=== PATIENT | female | born 1970 | race Two or more races ===

== ENCOUNTER 2020-03-30 15:08 | Outpatient (REF) | payer OTHER, SELFPAY | END 2020-03-30 15:09 | disposition home or self-care (01) | LOC: HO.LAB 15:08 | PROVIDERS: PCP Internal Medicine; Visit Provider Internal Medicine | DX: Z20.828 Contact with and (suspected) exposure to other viral communicable diseases (principal) | CPT/HCPCS: 87635 ==

== ENCOUNTER 2020-06-23 13:29 | Outpatient (REF) | payer OTHER, SELFPAY ==
[2020-06-23 17:15] LABS: Glucose Urine UA NEG (NEG); Leukocyte Esterase Urine NEG (NEG); Nitrite Urine NEG (NEG); PH 7.5 (5.0-8.0); Specific Gravity - Urine 1.015 (1.005-1.025); Urine Blood 2+ (NEG); Urine Ketones NEG (NEG); Urine Protein NEG (NEG-TRACE)
[2020-06-23 17:21] LABS: Appearance Urine CLEAR; Color Urine YELLOW
[2020-06-23 17:48] LABS: Mucus Urine 1+ /LPF; Squamous Epithelial Cell Urine 1+ /LPF; WBC Urine 0-2 /HPF (0-4)
[2020-06-24 09:14] LABS: BV Int Neg Control Negative (Negative); BV Int Pos Control Positive (Positive)
[2020-06-24 21:32] LABS: C. trachomatis RNA TMA NOT DETECTED (NOT DETECTED); N. gonorrhoeae RNA TMA NOT DETECTED (NOT DETECTED)
[2020-07-12 21:52] LABS: HPV mRNA E6/E7 rflx Not Detected (Not Detected)
== END 2020-06-23 13:30 | disposition home or self-care (01) ==
LOC: HO.LAB 13:29
PROVIDERS: PCP Internal Medicine; Visit Provider Advanced Practice Midwife
DX: Z01.419 Encounter for gynecological examination (general) (routine) without abnormal findings (principal); L85.3 Xerosis cutis; R30.0 Dysuria; N95.1 Menopausal and female climacteric states; B37.3 Candidiasis of vulva and vagina; Z20.2 Contact with and (suspected) exposure to infections with a predominantly sexual mode of transmission
CPT/HCPCS: 36415; 81001; 81003; 87480; 87491; 87510; 87591; 87624; 87660; 88141; 88142

== ENCOUNTER 2020-08-02 16:25 | Emergency (ER) | payer OTHER, SELFPAY | END 2020-08-02 18:24 | disposition left against medical advice (07) | PROVIDERS: Emergency Provider Emergency Medicine; PCP Internal Medicine | DX: R51.9 Headache, unspecified (principal); M79.10 Myalgia, unspecified site ==

== ENCOUNTER 2020-09-10 15:51 | Emergency (ER) | payer OTHER, SELFPAY ==
[2020-09-10 16:16] VITALS: BP 145/100; PULSE 94; RESP 16; TEMP 37.3; O2SAT 97; BMI 27.3
[2020-09-10 16:24] LABS: COVID-19 Test Positive (Negative); IDNOW Serial# 9DD0AD1C
== END 2020-09-10 19:02 | disposition left against medical advice (07) ==
PROVIDERS: Emergency Provider Emergency Medicine; PCP Internal Medicine
DX: Z20.822 Contact with and (suspected) exposure to COVID-19 (principal)
CPT/HCPCS: 36415; 87635; 99282

== ENCOUNTER 2020-09-22 20:11 | Emergency (ER) | payer OTHER, SELFPAY ==
--- NOTE | ~2020-09-22 | XR_ITS ---
EXAMINATION: XR CHEST CLINICAL INFORMATION: Chest pain COMPARISON: 12/24/2014 TECHNIQUE: Frontal view of the chest was obtained. FINDINGS: No significant abnormality is noted involving the heart, lungs, mediastinum, bony thorax or soft tissues. Again noted are calcified granulomas in the right upper lobe. XR/XR chest 1V IMPRESSION: Unremarkable examination.
[2020-09-22 20:48] VITALS: BP 148/87; PULSE 89; RESP 20; TEMP 37.3; O2SAT 99; BMI 27.6
--- NOTE | 2020-09-22 21:26 | ECG_ITS ---
Test Reason : SOB Blood Pressure : / mmHG Vent. Rate : 066 BPM Atrial Rate : 066 BPM P-R Int : 142 ms QRS Dur : 082 ms QT Int : 388 ms P-R-T Axes : 056 036 004 degrees QTc Int : 406 ms Normal sinus rhythm Minimal voltage criteria for LVH, may be normal variant Nonspecific ST abnormality Abnormal ECG When compared to the previous EKG of No significant changes seen Referred By: Ayana Beck Electronically Signed By:MARILU MANN MD
--- NOTE | 2020-09-22 21:27 | ED_ITS ---
HPI - Chest Pain General Chief Complaint: Dyspnea Stated Complaint: SOB Time Seen by Provider: 09/22/20 21:26 Source: patient and heritage consultant Mode of arrival: ambulatory History of Present Illness HPI narrative: This is a 49-year-old female with past medical history significant for hypertension, fibromyalgia, asthma who was diagnosed with COVID- 19 on 09/09 in states that she has been having tingling in bilateral upper extremities for over the course of the past 2 weeks but now presents with complaints of sharp, nonradiating, chest pain since yesterday that she states has worsened. It increases with deep inspiration and is associated with dizziness/diaphoresis/SOB/nausea, but she denies any association with exertion or movement. She denies any calf swelling/pain. Patient took a single pill of prednisone that she states she had left over from a prior asthma exacerbation. Related Data Home Medications Medication Instructions Recorded Confirmed cholecalciferol (vitamin D3) 50 50 mcg PO DAILY 03/18/20 08/19/20 mcg (2,000 unit) tablet fenofibrate 54 mg tablet 54 mg PO DAILY 03/18/20 08/19/20 ipratropium 20 mcg-albuterol 100 1 PO QID 03/18/20 08/19/20 mcg/actuation mist for inhalation Previous Rx's Medication Instructions Recorded hydrochlorothiazide 25 mg tablet 25 mg PO DAILY 30 Days #30 tab 05/28/20 tizanidine 4 mg capsule 4 mg PO BEDTIME 20 Days #20 cap 06/08/20 albuterol sulfate 90 mcg/actuation 2 puff PO Q4H PRN 30 Days #8.5 g 06/15/20 aerosol inhaler albuterol sulfate 90 mcg/actuation 2 puff INHALATION Q4-6H PRN 30 07/02/20 aerosol inhaler Days #18 g kbwiprdrjx-hxghbzcxwxoqh-rhgmgjzt 1 tab PO ONCE PRN 30 Days #30 tab 08/31/20 50 mg-325 mg-40 mg tablet clonazepam 0.5 mg tablet 0.5 mg PO BID PRN 30 Days #60 tab 08/31/20 tramadol 50 mg tablet 50 mg PO Q8H PRN 30 Days #90 tab 09/10/20 ipratropium 20 mcg-albuterol 100 1 puff PO QID 30 Days #4 ml 09/14/20 mcg/actuation mist for inhalation Allergies Allergy/AdvReac Type Severity Reaction Status Date / Time amitriptyline Allergy Unknown headache Verified 07/22/20 16:37 ibuprofen [From Motrin] Allergy Unknown ITCHY RASH Verified 07/22/20 16:37 Motrin Allergy Unknown rash/itchy, Verified 07/22/20 16:37 itchy rash Review of Systems Review of Systems: Pertinent positives and negatives as stated in HPI 10 point review of systems is otherwise negative. PMFSH Past Medical History Source: nursing notes reviewed Medical History Anxiety Cervical cancer screening Depression Dyslipidemia Epigastric pain Essential hypertension Fibromyalgia GERD (gastroesophageal reflux disease) HTN (hypertension) Migraine Right lower quadrant pain Surgical History H/O LEEP H/O tubal ligation History of breast lump/mass excision History of lithotripsy Family History Family History Father Myocardial infarction Mother Lung cancer Brother Liver cancer Maternal Grandfather Stomach cancer Maternal Grandmother No problems noted. Social History Social History Alcohol intake: never Smoking Status: Current some day smoker Tobacco Type: Cigarette Cigarettes Per Day: 3 Advance Directives: No Advance Directives Information Provided: No Gender identity: female Physical Exam Vital Signs: Vital Signs: Last Vital Signs Temp 98.8 F 09/22/20 22:12 Pulse 76 09/22/20 22:12 Resp 14 09/22/20 22:12 BP 124/82 09/22/20 22:12 Pulse Ox 95 09/22/20 22:12 Body Mass Index 27.6 VITAL SIGNS: Reviewed. GENERAL: Well developed, well nourished, in no acute distress. HEAD: Normocephalic/atraumatic, EYES: PERRLA, EOMI EARS: Ext canals without abnormality NOSE: Nares patent bilateral OROPHARYNX: no oral lesions noted, posterior pharynx clear NECK: Supple, no adenopathy LUNGS: Normal breath sounds, no wheezing, no tachypnea SpO2<99> CARDIOVASCULAR: Regular rate and rhythm without noted murmurs ABDOMEN: Soft, non-tender, non-distended with bowel sounds. NEUROLOGIC: Alert and oriented x 4. Course Course Course Narrative: 49-year-old female with history and clinical presentation most suggestive of GERD and may be pleurisy but no evidence to suggest cardiopulmonary in etiology to include low clinical suspicion for PE. However, will evaluate for cardiopulmonary etiology. Review of all investigations other than a mild hypokalemia which was treated with 60 mEq of potassium chloride and instructions to follow-up with her primary care provider and to continue with all medications for her underlying medical conditions. Of all results and findings at bedside and discharged in stable condition. MDM - Chest Pain Lab Data Result diagrams: 09/22/20 21:49 09/22/20 21:49 Labs: Lab Results 09/22/20 09/22/20 09/22/20 Range/Units 21:49 21:49 21:49 WBC 12.8 H (4.8-10.8) X10*3/uL RBC 4.75 (4.20-5.50) X10*6/uL Hgb 12.6 (12.0-16.0) g/dl Hct 39.6 (37-47) % MCV 83.4 (80-98) fL MCH 26.5 L (27.0-33.0) pg MCHC 31.8 (31.0-35.0) g/dl RDW 14.5 (11.0-16.0) % Plt Count 283 (160-400) X10*3/uL MPV 9.9 (9.4-12.3) fL Immature Gran % (Auto) 0.5 H (0.0-0.4) % Neut % (Auto) 76.7 H (45-73) % Lymph % (Auto) 17.8 L (20-40) % Cobb % (Auto) 4.2 (2-11) % Eos % (Auto) 0.5 (0-4) % Baso % (Auto) 0.3 (0-2) % Lymph # (Auto) 2.3 (1.2-4.9) X10*3/uL Cobb # (Auto) 0.5 (0.1-1.2) X10*3/uL Eos # (Auto) 0.1 (0.0-0.4) X10*3/uL Baso # (Auto) 0.0 (0.0-0.2) X10*3/uL Abs Immat Gran (auto) 0.06 H (0.00-0.03) X10*3/uL Absolute Neuts (auto) 9.8 H (2.0-8.3) X10*3/uL Absolute Nucleated RBC 0.000 (0.0-0.012) X10*3/uL Nucleated RBC % (auto) 0.0 (0.0-0.2) /100WBC Sodium 140 (135-145) mmol/L Potassium 3.0 L (3.3-5.1) mmol/L Chloride 101 (96-108) mmol/L Carbon Dioxide 29 (22-29) mmol/L Anion Gap 13 (12-20) BUN 21 H (9-16) mg/dL Creatinine 1.06 (0.5-1.4) mg/dL Estim Creat Clear Calc 61.4 Estimated GFR 55 Random Glucose 106 (60-115) mg/dL Calcium 8.8 (8.4-10.2) mg/dL Total Bilirubin 0.2 (0.0-1.0) mg/dL AST 14 (5-31) U/L ALT 23 (0-31) U/L Alkaline Phosphatase 117 (39-117) U/L Troponin I High Sens < 3.5 (<3.5-17.0) ng/L Total Protein 7.5 (6.5-8.0) g/dL Albumin 4.1 (3.5-5.0) g/dL ECG Data ECG #1: Attestation: I personally reviewed and interpreted this ECG as follows: Prior ECG tracings: not available for review (Computers not linked) Interpretation: Normal sinus rhythm, HR -66, no evidence of acute ischemia, AR/QRS/QTC are within normal limits. Discharge Plan Discharge Clinical Impression: Atypical chest pain, Pleurisy, Hypokalemia Patient Disposition: Home, Self-Care Instructions: Chest Wall Pain (ED), Pleurisy (ED), Hypokalemia (ED) Additional Instructions: 1. Reanude todos los medicamentos caseros seg?n lo prescrito. 2. Yael un seguimiento con lopez proveedor de atenci?n primaria en los pr?ximos 1-2 d?as llamando al consultorio. 3. Utilice Tylenol / ibuprofeno de venta jess brown se indica en el empaque exterior para ron s?ntomas persistentes. No dude en regresar al departamento de emergencias si desarrolla un empeoramiento talya de ron s?ntomas. Prescriptions: No Action hydrochlorothiazide 25 mg tablet 25 mg PO DAILY 30 Days Qty: 30 RF: 11 albuterol sulfate 90 mcg/actuation HFA aerosol inhaler 2 puff PO Q4H PRN (Reason: bronchospasm) 30 Days Qty: 8.5 RF: 6 albuterol sulfate [Ventolin HFA] 90 mcg/actuation HFA aerosol inhaler 2 puff inhalation Q4-6H PRN (Reason: bronchospasm) 30 Days Qty: 18 RF: 6 clonazepam 0.5 mg tablet 0.5 mg PO BID PRN (Reason: anxiety) 30 Days Qty: 60 RF: 0 truuwavlzr-bqvilksfchmlm-jvrv 50-325-40 mg tablet 1 tab PO ONCE PRN (Reason: pain) 30 Days Qty: 30 RF: 0 tramadol 50 mg tablet 50 mg PO Q8H PRN (Reason: pain) 30 Days Qty: 90 RF: 0 Combivent Respimat 20-100 mcg/actuation mist 1 puff PO QID 30 Days Qty: 4 RF: 3 tizanidine 4 mg capsule 4 mg PO BEDTIME 20 Days Qty: 20 RF: 0 cholecalciferol (vitamin D3) 50 mcg (2,000 unit) tablet 50 mcg PO DAILY RF: 0 fenofibrate 54 mg tablet 54 mg PO DAILY RF: 0 Combivent Respimat 20-100 mcg/actuation mist 1 PO QID RF: 0 Referrals: Neyda Foster MD [Primary Care Provider] - 2 days (Re-evaluation after seen for pleuritic type chest pain and negative workup (mild leukocytosis likely se condary to patient taking a single tablet of prednisone). Found to be mildly hypokalemic.) Print Language: Chinese
[2020-09-22 21:53] LABS: MANUAL DIFF FLAG NO
[2020-09-22 21:56] LABS: Basophils Percent Auto 0.3 % (0-2); Eosinophils Absolute Auto 0.1 X10*3/uL (0.0-0.4); Eosinophils Percent Auto 0.5 % (0-4); Hematocrit 39.6 % (37-47); Hemoglobin 12.6 g/dl (12.0-16.0); Imm Gran Abs Auto 0.06 X10*3/uL (0.00-0.03); Imm Gran Pct Auto 0.5 % (0.0-0.4); Lymphocytes Absolute Auto 2.3 X10*3/uL (1.2-4.9); Lymphocytes Percent Auto 17.8 % (20-40); Mean Corpuscular HGB Conc 31.8 g/dl (31.0-35.0); Mean Corpuscular Hemoglobin 26.5 pg (27.0-33.0); Mean Corpuscular Volume 83.4 fL (80-98); Mean Platelet Volume 9.9 fL (9.4-12.3); Monocytes Absolute Auto 0.5 X10*3/uL (0.1-1.2); Monocytes Percent Auto 4.2 % (2-11); Neutrophils Absolute Auto 9.8 X10*3/uL (2.0-8.3); Neutrophils Percent Auto 76.7 % (45-73); Platelet Count 283 X10*3/uL (160-400); Red Blood Count 4.75 X10*6/uL (4.20-5.50); Red Cell Distribution Width 14.5 % (11.0-16.0); White Blood Count 12.8 X10*3/uL (4.8-10.8)
[2020-09-22 22:12] VITALS: BP 124/82; PULSE 76; RESP 14; TEMP 37.1; O2SAT 95
[2020-09-22 22:24] LABS: Alanine Aminotransferase 23 U/L (0-31); Albumin Level 4.1 g/dL (3.5-5.0); Alkaline Phosphatase 117 U/L (39-117); Anion Gap 13 (12-20); Aspartate Amino Transferase 14 U/L (5-31); Bilirubin Total 0.2 mg/dL (0.0-1.0); Blood Urea Nitrogen 21 mg/dL (9-16); Calcium 8.8 mg/dL (8.4-10.2); Carbon Dioxide 29 mmol/L (22-29); Chloride 101 mmol/L (96-108); Creatinine Clr Calc Pharmacy 61.4; Estimated Glomerular Filt Rate 55; Glucose Random 106 mg/dL (60-115); Sodium 140 mmol/L (135-145); Total Protein 7.5 g/dL (6.5-8.0)
[2020-09-22 22:30] LABS: Troponin-I High Sensitivity < 3.5 ng/L (<3.5-17.0)
[2020-09-22] MEDS: Potassium Chloride ER 20 MEQ TAB.ER.PRT 60 MEQ PO (23:26)
== END 2020-09-22 23:26 | disposition home or self-care (01) ==
PROVIDERS: Emergency Provider Student in an Organized Health Care Education/Training Program; PCP Internal Medicine
DX: R06.02 Shortness of breath (principal); R09.1 Pleurisy; E87.6 Hypokalemia; F17.210 Nicotine dependence, cigarettes, uncomplicated; Z71.6 Tobacco abuse counseling; Z79.899 Other long term (current) drug therapy
CPT/HCPCS: 36415; 71045; 80053; 84484; 85025; 93005; 99283; 99284

== ENCOUNTER 2020-09-27 14:31 | Outpatient (REF) | payer OTHER, SELFPAY | END 2020-09-27 14:32 | disposition home or self-care (01) | LOC: HO.LAB 14:31 | PROVIDERS: Visit Provider Internal Medicine | DX: Z20.822 Contact with and (suspected) exposure to COVID-19 (principal) | CPT/HCPCS: C9803; U0003; U0005 ==

== ENCOUNTER 2020-10-04 11:32 | Outpatient (REF) | payer OTHER, SELFPAY ==
[2020-10-04 12:08] LABS: COVID-19 Test Negative (Negative)
== END 2020-10-04 11:33 | disposition home or self-care (01) ==
LOC: HO.LAB 11:32
PROVIDERS: Visit Provider Internal Medicine
DX: Z20.822 Contact with and (suspected) exposure to COVID-19 (principal)
CPT/HCPCS: 36415; 87635; C9803

== ENCOUNTER 2020-12-08 22:58 | Emergency (ER) | payer OTHER, SELFPAY ==
--- NOTE | ~2020-12-08 | XR_ITS ---
EXAMINATION: XR CHEST, 2 VIEWS CLINICAL INFORMATION: Chest wall pain. COMPARISON: 12/24/2014 TECHNIQUE: PA and lateral views of the chest were obtained. FINDINGS: A calcified granuloma is again seen in the right lung anterolateral aspect of the midlung. Calcified granuloma is also suspected in the left lung apex.. No consolidation, pneumothorax, or pleural effusion. Cardiac and mediastinal contours are normal. Pulmonary vasculature is unremarkable. Trachea is midline. Osseous structures are unremarkable. XR/XR chest 2V IMPRESSION: No acute cardiopulmonary findings. No acute chest wall findings.
[2020-12-08 23:31] VITALS: BP 135/95; PULSE 86; RESP 20; TEMP 36.2; O2SAT 97; BMI 28.3
[2020-12-09 01:32] VITALS: BP 145/90; PULSE 72; RESP 16; TEMP 36.4; O2SAT 98
--- NOTE | 2020-12-09 01:58 | ED_ITS ---
HPI - General Adult General Chief complaint: Nausea/Vomiting/Diarrhea Stated complaint: not feeling well Time Seen by Provider: 12/09/20 01:34 Source: patient Mode of arrival: ambulatory Limitations: no limitations History of Present Illness HPI narrative: 49-year-old female who presents emergency department for evaluation of chest pain. The patient states that she had a gradual onset of pain this morning. She states that she gets inflammation in her chest and she feels like she has inflammation of her chest joints. She describes the pain as a constant, pressure-like pain which is worse with movement and worse with breathing. The pain is 7/10 at its worst. She states she has had similar pain in the past but she believes that the pain is now more frequent since she had COVID-19 infection in August of 2020. She denied fever, chills, cough. She states she does feel short of breath but denied dyspnea on exertion. She had nausea with no vomiting. The patient took Tylenol with no relief of her pain. Related Data Home Medications Medication Instructions Recorded Confirmed cholecalciferol (vitamin D3) 50 50 mcg PO DAILY 03/18/20 11/04/20 mcg (2,000 unit) tablet fenofibrate 54 mg tablet 54 mg PO DAILY 03/18/20 11/04/20 ipratropium 20 mcg-albuterol 100 1 PO QID 03/18/20 11/04/20 mcg/actuation mist for inhalation Previous Rx's Medication Instructions Recorded hydrochlorothiazide 25 mg tablet 25 mg PO DAILY 30 Days #30 tab 05/28/20 tizanidine 4 mg capsule 4 mg PO BEDTIME 20 Days #20 cap 06/08/20 albuterol sulfate 90 mcg/actuation 2 puff PO Q4H PRN 30 Days #8.5 g 06/15/20 aerosol inhaler albuterol sulfate 90 mcg/actuation 2 puff INHALATION Q4-6H PRN 30 07/02/20 aerosol inhaler Days #18 g yzsuoujucl-cceocwjiqxcmk-vydwvgvq 1 tab PO ONCE PRN 30 Days #30 tab 08/31/20 50 mg-325 mg-40 mg tablet ipratropium 20 mcg-albuterol 100 1 puff PO QID 30 Days #4 ml 09/14/20 mcg/actuation mist for inhalation escitalopram oxalate 10 mg tablet 10 mg PO DAILY 90 Days #90 tab 10/05/20 clonazepam 0.5 mg tablet 0.5 mg PO BID PRN 30 Days #60 tab 10/22/20 tramadol 50 mg tablet 50 mg PO Q8H PRN 30 Days #90 tab 12/06/20 amoxicillin 1,000 mg PO Q12H 7 Days #28 tab 12/09/20 prednisone 60 mg PO DAILY 5 Days #15 tab 12/09/20 Allergies Allergy/AdvReac Type Severity Reaction Status Date / Time amitriptyline Allergy Intermediate headache Verified 11/04/20 11:07 ibuprofen [From Motrin] Allergy Intermediate ITCHY RASH Verified 11/04/20 11:07 Review of Systems Review of Systems: Yes all other systems are reviewed and are negative [facility] Past Medical History [facility] Narrative: Social history: The patient smokes cigarettes daily, she smoked for 15 years. She denies alcohol use. She denies drug use. Medical History Anxiety Cervical cancer screening Depression Dyslipidemia Epigastric pain Essential hypertension Fibromyalgia GERD (gastroesophageal reflux disease) HTN (hypertension) Leg pain, bilateral Migraine Right lower quadrant pain Surgical History H/O LEEP H/O tubal ligation History of breast lump/mass excision History of lithotripsy Family History Family History Father Myocardial infarction Mother Lung cancer Brother Liver cancer Maternal Grandfather Stomach cancer Maternal Grandmother No problems noted. Social History Social History Alcohol intake: never Patient Tobacco Use Status: Current someday Tobacco user Cigarettes Per Day: 3 Use of substances other than those prescribed or required for medical reasons: No Advance Directives: No Advance Directives Information Provided: No Gender identity: female Physical Exam Vital Signs: Vital Signs: Last Vital Signs Temp 97.5 F 12/09/20 01:32 Pulse 72 12/09/20 01:32 Resp 16 12/09/20 01:32 BP 145/90 H 12/09/20 01:32 Pulse Ox 98 12/09/20 01:32 Body Mass Index 28.3 Const: General: cooperative and healthy appearing Orientation/consciousness: oriented to person and oriented to place Limitations: no limitations HENMT: Head: Yes normal to inspection, Yes normocephalic and Yes atraumatic Ears: external ears normal General nose exam: Normal external nose present Face and sinus: Yes normal facial exam Mouth: Normal oral and palatal mucosa present Throat: Yes posterior oropharynx normal Eyes: Periorbital: periorbital findings normal Eyelids: Yes eyelids normal Conjunctivae: conjunctivae normal Sclerae: sclerae normal Corneas: corneas normal Pupils: Equal, round and reactive pupils present Direct Ophthalmoscopy: normal light reflex Neck: Neck: Yes full ROM, Yes no lymphadenopathy, Yes no meningeal signs, Yes trachea midline and Yes supple Chest: Chest palpation & inspection: normal inspection of the chest and tenderness (Bilateral costochondral joint tenderness) Resp: Effort & Inspection: normal respiratory effort and able to speak in complete sentences Auscultation: clear to auscultation bilaterally Cardio: Rate: regular rate Rhythm: regular rhythm Heart sounds: S1 normal heart sound present, S2 normal heart sound present and no murmurs GI: Inspection: Yes normal to inspection Palpation (GI): Soft to palpation, nontender, no guarding, not rigid and No hepatosplenomegaly present : General: Yes no CVA tenderness Back/Spine/Pelvis: Back: no CVA tenderness Cervical Spine: normal cervical lordosis Thoracic/Lumbar Spine: thoracic and lumbar spine normal to inspection Skin: Lesions: no lesions Rashes: no rashes Wounds: no wounds Neuro: General: oriented to person, oriented to place and no meningeal signs Cranial nerves: Yes CN's II-XII intact bilaterally and Yes Equal, round and reactive pupils present Cognition (Neuro): normal cognition Motor exam (neuro): 5/5 motor strength present throughout Extrem: General: Yes normal to inspection and Yes full ROM Psych: Appearance: well kempt Mental Status: mental status grossly normal Speech and movement: Normal speech and movement present Affect: normal affect Attitude: cooperative Thought process: Normal thought process present Thought content: Normal thought content present Course Course Course Narrative: 49-year-old female who presents emergency department for evaluation of chest pain that came on gradually this morning, pain is worse with breathing with movement. She is feeling short of breath. Vital signs did reveal some slight hypertension with a blood pressure of 135/95 otherwise unremarkable. Examination did reveal anterior chest wall tenderness mainly over the costochondral joints. I will obtain a chest x-ray on the patient. The patient was treated with morphine 4 mg IM for her pain. 0354: The patient's chest x-ray was unremarkable. COVID-19 test was negative. Patient got some improvement with the morphine. Patient states that her chest pain has been improved in the past with oral prednisone therefore she was given prednisone 60 mg orally and started on prednisone 60 mg once a day for 5 days. The patient's right ear does appear to be infected and she most likely has otitis media. Patient will be treated with amoxicillin 1000 mg twice a day for 7 days. Medical Decision Making Lab Data Labs: Lab Results 12/09/20 Range/Units 01:36 COVID-19 ([facility]) Negative (Negative) COVID-19 Clin Com See Note Discharge Plan Discharge Clinical Impression: Acute costochondritis Otitis media Qualifiers: Chronicity: acute Laterality: right Patient Disposition: Home, Self-Care Instructions: Costochondritis (ED), Ear Infection (ED) Additional Instructions: Your chest x-ray was normal. Your COVID-19 test was negative. Your chest pain is most likely caused by inflammation of your chest wall. Take prednisone 20 mg tablets, 3 pills once a day for 5 days, this is strong anti-inflammatory medication and should improve your pain. Your right ear looks infected. Take amoxicillin 500 mg pills, 2 pills once a day for 7 days. Insert follow-up return Prescriptions: New prednisone 20 mg tablet 60 mg PO DAILY 5 Days Qty: 15 RF: 0 amoxicillin 500 mg tablet 1,000 mg PO Q12H 7 Days Qty: 28 RF: 0 No Action hydrochlorothiazide 25 mg tablet 25 mg PO DAILY 30 Days Qty: 30 RF: 11 albuterol sulfate 90 mcg/actuation HFA aerosol inhaler 2 puff PO Q4H PRN (Reason: bronchospasm) 30 Days Qty: 8.5 RF: 6 albuterol sulfate [Ventolin HFA] 90 mcg/actuation HFA aerosol inhaler 2 puff inhalation Q4-6H PRN (Reason: bronchospasm) 30 Days Qty: 18 RF: 6 boexqynogt-blomlygfxepbk-auej 50-325-40 mg tablet 1 tab PO ONCE PRN (Reason: pain) 30 Days Qty: 30 RF: 0 Combivent Respimat 20-100 mcg/actuation mist 1 puff PO QID 30 Days Qty: 4 RF: 3 clonazepam 0.5 mg tablet 0.5 mg PO BID PRN (Reason: anxiety) 30 Days Qty: 60 RF: 0 tramadol 50 mg tablet 50 mg PO Q8H PRN (Reason: pain) 30 Days Qty: 90 RF: 0 tizanidine 4 mg capsule 4 mg PO BEDTIME 20 Days Qty: 20 RF: 0 escitalopram oxalate 10 mg tablet 10 mg PO DAILY 90 Days Qty: 90 RF: 1 cholecalciferol (vitamin D3) 50 mcg (2,000 unit) tablet 50 mcg PO DAILY RF: 0 fenofibrate 54 mg tablet 54 mg PO DAILY RF: 0 Combivent Respimat 20-100 mcg/actuation mist 1 PO QID RF: 0
[2020-12-09] MEDS: Morphine Sulfate 4 MG/ML CARTRIDGE IM (02:09)
[2020-12-09 02:11] LABS: COVID-19 Test Negative (Negative); IDNOW Serial# 9DD0AD1C
[2020-12-09] MEDS: predniSONE 20 MG TABLET 60 MG PO (04:16)
[2020-12-09] MEDS: Amoxicillin 500 MG CAPSULE 1000 MG PO (04:16)
== END 2020-12-09 04:24 | disposition home or self-care (01) ==
PROVIDERS: Emergency Provider Emergency Medicine Emergency Medical Services; PCP Internal Medicine
DX: M94.0 Chondrocostal junction syndrome [Tietze] (principal); I10 Essential (primary) hypertension; Z79.899 Other long term (current) drug therapy; Z20.822 Contact with and (suspected) exposure to COVID-19
CPT/HCPCS: 36415; 71046; 87635; 96372; 99284; J2270

== ENCOUNTER 2021-01-03 21:14 | Emergency (ER) | payer OTHER, SELFPAY ==
--- NOTE | 2021-01-03 | ECG_ITS ---
Test Reason : DIZZY Blood Pressure : / mmHG Vent. Rate : 082 BPM Atrial Rate : 082 BPM P-R Int : 152 ms QRS Dur : 078 ms QT Int : 384 ms P-R-T Axes : 047 020 012 degrees QTc Int : 448 ms Normal sinus rhythm Possible Left atrial enlargement Nonspecific ST abnormality Abnormal ECG When compared with ECG of 22-SEP-2020 21:41, No significant change was found Referred By: Generic ED Physician Electronically Signed By:MARILU MANN MD
[2021-01-03 21:48] VITALS: BP 128/89; PULSE 83; RESP 18; TEMP 36.7; O2SAT 96; BMI 26.0
--- NOTE | 2021-01-03 22:47 | ED_ITS ---
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 Otherwise, denies any speech/auditory/visual changes. Related Data Home Medications Medication Instructions Recorded Confirmed cholecalciferol (vitamin D3) 50 50 mcg PO DAILY 03/18/20 11/04/20 mcg (2,000 unit) tablet fenofibrate 54 mg tablet 54 mg PO DAILY 03/18/20 11/04/20 ipratropium 20 mcg-albuterol 100 1 PO QID 03/18/20 11/04/20 mcg/actuation mist for inhalation Previous Rx's Medication Instructions Recorded hydrochlorothiazide 25 mg tablet 25 mg PO DAILY 30 Days #30 tab 05/28/20 tizanidine 4 mg capsule 4 mg PO BEDTIME 20 Days #20 cap 06/08/20 albuterol sulfate 90 mcg/actuation 2 puff PO Q4H PRN 30 Days #8.5 g 06/15/20 aerosol inhaler albuterol sulfate 90 mcg/actuation 2 puff INHALATION Q4-6H PRN 30 07/02/20 aerosol inhaler Days #18 g uavqlcoqcc-kjrkkyqfszvqh-mawizfrt 1 tab PO ONCE PRN 30 Days #30 tab 08/31/20 50 mg-325 mg-40 mg tablet ipratropium 20 mcg-albuterol 100 1 puff PO QID 30 Days #4 ml 09/14/20 mcg/actuation mist for inhalation escitalopram oxalate 10 mg tablet 10 mg PO DAILY 90 Days #90 tab 10/05/20 tramadol 50 mg tablet 50 mg PO Q8H PRN 30 Days #90 tab 12/06/20 amoxicillin 1,000 mg PO Q12H 7 Days #28 tab 12/09/20 prednisone 60 mg PO DAILY 5 Days #15 tab 12/09/20 clonazepam 0.5 mg tablet 0.5 mg PO BID PRN 30 Days #60 tab 12/30/20 Allergies Allergy/AdvReac Type Severity Reaction Status Date / Time amitriptyline Allergy Intermediate headache Verified 11/04/20 11:07 ibuprofen [From Motrin] Allergy Intermediate ITCHY RASH Verified 11/04/20 11:07 Review of Systems Review of Systems: Pertinent positives and negatives as stated in HPI 10 point review of systems is otherwise negative. [facility] Past Medical History Source: nursing notes reviewed Medical History Anxiety Cervical cancer screening Depression Dyslipidemia Epigastric pain Essential hypertension Fibromyalgia GERD (gastroesophageal reflux disease) HTN (hypertension) Leg pain, bilateral Migraine Right lower quadrant pain Surgical History H/O LEEP H/O tubal ligation History of breast lump/mass excision History of lithotripsy Family History Family History Father Myocardial infarction Mother Lung cancer Brother Liver cancer Maternal Grandfather Stomach cancer Maternal Grandmother No problems noted. Social History Social History Alcohol intake: never Patient Tobacco Use Status: Current someday Tobacco user Cigarettes Per Day: 3 Use of substances other than those prescribed or required for medical reasons: No Advance Directives: No Advance Directives Information Provided: Yes Patient : No Gender identity: female Physical Exam Vital Signs: Vital Signs: Last Vital Signs Temp 98.0 F 01/04/21 00:00 Pulse 74 01/04/21 00:00 Resp 18 01/04/21 00:00 BP 130/83 01/04/21 00:00 Pulse Ox 96 01/04/21 00:00 Body Mass Index 26.0 VITAL SIGNS: Reviewed. GENERAL: Well developed, well nourished, in no acute distress. HEAD: Normocephalic/atraumatic EYES: PERRLA, EOMI intact without pain, no nystagmus/pallor/icterus noted EARS: Ext canals without abnormality, TMs non-bulging and non-erythematous NOSE: Nares patent bilateral OROPHARYNX: no oral lesions noted, posterior pharynx clear and non-erythematous without noted tonsillar enlargement/erythema/exudates NECK: Supple, no adenopathy LUNGS: Normal breath sounds. No adventitious sounds or accessory muscle use. SpO2<96> CARDIOVASCULAR: Regular rate and rhythm without noted murmurs, no JVD or lower extremity edema. ABDOMEN: Soft, non-tender, non-distended with bowel sounds. MUSCULOSKELETAL: No tenderness, deformities, or effusions noted on gross inspection. EXTREMITIES: No cyanosis, clubbing or edema. SKIN: Inspection of the skin reveals no rashes, ulcerations, jaundice, pallor, or petechiae. NEUROLOGIC: Alert and oriented x 4. Strength and sensation to light touch were grossly intact x 4. Course Course Course Narrative: 50-year-old female with history and clinical presentation cons istent with menopausal symptoms. Review of all investigations negative for acute findings to better explain patient's feelings overall fatigue. On re-evaluation patient states she has had improvement of her headache and nausea. She was instructed to follow up with primary care provider. Medical Decision Making Lab Data Result diagrams: 01/03/21 23:22 01/03/21 23:22 Labs: Lab Results 01/03/21 01/03/21 01/03/21 Range/Units 23:22 23:22 23:22 WBC 7.3 (4.8-10.8) X10*3/uL RBC 4.39 (4.20-5.50) X10*6/uL Hgb 12.0 (12.0-16.0) g/dl Hct 36.9 L (37-47) % MCV 84.1 (80-98) fL MCH 27.3 (27.0-33.0) pg MCHC 32.5 (31.0-35.0) g/dl RDW 14.3 (11.0-16.0) % Plt Count 269 (160-400) X10*3/uL MPV 9.7 (9.4-12.3) fL Immature Gran % (Auto) 0.1 (0.0-0.4) % Neut % (Auto) 48.8 (45-73) % Lymph % (Auto) 39.9 (20-40) % [place] % (Auto) 8.1 (2-11) % Eos % (Auto) 2.5 (0-4) % Baso % (Auto) 0.6 (0-2) % Lymph # (Auto) 2.9 (1.2-4.9) X10*3/uL [place] # (Auto) 0.6 (0.1-1.2) X10*3/uL Eos # (Auto) 0.2 (0.0-0.4) X10*3/uL Baso # (Auto) 0.0 (0.0-0.2) X10*3/uL Abs Immat Gran (auto) 0.01 (0.00-0.03) X10*3/uL Absolute Neuts (auto) 3.5 (2.0-8.3) X10*3/uL Absolute Nucleated RBC 0.000 (0.0-0.012) X10*3/uL Nucleated RBC % (auto) 0.0 (0.0-0.2) /100WBC Sodium 142 (135-145) mmol/L Potassium 3.2 L (3.3-5.1) mmol/L Chloride 100 (96-108) mmol/L Carbon Dioxide 32 H (22-29) mmol/L Anion Gap 13 (12-20) BUN 13 (9-16) mg/dL Creatinine 0.94 (0.5-1.4) mg/dL Estim Creat Clear Calc 59.3 Estimated GFR > 60 Random Glucose 97 (60-115) mg/dL Calcium 9.5 D (8.4-10.2) mg/dL Total Bilirubin 0.4 (0.0-1.0) mg/dL AST 21 D (5-31) U/L ALT 18 (0-31) U/L Alkaline Phosphatase 113 (39-117) U/L Total Protein 7.3 (6.5-8.0) g/dL Albumin 4.0 (3.5-5.0) g/dL Urine Color YELLOW Urine Appearance HAZY Urine pH 6.0 (5.0-8.0) Ur Specific [place] 1.020 (1.005-1.025) Urine Protein NEG (NEG-TRACE) MG/DL Urine Glucose (UA) NEG (NEG) MG/DL Urine Ketones NEG (NEG) MG/DL Urine Blood 2+ H (NEG) Urine Nitrite NEG (NEG) Ur Leukocyte Esterase NEG (NEG) Urine RBC 10-14 H (0) /HPF Urine WBC 0-2 (0-4) /HPF Ur Squamous Epith Cells 2+ /LPF Calcium Oxalate Crystal 1+ /LPF Urine Bacteria NONE /LPF Discharge Plan Discharge Clinical Impression: Fatigue, Headache Patient Disposition: Home, Self-Care Instructions: Fatigue (ED), General Headache (ED) Additional Instructions: 1. Reanude todos los medicamentos caseros seg?n lo prescrito. 2. Recomiende hacer un seguimiento con lopez m?dico de atenci?n primaria erica los pr?ximos 2-3 d?as para sabine reevaluaci?n. 3. Recomiende el uso de Tylenol / ibuprofeno de venta jess seg?n sea necesario para los kinga de bryan. Regrese a la román de emergencias por un empeoramiento talya de los s?ntomas. Prescriptions: No Action hydrochlorothiazide 25 mg tablet 25 mg PO DAILY 30 Days Qty: 30 RF: 11 albuterol sulfate 90 mcg/actuation HFA aerosol inhaler 2 puff PO Q4H PRN (Reason: bronchospasm) 30 Days Qty: 8.5 RF: 6 albuterol sulfate [Ventolin HFA] 90 mcg/actuation HFA aerosol inhaler 2 puff inhalation Q4-6H PRN (Reason: bronchospasm) 30 Days Qty: 18 RF: 6 dqsjaqrahf-smxfqsnumzdzc-urec 50-325-40 mg tablet 1 tab PO ONCE PRN (Reason: pain) 30 Days Qty: 30 RF: 0 Combivent Respimat 20-100 mcg/actuation mist 1 puff PO QID 30 Days Qty: 4 RF: 3 tramadol 50 mg tablet 50 mg PO Q8H PRN (Reason: pain) 30 Days Qty: 90 RF: 0 clonazepam 0.5 mg tablet 0.5 mg PO BID PRN (Reason: anxiety) 30 Days Qty: 60 RF: 0 prednisone 20 mg tablet 60 mg PO DAILY 5 Days Qty: 15 RF: 0 amoxicillin 500 mg tablet 1,000 mg PO Q12H 7 Days Qty: 28 RF: 0 tizanidine 4 mg capsule 4 mg PO BEDTIME 20 Days Qty: 20 RF: 0 escitalopram oxalate 10 mg tablet 10 mg PO DAILY 90 Days Qty: 90 RF: 1 cholecalciferol (vitamin D3) 50 mcg (2,000 unit) tablet 50 mcg PO DAILY RF: 0 fenofibrate 54 mg tablet 54 mg PO DAILY RF: 0 Combivent Respimat 20-100 mcg/actuation mist 1 PO QID RF: 0 Referrals: Neyda Foster MD [Primary Care Provider] - 2 days Interventions: ED Discharge Assessment Last Done: 01/04/21 01:01 Print Language: Japanese
[2021-01-03 23:28] LABS: Glucose Urine UA NEG (NEG); Leukocyte Esterase Urine NEG (NEG); Nitrite Urine NEG (NEG); Urine Blood 2+ (NEG); Urine Ketones NEG (NEG); Urine Protein NEG (NEG-TRACE)
[2021-01-03 23:29] LABS: Appearance Urine HAZY; Basophils Percent Auto 0.6 % (0-2); Color Urine YELLOW; Eosinophils Absolute Auto 0.2 X10*3/uL (0.0-0.4); Eosinophils Percent Auto 2.5 % (0-4); Hematocrit 36.9 % (37-47); Imm Gran Abs Auto 0.01 X10*3/uL (0.00-0.03); Imm Gran Pct Auto 0.1 % (0.0-0.4); Lymphocytes Absolute Auto 2.9 X10*3/uL (1.2-4.9); Lymphocytes Percent Auto 39.9 % (20-40); MANUAL DIFF FLAG NO; Mean Corpuscular HGB Conc 32.5 g/dl (31.0-35.0); Mean Corpuscular Hemoglobin 27.3 pg (27.0-33.0); Mean Corpuscular Volume 84.1 fL (80-98); Mean Platelet Volume 9.7 fL (9.4-12.3); Monocytes Absolute Auto 0.6 X10*3/uL (0.1-1.2); Monocytes Percent Auto 8.1 % (2-11); Neutrophils Absolute Auto 3.5 X10*3/uL (2.0-8.3); Neutrophils Percent Auto 48.8 % (45-73); Platelet Count 269 X10*3/uL (160-400); Red Blood Count 4.39 X10*6/uL (4.20-5.50); Red Cell Distribution Width 14.3 % (11.0-16.0); White Blood Count 7.3 X10*3/uL (4.8-10.8)
[2021-01-03 23:43] LABS: Calcium Oxalate Crystals Urine 1+ /LPF; Squamous Epithelial Cell Urine 2+ /LPF; WBC Urine 0-2 /HPF (0-4)
[2021-01-03 23:48] VITALS: BP 130/79; BP 131/90; PULSE 73; PULSE 80
[2021-01-03 23:49] VITALS: BP 130/83; PULSE 74
[2021-01-04] VITALS: BP 130/83; PULSE 74; RESP 18; TEMP 36.7; O2SAT 96
[2021-01-04 00:04] LABS: Alanine Aminotransferase 18 U/L (0-31); Alkaline Phosphatase 113 U/L (39-117); Anion Gap 13 (12-20); Aspartate Amino Transferase 21 U/L (5-31); Bilirubin Total 0.4 mg/dL (0.0-1.0); Blood Urea Nitrogen 13 mg/dL (9-16); Calcium 9.5 mg/dL (8.4-10.2); Carbon Dioxide 32 mmol/L (22-29); Chloride 100 mmol/L (96-108); Creatinine Clr Calc Pharmacy 59.3; Estimated Glomerular Filt Rate > 60; Glucose Random 97 mg/dL (60-115); Potassium 3.2 mmol/L (3.3-5.1); Sodium 142 mmol/L (135-145); Total Protein 7.3 g/dL (6.5-8.0)
== END 2021-01-04 01:51 | disposition home or self-care (01) ==
PROVIDERS: Emergency Provider Student in an Organized Health Care Education/Training Program; PCP Internal Medicine
DX: R53.83 Other fatigue (principal); R51.9 Headache, unspecified; I10 Essential (primary) hypertension; Z79.899 Other long term (current) drug therapy
CPT/HCPCS: 36415; 80053; 81001; 85025; 93005; 99284; 99285

== ENCOUNTER 2021-01-13 20:41 | Emergency (ER) | payer OTHER, SELFPAY ==
--- NOTE | 2021-01-13 | ECG_ITS ---
Test Reason : CHEST PAIN Blood Pressure : / mmHG Vent. Rate : 082 BPM Atrial Rate : 082 BPM P-R Int : 156 ms QRS Dur : 078 ms QT Int : 390 ms P-R-T Axes : 050 024 006 degrees QTc Int : 455 ms Normal sinus rhythm Nonspecific ST abnormality Abnormal ECG When compared with ECG of 03-JAN-2021 21:59, No significant change was found Referred By: Generic ED Physician Electronically Signed By:DAVON REVELES
[2021-01-13 20:46] VITALS: BP 159/86; PULSE 86; RESP 18; TEMP 36.6; O2SAT 97; BMI 26.0
== END 2021-01-13 23:00 | disposition left against medical advice (07) ==
PROVIDERS: Emergency Provider Emergency Medicine
DX: R06.02 Shortness of breath (principal); R07.9 Chest pain, unspecified
CPT/HCPCS: 93005; 99283

== ENCOUNTER 2021-03-06 22:31 | Emergency (ER) | payer OTHER, SELFPAY ==
--- NOTE | ~2021-03-06 | CT_ITS ---
EXAMINATION: CT ABDOMEN AND PELVIS WITHOUT CONTRAST CLINICAL INFORMATION: Left flank pain with blood in urine, rule out renal stone COMPARISON: 06/13/2019 TECHNIQUE: Multidetector volumetric imaging was performed from the superior aspect of the liver through the pubic symphysis. Sagittal and coronal reformatted images were obtained on the technologist's workstation. This CT examination was performed using dose optimization techniques as appropriate, variously including the following: *Automated exposure control *Adjustment of mA and/or kV according to patient size (this includes techniques or standardized protocols for targeted exams where dose is matched to indication/reason for exam; i.e. extremities or head) *Use of iterative reconstruction technique DLP: 624 mGy-cm FINDINGS: LUNG BASES: Calcified granulomas are noted. LIVER, GALLBLADDER, AND BILIARY TREE: The liver is normal in size, shape, and attenuation. No focal hepatic lesion or biliary ductal dilatation is present. The gallbladder is unremarkable with no evidence of radiopaque gallstones, gallbladder wall thickening, or obvious pericholecystic inflammatory changes. PANCREAS: Unremarkable. SPLEEN: Unremarkable. ADRENAL GLANDS: Unremarkable. KIDNEYS AND URETERS: The kidneys are normal in size, shape, and attenuation. Redemonstrated right renal cyst; no follow-up recommended. Left extrarenal pelvis noted. No hydronephrosis, hydroureter, or calculi seen. No perinephric stranding. BLADDER: Unremarkable. GASTROINTESTINAL TRACT: The small and large bowel are unremarkable. The appendix is unremarkable. No free fluid or free air is seen. ABDOMINAL WALL: No significant hernia is appreciated. LYMPH NODES: Normal. VASCULAR: Unremarkable. PELVIC VISCERA: Unremarkable. OSSEOUS STRUCTURES: Unremarkable. CT/CT abdomen pelvis wo con IMPRESSION: No acute findings identified in the abdomen/pelvis. No renal or ureteral calculus.
--- NOTE | ~2021-03-06 | XR_ITS ---
EXAMINATION: XR CHEST CLINICAL INFORMATION: Pleuritic chest pain. COMPARISON: Portable chest December 09, 2020 TECHNIQUE: Frontal portable view of the chest was obtained. 11:54 PM FINDINGS: No significant abnormality is noted involving the heart, lungs, mediastinum, bony thorax or soft tissues. XR/XR chest 1V IMPRESSION: Unremarkable examination.
[2021-03-06 22:36] VITALS: BP 139/90; PULSE 88; RESP 16; TEMP 36.6; O2SAT 98; BMI 26.7
--- NOTE | 2021-03-06 23:18 | ECG_ITS ---
Test Reason : PAIN Blood Pressure : / mmHG Vent. Rate : 082 BPM Atrial Rate : 082 BPM P-R Int : 148 ms QRS Dur : 076 ms QT Int : 384 ms P-R-T Axes : 046 023 016 degrees QTc Int : 448 ms Normal sinus rhythm Normal ECG When compared with ECG of 13-JAN-2021 20:53, Nonspecific ST abnormality is no longer Present Referred By: Irena Acosta Electronically Signed By:YOLY GUERRERO
--- NOTE | 2021-03-06 23:21 | ED.BACK ---
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 Patient is complaining of left shoulder, left upper back, left flank area pain mostly with deep breath. Symptoms started about a month ago, no trauma no falls, no fever, no chills. Patient had a history of kidney stones in the past, but no blood in the urine today. Related Data Home Medications Medication Instructions Recorded Confirmed cholecalciferol (vitamin D3) 50 50 mcg PO DAILY 03/18/20 11/04/20 mcg (2,000 unit) tablet fenofibrate 54 mg tablet 54 mg PO DAILY 03/18/20 11/04/20 ipratropium 20 mcg-albuterol 100 1 PO QID 03/18/20 11/04/20 mcg/actuation mist for inhalation Previous Rx's Medication Instructions Recorded hydrochlorothiazide 25 mg tablet 25 mg PO DAILY 30 Days #30 tab 05/28/20 tizanidine 4 mg capsule 4 mg PO BEDTIME 20 Days #20 cap 06/08/20 albuterol sulfate 90 mcg/actuation 2 puff PO Q4H PRN 30 Days #8.5 g 06/15/20 aerosol inhaler albuterol sulfate 90 mcg/actuation 2 puff INHALATION Q4-6H PRN 30 07/02/20 aerosol inhaler (Ventolin HFA) Days #18 g qfichhctvt-aufbqhkzywdxo-lkpoifvw 1 tab PO ONCE PRN 30 Days #30 tab 08/31/20 50 mg-325 mg-40 mg tablet escitalopram oxalate 10 mg tablet 10 mg PO DAILY 90 Days #90 tab 10/05/20 amoxicillin 500 mg tablet 1,000 mg PO Q12H 7 Days #28 tab 12/09/20 prednisone 20 mg tablet 60 mg PO DAILY 5 Days #15 tab 12/09/20 ipratropium 20 mcg-albuterol 100 1 puff PO QID 30 Days #4 ml 01/04/21 mcg/actuation mist for inhalation (Combivent Respimat) tramadol 50 mg tablet 50 mg PO Q8H PRN 30 Days #90 tab 02/04/21 clonazepam 0.5 mg tablet 0.5 mg PO BID PRN 30 Days #60 tab 03/02/21 gabapentin 600 mg tablet 600 mg PO BID #10 tab 03/07/21 (Neurontin) Allergies Allergy/AdvReac Type Severity Reaction Status Date / Time amitriptyline Allergy Intermediate headache Verified 11/04/20 11:07 ibuprofen [From Motrin] Allergy Intermediate ITCHY RASH Verified 11/04/20 11:07 Review of Systems Review of Systems: All other systems are reviewed and are negative Constitutional: Reports as per HPI and Reports no additional constitutional complaints Eyes: Reports as per HPI and Reports no additional eye complaints Reports system reviewed and no additional complaints, except as documented Cardiovascular: Reports as per HPI and Reports no additional cardiovascular complaints Respiratory: Reports as per HPI and Reports no additional respiratory complaints Gastrointestinal: Reports as per HPI and Reports no additional gastrointestinal complaints Genitourinary: Reports no additional female genitourinary complaints Musculoskeletal: Reports no additional musculoskeletal complaints Skin/Breast: Reports system reviewed and no additional complaints, except as docu Psychiatric: Reports no additional psychiatric complaints Endocrine: Reports no additional endocrine complaints Hematologic/Lymphatic: Reports no additional hematologic/lymphatic complaints Allergic/Immunologic: Reports no additional allergic/immunologic complaints Reports system reviewed and no additional complaints, except as documented and Reports Abnormal speech present [facility] Past Medical History Medical History Anxiety Cervical cancer screening Depression Dyslipidemia Epigastric pain Essential hypertension Fibromyalgia GERD (gastroesophageal reflux disease) HTN (hypertension) Leg pain, bilateral Migraine Right lower quadrant pain Surgical History H/O LEEP H/O tubal ligation History of breast lump/mass excision History of lithotripsy Family History Family History Father Myocardial infarction Mother Lung cancer Brother Liver cancer Maternal Grandfather Stomach cancer Maternal Grandmother No problems noted. Social History Social History Alcohol intake: never Patient Tobacco Use Status: Current someday Tobacco user Cigarettes Per Day: 3 Advance Directives: No Gender identity: Female Physical Exam Vital Signs: Vital Signs: Last Vital Signs Temp 98 F 03/06/21 22:36 Pulse 88 03/06/21 22:36 Resp 16 03/07/21 00:58 BP 139/90 H 03/06/21 22:36 Pulse Ox 98 03/06/21 22:36 Body Mass Index 26.7 Vital signs have been reviewed as appeared to be correct. Blood pressure normal. Heart rate normal. Respiration rate normal. Temperature normal. Oxygen saturation normal. Appearance: Alert. Oriented X3. No acute distress. Head: Normal external exam. Normocephalic. Atraumatic. No Goodrich signs noted. No raccoon eyes noted Eyes: PERRLA. EOMI. Conjunctiva and sclera normal. Eyelids normal. ENT: TM's Normal. Pharynx normal. Uvula midline. Moist mucous membranes. No trismus noted. No drooling noted. No muffled voice noted. Neck: Normal inspection. Neck supple. FROM. No adenopathy. Thyroid Normal. No meningeal signs. No neck mass noted. CVS: Normal heart rate and rhythm. Heart sound normal. No murmurs noted. Pulses normal throughout. Respiratory: No respiratory distress. Painless inspiration. Breath sounds normal. No wheezes/rales/rhonchi noted. Chest nontender. No accessory muscle usage noted or decreased air movement noted. Abdomen: Soft and nontender. Bowel sounds normal in all 4 quadrants. No distention noted. No organomegaly noted. No visible injury noted. No palpable pulsatile abdominal mass. Back: No CVA tenderness. Full range of motion noted. Skin: Skin warm and dry. Normal skin color. Normal skin turgor. No rashes/lesions/lacerations noted. Extremities: No lower extremity edema. Extremities exhibit normal range of motion. Extremities nontender. Neuro: Oriented X 3. Cranial nerve exam: II-XII are grossly intact No motor deficit. No sensory deficit. Reflexes normal. Course Course Course Narrative: Assessment and plan. 50-year-old female who presented with back pain for 1 month, physical exam findings are consistent with muscular pain, patient had CT of the abdomen and pelvis rule out kidney stone. Will discharge the patient on muscle relaxant and NSAIDs p.r.n. pain. MDM - Back Pain/Injury Medical Records Attestation: I reviewed the patient's medical records. Lab Data Attestation: I reviewed the patient's lab results. Result diagrams: 03/06/21 23:29 03/06/21 23:29 Labs: Lab Results 03/06/21 03/06/21 03/06/21 Range/Units 23:29 23:29 23:29 WBC 9.8 (4.8-10.8) X10*3/uL RBC 4.67 (4.20-5.50) X10*6/uL Hgb 12.8 (12.0-16.0) g/dl Hct 39.6 (37-47) % MCV 84.8 (80-98) fL MCH 27.4 (27.0-33.0) pg MCHC 32.3 (31.0-35.0) g/dl RDW 14.6 (11.0-16.0) % Plt Count 320 (160-400) X10*3/uL MPV 9.8 (9.4-12.3) fL Immature Gran % (Auto) 0.3 (0.0-0.4) % Neut % (Auto) 55.0 (45-73) % Lymph % (Auto) 35.7 (20-40) % [place] % (Auto) 6.3 (2-11) % Eos % (Auto) 2.2 (0-4) % Baso % (Auto) 0.5 (0-2) % Lymph # (Auto) 3.5 (1.2-4.9) X10*3/uL [place] # (Auto) 0.6 (0.1-1.2) X10*3/uL Eos # (Auto) 0.2 (0.0-0.4) X10*3/uL Baso # (Auto) 0.1 (0.0-0.2) X10*3/uL Abs Immat Gran (auto) 0.03 (0.00-0.03) X10*3/uL Absolute Neuts (auto) 5.4 (2.0-8.3) X10*3/uL Absolute Nucleated RBC 0.000 (0.0-0.012) X10*3/uL Nucleated RBC % (auto) 0.0 (0.0-0.2) /100WBC Sodium 139 (135-145) mmol/L Potassium 3.4 (3.3-5.1) mmol/L Chloride 100 (96-108) mmol/L Carbon Dioxide 30 H (22-29) mmol/L Anion Gap 12 (12-20) BUN 20 H D (9-16) mg/dL Creatinine 0.95 (0.5-1.4) mg/dL Estim Creat Clear Calc 57.0 Estimated GFR > 60 Random Glucose 87 (60-115) mg/dL Calcium 9.5 (8.4-10.2) mg/dL Total Bilirubin 0.3 (0.0-1.0) mg/dL Direct Bilirubin < 0.2 (0.0-0.5) mg/dL AST 15 (5-31) U/L ALT 12 (0-31) U/L Alkaline Phosphatase 122 H (39-117) U/L Troponin I High Sens < 3.5 (<3.5-17.0) ng/L Total Protein 7.2 (6.5-8.0) g/dL Albumin 4.3 (3.5-5.0) g/dL Lipase 27 (8-78) U/L Urine Color Urine Appearance Urine pH (5.0-8.0) Ur Specific [place] (1.005-1.025) Urine Protein (NEG-TRACE) MG/DL Urine Glucose (UA) (NEG) MG/DL Urine Ketones (NEG) MG/DL Urine Blood (NEG) Urine Nitrite (NEG) Ur Leukocyte Esterase (NEG) Urine RBC (0) /HPF Urine WBC (0-4) /HPF Ur Squamous Epith Cells /LPF Urine Bacteria /LPF Urine Mucus /LPF COVID-19 ([facility]) (Negative) COVID-19 Clin Com 03/06/21 03/06/21 Range/Units 23:29 23:29 WBC (4.8-10.8) X10*3/uL RBC (4.20-5.50) X10*6/uL Hgb (12.0-16.0) g/dl Hct (37-47) % MCV (80-98) fL MCH (27.0-33.0) pg MCHC (31.0-35.0) g/dl RDW (11.0-16.0) % Plt Count (160-400) X10*3/uL MPV (9.4-12.3) fL Immature Gran % (Auto) (0.0-0.4) % Neut % (Auto) (45-73) % Lymph % (Auto) (20-40) % [place] % (Auto) (2-11) % Eos % (Auto) (0-4) % Baso % (Auto) (0-2) % Lymph # (Auto) (1.2-4.9) X10*3/uL [place] # (Auto) (0.1-1.2) X10*3/uL Eos # (Auto) (0.0-0.4) X10*3/uL Baso # (Auto) (0.0-0.2) X10*3/uL Abs Immat Gran (auto) (0.00-0.03) X10*3/uL Absolute Neuts (auto) (2.0-8.3) X10*3/uL Absolute Nucleated RBC (0.0-0.012) X10*3/uL Nucleated RBC % (auto) (0.0-0.2) /100WBC Sodium (135-145) mmol/L Potassium (3.3-5.1) mmol/L Chloride (96-108) mmol/L Carbon Dioxide (22-29) mmol/L Anion Gap (12-20) BUN (9-16) mg/dL Creatinine (0.5-1.4) mg/dL Estim Creat Clear Calc Estimated GFR Random Glucose (60-115) mg/dL Calcium (8.4-10.2) mg/dL Total Bilirubin (0.0-1.0) mg/dL Direct Bilirubin (0.0-0.5) mg/dL AST (5-31) U/L ALT (0-31) U/L Alkaline Phosphatase (39-117) U/L Troponin I High Sens (<3.5-17.0) ng/L Total Protein (6.5-8.0) g/dL Albumin (3.5-5.0) g/dL Lipase (8-78) U/L Urine Color YELLOW Urine Appearance CLEAR Urine pH 6.5 (5.0-8.0) Ur Specific [place] 1.020 (1.005-1.025) Urine Protein NEG (NEG-TRACE) MG/DL Urine Glucose (UA) NEG (NEG) MG/DL Urine Ketones NEG (NEG) MG/DL Urine Blood 2+ H (NEG) Urine Nitrite NEG (NEG) Ur Leukocyte Esterase NEG (NEG) Urine RBC 10-14 H (0) /HPF Urine WBC 1-4 (0-4) /HPF Ur Squamous Epith Cells 2+ /LPF Urine Bacteria 2+ /LPF Urine Mucus 1+ /LPF COVID-19 ([facility]) Negative (Negative) COVID-19 Clin Com See Note Imaging Data CT scan - abdomen: Radiologist's impression: No acute findings identified in the abdomen/pelvis. No renal or ureteral calculus. Chest x-ray: Radiologist's impression: Unremarkable examination. ECG Data Attestation: I personally reviewed and interpreted this ECG as follows: Interpretation: Normal sinus rhythm at 82 beats per minutes, normal axis deviation, normal intervals, no ST-T changes. Discharge Plan Discharge Clinical Impression: Acute myofascial pain Patient Disposition: Home, Self-Care Instructions: Musculoskeletal Pain (ED) Prescriptions: New gabapentin [Neurontin] 600 mg tablet 600 mg PO BID Qty: 10 RF: 0 No Action hydrochlorothiazide 25 mg tablet 25 mg PO DAILY 30 Days Qty: 30 RF: 11 albuterol sulfate 90 mcg/actuation HFA aerosol inhaler 2 puff PO Q4H PRN (Reason: bronchospasm) 30 Days Qty: 8.5 RF: 6 albuterol sulfate [Ventolin HFA] 90 mcg/actuation HFA aerosol inhaler 2 puff inhalation Q4-6H PRN (Reason: bronchospasm) 30 Days Qty: 18 RF: 6 rcdvlzxhle-udsghggvuwlfd-fjtx 50-325-40 mg tablet 1 tab PO ONCE PRN (Reason: pain) 30 Days Qty: 30 RF: 0 Combivent Respimat 20-100 mcg/actuation mist 1 puff PO QID 30 Days Qty: 4 RF: 3 tramadol 50 mg tablet 50 mg PO Q8H PRN (Reason: pain) 30 Days Qty: 90 RF: 0 clonazepam 0.5 mg tablet 0.5 mg PO BID PRN (Reason: anxiety) 30 Days Qty: 60 RF: 0 prednisone 20 mg tablet 60 mg PO DAILY 5 Days Qty: 15 RF: 0 amoxicillin 500 mg tablet 1,000 mg PO Q12H 7 Days Qty: 28 RF: 0 tizanidine 4 mg capsule 4 mg PO BEDTIME 20 Days Qty: 20 RF: 0 escitalopram oxalate 10 mg tablet 10 mg PO DAILY 90 Days Qty: 90 RF: 1 cholecalciferol (vitamin D3) 50 mcg (2,000 unit) tablet 50 mcg PO DAILY RF: 0 fenofibrate 54 mg tablet 54 mg PO DAILY RF: 0 Combivent Respimat 20-100 mcg/actuation mist 1 PO QID RF: 0 Referrals: Neyda Foster MD [Primary Care Provider] - 2 days
[2021-03-06] MEDS: oxyCODONE HCl Immed Release 5 MG TABLET PO (23:31)
[2021-03-06 23:36] LABS: MANUAL DIFF FLAG NO
[2021-03-06 23:38] LABS: Basophils Absolute Auto 0.1 X10*3/uL (0.0-0.2); Basophils Percent Auto 0.5 % (0-2); Eosinophils Absolute Auto 0.2 X10*3/uL (0.0-0.4); Eosinophils Percent Auto 2.2 % (0-4); Hematocrit 39.6 % (37-47); Hemoglobin 12.8 g/dl (12.0-16.0); Imm Gran Abs Auto 0.03 X10*3/uL (0.00-0.03); Imm Gran Pct Auto 0.3 % (0.0-0.4); Lymphocytes Absolute Auto 3.5 X10*3/uL (1.2-4.9); Lymphocytes Percent Auto 35.7 % (20-40); Mean Corpuscular HGB Conc 32.3 g/dl (31.0-35.0); Mean Corpuscular Hemoglobin 27.4 pg (27.0-33.0); Mean Corpuscular Volume 84.8 fL (80-98); Mean Platelet Volume 9.8 fL (9.4-12.3); Monocytes Absolute Auto 0.6 X10*3/uL (0.1-1.2); Monocytes Percent Auto 6.3 % (2-11); Neutrophils Absolute Auto 5.4 X10*3/uL (2.0-8.3); Platelet Count 320 X10*3/uL (160-400); Red Blood Count 4.67 X10*6/uL (4.20-5.50); Red Cell Distribution Width 14.6 % (11.0-16.0); White Blood Count 9.8 X10*3/uL (4.8-10.8)
[2021-03-06 23:40] LABS: Appearance Urine CLEAR; Color Urine YELLOW; Glucose Urine UA NEG (NEG); Leukocyte Esterase Urine NEG (NEG); Nitrite Urine NEG (NEG); PH 6.5 (5.0-8.0); UACC Culture Trigger NO; Urine Blood 2+ (NEG); Urine Ketones NEG (NEG); Urine Protein NEG (NEG-TRACE)
[2021-03-06 23:48] LABS: Bacteria Urine 2+ /LPF; Mucus Urine 1+ /LPF; Squamous Epithelial Cell Urine 2+ /LPF
[2021-03-06 23:56] LABS: COVID-19 Test Negative (Negative); IDNOW Serial# 9DD0AD1C; Troponin-I High Sensitivity < 3.5 ng/L (<3.5-17.0)
[2021-03-07 00:45] LABS: Alanine Aminotransferase 12 U/L (0-31); Albumin Level 4.3 g/dL (3.5-5.0); Alkaline Phosphatase 122 U/L (39-117); Anion Gap 12 (12-20); Aspartate Amino Transferase 15 U/L (5-31); Bilirubin Direct < 0.2 mg/dL (0.0-0.5); Bilirubin Total 0.3 mg/dL (0.0-1.0); Blood Urea Nitrogen 20 mg/dL (9-16); Calcium 9.5 mg/dL (8.4-10.2); Carbon Dioxide 30 mmol/L (22-29); Chloride 100 mmol/L (96-108); Estimated Glomerular Filt Rate > 60; Glucose Random 87 mg/dL (60-115); Lipase 27 U/L (8-78); Potassium 3.4 mmol/L (3.3-5.1); Sodium 139 mmol/L (135-145); Total Protein 7.2 g/dL (6.5-8.0)
[2021-03-07 00:58] VITALS: RESP 16
[2021-03-07 01:49] VITALS: BP 140/91; PULSE 83; RESP 16; TEMP 37; O2SAT 100
== END 2021-03-07 01:54 | disposition home or self-care (01) ==
PROVIDERS: Emergency Provider Emergency Medicine; PCP Internal Medicine
DX: M79.18 Myalgia, other site (principal); M54.5 Low back pain; R07.81 Pleurodynia; R10.9 Unspecified abdominal pain; R07.89 Other chest pain; F17.210 Nicotine dependence, cigarettes, uncomplicated; Z71.6 Tobacco abuse counseling; Z20.822 Contact with and (suspected) exposure to COVID-19; Z79.899 Other long term (current) drug therapy
CPT/HCPCS: 36415; 71045; 74176; 80048; 80076; 81001; 83690; 84484; 85025; 87635; 93005; 99284

== ENCOUNTER 2021-04-26 22:48 | Emergency (ER) | payer OTHER, SELFPAY ==
[2021-04-26 22:53] VITALS: BP 150/100; PULSE 98; O2SAT 96
--- NOTE | 2021-04-26 22:53 | ED.DIZZY ---
HPI - Dizziness General Chief Complaint: Headache Stated Complaint: Dizziness Time Seen by Provider: 04/26/21 22:53 Source: patient Mode of arrival: EMS Limitations: no limitations History of Present Illness HPI Narrative: Patient is 50 years old female with history of hypertension, dyslipidemia, moderate depression, Gerd, anxiety and fibromyalgia comes here by EMS for dizziness, multiple complaints main complaint was pain all over the upper back on the head taking tramadol which is not helping her also she has a poor sleep but does not want to take Klonopin Related Data Home Medications Medication Instructions Recorded Confirmed cholecalciferol (vitamin D3) 50 50 mcg PO DAILY 03/18/20 03/07/21 mcg (2,000 unit) tablet fenofibrate 54 mg tablet 54 mg PO DAILY 03/18/20 03/07/21 ipratropium 20 mcg-albuterol 100 1 PO QID 03/18/20 03/07/21 mcg/actuation mist for inhalation Previous Rx's Medication Instructions Recorded tizanidine 4 mg capsule 4 mg PO BEDTIME 20 Days #20 cap 06/08/20 albuterol sulfate 90 mcg/actuation 2 puff PO Q4H PRN 30 Days #8.5 g 06/15/20 aerosol inhaler albuterol sulfate 90 mcg/actuation 2 puff INHALATION Q4-6H PRN 30 07/02/20 aerosol inhaler (Ventolin HFA) Days #18 g [id number]-[id number] 1 tab PO ONCE PRN 30 Days #30 tab 08/31/20 50 mg-325 mg-40 mg tablet escitalopram oxalate 10 mg tablet 10 mg PO DAILY 90 Days #90 tab 10/05/20 clonazepam 0.5 mg tablet 0.5 mg PO BID PRN 30 Days #60 tab 03/02/21 tramadol 50 mg tablet 50 mg PO Q8H PRN 30 Days #90 tab 04/05/21 hydrochlorothiazide 25 mg tablet 25 mg PO DAILY 30 Days #30 tab 04/18/21 ipratropium 20 mcg-albuterol 100 1 puff PO QID 30 Days #4 ml 04/18/21 mcg/actuation mist for inhalation (Combivent Respimat) carisoprodol 350 mg tablet (Soma) 350 mg PO TID PRN #30 tab 04/26/21 Allergies Allergy/AdvReac Type Severity Reaction Status Date / Time amitriptyline Allergy Intermediate headache Verified 03/07/21 15:29 ibuprofen [From Motrin] Allergy Intermediate ITCHY RASH Verified 03/07/21 15:29 gabapentin AdvReac Intermediate vomiting Verified 03/07/21 15:32 Review of Systems Review of Systems: Yes all other systems are reviewed and are negative [facility] Past Medical History Medical History Anxiety Cervical cancer screening Depression Dyslipidemia Dyspnea Epigastric pain Essential hypertension Fibromyalgia GERD (gastroesophageal reflux disease) Hand pain HTN (hypertension) Leg pain, bilateral Migraine Moderate recurrent major depression Right lower quadrant pain Skin lesion Surgical History H/O LEEP H/O tubal ligation History of breast lump/mass excision History of lithotripsy Family History Family History Father Myocardial infarction Mother Lung cancer Brother Liver cancer Maternal Grandfather Stomach cancer Maternal Grandmother No problems noted. Social History Social History Housing: Apartment Alcohol intake: never Patient Tobacco Use Status: Current someday Tobacco user Cigarettes Per Day: 3 e-Cigarette/Vaping Use: Never Used Second Hand Smoke Exposure: No Advance Directives: No Advance Directives Information Provided: Yes Patient : No service: No Current occupational status: disabled Gender identity: Female Physical Exam Vital Signs: Vital Signs: Last Vital Signs Temp 98 F 04/26/21 23:01 Pulse 90 04/26/21 23:01 Resp 18 04/26/21 23:01 BP 147/89 H 04/26/21 23:01 Pulse Ox 98 04/26/21 23:01 Body Mass Index 26.1 Appearance: Alert. Oriented X3. No acute distress. Anxious Eyes: No pallor or icterus ENT: Pharynx normal. Oral Mucosa moist Neck: Normal inspection. Neck supple. CVS: Normal heart rate and rhythm. Pulses normal. Respiratory: No respiratory distress. Equal air entry bilateral, no wheezing/rales/rhonchi Abdomen: Soft and nontender. Bowel sounds are present, no mass palpable, no CVA tenderness Skin: Skin warm and dry. Normal skin color. Normal skin turgor. Extremities: No lower extremity edema. No calf tenderness diffuse muscle spasm specially trapezius area bilateral Neuro: Oriented X 3. MDM - Dizziness MDM Narrative Medical decision making narrative: Patient fibromyalgia anxiety depression comes with multiple complaints specially pain in upper back will started on Soma along with advised to continue tramadol asked to follow-up with his Discharge Plan Discharge Clinical Impression: Chronic fatigue syndrome with fibromyalgia Patient Disposition: Home, Self-Care Instructions: Fibromyalgia (ED) Additional Instructions: Take medication as prescribed Start taking Soma for worsening of pain 3 times a day and follow with PCP Prescriptions: New carisoprodol [Soma] 350 mg tablet 350 mg PO TID PRN (Reason: muscle pain) Qty: 30 RF: 0 No Action albuterol sulfate 90 mcg/actuation HFA aerosol inhaler 2 puff PO Q4H PRN (Reason: bronchospasm) 30 Days Qty: 8.5 RF: 6 albuterol sulfate [Ventolin HFA] 90 mcg/actuation HFA aerosol inhaler 2 puff inhalation Q4-6H PRN (Reason: bronchospasm) 30 Days Qty: 18 RF: 6 hccxptlyip-whcctyatduggn-zfec 50-325-40 mg tablet 1 tab PO ONCE PRN (Reason: pain) 30 Days Qty: 30 RF: 0 clonazepam 0.5 mg tablet 0.5 mg PO BID PRN (Reason: anxiety) 30 Days Qty: 60 RF: 0 tramadol 50 mg tablet 50 mg PO Q8H PRN (Reason: pain) 30 Days Qty: 90 RF: 0 hydrochlorothiazide 25 mg tablet 25 mg PO DAILY 30 Days Qty: 30 RF: 11 Combivent Respimat 20-100 mcg/actuation mist 1 puff PO QID 30 Days Qty: 4 RF: 3 tizanidine 4 mg capsule 4 mg PO BEDTIME 20 Days Qty: 20 RF: 0 escitalopram oxalate 10 mg tablet 10 mg PO DAILY 90 Days Qty: 90 RF: 1 cholecalciferol (vitamin D3) 50 mcg (2,000 unit) tablet 50 mcg PO DAILY RF: 0 fenofibrate 54 mg tablet 54 mg PO DAILY RF: 0 Combivent Respimat 20-100 mcg/actuation mist 1 PO QID RF: 0 Interventions: ED Discharge Assessment Last Done: 04/26/21 23:40
[2021-04-26 23:01] VITALS: BP 147/89; PULSE 90; RESP 18; TEMP 36.6; O2SAT 98; BMI 26.1
[2021-04-26 23:11] VITALS: BMI 26.1
[2021-04-26] MEDS: carisoprodoL 350 MG TABLET PO (23:35)
== END 2021-04-26 23:41 | disposition home or self-care (01) ==
PROVIDERS: Emergency Provider Internal Medicine; PCP Internal Medicine
DX: R53.82 Chronic fatigue, unspecified (principal); M79.7 Fibromyalgia; I10 Essential (primary) hypertension; E78.5 Hyperlipidemia, unspecified; F17.200 Nicotine dependence, unspecified, uncomplicated
CPT/HCPCS: 99283

== ENCOUNTER → 2021-05-02 14:38 | Outpatient (BNVA) | payer OTHER, SELFPAY | PROVIDERS: PCP Internal Medicine; Visit Provider Hospitalist | DX: R91.8 Other nonspecific abnormal finding of lung field (principal); R40.0 Somnolence; R06.02 Shortness of breath; F17.200 Nicotine dependence, unspecified, uncomplicated | CPT/HCPCS: 99202 ==

== ENCOUNTER 2021-05-26 13:01 | Outpatient (REF) | payer OTHER, SELFPAY | END 2021-05-26 13:02 | disposition home or self-care (01) | LOC: HO.LAB 13:01 | PROVIDERS: Visit Provider Internal Medicine | DX: Z20.822 Contact with and (suspected) exposure to COVID-19 (principal) | CPT/HCPCS: C9803; U0003; U0005 ==

== ENCOUNTER 2021-06-16 14:04 | Emergency (ER) | payer OTHER, SELFPAY | END 2021-06-16 17:03 | disposition left against medical advice (07) | PROVIDERS: Emergency Provider Emergency Medicine; PCP Internal Medicine | DX: R51.9 Headache, unspecified (principal); R50.9 Fever, unspecified ==

== ENCOUNTER 2021-06-17 11:00 | Emergency (ER) | payer OTHER, SELFPAY ==
[2021-06-17 11:42] VITALS: BP 145/96; PULSE 80; RESP 18; TEMP 36.8; O2SAT 97; BMI 29.7
[2021-06-17 11:42] LABS: COVID-19 Test Negative (Negative)
--- NOTE | 2021-06-17 11:43 | ED.URI ---
HPI - URI/Sore Throat General Chief Complaint: Upper Respiratory Symptoms <MARLENA Philip Last Filed: 06/17/21 11:47> Stated Complaint: Ear pain/sore throat/fever <MARLENA Philip Last Filed: 06/17/21 11:47> Time Seen by Provider: 06/17/21 11:42 <MARLENA Philip Last Filed: 06/17/21 11:47> Source: patient <MARLENA Mendosa Last Filed: 06/17/21 12:06> Mode of arrival: ambulatory <MARLENA Mendosa Last Filed: 06/17/21 12:06> Limitations: no limitations <MARLENA Mendosa Last Filed: 06/17/21 12:06> History of Present Illness HPI Narrative: 50-year-old female past medical history significant for hypertension, asthma presents to the emergency department with headache, nasal congestion, itchy eyes, throat ache and right-sided ear pain X 2 days. Patient tells me that this feels like her typical headache, she denies vision changes and double vision. She denies chest pain, shortness of breath, fevers, chills, nausea, vomiting, abdominal pain. She is not vaccinated against COVID. She smokes socially. Reports a few weeks ago she was treated for an ear infection, she received prednisone and antibiotics. <MARLENA Mendosa Last Filed: 06/17/21 12:06> MD elicited complaint: sore throat, rhinorrhea and nasal congestion <MARLENA Mendosa Last Filed: 06/17/21 12:06> Onset (ago): day(s) (2) <MARLENA Mendosa Last Filed: 06/17/21 12:06> Consistency: constant <MARLENA Mendosa Last Filed: 06/17/21 12:06> Severity: mild <MARLENA Mendosa Last Filed: 06/17/21 12:06> Able to tolerate fluids by mouth: Yes <MARLENA Mendosa Last Filed: 06/17/21 12:06> Exacerbating factors: nothing <MARLENA Mendosa - Last Filed: 06/17/21 12:06> Relieving factors: nothing <MARLENA Mendosa - Last Filed: 06/17/21 12:06> Context: sick contacts (Son's COVID positive.) and recent travel (Recently return from [place]) <MARLENA Mendosa - Last Filed: 06/17/21 12:06> Treatments prior to arrival: none <MARLENA Mendosa - Last Filed: 06/17/21 12:06> Related Data Home Medications: Home Medications Medication Instructions Recorded Confirmed cholecalciferol (vitamin D3) 50 50 mcg PO DAILY 03/18/20 05/26/21 mcg (2,000 unit) tablet Previous Rx's Medication Instructions Recorded tizanidine 4 mg capsule 4 mg PO BEDTIME 20 Days #20 cap 06/08/20 wmcfbwtqyu-wxsluiejkfpgj-eclskpsx 1 tab PO ONCE PRN 30 Days #30 tab 08/31/20 50 mg-325 mg-40 mg tablet hydrochlorothiazide 25 mg tablet 25 mg PO DAILY 30 Days #30 tab 04/18/21 ipratropium 20 mcg-albuterol 100 1 puff PO QID 30 Days #4 ml 04/18/21 mcg/actuation mist for inhalation (Combivent Respimat) carisoprodol 350 mg tablet (Soma) 350 mg PO TID PRN #30 tab 04/26/21 clonazepam 0.5 mg tablet 0.5 mg PO BID PRN 30 Days #60 tab 05/20/21 tramadol 50 mg tablet 50 mg PO Q8H PRN 30 Days #90 tab 05/20/21 albuterol sulfate 90 mcg/actuation 2 puff PO Q4H PRN 30 Days #8.5 g 05/24/21 aerosol inhaler amoxicillin 875 mg-potassium 1 tab PO Q12H 7 Days #14 tab 05/26/21 clavulanate 125 mg tablet (Augmentin) prednisone 5 mg tablet 5 mg PO DAILY 5 Days #5 tab 05/26/21 amoxicillin 875 mg-potassium 1 tab PO BID 10 Days #20 tab 06/17/21 clavulanate 125 mg tablet (Augmentin) loratadine 10 mg capsule (Claritin 10 mg PO DAILY PRN #30 cap 06/17/21 Liqui-Gel) <MARLENA Philip Last Filed: 06/17/21 11:47> Allergies/Adverse Reactions: Allergies Allergy/AdvReac Type Severity Reaction Status Date / Time amitriptyline Allergy Intermediate headache Verified 06/17/21 11:42 ibuprofen [From Motrin] Allergy Intermediate ITCHY RASH Verified 06/17/21 11:42 gabapentin AdvReac Intermediate vomiting Verified 06/17/21 11:42 <MARLENA Philip Last Filed: 06/17/21 11:47> Review of Systems Review of Systems: Constitutional : No Weight loss, No Fever, No Chills, No Fatigue, + Malaise ENT/Mouth : + sore throat, No Rhinorrhea Eyes: + Eye Pain, No Swelling, No Redness Cardiovascular : No Chest Pain, No SOB, No Dyspnea on Exertion, No Orthopnea, No Edema, No Palpitations Respiratory : No Cough, No Sputum, No Wheezing Gastrointestinal : No Nausea, No Vomiting, No Diarrhea, No Constipation, No abdominal Pain, No Hematochezia, No Melena Genitourinary : No Dysuria, No Urinary Frequency, No Hematuria, Musculoskeletal : No joint pain, No Myalgias, No Joint Swelling Skin : No Skin Lesions, No rash Neuro : No Weakness, No Numbness, No Dizziness, No Headache All other systems reviewed and are negative <MARLENA Mendosa Last Filed: 06/17/21 12:06> Yes all other systems are reviewed and are negative <MARLENA Mendosa Last Filed: 06/17/21 12:06> [facility] Past Medical History Attestation statement: The following information was validated with the patient. <MARLENA Mendosa Last Filed: 06/17/21 12:06> Source: old records reviewed and nursing notes reviewed <MARLENA Mendosa Last Filed: 06/17/21 12:06> Medical History: Medical History Anxiety Cervical cancer screening Depression Dyslipidemia Dyspnea Epigastric pain Essential hypertension Fibromyalgia GERD (gastroesophageal reflux disease) Hand pain Has daytime drowsiness HTN (hypertension) Leg pain, bilateral Migraine Moderate recurrent major depression Pulmonary nodules Right lower quadrant pain Skin lesion Tobacco dependence <MARLENA Philip - Last Filed: 06/17/21 11:47> Surgical History: Surgical History H/O LEEP H/O tubal ligation History of breast lump/mass excision History of lithotripsy <MARLENA Philip - Last Filed: 06/17/21 11:47> Family History Family History: Family History Father Myocardial infarction Mother Lung cancer Brother Liver cancer Maternal Grandfather Stomach cancer Maternal Grandmother No problems noted. <MARLENA Philip - Last Filed: 06/17/21 11:47> Social History Social History: Social History Housing: Apartment Alcohol intake: never Patient Tobacco Use Status: Current everyday Tobacco user Cigarettes Per Day: 3 e-Cigarette/Vaping Use: Never Used Second Hand Smoke Exposure: No Advance Directives: No Advance Directives Information Provided: Yes service: No Current occupational status: disabled Gender identity: Female <MARLENA Philip - Last Filed: 06/17/21 11:47> Physical Exam Vital Signs: Vital Signs: Last Vital Signs Temp 98.3 F 06/17/21 11:42 Pulse 80 06/17/21 11:42 Resp 18 06/17/21 11:42 BP 145/96 H 06/17/21 11:42 Pulse Ox 97 06/17/21 11:42 BMI result Body Mass Index 29.7 <MARLENA Philip - Last Filed: 06/17/21 11:47> Vital Signs: Last Vital Signs Temp 98.3 F 06/17/21 11:42 Pulse 80 06/17/21 11:42 Resp 18 06/17/21 11:42 BP 145/96 H 06/17/21 11:42 Pulse Ox 97 06/17/21 11:42 BMI result Body Mass Index 29.7 VSS <MARLENA Mendosa - Last Filed: 06/17/21 12:06> Appearance: Alert.? Oriented X3.? No acute distress.? Head: Normocephalic, atraumatic, no step-offs or deformities Eyes: Pupils equal, round and reactive to light.? ENT: Pharynx normal.?+ discomfort over sinuses with palpation and percussion. + bend over test with facial pressure. + right tympanic membrane edematous, erythematous and bulging, consistent with otitis media. There is pain to palpation externally and pain with manipulation of right ear. Left ear normal. Neck: Normal inspection.? Neck supple.? CVS: Normal heart rate and rhythm.? Pulses normal.? Respiratory: No respiratory distress.? Breath sounds normal.? Abdomen: Soft and nontender.? Skin: Skin warm and dry.? Normal skin color.? Normal skin turgor.? Extremities: No lower extremity edema.? No calf ttp. 5/5 strength to bilateral upper and lower extremities Back: No midline tenderness, no C-spine tenderness, full range of motion, no CVA tenderness bilaterally Neuro: Oriented X 3.? No motor deficit.? No sensory deficit. <MARLENA Mendosa - Last Filed: 06/17/21 12:06> Course Reevaluation(s) Reevaluation #1: Patient's symptoms are consistent with otitis media/externa and sinusitis. I will treat her with Augmentin. COVID negative. No need for blood work at this time as they will not change my plan of care. Patient's lungs are clear, no shortness of breath, no need for chest x-ray. Unlikely pneumonia. Patient is saturating well on room air, not tachycardic, tachypneic or hypoxic, unlikely PE. I suspect the patient's symptoms are secondary to sinusitis, and otitis media and externa. At this time I feel comfortable with discharge home. I have given her strict return precautions and have advised her to return to the emergency department with new or worsening symptoms such as chest pain, shortness of breath, fevers, chills, nausea, vomiting. <MARLENA Mendosa - Last Filed: 06/17/21 12:06> Time: 11:52 <MARLENA Mendosa - Last Filed: 06/17/21 12:06> MDM - URI/Sore Throat MDM Narrative Medical decision making narrative: 1150 50-year-old female past medical history significant for hypertension presenting to the emergency department with complaints of sinus like symptoms X2 days, and right-sided ear pain. Patient tells me that she was recently treated for an ear infection with antibiotics and prednisone. Upon physical examination patient appears well, vital signs are stable. Regular rate and rhythm. Lungs are clear. Right-sided tympanic membrane edematous, erythematous and bulging consistent with otitis media. There is pain with manipulation of tragus and pinna, consistent with otitis externa. She also reports pain/discomfort with percussion of the sinuses. Discomfort with forward bending test, consistent with sinusitis. No focal neuro deficits. Plan at this time is to obtain a COVID test. <MARLENA Mendosa - Last Filed: 06/17/21 12:06> Medical Records Attestation: I reviewed the patient's medical records. <MARLENA Mendosa - Last Filed: 06/17/21 12:06> Lab Data Attestation: I reviewed the patient's lab results. <MARLENA Mendosa - Last Filed: 06/17/21 12:06> Labs: Lab Results 06/17/21 Range/Units 11:11 COVID-19 (EDWAR) Negative (Negative) COVID-19 Clin Com See Note <MARLENA Philip - Last Filed: 06/17/21 11:47> Lab Results 06/17/21 Range/Units 11:11 COVID-19 (EDWAR) Negative (Negative) COVID-19 Clin Com See Note <MARLENA Mendosa - Last Filed: 06/17/21 12:06> Critical Care Time Critical Care Time Critical Care Time: No <MARLENA Mendosa - Last Filed: 06/17/21 12:06> Discharge Plan Discharge Clinical Impression: Sinusitis, Otitis media, Otitis externa <MARLENA Philip Last Filed: 06/17/21 11:47> Patient Disposition: Home, Self-Care <MARLENA Philip Last Filed: 06/17/21 11:47> Instructions: Sinusitis (ED), Otitis Externa (ED), Ear Infection (ED) <MARLENA Philip Last Filed: 06/17/21 11:47> Additional Instructions: Take your medications as prescribed. If you were prescribed antibiotics today, it is important that you take your medication to their entirety, do not skip any doses, do not finish them early. Follow-up with your primary care provider this week. You can take ibuprofen every 6 hours, Tylenol every 4 hours as needed for fevers or body aches Return to the emergency department with new or worsening symptoms. Such as chest pain, shortness of breath, fevers, chills, nausea, vomiting. In case of emergency call 911 You can retest for COVID-19 in 2-4 days. You were negative today. <MARLENA Philip - Last Filed: 06/17/21 11:47> Prescriptions: New amoxicillin-pot clavulanate [Augmentin] 875-125 mg tablet 1 tab PO BID 10 Days Qty: 20 RF: 0 loratadine [Claritin Liqui-Gel] 10 mg capsule 10 mg PO DAILY PRN (Reason: allergy symptoms) Qty: 30 RF: 0 No Action blmronlcim-ppzknjhxmuxlc-ctjp 50-325-40 mg tablet 1 tab PO ONCE PRN (Reason: pain) 30 Days Qty: 30 RF: 0 hydrochlorothiazide 25 mg tablet 25 mg PO DAILY 30 Days Qty: 30 RF: 11 Combivent Respimat 20-100 mcg/actuation mist 1 puff PO QID 30 Days Qty: 4 RF: 3 clonazepam 0.5 mg tablet 0.5 mg PO BID PRN (Reason: anxiety) 30 Days Qty: 60 RF: 0 tramadol 50 mg tablet 50 mg PO Q8H PRN (Reason: pain) 30 Days Qty: 90 RF: 0 albuterol sulfate 90 mcg/actuation HFA aerosol inhaler 2 puff PO Q4H PRN (Reason: bronchospasm) 30 Days Qty: 8.5 RF: 6 carisoprodol [Soma] 350 mg tablet 350 mg PO TID PRN (Reason: muscle pain) Qty: 30 RF: 0 tizanidine 4 mg capsule 4 mg PO BEDTIME 20 Days Qty: 20 RF: 0 cholecalciferol (vitamin D3) 50 mcg (2,000 unit) tablet 50 mcg PO DAILY RF: 0 prednisone 5 mg tablet 5 mg PO DAILY 5 Days Qty: 5 RF: 0 amoxicillin-pot clavulanate [Augmentin] 875-125 mg tablet 1 tab PO Q12H 7 Days Qty: 14 RF: 0 <MARLENA Philip - Last Filed: 06/17/21 11:47> Referrals: Neyda Foster MD [Primary Care Provider] - 2 days <MARLENA Philip - Last Filed: 06/17/21 11:47> Stand Alone Forms: Work/School Release <MARLENA Philip - Last Filed: 06/17/21 11:47>
== END 2021-06-17 12:46 | disposition home or self-care (01) ==
PROVIDERS: Emergency Provider Emergency Medicine; PCP Internal Medicine
DX: H66.91 Otitis media, unspecified, right ear (principal); H60.91 Unspecified otitis externa, right ear; J32.9 Chronic sinusitis, unspecified; Z20.822 Contact with and (suspected) exposure to COVID-19; J02.9 Acute pharyngitis, unspecified; I10 Essential (primary) hypertension; E78.5 Hyperlipidemia, unspecified; F17.200 Nicotine dependence, unspecified, uncomplicated
CPT/HCPCS: 36415; 87635; 99282; 99283

== ENCOUNTER 2021-06-21 20:07 | Emergency (ER) | payer OTHER, SELFPAY ==
[2021-06-21 22:13] VITALS: BP 129/97; PULSE 97; RESP 18; TEMP 37.7; O2SAT 97; BMI 27.7
[2021-06-21 23:06] LABS: COVID-19 Test Positive (Negative)
--- NOTE | 2021-06-21 23:50 | ED.FEVER ---
HPI - Fever General Chief Complaint: Fever Stated Complaint: fever, body aches Time Seen by Provider: 06/21/21 23:50 Source: patient Mode of arrival: ambulatory Limitations: no limitations History of Present Illness HPI Narrative: 49-year-old female, active smoker, pulmonary nodules, depression, fibromyalgia who presents to the ER with fevers at home as well as headaches, right ear pain, nasal congestion and body aches. She was seen here on 06/17 and given antibiotics for a right-sided ear infection. She reports the antibiotics are not helping. She had a fever of 101 took some Tylenol and went down. She reports a dry cough with no sputum production. She has no chest pain or dyspnea on exertion. She has not vaccinated for COVID-19. She had COVID infection back in August 2020. MD elicited complaint: fever, malaise and other (Body aches and right ear pain) Onset (ago): day(s) (6) Exacerbating factors: at night Relieving factors: acetaminophen Associated symptoms: chills, myalgias, headache, nasal congestion, sore throat, cough, shortness of breath, sinus pain and ear ache Treatments prior to arrival fever: none Related Data Home Medications Medication Instructions Recorded Confirmed cholecalciferol (vitamin D3) 50 50 mcg PO DAILY 03/18/20 06/21/21 mcg (2,000 unit) tablet Previous Rx's Medication Instructions Recorded tizanidine 4 mg capsule 4 mg PO BEDTIME 20 Days #20 cap 06/08/20 [id number]-bczjagnzbymer-vvgndwaw 1 tab PO ONCE PRN 30 Days #30 tab 08/31/20 50 mg-325 mg-40 mg tablet hydrochlorothiazide 25 mg tablet 25 mg PO DAILY 30 Days #30 tab 04/18/21 ipratropium 20 mcg-albuterol 100 1 puff PO QID 30 Days #4 ml 04/18/21 mcg/actuation mist for inhalation (Combivent Respimat) carisoprodol 350 mg tablet (Soma) 350 mg PO TID PRN #30 tab 04/26/21 clonazepam 0.5 mg tablet 0.5 mg PO BID PRN 30 Days #60 tab 05/20/21 tramadol 50 mg tablet 50 mg PO Q8H PRN 30 Days #90 tab 05/20/21 albuterol sulfate 90 mcg/actuation 2 puff PO Q4H PRN 30 Days #8.5 g 05/24/21 aerosol inhaler loratadine 10 mg capsule (Claritin 10 mg PO DAILY PRN #30 cap 06/17/21 Liqui-Gel) azithromycin 250 mg tablet See Rx Instructions PO .COMPLEX #6 06/21/21 (Zithromax) tab fluticasone propionate 50 2 spray INTRANASAL Q12H 30 Days 06/21/21 mcg/actuation nasal #16 g spray,suspension (Flonase Allergy Relief) Allergies Allergy/AdvReac Type Severity Reaction Status Date / Time amitriptyline Allergy Intermediate headache Verified 06/21/21 11:32 ibuprofen [From Motrin] Allergy Intermediate ITCHY RASH Verified 06/21/21 11:32 gabapentin AdvReac Intermediate vomiting Verified 06/21/21 11:32 Review of Systems Review of Systems: Constitutional: + Fever, + Chills ENT/Mouth: No sore throat, + Rhinorrhea, No Swallowing Difficulty, +ear pain Cardiovascular: No Chest Pain, No SOB Respiratory: + Cough, No Sputum, No Wheezing, No dyspnea Gastrointestinal: No Nausea, No Vomiting, No Diarrhea, No abdominal Pain Musculoskeletal: No joint pain, No Myalgias Skin: No Skin Lesions, No rash Neuro: No Weakness, No Numbness, No Dizziness, + Headache Heme/Lymph: No Lymphadenopathy PMFSH Past Medical History Medical History Anxiety Cervical cancer screening Depression Dyslipidemia Dyspnea Epigastric pain Essential hypertension Fibromyalgia GERD (gastroesophageal reflux disease) Hand pain Has daytime drowsiness HTN (hypertension) Leg pain, bilateral Migraine Moderate recurrent major depression Pulmonary nodules Right lower quadrant pain Skin lesion Tobacco dependence Surgical History H/O LEEP H/O tubal ligation History of breast lump/mass excision History of lithotripsy Family History Family History Father Myocardial infarction Mother Lung cancer Brother Liver cancer Maternal Grandfather Stomach cancer Maternal Grandmother No problems noted. Social History Social History Housing: Apartment Alcohol intake: never Patient Tobacco Use Status: Current everyday Tobacco user Cigarettes Per Day: 3 e-Cigarette/Vaping Use: Never Used Second Hand Smoke Exposure: No Advance Directives: No service: No Current occupational status: disabled Gender identity: Female Physical Exam Vital Signs: Vital Signs: Last Vital Signs Temp 99.9 F 06/21/21 22:13 Pulse 97 06/21/21 22:13 Resp 18 06/21/21 22:13 BP 129/97 H 06/21/21 22:13 Pulse Ox 97 06/21/21 22:13 BMI result Body Mass Index 27.7 Appearance: Alert. Oriented X3. No acute distress. Eyes: Pupils equal, round and reactive to light. No conjunctival injection ENT: Pharynx normal. Normal inspection of the left tympanic membrane, right tympanic membrane with some mild erythema, no effusion or perforation. Neck: Normal inspection. Neck supple. CVS: Normal heart rate and rhythm. Pulses normal. Respiratory: No respiratory distress. Breath sounds normal. Dry cough noted Skin: Skin warm and dry. Normal skin color. Normal skin turgor. No rashes. Extremities: N normal inspection, normal range of motion Neuro: Oriented X 3. Grossly normal, nonfocal Course Course Course Narrative: 52-year-old female presenting to the ER with fever, headaches, chills for the last 4 days. She is not vaccinated for COVID-19. Her COVID test here is positive. Her vital signs are normal and her exam is benign. Her lungs are clear with no respiratory distress and at oxygen saturation of 97% on room air. At this time she is stable for discharge home with supportive care and close monitoring of her symptoms. MDM - Fever Lab Data Labs: Lab Results 06/21/21 Range/Units 22:45 COVID-19 ([facility]) Positive A (Negative) COVID-19 Clin Com See Note Discharge Plan Discharge Clinical Impression: COVID-19 Patient Disposition: Home, Self-Care Instructions: Covid-19 Viral Syndrome and Novel Coronavirus (ED) Hey/Ath Additional Instructions: You were found to be COVID-19 POSITIVE today. Your exam and oxygen levels were normal. Rest. Drink plenty of fluids. Do not go out in public for the next 7-10 days, or until your symptoms are resolved. Take over the counter cold/flu medications as needed for your symptoms. Take Tylenol and/or Motrin as needed for fevers and body aches. Follow up with your doctor this week. If you shortness of breath worsens, if you develop difficulty breathing or any other concerning symptom come back to the ER for further evaluation. Prescriptions: No Action ylpnjylmhm-ivauvgjywlyba-fmpf 50-325-40 mg tablet 1 tab PO ONCE PRN (Reason: pain) 30 Days Qty: 30 RF: 0 hydrochlorothiazide 25 mg tablet 25 mg PO DAILY 30 Days Qty: 30 RF: 11 Combivent Respimat 20-100 mcg/actuation mist 1 puff PO QID 30 Days Qty: 4 RF: 3 clonazepam 0.5 mg tablet 0.5 mg PO BID PRN (Reason: anxiety) 30 Days Qty: 60 RF: 0 tramadol 50 mg tablet 50 mg PO Q8H PRN (Reason: pain) 30 Days Qty: 90 RF: 0 albuterol sulfate 90 mcg/actuation HFA aerosol inhaler 2 puff PO Q4H PRN (Reason: bronchospasm) 30 Days Qty: 8.5 RF: 6 carisoprodol [Soma] 350 mg tablet 350 mg PO TID PRN (Reason: muscle pain) Qty: 30 RF: 0 loratadine [Claritin Liqui-Gel] 10 mg capsule 10 mg PO DAILY PRN (Reason: allergy symptoms) Qty: 30 RF: 0 tizanidine 4 mg capsule 4 mg PO BEDTIME 20 Days Qty: 20 RF: 0 cholecalciferol (vitamin D3) 50 mcg (2,000 unit) tablet 50 mcg PO DAILY RF: 0 azithromycin [Zithromax] 250 mg tablet See Rx Instructions PO .COMPLEX Qty: 6 RF: 0 fluticasone propionate [Flonase Allergy Relief] 50 mcg/actuation spray,suspension 2 spray intranasal Q12H 30 Days Qty: 16 RF: 0 Interventions: ED Discharge Assessment Last Done: 06/22/21 00:04 Discharge Date/Time: 06/22/21 00:05 Print Language: Kyrgyz
== END 2021-06-22 00:05 | disposition home or self-care (01) ==
PROVIDERS: Emergency Provider Emergency Medicine Emergency Medical Services; PCP Internal Medicine
DX: U07.1 COVID-19 (principal); R50.9 Fever, unspecified; I10 Essential (primary) hypertension; E78.5 Hyperlipidemia, unspecified; F17.200 Nicotine dependence, unspecified, uncomplicated; Z79.899 Other long term (current) drug therapy
CPT/HCPCS: 87635; 99283

== ENCOUNTER 2021-06-30 10:12 | Outpatient (REF) | payer OTHER, SELFPAY ==
[2021-06-30 12:03] LABS: COVID-19 Test Positive (Negative)
== END 2021-06-30 10:13 | disposition home or self-care (01) ==
LOC: HO.LAB 10:12
PROVIDERS: Visit Provider Internal Medicine
DX: Z20.822 Contact with and (suspected) exposure to COVID-19 (principal)
CPT/HCPCS: 87635; C9803

== ENCOUNTER 2021-07-08 13:29 | Outpatient (REF) | payer OTHER, SELFPAY ==
[2021-07-08 13:52] LABS: Binax Internal Control QC Valid; Binax Now Covid-19 Ag Negative (Negative)
== END 2021-07-08 13:30 | disposition home or self-care (01) ==
LOC: HO.LAB 13:29
PROVIDERS: Visit Provider Internal Medicine
DX: Z20.822 Contact with and (suspected) exposure to COVID-19 (principal)
CPT/HCPCS: C9803

== ENCOUNTER 2021-07-28 13:27 | Outpatient (REF) | payer OTHER, SELFPAY ==
[2021-07-29 01:25] LABS: CT PCR NOT DETECTED (Not Detect.); NG PCR NOT DETECTED (Not Detect.)
[2021-07-29 11:10] LABS: BV Int Neg Control Negative (Negative); BV Int Pos Control Positive (Positive)
== END 2021-07-28 13:28 | disposition home or self-care (01) ==
LOC: HO.LAB 13:27
PROVIDERS: PCP Internal Medicine; Visit Provider Advanced Practice Midwife
DX: B37.3 Candidiasis of vulva and vagina (principal); F17.210 Nicotine dependence, cigarettes, uncomplicated; R39.15 Urgency of urination; R35.0 Frequency of micturition; Z79.899 Other long term (current) drug therapy; Z20.2 Contact with and (suspected) exposure to infections with a predominantly sexual mode of transmission
CPT/HCPCS: 87480; 87491; 87510; 87591; 87660; 99212

== ENCOUNTER 2021-09-01 06:57 | Emergency (ER) | payer OTHER, SELFPAY ==
--- NOTE | ~2021-09-01 | XR_ITS ---
EXAMINATION: XR CHEST CLINICAL INFORMATION: Chest pain COMPARISON: Chest 03/06/2021 TECHNIQUE: Frontal view of the chest was obtained. FINDINGS: The lungs are well-expanded and clear acute pneumonic process. There is a 4 mm nodule right upper lobe peripherally based overlying 6 posterior rib, stable. No additional nodules seen. XR/XR chest 1V IMPRESSION: 4 mm right upper lobe nodule likely granuloma, stable to previous study 03/06/2021. No acute cardiopulmonary process seen.
--- NOTE | ~2021-09-01 | CT_ITS ---
EXAMINATION: CT HEAD WITHOUT CONTRAST CLINICAL INFORMATION: Headache. COMPARISON: None TECHNIQUE: Contiguous axial imaging was performed from the skull base to vertex without intravenous administration of contrast. This CT examination was performed using dose optimization techniques as appropriate, variously including the following: *Automated exposure control *Adjustment of mA and/or kV according to patient size (this includes techniques or standardized protocols for targeted exams where dose is matched to indication/reason for exam; i.e. extremities or head) *Use of iterative reconstruction technique DLP: 637 mGy-cm FINDINGS: There is no evidence of acute intracranial hemorrhage or territorial infarction. No abnormal mass effect or midline shift is seen. [place] to white matter differentiation is well preserved. No extra-axial fluid collections are identified. The ventricles are normal in size. There is no abnormal attenuation within the brain parenchyma. The osseous structures and soft tissues are normal. The mastoid air cells and visualized portions of the paranasal sinuses are well aerated. There is a small polyp or retention cyst left maxillary sinus. There is lukas bullosa of middle turbinates. CT/CT head/brain wo con IMPRESSION: No acute intracranial process seen.
[2021-09-01 07:04] VITALS: BP 151/90; PULSE 88; RESP 19; TEMP 36.6; O2SAT 98; BMI 29.5
--- NOTE | 2021-09-01 08:07 | ECG_ITS ---
Test Reason : CHEST PAIN Blood Pressure : / mmHG Vent. Rate : 073 BPM Atrial Rate : 073 BPM P-R Int : 142 ms QRS Dur : 082 ms QT Int : 418 ms P-R-T Axes : 028 027 004 degrees QTc Int : 460 ms Artifact in tracing Normal sinus rhythm Normal ECG When compared with ECG of 06-MAR-2021 23:28, No significant change was found Referred By: Irena Acosta Electronically Signed By:DAVON REVELES
--- NOTE | 2021-09-01 08:14 | ED.GENADULT ---
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 Patient with chronic history of fibromyalgia and generalized pain could not sleep last night from severe pain started at 03:00 o'clock in the morning ( 5 hours before seen in the emergency department) and the left chest that described as a constant and severe 10/10 dull aching, no aggravating factor, no relieving factor, pain is also associated with headache. patient declined any blurry vision, no nausea, no vomiting. Related Data Home Medications Medication Instructions Recorded Confirmed cholecalciferol (vitamin D3) 50 50 mcg PO DAILY 03/18/20 07/28/21 mcg (2,000 unit) tablet Previous Rx's Medication Instructions Recorded tizanidine 4 mg capsule 4 mg PO BEDTIME 20 Days #20 cap 06/08/20 hydrochlorothiazide 25 mg tablet 25 mg PO DAILY 30 Days #30 tab 04/18/21 carisoprodol 350 mg tablet (Soma) 350 mg PO TID PRN #30 tab 04/26/21 albuterol sulfate 90 mcg/actuation 2 puff PO Q4H PRN 30 Days #8.5 g 05/24/21 aerosol inhaler loratadine 10 mg capsule (Claritin 10 mg PO DAILY PRN #30 cap 06/17/21 Liqui-Gel) azithromycin 250 mg tablet See Rx Instructions PO .COMPLEX #6 06/21/21 (Zithromax) tab clonazepam 0.5 mg tablet 0.5 mg PO BID PRN 30 Days #60 tab 07/11/21 fluticasone propionate 50 2 spray INTRANASAL Q12H 30 Days 07/14/21 mcg/actuation nasal #16 g spray,suspension (Flonase Allergy Relief) ipratropium 20 mcg-albuterol 100 1 puff PO QID 30 Days #4 ml 07/27/21 mcg/actuation mist for inhalation (Combivent Respimat) clotrimazole 1 % vaginal cream 1 appful VAGINAL BEDTIME #45 g 07/28/21 fnekctthjc-uwerliaekcjko-toczffxr 1 tab PO ONCE PRN 30 Days #30 tab 08/26/21 50 mg-325 mg-40 mg tablet tramadol 50 mg tablet 50 mg PO Q8H PRN 30 Days #90 tab 08/29/21 Allergies Allergy/AdvReac Type Severity Reaction Status Date / Time amitriptyline Allergy Intermediate headache Verified 07/28/21 13:42 ibuprofen [From Motrin] Allergy Intermediate ITCHY RASH Verified 07/28/21 13:42 gabapentin AdvReac Intermediate vomiting Verified 07/28/21 13:42 Review of Systems Review of Systems: All other systems are reviewed and are negative Constitutional: Reports as per HPI and Reports no additional constitutional complaints Eyes: Reports as per HPI and Reports no additional eye complaints Reports system reviewed and no additional complaints, except as documented Cardiovascular: Reports as per HPI and Reports no additional cardiovascular complaints Respiratory: Reports as per HPI and Reports no additional respiratory complaints Gastrointestinal: Reports as per HPI and Reports no additional gastrointestinal complaints Genitourinary: Reports no additional female genitourinary complaints Musculoskeletal: Reports no additional musculoskeletal complaints Skin/Breast: Reports system reviewed and no additional complaints, except as docu Psychiatric: Reports no additional psychiatric complaints Endocrine: Reports no additional endocrine complaints Hematologic/Lymphatic: Reports no additional hematologic/lymphatic complaints Allergic/Immunologic: Reports no additional allergic/immunologic complaints Reports system reviewed and no additional complaints, except as documented and Reports Abnormal speech present PMFSH Past Medical History Medical History Anxiety Cervical cancer screening Depression Dyslipidemia Dyspnea Epigastric pain Essential hypertension Fibromyalgia GERD (gastroesophageal reflux disease) Hand pain Has daytime drowsiness HTN (hypertension) Leg pain, bilateral Migraine Moderate recurrent major depression Pulmonary nodules Right lower quadrant pain Skin lesion Tobacco dependence Surgical History H/O LEEP H/O tubal ligation History of breast lump/mass excision History of lithotripsy Family History Family History Father Myocardial infarction Mother Lung cancer Brother Liver cancer Maternal Grandfather Stomach cancer Maternal Grandmother No problems noted. Social History Social History Housing: Apartment Alcohol intake: never Patient Tobacco Use Status: Current someday Tobacco user Cigarettes Per Day: 3 e-Cigarette/Vaping Use: Never Used Second Hand Smoke Exposure: No Use of substances other than those prescribed or required for medical reasons: No Advance Directives: No Advance Directives Information Provided: No service: No Current occupational status: disabled Gender identity: Female Physical Exam ED Vital Signs: Vital Signs - 24 hr 09/01/21 07:04 09/01/21 09:32 Temperature 98 F Pulse Rate 88 79 Respiratory Rate 19 20 Blood Pressure 151/90 H 142/87 H Pulse Oximetry 98 97 BMI result Body Mass Index 29.5 vital signs have been reviewed as appeared to be correct. Blood pressure normal. Heart rate normal. Respiration rate normal. Temperature normal. Oxygen saturation normal. Appearance: Alert. Oriented X3. No acute distress. Anxious Head: Normal external exam. Normocephalic. Atraumatic. No Goodrich signs noted. No raccoon eyes noted Eyes: PERRLA. EOMI. Conjunctiva and sclera normal. Eyelids normal. ENT: TM's Normal. Pharynx normal. Uvula midline. Moist mucous membranes. No trismus noted. No drooling noted. No muffled voice noted. Neck: Normal inspection. Neck supple. FROM. No adenopathy. Thyroid Normal. No meningeal signs. No neck mass noted. CVS: Normal heart rate and rhythm. Heart sound normal. No murmurs noted. Pulses normal throughout. Respiratory: No respiratory distress. Painless inspiration. Breath sounds normal. No wheezes/rales/rhonchi noted. Chest nontender. No accessory muscle usage noted or decreased air movement noted. Abdomen: Soft and nontender. Bowel sounds normal in all 4 quadrants. No distention noted. No organomegaly noted. No visible injury noted. Back: No CVA tenderness. Full range of motion noted. Skin: Skin warm and dry. Normal skin color. Normal skin turgor. No rashes/lesions/lacerations noted. Extremities: No lower extremity edema. Extremities exhibit normal range of motion. Extremities nontender. Neuro: Oriented X 3. Cranial nerve exam: II-XII are grossly intact No motor deficit. No sensory deficit. Reflexes normal. Course Course Course Narrative: Assessment and plan. 50-year-old female came in for evaluation chest pain. Patient has unremarkable cardiac workup patient has HEART SCORE OF2, story is more consistent of her chronic fibromyalgia, patient also have headache which is chronic and usually triggered as per patient when she has body ache. Unremarkable workup, unremarkable neuro exam and head CT. unremarkable chest x-ray and EKG. Medical Decision Making Medical Records Medical records reviewed: Yes I reviewed the patient's medical records. Lab Data Lab results reviewed: Yes I reviewed the patient's lab results. Result diagrams: 09/01/21 09:41 09/01/21 09:41 Labs: Lab Results 09/01/21 09/01/21 09/01/21 Range/Units 09:41 09:41 09:41 WBC 8.3 (4.8-10.8) X10*3/uL RBC 4.25 (4.20-5.50) X10*6/uL Hgb 11.4 L (12.0-16.0) g/dl Hct 35.8 L (37.0-47.0) % MCV 84.2 (80.0-98.0) fL MCH 26.8 L (27.0-33.0) pg MCHC 31.8 (31.0-35.0) g/dl RDW 14.6 (11.0-16.0) % Plt Count 297 (160-400) X10*3/uL MPV 10.5 (9.4-12.3) fL Immature Gran % (Auto) 0.4 (0.0-0.4) % Neut % (Auto) 56.3 (45-73) % Lymph % (Auto) 33.7 (20-40) % [place] % (Auto) 7.0 (2-11) % Eos % (Auto) 2.1 (0-4) % Baso % (Auto) 0.5 (0-2) % Lymph # (Auto) 2.8 (1.2-4.9) X10*3/uL [place] # (Auto) 0.6 (0.1-1.2) X10*3/uL Eos # (Auto) 0.2 (0.0-0.4) X10*3/uL Baso # (Auto) 0.0 (0.0-0.2) X10*3/uL Abs Immat Gran (auto) 0.03 (0.00-0.03) X10*3/uL Absolute Neuts (auto) 4.7 (2.0-8.3) x10*3/uL Absolute Nucleated RBC 0.000 (0.0-0.012) X10*3/uL Nucleated RBC % (auto) 0.0 (0.0-0.2) /100WBC Sodium 142 (135-145) mmol/L Potassium 3.1 L (3.3-5.1) mmol/L Chloride 102 (96-108) mmol/L Carbon Dioxide 29 (22-29) mmol/L Anion Gap 14 (12-20) BUN 11 (9-16) mg/dL Creatinine 0.74 (0.5-1.4) mg/dL Estim Creat Clear Calc 76.8 Estimated GFR > 60 Random Glucose 85 (60-115) mg/dL Calcium 9.5 (8.4-10.2) mg/dL Total Bilirubin 0.3 (0.0-1.0) mg/dL Direct Bilirubin 0.2 (0.0-0.5) mg/dL AST 19 (5-31) U/L ALT 16 (0-31) U/L Alkaline Phosphatase 99 (39-117) U/L Troponin I High Sens < 3.5 (<3.5-17.0) ng/L B-Natriuretic Peptide < 10 (<100) pg/mL Total Protein 7.4 (6.5-8.0) g/dL Albumin 4.2 (3.5-5.0) g/dL Lipase 32 (8-78) U/L Imaging Data CT scan - head: Attestation: I personally reviewed and interpreted this imaging study as follows: Radiologist's impression: No acute intracranial process seen ECG Data Attestation: I personally reviewed and interpreted this ECG as follows: Interpretation: Normal sinus rhythm at 73 beats per minute, normal axis deviation, normal intervals, no ST-T changes. Discharge Plan Discharge Clinical Impression: Fibromyalgia Patient Disposition: Home, Self-Care Instructions: Fibromyalgia (ED) Prescriptions: No Action hydrochlorothiazide 25 mg tablet 25 mg PO DAILY 30 Days Qty: 30 11RF albuterol sulfate 90 mcg/actuation HFA aerosol inhaler 2 puff PO Q4H PRN (Reason: bronchospasm) 30 Days Qty: 8.5 6RF clonazepam 0.5 mg tablet 0.5 mg PO BID PRN (Reason: anxiety) 30 Days Qty: 60 0RF fluticasone propionate [Flonase Allergy Relief] 50 mcg/actuation spray,suspension 2 spray intranasal Q12H 30 Days Qty: 16 0RF Rx Instructions: administer into each nostril Combivent Respimat 20-100 mcg/actuation mist 1 puff PO QID 30 Days Qty: 4 3RF pjewefeeek-zgdvcdzxshfyu-nnax 50-325-40 mg tablet 1 tab PO ONCE PRN (Reason: pain) 30 Days Qty: 30 0RF tramadol 50 mg tablet 50 mg PO Q8H PRN (Reason: pain) 30 Days Qty: 90 0RF carisoprodol [Soma] 350 mg tablet 350 mg PO TID PRN (Reason: muscle pain) Qty: 30 0RF loratadine [Claritin Liqui-Gel] 10 mg capsule 10 mg PO DAILY PRN (Reason: allergy symptoms) Qty: 30 0RF tizanidine 4 mg capsule 4 mg PO BEDTIME 20 Days Qty: 20 0RF cholecalciferol (vitamin D3) 50 mcg (2,000 unit) tablet 50 mcg PO DAILY 0RF azithromycin [Zithromax] 250 mg tablet See Rx Instructions PO .COMPLEX Qty: 6 0RF Rx Instructions: For 250 mg dose pack: take 500 mg today (day 1), then 250 mg for 4 days (days 2-5) PO clotrimazole 1 % cream 1 appful vaginal BEDTIME Qty: 45 3RF Rx Instructions: usa para picor vaginal Referrals: Neyda Foster MD [Primary Care Provider] - 2 days
[2021-09-01 09:32] VITALS: BP 142/87; PULSE 79; RESP 20; O2SAT 97
[2021-09-01] MEDS: oxyCODONE HCl Immed Release 5 MG TABLET PO (09:34)
[2021-09-01] MEDS: 0.9 % Sodium Chloride 1,000 ML 999 ML IV (09:42)
[2021-09-01 10:06] LABS: MANUAL DIFF FLAG NO
[2021-09-01 10:09] LABS: Basophils Percent Auto 0.5 % (0-2); Eosinophils Absolute Auto 0.2 X10*3/uL (0.0-0.4); Eosinophils Percent Auto 2.1 % (0-4); Hematocrit 35.8 % (37.0-47.0); Hemoglobin 11.4 g/dl (12.0-16.0); Imm Gran Abs Auto 0.03 X10*3/uL (0.00-0.03); Imm Gran Pct Auto 0.4 % (0.0-0.4); Lymphocytes Absolute Auto 2.8 X10*3/uL (1.2-4.9); Lymphocytes Percent Auto 33.7 % (20-40); Mean Corpuscular HGB Conc 31.8 g/dl (31.0-35.0); Mean Corpuscular Hemoglobin 26.8 pg (27.0-33.0); Mean Corpuscular Volume 84.2 fL (80.0-98.0); Mean Platelet Volume 10.5 fL (9.4-12.3); Monocytes Absolute Auto 0.6 X10*3/uL (0.1-1.2); Neutrophils Absolute Auto 4.7 x10*3/uL (2.0-8.3); Neutrophils Percent Auto 56.3 % (45-73); Platelet Count 297 X10*3/uL (160-400); Red Blood Count 4.25 X10*6/uL (4.20-5.50); Red Cell Distribution Width 14.6 % (11.0-16.0); White Blood Count 8.3 X10*3/uL (4.8-10.8)
[2021-09-01] MEDS: hydroCHLOROthiazide 50 MG TABLET PO (10:14)
[2021-09-01 10:29] LABS: Alanine Aminotransferase 16 U/L (0-31); Albumin Level 4.2 g/dL (3.5-5.0); Alkaline Phosphatase 99 U/L (39-117); Anion Gap 14 (12-20); Aspartate Amino Transferase 19 U/L (5-31); Bilirubin Direct 0.2 mg/dL (0.0-0.5); Bilirubin Total 0.3 mg/dL (0.0-1.0); Blood Urea Nitrogen 11 mg/dL (9-16); Calcium 9.5 mg/dL (8.4-10.2); Carbon Dioxide 29 mmol/L (22-29); Chloride 102 mmol/L (96-108); Creatinine Clr Calc Pharmacy 76.8; Estimated Glomerular Filt Rate > 60; Glucose Random 85 mg/dL (60-115); Lipase 32 U/L (8-78); Potassium 3.1 mmol/L (3.3-5.1); Sodium 142 mmol/L (135-145); Total Protein 7.4 g/dL (6.5-8.0)
[2021-09-01 10:36] LABS: B Type Natriuretic Peptide < 10 pg/mL (<100); Troponin-I High Sensitivity < 3.5 ng/L (<3.5-17.0)
[2021-09-01] MEDS: Potassium Chloride Packet 20 MEQ PACKET 40 MEQ PO (11:33)
== END 2021-09-01 11:45 | disposition home or self-care (01) ==
PROVIDERS: Emergency Provider Emergency Medicine; PCP Internal Medicine
DX: M79.7 Fibromyalgia (principal); I10 Essential (primary) hypertension; F17.200 Nicotine dependence, unspecified, uncomplicated
CPT/HCPCS: 36415; 70450; 71045; 80048; 80076; 83690; 83880; 84484; 85025; 93005; 96360; 99284; 99285

== ENCOUNTER 2021-09-21 22:55 | Emergency (ER) | payer OTHER, SELFPAY ==
--- NOTE | ~2021-09-21 | XR_ITS ---
EXAMINATION: XR CHEST CLINICAL INFORMATION: Chest pain. Shortness of breath. COMPARISON: Chest x-ray 09/01/2021 TECHNIQUE: Frontal view of the chest was obtained. 11:41 PM FINDINGS: Stable small calcified granuloma the right upper lobe peripherally. No acute airspace disease. No pulmonary vascular congestion or pleural effusion. Heart size is normal. Cardiac and mediastinal contours are normal. XR/XR chest 1V IMPRESSION: No acute abnormality of chest.
[2021-09-21 22:57] VITALS: BP 154/99; PULSE 95; RESP 16; TEMP 36.1; O2SAT 97; BMI 29.7
--- NOTE | 2021-09-21 23:01 | ECG_ITS ---
Test Reason : CHEST PAIN Blood Pressure : / mmHG Vent. Rate : 096 BPM Atrial Rate : 096 BPM P-R Int : 134 ms QRS Dur : 072 ms QT Int : 364 ms P-R-T Axes : 055 013 005 degrees QTc Int : 459 ms Normal sinus rhythm Nonspecific ST abnormality Abnormal ECG When compared with ECG of 01-SEP-2021 09:20, No significant change was found Referred By: Generic ED Physician Electronically Signed By:MARILU MANN MD
[2021-09-21 23:17] LABS: MANUAL DIFF FLAG NO
[2021-09-21 23:18] LABS: Basophils Percent Auto 0.4 % (0-2); Eosinophils Absolute Auto 0.2 X10*3/uL (0.0-0.4); Eosinophils Percent Auto 2.1 % (0-4); Hematocrit 35.9 % (37.0-47.0); Hemoglobin 11.4 g/dl (12.0-16.0); Imm Gran Abs Auto 0.02 X10*3/uL (0.00-0.03); Imm Gran Pct Auto 0.3 % (0.0-0.4); Lymphocytes Percent Auto 39.5 % (20-40); Mean Corpuscular HGB Conc 31.8 g/dl (31.0-35.0); Mean Corpuscular Hemoglobin 26.6 pg (27.0-33.0); Mean Corpuscular Volume 83.7 fL (80.0-98.0); Monocytes Absolute Auto 0.5 X10*3/uL (0.1-1.2); Monocytes Percent Auto 6.1 % (2-11); Neutrophils Absolute Auto 3.9 x10*3/uL (2.0-8.3); Neutrophils Percent Auto 51.6 % (45-73); Platelet Count 303 X10*3/uL (160-400); Red Blood Count 4.29 X10*6/uL (4.20-5.50); Red Cell Distribution Width 14.4 % (11.0-16.0); White Blood Count 7.6 X10*3/uL (4.8-10.8)
[2021-09-21 23:34] LABS: Anion Gap 14 (12-20); Blood Urea Nitrogen 12 mg/dL (9-16); Calcium 9.2 mg/dL (8.4-10.2); Carbon Dioxide 25 mmol/L (22-29); Chloride 105 mmol/L (96-108); Creatinine Clr Calc Pharmacy 65.5; Estimated Glomerular Filt Rate > 60; Glucose Random 125 mg/dL (60-115); Potassium 3.6 mmol/L (3.3-5.1); Sodium 140 mmol/L (135-145)
[2021-09-21 23:42] LABS: Troponin-I High Sensitivity < 3.5 ng/L (<3.5-17.0)
--- NOTE | 2021-09-22 00:51 | ED.EAR ---
HPI - Ear Problem General Chief complaint: Chest Pain Stated complaint: Ear ache Time Seen by Provider: 09/22/21 00:07 Source: patient and sign language interpreter Mode of arrival: ambulatory Limitations: no limitations History of Present Illness MD Complaint: ear pain, ear discharge and other (R sided sinus pressure, facial swelling, feels dizzy when she stands due to R sided ear congestion, made her heart race) Location: right ear Duration: constant (started last several hours) Severity: moderate Relieving factors: nothing Exacerbating factors: chewing, position of head and palpation Context: other (hx of sinusitis in the past) Discharge from ear: no Associated symptoms ear: decreased hearing, headache, external ear tenderness and ear swelling Treatment prior to arrival: none Related Data Previous Rx's Medication Instructions Recorded tizanidine 4 mg capsule 4 mg PO BEDTIME 20 Days #20 cap 06/08/20 hydrochlorothiazide 25 mg tablet 25 mg PO DAILY 30 Days #30 tab 04/18/21 carisoprodol 350 mg tablet (Soma) 350 mg PO TID PRN #30 tab 04/26/21 albuterol sulfate 90 mcg/actuation 2 puff PO Q4H PRN 30 Days #8.5 g 05/24/21 aerosol inhaler loratadine 10 mg capsule (Claritin 10 mg PO DAILY PRN #30 cap 06/17/21 Liqui-Gel) clonazepam 0.5 mg tablet 0.5 mg PO BID PRN 30 Days #60 tab 07/11/21 ipratropium 20 mcg-albuterol 100 1 puff PO QID 30 Days #4 ml 07/27/21 mcg/actuation mist for inhalation (Combivent Respimat) clotrimazole 1 % vaginal cream 1 appful VAGINAL BEDTIME #45 g 07/28/21 gsgugdjtuy-ldcsfhzymccgp-uemkwsqf 1 tab PO ONCE PRN 30 Days #30 tab 08/26/21 50 mg-325 mg-40 mg tablet tramadol 50 mg tablet 50 mg PO Q8H PRN 30 Days #90 tab 08/29/21 cholecalciferol (vitamin D3) 50 50 mcg PO DAILY 90 Days #90 tab 09/05/21 mcg (2,000 unit) tablet fluticasone propionate 50 2 spray INTRANASAL Q12H 30 Days 09/05/21 mcg/actuation nasal #16 g spray,suspension (Flonase Allergy Relief) amoxicillin 875 mg-potassium 1 tab PO BID #14 tab 09/22/21 clavulanate 125 mg tablet hydrocodone 5 mg-acetaminophen 325 1 tab PO Q6H PRN #8 tab 09/22/21 mg tablet ofloxacin 0.3 % ear drops 10 drp OTIC (EARS) DAILY 7 Days #5 09/22/21 ml ondansetron 4 mg disintegrating 4 mg PO Q8H PRN #20 tab 09/22/21 tablet prednisone 20 mg tablet 40 mg PO DAILY 4 Days #8 tab 09/22/21 Allergies Allergy/AdvReac Type Severity Reaction Status Date / Time amitriptyline Allergy Intermediate headache Verified 09/21/21 23:01 ibuprofen [From Motrin] Allergy Intermediate ITCHY RASH Verified 09/21/21 23:01 gabapentin AdvReac Intermediate vomiting Verified 09/21/21 23:01 Review of Systems Review of Systems: Constitutional : No Weight loss, No Fever, No Chills ENT/Mouth : No sore throat, No Rhinorrhea, pos ear pain, pos sinus pressure, pos facial pain Eyes: No Eye Pain, No Swelling Cardiovascular : pos Chest Pain, pos SOB, no Dyspnea on Exertion, No Orthopnea, No Edema, No Palpitations Respiratory : No Cough, No Sputum Gastrointestinal : no Nausea, No Vomiting, No Diarrhea, No abdominal Pain, No Hematochezia, No Melena Genitourinary : No Dysuria, No Urinary Frequency Musculoskeletal : No joint pain, No Myalgias, No Joint Swelling Skin : No Skin Lesions, No rash Neuro : No Weakness, No Numbness, No Dizziness, pos Headache Psych : pos Anxiety/Panic, No Depression Heme/Lymph: No Bruising, No Lymphadenopathy Endocrine : No Polyuria, No Polydipsia All other systems reviewed and are negative [facility] Past Medical History Attestation statement: The following information was validated with the patient. Medical History Anxiety Blurry vision Cervical cancer screening Depression Dyslipidemia Dyspnea Epigastric pain Essential hypertension Fibromyalgia GERD (gastroesophageal reflux disease) Goiter Hand pain Has daytime drowsiness HTN (hypertension) Leg pain, bilateral Migraine Moderate recurrent major depression Physical exam Pulmonary nodules Right lower quadrant pain Skin lesion Tobacco dependence Surgical History H/O LEEP H/O tubal ligation History of breast lump/mass excision History of lithotripsy Family History Family History Father Myocardial infarction Mother Lung cancer Brother Liver cancer Maternal Grandfather Stomach cancer Maternal Grandmother No problems noted. Social History Social History Housing: Apartment Alcohol intake: never Patient Tobacco Use Status: Current someday Tobacco user Cigarettes Per Day: 3 e-Cigarette/Vaping Use: Never Used Second Hand Smoke Exposure: No Advance Directives: No Advance Directives Information Provided: No service: No Current occupational status: disabled Gender identity: Female Physical Exam Vital Signs: Vital Signs: Last Vital Signs Temp 97 F 09/21/21 22:57 Pulse 78 09/22/21 00:54 Resp 14 09/22/21 00:54 BP 156/87 H 09/22/21 00:54 Pulse Ox 97 09/22/21 00:54 BMI result Body Mass Index 29.7 Appearance: Alert. Oriented X3. No acute distress. Eyes: Pupils equal, round and reactive to light. ENT: Pharynx normal. no intraoral swelling, R ear no ext swelling noted of pinna but ext canal moderate swelling with erythema and scant exudate - TM is bulging with erthema and purulent effusion no perforation seen, ttp along preauricular area and over max sinus no mastoid ttp Neck: Normal inspection. Neck supple. no meningeal signs CVS: Normal heart rate and rhythm. Pulses normal. Respiratory: No respiratory distress. Breath sounds normal. Abdomen: Soft and nontender. Skin: Skin warm and dry. Normal skin color. Normal skin turgor. Extremities: No lower extremity edema. No calf ttp Neuro: Oriented X 3. No motor deficit. No sensory deficit. MDM - Ear MDM Narrative Medical decision making narrative: 50 yo female with hx of otitis media, TMJ syndrome, sinusitis, at this time here with R sided AOM, otitis externa and likely sinusitis she has no neuro deficits will start on drops, oral antibiotics and steroids. She is not toxic, her chest pain was due to panic from her ear bothering her. Can follow up with PCP. Localized infection no signs of external ear involvement no mastoid ttp. Lab Data Result diagrams: 09/21/21 23:11 09/21/21 23:11 Labs: Lab Results 09/21/21 09/21/21 09/21/21 Range/Units 23:11 23:11 23:11 WBC 7.6 (4.8-10.8) X10*3/uL RBC 4.29 (4.20-5.50) X10*6/uL Hgb 11.4 L (12.0-16.0) g/dl Hct 35.9 L (37.0-47.0) % MCV 83.7 (80.0-98.0) fL MCH 26.6 L (27.0-33.0) pg MCHC 31.8 (31.0-35.0) g/dl RDW 14.4 (11.0-16.0) % Plt Count 303 (160-400) X10*3/uL MPV 10.0 (9.4-12.3) fL Immature Gran % (Auto) 0.3 (0.0-0.4) % Neut % (Auto) 51.6 (45-73) % Lymph % (Auto) 39.5 (20-40) % [place] % (Auto) 6.1 (2-11) % Eos % (Auto) 2.1 (0-4) % Baso % (Auto) 0.4 (0-2) % Lymph # (Auto) 3.0 (1.2-4.9) X10*3/uL [place] # (Auto) 0.5 (0.1-1.2) X10*3/uL Eos # (Auto) 0.2 (0.0-0.4) X10*3/uL Baso # (Auto) 0.0 (0.0-0.2) X10*3/uL Abs Immat Gran (auto) 0.02 (0.00-0.03) X10*3/uL Absolute Neuts (auto) 3.9 (2.0-8.3) x10*3/uL Absolute Nucleated RBC 0.000 (0.0-0.012) X10*3/uL Nucleated RBC % (auto) 0.0 (0.0-0.2) /100WBC Sodium 140 (135-145) mmol/L Potassium 3.6 (3.3-5.1) mmol/L Chloride 105 (96-108) mmol/L Carbon Dioxide 25 (22-29) mmol/L Anion Gap 14 (12-20) BUN 12 (9-16) mg/dL Creatinine 0.87 (0.5-1.4) mg/dL Estim Creat Clear Calc 65.5 Estimated GFR > 60 Random Glucose 125 H (60-115) mg/dL Calcium 9.2 (8.4-10.2) mg/dL Troponin I High Sens < 3.5 (<3.5-17.0) ng/L ECG Data Attestation: I personally reviewed and interpreted this ECG as follows: ECG interpretation date: 09/22/21 ECG interpretation time: 00:52 Interpretation: Rate: 96 Rhythm: NSR Hardy: normal Normal P waves. Normal ALLAN. Normal QRS complex. ST T wave : nonspecific no TING qTC: normal prior studies: no acute ischemia The study has been interpreted contemporaneously by me. Discharge Plan Discharge Clinical Impression: Otitis media Qualifiers: Otitis media type: suppurative Chronicity: acute Laterality: right Recurrence: non-recurrent Spontaneous tympanic membrane rupture: without spontaneous rupture Qualified Code(s): H66.001 - Acute suppurative otitis media without spontaneous rupture of ear drum, right ear Otitis externa Qualifiers: Otitis externa type: diffuse Chronicity: acute Laterality: right Qualified Code(s): H60.311 - Diffuse otitis externa, right ear Acute maxillary sinusitis Qualifiers: Recurrence: recurrent Qualified Code(s): J01.01 - Acute recurrent maxillary sinusitis Patient Disposition: Home, Self-Care Instructions: Sinusitis (ED), Otitis Externa (ED), Ear Infection (ED) Additional Instructions: return to ED for any worsening symptoms or concerns Prescriptions: New hydrocodone-acetaminophen 5-325 mg tablet 1 tab PO Q6H PRN (Reason: pain) Qty: 8 0RF prednisone 20 mg tablet 40 mg PO DAILY 4 Days Qty: 8 0RF ondansetron 4 mg tablet,disintegrating 4 mg PO Q8H PRN (Reason: nausea and vomiting) Qty: 20 0RF amoxicillin-pot clavulanate 875-125 mg tablet 1 tab PO BID Qty: 14 0RF ofloxacin 0.3 % drops 10 drp otic (ears) DAILY 7 Days Qty: 5 0RF No Action hydrochlorothiazide 25 mg tablet 25 mg PO DAILY 30 Days Qty: 30 11RF albuterol sulfate 90 mcg/actuation HFA aerosol inhaler 2 puff PO Q4H PRN (Reason: bronchospasm) 30 Days Qty: 8.5 6RF clonazepam 0.5 mg tablet 0.5 mg PO BID PRN (Reason: anxiety) 30 Days Qty: 60 0RF Combivent Respimat 20-100 mcg/actuation mist 1 puff PO QID 30 Days Qty: 4 3RF jhjjtaplql-usxsvjcorfjny-jmwf 50-325-40 mg tablet 1 tab PO ONCE PRN (Reason: pain) 30 Days Qty: 30 0RF tramadol 50 mg tablet 50 mg PO Q8H PRN (Reason: pain) 30 Days Qty: 90 0RF carisoprodol [Soma] 350 mg tablet 350 mg PO TID PRN (Reason: muscle pain) Qty: 30 0RF loratadine [Claritin Liqui-Gel] 10 mg capsule 10 mg PO DAILY PRN (Reason: allergy symptoms) Qty: 30 0RF tizanidine 4 mg capsule 4 mg PO BEDTIME 20 Days Qty: 20 0RF cholecalciferol (vitamin D3) 50 mcg (2,000 unit) tablet 50 mcg PO DAILY 90 Days Qty: 90 1RF fluticasone propionate [Flonase Allergy Relief] 50 mcg/actuation spray,suspension 2 spray intranasal Q12H 30 Days Qty: 16 0RF Rx Instructions: administer into each nostril clotrimazole 1 % cream 1 appful vaginal BEDTIME Qty: 45 3RF Rx Instructions: usa para picor vaginal Referrals: Neyda Foster MD [Primary Care Provider] - 2 days (if not better) Interventions: ED Discharge Assessment Last Done: 09/22/21 02:00 Discharge Date/Time: 09/22/21 02:01 Print Language: Vietnamese
[2021-09-22 00:54] VITALS: BP 156/87; PULSE 78; RESP 14; O2SAT 97
[2021-09-22] MEDS: Ondansetron ODT 4 MG TAB.RAPDIS TRANSLINGU (01:55)
[2021-09-22] MEDS: oxyCODONE HCl Immed Release 5 MG TABLET 10 MG PO (01:55)
[2021-09-22] MEDS: Amoxicillin/Potassium Clav 875 MG TABLET PO (01:55)
[2021-09-22] MEDS: predniSONE 20 MG TABLET 40 MG PO (01:56)
--- NOTE | 2021-09-22 02:00 | PC.NURSE ---
Discharged at this time.The pt verbalized an understanding of all DC orders and she ambulated out of the ED independently and with steady gait.
== END 2021-09-22 02:01 | disposition home or self-care (01) ==
PROVIDERS: Emergency Provider Emergency Medicine; PCP Internal Medicine
DX: H66.001 Acute suppurative otitis media without spontaneous rupture of ear drum, right ear (principal); H60.311 Diffuse otitis externa, right ear; R07.89 Other chest pain; J01.01 Acute recurrent maxillary sinusitis; H92.03 Otalgia, bilateral; Z79.899 Other long term (current) drug therapy
CPT/HCPCS: 36415; 71045; 80048; 84484; 85025; 93005; 99284

== ENCOUNTER 2021-09-28 18:26 | Emergency (ER) | payer OTHER, SELFPAY ==
[2021-09-28 19:50] VITALS: BP 155/90; PULSE 82; RESP 19; TEMP 36.4; O2SAT 95; BMI 25.7
== END 2021-09-28 22:23 | disposition left against medical advice (07) ==
LOC: HO.ED 22:24
PROVIDERS: Emergency Provider Emergency Medicine; PCP Internal Medicine
DX: H92.01 Otalgia, right ear (principal); R42 Dizziness and giddiness
CPT/HCPCS: 99282; 99283

== ENCOUNTER 2021-09-29 12:37 | Emergency (ER) | payer OTHER, SELFPAY ==
--- NOTE | ~2021-09-29 | CT_ITS ---
EXAMINATION: CT MASTOID. CLINICAL INFORMATION: Right mastoid tenderness, dizziness and pain COMPARISON: None TECHNIQUE: Axial 0.6 mm thin and reformatted 0.6 mm thin sagittal and coronal images of mastoid sinuses were obtained without contrast. DLP [id number] FINDINGS: There is normal bilateral aeration of mastoid sinuses without any mucoperiosteal thickening. Visualized internal auditory canal, cochlear canal,, cochlea and the vestibule are symmetrical and normal. The middle ear ossicles, the scrotum and visualized tympanic membrane are symmetrical. Bilateral external auditory canal is unremarkable. No soft tissue mass seen in middle or external ear. There is no bony erosive changes involving the bony cortex of the mastoids. Bilateral TM joints are symmetric and normal. There is no soft tissue mass, inflammatory abscess or fluid collection adjacent to the either mastoid sinuses. The visualized sphenoid sinuses are clear. Incidental finding of a small polyp or retention cyst left maxillary sinus. Rest the visualized paranasal sinuses are clear. CT/CT mastoid IMPRESSION: Unremarkable CT mastoid exam. Especially there is no abnormality seen surrounding the right mastoid sinus on the right petrous bone.
[2021-09-29 13:10] VITALS: BP 134/88; PULSE 82; RESP 16; TEMP 37; O2SAT 98; BMI 29.5
--- NOTE | 2021-09-29 13:20 | ED.EAR ---
HPI - Ear Problem General Chief complaint: Ear Problems Stated complaint: dizzy ear pain facial pain headache Time Seen by Provider: 09/29/21 13:19 Source: patient Mode of arrival: ambulatory Limitations: no limitations History of Present Illness HPI Narrative: 50-year-old female with a history of sinusitis, recent ear infection who completed 1 week of abx today who presents to the ER with ongoing right-sided ear pain, reports of facial swelling and feeling dizzy with movement. She was seen here on 09/22 for the same and discharged with Augmentin, ofloxacin, zofran, prednisone and Vicoden. She reports compliance with her medications but no improvement in her symptoms. She reports pain and swelling behind the right ear and within her ear. She has ongoing nasal congestion and watery eyes. Only intermittently takes Claritin for allergies. No fever or chills, no sore throat. MD Complaint: ear pain Location: right ear Duration: constant Severity: moderate Relieving factors: nothing Exacerbating factors: nothing Context: recent illness Discharge from ear: no Associated symptoms ear: headache, external ear tenderness, ear swelling and rhinorrhea Treatment prior to arrival: eardrops and oral analgesic Related Data Previous Rx's Medication Instructions Recorded tizanidine 4 mg capsule 4 mg PO BEDTIME 20 Days #20 cap 06/08/20 hydrochlorothiazide 25 mg tablet 25 mg PO DAILY 30 Days #30 tab 04/18/21 carisoprodol 350 mg tablet (Soma) 350 mg PO TID PRN #30 tab 04/26/21 albuterol sulfate 90 mcg/actuation 2 puff PO Q4H PRN 30 Days #8.5 g 05/24/21 aerosol inhaler ipratropium 20 mcg-albuterol 100 1 puff PO QID 30 Days #4 ml 07/27/21 mcg/actuation mist for inhalation (Combivent Respimat) clotrimazole 1 % vaginal cream 1 appful VAGINAL BEDTIME #45 g 07/28/21 dxlfzstlem-fedhhsmvfbrwc-bkltaiap 1 tab PO ONCE PRN 30 Days #30 tab 08/26/21 50 mg-325 mg-40 mg tablet cholecalciferol (vitamin D3) 50 50 mcg PO DAILY 90 Days #90 tab 09/05/21 mcg (2,000 unit) tablet fluticasone propionate 50 2 spray INTRANASAL Q12H 30 Days 09/05/21 mcg/actuation nasal #16 g spray,suspension (Flonase Allergy Relief) amoxicillin 875 mg-potassium 1 tab PO BID #14 tab 09/22/21 clavulanate 125 mg tablet hydrocodone 5 mg-acetaminophen 325 1 tab PO Q6H PRN #8 tab 09/22/21 mg tablet ofloxacin 0.3 % ear drops 10 drp OTIC (EARS) DAILY 7 Days #5 09/22/21 ml ondansetron 4 mg disintegrating 4 mg PO Q8H PRN #20 tab 09/22/21 tablet prednisone 20 mg tablet 40 mg PO DAILY 4 Days #8 tab 09/22/21 clonazepam 0.5 mg tablet 0.5 mg PO BID PRN 30 Days #60 tab 09/25/21 levofloxacin 500 mg tablet 500 mg PO Q24H #7 tab 09/29/21 loratadine 10 mg capsule (Claritin 10 mg PO DAILY PRN #30 cap 09/29/21 Liqui-Gel) meclizine 25 mg tablet 25 mg PO BID PRN #10 tab 09/29/21 tramadol 50 mg tablet 50 mg PO Q8H PRN 30 Days #90 tab 09/29/21 Allergies Allergy/AdvReac Type Severity Reaction Status Date / Time amitriptyline Allergy Intermediate headache Verified 09/27/21 13:56 ibuprofen [From Motrin] Allergy Intermediate ITCHY RASH Verified 09/27/21 13:56 gabapentin AdvReac Intermediate vomiting Verified 09/27/21 13:56 Review of Systems Review of Systems: Constitutional: No Fever, No Chills ENT/Mouth: No sore throat, +Rhinorrhea, No Swallowing Difficulty, +Otalgia, No hearing loss Eyes: No Eye Pain, No Swelling, No Redness, +watery eyes Cardiovascular: No Chest Pain, No SOB Respiratory: No Cough, No Sputum, No Wheezing, No dyspnea Gastrointestinal: No Nausea, No Vomiting, No Diarrhea, No abdominal Pain Genitourinary: No Dysuria, No Urinary Frequency, No Hematuria Musculoskeletal: No joint pain, No Myalgias Skin: No Skin Lesions, No rash Neuro: No Weakness, No Numbness, +Dizziness, + Headache Psych: No Anxiety/Panic, No Depression Heme/Lymph: No Bruising, + Lymphadenopathy PMFSH Past Medical History Medical History (Updated 09/29/21 @ 16:46 by MARLENA Philip) Acute maxillary sinusitis Anxiety Blurry vision Cervical cancer screening Depression Dyslipidemia Dyspnea Epigastric pain Essential hypertension Fibromyalgia GERD (gastroesophageal reflux disease) Goiter Hand pain Has daytime drowsiness Hospital discharge follow-up HTN (hypertension) Leg pain, bilateral Microscopic hematuria Migraine Moderate recurrent major depression Otitis externa Physical exam Pulmonary nodules Right lower quadrant pain Skin lesion Tobacco dependence Surgical History H/O LEEP H/O tubal ligation History of breast lump/mass excision History of lithotripsy Family History Family History Father Myocardial infarction Mother Lung cancer Brother Liver cancer Maternal Grandfather Stomach cancer Maternal Grandmother No problems noted. Social History Social History Housing: Apartment Alcohol intake: never Patient Tobacco Use Status: Current someday Tobacco user Cigarettes Per Day: 3 e-Cigarette/Vaping Use: Never Used Second Hand Smoke Exposure: No Advance Directives: No Advance Directives Information Provided: Yes service: No Current occupational status: disabled Gender identity: Female Cognitive needs: No Hearing needs: No Vision needs: No Physical Exam Vital Signs: Vital Signs: Last Vital Signs Temp 98.6 F 09/29/21 13:10 Pulse 82 09/29/21 13:10 Resp 16 09/29/21 13:10 BP 134/88 09/29/21 13:10 Pulse Ox 98 09/29/21 13:10 BMI result Body Mass Index 29.5 Appearance: Alert. Oriented X3. No acute distress. Eyes: Pupils equal, round and reactive to light. ENT: Mild posterior pharyngeal erythema without tonsillar exudates, uvula midline. nasal turbinates are erythematous with clear nasal discharge. left EAC and TM normal. right EAC erythematous without swelling, tender+. Mild erythema of the TM with effusion, no bulging or loss of land cohen. Erythema and tenderness behind the ear and over the mastoid without fluctuance Neck: Normal inspection. Neck supple. CVS: Normal heart rate and rhythm. Pulses normal. Respiratory: No respiratory distress. Breath sounds normal. Abdomen: Soft and nontender. +BS x4 Skin: Skin warm and dry. Normal skin color. Normal skin turgor. No rashes. Extremities: No lower extremity edema. Neuro: Oriented X 3. No motor deficit. No sensory deficit. CN II-XII intact Course Course Course Narrative: 50 y/o female with hsistory of fibromyalgia, hx COVID Jun 2021, recent ear infection and possible sinusitis who is finishing her 7th day of augmentin today presents with persistent right ear pain, intermittent dizziness, nasal congestion and now has posterior ear redness and swelling. Will get CT scan to r/o mastoiditis. Reevaluation(s) Reevaluation #1: CT scan is normal. Blood work normal. COVID and flu negative. Will plan to treat for resistant and recurring ear infection with p.o. Levaquin and refer to ENT for further evaluation. Will also give p.r.n. meclizine for dizziness given this most likely due to inner ear problem. Patient stable for discharge home with outpatient follow-up. Agrees with plan. MDM - Ear Lab Data Result diagrams: 09/29/21 13:55 09/29/21 13:55 Labs: Lab Results 09/29/21 09/29/21 09/29/21 Range/Units 13:48 13:49 13:55 WBC 9.6 (4.8-10.8) X10*3/uL RBC 4.62 (4.20-5.50) X10*6/uL Hgb 12.3 (12.0-16.0) g/dl Hct 38.5 (37.0-47.0) % MCV 83.3 (80.0-98.0) fL MCH 26.6 L (27.0-33.0) pg MCHC 31.9 (31.0-35.0) g/dl RDW 14.2 (11.0-16.0) % Plt Count 329 (160-400) X10*3/uL MPV 10.0 (9.4-12.3) fL Immature Gran % (Auto) 0.4 (0.0-0.4) % Neut % (Auto) 64.0 (45-73) % Lymph % (Auto) 28.1 (20-40) % [place] % (Auto) 6.4 (2-11) % Eos % (Auto) 0.7 (0-4) % Baso % (Auto) 0.4 (0-2) % Lymph # (Auto) 2.7 (1.2-4.9) X10*3/uL [place] # (Auto) 0.6 (0.1-1.2) X10*3/uL Eos # (Auto) 0.1 (0.0-0.4) X10*3/uL Baso # (Auto) 0.0 (0.0-0.2) X10*3/uL Abs Immat Gran (auto) 0.04 H (0.00-0.03) X10*3/uL Absolute Neuts (auto) 6.2 (2.0-8.3) x10*3/uL Absolute Nucleated RBC 0.000 (0.0-0.012) X10*3/uL Nucleated RBC % (auto) 0.0 (0.0-0.2) /100WBC Sodium (135-145) mmol/L Potassium (3.3-5.1) mmol/L Chloride (96-108) mmol/L Carbon Dioxide (22-29) mmol/L Anion Gap (12-20) BUN (9-16) mg/dL Creatinine (0.5-1.4) mg/dL Estim Creat Clear Calc Estimated GFR Random Glucose (60-115) mg/dL Calcium (8.4-10.2) mg/dL C-Reactive Protein (< or = 0.50) mg/dL COVID-19 ([facility]) Negative (Negative) COVID-19 Clin Com See Note Influenza Type A (DANTE) Negative (Negative) Influenza Type B (DANTE) Negative (Negative) Influenza A & B Note See Note 09/29/21 Range/Units 13:55 WBC (4.8-10.8) X10*3/uL RBC (4.20-5.50) X10*6/uL Hgb (12.0-16.0) g/dl Hct (37.0-47.0) % MCV (80.0-98.0) fL MCH (27.0-33.0) pg MCHC (31.0-35.0) g/dl RDW (11.0-16.0) % Plt Count (160-400) X10*3/uL MPV (9.4-12.3) fL Immature Gran % (Auto) (0.0-0.4) % Neut % (Auto) (45-73) % Lymph % (Auto) (20-40) % [place] % (Auto) (2-11) % Eos % (Auto) (0-4) % Baso % (Auto) (0-2) % Lymph # (Auto) (1.2-4.9) X10*3/uL [place] # (Auto) (0.1-1.2) X10*3/uL Eos # (Auto) (0.0-0.4) X10*3/uL Baso # (Auto) (0.0-0.2) X10*3/uL Abs Immat Gran (auto) (0.00-0.03) X10*3/uL Absolute Neuts (auto) (2.0-8.3) x10*3/uL Absolute Nucleated RBC (0.0-0.012) X10*3/uL Nucleated RBC % (auto) (0.0-0.2) /100WBC Sodium 140 (135-145) mmol/L Potassium 4.0 (3.3-5.1) mmol/L Chloride 102 (96-108) mmol/L Carbon Dioxide 29 (22-29) mmol/L Anion Gap 13 (12-20) BUN 15 (9-16) mg/dL Creatinine 0.79 (0.5-1.4) mg/dL Estim Creat Clear Calc 71.9 Estimated GFR > 60 Random Glucose 70 (60-115) mg/dL Calcium 9.8 D (8.4-10.2) mg/dL C-Reactive Protein 1.27 H (< or = 0.50) mg/dL COVID-19 ([facility]) (Negative) COVID-19 Clin Com Influenza Type A (DANTE) (Negative) Influenza Type B (DANTE) (Negative) Influenza A & B Note Discharge Plan Discharge Clinical Impression: Ear infection Patient Disposition: Home, Self-Care Instructions: Ear Infection (ED) Additional Instructions: Your lab workup and CT scan today were unremarkable. Your negative for COVID-19 and influenza. Take the prescribed antibiotic as directed, complete the entire course. Take the prescribed medication as needed for dizziness. Recommend starting your daily Claritin and using Flonase every day to treat your allergies. Follow-up with your doctor within 1 week. If you have ongoing symptoms recommend following up with gear tester, name and number below. If you develop new or worsening symptoms call 911 or come back to the ER for further evaluation. Prescriptions: New levofloxacin 500 mg tablet 500 mg PO Q24H Qty: 7 0RF meclizine 25 mg tablet 25 mg PO BID PRN (Reason: dizziness) Qty: 10 0RF No Action hydrochlorothiazide 25 mg tablet 25 mg PO DAILY 30 Days Qty: 30 11RF albuterol sulfate 90 mcg/actuation HFA aerosol inhaler 2 puff PO Q4H PRN (Reason: bronchospasm) 30 Days Qty: 8.5 6RF Combivent Respimat 20-100 mcg/actuation mist 1 puff PO QID 30 Days Qty: 4 3RF ykszoafkit-nrtbswngoqkcm-sbca 50-325-40 mg tablet 1 tab PO ONCE PRN (Reason: pain) 30 Days Qty: 30 0RF clonazepam 0.5 mg tablet 0.5 mg PO BID PRN (Reason: anxiety) 30 Days Qty: 60 0RF loratadine [Claritin Liqui-Gel] 10 mg capsule 10 mg PO DAILY PRN (Reason: allergy symptoms) Qty: 30 0RF tramadol 50 mg tablet 50 mg PO Q8H PRN (Reason: pain) 30 Days Qty: 90 0RF carisoprodol [Soma] 350 mg tablet 350 mg PO TID PRN (Reason: muscle pain) Qty: 30 0RF hydrocodone-acetaminophen 5-325 mg tablet 1 tab PO Q6H PRN (Reason: pain) Qty: 8 0RF prednisone 20 mg tablet 40 mg PO DAILY 4 Days Qty: 8 0RF ondansetron 4 mg tablet,disintegrating 4 mg PO Q8H PRN (Reason: nausea and vomiting) Qty: 20 0RF amoxicillin-pot clavulanate 875-125 mg tablet 1 tab PO BID Qty: 14 0RF ofloxacin 0.3 % drops 10 drp otic (ears) DAILY 7 Days Qty: 5 0RF tizanidine 4 mg capsule 4 mg PO BEDTIME 20 Days Qty: 20 0RF cholecalciferol (vitamin D3) 50 mcg (2,000 unit) tablet 50 mcg PO DAILY 90 Days Qty: 90 1RF fluticasone propionate [Flonase Allergy Relief] 50 mcg/actuation spray,suspension 2 spray intranasal Q12H 30 Days Qty: 16 0RF Rx Instructions: administer into each nostril clotrimazole 1 % cream 1 appful vaginal BEDTIME Qty: 45 3RF Rx Instructions: usa para picor vaginal Referrals: Valentin Jackson [Physician] - 2 weeks (Recurrent ear infection, dizziness)
[2021-09-29 14:08] LABS: MANUAL DIFF FLAG NO
[2021-09-29 14:11] LABS: Basophils Percent Auto 0.4 % (0-2); Eosinophils Absolute Auto 0.1 X10*3/uL (0.0-0.4); Eosinophils Percent Auto 0.7 % (0-4); Hematocrit 38.5 % (37.0-47.0); Hemoglobin 12.3 g/dl (12.0-16.0); Imm Gran Abs Auto 0.04 X10*3/uL (0.00-0.03); Imm Gran Pct Auto 0.4 % (0.0-0.4); Lymphocytes Absolute Auto 2.7 X10*3/uL (1.2-4.9); Lymphocytes Percent Auto 28.1 % (20-40); Mean Corpuscular HGB Conc 31.9 g/dl (31.0-35.0); Mean Corpuscular Hemoglobin 26.6 pg (27.0-33.0); Mean Corpuscular Volume 83.3 fL (80.0-98.0); Monocytes Absolute Auto 0.6 X10*3/uL (0.1-1.2); Monocytes Percent Auto 6.4 % (2-11); Neutrophils Absolute Auto 6.2 x10*3/uL (2.0-8.3); Platelet Count 329 X10*3/uL (160-400); Red Blood Count 4.62 X10*6/uL (4.20-5.50); Red Cell Distribution Width 14.2 % (11.0-16.0); White Blood Count 9.6 X10*3/uL (4.8-10.8)
[2021-09-29 14:23] LABS: Influenza A Negative (Negative); Influenza B2 Negative (Negative)
[2021-09-29 14:27] LABS: Anion Gap 13 (12-20); Blood Urea Nitrogen 15 mg/dL (9-16); C Reactive Protein 1.27 mg/dL (< or = 0.50); Calcium 9.8 mg/dL (8.4-10.2); Carbon Dioxide 29 mmol/L (22-29); Chloride 102 mmol/L (96-108); Creatinine Clr Calc Pharmacy 71.9; Estimated Glomerular Filt Rate > 60; Glucose Random 70 mg/dL (60-115); Sodium 140 mmol/L (135-145)
[2021-09-29 14:31] LABS: COVID-19 Test Negative (Negative); IDNOW Serial# 55D5AD1C
== END 2021-09-29 16:53 | disposition home or self-care (01) ==
PROVIDERS: Physician Assistant; Emergency Provider Emergency Medicine; PCP Internal Medicine
DX: H60.91 Unspecified otitis externa, right ear (principal); Z20.822 Contact with and (suspected) exposure to COVID-19; H92.01 Otalgia, right ear; F17.200 Nicotine dependence, unspecified, uncomplicated
CPT/HCPCS: 70481; 80048; 85025; 86140; 87502; 87635; 99283; 99284

== ENCOUNTER 2021-12-02 13:32 | Emergency (ER) | payer OTHER, SELFPAY ==
[2021-12-02 13:34] VITALS: BP 147/94; PULSE 94; RESP 18; TEMP 37.1; O2SAT 97; BMI 29.9
--- NOTE | 2021-12-02 13:42 | ED_ITS ---
HPI - Ear Problem General Chief complaint: Ear Problems Stated complaint: ear/face pain. headaches Time Seen by Provider: 12/02/21 13:41 Source: patient Mode of arrival: ambulatory Limitations: no limitations History of Present Illness HPI Narrative: 1-year-old female with history of fibromyalgia, recurrent right-sided ear infections, sinusitis who presents to the ER for evaluation of recurrent right ear pain that started 3 days ago. It feels similar to when she has had ear infections in the past. She was last on antibiotics in the middle of September with resolution of her symptoms. She never followed up with ENT. She reports the pain now is in the right ear, extends to her right cheek and is worse when she lays down. She has been using some sort of drop but she is unsure which. She denies any drainage or hearing loss. No fevers. MD Complaint: ear pain Location: right ear Duration: constant Severity: severe Relieving factors: nothing Exacerbating factors: chewing, position of head and palpation Discharge from ear: no Associated symptoms ear: headache and external ear tenderness Treatment prior to arrival: eardrops Related Data Previous Rx's Medication Instructions Recorded tizanidine 4 mg capsule 4 mg PO BEDTIME 20 days #20 caps 06/08/20 carisoprodol 350 mg tablet (Soma) 350 mg PO TID PRN muscle pain #30 04/26/21 tabs albuterol sulfate 90 mcg/actuation 2 puff PO Q4H PRN bronchospasm 30 05/24/21 aerosol inhaler days #8.5 grams clotrimazole 1 % vaginal cream 1 appful vaginal BEDTIME #45 grams 07/28/21 cholecalciferol (vitamin D3) 50 50 mcg PO DAILY 90 days #90 tabs 09/05/21 mcg (2,000 unit) tablet hydrocodone 5 mg-acetaminophen 325 1 tab PO Q6H PRN pain #8 tabs 09/22/21 mg tablet ofloxacin 0.3 % ear drops 10 drp otic (ears) DAILY 7 days #5 09/22/21 mL ondansetron 4 mg disintegrating 4 mg PO Q8H PRN nausea and 09/22/21 tablet vomiting #20 tabs meclizine 25 mg tablet 25 mg PO BID PRN dizziness #10 tabs 09/29/21 fluticasone propionate 50 2 spray intranasal Q12H 30 days 10/03/21 mcg/actuation nasal #16 grams spray,suspension (Flonase Allergy Relief) ipratropium 20 mcg-albuterol 100 1 puff PO QID 30 days #4 mL 10/03/21 mcg/actuation mist for inhalation (Combivent Respimat) loratadine 10 mg capsule (Claritin 10 mg PO DAILY PRN allergy 10/03/21 Liqui-Gel) symptoms #30 caps prednisone 20 mg tablet 40 mg PO DAILY 4 days #8 tabs 10/04/21 levofloxacin 500 mg tablet 500 mg PO Q24H #3 tabs 10/07/21 ggojjwfndi-pymyaodipfnob-cqpvjgbf 1 tab PO ONCE PRN pain 30 days #30 11/28/21 50 mg-325 mg-40 mg tablet tabs clonazepam 0.5 mg tablet 0.5 mg PO BID PRN anxiety 30 days 11/28/21 #60 tabs hydrochlorothiazide 25 mg tablet 25 mg PO DAILY 30 days #30 tabs 11/28/21 tramadol 50 mg tablet 50 mg PO Q8H PRN pain 30 days #90 11/28/21 tabs ciprofloxacin 0.3 %-dexamethasone 4 drp otic (ears) BID 7 days #7.5 12/02/21 0.1 % ear drops,suspension mL (Ciprodex) ciprofloxacin HCl 500 mg tablet 500 mg PO Q12H #20 tabs 12/02/21 oxycodone 5 mg tablet 5 mg PO Q8H PRN severe pain (scale 12/02/21 score 7-10) #7 tabs Allergies Allergy/AdvReac Type Severity Reaction Status Date / Time amitriptyline Allergy Intermediate headache Verified 10/07/21 15:42 ibuprofen [From Motrin] Allergy Intermediate ITCHY RASH Verified 10/07/21 15:42 gabapentin AdvReac Intermediate vomiting Verified 10/07/21 15:42 Review of Systems Review of Systems: Constitutional: No Fever, No Chills ENT/Mouth: No sore throat, No Rhinorrhea, No Swallowing Difficulty, +otalgia, No earing loss, No ear discharge Eyes: No Eye Pain, No Swelling, No Redness Cardiovascular: No Chest Pain, No SOB Respiratory: No Cough, No Sputum, No Wheezing, No dyspnea Gastrointestinal: No Nausea, No Vomiting,, No abdominal Pain Musculoskeletal: No joint pain, No Myalgias Skin: No Skin Lesions, No rash Neuro: No Weakness, No Numbness, No Dizziness, +Headache Psych: No Anxiety/Panic, No Depression Heme/Lymph: No Lymphadenopathy [facility] Past Medical History Medical History (Updated 12/02/21 @ 14:01 by MARLENA Philip) Anxiety Depression GERD (gastroesophageal reflux disease) HTN (hypertension) Migraine Surgical History H/O LEEP H/O tubal ligation History of breast lump/mass excision History of lithotripsy Family History Family History Father Myocardial infarction Mother Lung cancer Brother Liver cancer Maternal Grandfather Stomach cancer Maternal Grandmother No problems noted. Social History Social History Housing: Apartment Alcohol intake: never Patient Tobacco Use Status: Current someday Tobacco user Tobacco use type: Cigarette Cigarettes Per Day: 3 e-Cigarette/Vaping Use: Never Used Second Hand Smoke Exposure: No Advance Directives: No Advance Directives Information Provided: No service: No Current occupational status: disabled Gender identity: Female Cognitive needs: No Hearing needs: No Vision needs: No Physical Exam Vital Signs: Vital Signs: Last Vital Signs Temp 98.8 F 12/02/21 13:34 Pulse 94 12/02/21 13:34 Resp 18 12/02/21 13:34 BP 147/94 H 12/02/21 13:34 Pulse Ox 97 12/02/21 13:34 O2 Del Method 12/02/21 13:34 BMI result Body Mass Index 29.9 Appearance: Alert. Oriented X3. No acute distress. HEENT: normal external inspection. Right EAC with erythema, tenderness and white discharge distally. Right TM is bulging and erythematous, no effusion. Normal hearing bilaterally. Normal left EAC and TM. No mastoid tenderness bilaterally. CVS: Normal heart rate and rhythm. Pulses normal. Respiratory: No respiratory distress. Skin: Skin warm and dry. Normal skin color. Normal skin turgor. No rashes. Extremities: normal inspection x4. Neuro: Oriented X 3. No motor deficit. No sensory deficit. CN II-XII intact. Course Course Course Narrative: 50-year-old female with a history of recurrent right-sided ear infections presents to the ER with right-sided ear pain for the last 3 days. Exam is consistent with both otitis externa and otitis media. She has yet to follow-up with hearing care practitioner as recommended. This was reinforced to her and she agrees to call to try to get an appointment. There is no evidence of mastoiditis at this time. Given her recurrent infections and response to quinolone last time, will prescribe ciprofloxacin orally and topically. Oxycodone ordered for severe pain given patient's report of 10/10 pain and inability to sleep. She is stable for discharge home with ENT and PCP follow-up. Critical Care Time Critical Care Time Critical Care Time: No Discharge Plan Discharge Clinical Impression: Otitis externa, Otitis media Patient Disposition: Home, Self-Care Instructions: Otitis Externa (ED), Ear Infection (ED) Additional Instructions: Do not get water in your ear Follow up with ENT PRINCE Take all of the medications as prescribed Follow up with your PCP If you develop new or worsening symptoms call 911 or come back to the ER for further evaluation. Prescriptions: New ciprofloxacin HCl 500 mg tablet 500 mg PO Q12H Qty: 20 0RF ciprofloxacin-dexamethasone [Ciprodex] 0.3-0.1 % drops,suspension 4 drp otic (ears) BID 7 Days Qty: 7.5 0RF oxycodone 5 mg tablet 5 mg PO Q8H PRN (Reason: severe pain (scale score 7-10)) Qty: 7 0RF Rx Instructions: Partial Fill upon patient request. No Action albuterol sulfate 90 mcg/actuation HFA aerosol inhaler 2 puff PO Q4H PRN (Reason: bronchospasm) 30 Days Qty: 8.5 6RF fluticasone propionate [Flonase Allergy Relief] 50 mcg/actuation spray,suspension 2 spray intranasal Q12H 30 Days Qty: 16 0RF Rx Instructions: administer into each nostril Combivent Respimat 20-100 mcg/actuation mist 1 puff PO QID 30 Days Qty: 4 3RF loratadine [Claritin Liqui-Gel] 10 mg capsule 10 mg PO DAILY PRN (Reason: allergy symptoms) Qty: 30 0RF prednisone 20 mg tablet 40 mg PO DAILY 4 Days Qty: 8 0RF hydrochlorothiazide 25 mg tablet 25 mg PO DAILY 30 Days Qty: 30 11RF uzykvcllcd-vkwmabeeuclqr-jsde 50-325-40 mg tablet 1 tab PO ONCE PRN (Reason: pain) 30 Days Qty: 30 0RF tramadol 50 mg tablet 50 mg PO Q8H PRN (Reason: pain) 30 Days Qty: 90 0RF clonazepam 0.5 mg tablet 0.5 mg PO BID PRN (Reason: anxiety) 30 Days Qty: 60 0RF meclizine 25 mg tablet 25 mg PO BID PRN (Reason: dizziness) Qty: 10 0RF carisoprodol [Soma] 350 mg tablet 350 mg PO TID PRN (Reason: muscle pain) Qty: 30 0RF hydrocodone-acetaminophen 5-325 mg tablet 1 tab PO Q6H PRN (Reason: pain) Qty: 8 0RF ondansetron 4 mg tablet,disintegrating 4 mg PO Q8H PRN (Reason: nausea and vomiting) Qty: 20 0RF ofloxacin 0.3 % drops 10 drp otic (ears) DAILY 7 Days Qty: 5 0RF tizanidine 4 mg capsule 4 mg PO BEDTIME 20 Days Qty: 20 0RF cholecalciferol (vitamin D3) 50 mcg (2,000 unit) tablet 50 mcg PO DAILY 90 Days Qty: 90 1RF levofloxacin 500 mg tablet 500 mg PO Q24H Qty: 3 0RF clotrimazole 1 % cream 1 appful vaginal BEDTIME Qty: 45 3RF Rx Instructions: usa para picor vaginal Referrals: Valentin Jackson [Physician] - (recurrent ear infections) Print Language: Maori
== END 2021-12-02 14:23 | disposition home or self-care (01) ==
PROVIDERS: Emergency Provider Student in an Organized Health Care Education/Training Program; PCP Internal Medicine
DX: H66.91 Otitis media, unspecified, right ear (principal); H60.91 Unspecified otitis externa, right ear; I10 Essential (primary) hypertension
CPT/HCPCS: 99283

== ENCOUNTER 2022-01-17 01:11 | Emergency (ER) | payer OTHER, SELFPAY ==
[2022-01-17 01:37] VITALS: BP 143/93; PULSE 99; RESP 16; TEMP 37.1; O2SAT 96; BMI 29.7
--- NOTE | 2022-01-17 01:42 | ECG_ITS ---
Test Reason : CHEST PAIN/SOB Blood Pressure : / mmHG Vent. Rate : 099 BPM Atrial Rate : 099 BPM P-R Int : 132 ms QRS Dur : 072 ms QT Int : 356 ms P-R-T Axes : 041 022 -02 degrees QTc Int : 456 ms Normal sinus rhythm Nonspecific ST and T wave abnormality Abnormal ECG When compared with ECG of 21-SEP-2021 22:58, No significant change was found Referred By: Generic ED Physician Electronically Signed By:MARILU MANN MD
[2022-01-17 01:55] LABS: Hematocrit 36.4 % (37.0-47.0); Hemoglobin 12.1 g/dl (12.0-16.0); Mean Corpuscular HGB Conc 33.2 g/dl (31.0-35.0); Mean Corpuscular Hemoglobin 27.2 pg (27.0-33.0); Mean Corpuscular Volume 81.8 fL (80.0-98.0); Mean Platelet Volume 10.2 fL (9.4-12.3); Platelet Count 319 X10*3/uL (160-400); Red Blood Count 4.45 X10*6/uL (4.20-5.50); White Blood Count 7.4 X10*3/uL (4.8-10.8)
[2022-01-17 02:50] LABS: Alanine Aminotransferase 11 U/L (0-31); Albumin Level 4.2 g/dL (3.5-5.0); Alkaline Phosphatase 111 U/L (39-117); Anion Gap 16 (12-20); Aspartate Amino Transferase 19 U/L (5-31); Bilirubin Direct < 0.2 mg/dL (0.0-0.5); Bilirubin Total 0.3 mg/dL (0.0-1.0); Blood Urea Nitrogen 14 mg/dL (9-16); Calcium 9.7 mg/dL (8.4-10.2); Carbon Dioxide 28 mmol/L (22-29); Chloride 100 mmol/L (96-108); Creatinine Clr Calc Pharmacy 65.5; Estimated Glomerular Filt Rate > 60; Glucose Random 115 mg/dL (60-115); Lipase 33 U/L (8-78); Potassium 3.4 mmol/L (3.3-5.1); Sodium 141 mmol/L (135-145)
== END 2022-01-17 03:40 | disposition left against medical advice (07) ==
PROVIDERS: Emergency Provider Emergency Medicine; PCP Internal Medicine
DX: R07.9 Chest pain, unspecified (principal); J45.909 Unspecified asthma, uncomplicated; F17.210 Nicotine dependence, cigarettes, uncomplicated
CPT/HCPCS: 36415; 80053; 82248; 83690; 85027; 93005; 99283

== ENCOUNTER 2022-01-18 01:41 | Emergency (ER) | payer OTHER, SELFPAY ==
--- NOTE | ~2022-01-18 | XR_ITS ---
EXAMINATION: XR CHEST CLINICAL INFORMATION: Cough COMPARISON: 09/21/2021 TECHNIQUE: Frontal view of the chest was obtained. FINDINGS: Calcified granuloma, right upper lobe. Normal symmetric lung volumes. No parenchymal consolidation. No pleural effusion. No pneumothorax. Cardiomediastinal silhouette and pulmonary vascularity are within normal limits. No acute osseous abnormalities. XR/XR chest 1V IMPRESSION: No acute findings.
[2022-01-18 01:51] VITALS: BP 137/98; PULSE 96; RESP 18; TEMP 37; O2SAT 98; BMI 29.7
[2022-01-18 02:26] LABS: COVID-19 Test Negative (Negative); IDNOW Serial# 16C4AD1C; Influenza A Negative (Negative); Influenza B2 Negative (Negative)
--- NOTE | 2022-01-18 02:42 | ED.GENADULT ---
HPI - General Adult General Chief complaint: General Medical Stated complaint: Flu like symptoms Time Seen by Provider: 01/18/22 02:41 Source: patient and civil rights representative Mode of arrival: ambulatory Limitations: no limitations History of Present Illness HPI narrative: 51-year-old female came in for evaluation of right ear pain, right facial pain, feeling dizzy. Symptoms started 3 days ago after swam in pool without urine plug, patient is feeling right ear pain radiating to the back of her head, feeling very dizzy feels like her head is submerged under water. No fever, no chills, no stiff neck, no photophobia. Related Data Previous Rx's Medication Instructions Recorded tizanidine 4 mg capsule 4 mg PO BEDTIME 20 days #20 caps 06/08/20 albuterol sulfate 90 mcg/actuation 2 puff PO Q4H PRN bronchospasm 30 05/24/21 aerosol inhaler days #8.5 grams cholecalciferol (vitamin D3) 50 50 mcg PO DAILY 90 days #90 tabs 09/05/21 mcg (2,000 unit) tablet ondansetron 4 mg disintegrating 4 mg PO Q8H PRN nausea and 09/22/21 tablet vomiting #20 tabs fluticasone propionate 50 2 spray intranasal Q12H 30 days 10/03/21 mcg/actuation nasal #16 grams spray,suspension (Flonase Allergy Relief) ipratropium 20 mcg-albuterol 100 1 puff PO QID 30 days #4 mL 10/03/21 mcg/actuation mist for inhalation (Combivent Respimat) aiqshefatp-dzbkajhfqyspg-bwgsjkee 1 tab PO ONCE PRN pain 30 days #30 11/28/21 50 mg-325 mg-40 mg tablet tabs clonazepam 0.5 mg tablet 0.5 mg PO BID PRN anxiety 30 days 11/28/21 #60 tabs hydrochlorothiazide 25 mg tablet 25 mg PO DAILY 30 days #30 tabs 11/28/21 tramadol 50 mg tablet 50 mg PO Q8H PRN pain 30 days #90 12/26/21 tabs duloxetine 20 mg capsule,delayed 20 mg PO BID 30 days #60 caps 01/11/22 release loratadine 10 mg capsule (Claritin 10 mg PO DAILY PRN allergy 01/11/22 Liqui-Gel) symptoms #30 caps amoxicillin 875 mg-potassium 1 tab PO Q12H #20 tabs 01/18/22 clavulanate 125 mg tablet ciprofloxacin 0.2 %-hydrocortisone 3 drp otic (ear) right BID 7 days 01/18/22 1 % ear drops,suspension (Cipro HC) #10 mL Allergies Allergy/AdvReac Type Severity Reaction Status Date / Time amitriptyline Allergy Intermediate headache Verified 01/11/22 16:59 ibuprofen [From Motrin] Allergy Intermediate ITCHY RASH Verified 01/11/22 16:59 gabapentin AdvReac Intermediate vomiting Verified 01/11/22 16:59 Review of Systems Review of Systems: All other systems are reviewed and are negative Constitutional: Reports as per HPI and Reports no additional constitutional complaints Eyes: Reports as per HPI and Reports no additional eye complaints Reports system reviewed and no additional complaints, except as documented Cardiovascular: Reports as per HPI and Reports no additional cardiovascular complaints Respiratory: Reports as per HPI and Reports no additional respiratory complaints Gastrointestinal: Reports as per HPI and Reports no additional gastrointestinal complaints Genitourinary: Reports no additional female genitourinary complaints Musculoskeletal: Reports no additional musculoskeletal complaints Skin/Breast: Reports system reviewed and no additional complaints, except as docu Psychiatric: Reports no additional psychiatric complaints Endocrine: Reports no additional endocrine complaints Hematologic/Lymphatic: Reports no additional hematologic/lymphatic complaints Allergic/Immunologic: Reports no additional allergic/immunologic complaints Reports system reviewed and no additional complaints, except as documented and Reports Abnormal speech present [facility] Past Medical History Medical History Acute maxillary sinusitis Anxiety Blurry vision Cervical cancer screening Depression Dyslipidemia Dyspnea Epigastric pain Essential hypertension Fibromyalgia GERD (gastroesophageal reflux disease) Goiter Hand pain Has daytime drowsiness Hospital discharge follow-up HTN (hypertension) Leg pain, bilateral Microscopic hematuria Migraine Moderate recurrent major depression Otitis externa Physical exam Pulmonary nodules Right lower quadrant pain Skin lesion Tobacco dependence Surgical History H/O LEEP H/O tubal ligation History of breast lump/mass excision History of lithotripsy Family History Family History Father Myocardial infarction Mother Lung cancer Brother Liver cancer Maternal Grandfather Stomach cancer Maternal Grandmother No problems noted. Social History Social History Housing: Apartment Alcohol intake: never Patient Tobacco Use Status: Current someday Tobacco user Tobacco use type: Cigarette Cigarettes Per Day: 3 e-Cigarette/Vaping Use: Never Used Second Hand Smoke Exposure: No Advance Directives: No service: No Current occupational status: disabled Gender identity: Female Cognitive needs: No Hearing needs: No Vision needs: No Physical Exam ED Vital Signs: Vital Signs - 24 hr 01/18/22 01:51 Temperature 98.6 F Pulse Rate 96 Respiratory Rate 18 Blood Pressure 137/98 H Pulse Oximetry 98 Oxygen Delivery Method Room Air BMI result Body Mass Index 29.7 vital signs have been reviewed as appeared to be correct. Blood pressure normal. Heart rate normal. Respiration rate normal. Temperature normal. Oxygen saturation normal. Appearance: Alert. Oriented X3. No acute distress. Head: Normal external exam. Normocephalic. Atraumatic. No Goodrich signs noted. No raccoon eyes noted Eyes: PERRLA. EOMI. Conjunctiva and sclera normal. Eyelids normal. No photophobia ENT: Right TM erythema with loss of light reflex, redness and tenderness in a auditory canal. right maxillary sinus tenderness with percussion. no mastoid process tenderness or redness. Neck: Normal inspection. Neck supple no neck stiffness. FROM. No adenopathy. Thyroid Normal. No meningeal signs. No neck mass noted. CVS: Normal heart rate and rhythm. Heart sound normal. No murmurs noted. Pulses normal throughout. Respiratory: No respiratory distress. Painless inspiration. Breath sounds normal. No wheezes/rales/rhonchi noted. Chest nontender. No accessory muscle usage noted or decreased air movement noted. Abdomen: Soft and nontender. Bowel sounds normal in all 4 quadrants. No distention noted. No organomegaly noted. No visible injury noted. Back: No CVA tenderness. Full range of motion noted. Skin: Skin warm and dry. Normal skin color. Normal skin turgor. No rashes/lesions/lacerations noted. Extremities: No lower extremity edema. Extremities exhibit normal range of motion. Extremities nontender. Neuro: Oriented X 3. Cranial nerve exam: II-XII are grossly intact No motor deficit. No sensory deficit. Reflexes normal. Course Course Course Narrative: 51-year-old female with max of otitis media and otitis externa with a right maxillary sinusitis after swimming in the pool without ear plug. Start the patient on Augmentin, Cipro otic suspension, 1 time dose of prednisone while in the ED. Medical Decision Making Lab Data Lab results reviewed: Yes I reviewed the patient's lab results. Labs: Lab Results 01/18/22 01/18/22 Range/Units 02:01 02:01 COVID-19 ([facility]) Negative (Negative) COVID-19 Clin Com See Note Influenza Type A (DANTE) Negative (Negative) Influenza Type B (DANTE) Negative (Negative) Influenza A & B Note See Note Discharge Plan Discharge Clinical Impression: Acute right otitis media, Actinic otitis externa of right ear, Right maxillary sinusitis Patient Disposition: Home, Self-Care Instructions: Ear Infection (ED) Prescriptions: New Cipro HC 0.2-1 % drops,suspension 3 drp otic (ear) right BID 7 Days Qty: 10 0RF amoxicillin-pot clavulanate 875-125 mg tablet 1 tab PO Q12H Qty: 20 0RF No Action albuterol sulfate 90 mcg/actuation HFA aerosol inhaler 2 puff PO Q4H PRN (Reason: bronchospasm) 30 Days Qty: 8.5 6RF fluticasone propionate [Flonase Allergy Relief] 50 mcg/actuation spray,suspension 2 spray intranasal Q12H 30 Days Qty: 16 0RF Rx Instructions: administer into each nostril Combivent Respimat 20-100 mcg/actuation mist 1 puff PO QID 30 Days Qty: 4 3RF hydrochlorothiazide 25 mg tablet 25 mg PO DAILY 30 Days Qty: 30 11RF cxmsbdivim-jhwmcwtrodlgh-sers 50-325-40 mg tablet 1 tab PO ONCE PRN (Reason: pain) 30 Days Qty: 30 0RF clonazepam 0.5 mg tablet 0.5 mg PO BID PRN (Reason: anxiety) 30 Days Qty: 60 0RF tramadol 50 mg tablet 50 mg PO Q8H PRN (Reason: pain) 30 Days Qty: 90 0RF ondansetron 4 mg tablet,disintegrating 4 mg PO Q8H PRN (Reason: nausea and vomiting) Qty: 20 0RF tizanidine 4 mg capsule 4 mg PO BEDTIME 20 Days Qty: 20 0RF cholecalciferol (vitamin D3) 50 mcg (2,000 unit) tablet 50 mcg PO DAILY 90 Days Qty: 90 1RF duloxetine 20 mg capsule,delayed release(DR/EC) 20 mg PO BID 30 Days Qty: 60 0RF Claritin Liqui-Gel 10 mg capsule 10 mg PO DAILY PRN (Reason: allergy symptoms) Qty: 30 0RF Referrals: Neyda Foster MD [Primary Care Provider] -
[2022-01-18] MEDS: oxyCODONE HCl Immed Release 5 MG TABLET PO (03:27)
[2022-01-18] MEDS: Amoxicillin/Potassium Clav 875 MG TABLET PO (03:27)
[2022-01-18] MEDS: predniSONE 20 MG TABLET 40 MG PO (03:27)
== END 2022-01-18 03:37 | disposition home or self-care (01) ==
PROVIDERS: Emergency Provider Emergency Medicine; PCP Internal Medicine
DX: H66.91 Otitis media, unspecified, right ear (principal); H60.511 Acute actinic otitis externa, right ear; J01.00 Acute maxillary sinusitis, unspecified; R42 Dizziness and giddiness; H92.01 Otalgia, right ear; F17.210 Nicotine dependence, cigarettes, uncomplicated; Z20.822 Contact with and (suspected) exposure to COVID-19; Z79.899 Other long term (current) drug therapy; Z71.6 Tobacco abuse counseling
CPT/HCPCS: 71045; 87502; 87635; 99283

== ENCOUNTER 2022-02-14 16:18 | Emergency (ER) | payer OTHER, SELFPAY ==
[2022-02-14 16:26] VITALS: BP 128/86; PULSE 93; RESP 18; TEMP 36.9; O2SAT 96; BMI 29.7
--- NOTE | 2022-02-14 17:44 | ED_ITS ---
HPI - Ear Problem General Chief complaint: Ear Problems Stated complaint: ear pain/headaches/dizziness Time Seen by Provider: 02/14/22 17:36 Source: patient Mode of arrival: ambulatory Limitations: no limitations History of Present Illness HPI Narrative: 51-year-old female with a history of recurrent otitis media, sinusitis, polyarthralgia, depression, anxiety, HLD, HTN who presents to the ER for evaluation of recurrent right-sided ear pain, right maxillary sinus pain and pressure for the last 4 days. She reports recently being on antibiotics earlier this month for the same. She is also follow-up with learning and development consultant but has not made the appointment yet. She denies any decrease in hearing or drainage from the ear. The right ear is usually the 1 the gets recurrent lead infected. She reports increased nasal congestion and right-sided headache. No fever or chills. She has nausea and vomited once last night. She has been taking Tylenol around the clock for pain with no improvement. She reports the pain is keeping her up at night. She denies any swimming or foreign bodies in the ear. MD Complaint: ear pain Location: right ear Duration: constant Severity: severe Relieving factors: nothing Exacerbating factors: chewing, position of head and palpation Discharge from ear: no Associated symptoms ear: headache Treatment prior to arrival: none Related Data Previous Rx's Medication Instructions Recorded tizanidine 4 mg capsule 4 mg PO BEDTIME 20 days #20 caps 06/08/20 albuterol sulfate 90 mcg/actuation 2 puff PO Q4H PRN bronchospasm 30 05/24/21 aerosol inhaler days #8.5 grams cholecalciferol (vitamin D3) 50 50 mcg PO DAILY 90 days #90 tabs 09/05/21 mcg (2,000 unit) tablet fluticasone propionate 50 2 spray intranasal Q12H 30 days 10/03/21 mcg/actuation nasal #16 grams spray,suspension (Flonase Allergy Relief) rezgrvfbtf-wkdxursevzhpy-engipipe 1 tab PO ONCE PRN pain 30 days #30 11/28/21 50 mg-325 mg-40 mg tablet tabs hydrochlorothiazide 25 mg tablet 25 mg PO DAILY 30 days #30 tabs 11/28/21 duloxetine 20 mg capsule,delayed 20 mg PO BID 30 days #60 caps 01/11/22 release loratadine 10 mg capsule (Claritin 10 mg PO DAILY PRN allergy 01/11/22 Liqui-Gel) symptoms #30 caps amoxicillin 875 mg-potassium 1 tab PO Q12H #20 tabs 01/18/22 clavulanate 125 mg tablet ciprofloxacin 0.2 %-hydrocortisone 3 drp otic (ear) right BID 7 days 01/18/22 1 % ear drops,suspension (Cipro HC) #10 mL ondansetron 4 mg disintegrating 4 mg PO Q8H PRN nausea and 01/18/22 tablet vomiting #20 tabs ipratropium 20 mcg-albuterol 100 1 puff PO QID 30 days #4 mL 01/19/22 mcg/actuation mist for inhalation (Combivent Respimat) clonazepam 0.5 mg tablet 0.5 mg PO BID PRN anxiety 30 days 01/25/22 #60 tabs tramadol 50 mg tablet 50 mg PO Q8H PRN pain 30 days #90 01/25/22 tabs amoxicillin 875 mg-potassium 1 tab PO BID #20 tabs 02/14/22 clavulanate 125 mg tablet fluticasone propionate 50 1 spray intranasal BID #16 grams 02/14/22 mcg/actuation nasal spray,suspension (Flonase Allergy Relief) ondansetron 4 mg disintegrating 4 mg PO Q8H PRN nausea and 02/14/22 tablet vomiting #7 tabs prednisone 20 mg tablet 40 mg PO DAILY #10 tabs 02/14/22 tramadol 50 mg tablet 50 mg PO BID PRN severe pain 02/14/22 (scale score 7-10) #6 tabs Allergies Allergy/AdvReac Type Severity Reaction Status Date / Time amitriptyline Allergy Intermediate headache Verified 01/11/22 16:59 ibuprofen [From Motrin] Allergy Intermediate ITCHY RASH Verified 01/11/22 16:59 gabapentin AdvReac Intermediate vomiting Verified 01/11/22 16:59 Review of Systems Review of Systems: Constitutional: No Fever, No Chills ENT/Mouth: No sore throat, No Rhinorrhea, No Swallowing Difficulty, +Otalgia, +Nasal congestion Eyes: No Eye Pain, No Swelling, No Redness Cardiovascular: No Chest Pain, No SOB Respiratory: No Cough, No Sputum, + Wheezing, No dyspnea Gastrointestinal: + Nausea, +Vomiting, No Diarrhea, No abdominal Pain Musculoskeletal: No joint pain, No Myalgias Skin: No Skin Lesions, No rash Neuro: No Lymphadenopathy PMFSH Past Medical History Medical History Acute maxillary sinusitis Anxiety Blurry vision Cervical cancer screening Depression Dyslipidemia Dyspnea Epigastric pain Essential hypertension Fibromyalgia GERD (gastroesophageal reflux disease) Goiter Hand pain Has daytime drowsiness Hospital discharge follow-up HTN (hypertension) Leg pain, bilateral Microscopic hematuria Migraine Moderate recurrent major depression Otitis externa Physical exam Pulmonary nodules Right lower quadrant pain Skin lesion Tobacco dependence Surgical History H/O LEEP H/O tubal ligation History of breast lump/mass excision History of lithotripsy Family History Family History Father Myocardial infarction Mother Lung cancer Brother Liver cancer Maternal Grandfather Stomach cancer Maternal Grandmother No problems noted. Social History Social History Housing: Apartment Alcohol intake: never Patient Tobacco Use Status: Current someday Tobacco user Tobacco use type: Cigarette Cigarettes Per Day: 3 e-Cigarette/Vaping Use: Never Used Second Hand Smoke Exposure: No Advance Directives: No Advance Directives Information Provided: No service: No Current occupational status: disabled Gender identity: Female Cognitive needs: No Hearing needs: No Vision needs: No Physical Exam Vital Signs: Vital Signs: Last Vital Signs Temp 98.4 F 02/14/22 16:26 Pulse 93 02/14/22 16:26 Resp 18 02/14/22 16:26 BP 128/86 02/14/22 16:26 Pulse Ox 96 02/14/22 16:26 O2 Del Method 02/14/22 16:26 BMI result Body Mass Index 29.7 Appearance: Alert. Oriented X3. No acute distress. HEENT: normal external inspection. normal appearing left EAC and TM. Right EAC with mild erythema, no swelling. Right TM with erythema and effusion, dull. tender. Nasal turbinates are erythematous and swollen. +maxiallr sinus tenderness on the right side only. CVS: Normal heart rate and rhythm. Pulses normal. Respiratory: No respiratory distress. Skin: Skin warm and dry. Normal skin color. Normal skin turgor. No rashes. Extremities: normal inspection x4, normal ROM Neuro: Oriented X 3. No motor deficit. No sensory deficit. Course Course Course Narrative: 51-year-old female with a history of recurrent ear infections and sinusitis presents to the ER for evaluation of 4 days of right-sided ear pain and right maxillary sinus pain and pressure. Examinations is consistent with recurrent otitis media as well as acute sinusitis. She needs to follow-up with ear nose and throat provider, will give her the number today to try to make an appointment with Dr. Jackson. We discussed possible allergic component and she is going to try [id number] Claritin or Zyrtec. Will add Flonase as well. She reported good response with prednisone in the past so will give her short course of this as well. She will follow-up with her primary care doctor and ENT as well. Stable for DC home. Discharge Plan Discharge Clinical Impression: Recurrent otitis media, Sinusitis Patient Disposition: Home, Self-Care Instructions: Sinusitis (ED), Ear Infection (ED) Additional Instructions: Take all the medications as prescribed. Make she complete the entire antibiotic course. Recommend following up with your primary care doctor soon as possible. Recommend following up with learning and development consultant, name and number below. Also recommend starting trial of [id number]-[id number] Zyrtec or Claritin for possible allergic component. If you develop new or worsening symptoms call 911 or come back to the ER for further evaluation. Prescriptions: New amoxicillin-pot clavulanate 875-125 mg tablet 1 tab PO BID Qty: 20 0RF fluticasone propionate [Flonase Allergy Relief] 50 mcg/actuation spray,suspension 1 spray intranasal BID Qty: 16 0RF Rx Instructions: administer into each nostril prednisone 20 mg tablet 40 mg PO DAILY Qty: 10 0RF tramadol 50 mg tablet 50 mg PO BID PRN (Reason: severe pain (scale score 7-10)) Qty: 6 0RF ondansetron 4 mg tablet,disintegrating 4 mg PO Q8H PRN (Reason: nausea and vomiting) Qty: 7 0RF No Action albuterol sulfate 90 mcg/actuation HFA aerosol inhaler 2 puff PO Q4H PRN (Reason: bronchospasm) 30 Days Qty: 8.5 6RF fluticasone propionate [Flonase Allergy Relief] 50 mcg/actuation spray,suspension 2 spray intranasal Q12H 30 Days Qty: 16 0RF Rx Instructions: administer into each nostril hydrochlorothiazide 25 mg tablet 25 mg PO DAILY 30 Days Qty: 30 11RF lsuwquoljy-gabqwvpukftlj-kdmf 50-325-40 mg tablet 1 tab PO ONCE PRN (Reason: pain) 30 Days Qty: 30 0RF ondansetron 4 mg tablet,disintegrating 4 mg PO Q8H PRN (Reason: nausea and vomiting) Qty: 20 0RF Combivent Respimat 20-100 mcg/actuation mist 1 puff PO QID 30 Days Qty: 4 3RF tramadol 50 mg tablet 50 mg PO Q8H PRN (Reason: pain) 30 Days Qty: 90 0RF clonazepam 0.5 mg tablet 0.5 mg PO BID PRN (Reason: anxiety) 30 Days Qty: 60 0RF Cipro HC 0.2-1 % drops,suspension 3 drp otic (ear) right BID 7 Days Qty: 10 0RF amoxicillin-pot clavulanate 875-125 mg tablet 1 tab PO Q12H Qty: 20 0RF tizanidine 4 mg capsule 4 mg PO BEDTIME 20 Days Qty: 20 0RF cholecalciferol (vitamin D3) 50 mcg (2,000 unit) tablet 50 mcg PO DAILY 90 Days Qty: 90 1RF duloxetine 20 mg capsule,delayed release(DR/EC) 20 mg PO BID 30 Days Qty: 60 0RF Claritin Liqui-Gel 10 mg capsule 10 mg PO DAILY PRN (Reason: allergy symptoms) Qty: 30 0RF Referrals: Valentin Jackson [Physician] - (Recurrent otitis media and sinusitis) Print Language: Singaporean
== END 2022-02-14 18:22 | disposition home or self-care (01) ==
PROVIDERS: Emergency Provider Internal Medicine; PCP Internal Medicine
DX: H66.91 Otitis media, unspecified, right ear (principal); J32.0 Chronic maxillary sinusitis; I10 Essential (primary) hypertension; F17.210 Nicotine dependence, cigarettes, uncomplicated
CPT/HCPCS: 99282; 99283

== ENCOUNTER 2022-03-04 23:59 | Emergency (ER) | payer OTHER, SELFPAY ==
--- NOTE | ~2022-03-04 | XR_ITS ---
EXAMINATION: XR CHEST CLINICAL INFORMATION: Chest pain COMPARISON: None TECHNIQUE: Frontal view of the chest was obtained. FINDINGS: No significant abnormality is noted involving the heart, lungs, mediastinum, bony thorax or soft tissues. XR/XR chest 1V IMPRESSION: Unremarkable chest examination.
--- NOTE | 2022-03-05 00:06 | ECG_ITS ---
Test Reason : TACHYCARDIA Blood Pressure : / mmHG Vent. Rate : 088 BPM Atrial Rate : 088 BPM P-R Int : 146 ms QRS Dur : 074 ms QT Int : 368 ms P-R-T Axes : 057 024 018 degrees QTc Int : 445 ms Normal sinus rhythm Nonspecific ST abnormality Abnormal ECG When compared with ECG of 17-JAN-2022 01:38, No significant change was found Referred By: Generic ED Physician Electronically Signed By:YOLY GUERRERO
[2022-03-05 00:10] VITALS: BP 157/94; PULSE 92; RESP 16; TEMP 36.3; O2SAT 96; BMI 29.7
[2022-03-05 00:35] LABS: MANUAL DIFF FLAG NO
[2022-03-05 00:39] LABS: Basophils Percent Auto 0.6 % (0-2); Eosinophils Absolute Auto 0.2 X10*3/uL (0.0-0.4); Eosinophils Percent Auto 2.2 % (0-4); Hemoglobin 11.9 g/dl (12.0-16.0); Imm Gran Abs Auto 0.04 X10*3/uL (0.00-0.03); Imm Gran Pct Auto 0.6 % (0.0-0.4); Lymphocytes Absolute Auto 2.5 X10*3/uL (1.2-4.9); Lymphocytes Percent Auto 37.5 % (20-40); Mean Corpuscular HGB Conc 31.3 g/dl (31.0-35.0); Mean Corpuscular Hemoglobin 26.4 pg (27.0-33.0); Mean Corpuscular Volume 84.3 fL (80.0-98.0); Mean Platelet Volume 10.1 fL (9.4-12.3); Monocytes Absolute Auto 0.4 X10*3/uL (0.1-1.2); Monocytes Percent Auto 6.4 % (2-11); Neutrophils Absolute Auto 3.6 x10*3/uL (2.0-8.3); Neutrophils Percent Auto 52.7 % (45-73); Platelet Count 308 X10*3/uL (160-400); Red Blood Count 4.51 X10*6/uL (4.20-5.50); White Blood Count 6.8 X10*3/uL (4.8-10.8)
[2022-03-05 00:43] LABS: Prothrombin Time 11.4 SEC (10.0-13.1)
[2022-03-05 00:59] LABS: Troponin-I High Sensitivity < 3.5 ng/L (<3.5-17.0)
[2022-03-05 01:01] LABS: Alanine Aminotransferase 19 U/L (0-31); Albumin Level 4.2 g/dL (3.5-5.0); Alkaline Phosphatase 114 U/L (39-117); Anion Gap 16 (12-20); Aspartate Amino Transferase 17 U/L (5-31); Bilirubin Direct < 0.2 mg/dL (0.0-0.5); Bilirubin Total 0.3 mg/dL (0.0-1.0); Blood Urea Nitrogen 12 mg/dL (9-16); Calcium 9.5 mg/dL (8.4-10.2); Carbon Dioxide 30 mmol/L (22-29); Chloride 102 mmol/L (96-108); Creatinine Clr Calc Pharmacy 69.5; Estimated Glomerular Filt Rate > 60; Glucose Random 106 mg/dL (60-115); Magnesium 1.8 mg/dL (1.6-2.6); Potassium 3.6 mmol/L (3.3-5.1); Sodium 144 mmol/L (135-145); Total Protein 7.5 g/dL (6.5-8.0)
[2022-03-05 01:02] LABS: COVID-19 Test Negative (Negative)
--- NOTE | 2022-03-05 01:19 | ED_ITS ---
HPI - Chest Pain General Chief Complaint: Chest Pain Stated Complaint: chest pain Time Seen by Provider: 03/05/22 00:14 Source: patient Mode of arrival: ambulatory Limitations: no limitations History of Present Illness HPI narrative: 51 yo female with hx of asthma, HTN, anxiety reports 2 to 3 days of cough, runny nose, chest tightness and wheezy. Made worse with cough. Does have INH that help but they make her anxious and jittery. complaint: other (tightness) Pertinent past history: asthma Onset (ago): day(s) (2) Timing of current episode: constant Prior episodes: Yes Onset: during rest and during exertion Pain location: left chest and right chest Pain radiation: none Severity: moderate Quality: tightness Relieving factors: other (albuterol) Exacerbating factors: other (coughing, exertion) Associated symptoms: dyspnea and other (runny nose, cough) Treatment prior to arrival: none Related Data Previous Rx's Medication Instructions Recorded tizanidine 4 mg capsule 4 mg PO BEDTIME 20 days #20 caps 06/08/20 albuterol sulfate 90 mcg/actuation 2 puff PO Q4H PRN bronchospasm 30 05/24/21 aerosol inhaler days #8.5 grams cholecalciferol (vitamin D3) 50 50 mcg PO DAILY 90 days #90 tabs 09/05/21 mcg (2,000 unit) tablet fluticasone propionate 50 2 spray intranasal Q12H 30 days 10/03/21 mcg/actuation nasal #16 grams spray,suspension (Flonase Allergy Relief) hydrochlorothiazide 25 mg tablet 25 mg PO DAILY 30 days #30 tabs 11/28/21 amoxicillin 875 mg-potassium 1 tab PO Q12H #20 tabs 01/18/22 clavulanate 125 mg tablet ipratropium 20 mcg-albuterol 100 1 puff PO QID 30 days #4 mL 01/19/22 mcg/actuation mist for inhalation (Combivent Respimat) clonazepam 0.5 mg tablet 0.5 mg PO BID PRN anxiety 30 days 01/25/22 #60 tabs amoxicillin 875 mg-potassium 1 tab PO BID #20 tabs 02/14/22 clavulanate 125 mg tablet fluticasone propionate 50 1 spray intranasal BID #16 grams 02/14/22 mcg/actuation nasal spray,suspension (Flonase Allergy Relief) ondansetron 4 mg disintegrating 4 mg PO Q8H PRN nausea and 02/14/22 tablet vomiting #7 tabs prednisone 20 mg tablet 40 mg PO DAILY #10 tabs 02/14/22 cauyjqderw-beptibmobljjr-hwijkpqs 1 tab PO ONCE PRN pain 30 days #30 02/15/22 50 mg-325 mg-40 mg tablet tabs duloxetine 20 mg capsule,delayed 20 mg PO BID 30 days #60 caps 02/15/22 release loratadine 10 mg tablet 10 mg PO DAILY PRN for allergies 02/15/22 30 days #30 tabs ondansetron 4 mg disintegrating 4 mg PO Q8H PRN nausea and 02/15/22 tablet vomiting #20 tabs clotrimazole 1 % topical ointment 1 appl topical BID #56.7 grams 03/01/22 tramadol 50 mg tablet 50 mg PO BID PRN severe pain 03/01/22 (scale score 7-10) 30 days #60 tabs azithromycin 250 mg tablet 250 mg PO DAILY 4 days #4 tabs 03/05/22 benzonatate 100 mg capsule 100 mg PO TID PRN cough #14 caps 03/05/22 prednisone 20 mg tablet 40 mg PO DAILY 4 days #8 tabs 03/05/22 Allergies Allergy/AdvReac Type Severity Reaction Status Date / Time amitriptyline Allergy Intermediate headache Verified 03/01/22 14:40 ibuprofen [From Motrin] Allergy Intermediate ITCHY RASH Verified 03/01/22 14:40 gabapentin AdvReac Intermediate vomiting Verified 03/01/22 14:40 Review of Systems Review of Systems: Constitutional : No Weight loss, No Fever, No Chills ENT/Mouth : No sore throat, pos Rhinorrhea Eyes: No Eye Pain, No Swelling Cardiovascular : pos Chest Pain, pos SOB, no Dyspnea on Exertion, No Orthopnea, No Edema, No Palpitations, pos wheezing Respiratory : pos Cough, No Sputum Gastrointestinal : no Nausea, No Vomiting, No Diarrhea, No abdominal Pain, No Hematochezia, No Melena Genitourinary : No Dysuria, No Urinary Frequency Musculoskeletal : No joint pain, No Myalgias, No Joint Swelling Skin : No Skin Lesions, No rash Neuro : No Weakness, No Numbness, No Dizziness, No Headache Psych : No Anxiety/Panic, No Depression Heme/Lymph: No Bruising, No Lymphadenopathy Endocrine : No Polyuria, No Polydipsia All other systems reviewed and are negative [facility] Past Medical History Attestation statement: The following information was validated with the patient. Medical History Acute maxillary sinusitis Anxiety Blurry vision Cervical cancer screening Depression Dyslipidemia Dyspnea Epigastric pain Essential hypertension Fibromyalgia GERD (gastroesophageal reflux disease) Goiter Hand pain Has daytime drowsiness Hospital discharge follow-up HTN (hypertension) Leg pain, bilateral Microscopic hematuria Migraine Moderate recurrent major depression Otitis externa Physical exam Pulmonary nodules Right lower quadrant pain Skin lesion Tobacco dependence Surgical History H/O LEEP H/O tubal ligation History of breast lump/mass excision History of lithotripsy Family History Family History Father Myocardial infarction Mother Lung cancer Brother Liver cancer Maternal Grandfather Stomach cancer Maternal Grandmother No problems noted. Social History Social History Housing: Apartment Alcohol intake: never Patient Tobacco Use Status: Current someday Tobacco user Tobacco use type: Cigarette Cigarettes Per Day: 3 e-Cigarette/Vaping Use: Never Used Second Hand Smoke Exposure: No Advance Directives: No service: No Current occupational status: disabled Gender identity: Female Cognitive needs: No Hearing needs: No Vision needs: No Physical Exam Vital Signs: Vital Signs: Last Vital Signs Temp 97.3 F 03/05/22 00:10 Pulse 92 03/05/22 00:10 Resp 16 03/05/22 00:10 BP 157/94 H 03/05/22 00:10 Pulse Ox 96 03/05/22 00:10 O2 Del Method 03/05/22 00:10 BMI result Body Mass Index 29.7 Appearance: Alert. Oriented X3. No acute distress. Eyes: Pupils equal, round and reactive to light. ENT: Pharynx normal. Neck: Normal inspection. Neck supple. CVS: Normal heart rate and rhythm. Pulses normal. Respiratory: No respiratory distress. Breath sounds very faint mild exp wheeze noted upper lobe - took her INH proair x 2 puffs in room Abdomen: Soft and nontender. Skin: Skin warm and dry. Normal skin color. Normal skin turgor. Extremities: No lower extremity edema. No calf ttp Neuro: Oriented X 3. No motor deficit. No sensory deficit. MDM - Chest Pain MDM Narrative Medical decision making narrative: 51 yo female with hx of asthma, HTN, anxiety here with c/o dry cough, allergies, runny nose, wheezing - chest tightness x 2 days - EKG and trop negative, no hypoxia no tachycardia no signs of DVT to suggest PE. This is atypical for ACS nonischemic EKG and flat trop. Suspect bronchitis will encourage her IN (she states they make her jittery - prednisone and zpak) stable for DC Lab Data Result diagrams: 03/05/22 00:30 03/05/22 00:30 Labs: Lab Results 03/05/22 03/05/22 03/05/22 Range/Units 00:23 00:30 00:30 WBC 6.8 (4.8-10.8) X10*3/uL RBC 4.51 (4.20-5.50) X10*6/uL Hgb 11.9 L (12.0-16.0) g/dl Hct 38.0 (37.0-47.0) % MCV 84.3 (80.0-98.0) fL MCH 26.4 L (27.0-33.0) pg MCHC 31.3 (31.0-35.0) g/dl RDW 15.0 (11.0-16.0) % Plt Count 308 (160-400) X10*3/uL MPV 10.1 (9.4-12.3) fL Immature Gran % (Auto) 0.6 H (0.0-0.4) % Neut % (Auto) 52.7 (45-73) % Lymph % (Auto) 37.5 (20-40) % [place] % (Auto) 6.4 (2-11) % Eos % (Auto) 2.2 (0-4) % Baso % (Auto) 0.6 (0-2) % Lymph # (Auto) 2.5 (1.2-4.9) X10*3/uL [place] # (Auto) 0.4 (0.1-1.2) X10*3/uL Eos # (Auto) 0.2 (0.0-0.4) X10*3/uL Baso # (Auto) 0.0 (0.0-0.2) X10*3/uL Abs Immat Gran (auto) 0.04 H (0.00-0.03) X10*3/uL Absolute Neuts (auto) 3.6 (2.0-8.3) x10*3/uL Absolute Nucleated RBC 0.000 (0.0-0.012) X10*3/uL Nucleated RBC % (auto) 0.0 (0.0-0.2) /100WBC PT 11.4 (10.0-13.1) SEC INR 1.0 (0.9-1.1) Sodium (135-145) mmol/L Potassium (3.3-5.1) mmol/L Chloride (96-108) mmol/L Carbon Dioxide (22-29) mmol/L Anion Gap (12-20) BUN (9-16) mg/dL Creatinine (0.5-1.4) mg/dL Estim Creat Clear Calc Estimated GFR Random Glucose (60-115) mg/dL Calcium (8.4-10.2) mg/dL Magnesium (1.6-2.6) mg/dL Total Bilirubin (0.0-1.0) mg/dL Direct Bilirubin (0.0-0.5) mg/dL AST (5-31) U/L ALT (0-31) U/L Alkaline Phosphatase (39-117) U/L Troponin I High Sens (<3.5-17.0) ng/L Total Protein (6.5-8.0) g/dL Albumin (3.5-5.0) g/dL COVID-19 ([facility]) Negative (Negative) COVID-19 Clin Com See Note 03/05/22 03/05/22 Range/Units 00:30 00:30 WBC (4.8-10.8) X10*3/uL RBC (4.20-5.50) X10*6/uL Hgb (12.0-16.0) g/dl Hct (37.0-47.0) % MCV (80.0-98.0) fL MCH (27.0-33.0) pg MCHC (31.0-35.0) g/dl RDW (11.0-16.0) % Plt Count (160-400) X10*3/uL MPV (9.4-12.3) fL Immature Gran % (Auto) (0.0-0.4) % Neut % (Auto) (45-73) % Lymph % (Auto) (20-40) % [place] % (Auto) (2-11) % Eos % (Auto) (0-4) % Baso % (Auto) (0-2) % Lymph # (Auto) (1.2-4.9) X10*3/uL [place] # (Auto) (0.1-1.2) X10*3/uL Eos # (Auto) (0.0-0.4) X10*3/uL Baso # (Auto) (0.0-0.2) X10*3/uL Abs Immat Gran (auto) (0.00-0.03) X10*3/uL Absolute Neuts (auto) (2.0-8.3) x10*3/uL Absolute Nucleated RBC (0.0-0.012) X10*3/uL Nucleated RBC % (auto) (0.0-0.2) /100WBC PT (10.0-13.1) SEC INR (0.9-1.1) Sodium 144 (135-145) mmol/L Potassium 3.6 (3.3-5.1) mmol/L Chloride 102 (96-108) mmol/L Carbon Dioxide 30 H (22-29) mmol/L Anion Gap 16 (12-20) BUN 12 (9-16) mg/dL Creatinine 0.81 (0.5-1.4) mg/dL Estim Creat Clear Calc 69.5 Estimated GFR > 60 Random Glucose 106 (60-115) mg/dL Calcium 9.5 (8.4-10.2) mg/dL Magnesium 1.8 (1.6-2.6) mg/dL Total Bilirubin 0.3 (0.0-1.0) mg/dL Direct Bilirubin < 0.2 (0.0-0.5) mg/dL AST 17 (5-31) U/L ALT 19 (0-31) U/L Alkaline Phosphatase 114 (39-117) U/L Troponin I High Sens < 3.5 (<3.5-17.0) ng/L Total Protein 7.5 (6.5-8.0) g/dL Albumin 4.2 (3.5-5.0) g/dL COVID-19 ([facility]) (Negative) COVID-19 Clin Com ECG Data ECG #1: Attestation: I personally reviewed and interpreted this ECG as follows: ECG interpretation date: 03/05/22 ECG interpretation time: 01:22 Interpretation: Rate: 88 Rhythm: NSR [place]: normal Normal P waves. Normal ALLAN. Normal QRS complex. ST T wave : nonspecific no TING qTC: normal prior studies: unchanged The study has been interpreted contemporaneously by me. . Discharge Plan Discharge Clinical Impression: Bronchitis Patient Disposition: Home, Self-Care Instructions: Acute Bronchitis (ED) Additional Instructions: return to ED for any worsening symptoms or concerns take your inhaler 2 puffs every 4 hours PROAIR regresar al servicio de urgencias por cualquier empeoramiento de los s?ntomas o inquietudes radha tu inhalador 2 inhalaciones cada 4 horas PROAIR Prescriptions: New prednisone 20 mg tablet 40 mg PO DAILY 4 Days Qty: 8 0RF benzonatate 100 mg capsule 100 mg PO TID PRN (Reason: cough) Qty: 14 0RF azithromycin 250 mg tablet 250 mg PO DAILY 4 Days Qty: 4 0RF Rx Instructions: start on day 2 of therapy No Action albuterol sulfate 90 mcg/actuation HFA aerosol inhaler 2 puff PO Q4H PRN (Reason: bronchospasm) 30 Days Qty: 8.5 6RF fluticasone propionate [Flonase Allergy Relief] 50 mcg/actuation spray,suspension 2 spray intranasal Q12H 30 Days Qty: 16 0RF Rx Instructions: administer into each nostril hydrochlorothiazide 25 mg tablet 25 mg PO DAILY 30 Days Qty: 30 11RF Combivent Respimat 20-100 mcg/actuation mist 1 puff PO QID 30 Days Qty: 4 3RF clonazepam 0.5 mg tablet 0.5 mg PO BID PRN (Reason: anxiety) 30 Days Qty: 60 0RF skixbiwnfl-cmjwsiwnslytm-qcot 50-325-40 mg tablet 1 tab PO ONCE PRN (Reason: pain) 30 Days Qty: 30 0RF ondansetron 4 mg tablet,disintegrating 4 mg PO Q8H PRN (Reason: nausea and vomiting) Qty: 20 0RF duloxetine 20 mg capsule,delayed release(DR/EC) 20 mg PO BID 30 Days Qty: 60 0RF loratadine 10 mg tablet 10 mg PO DAILY PRN (Reason: for allergies) 30 Days Qty: 30 1RF tramadol 50 mg tablet 50 mg PO BID PRN (Reason: severe pain (scale score 7-10)) 30 Days Qty: 60 0RF amoxicillin-pot clavulanate 875-125 mg tablet 1 tab PO BID Qty: 20 0RF fluticasone propionate [Flonase Allergy Relief] 50 mcg/actuation spray,suspension 1 spray intranasal BID Qty: 16 0RF Rx Instructions: administer into each nostril prednisone 20 mg tablet 40 mg PO DAILY Qty: 10 0RF ondansetron 4 mg tablet,disintegrating 4 mg PO Q8H PRN (Reason: nausea and vomiting) Qty: 7 0RF amoxicillin-pot clavulanate 875-125 mg tablet 1 tab PO Q12H Qty: 20 0RF tizanidine 4 mg capsule 4 mg PO BEDTIME 20 Days Qty: 20 0RF cholecalciferol (vitamin D3) 50 mcg (2,000 unit) tablet 50 mcg PO DAILY 90 Days Qty: 90 1RF clotrimazole 1 % ointment 1 appl topical BID Qty: 56.7 0RF Referrals: Neyda Foster MD [Primary Care Provider] - 3 days (if not better) Print Language: Russian
[2022-03-05] MEDS: Azithromycin 500 MG TABLET PO (01:30)
[2022-03-05] MEDS: predniSONE 20 MG TABLET 60 MG PO (01:30)
== END 2022-03-05 01:37 | disposition home or self-care (01) ==
PROVIDERS: Emergency Provider Emergency Medicine; PCP Internal Medicine
DX: J40 Bronchitis, not specified as acute or chronic (principal); R07.89 Other chest pain; Z20.822 Contact with and (suspected) exposure to COVID-19; F17.210 Nicotine dependence, cigarettes, uncomplicated; Z71.6 Tobacco abuse counseling; Z79.899 Other long term (current) drug therapy
CPT/HCPCS: 71045; 80048; 80076; 83735; 84484; 85025; 85610; 87635; 93005; 99284

== ENCOUNTER 2022-04-14 18:49 | Emergency (ER) | payer OTHER, SELFPAY ==
--- NOTE | ~2022-04-14 | XR_ITS ---
EXAMINATION: XR CHEST CLINICAL INFORMATION: Coughing COMPARISON: 03/05/2022 TECHNIQUE: Frontal view of the chest was obtained. FINDINGS: Granuloma right upper lobe noted. No significant abnormality is noted involving the heart, lungs, mediastinum, bony thorax or soft tissues. XR/XR chest 1V IMPRESSION: No active chest disease.
[2022-04-14 19:09] VITALS: BP 148/87; PULSE 103; RESP 20; TEMP 36.9; O2SAT 100; BMI 30.7
[2022-04-14 19:24] LABS: Appearance Urine Clear; Color Urine Yellow; Glucose Urine UA Negative (Negative); Leukocyte Esterase Urine Negative (Negative); Nitrite Urine Negative (Negative); Specific Gravity - Urine 1.015 (1.005-1.025); UMIC TRIGGER UACC YES; Urine Blood Moderate (2+) (Negative); Urine Ketones Negative (Negative); Urine Protein Negative (Neg-Trace)
[2022-04-14 19:29] LABS: Bacteria Urine 1+ (None Seen); Hyaline Casts Urine 0-2 /LPF (0-2); WBC Urine 0-5 /HPF (0-5)
[2022-04-14 19:39] LABS: COVID-19 Test Negative (Negative); IDNOW Serial# 16C4AD1C; Strep A Nucleic Acid Negative (Negative)
--- NOTE | 2022-04-14 20:56 | ED.URI ---
HPI - URI/Sore Throat General Chief Complaint: Upper Respiratory Symptoms Stated Complaint: headaches/diff. breathing/neck swollen Time Seen by Provider: 04/14/22 20:53 Source: patient Mode of arrival: ambulatory Limitations: language barrier History of Present Illness HPI Narrative: 51-year-old female presents with multiple complaints, headache, sore throat, dysuria, wheezing, fatigue, and intermittent fevers. Patient states that she has felt like this for the past several days. MD elicited complaint: fever, cough, sore throat and nasal congestion Onset (ago): day(s) Consistency: constant and progressively worsening Severity: moderate Description of mucous: clear and watery Able to tolerate fluids by mouth: Yes Exacerbating factors: exertion and deep breaths Relieving factors: nothing Context: sick contacts Associated symptoms: fever, chills, myalgias, nasal congestion, sore throat, cough and shortness of breath Treatments prior to arrival: none Related Data Previous Rx's Medication Instructions Recorded albuterol sulfate 90 mcg/actuation 2 puff PO Q4H PRN bronchospasm 30 05/24/21 aerosol inhaler days #8.5 grams cholecalciferol (vitamin D3) 50 50 mcg PO DAILY 90 days #90 tabs 09/05/21 mcg (2,000 unit) tablet fluticasone propionate 50 2 spray intranasal Q12H 30 days 10/03/21 mcg/actuation nasal #16 grams spray,suspension (Flonase Allergy Relief) hydrochlorothiazide 25 mg tablet 25 mg PO DAILY 30 days #30 tabs 11/28/21 ipratropium 20 mcg-albuterol 100 1 puff PO QID 30 days #4 mL 01/19/22 mcg/actuation mist for inhalation (Combivent Respimat) ondansetron 4 mg disintegrating 4 mg PO Q8H PRN nausea and 02/14/22 tablet vomiting #7 tabs sjpdezvoxl-sekaupeaoiwge-kejmwtff 1 tab PO ONCE PRN pain 30 days #30 02/15/22 50 mg-325 mg-40 mg tablet tabs loratadine 10 mg tablet 10 mg PO DAILY PRN for allergies 02/15/22 30 days #30 tabs ondansetron 4 mg disintegrating 4 mg PO Q8H PRN nausea and 02/15/22 tablet vomiting #20 tabs clotrimazole 1 % topical ointment 1 appl topical BID #56.7 grams 03/01/22 benzonatate 100 mg capsule 100 mg PO TID PRN cough #14 caps 03/05/22 clonazepam 0.5 mg tablet 0.5 mg PO BID PRN anxiety 30 days 03/29/22 #60 tabs duloxetine 20 mg capsule,delayed 20 mg PO BID 30 days #60 caps 03/29/22 release tramadol 50 mg tablet 50 mg PO BID PRN severe pain 03/29/22 (scale score 7-10) 30 days #60 tabs fluticasone propionate 50 1 spray intranasal BID #16 grams 04/11/22 mcg/actuation nasal spray,suspension (Flonase Allergy Relief) prednisone 20 mg tablet 20 mg PO DAILY #5 tabs 04/11/22 tizanidine 4 mg capsule 4 mg PO BEDTIME PRN muscle 04/11/22 spasticity 20 days #20 caps azithromycin 250 mg tablet 250 mg PO DAILY 4 days #4 tabs 04/14/22 cefuroxime axetil 500 mg tablet 500 mg PO Q12H 7 days #14 tabs 04/14/22 Allergies Allergy/AdvReac Type Severity Reaction Status Date / Time amitriptyline Allergy Intermediate headache Verified 04/14/22 19:11 ibuprofen [From Motrin] Allergy Intermediate ITCHY RASH Verified 04/14/22 19:11 gabapentin AdvReac Intermediate vomiting Verified 04/14/22 19:11 Review of Systems Review of Systems: Constitutional: positive Fever, positive Chills, positive fatigue, positive Malaise ENT/Mouth: positive sore throat, positive runny nose Eyes: No Discharge Cardiovascular: No Chest Pain, No SOB Respiratory: No Cough, No Sputum, No Wheezing, No Smoke Exposure, No Dyspnea Gastrointestinal: No Nausea, No Vomiting, No Diarrhea Genitourinary: no irregular bleeding, positive Dysuria, positive Urinary Frequency, positive Hematuria, No Urinary Incontinence, No Urgency, No Flank Pain, Musculoskeletal: positive Myalgia Skin: No rash Neuro: No Headache Yes all other systems are reviewed and are negative [facility] Past Medical History Attestation statement: The following information was validated with the patient. Source: old records reviewed Medical History Acute maxillary sinusitis Anxiety Blurry vision Cervical cancer screening Depression Dyslipidemia Dyspnea Epigastric pain Essential hypertension Fibromyalgia GERD (gastroesophageal reflux disease) Goiter Hand pain Has daytime drowsiness Hospital discharge follow-up HTN (hypertension) Leg pain, bilateral Microscopic hematuria Migraine Moderate recurrent major depression Otitis externa Physical exam Pulmonary nodules Right lower quadrant pain Skin lesion Tobacco dependence Surgical History H/O LEEP H/O tubal ligation History of breast lump/mass excision History of lithotripsy Family History Family History Father Myocardial infarction Mother Lung cancer Brother Liver cancer Maternal Grandfather Stomach cancer Maternal Grandmother No problems noted. Social History Social History Housing: Apartment Alcohol intake: never Patient Tobacco Use Status: Current someday Tobacco user Tobacco use type: Cigarette Cigarettes Per Day: 3 e-Cigarette/Vaping Use: Never Used Second Hand Smoke Exposure: No Advance Directives: No Advance Directives Information Provided: No service: No Current occupational status: disabled Gender identity: Female Cognitive needs: No Hearing needs: No Vision needs: No Physical Exam Vital Signs: Vital Signs: Last Vital Signs Temp 98.8 F 04/14/22 23:00 Pulse 91 04/14/22 23:00 Resp 19 04/14/22 23:00 BP 126/91 H 04/14/22 23:00 Pulse Ox 98 04/14/22 23:20 O2 Del Method 04/14/22 23:20 BMI result Body Mass Index 30.7 Appearance: Alert. Oriented X3. Moderate distress. Eyes: Pupils equal, round and reactive to light. Sclera nonicteric. ENT: Pharynx normal. Moist mucous membranes. Neck: Normal inspection. Neck supple. No vertebral tenderness or step-offs. No nuchal rigidity. No mass or tenderness. CVS: Normal heart rate and rhythm. Apical pulse good pulses to extremities. Respiratory: No respiratory distress. Expiratory wheezing greater on the right than the left. Abdomen: Soft and nontender. No suprapubic tenderness noted. No CVA tenderness. Skin: Skin warm and dry. Normal skin color. Normal skin turgor. Extremities: No lower extremity edema. Gait well-balanced well coordinated. Neuro: No motor deficit. No sensory deficit. Cranial nerves 2-12 intact. Course Course Course Narrative: 51-year-old female presents with multiple complaints. She has not taken any ibxi-gtd-qzwytvs medications or Tylenol or Motrin to help alleviate any of her symptoms. The patient's labs and chest x-ray completed while patient was in the emergency department waiting room. Urinalysis shows moderate heme, however patient's physical exam is unremarkable. No CVA tenderness or suprapubic tenderness to palpation. COVID influenza RSV are negative. Strep is negative. Chest x-ray shows a granuloma. Lung sounds expiratory wheezing to auscultation. Patient is a smoker, has a history of pulmonary nodules, uses albuterol inhaler on a regular basis for asthma. Will complete ambulatory pulse ox, If ambulatory pulse ox is hypoxic, will consider admission 23:04 ambulatory pulse ox 94% room air. Treat with antibiotics for URI and pharyngitis, and suspected pneumonia. For her urinary frequency hesitancy and hematuria with flank pain, physical exam is unremarkable and patient has a past history of urgency and frequency. Patient will follow-up with primary care provider as needed. Verbalized understanding of signs and symptoms indicating need for emergent intervention. site interpreter utilized for all correspondence. Google translate utilized for discharge instructions. MDM - URI/Sore Throat Differential Diagnosis Differential diagnosis: Likely upper respiratory infection, sinusitis, viral infection, bronchitis, influenza and pharyngitis Medical Records Attestation: I reviewed the patient's medical records. Lab Data Attestation: I reviewed the patient's lab results. Labs: Lab Results 04/14/22 04/14/22 04/14/22 Range/Units 19:15 19:15 19:16 Urine Color Yellow Urine Appearance Clear Urine pH 7.0 (5.0-9.0) Ur Specific [place] 1.015 (1.005-1.025) Urine Protein Negative (Neg-Trace) mg/dL Urine Glucose (UA) Negative (Negative) mg/dL Urine Ketones Negative (Negative) mg/dL Urine Blood Moderate (2+) H (Negative) Urine Nitrite Negative (Negative) Ur Leukocyte Esterase Negative (Negative) Urine RBC 11-20 H (0-2) /HPF Urine WBC 0-5 (0-5) /HPF Ur Squamous Epith Cells 6-10 (0-2) /HPF Urine Bacteria 1+ (None Seen) Hyaline Casts 0-2 (0-2) /LPF COVID-19 (EDWAR) Negative (Negative) COVID-19 Clin Com See Note Influenza Type A (DANTE) (Negative) Influenza Type B (DANTE) (Negative) Influenza A & B Note S. pyogenes GrpA DANTE Negative (Negative) 04/14/22 Range/Units 21:01 Urine Color Urine Appearance Urine pH (5.0-9.0) Ur Specific [place] (1.005-1.025) Urine Protein (Neg-Trace) mg/dL Urine Glucose (UA) (Negative) mg/dL Urine Ketones (Negative) mg/dL Urine Blood (Negative) Urine Nitrite (Negative) Ur Leukocyte Esterase (Negative) Urine RBC (0-2) /HPF Urine WBC (0-5) /HPF Ur Squamous Epith Cells (0-2) /HPF Urine Bacteria (None Seen) Hyaline Casts (0-2) /LPF COVID-19 (EDWAR) (Negative) COVID-19 Clin Com Influenza Type A (DANTE) Negative (Negative) Influenza Type B (DANTE) Negative (Negative) Influenza A & B Note See Note S. pyogenes GrpA DANTE (Negative) Imaging Data Chest x-ray: Attestation: I personally reviewed and interpreted this imaging study as follows: Radiologist's impression: EXAMINATION: XR CHEST CLINICAL INFORMATION: Coughing COMPARISON: 03/05/2022 TECHNIQUE: Frontal view of the chest was obtained. FINDINGS: Granuloma right upper lobe noted. No significant abnormality is noted involving the heart, lungs, mediastinum, bony thorax or soft tissues. XR/XR chest 1V IMPRESSION: No active chest disease. ? Discharge Plan Discharge Clinical Impression: Upper respiratory infection, Pharyngitis Patient Disposition: Home, Self-Care Instructions: Pharyngitis (ED), Upper Respiratory Infection (ED) Additional Instructions: Usted fue evaluado por s?ntomas de las v?as respiratorias superiores. Lo estamos tratando con azitromicina 250 mg erica los pr?ximos 4 d?as y cefuroxima 500 mg cada 12 horas erica los pr?ximos 7 d?as. Beber mucho l?quido. Contin?e tomando el josie de ron medicamentos seg?n las indicaciones. Lopez RSV de influenza COVID es negativo. Seguimiento con m?dico de atenci?n primaria. Christofer por elegir xavier departamento de emergencias para lopez evaluaci?n. Por favor, rossy un seguimiento con el m?dico de atenci?n primaria seg?n sea necesario. Regrese al departamento de emergencias por cualquier s?ntoma nuevo, preocupante o que empeore. You were evaluated for upper respiratory symptoms. We are treating you with azithromycin 250 mg for the next 4 days, and cefuroxime 500 mg every 12 hours for the next 7 days. Drink plenty of fluids. Continue to take the rest of her medications as directed. Your COVID influenza RSV are negative. Follow-up with primary care physician. Thank you for choosing this emergency department for evaluation. Please follow-up with primary care physician as needed. Return to the emergency department for any new, concerning, or worsening symptoms. Prescriptions: New azithromycin 250 mg tablet 250 mg PO DAILY 4 Days Qty: 4 0RF Rx Instructions: Start this medication on 04/16/2022. First dose of azithromycin 500 mg given at midnight on 04/15/2022 cefuroxime axetil 500 mg tablet 500 mg PO Q12H 7 Days Qty: 14 0RF Rx Instructions: Start this medication on 04/15/2022 No Action albuterol sulfate 90 mcg/actuation HFA aerosol inhaler 2 puff PO Q4H PRN (Reason: bronchospasm) 30 Days Qty: 8.5 6RF fluticasone propionate [Flonase Allergy Relief] 50 mcg/actuation spray,suspension 2 spray intranasal Q12H 30 Days Qty: 16 0RF Rx Instructions: administer into each nostril hydrochlorothiazide 25 mg tablet 25 mg PO DAILY 30 Days Qty: 30 11RF Combivent Respimat 20-100 mcg/actuation mist 1 puff PO QID 30 Days Qty: 4 3RF ssrerwgmrk-ecpkgqhunvznj-jpqw 50-325-40 mg tablet 1 tab PO ONCE PRN (Reason: pain) 30 Days Qty: 30 0RF ondansetron 4 mg tablet,disintegrating 4 mg PO Q8H PRN (Reason: nausea and vomiting) Qty: 20 0RF loratadine 10 mg tablet 10 mg PO DAILY PRN (Reason: for allergies) 30 Days Qty: 30 1RF clonazepam 0.5 mg tablet 0.5 mg PO BID PRN (Reason: anxiety) 30 Days Qty: 60 0RF tramadol 50 mg tablet 50 mg PO BID PRN (Reason: severe pain (scale score 7-10)) 30 Days Qty: 60 0RF duloxetine 20 mg capsule,delayed release(DR/EC) 20 mg PO BID 30 Days Qty: 60 0RF ondansetron 4 mg tablet,disintegrating 4 mg PO Q8H PRN (Reason: nausea and vomiting) Qty: 7 0RF benzonatate 100 mg capsule 100 mg PO TID PRN (Reason: cough) Qty: 14 0RF cholecalciferol (vitamin D3) 50 mcg (2,000 unit) tablet 50 mcg PO DAILY 90 Days Qty: 90 1RF clotrimazole 1 % ointment 1 appl topical BID Qty: 56.7 0RF fluticasone propionate [Flonase Allergy Relief] 50 mcg/actuation spray,suspension 1 spray intranasal BID Qty: 16 0RF Rx Instructions: administer into each nostril tizanidine 4 mg capsule 4 mg PO BEDTIME PRN (Reason: muscle spasticity) 20 Days Qty: 20 0RF prednisone 20 mg tablet 20 mg PO DAILY Qty: 5 0RF Interventions: ED Discharge Assessment Last Done: 04/14/22 23:37 Discharge Date/Time: 04/14/22 23:38
[2022-04-14 21:24] LABS: IDNOW Serial# 16C4AD1C; Influenza A Negative (Negative); Influenza B2 Negative (Negative)
[2022-04-14 23:00] VITALS: BP 126/91; PULSE 91; RESP 19; TEMP 37.1; O2SAT 98
--- NOTE | 2022-04-14 23:03 | PC.NURSE ---
ambulated with patient around department SpO2 ranging from 97%-100% on RA. HR 84-90bpm provider aware
[2022-04-14 23:20] VITALS: O2SAT 98
[2022-04-14] MEDS: Azithromycin 500 MG TABLET PO (23:26)
== END 2022-04-14 23:38 | disposition home or self-care (01) ==
PROVIDERS: Nurse Practitioner Family; Emergency Provider Emergency Medicine Emergency Medical Services; PCP Internal Medicine
DX: J02.9 Acute pharyngitis, unspecified (principal); R51.9 Headache, unspecified; R06.02 Shortness of breath; M79.10 Myalgia, unspecified site; R05.9 Cough, unspecified; Z20.822 Contact with and (suspected) exposure to COVID-19; F17.210 Nicotine dependence, cigarettes, uncomplicated; Z79.899 Other long term (current) drug therapy; Z71.6 Tobacco abuse counseling
CPT/HCPCS: 71045; 81001; 87502; 87635; 87651; 99283; 99284

== ENCOUNTER 2022-04-26 13:01 | Emergency (ER) | payer OTHER, SELFPAY | END 2022-04-26 14:22 | disposition left against medical advice (07) | PROVIDERS: Emergency Provider Emergency Medicine; PCP Internal Medicine | DX: I10 Essential (primary) hypertension (principal) ==

== ENCOUNTER 2022-05-07 11:27 | Emergency (ER) | payer OTHER, SELFPAY ==
--- NOTE | ~2022-05-07 | XR_ITS ---
EXAMINATION: XR CHEST CLINICAL INFORMATION: Shortness of breath. COMPARISON: 04/06/2022 chest radiograph. TECHNIQUE: Frontal view of the chest was obtained. FINDINGS: The lungs are clear. Calcified granuloma in the right upper lobe laterally measures 0.5 cm without change. The heart and mediastinal structures are unremarkable. XR/XR chest 1V IMPRESSION: No acute cardiopulmonary process.
[2022-05-07 11:38] VITALS: BP 148/99; PULSE 100; RESP 18; TEMP 36.8; O2SAT 100; BMI 30.7
--- NOTE | 2022-05-07 11:41 | ECG_ITS ---
Test Reason : CP Blood Pressure : / mmHG Vent. Rate : 093 BPM Atrial Rate : 093 BPM P-R Int : 146 ms QRS Dur : 074 ms QT Int : 370 ms P-R-T Axes : 041 013 -04 degrees QTc Int : 460 ms Normal sinus rhythm Nonspecific ST abnormality Abnormal ECG When compared with ECG of 05-MAR-2022 00:09, No significant change was found Referred By: Generic ED Physician Electronically Signed By:DRE GALEANA MD
[2022-05-07 11:58] LABS: MANUAL DIFF FLAG NO
[2022-05-07 11:59] LABS: Basophils Absolute Auto 0.1 X10*3/uL (0.0-0.2); Basophils Percent Auto 0.7 % (0-2); Eosinophils Absolute Auto 0.2 X10*3/uL (0.0-0.4); Eosinophils Percent Auto 2.3 % (0-4); Hematocrit 38.1 % (37.0-47.0); Hemoglobin 12.4 g/dl (12.0-16.0); Imm Gran Abs Auto 0.01 X10*3/uL (0.00-0.03); Imm Gran Pct Auto 0.1 % (0.0-0.4); Lymphocytes Absolute Auto 2.3 X10*3/uL (1.2-4.9); Lymphocytes Percent Auto 29.6 % (20-40); Mean Corpuscular HGB Conc 32.5 g/dl (31.0-35.0); Mean Corpuscular Hemoglobin 27.1 pg (27.0-33.0); Mean Corpuscular Volume 83.2 fL (80.0-98.0); Mean Platelet Volume 10.1 fL (9.4-12.3); Monocytes Absolute Auto 0.5 X10*3/uL (0.1-1.2); Monocytes Percent Auto 6.1 % (2-11); Neutrophils Absolute Auto 4.7 x10*3/uL (2.0-8.3); Neutrophils Percent Auto 61.2 % (45-73); Platelet Count 294 X10*3/uL (160-400); Red Blood Count 4.58 X10*6/uL (4.20-5.50); Red Cell Distribution Width 14.6 % (11.0-16.0); White Blood Count 7.7 X10*3/uL (4.8-10.8)
--- NOTE | 2022-05-07 12:05 | ED.GENADULT ---
HPI - General Adult General Chief complaint: General Medical Stated complaint: SOB/Headache/Weakness Time Seen by Provider: 05/07/22 11:44 Source: patient and family Mode of arrival: ambulatory Limitations: no limitations History of Present Illness HPI narrative: 51-year-old female with a history of anxiety, asthma, cigarette smoker, high cholesterol, hypertension, fibromyalgia presents with complaints of left-sided chest pain since yesterday which is worsened with deep breathing with associated shortness of breath. No cough, fever, leg swelling or leg pain. Patient also reports headache and numbness and tingling over her entire body. No weakness, dizziness, palpitations, vomiting, diarrhea, abdominal pain. Patient denies any recent travel or sick contact. Related Data Home Medications Medication Instructions Recorded Confirmed clonazepam 0.5 mg tablet 0.5 mg PO BEDTIME PRN anxiety 04/26/22 ipratropium 20 mcg-albuterol 100 1 puff PO QID 04/26/22 mcg/actuation mist for inhalation (Combivent Respimat) Previous Rx's Medication Instructions Recorded albuterol sulfate 90 mcg/actuation 2 puff PO Q4H PRN bronchospasm 30 05/24/21 aerosol inhaler days #8.5 grams cholecalciferol (vitamin D3) 50 50 mcg PO DAILY 90 days #90 tabs 09/05/21 mcg (2,000 unit) tablet fluticasone propionate 50 2 spray intranasal Q12H 30 days 10/03/21 mcg/actuation nasal #16 grams spray,suspension (Flonase Allergy Relief) hydrochlorothiazide 25 mg tablet 25 mg PO DAILY 30 days #30 tabs 11/28/21 vnzbrnlrai-oownqayykssca-frnbncqf 1 tab PO ONCE PRN pain 30 days #30 02/15/22 50 mg-325 mg-40 mg tablet tabs loratadine 10 mg tablet 10 mg PO DAILY PRN for allergies 02/15/22 30 days #30 tabs ondansetron 4 mg disintegrating 4 mg PO Q8H PRN nausea and 02/15/22 tablet vomiting #20 tabs duloxetine 20 mg capsule,delayed 20 mg PO BID 30 days #60 caps 03/29/22 release prednisone 20 mg tablet 20 mg PO DAILY #5 tabs 04/11/22 blood pressure monitor (Blood #1 ea 04/26/22 Pressure Kit) sulfamethoxazole 800 1 tab PO BID #14 tabs 04/26/22 mg-trimethoprim 160 mg tablet (Bactrim DS) tramadol 50 mg tablet 50 mg PO BID PRN severe pain 05/02/22 (scale score 7-10) 30 days #60 tabs ajatuikdic-nxrytdvztjltz-xdioybjq 1 cap PO Q6H PRN pain #8 caps 05/07/22 50 mg-300 mg-40 mg capsule (Fioricet) prednisone 20 mg tablet 40 mg PO DAILY #8 tabs 05/07/22 Allergies Allergy/AdvReac Type Severity Reaction Status Date / Time amitriptyline Allergy Intermediate headache Verified 05/07/22 11:38 ibuprofen [From Motrin] Allergy Intermediate ITCHY RASH Verified 05/07/22 11:38 gabapentin AdvReac Intermediate vomiting Verified 05/07/22 11:38 Review of Systems Review of Systems: Yes all other systems are reviewed and are negative Constitutional: Constitutional: Reports no additional constitutional complaints, Denies body ache(s), Denies chills, Denies fever(s), Reports headache(s) and Denies weakness Eyes: Eyes: Reports no additional eye complaints and Denies change in vision ENT: Reports system reviewed and no additional complaints, except as documented, Denies dizziness, Reports headache(s), Denies nasal congestion, Denies nasal discharge and Denies neck pain Cardiovascular: Cardiovascular: Reports no additional cardiovascular complaints, Reports chest pain, Denies leg edema and Reports dyspnea Respiratory: Respiratory: Reports no additional respiratory complaints, Denies cough and Reports dyspnea Gastrointestinal: Gastrointestinal: Reports no additional gastrointestinal complaints, Denies abdominal pain, Denies diarrhea, Denies nausea and Denies vomiting Genitourinary: Genitourinary: Reports no additional female genitourinary complaints and Denies urinary incontinence Musculoskeletal: Musculoskeletal: Reports no additional musculoskeletal complaints, Denies back pain, Denies arthralgias, Denies joint swelling, Denies neck pain, Reports numbness and Reports tingling Integumentary/Breasts: Skin/Breast: Reports system reviewed and no additional complaints, except as docu and Denies rash Neurologic: Reports system reviewed and no additional complaints, except as documented, Denies dizziness, Reports headache(s), Reports numbness, Reports tingling and Denies weakness PMF Past Medical History Attestation statement: The following information was validated with the patient. Source: old records reviewed and nursing notes reviewed Medical History Acute maxillary sinusitis Anxiety Blurry vision Cervical cancer screening Depression Dyslipidemia Dyspnea Epigastric pain Essential hypertension Fibromyalgia GERD (gastroesophageal reflux disease) Goiter Hand pain Has daytime drowsiness Hospital discharge follow-up HTN (hypertension) Leg pain, bilateral Microscopic hematuria Migraine Moderate recurrent major depression Otitis externa Physical exam Pulmonary nodules Right lower quadrant pain Skin lesion Tobacco dependence Surgical History H/O LEEP H/O tubal ligation History of breast lump/mass excision History of lithotripsy Family History Family History Father Myocardial infarction Mother Lung cancer Brother Liver cancer Maternal Grandfather Stomach cancer Maternal Grandmother No problems noted. Social History Social History Housing: Apartment Alcohol intake: never Patient Tobacco Use Status: Current someday Tobacco user Tobacco use type: Cigarette Cigarettes Per Day: 3 e-Cigarette/Vaping Use: Never Used Second Hand Smoke Exposure: No Advance Directives: No Advance Directives Information Provided: No service: No Current occupational status: disabled Gender identity: Female Cognitive needs: No Hearing needs: No Vision needs: No Physical Exam ED Vital Signs: Vital Signs - 24 hr 05/07/22 11:38 05/07/22 12:25 05/07/22 12:30 Temperature 98.3 F Pulse Rate 100 88 Respiratory Rate 18 18 18 Blood Pressure 148/99 H Pulse Oximetry 100 Oxygen Delivery Method Room Air 05/07/22 12:57 05/07/22 14:29 Temperature 98.1 F Pulse Rate 93 89 Respiratory Rate 18 18 Blood Pressure 150/84 H 125/77 Pulse Oximetry 98 99 Oxygen Delivery Method Room Air Room Air BMI result Body Mass Index 30.7 Const General: cooperative, healthy appearing, comfortable and no acute distress Orientation/consciousness: patient oriented x3 Limitations: no limitations HENMT Head: Yes normal to inspection Ears: hearing grossly normal bilaterally and TM's normal bilaterally Throat: Yes posterior oropharynx normal, Yes tonsils normal and Yes uvula midline Eyes General: appearance normal, both eyes and all related structures Pupils: Equal, round and reactive pupils present Neck Neck: Yes normal visual inspection, Yes full ROM, Yes no lymphadenopathy and Yes no meningeal signs Chest Other: Left chest tender about Chest palpation & inspection: normal inspection of the chest Resp Other: Mild expiratory wheezing throughout Effort & Inspection: normal respiratory effort Cardio Rate: regular rate Rhythm: regular rhythm Peripheral pulses: Peripheral pulses 2+ throughout GI Inspection: Yes normal to inspection Palpation (GI): Soft to palpation and nontender General: Yes no CVA tenderness Back/Spine/Pelvis Back: no CVA tenderness Thoracic/Lumbar Spine: thoracic and lumbar spine normal to inspection Skin General skin exam: no rashes or lesions noted Neuro General: patient oriented x3, moves all extremities and no meningeal signs Cranial nerves: Yes Equal, round and reactive pupils present Cognition (Neuro): normal cognition Gait exam (Neuro): Normal gait present Extrem General: Yes normal to inspection, Yes no pedal edema and Yes no calf tenderness Course Course Course Narrative: Labs are unremarkable. EKG shows no ischemic changes. Chest x-ray is negative for infection. Testing for flu, COVID and RSV are negative. Patient had some mild expiratory wheezing on exam. This is likely causing her difficulty breathing and her chest discomfort. Patient has underlying asthma and smokes cigarettes. Patient reports improvement with DuoNeb. Repeat lung exam improved. Will discharge home with prednisone course. Patient also reporting mild headache. Not relieved Tylenol. Will give Fioricet. Likely viral syndrome. If improvement patient will be discharged home with prednisone and Fioricet. Reevaluation(s) Reevaluation #1: 1600-patient did not want await to see if her headache improved with Fioricet. She want to be discharged home. Reviewed worrisome signs and symptoms of when to return to the emergency department. Comfortable discharge home. Medications Administered Discontinued Medications Generic Name Dose Route Start Last Admin Trade Name Freq PRN Reason Stop Dose Admin Acetaminophen/Butalbital/Caffeine 2 tab 05/07/22 14:50 05/07/22 15:22 Butalb/Acetamin/Caff 50/325/40 Tablet PO 05/07/22 14:51 2 tab ONCE ONE Administration Albuterol/Ipratropium 3 ml 05/07/22 12:06 05/07/22 12:25 Albuterol/Iprat 2.5/0.5mg 3 Ml Ampul.Neb INHALE 05/07/22 12:07 3 ml ONCE ONE Administration Sodium Chloride 1,000 mls @ 999 mls/hr 05/07/22 11:58 05/07/22 13:45 Ns IVCONT 05/07/22 12:58 Infused .Q1H1M STA Infusion Morphine Sulfate 4 mg 05/07/22 11:58 05/07/22 12:30 Morphine Sulfate 4 Mg/Ml Cartridge IVPUSH 05/07/22 11:59 4 mg ONCE ONE Administration Protocol Potassium Chloride 40 meq 05/07/22 12:25 05/07/22 12:54 Potassium Chloride Er 20 Meq Tab.Er.Prt PO 05/07/22 12:26 40 meq ONCE ONE Administration Prednisone 60 mg 05/07/22 14:50 05/07/22 15:23 Prednisone 20 Mg Tablet PO 05/07/22 14:51 60 mg ONCE ONE Administration Medical Decision Making MDM Narrative Medical decision making narrative: 51 female here with left-sided chest pain which is reproducible, pleuritic in nature since yesterday with some shortness of breath. Also complaining of headache and numbness and tingling over entire body. Left chest tender to palpate, worsened with deep breathing, expiratory wheezing throughout. Normal neuro exam. No focal finding. Will check labs, EKG, chest x-ray, screen for COVID, flu, RSV Will give IV fluids, pain control Differential Diagnosis Differential Diagnosis: Viral syndrome, costochondritis, ACS, PE, pneumonia Medical Records Medical records reviewed: Yes I reviewed the patient's medical records. Lab Data Lab results reviewed: Yes I reviewed the patient's lab results. Result diagrams: 05/07/22 11:50 05/07/22 11:50 Labs: Lab Results 05/07/22 05/07/22 05/07/22 Range/Units 11:50 11:50 11:50 WBC 7.7 (4.8-10.8) X10*3/uL RBC 4.58 (4.20-5.50) X10*6/uL Hgb 12.4 (12.0-16.0) g/dl Hct 38.1 (37.0-47.0) % MCV 83.2 (80.0-98.0) fL MCH 27.1 (27.0-33.0) pg MCHC 32.5 (31.0-35.0) g/dl RDW 14.6 (11.0-16.0) % Plt Count 294 (160-400) X10*3/uL MPV 10.1 (9.4-12.3) fL Immature Gran % (Auto) 0.1 (0.0-0.4) % Neut % (Auto) 61.2 (45-73) % Lymph % (Auto) 29.6 (20-40) % [place] % (Auto) 6.1 (2-11) % Eos % (Auto) 2.3 (0-4) % Baso % (Auto) 0.7 (0-2) % Lymph # (Auto) 2.3 (1.2-4.9) X10*3/uL [place] # (Auto) 0.5 (0.1-1.2) X10*3/uL Eos # (Auto) 0.2 (0.0-0.4) X10*3/uL Baso # (Auto) 0.1 (0.0-0.2) X10*3/uL Abs Immat Gran (auto) 0.01 (0.00-0.03) X10*3/uL Absolute Neuts (auto) 4.7 (2.0-8.3) x10*3/uL Absolute Nucleated RBC 0.000 (0.0-0.012) X10*3/uL Nucleated RBC % (auto) 0.0 (0.0-0.2) /100WBC PT (10.0-13.1) SEC INR (0.9-1.1) D-Dimer High Sensitivty NG/ML Sodium 140 (135-145) mmol/L Potassium 3.1 L (3.3-5.1) mmol/L Chloride 102 (96-108) mmol/L Carbon Dioxide 27 (22-29) mmol/L Anion Gap 14 (12-20) BUN 8 L (9-16) mg/dL Creatinine 0.90 (0.5-1.4) mg/dL Estim Creat Clear Calc 63.6 Estimated GFR > 60 Random Glucose 89 (60-115) mg/dL Calcium 9.6 (8.4-10.2) mg/dL Troponin I High Sens < 3.5 (<3.5-17.0) ng/L Influenza Type A (PCR) (Negative) Influenza Type B (PCR) (Negative) RSV RNA Qual (PCR) (Negative) SARS-CoV-2 RNA (RT-PCR) (Negative) 05/07/22 05/07/22 Range/Units 12:24 12:28 WBC (4.8-10.8) X10*3/uL RBC (4.20-5.50) X10*6/uL Hgb (12.0-16.0) g/dl Hct (37.0-47.0) % MCV (80.0-98.0) fL MCH (27.0-33.0) pg MCHC (31.0-35.0) g/dl RDW (11.0-16.0) % Plt Count (160-400) X10*3/uL MPV (9.4-12.3) fL Immature Gran % (Auto) (0.0-0.4) % Neut % (Auto) (45-73) % Lymph % (Auto) (20-40) % [place] % (Auto) (2-11) % Eos % (Auto) (0-4) % Baso % (Auto) (0-2) % Lymph # (Auto) (1.2-4.9) X10*3/uL [place] # (Auto) (0.1-1.2) X10*3/uL Eos # (Auto) (0.0-0.4) X10*3/uL Baso # (Auto) (0.0-0.2) X10*3/uL Abs Immat Gran (auto) (0.00-0.03) X10*3/uL Absolute Neuts (auto) (2.0-8.3) x10*3/uL Absolute Nucleated RBC (0.0-0.012) X10*3/uL Nucleated RBC % (auto) (0.0-0.2) /100WBC PT 12.2 (10.0-13.1) SEC INR 1.1 (0.9-1.1) D-Dimer High Sensitivty < 150 NG/ML Sodium (135-145) mmol/L Potassium (3.3-5.1) mmol/L Chloride (96-108) mmol/L Carbon Dioxide (22-29) mmol/L Anion Gap (12-20) BUN (9-16) mg/dL Creatinine (0.5-1.4) mg/dL Estim Creat Clear Calc Estimated GFR Random Glucose (60-115) mg/dL Calcium (8.4-10.2) mg/dL Troponin I High Sens (<3.5-17.0) ng/L Influenza Type A (PCR) NEGATIVE (Negative) Influenza Type B (PCR) NEGATIVE (Negative) RSV RNA Qual (PCR) NEGATIVE (Negative) SARS-CoV-2 RNA (RT-PCR) NEGATIVE (Negative) Imaging Data Chest x-ray: Attestation: I personally reviewed and interpreted this imaging study as follows: Radiologist's impression: [address] [address] XRay Report Signed Patient: Peace Urias MR#: [id number] : 1970 Acct:[id number] Age/Sex: 51 / F ADM Date: 05/07/22 Loc: .ED Attending Dr: Ordering Physician: Celso Muro MD Date of Service: 05/07/22 Procedure(s): XR chest 1V Accession Number(s): [id number] cc: Celso Muro MD~ EXAMINATION: XR CHEST CLINICAL INFORMATION: Shortness of breath. COMPARISON: 04/06/2022 chest radiograph. TECHNIQUE: Frontal view of the chest was obtained. FINDINGS: The lungs are clear. Calcified granuloma in the right upper lobe laterally measures 0.5 cm without change. The heart and mediastinal structures are unremarkable. XR/XR chest 1V IMPRESSION: No acute cardiopulmonary process. ? ECG Data Attestation: I personally reviewed and interpreted this ECG as follows: Interpretation: Normal sinus rhythm with a rate of 93, normal TX, normal QRS, normal QT, T-wave inversion 3 Discharge Plan Discharge Clinical Impression: Upper respiratory illness, Headache, Wheezing, Chest wall pain Patient Disposition: Home, Self-Care Instructions: Acute Headache (ED), Viral Syndrome (ED), Chest Wall Pain (ED), Wheezing (ED) Additional Instructions: Testing for flu, COVID and RSV are negative X-ray shows no signs of infection Your EKG is reassuring Start prednisone tomorrow Use your albuterol every 4 hours for cough or wheezing Prescriptions: New prednisone 20 mg tablet 40 mg PO DAILY Qty: 8 0RF tgjsgwnpdr-rtcreqszynwea-nunr [Fioricet] 50-300-40 mg capsule 1 cap PO Q6H PRN (Reason: pain) Qty: 8 0RF No Action albuterol sulfate 90 mcg/actuation HFA aerosol inhaler 2 puff PO Q4H PRN (Reason: bronchospasm) 30 Days Qty: 8.5 6RF fluticasone propionate [Flonase Allergy Relief] 50 mcg/actuation spray,suspension 2 spray intranasal Q12H 30 Days Qty: 16 0RF Rx Instructions: administer into each nostril hydrochlorothiazide 25 mg tablet 25 mg PO DAILY 30 Days Qty: 30 11RF srohoewogs-zdlkjusxnwqvj-znek 50-325-40 mg tablet 1 tab PO ONCE PRN (Reason: pain) 30 Days Qty: 30 0RF ondansetron 4 mg tablet,disintegrating 4 mg PO Q8H PRN (Reason: nausea and vomiting) Qty: 20 0RF loratadine 10 mg tablet 10 mg PO DAILY PRN (Reason: for allergies) 30 Days Qty: 30 1RF duloxetine 20 mg capsule,delayed release(DR/EC) 20 mg PO BID 30 Days Qty: 60 0RF tramadol 50 mg tablet 50 mg PO BID PRN (Reason: severe pain (scale score 7-10)) 30 Days Qty: 60 0RF cholecalciferol (vitamin D3) 50 mcg (2,000 unit) tablet 50 mcg PO DAILY 90 Days Qty: 90 1RF prednisone 20 mg tablet 20 mg PO DAILY Qty: 5 0RF clonazepam 0.5 mg tablet 0.5 mg PO BEDTIME PRN (Reason: anxiety) Combivent Respimat 20-100 mcg/actuation mist 1 puff PO QID Label Comments: Pulmo given (DME) blood pressure monitor [Blood Pressure Kit] Kit See Rx Instructions .ROUTE .MEDSUPPLY Qty: 1 0RF Rx Instructions: As directed sulfamethoxazole-trimethoprim [Bactrim DS] 800-160 mg tablet 1 tab PO BID Qty: 14 0RF Referrals: Neyda Foster MD [Primary Care Provider] - 1 week (as needed) Interventions: ED Discharge Assessment Last Done: 05/07/22 15:41 Discharge Date/Time: 05/07/22 15:42 Print Language: Persian
[2022-05-07 12:20] LABS: Anion Gap 14 (12-20); Blood Urea Nitrogen 8 mg/dL (9-16); Calcium 9.6 mg/dL (8.4-10.2); Carbon Dioxide 27 mmol/L (22-29); Chloride 102 mmol/L (96-108); Creatinine Clr Calc Pharmacy 63.6; Estimated Glomerular Filt Rate > 60; Glucose Random 89 mg/dL (60-115); Potassium 3.1 mmol/L (3.3-5.1); Sodium 140 mmol/L (135-145)
[2022-05-07 12:25] VITALS: PULSE 88; RESP 18; O2SAT 98
[2022-05-07] MEDS: Albuterol/Iprat 2.5/0.5MG 3 ML AMPUL.NEB INHALE (12:25)
[2022-05-07 12:27] LABS: Troponin-I High Sensitivity < 3.5 ng/L (<3.5-17.0)
[2022-05-07 12:30] VITALS: RESP 18
[2022-05-07] MEDS: Morphine Sulfate 4 MG/ML CARTRIDGE IVPUSH (12:30)
[2022-05-07] MEDS: 0.9 % Sodium Chloride 1,000 ML 999 ML IVCONT (12:30)
[2022-05-07 12:48] LABS: INTERNATIONAL NORM RATIO 1.1 (0.9-1.1); Prothrombin Time 12.2 SEC (10.0-13.1)
[2022-05-07 12:50] LABS: D Dimer High Sensitivity < 150 NG/ML
[2022-05-07] MEDS: Potassium Chloride ER 20 MEQ TAB.ER.PRT 40 MEQ PO (12:54)
--- NOTE | 2022-05-07 12:55 | PC.NURSE ---
pt medicated per aug. Pt on cardiac , monitor NSR at 93 BPM. CAMPBELL x 3. IV infusing with NS. BP improved from arrival to ED. Pain ihn chest went from 10 to 7 following medication.
[2022-05-07 12:57] VITALS: BP 150/84; PULSE 93; RESP 18; O2SAT 98
[2022-05-07 14:08] LABS: Influenza A PCR NEGATIVE (Negative); Influenza B PCR NEGATIVE (Negative); Resp Syncy Virus RNA Qual PCR NEGATIVE (Negative); SARS COV2 PCR INHOUSE NEGATIVE (Negative)
[2022-05-07 14:29] VITALS: BP 125/77; PULSE 89; RESP 18; TEMP 36.7; O2SAT 99
[2022-05-07] MEDS: Butalb/Acetamin/Caff 50/325/40 TABLET 2 TAB PO (15:22)
[2022-05-07] MEDS: predniSONE 20 MG TABLET 60 MG PO (15:23)
--- NOTE | 2022-05-07 15:24 | PC.NURSE ---
pt medicated for headache, pt requesting discharge due to needing a ride home, provider notified.
== END 2022-05-07 15:42 | disposition home or self-care (01) ==
PROVIDERS: Nurse Practitioner Family; Emergency Provider Emergency Medicine Emergency Medical Services; PCP Internal Medicine
DX: J06.9 Acute upper respiratory infection, unspecified (principal); R07.89 Other chest pain; R51.9 Headache, unspecified; Z20.822 Contact with and (suspected) exposure to COVID-19; F17.210 Nicotine dependence, cigarettes, uncomplicated; Z71.6 Tobacco abuse counseling; Z79.899 Other long term (current) drug therapy
CPT/HCPCS: 0241U; 36415; 71045; 80048; 84484; 85025; 85379; 85610; 93005; 94640; 99285; J2270

== ENCOUNTER 2022-05-15 12:45 | Outpatient (REF) | payer OTHER, SELFPAY ==
[2022-05-15 13:48] LABS: Anion Gap 16 (12-20); Blood Urea Nitrogen 17 mg/dL (9-16); Carbon Dioxide 27 mmol/L (22-29); Chloride 101 mmol/L (96-108); Estimated Glomerular Filt Rate > 60; Potassium 3.9 mmol/L (3.3-5.1); Sodium 140 mmol/L (135-145)
[2022-05-15 13:49] LABS: Alanine Aminotransferase 25 U/L (0-31); Albumin Level 4.7 g/dL (3.5-5.0); Alkaline Phosphatase 118 U/L (39-117); Aspartate Amino Transferase 18 U/L (5-31); Bilirubin Total 0.4 mg/dL (0.0-1.0); Calcium 10.1 mg/dL (8.4-10.2); Cholesterol 252 mg/dL; Glucose Fasting 97 mg/dL (60-99); HDL Cholesterol 46 mg/dL; Total Protein 8.1 g/dL (6.5-8.0); Triglycerides 447 mg/dL
[2022-05-15 14:10] LABS: Free T4 (Free Thyroxine) 0.93 ng/dL (0.71-1.85); Thyroid Stimulating Hormone 0.58 uIU/mL (0.32-4.0); Vitamin D 25-OH Total 16.7 ng/mL (>30)
== END 2022-05-15 12:46 | disposition home or self-care (01) ==
LOC: HO.LAB 12:45
PROVIDERS: PCP Internal Medicine; Visit Provider Internal Medicine
DX: E04.9 Nontoxic goiter, unspecified (principal); E78.5 Hyperlipidemia, unspecified; E55.9 Vitamin D deficiency, unspecified; E66.3 Overweight
CPT/HCPCS: 36415; 80053; 80061; 82306; 84439; 84443

== ENCOUNTER 2022-05-17 23:28 | Emergency (ER) | payer OTHER, SELFPAY ==
[2022-05-17 23:38] VITALS: BP 156/81; PULSE 89; RESP 16; TEMP 36.7; O2SAT 96; BMI 34.2
--- NOTE | 2022-05-18 00:54 | ED_ITS ---
HPI - Headache General Chief Complaint: Headache Stated Complaint: neck/head pain balance issues high bp Time Seen by Provider: 05/18/22 00:54 Source: patient Mode of arrival: ambulatory Limitations: no limitations History of Present Illness HPI Narrative: Patient history of migraine headaches, fibromyalgia been having headache, upper back pain similar in the past no nausea no vomiting no light sensitivity shortn ess of breath no cough or chest pain patient been getting tramadol from her PCP for chronic pain MD elicited complaint: headache Onset (ago): day(s) Onset description: gradually Related Data Home Medications Medication Instructions Recorded Confirmed clonazepam 0.5 mg tablet 0.5 mg PO BEDTIME PRN anxiety 04/26/22 Previous Rx's Medication Instructions Recorded albuterol sulfate 90 mcg/actuation 2 puff PO Q4H PRN bronchospasm 30 05/24/21 aerosol inhaler days #8.5 grams hydrochlorothiazide 25 mg tablet 25 mg PO DAILY 30 days #30 tabs 11/28/21 btiwructlx-dpwhlrguenamo-haqogcaz 1 tab PO ONCE PRN pain 30 days #30 02/15/22 50 mg-325 mg-40 mg tablet tabs loratadine 10 mg tablet 10 mg PO DAILY PRN for allergies 02/15/22 30 days #30 tabs ondansetron 4 mg disintegrating 4 mg PO Q8H PRN nausea and 02/15/22 tablet vomiting #20 tabs prednisone 20 mg tablet 20 mg PO DAILY #5 tabs 04/11/22 blood pressure monitor (Blood #1 ea 04/26/22 Pressure Kit) sulfamethoxazole 800 1 tab PO BID #14 tabs 04/26/22 mg-trimethoprim 160 mg tablet (Bactrim DS) tramadol 50 mg tablet 50 mg PO BID PRN severe pain 05/02/22 (scale score 7-10) 30 days #60 tabs ixdbxfofck-mrkmuswmcyrta-uskzkiyq 1 cap PO Q6H PRN pain #8 caps 05/07/22 50 mg-300 mg-40 mg capsule (Fioricet) prednisone 20 mg tablet 40 mg PO DAILY #8 tabs 05/07/22 fluticasone propionate 50 2 spray intranasal Q12H 30 days 05/12/22 mcg/actuation nasal #16 grams spray,suspension (Flonase Allergy Relief) ipratropium 20 mcg-albuterol 100 1 puff PO QID 30 days #25 mL 05/12/22 mcg/actuation mist for inhalation (Combivent Respimat) duloxetine 20 mg capsule,delayed 20 mg PO BID 30 days #60 caps 05/16/22 release cholecalciferol (vitamin D3) 50 50 mcg PO DAILY 90 days #90 tabs 05/17/22 mcg (2,000 unit) tablet cyclobenzaprine 10 mg tablet 10 mg PO Q8H #20 tabs 05/18/22 Allergies Allergy/AdvReac Type Severity Reaction Status Date / Time amitriptyline Allergy Intermediate headache Verified 05/07/22 11:38 ibuprofen [From Motrin] Allergy Intermediate ITCHY RASH Verified 05/07/22 11:38 gabapentin AdvReac Intermediate vomiting Verified 05/07/22 11:38 PMFSH Past Medical History Medical History Acute maxillary sinusitis Anxiety Blurry vision Cervical cancer screening Depression Dyslipidemia Dyspnea Epigastric pain Essential hypertension Fibromyalgia GERD (gastroesophageal reflux disease) Goiter Hand pain Has daytime drowsiness Hospital discharge follow-up HTN (hypertension) Leg pain, bilateral Microscopic hematuria Migraine Moderate recurrent major depression Otitis externa Physical exam Pulmonary nodules Right lower quadrant pain Skin lesion Tobacco dependence Surgical History H/O LEEP H/O tubal ligation History of breast lump/mass excision History of lithotripsy Family History Family History Father Myocardial infarction Mother Lung cancer Brother Liver cancer Maternal Grandfather Stomach cancer Maternal Grandmother No problems noted. Social History Social History Housing: Apartment Alcohol intake: never Patient Tobacco Use Status: Current someday Tobacco user Tobacco use type: Cigarette Cigarettes Per Day: 3 Smoked in Last 30 Days: Yes e-Cigarette/Vaping Use: Never Used Second Hand Smoke Exposure: No Use of substances other than those prescribed or required for medical reasons: No Advance Directives: No service: No Current occupational status: disabled Gender identity: Female Cognitive needs: No Hearing needs: No Vision needs: No Physical Exam Vital Signs: Vital Signs: Last Vital Signs Temp 98.0 F 05/17/22 23:38 Pulse 89 05/17/22 23:38 Resp 16 05/17/22 23:38 BP 156/81 H 05/17/22 23:38 Pulse Ox 96 05/17/22 23:38 O2 Del Method 05/17/22 23:38 BMI result Body Mass Index 34.2 Appearance: Alert. Oriented X3. No acute distress. Eyes: PERRLA, No Nystagmus ENT: Pharynx normal. Oral Mucosa moist temporal artery nontender Neck: Normal inspection. Neck supple. No midline tenderness .bilateral trapezius tenderness CVS: Normal heart rate and rhythm. Pulses normal. Respiratory: No respiratory distress. Equal air entry bilateral, no wheezing/rales/rhonchi Abdomen: Soft and nontender. Bowel sounds are present, no mass palpable, no CVA tenderness Skin: Skin warm and dry. Normal skin color. Normal skin turgor. Extremities: No lower extremity edema. No calf tenderness Neuro: Oriented X 3. No motor deficit. No sensory deficit.No cerebellar signs , cranial nerves II-XII intact MDM - Headache MDM Narrative Medical decision making narrative: Patient with migraine headache and small hyper myalgia discharge patient home on Flexeril patient already has tramadol at home Lab Data Attestation: I reviewed the patient's lab results. Discharge Plan Discharge Clinical Impression: Fibromyalgia Patient Disposition: Home, Self-Care Instructions: Fibromyalgia (ED) Additional Instructions: Continue your tramadol Add Flexeril 1 tablet every 8 hours as needed for muscle spasm Follow with PCP if any concerns Prescriptions: New cyclobenzaprine 10 mg tablet 10 mg PO Q8H Qty: 20 0RF No Action albuterol sulfate 90 mcg/actuation HFA aerosol inhaler 2 puff PO Q4H PRN (Reason: bronchospasm) 30 Days Qty: 8.5 6RF hydrochlorothiazide 25 mg tablet 25 mg PO DAILY 30 Days Qty: 30 11RF dggxeurwmr-ykfllqxixcmha-ahse 50-325-40 mg tablet 1 tab PO ONCE PRN (Reason: pain) 30 Days Qty: 30 0RF ondansetron 4 mg tablet,disintegrating 4 mg PO Q8H PRN (Reason: nausea and vomiting) Qty: 20 0RF loratadine 10 mg tablet 10 mg PO DAILY PRN (Reason: for allergies) 30 Days Qty: 30 1RF tramadol 50 mg tablet 50 mg PO BID PRN (Reason: severe pain (scale score 7-10)) 30 Days Qty: 60 0RF Combivent Respimat 20-100 mcg/actuation mist 1 puff PO QID 30 Days Qty: 25 1RF Label Comments: Pulmo given fluticasone propionate [Flonase Allergy Relief] 50 mcg/actuation spray,suspension 2 spray intranasal Q12H 30 Days Qty: 16 0RF Rx Instructions: administer into each nostril duloxetine 20 mg capsule,delayed release(DR/EC) 20 mg PO BID 30 Days Qty: 60 3RF cholecalciferol (vitamin D3) 50 mcg (2,000 unit) tablet 50 mcg PO DAILY 90 Days Qty: 90 1RF prednisone 20 mg tablet 40 mg PO DAILY Qty: 8 0RF sbmsjzqkzj-czzfdwvznokca-zmvy [Fioricet] 50-300-40 mg capsule 1 cap PO Q6H PRN (Reason: pain) Qty: 8 0RF prednisone 20 mg tablet 20 mg PO DAILY Qty: 5 0RF clonazepam 0.5 mg tablet 0.5 mg PO BEDTIME PRN (Reason: anxiety) (DME) blood pressure monitor [Blood Pressure Kit] Kit See Rx Instructions .ROUTE .MEDSUPPLY Qty: 1 0RF Rx Instructions: As directed sulfamethoxazole-trimethoprim [Bactrim DS] 800-160 mg tablet 1 tab PO BID Qty: 14 0RF
[2022-05-18] MEDS: Cyclobenzaprine HCl 10 MG TABLET PO (01:11)
[2022-05-18 01:12] VITALS: RESP 14
[2022-05-18] MEDS: Morphine Sulfate 4 MG/ML CARTRIDGE IM (01:12)
[2022-05-18 01:30] VITALS: BP 139/84; PULSE 89; RESP 16; TEMP 36.8; O2SAT 99
== END 2022-05-18 01:58 | disposition home or self-care (01) ==
PROVIDERS: Emergency Provider Internal Medicine; PCP Internal Medicine Medical Oncology
DX: M79.7 Fibromyalgia (principal); R51.9 Headache, unspecified; I10 Essential (primary) hypertension; E78.5 Hyperlipidemia, unspecified; F17.210 Nicotine dependence, cigarettes, uncomplicated; Z79.899 Other long term (current) drug therapy
CPT/HCPCS: 96372; 99284; J2270

== ENCOUNTER 2022-07-03 14:44 | Emergency (ER) | payer OTHER, SELFPAY ==
[2022-07-03 15:19] VITALS: BP 139/80; PULSE 97; RESP 18; TEMP 36.6; O2SAT 98; BMI 31.6
--- NOTE | 2022-07-03 15:20 | ED.GENADULT ---
HPI - General Adult General Chief complaint: Upper Respiratory Symptoms <MARLENA Jimenez Last Filed: 07/03/22 19:44> Stated complaint: ear pain sore throat neck pain <MARLENA Jimenez Last Filed: 07/03/22 19:44> Time Seen by Provider: 07/03/22 15:49 <MARLENA Jimenez Last Filed: 07/03/22 19:44> Source: patient <MARLENA Flores Last Filed: 07/04/22 08:27> Mode of arrival: ambulatory <MARLENA Flores Last Filed: 07/04/22 08:27> Limitations: no limitations <MARLENA Flores Last Filed: 07/04/22 08:27> History of Present Illness HPI narrative: Patient is a 51 year old assigned female at with a history of JOHN presenting to the emergency department today with a cough and ear pain. Patient states that over the last few days she has had a cough and ear pain. Patient denies any dizziness, lightheadedness, abdominal pain, nausea, vomiting, fever, chills, blurry vision, double vision, loss of vision, chest pain, difficulty breathing, shortness of breath, back pain, night sweats, pain with urination, increased urinary frequency, increased urinary urgency, blood in her urine or stool, syncope or a near syncopal episode, recent trauma or falls, bowel incontinence, bladder incontinence, bowel retention, bladder retention, or any other complaints at this time. <MARLENA Flores Last Filed: 07/04/22 08:27> Onset (ago): day(s) <MARLENA Flores Last Filed: 07/04/22 08:27> Severity: mild <MARLENA Flores Last Filed: 07/04/22 08:27> Severity scale (1-10): 1 <MARLENA Flores Last Filed: 07/04/22 08:27> Relieving factors: none <MARLENA Flores Last Filed: 07/04/22 08:27> Exacerbating factors: none <MARLENA Flores Last Filed: 07/04/22 08:27> Associated symptoms: cough <MARLENA Flores Last Filed: 07/04/22 08:27> Treatments prior to arrival: none <MARLENA Flores - Last Filed: 07/04/22 08:27> Related Data Home medications: Previous Rx's Medication Instructions Recorded albuterol sulfate 90 mcg/actuation 2 puff PO Q4H PRN bronchospasm 30 05/24/21 aerosol inhaler days #8.5 grams hydrochlorothiazide 25 mg tablet 25 mg PO DAILY 30 days #30 tabs 11/28/21 [id number]-[id number]-[id number] 1 tab PO ONCE PRN pain 30 days #30 02/15/22 50 mg-325 mg-40 mg tablet tabs blood pressure monitor (Blood #1 ea 04/26/22 Pressure Kit) duloxetine 20 mg capsule,delayed 20 mg PO BID 30 days #60 caps 05/16/22 release cholecalciferol (vitamin D3) 50 50 mcg PO DAILY 90 days #90 tabs 05/17/22 mcg (2,000 unit) tablet cyclobenzaprine 10 mg tablet 10 mg PO Q8H #20 tabs 05/18/22 clonazepam 0.5 mg tablet 0.5 mg PO BEDTIME PRN anxiety 30 05/26/22 days #60 tabs fenofibrate 54 mg tablet 54 mg PO DAILY 90 days #90 tabs 06/20/22 fluconazole 150 mg tablet 150 mg PO Q3D 2 doses #2 tabs 06/20/22 (Diflucan) fluticasone propionate 50 2 spray intranasal Q12H 30 days 06/29/22 mcg/actuation nasal #16 grams spray,suspension (Flonase Allergy Relief) ipratropium 20 mcg-albuterol 100 1 puff PO QID 30 days #25 mL 06/29/22 mcg/actuation mist for inhalation (Combivent Respimat) loratadine 10 mg tablet 10 mg PO DAILY PRN for allergies 06/29/22 30 days #30 tabs amoxicillin 500 mg tablet 500 mg PO BID 7 days #14 tabs 06/30/22 tramadol 50 mg tablet 50 mg PO BID PRN severe pain 07/01/22 (scale score 7-10) 30 days #60 tabs <MARLENA Jimenez - Last Filed: 07/03/22 19:44> Allergies/adverse reactions: Allergies Allergy/AdvReac Type Severity Reaction Status Date / Time amitriptyline Allergy Intermediate headache Verified 06/20/22 17:03 ibuprofen [From Motrin] Allergy Intermediate ITCHY RASH Verified 06/20/22 17:03 gabapentin AdvReac Intermediate vomiting Verified 06/20/22 17:03 <MARLENA Jimenez Last Filed: 07/03/22 19:44> Review of Systems Constitutional: Constitutional: Reports no additional constitutional complaints, Denies chills, Denies fever(s) and Denies night sweats <MARLENA Flores Last Filed: 07/04/22 08:27> Eyes: Eyes: Reports no additional eye complaints, Denies blurry vision, Denies change in vision, Denies diplopia, Denies eye discharge, Denies loss of vision and Denies eye pain <MARLENA Flores Last Filed: 07/04/22 08:27> ENT: Denies dizziness <MARLENA Flores Last Filed: 07/04/22 08:27> Comments: ear pain <MARLENA Flores Last Filed: 07/04/22 08:27> Cardiovascular: Cardiovascular: Reports no additional cardiovascular complaints, Denies chest pain, Denies lightheadedness, Denies Loss of Consciousness and Denies dyspnea <MARLENA Flores Last Filed: 07/04/22 08:27> Respiratory: Respiratory: Reports no additional respiratory complaints, Reports cough and Denies dyspnea <MARLENA Flores Last Filed: 07/04/22 08:27> Gastrointestinal: Gastrointestinal: Reports no additional gastrointestinal complaints, Denies abdominal pain, Denies melena, Denies hematochezia, Denies change in bowel habits and Denies change in stool character <MARLENA Flores Last Filed: 07/04/22 08:27> Genitourinary: Genitourinary: Denies hematuria, Denies urinary frequency, Denies dysuria, Denies urinary incontinence, Denies urinary hesitancy and Denies urinary urgency <MARLENA Flores Last Filed: 07/04/22 08:27> Musculoskeletal: Musculoskeletal: Reports no additional musculoskeletal complaints, Denies numbness and Denies tingling <MARLENA Flores Last Filed: 07/04/22 08:27> Neurologic: Denies dizziness, Denies loss of vision, Denies numbness and Denies tingling <MARLENA Flores - Last Filed: 07/04/22 08:27> Psychiatric: Psychiatric: Reports no additional psychiatric complaints <MARLENA Flores - Last Filed: 07/04/22 08:27> Endocrine: Endocrine: Reports no additional endocrine complaints <MARLENA Flores - Last Filed: 07/04/22 08:27> Hematologic/Lymphatic: Hematologic/Lymphatic: Reports no additional hematologic/lymphatic complaints <MARLENA Flores - Last Filed: 07/04/22 08:27> Allergic/Immunologic: Allergic/Immunologic: Reports no additional allergic/immunologic complaints <MARLENA Flores - Last Filed: 07/04/22 08:27> [facility] Past Medical History Attestation statement: The following information was validated with the patient. <MARLENA Flores - Last Filed: 07/04/22 08:27> Source: old records reviewed and nursing notes reviewed <MARLENA Flores - Last Filed: 07/04/22 08:27> Medical History: Medical History Acute maxillary sinusitis Anxiety Blurry vision Cervical cancer screening Depression Dyslipidemia Dyspnea Epigastric pain Essential hypertension Fibromyalgia GERD (gastroesophageal reflux disease) Goiter Hand pain Has daytime drowsiness Hospital discharge follow-up HTN (hypertension) Leg pain, bilateral Microscopic hematuria Migraine Moderate recurrent major depression Otitis externa Physical exam Pulmonary nodules Right lower quadrant pain Skin lesion Tobacco dependence <MARLENA Jimenez - Last Filed: 07/03/22 19:44> Surgical History: Surgical History H/O LEEP H/O tubal ligation History of breast lump/mass excision History of lithotripsy <MARLENA Jimenez - Last Filed: 07/03/22 19:44> Family History Family History: Family History Father Myocardial infarction Mother Lung cancer Brother Liver cancer Maternal Grandfather Stomach cancer Maternal Grandmother No problems noted. <MARLENA Jimenez - Last Filed: 07/03/22 19:44> Social History Social History: Social History Housing: Apartment Alcohol intake: never Patient Tobacco Use Status: Current someday Tobacco user Tobacco use type: Cigarette Cigarettes Per Day: 3 e-Cigarette/Vaping Use: Never Used Second Hand Smoke Exposure: No Advance Directives: No Advance Directives Information Provided: No service: No Current occupational status: disabled Gender identity: Female Cognitive needs: No Hearing needs: No Vision needs: No <MARLENA Jimenez Last Filed: 07/03/22 19:44> Physical Exam ED Vital Signs: Vital Signs - 24 hr 07/03/22 15:19 Temperature 97.9 F Pulse Rate 97 Respiratory Rate 18 Blood Pressure 139/80 Pulse Oximetry 98 Oxygen Delivery Method Room Air BMI result Body Mass Index 31.6 <MARLENA Jimenez - Last Filed: 07/03/22 19:44> Vital Signs - 24 hr 07/03/22 15:19 Temperature 97.9 F Pulse Rate 97 Respiratory Rate 18 Blood Pressure 139/80 Pulse Oximetry 98 Oxygen Delivery Method Room Air BMI result Body Mass Index 31.6 <MARLENA Flores - Last Filed: 07/04/22 08:27> Const General: cooperative, no acute distress, alert and awake <MARLENA Flores Last Filed: 07/04/22 08:27> Nutritional Appearance: well nourished <MARLENA Flores Last Filed: 07/04/22 08:27> Orientation/consciousness: patient oriented x3 <MARLENA Flores Last Filed: 07/04/22 08:27> Limitations: no limitations <MARLENA Flores Last Filed: 07/04/22 08:27> HENMT Head: Yes normal to inspection and Yes atraumatic <MARLENA Flores Last Filed: 07/04/22 08:27> Ears: hearing grossly normal bilaterally, external ears normal, TM normal on the right and TM normal on the left <MARLENA Flores Last Filed: 07/04/22 08:27> General nose exam: Normal external nose present, no nasal discharge noted and no epistaxis <MARLENA Flores Last Filed: 07/04/22 08:27> Face and sinus: Yes normal facial exam, No abrasion and No laceration <Belle Linda OK - Last Filed: 07/04/22 08:27> Mouth: Normal oral and palatal mucosa present, no drooling and no muffled voice <Bellemaryan VillaMARLENA holder - Last Filed: 07/04/22 08:27> Eyes General: appearance normal, both eyes and all related structures <MARLENA Flores - Last Filed: 07/04/22 08:27> Periorbital: periorbital findings normal <Belle Linda OK - Last Filed: 07/04/22 08:27> Eyelids: Yes eyelids normal <Belle Linda OK - Last Filed: 07/04/22 08:27> Conjunctivae: conjunctivae normal <Belle MARLENA Mckeon - Last Filed: 07/04/22 08:27> Pupils: Equal, round and reactive pupils present <Belle Mckeon OK - Last Filed: 07/04/22 08:27> EOM: EOMs intact bilaterally <Belle Mckeon OK - Last Filed: 07/04/22 08:27> Neck Neck: Yes normal visual inspection, Yes full ROM and Yes no lymphadenopathy <Belle Mckeon OK - Last Filed: 07/04/22 08:27> Chest Chest palpation & inspection: normal inspection of the chest <MARLENA Flores - Last Filed: 07/04/22 08:27> Resp Effort & Inspection: normal respiratory effort and able to speak in complete sentences <MARLENA Flores - Last Filed: 07/04/22 08:27> Auscultation: clear to auscultation bilaterally <Belle Mckeon OK - Last Filed: 07/04/22 08:27> Cardio Rate: regular rate <Belle Mckeon OK - Last Filed: 07/04/22 08:27> Rhythm: regular rhythm <MARLENA Flores - Last Filed: 07/04/22 08:27> GI Inspection: Yes normal to inspection <MARLENA Flores - Last Filed: 07/04/22 08:27> Neuro General: patient oriented x3 and moves all extremities <MARLENA Flores - Last Filed: 07/04/22 08:27> Cranial nerves: Yes Equal, round and reactive pupils present <Belle VillaMARLENA holder - Last Filed: 07/04/22 08:27> Cognition (Neuro): normal cognition <Belle VillaMARLENA holder - Last Filed: 07/04/22 08:27> Motor exam (neuro): 5/5 motor strength present throughout <Belle VillaMARLENA holder - Last Filed: 07/04/22 08:27> Sensory Exam: Normal double simultaneous stimulation for sensation <Belle MckeonMARLENA holder - Last Filed: 07/04/22 08:27> Coordination: [id number] test normal <Belle VillaMARLENA holder - Last Filed: 07/04/22 08:27> Extrem General: Yes normal to inspection, Yes full ROM and Yes capillary refill normal <Belle VillaMARLENA holder - Last Filed: 07/04/22 08:27> Psych Appearance: grossly normal <Bellemaryan VillaMARLENA holder - Last Filed: 07/04/22 08:27> Mental Status: mental status grossly normal <MARLENA Flores - Last Filed: 07/04/22 08:27> Affect: normal affect <Bellemaryan VillaMARLENA holder - Last Filed: 07/04/22 08:27> Attitude: cooperative <MARLENA Flores - Last Filed: 07/04/22 08:27> Thought process: Normal thought process present <Belle MckeonMARLENA holder - Last Filed: 07/04/22 08:27> Thought content: Normal thought content present <MARLENA Flores - Last Filed: 07/04/22 08:27> Insight: Good insight present (Psych) <MARLENA Flores - Last Filed: 07/04/22 08:27> Course Course Course Narrative: RmE: 51 yold female presents to the ED for right ear pain, sore throat, runny nose,, bodyaches, and coughs. patient states her grandson was sick. SARS and strep ordered <MARLENA Jimenez - Last Filed: 07/03/22 19:44> Medical Decision Making Medical Decision Making MDM Narrative: Patient is a 51 year old assigned female at with a history of JOHN presenting to the emergency department today with a cough and ear pain. Patient's physical exam was unremarkable. Patient's COVID/RSV/Influenza swab was negative. I explained my physical exam findings as well as all test results to the patient. I answered all questions asked by the patient. I stressed the importance of the patient taking her medication as prescribed. I stressed the importance of the patient following up with her primary care provider. I stressed the importance of the patient returning to the emergency department immediately if her symptoms were to worsen or if she were to develop any dizziness, shortness of breath, difficulty breathing, chest pain, blurry vision, loss of vision, nausea, vomiting, abdominal pain, fever, chills, back pain, or any other complaints. Patient verbalized agreement and understanding with this treatment plan and discharge. <MARLENA Flores - Last Filed: 07/04/22 08:27> Differential Diagnosis Differential Diagnoses: The differential diagnosis associated with the presentation includes <MARLENA Flores Last Filed: 07/04/22 08:27> viral illness, COVID-19, influenza <MARLENA Flores Last Filed: 07/04/22 08:27> Lab Data MDM Lab Attestation statement: I reviewed the patient's lab results. <MARLENA Flores Last Filed: 07/04/22 08:27> Labs: Lab Results 07/03/22 07/03/22 Range/Units 15:59 15:59 Influenza Type A (PCR) NEGATIVE (Negative) Influenza Type B (PCR) NEGATIVE (Negative) RSV RNA Qual (PCR) NEGATIVE (Negative) SARS-CoV-2 RNA (RT-PCR) NEGATIVE (Negative) S. pyogenes GrpA DANTE Negative (Negative) <MARLENA Jimenez Last Filed: 07/03/22 19:44> Lab Results 07/03/22 07/03/22 Range/Units 15:59 15:59 Influenza Type A (PCR) NEGATIVE (Negative) Influenza Type B (PCR) NEGATIVE (Negative) RSV RNA Qual (PCR) NEGATIVE (Negative) SARS-CoV-2 RNA (RT-PCR) NEGATIVE (Negative) S. pyogenes GrpA DANTE Negative (Negative) <MARLENA Flores Last Filed: 07/04/22 08:27> Discharge Plan Discharge Clinical Impression: Viral illness <MARLENA Jimenez Last Filed: 07/03/22 19:44> Patient Disposition: Home, Self-Care <MARLENA Jimenez Filed: 07/03/22 19:44> Instructions: Viral Syndrome (ED) <MARLENA Jimenez - Last Filed: 07/03/22 19:44> Additional Instructions: Follow up with your primary care provider. Return to the emergency department immediately if your symptoms worsen or if you develop any dizziness, shortness of breath, difficulty breathing, chest pain, blurry vision, loss of vision, nausea, vomiting, abdominal pain, fever, chills, back pain, or any other complaints. Yael un seguimiento con lopez proveedor de atenci?n primaria. Regrese al departamento de emergencias de inmediato si ron s?ntomas empeoran o si presenta mareos, falta de aire, dificultad para respirar, dolor de pecho, visi?n borrosa, p?rdida de la visi?n, n?useas, v?mitos, dolor abdominal, fiebre, escalofr?os, dolor de espalda o cualquier otras quejas. <MARLENA Jimenez - Last Filed: 07/03/22 19:44> Prescriptions: No Action albuterol sulfate 90 mcg/actuation HFA aerosol inhaler 2 puff PO Q4H PRN (Reason: bronchospasm) 30 Days Qty: 8.5 6RF hydrochlorothiazide 25 mg tablet 25 mg PO DAILY 30 Days Qty: 30 11RF atvvmksfxi-fppgcqspmdvlg-ewys 50-325-40 mg tablet 1 tab PO ONCE PRN (Reason: pain) 30 Days Qty: 30 0RF duloxetine 20 mg capsule,delayed release(DR/EC) 20 mg PO BID 30 Days Qty: 60 3RF cholecalciferol (vitamin D3) 50 mcg (2,000 unit) tablet 50 mcg PO DAILY 90 Days Qty: 90 1RF clonazepam 0.5 mg tablet 0.5 mg PO BEDTIME PRN (Reason: anxiety) 30 Days Qty: 60 0RF loratadine 10 mg tablet 10 mg PO DAILY PRN (Reason: for allergies) 30 Days Qty: 30 1RF Combivent Respimat 20-100 mcg/actuation mist 1 puff PO QID 30 Days Qty: 25 1RF Label Comments: Pulmo given fluticasone propionate [Flonase Allergy Relief] 50 mcg/actuation spray,suspension 2 spray intranasal Q12H 30 Days Qty: 16 0RF Rx Instructions: administer into each nostril amoxicillin 500 mg tablet 500 mg PO BID 7 Days Qty: 14 0RF tramadol 50 mg tablet 50 mg PO BID PRN (Reason: severe pain (scale score 7-10)) 30 Days Qty: 60 0RF cyclobenzaprine 10 mg tablet 10 mg PO Q8H Qty: 20 0RF (DME) blood pressure monitor [Blood Pressure Kit] Kit See Rx Instructions .ROUTE .MEDSUPPLY Qty: 1 0RF Rx Instructions: As directed fenofibrate 54 mg tablet 54 mg PO DAILY 90 Days Qty: 90 1RF fluconazole [Diflucan] 150 mg tablet 150 mg PO Q3D Qty: 2 0RF <MARLENA Jimenez - Last Filed: 07/03/22 19:44> Referrals: Neyda Foster MD [Primary Care Provider] - <MARLENA Jimenez - Last Filed: 07/03/22 19:44> Stand Alone Forms: Work/School Release <MARLENA Jimenez - Last Filed: 07/03/22 19:44> Interventions: ED Discharge Assessment Last Done: 07/03/22 17:11 <MARLENA Jimenez - Last Filed: 07/03/22 19:44> Discharge Date/Time: 07/03/22 17:20 <MARLENA Jimenez - Last Filed: 07/03/22 19:44> Print Language: Honduran <MARLENA Jimenez - Last Filed: 07/03/22 19:44>
[2022-07-03 16:15] LABS: IDNOW Serial# 6674DD1D; Strep A Nucleic Acid Negative (Negative)
[2022-07-03 16:56] LABS: Influenza A PCR NEGATIVE (Negative); Influenza B PCR NEGATIVE (Negative); Resp Syncy Virus RNA Qual PCR NEGATIVE (Negative); SARS COV2 PCR INHOUSE NEGATIVE (Negative)
== END 2022-07-03 17:20 | disposition home or self-care (01) ==
PROVIDERS: Physician Assistant; Emergency Provider Emergency Medicine Emergency Medical Services; PCP Internal Medicine
DX: B34.9 Viral infection, unspecified (principal); J02.9 Acute pharyngitis, unspecified; Z20.822 Contact with and (suspected) exposure to COVID-19; Z20.828 Contact with and (suspected) exposure to other viral communicable diseases
CPT/HCPCS: 0241U; 36415; 87651; 99282; 99283

== ENCOUNTER 2022-07-24 14:12 | Emergency (ER) | payer OTHER, SELFPAY ==
--- NOTE | ~2022-07-24 | XR_ITS ---
EXAMINATION: XR CHEST CLINICAL INFORMATION: Chest pain COMPARISON: Multiple prior chest x-rays most recently Chest x-ray 05/07/2022 TECHNIQUE: Frontal view of the chest was obtained. FINDINGS: Unchanged 4 mm rounded high density nodule consistent with calcified granuloma projecting over the peripheral right midlung. Lungs otherwise appear clear. No airspace consolidation, pleural effusion, or pneumothorax. The cardiomediastinal silhouette and pulmonary vascularity are within normal limits. No acute osseous injury is identified. XR/XR chest 1V IMPRESSION: No acute pulmonary process.
--- NOTE | 2022-07-24 15:46 | ECG_ITS ---
Test Reason : CHEST PAIN Blood Pressure : / mmHG Vent. Rate : 085 BPM Atrial Rate : 085 BPM P-R Int : 140 ms QRS Dur : 072 ms QT Int : 370 ms P-R-T Axes : 072 030 -03 degrees QTc Int : 440 ms Normal sinus rhythm Nonspecific ST and T wave abnormality Abnormal ECG When compared with ECG of 07-MAY-2022 11:41, No significant change was found Referred By: Miller Villalta Electronically Signed By:MARILU MANN MD
[2022-07-24 15:49] VITALS: BP 140/88; PULSE 91; RESP 18; TEMP 36.8; O2SAT 98; BMI 31.2
--- NOTE | 2022-07-24 15:50 | ED.GENADULT ---
HPI - General Adult General Chief complaint: Chest Pain <MARLENA Jimenez - Last Filed: 07/24/22 19:46> Stated complaint: Dizziness/Chest pain/Anxious <MARLENA Jimenez - Last Filed: 07/24/22 19:46> Time Seen by Provider: 07/24/22 18:45 <MARLENA Jimenez - Last Filed: 07/24/22 19:46> Source: patient <Jose Miguel Ramirez MD - Last Filed: 07/24/22 18:57> Mode of arrival: ambulatory <Jose Miguel Ramirez MD - Last Filed: 07/24/22 18:57> Limitations: no limitations <Jose Miguel Ramirez MD - Last Filed: 07/24/22 18:57> History of Present Illness HPI narrative: 51-year-old female with history of hypertension presents with a constellation of complaints including chest pain, dizziness and left ear pain. Symptoms started approximately 5 days ago. Describes symptoms as moderate in nature. Regarding the chest pain, is right above the sternal area. It comes and goes. The pain lasts for about 10 minutes in the scribed is sharp in nature. The pain does not radiate. It can be associated with congestion and some shortness of breath. She denies any recent immobilization or surgery or travel. She denies any lower extremity edema. Additionally, patient complains of dizziness. She has a sensation of movement. Worse in the morningseems to go away over the course the day. She denies any significant headaches, vision changes or any focal neurologic deficits. Finally over the same 5 day. She complains of left ear pain but no discharge. She denies any changes of hearing. <Jose Miguel Ramirez MD - Last Filed: 07/24/22 18:57> Related Data Home medications: Previous Rx's Medication Instructions Recorded albuterol sulfate 90 mcg/actuation 2 puff PO Q4H PRN bronchospasm 30 05/24/21 aerosol inhaler days #8.5 grams hydrochlorothiazide 25 mg tablet 25 mg PO DAILY 30 days #30 tabs 11/28/21 lyqavwjqms-kndnnzbqcdgpx-miuvkmso 1 tab PO ONCE PRN pain 30 days #30 02/15/22 50 mg-325 mg-40 mg tablet tabs blood pressure monitor (Blood #1 ea 04/26/22 Pressure Kit) duloxetine 20 mg capsule,delayed 20 mg PO BID 30 days #60 caps 05/16/22 release cholecalciferol (vitamin D3) 50 50 mcg PO DAILY 90 days #90 tabs 05/17/22 mcg (2,000 unit) tablet cyclobenzaprine 10 mg tablet 10 mg PO Q8H #20 tabs 05/18/22 clonazepam 0.5 mg tablet 0.5 mg PO BEDTIME PRN anxiety 30 05/26/22 days #60 tabs fenofibrate 54 mg tablet 54 mg PO DAILY 90 days #90 tabs 06/20/22 fluconazole 150 mg tablet 150 mg PO Q3D 2 doses #2 tabs 06/20/22 (Diflucan) ipratropium 20 mcg-albuterol 100 1 puff PO QID 30 days #25 mL 06/29/22 mcg/actuation mist for inhalation (Combivent Respimat) loratadine 10 mg tablet 10 mg PO DAILY PRN for allergies 06/29/22 30 days #30 tabs amoxicillin 500 mg tablet 500 mg PO BID 7 days #14 tabs 06/30/22 tramadol 50 mg tablet 50 mg PO BID PRN severe pain 07/01/22 (scale score 7-10) 30 days #60 tabs fluticasone propionate 50 2 spray intranasal Q12H 30 days 07/07/22 mcg/actuation nasal #16 grams spray,suspension (Flonase Allergy Relief) <MARLENA Jimenez - Last Filed: 07/24/22 19:46> Allergies/adverse reactions: Allergies Allergy/AdvReac Type Severity Reaction Status Date / Time amitriptyline Allergy Intermediate headache Verified 06/20/22 17:03 ibuprofen [From Motrin] Allergy Intermediate ITCHY RASH Verified 06/20/22 17:03 gabapentin AdvReac Intermediate vomiting Verified 06/20/22 17:03 <MARLENA Jimenez - Last Filed: 07/24/22 19:46> Review of Systems Review of Systems: CONSTITUTIONAL: Denies weight loss, fever and chills. HEENT: Denies changes in vision and hearing, left ear pain. RESPIRATORY: + SOB no cough. CV: Denies palpitations + CP. GI: Denies abdominal pain, nausea, vomiting and diarrhea. : Denies dysuria and urinary frequency. MSK: Denies myalgia and joint pain. SKIN: Denies rash and pruritus. NEUROLOGICAL: Denies headache and syncope, + dizziness. PSYCHIATRIC: Denies recent changes in mood. Denies anxiety and depression. <Jose Miguel Ramirez MD - Last Filed: 07/24/22 18:57> Yes all other systems are reviewed and are negative <Jose Miguel aRmirez MD - Last Filed: 07/24/22 18:57> PMFSH Past Medical History Medical History: Medical History Acute maxillary sinusitis Anxiety Blurry vision Cervical cancer screening Depression Dyslipidemia Dyspnea Epigastric pain Essential hypertension Fibromyalgia GERD (gastroesophageal reflux disease) Goiter Hand pain Has daytime drowsiness Hospital discharge follow-up HTN (hypertension) Leg pain, bilateral Microscopic hematuria Migraine Moderate recurrent major depression Otitis externa Physical exam Pulmonary nodules Right lower quadrant pain Skin lesion Tobacco dependence <MARLENA Jimenez - Last Filed: 07/24/22 19:46> Surgical History: Surgical History H/O LEEP H/O tubal ligation History of breast lump/mass excision History of lithotripsy <MARLENA Jimenez - Last Filed: 07/24/22 19:46> Family History Family History: Family History Father Myocardial infarction Mother Lung cancer Brother Liver cancer Maternal Grandfather Stomach cancer Maternal Grandmother No problems noted. <MARLENA Jimenez - Last Filed: 07/24/22 19:46> Social History Social History: Social History Housing: Apartment Alcohol intake: never Patient Tobacco Use Status: Current someday Tobacco user Tobacco use type: Cigarette Cigarettes Per Day: 3 e-Cigarette/Vaping Use: Never Used Second Hand Smoke Exposure: No Advance Directives: No Advance Directives Information Provided: No service: No Current occupational status: disabled Gender identity: Female Cognitive needs: No Hearing needs: No Vision needs: No <MARLENA Jimenez - Last Filed: 07/24/22 19:46> Physical Exam ED Vital Signs: Vital Signs - 24 hr 07/24/22 15:49 Temperature 98.3 F Pulse Rate 91 Respiratory Rate 18 Blood Pressure 140/88 H Pulse Oximetry 98 Oxygen Delivery Method Room Air BMI result Body Mass Index 31.2 <MARLENA Jimenez - Last Filed: 07/24/22 19:46> Vital Signs - 24 hr 07/24/22 15:49 Temperature 98.3 F Pulse Rate 91 Respiratory Rate 18 Blood Pressure 140/88 H Pulse Oximetry 98 Oxygen Delivery Method Room Air BMI result Body Mass Index 31.2 GEN: Well developed, no acute distress, alert, oriented HEENT: Normocephalic, atraumatic, normal external ears, normal TM, nose appears normal, no oropharyngeal edema or exudates Eyes: Normal to appearance Neck: Supple, no lymphadenopathy Respiratory: Talks in complete sentences, no respiratory distress, clear to auscultation bilaterally Cardiovascular: Regular rate and rhythm, no murmurs rubs or gallops Abdomen: Soft, nontender, nondistended, no guarding, no rebound Back: No CVA tenderness, bilateral thoracic paraspinous tenderness Extremities: No clubbing cyanosis or edema Neurologic: No focal neurologic deficits, cranial nerves 2-12 intact, strength is 5/5 bilaterally, gait normal, no nystagmus Chest: tenderness to palpation bilaterally Skin: No rash <Jose Miguel Ramirez MD - Last Filed: 07/24/22 18:57> Course Course Course Narrative: RME: 51 yold female presents to the ED for chest pain with diziness, and right ear discomfort and also feeling anxious. patient states has history of ANxiety. patient denies any coughing, fever, chills, leg swelling, calf pain, or recent surgery. DUe to age will do cardiac evaluation and EKG <MARLENA Jimenez - Last Filed: 07/24/22 19:46> Reevaluation(s) Reevaluation #1: Patient's workup is complete. She has no significant change in her symptoms at this time. However, her chest pain is reproducible on examination. There is no nystagmus or focal neurologic deficits to suggest a central etiology of her vertigo. Most likely peripheral versus eustachian tube dysfunction. Regarding her chest pain, I doubt this is cardiac in nature. She has had her symptoms for 5 days in her troponin is negative. She has a nonischemic EKG. Her chest x-ray reveals no acute cardiopulmonary disease. He also has otalgia of the left ear but her tympanic membranes are clear. Doubt acute otitis media or externa. He could very well likely be eustachian tube dysfunction. She also reports having history of TMJ for which he is also having active issues. <Jose Miguel Ramirez MD - Last Filed: 07/24/22 18:57> Time: 18:51 <Jose Miguel Ramirez MD - Last Filed: 07/24/22 18:57> Medical Decision Making Medical Decision Making [facility] Narrative: Patient presents with a constellation of complaints including chest pain which is reproducible on examination, left ear pain in tympanic membrane is clear without evidence of acute otitis media and dizziness. She has no focal neurologic deficits to suggest central etiology. Most likely a peripheral vertigo. <Jose Miguel Ramirez MD - Last Filed: 07/24/22 18:57> Differential Diagnosis Differential Diagnoses: The differential diagnosis associated with the presentation includes (Chest pain: Atypical chest pain, musculoskeletal chest pain, pericarditis, myocardial infarction, costochondritis. Vertigo: Peripheral vertigo, BPPV, labyrinthitis, vestibular neuritis, doubt central) <Jose Miguel Ramirez MD - Last Filed: 07/24/22 18:57> Reproducible chest pain, dizziness, otalgia <Jose Miguel Ramirez MD - Last Filed: 07/24/22 18:57> Admission/Observation Consideration of admission/observation: Escalation of care including admission/observation considered <Jose Miguel Ramirez MD - Last Filed: 07/24/22 18:57> Lab Data [facility] Lab Attestation statement: I reviewed the patient's lab results. <Jose Miguel Ramirez MD - Last Filed: 07/24/22 18:57> Result Diagrams: 07/24/22 17:07 07/24/22 17:08 <MARLENA Jimenez - Last Filed: 07/24/22 19:46> Labs: Lab Results 07/24/22 07/24/22 07/24/22 Range/Units 17:07 17:07 17:07 WBC 7.9 (4.8-10.8) X10*3/uL RBC 4.69 (4.20-5.50) X10*6/uL Hgb 12.8 (12.0-16.0) g/dl Hct 39.2 (37.0-47.0) % MCV 83.6 (80.0-98.0) fL MCH 27.3 (27.0-33.0) pg MCHC 32.7 (31.0-35.0) g/dl RDW 13.6 (11.0-16.0) % Plt Count 292 (160-400) X10*3/uL MPV 9.8 (9.4-12.3) fL Immature Gran % (Auto) 0.3 (0.0-0.4) % Neut % (Auto) 57.1 (45-73) % Lymph % (Auto) 33.2 (20-40) % [place] % (Auto) 6.6 (2-11) % Eos % (Auto) 2.0 (0-4) % Baso % (Auto) 0.8 (0-2) % Lymph # (Auto) 2.6 (1.2-4.9) X10*3/uL [place] # (Auto) 0.5 (0.1-1.2) X10*3/uL Eos # (Auto) 0.2 (0.0-0.4) X10*3/uL Baso # (Auto) 0.1 (0.0-0.2) X10*3/uL Abs Immat Gran (auto) 0.02 (0.00-0.03) X10*3/uL Absolute Neuts (auto) 4.5 (2.0-8.3) x10*3/uL Absolute Nucleated RBC 0.000 (0.0-0.012) X10*3/uL Nucleated RBC % (auto) 0.0 (0.0-0.2) /100WBC PT 12.4 (10.0-13.1) SEC INR 1.1 (0.9-1.1) APTT 37.3 H (26.0-36.4) SEC Sodium (135-145) mmol/L Potassium (3.3-5.1) mmol/L Chloride (96-108) mmol/L Carbon Dioxide (22-29) mmol/L Anion Gap (12-20) BUN (9-16) mg/dL Creatinine (0.5-1.4) mg/dL Estim Creat Clear Calc Estimated GFR Random Glucose (60-115) mg/dL Calcium (8.4-10.2) mg/dL Total Bilirubin (0.0-1.0) mg/dL AST (5-31) U/L ALT (0-31) U/L Alkaline Phosphatase (39-117) U/L Troponin I High Sens < 3.5 (<3.5-17.0) ng/L B-Natriuretic Peptide (<100) pg/mL Total Protein (6.5-8.0) g/dL Albumin (3.5-5.0) g/dL Lipase (8-78) U/L 07/24/22 07/24/22 Range/Units 17:08 17:08 WBC (4.8-10.8) X10*3/uL RBC (4.20-5.50) X10*6/uL Hgb (12.0-16.0) g/dl Hct (37.0-47.0) % MCV (80.0-98.0) fL MCH (27.0-33.0) pg MCHC (31.0-35.0) g/dl RDW (11.0-16.0) % Plt Count (160-400) X10*3/uL MPV (9.4-12.3) fL Immature Gran % (Auto) (0.0-0.4) % Neut % (Auto) (45-73) % Lymph % (Auto) (20-40) % [place] % (Auto) (2-11) % Eos % (Auto) (0-4) % Baso % (Auto) (0-2) % Lymph # (Auto) (1.2-4.9) X10*3/uL [place] # (Auto) (0.1-1.2) X10*3/uL Eos # (Auto) (0.0-0.4) X10*3/uL Baso # (Auto) (0.0-0.2) X10*3/uL Abs Immat Gran (auto) (0.00-0.03) X10*3/uL Absolute Neuts (auto) (2.0-8.3) x10*3/uL Absolute Nucleated RBC (0.0-0.012) X10*3/uL Nucleated RBC % (auto) (0.0-0.2) /100WBC PT (10.0-13.1) SEC INR (0.9-1.1) APTT (26.0-36.4) SEC Sodium 141 (135-145) mmol/L Potassium 3.6 (3.3-5.1) mmol/L Chloride 101 (96-108) mmol/L Carbon Dioxide 32 H (22-29) mmol/L Anion Gap 12 (12-20) BUN 11 (9-16) mg/dL Creatinine 0.80 (0.5-1.4) mg/dL Estim Creat Clear Calc 72.3 Estimated GFR > 60 Random Glucose 89 (60-115) mg/dL Calcium 10.0 (8.4-10.2) mg/dL Total Bilirubin 0.5 (0.0-1.0) mg/dL AST 16 (5-31) U/L ALT 14 (0-31) U/L Alkaline Phosphatase 111 (39-117) U/L Troponin I High Sens (<3.5-17.0) ng/L B-Natriuretic Peptide < 10 (<100) pg/mL Total Protein 7.3 (6.5-8.0) g/dL Albumin 4.2 (3.5-5.0) g/dL Lipase 17 (8-78) U/L <MARLENA Jimenez - Last Filed: 07/24/22 19:46> Lab Results 07/24/22 07/24/22 07/24/22 Range/Units 17:07 17:07 17:07 WBC 7.9 (4.8-10.8) X10*3/uL RBC 4.69 (4.20-5.50) X10*6/uL Hgb 12.8 (12.0-16.0) g/dl Hct 39.2 (37.0-47.0) % MCV 83.6 (80.0-98.0) fL MCH 27.3 (27.0-33.0) pg MCHC 32.7 (31.0-35.0) g/dl RDW 13.6 (11.0-16.0) % Plt Count 292 (160-400) X10*3/uL MPV 9.8 (9.4-12.3) fL Immature Gran % (Auto) 0.3 (0.0-0.4) % Neut % (Auto) 57.1 (45-73) % Lymph % (Auto) 33.2 (20-40) % [place] % (Auto) 6.6 (2-11) % Eos % (Auto) 2.0 (0-4) % Baso % (Auto) 0.8 (0-2) % Lymph # (Auto) 2.6 (1.2-4.9) X10*3/uL [place] # (Auto) 0.5 (0.1-1.2) X10*3/uL Eos # (Auto) 0.2 (0.0-0.4) X10*3/uL Baso # (Auto) 0.1 (0.0-0.2) X10*3/uL Abs Immat Gran (auto) 0.02 (0.00-0.03) X10*3/uL Absolute Neuts (auto) 4.5 (2.0-8.3) x10*3/uL Absolute Nucleated RBC 0.000 (0.0-0.012) X10*3/uL Nucleated RBC % (auto) 0.0 (0.0-0.2) /100WBC PT 12.4 (10.0-13.1) SEC INR 1.1 (0.9-1.1) APTT 37.3 H (26.0-36.4) SEC Sodium (135-145) mmol/L Potassium (3.3-5.1) mmol/L Chloride (96-108) mmol/L Carbon Dioxide (22-29) mmol/L Anion Gap (12-20) BUN (9-16) mg/dL Creatinine (0.5-1.4) mg/dL Estim Creat Clear Calc Estimated GFR Random Glucose (60-115) mg/dL Calcium (8.4-10.2) mg/dL Total Bilirubin (0.0-1.0) mg/dL AST (5-31) U/L ALT (0-31) U/L Alkaline Phosphatase (39-117) U/L Troponin I High Sens < 3.5 (<3.5-17.0) ng/L B-Natriuretic Peptide (<100) pg/mL Total Protein (6.5-8.0) g/dL Albumin (3.5-5.0) g/dL Lipase (8-78) U/L 07/24/22 07/24/22 Range/Units 17:08 17:08 WBC (4.8-10.8) X10*3/uL RBC (4.20-5.50) X10*6/uL Hgb (12.0-16.0) g/dl Hct (37.0-47.0) % MCV (80.0-98.0) fL MCH (27.0-33.0) pg MCHC (31.0-35.0) g/dl RDW (11.0-16.0) % Plt Count (160-400) X10*3/uL MPV (9.4-12.3) fL Immature Gran % (Auto) (0.0-0.4) % Neut % (Auto) (45-73) % Lymph % (Auto) (20-40) % [place] % (Auto) (2-11) % Eos % (Auto) (0-4) % Baso % (Auto) (0-2) % Lymph # (Auto) (1.2-4.9) X10*3/uL [place] # (Auto) (0.1-1.2) X10*3/uL Eos # (Auto) (0.0-0.4) X10*3/uL Baso # (Auto) (0.0-0.2) X10*3/uL Abs Immat Gran (auto) (0.00-0.03) X10*3/uL Absolute Neuts (auto) (2.0-8.3) x10*3/uL Absolute Nucleated RBC (0.0-0.012) X10*3/uL Nucleated RBC % (auto) (0.0-0.2) /100WBC PT (10.0-13.1) SEC INR (0.9-1.1) APTT (26.0-36.4) SEC Sodium 141 (135-145) mmol/L Potassium 3.6 (3.3-5.1) mmol/L Chloride 101 (96-108) mmol/L Carbon Dioxide 32 H (22-29) mmol/L Anion Gap 12 (12-20) BUN 11 (9-16) mg/dL Creatinine 0.80 (0.5-1.4) mg/dL Estim Creat Clear Calc 72.3 Estimated GFR > 60 Random Glucose 89 (60-115) mg/dL Calcium 10.0 (8.4-10.2) mg/dL Total Bilirubin 0.5 (0.0-1.0) mg/dL AST 16 (5-31) U/L ALT 14 (0-31) U/L Alkaline Phosphatase 111 (39-117) U/L Troponin I High Sens (<3.5-17.0) ng/L B-Natriuretic Peptide < 10 (<100) pg/mL Total Protein 7.3 (6.5-8.0) g/dL Albumin 4.2 (3.5-5.0) g/dL Lipase 17 (8-78) U/L <Jose Miguel Ramirez MD - Last Filed: 07/24/22 18:57> Independent Interpretation I performed an independent interpretation of an: EKG (Normal sinus rhythm heart rate 85, normal intervals, no acute ST elevations or depressions, diffuse nonspecific T-wave changes) and Plain X-Ray (No acute cardiopulmonary disease) <Jose Miguel Ramirez MD - Last Filed: 07/24/22 18:57> External Record Review External record reviewed: Office record (ENT note 03/03/2022 primary care note from June 20, 2022) <Jose Miguel Ramirez MD - Last Filed: 07/24/22 18:57> Tests considered The following testing was considered but not selected: CT scan head, CT scan chest <Jose Miguel Ramirez MD - Last Filed: 07/24/22 18:57> Prescription Management I considered prescription management with: Pain Medication <Jose Miguel Ramirez MD - Last Filed: 07/24/22 18:57> Chronic Conditions Patient?s care impacted by: Hypertension <Jose Miguel Ramirez MD - Last Filed: 07/24/22 18:57> Discharge Plan Discharge Clinical Impression: Acute chest wall pain, Dizziness, Otalgia of left ear <MARLENA Jimenez - Last Filed: 07/24/22 19:46> Patient Disposition: Home, Self-Care <MARLENA Jimenez - Last Filed: 07/24/22 19:46> Instructions: Chest Pain (DC), Earache (ED), Dizziness (ED), Chest Wall Pain (ED) <MARLENA Jimenez - Last Filed: 07/24/22 19:46> Prescriptions: No Action albuterol sulfate 90 mcg/actuation HFA aerosol inhaler 2 puff PO Q4H PRN (Reason: bronchospasm) 30 Days Qty: 8.5 6RF hydrochlorothiazide 25 mg tablet 25 mg PO DAILY 30 Days Qty: 30 11RF qyzwlaeyqd-xlyvybatrnjor-jpda 50-325-40 mg tablet 1 tab PO ONCE PRN (Reason: pain) 30 Days Qty: 30 0RF duloxetine 20 mg capsule,delayed release(DR/EC) 20 mg PO BID 30 Days Qty: 60 3RF cholecalciferol (vitamin D3) 50 mcg (2,000 unit) tablet 50 mcg PO DAILY 90 Days Qty: 90 1RF clonazepam 0.5 mg tablet 0.5 mg PO BEDTIME PRN (Reason: anxiety) 30 Days Qty: 60 0RF loratadine 10 mg tablet 10 mg PO DAILY PRN (Reason: for allergies) 30 Days Qty: 30 1RF Combivent Respimat 20-100 mcg/actuation mist 1 puff PO QID 30 Days Qty: 25 1RF Label Comments: Pulmo given amoxicillin 500 mg tablet 500 mg PO BID 7 Days Qty: 14 0RF tramadol 50 mg tablet 50 mg PO BID PRN (Reason: severe pain (scale score 7-10)) 30 Days Qty: 60 0RF fluticasone propionate [Flonase Allergy Relief] 50 mcg/actuation spray,suspension 2 spray intranasal Q12H 30 Days Qty: 16 0RF Rx Instructions: administer into each nostril cyclobenzaprine 10 mg tablet 10 mg PO Q8H Qty: 20 0RF (DME) blood pressure monitor [Blood Pressure Kit] Kit See Rx Instructions .ROUTE .MEDSUPPLY Qty: 1 0RF Rx Instructions: As directed fenofibrate 54 mg tablet 54 mg PO DAILY 90 Days Qty: 90 1RF fluconazole [Diflucan] 150 mg tablet 150 mg PO Q3D Qty: 2 0RF <MARLENA Jimenez - Last Filed: 07/24/22 19:46> Interventions: ED Discharge Assessment Last Done: 07/24/22 19:34 <MARLENA Jimenez - Last Filed: 07/24/22 19:46> Discharge Date/Time: 07/24/22 19:34 <MARLENA Jimenez - Last Filed: 07/24/22 19:46> Print Language: [place] <MARLENA Jimenez - Last Filed: 07/24/22 19:46>
[2022-07-24 17:16] LABS: MANUAL DIFF FLAG NO
[2022-07-24 17:17] LABS: Basophils Absolute Auto 0.1 X10*3/uL (0.0-0.2); Basophils Percent Auto 0.8 % (0-2); Eosinophils Absolute Auto 0.2 X10*3/uL (0.0-0.4); Hematocrit 39.2 % (37.0-47.0); Hemoglobin 12.8 g/dl (12.0-16.0); Imm Gran Abs Auto 0.02 X10*3/uL (0.00-0.03); Imm Gran Pct Auto 0.3 % (0.0-0.4); Lymphocytes Absolute Auto 2.6 X10*3/uL (1.2-4.9); Lymphocytes Percent Auto 33.2 % (20-40); Mean Corpuscular HGB Conc 32.7 g/dl (31.0-35.0); Mean Corpuscular Hemoglobin 27.3 pg (27.0-33.0); Mean Corpuscular Volume 83.6 fL (80.0-98.0); Mean Platelet Volume 9.8 fL (9.4-12.3); Monocytes Absolute Auto 0.5 X10*3/uL (0.1-1.2); Monocytes Percent Auto 6.6 % (2-11); Neutrophils Absolute Auto 4.5 x10*3/uL (2.0-8.3); Neutrophils Percent Auto 57.1 % (45-73); Platelet Count 292 X10*3/uL (160-400); Red Blood Count 4.69 X10*6/uL (4.20-5.50); Red Cell Distribution Width 13.6 % (11.0-16.0); White Blood Count 7.9 X10*3/uL (4.8-10.8)
[2022-07-24 17:24] LABS: INTERNATIONAL NORM RATIO 1.1 (0.9-1.1); Prothrombin Time 12.4 SEC (10.0-13.1)
[2022-07-24 17:27] LABS: Partial Thromboplastin Time 37.3 SEC (26.0-36.4)
[2022-07-24 17:36] LABS: Alanine Aminotransferase 14 U/L (0-31); Albumin Level 4.2 g/dL (3.5-5.0); Alkaline Phosphatase 111 U/L (39-117); Anion Gap 12 (12-20); Aspartate Amino Transferase 16 U/L (5-31); Bilirubin Total 0.5 mg/dL (0.0-1.0); Blood Urea Nitrogen 11 mg/dL (9-16); Carbon Dioxide 32 mmol/L (22-29); Chloride 101 mmol/L (96-108); Creatinine Clr Calc Pharmacy 72.3; Estimated Glomerular Filt Rate > 60; Glucose Random 89 mg/dL (60-115); Lipase 17 U/L (8-78); Potassium 3.6 mmol/L (3.3-5.1); Sodium 141 mmol/L (135-145); Total Protein 7.3 g/dL (6.5-8.0)
[2022-07-24 17:41] LABS: B Type Natriuretic Peptide < 10 pg/mL (<100)
[2022-07-24 17:44] LABS: Troponin-I High Sensitivity < 3.5 ng/L (<3.5-17.0)
== END 2022-07-24 19:34 | disposition home or self-care (01) ==
PROVIDERS: Physician Assistant; Emergency Provider Emergency Medicine; PCP Internal Medicine
DX: R07.89 Other chest pain (principal); R42 Dizziness and giddiness; H92.02 Otalgia, left ear; R06.02 Shortness of breath; I10 Essential (primary) hypertension; E78.5 Hyperlipidemia, unspecified; F17.210 Nicotine dependence, cigarettes, uncomplicated; Z79.899 Other long term (current) drug therapy
CPT/HCPCS: 36415; 71045; 80053; 83690; 83880; 84484; 85025; 85610; 85730; 93005; 99283

== ENCOUNTER 2022-08-14 10:28 | Emergency (ER) | payer OTHER, SELFPAY ==
[2022-08-14 10:31] VITALS: BP 138/99; PULSE 105; RESP 16; TEMP 37.1; O2SAT 96; BMI 31.2
[2022-08-14 10:56] LABS: MANUAL DIFF FLAG NO
[2022-08-14 10:59] LABS: Basophils Percent Auto 0.4 % (0-2); Eosinophils Absolute Auto 0.1 X10*3/uL (0.0-0.4); Eosinophils Percent Auto 1.8 % (0-4); Hematocrit 37.6 % (37.0-47.0); Hemoglobin 12.3 g/dl (12.0-16.0); Imm Gran Abs Auto 0.02 X10*3/uL (0.00-0.03); Imm Gran Pct Auto 0.3 % (0.0-0.4); Lymphocytes Absolute Auto 2.3 X10*3/uL (1.2-4.9); Mean Corpuscular HGB Conc 32.7 g/dl (31.0-35.0); Mean Corpuscular Hemoglobin 26.9 pg (27.0-33.0); Mean Corpuscular Volume 82.3 fL (80.0-98.0); Mean Platelet Volume 10.2 fL (9.4-12.3); Monocytes Absolute Auto 0.5 X10*3/uL (0.1-1.2); Neutrophils Absolute Auto 3.8 x10*3/uL (2.0-8.3); Neutrophils Percent Auto 55.5 % (45-73); Platelet Count 271 X10*3/uL (160-400); Red Blood Count 4.57 X10*6/uL (4.20-5.50); Red Cell Distribution Width 13.7 % (11.0-16.0); White Blood Count 6.8 X10*3/uL (4.8-10.8)
[2022-08-14 11:21] LABS: Anion Gap 12 (12-20); Blood Urea Nitrogen 12 mg/dL (9-16); Calcium 9.2 mg/dL (8.4-10.2); Carbon Dioxide 30 mmol/L (22-29); Chloride 104 mmol/L (96-108); Creatinine Clr Calc Pharmacy 71.4; Estimated Glomerular Filt Rate > 60; Glucose Random 87 mg/dL (60-115); Potassium 3.4 mmol/L (3.3-5.1); Sodium 143 mmol/L (135-145)
[2022-08-14 11:35] LABS: Influenza A PCR NEGATIVE (Negative); Influenza B PCR NEGATIVE (Negative); Resp Syncy Virus RNA Qual PCR NEGATIVE (Negative); SARS COV2 PCR INHOUSE NEGATIVE (Negative)
--- NOTE | 2022-08-14 12:00 | ED.URI ---
HPI - URI/Sore Throat General Chief Complaint: General Medical Stated Complaint: ear head pain facial swelling Time Seen by Provider: 08/14/22 10:45 Source: patient Mode of arrival: ambulatory Limitations: language barrier (Yi-speaking) History of Present Illness HPI Narrative: 51-year-old female with a past medical history of anxiety, asthma, hyperlipidemia, hypertension, fibromyalgia who is presenting to the ER with complaints of intermittent headaches, sinus pressure pain, swelling to her face behind her sinuses, ear pain and moderate amount of nasal congestion/rhinorrhea for approximately 1 week worse today. Reports she was seen here in the past and diagnosed with a sinus infection and given antibiotics and steroids and it helped her significantly. She denies any measured fevers, dizziness, neck pain/stiffness, sore throat, trouble swallowing or breathing, cough, sputum production, chest pain or shortness of breath, paresthesias, nausea/vomiting/diarrhea abdominal pain, rashes, recent falls or trauma, CO2 exposure, recent tick bites, others with similar symptoms, recent spinal procedure or any other symptoms complaints or concerns at this time. MD elicited complaint: rhinorrhea, nasal congestion, sinus pain and other (And headache) Onset (ago): week(s) (1) Consistency: constant and progressively worsening Severity: moderate Description of mucous: clear, watery, yellow and green Able to tolerate fluids by mouth: Yes Exacerbating factors: changing head position and leaning forward Relieving factors: nothing Associated symptoms: chills, headache, rhinorrhea, nasal congestion and ear pain Treatments prior to arrival: none Related Data Previous Rx's Medication Instructions Recorded albuterol sulfate 90 mcg/actuation 2 puff PO Q4H PRN bronchospasm 30 05/24/21 aerosol inhaler days #8.5 grams hydrochlorothiazide 25 mg tablet 25 mg PO DAILY 30 days #30 tabs 11/28/21 swssjbxcay-gscemibgvsgoj-salweegu 1 tab PO ONCE PRN pain 30 days #30 02/15/22 50 mg-325 mg-40 mg tablet tabs blood pressure monitor (Blood #1 ea 04/26/22 Pressure Kit) duloxetine 20 mg capsule,delayed 20 mg PO BID 30 days #60 caps 05/16/22 release cholecalciferol (vitamin D3) 50 50 mcg PO DAILY 90 days #90 tabs 05/17/22 mcg (2,000 unit) tablet fenofibrate 54 mg tablet 54 mg PO DAILY 90 days #90 tabs 06/20/22 fluconazole 150 mg tablet 150 mg PO Q3D 2 doses #2 tabs 06/20/22 (Diflucan) ipratropium 20 mcg-albuterol 100 1 puff PO QID 30 days #25 mL 06/29/22 mcg/actuation mist for inhalation (Combivent Respimat) loratadine 10 mg tablet 10 mg PO DAILY PRN for allergies 06/29/22 30 days #30 tabs amoxicillin 500 mg tablet 500 mg PO BID 7 days #14 tabs 06/30/22 fluticasone propionate 50 2 spray intranasal Q12H 30 days 07/07/22 mcg/actuation nasal #16 grams spray,suspension (Flonase Allergy Relief) clonazepam 0.5 mg tablet 0.5 mg PO BEDTIME PRN anxiety 30 07/25/22 days #60 tabs tramadol 50 mg tablet 50 mg PO BID PRN severe pain 07/31/22 (scale score 7-10) 30 days #60 tabs cyclobenzaprine 10 mg tablet 10 mg PO Q8H #20 tabs 08/04/22 amoxicillin 875 mg-potassium 1 tab PO BID 7 days #14 tabs 08/14/22 clavulanate 125 mg tablet iflekgxpgj-vioyoxhhxathr-kqkvqlkl 1 cap PO Q8H PRN pain #10 caps 08/14/22 50 mg-300 mg-40 mg capsule (Fioricet) prednisone 20 mg tablet 40 mg PO DAILY inflammation 5 days 08/14/22 #10 tabs Allergies Allergy/AdvReac Type Severity Reaction Status Date / Time amitriptyline Allergy Intermediate headache Verified 06/20/22 17:03 ibuprofen [From Motrin] Allergy Intermediate ITCHY RASH Verified 06/20/22 17:03 gabapentin AdvReac Intermediate vomiting Verified 06/20/22 17:03 Review of Systems Review of Systems: Constitutional : No Weight loss, No Fever, + Chills, No Night Sweats, No Fatigue, No Malaise ENT/Mouth : No Hearing loss, No Ear Pain, + Nasal Congestion, + Sinus Pain, No Hoarseness, No sore throat, + Rhinorrhea, No Swallowing Difficulty Eyes: No Eye Pain, No Swelling, No Redness, No Foreign Body, No Discharge, No Vision Changes Cardiovascular : No Chest Pain, No SOB, No Dyspnea on Exertion, No Orthopnea, No Edema, No Palpitations Respiratory : No Cough, No Sputum, No Wheezing, No Smoke Exposure, No Dyspnea Gastrointestinal : No Nausea, No Vomiting, No Diarrhea, No Constipation, No abdominal Pain, No Hematochezia, No Melena Genitourinary : no irregular bleeding, No Dysuria, No Urinary Frequency, No Hematuria, No Urinary Incontinence, No Urgency, No Flank Pain, No Urinary Flow Changes, No Hesitancy Musculoskeletal : No joint pain, No Myalgias, No Joint Swelling Skin : No Skin Lesions, No rash Neuro : No Weakness, No Numbness, No Paresthesias, No Loss of Consciousness, No Dizziness, + Headache Psych : No Anxiety/Panic, No Depression, No SI/HI/AH/VH, No Social Issues, Heme/Lymph: No Bruising, No Bleeding,No Lymphadenopathy Endocrine : No Polyuria, No Polydipsia, No Temperature Intolerance Yes all other systems are reviewed and are negative [facility] Past Medical History Attestation statement: The following information was validated with the patient. Source: old records reviewed and nursing notes reviewed Medical History Acute maxillary sinusitis Anxiety Blurry vision Cervical cancer screening Depression Dyslipidemia Dyspnea Epigastric pain Essential hypertension Fibromyalgia GERD (gastroesophageal reflux disease) Goiter Hand pain Has daytime drowsiness Hospital discharge follow-up HTN (hypertension) Leg pain, bilateral Microscopic hematuria Migraine Moderate recurrent major depression Otitis externa Physical exam Pulmonary nodules Right lower quadrant pain Skin lesion Tobacco dependence Surgical History H/O LEEP H/O tubal ligation History of breast lump/mass excision History of lithotripsy Family History Family History Father Myocardial infarction Mother Lung cancer Brother Liver cancer Maternal Grandfather Stomach cancer Maternal Grandmother No problems noted. Social History Social History Housing: Apartment Alcohol intake: never Patient Tobacco Use Status: Current someday Tobacco user Tobacco use type: Cigarette Cigarettes Per Day: 3 e-Cigarette/Vaping Use: Never Used Second Hand Smoke Exposure: No Advance Directives: No Advance Directives Information Provided: Yes service: No Current occupational status: disabled Gender identity: Female Cognitive needs: No Hearing needs: No Vision needs: No Physical Exam Vital Signs: Vital Signs: Last Vital Signs Temp 98.8 F 08/14/22 10:31 Pulse 105 H 08/14/22 10:31 Resp 16 08/14/22 10:31 BP 138/99 H 08/14/22 10:31 Pulse Ox 96 08/14/22 10:31 O2 Del Method 08/14/22 10:31 BMI result Body Mass Index 31.2 Vital signs reviewed. Blood pressure normal. Pulse normal. Respiration normal. Oxygen normal. Temperature normal. Appearance: Alert. Oriented X3. No acute distress. Head: Normal external exam. Normocephalic. Atraumatic. Eyes: PERRLA. EOMI. Conjunctiva and sclera normal. Eyelids normal. ENT: EAC normal. TM's Normal. Pharynx normal. Uvula midline. Moist mucous membranes. No lesions/ulcerations or masses noted on the tongue. Normal voice. No trismus noted. No drooling noted. No muffled voice noted. Patient with tenderness palpation over the sinuses. Neck: Normal inspection. Neck supple. FROM. No adenopathy. Thyroid Normal. No meningeal signs. CVS: Normal heart rate and rhythm. Heart sound normal. Pulses normal throughout. No murmurs/rales/gallops. Respiratory: No respiratory distress. Painless inspiration. Breath sounds normal. No wheezes/rales/rhonchi noted. Chest nontender. No accessory muscle usage noted or decreased air movement noted. Abdomen: Soft and nontender. Back: Full range of motion noted. Nontender. Skin: Skin warm and dry. Normal skin color. Normal skin turgor. No rashes/lesions/lacerations noted. Extremities: Extremities exhibit normal range of motion and nontender. Neuro: Oriented X 3. No motor deficit. No sensory deficit. Reflexes normal. Normal steady gait. No focal neuro deficits noted. CN's II-XII intact bilaterally? Vascular: + radial pulses. Normal cap refill. No cyanosis noted to upper extremity nails Course Course Course Narrative: 51-year-old female with a past medical history of anxiety, asthma, hyperlipidemia, hypertension, fibromyalgia who is presenting to the ER with complaints of intermittent headaches, sinus pressure pain, swelling to her face behind her sinuses, ear pain and moderate amount of nasal congestion/rhinorrhea for approximately 1 week worse today. Reports she was seen here in the past and diagnosed with a sinus infection and given antibiotics and steroids and it helped her significantly. Labs obtained due to they were ordered in triage in all labs within normal limits. Patient negative for COVID/RSV/flu. Patient had a CT scan in September of 2021. Therefore no new imaging indicated. Neck is soft nontender supple for range of motion no meningeal sign noted. Not consistent mastoiditis. Not consistent meningitis. Patient has a normal neuro exam. Normal steady gait. No recent head trauma to indicate imaging. Will DC home with antibiotics for sinus infection and symptomatic treatment instructions return if any new or worsening symptoms to follow up with primary care provider. Patient with family at bedside understand agree this plan. Medical Decision Making Lab Data MDM Lab Attestation statement: I reviewed the patient's lab results. 08/14/22 10:52 08/14/22 10:52 Labs: Lab Results 08/14/22 08/14/22 08/14/22 Range/Units 10:52 10:52 10:52 WBC 6.8 (4.8-10.8) X10*3/uL RBC 4.57 (4.20-5.50) X10*6/uL Hgb 12.3 (12.0-16.0) g/dl Hct 37.6 (37.0-47.0) % MCV 82.3 (80.0-98.0) fL MCH 26.9 L (27.0-33.0) pg MCHC 32.7 (31.0-35.0) g/dl RDW 13.7 (11.0-16.0) % Plt Count 271 (160-400) X10*3/uL MPV 10.2 (9.4-12.3) fL Immature Gran % (Auto) 0.3 (0.0-0.4) % Neut % (Auto) 55.5 (45-73) % Lymph % (Auto) 34.0 (20-40) % [place] % (Auto) 8.0 (2-11) % Eos % (Auto) 1.8 (0-4) % Baso % (Auto) 0.4 (0-2) % Lymph # (Auto) 2.3 (1.2-4.9) X10*3/uL [place] # (Auto) 0.5 (0.1-1.2) X10*3/uL Eos # (Auto) 0.1 (0.0-0.4) X10*3/uL Baso # (Auto) 0.0 (0.0-0.2) X10*3/uL Abs Immat Gran (auto) 0.02 (0.00-0.03) X10*3/uL Absolute Neuts (auto) 3.8 (2.0-8.3) x10*3/uL Absolute Nucleated RBC 0.000 (0.0-0.012) X10*3/uL Nucleated RBC % (auto) 0.0 (0.0-0.2) /100WBC Sodium 143 (135-145) mmol/L Potassium 3.4 (3.3-5.1) mmol/L Chloride 104 (96-108) mmol/L Carbon Dioxide 30 H (22-29) mmol/L Anion Gap 12 (12-20) BUN 12 (9-16) mg/dL Creatinine 0.81 (0.5-1.4) mg/dL Estim Creat Clear Calc 71.4 Estimated GFR > 60 Random Glucose 87 (60-115) mg/dL Calcium 9.2 D (8.4-10.2) mg/dL Influenza Type A (PCR) NEGATIVE (Negative) Influenza Type B (PCR) NEGATIVE (Negative) RSV RNA Qual (PCR) NEGATIVE (Negative) SARS-CoV-2 RNA (RT-PCR) NEGATIVE (Negative) Independent Historian Clinical information obtained from an independent historian. History obtained from or confirmed by: Friend External Record Review External record reviewed: Inpatient record, Office record, Outpatient record, Prior outpatient labs, Prior outpatient radiology, Primary care record and Outside ED record I reviewed all the records in our system Prescription Management I considered prescription management with: Pain Medication and Antibiotic Chronic Conditions Patient?s care impacted by: Hypertension Discharge Plan Discharge Clinical Impression: Sinusitis Patient Disposition: Home, Self-Care Instructions: Sinusitis (ED) Prescriptions: New amoxicillin-pot clavulanate 875-125 mg tablet 1 tab PO BID 7 Days Qty: 14 0RF prednisone 20 mg tablet 40 mg PO DAILY 5 Days Qty: 10 0RF kunagyzfsa-xrsmweqtwfnwe-zikz [Fioricet] 50-300-40 mg capsule 1 cap PO Q8H PRN (Reason: pain) Qty: 10 0RF No Action albuterol sulfate 90 mcg/actuation HFA aerosol inhaler 2 puff PO Q4H PRN (Reason: bronchospasm) 30 Days Qty: 8.5 6RF hydrochlorothiazide 25 mg tablet 25 mg PO DAILY 30 Days Qty: 30 11RF ptgussrnws-ywfkjmcpnuxux-ykbn 50-325-40 mg tablet 1 tab PO ONCE PRN (Reason: pain) 30 Days Qty: 30 0RF duloxetine 20 mg capsule,delayed release(DR/EC) 20 mg PO BID 30 Days Qty: 60 3RF cholecalciferol (vitamin D3) 50 mcg (2,000 unit) tablet 50 mcg PO DAILY 90 Days Qty: 90 1RF loratadine 10 mg tablet 10 mg PO DAILY PRN (Reason: for allergies) 30 Days Qty: 30 1RF Combivent Respimat 20-100 mcg/actuation mist 1 puff PO QID 30 Days Qty: 25 1RF Label Comments: Pulmo given amoxicillin 500 mg tablet 500 mg PO BID 7 Days Qty: 14 0RF fluticasone propionate [Flonase Allergy Relief] 50 mcg/actuation spray,suspension 2 spray intranasal Q12H 30 Days Qty: 16 0RF Rx Instructions: administer into each nostril clonazepam 0.5 mg tablet 0.5 mg PO BEDTIME PRN (Reason: anxiety) 30 Days Qty: 60 0RF tramadol 50 mg tablet 50 mg PO BID PRN (Reason: severe pain (scale score 7-10)) 30 Days Qty: 60 0RF cyclobenzaprine 10 mg tablet 10 mg PO Q8H Qty: 20 0RF (DME) blood pressure monitor [Blood Pressure Kit] Kit See Rx Instructions .ROUTE .MEDSUPPLY Qty: 1 0RF Rx Instructions: As directed fenofibrate 54 mg tablet 54 mg PO DAILY 90 Days Qty: 90 1RF fluconazole [Diflucan] 150 mg tablet 150 mg PO Q3D Qty: 2 0RF Referrals: Neyda Foster MD [Primary Care Provider] - 2 days Print Language: Yi
== END 2022-08-14 12:14 | disposition home or self-care (01) ==
PROVIDERS: Emergency Provider Emergency Medicine; PCP Internal Medicine
DX: J32.9 Chronic sinusitis, unspecified (principal); Z20.822 Contact with and (suspected) exposure to COVID-19; Z20.828 Contact with and (suspected) exposure to other viral communicable diseases; I10 Essential (primary) hypertension; E78.5 Hyperlipidemia, unspecified; F17.210 Nicotine dependence, cigarettes, uncomplicated; Z79.899 Other long term (current) drug therapy
CPT/HCPCS: 0241U; 36415; 80048; 85025; 99282; 99283

== ENCOUNTER 2022-10-07 16:23 | Emergency (ER) | payer OTHER, SELFPAY ==
--- NOTE | ~2022-10-07 | XR_ITS ---
EXAMINATION: XR CHEST CLINICAL INFORMATION: Cough COMPARISON: Previous chest x-ray July 2022 TECHNIQUE: 2 views of the chest were obtained. FINDINGS: The cardiac and mediastinal contours are normal. Stable 4 mm right upper lobe nodule. Lungs are otherwise clear. No pleural effusion or pneumothorax. Bony structures are normal. XR/XR chest 2V IMPRESSION: No evidence for acute disease in the chest.
[2022-10-07 16:29] VITALS: BP 138/92; PULSE 103; RESP 18; TEMP 36.2; O2SAT 96; BMI 30.8
--- NOTE | 2022-10-07 16:31 | ED_ITS ---
HPI - General Adult General Chief complaint: Upper Respiratory Symptoms <Ashu Azevedo - Last Filed: 10/07/22 16:32> Stated complaint: CP S-throat for 3 days, headache/ ear pain. fever <Ashu Azevedo - Last Filed: 10/07/22 16:32> Time Seen by Provider: 10/07/22 16:48 <Ashu Azevedo - Last Filed: 10/07/22 16:32> History of Present Illness HPI narrative: Patient complains of 3 days of body aches including chest wall worse with deep breath worse with cough worse with movement, shortness of breath typical of her asthma that is really leave with albuterol but then comes back later, no shortness of breath at this moment, the cough is productive of sputum and worse at night, there is runny nose and nasal congestion, there is no bands sore throat she is eating and drinking comfortably, no stiff neck, there is a mild headache that started intermittently and gradually associated with this illness, she does feel itchiness in her chest and back, there is no nausea vomiting or diarrhea no dysuria no skin rash <MARLENA Steel - Last Filed: 10/07/22 18:42> Related Data Home medications: Previous Rx's Medication Instructions Recorded albuterol sulfate 90 mcg/actuation 2 puff PO Q4H PRN bronchospasm 30 05/24/21 aerosol inhaler days #8.5 grams fajlcoumro-jxcchljgnjszw-yjflxafp 1 tab PO ONCE PRN pain 30 days #30 02/15/22 50 mg-325 mg-40 mg tablet tabs duloxetine 20 mg capsule,delayed 20 mg PO BID 30 days #60 caps 05/16/22 release cholecalciferol (vitamin D3) 50 50 mcg PO DAILY 90 days #90 tabs 05/17/22 mcg (2,000 unit) tablet fenofibrate 54 mg tablet 54 mg PO DAILY 90 days #90 tabs 06/20/22 fluconazole 150 mg tablet 150 mg PO Q3D 2 doses #2 tabs 06/20/22 (Diflucan) clonazepam 0.5 mg tablet 0.5 mg PO BEDTIME PRN anxiety 30 07/25/22 days #60 tabs pgrdhaeqph-eqznbnfpabfuh-brgedmoa 1 cap PO Q8H PRN pain #10 caps 08/14/22 50 mg-300 mg-40 mg capsule (Fioricet) ipratropium 20 mcg-albuterol 100 1 puff PO QID 30 days #25 mL 08/16/22 mcg/actuation mist for inhalation (Combivent Respimat) hydrochlorothiazide 25 mg tablet 25 mg PO DAILY 30 days #30 tabs 09/02/22 blood pressure monitor (Blood #1 ea 09/06/22 Pressure Kit) cane #1 ea 09/06/22 loratadine 10 mg tablet 10 mg PO DAILY PRN for allergies 09/14/22 30 days #30 tabs fluticasone propionate 50 2 spray intranasal Q12H 30 days 10/01/22 mcg/actuation nasal #16 grams spray,suspension (Flonase Allergy Relief) cyclobenzaprine 10 mg tablet 10 mg PO Q8H #20 tabs 10/02/22 tramadol 50 mg tablet 50 mg PO BID PRN severe pain 10/02/22 (scale score 7-10) 30 days #60 tabs acetaminophen 500 mg tablet 1,000 mg PO TID PRN pain #20 tabs 10/07/22 benzonatate 200 mg capsule 200 mg PO BID PRN cough #10 caps 10/07/22 doxycycline hyclate 100 mg capsule 100 mg PO BID 7 days #14 caps 10/07/22 prednisone 20 mg tablet 60 mg PO DAILY 3 days #9 tabs 10/07/22 <Ashu Azevedo - Last Filed: 10/07/22 16:32> Allergies/adverse reactions: Allergies Allergy/AdvReac Type Severity Reaction Status Date / Time amitriptyline Allergy Intermediate headache Verified 10/07/22 16:29 ibuprofen [From Motrin] Allergy Intermediate ITCHY RASH Verified 10/07/22 16:29 gabapentin AdvReac Intermediate vomiting Verified 10/07/22 16:29 <Ashu Azevedo - Last Filed: 10/07/22 16:32> COUNTS INCLUDE 234 BEDS AT THE [facility] Past Medical History Source: nursing notes reviewed <MARLENA Steel - Last Filed: 10/07/22 18:42> Medical History: Medical History (Updated 10/07/22 @ 18:37 by MARLENA Steel) Acute maxillary sinusitis Anxiety Blurry vision Cervical cancer screening Depression Dyslipidemia Dyspnea Epigastric pain Essential hypertension Fibromyalgia GERD (gastroesophageal reflux disease) Goiter Hand pain Has daytime drowsiness Hospital discharge follow-up HTN (hypertension) Leg pain, bilateral Microscopic hematuria Migraine Moderate recurrent major depression Otitis externa Physical exam Pulmonary nodules Right lower quadrant pain Skin lesion Tobacco dependence <Ashu Azevedo - Last Filed: 10/07/22 16:32> Surgical History: Surgical History H/O LEEP H/O tubal ligation History of breast lump/mass excision History of lithotripsy <Ashu Azevedo - Last Filed: 10/07/22 16:32> Family History Family History: Family History Father Myocardial infarction Mother Lung cancer Brother Liver cancer Maternal Grandfather Stomach cancer Maternal Grandmother No problems noted. <Ashu Azevedo - Last Filed: 10/07/22 16:32> Social History Social History: Social History Housing: Apartment Alcohol intake: never Patient Tobacco Use Status: Current someday Tobacco user Tobacco use type: Cigarette Cigarettes Per Day: 3 e-Cigarette/Vaping Use: Never Used Second Hand Smoke Exposure: No Advance Directives: No Advance Directives Information Provided: No service: No Current occupational status: disabled Gender identity: Female Cognitive needs: No Hearing needs: No Vision needs: No <Ashu Azevedo - Last Filed: 10/07/22 16:32> Physical Exam ED Vital Signs: Vital Signs - 24 hr 10/07/22 16:29 Temperature 97.1 F Pulse Rate 103 H Respiratory Rate 18 Blood Pressure 138/92 H Pulse Oximetry 96 Oxygen Delivery Method Room Air BMI result Body Mass Index 30.8 <Ashu Azevedo - Last Filed: 10/07/22 16:32> Vital Signs - 24 hr 10/07/22 16:29 Temperature 97.1 F Pulse Rate 103 H Respiratory Rate 18 Blood Pressure 138/92 H Pulse Oximetry 96 Oxygen Delivery Method Room Air BMI result Body Mass Index 30.8 <MARLENA Steel - Last Filed: 10/07/22 18:42> General appearance no distress The eyes no redness or discharge The sinuses are nontender, the nose is mildly congested The pharynx is clear without redness swelling or exudate, membranes are moist Neck is supple Chest is clear to auscultation bilateral no wheezing no adventitious sounds breath sounds are full and equal Chest wall exam there is tenderness to the chest wall, skin of the chest wall was normal no rash or redness, pain is easily reproduced with bending twisting and moving, or with a deep breath Heart no murmur Abdomen soft nontender Extremities no edema no calf tenderness or swelling Skin no obvious rash The back there was some soft tissue tenderness bilateral upper and lower back, no bony tenderness, skin of the back was normal no rash Extremities full range of motion x4 Gait and balance are normal, interaction comprehension and expression are normal motor is 5/5 x4 and sensation intact and symmetric, cranial nerves 2-12 intact as tested <MARLENA Steel - Last Filed: 10/07/22 18:42> Course Course Course Narrative: 51-year-old primarily Swedish-speaking female presents for evaluation of cough, congestion, sore throat. A viral panel and rapid strep were ordered <Ashu Azevedo - Last Filed: 10/07/22 16:32> 51-year-old primarily Swedish-speaking female presents for evaluation of cough, congestion, sore throat. A viral panel and rapid strep were ordered Swabs for COVID flu and strep were all negative EKG was a normal sinus rhythm with a rate of 82, OR interval was normal, QRS duration was normal, QT was normal, no acute ST or ischemic changes Chest x-ray was normal Patient's chest discomfort is easily reproduced with palpation, movement, cough, deep breath and is likely muscle irritation in the chest wall Patient is treated for possible bronchitis with antibiotic Zithromax Asthma is treated with prednisone, she does have her inhaler at home Itchiness is treated with cetirizine and well-appearing patient breathing easily with no shortness of breath is discharged <MARLENA Steel - Last Filed: 10/07/22 18:42> Medical Decision Making Lab Data Labs: Lab Results 10/07/22 10/07/22 10/07/22 Range/Units 16:43 16:44 16:44 COVID-19 (EDWAR) Negative (Negative) COVID-19 Clin Com See Note Influenza Type A (DANTE) Negative (Negative) Influenza Type B (DANTE) Negative (Negative) Influenza A & B Note See Note S. pyogenes GrpA DANTE Negative (Negative) <Ashu DunnAnaiSilas - Last Filed: 10/07/22 16:32> Lab Results 10/07/22 10/07/22 10/07/22 Range/Units 16:43 16:44 16:44 COVID-19 (EDWAR) Negative (Negative) COVID-19 Clin Com See Note Influenza Type A (DANTE) Negative (Negative) Influenza Type B (DANTE) Negative (Negative) Influenza A & B Note See Note S. pyogenes GrpA DANTE Negative (Negative) <MARLENA Steel - Last Filed: 10/07/22 18:42> Discharge Plan Discharge Clinical Impression: Bronchitis <Ashu Azevedo - Last Filed: 10/07/22 16:32> Patient Disposition: Home, Self-Care <Ashu Azevedo - Last Filed: 10/07/22 16:32> Additional Instructions: We are treating possible bronchitis with doxycycline antibiotic For frequent use of asthma inhaler and frequent wheezing we are prescribing prednisone For itching try cetirizine Chest x-ray was normal EKG did not show any sign of any heart problem COVID and flu testing were negative as was strep throat testing There is no sign of any dangerous or worrisome condition at this time Return any time any worse condition or any concerns <Ashu Jolly - Last Filed: 10/07/22 16:32> Prescriptions: New prednisone 20 mg tablet 60 mg PO DAILY 3 Days Qty: 9 0RF benzonatate 200 mg capsule 200 mg PO BID PRN (Reason: cough) Qty: 10 0RF doxycycline hyclate 100 mg capsule 100 mg PO BID 7 Days Qty: 14 0RF acetaminophen 500 mg tablet 1,000 mg PO TID PRN (Reason: pain) Qty: 20 0RF No Action albuterol sulfate 90 mcg/actuation HFA aerosol inhaler 2 puff PO Q4H PRN (Reason: bronchospasm) 30 Days Qty: 8.5 6RF ufuerbtwap-murpjbmzkteof-wqjv 50-325-40 mg tablet 1 tab PO ONCE PRN (Reason: pain) 30 Days Qty: 30 0RF duloxetine 20 mg capsule,delayed release(DR/EC) 20 mg PO BID 30 Days Qty: 60 3RF cholecalciferol (vitamin D3) 50 mcg (2,000 unit) tablet 50 mcg PO DAILY 90 Days Qty: 90 1RF clonazepam 0.5 mg tablet 0.5 mg PO BEDTIME PRN (Reason: anxiety) 30 Days Qty: 60 0RF Combivent Respimat 20-100 mcg/actuation mist 1 puff PO QID 30 Days Qty: 25 1RF Patient Comments: Pulmo given hydrochlorothiazide 25 mg tablet 25 mg PO DAILY 30 Days Qty: 30 11RF (DME) blood pressure monitor [Blood Pressure Kit] Kit See Rx Instructions .ROUTE .MEDSUPPLY Qty: 1 0RF Rx Instructions: As directed (DME) cane Device See Rx Instructions .Route Qty: 1 0RF Rx Instructions: As directed fluticasone propionate [Flonase Allergy Relief] 50 mcg/actuation spray,suspension 2 spray intranasal Q12H 30 Days Qty: 16 0RF Rx Instructions: administer into each nostril tramadol 50 mg tablet 50 mg PO BID PRN (Reason: severe pain (scale score 7-10)) 30 Days Qty: 60 0RF cyclobenzaprine 10 mg tablet 10 mg PO Q8H Qty: 20 0RF rpuhsprbpl-nqyvpvladyaxa-simk [Fioricet] 50-300-40 mg capsule 1 cap PO Q8H PRN (Reason: pain) Qty: 10 0RF loratadine 10 mg tablet 10 mg PO DAILY PRN (Reason: for allergies) 30 Days Qty: 30 1RF fenofibrate 54 mg tablet 54 mg PO DAILY 90 Days Qty: 90 1RF fluconazole [Diflucan] 150 mg tablet 150 mg PO Q3D Qty: 2 0RF <Ashu Azevedo - Last Filed: 10/07/22 16:32>
[2022-10-07 17:03] LABS: IDNOW Serial# 08D9AD1C; Strep A Nucleic Acid Negative (Negative)
[2022-10-07 17:03] LABS: COVID-19 Test Negative (Negative); IDNOW Serial# BCCEAD1C
[2022-10-07 17:04] LABS: IDNOW Serial# 9DB6401D; Influenza A Negative (Negative); Influenza B2 Negative (Negative)
--- NOTE | 2022-10-07 17:31 | ECG_ITS ---
Test Reason : PAIN Blood Pressure : / mmHG Vent. Rate : 082 BPM Atrial Rate : 082 BPM P-R Int : 134 ms QRS Dur : 076 ms QT Int : 388 ms P-R-T Axes : 039 021 001 degrees QTc Int : 453 ms Normal sinus rhythm Normal ECG When compared with ECG of 24-JUL-2022 17:07, No significant change was found Referred By: Robles Kemp Electronically Signed By:DAVON REVELES
[2022-10-07 18:42] VITALS: BP 123/92; PULSE 86; RESP 18; TEMP 36.6; O2SAT 97
[2022-10-07] MEDS: predniSONE 20 MG TABLET 60 MG PO (18:45)
== END 2022-10-07 18:51 | disposition home or self-care (01) ==
PROVIDERS: Physician Assistant; Emergency Provider Emergency Medicine; PCP Internal Medicine
DX: J40 Bronchitis, not specified as acute or chronic (principal); J02.9 Acute pharyngitis, unspecified; Z20.822 Contact with and (suspected) exposure to COVID-19; F17.210 Nicotine dependence, cigarettes, uncomplicated; Z79.899 Other long term (current) drug therapy
CPT/HCPCS: 71046; 87502; 87635; 87651; 93005; 99283; 99284

== ENCOUNTER 2022-12-24 21:52 | Emergency (ER) | payer OTHER, SELFPAY ==
[2022-12-24 21:56] VITALS: BP 155/94; PULSE 101; RESP 18; TEMP 36.8; O2SAT 99; BMI 28.7
[2022-12-24 23:00] LABS: Alanine Aminotransferase 10 U/L (0-31); Alkaline Phosphatase 98 U/L (39-117); Anion Gap 14 (12-20); Aspartate Amino Transferase 13 U/L (5-31); Bilirubin Total 0.4 mg/dL (0.0-1.0); Blood Urea Nitrogen 19 mg/dL (9-16); Calcium 9.5 mg/dL (8.4-10.2); Carbon Dioxide 29 mmol/L (22-29); Chloride 103 mmol/L (96-108); Creatinine Clr Calc Pharmacy 59.4; Estimated Glomerular Filt Rate > 60; Glucose Random 148 mg/dL (60-115); Sodium 143 mmol/L (135-145); Total Protein 7.3 g/dL (6.5-8.0)
[2022-12-25 00:13] VITALS: BP 125/80; PULSE 79; RESP 12; TEMP 36.8; O2SAT 100
--- NOTE | 2022-12-25 00:55 | ED.DIZZY ---
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 Patient states that she was seen by the LAURA at her PCPs office and diagnosed with right otitis media. She states she took amoxicillin for 3 days but had to stop it secondary to nausea and vomiting. She states that her pain in her right ear in the right side of her face is a constant, sharp, pain which is 8/10 at its worst. She has not had the decreased hearing. She states that she was at a store last night when she had increased pain. She felt lightheaded and dizzy as if she was going to pass out. She states she briefly lost her vision. She was concerned about the symptoms so she came to emergency department for evaluation. She states she has been taking Tylenol and tramadol with no relief of her pain. She denied fever, chills, rhinorrhea, sore throat, cough, chest pain or shortness of breath. Related Data Previous Rx's Medication Instructions Recorded albuterol sulfate 90 mcg/actuation 2 puff PO Q4H PRN bronchospasm 30 05/24/21 aerosol inhaler days #8.5 grams mmkaovooor-qlvyieectkftr-ccwprzdv 1 tab PO ONCE PRN pain 30 days #30 02/15/22 50 mg-325 mg-40 mg tablet tabs duloxetine 20 mg capsule,delayed 20 mg PO BID 30 days #60 caps 05/16/22 release cholecalciferol (vitamin D3) 50 50 mcg PO DAILY 90 days #90 tabs 05/17/22 mcg (2,000 unit) tablet fluconazole 150 mg tablet 150 mg PO Q3D 2 doses #2 tabs 06/20/22 (Diflucan) mklrnlgwwd-wxvfgdqrbddlm-aqvtzrgk 1 cap PO Q8H PRN pain #10 caps 08/14/22 50 mg-300 mg-40 mg capsule (Fioricet) hydrochlorothiazide 25 mg tablet 25 mg PO DAILY 30 days #30 tabs 09/02/22 blood pressure monitor (Blood #1 ea 09/06/22 Pressure Kit) cane #1 ea 09/06/22 loratadine 10 mg tablet 10 mg PO DAILY PRN for allergies 09/14/22 30 days #30 tabs cyclobenzaprine 10 mg tablet 10 mg PO Q8H #20 tabs 10/02/22 acetaminophen 500 mg tablet 1,000 mg PO TID PRN pain #20 tabs 10/07/22 benzonatate 200 mg capsule 200 mg PO BID PRN cough #10 caps 10/07/22 clonazepam 0.5 mg tablet 0.5 mg PO BEDTIME PRN anxiety 30 10/17/22 days #60 tabs fluticasone propionate 50 2 spray intranasal Q12H 30 days 10/30/22 mcg/actuation nasal #16 grams spray,suspension (Flonase Allergy Relief) tramadol 50 mg tablet 50 mg PO BID PRN severe pain 11/27/22 (scale score 7-10) 30 days #60 tabs amoxicillin 875 mg-potassium 1 tab PO Q12H #14 tabs 12/15/22 clavulanate 125 mg tablet prednisone 20 mg tablet 20 mg PO DAILY #5 tabs 12/15/22 fenofibrate 54 mg tablet 54 mg PO DAILY 90 days #90 tabs 12/17/22 ipratropium 20 mcg-albuterol 100 1 puff PO QID 30 days #25 mL 12/22/22 mcg/actuation mist for inhalation (Combivent Respimat) cefuroxime axetil 500 mg tablet 500 mg PO Q12H 10 days #20 tabs 12/25/22 morphine 15 mg immediate release 15 mg PO Q4-6H PRN pain #8 tabs 12/25/22 tablet potassium chloride 20 mEq 20 meq PO DAILY #30 tabs 12/25/22 tablet,extended release Allergies Allergy/AdvReac Type Severity Reaction Status Date / Time amitriptyline Allergy Intermediate headache Verified 12/15/22 16:57 ibuprofen [From Motrin] Allergy Intermediate ITCHY RASH Verified 12/15/22 16:57 gabapentin AdvReac Intermediate vomiting Verified 12/15/22 16:57 Review of Systems Review of Systems: Yes all other systems are reviewed and are negative [facility] Past Medical History [facility] Narrative: Social history: She denies tobacco, alcohol and drug use. Medical History Acute maxillary sinusitis Anxiety Blurry vision Cervical cancer screening Depression Dyslipidemia Dyspnea Epigastric pain Essential hypertension Fibromyalgia GERD (gastroesophageal reflux disease) Goiter Hand pain Has daytime drowsiness Hospital discharge follow-up HTN (hypertension) Leg pain, bilateral Microscopic hematuria Migraine Moderate recurrent major depression Otitis externa Physical exam Pulmonary nodules Right lower quadrant pain Skin lesion Tobacco dependence Surgical History H/O LEEP H/O tubal ligation History of breast lump/mass excision History of lithotripsy Family History Family History Father Myocardial infarction Mother Lung cancer Brother Liver cancer Maternal Grandfather Stomach cancer Maternal Grandmother No problems noted. Social History Social History Housing: Apartment Alcohol intake: former Patient Tobacco Use Status: Current someday Tobacco user Tobacco use type: Cigarette Cigarettes Per Day: 3 Smoked in Last 30 Days: Yes e-Cigarette/Vaping Use: Never Used Second Hand Smoke Exposure: No Use of substances other than those prescribed or required for medical reasons: No Advance Directives: No Advance Directives Information Provided: Yes service: No Current occupational status: disabled Gender identity: Female Cognitive needs: No Hearing needs: No Vision needs: No Physical Exam Vital Signs: Vital Signs: Last Vital Signs Temp 98.3 F 12/25/22 00:13 Pulse 79 12/25/22 00:13 Resp 12 12/25/22 00:13 BP 125/80 12/25/22 00:13 Pulse Ox 100 12/25/22 00:13 O2 Del Method Room Air 12/25/22 00:13 BMI result Body Mass Index 28.7 Const: General: cooperative and no acute distress Orientation/consciousness: oriented to person and oriented to place Limitations: no limitations HEENT: Head: Yes normal to inspection, Yes normocephalic and Yes atraumatic Ears: external ears normal, TM normal on the right (Erythematous with loss of landmarks) and TM normal on the left (Scarring, no erythema) General nose exam: Normal external nose present Face and sinus: Yes sinuses nontender (Maxillary sinuses right greater than left) Mouth: Normal oral and palatal mucosa present Throat: Yes posterior oropharynx normal Eyes: General: appearance normal, both eyes and all related structures Pupils: Equal, round and reactive pupils present Neck: Neck: Yes normal visual inspection, Yes no lymphadenopathy, Yes trachea midline and Yes supple Chest: Chest palpation & inspection: normal inspection of the chest and normal palpation of entire chest wall Resp: Effort & Inspection: normal respiratory effort and able to speak in complete sentences Auscultation: clear to auscultation bilaterally Cardio: Rate: regular rate Rhythm: regular rhythm Heart sounds: S1 normal heart sound present, S2 normal heart sound present and no murmurs GI: Inspection: Yes normal to inspection Palpation (GI): Soft to palpation, nontender and no guarding Auscultation: normal bowel sounds : General: Yes no CVA tenderness Back/Spine/Pelvis: Back: no CVA tenderness Skin: General skin exam: no rashes or lesions noted Neuro: General: oriented to person and oriented to place Cranial nerves: Yes CN's II-XII intact bilaterally and Yes Equal, round and reactive pupils present Cognition (Neuro): normal cognition Motor exam (neuro): 5/5 motor strength present throughout Extrem: General: Yes normal to inspection Psych: Appearance: grossly normal Speech and movement: Normal speech and movement present Affect: normal affect Attitude: cooperative Thought process: Normal thought process present Thought content: Normal thought content present Medical Decision Making Medical Decision Making MDM Narrative: 52-year-old female who presents emergency department for evaluation right-sided facial, ear and head pain time 3 days with near syncopal episode and brief loss of vision prior to coming to the emergency department. Patient was recently diagnosed with right otitis media and started on amoxicillin but she discontinued this secondary to vomiting. The patient vital signs did reveal an elevated blood pressure of 155/95 but this improved to 120 5/80 without treatment. Patient's heart rate was also initially elevated 101 but again this improved without treatment to 79. Patient's exam is consistent with right otitis media and right maxillary sinusitis pain. 0118: Patient's potassium was low at 3.0 this is most likely secondary to diuretic induced hypokalemia caused by her hydrochlorothiazide. High sensitive troponin I was below detectable limits an EKG was unremarkable. Patient's near syncope was most likely caused by vasovagal syndrome triggered by her pain possibly triggered by anxiety as well pain Patient was prescribed cefuroxime 500 mg twice a day for 10 days to treat her sinusitis and her otitis media. She was advised to take Tylenol and for pain not relieved by Tylenol she was prescribed morphine 15 mg every 6 hours, dispense 8. She was advised to stop tramadol while taking morphine. She was given potassium chloride ER 20 mEq daily for 1 month to treat her hypokalemia. She was given printed and verbal instructions and discharged home. Differential Diagnosis Differential diagnosis includes was not limited to sinusitis, otitis media, myocardial infarction, myocardial ischemia, vasovagal, anxiety Admission/Observation Consideration of admission/observation: Escalation of care including admission/observation considered Lab Data MDM Lab Attestation statement: I reviewed the patient's lab results. My independent interpretation patient's laboratory evaluation is as follows: Hypo kalemia with a potassium 3.0 most likely diuretic induced, elevated glucose 148. High sensitive troponin I was below detectable limits. 12/24/22 22:40 12/24/22 22:40 Labs: Lab Results 12/24/22 12/24/22 12/24/22 Range/Units 22:40 22:40 22:40 WBC 8.4 (4.8-10.8) X10*3/uL RBC 4.52 (4.20-5.50) X10*6/uL Hgb 12.1 (12.0-16.0) g/dl Hct 38.0 (37.0-47.0) % MCV 84.1 (80.0-98.0) fL MCH 26.8 L (27.0-33.0) pg MCHC 31.8 (31.0-35.0) g/dl RDW 14.6 (11.0-16.0) % Plt Count 312 (160-400) X10*3/uL MPV 10.1 (9.4-12.3) fL Absolute Nucleated RBC 0.000 (0.0-0.012) X10*3/uL Nucleated RBC % (auto) 0.0 (0.0-0.2) /100WBC Sodium 143 (135-145) mmol/L Potassium 3.0 L (3.3-5.1) mmol/L Chloride 103 (96-108) mmol/L Carbon Dioxide 29 (22-29) mmol/L Anion Gap 14 (12-20) BUN 19 H (9-16) mg/dL Creatinine 0.96 (0.5-1.4) mg/dL Estim Creat Clear Calc 59.4 Estimated GFR > 60 Random Glucose 148 H (60-115) mg/dL Calcium 9.5 (8.4-10.2) mg/dL Total Bilirubin 0.4 (0.0-1.0) mg/dL AST 13 (5-31) U/L ALT 10 (0-31) U/L Alkaline Phosphatase 98 (39-117) U/L Troponin I High Sens < 2.7 (<3.5-17.0) ng/L Total Protein 7.3 (6.5-8.0) g/dL Albumin 4.0 (3.5-5.0) g/dL Independent Interpretation I performed an independent interpretation of an: EKG Interpretation: My independent interpretation of the patient's 12 EKG done at 22:31 is as follows: Normal sinus rhythm with a rate of 88, normal ID interval, normal QRS duration QTC interval, no ST segment elevation, no ST segment depression, nonspecific T-wave abnormalities, no PACs, no PVCs. External Record Review External record reviewed: Other ([place] prescription monitoring program-no narcotic prescribed 1 year.) Prescription Management I considered prescription management with: Pain Medication and Antibiotic Chronic Conditions Patient?s care impacted by: Diabetes and Hypertension Discharge Plan Discharge Clinical Impression: Acute right otitis media, Sinusitis, acute, Near syncope, Diuretic-induced hypokalemia Patient Disposition: Home, Self-Care Instructions: Sinusitis (ED), Hypokalemia (ED), Ear Infection (ED) Additional Instructions: Take Ceftin (cefuroxime) 500 mg pills, 1 pill every 12 hours times 10 days. This antibiotic will treat your infection and a sinus infection. Stop taking amoxicillin. Take Tylenol (acetaminophen) 500 mg, 2 pills every 6 hours as needed for pain. For pain not relieved byTylenol take morphine 15 mg pills, 1 pill every 4 hours as needed for pain. This medication will make you sleepy, do not drive or work while taking this medication. Morphine is a narcotic medication and can be addicting. If you are concerned about addiction you can ask the pharmacist for less pills or do not get this prescription filled. Do not take your tramadol while your taking morphine. Your potassium was low at 3.0 (normal is 3.3-5.1). Your potassium is most likely low because URI on the diuretic hydrochlorothiazide. Take potassium chloride extended release, 20 mEq once a day for 1 month After that she should stay on a high potassium diet and get your potassium recheck to determine if you need to be on potassium on a regular basis. Follow-up with your doctor in 2 days. Please return to the emergency department if your symptoms get worse or if you develop any symptoms that are concerning to you. Prescriptions: New cefuroxime axetil 500 mg tablet 500 mg PO Q12H 10 Days Qty: 20 0RF morphine 15 mg tablet 15 mg PO Q4-6H PRN (Reason: pain) Qty: 8 0RF Rx Instructions: The patient may ask for partial fill; Partial Fill upon patient request. potassium chloride 20 mEq tablet extended release 20 meq PO DAILY Qty: 30 0RF No Action albuterol sulfate 90 mcg/actuation HFA aerosol inhaler 2 puff PO Q4H PRN (Reason: bronchospasm) 30 Days Qty: 8.5 6RF mmscpqeeph-hqarjiemqoqqu-knte 50-325-40 mg tablet 1 tab PO ONCE PRN (Reason: pain) 30 Days Qty: 30 0RF duloxetine 20 mg capsule,delayed release(DR/EC) 20 mg PO BID 30 Days Qty: 60 3RF cholecalciferol (vitamin D3) 50 mcg (2,000 unit) tablet 50 mcg PO DAILY 90 Days Qty: 90 1RF hydrochlorothiazide 25 mg tablet 25 mg PO DAILY 30 Days Qty: 30 11RF (DME) blood pressure monitor [Blood Pressure Kit] Kit See Rx Instructions .ROUTE .MEDSUPPLY Qty: 1 0RF Rx Instructions: As directed (DME) cane Device See Rx Instructions .Route Qty: 1 0RF Rx Instructions: As directed cyclobenzaprine 10 mg tablet 10 mg PO Q8H Qty: 20 0RF clonazepam 0.5 mg tablet 0.5 mg PO BEDTIME PRN (Reason: anxiety) 30 Days Qty: 60 0RF fluticasone propionate [Flonase Allergy Relief] 50 mcg/actuation spray,suspension 2 spray intranasal Q12H 30 Days Qty: 16 0RF Rx Instructions: administer into each nostril tramadol 50 mg tablet 50 mg PO BID PRN (Reason: severe pain (scale score 7-10)) 30 Days Qty: 60 0RF fenofibrate 54 mg tablet 54 mg PO DAILY 90 Days Qty: 90 1RF Combivent Respimat 20-100 mcg/actuation mist 1 puff PO QID 30 Days Qty: 25 1RF Patient Comments: Pulmo given rlgfstnbjv-hertiovvxdihg-blxz [Fioricet] 50-300-40 mg capsule 1 cap PO Q8H PRN (Reason: pain) Qty: 10 0RF benzonatate 200 mg capsule 200 mg PO BID PRN (Reason: cough) Qty: 10 0RF acetaminophen 500 mg tablet 1,000 mg PO TID PRN (Reason: pain) Qty: 20 0RF loratadine 10 mg tablet 10 mg PO DAILY PRN (Reason: for allergies) 30 Days Qty: 30 1RF fluconazole [Diflucan] 150 mg tablet 150 mg PO Q3D Qty: 2 0RF amoxicillin-pot clavulanate 875-125 mg tablet 1 tab PO Q12H Qty: 14 0RF prednisone 20 mg tablet 20 mg PO DAILY Qty: 5 0RF Print Language: Jordanian
== END 2022-12-25 01:46 | disposition home or self-care (01) ==
PROVIDERS: Emergency Provider Emergency Medicine Emergency Medical Services; PCP Internal Medicine
DX: H66.91 Otitis media, unspecified, right ear (principal); R42 Dizziness and giddiness; H54.7 Unspecified visual loss; J32.9 Chronic sinusitis, unspecified; R55 Syncope and collapse; E87.6 Hypokalemia; R94.31 Abnormal electrocardiogram [ECG] [EKG]; F17.210 Nicotine dependence, cigarettes, uncomplicated; Z71.6 Tobacco abuse counseling; Z79.899 Other long term (current) drug therapy
CPT/HCPCS: 36415; 80053; 84484; 85027; 93005; 99284; 99285

== ENCOUNTER → 2022-12-24 22:30 | Outpatient (BNV) | payer OTHER, SELFPAY | PROVIDERS: Emergency Provider Emergency Medicine Emergency Medical Services; PCP Internal Medicine; Visit Provider Internal Medicine Cardiovascular Disease | DX: R42 Dizziness and giddiness (principal) | CPT/HCPCS: 93010 ==

== ENCOUNTER 2023-01-01 13:42 | Outpatient (AMB) | payer OTHER, SELFPAY ==
[2023-01-01 13:47] VITALS: BP 126/80; BMI 28.9
--- NOTE | 2023-01-01 13:47 | A.OFFPC_ITS ---
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 Accompanied by: Self / Same As Patient Allergies amitriptyline Allergy (Intermediate, Verified 01/01/23 14:02) headache ibuprofen [From Motrin] Allergy (Intermediate, Verified 01/01/23 14:02) ITCHY RASH gabapentin Adverse Reaction (Intermediate, Verified 01/01/23 14:02) vomiting Medication List - Last Reconciled 01/01/23 by Neyda Peres MD acetaminophen 1,000 mg (2 x 500 mg) PO TID PRN albuterol sulfate 90 mcg/actuation 2 puffs PO Q4H PRN 30 days blood pressure monitor (Blood Pressure Kit) As directed iploflwmem-wxlmeeqkkqwcj-inpr 50-300-40 mg (Fioricet) 1 cap PO Q8H PRN qzfdmxajxg-tekdxydsrjkyq-xxvq 50-325-40 mg 1 tab PO ONCE PRN 30 days cane As directed cefuroxime axetil 500 mg PO Q12H 10 days cholecalciferol (vitamin D3) 50 mcg PO DAILY 90 days clonazepam 0.5 mg PO BEDTIME PRN 30 days cyclobenzaprine 10 mg PO Q8H duloxetine 20 mg PO BID 30 days fenofibrate 54 mg PO DAILY 90 days fluticasone propionate 50 mcg/actuation (Flonase Allergy Relief) 2 sprays intranasal Q12H 30 days hydrochlorothiazide 25 mg PO DAILY 30 days ipratropium-albuterol 20-100 mcg/actuation (Combivent Respimat) 1 puff PO QID 30 days loratadine 10 mg PO DAILY PRN 30 days morphine 15 mg PO Q4-6H PRN potassium chloride ER 20 mEq PO DAILY tramadol 50 mg PO BID PRN 30 days Tobacco use date assessed: 06/20/22 Dental Screening Dental Screen Date: 01/01/23 Did you have a dental visit in the last 12 months?: Yes Did you have a dental problem in the last 6 months where you did not have access to dental care?: No Was dental information given to patient?: Patient has dentist HPI HPI Comments History of Present Illness Details This is a 52-year-old female with hypertension, fibromyalgia and mild t o moderate recurrent major depression that comes today as a hospital discharge follow-up with discharge date 12/25/2022 due to dizziness associated with persistent headaches involving the right parietal lobe. Labs were done at ER showing low potassium that was supplemented at high will repeat potassium. Blood pressure stable. Fibromyalgia has improved with medication. Depression also has mildly improved. Has no neurological deficit. the episode of dizziness that lead her to ER was also associated with loss of vision for few seconds. Will be referred to Neurology. [facility] Medical History (Updated 01/01/23 @ 16:11 by Neyda Peres MD) Acute maxillary sinusitis Anxiety Blurry vision Cervical cancer screening Depression Dyslipidemia Dyspnea Epigastric pain Essential hypertension Fibromyalgia GERD (gastroesophageal reflux disease) Goiter Hand pain Has daytime drowsiness Hospital discharge follow-up HTN (hypertension) Leg pain, bilateral Microscopic hematuria Migraine Moderate recurrent major depression Otitis externa Physical exam Pulmonary nodules Right lower quadrant pain Skin lesion Tobacco dependence Surgical History H/O LEEP H/O tubal ligation History of breast lump/mass excision History of lithotripsy Family History Father Myocardial infarction Mother Lung cancer Brother Liver cancer Maternal Grandfather Stomach cancer Maternal Grandmother No problems noted. Social History Housing: Apartment Alcohol intake: former Patient Tobacco Use Status: Current someday Tobacco user Tobacco use type: Cigarette Cigarettes Per Day: 3 e-Cigarette/Vaping Use: Never Used Second Hand Smoke Exposure: No service: No Current occupational status: disabled Gender identity: Female Cognitive needs: No Hearing needs: No Vision needs: No Female Reproductive History Menstrual Age of Menarche: 9 Questionnaire Thrive Questionnaire Date Thrive assessed: 06/20/22 JOHN-7 AMB Questionnaire JOHN-7 Date JOHN - 7 assessed: 06/20/22 Source: Developed by Drs. Sylvester Merlos, Eve Mcclelland, Joby King and colleagues, with an educational pili from [employer]. Review of Systems Const All systems reviewed & are unremarkable except as noted in HPI and below Reports headache(s) Eyes Reports no additional complaints, Denies change in vision, Reports loss of vision and Denies other visual disturbances ENT Reports dizziness and Reports headache(s) Card Denies chest pain at rest, Denies chest pain with activity, Denies edema, Denies irregular heart rhythm, Denies claudication, Denies dyspnea, Denies dyspnea on exertion, Denies orthopnea, Denies paroxysmal nocturnal dyspnea and Denies slow heart rate Resp Denies cough, Denies dyspnea and Denies dyspnea on exertion GI Denies abdominal pain, Denies change in bowel habits, Denies excessive flatus, Denies nausea and Denies vomiting Denies urinary incontinence, Denies urinary hesitancy and Denies urinary urgency Musc Denies abnormal gait, Denies atrophy, Denies deformity and Denies limited range of motion Skin/Breast Denies bleeding lesions, Denies changing lesions and Denies rash Neuro Denies abnormal gait, Reports dizziness, Reports headache(s), Denies lack of coordination and Reports loss of vision Physical exam (Primary Care) Vital Signs: Last Vital Signs BP 126/80 01/01/23 13:47 BMI result Body Mass Index 28.9 Tobacco/Smoking Status: Tobacco use Status Tobacco use date assessed 06/20/22 01/01/23 13:54 Patient Tobacco Use Status Current someday Tobacco 01/01/23 13:54 Tobacco use type Cigarette 01/01/23 13:54 e-Cigarette/Vaping Use Never Used 01/01/23 13:54 Thrive Assessment: Date of Thrive Assessment Date Thrive assessed 06/20/22 01/01/23 13:54 Const Orientation/consciousness: patient oriented x3 Eyes General: appearance normal, both eyes and all related structures Eyelids: Yes eyelids normal Conjunctivae: conjunctivae normal Neck Neck: Yes normal visual inspection and Yes supple Resp Effort & Inspection: normal respiratory effort Auscultation: clear to auscultation bilaterally Cardio Jugular venous distension: no JVD Rate: regular rate Rhythm: regular rhythm Heart sounds: S1 normal heart sound present and S2 normal heart sound present Neuro General: patient oriented x3 Extrem General: Yes full ROM Assessment and Plan Assessment & Plan (1) Hospital discharge follow-up: Code(s): Z09 - Encounter for follow-up examination after completed treatment for conditions other than malignant neoplasm Plan: Discharge date 12/25/2022 due to headaches associated with dizziness and loss of vision. Labs were done showing low potassium that was supplemented. Feels markedly improved. (2) Moderate recurrent major depression: Code(s): F33.1 - Major depressive disorder, recurrent, moderate Plan: Continue duloxetine (3) Essential hypertension: Code(s): I10 - Essential (primary) hypertension Plan: Continue hydrochlorothiazide. Blood pressure goal is equal or less than 130/80. (4) Fibromyalgia: Code(s): M79.7 - Fibromyalgia Plan: Continue duloxetine (5) Persistent headaches: Code(s): R51.9 - Headache, unspecified Plan: MRI of the head ordered. Referred to neurology. Orders: Orders MR head/brain w con Today R51.9 - Headache, unspecified Comprehensive Met. Panel Today R51.9 - Headache, unspecified Lipid Panel Today E78.5 - Hyperlipidemia, unspecified Thyroid Stimulating Hormone Today E04.9 - Nontoxic goiter, unspecified Vitamin D 25-OH Total Today E55.9 - Vitamin D deficiency, unspecified Referrals Neurology Referral R51.9 - Headache, unspecified Coding Level of Care Code TCM Mod MDM <= 7 Days Diagnoses Hospital discharge follow-up Z09 Moderate recurrent major depression F33.1 Essential hypertension I10 Fibromyalgia M79.7 Persistent headaches R51.9 Time Spent (min) 24
== END 2023-01-01 14:12 | disposition home or self-care (01) ==
PROVIDERS: PCP Internal Medicine; Visit Provider Internal Medicine
DX: I10 Essential (primary) hypertension (principal); F33.1 Major depressive disorder, recurrent, moderate; Z09 Encounter for follow-up examination after completed treatment for conditions other than malignant neoplasm; M79.7 Fibromyalgia; R51.9 Headache, unspecified
CPT/HCPCS: 99214

== ENCOUNTER 2023-01-11 11:02 | Outpatient (REF) | payer OTHER, SELFPAY ==
[2023-01-11 13:25] LABS: Alanine Aminotransferase 25 U/L (0-31); Albumin Level 4.3 g/dL (3.5-5.0); Alkaline Phosphatase 99 U/L (39-117); Anion Gap 18 (12-20); Aspartate Amino Transferase 17 U/L (5-31); Bilirubin Total 0.3 mg/dL (0.0-1.0); Blood Urea Nitrogen 10 mg/dL (9-16); Calcium 10.3 mg/dL (8.4-10.2); Carbon Dioxide 22 mmol/L (22-29); Chloride 105 mmol/L (96-108); Cholesterol 228 mg/dL; Estimated Glomerular Filt Rate > 60; Glucose Random 93 mg/dL (60-115); HDL Cholesterol 38 mg/dL; Potassium 3.3 mmol/L (3.3-5.1); Sodium 142 mmol/L (135-145); Total Protein 7.9 g/dL (6.5-8.0); Triglycerides 637 mg/dL
[2023-01-11 13:44] LABS: Thyroid Stimulating Hormone 0.79 uIU/mL (0.32-4.0)
== END 2023-01-11 11:03 | disposition home or self-care (01) ==
LOC: HO.LAB 11:02
PROVIDERS: PCP Internal Medicine; Visit Provider Internal Medicine
DX: E04.9 Nontoxic goiter, unspecified (principal); E55.9 Vitamin D deficiency, unspecified; E78.5 Hyperlipidemia, unspecified; R51.9 Headache, unspecified
CPT/HCPCS: 36415; 80053; 80061; 82306; 84443

== ENCOUNTER 2023-01-16 16:40 | Emergency (ER) | payer OTHER, SELFPAY ==
--- NOTE | 2023-01-16 17:22 | ED.HA ---
HPI - Headache General Chief Complaint: Headache Stated Complaint: dizziness/headache Time Seen by Provider: 01/16/23 17:35 Source: patient Mode of arrival: ambulatory Limitations: no limitations History of Present Illness HPI Narrative: 52 yo female with history of TMJ, obesity, HLD, HTN, fibromyalgia, migraines who presents to the ER for evaluation of acute on chronic headache for the last 2 years. She reports the pain is in the bones of her head and face. Reports pain is now 20/10 and she can't sleep and continues to feel dizzy, feels unsteady when she walks. No improvement with Tylenol. Seen here in the past multiple times for similar complaints. Had normal head CT August [address] mastoid September 2021. Seen here in the ER 12/25 for right sided headache and ear pain, vision changes - diagnosed with sinusitis and ear infection. Saw PCP 01/01 and was ordered for MRI and referred to go see Neurology. She has been waiting for MRI appointment and referral for Neuro. MD elicited complaint: headache and other (dizziness ) Pertinent past history: migraines Onset (ago): year(s) (2) Location: generalized Severity: severe Quality & Timing: throbbing Exacerbating factors: none Relieving factors: nothing Associated symptoms: vision loss and lightheadedness Treatments prior to arrival: none Related Data Previous Rx's Medication Instructions Recorded albuterol sulfate 90 mcg/actuation 2 puff PO Q4H PRN bronchospasm 30 05/24/21 aerosol inhaler days #8.5 grams gbieybvacg-rkqntbguntudl-wehijhod 1 tab PO ONCE PRN pain 30 days #30 02/15/22 50 mg-325 mg-40 mg tablet tabs duloxetine 20 mg capsule,delayed 20 mg PO BID 30 days #60 caps 05/16/22 release cholecalciferol (vitamin D3) 50 50 mcg PO DAILY 90 days #90 tabs 05/17/22 mcg (2,000 unit) tablet ejmsnmmwat-mqejmyructmsn-kfzvwiaw 1 cap PO Q8H PRN pain #10 caps 08/14/22 50 mg-300 mg-40 mg capsule (Fioricet) hydrochlorothiazide 25 mg tablet 25 mg PO DAILY 30 days #30 tabs 09/02/22 blood pressure monitor (Blood #1 ea 09/06/22 Pressure Kit) cane #1 ea 09/06/22 loratadine 10 mg tablet 10 mg PO DAILY PRN for allergies 09/14/22 30 days #30 tabs cyclobenzaprine 10 mg tablet 10 mg PO Q8H #20 tabs 10/02/22 acetaminophen 500 mg tablet 1,000 mg PO TID PRN pain #20 tabs 10/07/22 fluticasone propionate 50 2 spray intranasal Q12H 30 days 10/30/22 mcg/actuation nasal #16 grams spray,suspension (Flonase Allergy Relief) ipratropium 20 mcg-albuterol 100 1 puff PO QID 30 days #25 mL 12/22/22 mcg/actuation mist for inhalation (Combivent Respimat) cefuroxime axetil 500 mg tablet 500 mg PO Q12H 10 days #20 tabs 12/25/22 morphine 15 mg immediate release 15 mg PO Q4-6H PRN pain #8 tabs 12/25/22 tablet potassium chloride 20 mEq 20 meq PO DAILY #30 tabs 12/25/22 tablet,extended release tramadol 50 mg tablet 50 mg PO BID PRN severe pain 12/30/22 (scale score 7-10) 30 days #60 tabs clonazepam 0.5 mg tablet 0.5 mg PO BEDTIME PRN anxiety 30 01/08/23 days #60 tabs atorvastatin 20 mg tablet 20 mg PO BEDTIME 90 days #90 tabs 01/12/23 fenofibrate 54 mg tablet 54 mg PO DAILY 90 days #90 tabs 01/12/23 trisqtzltb-zlflghzakecei-cayaxtbi 1 cap PO Q8H PRN pain #20 caps 01/16/23 50 mg-300 mg-40 mg capsule (Fioricet) cyclobenzaprine 10 mg tablet 10 mg PO TID PRN muscle spasm #10 01/16/23 tabs Allergies Allergy/AdvReac Type Severity Reaction Status Date / Time amitriptyline Allergy Intermediate headache Verified 01/01/23 14:02 ibuprofen [From Motrin] Allergy Intermediate ITCHY RASH Verified 01/01/23 14:02 gabapentin AdvReac Intermediate vomiting Verified 01/01/23 14:02 Review of Systems Review of Systems: Yes all other systems are reviewed and are negative PMFSH Past Medical History Medical History (Updated 01/16/23 @ 17:34 by MARLENA Philip) Acute maxillary sinusitis Anxiety Blurry vision Cervical cancer screening Depression Dyslipidemia Dyspnea Epigastric pain Essential hypertension Fibromyalgia GERD (gastroesophageal reflux disease) Goiter Hand pain Has daytime drowsiness Hospital discharge follow-up HTN (hypertension) Leg pain, bilateral Microscopic hematuria Migraine Moderate recurrent major depression Otitis externa Physical exam Pulmonary nodules Right lower quadrant pain Skin lesion Tobacco dependence Surgical History H/O LEEP H/O tubal ligation History of breast lump/mass excision History of lithotripsy Family History Family History Father Myocardial infarction Mother Lung cancer Brother Liver cancer Maternal Grandfather Stomach cancer Maternal Grandmother No problems noted. Social History Social History Housing: Apartment Alcohol intake: former Patient Tobacco Use Status: Current someday Tobacco user Tobacco use type: Cigarette Cigarettes Per Day: 3 e-Cigarette/Vaping Use: Never Used Second Hand Smoke Exposure: No Advance Directives: No Advance Directives Information Provided: No service: No Current occupational status: disabled Gender identity: Female Cognitive needs: No Hearing needs: No Vision needs: No Physical Exam Vital Signs: Vital Signs: Last Vital Signs Temp 97.7 F 01/16/23 17:23 Pulse 83 01/16/23 17:23 Resp 18 01/16/23 17:23 BP 132/96 H 01/16/23 17:23 Pulse Ox 96 01/16/23 17:23 O2 Del Method Room Air 01/16/23 17:23 BMI result Body Mass Index 24.6 Appearance: Alert. Oriented X3. No acute distress. Head: normocephalic, atraumatic. Eyes: Pupils equal, round and reactive to light. ENT: Pharynx normal. No tonsillar swelling or exudate. TMs without erythema or bulging, normal landmarks Neck: Normal inspection. Neck supple. CVS: Normal heart rate and rhythm. Pulses normal. Respiratory: No respiratory distress. Breath sounds normal. Skin: Skin warm and dry. Normal skin color. Normal skin turgor. No rashes. Extremities: No lower extremity edema. No joint swelling. Neuro/psych: Oriented X 3. No motor deficit. No sensory deficit. CN II-XII intact. Normal speech and cognition. Steady gait Medical Decision Making Medical Decision Making MDM Narrative: 52 yo female presenting with acute on chronic headaches, dizziness, jaw pain, intermittent vision changes for the last 2 years. Seen here in the ER for the same 1 month ago and saw PCP after with plan for MRI and Neuro. Was hoping to get MRI today in the ER. Explained not warranted today given chronicity of symptoms. She is neurologically intact. Had unremarkable workup for the same complaints 1 month ago. No evidence of ear infection or sinus infection today. Will start Fiorcet for headache and flexeril for TMJ given NSAID allergy. stable for d/c home with outpatient follow up Differential Diagnosis Differential Diagnoses: The differential diagnosis associated with the presentation includes fibromyalgia, migraine headache, tension headache, cluster headache, TMJ External Record Review External record reviewed: Office record, Outpatient record, Prior outpatient labs and Prior outpatient radiology Tests considered The following testing was considered but not selected: CT head, labs, EKG considered but not indicated today Prescription Management I considered prescription management with: Pain Medication Chronic Conditions Patient?s care impacted by: Hypertension Critical Care Time Critical Care Time Critical Care Time: No Discharge Plan Discharge Clinical Impression: Persistent headaches Patient Disposition: Home, Self-Care Instructions: Dizziness (ED), General Headache (ED) Additional Instructions: take the prescribed medications as directed follow up with your PCP & Neurology for further management Prescriptions: New wxalejfmob-kvjkoclccoqzs-shgm [Fioricet] 50-300-40 mg capsule 1 cap PO Q8H PRN (Reason: pain) Qty: 20 0RF cyclobenzaprine 10 mg tablet 10 mg PO TID PRN (Reason: muscle spasm) Qty: 10 0RF No Action albuterol sulfate 90 mcg/actuation HFA aerosol inhaler 2 puff PO Q4H PRN (Reason: bronchospasm) 30 Days Qty: 8.5 6RF kxkrsrmkyw-osakmzokijace-lnem 50-325-40 mg tablet 1 tab PO ONCE PRN (Reason: pain) 30 Days Qty: 30 0RF duloxetine 20 mg capsule,delayed release(DR/EC) 20 mg PO BID 30 Days Qty: 60 3RF cholecalciferol (vitamin D3) 50 mcg (2,000 unit) tablet 50 mcg PO DAILY 90 Days Qty: 90 1RF hydrochlorothiazide 25 mg tablet 25 mg PO DAILY 30 Days Qty: 30 11RF (DME) blood pressure monitor [Blood Pressure Kit] Kit See Rx Instructions .ROUTE .MEDSUPPLY Qty: 1 0RF Rx Instructions: As directed (DME) cane Device See Rx Instructions .Route Qty: 1 0RF Rx Instructions: As directed cyclobenzaprine 10 mg tablet 10 mg PO Q8H Qty: 20 0RF fluticasone propionate [Flonase Allergy Relief] 50 mcg/actuation spray,suspension 2 spray intranasal Q12H 30 Days Qty: 16 0RF Rx Instructions: administer into each nostril Combivent Respimat 20-100 mcg/actuation mist 1 puff PO QID 30 Days Qty: 25 1RF Patient Comments: Pulmo given tramadol 50 mg tablet 50 mg PO BID PRN (Reason: severe pain (scale score 7-10)) 30 Days Qty: 60 0RF clonazepam 0.5 mg tablet 0.5 mg PO BEDTIME PRN (Reason: anxiety) 30 Days Qty: 60 0RF atorvastatin 20 mg tablet 20 mg PO BEDTIME 90 Days Qty: 90 0RF fenofibrate 54 mg tablet 54 mg PO DAILY 90 Days Qty: 90 1RF znoyxeirxa-vantbjwnmcvpk-cxkd [Fioricet] 50-300-40 mg capsule 1 cap PO Q8H PRN (Reason: pain) Qty: 10 0RF acetaminophen 500 mg tablet 1,000 mg PO TID PRN (Reason: pain) Qty: 20 0RF cefuroxime axetil 500 mg tablet 500 mg PO Q12H 10 Days Qty: 20 0RF morphine 15 mg tablet 15 mg PO Q4-6H PRN (Reason: pain) Qty: 8 0RF Rx Instructions: The patient may ask for partial fill; Partial Fill upon patient request. potassium chloride 20 mEq tablet extended release 20 meq PO DAILY Qty: 30 0RF loratadine 10 mg tablet 10 mg PO DAILY PRN (Reason: for allergies) 30 Days Qty: 30 1RF Referrals: [facility] [place] [facility] [place]Provider Group] Neyda Foster MD [Primary Care Provider] - Interventions: ED Discharge Assessment Last Done: 01/16/23 17:41 Discharge Date/Time: 01/16/23 17:42 Print Language: Sami
[2023-01-16 17:23] VITALS: BP 132/96; PULSE 83; RESP 18; TEMP 36.5; O2SAT 96; BMI 24.6
== END 2023-01-16 17:42 | disposition home or self-care (01) ==
LOC: HO.ED 17:40
PROVIDERS: Emergency Provider Internal Medicine; PCP Internal Medicine
DX: R51.9 Headache, unspecified (principal); I10 Essential (primary) hypertension; E78.5 Hyperlipidemia, unspecified; Z79.899 Other long term (current) drug therapy; F17.210 Nicotine dependence, cigarettes, uncomplicated
CPT/HCPCS: 99282; 99283

== ENCOUNTER 2023-02-14 12:57 | Outpatient (AMB) | payer OTHER, SELFPAY ==
--- NOTE | 2023-02-14 13:03 | A.OFFPC_ITS ---
Vital Signs 02/14/23 13:05 Height 5 ft 1 in Weight 149 lb BMI 28.2 BP 102/80 Blood Pressure Location Lt brachial Position Sitting Intake Visit Reasons: dizziness and weakness with headaches Intake Note: Patient here for follow up dizziness, weakness with headaches Upper Marker Required: No Accompanied by: Self / Same As Patient Allergies amitriptyline Allergy (Intermediate, Verified 02/14/23 13:20) headache ibuprofen [From Motrin] Allergy (Intermediate, Verified 02/14/23 13:20) ITCHY RASH gabapentin Adverse Reaction (Intermediate, Verified 02/14/23 13:20) vomiting Medication List - Last Reconciled 02/14/23 by Neyda Peres MD acetaminophen 1,000 mg (2 x 500 mg) PO TID PRN albuterol sulfate 90 mcg/actuation 2 puffs PO Q4H PRN 30 days atorvastatin 20 mg PO BEDTIME 90 days blood pressure monitor (Blood Pressure Kit) As directed xkrrasutgv-usylbxkualzjd-mibu 50-300-40 mg (Fioricet) 1 cap PO Q8H PRN cane As directed cholecalciferol (vitamin D3) 50 mcg PO DAILY 90 days clonazepam 0.5 mg PO BEDTIME PRN 30 days cyclobenzaprine 10 mg PO TID PRN duloxetine 20 mg PO BID 30 days fenofibrate 54 mg PO DAILY 90 days fluticasone propionate 50 mcg/actuation (Flonase Allergy Relief) 2 sprays intranasal Q12H 30 days hydrochlorothiazide 25 mg PO DAILY 30 days ipratropium-albuterol 20-100 mcg/actuation (Combivent Respimat) 1 puff PO QID 30 days loratadine 10 mg PO DAILY PRN 30 days potassium chloride ER 20 mEq PO DAILY tramadol 50 mg PO BID PRN 30 days Tobacco use date assessed: 06/20/22 Dental Screening Dental Screen Date: 02/14/23 Did you have a dental visit in the last 12 months?: Yes Did you have a dental problem in the last 6 months where you did not have access to dental care?: No Was dental information given to patient?: Patient has dentist HPI HPI Comments History of Present Illness Details This is a 52-year-old female with hypertension, fibromyalgia, mixed hyperlipidemia and moderate recurrent major depression that comes today complaining of diffuse joint pain associated with headaches, dizziness and weakness that has been present for about 3 years. She goes to ER every week for pain in different areas of the body. She said she has to be check a week. I will refer her to pain management. On duloxetine for fibromyalgia. Just started statins and fibrates about 2 months ago. Depression still present with Cymbalta. The headaches are diffuse throughout and more prominent in the neck with no neurological deficit. [facility], LAT[facility] Medical History Acute maxillary sinusitis Anxiety Blurry vision Cervical cancer screening Depression Dyslipidemia Dyspnea Epigastric pain Essential hypertension Fibromyalgia GERD (gastroesophageal reflux disease) Goiter Hand pain Has daytime drowsiness Hospital discharge follow-up HTN (hypertension) Leg pain, bilateral Microscopic hematuria Migraine Moderate recurrent major depression Otitis externa Physical exam Pulmonary nodules Right lower quadrant pain Skin lesion Tobacco dependence Surgical History H/O LEEP H/O tubal ligation History of breast lump/mass excision History of lithotripsy Family History Father Myocardial infarction Mother Lung cancer Brother Liver cancer Maternal Grandfather Stomach cancer Maternal Grandmother No problems noted. Social History Housing: Apartment Alcohol intake: former Patient Tobacco Use Status: Current someday Tobacco user Tobacco use type: Cigarette Cigarettes Per Day: 3 e-Cigarette/Vaping Use: Never Used Second Hand Smoke Exposure: No service: No Current occupational status: disabled Gender identity: Female Cognitive needs: No Hearing needs: No Vision needs: No Female Reproductive History Menstrual Age of Menarche: 9 Questionnaire Thrive Questionnaire Date Thrive assessed: 06/20/22 JOHN-7 AMB Questionnaire JOHN-7 Date JOHN - 7 assessed: 06/20/22 Source: Developed by Drs. Sylvester Merlos, Eve Mcclelland, Joby King and colleagues, with an educational pili from [employer]. Review of Systems Const All systems reviewed & are unremarkable except as noted in HPI and below Eyes Reports no additional complaints, Denies change in vision and Denies other visual disturbances Card Denies chest pain at rest, Denies chest pain with activity, Denies edema, Denies irregular heart rhythm, Denies claudication, Denies dyspnea, Denies dyspnea on exertion, Denies orthopnea, Denies paroxysmal nocturnal dyspnea and Denies slow heart rate Resp Denies cough, Denies dyspnea and Denies dyspnea on exertion GI Denies abdominal pain, Denies change in bowel habits, Denies excessive flatus, Denies nausea and Denies vomiting Denies urinary incontinence, Denies urinary hesitancy and Denies urinary urgency Musc Denies abnormal gait, Denies atrophy, Denies deformity and Denies limited range of motion Skin/Breast Denies bleeding lesions, Denies changing lesions and Denies rash Neuro Denies abnormal gait and Denies lack of coordination Physical exam (Primary Care) Vital Signs: Last Vital Signs BP 102/80 02/14/23 13:05 BMI result Body Mass Index 28.2 Tobacco/Smoking Status: Tobacco use Status Tobacco use date assessed 06/20/22 02/14/23 13:12 Patient Tobacco Use Status Current someday Tobacco 02/14/23 13:12 Tobacco use type Cigarette 02/14/23 13:12 e-Cigarette/Vaping Use Never Used 02/14/23 13:12 Thrive Assessment: Date of Thrive Assessment Date Thrive assessed 06/20/22 02/14/23 13:12 Eyes General: appearance normal, both eyes and all related structures Eyelids: Yes eyelids normal Conjunctivae: conjunctivae normal Neck Neck: Yes normal visual inspection and Yes supple Resp Effort & Inspection: normal respiratory effort Auscultation: clear to auscultation bilaterally Cardio Jugular venous distension: no JVD Rate: regular rate Rhythm: regular rhythm Heart sounds: S1 normal heart sound present and S2 normal heart sound present Extrem General: Yes full ROM Assessment and Plan Assessment & Plan (1) Moderate recurrent major depression: Code(s): F33.1 - Major depressive disorder, recurrent, moderate Plan: Continue Cymbalta (2) Essential hypertension: Code(s): I10 - Essential (primary) hypertension Plan: Continue hydrochlorothiazide. Blood pressure goal is equal or less than 130/80. (3) Fibromyalgia: Code(s): M79.7 - Fibromyalgia Plan: Continue Cymbalta. (4) Mixed hyperlipidemia: Code(s): E78.2 - Mixed hyperlipidemia Plan: Continue statins and fibrates. Orders: Orders Potassium Today E87.6 - Hypokalemia Complete Blood Count Auto Diff Today D64.9 - Anemia, unspecified IRON PROFILE Today D64.9 - Anemia, unspecified Referrals Pain Management Referral M25.50 - Pain in unspecified joint Medications: New venlafaxine ER 37.5 mg PO BEDTIME 90 days 90 caps 0RF Coding Level of Care Code Est Pt Level 4 (92406) Diagnoses Moderate recurrent major depression F33.1 Essential hypertension I10 Fibromyalgia M79.7 Mixed hyperlipidemia E78.2 Time Spent (min) 22
[2023-02-14 13:05] VITALS: BP 102/80; BMI 28.2
== END 2023-02-14 13:32 | disposition home or self-care (01) ==
PROVIDERS: PCP Internal Medicine; Visit Provider Internal Medicine
DX: F33.1 Major depressive disorder, recurrent, moderate (principal); I10 Essential (primary) hypertension; M79.7 Fibromyalgia; E78.2 Mixed hyperlipidemia
CPT/HCPCS: 99214

== ENCOUNTER 2023-02-17 08:16 | Emergency (ER) | payer OTHER, SELFPAY ==
[2023-02-17 08:25] VITALS: BP 152/91; PULSE 83; RESP 17; TEMP 36.5; O2SAT 98; BMI 28.7
[2023-02-17] MEDS: Ondansetron ODT 4 MG TAB.RAPDIS TRANSLINGU (08:48)
--- NOTE | 2023-02-17 08:52 | ED.GENADULT ---
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 States she woke with symptoms at 2am. [place] fine yesterday prior to taking this medication. She took Claritin at home prior to arrival. Denies any vomiting. States feels as though she needs to have a bowel movement but has been unable to go. Denies any swelling to lips, tongue. MD complaint: medication reaction Onset (ago): hour(s) Treatments prior to arrival: other (Claritin, acetaminophen) Related Data Previous Rx's Medication Instructions Recorded albuterol sulfate 90 mcg/actuation 2 puff PO Q4H PRN bronchospasm 30 05/24/21 aerosol inhaler days #8.5 grams duloxetine 20 mg capsule,delayed 20 mg PO BID 30 days #60 caps 05/16/22 release cholecalciferol (vitamin D3) 50 50 mcg PO DAILY 90 days #90 tabs 05/17/22 mcg (2,000 unit) tablet hydrochlorothiazide 25 mg tablet 25 mg PO DAILY 30 days #30 tabs 09/02/22 blood pressure monitor (Blood #1 ea 09/06/22 Pressure Kit) cane #1 ea 09/06/22 loratadine 10 mg tablet 10 mg PO DAILY PRN for allergies 09/14/22 30 days #30 tabs acetaminophen 500 mg tablet 1,000 mg PO TID PRN pain #20 tabs 10/07/22 fluticasone propionate 50 2 spray intranasal Q12H 30 days 10/30/22 mcg/actuation nasal #16 grams spray,suspension (Flonase Allergy Relief) potassium chloride 20 mEq 20 meq PO DAILY #30 tabs 12/25/22 tablet,extended release clonazepam 0.5 mg tablet 0.5 mg PO BEDTIME PRN anxiety 30 01/08/23 days #60 tabs atorvastatin 20 mg tablet 20 mg PO BEDTIME 90 days #90 tabs 01/12/23 fenofibrate 54 mg tablet 54 mg PO DAILY 90 days #90 tabs 01/12/23 yaqmxjqgkq-dthqhtlcbfcxw-fzgetowi 1 cap PO Q8H PRN pain #20 caps 01/16/23 50 mg-300 mg-40 mg capsule (Fioricet) cyclobenzaprine 10 mg tablet 10 mg PO TID PRN muscle spasm #10 01/16/23 tabs tramadol 50 mg tablet 50 mg PO BID PRN severe pain 02/01/23 (scale score 7-10) 30 days #60 tabs venlafaxine 37.5 mg 37.5 mg PO BEDTIME 90 days #90 caps 02/14/23 capsule,extended release 24 hr ipratropium 20 mcg-albuterol 100 1 puff PO QID 30 days #25 mL 02/16/23 mcg/actuation mist for inhalation (Combivent Respimat) Allergies Allergy/AdvReac Type Severity Reaction Status Date / Time amitriptyline Allergy Intermediate headache Verified 02/14/23 13:20 ibuprofen [From Motrin] Allergy Intermediate ITCHY RASH Verified 02/14/23 13:20 gabapentin AdvReac Intermediate vomiting Verified 02/14/23 13:20 Review of Systems Review of Systems: As per HPI. Yes all other systems are reviewed and are negative Constitutional: Constitutional: Reports as per HPI PMFSH Past Medical History Medical History Acute maxillary sinusitis Anxiety Blurry vision Cervical cancer screening Depression Dyslipidemia Dyspnea Epigastric pain Essential hypertension Fibromyalgia GERD (gastroesophageal reflux disease) Goiter Hand pain Has daytime drowsiness Hospital discharge follow-up HTN (hypertension) Leg pain, bilateral Microscopic hematuria Migraine Moderate recurrent major depression Otitis externa Physical exam Pulmonary nodules Right lower quadrant pain Skin lesion Tobacco dependence Surgical History H/O LEEP H/O tubal ligation History of breast lump/mass excision History of lithotripsy Family History Family History Father Myocardial infarction Mother Lung cancer Brother Liver cancer Maternal Grandfather Stomach cancer Maternal Grandmother No problems noted. Social History Social History Housing: Apartment Alcohol intake: never Patient Tobacco Use Status: Current someday Tobacco user Tobacco use type: Cigarette Cigarettes Per Day: 3 Smoked in Last 30 Days: Yes e-Cigarette/Vaping Use: Never Used Second Hand Smoke Exposure: No Use of substances other than those prescribed or required for medical reasons: No Advance Directives: No Advance Directives Information Provided: No Patient : No service: No Current occupational status: disabled Gender identity: Female Cognitive needs: No Hearing needs: No Vision needs: No Physical Exam ED Vital Signs: Vital Signs - 24 hr 02/17/23 08:25 02/17/23 10:05 02/17/23 10:08 Temperature 97.7 F 98.1 F Pulse Rate 83 76 69 Respiratory Rate 17 16 18 Blood Pressure 152/91 H 146/88 H Pulse Oximetry 98 100 Oxygen Delivery Method Room Air 02/17/23 12:58 Temperature 97.9 F Pulse Rate 95 Respiratory Rate 18 Blood Pressure 136/71 Pulse Oximetry 98 Oxygen Delivery Method Room Air BMI result Body Mass Index 28.7 Vital signs have been reviewed and appear to be correct. Blood pressure elevated. Heart rate normal. Respiratory rate normal. Temperature normal. Oxygen saturation normal. Const General: cooperative, healthy appearing and no acute distress Orientation/consciousness: oriented to person, oriented to place, oriented to time and patient oriented x3 Limitations: no limitations HENMT Head: Yes normocephalic and Yes atraumatic Ears: external ears normal, TM's normal bilaterally, EAC's normal and mastoids normal bilaterally General nose exam: Normal external nose present Face and sinus: Yes face symmetric Mouth: Normal oral and palatal mucosa present, lip normal, tongue normal, oropharynx normal, moist mucous membranes, no audible dysphonia and no drooling Throat: Yes posterior oropharynx normal, Yes uvula midline and No uvular edema Eyes General: appearance normal, both eyes and all related structures Pupils: Equal, round and reactive pupils present EOM: EOMs intact bilaterally Neck Neck: Yes normal visual inspection and Yes supple Resp Effort & Inspection: normal respiratory effort and able to speak in complete sentences Auscultation: wheezes expiratory wheezes and throughout Cardio Rate: regular rate Rhythm: regular rhythm Heart sounds: S1 normal heart sound present and S2 normal heart sound present GI Inspection: Yes normal to inspection Palpation (GI): Soft to palpation and nontender Auscultation: normoactive bowel sounds General: Yes no CVA tenderness Back/Spine/Pelvis Back: no CVA tenderness Skin Other: one approx 2mm erythematous papule noted to right forearm, no other rashes or lesions General skin exam: elasticity normal and turgor normal Neuro General: oriented to person, oriented to place, oriented to time, patient oriented x3, gait normal, tone normal, moves all extremities, Normal light touch and pain sensation, no focal motor deficits and CN's II-XI intact bilaterally Cranial nerves: Yes Equal, round and reactive pupils present Cognition (Neuro): normal cognition Extrem General: Yes full ROM, Yes no pedal edema and Yes no calf tenderness Psych Mental Status: mental status grossly normal Affect: normal affect Thought process: Normal thought process present Medications Administered Discontinued Medications Generic Name Dose Route Start Last Admin Trade Name Freq PRN Reason Stop Dose Admin Acetaminophen 975 mg 02/17/23 10:02 02/17/23 10:17 Acetaminophen 325 Mg Tablet PO 02/17/23 10:03 975 mg ONCE ONE Administration Albuterol Sulfate 5 mg 02/17/23 09:01 02/17/23 10:07 Albuterol Sulfate (0.083%) 2.5 Mg/3 Ml Vial.Neb INHALE 02/17/23 09:02 5 mg ONCE ONE Administration Famotidine 20 mg 02/17/23 09:01 02/17/23 09:15 Famotidine 20 Mg Tablet PO 02/17/23 09:02 20 mg ONCE ONE Administration Ondansetron HCl 4 mg 02/17/23 08:44 02/17/23 08:48 Ondansetron Odt 4 Mg Tab.Rapdis TRANSLINGU 02/17/23 08:45 4 mg ONCE ONE Administration Medical Decision Making Medical Decision Making MDM Narrative: Patient is a 52-year-old Citizen [place]-speaking female with history of HTN, fibromyalgia, GERD, migraines, dyslipidemia presenting to the emergency department with complaint of generalized abdominal pain, nausea, diffuse itching, headache, ear pressure bilaterally, shortness of breath, and anxiety after taking first dose of venlafaxine 37.5mg before bed last night. On exam patient is awake, A+Ox3, BP elevated, VS otherwise WNL, afebrile, normal neurological exam without focal deficits, in no acute distress, no angioedema, no uvula edema, no lesions noted to tongue or oral mucosa, speaking easily in full sentences, expiratory wheezes noted throughout, abdomen soft and nontender, one isolated erythematous papule noted to right forearm 2mm noted, no rash noted. Given reported symptoms and physical exam findings, initial differential includes adverse medication reaction, drug hypersensitivity reaction, viral illness. Based on physical exam findings, do non suspect anaphylaxis, DRESS, TTP/DIC, meningococcemia, necrotizing fasciitis, TEN/SJS, SSSS, TSS. Labs notable for no leukocytosis, no eosinophilia. Patient specifically requesting testing for Covid, will order Covid and flu swabs. Covid and flu swabs negative, patient updated on results. Patient observed in the emergency department for over 5 hours with no new symptoms, feel patient is stable for discharge home. Discussed with patient that she can utilize Benadryl every 6 hours as needed for symptoms as well as famotidine daily. Instructed patient to discontinue venlafaxine until she follows up with her primary care provider. Return precautions discussed at bedside. Patient verbalized understanding of and agreement with plan. 15:00 RN in to discharge patient, patient requesting a prescription for fioricet, states she is out and has an ongoing headache consistent with her migraines. Will send prescription to the pharmacy for Fioricet. Differential Diagnosis Differential Diagnoses: The differential diagnosis associated with the presentation includes As per [facility]. Lab Data [facility] Lab Attestation statement: I reviewed the patient's lab results. As per [facility] 02/17/23 09:02/17/23 09:22 Labs: Lab Results 02/17/23 02/17/23 02/17/23 Range/Units 09:22 09:22 10:46 WBC 7.5 (4.8-10.8) X10*3/uL RBC 4.50 (4.20-5.50) X10*6/uL Hgb 12.0 (12.0-16.0) g/dl Hct 36.5 L (37.0-47.0) % MCV 81.1 (80.0-98.0) fL MCH 26.7 L (27.0-33.0) pg MCHC 32.9 (31.0-35.0) g/dl RDW 13.7 (11.0-16.0) % Plt Count 294 (160-400) X10*3/uL MPV 10.2 (9.4-12.3) fL Immature Gran % (Auto) 0.3 (0.0-0.4) % Neut % (Auto) 62.8 (45-73) % Lymph % (Auto) 27.0 (20-40) % [place] % (Auto) 7.1 (2-11) % Eos % (Auto) 1.9 (0-4) % Baso % (Auto) 0.9 (0-2) % Lymph # (Auto) 2.0 (1.2-4.9) X10*3/uL [place] # (Auto) 0.5 (0.1-1.2) X10*3/uL Eos # (Auto) 0.1 (0.0-0.4) X10*3/uL Baso # (Auto) 0.1 (0.0-0.2) X10*3/uL Abs Immat Gran (auto) 0.02 (0.00-0.03) X10*3/uL Absolute Neuts (auto) 4.7 (2.0-8.3) x10*3/uL Absolute Nucleated RBC 0.000 (0.0-0.012) X10*3/uL Nucleated RBC % (auto) 0.0 (0.0-0.2) /100WBC Sodium 140 (135-145) mmol/L Potassium 3.5 (3.3-5.1) mmol/L Chloride 102 (96-108) mmol/L Carbon Dioxide 25 (22-29) mmol/L Anion Gap 17 (12-20) BUN 14 (9-16) mg/dL Creatinine 0.83 (0.5-1.4) mg/dL Estim Creat Clear Calc 68.7 Estimated GFR > 60 Random Glucose 90 (60-115) mg/dL Calcium 10.1 (8.4-10.2) mg/dL COVID-19 (EDWAR) (Negative) COVID-19 Clin Com Influenza Type A (DANTE) Negative (Negative) Influenza Type B (DANTE) Negative (Negative) Influenza A & B Note See Note 02/17/23 Range/Units 10:46 WBC (4.8-10.8) X10*3/uL RBC (4.20-5.50) X10*6/uL Hgb (12.0-16.0) g/dl Hct (37.0-47.0) % MCV (80.0-98.0) fL MCH (27.0-33.0) pg MCHC (31.0-35.0) g/dl RDW (11.0-16.0) % Plt Count (160-400) X10*3/uL MPV (9.4-12.3) fL Immature Gran % (Auto) (0.0-0.4) % Neut % (Auto) (45-73) % Lymph % (Auto) (20-40) % [place] % (Auto) (2-11) % Eos % (Auto) (0-4) % Baso % (Auto) (0-2) % Lymph # (Auto) (1.2-4.9) X10*3/uL [place] # (Auto) (0.1-1.2) X10*3/uL Eos # (Auto) (0.0-0.4) X10*3/uL Baso # (Auto) (0.0-0.2) X10*3/uL Abs Immat Gran (auto) (0.00-0.03) X10*3/uL Absolute Neuts (auto) (2.0-8.3) x10*3/uL Absolute Nucleated RBC (0.0-0.012) X10*3/uL Nucleated RBC % (auto) (0.0-0.2) /100WBC Sodium (135-145) mmol/L Potassium (3.3-5.1) mmol/L Chloride (96-108) mmol/L Carbon Dioxide (22-29) mmol/L Anion Gap (12-20) BUN (9-16) mg/dL Creatinine (0.5-1.4) mg/dL Estim Creat Clear Calc Estimated GFR Random Glucose (60-115) mg/dL Calcium (8.4-10.2) mg/dL COVID-19 (EDWAR) Negative (Negative) COVID-19 Clin Com See Note Influenza Type A (DANTE) (Negative) Influenza Type B (DANTE) (Negative) Influenza A & B Note External Record Review External record reviewed: Inpatient record, Office record and Outpatient record Discharge Plan Discharge Clinical Impression: Medication adverse effect Patient Disposition: Home, Self-Care Additional Instructions: Rocío se alex? en el departamento de emergencias, no debe jarrett ninguna dosis adicional de venlafaxina hasta que hable con lopez proveedor de atenci?n primaria. Ll?melos esta semana para programar sabine yadi. Regrese al departamento de emergencias si presenta nuevas erupciones cut?neas, dificultad para respirar o tragar, hinchaz?n de labios/lengua/boca, v?mitos o cualquier otro s?ntoma preocupante. Prescriptions: No Action albuterol sulfate 90 mcg/actuation HFA aerosol inhaler 2 puff PO Q4H PRN (Reason: bronchospasm) 30 Days Qty: 8.5 6RF duloxetine 20 mg capsule,delayed release(DR/EC) 20 mg PO BID 30 Days Qty: 60 3RF cholecalciferol (vitamin D3) 50 mcg (2,000 unit) tablet 50 mcg PO DAILY 90 Days Qty: 90 1RF hydrochlorothiazide 25 mg tablet 25 mg PO DAILY 30 Days Qty: 30 11RF (DME) blood pressure monitor [Blood Pressure Kit] Kit See Rx Instructions .ROUTE .MEDSUPPLY Qty: 1 0RF Rx Instructions: As directed (DME) cane Device See Rx Instructions .Route Qty: 1 0RF Rx Instructions: As directed fluticasone propionate [Flonase Allergy Relief] 50 mcg/actuation spray,suspension 2 spray intranasal Q12H 30 Days Qty: 16 0RF Rx Instructions: administer into each nostril clonazepam 0.5 mg tablet 0.5 mg PO BEDTIME PRN (Reason: anxiety) 30 Days Qty: 60 0RF atorvastatin 20 mg tablet 20 mg PO BEDTIME 90 Days Qty: 90 0RF fenofibrate 54 mg tablet 54 mg PO DAILY 90 Days Qty: 90 1RF tramadol 50 mg tablet 50 mg PO BID PRN (Reason: severe pain (scale score 7-10)) 30 Days Qty: 60 0RF Combivent Respimat 20-100 mcg/actuation mist 1 puff PO QID 30 Days Qty: 25 1RF Patient Comments: Pulmo given acetaminophen 500 mg tablet 1,000 mg PO TID PRN (Reason: pain) Qty: 20 0RF potassium chloride 20 mEq tablet extended release 20 meq PO DAILY Qty: 30 0RF okjrzirxqf-rmgvakiirfgbe-zkwx [Fioricet] 50-300-40 mg capsule 1 cap PO Q8H PRN (Reason: pain) Qty: 20 0RF cyclobenzaprine 10 mg tablet 10 mg PO TID PRN (Reason: muscle spasm) Qty: 10 0RF loratadine 10 mg tablet 10 mg PO DAILY PRN (Reason: for allergies) 30 Days Qty: 30 1RF venlafaxine 37.5 mg capsule,extended release 24hr 37.5 mg PO BEDTIME 90 Days Qty: 90 0RF Print Language: Citizen [place]
[2023-02-17] MEDS: Famotidine 20 MG TABLET PO (09:15)
[2023-02-17 09:26] LABS: MANUAL DIFF FLAG NO
[2023-02-17 09:32] LABS: Basophils Absolute Auto 0.1 X10*3/uL (0.0-0.2); Basophils Percent Auto 0.9 % (0-2); Eosinophils Absolute Auto 0.1 X10*3/uL (0.0-0.4); Eosinophils Percent Auto 1.9 % (0-4); Hematocrit 36.5 % (37.0-47.0); Imm Gran Abs Auto 0.02 X10*3/uL (0.00-0.03); Imm Gran Pct Auto 0.3 % (0.0-0.4); Mean Corpuscular HGB Conc 32.9 g/dl (31.0-35.0); Mean Corpuscular Hemoglobin 26.7 pg (27.0-33.0); Mean Corpuscular Volume 81.1 fL (80.0-98.0); Mean Platelet Volume 10.2 fL (9.4-12.3); Monocytes Absolute Auto 0.5 X10*3/uL (0.1-1.2); Monocytes Percent Auto 7.1 % (2-11); Neutrophils Absolute Auto 4.7 x10*3/uL (2.0-8.3); Neutrophils Percent Auto 62.8 % (45-73); Platelet Count 294 X10*3/uL (160-400); Red Cell Distribution Width 13.7 % (11.0-16.0); White Blood Count 7.5 X10*3/uL (4.8-10.8)
[2023-02-17 09:51] LABS: Anion Gap 17 (12-20); Blood Urea Nitrogen 14 mg/dL (9-16); Calcium 10.1 mg/dL (8.4-10.2); Carbon Dioxide 25 mmol/L (22-29); Chloride 102 mmol/L (96-108); Creatinine Clr Calc Pharmacy 68.7; Estimated Glomerular Filt Rate > 60; Glucose Random 90 mg/dL (60-115); Potassium 3.5 mmol/L (3.3-5.1); Sodium 140 mmol/L (135-145)
[2023-02-17 10:05] VITALS: BP 146/88; PULSE 76; RESP 16; TEMP 36.7; O2SAT 100
[2023-02-17] MEDS: Albuterol Sulfate (0.083%) 2.5 MG/3 ML VIAL.NEB 5 MG INHALE (10:07)
[2023-02-17 10:08] VITALS: PULSE 69; RESP 18; O2SAT 97
[2023-02-17] MEDS: Acetaminophen 325 MG TABLET 975 MG PO (10:17)
[2023-02-17 11:14] LABS: COVID-19 Test Negative (Negative); IDNOW Serial# 08D9AD1C
[2023-02-17 11:16] LABS: IDNOW Serial# 9DB6401D; Influenza A Negative (Negative); Influenza B2 Negative (Negative)
[2023-02-17 12:58] VITALS: BP 136/71; PULSE 95; RESP 18; TEMP 36.6; O2SAT 98
== END 2023-02-17 15:00 | disposition home or self-care (01) ==
PROVIDERS: Registered Nurse Emergency; Emergency Provider Emergency Medicine; PCP Internal Medicine
DX: R51.9 Headache, unspecified (principal); L29.9 Pruritus, unspecified; T43.215A Adverse effect of selective serotonin and norepinephrine reuptake inhibitors, initial encounter; Y92.039 Unspecified place in apartment as the place of occurrence of the external cause; Z20.822 Contact with and (suspected) exposure to COVID-19; F41.9 Anxiety disorder, unspecified; R06.02 Shortness of breath; I10 Essential (primary) hypertension; E78.5 Hyperlipidemia, unspecified; F17.210 Nicotine dependence, cigarettes, uncomplicated
CPT/HCPCS: 36415; 80048; 85025; 87502; 87635; 94640; 99284

== ENCOUNTER 2023-02-28 18:20 | Emergency (ER) | payer OTHER, SELFPAY ==
[2023-02-28 18:44] VITALS: BP 131/92; PULSE 85; RESP 16; TEMP 36.8; O2SAT 98; BMI 28.3
--- NOTE | 2023-02-28 18:46 | ED.GENADULT ---
HPI - General Adult General Chief complaint: Dizziness Stated complaint: headaches, dizziness, L neck pain, Nausea Time Seen by Provider: 02/28/23 19:45 Source: patient Mode of arrival: ambulatory Limitations: no limitations History of Present Illness HPI narrative: Patient's history of TMJ syndrome fibromyalgia comes here for right-sided pain for last 3 -4 days same as in the past taking tramadol without much help has seen the dentist without much treatment no recent injury or fall Related Data Previous Rx's Medication Instructions Recorded albuterol sulfate 90 mcg/actuation 2 puff PO Q4H PRN bronchospasm 30 05/24/21 aerosol inhaler days #8.5 grams duloxetine 20 mg capsule,delayed 20 mg PO BID 30 days #60 caps 05/16/22 release cholecalciferol (vitamin D3) 50 50 mcg PO DAILY 90 days #90 tabs 05/17/22 mcg (2,000 unit) tablet hydrochlorothiazide 25 mg tablet 25 mg PO DAILY 30 days #30 tabs 09/02/22 blood pressure monitor (Blood #1 ea 09/06/22 Pressure Kit) cane #1 ea 09/06/22 loratadine 10 mg tablet 10 mg PO DAILY PRN for allergies 09/14/22 30 days #30 tabs acetaminophen 500 mg tablet 1,000 mg (2 x 500 mg) PO TID PRN 10/07/22 pain #20 tabs fluticasone propionate 50 2 spray intranasal Q12H 30 days 10/30/22 mcg/actuation nasal #16 grams spray,suspension (Flonase Allergy Relief) potassium chloride 20 mEq 20 meq PO DAILY #30 tabs 12/25/22 tablet,extended release clonazepam 0.5 mg tablet 0.5 mg PO BEDTIME PRN anxiety 30 01/08/23 days #60 tabs atorvastatin 20 mg tablet 20 mg PO BEDTIME 90 days #90 tabs 01/12/23 fenofibrate 54 mg tablet 54 mg PO DAILY 90 days #90 tabs 01/12/23 seyqjczqvz-jduqnzcwculch-diqmeuuc 1 cap PO Q8H PRN pain #20 caps 01/16/23 50 mg-300 mg-40 mg capsule (Fioricet) venlafaxine 37.5 mg 37.5 mg PO BEDTIME 90 days #90 caps 02/14/23 capsule,extended release 24 hr ipratropium 20 mcg-albuterol 100 1 puff PO QID 30 days #25 mL 02/16/23 mcg/actuation mist for inhalation (Combivent Respimat) fkplmzctdy-pfhrtcefnoxyg-yvgooejn 1 cap PO Q4-6H PRN headache #10 02/17/23 50 mg-300 mg-40 mg capsule caps (Fioricet) cyclobenzaprine 10 mg tablet 10 mg PO TID PRN muscle spasm #10 02/27/23 tabs tramadol 50 mg tablet 50 mg PO BID PRN severe pain 02/27/23 (scale score 7-10) 30 days #60 tabs oxycodone 5 mg tablet 5 mg PO Q6H PRN pain #20 tabs 02/28/23 Allergies Allergy/AdvReac Type Severity Reaction Status Date / Time amitriptyline Allergy Intermediate headache Verified 02/14/23 13:20 ibuprofen [From Motrin] Allergy Intermediate ITCHY RASH Verified 02/14/23 13:20 gabapentin AdvReac Intermediate vomiting Verified 02/14/23 13:20 Review of Systems Review of Systems: Yes all other systems are reviewed and are negative [facility] Past Medical History Medical History Acute maxillary sinusitis Otitis externa Hospital discharge follow-up Microscopic hematuria Physical exam Goiter Blurry vision Tobacco dependence Has daytime drowsiness Pulmonary nodules Moderate recurrent major depression Dyspnea Hand pain Skin lesion Leg pain, bilateral Dyslipidemia Epigastric pain Essential hypertension Cervical cancer screening GERD (gastroesophageal reflux disease) HTN (hypertension) Migraine Anxiety Depression Right lower quadrant pain Fibromyalgia Surgical History History of breast lump/mass excision History of lithotripsy H/O LEEP H/O tubal ligation Family History Family History Father Myocardial infarction Mother Lung cancer Brother Liver cancer Maternal Grandfather Stomach cancer Maternal Grandmother No problems noted. Social History Social History Housing: Apartment Alcohol intake: never Patient Tobacco Use Status: Current someday Tobacco user Tobacco use type: Cigarette Cigarettes Per Day: 3 e-Cigarette/Vaping Use: Never Used Second Hand Smoke Exposure: No Advance Directives: No Advance Directives Information Provided: Yes service: No Current occupational status: disabled Gender identity: Female Cognitive needs: No Hearing needs: No Vision needs: No Physical Exam ED Vital Signs: Vital Signs - 24 hr 02/28/23 18:44 Temperature 98.2 F Pulse Rate 85 Respiratory Rate 16 Blood Pressure 131/92 H Pulse Oximetry 98 Oxygen Delivery Method Room Air BMI result Body Mass Index 28.3 Appearance: Alert. Oriented X3. No acute distress. Eyes: PERRLA, No Nystagmus ENT: Pharynx normal. Oral Mucosa moist no temporal artery tenderness diffuse tenderness over TMJ area and right scalp Neck: Normal inspection. Neck supple. CVS: Normal heart rate and rhythm. Pulses normal. Respiratory: No respiratory distress. Equal air entry bilateral, no wheezing/rales/rhonchi Abdomen: Soft and nontender. Bowel sounds are present, no mass palpable, no CVA tenderness Skin: Skin warm and dry. Normal skin color. Normal skin turgor. Extremities: No lower extremity edema. No calf tenderness Neuro: Oriented X 3. No motor deficit. No sensory deficit.No cerebellar signs , cranial nerves II-XII intact Course Course Course Narrative: RME- 52 year old female presents for evaluation of headaches, neck pain and dizziness. She has a history of chornic headaches and was referred by PCP for MRI and neurology. No neuro deficits in triage Medications Administered Discontinued Medications Generic Name Dose Route Start Last Admin Trade Name Freq PRN Reason Stop Dose Admin Oxycodone HCl 10 mg 02/28/23 20:11 02/28/23 20:19 Oxycodone Hcl Immed Release 5 Mg Tablet PO 02/28/23 20:12 10 mg ONCE ONE Administration Medical Decision Making Medical Decision Making [facility] Narrative: Patient fibromyalgia/TMJ syndrome discharge patient home on oxycodone advised to follow with PCP Discharge Plan Discharge Clinical Impression: Persistent headaches, TMJ pain dysfunction syndrome Patient Disposition: Home, Self-Care Instructions: Temporomandibular Disorder (ED), General Headache (ED) Additional Instructions: Continue medications as prescribed before Take oxycodone for severe TMJ pain Prescriptions: New oxycodone 5 mg tablet 5 mg PO Q6H PRN (Reason: pain) Qty: 20 0RF Rx Instructions: Partial Fill upon patient request. No Action albuterol sulfate 90 mcg/actuation HFA aerosol inhaler 2 puff PO Q4H PRN (Reason: bronchospasm) 30 Days Qty: 8.5 6RF duloxetine 20 mg capsule,delayed release(DR/EC) 20 mg PO BID 30 Days Qty: 60 3RF cholecalciferol (vitamin D3) 50 mcg (2,000 unit) tablet 50 mcg PO DAILY 90 Days Qty: 90 1RF hydrochlorothiazide 25 mg tablet 25 mg PO DAILY 30 Days Qty: 30 11RF (DME) blood pressure monitor [Blood Pressure Kit] Kit See Rx Instructions .ROUTE .MEDSUPPLY Qty: 1 0RF Rx Instructions: As directed (DME) cane Device See Rx Instructions .Route Qty: 1 0RF Rx Instructions: As directed fluticasone propionate [Flonase Allergy Relief] 50 mcg/actuation spray,suspension 2 spray intranasal Q12H 30 Days Qty: 16 0RF Rx Instructions: administer into each nostril clonazepam 0.5 mg tablet 0.5 mg PO BEDTIME PRN (Reason: anxiety) 30 Days Qty: 60 0RF atorvastatin 20 mg tablet 20 mg PO BEDTIME 90 Days Qty: 90 0RF fenofibrate 54 mg tablet 54 mg PO DAILY 90 Days Qty: 90 1RF Combivent Respimat 20-100 mcg/actuation mist 1 puff PO QID 30 Days Qty: 25 1RF Patient Comments: Pulmo given tramadol 50 mg tablet 50 mg PO BID PRN (Reason: severe pain (scale score 7-10)) 30 Days Qty: 60 0RF cyclobenzaprine 10 mg tablet 10 mg PO TID PRN (Reason: muscle spasm) Qty: 10 0RF acetaminophen 500 mg tablet 1,000 mg PO TID PRN (Reason: pain) Qty: 20 0RF potassium chloride 20 mEq tablet extended release 20 meq PO DAILY Qty: 30 0RF zhbjxihutd-igjvrfdxuyxlm-fhsg [Fioricet] 50-300-40 mg capsule 1 cap PO Q8H PRN (Reason: pain) Qty: 20 0RF scprhkafqq-msxfhqatqnwua-qgqe [Fioricet] 50-300-40 mg capsule 1 cap PO Q4-6H PRN (Reason: headache) Qty: 10 0RF loratadine 10 mg tablet 10 mg PO DAILY PRN (Reason: for allergies) 30 Days Qty: 30 1RF venlafaxine 37.5 mg capsule,extended release 24hr 37.5 mg PO BEDTIME 90 Days Qty: 90 0RF Interventions: ED Discharge Assessment Last Done: 02/28/23 20:22 Discharge Date/Time: 02/28/23 20:22
[2023-02-28] MEDS: oxyCODONE HCl Immed Release 5 MG TABLET 10 MG PO (20:19)
--- NOTE | 2023-02-28 20:21 | PC.NURSE ---
pt medicated per AUG for 10 headache pain
== END 2023-02-28 20:22 | disposition home or self-care (01) ==
PROVIDERS: Emergency Provider Internal Medicine; PCP Internal Medicine
DX: R42 Dizziness and giddiness (principal); M54.2 Cervicalgia; M79.7 Fibromyalgia; R51.9 Headache, unspecified; M26.609 Unspecified temporomandibular joint disorder, unspecified side; F17.210 Nicotine dependence, cigarettes, uncomplicated; Z79.899 Other long term (current) drug therapy; Z71.6 Tobacco abuse counseling
CPT/HCPCS: 99283

== ENCOUNTER 2023-03-28 13:42 | Outpatient (AMB) | payer OTHER, SELFPAY ==
[2023-03-28 13:56] VITALS: BP 96/82; PULSE 106; O2SAT 97; BMI 27.4
--- NOTE | 2023-03-28 13:56 | A.OFFPC_ITS ---
Vital Signs 03/28/23 13:56 Height 5 ft 1 in Weight 145 lb 0.8 oz BMI 27.4 BP 96/82 Blood Pressure Location Lt brachial Position Sitting Pulse 106 H Pulse Source Pulse Oximeter Temp Source Skin Pulse Oximetry (%) 97 Oxygen Delivery Method Room Air Intake Visit Reasons: jaw pain/ [facility] [place] [id number] Intake Note: Patient is here to follow-up after a visit the emergency department at [facility] on 02/28/23 for jaw pain. 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 Allergies amitriptyline Allergy (Intermediate, Verified 03/28/23 14:16) headache ibuprofen [From Motrin] Allergy (Intermediate, Verified 03/28/23 14:16) ITCHY RASH gabapentin Adverse Reaction (Intermediate, Verified 03/28/23 14:16) vomiting Medication List - Last Reconciled 03/28/23 by MESSI Vaz acetaminophen 1,000 mg (2 x 500 mg) PO TID PRN albuterol sulfate 90 mcg/actuation 2 puffs PO Q4H PRN 30 days atorvastatin 20 mg PO BEDTIME 90 days blood pressure monitor (Blood Pressure Kit) As directed ubxovbfbgh-nkmaitrvhspif-uvgu 50-300-40 mg (Fioricet) 1 cap PO Q8H PRN cchkeslbbc-rbdlzxpqjdtpi-jqce 50-300-40 mg (Fioricet) 1 cap PO Q4-6H PRN cane As directed cholecalciferol (vitamin D3) 50 mcg PO DAILY 90 days clonazepam 0.5 mg PO BEDTIME PRN 30 days cyclobenzaprine 10 mg PO TID PRN duloxetine 20 mg PO BID 30 days fenofibrate 54 mg PO DAILY 90 days fluticasone propionate 50 mcg/actuation (Flonase Allergy Relief) 2 sprays intranasal Q12H 30 days hydrochlorothiazide 25 mg PO DAILY 30 days ipratropium-albuterol 20-100 mcg/actuation (Combivent Respimat) 1 puff PO QID 30 days loratadine 10 mg PO DAILY PRN 30 days potassium chloride ER 20 mEq PO DAILY tramadol 50 mg PO BID PRN 30 days venlafaxine ER 37.5 mg PO BEDTIME 90 days Tobacco use date assessed: 03/28/23 HPI jaw pain/ [facility] ed [id number] HPI Details Patient is a 52-year-old female who presents today to follow-up after [place] [facility] visit 02/28/2023 due to right-sided face pain. Patient of Dr. Davila. Per ED notes: Patient's history of TMJ syndrome fibromyalgia comes here for right-sided pain for last 3 -4 days same as in the past taking tramadol without much help has seen the dentist without much treatment no recent injury or fall 52 year old female presents for evaluati on of headaches, neck pain and dizziness. She has a history of chornic headaches and was referred by PCP for MRI and neurology. No neuro deficits in triage Patient fibromyalgia/TMJ syndrome discharge patient home on oxycodone advised to follow with PCP Today, patient reports that oxycodone was helping with pain, she has finished oxycodone. Patient reports that she saw her dentist 2 weeks ago and they could not help her, patient will be calling to see another dentist due to TMJ pain right side. Patient reports taking tramadol and Tylenol with no much improvement in pain. No shortness of breath or chest pain. Reports ongoing headaches, she will be having MRI and will be seeing Neurology 04/20/2023. Patient is a Com[place]-speaking and her daughter was helping with interpretation. [facility] Medical History Acute maxillary sinusitis Otitis externa Hospital discharge follow-up Microscopic hematuria Physical exam Goiter Blurry vision Tobacco dependence Has daytime drowsiness Pulmonary nodules Moderate recurrent major depression Dyspnea Hand pain Skin lesion Leg pain, bilateral Dyslipidemia Epigastric pain Essential hypertension Cervical cancer screening GERD (gastroesophageal reflux disease) HTN (hypertension) Migraine Anxiety Depression Right lower quadrant pain Fibromyalgia Surgical History History of breast lump/mass excision History of lithotripsy H/O LEEP H/O tubal ligation Family History Father Myocardial infarction Mother Lung cancer Brother Liver cancer Maternal Grandfather Stomach cancer Maternal Grandmother No problems noted. Social History Housing: Apartment Alcohol intake: never Patient Tobacco Use Status: Current someday Tobacco user Tobacco use type: Cigarette Cigarettes Per Day: 3 e-Cigarette/Vaping Use: Never Used Second Hand Smoke Exposure: No service: No Current occupational status: disabled Gender identity: Female Cognitive needs: No Hearing needs: No Vision needs: No Female Reproductive History Menstrual Age of Menarche: 9 Questionnaire Thrive Questionnaire Date Thrive assessed: 06/20/22 AUDIT C Alcohol Use Questionnaire (AUDIT-C) 1. How often do you have a drink containing alcohol?: Monthly or less 2. How many drinks containing alcohol do you have on a typical day when you are drinking?: 1 or 2 3. How often do you have six or more drinks on one occasion?: Never Total Score: 1 Score Reviewed/Action Taken: No JOHN-7 AMB Questionnaire JOHN-7 Date JOHN - 7 assessed: 06/20/22 Source: Developed by Drs. Sylvester Merlos, Eve Mcclelland, Joby King and colleagues, with an educational pili from [employer]. Review of Systems Const Denies body aches, Denies chills, Denies fever(s) and Reports headache(s) ENT Reports as per HPI, Denies dizziness, Reports headache(s), Denies nasal discharge, Denies sinus pain and Denies sore throat Card Denies chest pain, Denies edema, Denies lightheadedness and Denies dyspnea Resp Denies cough and Denies dyspnea GI Denies abdominal pain Denies dysuria Musc Denies myalgias and Reports arthralgias Skin/Breast Denies rash Neuro Denies dizziness and Reports headache(s) Physical exam (Primary Care) Vital Signs: Last Vital Signs Pulse 106 H 03/28/23 13:56 BP 96/82 03/28/23 13:56 Pulse Ox 97 03/28/23 13:56 Oxygen Delivery Method Room Air 03/28/23 13:56 BMI result Body Mass Index 27.4 Tobacco/Smoking Status: Tobacco use Status Tobacco use date assessed 03/28/23 03/28/23 13:58 Patient Tobacco Use Status Current someday Tobacco 03/28/23 13:58 Tobacco use type Cigarette 03/28/23 13:58 e-Cigarette/Vaping Use Never Used 03/28/23 13:58 Thrive Assessment: Date of Thrive Assessment Date Thrive assessed 06/20/22 03/28/23 13:58 Const General: cooperative and no acute distress Orientation/consciousness: patient oriented x3 HENMT Head: Yes normocephalic and Yes atraumatic Ears: TM's normal bilaterally Face and sinus: Yes sinuses nontender Mouth: Normal oral and palatal mucosa present, oropharynx normal and other (Tenderness over right TMJ) Throat: Yes posterior oropharynx normal Eyes General: appearance normal, both eyes and all related structures Pupils: Equal, round and reactive pupils present EOM: EOMs intact bilaterally Neck Neck: Yes normal visual inspection, Yes full ROM and Yes no lymphadenopathy Resp Effort & Inspection: normal respiratory effort and able to speak in complete sentences Auscultation: clear to auscultation bilaterally, no crackles, no rales, no rhonchi and no wheezes Cardio Rate: regular rate Rhythm: regular rhythm Heart sounds: S1 normal heart sound present and S2 normal heart sound present GI Auscultation: normal bowel sounds Skin Lesions: no lesions Neuro General: patient oriented x3, moves all extremities and CN's II-XI intact bilaterally Cranial nerves: Yes Equal, round and reactive pupils present Motor exam (neuro): 5/5 motor strength present throughout Extrem General: Yes full ROM Assessment and Plan Assessment & Plan (1) TMJ (temporomandibular joint disorder): Code(s): M26.609 - Unspecified temporomandibular joint disorder, unspecified side Plan: Will refer to pain management for an evaluation and treatment Patient would like to hold off on physical therapy referral until seen by pain management Patient also reports that she will be calling to see new dentist in regards to TMJ pain Will treat with prednisone 20 mg daily for 5 days Patient is to continue cyclobenzaprine p.r.n., Tylenol p.r.n. and tramadol p.r.n. as ordered Signs and symptoms reviewed when to notify provider or go to the emergency department Plan Keep appointment with PCP as scheduled or follow-up sooner as needed. Patient agreed with the plan. Orders: Referrals Pain Management Referral M26.609 - Unspecified temporomandibular joint disorder, unspecified side Medications: New prednisone 20 mg PO DAILY 5 tabs 0RF M26.609 - Unspecified temporomandibular joint disorder, unspecified side Refilled cholecalciferol (vitamin D3) 50 mcg PO DAILY 90 days 90 tabs 1RF Coding Level of Care Code Est Pt Level 3 (40512) Diagnoses TMJ (temporomandibular joint disorder) M26.609
== END 2023-03-28 14:39 | disposition home or self-care (01) ==
PROVIDERS: PCP Internal Medicine; Visit Provider Nurse Practitioner Family
DX: M26.601 Right temporomandibular joint disorder, unspecified (principal); F41.9 Anxiety disorder, unspecified; F17.210 Nicotine dependence, cigarettes, uncomplicated
CPT/HCPCS: 99213

== ENCOUNTER 2023-04-05 11:22 | Outpatient (REF) | payer OTHER, SELFPAY ==
[2023-04-05 11:38] LABS: MANUAL DIFF FLAG NO
[2023-04-05 12:00] LABS: Basophils Absolute Auto 0.1 X10*3/uL (0.0-0.2); Basophils Percent Auto 0.8 % (0-2); Eosinophils Absolute Auto 0.2 X10*3/uL (0.0-0.4); Eosinophils Percent Auto 2.3 % (0-4); Hematocrit 39.8 % (37.0-47.0); Imm Gran Abs Auto 0.02 X10*3/uL (0.00-0.03); Imm Gran Pct Auto 0.2 % (0.0-0.4); Lymphocytes Absolute Auto 3.2 X10*3/uL (1.2-4.9); Lymphocytes Percent Auto 35.5 % (20-40); Mean Corpuscular HGB Conc 32.7 g/dl (31.0-35.0); Mean Corpuscular Hemoglobin 27.4 pg (27.0-33.0); Mean Platelet Volume 10.6 fL (9.4-12.3); Monocytes Absolute Auto 0.6 X10*3/uL (0.1-1.2); Monocytes Percent Auto 6.1 % (2-11); Neutrophils Percent Auto 55.1 % (45-73); Platelet Count 312 X10*3/uL (160-400); Red Blood Count 4.74 X10*6/uL (4.20-5.50); Red Cell Distribution Width 14.4 % (11.0-16.0); White Blood Count 9.1 X10*3/uL (4.8-10.8)
[2023-04-05 14:06] LABS: Iron 68 mcg/dL (30-160); Percent Iron Saturation 29 % (15-50); Potassium 3.4 mmol/L (3.3-5.1); Total Iron Binding Capacity 231 mcg/dL (228-428); Unsaturated Iron Binding 163 ug/dL
== END 2023-04-05 11:23 | disposition home or self-care (01) ==
LOC: HO.LAB 11:22
PROVIDERS: PCP Internal Medicine; Visit Provider Internal Medicine
DX: D64.9 Anemia, unspecified (principal); E87.6 Hypokalemia
CPT/HCPCS: 36415; 83540; 84132; 85025

== ENCOUNTER 2023-04-08 17:55 | Emergency (ER) | payer OTHER, SELFPAY ==
--- NOTE | ~2023-04-08 | XR_ITS ---
EXAMINATION: XR CHEST, 2 VIEWS CLINICAL INFORMATION: Chest pain. COMPARISON: 10/07/2022 TECHNIQUE: PA and lateral views of the chest were obtained. FINDINGS: Calcified granuloma is present in the lateral aspect of the right midlung. No consolidation, pneumothorax, or pleural effusion. Cardiac and mediastinal contours are normal. Pulmonary vasculature is unremarkable. Trachea is midline. Osseous structures are unremarkable. XR/XR chest 2V IMPRESSION: No acute cardiopulmonary findings.
--- NOTE | 2023-04-08 17:56 | ED_ITS ---
HPI - General Adult General Chief complaint: General Medical Stated complaint: headache , dizzy, nausea, chest pain Time Seen by Provider: 04/08/23 20:52 Source: patient, RN notes reviewed and old records reviewed Mode of arrival: ambulatory Limitations: no limitations History of Present Illness HPI narrative: 52-year-old female with past medical history significant for hypertension, fibromyalgia, TMJ presents for evaluation of headache, right-sided facial pain. 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 She had physical therapy for her TMJ yesterday She reports worsening right-sided facial pain. She states that she is not getting any medications except for Tylenol She states that the pain is radiating up her head and causing a migraine headache She reports that she felt dizzy earlier like she was going to pass out Related Data Previous Rx's Medication Instructions Recorded albuterol sulfate 90 mcg/actuation 2 puff PO Q4H PRN bronchospasm 30 05/24/21 aerosol inhaler days #8.5 grams duloxetine 20 mg capsule,delayed 20 mg PO BID 30 days #60 caps 05/16/22 release hydrochlorothiazide 25 mg tablet 25 mg PO DAILY 30 days #30 tabs 09/02/22 blood pressure monitor (Blood #1 ea 09/06/22 Pressure Kit) cane #1 ea 09/06/22 loratadine 10 mg tablet 10 mg PO DAILY PRN for allergies 09/14/22 30 days #30 tabs acetaminophen 500 mg tablet 1,000 mg (2 x 500 mg) PO TID PRN 10/07/22 pain #20 tabs fluticasone propionate 50 2 spray intranasal Q12H 30 days 10/30/22 mcg/actuation nasal #16 grams spray,suspension (Flonase Allergy Relief) potassium chloride 20 mEq 20 meq PO DAILY #30 tabs 12/25/22 tablet,extended release atorvastatin 20 mg tablet 20 mg PO BEDTIME 90 days #90 tabs 01/12/23 fenofibrate 54 mg tablet 54 mg PO DAILY 90 days #90 tabs 01/12/23 gempemqqcg-mtypbtniuzlbu-pfudbxuc 1 cap PO Q8H PRN pain #20 caps 01/16/23 50 mg-300 mg-40 mg capsule (Fioricet) venlafaxine 37.5 mg 37.5 mg PO BEDTIME 90 days #90 caps 02/14/23 capsule,extended release 24 hr ipratropium 20 mcg-albuterol 100 1 puff PO QID 30 days #25 mL 02/16/23 mcg/actuation mist for inhalation (Combivent Respimat) nhtkgheyea-ykkemovodfwal-inalpoxl 1 cap PO Q4-6H PRN headache #10 02/17/23 50 mg-300 mg-40 mg capsule caps (Fioricet) cyclobenzaprine 10 mg tablet 10 mg PO TID PRN muscle spasm #10 02/27/23 tabs cholecalciferol (vitamin D3) 50 50 mcg PO DAILY 90 days #90 tabs 03/28/23 mcg (2,000 unit) tablet prednisone 20 mg tablet 20 mg PO DAILY #5 tabs 03/28/23 underpads (Bed Underpads) #100 ea 03/28/23 walker #1 ea 03/28/23 clonazepam 0.5 mg tablet 0.5 mg PO BEDTIME PRN anxiety 30 04/01/23 days #60 tabs tramadol 50 mg tablet 50 mg PO BID PRN severe pain 04/03/23 (scale score 7-10) 30 days #60 tabs tramadol 50 mg tablet 50 mg PO TID PRN severe pain 04/08/23 (scale score 7-10) #12 tabs Allergies Allergy/AdvReac Type Severity Reaction Status Date / Time amitriptyline Allergy Intermediate headache Verified 03/28/23 14:16 ibuprofen [From Motrin] Allergy Intermediate ITCHY RASH Verified 03/28/23 14:16 gabapentin AdvReac Intermediate vomiting Verified 03/28/23 14:16 Review of Systems 2 Constitutional: Constitutional: Denies chills, Denies fever(s) and Reports headache(s) Eyes: Eyes: Denies blurry vision ENT: Reports headache(s) and Denies sore throat Cardiovascular: Cardiovascular: Reports chest pain and Denies dyspnea Respiratory: Respiratory: Denies cough and Denies dyspnea Gastrointestinal: Gastrointestinal: Denies abdominal pain, Denies nausea and Denies vomiting Musculoskeletal: Musculoskeletal: Denies back pain, Denies numbness and Denies tingling Integumentary/Breasts: Skin/Breast: Denies rash Neurologic: Reports headache(s), Denies numbness and Denies tingling PMFSH Past Medical History Medical History Acute maxillary sinusitis Otitis externa Hospital discharge follow-up Microscopic hematuria Physical exam Goiter Blurry vision Tobacco dependence Has daytime drowsiness Pulmonary nodules Moderate recurrent major depression Dyspnea Hand pain Skin lesion Leg pain, bilateral Dyslipidemia Epigastric pain Essential hypertension Cervical cancer screening GERD (gastroesophageal reflux disease) HTN (hypertension) Migraine Anxiety Depression Right lower quadrant pain Fibromyalgia Surgical History History of breast lump/mass excision History of lithotripsy H/O LEEP H/O tubal ligation Family History Family History Father Myocardial infarction Mother Lung cancer Brother Liver cancer Maternal Grandfather Stomach cancer Maternal Grandmother No problems noted. Social History Social History Housing: Apartment Alcohol intake: never Patient Tobacco Use Status: Current someday Tobacco user Tobacco use type: Cigarette Cigarettes Per Day: 3 e-Cigarette/Vaping Use: Never Used Second Hand Smoke Exposure: No Advance Directives: No Advance Directives Information Provided: No service: No Current occupational status: disabled Gender identity: Female Cognitive needs: No Hearing needs: No Vision needs: No Physical Exam ED Vital Signs: Vital Signs - 24 hr 04/08/23 17:57 04/08/23 20:57 Temperature 97.3 F 97.8 F Pulse Rate 104 H 82 Respiratory Rate 18 14 Blood Pressure 146/96 H 155/89 H Pulse Oximetry 96 98 Oxygen Delivery Method Room Air Room Air BMI result Body Mass Index 27.7 Const General: healthy appearing, comfortable, no acute distress, alert and awake Nutritional Appearance: well nourished Orientation/consciousness: patient oriented x3 HENMT Head: Yes normocephalic and Yes atraumatic Ears: external ears normal, TM's normal bilaterally and EAC's normal Eyes Eyelids: Yes eyelids normal Conjunctivae: conjunctivae normal Sclerae: sclerae normal Corneas: corneas normal Pupils: Equal, round and reactive pupils present EOM: EOMs intact bilaterally Neck Neck: Yes full ROM Resp Effort & Inspection: normal respiratory effort, able to speak in complete sentences and not labored Cardio Rate: regular rate Rhythm: regular rhythm GI Inspection: No distended Palpation (GI): Soft to palpation, not firm, nontender, no guarding and not rigid Skin General skin exam: elasticity normal Neuro General: patient oriented x3 Cranial nerves: Yes CN's II-XII intact bilaterally, Yes Equal, round and reactive pupils present and Yes Bilaterally intact EOM present Cognition (Neuro): normal cognition Extrem Other: Moving all extremities well without any obvious deformities Course Course Course Narrative: This is a rapid medical exam: Additional HPI, ROS, PE not included below will be deferred to primary provider. Patient is a 52-year-old female with history of HTN, GERD, migraines, fibromyalgia, anxiety, depression presenting to the emergency department with complaint of headache which began yesterday. Today has chest pain, nausea, and dizziness. States chest pain began around 5pm. Denies vision changes but reports right ear pain. States she took Tylenol without relief. Plan: EKG, CXR, labs Reevaluation(s) Reevaluation #1: Patient reports feeling better, she is requesting discharge at this time. Time: 21:38 Medications Administered Discontinued Medications Generic Name Dose Route Start Last Admin Trade Name Horacio PRN Reason Stop Dose Admin Acetaminophen/Butalbital/Caffeine 1 tab 04/08/23 21:08 04/08/23 21:20 Butalb/Acetamin/Caff 50/325/40 Tablet PO 04/08/23 21:09 1 tab ONCE ONE Administration Morphine Sulfate 4 mg 04/08/23 21:14 04/08/23 21:20 Morphine Sulfate 4 Mg/Ml Cartridge IM 04/08/23 21:15 4 mg ONCE ONE Administration Protocol Potassium Chloride 40 meq 04/08/23 21:08 04/08/23 21:19 Potassium Chloride Packet 20 Meq Packet PO 04/08/23 21:09 40 meq ONCE ONE Administration Medical Decision Making Medical Decision Making [facility] Narrative: The 2-year-old female presents for evaluation of right-sided facial pain, headache pain she has a diagnosed history of TMJ which is the likely cause of her symptoms. She has no neuro deficits. I did not see any indication for emergent imaging of her head. During. She had an EKG which is also reassuring. The patient is stable for discharge to follow-up with her outpatient provider. Will treat her pain prior to discharge Differential Diagnosis Differential Diagnoses: The differential diagnosis associated with the presentation includes TMJ pain migraine headache Chest pain ACS less likely Hypokalemia Lab Data MDM Lab Attestation statement: I reviewed the patient's lab results. No leukocytosis, no anemia. Patient does have a hypokalemia of 3.0 which he has had in the past. We will treat this orally as she has not actually vomiting. Normal renal function. No other left abnormality 04/08/23 18:07 04/08/23 18:07 Labs: Lab Results 04/08/23 Range/Units 18:07 WBC 7.5 (4.8-10.8) X10*3/uL RBC 4.69 (4.20-5.50) X10*6/uL Hgb 12.5 (12.0-16.0) g/dl Hct 38.3 (37.0-47.0) % MCV 81.7 (80.0-98.0) fL MCH 26.7 L (27.0-33.0) pg MCHC 32.6 (31.0-35.0) g/dl RDW 14.1 (11.0-16.0) % Plt Count 277 (160-400) X10*3/uL MPV 9.9 (9.4-12.3) fL Immature Gran % (Auto) 0.3 (0.0-0.4) % Neut % (Auto) 63.1 (45-73) % Lymph % (Auto) 29.2 (20-40) % Randolph % (Auto) 4.8 (2-11) % Eos % (Auto) 1.9 (0-4) % Baso % (Auto) 0.7 (0-2) % Lymph # (Auto) 2.2 (1.2-4.9) X10*3/uL Randolph # (Auto) 0.4 (0.1-1.2) X10*3/uL Eos # (Auto) 0.1 (0.0-0.4) X10*3/uL Baso # (Auto) 0.1 (0.0-0.2) X10*3/uL Abs Immat Gran (auto) 0.02 (0.00-0.03) X10*3/uL Absolute Neuts (auto) 4.7 (2.0-8.3) x10*3/uL Absolute Nucleated RBC 0.000 (0.0-0.012) X10*3/uL Nucleated RBC % (auto) 0.0 (0.0-0.2) /100WBC Sodium 142 (135-145) mmol/L Potassium 3.0 L (3.3-5.1) mmol/L Chloride 103 (96-108) mmol/L Carbon Dioxide 24 (22-29) mmol/L Anion Gap 18 (12-20) BUN 14 (9-16) mg/dL Creatinine 0.84 (0.5-1.4) mg/dL Estim Creat Clear Calc 66.8 Estimated GFR > 60 Random Glucose 161 H (60-115) mg/dL Calcium 10.2 (8.4-10.2) mg/dL Total Bilirubin 0.5 (0.0-1.0) mg/dL AST 16 (5-31) U/L ALT 16 (0-31) U/L Alkaline Phosphatase 107 (39-117) U/L Troponin I High Sens < 2.7 (<3.5-17.0) ng/L Total Protein 7.7 (6.5-8.0) g/dL Albumin 4.2 (3.5-5.0) g/dL Beta HCG, Quant 8 mIU/mL Discharge Plan Discharge Clinical Impression: TMJ arthralgia Patient Disposition: Home, Self-Care Instructions: Temporomandibular Disorder (ED) Additional Instructions: Your workup in the emergency department today was reassuring. Follow-up with your outpatient providers. You may continue to use Tylenol for pain You may use tramadol for more severe, breakthrough pain. This may make you sleepy, did not drink alcohol or drive after taking Prescriptions: New tramadol 50 mg tablet 50 mg PO TID PRN (Reason: severe pain (scale score 7-10)) Qty: 12 0RF No Action albuterol sulfate 90 mcg/actuation HFA aerosol inhaler 2 puff PO Q4H PRN (Reason: bronchospasm) 30 Days Qty: 8.5 6RF duloxetine 20 mg capsule,delayed release(DR/EC) 20 mg PO BID 30 Days Qty: 60 3RF hydrochlorothiazide 25 mg tablet 25 mg PO DAILY 30 Days Qty: 30 11RF (DME) blood pressure monitor [Blood Pressure Kit] Kit See Rx Instructions .ROUTE .MEDSUPPLY Qty: 1 0RF Rx Instructions: As directed (DME) cane Device See Rx Instructions .Route Qty: 1 0RF Rx Instructions: As directed fluticasone propionate [Flonase Allergy Relief] 50 mcg/actuation spray,suspension 2 spray intranasal Q12H 30 Days Qty: 16 0RF Rx Instructions: administer into each nostril atorvastatin 20 mg tablet 20 mg PO BEDTIME 90 Days Qty: 90 0RF fenofibrate 54 mg tablet 54 mg PO DAILY 90 Days Qty: 90 1RF Combivent Respimat 20-100 mcg/actuation mist 1 puff PO QID 30 Days Qty: 25 1RF Patient Comments: Pulmo given cyclobenzaprine 10 mg tablet 10 mg PO TID PRN (Reason: muscle spasm) Qty: 10 0RF (DME) walker Misc See Rx Instructions .Route Qty: 1 0RF Rx Instructions: To be use lifetime (DME) underpads [Bed Underpads] Pad See Rx Instructions .Route Qty: 100 0RF Rx Instructions: As directed clonazepam 0.5 mg tablet 0.5 mg PO BEDTIME PRN (Reason: anxiety) 30 Days Qty: 60 0RF tramadol 50 mg tablet 50 mg PO BID PRN (Reason: severe pain (scale score 7-10)) 30 Days Qty: 60 0RF acetaminophen 500 mg tablet 1,000 mg PO TID PRN (Reason: pain) Qty: 20 0RF potassium chloride 20 mEq tablet extended release 20 meq PO DAILY Qty: 30 0RF ghyhsulauw-fulwmttcwiaqo-dace [Fioricet] 50-300-40 mg capsule 1 cap PO Q8H PRN (Reason: pain) Qty: 20 0RF ckaqubklfe-wawzbwsumjmui-unqo [Fioricet] 50-300-40 mg capsule 1 cap PO Q4-6H PRN (Reason: headache) Qty: 10 0RF prednisone 20 mg tablet 20 mg PO DAILY Qty: 5 0RF cholecalciferol (vitamin D3) 50 mcg (2,000 unit) tablet 50 mcg PO DAILY 90 Days Qty: 90 1RF loratadine 10 mg tablet 10 mg PO DAILY PRN (Reason: for allergies) 30 Days Qty: 30 1RF venlafaxine 37.5 mg capsule,extended release 24hr 37.5 mg PO BEDTIME 90 Days Qty: 90 0RF
[2023-04-08 17:57] VITALS: BP 146/96; PULSE 104; RESP 18; TEMP 36.3; O2SAT 96; BMI 27.7
--- NOTE | 2023-04-08 17:59 | ECG_ITS ---
Test Reason : chest pain Blood Pressure : / mmHG Vent. Rate : 094 BPM Atrial Rate : 094 BPM P-R Int : 132 ms QRS Dur : 076 ms QT Int : 348 ms P-R-T Axes : 050 015 006 degrees QTc Int : 435 ms Normal sinus rhythm Nonspecific ST abnormality Abnormal ECG When compared with ECG of 24-DEC-2022 22:31, No significant change was found Referred By: Yessenia Bowens Electronically Signed By:DRE GALEANA MD
[2023-04-08 18:12] LABS: MANUAL DIFF FLAG NO
[2023-04-08 18:13] LABS: Basophils Absolute Auto 0.1 X10*3/uL (0.0-0.2); Basophils Percent Auto 0.7 % (0-2); Eosinophils Absolute Auto 0.1 X10*3/uL (0.0-0.4); Eosinophils Percent Auto 1.9 % (0-4); Hematocrit 38.3 % (37.0-47.0); Hemoglobin 12.5 g/dl (12.0-16.0); Imm Gran Abs Auto 0.02 X10*3/uL (0.00-0.03); Imm Gran Pct Auto 0.3 % (0.0-0.4); Lymphocytes Absolute Auto 2.2 X10*3/uL (1.2-4.9); Lymphocytes Percent Auto 29.2 % (20-40); Mean Corpuscular HGB Conc 32.6 g/dl (31.0-35.0); Mean Corpuscular Hemoglobin 26.7 pg (27.0-33.0); Mean Corpuscular Volume 81.7 fL (80.0-98.0); Mean Platelet Volume 9.9 fL (9.4-12.3); Monocytes Absolute Auto 0.4 X10*3/uL (0.1-1.2); Monocytes Percent Auto 4.8 % (2-11); Neutrophils Absolute Auto 4.7 x10*3/uL (2.0-8.3); Neutrophils Percent Auto 63.1 % (45-73); Platelet Count 277 X10*3/uL (160-400); Red Blood Count 4.69 X10*6/uL (4.20-5.50); Red Cell Distribution Width 14.1 % (11.0-16.0); White Blood Count 7.5 X10*3/uL (4.8-10.8)
[2023-04-08 18:36] LABS: Alanine Aminotransferase 16 U/L (0-31); Albumin Level 4.2 g/dL (3.5-5.0); Alkaline Phosphatase 107 U/L (39-117); Anion Gap 18 (12-20); Aspartate Amino Transferase 16 U/L (5-31); Bilirubin Total 0.5 mg/dL (0.0-1.0); Blood Urea Nitrogen 14 mg/dL (9-16); Calcium 10.2 mg/dL (8.4-10.2); Carbon Dioxide 24 mmol/L (22-29); Chloride 103 mmol/L (96-108); Creatinine Clr Calc Pharmacy 66.8; Estimated Glomerular Filt Rate > 60; Glucose Random 161 mg/dL (60-115); HCG Quantitative 8 mIU/mL; Sodium 142 mmol/L (135-145); Total Protein 7.7 g/dL (6.5-8.0)
[2023-04-08 18:38] LABS: Troponin-I High Sensitivity < 2.7 ng/L (<3.5-17.0)
[2023-04-08 20:57] VITALS: BP 155/89; PULSE 82; RESP 14; TEMP 36.6; O2SAT 98
[2023-04-08] MEDS: Potassium Chloride Packet 20 MEQ PACKET 40 MEQ PO (21:19)
[2023-04-08] MEDS: Morphine Sulfate 4 MG/ML CARTRIDGE IM (21:20)
[2023-04-08] MEDS: Butalb/Acetamin/Caff 50/325/40 TABLET 1 TAB PO (21:20)
== END 2023-04-08 21:52 | disposition home or self-care (01) ==
PROVIDERS: Registered Nurse Emergency; Emergency Provider Internal Medicine
DX: M26.623 Arthralgia of bilateral temporomandibular joint (principal); R51.9 Headache, unspecified; R42 Dizziness and giddiness; R07.89 Other chest pain; R11.2 Nausea with vomiting, unspecified; I10 Essential (primary) hypertension; F17.210 Nicotine dependence, cigarettes, uncomplicated; Z71.6 Tobacco abuse counseling; Z79.899 Other long term (current) drug therapy
CPT/HCPCS: 36415; 71046; 80053; 84484; 84702; 85025; 93005; 96372; 99284; J2270

== ENCOUNTER 2023-04-20 13:13 | Outpatient (AMB) | payer OTHER, SELFPAY ==
--- NOTE | 2023-04-20 13:14 | A.OFFVIS_ITS ---
Intake Vital Signs 04/20/23 13:16 Weight 146 lb 2 oz BP 118/68 Blood Pressure Location Lt brachial Position Sitting Pulse 117 H Pulse Source Pulse Oximeter Pulse Oximetry (%) 97 Oxygen Delivery Method Room Air Intake Visit Reasons: I-WHITE [employer]STER: Headaches /Lvm Intake Note: Pt presents today for headaches , states x 3 years. Migraines may last 2-3 days. Pt states she loses her balance and gets nauseated . Pt has tried fiorect , sumatriptan , motrin ....all c no relief. Allergies amitriptyline Allergy (Intermediate, Verified 04/20/23 13:22) headache ibuprofen [From Motrin] Allergy (Intermediate, Verified 04/20/23 13:22) ITCHY RASH gabapentin Adverse Reaction (Intermediate, Verified 04/20/23 13:22) vomiting Medication List - Last Reconciled 04/20/23 by MESSI Montilla acetaminophen 1,000 mg (2 x 500 mg) PO TID PRN albuterol sulfate 90 mcg/actuation 2 puffs PO Q4H PRN 30 days atorvastatin 20 mg PO BEDTIME 90 days blood pressure monitor (Blood Pressure Kit) As directed rdtdiqulem-jvegkljnmntih-znpn 50-300-40 mg (Fioricet) 1 cap PO Q8H PRN uswlwprztf-dykzkivdzkipn-sftc 50-300-40 mg (Fioricet) 1 cap PO Q4-6H PRN cane As directed cholecalciferol (vitamin D3) 50 mcg PO DAILY 90 days clonazepam 0.5 mg PO BEDTIME PRN 30 days cyclobenzaprine 10 mg PO TID PRN duloxetine 20 mg PO BID 30 days fenofibrate 54 mg PO DAILY 90 days fluticasone propionate 50 mcg/actuation (Flonase Allergy Relief) 2 sprays intranasal Q12H 30 days hydrochlorothiazide 25 mg PO DAILY 30 days ipratropium-albuterol 20-100 mcg/actuation (Combivent Respimat) 1 puff PO QID 30 days loratadine 10 mg PO DAILY PRN 30 days potassium chloride ER 20 mEq PO DAILY prednisone 20 mg PO DAILY tramadol 50 mg PO TID PRN tramadol 50 mg PO BID PRN 30 days underpads (Bed Underpads) As directed venlafaxine ER 37.5 mg PO BEDTIME 90 days walker To be use lifetime HPI HPI Comments History of Present Illness Details 52-yr-old female presents for new pt roxana coronel of headache disorder. Pt reports that she started having headaches approx 3 years ago, which have been gradually increasing. She denies known precipitating cause. She has had multiple ER visists. Her most recent ER visit in mid-Mar, did show hypokalemia 3.0L, pt states she thought they were going to resend the potassium supplement but she never received. She was scheduled to have a brain MRI recently- but needed to reschedule it. Headache questionnaire: How old were you when your headaches started?: 49 How often do you have headaches per week/month?: 4 days per week How long does each headache last?: all day What is the intensity of your headache?: Severe What is the quality of your headache?: Pressure-like What side is your headache usually located?: Right Side Where are your headaches usually located?: Behind the eyes, Decker (Right- behind ear), Back of the head and Neck (More so on right) Do you have any of the following symptoms with your headaches?: Nausea, Light Sensitivity, Sound Sensitivity, Dizziness, Difficulty Concentrating and Swollen Eye (right facial) Have you ever experienced any of the following symptoms before or during your headaches?: Blurry Vision When you experience a headache, do you: Want to be still/Not moving Do you know any triggers for your headaches?: Stress, Sleep Deprivation and Weather Change Have you ever hit your head and lost consciousness?: No Does anyone in your family have headaches?: Mother How often do you exercise per week?: None What time do you go to bed?: Varies What time do you wake up?: Varies Do you have difficulty falling asleep?: Yes Do you have difficulty staying asleep?: Yes Do you snore?: Yes Have you ever woken up gasping for air?: Yes How many cups of caffeine (coffee, soda, tea) do you drink a day/week?: Coffe in the am or midday- a little. No soda intake Do you drink alcohol?: No Do you smoke cigarettes?: If yes, how many cigarettes?: 1 cigarette over 2-3 times a day Yes Have you ever had a lumbar puncture (also known as a spinal tap)?: No Have you ever had a brain MRI? (If yes, make sure to bring reports/CDs to your visit): No Have you ever had a sleep study?: No Pt endorses h/o asthma, constipation, fibromyalgia, neck pain, back pain, TMJ, HLD, urinary problems. Pt denies h/o seizures. Current acute medication use/interventions: Tylenol, Fioricet- some effect, Previous acute medication use: Sumatriptan- caused bothersome nausea, Current preventative medication use: None Previous preventative medication use: Amitriptyline- not tolerated- caused nausea. Gabapentin- caused vomiting, Duloxetine- ineffective Non-pharmacological interventions: Rest [facility] Medical History Acute maxillary sinusitis Otitis externa Hospital discharge follow-up Microscopic hematuria Physical exam Goiter Blurry vision Tobacco dependence Has daytime drowsiness Pulmonary nodules Moderate recurrent major depression Dyspnea Hand pain Skin lesion Leg pain, bilateral Dyslipidemia Epigastric pain Essential hypertension Cervical cancer screening GERD (gastroesophageal reflux disease) HTN (hypertension) Migraine Anxiety Depression Right lower quadrant pain Fibromyalgia Surgical History History of breast lump/mass excision History of lithotripsy H/O LEEP H/O tubal ligation Family History Father Myocardial infarction Mother Lung cancer Brother Liver cancer Maternal Grandfather Stomach cancer Maternal Grandmother No problems noted. Social History Housing: Apartment Alcohol intake: never Patient Tobacco Use Status: Current someday Tobacco user Tobacco use type: Cigarette Cigarettes Per Day: 3 e-Cigarette/Vaping Use: Never Used Second Hand Smoke Exposure: No service: No Current occupational status: disabled Gender identity: Female Cognitive needs: No Hearing needs: No Vision needs: No Female Reproductive History Menstrual Age of Menarche: 9 Review of Systems Const Details: See scanned ROS form Physical Exam Vital Signs: Last Vital Signs Pulse 117 H 04/20/23 13:16 BP 118/68 04/20/23 13:16 Pulse Ox 97 04/20/23 13:16 Oxygen Delivery Method Room Air 04/20/23 13:16 Const Orientation/consciousness: patient oriented x3 HEENT Other: Diffuse holocranial palpable scalp tenderness. Head: Yes normocephalic Resp Effort & Inspection: normal respiratory effort and able to speak in complete sentences Neuro Other: Bilateral posterior cervical tightness and tenderness General: patient oriented x3 Cranial nerves: Yes CN's II-XII intact bilaterally Cognition (Neuro): normal cognition Gait exam (Neuro): Normal gait present Motor exam (neuro): 5/5 motor strength present throughout Deep tendon reflexes (DTR's): Right triceps reflex intensity grade: 2+, Left triceps reflex intensity grade: 2+, Rt Biceps (C5, C6): 2+, Left biceps reflex intensity grade: 2+, Right brachioradialis reflex intensity grade: 2+, Left brachioradialis reflex intensity grade: 2+, Right patellar reflex intensity grade: 2+ and Left patellar reflex intensity grade: 2+ Coordination: dedkos-jv-jaks test normal and Romberg test negative Pupils: Normal pupillary reactivity/response: bilateral Psych Appearance: grossly normal Mental Status: mental status grossly normal Speech and movement: Normal speech and movement present Affect: normal affect Attitude: cooperative Thought process: Normal thought process present Assessment & Plan Assessment & Plan (1) Chronic migraine without aura: Code(s): G43.709 - Chronic migraine without aura, not intractable, without status migrainosus (2) Cervicalgia: Code(s): M54.2 - Cervicalgia (3) Hypokalemia: Code(s): E87.6 - Hypokalemia Plan Will check BMP and refill potassium supplement for hypokalemia. Pt advised to reschedule brain MRI order by Dr Crawford as headache began after pt turned 48 yrs old. Future considerations: HST For overall headache management: Discussed importance of good self-care, including but not limited to maintaining a healthy diet, adequate fluid intake, adequate sleep, and engaging in regular physical activity. Track headaches. For acute headache treatment: Discussed importance of taking acute medications at the first sign of headache, however stressed importance of avoiding acute medication overuse (especially with combined headache medications). Trial Naratriptan 2.5mg prn. Reviewed potential adverse effects of triptans, including but not limited to nausea, fatigue, chest tightness/tingling (usually passes within a few minutes), medication overuse headaches. Previous acute migraine medication trials: Sumatriptan not tolerated- nausea. Acute migraine medication contraindications: None at this time For headache prevention medication: Discussed that preventative medications should be taken routinely as prescribed for best effect, it may take several weeks for full effect to take effect. Start Riboflavin 400mg qam Start Magnesium 400mg qhs Start Emgality 240mg sc x's 1 then 120mg sc q month Reviewed potential adverse effects of Emgality, including but not limited to injection site reactions. Previous migraine prevention medication trials: Amitriptyline- not tolerated, Gabapentin- not tolerated, Cymbalta ineffective > 2 months. Migraine prevention medication contraindications: BBs d/t asthma dx Pt to follow-up in 3 months or sooner prn. Orders: Orders Basic Metabolic Panel Today E87.6 - Hypokalemia, R42 - Dizziness and giddiness, R51.9 - Headache, unspecified Medications: New galcanezumab-gnlm (Emgality Pen) 120 mg subcut ONCE 30 days 1 mL 6RF magnesium oxide may hold for loose stools 400 mg PO BEDTIME 30 days 30 tabs 6RF naratriptan take 1/2 - 1 tab at onset of headache; if no relief may repeat 1 tab after at least 4 hrs; max = 2 tabs/24 hrs orally PRN; 30 days 12 tabs 6RF migraine headache riboflavin (vitamin B2) 400 mg PO DAILY 30 days 30 tabs 6RF Refilled potassium chloride ER 20 mEq PO DAILY 30 tabs 0RF Discontinued duloxetine Discontinued Reason: Patient no longer taking 20 mg PO BID 30 days 60 caps 3RF F33.1 - Major depressive disorder, recurrent, moderate, M79.7 - Fibromyalgia Quality Reporting (2019) Adult ([facility] 138/08/09/68) Smoking risk assessment performed?: Yes Patient Tobacco Use Status: Current someday Tobacco user Coding Level of Care Code New Pt Level 4 (51169) Diagnoses Chronic migraine without aura G43.709 Cervicalgia M54.2 Hypokalemia E87.6
[2023-04-20 13:16] VITALS: BP 118/68; PULSE 117; O2SAT 97
== END 2023-04-20 14:21 | disposition home or self-care (01) ==
PROVIDERS: PCP Internal Medicine; Visit Provider Nurse Practitioner Family
DX: G43.709 Chronic migraine without aura, not intractable, without status migrainosus (principal); M54.2 Cervicalgia; E87.6 Hypokalemia
CPT/HCPCS: 99204

== ENCOUNTER → 2023-04-20 13:13 | Outpatient (BNVA) | payer OTHER, SELFPAY | PROVIDERS: PCP Internal Medicine; Visit Provider Nurse Practitioner Family | DX: G43.709 Chronic migraine without aura, not intractable, without status migrainosus (principal); M54.2 Cervicalgia; E87.6 Hypokalemia | CPT/HCPCS: 99202 ==

== ENCOUNTER 2023-05-01 12:56 | Outpatient (REF) | payer OTHER, SELFPAY ==
[2023-05-01 14:42] LABS: Anion Gap 14 (12-20); Blood Urea Nitrogen 10 mg/dL (9-16); Calcium 9.9 mg/dL (8.4-10.2); Carbon Dioxide 27 mmol/L (22-29); Chloride 104 mmol/L (96-108); Estimated Glomerular Filt Rate > 60; Glucose Random 87 mg/dL (60-115); Potassium 3.9 mmol/L (3.3-5.1); Sodium 141 mmol/L (135-145)
== END 2023-05-01 12:57 | disposition home or self-care (01) ==
LOC: HO.LAB 12:56
PROVIDERS: PCP Internal Medicine; Visit Provider Nurse Practitioner Family
DX: E87.6 Hypokalemia (principal); R51.9 Headache, unspecified; R42 Dizziness and giddiness
CPT/HCPCS: 36415; 80048

== ENCOUNTER 2023-05-02 12:13 | Emergency (ER) | payer OTHER, SELFPAY ==
--- NOTE | ~2023-05-02 | CT_ITS ---
EXAMINATION: CT HEAD WITHOUT CONTRAST CLINICAL INFORMATION: Dizziness and blurry vision. COMPARISON: 09/01/2021 TECHNIQUE: Contiguous axial imaging was performed from the skull base to vertex without intravenous administration of contrast. This CT examination was performed using dose optimization techniques as appropriate, variously including the following: *Automated exposure control *Adjustment of mA and/or kV according to patient size (this includes techniques or standardized protocols for targeted exams where dose is matched to indication/reason for exam; i.e. extremities or head) *Use of iterative reconstruction technique DLP: 599 mGy-cm FINDINGS: No intra or extra-axial fluid collection or hemorrhage, mass or mass effect. Calvarium intact. Mucoperiosteal thickening is observed in the left maxillary sinus. CT/CT head/brain wo IV con IMPRESSION: No acute intracranial pathology.
[2023-05-02 12:28] VITALS: BP 139/88; PULSE 102; RESP 16; TEMP 36.8; O2SAT 96; BMI 27.4
--- NOTE | 2023-05-02 12:28 | ED_ITS ---
HPI - Headache General Chief Complaint: Headache Stated Complaint: Headache Time Seen by Provider: 05/02/23 13:13 Related Data Previous Rx's Medication Instructions Recorded albuterol sulfate 90 mcg/actuation 2 puff PO Q4H PRN bronchospasm 30 05/24/21 aerosol inhaler days #8.5 grams hydrochlorothiazide 25 mg tablet 25 mg PO DAILY 30 days #30 tabs 09/02/22 blood pressure monitor (Blood #1 ea 09/06/22 Pressure Kit) cane #1 ea 09/06/22 loratadine 10 mg tablet 10 mg PO DAILY PRN for allergies 09/14/22 30 days #30 tabs acetaminophen 500 mg tablet 1,000 mg (2 x 500 mg) PO TID PRN 10/07/22 pain #20 tabs fluticasone propionate 50 2 spray intranasal Q12H 30 days 10/30/22 mcg/actuation nasal #16 grams spray,suspension (Flonase Allergy Relief) fenofibrate 54 mg tablet 54 mg PO DAILY 90 days #90 tabs 01/12/23 yckxwbgewe-dxhfafzjlwrlz-zktqqasf 1 cap PO Q8H PRN pain #20 caps 01/16/23 50 mg-300 mg-40 mg capsule (Fioricet) venlafaxine 37.5 mg 37.5 mg PO BEDTIME 90 days #90 caps 02/14/23 capsule,extended release 24 hr nomcpppvmg-bcihtfhfoqgfj-nbphhsto 1 cap PO Q4-6H PRN headache #10 02/17/23 50 mg-300 mg-40 mg capsule caps (Fioricet) cyclobenzaprine 10 mg tablet 10 mg PO TID PRN muscle spasm #10 02/27/23 tabs cholecalciferol (vitamin D3) 50 50 mcg PO DAILY 90 days #90 tabs 03/28/23 mcg (2,000 unit) tablet prednisone 20 mg tablet 20 mg PO DAILY #5 tabs 03/28/23 underpads (Bed Underpads) #100 ea 03/28/23 walker #1 ea 03/28/23 clonazepam 0.5 mg tablet 0.5 mg PO BEDTIME PRN anxiety 30 04/01/23 days #60 tabs tramadol 50 mg tablet 50 mg PO BID PRN severe pain 04/03/23 (scale score 7-10) 30 days #60 tabs tramadol 50 mg tablet 50 mg PO TID PRN severe pain 10/22/23 (scale score 7-10) #12 tabs atorvastatin 20 mg tablet 20 mg PO BEDTIME 90 days #90 tabs 04/13/23 galcanezumab-gnlm 120 mg/mL 120 mg subcut ONCE 30 days #1 mL 04/20/23 subcutaneous pen injector (Emgality Pen) magnesium oxide 400 mg (241.3 mg 400 mg PO BEDTIME 30 days #30 tabs 04/20/23 magnesium) tablet naratriptan 2.5 mg tablet See Rx Instructions PO .COMPLEX 04/20/23 PRN migraine headache 30 days #12 tabs potassium chloride 20 mEq 20 meq PO DAILY #30 tabs 04/20/23 tablet,extended release riboflavin (vitamin B2) 400 mg 400 mg PO DAILY 30 days #30 tabs 04/20/23 tablet ipratropium 20 mcg-albuterol 100 1 puff PO QID 30 days #25 mL 04/23/23 mcg/actuation mist for inhalation (Combivent Respimat) Allergies Allergy/AdvReac Type Severity Reaction Status Date / Time amitriptyline Allergy Intermediate headache Verified 05/02/23 12:28 ibuprofen [From Motrin] Allergy Intermediate ITCHY RASH Verified 05/02/23 12:28 gabapentin AdvReac Intermediate vomiting Verified 05/02/23 12:28 [facility] Past Medical History Medical History Acute maxillary sinusitis Otitis externa Hospital discharge follow-up Microscopic hematuria Physical exam Goiter Blurry vision Tobacco dependence Has daytime drowsiness Pulmonary nodules Moderate recurrent major depression Dyspnea Hand pain Skin lesion Leg pain, bilateral Dyslipidemia Epigastric pain Essential hypertension Cervical cancer screening GERD (gastroesophageal reflux disease) HTN (hypertension) Migraine Anxiety Depression Right lower quadrant pain Fibromyalgia Surgical History History of breast lump/mass excision History of lithotripsy H/O LEEP H/O tubal ligation Family History Family History Father Myocardial infarction Mother Lung cancer Brother Liver cancer Maternal Grandfather Stomach cancer Maternal Grandmother No problems noted. Social History Social History Housing: Apartment Alcohol intake: never Patient Tobacco Use Status: Current someday Tobacco user Tobacco use type: Cigarette Cigarettes Per Day: 3 e-Cigarette/Vaping Use: Never Used Second Hand Smoke Exposure: No service: No Current occupational status: disabled Gender identity: Female Cognitive needs: No Hearing needs: No Vision needs: No Physical Exam 2 Vital Signs: Vital Signs: Last Vital Signs Temp 98.2 F 05/02/23 12:28 Pulse 82 05/02/23 14:08 Resp 18 05/02/23 14:08 BP 121/72 05/02/23 14:08 Pulse Ox 96 05/02/23 12:28 O2 Del Method Room Air 05/02/23 12:28 BMI result Body Mass Index 27.4 Course Course Course Narrative: RME: 52yo F w/PMHx goiter, GERD, HTN, HLD, Migraines, depression, fibromyalgia, c/o migraine SY since yesterday w/pressure behind R eye. +R eye blurry vision and feeling off balance. SY not maximal at onset. Also reports tingling in hands. States SY usually frontal & this is more diffuse. denies taking AC Ambulating w/steady gait EKG, Labs, Head CT, Viral testing, orthostatics ordered Full HPI, ROS and PE to be performed by primary ED provider. Medications Administered Discontinued Medications Generic Name Dose Route Start Last Admin Trade Name Horacio PRN Reason Stop Dose Admin Diphenhydramine HCl 50 mg 05/02/23 13:51 05/02/23 14:05 Diphenhydramine Hcl 50 Mg/Ml Vial IVPUSH 05/02/23 13:52 50 mg ONCE ONE Administration Sodium Chloride 1,000 mls @ 999 mls/hr 05/02/23 14:00 05/02/23 15:44 Ns IV 05/02/23 15:00 Infused .Q1H1M ANDREW Infusion Ketorolac Tromethamine 15 mg 05/02/23 13:51 05/02/23 14:06 Ketorolac Tromethamine 15 Mg/Ml Vial IVPUSH 05/02/23 13:52 15 mg ONCE ONE Administration Metoclopramide HCl 10 mg 05/02/23 13:51 05/02/23 14:06 Metoclopramide Hcl 10 Mg/2 Ml Vial IVPUSH 11/15/23 13:52 10 mg ONCE ONE Administration Medical Decision Making Lab Data 05/02/23 13:07 05/02/23 13:07 Labs: Lab Results 05/02/23 Range/Units 13:07 WBC 7.2 (4.8-10.8) X10*3/uL RBC 4.52 (4.20-5.50) X10*6/uL Hgb 12.4 (12.0-16.0) g/dl Hct 37.9 (37.0-47.0) % MCV 83.8 (80.0-98.0) fL MCH 27.4 (27.0-33.0) pg MCHC 32.7 (31.0-35.0) g/dl RDW 14.3 (11.0-16.0) % Plt Count 281 (160-400) X10*3/uL MPV 10.3 (9.4-12.3) fL Immature Gran % (Auto) 0.3 (0.0-0.4) % Neut % (Auto) 66.7 (45-73) % Lymph % (Auto) 25.2 (20-40) % Jasper % (Auto) 5.3 (2-11) % Eos % (Auto) 1.7 (0-4) % Baso % (Auto) 0.8 (0-2) % Lymph # (Auto) 1.8 (1.2-4.9) X10*3/uL Jasper # (Auto) 0.4 (0.1-1.2) X10*3/uL Eos # (Auto) 0.1 (0.0-0.4) X10*3/uL Baso # (Auto) 0.1 (0.0-0.2) X10*3/uL Abs Immat Gran (auto) 0.02 (0.00-0.03) X10*3/uL Absolute Neuts (auto) 4.8 (2.0-8.3) x10*3/uL Absolute Nucleated RBC 0.000 (0.0-0.012) X10*3/uL Nucleated RBC % (auto) 0.0 (0.0-0.2) /100WBC Sodium 143 (135-145) mmol/L Potassium 3.3 (3.3-5.1) mmol/L Chloride 105 (96-108) mmol/L Carbon Dioxide 30 H (22-29) mmol/L Anion Gap 11 L (12-20) BUN 13 (9-16) mg/dL Creatinine 0.85 (0.5-1.4) mg/dL Estim Creat Clear Calc 65.6 Estimated GFR > 60 Random Glucose 122 H (60-115) mg/dL Calcium 9.6 (8.4-10.2) mg/dL Magnesium 1.7 (1.6-2.6) mg/dL Total Bilirubin 0.6 (0.0-1.0) mg/dL Direct Bilirubin 0.1 (0.0-0.5) mg/dL AST 15 (5-31) U/L ALT 9 (0-31) U/L Alkaline Phosphatase 116 (39-117) U/L Total Protein 7.4 (6.5-8.0) g/dL Albumin 4.0 (3.5-5.0) g/dL COVID-19 (EDWAR) Negative (Negative) COVID-19 Clin Com See Note Influenza Type A (DANTE) Negative (Negative) Influenza Type B (DANTE) Negative (Negative) Influenza A & B Note See Note Discharge Plan Discharge Clinical Impression: Migraine Patient Disposition: Home, Self-Care Instructions: Migraine Headache (ED) Prescriptions: No Action albuterol sulfate 90 mcg/actuation HFA aerosol inhaler 2 puff PO Q4H PRN (Reason: bronchospasm) 30 Days Qty: 8.5 6RF hydrochlorothiazide 25 mg tablet 25 mg PO DAILY 30 Days Qty: 30 11RF (DME) blood pressure monitor [Blood Pressure Kit] Kit See Rx Instructions .ROUTE .MEDSUPPLY Qty: 1 0RF Rx Instructions: As directed (DME) cane Device See Rx Instructions .Route Qty: 1 0RF Rx Instructions: As directed fluticasone propionate [Flonase Allergy Relief] 50 mcg/actuation spray,suspension 2 spray intranasal Q12H 30 Days Qty: 16 0RF Rx Instructions: administer into each nostril fenofibrate 54 mg tablet 54 mg PO DAILY 90 Days Qty: 90 1RF cyclobenzaprine 10 mg tablet 10 mg PO TID PRN (Reason: muscle spasm) Qty: 10 0RF (DME) phuong Misc See Rx Instructions .Route Qty: 1 0RF Rx Instructions: To be use lifetime (DME) underpads [Bed Underpads] Pad See Rx Instructions .Route Qty: 100 0RF Rx Instructions: As directed clonazepam 0.5 mg tablet 0.5 mg PO BEDTIME PRN (Reason: anxiety) 30 Days Qty: 60 0RF tramadol 50 mg tablet 50 mg PO BID PRN (Reason: severe pain (scale score 7-10)) 30 Days Qty: 60 0RF atorvastatin 20 mg tablet 20 mg PO BEDTIME 90 Days Qty: 90 1RF Combivent Respimat 20-100 mcg/actuation mist 1 puff PO QID 30 Days Qty: 25 1RF Patient Comments: Pulmo given acetaminophen 500 mg tablet 1,000 mg PO TID PRN (Reason: pain) Qty: 20 0RF xcvneafsqv-fcsbeibopfqqm-njeb [Fioricet] 50-300-40 mg capsule 1 cap PO Q8H PRN (Reason: pain) Qty: 20 0RF amtzbmfdrf-duwgscrjnrqzs-ctac [Fioricet] 50-300-40 mg capsule 1 cap PO Q4-6H PRN (Reason: headache) Qty: 10 0RF tramadol 50 mg tablet 50 mg PO TID PRN (Reason: severe pain (scale score 7-10)) Qty: 12 0RF prednisone 20 mg tablet 20 mg PO DAILY Qty: 5 0RF cholecalciferol (vitamin D3) 50 mcg (2,000 unit) tablet 50 mcg PO DAILY 90 Days Qty: 90 1RF loratadine 10 mg tablet 10 mg PO DAILY PRN (Reason: for allergies) 30 Days Qty: 30 1RF venlafaxine 37.5 mg capsule,extended release 24hr 37.5 mg PO BEDTIME 90 Days Qty: 90 0RF potassium chloride 20 mEq tablet extended release 20 meq PO DAILY Qty: 30 0RF Emgality Pen 120 mg/mL pen injector 120 mg subcut ONCE 30 Days Qty: 1 6RF magnesium oxide 400 mg (241.3 mg magnesium) tablet 400 mg PO BEDTIME 30 Days Qty: 30 6RF Rx Instructions: may hold for loose stools naratriptan 2.5 mg tablet See Rx Instructions PO .COMPLEX PRN (Reason: migraine headache) 30 Days Qty: 12 6RF Rx Instructions: take 1/2 - 1 tab at onset of headache; if no relief may repeat 1 tab after at least 4 hrs; max = 2 tabs/24 hrs orally PRN; riboflavin (vitamin B2) 400 mg tablet 400 mg PO DAILY 30 Days Qty: 30 6RF Referrals: Neyda Foster MD [Primary Care Provider] - Interventions: ED Discharge Assessment Last Done: 05/02/23 15:58 Discharge Date/Time: 05/02/23 15:59 Print Language: Italian
--- NOTE | 2023-05-02 12:32 | ECG_ITS ---
Test Reason : DIZZY Blood Pressure : / mmHG Vent. Rate : 084 BPM Atrial Rate : 084 BPM P-R Int : 142 ms QRS Dur : 072 ms QT Int : 372 ms P-R-T Axes : 059 022 026 degrees QTc Int : 439 ms Normal sinus rhythm Normal ECG When compared with ECG of 08-APR-2023 18:01, ST no longer depressed in Lateral leads Referred By: Crissy Yang Electronically Signed By:DRE GALEANA MD
[2023-05-02 13:09] VITALS: BP 123/78; PULSE 82
[2023-05-02 13:10] VITALS: BP 127/86; PULSE 87
[2023-05-02 13:11] VITALS: BP 130/90; PULSE 100
[2023-05-02 13:14] LABS: MANUAL DIFF FLAG NO
[2023-05-02 13:15] LABS: White Blood Count 7.2 X10*3/uL (4.8-10.8)
[2023-05-02 13:16] LABS: Basophils Absolute Auto 0.1 X10*3/uL (0.0-0.2); Basophils Percent Auto 0.8 % (0-2); Eosinophils Absolute Auto 0.1 X10*3/uL (0.0-0.4); Eosinophils Percent Auto 1.7 % (0-4); Hematocrit 37.9 % (37.0-47.0); Hemoglobin 12.4 g/dl (12.0-16.0); Imm Gran Abs Auto 0.02 X10*3/uL (0.00-0.03); Imm Gran Pct Auto 0.3 % (0.0-0.4); Lymphocytes Absolute Auto 1.8 X10*3/uL (1.2-4.9); Lymphocytes Percent Auto 25.2 % (20-40); Mean Corpuscular HGB Conc 32.7 g/dl (31.0-35.0); Mean Corpuscular Hemoglobin 27.4 pg (27.0-33.0); Mean Corpuscular Volume 83.8 fL (80.0-98.0); Mean Platelet Volume 10.3 fL (9.4-12.3); Monocytes Absolute Auto 0.4 X10*3/uL (0.1-1.2); Monocytes Percent Auto 5.3 % (2-11); Neutrophils Absolute Auto 4.8 x10*3/uL (2.0-8.3); Neutrophils Percent Auto 66.7 % (45-73); Platelet Count 281 X10*3/uL (160-400); Red Blood Count 4.52 X10*6/uL (4.20-5.50); Red Cell Distribution Width 14.3 % (11.0-16.0)
[2023-05-02 13:29] LABS: Alanine Aminotransferase 9 U/L (0-31); Alkaline Phosphatase 116 U/L (39-117); Anion Gap 11 (12-20); Aspartate Amino Transferase 15 U/L (5-31); Bilirubin Direct 0.1 mg/dL (0.0-0.5); Bilirubin Total 0.6 mg/dL (0.0-1.0); Blood Urea Nitrogen 13 mg/dL (9-16); Calcium 9.6 mg/dL (8.4-10.2); Carbon Dioxide 30 mmol/L (22-29); Chloride 105 mmol/L (96-108); Creatinine Clr Calc Pharmacy 65.6; Estimated Glomerular Filt Rate > 60; Glucose Random 122 mg/dL (60-115); Magnesium 1.7 mg/dL (1.6-2.6); Potassium 3.3 mmol/L (3.3-5.1); Sodium 143 mmol/L (135-145); Total Protein 7.4 g/dL (6.5-8.0)
[2023-05-02 13:34] LABS: COVID-19 Test Negative (Negative); IDNOW Serial# 08D9AD1C; IDNOW Serial# BCCEAD1C; Influenza A Negative (Negative); Influenza B2 Negative (Negative)
--- NOTE | 2023-05-02 13:54 | ED_ITS ---
HPI - Headache General Chief Complaint: Headache Stated Complaint: Headache Time Seen by Provider: 05/02/23 13:13 History of Present Illness HPI Narrative: Patient is a 52-year-old female presented today with having headache that is been ongoing history of migraine patient feels that she had some blurriness in vision that was bright subsequently disappeared then had the headache getting worse the last 24 hours. Associated with nausea worsened with bright lights. Also had some tingling sensation in the arms yesterday with pain. No diaphoresis. Patient denies any chest pain. She is from home. No cough no congestion or upper respiratory symptoms. No pain on urination. No focal weakness. No history diabetes, hypertension, high cholesterol, smoking. No history of MA in the past. Related Data Previous Rx's Medication Instructions Recorded albuterol sulfate 90 mcg/actuation 2 puff PO Q4H PRN bronchospasm 30 05/24/21 aerosol inhaler days #8.5 grams hydrochlorothiazide 25 mg tablet 25 mg PO DAILY 30 days #30 tabs 09/02/22 blood pressure monitor (Blood #1 ea 09/06/22 Pressure Kit) cane #1 ea 09/06/22 loratadine 10 mg tablet 10 mg PO DAILY PRN for allergies 09/14/22 30 days #30 tabs acetaminophen 500 mg tablet 1,000 mg (2 x 500 mg) PO TID PRN 10/07/22 pain #20 tabs fluticasone propionate 50 2 spray intranasal Q12H 30 days 10/30/22 mcg/actuation nasal #16 grams spray,suspension (Flonase Allergy Relief) fenofibrate 54 mg tablet 54 mg PO DAILY 90 days #90 tabs 01/12/23 ftfmhfgyka-xemzbgmxhhnvl-tjmrqzga 1 cap PO Q8H PRN pain #20 caps 01/16/23 50 mg-300 mg-40 mg capsule (Fioricet) venlafaxine 37.5 mg 37.5 mg PO BEDTIME 90 days #90 caps 02/14/23 capsule,extended release 24 hr vvdsfqxlmc-qnuejlfzsxsmh-bkwpxcpb 1 cap PO Q4-6H PRN headache #10 02/17/23 50 mg-300 mg-40 mg capsule caps (Fioricet) cyclobenzaprine 10 mg tablet 10 mg PO TID PRN muscle spasm #10 02/27/23 tabs cholecalciferol (vitamin D3) 50 50 mcg PO DAILY 90 days #90 tabs 03/28/23 mcg (2,000 unit) tablet prednisone 20 mg tablet 20 mg PO DAILY #5 tabs 03/28/23 underpads (Bed Underpads) #100 ea 03/28/23 walker #1 ea 03/28/23 clonazepam 0.5 mg tablet 0.5 mg PO BEDTIME PRN anxiety 30 04/01/23 days #60 tabs tramadol 50 mg tablet 50 mg PO BID PRN severe pain 04/03/23 (scale score 7-10) 30 days #60 tabs tramadol 50 mg tablet 50 mg PO TID PRN severe pain 04/08/23 (scale score 7-10) #12 tabs atorvastatin 20 mg tablet 20 mg PO BEDTIME 90 days #90 tabs 04/13/23 galcanezumab-gnlm 120 mg/mL 120 mg subcut ONCE 30 days #1 mL 04/20/23 subcutaneous pen injector (Emgality Pen) magnesium oxide 400 mg (241.3 mg 400 mg PO BEDTIME 30 days #30 tabs 04/20/23 magnesium) tablet naratriptan 2.5 mg tablet See Rx Instructions PO .COMPLEX 04/20/23 PRN migraine headache 30 days #12 tabs potassium chloride 20 mEq 20 meq PO DAILY #30 tabs 04/20/23 tablet,extended release riboflavin (vitamin B2) 400 mg 400 mg PO DAILY 30 days #30 tabs 04/20/23 tablet ipratropium 20 mcg-albuterol 100 1 puff PO QID 30 days #25 mL 04/23/23 mcg/actuation mist for inhalation (Combivent Respimat) Allergies Allergy/AdvReac Type Severity Reaction Status Date / Time amitriptyline Allergy Intermediate headache Verified 05/02/23 12:28 ibuprofen [From Motrin] Allergy Intermediate ITCHY RASH Verified 05/02/23 12:28 gabapentin AdvReac Intermediate vomiting Verified 05/02/23 12:28 Review of Systems 2 Review of Systems: Positive headache Yes all other systems are reviewed and are negative PMFSH Past Medical History Attestation statement: The following information was validated with the patient. Medical History Acute maxillary sinusitis Otitis externa Hospital discharge follow-up Microscopic hematuria Physical exam Goiter Blurry vision Tobacco dependence Has daytime drowsiness Pulmonary nodules Moderate recurrent major depression Dyspnea Hand pain Skin lesion Leg pain, bilateral Dyslipidemia Epigastric pain Essential hypertension Cervical cancer screening GERD (gastroesophageal reflux disease) HTN (hypertension) Migraine Anxiety Depression Right lower quadrant pain Fibromyalgia Surgical History History of breast lump/mass excision History of lithotripsy H/O LEEP H/O tubal ligation Family History Family History Father Myocardial infarction Mother Lung cancer Brother Liver cancer Maternal Grandfather Stomach cancer Maternal Grandmother No problems noted. Social History Social History Housing: Apartment Alcohol intake: never Patient Tobacco Use Status: Current someday Tobacco user Tobacco use type: Cigarette Cigarettes Per Day: 3 e-Cigarette/Vaping Use: Never Used Second Hand Smoke Exposure: No Advance Directives: No service: No Current occupational status: disabled Gender identity: Female Cognitive needs: No Hearing needs: No Vision needs: No Physical Exam 2 Vital Signs: Vital Signs: Last Vital Signs Temp 98.2 F 05/02/23 12:28 Pulse 82 05/02/23 14:08 Resp 18 05/02/23 14:08 BP 121/72 05/02/23 14:08 Pulse Ox 96 05/02/23 12:28 O2 Del Method Room Air 05/02/23 12:28 BMI result Body Mass Index 27.4 Appearance: Alert. Oriented X3. No acute distress. Eyes: Pupils equal, round and reactive to light. ENT: Pharynx normal. Neck: Normal inspection. Neck supple. No lymph nodes noted. No crepitus CVS: Normal heart rate and rhythm. Pulses normal. Normal S1 and S2 Respiratory: No respiratory distress. Breath sounds normal. No Wheezing. No rales Abdomen: Soft and nontender. No rigidity. No distention. good BS x4 Skin: Skin warm and dry. Normal skin color. Normal skin turgor. Extremities: No lower extremity edema. Neurovascular intact to all extremities. No Lacerations. No Rash Neuro: Oriented X 3. No motor deficit. No sensory deficit. Moving all extermities. No slurred speech Medications Administered Discontinued Medications Generic Name Dose Route Start Last Admin Trade Name Horacio PRN Reason Stop Dose Admin Diphenhydramine HCl 50 mg 05/02/23 13:51 05/02/23 14:05 Diphenhydramine Hcl 50 Mg/Ml Vial IVPUSH 05/02/23 13:52 50 mg ONCE ONE Administration Sodium Chloride 1,000 mls @ 999 mls/hr 05/02/23 14:00 05/02/23 14:05 Ns IV 05/02/23 15:00 999 mls/hr .Q1H1M ANDREW Administration Ketorolac Tromethamine 15 mg 05/02/23 13:51 05/02/23 14:06 Ketorolac Tromethamine 15 Mg/Ml Vial IVPUSH 05/02/23 13:52 15 mg ONCE ONE Administration Metoclopramide HCl 10 mg 05/02/23 13:51 05/02/23 14:06 Metoclopramide Hcl 10 Mg/2 Ml Vial IVPUSH 05/02/23 13:52 10 mg ONCE ONE Administration Medical Decision Making Medical Decision Making [facility] Narrative: CT scan of the head was grossly negative for any CT evidence of bleed. Patient has headache to 1 side. Much worse this morning. Associated with nausea. History of migraine. Had some change in vision earlier. Patient neurologically intact. Given migraine treatment with Reglan, Toradol, Benadryl with good relief of symptoms. Patient's white count is normal patient's symptoms not consistent with meningitis patient electrolytes are normal COVID flu RSV all negative. My interpretation of patient's EKG showed a sinus rhythm heart rate is 80 MS QRS QTC within normal limits there is no acute ST segment elevation. Differential Diagnosis Differential Diagnoses: The differential diagnosis associated with the presentation includes Intracranial bleed, mass, migraine, temporal arteritis, Admission/Observation Consideration of admission/observation: Escalation of care including admission/observation considered Says symptoms resolved well-appearing Lab Data [facility] Lab Attestation statement: I reviewed the patient's lab results. 05/02/23 13:07 05/02/23 13:07 Labs: Lab Results 05/02/23 Range/Units 13:07 WBC 7.2 (4.8-10.8) X10*3/uL RBC 4.52 (4.20-5.50) X10*6/uL Hgb 12.4 (12.0-16.0) g/dl Hct 37.9 (37.0-47.0) % MCV 83.8 (80.0-98.0) fL MCH 27.4 (27.0-33.0) pg MCHC 32.7 (31.0-35.0) g/dl RDW 14.3 (11.0-16.0) % Plt Count 281 (160-400) X10*3/uL MPV 10.3 (9.4-12.3) fL Immature Gran % (Auto) 0.3 (0.0-0.4) % Neut % (Auto) 66.7 (45-73) % Lymph % (Auto) 25.2 (20-40) % [facility] % (Auto) 5.3 (2-11) % Eos % (Auto) 1.7 (0-4) % Baso % (Auto) 0.8 (0-2) % Lymph # (Auto) 1.8 (1.2-4.9) X10*3/uL [facility] # (Auto) 0.4 (0.1-1.2) X10*3/uL Eos # (Auto) 0.1 (0.0-0.4) X10*3/uL Baso # (Auto) 0.1 (0.0-0.2) X10*3/uL Abs Immat Gran (auto) 0.02 (0.00-0.03) X10*3/uL Absolute Neuts (auto) 4.8 (2.0-8.3) x10*3/uL Absolute Nucleated RBC 0.000 (0.0-0.012) X10*3/uL Nucleated RBC % (auto) 0.0 (0.0-0.2) /100WBC Sodium 143 (135-145) mmol/L Potassium 3.3 (3.3-5.1) mmol/L Chloride 105 (96-108) mmol/L Carbon Dioxide 30 H (22-29) mmol/L Anion Gap 11 L (12-20) BUN 13 (9-16) mg/dL Creatinine 0.85 (0.5-1.4) mg/dL Estim Creat Clear Calc 65.6 Estimated GFR > 60 Random Glucose 122 H (60-115) mg/dL Calcium 9.6 (8.4-10.2) mg/dL Magnesium 1.7 (1.6-2.6) mg/dL Total Bilirubin 0.6 (0.0-1.0) mg/dL Direct Bilirubin 0.1 (0.0-0.5) mg/dL AST 15 (5-31) U/L ALT 9 (0-31) U/L Alkaline Phosphatase 116 (39-117) U/L Total Protein 7.4 (6.5-8.0) g/dL Albumin 4.0 (3.5-5.0) g/dL COVID-19 (EDWAR) Negative (Negative) COVID-19 Clin Com See Note Influenza Type A (DANTE) Negative (Negative) Influenza Type B (DANTE) Negative (Negative) Influenza A & B Note See Note Independent Interpretation I performed an independent interpretation of an: CT Scan (CT head grossly negative) Radiology Impression Discussion of test interpretation with radiology: I have reviewed the radiologist's reading. Discharge Plan Discharge Clinical Impression: Migraine Patient Disposition: Home, Self-Care Instructions: Migraine Headache (ED) Prescriptions: No Action albuterol sulfate 90 mcg/actuation HFA aerosol inhaler 2 puff PO Q4H PRN (Reason: bronchospasm) 30 Days Qty: 8.5 6RF hydrochlorothiazide 25 mg tablet 25 mg PO DAILY 30 Days Qty: 30 11RF (DME) blood pressure monitor [Blood Pressure Kit] Kit See Rx Instructions .ROUTE .MEDSUPPLY Qty: 1 0RF Rx Instructions: As directed (DME) cane Device See Rx Instructions .Route Qty: 1 0RF Rx Instructions: As directed fluticasone propionate [Flonase Allergy Relief] 50 mcg/actuation spray,suspension 2 spray intranasal Q12H 30 Days Qty: 16 0RF Rx Instructions: administer into each nostril fenofibrate 54 mg tablet 54 mg PO DAILY 90 Days Qty: 90 1RF cyclobenzaprine 10 mg tablet 10 mg PO TID PRN (Reason: muscle spasm) Qty: 10 0RF (DME) walker Misc See Rx Instructions .Route Qty: 1 0RF Rx Instructions: To be use lifetime (DME) underpads [Bed Underpads] Pad See Rx Instructions .Route Qty: 100 0RF Rx Instructions: As directed clonazepam 0.5 mg tablet 0.5 mg PO BEDTIME PRN (Reason: anxiety) 30 Days Qty: 60 0RF tramadol 50 mg tablet 50 mg PO BID PRN (Reason: severe pain (scale score 7-10)) 30 Days Qty: 60 0RF atorvastatin 20 mg tablet 20 mg PO BEDTIME 90 Days Qty: 90 1RF Combivent Respimat 20-100 mcg/actuation mist 1 puff PO QID 30 Days Qty: 25 1RF Patient Comments: Pulmo given acetaminophen 500 mg tablet 1,000 mg PO TID PRN (Reason: pain) Qty: 20 0RF prwwkxlysr-lcvooxwygzvjk-ldjd [Fioricet] 50-300-40 mg capsule 1 cap PO Q8H PRN (Reason: pain) Qty: 20 0RF tbablqjdnh-bfnympsytikej-kfry [Fioricet] 50-300-40 mg capsule 1 cap PO Q4-6H PRN (Reason: headache) Qty: 10 0RF tramadol 50 mg tablet 50 mg PO TID PRN (Reason: severe pain (scale score 7-10)) Qty: 12 0RF prednisone 20 mg tablet 20 mg PO DAILY Qty: 5 0RF cholecalciferol (vitamin D3) 50 mcg (2,000 unit) tablet 50 mcg PO DAILY 90 Days Qty: 90 1RF loratadine 10 mg tablet 10 mg PO DAILY PRN (Reason: for allergies) 30 Days Qty: 30 1RF venlafaxine 37.5 mg capsule,extended release 24hr 37.5 mg PO BEDTIME 90 Days Qty: 90 0RF potassium chloride 20 mEq tablet extended release 20 meq PO DAILY Qty: 30 0RF Emgality Pen 120 mg/mL pen injector 120 mg subcut ONCE 30 Days Qty: 1 6RF magnesium oxide 400 mg (241.3 mg magnesium) tablet 400 mg PO BEDTIME 30 Days Qty: 30 6RF Rx Instructions: may hold for loose stools naratriptan 2.5 mg tablet See Rx Instructions PO .COMPLEX PRN (Reason: migraine headache) 30 Days Qty: 12 6RF Rx Instructions: take 1/2 - 1 tab at onset of headache; if no relief may repeat 1 tab after at least 4 hrs; max = 2 tabs/24 hrs orally PRN; riboflavin (vitamin B2) 400 mg tablet 400 mg PO DAILY 30 Days Qty: 30 6RF Referrals: Neyda Foster MD [Primary Care Provider] - Print Language: Maltese
[2023-05-02] MEDS: 0.9 % Sodium Chloride 1,000 ML 999 ML IV (14:05)
[2023-05-02] MEDS: diphenhydrAMINE HCL 50 MG/ML VIAL IVPUSH (14:05)
[2023-05-02] MEDS: Ketorolac Tromethamine 15 MG/ML VIAL IVPUSH (14:06)
[2023-05-02] MEDS: Metoclopramide HCl 10 MG/2 ML VIAL IVPUSH (14:06)
[2023-05-02 14:08] VITALS: BP 121/72; PULSE 82; RESP 18
== END 2023-05-02 15:59 | disposition home or self-care (01) ==
PROVIDERS: Physician Assistant; Emergency Provider Emergency Medicine Emergency Medical Services; PCP Internal Medicine
DX: G43.909 Migraine, unspecified, not intractable, without status migrainosus (principal); H53.8 Other visual disturbances; R11.2 Nausea with vomiting, unspecified; Z11.52 Encounter for screening for COVID-19; Z20.822 Contact with and (suspected) exposure to COVID-19; Z79.899 Other long term (current) drug therapy
CPT/HCPCS: 36415; 70450; 80048; 80076; 83735; 85025; 87502; 87635; 93005; 96361; 96374; 96375; 99284; J1200; J1885; J2765

== ENCOUNTER 2023-05-16 14:14 | Outpatient (AMB) | payer OTHER, SELFPAY ==
--- NOTE | 2023-05-16 14:18 | A.OFFPC_ITS ---
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 Accompanied by: Self / Same As Patient Allergies amitriptyline Allergy (Intermediate, Verified 05/16/23 14:31) headache ibuprofen [From Motrin] Allergy (Intermediate, Verified 05/16/23 14:31) ITCHY RASH gabapentin Adverse Reaction (Intermediate, Verified 05/16/23 14:31) vomiting Medication List - Last Reconciled 05/16/23 by Neyda Peres MD acetaminophen 1,000 mg (2 x 500 mg) PO TID PRN albuterol sulfate 90 mcg/actuation 2 puffs PO Q4H PRN 30 days atorvastatin 20 mg PO BEDTIME 90 days blood pressure monitor (Blood Pressure Kit) As directed clrojcrsez-jldlgjzuwouhw-zsbd 50-300-40 mg (Fioricet) 1 cap PO Q8H PRN xgcotcyccp-oldlokecxfqdx-duoe 50-300-40 mg (Fioricet) 1 cap PO Q4-6H PRN cane As directed cholecalciferol (vitamin D3) 50 mcg PO DAILY 90 days clonazepam 0.5 mg PO BEDTIME PRN 30 days cyclobenzaprine 10 mg PO TID PRN fenofibrate 54 mg PO DAILY 90 days fluticasone propionate 50 mcg/actuation (Flonase Allergy Relief) 2 sprays intranasal Q12H 30 days galcanezumab-gnlm (Emgality Pen) 120 mg subcut ONCE 30 days hydrochlorothiazide 25 mg PO DAILY 30 days ipratropium-albuterol 20-100 mcg/actuation (Combivent Respimat) 1 puff PO QID 30 days loratadine 10 mg PO DAILY PRN 30 days magnesium oxide 400 mg PO BEDTIME 30 days naratriptan take 1/2 - 1 tab at onset of headache; if no relief may repeat 1 tab after at least 4 hrs; max = 2 tabs/24 hrs orally PRN; 30 days potassium chloride ER 20 mEq PO DAILY prednisone 20 mg PO DAILY riboflavin (vitamin B2) 400 mg PO DAILY 30 days tramadol 50 mg PO TID PRN tramadol 50 mg PO BID PRN 30 days underpads (Bed Underpads) As directed venlafaxine ER 37.5 mg PO BEDTIME 90 days walker To be use lifetime Tobacco use date assessed: 03/28/23 Dental Screening Dental Screen Date: 05/16/23 Did you have a dental visit in the last 12 months?: Yes Did you have a dental problem in the last 6 months where you did not have access to dental care?: No Was dental information given to patient?: Patient has dentist HPI HPI Comments History of Present Illness Details This is a 52-year-old female with hypertension, mixed hyperlipidemia, migraine and moderate recurrent major depression that comes today for follow-up on her conditions. Blood pressure stable. Last cholesterol and triglycerides were well control. Migraines happens few times a week and is follow by Neurology which prescribed new medications for her. Depression still present and she has not started venlafaxine at bedtime. No chest pain or shortness of breath. [facility] Medical History (Updated 05/16/23 @ 15:11 by Neyda Peres MD) Acute maxillary sinusitis Otitis externa Hospital discharge follow-up Microscopic hematuria Physical exam Goiter Blurry vision Tobacco dependence Has daytime drowsiness Pulmonary nodules Moderate recurrent major depression Dyspnea Hand pain Skin lesion Leg pain, bilateral Dyslipidemia Epigastric pain Essential hypertension Cervical cancer screening GERD (gastroesophageal reflux disease) HTN (hypertension) Migraine Anxiety Depression Right lower quadrant pain Fibromyalgia Surgical History History of breast lump/mass excision History of lithotripsy H/O LEEP H/O tubal ligation Family History Father Myocardial infarction Mother Lung cancer Brother Liver cancer Maternal Grandfather Stomach cancer Maternal Grandmother No problems noted. Social History Housing: Apartment Alcohol intake: never Patient Tobacco Use Status: Current someday Tobacco user Tobacco use type: Cigarette Cigarettes Per Day: 3 e-Cigarette/Vaping Use: Never Used Second Hand Smoke Exposure: No service: No Current occupational status: disabled Gender identity: Female Cognitive needs: No Hearing needs: No Vision needs: No Female Reproductive History Menstrual Age of Menarche: 9 Questionnaire Thrive Questionnaire Date Thrive assessed: 06/20/22 JOHN-7 AMB Questionnaire JOHN-7 Date JOHN - 7 assessed: 05/16/23 Feeling nervous, anxious, or on edge: 2 = More than half the days Not being able to stop or control worryin = Several days Worrying too much about different things: 2 = More than half the days Trouble relaxin = More than half the days Being so restless that it is hard to sit still: 0 = Not at all Becoming easily annoyed or irritable: 0 = Not at all Feeling afraid as if something awful might happen: 1 = Several days Total JOHN-7 score (0-4 normal; 5-9 mild; 10-14 moderate; 15-21 severe): 8 Source: Developed by Drs. Sylvester Merlos, Eve Mcclelland, Joby King and colleagues, with an educational pili from [employer]. JOHN-7 Assessment Billing JOHN-7 Assessment Tool: JOHN-7 Assessment 72909 Review of Systems Const All systems reviewed & are unremarkable except as noted in HPI and below Eyes Reports no additional complaints, Denies change in vision and Denies other visual disturbances Card Denies chest pain at rest, Denies chest pain with activity, Denies edema, Denies irregular heart rhythm, Denies claudication, Denies dyspnea, Denies dyspnea on exertion, Denies orthopnea, Denies paroxysmal nocturnal dyspnea and Denies slow heart rate Resp Denies cough, Denies dyspnea and Denies dyspnea on exertion GI Denies abdominal pain, Denies change in bowel habits, Denies excessive flatus, Denies nausea and Denies vomiting Denies urinary incontinence, Denies urinary hesitancy and Denies urinary urgency Musc Denies abnormal gait, Denies atrophy, Denies deformity and Denies limited range of motion Skin/Breast Denies bleeding lesions, Denies changing lesions and Denies rash Neuro Denies abnormal gait and Denies lack of coordination Physical exam (Primary Care) Vital Signs: Last Vital Signs BP 112/82 05/16/23 14:19 BMI result Body Mass Index 27.4 Tobacco/Smoking Status: Tobacco use Status Tobacco use date assessed 03/28/23 05/16/23 14:27 Patient Tobacco Use Status Current someday Tobacco 05/16/23 14:27 Tobacco use type Cigarette 05/16/23 14:27 e-Cigarette/Vaping Use Never Used 05/16/23 14:27 Thrive Assessment: Date of Thrive Assessment Date Thrive assessed 06/20/22 05/16/23 14:27 Eyes General: appearance normal, both eyes and all related structures Eyelids: Yes eyelids normal Conjunctivae: conjunctivae normal Neck Neck: Yes normal visual inspection and Yes supple Resp Effort & Inspection: normal respiratory effort Auscultation: clear to auscultation bilaterally Cardio Jugular venous distension: no JVD Rate: regular rate Rhythm: regular rhythm Heart sounds: S1 normal heart sound present and S2 normal heart sound present Extrem General: Yes full ROM Office Procedures Flu Questionnaire Does the patient have a severe egg allergy?: No Immunizations flu vacc [id number] 6mos up(PF) 60 mcg(15 mcgx4)/0.5 mL IM syringe Performing Provider: Neyda Peres MD [facility] [place] [facility] Documented (not given) by: LENKA Valderrama on 05/16/23 14:42 Reason Not Given: Patient Refused Assessment and Plan Assessment & Plan (1) Mixed hyperlipidemia: Code(s): E78.2 - Mixed hyperlipidemia Plan: Continue statins and fibrates. (2) Moderate recurrent major depression: Code(s): F33.1 - Major depressive disorder, recurrent, moderate Plan: Start venlafaxine. (3) Essential hypertension: Code(s): I10 - Essential (primary) hypertension Plan: Continue hydrochlorothiazide. Blood pressure goal is equal or less than 130/80. (4) Migraine: Code(s): G43.909 - Migraine, unspecified, not intractable, without status migrainosus Qualifiers: Migraine type: ophthalmoplegic Plan: Use naratriptan as needed. Start Emgality. Follow-up with Neurology. Orders: Orders Influenza [id number] Immunization Today Z23 - Encounter for immunization Medications: New fluticasone propionate 44 mcg/actuation (Flovent HFA) administer with spacer 1 puff inhalation BID 30 days 10.6 grams 3RF Coding Level of Care Code Est Pt Level 4 (06787) Diagnoses Mixed hyperlipidemia E78.2 Moderate recurrent major depression F33.1 Essential hypertension I10 Migraine G43.909 Migraine type: ophthalmoplegic Additional Codes JOHN-7 Assessment Billing - JOHN-7 Assessment Tool: JOHN-7 Assessment [id number] ([id number]) Time Spent (min) 24
[2023-05-16 14:19] VITALS: BP 112/82; BMI 27.4
== END 2023-05-16 14:43 | disposition home or self-care (01) ==
PROVIDERS: PCP Internal Medicine; Visit Provider Internal Medicine
DX: E78.2 Mixed hyperlipidemia (principal); F33.1 Major depressive disorder, recurrent, moderate; I10 Essential (primary) hypertension; G43.909 Migraine, unspecified, not intractable, without status migrainosus
CPT/HCPCS: 96127; 99214

== ENCOUNTER → 2023-05-25 13:49 | Outpatient (BNVA) | payer OTHER, SELFPAY | PROVIDERS: PCP Internal Medicine; Visit Provider Nurse Practitioner Family ==

== ENCOUNTER 2023-05-30 14:49 | Emergency (ER) | payer OTHER, SELFPAY ==
--- NOTE | ~2023-05-30 | XR_ITS ---
EXAMINATION: XR CHEST CLINICAL INFORMATION: Chest pain COMPARISON: Previous chest x-ray 2022 TECHNIQUE: 2 views of the chest were obtained. FINDINGS: The cardiac and mediastinal contours are normal. There is a 5 mm right upper lobe nodule that is stable and probably represents a calcified granuloma. The lungs are otherwise clear. No pleural effusion or pneumothorax. Bony structures are normal. XR/XR chest 2V IMPRESSION: No evidence for acute disease in the chest.
--- NOTE | 2023-05-30 14:52 | ECG_ITS ---
Test Reason : CP Blood Pressure : / mmHG Vent. Rate : 080 BPM Atrial Rate : 080 BPM P-R Int : 142 ms QRS Dur : 072 ms QT Int : 374 ms P-R-T Axes : 045 013 007 degrees QTc Int : 431 ms Normal sinus rhythm Nonspecific ST abnormality Abnormal ECG When compared with ECG of 02-MAY-2023 12:57, No significant change was found Referred By: Generic ED Physician Electronically Signed By:Harry Suárez
[2023-05-30 15:14] LABS: MANUAL DIFF FLAG NO
[2023-05-30 15:16] LABS: Basophils Absolute Auto 0.1 X10*3/uL (0.0-0.2); Basophils Percent Auto 0.7 % (0-2); Eosinophils Absolute Auto 0.1 X10*3/uL (0.0-0.4); Eosinophils Percent Auto 1.1 % (0-4); Hematocrit 36.1 % (37.0-47.0); Hemoglobin 11.9 g/dl (12.0-16.0); Imm Gran Abs Auto 0.03 X10*3/uL (0.00-0.03); Imm Gran Pct Auto 0.3 % (0.0-0.4); Lymphocytes Absolute Auto 3.9 X10*3/uL (1.2-4.9); Lymphocytes Percent Auto 38.2 % (20-40); Mean Corpuscular Hemoglobin 27.1 pg (27.0-33.0); Mean Corpuscular Volume 82.2 fL (80.0-98.0); Mean Platelet Volume 9.8 fL (9.4-12.3); Monocytes Absolute Auto 0.5 X10*3/uL (0.1-1.2); Monocytes Percent Auto 5.3 % (2-11); Neutrophils Absolute Auto 5.6 x10*3/uL (2.0-8.3); Neutrophils Percent Auto 54.4 % (45-73); Platelet Count 302 X10*3/uL (160-400); Red Blood Count 4.39 X10*6/uL (4.20-5.50); Red Cell Distribution Width 14.8 % (11.0-16.0); White Blood Count 10.2 X10*3/uL (4.8-10.8)
[2023-05-30 15:27] LABS: Anion Gap 15 (12-20); Blood Urea Nitrogen 18 mg/dL (9-16); Calcium 9.6 mg/dL (8.4-10.2); Carbon Dioxide 28 mmol/L (22-29); Chloride 104 mmol/L (96-108); Estimated Glomerular Filt Rate 51; Glucose Random 111 mg/dL (60-115); Sodium 144 mmol/L (135-145)
--- NOTE | 2023-05-30 15:27 | ED.CHESTPAIN ---
HPI - Chest Pain General Chief Complaint: Chest Pain Stated Complaint: Chest pain, difficulty breathing Time Seen by Provider: 05/30/23 16:05 Source: patient, RN notes reviewed, old records reviewed and electronics specialist Mode of arrival: ambulatory Limitations: language barrier History of Present Illness HPI narrative: Pt is a 52yo female who presents to the ED with reproducible cp and difficulty breathing for the past 3 days. 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 Marinelli Related Data Previous Rx's Medication Instructions Recorded albuterol sulfate 90 mcg/actuation 2 puff PO Q4H PRN bronchospasm 30 05/24/21 aerosol inhaler days #8.5 grams hydrochlorothiazide 25 mg tablet 25 mg PO DAILY 30 days #30 tabs 09/02/22 blood pressure monitor (Blood #1 ea 09/06/22 Pressure Kit) cane #1 ea 09/06/22 loratadine 10 mg tablet 10 mg PO DAILY PRN for allergies 09/14/22 30 days #30 tabs acetaminophen 500 mg tablet 1,000 mg (2 x 500 mg) PO TID PRN 10/07/22 pain #20 tabs fluticasone propionate 50 2 spray intranasal Q12H 30 days 10/30/22 mcg/actuation nasal #16 grams spray,suspension (Flonase Allergy Relief) fenofibrate 54 mg tablet 54 mg PO DAILY 90 days #90 tabs 01/12/23 vierxahhug-ywgxabbdixhwp-bklkjdin 1 cap PO Q8H PRN pain #20 caps 01/16/23 50 mg-300 mg-40 mg capsule (Fioricet) sxvywcmouw-wkkabjqzfpxlf-grbjvlrg 1 cap PO Q4-6H PRN headache #10 02/17/23 50 mg-300 mg-40 mg capsule caps (Fioricet) cyclobenzaprine 10 mg tablet 10 mg PO TID PRN muscle spasm #10 02/27/23 tabs cholecalciferol (vitamin D3) 50 50 mcg PO DAILY 90 days #90 tabs 10/11/23 mcg (2,000 unit) tablet prednisone 20 mg tablet 20 mg PO DAILY #5 tabs 03/28/23 underpads (Bed Underpads) #100 ea 03/28/23 walker #1 ea 03/28/23 clonazepam 0.5 mg tablet 0.5 mg PO BEDTIME PRN anxiety 30 04/01/23 days #60 tabs tramadol 50 mg tablet 50 mg PO TID PRN severe pain 04/08/23 (scale score 7-10) #12 tabs atorvastatin 20 mg tablet 20 mg PO BEDTIME 90 days #90 tabs 04/13/23 galcanezumab-gnlm 120 mg/mL 120 mg subcut ONCE 30 days #1 mL 04/20/23 subcutaneous pen injector (Emgality Pen) magnesium oxide 400 mg (241.3 mg 400 mg PO BEDTIME 30 days #30 tabs 04/20/23 magnesium) tablet naratriptan 2.5 mg tablet See Rx Instructions PO .COMPLEX 04/20/23 PRN migraine headache 30 days #12 tabs riboflavin (vitamin B2) 400 mg 400 mg PO DAILY 30 days #30 tabs 04/20/23 tablet ipratropium 20 mcg-albuterol 100 1 puff PO QID 30 days #25 mL 04/23/23 mcg/actuation mist for inhalation (Combivent Respimat) venlafaxine 37.5 mg 37.5 mg PO BEDTIME 90 days #90 caps 05/13/23 capsule,extended release 24 hr tramadol 50 mg tablet 50 mg PO BID PRN severe pain 05/14/23 (scale score 7-10) 30 days #60 tabs fluticasone propionate 44 1 puff inhalation BID 30 days 05/16/23 mcg/actuation HFA aerosol inhaler #10.6 grams (Flovent HFA) potassium chloride 20 mEq 20 meq PO DAILY #30 tabs 05/29/23 tablet,extended release Allergies Allergy/AdvReac Type Severity Reaction Status Date / Time amitriptyline Allergy Intermediate headache Verified 05/30/23 15:28 ibuprofen [From Motrin] Allergy Intermediate ITCHY RASH Verified 05/30/23 15:28 gabapentin AdvReac Intermediate vomiting Verified 05/30/23 15:28 Review of Systems Constitutional: Constitutional: Denies chills, Denies fever(s) and Reports headache(s) Eyes: Eyes: Denies blurry vision ENT: Reports headache(s) and Denies sore throat Cardiovascular: Cardiovascular: Reports chest pain, Reports chest pain with activity and Reports dyspnea Respiratory: Respiratory: Reports cough and Reports dyspnea Gastrointestinal: Gastrointestinal: Denies abdominal pain, Denies nausea and Denies vomiting Musculoskeletal: Musculoskeletal: Denies back pain Integumentary/Breasts: Skin/Breast: Denies rash Neurologic: Reports headache(s) [facility] Past Medical History Medical History (Updated 05/30/23 @ 17:42 by Ashu Azevedo) Acute maxillary sinusitis Otitis externa Hospital discharge follow-up Microscopic hematuria Physical exam Goiter Blurry vision Tobacco dependence Has daytime drowsiness Pulmonary nodules Moderate recurrent major depression Dyspnea Hand pain Skin lesion Leg pain, bilateral Dyslipidemia Epigastric pain Essential hypertension Cervical cancer screening GERD (gastroesophageal reflux disease) HTN (hypertension) Migraine Anxiety Depression Right lower quadrant pain Fibromyalgia Surgical History History of breast lump/mass excision History of lithotripsy H/O LEEP H/O tubal ligation Family History Family History Father Myocardial infarction Mother Lung cancer Brother Liver cancer Maternal Grandfather Stomach cancer Maternal Grandmother No problems noted. Social History Social History Housing: Apartment Alcohol intake: never Patient Tobacco Use Status: Current someday Tobacco user Tobacco use type: Cigarette Cigarettes Per Day: 3 Smoked in Last 30 Days: Yes e-Cigarette/Vaping Use: Never Used Second Hand Smoke Exposure: No Use of substances other than those prescribed or required for medical reasons: No Advance Directives: No Advance Directives Information Provided: No service: No Current occupational status: disabled Gender identity: Female Cognitive needs: No Hearing needs: No Vision needs: No Physical Exam Vital Signs: Vital Signs: Last Vital Signs Temp 98.3 F 05/30/23 15:28 Pulse 77 05/30/23 16:29 Resp 16 05/30/23 16:29 BP 117/77 05/30/23 16:29 Pulse Ox 96 05/30/23 16:29 O2 Del Method Room Air 05/30/23 16:29 BMI result Body Mass Index 28.1 Const: General: healthy appearing, comfortable, no acute distress, alert and awake Nutritional Appearance: well nourished Orientation/consciousness: patient oriented x3 HEENT: Head: Yes normocephalic and Yes atraumatic Eyes: Eyelids: Yes eyelids normal Conjunctivae: conjunctivae normal Sclerae: sclerae normal Corneas: corneas normal Pupils: Equal, round and reactive pupils present EOM: EOMs intact bilaterally Neck: Neck: Yes full ROM Resp: Effort & Inspection: normal respiratory effort, able to speak in complete sentences, no audible wheezes and not labored Auscultation: clear to auscultation bilaterally Cardio: Rate: regular rate Rhythm: regular rhythm GI: Inspection: No distended Palpation (GI): Soft to palpation, not firm, nontender, no guarding and not rigid Skin: General skin exam: elasticity normal Neuro: General: patient oriented x3 Cranial nerves: Yes Equal, round and reactive pupils present and Yes Bilaterally intact EOM present Cognition (Neuro): normal cognition Course Course Course Narrative: RME: 52yo F wPMHx migraines, HLD, HTN, GERD, fibromyalgia, c/o COVID+ Thanksgiving week, now with 3 days of subj fever, CP, SOB, decreased appetite, weakness, orthopnea. Also reports pain in the back of lungs denies pedal edema. has been sleeping in chair EKG, Labs, CXR, Viral testing ordered Full HPI, ROS and PE to be performed by primary ED provider. Medications Administered Discontinued Medications Generic Name Dose Route Start Last Admin Trade Name Freq PRN Reason Stop Dose Admin Potassium Chloride 40 meq 05/30/23 16:30 05/30/23 17:00 Potassium Chloride Er 20 Meq Tab.Er.Prt PO 05/30/23 16:31 40 meq ONCE ONE Administration Medical Decision Making Medical Decision Making [facility] Narrative: 52-year-old female presents for evaluation of chest pain and shortness of breath. Plan for EKG, labs, repeat viral swab. Given the recent COVID infection on lab D-dimer. She has no risk factors for PE however. Symptoms may be related to costochondritis. Differential Diagnosis Differential Diagnoses: The differential diagnosis associated with the presentation includes Chest pain Bronchitis Costochondritis PE Upper respiratory infection Admission/Observation Consideration of admission/observation: Escalation of care including admission/observation considered Patient presenting for chest pain, shortness of that, she was ruled out for significant pathology that would require admission Lab Data MDM Lab Attestation statement: I reviewed the patient's lab results. No leukocytosis, a mild normocytic anemia consistent with recent baseline. Normal platelet count. Normal sodium count. Potassium was slightly low at 3.0. The patient has not experienced any vomiting. She has a history of hyperkalemia. This can be repleted orally. Patient's BUN is just above normal with a normal creatinine of 1.11 05/30/23 15:10 05/30/23 15:10 Labs: Lab Results 05/30/23 05/30/23 Range/Units 15:10 16:42 WBC 10.2 (4.8-10.8) X10*3/uL RBC 4.39 (4.20-5.50) X10*6/uL Hgb 11.9 L (12.0-16.0) g/dl Hct 36.1 L (37.0-47.0) % MCV 82.2 (80.0-98.0) fL MCH 27.1 (27.0-33.0) pg MCHC 33.0 (31.0-35.0) g/dl RDW 14.8 (11.0-16.0) % Plt Count 302 (160-400) X10*3/uL MPV 9.8 (9.4-12.3) fL Immature Gran % (Auto) 0.3 (0.0-0.4) % Neut % (Auto) 54.4 (45-73) % Lymph % (Auto) 38.2 (20-40) % Dawes % (Auto) 5.3 (2-11) % Eos % (Auto) 1.1 (0-4) % Baso % (Auto) 0.7 (0-2) % Lymph # (Auto) 3.9 (1.2-4.9) X10*3/uL Dawes # (Auto) 0.5 (0.1-1.2) X10*3/uL Eos # (Auto) 0.1 (0.0-0.4) X10*3/uL Baso # (Auto) 0.1 (0.0-0.2) X10*3/uL Abs Immat Gran (auto) 0.03 (0.00-0.03) X10*3/uL Absolute Neuts (auto) 5.6 (2.0-8.3) x10*3/uL Absolute Nucleated RBC 0.000 (0.0-0.012) X10*3/uL Nucleated RBC % (auto) 0.0 (0.0-0.2) /100WBC PT 12.1 (11.1-13.3) SEC INR 1.0 (0.9-1.1) D-Dimer High Sensitivty < 150 NG/ML Sodium 144 (135-145) mmol/L Potassium 3.0 L (3.3-5.1) mmol/L Chloride 104 (96-108) mmol/L Carbon Dioxide 28 (22-29) mmol/L Anion Gap 15 (12-20) BUN 18 H (9-16) mg/dL Creatinine 1.11 (0.5-1.4) mg/dL Estim Creat Clear Calc TNP Estimated GFR 51 Random Glucose 111 (60-115) mg/dL Calcium 9.6 (8.4-10.2) mg/dL Magnesium 1.9 (1.6-2.6) mg/dL Total Bilirubin 0.3 (0.0-1.0) mg/dL Direct Bilirubin 0.1 (0.0-0.5) mg/dL AST 14 (5-31) U/L ALT 10 (0-31) U/L Alkaline Phosphatase 95 (39-117) U/L Troponin I High Sens < 2.7 (<3.5-17.0) ng/L B-Natriuretic Peptide 40 (<100) pg/mL Total Protein 7.6 (6.5-8.0) g/dL Albumin 4.2 (3.5-5.0) g/dL Influenza Type A (PCR) NEGATIVE (Negative) Influenza Type B (PCR) NEGATIVE (Negative) RSV RNA Qual (PCR) NEGATIVE (Negative) SARS-CoV-2 RNA (RT-PCR) NEGATIVE (Negative) Independent Interpretation I performed an independent interpretation of an: EKG (Normal sinus rhythm with a rate of 80 beats per minute. No ST segment changes.) and Plain X-Ray (No infiltrate) Radiology Impression Discussion of test interpretation with radiology: I have reviewed the radiologist's reading. Radiologist Impression: No evidence for acute disease in the chest Discharge Plan Discharge Clinical Impression: Chest pain, Acute hypokalemia Patient Disposition: Home, Self-Care Instructions: Costochondritis (ED) Additional Instructions: Your workup in the emergency department today was reassuring. Your pain is likely related to costochondritis This is inflammation of your ribs which is common after a virus such as COVID Use ibuprofen as needed for pain Chest x-ray was clear, EKG was reassuring Your potassium was slightly low today at 3.0, have this recheck by her primary doctor within 2 weeks Prescriptions: No Action albuterol sulfate 90 mcg/actuation HFA aerosol inhaler 2 puff PO Q4H PRN (Reason: bronchospasm) 30 Days Qty: 8.5 6RF hydrochlorothiazide 25 mg tablet 25 mg PO DAILY 30 Days Qty: 30 11RF (DME) blood pressure monitor [Blood Pressure Kit] Kit See Rx Instructions .ROUTE .MEDSUPPLY Qty: 1 0RF Rx Instructions: As directed (DME) cane Device See Rx Instructions .Route Qty: 1 0RF Rx Instructions: As directed fluticasone propionate [Flonase Allergy Relief] 50 mcg/actuation spray,suspension 2 spray intranasal Q12H 30 Days Qty: 16 0RF Rx Instructions: administer into each nostril fenofibrate 54 mg tablet 54 mg PO DAILY 90 Days Qty: 90 1RF cyclobenzaprine 10 mg tablet 10 mg PO TID PRN (Reason: muscle spasm) Qty: 10 0RF (DME) walker Misc See Rx Instructions .Route Qty: 1 0RF Rx Instructions: To be use lifetime (DME) underpads [Bed Underpads] Pad See Rx Instructions .Route Qty: 100 0RF Rx Instructions: As directed clonazepam 0.5 mg tablet 0.5 mg PO BEDTIME PRN (Reason: anxiety) 30 Days Qty: 60 0RF atorvastatin 20 mg tablet 20 mg PO BEDTIME 90 Days Qty: 90 1RF Combivent Respimat 20-100 mcg/actuation mist 1 puff PO QID 30 Days Qty: 25 1RF Patient Comments: Pulmo given venlafaxine 37.5 mg capsule,extended release 24hr 37.5 mg PO BEDTIME 90 Days Qty: 90 0RF tramadol 50 mg tablet 50 mg PO BID PRN (Reason: severe pain (scale score 7-10)) 30 Days Qty: 60 0RF potassium chloride 20 mEq tablet extended release 20 meq PO DAILY Qty: 30 0RF acetaminophen 500 mg tablet 1,000 mg PO TID PRN (Reason: pain) Qty: 20 0RF nrmnvdaxeq-lldfzdadyyjqo-gtqw [Fioricet] 50-300-40 mg capsule 1 cap PO Q8H PRN (Reason: pain) Qty: 20 0RF wqljmwlboq-caiclsxxnmghf-frwp [Fioricet] 50-300-40 mg capsule 1 cap PO Q4-6H PRN (Reason: headache) Qty: 10 0RF tramadol 50 mg tablet 50 mg PO TID PRN (Reason: severe pain (scale score 7-10)) Qty: 12 0RF prednisone 20 mg tablet 20 mg PO DAILY Qty: 5 0RF cholecalciferol (vitamin D3) 50 mcg (2,000 unit) tablet 50 mcg PO DAILY 90 Days Qty: 90 1RF fluticasone propionate [Flovent HFA] 44 mcg/actuation HFA aerosol inhaler 1 puff inhalation BID 30 Days Qty: 10.6 3RF Rx Instructions: administer with spacer loratadine 10 mg tablet 10 mg PO DAILY PRN (Reason: for allergies) 30 Days Qty: 30 1RF Emgality Pen 120 mg/mL pen injector 120 mg subcut ONCE 30 Days Qty: 1 6RF magnesium oxide 400 mg (241.3 mg magnesium) tablet 400 mg PO BEDTIME 30 Days Qty: 30 6RF Rx Instructions: may hold for loose stools naratriptan 2.5 mg tablet See Rx Instructions PO .COMPLEX PRN (Reason: migraine headache) 30 Days Qty: 12 6RF Rx Instructions: take 1/2 - 1 tab at onset of headache; if no relief may repeat 1 tab after at least 4 hrs; max = 2 tabs/24 hrs orally PRN; riboflavin (vitamin B2) 400 mg tablet 400 mg PO DAILY 30 Days Qty: 30 6RF
[2023-05-30 15:28] VITALS: BP 129/82; PULSE 81; RESP 18; TEMP 36.8; O2SAT 97; BMI 28.1
[2023-05-30 15:39] LABS: Troponin-I High Sensitivity < 2.7 ng/L (<3.5-17.0)
[2023-05-30 16:23] LABS: B Type Natriuretic Peptide 40 pg/mL (<100)
[2023-05-30 16:29] VITALS: BP 117/77; PULSE 77; RESP 16; O2SAT 96
[2023-05-30 16:47] LABS: Alanine Aminotransferase 10 U/L (0-31); Albumin Level 4.2 g/dL (3.5-5.0); Alkaline Phosphatase 95 U/L (39-117); Aspartate Amino Transferase 14 U/L (5-31); Bilirubin Direct 0.1 mg/dL (0.0-0.5); Bilirubin Total 0.3 mg/dL (0.0-1.0); Magnesium 1.9 mg/dL (1.6-2.6); Total Protein 7.6 g/dL (6.5-8.0)
[2023-05-30 16:55] LABS: Prothrombin Time 12.1 SEC (11.1-13.3)
[2023-05-30] MEDS: Potassium Chloride ER 20 MEQ TAB.ER.PRT 40 MEQ PO (17:00)
[2023-05-30 17:28] LABS: Influenza A PCR NEGATIVE (Negative); Influenza B PCR NEGATIVE (Negative); Resp Syncy Virus RNA Qual PCR NEGATIVE (Negative); SARS COV2 PCR INHOUSE NEGATIVE (Negative)
[2023-05-30 17:38] LABS: D Dimer High Sensitivity < 150 NG/ML
== END 2023-05-30 18:12 | disposition home or self-care (01) ==
PROVIDERS: Physician Assistant; Emergency Provider Internal Medicine; PCP Internal Medicine
DX: R07.9 Chest pain, unspecified (principal); E87.6 Hypokalemia; R06.02 Shortness of breath; Z20.822 Contact with and (suspected) exposure to COVID-19; Z20.828 Contact with and (suspected) exposure to other viral communicable diseases; I10 Essential (primary) hypertension; E78.5 Hyperlipidemia, unspecified; F17.210 Nicotine dependence, cigarettes, uncomplicated; Z79.899 Other long term (current) drug therapy; Z79.02 Long term (current) use of antithrombotics/antiplatelets
CPT/HCPCS: 0241U; 36415; 71046; 80048; 80076; 83735; 83880; 84484; 85025; 85379; 85610; 93005; 99283; 99284

== ENCOUNTER → 2023-05-30 14:52 | Outpatient (BNV) | payer OTHER, SELFPAY | PROVIDERS: Emergency Provider Internal Medicine; PCP Internal Medicine; Visit Provider Internal Medicine Cardiovascular Disease | DX: R94.31 Abnormal electrocardiogram [ECG] [EKG] (principal); R07.9 Chest pain, unspecified | CPT/HCPCS: 93010 ==

== ENCOUNTER 2023-07-04 14:12 | Outpatient (REF) | payer OTHER, SELFPAY ==
--- NOTE | ~2023-07-04 | MR_ITS ---
EXAMINATION: MR BRAIN WITHOUT CONTRAST CLINICAL INFORMATION: Headache COMPARISON: CT head without contrast 05/02/2023 TECHNIQUE: Multiplanar multisequence MR imaging of the brain was obtained without intravenous contrast. FINDINGS: There is no acute infarct on diffusion-weighted imaging. There is no intracranial hemorrhage on iron-sensitive imaging. No extra-axial collection or mass effect/herniation. Scattered periventricular and deep white matter T2 FLAIR hyperintensities consistent with mild underlying microangiopathy. No hydrocephalus. The ventricles are normal in morphology and size. The major flow voids at the skull base are preserved. The midline structures are normal. The cerebellar tonsils are normally positioned. The craniocervical junction is normal. Marrow signal is within normal limits. The visualized soft tissues are without significant abnormality. Small left maxillary sinus retention cyst. MR/MR head/brain wo con IMPRESSION: Mild chronic white matter microangiopathy. Otherwise unremarkable noncontrast MRI of the brain.
== END 2023-07-04 14:13 | disposition home or self-care (01) ==
LOC: HO.MRI 14:12
PROVIDERS: PCP Internal Medicine; Visit Provider Internal Medicine
DX: R51.9 Headache, unspecified (principal)
CPT/HCPCS: 70551

== ENCOUNTER 2023-07-25 13:51 | Outpatient (AMB) | payer OTHER, SELFPAY ==
--- NOTE | 2023-07-25 14:10 | A.OFFVIS_ITS ---
Intake Vital Signs 07/25/23 14:14 Height 5 ft 1 in Weight 147 lb BMI 27.8 BP 116/76 Blood Pressure Location Rt brachial Position Sitting Pulse 83 Pulse Source Pulse Oximeter Pulse Oximetry (%) 97 Oxygen Delivery Method Room Air Intake Visit Reasons: 3 mnts f/u appt for Headaches-Confirmed Intake Note: Patient presents for 3 months follow up appointment. Allergies amitriptyline Allergy (Intermediate, Verified 08/06/23 15:33) headache ibuprofen [From Motrin] Allergy (Intermediate, Verified 08/06/23 15:33) ITCHY RASH gabapentin Adverse Reaction (Intermediate, Verified 08/06/23 15:33) vomiting [facility] Medical History (Updated 08/09/23 @ 00:01 by Gonsalo Guadarrama) Acute maxillary sinusitis Otitis externa Hospital discharge follow-up Microscopic hematuria Physical exam Goiter Blurry vision Tobacco dependence Has daytime drowsiness Pulmonary nodules Moderate recurrent major depression Dyspnea Hand pain Skin lesion Leg pain, bilateral Dyslipidemia Epigastric pain Essential hypertension Cervical cancer screening GERD (gastroesophageal reflux disease) HTN (hypertension) Migraine Anxiety Depression Right lower quadrant pain Fibromyalgia Surgical History History of breast lump/mass excision History of lithotripsy H/O LEEP H/O tubal ligation Family History Father Myocardial infarction Mother Lung cancer Brother Liver cancer Maternal Grandfather Stomach cancer Maternal Grandmother No problems noted. Social History Housing: Apartment Alcohol intake: never Patient Tobacco Use Status: Current someday Tobacco user Tobacco use type: Cigarette Cigarettes Per Day: 3 e-Cigarette/Vaping Use: Never Used Second Hand Smoke Exposure: No Advance Directives: No Advance Directives Information Provided: No service: No Current occupational status: disabled Gender identity: Female Cognitive needs: No Hearing needs: No Vision needs: No Female Reproductive History Menstrual Age of Menarche: 9 Physical Exam Vital Signs: Last Vital Signs Pulse 83 07/25/23 14:14 BP 116/76 07/25/23 14:14 Pulse Ox 97 07/25/23 14:14 Oxygen Delivery Method Room Air 07/25/23 14:14 BMI result Body Mass Index 27.8 Assessment & Plan Assessment & Plan (1) Migraine: Code(s): G43.909 - Migraine, unspecified, not intractable, without status migrainosus Qualifiers: Migraine type: ophthalmoplegic Plan Pt left prior to being seen by OFFICE NURSE PRACTITIONER- rescheduled to 07/27, but did not come to appt. Quality Reporting (2019) Adult ([facility] 138/08/09/68) Smoking risk assessment performed?: Yes Patient Tobacco Use Status: Current someday Tobacco user Coding Level of Care Code Est Pt Level 1 (23279) Diagnoses Migraine G43.909 Migraine type: ophthalmoplegic
[2023-07-25 14:14] VITALS: BP 116/76; PULSE 83; O2SAT 97; BMI 27.8
== END 2023-07-25 14:38 | disposition left against medical advice (07) ==
PROVIDERS: PCP Internal Medicine; Visit Provider Nurse Practitioner Family
DX: G43.909 Migraine, unspecified, not intractable, without status migrainosus (principal)

== ENCOUNTER → 2023-07-25 13:51 | Outpatient (BNVA) | payer OTHER, SELFPAY | PROVIDERS: PCP Internal Medicine; Visit Provider Nurse Practitioner Family | DX: G43.909 Migraine, unspecified, not intractable, without status migrainosus (principal) | CPT/HCPCS: 99211 ==

== ENCOUNTER 2023-08-06 14:50 | Emergency (ER) | payer OTHER, SELFPAY ==
--- NOTE | 2023-08-06 14:57 | ECG_ITS ---
Test Reason : CHEST PAIN Blood Pressure : / mmHG Vent. Rate : 082 BPM Atrial Rate : 082 BPM P-R Int : 136 ms QRS Dur : 074 ms QT Int : 360 ms P-R-T Axes : 048 009 013 degrees QTc Int : 420 ms Normal sinus rhythm Nonspecific ST abnormality Abnormal ECG When compared with ECG of 30-MAY-2023 15:04, No significant change was found Referred By: Generic ED Physician Electronically Signed By:MARILU MANN MD
[2023-08-06 15:33] VITALS: BP 150/91; PULSE 76; RESP 16; TEMP 36.9; O2SAT 97; BMI 28.9
--- NOTE | 2023-08-06 15:33 | ED.CHESTPAIN ---
HPI - Chest Pain General Chief Complaint: Chest Pain Stated Complaint: Chest pain/R ear pain/Headache Related Data Previous Rx's Medication Instructions Recorded blood pressure monitor (Blood #1 ea 09/06/22 Pressure Kit) cane #1 ea 09/06/22 loratadine 10 mg tablet 10 mg PO DAILY PRN for allergies 09/14/22 30 days #30 tabs acetaminophen 500 mg tablet 1,000 mg (2 x 500 mg) PO TID PRN 10/07/22 pain #20 tabs fluticasone propionate 50 2 spray intranasal Q12H 30 days 10/30/22 mcg/actuation nasal #16 grams spray,suspension (Flonase Allergy Relief) fenofibrate 54 mg tablet 54 mg PO DAILY 90 days #90 tabs 01/12/23 gzudxejydc-bxrzzsqjskdal-vacnjdys 1 cap PO Q8H PRN pain #20 caps 01/16/23 50 mg-300 mg-40 mg capsule (Fioricet) potamsdpdi-akmkzadiijald-krvjmfcs 1 cap PO Q4-6H PRN headache #10 02/17/23 50 mg-300 mg-40 mg capsule caps (Fioricet) cyclobenzaprine 10 mg tablet 10 mg PO TID PRN muscle spasm #10 02/27/23 tabs cholecalciferol (vitamin D3) 50 50 mcg PO DAILY 90 days #90 tabs 03/28/23 mcg (2,000 unit) tablet prednisone 20 mg tablet 20 mg PO DAILY #5 tabs 03/28/23 underpads (Bed Underpads) #100 ea 03/28/23 walker #1 ea 03/28/23 tramadol 50 mg tablet 50 mg PO TID PRN severe pain 04/08/23 (scale score 7-10) #12 tabs atorvastatin 20 mg tablet 20 mg PO BEDTIME 90 days #90 tabs 04/13/23 galcanezumab-gnlm 120 mg/mL 120 mg subcut ONCE 30 days #1 mL 04/20/23 subcutaneous pen injector (Emgality Pen) magnesium oxide 400 mg (241.3 mg 400 mg PO BEDTIME 30 days #30 tabs 04/20/23 magnesium) tablet naratriptan 2.5 mg tablet See Rx Instructions PO .COMPLEX 04/20/23 PRN migraine headache 30 days #12 tabs riboflavin (vitamin B2) 400 mg 400 mg PO DAILY 30 days #30 tabs 04/20/23 tablet fluticasone furoate 50 1 inh inhalation DAILY 30 days #30 06/22/23 mcg/actuation blister powder for ea inhalation (Arnuity Ellipta) hydrochlorothiazide 25 mg tablet 25 mg PO DAILY 30 days #30 tabs 06/26/23 ipratropium 20 mcg-albuterol 100 1 puff PO QID 30 days #25 mL 06/26/23 mcg/actuation mist for inhalation (Combivent Respimat) venlafaxine 37.5 mg 37.5 mg PO BEDTIME 90 days #90 caps 06/26/23 capsule,extended release 24 hr albuterol sulfate 90 mcg/actuation 2 puff PO Q4H PRN bronchospasm 30 06/27/23 aerosol inhaler days #8.5 grams potassium chloride 20 mEq 20 meq PO DAILY #30 tabs 06/29/23 tablet,extended release clonazepam 0.5 mg tablet 0.5 mg PO BEDTIME PRN anxiety 30 08/07/23 days #60 tabs tramadol 50 mg tablet 50 mg PO BID PRN severe pain 08/07/23 (scale score 7-10) 30 days #60 tabs Allergies Allergy/AdvReac Type Severity Reaction Status Date / Time amitriptyline Allergy Intermediate headache Verified 08/06/23 15:33 ibuprofen [From Motrin] Allergy Intermediate ITCHY RASH Verified 08/06/23 15:33 gabapentin AdvReac Intermediate vomiting Verified 08/06/23 15:33 [facility] Past Medical History Medical History (Updated 08/08/23 @ 20:22 by MARLENA Miranda) Acute maxillary sinusitis Otitis externa Hospital discharge follow-up Microscopic hematuria Physical exam Goiter Blurry vision Tobacco dependence Has daytime drowsiness Pulmonary nodules Moderate recurrent major depression Dyspnea Hand pain Skin lesion Leg pain, bilateral Dyslipidemia Epigastric pain Essential hypertension Cervical cancer screening GERD (gastroesophageal reflux disease) HTN (hypertension) Migraine Anxiety Depression Right lower quadrant pain Fibromyalgia Surgical History History of breast lump/mass excision History of lithotripsy H/O LEEP H/O tubal ligation Family History Family History Father Myocardial infarction Mother Lung cancer Brother Liver cancer Maternal Grandfather Stomach cancer Maternal Grandmother No problems noted. Social History Social History Housing: Apartment Alcohol intake: never Patient Tobacco Use Status: Current someday Tobacco user Tobacco use type: Cigarette Cigarettes Per Day: 3 e-Cigarette/Vaping Use: Never Used Second Hand Smoke Exposure: No Advance Directives: No Advance Directives Information Provided: No service: No Current occupational status: disabled Gender identity: Female Cognitive needs: No Hearing needs: No Vision needs: No Physical Exam Vital Signs: Vital Signs: Last Vital Signs Temp 98.5 F 08/06/23 15:33 Pulse 76 08/06/23 15:33 Resp 16 08/06/23 15:33 BP 150/91 H 08/06/23 15:33 Pulse Ox 97 08/06/23 15:33 O2 Del Method Room Air 08/06/23 15:33 BMI result Body Mass Index 28.9 Course Course Course Narrative: RME: 52 year-old F w/ PMHx GERD, HTN, migraine, fibromyalgia, anxiety/depression presenting to the ED c/o R ear pain, headache, SOB, CP, myalgias, anxious, off balance, nausea x yesterday Ambulating w/steady gait EKG, Labs, Viral studies, CXR ordered Full HPI, ROS and PE to be performed by primary ED provider. Medical Decision Making Lab Data 08/06/23 15:53 08/06/23 15:53 Labs: Lab Results 08/06/23 08/06/23 Range/Units 15:33 15:53 WBC 9.6 (4.8-10.8) X10*3/uL RBC 4.89 (4.20-5.50) X10*6/uL Hgb 13.1 (12.0-16.0) g/dl Hct 40.2 (37.0-47.0) % MCV 82.2 (80.0-98.0) fL MCH 26.8 L (27.0-33.0) pg MCHC 32.6 (31.0-35.0) g/dl RDW 15.3 (11.0-16.0) % Plt Count 292 (160-400) X10*3/uL MPV 9.5 (9.4-12.3) fL Immature Gran % (Auto) 0.3 (0.0-0.4) % Neut % (Auto) 52.5 (45-73) % Lymph % (Auto) 38.5 (20-40) % [place] % (Auto) 6.3 (2-11) % Eos % (Auto) 1.8 (0-4) % Baso % (Auto) 0.6 (0-2) % Lymph # (Auto) 3.7 (1.2-4.9) X10*3/uL [place] # (Auto) 0.6 (0.1-1.2) X10*3/uL Eos # (Auto) 0.2 (0.0-0.4) X10*3/uL Baso # (Auto) 0.1 (0.0-0.2) X10*3/uL Abs Immat Gran (auto) 0.03 (0.00-0.03) X10*3/uL Absolute Neuts (auto) 5.1 (2.0-8.3) x10*3/uL Absolute Nucleated RBC 0.000 (0.0-0.012) X10*3/uL Nucleated RBC % (auto) 0.0 (0.0-0.2) /100WBC Sodium 140 (135-145) mmol/L Potassium 3.2 L (3.3-5.1) mmol/L Chloride 102 (96-108) mmol/L Carbon Dioxide 28 (22-29) mmol/L Anion Gap 13 (12-20) BUN 20 H (9-16) mg/dL Creatinine 0.95 (0.5-1.4) mg/dL Estim Creat Clear Calc 57.8 Estimated GFR > 60 Random Glucose 81 (60-115) mg/dL Calcium 10.1 (8.4-10.2) mg/dL Magnesium 1.9 (1.6-2.6) mg/dL Total Bilirubin 0.4 (0.0-1.0) mg/dL Direct Bilirubin 0.1 (0.0-0.5) mg/dL AST 13 (5-31) U/L ALT 14 (0-31) U/L Alkaline Phosphatase 111 (39-117) U/L Troponin I High Sens < 2.7 (<3.5-17.0) ng/L Total Protein 7.5 (6.5-8.0) g/dL Albumin 4.0 (3.5-5.0) g/dL Urine Color Yellow Urine Appearance Clear Urine pH 6.0 (5.0-9.0) Ur Specific [place] 1.015 (1.005-1.025) Urine Protein Negative (Neg-Trace) mg/dL Urine Glucose (UA) Negative (Negative) mg/dL Urine Ketones Negative (Negative) mg/dL Urine Blood Small (1+) H (Negative) Urine Nitrite Negative (Negative) Ur Leukocyte Esterase Negative (Negative) Urine RBC 6-10 H (0-2) /HPF Urine WBC 0-5 (0-5) /HPF Ur Squamous Epith Cells 3-5 (0-2) /HPF Urine Bacteria None Seen (None Seen) Hyaline Casts 0-2 (0-2) /LPF Influenza Type A (PCR) NEGATIVE (Negative) Influenza Type B (PCR) NEGATIVE (Negative) RSV RNA Qual (PCR) NEGATIVE (Negative) SARS-CoV-2 RNA (RT-PCR) NEGATIVE (Negative) Discharge Plan Discharge Clinical Impression: Chest pain Patient Disposition: Left W/O Completing Treatment Prescriptions: No Action (DME) blood pressure monitor [Blood Pressure Kit] Kit See Rx Instructions .ROUTE .MEDSUPPLY Qty: 1 0RF Rx Instructions: As directed (DME) cane Device See Rx Instructions .Route Qty: 1 0RF Rx Instructions: As directed fluticasone propionate [Flonase Allergy Relief] 50 mcg/actuation spray,suspension 2 spray intranasal Q12H 30 Days Qty: 16 0RF Rx Instructions: administer into each nostril fenofibrate 54 mg tablet 54 mg PO DAILY 90 Days Qty: 90 1RF cyclobenzaprine 10 mg tablet 10 mg PO TID PRN (Reason: muscle spasm) Qty: 10 0RF (DME) walker Misc See Rx Instructions .Route Qty: 1 0RF Rx Instructions: To be use lifetime (DME) underpads [Bed Underpads] Pad See Rx Instructions .Route Qty: 100 0RF Rx Instructions: As directed atorvastatin 20 mg tablet 20 mg PO BEDTIME 90 Days Qty: 90 1RF Arnuity Ellipta 50 mcg/actuation blister with device 1 inh inhalation DAILY 30 Days Qty: 30 6RF venlafaxine 37.5 mg capsule,extended release 24hr 37.5 mg PO BEDTIME 90 Days Qty: 90 0RF hydrochlorothiazide 25 mg tablet 25 mg PO DAILY 30 Days Qty: 30 11RF Combivent Respimat 20-100 mcg/actuation mist 1 puff PO QID 30 Days Qty: 25 1RF Patient Comments: Pulmo given albuterol sulfate 90 mcg/actuation HFA aerosol inhaler 2 puff PO Q4H PRN (Reason: bronchospasm) 30 Days Qty: 8.5 6RF potassium chloride 20 mEq tablet extended release 20 meq PO DAILY Qty: 30 0RF clonazepam 0.5 mg tablet 0.5 mg PO BEDTIME PRN (Reason: anxiety) 30 Days Qty: 60 0RF tramadol 50 mg tablet 50 mg PO BID PRN (Reason: severe pain (scale score 7-10)) 30 Days Qty: 60 0RF acetaminophen 500 mg tablet 1,000 mg PO TID PRN (Reason: pain) Qty: 20 0RF rfoqrjzaum-plolybmhcoodh-kbga [Fioricet] 50-300-40 mg capsule 1 cap PO Q8H PRN (Reason: pain) Qty: 20 0RF jnagdzyccn-teefbgsarznla-jxmu [Fioricet] 50-300-40 mg capsule 1 cap PO Q4-6H PRN (Reason: headache) Qty: 10 0RF tramadol 50 mg tablet 50 mg PO TID PRN (Reason: severe pain (scale score 7-10)) Qty: 12 0RF prednisone 20 mg tablet 20 mg PO DAILY Qty: 5 0RF cholecalciferol (vitamin D3) 50 mcg (2,000 unit) tablet 50 mcg PO DAILY 90 Days Qty: 90 1RF loratadine 10 mg tablet 10 mg PO DAILY PRN (Reason: for allergies) 30 Days Qty: 30 1RF Emgality Pen 120 mg/mL pen injector 120 mg subcut ONCE 30 Days Qty: 1 6RF magnesium oxide 400 mg (241.3 mg magnesium) tablet 400 mg PO BEDTIME 30 Days Qty: 30 6RF Rx Instructions: may hold for loose stools naratriptan 2.5 mg tablet See Rx Instructions PO .COMPLEX PRN (Reason: migraine headache) 30 Days Qty: 12 6RF Rx Instructions: take 1/2 - 1 tab at onset of headache; if no relief may repeat 1 tab after at least 4 hrs; max = 2 tabs/24 hrs orally PRN; riboflavin (vitamin B2) 400 mg tablet 400 mg PO DAILY 30 Days Qty: 30 6RF Discharge Date/Time: 08/06/23 20:18
[2023-08-06 16:01] LABS: MANUAL DIFF FLAG NO
[2023-08-06 16:02] LABS: Basophils Absolute Auto 0.1 X10*3/uL (0.0-0.2); Basophils Percent Auto 0.6 % (0-2); Eosinophils Absolute Auto 0.2 X10*3/uL (0.0-0.4); Eosinophils Percent Auto 1.8 % (0-4); Hematocrit 40.2 % (37.0-47.0); Hemoglobin 13.1 g/dl (12.0-16.0); Imm Gran Abs Auto 0.03 X10*3/uL (0.00-0.03); Imm Gran Pct Auto 0.3 % (0.0-0.4); Lymphocytes Absolute Auto 3.7 X10*3/uL (1.2-4.9); Lymphocytes Percent Auto 38.5 % (20-40); Mean Corpuscular HGB Conc 32.6 g/dl (31.0-35.0); Mean Corpuscular Hemoglobin 26.8 pg (27.0-33.0); Mean Corpuscular Volume 82.2 fL (80.0-98.0); Mean Platelet Volume 9.5 fL (9.4-12.3); Monocytes Absolute Auto 0.6 X10*3/uL (0.1-1.2); Monocytes Percent Auto 6.3 % (2-11); Neutrophils Absolute Auto 5.1 x10*3/uL (2.0-8.3); Neutrophils Percent Auto 52.5 % (45-73); Platelet Count 292 X10*3/uL (160-400); Red Blood Count 4.89 X10*6/uL (4.20-5.50); Red Cell Distribution Width 15.3 % (11.0-16.0); White Blood Count 9.6 X10*3/uL (4.8-10.8)
[2023-08-06 16:04] LABS: Appearance Urine Clear; Color Urine Yellow; Glucose Urine UA Negative (Negative); Leukocyte Esterase Urine Negative (Negative); Nitrite Urine Negative (Negative); Specific Gravity - Urine 1.015 (1.005-1.025); UMIC TRIGGER UACC YES; Urine Blood Small (1+) (Negative); Urine Ketones Negative (Negative); Urine Protein Negative (Neg-Trace)
[2023-08-06 16:09] LABS: Bacteria Urine None Seen (None Seen); Hyaline Casts Urine 0-2 /LPF (0-2); WBC Urine 0-5 /HPF (0-5)
[2023-08-06 16:19] LABS: Alanine Aminotransferase 14 U/L (0-31); Alkaline Phosphatase 111 U/L (39-117); Anion Gap 13 (12-20); Aspartate Amino Transferase 13 U/L (5-31); Bilirubin Direct 0.1 mg/dL (0.0-0.5); Bilirubin Total 0.4 mg/dL (0.0-1.0); Blood Urea Nitrogen 20 mg/dL (9-16); Calcium 10.1 mg/dL (8.4-10.2); Carbon Dioxide 28 mmol/L (22-29); Chloride 102 mmol/L (96-108); Creatinine Clr Calc Pharmacy 57.8; Estimated Glomerular Filt Rate > 60; Glucose Random 81 mg/dL (60-115); Magnesium 1.9 mg/dL (1.6-2.6); Potassium 3.2 mmol/L (3.3-5.1); Sodium 140 mmol/L (135-145); Total Protein 7.5 g/dL (6.5-8.0)
[2023-08-06 16:27] LABS: Troponin-I High Sensitivity < 2.7 ng/L (<3.5-17.0)
[2023-08-06 16:39] LABS: Influenza A PCR NEGATIVE (Negative); Influenza B PCR NEGATIVE (Negative); Resp Syncy Virus RNA Qual PCR NEGATIVE (Negative); SARS COV2 PCR INHOUSE NEGATIVE (Negative)
== END 2023-08-06 20:18 | disposition left against medical advice (07) ==
PROVIDERS: Physician Assistant; Emergency Provider Emergency Medicine; PCP Internal Medicine
DX: R07.89 Other chest pain (principal); R51.9 Headache, unspecified; Z79.899 Other long term (current) drug therapy; Z20.828 Contact with and (suspected) exposure to other viral communicable diseases; Z11.52 Encounter for screening for COVID-19
CPT/HCPCS: 0241U; 36415; 80048; 80076; 81001; 81003; 83735; 84484; 85025; 93005; 99283

== ENCOUNTER → 2023-08-06 14:57 | Outpatient (BNV) | payer OTHER, SELFPAY | PROVIDERS: Emergency Provider Emergency Medicine; PCP Internal Medicine; Visit Provider Internal Medicine Cardiovascular Disease | DX: R07.9 Chest pain, unspecified (principal) | CPT/HCPCS: 93010 ==

== ENCOUNTER 2023-09-10 15:24 | Emergency (ER) | payer OTHER, SELFPAY ==
--- NOTE | ~2023-09-10 | XR_ITS ---
EXAMINATION: XR CHEST CLINICAL INFORMATION: Cough COMPARISON: CXR from 09/01/2021 and 05/30/2023 TECHNIQUE: 2 views of the chest were obtained. FINDINGS: Lungs are well-inflated. There is an old calcified granuloma of the lateral right upper lobe. Trachea is midline in position. No interstitial disease, consolidation or mass. No pleural effusion or pneumothorax. Cardiac silhouette and pulmonary vessels are normal in size. The mediastinum and kris have normal contour. The visualized bones and upper abdomen are unremarkable. XR/XR chest 2V IMPRESSION: No evidence of pneumonia. No acute cardiopulmonary abnormality.
[2023-09-10 16:01] VITALS: BP 149/97; PULSE 93; RESP 16; TEMP 36.7; O2SAT 96; BMI 28.4
--- NOTE | 2023-09-10 16:02 | ED.GENADULT ---
HPI - General Adult General Chief complaint: Upper Respiratory Symptoms Stated complaint: asthma,sob right ear pain Source: patient and vp production (all interactions with this patient occurred via an [facility] vp production) Mode of arrival: ambulatory Limitations: language barrier (all interactions with this patient occurred via an [facility] [place] vp production) History of Present Illness HPI narrative: Patient is a 52 year old assigned female at with a history of anxiety and fibromyalgia presenting to the emergency department today with right ear pain. Patient states that over the last 2 days she has had right ear pain. Patient denies any dizziness, lightheadedness, abdominal pain, nausea, vomiting, fever, chills, blurry vision, double vision, loss of vision, chest pain, difficulty breathing, shortness of breath, back pain, night sweats, pain with urination, increased urinary frequency, increased urinary urgency, blood in her urine or stool, syncope or a near syncopal episode, recent trauma or falls, bowel incontinence, bladder incontinence, bowel retention, bladder retention, or any other complaints at this time. Onset (ago): day(s) (2) Location: right (ear) Severity: mild Severity scale (1-10): 2 Relieving factors: none Exacerbating factors: none Associated symptoms: denies other symptoms Treatments prior to arrival: none Related Data Previous Rx's Medication Instructions Recorded blood pressure monitor (Blood #1 ea 09/06/22 Pressure Kit) cane #1 ea 09/06/22 loratadine 10 mg tablet 10 mg PO DAILY PRN for allergies 09/14/22 30 days #30 tabs acetaminophen 500 mg tablet 1,000 mg (2 x 500 mg) PO TID PRN 10/07/22 pain #20 tabs fluticasone propionate 50 2 spray intranasal Q12H 30 days 10/30/22 mcg/actuation nasal #16 grams spray,suspension (Flonase Allergy Relief) fenofibrate 54 mg tablet 54 mg PO DAILY 90 days #90 tabs 01/12/23 oldioixzdv-dyykmrjybmlaa-hvrqhiau 1 cap PO Q8H PRN pain #20 caps 01/16/23 50 mg-300 mg-40 mg capsule (Fioricet) aizdlzdpnb-jgqrrbuskjuuy-cumynmfy 1 cap PO Q4-6H PRN headache #10 02/17/23 50 mg-300 mg-40 mg capsule caps (Fioricet) cyclobenzaprine 10 mg tablet 10 mg PO TID PRN muscle spasm #10 02/27/23 tabs cholecalciferol (vitamin D3) 50 50 mcg PO DAILY 90 days #90 tabs 03/28/23 mcg (2,000 unit) tablet prednisone 20 mg tablet 20 mg PO DAILY #5 tabs 03/28/23 underpads (Bed Underpads) #100 ea 03/28/23 walker #1 ea 03/28/23 tramadol 50 mg tablet 50 mg PO TID PRN severe pain 04/08/23 (scale score 7-10) #12 tabs atorvastatin 20 mg tablet 20 mg PO BEDTIME 90 days #90 tabs 04/13/23 galcanezumab-gnlm 120 mg/mL 120 mg subcut ONCE 30 days #1 mL 04/20/23 subcutaneous pen injector (Emgality Pen) magnesium oxide 400 mg (241.3 mg 400 mg PO BEDTIME 30 days #30 tabs 04/20/23 magnesium) tablet naratriptan 2.5 mg tablet See Rx Instructions PO .COMPLEX 04/20/23 PRN migraine headache 30 days #12 tabs riboflavin (vitamin B2) 400 mg 400 mg PO DAILY 30 days #30 tabs 04/20/23 tablet fluticasone furoate 50 1 inh inhalation DAILY 30 days #30 06/22/23 mcg/actuation blister powder for ea inhalation (Arnuity Ellipta) hydrochlorothiazide 25 mg tablet 25 mg PO DAILY 30 days #30 tabs 06/26/23 ipratropium 20 mcg-albuterol 100 1 puff PO QID 30 days #25 mL 06/26/23 mcg/actuation mist for inhalation (Combivent Respimat) venlafaxine 37.5 mg 37.5 mg PO BEDTIME 90 days #90 caps 06/26/23 capsule,extended release 24 hr albuterol sulfate 90 mcg/actuation 2 puff PO Q4H PRN bronchospasm 30 06/27/23 aerosol inhaler days #8.5 grams clonazepam 0.5 mg tablet 0.5 mg PO BEDTIME PRN anxiety 30 08/07/23 days #60 tabs potassium chloride 20 mEq 20 meq PO DAILY 30 days #30 tabs 08/29/23 tablet,extended release tramadol 50 mg tablet 50 mg PO BID PRN severe pain 09/07/23 (scale score 7-10) 30 days #60 tabs Allergies Allergy/AdvReac Type Severity Reaction Status Date / Time amitriptyline Allergy Intermediate headache Verified 08/06/23 15:33 ibuprofen [From Motrin] Allergy Intermediate ITCHY RASH Verified 08/06/23 15:33 gabapentin AdvReac Intermediate vomiting Verified 08/06/23 15:33 Review of Systems Constitutional: Constitutional: Reports no additional constitutional complaints, Denies chills, Denies fever(s) and Denies night sweats Eyes: Eyes: Reports no additional eye complaints, Denies blurry vision, Denies change in vision, Denies diplopia, Denies eye discharge, Denies loss of vision and Denies eye pain ENT: Denies dizziness Comments: right ear pain Cardiovascular: Cardiovascular: Reports no additional cardiovascular complaints, Denies chest pain, Denies lightheadedness, Denies Loss of Consciousness and Denies dyspnea Respiratory: Respiratory: Reports no additional respiratory complaints and Denies dyspnea Gastrointestinal: Gastrointestinal: Reports no additional gastrointestinal complaints, Denies abdominal pain, Denies melena, Denies hematochezia, Denies change in bowel habits and Denies change in stool character Genitourinary: Genitourinary: Denies hematuria, Denies urinary frequency, Denies dysuria, Denies urinary incontinence, Denies urinary hesitancy and Denies urinary urgency Musculoskeletal: Musculoskeletal: Reports no additional musculoskeletal complaints, Denies numbness and Denies tingling Neurologic: Denies dizziness, Denies loss of vision, Denies numbness and Denies tingling Psychiatric: Psychiatric: Reports no additional psychiatric complaints Endocrine: Endocrine: Reports no additional endocrine complaints Hematologic/Lymphatic: Hematologic/Lymphatic: Reports no additional hematologic/lymphatic complaints Allergic/Immunologic: Allergic/Immunologic: Reports no additional allergic/immunologic complaints [facility] Past Medical History Attestation statement: The following information was validated with the patient. Source: old records reviewed and nursing notes reviewed Medical History Acute maxillary sinusitis Otitis externa Hospital discharge follow-up Microscopic hematuria Physical exam Goiter Blurry vision Tobacco dependence Has daytime drowsiness Pulmonary nodules Moderate recurrent major depression Dyspnea Hand pain Skin lesion Leg pain, bilateral Dyslipidemia Epigastric pain Essential hypertension Cervical cancer screening GERD (gastroesophageal reflux disease) HTN (hypertension) Migraine Anxiety Depression Right lower quadrant pain Fibromyalgia Surgical History History of breast lump/mass excision History of lithotripsy H/O LEEP H/O tubal ligation Family History Family History Father Myocardial infarction Mother Lung cancer Brother Liver cancer Maternal Grandfather Stomach cancer Maternal Grandmother No problems noted. Social History Social History Housing: Apartment Alcohol intake: never Patient Tobacco Use Status: Current someday Tobacco user Tobacco use type: Cigarette Cigarettes Per Day: 3 e-Cigarette/Vaping Use: Never Used Second Hand Smoke Exposure: No Advance Directives: No Advance Directives Information Provided: No service: No Current occupational status: disabled Gender identity: Female Cognitive needs: No Hearing needs: No Vision needs: No Physical Exam ED Vital Signs: Vital Signs - 24 hr 09/10/23 16:01 Temperature 98.1 F Pulse Rate 93 Respiratory Rate 16 Blood Pressure 149/97 H Pulse Oximetry 96 Oxygen Delivery Method Room Air BMI result Body Mass Index 28.4 Const General: cooperative, no acute distress, alert and awake Nutritional Appearance: well nourished Orientation/consciousness: patient oriented x3 Limitations: no limitations HENMT Head: Yes normal to inspection and Yes atraumatic Ears: hearing grossly normal bilaterally and external ears normal General nose exam: Normal external nose present, no nasal discharge noted and no epistaxis Face and sinus: Yes normal facial exam, No abrasion and No laceration Mouth: Normal oral and palatal mucosa present, no drooling and no muffled voice Eyes General: appearance normal, both eyes and all related structures Periorbital: periorbital findings normal Eyelids: Yes eyelids normal Conjunctivae: conjunctivae normal Pupils: Equal, round and reactive pupils present EOM: EOMs intact bilaterally Neck Neck: Yes normal visual inspection, Yes full ROM and Yes no lymphadenopathy Chest Chest palpation & inspection: normal inspection of the chest Resp Effort & Inspection: normal respiratory effort and able to speak in complete sentences GI Inspection: Yes normal to inspection Neuro General: patient oriented x3 and moves all extremities Cranial nerves: Yes Equal, round and reactive pupils present Cognition (Neuro): normal cognition Motor exam (neuro): 5/5 motor strength present throughout Sensory Exam: Normal double simultaneous stimulation for sensation Coordination: rkabdq-ag-zqxs test normal Extrem General: Yes normal to inspection, Yes full ROM and Yes capillary refill normal Psych Appearance: grossly normal Mental Status: mental status grossly normal Affect: normal affect Attitude: cooperative Thought process: Normal thought process present Thought content: Normal thought content present Insight: Good insight present (Psych) Course Course Course Narrative: RME performed by Belle Mckeon PA-C. Patient is a 52 year old assigned female at presenting to the emergency department with a cough and right ear pain. Detailed physical exam and review of systems are deferred to the circular knife cutter machine. Swabs ordered. Patient placed back in the waiting room pending room availability and results. Medical Decision Making Medical Decision Making MDM Narrative: Patient is a 52 year old assigned female at with a history of anxiety and fibromyalgia presenting to the emergency department today with right ear pain. Patient's limited physical exam performed in triage was unremarkable. Patient's chest x-ray showed no acute process. Patient's COVID-19, influenza, and RSV tests were all negative. Patient left the department without completing treatment. Patient left the department before myself or any of the other emergency department clinicians could explain to or review with the patient; physical exam findings, test results, need or lack there of for additional testing, need or lack there of to perform a procedure, need or lack there of for hospital admission / transfer, need or lack there of for prescription medication, treatment options, or a treatment plan. Differential Diagnosis Differential Diagnoses: The differential diagnosis associated with the presentation includes Ear pain Admission/Observation Consideration of admission/observation: Escalation of care including admission/observation considered Patient would have been admitted to the hospital had she completed her work up it had any findings where hospital admission was appropriate, her clinical presentation warranted hospital admission, had myself or any other emergency chief librarian circulation department had the ability to discuss need or lack there of for hospital admission, and the patient hadn't left the department without completing treatment. Lab Data [facility] Lab Attestation statement: I reviewed the patient's lab results. My interpretation of these results are in the [facility] Rationale portion of this note. Labs: Lab Results 09/10/23 Range/Units 17:14 Influenza Type A (PCR) NEGATIVE (Negative) Influenza Type B (PCR) NEGATIVE (Negative) RSV RNA Qual (PCR) NEGATIVE (Negative) SARS-CoV-2 RNA (RT-PCR) NEGATIVE (Negative) S. pyogenes GrpA DANTE Negative (Negative) Independent Interpretation I performed an independent interpretation of an: Plain X-Ray Interpretation: My interpretation is in agreement with the radiologist's impression of this imaging study. EXAMINATION: XR CHEST CLINICAL INFORMATION: Cough COMPARISON: CXR from 09/01/2021 and 05/30/2023 TECHNIQUE: 2 views of the chest were obtained. FINDINGS: Lungs are well-inflated. There is an old calcified granuloma of the lateral right upper lobe. Trachea is midline in position. No interstitial disease, consolidation or mass. No pleural effusion or pneumothorax. Cardiac silhouette and pulmonary vessels are normal in size. The mediastinum and kris have normal contour. The visualized bones and upper abdomen are unremarkable. XR/XR chest 2V IMPRESSION: No evidence of pneumonia. No acute cardiopulmonary abnormality. Dictated By: Damion Banegas MD Signed By: Electronically signed by Damion Banegas MD 09/10/23 3513 Radiology Impression Discussion of test interpretation with radiology: I have reviewed the radiologist's reading. Discharge Plan Discharge Clinical Impression: Ear pain Patient Disposition: Left W/O Completing Treatment Prescriptions: No Action (DME) blood pressure monitor [Blood Pressure Kit] Kit See Rx Instructions .ROUTE .MEDSUPPLY Qty: 1 0RF Rx Instructions: As directed (DME) cane Device See Rx Instructions .Route Qty: 1 0RF Rx Instructions: As directed fluticasone propionate [Flonase Allergy Relief] 50 mcg/actuation spray,suspension 2 spray intranasal Q12H 30 Days Qty: 16 0RF Rx Instructions: administer into each nostril fenofibrate 54 mg tablet 54 mg PO DAILY 90 Days Qty: 90 1RF cyclobenzaprine 10 mg tablet 10 mg PO TID PRN (Reason: muscle spasm) Qty: 10 0RF (DME) walker Misc See Rx Instructions .Route Qty: 1 0RF Rx Instructions: To be use lifetime (DME) underpads [Bed Underpads] Pad See Rx Instructions .Route Qty: 100 0RF Rx Instructions: As directed atorvastatin 20 mg tablet 20 mg PO BEDTIME 90 Days Qty: 90 1RF Arnuity Ellipta 50 mcg/actuation blister with device 1 inh inhalation DAILY 30 Days Qty: 30 6RF venlafaxine 37.5 mg capsule,extended release 24hr 37.5 mg PO BEDTIME 90 Days Qty: 90 0RF hydrochlorothiazide 25 mg tablet 25 mg PO DAILY 30 Days Qty: 30 11RF Combivent Respimat 20-100 mcg/actuation mist 1 puff PO QID 30 Days Qty: 25 1RF Patient Comments: Pulmo given albuterol sulfate 90 mcg/actuation HFA aerosol inhaler 2 puff PO Q4H PRN (Reason: bronchospasm) 30 Days Qty: 8.5 6RF clonazepam 0.5 mg tablet 0.5 mg PO BEDTIME PRN (Reason: anxiety) 30 Days Qty: 60 0RF potassium chloride 20 mEq tablet extended release 20 meq PO DAILY 30 Days Qty: 30 2RF tramadol 50 mg tablet 50 mg PO BID PRN (Reason: severe pain (scale score 7-10)) 30 Days Qty: 60 0RF acetaminophen 500 mg tablet 1,000 mg PO TID PRN (Reason: pain) Qty: 20 0RF kbjjesuyjd-jvpltrmuytllc-ocqi [Fioricet] 50-300-40 mg capsule 1 cap PO Q8H PRN (Reason: pain) Qty: 20 0RF mhbvzefqvp-zdqmoszbqklsf-hdpe [Fioricet] 50-300-40 mg capsule 1 cap PO Q4-6H PRN (Reason: headache) Qty: 10 0RF tramadol 50 mg tablet 50 mg PO TID PRN (Reason: severe pain (scale score 7-10)) Qty: 12 0RF prednisone 20 mg tablet 20 mg PO DAILY Qty: 5 0RF cholecalciferol (vitamin D3) 50 mcg (2,000 unit) tablet 50 mcg PO DAILY 90 Days Qty: 90 1RF loratadine 10 mg tablet 10 mg PO DAILY PRN (Reason: for allergies) 30 Days Qty: 30 1RF Emgality Pen 120 mg/mL pen injector 120 mg subcut ONCE 30 Days Qty: 1 6RF magnesium oxide 400 mg (241.3 mg magnesium) tablet 400 mg PO BEDTIME 30 Days Qty: 30 6RF Rx Instructions: may hold for loose stools naratriptan 2.5 mg tablet See Rx Instructions PO .COMPLEX PRN (Reason: migraine headache) 30 Days Qty: 12 6RF Rx Instructions: take 1/2 - 1 tab at onset of headache; if no relief may repeat 1 tab after at least 4 hrs; max = 2 tabs/24 hrs orally PRN; riboflavin (vitamin B2) 400 mg tablet 400 mg PO DAILY 30 Days Qty: 30 6RF Discharge Date/Time: 09/10/23 19:51
[2023-09-10 17:38] LABS: IDNOW Serial# 6674DD1D; Strep A Nucleic Acid Negative (Negative)
[2023-09-10 18:06] LABS: Influenza A PCR NEGATIVE (Negative); Influenza B PCR NEGATIVE (Negative); Resp Syncy Virus RNA Qual PCR NEGATIVE (Negative); SARS COV2 PCR INHOUSE NEGATIVE (Negative)
== END 2023-09-10 19:51 | disposition left against medical advice (07) ==
PROVIDERS: Physician Assistant Medical; Emergency Provider Emergency Medicine; PCP Internal Medicine
DX: H92.01 Otalgia, right ear (principal); R05.9 Cough, unspecified; I10 Essential (primary) hypertension; Z11.52 Encounter for screening for COVID-19; Z20.828 Contact with and (suspected) exposure to other viral communicable diseases
CPT/HCPCS: 0241U; 71046; 87651; 99281; 99283

== ENCOUNTER 2023-09-19 17:04 | Outpatient (AMB) | payer OTHER, SELFPAY ==
--- NOTE | 2023-09-19 17:30 | MHC.PC.OV ---
Vital Signs 09/19/23 17:31 Height 5 ft 1 in Weight 149 lb BMI 28.2 BP 122/86 Blood Pressure Location Lt brachial Position Sitting Intake Visit Reasons: Physical Exam Intake Note: Patient here for a physical exam Lotteries Agent Required: No Accompanied by: Self / Same As Patient Allergies amitriptyline Allergy (Intermediate, Verified 09/19/23 17:51) headache ibuprofen [From Motrin] Allergy (Intermediate, Verified 09/19/23 17:51) ITCHY RASH gabapentin Adverse Reaction (Intermediate, Verified 09/19/23 17:51) vomiting Medication List - Last Reconciled 09/19/23 by Neyda Peres MD acetaminophen 1,000 mg (2 x 500 mg) PO TID PRN albuterol sulfate 90 mcg/actuation 2 puffs PO Q4H PRN 30 days atorvastatin 20 mg PO BEDTIME 90 days blood pressure monitor (Blood Pressure Kit) As directed nmtkbkblgb-avycsjucyqtvw-uktn 50-300-40 mg (Fioricet) 1 cap PO Q8H PRN mtzrnrtblr-nwgvjktwghnem-iygr 50-300-40 mg (Fioricet) 1 cap PO Q4-6H PRN cane As directed cholecalciferol (vitamin D3) 50 mcg PO DAILY 90 days clonazepam 0.5 mg PO BEDTIME PRN 30 days cyclobenzaprine 10 mg PO TID PRN fenofibrate 54 mg PO DAILY 90 days fluticasone furoate 50 mcg/actuation (Arnuity Ellipta) 1 inh inhalation DAILY 30 days fluticasone propionate 50 mcg/actuation (Flonase Allergy Relief) 2 sprays intranasal Q12H 30 days galcanezumab-gnlm (Emgality Pen) 120 mg subcut ONCE 30 days hydrochlorothiazide 25 mg PO DAILY 30 days ipratropium-albuterol 20-100 mcg/actuation (Combivent Respimat) 1 puff PO QID 30 days loratadine 10 mg PO DAILY PRN 30 days magnesium oxide 400 mg PO BEDTIME 30 days naratriptan take 1/2 - 1 tab at onset of headache; if no relief may repeat 1 tab after at least 4 hrs; max = 2 tabs/24 hrs orally PRN; 30 days potassium chloride ER 20 mEq PO DAILY 30 days prednisone 20 mg PO DAILY riboflavin (vitamin B2) 400 mg PO DAILY 30 days tramadol 50 mg PO TID PRN tramadol 50 mg PO BID PRN 30 days underpads (Bed Underpads) As directed venlafaxine ER 37.5 mg PO BEDTIME 90 days walker To be use lifetime Tobacco use date assessed: 09/19/23 Dental Screening Dental Screen Date: 09/19/23 Did you have a dental visit in the last 12 months?: Yes Did you have a dental problem in the last 6 months where you did not have access to dental care?: No Was dental information given to patient?: Patient has dentist HPI HPI Comments History of Present Illness Details This is a 52-year-old female that comes for her physical exam. Last mammogram was over a year ago. Last Pap smear was 2020 was normal with HPV negative. Has never had a colonoscopy and I will order a Cologuard. No family history of colon cancer. Complains of pain mostly in facial bones. She also has the pelvic pain after having unprotected sex. She has microscopic hematuria an ultrasound will be order and I will refer her to Urology. No chest pain but occasional palpitations. She has moderate major depression stable with venlafaxine [facility] Medical History (Updated 09/19/23 @ 19:32 by Neyda Peres MD) Acute maxillary sinusitis Otitis externa Hospital discharge follow-up Microscopic hematuria Physical exam Goiter Blurry vision Tobacco dependence Has daytime drowsiness Pulmonary nodules Moderate recurrent major depression Dyspnea Hand pain Skin lesion Leg pain, bilateral Dyslipidemia Epigastric pain Essential hypertension Cervical cancer screening GERD (gastroesophageal reflux disease) HTN (hypertension) Migraine Anxiety Depression Right lower quadrant pain Fibromyalgia Surgical History (Updated 09/19/23 @ 17:58 by Neyda Peres MD) Previous section History of breast lump/mass excision History of lithotripsy H/O LEEP H/O tubal ligation Family History (Updated 09/19/23 @ 17:59 by Neyda Peres MD) Father Myocardial infarction Mother Lung cancer Brother Liver cancer Maternal Grandfather Stomach cancer Maternal Grandmother No problems noted. Social History Housing: Apartment Alcohol intake: never Patient Tobacco Use Status: Current someday Tobacco user Tobacco use type: Cigarette Cigarettes Per Day: 3 e-Cigarette/Vaping Use: Never Used Second Hand Smoke Exposure: No service: No Current occupational status: disabled Gender identity: Female Cognitive needs: No Hearing needs: No Vision needs: No Female Reproductive History Menstrual Age of Menarche: 9 Questionnaire PHQ-9 Over the last 2 weeks, how often have you been bothered by any of the following problems? 1. Little interest or pleasure in doing things: more than half the days 2. Feeling down, depressed, or hopeless: more than half the days 3. Trouble falling or staying asleep, or sleeping too much: several days 4. Feeling tired or having little energy: nearly every day 5. Poor appetite or overeating: several days 6. Feeling bad about yourself - or that you are a failure or have let yourself or your family down: more than half the days 7. Trouble concentrating on things, such as reading the newspaper or watching television: several days 8. Moving or speaking so slowly that other people could have noticed. Or the opposite - being so fidgety or restless that you have been moving around a lot more than usual: several days 9. Thoughts that you would be better off or of hurting yourself in some way: several days Total score: 14 Depression Screening Interpretation: Positive (no suicidal thoughts) Depression Screening Follow-up: Existing condition and In treatment Depression Screening Done: Yes Source: Developed by Drs. Sylvester Merlos, Eve Mcclelland, Joby King and colleagues, with an educational pili from [employer]. Thrive Questionnaire Date Thrive assessed: 06/20/22 AUDIT C Alcohol Use Questionnaire (AUDIT-C) 1. How often do you have a drink containing alcohol?: Monthly or less 2. How many drinks containing alcohol do you have on a typical day when you are drinking?: 1 or 2 3. How often do you have six or more drinks on one occasion?: Never Total Score: 1 Score Reviewed/Action Taken: No JOHN-7 AMB Questionnaire JOHN-7 Date JOHN - 7 assessed: 09/19/23 Feeling nervous, anxious, or on edge: 2 = More than half the days Not being able to stop or control worryin = Several days Worrying too much about different things: 2 = More than half the days Trouble relaxin = More than half the days Being so restless that it is hard to sit still: 0 = Not at all Becoming easily annoyed or irritable: 0 = Not at all Feeling afraid as if something awful might happen: 1 = Several days Total JOHN-7 score (0-4 normal; 5-9 mild; 10-14 moderate; 15-21 severe): 8 Source: Developed by Drs. Sylvester Merlos, Eve Mcclelland, Joby King and colleagues, with an educational pili from [employer]. JOHN-7 Assessment Billing JOHN-7 Assessment Tool: JOHN-7 Assessment 85025 Review of Systems Const All systems reviewed & are unremarkable except as noted in HPI and below Eyes Reports no additional complaints, Denies change in vision and Denies other visual disturbances Card Denies chest pain at rest, Denies chest pain with activity, Denies edema, Denies irregular heart rhythm, Denies claudication, Denies dyspnea, Denies dyspnea on exertion, Denies orthopnea, Denies paroxysmal nocturnal dyspnea and Denies slow heart rate Resp Denies cough, Denies dyspnea and Denies dyspnea on exertion GI Denies abdominal pain, Denies change in bowel habits, Denies excessive flatus, Denies nausea and Denies vomiting Denies urinary incontinence, Denies urinary hesitancy and Denies urinary urgency Musc Denies atrophy, Denies deformity and Denies limited range of motion Physical exam (Primary Care) Vital Signs: Last Vital Signs BP 122/86 09/19/23 17:31 BMI result Body Mass Index 28.2 Tobacco/Smoking Status: Tobacco use Status Tobacco use date assessed 09/19/23 09/19/23 17:43 Patient Tobacco Use Status Current someday Tobacco 09/19/23 17:43 Tobacco use type Cigarette 09/19/23 17:43 e-Cigarette/Vaping Use Never Used 09/19/23 17:43 PHQ-9: PHQ-9 Score PHQ-9: Total score 14 09/19/23 17:55 Depression Screening Interpretation: Positive (no suicidal thoughts) Depression Screening Follow-up: Existing condition and In treatment Thrive Assessment: Date of Thrive Assessment Date Thrive assessed 06/20/22 09/19/23 17:43 Const Orientation/consciousness: patient oriented x3 HENMT Head: Yes normal to inspection, Yes normocephalic and Yes atraumatic Ears: external ears normal Eyes General: appearance normal, both eyes and all related structures Eyelids: Yes eyelids normal Conjunctivae: conjunctivae normal Neck Neck: Yes normal visual inspection and Yes supple Resp Effort & Inspection: normal respiratory effort Auscultation: clear to auscultation bilaterally Cardio Jugular venous distension: no JVD Rate: regular rate Rhythm: regular rhythm Heart sounds: S1 normal heart sound present and S2 normal heart sound present GI Inspection: Yes normal to inspection Palpation (GI): Soft to palpation and nontender Auscultation: normal bowel sounds Skin General skin exam: no rashes or lesions noted Neuro General: patient oriented x3 and no focal motor deficits Extrem General: Yes full ROM Results AMB Urinalysis, Automated UA Leukoctes 0 Megan/uL Last Edit by Kamaljit Evans [facility] on 09/19/23 17:59 UA Nitrite Negative Last Edit by Kamaljit Evans [facility] on 09/19/23 17:59 UA Urobilinogen 0.2 mg/dL Last Edit by Kamaljit Evans [facility] on 09/19/23 17:59 UA Protein 0 mg/dL Last Edit by Kamaljit Evans [facility] on 09/19/23 17:59 UA pH 6.0 Last Edit by Kamaljit Evans [facility] on 09/19/23 17:59 UA Blood 2 Adrián/uL Last Edit by Kamaljit Evans [facility] on 09/19/23 17:59 UA Specific [place] 1.020 Last Edit by Kamaljit Evans [facility] on 09/19/23 17:59 UA Ketone Negative Last Edit by Kamaljit Evans [facility] on 09/19/23 17:59 UA Bilirubin 0 mg/dL Last Edit by Kamaljit Evans [facility] on 09/19/23 17:59 UA Glucose 0 mg/dL Last Edit by Kamaljit Evans [facility] on 09/19/23 17:59 Results Reviewed Results Reviewed: Laboratory Last Values Urine pH (Auto) 6.0 09/19/23 17:43 Specific [place] (Auto) 1.020 09/19/23 17:43 Urine Protein (Auto) 0 mg/dL 09/19/23 17:43 Glucose (UA)(Auto) 0 mg/dL 09/19/23 17:43 Urine Ketones (Auto) Negative 09/19/23 17:43 Urine Blood (Auto) 2 Adrián/uL 09/19/23 17:43 Urine Nitrite (Auto) Negative 09/19/23 17:43 Urine Bilirubin (Auto) 0 mg/dL 09/19/23 17:43 Urine Urobilinogen (Auto) 0.2 mg/dL 09/19/23 17:43 Leukocyte Esterase (Auto) 0 Megan/uL 09/19/23 17:43 Assessment and Plan Assessment & Plan (1) Physical exam: Code(s): Z00.00 - Encounter for general adult medical examination without abnormal findings Plan: Repeat in a year. (2) Moderate major depression: Code(s): F32.1 - Major depressive disorder, single episode, moderate Plan: Continue venlafaxine. Orders: Orders US pelvic and transvaginal Today R10.2 - Pelvic and perineal pain Complete Blood Count Auto Diff Today R10.2 - Pelvic and perineal pain Comprehensive [place]. Panel Fast Today G43.909 - Migraine, unspecified, not intractable, without status migrainosus Syphilis Screen Today Z20.2 - Contact with and (suspected) exposure to infections with a predominantly sexual mode of transmission HIV Ab/Ag Today Z20.2 - Contact with and (suspected) exposure to infections with a predominantly sexual mode of transmission Hepatitis B,C Profile Today Z20.2 - Contact with and (suspected) exposure to infections with a predominantly sexual mode of transmission MM screening mammo BI Today Z12.31 - Encounter for screening mammogram for malignant neoplasm of breast AMB Urinalysis Automated Today R30.0 - Dysuria US renal BI Today R31.29 - Other microscopic hematuria Lipid Panel Today E78.5 - Hyperlipidemia, unspecified Vitamin B12 and Folate Today E53.8 - Deficiency of other specified B group vitamins Vitamin D 25-OH Total Today E55.9 - Vitamin D deficiency, unspecified Referrals Urology Referral R31.29 - Other microscopic hematuria Dermatology Referral L98.9 - Disorder of the skin and subcutaneous tissue, unspecified Rheumatology Referral M25.50 - Pain in unspecified joint Cologuard Test Z12.11 - Encounter for screening for malignant neoplasm of colon, Z12.12 - Encounter for screening for malignant neoplasm of rectum Coding Level of Care Code Est Pt Prev Care 40-64y(92578) Diagnoses Physical exam Z00.00 Moderate major depression F32.1 Additional Codes JOHN-7 Assessment Billing - JOHN-7 Assessment Tool: JOHN-7 Assessment 16708 ([id number]) Time Spent (min) 35
[2023-09-19 17:31] VITALS: BP 122/86; BMI 28.2
== END 2023-09-19 17:59 | disposition home or self-care (01) ==
PROVIDERS: PCP Internal Medicine; Visit Provider Internal Medicine
DX: Z00.00 Encounter for general adult medical examination without abnormal findings (principal); F32.1 Major depressive disorder, single episode, moderate; I10 Essential (primary) hypertension; F17.210 Nicotine dependence, cigarettes, uncomplicated; R30.0 Dysuria
CPT/HCPCS: 81003; 99396

== ENCOUNTER 2023-10-02 13:32 | Outpatient (REF) | payer OTHER, SELFPAY ==
--- NOTE | ~2023-10-02 | US_ITS ---
EXAMINATION: US PELVIS CLINICAL INFORMATION: Pelvic and perineal pain. Last menstrual period 2 weeks ago. COMPARISON: 06/13/2019. TECHNIQUE: Ultrasound of the pelvis is performed using both transabdominal and transvaginal transducers along with Doppler. Transvaginal imaging is performed due to inadequate visualization transabdominally. FINDINGS: The uterus is anteverted and measures 5.7 x 3.2 x 3.5 cm. No significant free fluid. Right ovary not visualized. Limited visualization due to bowel gas. Endometrial thickness is 5 mm. A 0.5 x 0.2 x 0.3 cm cyst is seen towards the left of the myometrium. Left ovary measures 2.2 x 1.0 x 1.1 cm, volume 1.3 mL. Left ovary is grossly unremarkable, although visualization is limited due to bowel gas. US/US pelvic and transvaginal IMPRESSION: 1. Endometrial thickness is 5 mm. 2. A 0.5 x 0.2 x 0.3 cm cyst is seen towards the left in the myometrium. 3. Right ovary not visualized. Limited visualization due to bowel gas. 4. Left ovary is grossly unremarkable, although visualization is limited due to bowel gas.
--- NOTE | ~2023-10-02 | US_ITS ---
EXAMINATION: US RETROPERITONEAL LIMITED (RENAL ONLY) CLINICAL INFORMATION: Other microscopic hematuria. COMPARISON: CT abdomen and pelvis 03/07/2021. TECHNIQUE: Real-time imaging of the kidneys. Limited visualization due to bowel gas. FINDINGS: RIGHT KIDNEY: 11.2 x 4.4 x 5.0 cm (SAG x AP x TRV). Mild caliectasis. 2.7 cm midpole cyst with benign features. There is no specific indication for additional imaging at this time. Additional smaller cysts some of which are difficult to characterize due to limited visualization. No renal calculi. Renal cortical thickness is normal. Limited visualization. LEFT KIDNEY: 11.5 x 4.1 x 4.3 cm (SAG x AP x TRV). No hydronephrosis. No renal calculi. Renal cortical thickness is normal. Limited visualization. Left renal 0.8 cm lower pole cyst with peripheral mural echogenic focus, possibly representing mural calcification. There is no specific indication for additional imaging at this time. US/US renal BI IMPRESSION: Mild right renal caliectasis. No obstructing renal calculi appreciated. Limited visualization.
[2023-10-02 13:48] LABS: MANUAL DIFF FLAG NO
[2023-10-02 14:20] LABS: Basophils Absolute Auto 0.1 X10*3/uL (0.0-0.2); Eosinophils Absolute Auto 0.1 X10*3/uL (0.0-0.4); Eosinophils Percent Auto 1.9 % (0-4); Hematocrit 39.1 % (37.0-47.0); Hemoglobin 13.1 g/dl (12.0-16.0); Imm Gran Abs Auto 0.01 X10*3/uL (0.00-0.03); Imm Gran Pct Auto 0.1 % (0.0-0.4); Lymphocytes Absolute Auto 2.5 X10*3/uL (1.2-4.9); Lymphocytes Percent Auto 34.6 % (20-40); Mean Corpuscular HGB Conc 33.5 g/dl (31.0-35.0); Mean Corpuscular Hemoglobin 27.6 pg (27.0-33.0); Mean Corpuscular Volume 82.5 fL (80.0-98.0); Mean Platelet Volume 10.5 fL (9.4-12.3); Monocytes Absolute Auto 0.5 X10*3/uL (0.1-1.2); Monocytes Percent Auto 7.1 % (2-11); Neutrophils Absolute Auto 4.1 x10*3/uL (2.0-8.3); Neutrophils Percent Auto 55.3 % (45-73); Platelet Count 322 X10*3/uL (160-400); Red Blood Count 4.74 X10*6/uL (4.20-5.50); Red Cell Distribution Width 14.3 % (11.0-16.0); White Blood Count 7.4 X10*3/uL (4.8-10.8)
[2023-10-02 17:26] LABS: Alanine Aminotransferase 17 U/L (0-31); Albumin Level 4.3 g/dL (3.5-5.0); Alkaline Phosphatase 100 U/L (39-117); Anion Gap 14 (12-20); Aspartate Amino Transferase 16 U/L (5-31); Bilirubin Total 0.6 mg/dL (0.0-1.0); Blood Urea Nitrogen 13 mg/dL (9-16); Calcium 9.7 mg/dL (8.4-10.2); Carbon Dioxide 27 mmol/L (22-29); Chloride 103 mmol/L (96-108); Cholesterol 206 mg/dL (<200); Estimated Glomerular Filt Rate > 60; Glucose Fasting 87 mg/dL (60-99); HDL Cholesterol 36 mg/dL (>40); Sodium 141 mmol/L (135-145); Total Protein 7.7 g/dL (6.5-8.0); Triglycerides 594 mg/dL (<150)
[2023-10-02 17:30] LABS: Vitamin D 25-OH Total 28.3 ng/mL (>30)
[2023-10-02 19:11] LABS: Folate 6.1 ng/mL (> or = 4.0); Vitamin B12 258 pg/mL (200-900)
[2023-10-03 08:06] LABS: Syphilis Screen Nonreactive (Nonreactive)
[2023-10-03 08:24] LABS: HBS Num1 0.33 mIU/mL (0-7.99); HBsAGNum1 0.38 S/CO (0.00-0.99); HIV AB/AG Nonreactive (Nonreactive); HIV Num 1 0.04 S/CO (0.00-0.99); Hepatitis B Core Antibody Nonreactive (Nonreactive); Hepatitis B Surface Antigen Negative (Negative); ~HepC Num1 0.09 S/CO (0.00-0.79); ~Hepatitis B Surface Antibody NONREACTIVE (Nonreactive); ~Hepatitis C Antibody Nonreactive (Nonreactive)
== END 2023-10-02 13:33 | disposition home or self-care (01) ==
LOC: HO.US 13:32
PROVIDERS: PCP Internal Medicine; Visit Provider Internal Medicine
DX: Z11.4 Encounter for screening for human immunodeficiency virus [HIV] (principal); R10.2 Pelvic and perineal pain; E78.5 Hyperlipidemia, unspecified; G43.909 Migraine, unspecified, not intractable, without status migrainosus; Z20.2 Contact with and (suspected) exposure to infections with a predominantly sexual mode of transmission; E53.8 Deficiency of other specified B group vitamins; E55.9 Vitamin D deficiency, unspecified; R31.29 Other microscopic hematuria
CPT/HCPCS: 36415; 76775; 76830; 76856; 80053; 80061; 82306; 82607; 82746; 85025; 86704; 86706; 86780; 86803; 87340; 87389

== ENCOUNTER 2023-10-03 14:06 | Outpatient (AMB) | payer OTHER, SELFPAY ==
[2023-10-03 15:21] VITALS: BP 118/70; BMI 28.2
--- NOTE | 2023-10-03 15:21 | MHC.OFFVIS ---
Intake Vital Signs 10/03/23 15:21 Height 5 ft 1 in Weight 149 lb BMI 28.2 BP 118/70 Intake Visit Reasons: L pelvic pain Information Interpreted: clinical only Restaurant Area Director: Restaurant Area Director Present Allergies amitriptyline Allergy (Intermediate, Verified 10/03/23 15:22) headache ibuprofen [From Motrin] Allergy (Intermediate, Verified 10/03/23 15:22) ITCHY RASH gabapentin Adverse Reaction (Intermediate, Verified 10/03/23 15:22) vomiting Medication List - Last Reconciled 10/03/23 by Danielle Lynn CNM acetaminophen 1,000 mg (2 x 500 mg) PO TID PRN albuterol sulfate 90 mcg/actuation 2 puffs PO Q4H PRN 30 days atorvastatin 20 mg PO BEDTIME 90 days blood pressure monitor (Blood Pressure Kit) As directed tbvyzadlie-nipjqqyucunvu-fzhw 50-300-40 mg (Fioricet) 1 cap PO Q8H PRN yixenfxjiu-psihvdofnvxnf-asel 50-300-40 mg (Fioricet) 1 cap PO Q4-6H PRN cane As directed cholecalciferol (vitamin D3) 50 mcg PO DAILY 90 days clonazepam 0.5 mg PO BEDTIME PRN 30 days cyclobenzaprine 10 mg PO TID PRN fenofibrate 54 mg PO DAILY 90 days fluticasone furoate 50 mcg/actuation (Arnuity Ellipta) 1 inh inhalation DAILY 30 days fluticasone propionate 50 mcg/actuation (Flonase Allergy Relief) 2 sprays intranasal Q12H 30 days galcanezumab-gnlm (Emgality Pen) 120 mg subcut ONCE 30 days hydrochlorothiazide 25 mg PO DAILY 30 days ipratropium-albuterol 20-100 mcg/actuation (Combivent Respimat) 1 puff PO QID 30 days loratadine 10 mg PO DAILY PRN 30 days magnesium oxide 400 mg PO BEDTIME 30 days potassium chloride ER 20 mEq PO DAILY 30 days riboflavin (vitamin B2) 400 mg PO DAILY 30 days tramadol 50 mg PO TID PRN tramadol 50 mg PO BID PRN 30 days underpads (Bed Underpads) As directed walker To be use lifetime Post menopausal: Yes (2020) HPI L pelvic pain HPI Details Patient is here is a problem visit today because she has been having pain in her left side for a week or 2 she says it goes all the way from around her bladder area and up through her left flank and to the left side of her back. She said the pain is so bad she has trouble walking she says she saw her primary care provider and some ultrasounds were ordered and she was told that there was blood in her urine and some other ultrasound ordered the patient states that she had especially ultrasound yesterday where they put something inside and checked before and after she voided. She does not believe she saw anyone in urology records to be researched further. Patient's last Pap smear was done in 2020 and it showed ASCUS and she was due to come back for a return side laster staple visit and repeat Pap smear however that visit did not occur patient states that she came here to the office in the office was closed on that day. It did not get rescheduled The patient states she also has an ultrasound of her pelvis and kidneys ordered for next week. She also states that 2 months ago she had sex with her in ever since then something has not felt right and she is worried about infection. She does suffer from constipation. She is much better since she takes what she believes is Colace from the pharmacy. [facility] Medical History Acute maxillary sinusitis Otitis externa Hospital discharge follow-up Microscopic hematuria Physical exam Goiter Blurry vision Tobacco dependence Has daytime drowsiness Pulmonary nodules Moderate recurrent major depression Dyspnea Hand pain Skin lesion Leg pain, bilateral Dyslipidemia Epigastric pain Essential hypertension Cervical cancer screening GERD (gastroesophageal reflux disease) HTN (hypertension) Migraine Anxiety Depression Right lower quadrant pain Fibromyalgia Surgical History Previous section History of breast lump/mass excision History of lithotripsy H/O LEEP H/O tubal ligation Family History Father Myocardial infarction Mother Lung cancer Brother Liver cancer Maternal Grandfather Stomach cancer Maternal Grandmother No problems noted. Social History Housing: Apartment Alcohol intake: never Patient Tobacco Use Status: Current someday Tobacco user Tobacco use type: Cigarette Cigarettes Per Day: 3 e-Cigarette/Vaping Use: Never Used Second Hand Smoke Exposure: No service: No Current occupational status: disabled Gender identity: Female Cognitive needs: No Hearing needs: No Vision needs: No Female Reproductive History Menstrual Age of Menarche: 9 control method: progestin IUCD Date of last pap smear: 06/25/20 (cell abnormality) History of abnormal pap smear: Yes (cell abnormality, previous pap 2013 neg.) Physical Exam Vital Signs: Last Vital Signs BP 118/70 10/03/23 15:21 BMI result Body Mass Index 28.2 Other: DETAILS PATIENT WAS ESSENTIALLY NONTENDER WITH THE PELVIC EXAM THOUGH SHE VOICED MORE DISCOMFORT WITH THE BIMANUAL BUT IT WAS NOT TRUE CERVICAL MOTION TENDERNESS OR TENDERNESS INDICATIVE OF PID. BLADDER AREA WAS NOT ESPECIALLY TENDER EITHER HOWEVER PATIENT COMPLAINED OF TENDERNESS RADIATING EATING UP HER LEFT SIDE AT AN ANGLE UP TO HER LEFT COSTOVERTEBRAL AREA. SPECULUM EXAM WAS WITHIN NORMAL LIMITS VAGINA PINK AND MOIST CERVIX NULLIPAROUS PINK SMOOTH HEALTHY APPEARING SCANT NORMAL APPEARING DISCHARGE CERVIX MOBILE ESSENTIALLY NONTENDER UTERUS ESSENTIALLY NONTENDER BLADDER NONTENDER ADNEXA NONTENDER, PATIENT VISIBLY UNCOMFORTABLE HOWEVER, External Female Exam: normal external appearance Speculum Exam - Vagina: normal appearance of the vagina and normal vaginal discharge Speculum Exam - Cervix: normal appearance of the cervix Bimanual exam- vagina & uterus: normal bimanual exam, uterine size normal, consistency normal, uterine mobility normal, uterine shape normal and non-tender Bimanual Exam- Adnexa, other: normal adnexae, no masses and No adnexal tenderness Results Reviewed Results Reviewed: Name: Peace Urias Age/Sex: 49/F Attending: Danielle Lynn CNM : 1970 Submitted by: Danielle Lynn CNM Copies to: MR #: [id number] Status: DEP REF Collected: 06/23/20 Location: .LAB Received: 06/25/20 Interpretation General Category: Epithelial cell abnormality. Adequacy: Endocervical component present. Interpretation: Atypical squamous cells of undetermined significance. HPV mRNA E6/E7: Not detected This assay detects E6/E7 viral messenger RNA (mRNA) from 14 high-risk HPV types (16, 18, 31, 33, 35, 39, 45, 51, 52, 56, 58, 59, 66, 68) HPV testing performed by [facility], [place], [place]. See reference laboratory portion of the EMR for entire report. Clinical Information LMP: 6 m ago Previous PAP test: 01/16/2014, wnl Material Received ThinPrep cervical Electronically Signed By: Berna Galdamez MD 07/14/20 1134 The Pap Test is a screening procedure with the inherent possibility of both false negative and false positive results. Results should be interpreted in the context of historic and current clinical findings. Reliability of the Pap Test is enhanced by performing the test on a regular repetitive basis. Patient: Paulo Page 1 of 1 NOTE URINALYSIS DONE AT PRIMARY CARE PROVIDER OR ELSEWHERE IN [place]UL[place] SHOWED BLOOD WELL PREVIOUS TEST WOULD BE September [facility] DID NOT SHOW BLOOD. --------PATIENT HAD A PELVIC ULTRASOUND AND RENAL ULTRASOUND DONE YESTERDAY BUT NEITHER ULTRASOUND HAS BEEN READ BY RADIOLOGY AND IS NOT AVAILABLE FOR REVIEW TODAY. SHE HAS BEEN REFERRED TO UROLOGY WELL THAT APPOINTMENT IS YET TO HAPPEN. Assessment & Plan Assessment & Plan (1) Pelvic pain in female: Code(s): R10.2 - Pelvic and perineal pain (2) Left flank pain: Code(s): R10.9 - Unspecified abdominal pain (3) Potential exposure to STD: Code(s): Z20.2 - Contact with and (suspected) exposure to infections with a predominantly sexual mode of transmission (4) Cervical cancer screening: Comment: 06/23/20 pap= ascus, hpv neg-per [facility]- rescreen in 3 yrs, last pap 2013 neg, no hpv done. Code(s): Z12.4 - Encounter for screening for malignant neoplasm of cervix Plan Patient is here is a problem visit today because she has been having pain in her left side for a week or 2 she says it goes all the way from around her bladder area and up through her left flank and to the left side of her back. She said the pain is so bad she has trouble walking she says she saw her primary care provider and some ultrasounds were ordered and she was told that there was blood in her urine and some other ultrasound ordered the patient states that she had especially ultrasound yesterday where they put something inside and checked before and after she voided. She does not believe she saw anyone in urology records to be researched further. Patient's last Pap smear was done in 2020 and it showed ASCUS and she was due to come back for a return side laster staple visit and repeat Pap smear however that visit did not occur patient states that she came here to the office in the office was closed on that day. It did not get rescheduled The patient states she also has an ultrasound of her pelvis and kidneys ordered for next week. She also states that 2 months ago she had sex with her in ever since then something has not felt right and she is worried about infection. She does suffer from constipation. She is much better since she takes what she believes is Colace from the pharmacy. -I REVIEWED IN THE CHART THE ULTRASOUNDS THAT SHE HAD DONE YESTERDAY WERE PELVIC ULTRASOUND AND RENAL ULTRASOUND BUT THEY HAVE NOT YET BEEN READ BY RADIOLOGY THE URINALYSIS THAT WAS DONE ON 09/18 DID NOT IN FACT SHE WILL BLOOD. THE URINALYSIS DONE IN HER PRIMARY CARE OFFICES IN [place] IN PREVIOUS DID SHOW BLOOD HENCE PATIENT IS STATING THAT HER DOCTOR THOUGHT SHE WOULD HAVE HAD HER MIGHT HAVE HAD KIDNEY STONES. THE PATIENT CAN CALL SUNDAY AND OR SUNDAY FOR RESULTS OF THE STI TEST THAT I DID TODAY FOR GONORRHEA CHLAMYDIA TRICHOMONIASIS GARDNERELLA AND HARVEY. SHE IS CONCERNED ABOUT THESE. SHE SHOULD ALSO SCHEDULE HER ANNUAL EXAM THOUGH I DID HER PAP SMEAR TODAY BECAUSE OF HER HISTORY OF ASCUS AND HER PAP SMEARS THAT WERE SCHEDULED AFTER THAT DID NOT OCCUR. -ADDITIONALLY I REVIEWED WITH HER THAT IF SHE HAS FEVER CHILLS HER PAIN GETS WORSE SHE FEELS SOMETHING IS GETTING MUCH WORSE AND SHE IS VERY SICK SHE NEEDS TO GO TO THE ER AND OR CALL HER PRIMARY CARE PROVIDER IT COULD BE SIGNS AND SYMPTOMS OF A URINARY TRACT OR ASCENDING URINARY TRACT INFECTION TO HER KIDNEYS GIVEN THAT THAT IS WHERE SHE IS HAVING THE PAIN AND THAT WOULD NEED URGENT CARE. I REVIEWED WITH HER THE PATHOPHYSIOLOGY OF WHY THIS HAPPENS. I REVIEWED WITH HER WHY THIS IS NOT A GYNECOLOGICAL ISSUE BUT WE DID SEND HER CLEAN-CATCH URINE TODAY BUT IT WILL NOT BE READY FOR 3 DAYS. Quality Reporting (2019) Adult ([facility] ) Smoking risk assessment performed?: Yes Patient Tobacco Use Status: Current someday Tobacco user Coding Level of Care Code Est Pt Level 4 (58395) Diagnoses Pelvic pain in female R10.2 Left flank pain R10.9 Potential exposure to STD Z20.2 Cervical cancer screening Z12.4
== END 2023-10-03 16:46 | disposition home or self-care (01) ==
LOC: HO.HWSM 14:06
PROVIDERS: PCP Internal Medicine; Visit Provider Advanced Practice Midwife
DX: R10.2 Pelvic and perineal pain (principal); R10.9 Unspecified abdominal pain; Z20.2 Contact with and (suspected) exposure to infections with a predominantly sexual mode of transmission; Z12.4 Encounter for screening for malignant neoplasm of cervix
CPT/HCPCS: 99214

== ENCOUNTER 2023-10-03 14:06 | Outpatient (REF) | payer OTHER, SELFPAY ==
[2023-10-11 03:59] LABS: HPV mRNA E6/E7 rflx Not Detected (Not Detected)
== END 2023-10-03 14:07 | disposition home or self-care (01) ==
LOC: HO.LAB 14:06
PROVIDERS: PCP Internal Medicine; Visit Provider Advanced Practice Midwife
DX: R10.2 Pelvic and perineal pain (principal); Z01.419 Encounter for gynecological examination (general) (routine) without abnormal findings
CPT/HCPCS: 0353U; 87086; 87480; 87510; 87624; 87660; 88142; 99212

== ENCOUNTER 2023-10-06 22:33 | Emergency (ER) | payer OTHER, SELFPAY ==
[2023-10-06 22:38] VITALS: BP 167/98; PULSE 109; RESP 20; TEMP 36.6; O2SAT 100; BMI 29.9
[2023-10-06 23:03] LABS: MANUAL DIFF FLAG NO
[2023-10-06 23:04] LABS: Basophils Absolute Auto 0.1 X10*3/uL (0.0-0.2); Basophils Percent Auto 0.7 % (0-2); Eosinophils Absolute Auto 0.1 X10*3/uL (0.0-0.4); Eosinophils Percent Auto 1.9 % (0-4); Imm Gran Abs Auto 0.01 X10*3/uL (0.00-0.03); Imm Gran Pct Auto 0.1 % (0.0-0.4); Lymphocytes Absolute Auto 2.6 X10*3/uL (1.2-4.9); Lymphocytes Percent Auto 34.3 % (20-40); Mean Corpuscular HGB Conc 33.3 g/dl (31.0-35.0); Mean Corpuscular Hemoglobin 27.2 pg (27.0-33.0); Mean Corpuscular Volume 81.6 fL (80.0-98.0); Monocytes Absolute Auto 0.5 X10*3/uL (0.1-1.2); Monocytes Percent Auto 6.4 % (2-11); Neutrophils Absolute Auto 4.3 x10*3/uL (2.0-8.3); Neutrophils Percent Auto 56.6 % (45-73); Platelet Count 312 X10*3/uL (160-400); Red Blood Count 4.41 X10*6/uL (4.20-5.50); Red Cell Distribution Width 13.9 % (11.0-16.0); White Blood Count 7.6 X10*3/uL (4.8-10.8)
[2023-10-06 23:05] LABS: Appearance Urine Cloudy; Color Urine Yellow; Glucose Urine UA Negative (Negative); Leukocyte Esterase Urine Trace (Negative); Nitrite Urine Negative (Negative); UMIC TRIGGER UACC YES; Urine Blood Moderate (2+) (Negative); Urine Ketones Trace mg/dL (Negative); Urine Protein Trace mg/dL (Neg-Trace)
[2023-10-06 23:19] LABS: Alanine Aminotransferase 11 U/L (0-31); Alkaline Phosphatase 93 U/L (39-117); Anion Gap 14 (12-20); Aspartate Amino Transferase 16 U/L (5-31); Bacteria Urine 2+ (None Seen); Bilirubin Total 0.3 mg/dL (0.0-1.0); Blood Urea Nitrogen 13 mg/dL (9-16); Calcium 9.5 mg/dL (8.4-10.2); Calcium Oxalate Crystals Urine Present; Carbon Dioxide 26 mmol/L (22-29); Chloride 107 mmol/L (96-108); Creatinine Clr Calc Pharmacy 80.7; Estimated Glomerular Filt Rate > 60; Glucose Random 139 mg/dL (60-115); Hyaline Casts Urine 0-2 /LPF (0-2); Potassium 3.1 mmol/L (3.3-5.1); Sodium 144 mmol/L (135-145); Squamous Epithelial Cell Urine >20 /HPF (0-2); Total Protein 7.5 g/dL (6.5-8.0); WBC Urine 0-5 /HPF (0-5)
[2023-10-06 23:41] LABS: Influenza A PCR NEGATIVE (Negative); Influenza B PCR NEGATIVE (Negative); Resp Syncy Virus RNA Qual PCR NEGATIVE (Negative); SARS COV2 PCR INHOUSE NEGATIVE (Negative)
--- NOTE | 2023-10-07 01:16 | PC.NURSE ---
pt refused vitals at this time
--- NOTE | 2023-10-07 01:19 | PC.NURSE ---
seen leaving by registration
== END 2023-10-07 01:38 | disposition left against medical advice (07) ==
PROVIDERS: Emergency Provider Emergency Medicine; PCP Internal Medicine
DX: R10.9 Unspecified abdominal pain (principal); M54.50 Low back pain, unspecified; Z11.52 Encounter for screening for COVID-19; Z20.828 Contact with and (suspected) exposure to other viral communicable diseases; Z53.21 Procedure and treatment not carried out due to patient leaving prior to being seen by health care provider; Z87.440 Personal history of urinary (tract) infections; I10 Essential (primary) hypertension; E78.2 Mixed hyperlipidemia
CPT/HCPCS: 0241U; 80053; 81001; 85025; 99283; 99284

== ENCOUNTER 2023-10-12 13:40 | Outpatient (REF) | payer OTHER, SELFPAY ==
[2023-10-13 06:57] LABS: CT PCR NOT DETECTED (Not Detect.); NG PCR NOT DETECTED (Not Detect.)
[2023-10-14 11:43] LABS: BV Int Neg Control Negative (Negative); BV Int Pos Control Positive (Positive)
== END 2023-10-12 13:41 | disposition home or self-care (01) ==
LOC: HO.LNP 13:40
PROVIDERS: PCP Internal Medicine; Visit Provider Advanced Practice Midwife
DX: N85.8 Other specified noninflammatory disorders of uterus (principal); M54.50 Low back pain, unspecified; Z11.3 Encounter for screening for infections with a predominantly sexual mode of transmission
CPT/HCPCS: 0353U; 87480; 87510; 87660; 99212

== ENCOUNTER 2023-10-12 13:40 | Outpatient (AMB) | payer OTHER, SELFPAY ==
[2023-10-12 13:48] VITALS: BP 120/80; BMI 27.8
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
== END 2023-10-12 14:22 | disposition home or self-care (01) ==
PROVIDERS: PCP Internal Medicine; Visit Provider Advanced Practice Midwife
DX: M54.50 Low back pain, unspecified (principal); N85.8 Other specified noninflammatory disorders of uterus
CPT/HCPCS: 99213

== ENCOUNTER 2023-10-16 15:39 | Outpatient (REF) | payer OTHER, SELFPAY ==
--- NOTE | ~2023-10-16 | MM_ITS ---
EXAMINATION: MM SCREENING DIGITAL BREAST TOMOSYNTHESIS, BILATERAL CLINICAL INFORMATION: Screening. Asymptomatic. COMPARISON: Mammography: This study is compared with prior mammography from 2017. TECHNIQUE: Digital breast tomosynthesis is performed in both the craniocaudal and mediolateral oblique views along with computer-aided detection (CAD). Synthesized 2D images are generated from the tomosynthesis. FINDINGS: The breasts are heterogeneously dense, which may obscure small masses (ACR BI-RADS breast composition Category c). There are no significant masses, abnormal calcifications, or other abnormalities. MM/MM tomosynthesis screening BI IMPRESSION: No mammographic evidence of malignancy. ASSESSMENT: BI-RADS BI-RADS 1 - Negative RECOMMENDATION: Routine annual mammography screening. 1 year F/U This examination should not preclude the clinical evaluation of a suspicious palpable abnormality. This patient's information was entered into a reminder system with a target due date for their next mammogram.
== END 2023-10-16 15:40 | disposition home or self-care (01) ==
LOC: HO.MAMMO 15:39
PROVIDERS: PCP Internal Medicine; Visit Provider Internal Medicine
DX: Z12.31 Encounter for screening mammogram for malignant neoplasm of breast (principal)
CPT/HCPCS: 77063; 77067

== ENCOUNTER → 2023-10-16 16:00 | Outpatient (BNV) | payer OTHER, SELFPAY | PROVIDERS: PCP Internal Medicine; Visit Provider Radiology Diagnostic Radiology | DX: Z12.31 Encounter for screening mammogram for malignant neoplasm of breast (principal) | CPT/HCPCS: 77063; 77067 ==

== ENCOUNTER 2023-10-18 14:32 | Outpatient (REF) | payer OTHER, SELFPAY ==
[2023-10-18 15:47] LABS: Appearance Urine Clear; Color Urine Yellow; Glucose Urine UA Negative (Negative); Leukocyte Esterase Urine Negative (Negative); Nitrite Urine Negative (Negative); PH 7.5 (5.0-9.0); UMIC TRIGGER UACC YES; Urine Blood Small (1+) (Negative); Urine Ketones Trace mg/dL (Negative); Urine Protein Trace mg/dL (Neg-Trace)
[2023-10-18 15:50] LABS: Bacteria Urine None Seen (None Seen); Hyaline Casts Urine 0-2 /LPF (0-2); WBC Urine 0-5 /HPF (0-5)
== END 2023-10-18 14:33 | disposition home or self-care (01) ==
LOC: HO.LAB 14:32
PROVIDERS: Absent Provider Internal Medicine; PCP Internal Medicine; Visit Provider Advanced Practice Midwife
DX: E87.6 Hypokalemia (principal)
CPT/HCPCS: 81001; 81003

== ENCOUNTER 2023-11-12 15:34 | Emergency (ER) | payer OTHER, SELFPAY ==
--- NOTE | ~2023-11-12 | XR_ITS ---
EXAMINATION: XR CHEST CLINICAL INFORMATION: Chest pain COMPARISON: 09/10/2023 TECHNIQUE: 2 views of the chest were obtained. FINDINGS: No significant abnormality is noted involving the heart, lungs, mediastinum, bony thorax or soft tissues. Again seen is a calcified granuloma in the right upper lobe. XR/XR chest 2V IMPRESSION: Unremarkable examination.
[2023-11-12 15:47] VITALS: BP 145/73; PULSE 100; RESP 16; TEMP 37; O2SAT 99; BMI 24.5
--- NOTE | 2023-11-12 15:47 | ED.GENADULT ---
HPI - General Adult General Chief complaint: Upper Respiratory Symptoms Stated complaint: dizzy, shortness of breath Time Seen by Provider: 11/12/23 18:18 Source: patient, RN notes reviewed and old records reviewed Mode of arrival: ambulatory History of Present Illness ED Provider: Crissy Yang PA-C HPI narrative: 52-year-old female with a past medical history of GERD, HTN, migraines, fibromyalgia, presenting to the ED complaining of dry cough, SOB, chest discomfort with coughing, headache, and right ear pain since yesterday. States with similar symptoms, diagnosed with bronchitis. Admits recently traveled from [place]. Also reports chronic left-sided abdominal pain & brown urine has been following with RESIDENCY DIRECTOR with recent ultrasound. Denies drainage from ear, fever/chills, nausea, vomiting, diarrhea, dysuria/hematuria, vaginal bleeding Related Data Previous Rx's ?Medication ?Instructions ?Recorded blood pressure monitor (Blood #1 ea 09/06/22 Pressure Kit) cane #1 ea 09/06/22 loratadine 10 mg tablet 10 mg PO DAILY PRN for allergies 09/14/22 30 days #30 tabs acetaminophen 500 mg tablet 1,000 mg (2 x 500 mg) PO TID PRN 10/07/22 pain #20 tabs fluticasone propionate 50 2 spray intranasal Q12H 30 days 10/30/22 mcg/actuation nasal #16 grams spray,suspension (Flonase Allergy Relief) vtvitqvtuc-vbaynymivasif-mtpdmhtd 1 cap PO Q8H PRN pain #20 caps 01/16/23 50 mg-300 mg-40 mg capsule (Fioricet) gmflumsxhl-evqjwtxyfyaen-heuljhzr 1 cap PO Q4-6H PRN headache #10 02/17/23 50 mg-300 mg-40 mg capsule caps (Fioricet) cyclobenzaprine 10 mg tablet 10 mg PO TID PRN muscle spasm #10 02/27/23 tabs cholecalciferol (vitamin D3) 50 50 mcg PO DAILY 90 days #90 tabs 03/28/23 mcg (2,000 unit) tablet underpads (Bed Underpads) #100 ea 03/28/23 walker #1 ea 03/28/23 tramadol 50 mg tablet 50 mg PO TID PRN severe pain 04/08/23 (scale score 7-10) #12 tabs galcanezumab-gnlm 120 mg/mL 120 mg subcut ONCE 30 days #1 mL 04/20/23 subcutaneous pen injector (Emgality Pen) magnesium oxide 400 mg (241.3 mg 400 mg PO BEDTIME 30 days #30 tabs 04/20/23 magnesium) tablet riboflavin (vitamin B2) 400 mg 400 mg PO DAILY 30 days #30 tabs 04/20/23 tablet fluticasone furoate 50 1 inh inhalation DAILY 30 days #30 06/22/23 mcg/actuation blister powder for ea inhalation (Arnuity Ellipta) hydrochlorothiazide 25 mg tablet 25 mg PO DAILY 30 days #30 tabs 06/26/23 albuterol sulfate 90 mcg/actuation 2 puff PO Q4H PRN bronchospasm 30 06/27/23 aerosol inhaler days #8.5 grams clonazepam 0.5 mg tablet 0.5 mg PO BEDTIME PRN anxiety 30 10/07/23 days #60 tabs atorvastatin 20 mg tablet 20 mg PO BEDTIME 90 days #90 tabs 10/09/23 ipratropium 20 mcg-albuterol 100 1 puff PO QID 30 days #25 mL 10/18/23 mcg/actuation mist for inhalation (Combivent Respimat) fenofibrate 54 mg tablet 54 mg PO DAILY 90 days #90 tabs 10/24/23 potassium chloride 20 mEq 20 meq PO DAILY 30 days #30 tabs 10/28/23 tablet,extended release tramadol 50 mg tablet 50 mg PO BID PRN severe pain 11/07/23 (scale score 7-10) 30 days #60 tabs albuterol sulfate 2.5 mg/0.5 mL 5 mg inhalation Q4H PRN shortness 11/12/23 solution for nebulization of breath or wheezing #30 ea albuterol sulfate 90 mcg/actuation 2 puff inhalation Q4-6H PRN 11/12/23 aerosol inhaler shortness of breath or wheezing #6.7 grams benzonatate 100 mg capsule 100 mg PO TID PRN cough #14 caps 11/12/23 fluticasone propionate 50 2 spray intranasal DAILY #16 grams 11/12/23 mcg/actuation nasal spray,suspension (Flonase Allergy Relief) prednisone 20 mg tablet 40 mg (2 x 20 mg) PO DAILY 5 days 11/12/23 #10 tabs Allergies Allergy/AdvReac Type Severity Reaction Status Date / Time amitriptyline Allergy Intermediate headache Verified 11/12/23 15:49 ibuprofen [From Motrin] Allergy Intermediate ITCHY RASH Verified 11/12/23 15:49 gabapentin AdvReac Intermediate vomiting Verified 11/12/23 15:49 Review of Systems Review of Systems: Constitutional: No Weight loss, No Fever, No Chills ENT/Mouth: + Ear Pain, + Nasal Congestion, + Rhinorrhea, No Swallowing Difficulty Cardiovascular: + Chest Pain w/cough, + SOB Respiratory: + Cough, No Sputum, + Wheezing Gastrointestinal: No Nausea, No Vomiting, No Diarrhea, No Constipation, +chronic Abdominal pain Genitourinary: +discolored urine, No Dysuria, No Urinary Frequency, No Hematuria, No Urinary Incontinence/retention, No Flank Pain Musculoskeletal: No joint pain, No Myalgias, No Joint Swelling Skin: No Skin Lesions, No rash Neuro: No Weakness, No Numbness, No Paresthesias Yes all other systems are reviewed and are negative Constitutional: Constitutional: Reports as per [facility] Past Medical History Attestation statement: The following information was validated with the patient. Source: old records reviewed Medical History Acute maxillary sinusitis Otitis externa Hospital discharge follow-up Microscopic hematuria Physical exam Goiter Blurry vision Tobacco dependence Has daytime drowsiness Pulmonary nodules Moderate recurrent major depression Dyspnea Hand pain Skin lesion Leg pain, bilateral Dyslipidemia Epigastric pain Essential hypertension Cervical cancer screening GERD (gastroesophageal reflux disease) HTN (hypertension) Migraine Anxiety Depression Right lower quadrant pain Fibromyalgia Surgical History Previous section History of breast lump/mass excision History of lithotripsy H/O LEEP H/O tubal ligation Family History Family History Father Myocardial infarction Mother Lung cancer Brother Liver cancer Maternal Grandfather Stomach cancer Maternal Grandmother No problems noted. Social History Social History Housing: Apartment Alcohol intake: never Patient Tobacco Use Status: Current someday Tobacco user Tobacco use type: Cigarette Cigarettes Per Day: 3 e-Cigarette/Vaping Use: Never Used Second Hand Smoke Exposure: No Advance Directives: No Advance Directives Information Provided: No Do you have a plan to hurt others: No Plan service: No Current occupational status: disabled Gender identity: Female Cognitive needs: No Hearing needs: No Vision needs: No Physical Exam ED Vital Signs: Vital Signs - 24 hr 11/12/23 15:47 11/12/23 18:15 11/12/23 18:20 Temperature 98.6 F 98.4 F 99.4 F Pulse Rate 100 88 106 H Respiratory Rate 16 20 Blood Pressure 145/73 H 113/81 Pulse Oximetry 99 97 98 Oxygen Delivery Method Room Air Room Air Room Air BMI result Body Mass Index 24.5 Const General: cooperative, healthy appearing, no acute distress and alert Orientation/consciousness: patient oriented x3 Limitations: no limitations HENMT Head: Yes normal to inspection and Yes atraumatic Ears: hearing grossly normal bilaterally, external ears normal, TM's normal bilaterally and mastoids normal General nose exam: Normal external nose present Face and sinus: Yes normal facial exam Mouth: Normal oral and palatal mucosa present and no drooling Throat: Yes posterior oropharynx normal, Yes tonsils normal, Yes uvula midline, No uvula laterally displaced and No uvular edema Eyes General: appearance normal, both eyes and all related structures EOM: EOMs intact bilaterally Neck Neck: Yes normal visual inspection and Yes no meningeal signs Resp Other: Coarse lung sounds bibasilarly Effort & Inspection: normal respiratory effort and no respiratory distress Auscultation: clear to auscultation bilaterally, no crackles, no wheezes and lung sounds not diminished Cardio Rate: regular rate Heart sounds: S1 normal heart sound present and S2 normal heart sound present GI Inspection: Yes normal to inspection Palpation (GI): Soft to palpation, nontender, no guarding and not rigid General: Yes no CVA tenderness Back/Spine/Pelvis Back: no CVA tenderness Skin Rashes: no rashes Wounds: no wounds Neuro General: patient oriented x3, tone normal and no meningeal signs Cranial nerves: Yes CN's II-XII intact bilaterally Gait exam (Neuro): Normal gait present Extrem General: Yes normal to inspection Course Course Course Narrative: This is a rapid medical exam performed by Clementina Bowens NP: Additional HPI, ROS, PE not included below will be deferred to primary provider. Patient is a 52-year-old [place] speaking female presenting to the ED with complaint of cough, shortness of breath, chest pain worse with coughing since yesterday, now complaining of ear pain as well. sick with bronchitis, and grandson in [place] also sick with URI symptoms. Plan: EKG, labs, viral swabs, cxr -1858--labs reassuring. CXR unremarkable. Viral testing negative -1921--UA w/RBCs & blood which appears chronic. Will refer to Urology > patient states she has Urology appointment next month -1926--patient has not yet received DuoNeb however requesting discharge home with prescription for machine medications and inhaler. Results discussed with patient including worrisome signs and symptoms and strict return precautions, and when to return to the emergency department. They verbalized understanding and feel safe for discharge at this time. Medical Decision Making Medical Decision Making [facility] Narrative: 52-year-old female with a past medical history of GERD, HTN, migraines, fibromyalgia, presenting to the ED complaining of dry cough, SOB, chest discomfort with coughing, headache, and right ear pain since yesterday. Also reports chronic left-sided abdominal pain & brown urine has been following with RESIDENCY DIRECTOR with recent ultrasound. On exam vital signs stable, NAD, nontoxic appearing, coarse lung sounds bibasilarly, talking in complete sentences, no respiratory distress, abdomen soft/nontender, no CVAT. Concern for viral illness vs bronchitis vs pneumonia. Low suspicion for ACS/PE or CHF. Rule out UTI. Lower suspicion for renal stone/pyelo or ovarian torsion. Low suspicion for appendicitis/diverticulitis or cholecystitis Plan: Labs, UA, CXR, viral testing, DuoNeb, re-evaluate Please refer to course for remaining clinical decision making, interpretation of labs/imaging results, and discussions with consultants and/or family members. Differential Diagnosis Differential Diagnoses: The differential diagnosis associated with the presentation includes As above Admission/Observation Consideration of admission/observation: Escalation of care including admission/observation considered Lab Data [facility] Lab Attestation statement: I reviewed the patient's lab results. 11/12/23 16:24 11/12/23 16:24 Labs: Lab Results 11/12/23 11/12/23 Range/Units 16:24 18:58 WBC 9.5 (4.8-10.8) X10*3/uL RBC 4.63 (4.20-5.50) X10*6/uL Hgb 12.5 (12.0-16.0) g/dl Hct 37.7 (37.0-47.0) % MCV 81.4 (80.0-98.0) fL MCH 27.0 (27.0-33.0) pg MCHC 33.2 (31.0-35.0) g/dl RDW 13.2 (11.0-16.0) % Plt Count 328 (160-400) X10*3/uL MPV 10.6 (9.4-12.3) fL Immature Gran % (Auto) 0.4 (0.0-0.4) % Neut % (Auto) 79.1 H (45-73) % Lymph % (Auto) 15.8 L (20-40) % [place] % (Auto) 4.4 (2-11) % Eos % (Auto) 0.0 (0-4) % Baso % (Auto) 0.3 (0-2) % Lymph # (Auto) 1.5 (1.2-4.9) X10*3/uL [place] # (Auto) 0.4 (0.1-1.2) X10*3/uL Eos # (Auto) 0.0 (0.0-0.4) X10*3/uL Baso # (Auto) 0.0 (0.0-0.2) X10*3/uL Abs Immat Gran (auto) 0.04 H (0.00-0.03) X10*3/uL Absolute Neuts (auto) 7.5 (2.0-8.3) x10*3/uL Absolute Nucleated RBC 0.000 (0.0-0.012) X10*3/uL Nucleated RBC % (auto) 0.0 (0.0-0.2) /100WBC Sodium 143 (135-145) mmol/L Potassium 3.4 (3.3-5.1) mmol/L Chloride 106 (96-108) mmol/L Carbon Dioxide 27 (22-29) mmol/L Anion Gap 13 (12-20) BUN 16 (9-16) mg/dL Creatinine 0.82 (0.5-1.4) mg/dL Estim Creat Clear Calc 70.6 Estimated GFR > 60 Random Glucose 135 H (60-115) mg/dL Calcium 10.3 H D (8.4-10.2) mg/dL Total Bilirubin 0.3 (0.0-1.0) mg/dL AST 15 (5-31) U/L ALT 12 (0-31) U/L Alkaline Phosphatase 101 (39-117) U/L Troponin I High Sens < 2.7 (<3.5-17.0) ng/L Total Protein 8.1 H (6.5-8.0) g/dL Albumin 4.4 (3.5-5.0) g/dL Urine Color Yellow Urine Appearance Clear Urine pH 7.0 (5.0-9.0) Ur Specific [place] 1.020 (1.005-1.025) Urine Protein Trace (Neg-Trace) mg/dL Urine Glucose (UA) Negative (Negative) mg/dL Urine Ketones Negative (Negative) mg/dL Urine Blood Small (1+) H (Negative) Urine Nitrite Negative (Negative) Ur Leukocyte Esterase Negative (Negative) Urine RBC >20 H (0-2) /HPF Urine WBC 0-5 (0-5) /HPF Ur Squamous Epith Cells 3-5 (0-2) /HPF Urine Bacteria Trace (None Seen) Hyaline Casts 0-2 (0-2) /LPF Influenza Type A (PCR) NEGATIVE (Negative) Influenza Type B (PCR) NEGATIVE (Negative) RSV RNA Qual (PCR) NEGATIVE (Negative) SARS-CoV-2 RNA (RT-PCR) NEGATIVE (Negative) Independent Interpretation I performed an independent interpretation of an: Plain X-Ray (My interpretation: Appears unremarkable) Radiology Impression Discussion of test interpretation with radiology: I have reviewed the radiologist's reading. External Record Review External record reviewed: Inpatient record, Office record, Outpatient record, Prior outpatient labs, Prior outpatient radiology, Primary care record and Outside ED record Tests considered The following testing was considered but not selected: As above Discharge Plan Discharge Clinical Impression: Upper respiratory infection, Hematuria Patient Disposition: Home, Self-Care Instructions: Upper Respiratory Infection (DC) Additional Instructions: You tested negative for COVID, flu, RSV. Her x-ray is unremarkable Your blood work is reassuring You likely have a virus Flonase as a nasal decongestant Tessalon Perles for cough take as needed Please use albuterol inhaler Follow-up with her doctor and your OBGYN If symptoms persist or worsen return to the ED Prescriptions: New albuterol sulfate 90 mcg/actuation HFA aerosol inhaler 2 puff inhalation Q4-6H PRN (Reason: shortness of breath or wheezing) Qty: 6.7 0RF benzonatate 100 mg capsule 100 mg PO TID PRN (Reason: cough) Qty: 14 0RF fluticasone propionate [Flonase Allergy Relief] 50 mcg/actuation spray,suspension 2 spray intranasal DAILY Qty: 16 0RF Rx Instructions: administer into each nostril prednisone 20 mg tablet 40 mg PO DAILY 5 Days Qty: 10 0RF albuterol sulfate 2.5 mg/0.5 mL solution for nebulization 5 mg inhalation Q4H PRN (Reason: shortness of breath or wheezing) Qty: 30 0RF No Action (DME) blood pressure monitor [Blood Pressure Kit] Kit See Rx Instructions .ROUTE .MEDSUPPLY Qty: 1 0RF Rx Instructions: As directed (DME) cane Device See Rx Instructions .Route Qty: 1 0RF Rx Instructions: As directed fluticasone propionate [Flonase Allergy Relief] 50 mcg/actuation spray,suspension 2 spray intranasal Q12H 30 Days Qty: 16 0RF Rx Instructions: administer into each nostril cyclobenzaprine 10 mg tablet 10 mg PO TID PRN (Reason: muscle spasm) Qty: 10 0RF (DME) walker Misc See Rx Instructions .Route Qty: 1 0RF Rx Instructions: To be use lifetime (DME) underpads [Bed Underpads] Pad See Rx Instructions .Route Qty: 100 0RF Rx Instructions: As directed Arnuity Ellipta 50 mcg/actuation blister with device 1 inh inhalation DAILY 30 Days Qty: 30 6RF hydrochlorothiazide 25 mg tablet 25 mg PO DAILY 30 Days Qty: 30 11RF albuterol sulfate 90 mcg/actuation HFA aerosol inhaler 2 puff PO Q4H PRN (Reason: bronchospasm) 30 Days Qty: 8.5 6RF clonazepam 0.5 mg tablet 0.5 mg PO BEDTIME PRN (Reason: anxiety) 30 Days Qty: 60 1RF atorvastatin 20 mg tablet 20 mg PO BEDTIME 90 Days Qty: 90 1RF Combivent Respimat 20-100 mcg/actuation mist 1 puff PO QID 30 Days Qty: 25 1RF Patient Comments: Pulmo given fenofibrate 54 mg tablet 54 mg PO DAILY 90 Days Qty: 90 1RF potassium chloride 20 mEq tablet extended release 20 meq PO DAILY 30 Days Qty: 30 2RF tramadol 50 mg tablet 50 mg PO BID PRN (Reason: severe pain (scale score 7-10)) 30 Days Qty: 60 0RF acetaminophen 500 mg tablet 1,000 mg PO TID PRN (Reason: pain) Qty: 20 0RF metusqiqfl-svutmrsayrmll-wfpi [Fioricet] 50-300-40 mg capsule 1 cap PO Q8H PRN (Reason: pain) Qty: 20 0RF lgvfzredhg-srtysqmhnzqhx-dsmt [Fioricet] 50-300-40 mg capsule 1 cap PO Q4-6H PRN (Reason: headache) Qty: 10 0RF tramadol 50 mg tablet 50 mg PO TID PRN (Reason: severe pain (scale score 7-10)) Qty: 12 0RF cholecalciferol (vitamin D3) 50 mcg (2,000 unit) tablet 50 mcg PO DAILY 90 Days Qty: 90 1RF loratadine 10 mg tablet 10 mg PO DAILY PRN (Reason: for allergies) 30 Days Qty: 30 1RF Emgality Pen 120 mg/mL pen injector 120 mg subcut ONCE 30 Days Qty: 1 6RF magnesium oxide 400 mg (241.3 mg magnesium) tablet 400 mg PO BEDTIME 30 Days Qty: 30 6RF Rx Instructions: may hold for loose stools riboflavin (vitamin B2) 400 mg tablet 400 mg PO DAILY 30 Days Qty: 30 6RF Referrals: [facility] [Provider Group] Neyda Foster MD [Primary Care Provider] - 3 days Print Language: [place]
--- NOTE | 2023-11-12 15:49 | ECG_ITS ---
Test Reason : CHEST PAIN Blood Pressure : / mmHG Vent. Rate : 096 BPM Atrial Rate : 096 BPM P-R Int : 132 ms QRS Dur : 074 ms QT Int : 366 ms P-R-T Axes : 055 014 -01 degrees QTc Int : 462 ms Normal sinus rhythm Normal ECG When compared with ECG of 06-AUG-2023 15:07, No significant change was found Referred By: Yessenia Bowens Electronically Signed By:DAVON REVELES
[2023-11-12 16:29] LABS: MANUAL DIFF FLAG NO
[2023-11-12 16:42] LABS: Basophils Percent Auto 0.3 % (0-2); Hematocrit 37.7 % (37.0-47.0); Hemoglobin 12.5 g/dl (12.0-16.0); Imm Gran Abs Auto 0.04 X10*3/uL (0.00-0.03); Imm Gran Pct Auto 0.4 % (0.0-0.4); Lymphocytes Absolute Auto 1.5 X10*3/uL (1.2-4.9); Lymphocytes Percent Auto 15.8 % (20-40); Mean Corpuscular HGB Conc 33.2 g/dl (31.0-35.0); Mean Corpuscular Volume 81.4 fL (80.0-98.0); Mean Platelet Volume 10.6 fL (9.4-12.3); Monocytes Absolute Auto 0.4 X10*3/uL (0.1-1.2); Monocytes Percent Auto 4.4 % (2-11); Neutrophils Absolute Auto 7.5 x10*3/uL (2.0-8.3); Neutrophils Percent Auto 79.1 % (45-73); Platelet Count 328 X10*3/uL (160-400); Red Blood Count 4.63 X10*6/uL (4.20-5.50); Red Cell Distribution Width 13.2 % (11.0-16.0); White Blood Count 9.5 X10*3/uL (4.8-10.8)
[2023-11-12 16:51] LABS: Alanine Aminotransferase 12 U/L (0-31); Albumin Level 4.4 g/dL (3.5-5.0); Alkaline Phosphatase 101 U/L (39-117); Anion Gap 13 (12-20); Aspartate Amino Transferase 15 U/L (5-31); Bilirubin Total 0.3 mg/dL (0.0-1.0); Blood Urea Nitrogen 16 mg/dL (9-16); Calcium 10.3 mg/dL (8.4-10.2); Carbon Dioxide 27 mmol/L (22-29); Chloride 106 mmol/L (96-108); Creatinine Clr Calc Pharmacy 70.6; Estimated Glomerular Filt Rate > 60; Glucose Random 135 mg/dL (60-115); Potassium 3.4 mmol/L (3.3-5.1); Sodium 143 mmol/L (135-145); Total Protein 8.1 g/dL (6.5-8.0)
[2023-11-12 17:06] LABS: Troponin-I High Sensitivity < 2.7 ng/L (<3.5-17.0)
[2023-11-12 17:33] LABS: Influenza A PCR NEGATIVE (Negative); Influenza B PCR NEGATIVE (Negative); Resp Syncy Virus RNA Qual PCR NEGATIVE (Negative); SARS COV2 PCR INHOUSE NEGATIVE (Negative)
[2023-11-12 18:15] VITALS: BP 113/81; PULSE 88; RESP 20; TEMP 36.9; O2SAT 97
[2023-11-12 18:20] VITALS: PULSE 106; TEMP 37.4; O2SAT 98
[2023-11-12 19:10] LABS: Appearance Urine Clear; Color Urine Yellow; Glucose Urine UA Negative (Negative); Leukocyte Esterase Urine Negative (Negative); Nitrite Urine Negative (Negative); UMIC TRIGGER UACC YES; Urine Blood Small (1+) (Negative); Urine Ketones Negative (Negative); Urine Protein Trace mg/dL (Neg-Trace)
[2023-11-12 19:19] LABS: Bacteria Urine Trace (None Seen); Hyaline Casts Urine 0-2 /LPF (0-2); RBC Urine >20 /HPF (0-2); WBC Urine 0-5 /HPF (0-5)
[2023-11-12] MEDS: Albuterol/Iprat 2.5/0.5MG 3 ML AMPUL.NEB INHALE (19:31)
[2023-11-12 19:32] VITALS: BP 138/76; PULSE 102; RESP 20; TEMP 36.9; O2SAT 97
[2023-11-12 19:33] VITALS: PULSE 106; RESP 16; O2SAT 98
[2023-11-12 19:49] VITALS: BP 138/76; PULSE 102; RESP 20; TEMP 36.9; O2SAT 97
== END 2023-11-12 19:50 | disposition home or self-care (01) ==
PROVIDERS: Physician Assistant; Registered Nurse Emergency; Emergency Provider Emergency Medicine; PCP Internal Medicine
DX: J06.9 Acute upper respiratory infection, unspecified (principal); R31.9 Hematuria, unspecified; I10 Essential (primary) hypertension
CPT/HCPCS: 0241U; 71046; 80053; 81001; 84484; 85025; 93005; 99284

== ENCOUNTER → 2023-11-12 15:49 | Outpatient (BNV) | payer OTHER, SELFPAY | PROVIDERS: Emergency Provider Emergency Medicine; PCP Internal Medicine; Visit Provider Internal Medicine | DX: R07.9 Chest pain, unspecified (principal) | CPT/HCPCS: 93010 ==

== ENCOUNTER 2023-11-21 11:28 | Emergency (ER) | payer OTHER, SELFPAY ==
--- NOTE | ~2023-11-21 | XR_ITS ---
EXAMINATION: XR CHEST 2 VIEW CLINICAL INFORMATION: Chest pain and dyspnea and cough COMPARISON: 11/12/2023 TECHNIQUE: PA and lateral views of the chest obtained. FINDINGS: The lungs are clear. There are no pleural effusions. The cardiomediastinal silhouette is normal. XR/XR chest 2V IMPRESSION: No acute cardiopulmonary disease.
--- NOTE | 2023-11-21 11:32 | ECG_ITS ---
Test Reason : CHEST PAIN Blood Pressure : / mmHG Vent. Rate : 093 BPM Atrial Rate : 093 BPM P-R Int : 144 ms QRS Dur : 072 ms QT Int : 358 ms P-R-T Axes : 056 020 005 degrees QTc Int : 445 ms Normal sinus rhythm Nonspecific ST abnormality Abnormal ECG When compared with ECG of 12-NOV-2023 16:14, No significant change was found Referred By: Yessenia Bowens Electronically Signed By:MARILU MANN MD
[2023-11-21 11:49] VITALS: BP 120/90; PULSE 88; RESP 18; TEMP 36.6; O2SAT 98; BMI 27.4
--- NOTE | 2023-11-21 11:49 | ED_ITS ---
HPI - General Adult General Chief complaint: General Medical Stated complaint: slight CP, multiple symptoms Time Seen by Provider: 11/21/23 14:53 Source: patient Mode of arrival: ambulatory Limitations: no limitations History of Present Illness HPI narrative: 52 year old female PMH: GERD, HTN, migraines, fibromyalgia from [place] recently moved here coming in for chronic cough dizziness weaknesss patient was seen here for the same last week was sent home on an inhaler benzonatate fluticasone prednisone and returns with continued symptoms she denies any falls or injuries patient was seen at front had x-ray and labs all ordered everything came looks normal. Patient has had right-sided ear pain dizziness and the pain to her entire body for the past year she has had a brain MRI CTs x-rays labs and has seen Urology and ENT as well. Patient has had a completely normal workup there is no change but she is feeling overwhelmed states she pees and has brown urine. She states she pees 8 times a day she has been here for 2 hours but unable to give us urine sample she did get a workup which was all unremarkable and explain this the patient tearful and stated that she is very depressed. She already does have services at home that come and clean her house for 2 hours. Related Data Previous Rx's ?Medication ?Instructions ?Recorded blood pressure monitor (Blood #1 ea 09/06/22 Pressure Kit) cane #1 ea 09/06/22 loratadine 10 mg tablet 10 mg PO DAILY PRN for allergies 09/14/22 30 days #30 tabs acetaminophen 500 mg tablet 1,000 mg (2 x 500 mg) PO TID PRN 10/07/22 pain #20 tabs fluticasone propionate 50 2 spray intranasal Q12H 30 days 10/30/22 mcg/actuation nasal #16 grams spray,suspension (Flonase Allergy Relief) afrqgcnskk-hydobbuddmlco-azrgkjjy 1 cap PO Q8H PRN pain #20 caps 01/16/23 50 mg-300 mg-40 mg capsule (Fioricet) ickojefjwi-hkucdljdriapj-uezwwiae 1 cap PO Q4-6H PRN headache #10 02/17/23 50 mg-300 mg-40 mg capsule caps (Fioricet) cyclobenzaprine 10 mg tablet 10 mg PO TID PRN muscle spasm #10 02/27/23 tabs cholecalciferol (vitamin D3) 50 50 mcg PO DAILY 90 days #90 tabs 03/28/23 mcg (2,000 unit) tablet underpads (Bed Underpads) #100 ea 03/28/23 walker #1 ea 03/28/23 tramadol 50 mg tablet 50 mg PO TID PRN severe pain 04/08/23 (scale score 7-10) #12 tabs galcanezumab-gnlm 120 mg/mL 120 mg subcut ONCE 30 days #1 mL 04/20/23 subcutaneous pen injector (Emgality Pen) magnesium oxide 400 mg (241.3 mg 400 mg PO BEDTIME 30 days #30 tabs 04/20/23 magnesium) tablet riboflavin (vitamin B2) 400 mg 400 mg PO DAILY 30 days #30 tabs 04/20/23 tablet fluticasone furoate 50 1 inh inhalation DAILY 30 days #30 06/22/23 mcg/actuation blister powder for ea inhalation (Arnuity Ellipta) hydrochlorothiazide 25 mg tablet 25 mg PO DAILY 30 days #30 tabs 06/26/23 albuterol sulfate 90 mcg/actuation 2 puff PO Q4H PRN bronchospasm 30 06/27/23 aerosol inhaler days #8.5 grams clonazepam 0.5 mg tablet 0.5 mg PO BEDTIME PRN anxiety 30 10/07/23 days #60 tabs atorvastatin 20 mg tablet 20 mg PO BEDTIME 90 days #90 tabs 10/09/23 ipratropium 20 mcg-albuterol 100 1 puff PO QID 30 days #25 mL 10/18/23 mcg/actuation mist for inhalation (Combivent Respimat) fenofibrate 54 mg tablet 54 mg PO DAILY 90 days #90 tabs 10/24/23 potassium chloride 20 mEq 20 meq PO DAILY 30 days #30 tabs 10/28/23 tablet,extended release tramadol 50 mg tablet 50 mg PO BID PRN severe pain 11/07/23 (scale score 7-10) 30 days #60 tabs albuterol sulfate 2.5 mg/0.5 mL 5 mg inhalation Q4H PRN shortness 11/12/23 solution for nebulization of breath or wheezing #30 ea albuterol sulfate 90 mcg/actuation 2 puff inhalation Q4-6H PRN 11/12/23 aerosol inhaler shortness of breath or wheezing #6.7 grams benzonatate 100 mg capsule 100 mg PO TID PRN cough #14 caps 11/12/23 fluticasone propionate 50 2 spray intranasal DAILY #16 grams 11/12/23 mcg/actuation nasal spray,suspension (Flonase Allergy Relief) prednisone 20 mg tablet 40 mg (2 x 20 mg) PO DAILY 5 days 11/12/23 #10 tabs Allergies Allergy/AdvReac Type Severity Reaction Status Date / Time amitriptyline Allergy Intermediate headache Verified 11/21/23 11:52 ibuprofen [From Motrin] Allergy Intermediate ITCHY RASH Verified 11/21/23 11:52 gabapentin AdvReac Intermediate vomiting Verified 11/21/23 11:52 Review of Systems 2 Review of Systems: Review of systems: General: Patient denies any fever chills recent illness or falls Musculoskeletal: Denies back pain or body aches or other injuries HEENT: denies headache, runny nose, ear pain Respiratory: denies shortness of breath, cough Cardiovascular: no chest pain or palpitations : denies dysuria, frequency Abdomen: no nausea vomiting denies abdominal pain Extremities: no swelling, no pain Skin: no diaphoresis Yes all other systems are reviewed and are negative [facility] Past Medical History Medical History Acute maxillary sinusitis Otitis externa Hospital discharge follow-up Microscopic hematuria Physical exam Goiter Blurry vision Tobacco dependence Has daytime drowsiness Pulmonary nodules Moderate recurrent major depression Dyspnea Hand pain Skin lesion Leg pain, bilateral Dyslipidemia Epigastric pain Essential hypertension Cervical cancer screening GERD (gastroesophageal reflux disease) HTN (hypertension) Migraine Anxiety Depression Right lower quadrant pain Fibromyalgia Surgical History Previous section History of breast lump/mass excision History of lithotripsy H/O LEEP H/O tubal ligation Family History Family History Father Myocardial infarction Mother Lung cancer Brother Liver cancer Maternal Grandfather Stomach cancer Maternal Grandmother No problems noted. Social History Social History Housing: Apartment Alcohol intake: never Patient Tobacco Use Status: Current someday Tobacco user Tobacco use type: Cigarette Cigarettes Per Day: 3 e-Cigarette/Vaping Use: Never Used Second Hand Smoke Exposure: No Advance Directives: No Advance Directives Information Provided: No service: No Current occupational status: disabled Gender identity: Female Cognitive needs: No Hearing needs: No Vision needs: No Physical Exam ED Vital Signs: Vital Signs - 24 hr 11/21/23 11:49 11/21/23 15:16 Temperature 98 F 98.0 F Pulse Rate 88 87 Respiratory Rate 18 18 Blood Pressure 120/90 H 144/91 H Pulse Oximetry 98 98 Oxygen Delivery Method Room Air BMI result Body Mass Index 27.4 Neurological exam: CN II- XII tested. Patient is alert and oriented to person place and time. Patient has no dysphagia or dysarthia, denies good vision in all four vision [place] no nystagmus on exam, good strength to upper and lower extremities with normal reflexes to brachioradialis, wrist, patella and achilles. Negative romberg, good finger to nose and heel to sanchez. General: Well-appearing well-nourished in no signs of distress HEENT: Normocephalic atraumatic Neck: No signs of JVD, no masses no tenderness or lymphadenopathy Cardiovascular: Regular rate and rhythm Respiratory: Clear to auscultation bilaterally Abdomen: Soft nontender no masses Extremities: Normal pedal pulses no signs of edema Skin: Dry warm no rashes Back: No tenderness full ROM Course Course Course Narrative: This is a rapid medical exam performed by Clementina Bowens NP: Additional HPI, ROS, PE not included below will be deferred to primary provider. Patient is a Kinyarwanda speaking 52-year-old female presenting to the ED with complaint of ongoing headaches, nausea, dizziness, chills, bilat ear pain, chest pain and dyspnea for the past 2 weeks. Seen here on 11/11 for same sxs, sxs did not improve with the medications prescribed. Recently came here from [place]. Plan: EKG, CXR, labs, viral serology, UA Reevaluation(s) Reevaluation #1: Patient offered crisis evaluation as well as the urine to be sent she did not give us a urine sample after several hours and decided she was going to walk out I think the patient is safe to go home there is no concerns for safety or SI Medical Decision Making Medical Decision Making MDM Narrative: Patient is completely normal workup I did explain that symptoms from a cold last for 6-8 weeks patient looks well she is chronic dizziness is ready did not CT scans and MRIs of her brain in the past year I see no reason for the patient to be admitted for ear looks okay show areas seen ENT I did explain that the patient started to cry stating she lives alone she is afraid for balance she already has people come to her house and take care of her several times a day I will get hold of crisis for evaluation. Differential Diagnosis Differential Diagnoses: The differential diagnosis associated with the presentation includes Weakness pneumonia dehydration UTI electrolyte abnormality dizziness chronic fibromyalgia dizziness and depression patient does not want talk to crisis Admission/Observation Consideration of admission/observation: Escalation of care including admission/observation considered Lab Data [facility] Lab Attestation statement: I reviewed the patient's lab results. 11/21/23 12:02 11/21/23 12:02 Labs: Lab Results 11/21/23 Range/Units 12:02 WBC 11.1 H (4.8-10.8) X10*3/uL RBC 4.62 (4.20-5.50) X10*6/uL Hgb 12.7 (12.0-16.0) g/dl Hct 38.0 (37.0-47.0) % MCV 82.3 (80.0-98.0) fL MCH 27.5 (27.0-33.0) pg MCHC 33.4 (31.0-35.0) g/dl RDW 13.3 (11.0-16.0) % Plt Count 305 (160-400) X10*3/uL MPV 10.3 (9.4-12.3) fL Immature Gran % (Auto) 0.3 (0.0-0.4) % Neut % (Auto) 70.6 (45-73) % Lymph % (Auto) 21.2 (20-40) % [place] % (Auto) 7.3 (2-11) % Eos % (Auto) 0.1 (0-4) % Baso % (Auto) 0.5 (0-2) % Lymph # (Auto) 2.3 (1.2-4.9) X10*3/uL [place] # (Auto) 0.8 (0.1-1.2) X10*3/uL Eos # (Auto) 0.0 (0.0-0.4) X10*3/uL Baso # (Auto) 0.1 (0.0-0.2) X10*3/uL Abs Immat Gran (auto) 0.03 (0.00-0.03) X10*3/uL Absolute Neuts (auto) 7.8 (2.0-8.3) x10*3/uL Absolute Nucleated RBC 0.000 (0.0-0.012) X10*3/uL Nucleated RBC % (auto) 0.0 (0.0-0.2) /100WBC PT 11.9 (11.1-13.3) SEC INR 1.0 (0.9-1.1) Sodium 141 (135-145) mmol/L Potassium 3.5 (3.3-5.1) mmol/L Chloride 103 (96-108) mmol/L Carbon Dioxide 25 (22-29) mmol/L Anion Gap 17 (12-20) BUN 14 (9-16) mg/dL Creatinine 0.76 (0.5-1.4) mg/dL Estim Creat Clear Calc 73.4 Estimated GFR > 60 Random Glucose 87 (60-115) mg/dL Calcium 10.0 (8.4-10.2) mg/dL Total Bilirubin 0.3 (0.0-1.0) mg/dL AST 14 (5-31) U/L ALT 13 (0-31) U/L Alkaline Phosphatase 105 (39-117) U/L Troponin I High Sens < 2.7 (<3.5-17.0) ng/L Total Protein 7.7 (6.5-8.0) g/dL Albumin 4.2 (3.5-5.0) g/dL Influenza Type A (PCR) NEGATIVE (Negative) Influenza Type B (PCR) NEGATIVE (Negative) RSV RNA Qual (PCR) NEGATIVE (Negative) SARS-CoV-2 RNA (RT-PCR) NEGATIVE (Negative) Independent Interpretation I performed an independent interpretation of an: EKG and Plain X-Ray Radiology Impression Discussion of test interpretation with radiology: I have reviewed the radiologist's reading. External Record Review External record reviewed: Inpatient record, Office record and Outpatient record Discharge Plan Discharge Clinical Impression: Depression, Dizziness Patient Disposition: Home, Self-Care Additional Instructions: You were seen in the emergency department for chronic dizziness ear pain and body aches as well as depression. Your offered psych evaluation you did get lab work which was all unremarkable. If you have any other concerns please do not hesitate to come back to the emergency department. Prescriptions: No Action (DME) blood pressure monitor [Blood Pressure Kit] Kit See Rx Instructions .ROUTE .MEDSUPPLY Qty: 1 0RF Rx Instructions: As directed (DME) cane Device See Rx Instructions .Route Qty: 1 0RF Rx Instructions: As directed fluticasone propionate [Flonase Allergy Relief] 50 mcg/actuation spray,suspension 2 spray intranasal Q12H 30 Days Qty: 16 0RF Rx Instructions: administer into each nostril cyclobenzaprine 10 mg tablet 10 mg PO TID PRN (Reason: muscle spasm) Qty: 10 0RF (DME) walker Misc See Rx Instructions .Route Qty: 1 0RF Rx Instructions: To be use lifetime (DME) underpads [Bed Underpads] Pad See Rx Instructions .Route Qty: 100 0RF Rx Instructions: As directed Arnuity Ellipta 50 mcg/actuation blister with device 1 inh inhalation DAILY 30 Days Qty: 30 6RF hydrochlorothiazide 25 mg tablet 25 mg PO DAILY 30 Days Qty: 30 11RF albuterol sulfate 90 mcg/actuation HFA aerosol inhaler 2 puff PO Q4H PRN (Reason: bronchospasm) 30 Days Qty: 8.5 6RF clonazepam 0.5 mg tablet 0.5 mg PO BEDTIME PRN (Reason: anxiety) 30 Days Qty: 60 1RF atorvastatin 20 mg tablet 20 mg PO BEDTIME 90 Days Qty: 90 1RF Combivent Respimat 20-100 mcg/actuation mist 1 puff PO QID 30 Days Qty: 25 1RF Patient Comments: Pulmo given fenofibrate 54 mg tablet 54 mg PO DAILY 90 Days Qty: 90 1RF potassium chloride 20 mEq tablet extended release 20 meq PO DAILY 30 Days Qty: 30 2RF tramadol 50 mg tablet 50 mg PO BID PRN (Reason: severe pain (scale score 7-10)) 30 Days Qty: 60 0RF acetaminophen 500 mg tablet 1,000 mg PO TID PRN (Reason: pain) Qty: 20 0RF fiusjupcwl-wapwlgnxpplgy-jmsl [Fioricet] 50-300-40 mg capsule 1 cap PO Q8H PRN (Reason: pain) Qty: 20 0RF uigreulndg-yjkrkzagapdsa-qtvh [Fioricet] 50-300-40 mg capsule 1 cap PO Q4-6H PRN (Reason: headache) Qty: 10 0RF tramadol 50 mg tablet 50 mg PO TID PRN (Reason: severe pain (scale score 7-10)) Qty: 12 0RF albuterol sulfate 90 mcg/actuation HFA aerosol inhaler 2 puff inhalation Q4-6H PRN (Reason: shortness of breath or wheezing) Qty: 6.7 0RF benzonatate 100 mg capsule 100 mg PO TID PRN (Reason: cough) Qty: 14 0RF fluticasone propionate [Flonase Allergy Relief] 50 mcg/actuation spray,suspension 2 spray intranasal DAILY Qty: 16 0RF Rx Instructions: administer into each nostril prednisone 20 mg tablet 40 mg PO DAILY 5 Days Qty: 10 0RF albuterol sulfate 2.5 mg/0.5 mL solution for nebulization 5 mg inhalation Q4H PRN (Reason: shortness of breath or wheezing) Qty: 30 0RF cholecalciferol (vitamin D3) 50 mcg (2,000 unit) tablet 50 mcg PO DAILY 90 Days Qty: 90 1RF loratadine 10 mg tablet 10 mg PO DAILY PRN (Reason: for allergies) 30 Days Qty: 30 1RF Emgality Pen 120 mg/mL pen injector 120 mg subcut ONCE 30 Days Qty: 1 6RF magnesium oxide 400 mg (241.3 mg magnesium) tablet 400 mg PO BEDTIME 30 Days Qty: 30 6RF Rx Instructions: may hold for loose stools riboflavin (vitamin B2) 400 mg tablet 400 mg PO DAILY 30 Days Qty: 30 6RF Print Language: Kinyarwanda
[2023-11-21 12:07] LABS: MANUAL DIFF FLAG NO
[2023-11-21 12:09] LABS: Basophils Absolute Auto 0.1 X10*3/uL (0.0-0.2); Basophils Percent Auto 0.5 % (0-2); Eosinophils Percent Auto 0.1 % (0-4); Hemoglobin 12.7 g/dl (12.0-16.0); Imm Gran Abs Auto 0.03 X10*3/uL (0.00-0.03); Imm Gran Pct Auto 0.3 % (0.0-0.4); Lymphocytes Absolute Auto 2.3 X10*3/uL (1.2-4.9); Lymphocytes Percent Auto 21.2 % (20-40); Mean Corpuscular HGB Conc 33.4 g/dl (31.0-35.0); Mean Corpuscular Hemoglobin 27.5 pg (27.0-33.0); Mean Corpuscular Volume 82.3 fL (80.0-98.0); Mean Platelet Volume 10.3 fL (9.4-12.3); Monocytes Absolute Auto 0.8 X10*3/uL (0.1-1.2); Monocytes Percent Auto 7.3 % (2-11); Neutrophils Absolute Auto 7.8 x10*3/uL (2.0-8.3); Neutrophils Percent Auto 70.6 % (45-73); Platelet Count 305 X10*3/uL (160-400); Red Blood Count 4.62 X10*6/uL (4.20-5.50); Red Cell Distribution Width 13.3 % (11.0-16.0); White Blood Count 11.1 X10*3/uL (4.8-10.8)
[2023-11-21 12:16] LABS: Prothrombin Time 11.9 SEC (11.1-13.3)
[2023-11-21 12:23] LABS: Alanine Aminotransferase 13 U/L (0-31); Albumin Level 4.2 g/dL (3.5-5.0); Alkaline Phosphatase 105 U/L (39-117); Anion Gap 17 (12-20); Aspartate Amino Transferase 14 U/L (5-31); Bilirubin Total 0.3 mg/dL (0.0-1.0); Blood Urea Nitrogen 14 mg/dL (9-16); Carbon Dioxide 25 mmol/L (22-29); Chloride 103 mmol/L (96-108); Creatinine Clr Calc Pharmacy 73.4; Estimated Glomerular Filt Rate > 60; Glucose Random 87 mg/dL (60-115); Potassium 3.5 mmol/L (3.3-5.1); Sodium 141 mmol/L (135-145); Total Protein 7.7 g/dL (6.5-8.0)
[2023-11-21 12:39] LABS: Troponin-I High Sensitivity < 2.7 ng/L (<3.5-17.0)
[2023-11-21 12:50] LABS: Influenza A PCR NEGATIVE (Negative); Influenza B PCR NEGATIVE (Negative); Resp Syncy Virus RNA Qual PCR NEGATIVE (Negative); SARS COV2 PCR INHOUSE NEGATIVE (Negative)
[2023-11-21 15:16] VITALS: BP 144/91; PULSE 87; RESP 18; TEMP 36.7; O2SAT 98
[2023-11-21 15:42] VITALS: BP 144/91; PULSE 87; RESP 18; TEMP 36.7; O2SAT 98
== END 2023-11-21 15:47 | disposition home or self-care (01) ==
PROVIDERS: Registered Nurse Emergency; Emergency Provider Student in an Organized Health Care Education/Training Program; PCP Internal Medicine
DX: F32.A Depression, unspecified (principal); R42 Dizziness and giddiness; R05.9 Cough, unspecified; R07.9 Chest pain, unspecified; R53.1 Weakness; Z03.818 Encounter for observation for suspected exposure to other biological agents ruled out; Z79.899 Other long term (current) drug therapy
CPT/HCPCS: 0241U; 36415; 71046; 80053; 84484; 85025; 85610; 93005; 99283

== ENCOUNTER → 2023-11-21 11:32 | Outpatient (BNV) | payer OTHER, SELFPAY | PROVIDERS: Emergency Provider Student in an Organized Health Care Education/Training Program; PCP Internal Medicine; Visit Provider Internal Medicine Cardiovascular Disease | DX: R07.9 Chest pain, unspecified (principal) | CPT/HCPCS: 93010 ==

== ENCOUNTER 2023-12-14 14:22 | Outpatient (AMB) | payer OTHER, SELFPAY ==
--- NOTE | 2023-12-14 14:43 | AM.OFFWIN_ITS ---
Intake Vital Signs 12/14/23 14:46 Height 5 ft 1 in Weight 150 lb BMI 28.3 BP 108/66 Blood Pressure Location Lt brachial Position Sitting Pulse 82 Pulse Source Pulse Oximeter Temp 98.4 F Temp Source Oral Pulse Oximetry (%) 98 Oxygen Delivery Method Room Air Intake Visit Reasons: EP headache, unbalanced, dizzy Intake Note: pt here c/o headache, balance problem and dizziness. Started Sunday Patient Tobacco Use Status: Current someday Tobacco user Allergies amitriptyline Allergy (Intermediate, Verified 12/14/23 14:44) headache ibuprofen [From Motrin] Allergy (Intermediate, Verified 12/14/23 14:44) ITCHY RASH gabapentin Adverse Reaction (Intermediate, Verified 12/14/23 14:44) vomiting Do you need a note to return to daycare/school/sports/work: No HPI HPI Comments History of Present Illness Details Patient is a 52-year-old female complaining of bilateral ear pain, sinus pain, headache and dizziness like she feels off-balance x3 days. She denies any fevers. She states she has tried taking Fioricet and Tylenol with no relief. She states she has a history of ear infections. She states she just recently traveled to [place] and it seems to have gotten worse since she has been back. [facility] Medical History Acute maxillary sinusitis Otitis externa Hospital discharge follow-up Microscopic hematuria Physical exam Goiter Blurry vision Tobacco dependence Has daytime drowsiness Pulmonary nodules Moderate recurrent major depression Dyspnea Hand pain Skin lesion Leg pain, bilateral Dyslipidemia Epigastric pain Essential hypertension Cervical cancer screening GERD (gastroesophageal reflux disease) HTN (hypertension) Migraine Anxiety Depression Right lower quadrant pain Fibromyalgia Surgical History Previous section History of breast lump/mass excision History of lithotripsy H/O LEEP H/O tubal ligation Family History Father Myocardial infarction Mother Lung cancer Brother Liver cancer Maternal Grandfather Stomach cancer Maternal Grandmother No problems noted. Social History Housing: Apartment Alcohol intake: never Patient Tobacco Use Status: Current someday Tobacco user Tobacco use type: Cigarette Cigarettes Per Day: 3 e-Cigarette/Vaping Use: Never Used Second Hand Smoke Exposure: No service: No Current occupational status: disabled Gender identity: Female Cognitive needs: No Hearing needs: No Vision needs: No Female Reproductive History Menstrual Age of Menarche: 9 Review of Systems Const All systems reviewed & are unremarkable except as noted in HPI and below Physical Exam Vital Signs: Last Vital Signs Temp 98.4 F 12/14/23 14:46 Pulse 82 12/14/23 14:46 BP 108/66 12/14/23 14:46 Pulse Ox 98 12/14/23 14:46 Oxygen Delivery Method Room Air 12/14/23 14:46 BMI result Body Mass Index 28.3 Const General: cooperative, healthy appearing, comfortable and no acute distress Orientation/consciousness: patient oriented x3 Limitations: no limitations HEENT Head: Yes normal to inspection Ears: external ears normal and TM abnormal wth effusion (bilateral) purulent and with loss of landmarks bilateral General nose exam: Normal external nose present, Normal nares present and No nasal discharge present Face and sinus: Yes normal facial exam and Yes sinus tenderness (maxillary) Mouth: Normal oral and palatal mucosa present and moist mucous membranes Throat: Yes tonsils normal, Yes uvula midline and Yes posterior oropharynx abnormal (Erythema) Eyes General: appearance normal, both eyes and all related structures Neck Neck: Yes normal visual inspection Resp Effort & Inspection: normal respiratory effort, able to speak in complete sentences and no respiratory distress Skin General skin exam: no rashes or lesions noted Neuro General: patient oriented x3 Extrem General: Yes normal to inspection and Yes no clubbing, cyanosis or edema Assessment & Plan Assessment & Plan (1) Sinusitis: Code(s): J32.9 - Chronic sinusitis, unspecified Qualifiers: Sinusitis location: maxillary Chronicity: acute Recurrence: non- recurrent Qualified Code(s): J01.00 - Acute maxillary sinusitis, unspecified Plan: Rx to pharmacy for acute sinusitis (2) Otitis media: Code(s): H66.90 - Otitis media, unspecified, unspecified ear Qualifiers: Otitis media type: suppurative Chronicity: acute Laterality: bilateral Recurrence: non-recurrent Spontaneous tympanic membrane rupture: without spont aneous rupture Qualified Code(s): H66.003 - Acute suppurative otitis media without spontaneous rupture of ear drum, bilateral Plan: Above antibiotics will cover this as well Plan See above Medications: New amoxicillin-pot clavulanate 875-125 mg 1 tab PO Q12H 14 tabs 0RF Coding Level of Care Code Est Pt Level 3 (07371) Diagnoses Acute non-recurrent maxillary sinusitis J01.00 Sinusitis location: maxillary Chronicity: acute Recurrence: non-recurrent Non-recurrent acute suppurative otitis media of both ears without spontaneous rupture of tympanic membranes H66.003 Otitis media type: suppurative Chronicity: acute Laterality: bilateral Recurrence: non-recurrent Spontaneous tympanic membrane rupture: without spontaneous rupture
[2023-12-14 14:46] VITALS: BP 108/66; PULSE 82; TEMP 36.9; O2SAT 98; BMI 28.3
== END 2023-12-14 15:09 | disposition home or self-care (01) ==
PROVIDERS: PCP Internal Medicine; Visit Provider Physician Assistant
DX: J01.00 Acute maxillary sinusitis, unspecified (principal); H66.003 Acute suppurative otitis media without spontaneous rupture of ear drum, bilateral
CPT/HCPCS: 99213

== ENCOUNTER 2023-12-15 18:07 | Emergency (ER) | payer OTHER, SELFPAY ==
--- NOTE | ~2023-12-15 | XR_ITS ---
EXAMINATION: XR CHEST CLINICAL INFORMATION: CP with inspiration COMPARISON: Chest x-ray November 21, 2023 TECHNIQUE: Frontal portable view of the chest was obtained. 9:08 PM FINDINGS: Small calcified granuloma in the right upper lobe. No acute abnormality. No acute airspace disease. No pulmonary vascular congestion. No pleural effusion or pneumothorax. XR/XR chest 1V IMPRESSION: No acute abnormality of chest.
[2023-12-15 18:13] VITALS: BP 132/94; PULSE 93; RESP 18; TEMP 37; O2SAT 98; BMI 28.0
--- NOTE | 2023-12-15 18:15 | ED.GENADULT ---
HPI - General Adult General Chief complaint: Upper Respiratory Symptoms Stated complaint: SOB Time Seen by Provider: 12/15/23 21:00 Related Data Previous Rx's ?Medication ?Instructions ?Recorded blood pressure monitor (Blood #1 ea 09/06/22 Pressure Kit) cane #1 ea 09/06/22 acetaminophen 500 mg tablet 1,000 mg (2 x 500 mg) PO TID PRN 10/07/22 pain #20 tabs fluticasone propionate 50 2 spray intranasal Q12H 30 days 10/30/22 mcg/actuation nasal #16 grams spray,suspension (Flonase Allergy Relief) cholecalciferol (vitamin D3) 50 50 mcg PO DAILY 90 days #90 tabs 03/28/23 mcg (2,000 unit) tablet underpads (Bed Underpads) #100 ea 03/28/23 walker #1 ea 03/28/23 galcanezumab-gnlm 120 mg/mL 120 mg subcut ONCE 30 days #1 mL 04/20/23 subcutaneous pen injector (Emgality Pen) magnesium oxide 400 mg (241.3 mg 400 mg PO BEDTIME 30 days #30 tabs 04/20/23 magnesium) tablet riboflavin (vitamin B2) 400 mg 400 mg PO DAILY 30 days #30 tabs 04/20/23 tablet fluticasone furoate 50 1 inh inhalation DAILY 30 days #30 06/22/23 mcg/actuation blister powder for ea inhalation (Arnuity Ellipta) hydrochlorothiazide 25 mg tablet 25 mg PO DAILY 30 days #30 tabs 06/26/23 albuterol sulfate 90 mcg/actuation 2 puff PO Q4H PRN bronchospasm 30 06/27/23 aerosol inhaler days #8.5 grams atorvastatin 20 mg tablet 20 mg PO BEDTIME 90 days #90 tabs 10/09/23 ipratropium 20 mcg-albuterol 100 1 puff PO QID 30 days #25 mL 10/18/23 mcg/actuation mist for inhalation (Combivent Respimat) fenofibrate 54 mg tablet 54 mg PO DAILY 90 days #90 tabs 10/24/23 potassium chloride 20 mEq 20 meq PO DAILY 30 days #30 tabs 10/28/23 tablet,extended release albuterol sulfate 2.5 mg/0.5 mL 5 mg inhalation Q4H PRN shortness 11/12/23 solution for nebulization of breath or wheezing #30 ea albuterol sulfate 90 mcg/actuation 2 puff inhalation Q4-6H PRN 11/12/23 aerosol inhaler shortness of breath or wheezing #6.7 grams fluticasone propionate 50 2 spray intranasal DAILY #16 grams 11/12/23 mcg/actuation nasal spray,suspension (Flonase Allergy Relief) meclizine 12.5 mg tablet 12.5 mg PO TID PRN dizziness #14 11/21/23 tabs clonazepam 0.5 mg tablet 0.5 mg PO BEDTIME PRN anxiety 30 11/23/23 days #60 tabs loratadine 10 mg tablet 10 mg PO DAILY PRN for allergies 12/01/23 30 days #30 tabs syeewhjget-clmuondrofkeo-oorebdok 1 cap PO Q4-6H PRN headache #10 12/02/23 50 mg-300 mg-40 mg capsule caps (Fioricet) tramadol 50 mg tablet 50 mg PO BID PRN severe pain 12/04/23 (scale score 7-10) 30 days #60 tabs amoxicillin 875 mg-potassium 1 tab PO Q12H #14 tabs 12/14/23 clavulanate 125 mg tablet Allergies Allergy/AdvReac Type Severity Reaction Status Date / Time amitriptyline Allergy Intermediate headache Verified 12/15/23 18:15 ibuprofen [From Motrin] Allergy Intermediate ITCHY RASH Verified 12/15/23 18:15 gabapentin AdvReac Intermediate vomiting Verified 12/15/23 18:15 PMFSH Past Medical History Medical History Acute maxillary sinusitis Otitis externa Hospital discharge follow-up Microscopic hematuria Physical exam Goiter Blurry vision Tobacco dependence Has daytime drowsiness Pulmonary nodules Moderate recurrent major depression Dyspnea Hand pain Skin lesion Leg pain, bilateral Dyslipidemia Epigastric pain Essential hypertension Cervical cancer screening GERD (gastroesophageal reflux disease) HTN (hypertension) Migraine Anxiety Depression Right lower quadrant pain Fibromyalgia Surgical History Previous section History of breast lump/mass excision History of lithotripsy H/O LEEP H/O tubal ligation Family History Family History Father Myocardial infarction Mother Lung cancer Brother Liver cancer Maternal Grandfather Stomach cancer Maternal Grandmother No problems noted. Social History Social History Housing: Apartment Alcohol intake: never Patient Tobacco Use Status: Current someday Tobacco user Tobacco use type: Cigarette Cigarettes Per Day: 3 Smoked in Last 30 Days: No e-Cigarette/Vaping Use: Never Used Second Hand Smoke Exposure: No Use of substances other than those prescribed or required for medical reasons: No Advance Directives: No Advance Directives Information Provided: No Do you have a plan to hurt others: No Plan service: No Current occupational status: disabled Gender identity: Female Cognitive needs: No Hearing needs: No Vision needs: No Physical Exam ED Vital Signs: Vital Signs - 24 hr 12/15/23 18:13 12/15/23 20:59 Temperature 98.6 F 98.6 F Pulse Rate 93 88 Respiratory Rate 18 18 Blood Pressure 132/94 H 136/96 H Pulse Oximetry 98 100 Oxygen Delivery Method Room Air Room Air BMI result Body Mass Index 28.0 Course Course Course Narrative: This is a Rapid Medical Examination (RME) performed by Mayda Sen PA-C in triage. Full HPI, ROS, assessment and treatment plan per primary provider in the Main ED. 52 yo female here for eval of dizziness, headache, shortness of breath and chest pain that began today. Was evaluated at [facility] yesterday for ear pain and face pain, prescribed amox for infection which she has been taking as prescribed. denies cough. well appearing in triage. Plan: labs, ekg, trop ordered Medications Administered Discontinued Medications Generic Name Dose Route Start Last Admin Trade Name Freq PRN Reason Stop Dose Admin Morphine Sulfate 1 mg 12/15/23 21:50 12/15/23 22:00 Morphine Sulfate 2 Mg/Ml Cartridge IM 12/15/23 21:51 1 mg ONCE ONE Administration Protocol Potassium Chloride 40 meq 12/15/23 21:01 12/15/23 21:14 Potassium Chloride Packet 20 Meq Packet PO 12/15/23 21:02 40 meq ONCE ONE Administration Medical Decision Making Lab Data 12/15/23 18:32 12/15/23 18:32 Labs: Lab Results 12/15/23 Range/Units 18:32 WBC 10.0 (4.8-10.8) X10*3/uL RBC 4.59 (4.20-5.50) X10*6/uL Hgb 12.4 (12.0-16.0) g/dl Hct 37.2 (37.0-47.0) % MCV 81.0 (80.0-98.0) fL MCH 27.0 (27.0-33.0) pg MCHC 33.3 (31.0-35.0) g/dl RDW 13.7 (11.0-16.0) % Plt Count 298 (160-400) X10*3/uL MPV 10.2 (9.4-12.3) fL Immature Gran % (Auto) 0.3 (0.0-0.4) % Neut % (Auto) 61.1 (45-73) % Lymph % (Auto) 29.4 (20-40) % [place] % (Auto) 7.6 (2-11) % Eos % (Auto) 1.0 (0-4) % Baso % (Auto) 0.6 (0-2) % Lymph # (Auto) 2.9 (1.2-4.9) X10*3/uL [place] # (Auto) 0.8 (0.1-1.2) X10*3/uL Eos # (Auto) 0.1 (0.0-0.4) X10*3/uL Baso # (Auto) 0.1 (0.0-0.2) X10*3/uL Abs Immat Gran (auto) 0.03 (0.00-0.03) X10*3/uL Absolute Neuts (auto) 6.1 (2.0-8.3) x10*3/uL Absolute Nucleated RBC 0.000 (0.0-0.012) X10*3/uL Nucleated RBC % (auto) 0.0 (0.0-0.2) /100WBC Sodium 143 (135-145) mmol/L Potassium 3.1 L (3.3-5.1) mmol/L Chloride 106 (96-108) mmol/L Carbon Dioxide 26 (22-29) mmol/L Anion Gap 14 (12-20) BUN 18 H (9-16) mg/dL Creatinine 0.91 (0.5-1.4) mg/dL Estim Creat Clear Calc 62.0 Estimated GFR > 60 Random Glucose 93 (60-115) mg/dL Calcium 9.7 (8.4-10.2) mg/dL Magnesium 1.9 (1.6-2.6) mg/dL Total Bilirubin 0.2 (0.0-1.0) mg/dL AST 15 (5-31) U/L ALT 15 (0-31) U/L Alkaline Phosphatase 110 (39-117) U/L Troponin I High Sens < 2.7 (<3.5-17.0) ng/L Total Protein 7.8 (6.5-8.0) g/dL Albumin 4.2 (3.5-5.0) g/dL Influenza Type A (PCR) NEGATIVE (Negative) Influenza Type B (PCR) NEGATIVE (Negative) RSV RNA Qual (PCR) NEGATIVE (Negative) SARS-CoV-2 RNA (RT-PCR) NEGATIVE (Negative) Discharge Plan Discharge Clinical Impression: Sinusitis Patient Disposition: Home, Self-Care Instructions: Sinusitis (ED) Additional Instructions: Continue taking your current antibiotics. Insert discharge Prescriptions: No Action (DME) blood pressure monitor [Blood Pressure Kit] Kit See Rx Instructions .ROUTE .MEDSUPPLY Qty: 1 0RF Rx Instructions: As directed (DME) cane Device See Rx Instructions .Route Qty: 1 0RF Rx Instructions: As directed fluticasone propionate [Flonase Allergy Relief] 50 mcg/actuation spray,suspension 2 spray intranasal Q12H 30 Days Qty: 16 0RF Rx Instructions: administer into each nostril (DME) walker Misc See Rx Instructions .Route Qty: 1 0RF Rx Instructions: To be use lifetime (DME) underpads [Bed Underpads] Pad See Rx Instructions .Route Qty: 100 0RF Rx Instructions: As directed Arnuity Ellipta 50 mcg/actuation blister with device 1 inh inhalation DAILY 30 Days Qty: 30 6RF hydrochlorothiazide 25 mg tablet 25 mg PO DAILY 30 Days Qty: 30 11RF albuterol sulfate 90 mcg/actuation HFA aerosol inhaler 2 puff PO Q4H PRN (Reason: bronchospasm) 30 Days Qty: 8.5 6RF atorvastatin 20 mg tablet 20 mg PO BEDTIME 90 Days Qty: 90 1RF Combivent Respimat 20-100 mcg/actuation mist 1 puff PO QID 30 Days Qty: 25 1RF Patient Comments: Pulmo given fenofibrate 54 mg tablet 54 mg PO DAILY 90 Days Qty: 90 1RF potassium chloride 20 mEq tablet extended release 20 meq PO DAILY 30 Days Qty: 30 2RF clonazepam 0.5 mg tablet 0.5 mg PO BEDTIME PRN (Reason: anxiety) 30 Days Qty: 60 1RF loratadine 10 mg tablet 10 mg PO DAILY PRN (Reason: for allergies) 30 Days Qty: 30 1RF qpzbmchtdt-cpwtcdzjbofto-jnph [Fioricet] 50-300-40 mg capsule 1 cap PO Q4-6H PRN (Reason: headache) Qty: 10 0RF tramadol 50 mg tablet 50 mg PO BID PRN (Reason: severe pain (scale score 7-10)) 30 Days Qty: 60 0RF acetaminophen 500 mg tablet 1,000 mg PO TID PRN (Reason: pain) Qty: 20 0RF albuterol sulfate 90 mcg/actuation HFA aerosol inhaler 2 puff inhalation Q4-6H PRN (Reason: shortness of breath or wheezing) Qty: 6.7 0RF fluticasone propionate [Flonase Allergy Relief] 50 mcg/actuation spray,suspension 2 spray intranasal DAILY Qty: 16 0RF Rx Instructions: administer into each nostril albuterol sulfate 2.5 mg/0.5 mL solution for nebulization 5 mg inhalation Q4H PRN (Reason: shortness of breath or wheezing) Qty: 30 0RF meclizine 12.5 mg tablet 12.5 mg PO TID PRN (Reason: dizziness) Qty: 14 0RF cholecalciferol (vitamin D3) 50 mcg (2,000 unit) tablet 50 mcg PO DAILY 90 Days Qty: 90 1RF amoxicillin-pot clavulanate 875-125 mg tablet 1 tab PO Q12H Qty: 14 0RF Emgality Pen 120 mg/mL pen injector 120 mg subcut ONCE 30 Days Qty: 1 6RF magnesium oxide 400 mg (241.3 mg magnesium) tablet 400 mg PO BEDTIME 30 Days Qty: 30 6RF Rx Instructions: may hold for loose stools riboflavin (vitamin B2) 400 mg tablet 400 mg PO DAILY 30 Days Qty: 30 6RF Print Language: Luxembourgish
--- NOTE | 2023-12-15 18:18 | ECG_ITS ---
Test Reason : CHEST PAIN Blood Pressure : / mmHG Vent. Rate : 095 BPM Atrial Rate : 095 BPM P-R Int : 140 ms QRS Dur : 074 ms QT Int : 356 ms P-R-T Axes : 043 014 021 degrees QTc Int : 447 ms Normal sinus rhythm Nonspecific ST abnormality Abnormal ECG When compared with ECG of 21-NOV-2023 11:32, No significant change was found Referred By: Carissa Sen Electronically Signed By:MARILU MANN MD
[2023-12-15 18:37] LABS: MANUAL DIFF FLAG NO
[2023-12-15 18:39] LABS: Basophils Absolute Auto 0.1 X10*3/uL (0.0-0.2); Basophils Percent Auto 0.6 % (0-2); Eosinophils Absolute Auto 0.1 X10*3/uL (0.0-0.4); Hematocrit 37.2 % (37.0-47.0); Hemoglobin 12.4 g/dl (12.0-16.0); Imm Gran Abs Auto 0.03 X10*3/uL (0.00-0.03); Imm Gran Pct Auto 0.3 % (0.0-0.4); Lymphocytes Absolute Auto 2.9 X10*3/uL (1.2-4.9); Lymphocytes Percent Auto 29.4 % (20-40); Mean Corpuscular HGB Conc 33.3 g/dl (31.0-35.0); Mean Platelet Volume 10.2 fL (9.4-12.3); Monocytes Absolute Auto 0.8 X10*3/uL (0.1-1.2); Monocytes Percent Auto 7.6 % (2-11); Neutrophils Absolute Auto 6.1 x10*3/uL (2.0-8.3); Neutrophils Percent Auto 61.1 % (45-73); Platelet Count 298 X10*3/uL (160-400); Red Blood Count 4.59 X10*6/uL (4.20-5.50); Red Cell Distribution Width 13.7 % (11.0-16.0)
[2023-12-15 18:59] LABS: Alanine Aminotransferase 15 U/L (0-31); Albumin Level 4.2 g/dL (3.5-5.0); Alkaline Phosphatase 110 U/L (39-117); Anion Gap 14 (12-20); Aspartate Amino Transferase 15 U/L (5-31); Bilirubin Total 0.2 mg/dL (0.0-1.0); Blood Urea Nitrogen 18 mg/dL (9-16); Calcium 9.7 mg/dL (8.4-10.2); Carbon Dioxide 26 mmol/L (22-29); Chloride 106 mmol/L (96-108); Estimated Glomerular Filt Rate > 60; Glucose Random 93 mg/dL (60-115); Magnesium 1.9 mg/dL (1.6-2.6); Potassium 3.1 mmol/L (3.3-5.1); Sodium 143 mmol/L (135-145); Total Protein 7.8 g/dL (6.5-8.0)
[2023-12-15 19:07] LABS: Troponin-I High Sensitivity < 2.7 ng/L (<3.5-17.0)
[2023-12-15 19:16] LABS: Influenza A PCR NEGATIVE (Negative); Influenza B PCR NEGATIVE (Negative); Resp Syncy Virus RNA Qual PCR NEGATIVE (Negative); SARS COV2 PCR INHOUSE NEGATIVE (Negative)
[2023-12-15 20:59] VITALS: BP 136/96; PULSE 88; RESP 18; TEMP 37; O2SAT 100
[2023-12-15] MEDS: Potassium Chloride Packet 20 MEQ PACKET 40 MEQ PO (21:14)
[2023-12-15] MEDS: Morphine Sulfate 2 MG/ML CARTRIDGE 1 MG IM (22:00)
--- NOTE | 2023-12-15 23:29 | PC.NURSE ---
pt left without discharge paperwork
== END 2023-12-15 23:30 | disposition home or self-care (01) ==
PROVIDERS: Physician Assistant Medical; Emergency Provider Emergency Medicine; PCP Internal Medicine
DX: J32.9 Chronic sinusitis, unspecified (principal); R06.02 Shortness of breath; I10 Essential (primary) hypertension; E78.5 Hyperlipidemia, unspecified; F17.210 Nicotine dependence, cigarettes, uncomplicated; Z03.818 Encounter for observation for suspected exposure to other biological agents ruled out; Z79.899 Other long term (current) drug therapy
CPT/HCPCS: 0241U; 71045; 80053; 83735; 84484; 85025; 93005; 96372; 99284; J2270

== ENCOUNTER → 2023-12-15 18:18 | Outpatient (BNV) | payer OTHER, SELFPAY | PROVIDERS: Emergency Provider Emergency Medicine; PCP Internal Medicine; Visit Provider Internal Medicine Cardiovascular Disease | DX: R07.9 Chest pain, unspecified (principal) | CPT/HCPCS: 93010 ==

== ENCOUNTER 2024-01-03 17:03 | Outpatient (AMB) | payer OTHER, SELFPAY ==
[2024-01-03 17:07] VITALS: BP 120/80; BMI 28.3
--- NOTE | 2024-01-03 17:07 | MHC.PC.OV ---
Vital Signs 01/03/24 17:07 Height 5 ft 1 in Weight 150 lb BMI 28.3 BP 120/80 Blood Pressure Location Lt brachial Position Sitting Intake Visit Reasons: dizziness Intake Note: Patient here for a follow up [employer] Required: No Accompanied by: Self / Same As Patient Allergies amitriptyline Allergy (Intermediate, Verified 01/03/24 17:12) headache ibuprofen [From Motrin] Allergy (Intermediate, Verified 01/03/24 17:12) ITCHY RASH gabapentin Adverse Reaction (Intermediate, Verified 01/03/24 17:12) vomiting Medication List - Last Reconciled 01/03/24 by Neyda Peres MD acetaminophen 1,000 mg (2 x 500 mg) PO TID PRN albuterol sulfate 90 mcg/actuation 2 puffs inhalation Q4-6H PRN albuterol sulfate 5 mg inhalation Q4H PRN albuterol sulfate 90 mcg/actuation 2 puffs PO Q4H PRN 30 days atorvastatin 20 mg PO BEDTIME 90 days blood pressure monitor (Blood Pressure Kit) As directed qbckgihsbb-tszpnfsorfcoo-fkyx 50-300-40 mg (Fioricet) 1 cap PO Q4-6H PRN cane As directed cholecalciferol (vitamin D3) 50 mcg PO DAILY 90 days clonazepam 0.5 mg PO BEDTIME PRN 30 days fenofibrate 54 mg PO DAILY 90 days fluticasone furoate 50 mcg/actuation (Arnuity Ellipta) 1 inh inhalation DAILY 30 days fluticasone propionate 50 mcg/actuation (Flonase Allergy Relief) 2 sprays intranasal DAILY fluticasone propionate 50 mcg/actuation (Flonase Allergy Relief) 2 sprays intranasal Q12H 30 days galcanezumab-gnlm (Emgality Pen) 120 mg subcut ONCE 30 days hydrochlorothiazide 25 mg PO DAILY 30 days ipratropium-albuterol 20-100 mcg/actuation (Combivent Respimat) 1 puff PO QID 30 days loratadine 10 mg PO DAILY PRN 30 days magnesium oxide 400 mg PO BEDTIME 30 days meclizine 12.5 mg PO TID PRN potassium chloride ER 20 mEq PO DAILY 30 days riboflavin (vitamin B2) 400 mg PO DAILY 30 days tramadol 50 mg PO BID PRN 30 days underpads (Bed Underpads) As directed walker To be use lifetime Tobacco use date assessed: 09/19/23 Dental Screening Dental Screen Date: 09/19/23 HPI HPI Comments History of Present Illness Details This is a 53-year-old female with hypertension and mild tramadol use disorder that complains of pain in left clavicle, cranial pain, abdominal pain and bloating and diffuse joint pain that has been present for years. She also has goiter and I will order ultrasound of the thyroid. No chest pain or shortness on breath. Patient has signed pain management contract today. She use tramadol for her low back pain due to lumbar degenerative disc disease. Urine toxicology was done patient is aware that she can not have any other controlled substance from anyone else. Also needs to bring the pills next time for pill count. Blood pressure stable. She does have hypokalemia and this will be monitor. [facility] Medical History (Updated 01/04/24 @ 11:00 by Neyda Peres MD) Acute maxillary sinusitis Otitis externa Hospital discharge follow-up Microscopic hematuria Physical exam Goiter Blurry vision Tobacco dependence Has daytime drowsiness Pulmonary nodules Moderate recurrent major depression Dyspnea Hand pain Skin lesion Leg pain, bilateral Dyslipidemia Epigastric pain Essential hypertension Cervical cancer screening GERD (gastroesophageal reflux disease) HTN (hypertension) Migraine Anxiety Depression Right lower quadrant pain Fibromyalgia Surgical History Previous section History of breast lump/mass excision History of lithotripsy H/O LEEP H/O tubal ligation Family History Father Myocardial infarction Mother Lung cancer Brother Liver cancer Maternal Grandfather Stomach cancer Maternal Grandmother No problems noted. Social History Housing: Apartment Alcohol intake: never Patient Tobacco Use Status: Current someday Tobacco user Tobacco use type: Cigarette Cigarettes Per Day: 3 e-Cigarette/Vaping Use: Never Used Second Hand Smoke Exposure: No service: No Current occupational status: disabled Gender identity: Female Cognitive needs: No Hearing needs: No Vision needs: No Female Reproductive History Menstrual Age of Menarche: 9 Questionnaire Thrive Questionnaire Date Thrive assessed: 06/20/22 JOHN-7 AMB Questionnaire JOHN-7 Date JOHN - 7 assessed: 09/19/23 Source: Developed by Drs. Sylvester Merlos, Eve Mcclelland, Joby King and colleagues, with an educational pili from [employer]. Review of Systems Const All systems reviewed & are unremarkable except as noted in HPI and below Card Denies chest pain at rest, Denies chest pain with activity, Denies edema, Denies irregular heart rhythm, Denies claudication, Denies dyspnea, Denies dyspnea on exertion, Denies orthopnea, Denies paroxysmal nocturnal dyspnea and Denies slow heart rate Resp Denies cough, Denies dyspnea and Denies dyspnea on exertion GI Reports abdominal pain and Reports bloating Musc Reports arthralgias Physical exam (Primary Care) Vital Signs: Last Vital Signs BP 120/80 01/03/24 17:07 BMI result Body Mass Index 28.3 BMI Assessment/Plan discussion: High BMI High, discussed plan: lifestyle, weight reduction and dietary Tobacco/Smoking Status: Tobacco use Status Tobacco use date assessed 09/19/23 01/03/24 17:11 Patient Tobacco Use Status Current someday Tobacco 01/03/24 17:11 Tobacco use type Cigarette 01/03/24 17:11 e-Cigarette/Vaping Use Never Used 01/03/24 17:11 Thrive Assessment: Date of Thrive Assessment Date Thrive assessed 06/20/22 01/03/24 17:11 Neck Thyroid: diffusely enlarged Resp Effort & Inspection: normal respiratory effort Auscultation: clear to auscultation bilaterally Cardio Jugular venous distension: no JVD Rate: regular rate Rhythm: regular rhythm Heart sounds: S1 normal heart sound present and S2 normal heart sound present Neuro General: no focal motor deficits Extrem General: Yes full ROM Assessment and Plan Assessment & Plan (1) Mild tramadol use disorder: Comment: Pain management contract signed 01/03/2024 and urine toxicology done. Code(s): F11.10 - Opioid abuse, uncomplicated Plan: Signed pain management contract today. Advised to use tramadol only as needed. (2) Goiter: Code(s): E04.9 - Nontoxic goiter, unspecified Plan: Ultrasound thyroid order. (3) Abdominal pain: Code(s): R10.9 - Unspecified abdominal pain Qualifiers: Abdominal location: generalized Qualified Code(s): R10.84 - Generalized abdominal pain Plan: Ultrasound of the abdomen ordered. (4) Pain of left clavicle: Code(s): M89.8X1 - Other specified disorders of bone, shoulder Plan: X-ray ordered. (5) Essential hypertension: Code(s): I10 - Essential (primary) hypertension Plan: Continue hydrochlorothiazide. Blood pressure goal is equal or less than 130/80. Orders: Orders XR skull min 4V 01/03/24 R51.9 - Headache, unspecified Drug Screen Urine 01/03/24 F11.10 - Opioid abuse, uncomplicated US thyroid 01/03/24 E04.9 - Nontoxic goiter, unspecified Lipid Panel 01/03/24 E78.5 - Hyperlipidemia, unspecified Vitamin B12 and Folate 01/03/24 E53.8 - Deficiency of other specified B group vitamins XR clavicle LT 01/03/24 M89.8X1 - Other specified disorders of bone, shoulder US abdomen complete 01/03/24 R10.9 - Unspecified abdominal pain Vitamin D 25-OH Total 01/03/24 E55.9 - Vitamin D deficiency, unspecified Comprehensive [place]. Panel Fast 01/03/24 R10.9 - Unspecified abdominal pain Medications: New clobetasol 0.05% 1 appl topical BID 30 grams 0RF 2 weeks Coding Level of Care Code Est Pt Level 4 (04847) Complex EM visit Add On G2211 Diagnoses Mild tramadol use disorder F11.10 Goiter E04.9 Generalized abdominal pain R10.84 Abdominal location: generalized Pain of left clavicle M89.8X1 Essential hypertension I10 Time Spent (min) 26
== END 2024-01-03 17:27 | disposition home or self-care (01) ==
PROVIDERS: PCP Internal Medicine; Visit Provider Internal Medicine
DX: E04.9 Nontoxic goiter, unspecified (principal); F11.10 Opioid abuse, uncomplicated; R10.84 Generalized abdominal pain; M89.8X1 Other specified disorders of bone, shoulder; I10 Essential (primary) hypertension
CPT/HCPCS: 99214; G2211

== ENCOUNTER 2024-01-05 13:58 | Emergency (ER) | payer OTHER, SELFPAY ==
--- NOTE | ~2024-01-05 | XR_ITS ---
EXAMINATION: XR CHEST CLINICAL INFORMATION: Chest pain. COMPARISON: Chest radiograph dated 12/15/2023. TECHNIQUE: 2 views of the chest were obtained. FINDINGS: The lungs are clear. The cardiomediastinal silhouette is normal in size. There is no pleural effusion or pneumothorax. No acute osseous abnormality. XR/XR chest 2V IMPRESSION: No acute cardiopulmonary findings.
--- NOTE | 2024-01-05 14:00 | ECG_ITS ---
Test Reason : CHEST PAIN Blood Pressure : / mmHG Vent. Rate : 085 BPM Atrial Rate : 085 BPM P-R Int : 134 ms QRS Dur : 070 ms QT Int : 356 ms P-R-T Axes : 044 013 009 degrees QTc Int : 423 ms Normal sinus rhythm Nonspecific ST abnormality Abnormal ECG When compared with ECG of 15-DEC-2023 18:23, No significant change was found Referred By: Generic ED Physician Electronically Signed By:MARILU MANN MD
[2024-01-05 14:12] VITALS: BP 148/85; PULSE 83; RESP 18; TEMP 37; O2SAT 98; BMI 28.6
--- NOTE | 2024-01-05 14:29 | ED_ITS ---
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 Patient reports for the last 5-7 days she has had back pain, headache, chest pain, shortness of breath, body aches, nausea, chills. Patient describes the back pain as radiating from her gluteus to her head. Worsened with movement. No radiation of pain into her legs. No associated numbness, tingling of lower extremities. No numbness in the groin. No bowel or bladder incontinence. Patient also complaining of chest pain which is constant and not worsened with movement, deep breathing. Shortness of breath comes and goes. No cough, fever. No exertional symptoms. No leg swelling or leg pain. Patient complaining of nausea with no vomiting. No abdominal pain, no diarrhea, no urinary symptoms. She denies any recent travel. No sick contacts. She is taking Tylenol and resting at home with continued symptoms. Related Data Previous Rx's ?Medication ?Instructions ?Recorded blood pressure monitor (Blood #1 ea 09/06/22 Pressure Kit) cane #1 ea 09/06/22 acetaminophen 500 mg tablet 1,000 mg (2 x 500 mg) PO TID PRN 10/07/22 pain #20 tabs fluticasone propionate 50 2 spray intranasal Q12H 30 days 10/30/22 mcg/actuation nasal #16 grams spray,suspension (Flonase Allergy Relief) cholecalciferol (vitamin D3) 50 50 mcg PO DAILY 90 days #90 tabs 03/28/23 mcg (2,000 unit) tablet underpads (Bed Underpads) #100 ea 03/28/23 walker #1 ea 03/28/23 galcanezumab-gnlm 120 mg/mL 120 mg subcut ONCE 30 days #1 mL 04/20/23 subcutaneous pen injector (Emgality Pen) magnesium oxide 400 mg (241.3 mg 400 mg PO BEDTIME 30 days #30 tabs 04/20/23 magnesium) tablet riboflavin (vitamin B2) 400 mg 400 mg PO DAILY 30 days #30 tabs 04/20/23 tablet fluticasone furoate 50 1 inh inhalation DAILY 30 days #30 06/22/23 mcg/actuation blister powder for ea inhalation (Arnuity Ellipta) hydrochlorothiazide 25 mg tablet 25 mg PO DAILY 30 days #30 tabs 06/26/23 albuterol sulfate 90 mcg/actuation 2 puff PO Q4H PRN bronchospasm 30 06/27/23 aerosol inhaler days #8.5 grams atorvastatin 20 mg tablet 20 mg PO BEDTIME 90 days #90 tabs 10/09/23 ipratropium 20 mcg-albuterol 100 1 puff PO QID 30 days #25 mL 10/18/23 mcg/actuation mist for inhalation (Combivent Respimat) fenofibrate 54 mg tablet 54 mg PO DAILY 90 days #90 tabs 10/24/23 potassium chloride 20 mEq 20 meq PO DAILY 30 days #30 tabs 10/28/23 tablet,extended release albuterol sulfate 2.5 mg/0.5 mL 5 mg inhalation Q4H PRN shortness 11/12/23 solution for nebulization of breath or wheezing #30 ea albuterol sulfate 90 mcg/actuation 2 puff inhalation Q4-6H PRN 11/12/23 aerosol inhaler shortness of breath or wheezing #6.7 grams fluticasone propionate 50 2 spray intranasal DAILY #16 grams 11/12/23 mcg/actuation nasal spray,suspension (Flonase Allergy Relief) meclizine 12.5 mg tablet 12.5 mg PO TID PRN dizziness #14 11/21/23 tabs clonazepam 0.5 mg tablet 0.5 mg PO BEDTIME PRN anxiety 30 11/23/23 days #60 tabs loratadine 10 mg tablet 10 mg PO DAILY PRN for allergies 12/01/23 30 days #30 tabs dguxekyzfz-gfbmgxqpixsvh-ibqawvyx 1 cap PO Q4-6H PRN headache #10 12/02/23 50 mg-300 mg-40 mg capsule caps (Fioricet) tramadol 50 mg tablet 50 mg PO BID PRN severe pain 12/04/23 (scale score 7-10) 30 days #60 tabs clobetasol 0.05 % topical cream 1 appl topical BID 2 weeks #30 01/03/24 grams cyclobenzaprine 10 mg tablet 10 mg PO TID PRN muscle spasm #15 01/05/24 tabs lidocaine 5 % topical patch 1 patch topical DAILY #30 ea 01/05/24 (Lidoderm) Allergies Allergy/AdvReac Type Severity Reaction Status Date / Time amitriptyline Allergy Intermediate headache Verified 01/05/24 14:19 ibuprofen [From Motrin] Allergy Intermediate ITCHY RASH Verified 01/05/24 14:19 gabapentin AdvReac Intermediate vomiting Verified 01/05/24 14:19 Review of Systems 2 Review of Systems: Yes all other systems are reviewed and are negative Constitutional: Constitutional: Reports no additional constitutional complaints, Reports body ache(s), Reports chills, Denies fever(s), Reports headache(s) and Denies weakness Eyes: Eyes: Reports no additional eye complaints and Denies change in vision ENT: Reports system reviewed and no additional complaints, except as documented, Denies dizziness, Reports headache(s), Denies nasal congestion, Denies nasal discharge and Denies neck pain Cardiovascular: Cardiovascular: Reports no additional cardiovascular complaints, Reports chest pain, Denies leg edema and Reports dyspnea Respiratory: Respiratory: Reports no additional respiratory complaints, Denies cough and Reports dyspnea Gastrointestinal: Gastrointestinal: Reports no additional gastrointestinal complaints, Denies abdominal pain, Denies diarrhea, Reports nausea and Denies vomiting Genitourinary: Genitourinary: Reports no additional female genitourinary complaints and Denies urinary incontinence Musculoskeletal: Musculoskeletal: Reports no additional musculoskeletal complaints, Reports back pain, Denies arthralgias, Denies joint swelling, Denies neck pain, Denies numbness and Denies tingling Integumentary/Breasts: Skin/Breast: Reports system reviewed and no additional complaints, except as docu and Denies rash Neurologic: Reports system reviewed and no additional complaints, except as documented, Denies Abnormal speech present, Denies dizziness, Reports headache(s), Denies numbness, Denies tingling and Denies weakness [facility] Past Medical History Attestation statement: The following information was validated with the patient. Source: old records reviewed and nursing notes reviewed Medical History Acute maxillary sinusitis Otitis externa Hospital discharge follow-up Microscopic hematuria Physical exam Goiter Blurry vision Tobacco dependence Has daytime drowsiness Pulmonary nodules Moderate recurrent major depression Dyspnea Hand pain Skin lesion Leg pain, bilateral Dyslipidemia Epigastric pain Essential hypertension Cervical cancer screening GERD (gastroesophageal reflux disease) HTN (hypertension) Migraine Anxiety Depression Right lower quadrant pain Fibromyalgia Surgical History Previous section History of breast lump/mass excision History of lithotripsy H/O LEEP H/O tubal ligation Family History Family History Father Myocardial infarction Mother Lung cancer Brother Liver cancer Maternal Grandfather Stomach cancer Maternal Grandmother No problems noted. Social History Social History Housing: Apartment Alcohol intake: never Patient Tobacco Use Status: Current someday Tobacco user Tobacco use type: Cigarette Cigarettes Per Day: 3 e-Cigarette/Vaping Use: Never Used Second Hand Smoke Exposure: No Advance Directives: No Advance Directives Information Provided: No service: No Current occupational status: disabled Gender identity: Female Cognitive needs: No Hearing needs: No Vision needs: No Physical Exam ED Vital Signs: Vital Signs - 24 hr 01/05/24 14:12 01/05/24 16:00 01/05/24 16:34 Temperature 98.6 F 98.2 F 98.2 F Pulse Rate 83 70 70 Respiratory Rate 18 19 19 Blood Pressure 148/85 H 127/79 127/79 Pulse Oximetry 98 99 99 Oxygen Delivery Method Room Air Room Air Room Air BMI result Body Mass Index 28.6 Const General: cooperative, healthy appearing, comfortable and no acute distress Orientation/consciousness: patient oriented x3 Limitations: no limitations HENMT Head: Yes normal to inspection Ears: hearing grossly normal bilaterally and TM's normal bilaterally General nose exam: Normal external nose present Face and sinus: Yes normal facial exam Mouth: Normal oral and palatal mucosa present Throat: Yes posterior oropharynx normal, Yes tonsils normal and Yes uvula midline Eyes General: appearance normal, both eyes and all related structures Pupils: Equal, round and reactive pupils present Neck Neck: Yes normal visual inspection, Yes full ROM, Yes no lymphadenopathy and Yes no meningeal signs Chest Chest palpation & inspection: normal inspection of the chest Resp Effort & Inspection: normal respiratory effort Auscultation: clear to auscultation bilaterally Cardio Rate: regular rate Rhythm: regular rhythm Peripheral pulses: Peripheral pulses 2+ throughout GI Inspection: Yes normal to inspection Palpation (GI): Soft to palpation and nontender Auscultation: normal bowel sounds Back/Spine/Pelvis Other: Mild tenderness to lumbar soft tissue bilaterally with no midline tenderness, step-offs or deformities. Pain is worsened with flexion extension lumbar spine Thoracic/Lumbar Spine: thoracic and lumbar spine normal to inspection Skin General skin exam: no rashes or lesions noted Neuro General: patient oriented x3, no meningeal signs, no focal motor deficits and normal sensation to monofilament Cranial nerves: Yes Equal, round and reactive pupils present Cognition (Neuro): normal cognition Speech: No Abnormal speech present Gait exam (Neuro): Normal gait present Motor exam (neuro): 5/5 motor strength present throughout Deep tendon reflexes (DTR's): Right patellar reflex intensity grade: 2+ and Left patellar reflex intensity grade: 2+ Extrem General: Yes normal to inspection Course Course Course Narrative: RME performed by Belle Mckeon PA-C. Patient is a 53 year old assigned female at presenting to the emergency department with low back pain and chest pain. Detailed physical exam and review of systems are deferred to the maintenance assistant. EKG, labs, imaging, and swabs ordered. Patient placed back in the waiting room pending room availability and results. Reevaluation(s) Reevaluation #1: Labs, urine, EKG, chest x-ray, viral testing all unremarkable. ? Viral syndrome. Will discharge patient home with supportive care. Reviewed worrisome signs and symptoms of when to return to the emergency room. Comfortable plan for discharge home. Medical Decision Making Medical Decision Making MDM Narrative: 53-year-old female with a history of fibromyalgia, migraines, GERD, hypertension presents the ER with multiple complaints. Patient reports for the last 5-7 days she has had back pain, headache, chest pain, shortness of breath, body aches, nausea, chills. Patient describes the back pain as radiating from her gluteus to her head. Worsened with movement. No radiation of pain into her legs. No associated numbness, tingling of lower extremities. No numbness in the groin. No bowel or bladder incontinence. Patient also complaining of chest pain which is constant and not worsened with movement, deep breathing. Shortness of breath comes and goes. No cough, fever. No exertional symptoms. No leg swelling or leg pain. Patient complaining of nausea with no vomiting. No abdominal pain, no diarrhea, no urinary symptoms. She denies any recent travel. No sick contacts. She is taking Tylenol and resting at home with continued symptoms. Patient has some tenderness to lumbar soft tissues bilaterally with no temp midline tenderness, step-offs or deformities. Normal neuro exam with no focal deficits or red flag symptoms. No other overt in her findings on exam. Vitals are stable Will send labs, EKG, chest x-ray, urine testing, viral testing Differential Diagnosis Differential Diagnoses: The differential diagnosis associated with the presentation includes Viral syndrome Low suspicion for PE, ACS, aortic dissection-due to gradual onset of symptoms, nonischemic EKG and negative troponin, no hypoxia, no tachypnea, no tachycardia, no clinical findings concerning for DVT Low suspicion for cauda equina, epidural abscess, malignancy with no neurological deficits or red flag symptoms Admission/Observation Consideration of admission/observation: Escalation of care including admission/observation considered Lab Data MDM Lab Attestation statement: I reviewed the patient's lab results. 01/05/24 14:59 01/05/24 14:59 Labs: Lab Results 01/05/24 Range/Units 14:59 WBC 9.6 (4.8-10.8) X10*3/uL RBC 4.69 (4.20-5.50) X10*6/uL Hgb 12.6 (12.0-16.0) g/dl Hct 38.1 (37.0-47.0) % MCV 81.2 (80.0-98.0) fL MCH 26.9 L (27.0-33.0) pg MCHC 33.1 (31.0-35.0) g/dl RDW 14.7 (11.0-16.0) % Plt Count 289 (160-400) X10*3/uL MPV 9.9 (9.4-12.3) fL Immature Gran % (Auto) 0.4 (0.0-0.4) % Neut % (Auto) 56.9 (45-73) % Lymph % (Auto) 34.6 (20-40) % [place] % (Auto) 5.4 (2-11) % Eos % (Auto) 1.8 (0-4) % Baso % (Auto) 0.9 (0-2) % Lymph # (Auto) 3.3 (1.2-4.9) X10*3/uL [place] # (Auto) 0.5 (0.1-1.2) X10*3/uL Eos # (Auto) 0.2 (0.0-0.4) X10*3/uL Baso # (Auto) 0.1 (0.0-0.2) X10*3/uL Abs Immat Gran (auto) 0.04 H (0.00-0.03) X10*3/uL Absolute Neuts (auto) 5.5 (2.0-8.3) x10*3/uL Absolute Nucleated RBC 0.000 (0.0-0.012) X10*3/uL Nucleated RBC % (auto) 0.0 (0.0-0.2) /100WBC Sodium 141 (135-145) mmol/L Potassium 3.3 (3.3-5.1) mmol/L Chloride 104 (96-108) mmol/L Carbon Dioxide 24 (22-29) mmol/L Anion Gap 16 (12-20) BUN 19 H (9-16) mg/dL Creatinine 0.91 (0.5-1.4) mg/dL Estim Creat Clear Calc 61.9 Estimated GFR > 60 Random Glucose 104 (60-115) mg/dL Calcium 9.5 (8.4-10.2) mg/dL Magnesium 1.9 (1.6-2.6) mg/dL Total Bilirubin 0.4 (0.0-1.0) mg/dL AST 18 (5-31) U/L ALT 18 (0-31) U/L Alkaline Phosphatase 104 (39-117) U/L Troponin I High Sens < 2.7 (<3.5-17.0) ng/L Total Protein 7.2 (6.5-8.0) g/dL Albumin 4.1 (3.5-5.0) g/dL Urine Color Yellow Urine Appearance Clear Urine pH 7.0 (5.0-9.0) Ur Specific [place] 1.015 (1.005-1.025) Urine Protein Negative (Neg-Trace) mg/dL Urine Glucose (UA) Negative (Negative) mg/dL Urine Ketones Negative (Negative) mg/dL Urine Blood Trace H (Negative) Urine Nitrite Negative (Negative) Ur Leukocyte Esterase Negative (Negative) Urine RBC 3-5 H (0-2) /HPF Urine WBC 0-5 (0-5) /HPF Ur Squamous Epith Cells 0-2 (0-2) /HPF Urine Bacteria None Seen (None Seen) Hyaline Casts 0-2 (0-2) /LPF Influenza Type A (PCR) NEGATIVE (Negative) Influenza Type B (PCR) NEGATIVE (Negative) RSV RNA Qual (PCR) NEGATIVE (Negative) SARS-CoV-2 RNA (RT-PCR) NEGATIVE (Negative) Independent Interpretation I performed an independent interpretation of an: EKG and Plain X-Ray Interpretation: I independently reviewed the x-ray and agree with the radiology report I independently viewed the EKG which shows normal sinus rhythm with a rate 85, normal WI, normal QRS, normal QT Radiology Impression Discussion of test interpretation with radiology: I have reviewed the radiologist's reading. Radiologist Impression: [place] [id number] XRay Report Signed Patient: Peace Urias MR#: [id number] : 1970 Acct:[id number] Age/Sex: 53 / F ADM Date: 01/05/24 Loc: .ED Attending Dr: Ordering Physician: Belle Mckeon Date of Service: 01/05/24 Procedure(s): XR chest 2V Accession Number(s): [id number] cc: Belle Mckeon; Neyda Foster MD~ EXAMINATION: XR CHEST CLINICAL INFORMATION: Chest pain. COMPARISON: Chest radiograph dated 12/15/2023. TECHNIQUE: 2 views of the chest were obtained. FINDINGS: The lungs are clear. The cardiomediastinal silhouette is normal in size. There is no pleural effusion or pneumothorax. No acute osseous abnormality. XR/XR chest 2V IMPRESSION: No acute cardiopulmonary findings. Discharge Plan Discharge Clinical Impression: Acute viral syndrome Patient Disposition: Home, Self-Care Instructions: Viral Syndrome (ED) Additional Instructions: Your labs are reassuring. Your chest x-ray shows no signs of infection. Your urine is negative for infection. Your testing for flu, COVID, RSV are negative You may take the medications as prescribed Please follow up with her primary care doctor next week for any continued symptoms. Please return for any worsening symptoms Prescriptions: New lidocaine [Lidoderm] 5 % adhesive patch,medicated 1 patch topical DAILY Qty: 30 0RF Rx Instructions: leave on most painful area for up to 12 hrs cyclobenzaprine 10 mg tablet 10 mg PO TID PRN (Reason: muscle spasm) Qty: 15 0RF No Action (DME) blood pressure monitor [Blood Pressure Kit] Kit See Rx Instructions .ROUTE .MEDSUPPLY Qty: 1 0RF Rx Instructions: As directed (DME) cane Device See Rx Instructions .Route Qty: 1 0RF Rx Instructions: As directed fluticasone propionate [Flonase Allergy Relief] 50 mcg/actuation spray,suspension 2 spray intranasal Q12H 30 Days Qty: 16 0RF Rx Instructions: administer into each nostril (DME) walker Misc See Rx Instructions .Route Qty: 1 0RF Rx Instructions: To be use lifetime (DME) underpads [Bed Underpads] Pad See Rx Instructions .Route Qty: 100 0RF Rx Instructions: As directed Arnuity Ellipta 50 mcg/actuation blister with device 1 inh inhalation DAILY 30 Days Qty: 30 6RF hydrochlorothiazide 25 mg tablet 25 mg PO DAILY 30 Days Qty: 30 11RF albuterol sulfate 90 mcg/actuation HFA aerosol inhaler 2 puff PO Q4H PRN (Reason: bronchospasm) 30 Days Qty: 8.5 6RF atorvastatin 20 mg tablet 20 mg PO BEDTIME 90 Days Qty: 90 1RF Combivent Respimat 20-100 mcg/actuation mist 1 puff PO QID 30 Days Qty: 25 1RF Patient Comments: Pulmo given fenofibrate 54 mg tablet 54 mg PO DAILY 90 Days Qty: 90 1RF potassium chloride 20 mEq tablet extended release 20 meq PO DAILY 30 Days Qty: 30 2RF clonazepam 0.5 mg tablet 0.5 mg PO BEDTIME PRN (Reason: anxiety) 30 Days Qty: 60 1RF loratadine 10 mg tablet 10 mg PO DAILY PRN (Reason: for allergies) 30 Days Qty: 30 1RF nvtqgtolef-ayflrzxjulxak-vtpg [Fioricet] 50-300-40 mg capsule 1 cap PO Q4-6H PRN (Reason: headache) Qty: 10 0RF tramadol 50 mg tablet 50 mg PO BID PRN (Reason: severe pain (scale score 7-10)) 30 Days Qty: 60 0RF acetaminophen 500 mg tablet 1,000 mg PO TID PRN (Reason: pain) Qty: 20 0RF albuterol sulfate 90 mcg/actuation HFA aerosol inhaler 2 puff inhalation Q4-6H PRN (Reason: shortness of breath or wheezing) Qty: 6.7 0RF fluticasone propionate [Flonase Allergy Relief] 50 mcg/actuation spray,suspension 2 spray intranasal DAILY Qty: 16 0RF Rx Instructions: administer into each nostril albuterol sulfate 2.5 mg/0.5 mL solution for nebulization 5 mg inhalation Q4H PRN (Reason: shortness of breath or wheezing) Qty: 30 0RF meclizine 12.5 mg tablet 12.5 mg PO TID PRN (Reason: dizziness) Qty: 14 0RF cholecalciferol (vitamin D3) 50 mcg (2,000 unit) tablet 50 mcg PO DAILY 90 Days Qty: 90 1RF clobetasol 0.05 % cream 1 appl topical BID 14 Days Qty: 30 0RF Emgality Pen 120 mg/mL pen injector 120 mg subcut ONCE 30 Days Qty: 1 6RF magnesium oxide 400 mg (241.3 mg magnesium) tablet 400 mg PO BEDTIME 30 Days Qty: 30 6RF Rx Instructions: may hold for loose stools riboflavin (vitamin B2) 400 mg tablet 400 mg PO DAILY 30 Days Qty: 30 6RF Referrals: Neyda Foster MD [Primary Care Provider] - 1 week Interventions: ED Discharge Assessment Last Done: 01/05/24 16:34 Discharge Date/Time: 01/05/24 16:35 Print Language: Chinese
[2024-01-05 15:04] LABS: MANUAL DIFF FLAG NO
[2024-01-05 15:05] LABS: Basophils Absolute Auto 0.1 X10*3/uL (0.0-0.2); Basophils Percent Auto 0.9 % (0-2); Eosinophils Absolute Auto 0.2 X10*3/uL (0.0-0.4); Eosinophils Percent Auto 1.8 % (0-4); Hematocrit 38.1 % (37.0-47.0); Hemoglobin 12.6 g/dl (12.0-16.0); Imm Gran Abs Auto 0.04 X10*3/uL (0.00-0.03); Imm Gran Pct Auto 0.4 % (0.0-0.4); Lymphocytes Absolute Auto 3.3 X10*3/uL (1.2-4.9); Lymphocytes Percent Auto 34.6 % (20-40); Mean Corpuscular HGB Conc 33.1 g/dl (31.0-35.0); Mean Corpuscular Hemoglobin 26.9 pg (27.0-33.0); Mean Corpuscular Volume 81.2 fL (80.0-98.0); Mean Platelet Volume 9.9 fL (9.4-12.3); Monocytes Absolute Auto 0.5 X10*3/uL (0.1-1.2); Monocytes Percent Auto 5.4 % (2-11); Neutrophils Absolute Auto 5.5 x10*3/uL (2.0-8.3); Neutrophils Percent Auto 56.9 % (45-73); Platelet Count 289 X10*3/uL (160-400); Red Blood Count 4.69 X10*6/uL (4.20-5.50); Red Cell Distribution Width 14.7 % (11.0-16.0); White Blood Count 9.6 X10*3/uL (4.8-10.8)
[2024-01-05 15:07] LABS: Appearance Urine Clear; Color Urine Yellow; Glucose Urine UA Negative (Negative); Leukocyte Esterase Urine Negative (Negative); Nitrite Urine Negative (Negative); Specific Gravity - Urine 1.015 (1.005-1.025); UMIC TRIGGER UACC YES; Urine Blood Trace (Negative); Urine Ketones Negative (Negative); Urine Protein Negative (Neg-Trace)
[2024-01-05 15:12] LABS: Bacteria Urine None Seen (None Seen); Hyaline Casts Urine 0-2 /LPF (0-2); Squamous Epithelial Cell Urine 0-2 /HPF (0-2); WBC Urine 0-5 /HPF (0-5)
[2024-01-05 15:26] LABS: Alanine Aminotransferase 18 U/L (0-31); Albumin Level 4.1 g/dL (3.5-5.0); Alkaline Phosphatase 104 U/L (39-117); Anion Gap 16 (12-20); Aspartate Amino Transferase 18 U/L (5-31); Bilirubin Total 0.4 mg/dL (0.0-1.0); Blood Urea Nitrogen 19 mg/dL (9-16); Calcium 9.5 mg/dL (8.4-10.2); Carbon Dioxide 24 mmol/L (22-29); Chloride 104 mmol/L (96-108); Creatinine Clr Calc Pharmacy 61.9; Estimated Glomerular Filt Rate > 60; Glucose Random 104 mg/dL (60-115); Magnesium 1.9 mg/dL (1.6-2.6); Potassium 3.3 mmol/L (3.3-5.1); Sodium 141 mmol/L (135-145); Total Protein 7.2 g/dL (6.5-8.0)
[2024-01-05 15:42] LABS: Troponin-I High Sensitivity < 2.7 ng/L (<3.5-17.0)
[2024-01-05 15:47] LABS: Influenza A PCR NEGATIVE (Negative); Influenza B PCR NEGATIVE (Negative); Resp Syncy Virus RNA Qual PCR NEGATIVE (Negative); SARS COV2 PCR INHOUSE NEGATIVE (Negative)
[2024-01-05 16:00] VITALS: BP 127/79; PULSE 70; RESP 19; TEMP 36.8; O2SAT 99
[2024-01-05 16:34] VITALS: BP 127/79; PULSE 70; RESP 19; TEMP 36.8; O2SAT 99
== END 2024-01-05 16:35 | disposition home or self-care (01) ==
PROVIDERS: Physician Assistant Medical; Emergency Provider Emergency Medicine; PCP Internal Medicine
DX: B34.9 Viral infection, unspecified (principal); R07.9 Chest pain, unspecified; M54.50 Low back pain, unspecified; Z03.818 Encounter for observation for suspected exposure to other biological agents ruled out; R06.02 Shortness of breath; R51.9 Headache, unspecified
CPT/HCPCS: 0241U; 71046; 80053; 81001; 83735; 84484; 85025; 93005; 99283; 99284

== ENCOUNTER → 2024-01-05 14:00 | Outpatient (BNV) | payer OTHER, SELFPAY | PROVIDERS: Emergency Provider Emergency Medicine; PCP Internal Medicine; Visit Provider Internal Medicine Cardiovascular Disease | DX: R94.31 Abnormal electrocardiogram [ECG] [EKG] (principal) | CPT/HCPCS: 93010 ==

== ENCOUNTER 2024-02-01 14:53 | Emergency (ER) | payer OTHER, SELFPAY ==
[2024-02-01 14:55] VITALS: BP 122/85; PULSE 98; RESP 18; TEMP 36.1; O2SAT 97; BMI 28.3
--- NOTE | 2024-02-01 14:55 | ED.SOB ---
HPI - SOB/Dyspnea General Chief Complaint: Allergic Reaction Stated Complaint: SOB, Itchiness Related Data Previous Rx's ?Medication ?Instructions ?Recorded blood pressure monitor (Blood #1 ea 09/06/22 Pressure Kit) cane #1 ea 09/06/22 acetaminophen 500 mg tablet 1,000 mg (2 x 500 mg) PO TID PRN 10/07/22 pain #20 tabs fluticasone propionate 50 2 spray intranasal Q12H 30 days 10/30/22 mcg/actuation nasal #16 grams spray,suspension (Flonase Allergy Relief) cholecalciferol (vitamin D3) 50 50 mcg PO DAILY 90 days #90 tabs 03/28/23 mcg (2,000 unit) tablet underpads (Bed Underpads) #100 ea 03/28/23 walker #1 ea 03/28/23 galcanezumab-gnlm 120 mg/mL 120 mg subcut ONCE 30 days #1 mL 04/20/23 subcutaneous pen injector (Emgality Pen) magnesium oxide 400 mg (241.3 mg 400 mg PO BEDTIME 30 days #30 tabs 04/20/23 magnesium) tablet riboflavin (vitamin B2) 400 mg 400 mg PO DAILY 30 days #30 tabs 04/20/23 tablet fluticasone furoate 50 1 inh inhalation DAILY 30 days #30 06/22/23 mcg/actuation blister powder for ea inhalation (Arnuity Ellipta) hydrochlorothiazide 25 mg tablet 25 mg PO DAILY 30 days #30 tabs 06/26/23 albuterol sulfate 90 mcg/actuation 2 puff PO Q4H PRN bronchospasm 30 06/27/23 aerosol inhaler days #8.5 grams atorvastatin 20 mg tablet 20 mg PO BEDTIME 90 days #90 tabs 10/09/23 ipratropium 20 mcg-albuterol 100 1 puff PO QID 30 days #25 mL 10/18/23 mcg/actuation mist for inhalation (Combivent Respimat) fenofibrate 54 mg tablet 54 mg PO DAILY 90 days #90 tabs 10/24/23 potassium chloride 20 mEq 20 meq PO DAILY 30 days #30 tabs 10/28/23 tablet,extended release albuterol sulfate 2.5 mg/0.5 mL 5 mg inhalation Q4H PRN shortness 11/12/23 solution for nebulization of breath or wheezing #30 ea albuterol sulfate 90 mcg/actuation 2 puff inhalation Q4-6H PRN 11/12/23 aerosol inhaler shortness of breath or wheezing #6.7 grams fluticasone propionate 50 2 spray intranasal DAILY #16 grams 11/12/23 mcg/actuation nasal spray,suspension (Flonase Allergy Relief) meclizine 12.5 mg tablet 12.5 mg PO TID PRN dizziness #14 11/21/23 tabs loratadine 10 mg tablet 10 mg PO DAILY PRN for allergies 12/01/23 30 days #30 tabs yvxppfbgfd-dalljnjsxiwzs-rodwrnif 1 cap PO Q4-6H PRN headache #10 12/02/23 50 mg-300 mg-40 mg capsule caps (Fioricet) clobetasol 0.05 % topical cream 1 appl topical BID 2 weeks #30 01/03/24 grams cyclobenzaprine 10 mg tablet 10 mg PO TID PRN muscle spasm #15 01/05/24 tabs lidocaine 5 % topical patch 1 patch topical DAILY #30 ea 01/05/24 (Lidoderm) tramadol 50 mg tablet 50 mg PO BID PRN severe pain 01/07/24 (scale score 7-10) 30 days #60 tabs naloxone 10 mg/0.4 mL 2 mg (0.08 mL) subcut Q3M 30 days 01/09/24 injection,auto-injector #4 mL clonazepam 0.5 mg tablet 0.5 mg PO BEDTIME PRN anxiety 30 01/21/24 days #60 tabs Allergies Allergy/AdvReac Type Severity Reaction Status Date / Time amitriptyline Allergy Intermediate headache Verified 02/01/24 14:58 ibuprofen [From Motrin] Allergy Intermediate ITCHY RASH Verified 02/01/24 14:58 gabapentin AdvReac Intermediate vomiting Verified 02/01/24 14:58 PMF Past Medical History Medical History Acute maxillary sinusitis Otitis externa Hospital discharge follow-up Microscopic hematuria Physical exam Goiter Blurry vision Tobacco dependence Has daytime drowsiness Pulmonary nodules Moderate recurrent major depression Dyspnea Hand pain Skin lesion Leg pain, bilateral Dyslipidemia Epigastric pain Essential hypertension Cervical cancer screening GERD (gastroesophageal reflux disease) HTN (hypertension) Migraine Anxiety Depression Right lower quadrant pain Fibromyalgia Surgical History Previous section History of breast lump/mass excision History of lithotripsy H/O LEEP H/O tubal ligation Family History Family History Father Myocardial infarction Mother Lung cancer Brother Liver cancer Maternal Grandfather Stomach cancer Maternal Grandmother No problems noted. Social History Social History Housing: Apartment Alcohol intake: never Patient Tobacco Use Status: Current someday Tobacco user Tobacco use type: Cigarette Cigarettes Per Day: 3 e-Cigarette/Vaping Use: Never Used Second Hand Smoke Exposure: No Advance Directives: No Advance Directives Information Provided: No Do you have a plan to hurt others: No Plan service: No Current occupational status: disabled Gender identity: Female Cognitive needs: No Hearing needs: No Vision needs: No Physical Exam Vital Signs: Vital Signs: Last Vital Signs Temp 97.0 F 02/01/24 14:55 Pulse 98 02/01/24 14:55 Resp 18 02/01/24 14:55 BP 122/85 02/01/24 14:55 Pulse Ox 97 02/01/24 14:55 O2 Del Method Room Air 02/01/24 14:55 BMI result Body Mass Index 28.3 Course Course Course Narrative: This is a Rapid Medical Exam performed in triage by Crissy Yang PA-C. Full HPI, ROS and PE to be performed by primary ED provider. 53 year-old F w/ PMHx anxiety, polyarthralgia, TMJ, goiter, fibromyalgia presenting to the ED c/o rash, pruritus, & SOB s/p visiting boyfriend with cats. Took Claritin yesterday which helped but it did not help today. Has known allergy to cats. PE: Talking in complete sentences, uvula midline, no respiratory distress. No appreciable diffuse rash. + erythematous plaque to RUE Plan: Benadryl, pepcid, Solu-Medrol Discharge Plan Discharge Clinical Impression: Allergy Patient Disposition: Left W/O Completing Treatment Prescriptions: No Action (DME) blood pressure monitor [Blood Pressure Kit] Kit See Rx Instructions .ROUTE .MEDSUPPLY Qty: 1 0RF Rx Instructions: As directed (DME) cane Device See Rx Instructions .Route Qty: 1 0RF Rx Instructions: As directed fluticasone propionate [Flonase Allergy Relief] 50 mcg/actuation spray,suspension 2 spray intranasal Q12H 30 Days Qty: 16 0RF Rx Instructions: administer into each nostril (DME) walker Misc See Rx Instructions .Route Qty: 1 0RF Rx Instructions: To be use lifetime (DME) underpads [Bed Underpads] Pad See Rx Instructions .Route Qty: 100 0RF Rx Instructions: As directed Arnuity Ellipta 50 mcg/actuation blister with device 1 inh inhalation DAILY 30 Days Qty: 30 6RF hydrochlorothiazide 25 mg tablet 25 mg PO DAILY 30 Days Qty: 30 11RF albuterol sulfate 90 mcg/actuation HFA aerosol inhaler 2 puff PO Q4H PRN (Reason: bronchospasm) 30 Days Qty: 8.5 6RF atorvastatin 20 mg tablet 20 mg PO BEDTIME 90 Days Qty: 90 1RF Combivent Respimat 20-100 mcg/actuation mist 1 puff PO QID 30 Days Qty: 25 1RF Patient Comments: Pulmo given fenofibrate 54 mg tablet 54 mg PO DAILY 90 Days Qty: 90 1RF potassium chloride 20 mEq tablet extended release 20 meq PO DAILY 30 Days Qty: 30 2RF loratadine 10 mg tablet 10 mg PO DAILY PRN (Reason: for allergies) 30 Days Qty: 30 1RF lwzgxstmwr-tzowblkifhxyp-lcxa [Fioricet] 50-300-40 mg capsule 1 cap PO Q4-6H PRN (Reason: headache) Qty: 10 0RF tramadol 50 mg tablet 50 mg PO BID PRN (Reason: severe pain (scale score 7-10)) 30 Days Qty: 60 0RF naloxone 10 mg/0.4 mL auto-injector 2 mg subcut Q3M 30 Days Qty: 4 0RF Rx Instructions: until desired response clonazepam 0.5 mg tablet 0.5 mg PO BEDTIME PRN (Reason: anxiety) 30 Days Qty: 60 1RF acetaminophen 500 mg tablet 1,000 mg PO TID PRN (Reason: pain) Qty: 20 0RF lidocaine [Lidoderm] 5 % adhesive patch,medicated 1 patch topical DAILY Qty: 30 0RF Rx Instructions: leave on most painful area for up to 12 hrs cyclobenzaprine 10 mg tablet 10 mg PO TID PRN (Reason: muscle spasm) Qty: 15 0RF albuterol sulfate 90 mcg/actuation HFA aerosol inhaler 2 puff inhalation Q4-6H PRN (Reason: shortness of breath or wheezing) Qty: 6.7 0RF fluticasone propionate [Flonase Allergy Relief] 50 mcg/actuation spray,suspension 2 spray intranasal DAILY Qty: 16 0RF Rx Instructions: administer into each nostril albuterol sulfate 2.5 mg/0.5 mL solution for nebulization 5 mg inhalation Q4H PRN (Reason: shortness of breath or wheezing) Qty: 30 0RF meclizine 12.5 mg tablet 12.5 mg PO TID PRN (Reason: dizziness) Qty: 14 0RF cholecalciferol (vitamin D3) 50 mcg (2,000 unit) tablet 50 mcg PO DAILY 90 Days Qty: 90 1RF clobetasol 0.05 % cream 1 appl topical BID 14 Days Qty: 30 0RF Emgality Pen 120 mg/mL pen injector 120 mg subcut ONCE 30 Days Qty: 1 6RF magnesium oxide 400 mg (241.3 mg magnesium) tablet 400 mg PO BEDTIME 30 Days Qty: 30 6RF Rx Instructions: may hold for loose stools riboflavin (vitamin B2) 400 mg tablet 400 mg PO DAILY 30 Days Qty: 30 6RF Discharge Date/Time: 02/01/24 19:06
--- NOTE | 2024-02-01 19:03 | PC.NURSE ---
Per comment in chart, called @ 1658, no answer.
== END 2024-02-01 19:06 | disposition left against medical advice (07) ==
LOC: HO.ED 19:04
PROVIDERS: Emergency Provider Emergency Medicine; PCP Internal Medicine
DX: T78.40XA Allergy, unspecified, initial encounter (principal); X58.XXXA Exposure to other specified factors, initial encounter; R06.02 Shortness of breath; L29.9 Pruritus, unspecified; F17.210 Nicotine dependence, cigarettes, uncomplicated; Z53.21 Procedure and treatment not carried out due to patient leaving prior to being seen by health care provider
CPT/HCPCS: 99281

== ENCOUNTER 2024-02-08 02:40 | Emergency (ER) | payer OTHER, SELFPAY ==
--- NOTE | 2024-02-08 | ECG_ITS ---
Test Reason : CP Blood Pressure : / mmHG Vent. Rate : 081 BPM Atrial Rate : 081 BPM P-R Int : 158 ms QRS Dur : 068 ms QT Int : 386 ms P-R-T Axes : 044 008 -11 degrees QTc Int : 448 ms Normal sinus rhythm Minimal voltage criteria for LVH, may be normal variant ( R in aVL ) Borderline ECG When compared with ECG of 05-JAN-2024 13:59, No significant change was found Referred By: Generic ED Physician Electronically Signed By:YOLY GUERRERO
--- NOTE | ~2024-02-08 | XR_ITS ---
EXAMINATION: XR CHEST 2 VIEWS CLINICAL INFORMATION: chest pain, sob COMPARISON: Chest radiograph 01/13/2024. Chest radiograph 12/09/2020 TECHNIQUE: PA and lateral chest radiographs FINDINGS: Normal appearance of the cardiomediastinal structures. No effusions or pneumothoraces. No focal pulmonary consolidation. 4 mm well-circumscribed ovoid density projected over the right lateral aspect of the upper lung zone unchanged compared with 01/05/2024 and 12/09/2020 suspicious for a benign pulmonary granuloma. XR/XR chest 2V IMPRESSION: No acute cardiopulmonary abnormalities. Electronically signed by: Tato Luis MD 02/08/2024 03:46 AM EDT
[2024-02-08 02:46] VITALS: BP 126/90; PULSE 90; RESP 18; TEMP 36.6; O2SAT 95; BMI 29.1
[2024-02-08 03:52] LABS: Hematocrit 36.2 % (37.0-47.0); Hemoglobin 12.5 g/dl (12.0-16.0); Mean Corpuscular HGB Conc 34.5 g/dl (31.0-35.0); Mean Corpuscular Hemoglobin 28.3 pg (27.0-33.0); Mean Corpuscular Volume 81.9 fL (80.0-98.0); Mean Platelet Volume 10.2 fL (9.4-12.3); Platelet Count 283 X10*3/uL (160-400); Red Blood Count 4.42 X10*6/uL (4.20-5.50); Red Cell Distribution Width 14.5 % (11.0-16.0); White Blood Count 7.2 X10*3/uL (4.8-10.8)
[2024-02-08 03:59] LABS: INTERNATIONAL NORM RATIO 0.9 (0.9-1.1); Prothrombin Time 11.2 SEC (11.1-13.3)
[2024-02-08 04:17] LABS: Troponin-I High Sensitivity < 2.7 ng/L (<3.5-17.0)
[2024-02-08 04:28] LABS: Influenza A PCR NEGATIVE (Negative); Influenza B PCR NEGATIVE (Negative); Resp Syncy Virus RNA Qual PCR NEGATIVE (Negative); SARS COV2 PCR INHOUSE NEGATIVE (Negative)
[2024-02-08 04:38] LABS: Alanine Aminotransferase 14 U/L (0-31); Alkaline Phosphatase 110 U/L (39-117); Anion Gap 15 (12-20); Aspartate Amino Transferase 17 U/L (5-31); Bilirubin Total 0.3 mg/dL (0.0-1.0); Blood Urea Nitrogen 15 mg/dL (9-16); Calcium 9.5 mg/dL (8.4-10.2); Carbon Dioxide 26 mmol/L (22-29); Chloride 103 mmol/L (96-108); Creatinine Clr Calc Pharmacy 66.8; Estimated Glomerular Filt Rate > 60; Glucose Random 107 mg/dL (60-115); Potassium 3.2 mmol/L (3.3-5.1); Sodium 141 mmol/L (135-145); Total Protein 7.3 g/dL (6.5-8.0)
[2024-02-08 04:55] VITALS: BP 136/85; PULSE 79; RESP 16; TEMP 36.5; O2SAT 99
--- NOTE | 2024-02-08 07:03 | ED_ITS ---
HPI - SOB/Dyspnea General Chief Complaint: Dyspnea Stated Complaint: dizzy, SOB Time Seen by Provider: 02/08/24 07:01 Source: patient Mode of arrival: ambulatory Limitations: no limitations History of Present Illness ED Provider: LUTHER Related Data Previous Rx's ?Medication ?Instructions ?Recorded blood pressure monitor (Blood #1 ea 09/06/22 Pressure Kit) cane #1 ea 09/06/22 acetaminophen 500 mg tablet 1,000 mg (2 x 500 mg) PO TID PRN 10/07/22 pain #20 tabs fluticasone propionate 50 2 spray intranasal Q12H 30 days 10/30/22 mcg/actuation nasal #16 grams spray,suspension (Flonase Allergy Relief) cholecalciferol (vitamin D3) 50 50 mcg PO DAILY 90 days #90 tabs 03/28/23 mcg (2,000 unit) tablet underpads (Bed Underpads) #100 ea 03/28/23 walker #1 ea 03/28/23 galcanezumab-gnlm 120 mg/mL 120 mg subcut ONCE 30 days #1 mL 04/20/23 subcutaneous pen injector (Emgality Pen) magnesium oxide 400 mg (241.3 mg 400 mg PO BEDTIME 30 days #30 tabs 04/20/23 magnesium) tablet riboflavin (vitamin B2) 400 mg 400 mg PO DAILY 30 days #30 tabs 04/20/23 tablet fluticasone furoate 50 1 inh inhalation DAILY 30 days #30 06/22/23 mcg/actuation blister powder for ea inhalation (Arnuity Ellipta) hydrochlorothiazide 25 mg tablet 25 mg PO DAILY 30 days #30 tabs 06/26/23 albuterol sulfate 90 mcg/actuation 2 puff PO Q4H PRN bronchospasm 30 06/27/23 aerosol inhaler days #8.5 grams atorvastatin 20 mg tablet 20 mg PO BEDTIME 90 days #90 tabs 10/09/23 ipratropium 20 mcg-albuterol 100 1 puff PO QID 30 days #25 mL 10/18/23 mcg/actuation mist for inhalation (Combivent Respimat) fenofibrate 54 mg tablet 54 mg PO DAILY 90 days #90 tabs 10/24/23 potassium chloride 20 mEq 20 meq PO DAILY 30 days #30 tabs 10/28/23 tablet,extended release albuterol sulfate 2.5 mg/0.5 mL 5 mg inhalation Q4H PRN shortness 11/12/23 solution for nebulization of breath or wheezing #30 ea albuterol sulfate 90 mcg/actuation 2 puff inhalation Q4-6H PRN 11/12/23 aerosol inhaler shortness of breath or wheezing #6.7 grams fluticasone propionate 50 2 spray intranasal DAILY #16 grams 11/12/23 mcg/actuation nasal spray,suspension (Flonase Allergy Relief) meclizine 12.5 mg tablet 12.5 mg PO TID PRN dizziness #14 11/21/23 tabs loratadine 10 mg tablet 10 mg PO DAILY PRN for allergies 12/01/23 30 days #30 tabs jcvqbtzdic-gdamkufpadswb-myhhxdxh 1 cap PO Q4-6H PRN headache #10 12/02/23 50 mg-300 mg-40 mg capsule caps (Fioricet) clobetasol 0.05 % topical cream 1 appl topical BID 2 weeks #30 01/03/24 grams cyclobenzaprine 10 mg tablet 10 mg PO TID PRN muscle spasm #15 01/05/24 tabs lidocaine 5 % topical patch 1 patch topical DAILY #30 ea 01/05/24 (Lidoderm) tramadol 50 mg tablet 50 mg PO BID PRN severe pain 01/07/24 (scale score 7-10) 30 days #60 tabs naloxone 10 mg/0.4 mL 2 mg (0.08 mL) subcut Q3M 30 days 01/09/24 injection,auto-injector #4 mL clonazepam 0.5 mg tablet 0.5 mg PO BEDTIME PRN anxiety 30 01/21/24 days #60 tabs Allergies Allergy/AdvReac Type Severity Reaction Status Date / Time amitriptyline Allergy Intermediate headache Verified 02/08/24 02:47 ibuprofen [From Motrin] Allergy Intermediate ITCHY RASH Verified 02/08/24 02:47 gabapentin AdvReac Intermediate vomiting Verified 02/08/24 02:47 PMFSH Past Medical History Medical History Acute maxillary sinusitis Otitis externa Hospital discharge follow-up Microscopic hematuria Physical exam Goiter Blurry vision Tobacco dependence Has daytime drowsiness Pulmonary nodules Moderate recurrent major depression Dyspnea Hand pain Skin lesion Leg pain, bilateral Dyslipidemia Epigastric pain Essential hypertension Cervical cancer screening GERD (gastroesophageal reflux disease) HTN (hypertension) Migraine Anxiety Depression Right lower quadrant pain Fibromyalgia Surgical History Previous section History of breast lump/mass excision History of lithotripsy H/O LEEP H/O tubal ligation Family History Family History Father Myocardial infarction Mother Lung cancer Brother Liver cancer Maternal Grandfather Stomach cancer Maternal Grandmother No problems noted. Social History Social History Housing: Apartment Alcohol intake: never Patient Tobacco Use Status: Current someday Tobacco user Tobacco use type: Cigarette Cigarettes Per Day: 3 Smoked in Last 30 Days: No e-Cigarette/Vaping Use: Never Used Second Hand Smoke Exposure: No Use of substances other than those prescribed or required for medical reasons: No Advance Directives: No Advance Directives Information Provided: No Do you have a plan to hurt others: No Plan Patient : No service: No Current occupational status: disabled Gender identity: Female Cognitive needs: No Hearing needs: No Vision needs: No Physical Exam 2 Vital Signs: Vital Signs: Last Vital Signs Temp 97.7 F 02/08/24 04:55 Pulse 79 02/08/24 04:55 Resp 16 02/08/24 04:55 BP 136/85 02/08/24 04:55 Pulse Ox 99 02/08/24 04:55 O2 Del Method Room Air 02/08/24 04:55 BMI result Body Mass Index 29.1 Medical Decision Making Lab Data 02/08/24 03:46 02/08/24 03:46 Labs: Lab Results 02/08/24 Range/Units 03:46 WBC 7.2 (4.8-10.8) X10*3/uL RBC 4.42 (4.20-5.50) X10*6/uL Hgb 12.5 (12.0-16.0) g/dl Hct 36.2 L (37.0-47.0) % MCV 81.9 (80.0-98.0) fL MCH 28.3 (27.0-33.0) pg MCHC 34.5 (31.0-35.0) g/dl RDW 14.5 (11.0-16.0) % Plt Count 283 (160-400) X10*3/uL MPV 10.2 (9.4-12.3) fL Absolute Nucleated RBC 0.000 (0.0-0.012) X10*3/uL Nucleated RBC % (auto) 0.0 (0.0-0.2) /100WBC PT 11.2 (11.1-13.3) SEC INR 0.9 (0.9-1.1) Sodium 141 (135-145) mmol/L Potassium 3.2 L (3.3-5.1) mmol/L Chloride 103 (96-108) mmol/L Carbon Dioxide 26 (22-29) mmol/L Anion Gap 15 (12-20) BUN 15 (9-16) mg/dL Creatinine 0.85 (0.5-1.4) mg/dL Estim Creat Clear Calc 66.8 Estimated GFR > 60 Random Glucose 107 (60-115) mg/dL Calcium 9.5 (8.4-10.2) mg/dL Total Bilirubin 0.3 (0.0-1.0) mg/dL AST 17 (5-31) U/L ALT 14 (0-31) U/L Alkaline Phosphatase 110 (39-117) U/L Troponin I High Sens < 2.7 (<3.5-17.0) ng/L Total Protein 7.3 (6.5-8.0) g/dL Albumin 4.0 (3.5-5.0) g/dL Influenza Type A (PCR) NEGATIVE (Negative) Influenza Type B (PCR) NEGATIVE (Negative) RSV RNA Qual (PCR) NEGATIVE (Negative) SARS-CoV-2 RNA (RT-PCR) NEGATIVE (Negative) Discharge Plan Discharge Prescriptions: No Action (DME) blood pressure monitor [Blood Pressure Kit] Kit See Rx Instructions .ROUTE .MEDSUPPLY Qty: 1 0RF Rx Instructions: As directed (DME) cane Device See Rx Instructions .Route Qty: 1 0RF Rx Instructions: As directed fluticasone propionate [Flonase Allergy Relief] 50 mcg/actuation spray,suspension 2 spray intranasal Q12H 30 Days Qty: 16 0RF Rx Instructions: administer into each nostril (DME) walker Misc See Rx Instructions .Route Qty: 1 0RF Rx Instructions: To be use lifetime (DME) underpads [Bed Underpads] Pad See Rx Instructions .Route Qty: 100 0RF Rx Instructions: As directed Arnuity Ellipta 50 mcg/actuation blister with device 1 inh inhalation DAILY 30 Days Qty: 30 6RF hydrochlorothiazide 25 mg tablet 25 mg PO DAILY 30 Days Qty: 30 11RF albuterol sulfate 90 mcg/actuation HFA aerosol inhaler 2 puff PO Q4H PRN (Reason: bronchospasm) 30 Days Qty: 8.5 6RF atorvastatin 20 mg tablet 20 mg PO BEDTIME 90 Days Qty: 90 1RF Combivent Respimat 20-100 mcg/actuation mist 1 puff PO QID 30 Days Qty: 25 1RF Patient Comments: Pulmo given fenofibrate 54 mg tablet 54 mg PO DAILY 90 Days Qty: 90 1RF potassium chloride 20 mEq tablet extended release 20 meq PO DAILY 30 Days Qty: 30 2RF loratadine 10 mg tablet 10 mg PO DAILY PRN (Reason: for allergies) 30 Days Qty: 30 1RF wuahhwhetj-zjnhhfxhvfjap-sytn [Fioricet] 50-300-40 mg capsule 1 cap PO Q4-6H PRN (Reason: headache) Qty: 10 0RF tramadol 50 mg tablet 50 mg PO BID PRN (Reason: severe pain (scale score 7-10)) 30 Days Qty: 60 0RF naloxone 10 mg/0.4 mL auto-injector 2 mg subcut Q3M 30 Days Qty: 4 0RF Rx Instructions: until desired response clonazepam 0.5 mg tablet 0.5 mg PO BEDTIME PRN (Reason: anxiety) 30 Days Qty: 60 1RF acetaminophen 500 mg tablet 1,000 mg PO TID PRN (Reason: pain) Qty: 20 0RF lidocaine [Lidoderm] 5 % adhesive patch,medicated 1 patch topical DAILY Qty: 30 0RF Rx Instructions: leave on most painful area for up to 12 hrs cyclobenzaprine 10 mg tablet 10 mg PO TID PRN (Reason: muscle spasm) Qty: 15 0RF albuterol sulfate 90 mcg/actuation HFA aerosol inhaler 2 puff inhalation Q4-6H PRN (Reason: shortness of breath or wheezing) Qty: 6.7 0RF fluticasone propionate [Flonase Allergy Relief] 50 mcg/actuation spray,suspension 2 spray intranasal DAILY Qty: 16 0RF Rx Instructions: administer into each nostril albuterol sulfate 2.5 mg/0.5 mL solution for nebulization 5 mg inhalation Q4H PRN (Reason: shortness of breath or wheezing) Qty: 30 0RF meclizine 12.5 mg tablet 12.5 mg PO TID PRN (Reason: dizziness) Qty: 14 0RF cholecalciferol (vitamin D3) 50 mcg (2,000 unit) tablet 50 mcg PO DAILY 90 Days Qty: 90 1RF clobetasol 0.05 % cream 1 appl topical BID 14 Days Qty: 30 0RF Emgality Pen 120 mg/mL pen injector 120 mg subcut ONCE 30 Days Qty: 1 6RF magnesium oxide 400 mg (241.3 mg magnesium) tablet 400 mg PO BEDTIME 30 Days Qty: 30 6RF Rx Instructions: may hold for loose stools riboflavin (vitamin B2) 400 mg tablet 400 mg PO DAILY 30 Days Qty: 30 6RF Print Language: Slovak
--- NOTE | 2024-02-08 07:12 | PC.NURSE ---
Pt not in room at time of vital sign recheck. Pt LWBS.
== END 2024-02-08 07:01 | disposition left against medical advice (07) ==
PROVIDERS: Emergency Medicine; Emergency Provider Emergency Medicine; PCP Internal Medicine
DX: R42 Dizziness and giddiness (principal); R06.02 Shortness of breath; H92.01 Otalgia, right ear; R07.9 Chest pain, unspecified; Z03.818 Encounter for observation for suspected exposure to other biological agents ruled out; J45.909 Unspecified asthma, uncomplicated
CPT/HCPCS: 0241U; 36415; 71046; 80053; 84484; 85027; 85610; 93005; 99283; 99284

== ENCOUNTER 2024-02-19 13:55 | Outpatient (REF) | payer OTHER, SELFPAY ==
--- NOTE | ~2024-02-19 | XR_ITS ---
EXAMINATION: XR CHEST CLINICAL INFORMATION: Chest pain COMPARISON: Chest x-ray on 02/08/2024 TECHNIQUE: 2 views of the chest were obtained. FINDINGS: No significant abnormality is noted involving the heart, lungs, mediastinum, bony thorax or soft tissues. XR/XR chest 2V IMPRESSION: Unremarkable examination. Electronically signed by: Jaki Lopez MD 02/20/2024 06:00 PM EDT RP
== END 2024-02-19 13:56 | disposition home or self-care (01) ==
LOC: HO.XRAY 13:55
PROVIDERS: PCP Internal Medicine; Visit Provider Internal Medicine
DX: R07.9 Chest pain, unspecified (principal)
CPT/HCPCS: 71046

== ENCOUNTER 2024-02-19 15:00 | Outpatient (AMB) | payer OTHER, SELFPAY ==
[2024-02-19 15:03] VITALS: BP 110/80; PULSE 101; O2SAT 95; BMI 28.6
--- NOTE | 2024-02-19 15:03 | MHC.PC.OV ---
Vital Signs 02/19/24 15:03 Height 5 ft 1 in Weight 151 lb 8 oz BMI 28.6 BP 110/80 Blood Pressure Location Lt brachial Position Sitting Pulse 101 H Pulse Source Pulse Oximeter Pulse Oximetry (%) 95 Oxygen Delivery Method Room Air Intake Visit Reasons: HDF [facility] [place] 02/07 SOB Technical Developer Required: Yes Accompanied by: Self / Same As Patient Allergies amitriptyline Allergy (Intermediate, Verified 02/19/24 15:04) headache ibuprofen [From Motrin] Allergy (Intermediate, Verified 02/19/24 15:04) ITCHY RASH gabapentin Adverse Reaction (Intermediate, Verified 02/19/24 15:04) vomiting Tobacco use date assessed: 02/19/24 Dental Screening Dental Screen Date: 02/19/24 Did you have a dental visit in the last 12 months?: Yes Did you have a dental problem in the last 6 months where you did not have access to dental care?: No Was dental information given to patient?: Patient has dentist HPI HPI Comments History of Present Illness Details 53 y/o Austrian speaking female patient who presents to the clinic today for EDF. She was admitted on 02/11/24 at [facility] ED for c/o Chest pain, SOB and dizziness. Blood work, ECG and Chest Xray were all WNL. Pt did leave AMA before being seen by Provider. Pt states that I was told all my tests were normal and I can go home and f/u with my doctor . Pt has an Appointment with Pulmonology in March 2024. Pt did get another chest Xray today, results still pending. She continues to c/o Chest pain/tightness, SOB and Dizziness. [facility] Medical History Acute maxillary sinusitis Otitis externa Hospital discharge follow-up Microscopic hematuria Physical exam Goiter Blurry vision Tobacco dependence Has daytime drowsiness Pulmonary nodules Moderate recurrent major depression Dyspnea Hand pain Skin lesion Leg pain, bilateral Dyslipidemia Epigastric pain Essential hypertension Cervical cancer screening GERD (gastroesophageal reflux disease) HTN (hypertension) Migraine Anxiety Depression Right lower quadrant pain Fibromyalgia Surgical History Previous section History of breast lump/mass excision History of lithotripsy H/O LEEP H/O tubal ligation Family History Father Myocardial infarction Mother Lung cancer Brother Liver cancer Maternal Grandfather Stomach cancer Maternal Grandmother No problems noted. Social History Housing: Apartment Alcohol intake: never Patient Tobacco Use Status: Current someday Tobacco user Tobacco use type: Cigarette Cigarettes Per Day: 3 e-Cigarette/Vaping Use: Never Used Second Hand Smoke Exposure: No service: No Current occupational status: disabled Gender identity: Female Cognitive needs: No Hearing needs: No Vision needs: No Female Reproductive History Menstrual Age of Menarche: 9 Questionnaire PHQ-9 Over the last 2 weeks, how often have you been bothered by any of the following problems? 1. Little interest or pleasure in doing things: more than half the days 2. Feeling down, depressed, or hopeless: more than half the days 3. Trouble falling or staying asleep, or sleeping too much: several days 4. Feeling tired or having little energy: nearly every day 5. Poor appetite or overeating: several days 6. Feeling bad about yourself - or that you are a failure or have let yourself or your family down: more than half the days 7. Trouble concentrating on things, such as reading the newspaper or watching television: several days 8. Moving or speaking so slowly that other people could have noticed. Or the opposite - being so fidgety or restless that you have been moving around a lot more than usual: several days 9. Thoughts that you would be better off or of hurting yourself in some way: several days Total score: 14 Depression Screening Interpretation: Positive (no suicidal thoughts) Depression Screening Follow-up: Existing condition and In treatment Depression Screening Done: Yes Source: Developed by Drs. Sylvester Merlos, Eve Mcclelland, Joby King and colleagues, with an educational pili from [employer]. Thrive Questionnaire Date Thrive assessed: 02/19/24 I am a: Patient What is your living situation today?: I have a steady place to live Within the past 12 months, did the food you bought not last and you didn't have the money to get more?: Never true Within the past 12 months, did you worry whether your food would run out before you got money to buy more?: Never true Do you have trouble paying for medicines?: No Do you have trouble getting transportation to medical appointments?: No Do you have trouble paying your heating and electricity bill?: No Do you have trouble taking care of your child, family member or friend?: No Do you have trouble with day-to-day activities such as bathing, preparing meals, shopping, managing finances, etc.?: No Are you currently unemployed and looking for a job?: No Are you interested in more education?: No Please select the resources that you would like help with: None Currently or been in a relationship where the following occur: No concerns reported THRIVE Score: 0 AUDIT C Alcohol Use Questionnaire (AUDIT-C) 1. How often do you have a drink containing alcohol?: Monthly or less 2. How many drinks containing alcohol do you have on a typical day when you are drinking?: 1 or 2 3. How often do you have six or more drinks on one occasion?: Never Total Score: 1 Score Reviewed/Action Taken: No JOHN-7 AMB Questionnaire JOHN-7 Date JOHN - 7 assessed: 02/19/24 Feeling nervous, anxious, or on edge: 0 = Not at all Not being able to stop or control worryin = Not at all Worrying too much about different things: 0 = Not at all Trouble relaxin = Not at all Being so restless that it is hard to sit still: 0 = Not at all Becoming easily annoyed or irritable: 0 = Not at all Feeling afraid as if something awful might happen: 0 = Not at all Total JOHN-7 score (0-4 normal; 5-9 mild; 10-14 moderate; 15-21 severe): 0 Source: Developed by Drs. Sylvester Merlos, Eve Mcclelland, Joby King and colleagues, with an educational pili from [employer]. Review of Systems Const All systems reviewed & are unremarkable except as noted in HPI and below Physical exam (Primary Care) Vital Signs: Last Vital Signs Pulse 101 H 02/19/24 15:03 BP 110/80 02/19/24 15:03 Pulse Ox 95 02/19/24 15:03 Oxygen Delivery Method Room Air 02/19/24 15:03 BMI result Body Mass Index 28.6 Tobacco/Smoking Status: Tobacco use Status Tobacco use date assessed 02/19/24 02/19/24 15:10 Patient Tobacco Use Status Current someday Tobacco 02/19/24 15:10 Tobacco use type Cigarette 02/19/24 15:10 e-Cigarette/Vaping Use Never Used 02/19/24 15:10 PHQ-9: PHQ-9 Score PHQ-9: Total score 14 02/19/24 15:10 Depression Screening Interpretation: Positive (no suicidal thoughts) Depression Screening Follow-up: Existing condition and In treatment Thrive Assessment: Date of Thrive Assessment Date Thrive assessed 02/19/24 02/19/24 15:10 Currently or been in a relationship where the following occur: No concerns reported Const General: cooperative and no acute distress Nutritional Appearance: obese Orientation/consciousness: patient oriented x3 Limitations: language barrier (industrial technology teacher was utilized) Resp Effort & Inspection: normal respiratory effort and able to speak in complete sentences Auscultation: clear to auscultation bilaterally, no crackles, no rales, no rhonchi and no wheezes Cardio Heart sounds: S1 normal heart sound present and S2 normal heart sound present Skin General skin exam: no rashes or lesions noted Neuro General: patient oriented x3, gait normal and moves all extremities Psych Speech and movement: Normal speech and movement present Assessment and Plan Assessment & Plan (1) Chest pain: Code(s): R07.9 - Chest pain, unspecified Qualifiers: Chest pain type: unspecified Qualified Code(s): R07.9 - Chest pain, unspecified Plan: Chest Xray and ECG normal (Done 01/2024). Chest Xrays done today, still pending results Advised to go to the ED for further evaluation and management due to ongoing symptoms. She does have upcoming Appointment with Pulmonology in March. Coding Level of Care Code Est Pt Level 4 (57704) Diagnoses Chest pain, unspecified type R07.9 Chest pain type: unspecified Time Spent (min) 20 Comment Spent reviewing Hospital notes and patient education
== END 2024-02-19 15:36 | disposition home or self-care (01) ==
PROVIDERS: PCP Internal Medicine; Visit Provider Nurse Practitioner Family
DX: R07.9 Chest pain, unspecified (principal)
CPT/HCPCS: 99214

== ENCOUNTER 2024-02-20 15:05 | Emergency (ER) | payer OTHER, SELFPAY ==
--- NOTE | ~2024-02-20 | XR_ITS ---
EXAMINATION: XR CHEST CLINICAL INFORMATION: Chest pain COMPARISON: Chest x-ray on 02/19/2024 TECHNIQUE: 2 views of the chest were obtained. FINDINGS: No significant abnormality is noted involving the heart, lungs, mediastinum, bony thorax or soft tissues. XR/XR chest 2V IMPRESSION: Unremarkable examination. Electronically signed by: Jaki Lopez MD 02/20/2024 05:59 PM EDT RP
--- NOTE | 2024-02-20 15:10 | ECG_ITS ---
Test Reason : CHEST PAIN Blood Pressure : / mmHG Vent. Rate : 092 BPM Atrial Rate : 092 BPM P-R Int : 152 ms QRS Dur : 068 ms QT Int : 352 ms P-R-T Axes : 060 016 006 degrees QTc Int : 435 ms Normal sinus rhythm Normal ECG When compared with ECG of 08-FEB-2024 02:58, No significant change was found Referred By: Rosa M Zaidi Electronically Signed By:YOLY GUERRERO
[2024-02-20 15:36] VITALS: BP 134/76; PULSE 95; RESP 20; TEMP 36.3; O2SAT 95; BMI 28.5
--- NOTE | 2024-02-20 15:37 | ED_ITS ---
HPI - Chest Pain General Chief Complaint: Chest Pain Stated Complaint: Chest pain Time Seen by Provider: 02/20/24 19:47 Source: patient Limitations: language barrier History of Present Illness ED Provider: Blaire Wilkerson PA-C HPI narrative: 53-year-old female with history of hypertension, hyperlipidemia, asthma, fibromyalgia and chronic pain presents with chest pain for months. Patient states she frequently develops left anterior chest pain that is worse with movement and palpation of the chest wall. Patient has had numerous cardiac assessment should have been negative. She has a follow up appointment with her primary care provider. In addition, patient states she felt a lump in the left breast, she had a mammogram that was negative. Denies recent cough or cold symptoms, no fevers, no dyspnea with exertion, no new activity that could have precipitated her discomfort today. Related Data Previous Rx's ?Medication ?Instructions ?Recorded blood pressure monitor (Blood #1 ea 09/06/22 Pressure Kit) cane #1 ea 09/06/22 acetaminophen 500 mg tablet 1,000 mg (2 x 500 mg) PO TID PRN 10/07/22 pain #20 tabs fluticasone propionate 50 2 spray intranasal Q12H 30 days 10/30/22 mcg/actuation nasal #16 grams spray,suspension (Flonase Allergy Relief) cholecalciferol (vitamin D3) 50 50 mcg PO DAILY 90 days #90 tabs 03/28/23 mcg (2,000 unit) tablet underpads (Bed Underpads) #100 ea 03/28/23 walker #1 ea 03/28/23 galcanezumab-gnlm 120 mg/mL 120 mg subcut ONCE 30 days #1 mL 04/20/23 subcutaneous pen injector (Emgality Pen) magnesium oxide 400 mg (241.3 mg 400 mg PO BEDTIME 30 days #30 tabs 04/20/23 magnesium) tablet riboflavin (vitamin B2) 400 mg 400 mg PO DAILY 30 days #30 tabs 04/20/23 tablet fluticasone furoate 50 1 inh inhalation DAILY 30 days #30 06/22/23 mcg/actuation blister powder for ea inhalation (Arnuity Ellipta) hydrochlorothiazide 25 mg tablet 25 mg PO DAILY 30 days #30 tabs 06/26/23 albuterol sulfate 90 mcg/actuation 2 puff PO Q4H PRN bronchospasm 30 06/27/23 aerosol inhaler days #8.5 grams ipratropium 20 mcg-albuterol 100 1 puff PO QID 30 days #25 mL 10/18/23 mcg/actuation mist for inhalation (Combivent Respimat) fenofibrate 54 mg tablet 54 mg PO DAILY 90 days #90 tabs 10/24/23 potassium chloride 20 mEq 20 meq PO DAILY 30 days #30 tabs 10/28/23 tablet,extended release albuterol sulfate 2.5 mg/0.5 mL 5 mg inhalation Q4H PRN shortness 11/12/23 solution for nebulization of breath or wheezing #30 ea albuterol sulfate 90 mcg/actuation 2 puff inhalation Q4-6H PRN 11/12/23 aerosol inhaler shortness of breath or wheezing #6.7 grams fluticasone propionate 50 2 spray intranasal DAILY #16 grams 11/12/23 mcg/actuation nasal spray,suspension (Flonase Allergy Relief) meclizine 12.5 mg tablet 12.5 mg PO TID PRN dizziness #14 11/21/23 tabs loratadine 10 mg tablet 10 mg PO DAILY PRN for allergies 12/01/23 30 days #30 tabs ajlukikcyd-xpxtrteqvsrln-rwradfns 1 cap PO Q4-6H PRN headache #10 12/02/23 50 mg-300 mg-40 mg capsule caps (Fioricet) clobetasol 0.05 % topical cream 1 appl topical BID 2 weeks #30 01/03/24 grams cyclobenzaprine 10 mg tablet 10 mg PO TID PRN muscle spasm #15 01/05/24 tabs lidocaine 5 % topical patch 1 patch topical DAILY #30 ea 01/05/24 (Lidoderm) naloxone 10 mg/0.4 mL 2 mg (0.08 mL) subcut Q3M 30 days 01/09/24 injection,auto-injector #4 mL clonazepam 0.5 mg tablet 0.5 mg PO BEDTIME PRN anxiety 30 01/21/24 days #60 tabs atorvastatin 20 mg tablet 20 mg PO BEDTIME 90 days #90 tabs 02/11/24 venlafaxine 37.5 mg 37.5 mg PO BEDTIME 90 days #90 caps 02/11/24 capsule,extended release 24 hr tramadol 50 mg tablet 50 mg PO BID PRN severe pain 02/19/24 (scale score 7-10) 30 days #60 tabs Allergies Allergy/AdvReac Type Severity Reaction Status Date / Time amitriptyline Allergy Intermediate headache Verified 02/20/24 15:37 ibuprofen [From Motrin] Allergy Intermediate ITCHY RASH Verified 02/20/24 15:37 gabapentin AdvReac Intermediate vomiting Verified 02/20/24 15:37 Review of Systems 2 Review of Systems: Yes all other systems are reviewed and are negative Constitutional: Constitutional: Denies fever(s) Cardiovascular: Cardiovascular: Reports chest pain and Denies dyspnea Respiratory: Respiratory: Denies cough and Denies dyspnea Gastrointestinal: Gastrointestinal: Denies nausea and Denies vomiting [facility] Past Medical History Attestation statement: The following information was validated with the patient. Medical History Acute maxillary sinusitis Otitis externa Hospital discharge follow-up Microscopic hematuria Physical exam Goiter Blurry vision Tobacco dependence Has daytime drowsiness Pulmonary nodules Moderate recurrent major depression Dyspnea Hand pain Skin lesion Leg pain, bilateral Dyslipidemia Epigastric pain Essential hypertension Cervical cancer screening GERD (gastroesophageal reflux disease) HTN (hypertension) Migraine Anxiety Depression Right lower quadrant pain Fibromyalgia Surgical History Previous section History of breast lump/mass excision History of lithotripsy H/O LEEP H/O tubal ligation Family History Family History Father Myocardial infarction Mother Lung cancer Brother Liver cancer Maternal Grandfather Stomach cancer Maternal Grandmother No problems noted. Social History Social History Housing: Apartment Alcohol intake: never Patient Tobacco Use Status: Current someday Tobacco user Tobacco use type: Cigarette Cigarettes Per Day: 3 Smoked in Last 30 Days: Yes e-Cigarette/Vaping Use: Never Used Second Hand Smoke Exposure: No Use of substances other than those prescribed or required for medical reasons: No Advance Directives: No Advance Directives Information Provided: No Patient : No service: No Current occupational status: disabled Gender identity: Female Cognitive needs: No Hearing needs: No Vision needs: No Physical Exam 2 Vital Signs: Vital Signs: Last Vital Signs Temp 98.2 F 02/20/24 20:01 Pulse 80 02/20/24 20:01 Resp 12 02/20/24 20:01 BP 111/79 02/20/24 20:01 Pulse Ox 98 02/20/24 20:01 O2 Del Method Room Air 02/20/24 20:01 BMI result Body Mass Index 28.5 Const: Other: Alert well in appearance Orientation/consciousness: patient oriented x3 Chest: Other: Tenderness to palpation over left anterior chest wall, there was no deformity, there is no overlying erythema or ecchymosis Resp: Other: Nonlabored respiration Cardio: Other: Normal peripheral perfusion Skin: Other: Warm dry no rash Neuro: General: patient oriented x3, no focal motor deficits and CN's II-XI intact bilaterally Psych: Other: Cooperative Course Course Course Narrative: This is an RME: Additional HPI, ROS, PE not included below will be deferred to primary provider. RME assessment and note performed by: Rosa M Zaidi PA-C This is a 13-eaxa-rrf-female who presents to the ER with complaints of chest pain. Pt states that the pain is left sided. She also endorses SOB. Reports that it has been intermittent for 2 months, but over the last 3 days it has been constant. Also endorsing bump in her left breast, had mammogram and patient reports that it did not show any abnormalities. Plan: Labs, EKG, CXR Medical Decision Making Medical Decision Making MDM Narrative: 53-year-old female with history of hypertension, hyperlipidemia, asthma, fibromyalgia and chronic pain presents with chest pain for months. Patient states she frequently develops left anterior chest pain that is worse with movement and palpation of the chest wall. Patient has had numerous cardiac assessment should have been negative. She has a follow up appointment with her primary care provider. In addition, patient states she felt a lump in the left breast, she had a mammogram that was negative. Denies recent cough or cold symptoms, no fevers, no dyspnea with exertion, no new activity that could have precipitated her discomfort today. Problem: Chronic pain, hypertension hyperlipidemia History: Per patient I have considered the following differential diagnoses: ACS, chest wall strain, costochondritis, viral syndrome, asthma exacerbation Plan: Patient is assessment began on RMA, screening labs including cardiac enzymes, chest x-ray and EKG obtained. This is not ACS, the patient has very reproducible pain with palpation of the chest wall, I feel that her discomfort is related to her chronic pain syndrome. She can continue her follow up with her primary care provider. She does not have recent cough or cold symptoms to suggest costochondritis as cause for her pain. She has no wheezing on exam, this is not asthma exacerbation or a pneumonia. I have independently reviewed the following tests: Labs: No leukocytosis, not anemic, no electrolyte abnormality, troponin negative EKG: Normal sinus rhythm, rate of 92, no ischemic changes no ectopy Chest x-ray: CLINICAL INFORMATION: Chest pain COMPARISON: Chest x-ray on 02/19/2024 TECHNIQUE: 2 views of the chest were obtained. FINDINGS: No significant abnormality is noted involving the heart, lungs, mediastinum, bony thorax or soft tissues. XR/XR chest 2V IMPRESSION: Unremarkable examination. Lab Data 02/20/24 15:56 02/20/24 15:56 Labs: Lab Results 02/20/24 Range/Units 15:56 WBC 7.3 (4.8-10.8) X10*3/uL RBC 4.29 (4.20-5.50) X10*6/uL Hgb 11.7 L (12.0-16.0) g/dl Hct 34.8 L (37.0-47.0) % MCV 81.1 (80.0-98.0) fL MCH 27.3 (27.0-33.0) pg MCHC 33.6 (31.0-35.0) g/dl RDW 14.4 (11.0-16.0) % Plt Count 282 (160-400) X10*3/uL MPV 10.0 (9.4-12.3) fL Immature Gran % (Auto) 0.1 (0.0-0.4) % Neut % (Auto) 60.7 (45-73) % Lymph % (Auto) 27.5 (20-40) % Jewell % (Auto) 7.7 (2-11) % Eos % (Auto) 3.3 (0-4) % Baso % (Auto) 0.7 (0-2) % Lymph # (Auto) 2.0 (1.2-4.9) X10*3/uL Jewell # (Auto) 0.6 (0.1-1.2) X10*3/uL Eos # (Auto) 0.2 (0.0-0.4) X10*3/uL Baso # (Auto) 0.1 (0.0-0.2) X10*3/uL Abs Immat Gran (auto) 0.01 (0.00-0.03) X10*3/uL Absolute Neuts (auto) 4.4 (2.0-8.3) x10*3/uL Absolute Nucleated RBC 0.000 (0.0-0.012) X10*3/uL Nucleated RBC % (auto) 0.0 (0.0-0.2) /100WBC Sodium 144 (135-145) mmol/L Potassium 3.5 (3.3-5.1) mmol/L Chloride 107 (96-108) mmol/L Carbon Dioxide 27 (22-29) mmol/L Anion Gap 14 (12-20) BUN 18 H (9-16) mg/dL Creatinine 0.91 (0.5-1.4) mg/dL Estim Creat Clear Calc 61.8 Estimated GFR > 60 Random Glucose 102 (60-115) mg/dL Calcium 9.7 (8.4-10.2) mg/dL Magnesium 1.9 (1.6-2.6) mg/dL Total Bilirubin 0.5 (0.0-1.0) mg/dL Direct Bilirubin 0.1 (0.0-0.5) mg/dL AST 19 (5-31) U/L ALT 14 (0-31) U/L Alkaline Phosphatase 95 (39-117) U/L Troponin I High Sens < 2.7 (<3.5-17.0) ng/L Total Protein 7.5 (6.5-8.0) g/dL Albumin 4.0 (3.5-5.0) g/dL Lipase 24 (8-78) U/L Influenza Type A (PCR) NEGATIVE (Negative) Influenza Type B (PCR) NEGATIVE (Negative) RSV RNA Qual (PCR) NEGATIVE (Negative) SARS-CoV-2 RNA (RT-PCR) NEGATIVE (Negative) Discharge Plan Discharge Clinical Impression: Chest wall pain Patient Disposition: Home, Self-Care Instructions: Chest Wall Pain (ED) Additional Instructions: All of your labs including cardiac enzymes were normal. There were no concerning changes on her EKG in your chest x-ray is clear. You can use gxry-wyv-htectad ibuprofen 600 mg taken every 6 hours with food, alternated with the use of ldox-nqi-yoeabdg Tylenol 1000 mg taken every 8 hours for your chronic chest wall pain. Keep your scheduled follow up appointment with your primary care provider Prescriptions: No Action (DME) blood pressure monitor [Blood Pressure Kit] Kit See Rx Instructions .ROUTE .MEDSUPPLY Qty: 1 0RF Rx Instructions: As directed (DME) cane Device See Rx Instructions .Route Qty: 1 0RF Rx Instructions: As directed fluticasone propionate [Flonase Allergy Relief] 50 mcg/actuation spray,suspension 2 spray intranasal Q12H 30 Days Qty: 16 0RF Rx Instructions: administer into each nostril (DME) walker Misc See Rx Instructions .Route Qty: 1 0RF Rx Instructions: To be use lifetime (DME) underpads [Bed Underpads] Pad See Rx Instructions .Route Qty: 100 0RF Rx Instructions: As directed Arnuity Ellipta 50 mcg/actuation blister with device 1 inh inhalation DAILY 30 Days Qty: 30 6RF hydrochlorothiazide 25 mg tablet 25 mg PO DAILY 30 Days Qty: 30 11RF albuterol sulfate 90 mcg/actuation HFA aerosol inhaler 2 puff PO Q4H PRN (Reason: bronchospasm) 30 Days Qty: 8.5 6RF Combivent Respimat 20-100 mcg/actuation mist 1 puff PO QID 30 Days Qty: 25 1RF Patient Comments: Pulmo given fenofibrate 54 mg tablet 54 mg PO DAILY 90 Days Qty: 90 1RF potassium chloride 20 mEq tablet extended release 20 meq PO DAILY 30 Days Qty: 30 2RF loratadine 10 mg tablet 10 mg PO DAILY PRN (Reason: for allergies) 30 Days Qty: 30 1RF jgjddfafdv-qqkqrnexzmzny-ukeb [Fioricet] 50-300-40 mg capsule 1 cap PO Q4-6H PRN (Reason: headache) Qty: 10 0RF naloxone 10 mg/0.4 mL auto-injector 2 mg subcut Q3M 30 Days Qty: 4 0RF Rx Instructions: until desired response clonazepam 0.5 mg tablet 0.5 mg PO BEDTIME PRN (Reason: anxiety) 30 Days Qty: 60 1RF atorvastatin 20 mg tablet 20 mg PO BEDTIME 90 Days Qty: 90 1RF venlafaxine 37.5 mg capsule,extended release 24hr 37.5 mg PO BEDTIME 90 Days Qty: 90 1RF tramadol 50 mg tablet 50 mg PO BID PRN (Reason: severe pain (scale score 7-10)) 30 Days Qty: 60 0RF acetaminophen 500 mg tablet 1,000 mg PO TID PRN (Reason: pain) Qty: 20 0RF lidocaine [Lidoderm] 5 % adhesive patch,medicated 1 patch topical DAILY Qty: 30 0RF Rx Instructions: leave on most painful area for up to 12 hrs cyclobenzaprine 10 mg tablet 10 mg PO TID PRN (Reason: muscle spasm) Qty: 15 0RF albuterol sulfate 90 mcg/actuation HFA aerosol inhaler 2 puff inhalation Q4-6H PRN (Reason: shortness of breath or wheezing) Qty: 6.7 0RF fluticasone propionate [Flonase Allergy Relief] 50 mcg/actuation spray,suspension 2 spray intranasal DAILY Qty: 16 0RF Rx Instructions: administer into each nostril albuterol sulfate 2.5 mg/0.5 mL solution for nebulization 5 mg inhalation Q4H PRN (Reason: shortness of breath or wheezing) Qty: 30 0RF meclizine 12.5 mg tablet 12.5 mg PO TID PRN (Reason: dizziness) Qty: 14 0RF cholecalciferol (vitamin D3) 50 mcg (2,000 unit) tablet 50 mcg PO DAILY 90 Days Qty: 90 1RF clobetasol 0.05 % cream 1 appl topical BID 14 Days Qty: 30 0RF Emgality Pen 120 mg/mL pen injector 120 mg subcut ONCE 30 Days Qty: 1 6RF magnesium oxide 400 mg (241.3 mg magnesium) tablet 400 mg PO BEDTIME 30 Days Qty: 30 6RF Rx Instructions: may hold for loose stools riboflavin (vitamin B2) 400 mg tablet 400 mg PO DAILY 30 Days Qty: 30 6RF Print Language: Macanese
[2024-02-20 16:06] LABS: MANUAL DIFF FLAG NO
[2024-02-20 16:07] LABS: Basophils Absolute Auto 0.1 X10*3/uL (0.0-0.2); Basophils Percent Auto 0.7 % (0-2); Eosinophils Absolute Auto 0.2 X10*3/uL (0.0-0.4); Eosinophils Percent Auto 3.3 % (0-4); Hematocrit 34.8 % (37.0-47.0); Hemoglobin 11.7 g/dl (12.0-16.0); Imm Gran Abs Auto 0.01 X10*3/uL (0.00-0.03); Imm Gran Pct Auto 0.1 % (0.0-0.4); Lymphocytes Percent Auto 27.5 % (20-40); Mean Corpuscular HGB Conc 33.6 g/dl (31.0-35.0); Mean Corpuscular Hemoglobin 27.3 pg (27.0-33.0); Mean Corpuscular Volume 81.1 fL (80.0-98.0); Monocytes Absolute Auto 0.6 X10*3/uL (0.1-1.2); Monocytes Percent Auto 7.7 % (2-11); Neutrophils Absolute Auto 4.4 x10*3/uL (2.0-8.3); Neutrophils Percent Auto 60.7 % (45-73); Platelet Count 282 X10*3/uL (160-400); Red Blood Count 4.29 X10*6/uL (4.20-5.50); Red Cell Distribution Width 14.4 % (11.0-16.0); White Blood Count 7.3 X10*3/uL (4.8-10.8)
[2024-02-20 16:21] LABS: Alanine Aminotransferase 14 U/L (0-31); Alkaline Phosphatase 95 U/L (39-117); Anion Gap 14 (12-20); Aspartate Amino Transferase 19 U/L (5-31); Bilirubin Direct 0.1 mg/dL (0.0-0.5); Bilirubin Total 0.5 mg/dL (0.0-1.0); Blood Urea Nitrogen 18 mg/dL (9-16); Calcium 9.7 mg/dL (8.4-10.2); Carbon Dioxide 27 mmol/L (22-29); Chloride 107 mmol/L (96-108); Creatinine Clr Calc Pharmacy 61.8; Estimated Glomerular Filt Rate > 60; Glucose Random 102 mg/dL (60-115); Lipase 24 U/L (8-78); Magnesium 1.9 mg/dL (1.6-2.6); Potassium 3.5 mmol/L (3.3-5.1); Sodium 144 mmol/L (135-145); Total Protein 7.5 g/dL (6.5-8.0)
[2024-02-20 16:29] LABS: Troponin-I High Sensitivity < 2.7 ng/L (<3.5-17.0)
[2024-02-20 16:47] LABS: Influenza A PCR NEGATIVE (Negative); Influenza B PCR NEGATIVE (Negative); Resp Syncy Virus RNA Qual PCR NEGATIVE (Negative); SARS COV2 PCR INHOUSE NEGATIVE (Negative)
[2024-02-20 20:01] VITALS: BP 111/79; PULSE 80; RESP 12; TEMP 36.8; O2SAT 98
[2024-02-20 21:42] VITALS: BP 0/0; PULSE 0; RESP 0; TEMP -17.7; TEMP 0
== END 2024-02-20 21:44 | disposition home or self-care (01) ==
PROVIDERS: Physician Assistant Medical; Emergency Provider Emergency Medicine; PCP Internal Medicine
DX: R07.9 Chest pain, unspecified (principal); R07.89 Other chest pain; I10 Essential (primary) hypertension; E78.5 Hyperlipidemia, unspecified; J45.909 Unspecified asthma, uncomplicated; Z03.818 Encounter for observation for suspected exposure to other biological agents ruled out
CPT/HCPCS: 0241U; 36415; 71046; 80048; 80076; 83690; 83735; 84484; 85025; 93005; 99283; 99285

== ENCOUNTER 2024-02-27 15:59 | Outpatient (AMB) | payer OTHER, SELFPAY ==
--- NOTE | 2024-02-27 16:04 | MHC.OFFWIV ---
Intake Vital Signs 02/27/24 16:06 Height 5 ft 1 in Weight 154 lb BMI 29.1 BP 126/80 Blood Pressure Location Lt brachial Position Sitting Pulse 94 Pulse Source Pulse Oximeter Pulse Oximetry (%) 98 Oxygen Delivery Method Room Air Intake Visit Reasons: EP-nose/eyes/body itching, unbalance feeling Intake Note: Patient here for headache, itchy eyes, feel off balanced since last weekend. Patient Tobacco Use Status: Current someday Tobacco user Allergies amitriptyline Allergy (Intermediate, Verified 02/27/24 16:06) headache ibuprofen [From Motrin] Allergy (Intermediate, Verified 02/27/24 16:06) ITCHY RASH gabapentin Adverse Reaction (Intermediate, Verified 02/27/24 16:06) vomiting Do you need a note to return to daycare/school/sports/work: No HPI HPI Comments History of Present Illness Details Patient is a 53-year-old female complaining of 5 days of a headache, itchy eyes, itchy nose, and now an itchy body. She denies any fevers, cough, head congestion, ear pain but does endorse some sinus pain as well. She denies any new medications but states she just got a new cat. He has been taking Singulair to try to help with what she thinks is an allergy to the cat but it does not seem to be helping much. [facility] Medical History Acute maxillary sinusitis Otitis externa Hospital discharge follow-up Microscopic hematuria Physical exam Goiter Blurry vision Tobacco dependence Has daytime drowsiness Pulmonary nodules Moderate recurrent major depression Dyspnea Hand pain Skin lesion Leg pain, bilateral Dyslipidemia Epigastric pain Essential hypertension Cervical cancer screening GERD (gastroesophageal reflux disease) HTN (hypertension) Migraine Anxiety Depression Right lower quadrant pain Fibromyalgia Surgical History Previous section History of breast lump/mass excision History of lithotripsy H/O LEEP H/O tubal ligation Family History Father Myocardial infarction Mother Lung cancer Brother Liver cancer Maternal Grandfather Stomach cancer Maternal Grandmother No problems noted. Social History Housing: Apartment Alcohol intake: never Patient Tobacco Use Status: Current someday Tobacco user Tobacco use type: Cigarette Cigarettes Per Day: 3 e-Cigarette/Vaping Use: Never Used Second Hand Smoke Exposure: No service: No Current occupational status: disabled Gender identity: Female Cognitive needs: No Hearing needs: No Vision needs: No Female Reproductive History Menstrual Age of Menarche: 9 Review of Systems Const All systems reviewed & are unremarkable except as noted in HPI and below Physical Exam Vital Signs: Last Vital Signs Pulse 94 02/27/24 16:06 BP 126/80 02/27/24 16:06 Pulse Ox 98 02/27/24 16:06 Oxygen Delivery Method Room Air 02/27/24 16:06 BMI result Body Mass Index 29.1 Const General: cooperative, healthy appearing, comfortable and no acute distress Orientation/consciousness: patient oriented x3 Limitations: no limitations HEENT Head: Yes normal to inspection Ears: hearing grossly normal bilaterally, external ears normal and TM's normal bilaterally General nose exam: Normal external nose present, Normal nares present and No nasal discharge present Face and sinus: Yes normal facial exam and Yes sinus tenderness Mouth: Normal oral and palatal mucosa present and moist mucous membranes Throat: Yes tonsils normal, Yes uvula midline and Yes posterior oropharynx abnormal (Erythema) Eyes General: appearance normal, both eyes and all related structures Neck Neck: Yes normal visual inspection Resp Effort & Inspection: normal respiratory effort, able to speak in complete sentences, no respiratory distress, not tachypneic, no tripod positioning and no use of accessory muscles Skin General skin exam: no rashes or lesions noted Neuro General: patient oriented x3 Extrem General: Yes normal to inspection and Yes no clubbing, cyanosis or edema Assessment & Plan Assessment & Plan (1) Allergic sinusitis: Code(s): J30.9 - Allergic rhinitis, unspecified Plan: Recommended patient start using a Neti pot with distilled water as well as increasing her Claritin to Xyzal daily, I did send some Flonase to her pharmacy as well as hydroxyzine to relieve the itching before she goes to bed at night. If her symptoms persist, she should follow up with her PCP and perhaps think about rehoming the kitten. Plan see above Orders: Orders SARS-CoV2/FLU/RSV Today J06.9 - Acute upper respiratory infection, unspecified Medications: New hydroxyzine HCl 10 mg PO QID PRN 10 tabs 0RF itching Refilled fluticasone propionate 50 mcg/actuation (Flonase Allergy Relief) administer into each nostril 2 sprays intranasal Q12H 30 days 16 grams 0RF R09.81 - Nasal congestion Discontinued potassium chloride ER Discontinued Reason: Doctor's Order 20 mEq PO DAILY 30 days 30 tabs 2RF Coding Level of Care Code Est Pt Level 4 (97800) Diagnoses Allergic sinusitis J30.9
[2024-02-27 16:06] VITALS: BP 126/80; PULSE 94; O2SAT 98; BMI 29.1
== END 2024-02-27 16:38 | disposition home or self-care (01) ==
PROVIDERS: PCP Internal Medicine; Visit Provider Physician Assistant
DX: J30.9 Allergic rhinitis, unspecified (principal)
CPT/HCPCS: 99214

== ENCOUNTER 2024-02-27 16:11 | Outpatient (REF) | payer OTHER, SELFPAY ==
[2024-02-28 14:18] LABS: Influenza A PCR NEGATIVE (Negative); Influenza B PCR NEGATIVE (Negative); Resp Syncy Virus RNA Qual PCR NEGATIVE (Negative); SARS COV2 PCR INHOUSE NEGATIVE (Negative)
== END 2024-02-27 16:12 | disposition home or self-care (01) ==
LOC: HO.LAB 16:11
PROVIDERS: Visit Provider Physician Assistant
DX: J06.9 Acute upper respiratory infection, unspecified (principal)
CPT/HCPCS: 0241U

== ENCOUNTER 2024-03-17 23:05 | Emergency (ER) | payer OTHER, SELFPAY ==
--- NOTE | ~2024-03-17 | XR_ITS ---
EXAMINATION: XR CHEST CLINICAL INFORMATION: Chest pain COMPARISON: Chest radiograph 02/20/2024. Chest radiograph 09/22/2020. TECHNIQUE: Frontal view of the chest was obtained. FINDINGS: Mild aortic calcific atherosclerosis. Normal heart size. No effusions or pneumothoraces. No focal pulmonary consolidation. 5 mm well-circumscribed nodule within the peripheral right middle lung zone similar findings present for 01/04/2021 most suspicious for a chronic calcified pulmonary granuloma. XR/XR chest 1V IMPRESSION: No acute cardiopulmonary abnormalities. Electronically signed by: Tato Luis MD 03/18/2024 12:25 AM EDT
[2024-03-17 23:20] VITALS: BP 135/87; PULSE 84; RESP 16; TEMP 36.7; O2SAT 98; BMI 28.7
--- NOTE | 2024-03-17 23:26 | ECG_ITS ---
Test Reason : CHEST PAIN Blood Pressure : / mmHG Vent. Rate : 080 BPM Atrial Rate : 080 BPM P-R Int : 138 ms QRS Dur : 074 ms QT Int : 380 ms P-R-T Axes : 032 012 006 degrees QTc Int : 438 ms Normal sinus rhythm Normal ECG When compared with ECG of 20-FEB-2024 15:09, No significant change was found Referred By: Generic ED Physician Electronically Signed By:YOLY GUERRERO
--- NOTE | 2024-03-17 23:35 | MHC.EDTECH ---
pt states that she does not want blood work done now
== END 2024-03-18 01:09 | disposition left against medical advice (07) ==
PROVIDERS: Emergency Provider Emergency Medicine; PCP Internal Medicine
DX: R51.9 Headache, unspecified (principal); R42 Dizziness and giddiness; R07.9 Chest pain, unspecified
CPT/HCPCS: 71045; 93005; 99281; 99283

== ENCOUNTER 2024-03-30 20:11 | Emergency (ER) | payer OTHER, SELFPAY ==
--- NOTE | ~2024-03-30 | XR_ITS ---
EXAMINATION: XR CHEST CLINICAL INFORMATION: Coughing COMPARISON: 03/17/2024 TECHNIQUE: Frontal view of the chest was obtained. FINDINGS: Normal cardiomediastinal silhouette. No consolidation, pleural effusion or pneumothorax. Calcified granuloma in the right upper lobe. XR/XR chest 1V IMPRESSION: No acute cardiopulmonary process. Electronically signed by: Sylvester Cruz MD 03/30/2024 08:57 PM EDT RP
[2024-03-30 20:15] VITALS: BP 143/67; PULSE 85; RESP 19; TEMP 36.6; O2SAT 99; BMI 29.7
--- NOTE | 2024-03-30 20:19 | ED_ITS ---
HPI - General Adult General Chief complaint: Upper Respiratory Symptoms Stated complaint: URI History of Present Illness HPI narrative: Patient left without completion of treatment by ED provider. Related Data Previous Rx's ?Medication ?Instructions ?Recorded blood pressure monitor (Blood #1 ea 09/06/22 Pressure Kit) cane #1 ea 09/06/22 acetaminophen 500 mg tablet 1,000 mg (2 x 500 mg) PO TID PRN 10/07/22 pain #20 tabs cholecalciferol (vitamin D3) 50 50 mcg PO DAILY 90 days #90 tabs 03/28/23 mcg (2,000 unit) tablet underpads (Bed Underpads) #100 ea 03/28/23 walker #1 ea 03/28/23 galcanezumab-gnlm 120 mg/mL 120 mg subcut ONCE 30 days #1 mL 04/20/23 subcutaneous pen injector (Emgality Pen) magnesium oxide 400 mg (241.3 mg 400 mg PO BEDTIME 30 days #30 tabs 04/20/23 magnesium) tablet riboflavin (vitamin B2) 400 mg 400 mg PO DAILY 30 days #30 tabs 04/20/23 tablet fluticasone furoate 50 1 inh inhalation DAILY 30 days #30 06/22/23 mcg/actuation blister powder for ea inhalation (Arnuity Ellipta) albuterol sulfate 90 mcg/actuation 2 puff PO Q4H PRN bronchospasm 30 06/27/23 aerosol inhaler days #8.5 grams ipratropium 20 mcg-albuterol 100 1 puff PO QID 30 days #25 mL 10/18/23 mcg/actuation mist for inhalation (Combivent Respimat) fenofibrate 54 mg tablet 54 mg PO DAILY 90 days #90 tabs 10/24/23 albuterol sulfate 2.5 mg/0.5 mL 5 mg inhalation Q4H PRN shortness 11/12/23 solution for nebulization of breath or wheezing #30 ea albuterol sulfate 90 mcg/actuation 2 puff inhalation Q4-6H PRN 11/12/23 aerosol inhaler shortness of breath or wheezing #6.7 grams meclizine 12.5 mg tablet 12.5 mg PO TID PRN dizziness #14 11/21/23 tabs loratadine 10 mg tablet 10 mg PO DAILY PRN for allergies 12/01/23 30 days #30 tabs sjeicqtctr-mlwnboefcjvxp-ztatcdbi 1 cap PO Q4-6H PRN headache #10 12/02/23 50 mg-300 mg-40 mg capsule caps (Fioricet) clobetasol 0.05 % topical cream 1 appl topical BID 2 weeks #30 01/03/24 grams cyclobenzaprine 10 mg tablet 10 mg PO TID PRN muscle spasm #15 01/05/24 tabs lidocaine 5 % topical patch 1 patch topical DAILY #30 ea 01/05/24 (Lidoderm) naloxone 10 mg/0.4 mL 2 mg (0.08 mL) subcut Q3M 30 days 01/09/24 injection,auto-injector #4 mL clonazepam 0.5 mg tablet 0.5 mg PO BEDTIME PRN anxiety 30 01/21/24 days #60 tabs atorvastatin 20 mg tablet 20 mg PO BEDTIME 90 days #90 tabs 02/11/24 venlafaxine 37.5 mg 37.5 mg PO BEDTIME 90 days #90 caps 02/11/24 capsule,extended release 24 hr tramadol 50 mg tablet 50 mg PO BID PRN severe pain 02/19/24 (scale score 7-10) 30 days #60 tabs fluticasone propionate 50 2 spray intranasal Q12H 30 days 02/27/24 mcg/actuation nasal #16 grams spray,suspension (Flonase Allergy Relief) hydroxyzine HCl 10 mg tablet 10 mg PO QID PRN itching #10 tabs 02/27/24 hydrochlorothiazide 25 mg tablet 25 mg PO DAILY #90 tabs 03/22/24 Allergies Allergy/AdvReac Type Severity Reaction Status Date / Time amitriptyline Allergy Intermediate headache Verified 03/30/24 20:16 ibuprofen [From Motrin] Allergy Intermediate ITCHY RASH Verified 03/30/24 20:16 gabapentin AdvReac Intermediate vomiting Verified 03/30/24 20:16 [facility] Past Medical History Medical History Acute maxillary sinusitis Otitis externa Hospital discharge follow-up Microscopic hematuria Physical exam Goiter Blurry vision Tobacco dependence Has daytime drowsiness Pulmonary nodules Moderate recurrent major depression Dyspnea Hand pain Skin lesion Leg pain, bilateral Dyslipidemia Epigastric pain Essential hypertension Cervical cancer screening GERD (gastroesophageal reflux disease) HTN (hypertension) Migraine Anxiety Depression Right lower quadrant pain Fibromyalgia Surgical History Previous section History of breast lump/mass excision History of lithotripsy H/O LEEP H/O tubal ligation Family History Family History Father Myocardial infarction Mother Lung cancer Brother Liver cancer Maternal Grandfather Stomach cancer Maternal Grandmother No problems noted. Social History Social History Housing: Apartment Alcohol intake: never Patient Tobacco Use Status: Current someday Tobacco user Tobacco use type: Cigarette Cigarettes Per Day: 3 e-Cigarette/Vaping Use: Never Used Second Hand Smoke Exposure: No Advance Directives: No Advance Directives Information Provided: No Do you have a plan to hurt others: No Plan service: No Current occupational status: disabled Gender identity: Female Cognitive needs: No Hearing needs: No Vision needs: No Physical Exam ED Vital Signs: Vital Signs - 24 hr 03/30/24 20:15 Temperature 97.8 F Pulse Rate 85 Respiratory Rate 19 Blood Pressure 143/67 H Pulse Oximetry 99 Oxygen Delivery Method Room Air BMI result Body Mass Index 29.7 Course Course Course Narrative: RME: [employer]One by MARLENA Villalta. 53-year-old female presents to ED for cough, shortness of breath, sinus pain, headaches, and body aches for a couple of days. Lungs are clear. Chest x-ray strep SARs ordered. Medical Decision Making Lab Data Labs: Lab Results 03/30/24 Range/Units 20:29 Influenza Type A (PCR) NEGATIVE (Negative) Influenza Type B (PCR) NEGATIVE (Negative) RSV RNA Qual (PCR) NEGATIVE (Negative) SARS-CoV-2 RNA (RT-PCR) NEGATIVE (Negative) S. pyogenes GrpA DATNE Negative (Negative) Discharge Plan Discharge Clinical Impression: Cough Patient Disposition: Left W/O Completing Treatment Prescriptions: No Action (DME) blood pressure monitor [Blood Pressure Kit] Kit See Rx Instructions .ROUTE .MEDSUPPLY Qty: 1 0RF Rx Instructions: As directed (DME) cane Device See Rx Instructions .Route Qty: 1 0RF Rx Instructions: As directed (DME) walker Misc See Rx Instructions .Route Qty: 1 0RF Rx Instructions: To be use lifetime (DME) underpads [Bed Underpads] Pad See Rx Instructions .Route Qty: 100 0RF Rx Instructions: As directed Arnuity Ellipta 50 mcg/actuation blister with device 1 inh inhalation DAILY 30 Days Qty: 30 6RF albuterol sulfate 90 mcg/actuation HFA aerosol inhaler 2 puff PO Q4H PRN (Reason: bronchospasm) 30 Days Qty: 8.5 6RF Combivent Respimat 20-100 mcg/actuation mist 1 puff PO QID 30 Days Qty: 25 1RF Patient Comments: Pulmo given fenofibrate 54 mg tablet 54 mg PO DAILY 90 Days Qty: 90 1RF loratadine 10 mg tablet 10 mg PO DAILY PRN (Reason: for allergies) 30 Days Qty: 30 1RF fmdijvtqua-uuaupwrrsyryi-wrvx [Fioricet] 50-300-40 mg capsule 1 cap PO Q4-6H PRN (Reason: headache) Qty: 10 0RF naloxone 10 mg/0.4 mL auto-injector 2 mg subcut Q3M 30 Days Qty: 4 0RF Rx Instructions: until desired response clonazepam 0.5 mg tablet 0.5 mg PO BEDTIME PRN (Reason: anxiety) 30 Days Qty: 60 1RF atorvastatin 20 mg tablet 20 mg PO BEDTIME 90 Days Qty: 90 1RF venlafaxine 37.5 mg capsule,extended release 24hr 37.5 mg PO BEDTIME 90 Days Qty: 90 1RF tramadol 50 mg tablet 50 mg PO BID PRN (Reason: severe pain (scale score 7-10)) 30 Days Qty: 60 0RF hydrochlorothiazide 25 mg tablet 25 mg PO DAILY Qty: 90 3RF acetaminophen 500 mg tablet 1,000 mg PO TID PRN (Reason: pain) Qty: 20 0RF lidocaine [Lidoderm] 5 % adhesive patch,medicated 1 patch topical DAILY Qty: 30 0RF Rx Instructions: leave on most painful area for up to 12 hrs cyclobenzaprine 10 mg tablet 10 mg PO TID PRN (Reason: muscle spasm) Qty: 15 0RF albuterol sulfate 90 mcg/actuation HFA aerosol inhaler 2 puff inhalation Q4-6H PRN (Reason: shortness of breath or wheezing) Qty: 6.7 0RF albuterol sulfate 2.5 mg/0.5 mL solution for nebulization 5 mg inhalation Q4H PRN (Reason: shortness of breath or wheezing) Qty: 30 0RF meclizine 12.5 mg tablet 12.5 mg PO TID PRN (Reason: dizziness) Qty: 14 0RF cholecalciferol (vitamin D3) 50 mcg (2,000 unit) tablet 50 mcg PO DAILY 90 Days Qty: 90 1RF clobetasol 0.05 % cream 1 appl topical BID 14 Days Qty: 30 0RF hydroxyzine HCl 10 mg tablet 10 mg PO QID PRN (Reason: itching) Qty: 10 0RF fluticasone propionate [Flonase Allergy Relief] 50 mcg/actuation spray ,suspension 2 spray intranasal Q12H 30 Days Qty: 16 0RF Rx Instructions: administer into each nostril Emgality Pen 120 mg/mL pen injector 120 mg subcut ONCE 30 Days Qty: 1 6RF magnesium oxide 400 mg (241.3 mg magnesium) tablet 400 mg PO BEDTIME 30 Days Qty: 30 6RF Rx Instructions: may hold for loose stools riboflavin (vitamin B2) 400 mg tablet 400 mg PO DAILY 30 Days Qty: 30 6RF Discharge Date/Time: 03/30/24 23:03
[2024-03-30 20:52] LABS: IDNOW Serial# 08D9AD1C; Strep A Nucleic Acid Negative (Negative)
[2024-03-30 21:11] LABS: Influenza A PCR NEGATIVE (Negative); Influenza B PCR NEGATIVE (Negative); Resp Syncy Virus RNA Qual PCR NEGATIVE (Negative); SARS COV2 PCR INHOUSE NEGATIVE (Negative)
--- NOTE | 2024-03-30 23:02 | PC.NURSE ---
PT wanted to leave wanted to get home and tire of waiting for provider pickup.
== END 2024-03-30 23:03 | disposition left against medical advice (07) ==
PROVIDERS: Physician Assistant; Emergency Provider Emergency Medicine; PCP Internal Medicine
DX: R05.9 Cough, unspecified (principal); R06.02 Shortness of breath; F17.210 Nicotine dependence, cigarettes, uncomplicated; Z79.899 Other long term (current) drug therapy; Z03.818 Encounter for observation for suspected exposure to other biological agents ruled out
CPT/HCPCS: 0241U; 71045; 87651; 99283

== ENCOUNTER 2024-04-03 16:41 | Outpatient (AMB) | payer OTHER, SELFPAY ==
[2024-04-03 16:49] VITALS: BP 132/80; BMI 28.9
--- NOTE | 2024-04-03 16:49 | A.OFFPC_ITS ---
Vital Signs 04/03/24 16:49 Height 5 ft 1 in Weight 153 lb BMI 28.9 BP 132/80 Blood Pressure Location Lt brachial Position Sitting Intake Visit Reasons: joint pain, needs 30 minutes Intake Note: Patient here for a follow up Joint pain, wheezing Information Assurance Officer Required: No Accompanied by: Self / Same As Patient Allergies amitriptyline Allergy (Intermediate, Verified 04/03/24 17:09) headache ibuprofen [From Motrin] Allergy (Intermediate, Verified 04/03/24 17:09) ITCHY RASH gabapentin Adverse Reaction (Intermediate, Verified 04/03/24 17:09) vomiting Medication List - Last Reconciled 04/03/24 by Neyda Peres MD acetaminophen 1,000 mg (2 x 500 mg) PO TID PRN albuterol sulfate 90 mcg/actuation 2 puffs inhalation Q4-6H PRN albuterol sulfate 5 mg inhalation Q4H PRN atorvastatin 20 mg PO BEDTIME 90 days blood pressure monitor (Blood Pressure Kit) As directed kqgsepqhxt-oyzkoiqrcoegl-zeyc 50-300-40 mg (Fioricet) 1 cap PO Q4-6H PRN cane As directed cholecalciferol (vitamin D3) 50 mcg PO DAILY 90 days clobetasol 0.05% 1 appl topical BID 2 weeks clonazepam 0.5 mg PO BEDTIME PRN 30 days cyclobenzaprine 10 mg PO TID PRN fenofibrate 54 mg PO DAILY 90 days fluticasone furoate 50 mcg/actuation (Arnuity Ellipta) 1 inh inhalation DAILY 30 days fluticasone propionate 50 mcg/actuation (Flonase Allergy Relief) 2 sprays intranasal Q12H 30 days galcanezumab-gnlm (Emgality Pen) 120 mg subcut ONCE 30 days hydrochlorothiazide 25 mg PO DAILY hydroxyzine HCl 10 mg PO QID PRN ipratropium-albuterol 20-100 mcg/actuation (Combivent Respimat) 1 puff PO QID 30 days lidocaine 5% (Lidoderm) 1 patch topical DAILY loratadine 10 mg PO DAILY PRN 30 days magnesium oxide 400 mg PO BEDTIME 30 days meclizine 12.5 mg PO TID PRN naloxone 2 mg (0.08 mL) subcut Q3M 30 days riboflavin (vitamin B2) 400 mg PO DAILY 30 days tramadol 50 mg PO BID PRN 30 days underpads (Bed Underpads) As directed venlafaxine ER 37.5 mg PO BEDTIME 90 days walker To be use lifetime Tobacco use date assessed: 02/19/24 Dental Screening Dental Screen Date: 02/19/24 HPI HPI Comments History of Present Illness Details This is a 53-year-old female with moderate asthma, moderate major depression, mixed hyperlipidemia and mild tramadol use disorder that today for follow-up on her conditions. She stopped taking hydrochlorothiazide and blood pressure is stable. Blood pressure will be recheck in 3 weeks by nurse navigator. She has been using more rescue inhaler and is asking for a nebulizer and albuterol solution. On venlafaxine for her depression. On statins and fibrates for her mixed hyperlipidemia has been stable. With did count tramadol and benzodiazepine and the count was correct. She also has chronic migraines without aura follow by Neurology that has not significantly changed from last office visit. [facility] Medical History (Updated 04/05/24 @ 08:08 by Neyda Peres MD) Acute maxillary sinusitis Otitis externa Hospital discharge follow-up Microscopic hematuria Physical exam Goiter Blurry vision Tobacco dependence Has daytime drowsiness Pulmonary nodules Moderate recurrent major depression Dyspnea Hand pain Skin lesion Leg pain, bilateral Dyslipidemia Epigastric pain Essential hypertension Cervical cancer screening GERD (gastroesophageal reflux disease) HTN (hypertension) Migraine Anxiety Depression Right lower quadrant pain Fibromyalgia Surgical History Previous section History of breast lump/mass excision History of lithotripsy H/O LEEP H/O tubal ligation Family History Father Myocardial infarction Mother Lung cancer Brother Liver cancer Maternal Grandfather Stomach cancer Maternal Grandmother No problems noted. Social History Housing: Apartment Alcohol intake: never Patient Tobacco Use Status: Current someday Tobacco user Tobacco use type: Cigarette Cigarettes Per Day: 3 e-Cigarette/Vaping Use: Never Used Second Hand Smoke Exposure: No service: No Current occupational status: disabled Gender identity: Female Cognitive needs: No Hearing needs: No Vision needs: No Female Reproductive History Menstrual Age of Menarche: 9 Questionnaire Thrive Questionnaire Date Thrive assessed: 02/19/24 JOHN-7 AMB Questionnaire JOHN-7 Date JOHN - 7 assessed: 02/19/24 Source: Developed by Drs. Sylvester Merlos, Eve Mcclelland, Joby King and colleagues, with an educational pili from [employer]. Review of Systems Const All systems reviewed & are unremarkable except as noted in HPI and below Reports headache(s) ENT Reports headache(s) Card Denies chest pain at rest, Denies chest pain with activity, Denies edema, Denies irregular heart rhythm, Denies claudication, Denies dyspnea, Denies dyspnea on exertion, Denies orthopnea, Denies paroxysmal nocturnal dyspnea and Denies slow heart rate Resp Denies cough, Denies dyspnea and Denies dyspnea on exertion GI Denies abdominal pain, Denies change in bowel habits, Denies excessive flatus, Denies nausea and Denies vomiting Denies urinary incontinence, Denies urinary hesitancy and Denies urinary urgency Musc Denies atrophy, Denies deformity, Reports arthralgias and Denies limited range of motion Neuro Reports headache(s) Physical exam (Primary Care) Vital Signs: Last Vital Signs BP 132/80 04/03/24 16:49 BMI result Body Mass Index 28.9 Tobacco/Smoking Status: Tobacco use Status Tobacco use date assessed 02/19/24 04/03/24 16:55 Patient Tobacco Use Status Current someday Tobacco 04/03/24 16:55 Tobacco use type Cigarette 04/03/24 16:55 e-Cigarette/Vaping Use Never Used 04/03/24 16:55 Thrive Assessment: Date of Thrive Assessment Date Thrive assessed 02/19/24 04/03/24 16:55 Resp Effort & Inspection: normal respiratory effort Auscultation: clear to auscultation bilaterally Cardio Jugular venous distension: no JVD Rate: regular rate Rhythm: regular rhythm Heart sounds: S1 normal heart sound present and S2 normal heart sound present Extrem General: Yes full ROM Office Procedures Flu Questionnaire Does the patient have a severe egg allergy?: No Immunizations Fluarix Triv 8830-2118 (PF) 45 mcg (15 mcg x 3)/0.5 mL IM syringe Performing Provider: Neyda Peres MD [facility] Documented (not given) by: LENKA Valderrama on 04/03/24 16:58 Reason Not Given: Patient Refused Coding Level of Care Code Est Pt Level 4 (55635) Complex EM visit Add On G2211 Diagnoses Moderate major depression F32.1 Mild tramadol use disorder F11.10 Chronic migraine without aura without status migrainosus, not intractable G43.709 Status migrainosus presence: without status migrainosus Intractability: not intractable Mixed hyperlipidemia E78.2 Time Spent (min) 25 Assessment & Plan Assessment & Plan (1) Moderate major depression: Code(s): F32.1 - Major depressive disorder, single episode, moderate Category: Medical Plan: Continue venlafaxine. (2) Mild tramadol use disorder: Comment: Pain management contract signed 01/03/2024 and urine toxicology done. Code(s): F11.10 - Opioid abuse, uncomplicated Category: Medical Plan: Pill count today was correct. Continue the use of tramadol. (3) Chronic migraine without aura: Code(s): G43.709 - Chronic migraine without aura, not intractable, without status migrainosus Category: Medical Qualifiers: Status migrainosus presence: without status migrainosus Intractability: not intractable Qualified Code(s): G43.709 - Chronic migraine without aura, not intractable, without status migrainosus Plan: Continue magnesium and Emgality. Follow-up with Neurology. (4) Mixed hyperlipidemia: Code(s): E78.2 - Mixed hyperlipidemia Category: Medical Plan: Continue statins and fibrates. Continue low-cholesterol diet Orders: Orders Influenza [id number] Immunization 04/03/24 Z23 - Encounter for immunization Medications: New nebulizers (AeroEclipse II Nebulizer) As directed 1 ea 0RF J45.909 - Unspecified asthma, uncomplicated fluocinolone acetonide oil 0.01% (DermOtic Oil) 5 drps otic (ears) BID 20 mL 0RF 7 days albuterol sulfate 2.5 mg (3 mL) inhalation Q6H PRN 360 mL 0RF bronchospasm 30 days Discontinued hydrochlorothiazide Discontinued Reason: Patient Completed Course 25 mg PO DAILY 90 tabs 3RF
== END 2024-04-03 17:20 | disposition home or self-care (01) ==
PROVIDERS: PCP Internal Medicine; Visit Provider Internal Medicine
DX: F32.1 Major depressive disorder, single episode, moderate (principal); F11.10 Opioid abuse, uncomplicated; G43.709 Chronic migraine without aura, not intractable, without status migrainosus; E78.2 Mixed hyperlipidemia

== ENCOUNTER → 2024-04-03 16:41 | Outpatient (BNVA) | payer OTHER, SELFPAY | PROVIDERS: PCP Internal Medicine; Visit Provider Internal Medicine | DX: F32.1 Major depressive disorder, single episode, moderate (principal); E78.2 Mixed hyperlipidemia; G43.709 Chronic migraine without aura, not intractable, without status migrainosus; F11.10 Opioid abuse, uncomplicated; Z79.899 Other long term (current) drug therapy; Z28.21 Immunization not carried out because of patient refusal | CPT/HCPCS: 90471; 99212 ==

== ENCOUNTER 2024-04-15 15:46 | Emergency (ER) | payer OTHER, SELFPAY ==
[2024-04-15 15:51] VITALS: BP 146/92; PULSE 84; RESP 18; O2SAT 98; BMI 29.5
--- NOTE | 2024-04-15 15:52 | ED.URI ---
HPI - URI/Sore Throat General Chief Complaint: Nausea/Vomiting/Diarrhea Stated Complaint: Body aches, nausea Time Seen by Provider: 04/15/24 17:42 History of Present Illness ED Provider: Bro MEDINA Narrative: The patient is a 53-year-old woman. She says that she has a history of fibromyalgia. She says that 3 days ago she had some tightness in her chest. It was uncomfortable. She had an old oxycodone that has been prescribed following a dental procedure. She took a dose of this. After taking the dose of oxycodone she developed body aches and a headache and some nausea. She contacted her PCP who thought that she might be having some kind of an anxiety reaction. The patient took an anxiety medication but did not feel that much better. Today she still felt unwell and called her doctor and she was advised to come to the emergency room. No definite fever. She says that she has had nausea. She says she vomited yesterday. Related Data Previous Rx's ?Medication ?Instructions ?Recorded blood pressure monitor (Blood #1 ea 09/06/22 Pressure Kit) cane #1 ea 09/06/22 acetaminophen 500 mg tablet 1,000 mg (2 x 500 mg) PO TID PRN 10/07/22 pain #20 tabs cholecalciferol (vitamin D3) 50 50 mcg PO DAILY 90 days #90 tabs 03/28/23 mcg (2,000 unit) tablet underpads (Bed Underpads) #100 ea 03/28/23 walker #1 ea 03/28/23 galcanezumab-gnlm 120 mg/mL 120 mg subcut ONCE 30 days #1 mL 04/20/23 subcutaneous pen injector (Emgality Pen) magnesium oxide 400 mg (241.3 mg 400 mg PO BEDTIME 30 days #30 tabs 04/20/23 magnesium) tablet riboflavin (vitamin B2) 400 mg 400 mg PO DAILY 30 days #30 tabs 04/20/23 tablet fluticasone furoate 50 1 inh inhalation DAILY 30 days #30 06/22/23 mcg/actuation blister powder for ea inhalation (Arnuity Ellipta) ipratropium 20 mcg-albuterol 100 1 puff PO QID 30 days #25 mL 10/18/23 mcg/actuation mist for inhalation (Combivent Respimat) fenofibrate 54 mg tablet 54 mg PO DAILY 90 days #90 tabs 10/24/23 albuterol sulfate 2.5 mg/0.5 mL 5 mg inhalation Q4H PRN shortness 11/12/23 solution for nebulization of breath or wheezing #30 ea albuterol sulfate 90 mcg/actuation 2 puff inhalation Q4-6H PRN 11/12/23 aerosol inhaler shortness of breath or wheezing #6.7 grams meclizine 12.5 mg tablet 12.5 mg PO TID PRN dizziness #14 11/21/23 tabs loratadine 10 mg tablet 10 mg PO DAILY PRN for allergies 12/01/23 30 days #30 tabs bazkjtqyyz-nwftriomfdmdp-kvycdyqw 1 cap PO Q4-6H PRN headache #10 12/02/23 50 mg-300 mg-40 mg capsule caps (Fioricet) clobetasol 0.05 % topical cream 1 appl topical BID 2 weeks #30 01/03/24 grams cyclobenzaprine 10 mg tablet 10 mg PO TID PRN muscle spasm #15 01/05/24 tabs lidocaine 5 % topical patch 1 patch topical DAILY #30 ea 01/05/24 (Lidoderm) naloxone 10 mg/0.4 mL 2 mg (0.08 mL) subcut Q3M 30 days 01/09/24 injection,auto-injector #4 mL clonazepam 0.5 mg tablet 0.5 mg PO BEDTIME PRN anxiety 30 01/21/24 days #60 tabs atorvastatin 20 mg tablet 20 mg PO BEDTIME 90 days #90 tabs 02/11/24 venlafaxine 37.5 mg 37.5 mg PO BEDTIME 90 days #90 caps 02/11/24 capsule,extended release 24 hr tramadol 50 mg tablet 50 mg PO BID PRN severe pain 02/19/24 (scale score 7-10) 30 days #60 tabs fluticasone propionate 50 2 spray intranasal Q12H 30 days 02/27/24 mcg/actuation nasal #16 grams spray,suspension (Flonase Allergy Relief) hydroxyzine HCl 10 mg tablet 10 mg PO QID PRN itching #10 tabs 02/27/24 albuterol sulfate 2.5 mg/3 mL 2.5 mg (3 mL) inhalation Q6H PRN 04/03/24 (0.083 %) solution for nebulization bronchospasm 30 days #360 mL fluocinolone acetonide oil 0.01 % 5 drp otic (ears) BID 7 days #20 mL 04/03/24 ear drops (DermOtic Oil) nebulizers (AeroEclipse II #1 ea 04/03/24 Nebulizer) ondansetron 4 mg disintegrating 4 mg PO Q6H PRN nausea and 04/15/24 tablet vomiting #10 tabs Allergies Allergy/AdvReac Type Severity Reaction Status Date / Time amitriptyline Allergy Intermediate headache Verified 04/15/24 15:56 ibuprofen [From Motrin] Allergy Intermediate ITCHY RASH Verified 04/15/24 15:56 gabapentin AdvReac Intermediate vomiting Verified 04/15/24 15:56 Review of Systems Review of Systems: Yes all other systems are reviewed and are negative FORMERLY [facility], [facility] Past Medical History Medical History Acute maxillary sinusitis Otitis externa Hospital discharge follow-up Microscopic hematuria Physical exam Goiter Blurry vision Tobacco dependence Has daytime drowsiness Pulmonary nodules Moderate recurrent major depression Dyspnea Hand pain Skin lesion Leg pain, bilateral Dyslipidemia Epigastric pain Essential hypertension Cervical cancer screening GERD (gastroesophageal reflux disease) HTN (hypertension) Migraine Anxiety Depression Right lower quadrant pain Fibromyalgia Surgical History Previous section History of breast lump/mass excision History of lithotripsy H/O LEEP H/O tubal ligation Family History Family History Father Myocardial infarction Mother Lung cancer Brother Liver cancer Maternal Grandfather Stomach cancer Maternal Grandmother No problems noted. Social History Social History Housing: Apartment Alcohol intake: never Patient Tobacco Use Status: Current someday Tobacco user Tobacco use type: Cigarette Cigarettes Per Day: 3 Smoked in Last 30 Days: Yes e-Cigarette/Vaping Use: Never Used Second Hand Smoke Exposure: No Use of substances other than those prescribed or required for medical reasons: No Advance Directives: No Advance Directives Information Provided: Yes Do you have a plan to hurt others: No Plan Patient : No service: No Current occupational status: disabled Gender identity: Female Cognitive needs: No Hearing needs: No Vision needs: No Physical Exam Vital Signs: Vital Signs: Last Vital Signs Temp 97.8 F 04/15/24 18:30 Pulse 72 04/15/24 18:30 Resp 18 04/15/24 18:30 BP 130/72 04/15/24 18:30 Pulse Ox 98 04/15/24 18:30 O2 Del Method Room Air 04/15/24 18:30 BMI result Body Mass Index 29.5 Const: Other: The patient is awake, alert, pleasant, cooperative. She does not appear in any distress. HEENT: Other: Face is symmetrical. Mucous membranes moist. Eyes: General: appearance normal, both eyes and all related structures Neck: Neck: Yes no JVD Resp: Effort & Inspection: normal respiratory effort Auscultation: clear to auscultation bilaterally Cardio: Rate: regular rate Rhythm: regular rhythm Heart sounds: S1 normal heart sound present and S2 normal heart sound present GI: Other: Abdomen is soft and nontender Skin: Other: Skin is dry and unremarkable Neuro: Other: The patient is awake and alert with a normal mental status. Cranial nerves are grossly intact. She moves her extremities normally and appropriately. She seems neurologically intact. Extrem: Other: No asymmetry. No peripheral edema. Course Course Course Narrative: This is a Rapid Medical Exam performed in triage by Crissy Yang PA-C. Full HPI, ROS and PE to be performed by primary ED provider. 53-year-old female with a past medical history HTN, depression, GERD, migraines, fibromyalgia, presenting to the ED c/o nausea and vomiting after taking Oxycodone yesterday for Fibromyalgia pain. Also took Clonazepam for anxiety. Also reports chest pain, dizziness, epigastric abdominal pain & anxiety. PE: Nontoxic appearing, ambulating with steady gait, abdomen soft/nontender. Talking in complete sentences. No respiratory distress Plan: EKG, labs, CXR, viral testing Medications Administered Discontinued Medications Generic Name Dose Route Start Last Admin Trade Name Freq PRN Reason Stop Dose Admin Ondansetron HCl 4 mg 04/15/24 17:53 04/15/24 18:24 Ondansetron Odt 4 Mg Tab.[place] TRANSLINGU 04/15/24 17:54 4 mg ONCE ONE Administration Medical Decision Making Medical Decision Making [facility] Narrative: The patient is a 53-year-old woman who presents with a complaint of headaches, chills, body aches, and nausea. Clinically she looks quite well. Labs are unremarkable. I think she may be discharged to follow up with the regular doctor or return if worse. Lab Data 04/15/24 16:05 04/15/24 16:05 Labs: Lab Results 04/15/24 04/15/24 04/15/24 Range/Units 16:02 16:05 17:35 WBC 7.7 (4.8-10.8) X10*3/uL RBC 4.30 (4.20-5.50) X10*6/uL Hgb 11.8 L (12.0-16.0) g/dl Hct 35.7 L (37.0-47.0) % MCV 83.0 (80.0-98.0) fL MCH 27.4 (27.0-33.0) pg MCHC 33.1 (31.0-35.0) g/dl RDW 13.9 (11.0-16.0) % Plt Count 285 (160-400) X10*3/uL MPV 10.2 (9.4-12.3) fL Immature Gran % (Auto) 0.3 (0.0-0.4) % Neut % (Auto) 57.2 (45-73) % Lymph % (Auto) 33.6 (20-40) % [place] % (Auto) 6.5 (2-11) % Eos % (Auto) 1.8 (0-4) % Baso % (Auto) 0.6 (0-2) % Lymph # (Auto) 2.6 (1.2-4.9) X10*3/uL [place] # (Auto) 0.5 (0.1-1.2) X10*3/uL Eos # (Auto) 0.1 (0.0-0.4) X10*3/uL Baso # (Auto) 0.1 (0.0-0.2) X10*3/uL Abs Immat Gran (auto) 0.02 (0.00-0.03) X10*3/uL Absolute Neuts (auto) 4.4 (2.0-8.3) x10*3/uL Absolute Nucleated RBC 0.000 (0.0-0.012) X10*3/uL Nucleated RBC % (auto) 0.0 (0.0-0.2) /100WBC Sodium 143 (135-145) mmol/L Potassium 3.5 (3.3-5.1) mmol/L Chloride 108 (96-108) mmol/L Carbon Dioxide 25 (22-29) mmol/L Anion Gap 14 (12-20) BUN 13 (9-16) mg/dL Creatinine 0.94 (0.5-1.4) mg/dL Estim Creat Clear Calc 60.8 Estimated GFR > 60 Random Glucose 100 (60-115) mg/dL Calcium 9.6 (8.4-10.2) mg/dL Magnesium 1.8 (1.6-2.6) mg/dL Total Bilirubin 0.3 (0.0-1.0) mg/dL Direct Bilirubin 0.1 (0.0-0.5) mg/dL AST 20 (5-31) U/L ALT 12 (0-31) U/L Alkaline Phosphatase 98 (39-117) U/L Troponin I High Sens < 2.7 (<3.5-17.0) ng/L Total Protein 7.6 (6.5-8.0) g/dL Albumin 4.2 (3.5-5.0) g/dL Lipase 28 (8-78) U/L Urine Color Yellow Urine Appearance Clear Urine pH 6.5 (5.0-9.0) Ur Specific [place] 1.010 (1.005-1.025) Urine Protein Negative (Neg-Trace) mg/dL Urine Glucose (UA) Negative (Negative) mg/dL Urine Ketones Negative (Negative) mg/dL Urine Blood Small (1+) H (Negative) Urine Nitrite Negative (Negative) Ur Leukocyte Esterase Negative (Negative) Urine RBC 3-5 H (0-2) /HPF Urine WBC 0-5 (0-5) /HPF Ur Squamous Epith Cells 0-2 (0-2) /HPF Urine Bacteria None Seen (None Seen) Hyaline Casts 0-2 (0-2) /LPF Influenza Type A (PCR) NEGATIVE (Negative) Influenza Type B (PCR) NEGATIVE (Negative) RSV RNA Qual (PCR) NEGATIVE (Negative) SARS-CoV-2 RNA (RT-PCR) NEGATIVE (Negative) Independent Interpretation I performed an independent interpretation of an: EKG Interpretation: EKG at 16:03 shows normal sinus rhythm at 78 beats per minute. It is a normal EKG. Discharge Plan Discharge Clinical Impression: Body aches, Nausea Patient Disposition: Home, Self-Care Additional Instructions: Your testing in the emergency room today is reassuring. I have sent a prescription for medication for nausea to your pharmacy that you may use as needed. Prescriptions: New ondansetron 4 mg tablet,disintegrating 4 mg PO Q6H PRN (Reason: nausea and vomiting) Qty: 10 0RF No Action (DME) blood pressure monitor [Blood Pressure Kit] Kit See Rx Instructions .ROUTE .MEDSUPPLY Qty: 1 0RF Rx Instructions: As directed (DME) cane Device See Rx Instructions .Route Qty: 1 0RF Rx Instructions: As directed (DME) walker Misc See Rx Instructions .Route Qty: 1 0RF Rx Instructions: To be use lifetime (DME) underpads [Bed Underpads] Pad See Rx Instructions .Route Qty: 100 0RF Rx Instructions: As directed Arnuity Ellipta 50 mcg/actuation blister with device 1 inh inhalation DAILY 30 Days Qty: 30 6RF Combivent Respimat 20-100 mcg/actuation mist 1 puff PO QID 30 Days Qty: 25 1RF Patient Comments: Pulmo given fenofibrate 54 mg tablet 54 mg PO DAILY 90 Days Qty: 90 1RF loratadine 10 mg tablet 10 mg PO DAILY PRN (Reason: for allergies) 30 Days Qty: 30 1RF ouedcrcnux-jbchrynbcgmnf-rcdi [Fioricet] 50-300-40 mg capsule 1 cap PO Q4-6H PRN (Reason: headache) Qty: 10 0RF naloxone 10 mg/0.4 mL auto-injector 2 mg subcut Q3M 30 Days Qty: 4 0RF Rx Instructions: until desired response clonazepam 0.5 mg tablet 0.5 mg PO BEDTIME PRN (Reason: anxiety) 30 Days Qty: 60 1RF atorvastatin 20 mg tablet 20 mg PO BEDTIME 90 Days Qty: 90 1RF venlafaxine 37.5 mg capsule,extended release 24hr 37.5 mg PO BEDTIME 90 Days Qty: 90 1RF tramadol 50 mg tablet 50 mg PO BID PRN (Reason: severe pain (scale score 7-10)) 30 Days Qty: 60 0RF acetaminophen 500 mg tablet 1,000 mg PO TID PRN (Reason: pain) Qty: 20 0RF lidocaine [Lidoderm] 5 % adhesive patch,medicated 1 patch topical DAILY Qty: 30 0RF Rx Instructions: leave on most painful area for up to 12 hrs cyclobenzaprine 10 mg tablet 10 mg PO TID PRN (Reason: muscle spasm) Qty: 15 0RF albuterol sulfate 90 mcg/actuation HFA aerosol inhaler 2 puff inhalation Q4-6H PRN (Reason: shortness of breath or wheezing) Qty: 6.7 0RF albuterol sulfate 2.5 mg/0.5 mL solution for nebulization 5 mg inhalation Q4H PRN (Reason: shortness of breath or wheezing) Qty: 30 0RF meclizine 12.5 mg tablet 12.5 mg PO TID PRN (Reason: dizziness) Qty: 14 0RF cholecalciferol (vitamin D3) 50 mcg (2,000 unit) tablet 50 mcg PO DAILY 90 Days Qty: 90 1RF clobetasol 0.05 % cream 1 appl topical BID 14 Days Qty: 30 0RF hydroxyzine HCl 10 mg tablet 10 mg PO QID PRN (Reason: itching) Qty: 10 0RF fluticasone propionate [Flonase Allergy Relief] 50 mcg/actuation spray,suspension 2 spray intranasal Q12H 30 Days Qty: 16 0RF Rx Instructions: administer into each nostril Emgality Pen 120 mg/mL pen injector 120 mg subcut ONCE 30 Days Qty: 1 6RF magnesium oxide 400 mg (241.3 mg magnesium) tablet 400 mg PO BEDTIME 30 Days Qty: 30 6RF Rx Instructions: may hold for loose stools riboflavin (vitamin B2) 400 mg tablet 400 mg PO DAILY 30 Days Qty: 30 6RF fluocinolone acetonide oil [DermOtic Oil] 0.01 % drops 5 drp otic (ears) BID 7 Days Qty: 20 0RF (DME) nebulizers [AeroEclipse II Nebulizer] Misc See Rx Instructions .Route Qty: 1 0RF Rx Instructions: As directed albuterol sulfate 2.5 mg /3 mL (0.083 %) solution for nebulization 2.5 mg inhalation Q6H PRN (Reason: bronchospasm) 30 Days Qty: 360 0RF Referrals: Neyda Foster MD [Primary Care Provider] - (chills, nausea) Interventions: ED Discharge Assessment Last Done: 04/15/24 18:30 Discharge Date/Time: 04/15/24 18:31 Print Language: Kinyarwanda
--- NOTE | 2024-04-15 15:55 | ECG_ITS ---
Test Reason : CHEST PAIN Blood Pressure : / mmHG Vent. Rate : 078 BPM Atrial Rate : 078 BPM P-R Int : 136 ms QRS Dur : 076 ms QT Int : 372 ms P-R-T Axes : 049 011 012 degrees QTc Int : 424 ms Normal sinus rhythm Normal ECG When compared with ECG of 17-MAR-2024 23:23, No significant change was found Referred By: Crissy Yang Electronically Signed By:DAVON REVELES
[2024-04-15 16:16] LABS: MANUAL DIFF FLAG NO
[2024-04-15 16:18] LABS: Basophils Absolute Auto 0.1 X10*3/uL (0.0-0.2); Basophils Percent Auto 0.6 % (0-2); Eosinophils Absolute Auto 0.1 X10*3/uL (0.0-0.4); Eosinophils Percent Auto 1.8 % (0-4); Hematocrit 35.7 % (37.0-47.0); Hemoglobin 11.8 g/dl (12.0-16.0); Imm Gran Abs Auto 0.02 X10*3/uL (0.00-0.03); Imm Gran Pct Auto 0.3 % (0.0-0.4); Lymphocytes Absolute Auto 2.6 X10*3/uL (1.2-4.9); Lymphocytes Percent Auto 33.6 % (20-40); Mean Corpuscular HGB Conc 33.1 g/dl (31.0-35.0); Mean Corpuscular Hemoglobin 27.4 pg (27.0-33.0); Mean Platelet Volume 10.2 fL (9.4-12.3); Monocytes Absolute Auto 0.5 X10*3/uL (0.1-1.2); Monocytes Percent Auto 6.5 % (2-11); Neutrophils Absolute Auto 4.4 x10*3/uL (2.0-8.3); Neutrophils Percent Auto 57.2 % (45-73); Platelet Count 285 X10*3/uL (160-400); Red Cell Distribution Width 13.9 % (11.0-16.0); White Blood Count 7.7 X10*3/uL (4.8-10.8)
[2024-04-15 16:36] LABS: Alanine Aminotransferase 12 U/L (0-31); Albumin Level 4.2 g/dL (3.5-5.0); Alkaline Phosphatase 98 U/L (39-117); Anion Gap 14 (12-20); Aspartate Amino Transferase 20 U/L (5-31); Bilirubin Direct 0.1 mg/dL (0.0-0.5); Bilirubin Total 0.3 mg/dL (0.0-1.0); Blood Urea Nitrogen 13 mg/dL (9-16); Calcium 9.6 mg/dL (8.4-10.2); Carbon Dioxide 25 mmol/L (22-29); Chloride 108 mmol/L (96-108); Creatinine Clr Calc Pharmacy 60.8; Estimated Glomerular Filt Rate > 60; Glucose Random 100 mg/dL (60-115); Lipase 28 U/L (8-78); Magnesium 1.8 mg/dL (1.6-2.6); Potassium 3.5 mmol/L (3.3-5.1); Sodium 143 mmol/L (135-145); Total Protein 7.6 g/dL (6.5-8.0)
[2024-04-15 16:42] VITALS: BP 141/74; PULSE 76; RESP 18; TEMP 36.7; O2SAT 97
[2024-04-15 16:45] LABS: Troponin-I High Sensitivity < 2.7 ng/L (<3.5-17.0)
--- NOTE | 2024-04-15 16:50 | PC.NURSE ---
pt a&ox3, vss, pt c/o nausea, labs, urine and swabs obtained previously in triage, pt awaiting to be seen by provider.
[2024-04-15 17:13] VITALS: BP 128/75; PULSE 78; RESP 18; TEMP 36.5; O2SAT 98
[2024-04-15 17:28] LABS: Influenza A PCR NEGATIVE (Negative); Influenza B PCR NEGATIVE (Negative); Resp Syncy Virus RNA Qual PCR NEGATIVE (Negative); SARS COV2 PCR INHOUSE NEGATIVE (Negative)
[2024-04-15 17:49] LABS: Appearance Urine Clear; Color Urine Yellow; Glucose Urine UA Negative (Negative); Leukocyte Esterase Urine Negative (Negative); Nitrite Urine Negative (Negative); PH 6.5 (5.0-9.0); UMIC TRIGGER UACC YES; Urine Blood Small (1+) (Negative); Urine Ketones Negative (Negative); Urine Protein Negative (Neg-Trace)
[2024-04-15] MEDS: Ondansetron ODT 4 MG TAB.RAPDIS TRANSLINGU (18:24)
--- NOTE | 2024-04-15 18:27 | PC.NURSE ---
pt a&ox3, vss, pt medicated for mild nausea, pt to discharge home.
[2024-04-15 18:30] VITALS: BP 130/72; PULSE 72; RESP 18; TEMP 36.6; O2SAT 98
[2024-04-15 19:17] LABS: Bacteria Urine None Seen (None Seen); Hyaline Casts Urine 0-2 /LPF (0-2); Squamous Epithelial Cell Urine 0-2 /HPF (0-2); WBC Urine 0-5 /HPF (0-5)
== END 2024-04-15 18:31 | disposition home or self-care (01) ==
PROVIDERS: Physician Assistant; Emergency Provider Emergency Medicine; PCP Internal Medicine
DX: R11.2 Nausea with vomiting, unspecified (principal); M79.10 Myalgia, unspecified site; R07.89 Other chest pain; R51.9 Headache, unspecified; F17.210 Nicotine dependence, cigarettes, uncomplicated; Z03.818 Encounter for observation for suspected exposure to other biological agents ruled out; Z79.899 Other long term (current) drug therapy
CPT/HCPCS: 0241U; 80048; 80076; 81001; 83690; 83735; 84484; 85025; 93005; 99283; 99285

== ENCOUNTER → 2024-04-15 15:55 | Outpatient (BNV) | payer OTHER, SELFPAY | PROVIDERS: Emergency Provider Emergency Medicine; PCP Internal Medicine; Visit Provider Internal Medicine | DX: R07.9 Chest pain, unspecified (principal) | CPT/HCPCS: 93010 ==

== ENCOUNTER → 2024-04-17 13:51 | Outpatient (BNVA) | payer OTHER, SELFPAY | PROVIDERS: PCP Internal Medicine ==

== ENCOUNTER 2024-04-18 11:31 | Outpatient (REF) | payer OTHER, SELFPAY ==
[2024-04-18 14:27] LABS: Alanine Aminotransferase 13 U/L (0-31); Albumin Level 4.3 g/dL (3.5-5.0); Alkaline Phosphatase 115 U/L (39-117); Anion Gap 16 (12-20); Aspartate Amino Transferase 35 U/L (5-31); Bilirubin Total 0.5 mg/dL (0.0-1.0); Blood Urea Nitrogen 16 mg/dL (9-16); Calcium 9.7 mg/dL (8.4-10.2); Carbon Dioxide 23 mmol/L (22-29); Chloride 106 mmol/L (96-108); Cholesterol 183 mg/dL (<200); Estimated Glomerular Filt Rate > 60; Glucose Fasting 81 mg/dL (60-99); HDL Cholesterol 35 mg/dL (>40); Potassium 3.4 mmol/L (3.3-5.1); Sodium 142 mmol/L (135-145); Total Protein 7.9 g/dL (6.5-8.0); Triglycerides 487 mg/dL (<150)
[2024-04-18 14:30] LABS: Vitamin D 25-OH Total 46.2 ng/mL (>30)
[2024-04-18 14:44] LABS: Vitamin B12 305 pg/mL (200-900)
== END 2024-04-18 11:32 | disposition home or self-care (01) ==
LOC: HO.LAB 11:31
PROVIDERS: PCP Internal Medicine; Visit Provider Internal Medicine
DX: J45.909 Unspecified asthma, uncomplicated (principal); E55.9 Vitamin D deficiency, unspecified; E78.5 Hyperlipidemia, unspecified; E53.8 Deficiency of other specified B group vitamins
CPT/HCPCS: 36415; 80053; 80061; 82306; 82607; 82746

== ENCOUNTER 2024-04-21 11:54 | Outpatient (AMB) | payer OTHER, SELFPAY ==
--- NOTE | 2024-04-21 11:52 | MHC.OFFVIS ---
Vital Signs 04/21/24 11:53 Height 5 ft 1 in Intake Visit Reasons: Follow up Tube Laser Operator Required: Yes Tube Laser Operator Name: Miya Abarca Information Interpreted: non-clinical & clinical Accompanied by: Self / Same As Patient Allergies amitriptyline Allergy (Intermediate, Verified 04/21/24 11:52) headache ibuprofen [From Motrin] Allergy (Intermediate, Verified 04/21/24 11:52) ITCHY RASH gabapentin Adverse Reaction (Intermediate, Verified 04/21/24 11:52) vomiting Medication List - Last Reconciled 04/21/24 by MESSI Montilla acetaminophen 1,000 mg (2 x 500 mg) PO TID PRN albuterol sulfate 90 mcg/actuation 2 puffs inhalation Q4-6H PRN albuterol sulfate 5 mg inhalation Q4H PRN albuterol sulfate 2.5 mg (3 mL) inhalation Q6H PRN 30 days atorvastatin 20 mg PO BEDTIME 90 days blood pressure monitor (Blood Pressure Kit) As directed cininbzdlg-gjqbguiwokqkg-onnk 50-300-40 mg (Fioricet) 1 cap PO Q4-6H PRN cane As directed cholecalciferol (vitamin D3) 50 mcg PO DAILY 90 days clobetasol 0.05% 1 appl topical BID 2 weeks clonazepam 0.5 mg PO BEDTIME PRN 30 days cyclobenzaprine 10 mg PO TID PRN fenofibrate 54 mg PO DAILY 90 days fluocinolone acetonide oil 0.01% (DermOtic Oil) 5 drps otic (ears) BID 7 days fluticasone furoate 50 mcg/actuation (Arnuity Ellipta) 1 inh inhalation DAILY 30 days fluticasone propionate 50 mcg/actuation (Flonase Allergy Relief) 2 sprays intranasal Q12H 30 days galcanezumab-gnlm (Emgality Pen) 120 mg subcut ONCE 30 days hydroxyzine HCl 10 mg PO QID PRN ipratropium-albuterol 20-100 mcg/actuation (Combivent Respimat) 1 puff PO QID 30 days lidocaine 5% (Lidoderm) 1 patch topical DAILY loratadine 10 mg PO DAILY PRN 30 days magnesium oxide 400 mg PO BEDTIME 30 days meclizine 12.5 mg PO TID PRN naloxone 2 mg (0.08 mL) subcut Q3M 30 days nebulizers (AeroEclipse II Nebulizer) As directed ondansetron 4 mg PO Q6H PRN riboflavin (vitamin B2) 400 mg PO DAILY 30 days tramadol 50 mg PO BID PRN 30 days underpads (Bed Underpads) As directed venlafaxine ER 37.5 mg PO BEDTIME 90 days walker To be use lifetime HPI Comments Details: 52-yr-old female presents for f/u televideo visit for headache disorder via Doximity. Pt reports she has increased headaches. Headaches are now more severe and 3-5 days per week.She has required ER tx for some. Pt reports headache sused to always be right sided, but now can be left sided or holocranial and face pain. Headaches are a/w blurry vision, Ear pain, skull bone pain, allodynia, running numbness/tinging over frontal/top of head, Nausea, Light Sensitivity, Sound Sensitivity, Dizziness, Difficulty Concentrating and Swollen Eye, activity intolerance. She does also endorse neck pain, tightness, w/ pain radiating into right upper shoulder and trap, and is exacerbated by cervical extension. She has had interval Brain MRI- unremarkable, head CT- unremarkable. Pt reports that she started having headaches approx 3 years ago, which have been gradually increasing. She denies known precipitating cause. She has had multiple ER visits. Her most recent ER visit in mid-Mar, did show hypokalemia 3.0L, pt states she thought they were going to resend the potassium supplement but she never received. She was scheduled to have a brain MRI recently- but needed to reschedule it. She never started Emgality- as when she came for injection training, she was sick w/ the flu, and thus injection was held. She did start Riboflavin and Magnesium. She tried Naratriptan, but it did not help and caused nausea. Has used Fioricet prn for more severe migraine. [facility] Medical History Acute maxillary sinusitis Otitis externa Hospital discharge follow-up Microscopic hematuria Physical exam Goiter Blurry vision Tobacco dependence Has daytime drowsiness Pulmonary nodules Moderate recurrent major depression Dyspnea Hand pain Skin lesion Leg pain, bilateral Dyslipidemia Epigastric pain Essential hypertension Cervical cancer screening GERD (gastroesophageal reflux disease) HTN (hypertension) Migraine Anxiety Depression Right lower quadrant pain Fibromyalgia Surgical History Previous section History of breast lump/mass excision History of lithotripsy H/O LEEP H/O tubal ligation Family History Father Myocardial infarction Mother Lung cancer Brother Liver cancer Maternal Grandfather Stomach cancer Maternal Grandmother No problems noted. Social History Housing: Apartment Alcohol intake: never Patient Tobacco Use Status: Current someday Tobacco user Tobacco use type: Cigarette Cigarettes Per Day: 3 e-Cigarette/Vaping Use: Never Used Second Hand Smoke Exposure: No service: No Current occupational status: disabled Gender identity: Female Cognitive needs: No Hearing needs: No Vision needs: No Female Reproductive History Menstrual Age of Menarche: 9 Physical Exam Const General: cooperative and no acute distress Orientation/consciousness: patient oriented x3 Resp Effort & Inspection: normal respiratory effort and able to speak in complete sentences Neuro Other: Pt performs cervical ROM- limited cervical flexion, elicits pain into right upper trap. General: patient oriented x3 and moves all extremities Cognition (Neuro): normal cognition Psych Appearance: grossly normal Mental Status: mental status grossly normal Speech and movement: Normal speech and movement present Affect: normal affect Attitude: cooperative Quality Reporting (2020) Adult ([facility] 138/08/09/68) Smoking risk assessment performed?: Yes Patient Tobacco Use Status: Current someday Tobacco user Telehealth Telehealth Telehealth Platform: [facility] Location of provider rendering services: practice address Location of patient: address on file Patient Identification confirmed using: Name, : Yes Telehealth method: video Patient verbally consented to treatment: Yes Patient verbally consented to billing insurance company: Yes Patient informed of any privacy concerns related to visit: Yes Minutes spent on Phone/Video with Pt.: 30 Assessment & Plan Assessment & Plan (1) Chronic migraine without aura: Code(s): G43.709 - Chronic migraine without aura, not intractable, without status migrainosus Category: Medical Qualifiers: Status migrainosus presence: without status migrainosus Intractability: not intractable Qualified Code(s): G43.709 - Chronic migraine without aura, not intractable, without status migrainosus (2) Cervicalgia: Code(s): M54.2 - Cervicalgia Category: Medical (3) Hypokalemia: Code(s): E87.6 - Hypokalemia Category: Medical (4) Cranial pain: Code(s): R51.9 - Headache, unspecified Category: Medical Plan Pt advised to undergo: XR c-spine w/ flex/ext PT eval & tx Future considerations: HST For overall headache management: Discussed importance of good self-care, including but not limited to maintaining a healthy diet, adequate fluid intake, adequate sleep, and engaging in regular physical activity. Track headaches. For acute headache treatment: Discussed importance of taking acute medications at the first sign of headache, however stressed importance of avoiding acute medication overuse (especially with combined headache medications). Stop Naratriptan 2.5mg prn and Fioricet. Trial Rimegepant ODT (Nurtec ODT) 75mg, 1 tab at onset of headache.. Max of 1 tabs (75mg) per 24 hours. May adjunct with OTC Tylenol 650-1000mg q 4-6 hours prn. Do not take w/ Butalbital (Fioricet or Fiorinal). Potential adverse effects, include but are not limited to fatigue, nausea, dry mouth, constipation. Previous acute migraine medication trials: Sumatriptan not tolerated- nausea. Naratriptan- ineffective and caused nausea. Fioricet can help- but will interact w/ oral gepant. Acute migraine medication contraindications: NSAIDs d/t ibuprofen allergy. For headache prevention medication: Continue Riboflavin 400mg qam Continue Magnesium 400mg qhs Again start Emgality 240mg sc x's 1 then 120mg sc q month. Pt will need RN injection training. Reviewed potential adverse effects of Emgality, including but not limited to injection site reactions. Previous migraine prevention medication trials: Amitriptyline- not tolerated, Gabapentin- not tolerated, Cymbalta ineffective > 2 months. Migraine prevention medication contraindications: Beta=blockers s d/t asthma dx For skull pain and scalp paresthesias: Advised pt that recent head CT was unremarkable for osseous process. Likely treating migraine will tx or minimize these s/s. If these s/s persist, will refer to pain management for NB. Will follow-up upon review of above and patient to follow-up in clinic in 3-6 months or sooner prn. Orders: Orders XR cervical spine w flex/ext Today M54.2 - Cervicalgia PT Evaluation and Treatment Today M54.2 - Cervicalgia, R51.9 - Headache, unspecified Medications: New galcanezumab-gnlm (Emgality Pen) Loading dose: 120 mg subcu injection x2 in alternate sites (total 240 mg). To be followed by maintenance dose of 120 mg subcu q.month. 240 mg (2 mL) subcut ONCE 30 days 2 mL 0RF rimegepant (Nurtec ODT) 75 mg PO ONCE 30 days PRN 16 tabs 3RF migraine headache MDD 1 tab Refilled ondansetron 4 mg PO Q6H PRN 20 tabs 6RF nausea and vomiting Discontinued tdvdkhfswd-iyzeeaktkfujk-lppn 50-300-40 mg (Fioricet) Discontinued Reason: Doctor's Order 1 cap PO Q4-6H PRN 10 caps 0RF headache Coding Level of Care Code Tele Est Pt Level 4 (60394) Diagnoses Chronic migraine without aura without status migrainosus, not intractable G43.709 Status migrainosus presence: without status migrainosus Intractability: not intractable Cervicalgia M54.2 Hypokalemia E87.6 Cranial pain R51.9
== END 2024-04-21 13:24 | disposition home or self-care (01) ==
LOC: HO.HSMS 11:55
PROVIDERS: PCP Internal Medicine; Visit Provider Nurse Practitioner Family
DX: G43.709 Chronic migraine without aura, not intractable, without status migrainosus (principal); M54.2 Cervicalgia; E87.6 Hypokalemia; R51.9 Headache, unspecified
CPT/HCPCS: 99214

== ENCOUNTER → 2024-04-21 11:54 | Outpatient (BNVA) | payer OTHER, SELFPAY | PROVIDERS: PCP Internal Medicine; Visit Provider Nurse Practitioner Family ==

== ENCOUNTER 2024-04-22 14:44 | Outpatient (AMB) | payer OTHER, SELFPAY ==
[2024-04-22 14:46] VITALS: BP 120/80; PULSE 70; O2SAT 97
--- NOTE | 2024-04-22 14:46 | MHC.OFFVIS ---
Vital Signs 04/22/24 14:46 Weight 152 lb 1.903 oz BP 120/80 Blood Pressure Location Lt brachial Position Sitting Pulse 70 Pulse Source Pulse Oximeter Pulse Oximetry (%) 97 Oxygen Delivery Method Room Air Intake Visit Reasons: Hospital Follow Up/Shortness of Breath Allergies amitriptyline Allergy (Intermediate, Verified 04/22/24 14:51) headache ibuprofen [From Motrin] Allergy (Intermediate, Verified 04/22/24 14:51) ITCHY RASH gabapentin Adverse Reaction (Intermediate, Verified 04/22/24 14:51) vomiting Medication List - Last Reconciled 04/22/24 by Rubina Bell LPN acetaminophen 1,000 mg (2 x 500 mg) PO TID PRN albuterol sulfate 90 mcg/actuation 2 puffs inhalation Q4-6H PRN albuterol sulfate 5 mg inhalation Q4H PRN albuterol sulfate 2.5 mg (3 mL) inhalation Q6H PRN 30 days atorvastatin 20 mg PO BEDTIME 90 days blood pressure monitor (Blood Pressure Kit) As directed cane As directed cholecalciferol (vitamin D3) 50 mcg PO DAILY 90 days clobetasol 0.05% 1 appl topical BID 2 weeks clonazepam 0.5 mg PO BEDTIME PRN 30 days cyclobenzaprine 10 mg PO TID PRN fenofibrate 54 mg PO DAILY 90 days fluocinolone acetonide oil 0.01% (DermOtic Oil) 5 drps otic (ears) BID 7 days fluticasone furoate 50 mcg/actuation (Arnuity Ellipta) 1 inh inhalation DAILY 30 days fluticasone propionate 50 mcg/actuation (Flonase Allergy Relief) 2 sprays intranasal Q12H 30 days galcanezumab-gnlm (Emgality Pen) 120 mg subcut ONCE 30 days galcanezumab-gnlm (Emgality Pen) 240 mg (2 mL) subcut ONCE 30 days hydroxyzine HCl 10 mg PO QID PRN ipratropium-albuterol 20-100 mcg/actuation (Combivent Respimat) 1 puff PO QID 30 days lidocaine 5% (Lidoderm) 1 patch topical DAILY loratadine 10 mg PO DAILY PRN 30 days magnesium oxide 400 mg PO BEDTIME 30 days meclizine 12.5 mg PO TID PRN naloxone 2 mg (0.08 mL) subcut Q3M 30 days nebulizers (AeroEclipse II Nebulizer) As directed ondansetron 4 mg PO Q6H PRN riboflavin (vitamin B2) 400 mg PO DAILY 30 days rimegepant (Nurtec ODT) 75 mg PO ONCE PRN 30 days MDD 1 tab tramadol 50 mg PO BID PRN 30 days underpads (Bed Underpads) As directed venlafaxine ER 37.5 mg PO BEDTIME 90 days walker To be use lifetime HPI Comments Details: The patient is a 50-year-old woman with a known history of obstructive airway disease in addition to history of pulmonary nodules. Apparently she was in her usual state health until back in the spring when she developed COVID. She started developing worsening respiratory symptoms along with dyspnea on exertion. She does use her rescue inhaler and also has a Combivent inhaler that she also finds helpful. She did not require hospitalization for the COVID. Ultimately she did undergo a CT scan of the abdomen over the summer because of worsening abdominal discomfort. We could review the CT scan images. She has multiple pulmonary nodules subcentimeter in size at least at a could see within the lung windows of the CT scan of the abdomen. Some of the nodules were calcified and some of them were noncalcified. She does smoke cigarettes, therefore she is high risk for cancer. The patient should have a formal CT scan of the chest to address the whole lung tissue. In addition to that she does describe significant daytime drowsiness. The patient has issues with headaches in the morning. She does have an elevated Portal score 11/24. His hard time completing her activities of daily living due to her significant fatigue. She also carries a diagnosis of fibromyalgia. Based on her significant symptoms and cardiovascular risk factors the patient should have a home sleep study at this time. 04/22/2024 the patient is here for a pulmonary follow-up visit. The patient has multiple complaints. She has not been seen in some time. She has been complaining significant sinus congestion and chronic rhinitis. She does have significant allergies. She has also noticed that she has been coughing more with some chest congestion as well. She has been having to use her respiratory inhalers on a regular basis on a daily basis due to significant shortness of breath and cough and shortness of breath. The patient needs to quit smoking. She is willing to try Chantix at this time. On exam she does have significant chronic rhinitis and she does have some wheezing on examination. Therefore, will optimize her allergy therapy and also optimize her respiratory inhaler therapy. I am hopeful that she can quit with Chantix and hopefully improve her respiratory status. She does complaint of the coughing the shortness of breath. Previous CT scan demonstrated pulmonary nodules. Will go ahead and repeat a CT scan at this time. If the CT scan stable we can get her involved in the lung cancer screening program to get her further situated with with cancer screening. [facility] Medical History (Updated 04/22/24 @ 23:06 by Donato Marinelli MD) Asthma-COPD overlap syndrome Acute maxillary sinusitis Otitis externa Hospital discharge follow-up Microscopic hematuria Physical exam Goiter Blurry vision Tobacco dependence Has daytime drowsiness Pulmonary nodules Moderate recurrent major depression Dyspnea Hand pain Skin lesion Leg pain, bilateral Dyslipidemia Epigastric pain Essential hypertension Cervical cancer screening GERD (gastroesophageal reflux disease) HTN (hypertension) Migraine Anxiety Depression Right lower quadrant pain Fibromyalgia Surgical History Previous section History of breast lump/mass excision History of lithotripsy H/O LEEP H/O tubal ligation Family History Father Myocardial infarction Mother Lung cancer Brother Liver cancer Maternal Grandfather Stomach cancer Maternal Grandmother No problems noted. Social History Housing: Apartment Alcohol intake: never Patient Tobacco Use Status: Current someday Tobacco user Tobacco use type: Cigarette Cigarettes Per Day: 3 e-Cigarette/Vaping Use: Never Used Second Hand Smoke Exposure: No service: No Current occupational status: disabled Gender identity: Female Cognitive needs: No Hearing needs: No Vision needs: No Female Reproductive History Menstrual Age of Menarche: 9 Review of Systems Const Reports daytime sleepiness and Reports headache(s) Eyes Reports no additional complaints, Denies change in vision and Denies other visual disturbances ENT Reports headache(s) Card Denies chest pain at rest, Denies chest pain with activity, Denies edema, Denies irregular heart rhythm, Denies claudication, Reports dyspnea, Denies dyspnea on exertion, Denies orthopnea, Denies paroxysmal nocturnal dyspnea and Denies slow heart rate Resp Reports cough, Reports dyspnea and Denies dyspnea on exertion GI Denies abdominal pain, Denies change in bowel habits, Denies excessive flatus, Reports dyspepsia, Reports heartburn, Denies nausea and Denies vomiting Denies urinary incontinence, Denies urinary hesitancy and Denies urinary urgency Musc Denies abnormal gait, Denies atrophy, Denies deformity, Reports arthralgias and Denies limited range of motion Skin/Breast Denies bleeding lesions, Denies changing lesions and Denies rash Neuro Denies abnormal gait, Denies confusion and Reports headache(s) Psych Reports anxiety, Denies confusion and Reports depression Physical Exam Vital Signs: Last Vital Signs Pulse 70 04/22/24 14:46 BP 120/80 04/22/24 14:46 Pulse Ox 97 04/22/24 14:46 Oxygen Delivery Method Room Air 04/22/24 14:46 Const General: No confusion Orientation/consciousness: No confusion HEENT General nose exam: Abnormal external nose present and Nasal discharge present Chest Chest palpation & inspection: normal inspection of the chest Resp Auscultation: wheezes and diminished lung sounds Cardio Rate: regular rate Rhythm: regular rhythm Heart sounds: S1 normal heart sound present and S2 normal heart sound present GI Palpation (GI): Soft to palpation and nontender Auscultation: normal bowel sounds Skin General skin exam: rashes and/or lesions noted Neuro General: No confusion Quality Reporting (2019) Adult ([facility] 138/08/09/68) Smoking risk assessment performed?: Yes Patient Tobacco Use Status: Current someday Tobacco user Assessment & Plan Assessment & Plan (1) Asthma-COPD overlap syndrome: Code(s): J44.89 - Other specified chronic obstructive pulmonary disease Category: Medical (2) Pulmonary nodules: Code(s): R91.8 - Other nonspecific abnormal finding of lung field Category: Medical (3) Has daytime drowsiness: Code(s): R40.0 - Somnolence Category: Social Hx (4) Dyspnea: Code(s): R06.00 - Dyspnea, unspecified Category: Medical Qualifiers: Dyspnea type: shortness of breath Qualified Code(s): R06.02 - Shortness of breath (5) Tobacco dependence: Code(s): F17.200 - Nicotine dependence, unspecified, uncomplicated Category: Medical Plan start Symbicort start Zpack start Singulair Continue combivent STEPHANY as needed CT chest Will need PFTs in the future Tobacco dependedncy, will try Chantix. Will monitor for depressive symptoms F/U 2-3 months Orders: Orders CT chest wo IV con Today R91.8 - Other nonspecific abnormal finding of lung field Medications: New budesonide-formoterol 160-4.5 mcg/actuation (Symbicort) 2 puffs inhalation BID 30 days 10.2 grams 11RF J44.89 - Other specified chronic obstructive pulmonary disease azithromycin 500 mg PO DAILY 5 days 5 tabs 0RF montelukast (Singulair) 10 mg PO BEDTIME 30 days 30 tabs 11RF J45.909 - Unspecified asthma, uncomplicated varenicline (Chantix Starting Month Box) PO PER PKG DIR 42 ea 0RF Coding Level of Care Code Est Pt Level 4 (17751) Diagnoses Asthma-COPD overlap syndrome J44.89 Pulmonary nodules R91.8 Has daytime drowsiness R40.0 Shortness of breath R06.02 Dyspnea type: shortness of breath Tobacco dependence F17.200 Time Spent (min) 20
== END 2024-04-22 15:14 | disposition home or self-care (01) ==
LOC: HO.HPS 14:44
PROVIDERS: PCP Internal Medicine; Visit Provider Hospitalist
DX: J44.89 Other specified chronic obstructive pulmonary disease (principal); R91.8 Other nonspecific abnormal finding of lung field; R40.0 Somnolence; R06.02 Shortness of breath; F17.200 Nicotine dependence, unspecified, uncomplicated
CPT/HCPCS: 99214

== ENCOUNTER → 2024-04-22 14:44 | Outpatient (BNVA) | payer OTHER, SELFPAY | PROVIDERS: PCP Internal Medicine; Visit Provider Hospitalist | DX: R06.02 Shortness of breath (principal); J44.89 Other specified chronic obstructive pulmonary disease; R91.8 Other nonspecific abnormal finding of lung field; R40.0 Somnolence; F17.210 Nicotine dependence, cigarettes, uncomplicated | CPT/HCPCS: 99212 ==

== ENCOUNTER → 2024-04-28 16:17 | Outpatient (BNV) | payer OTHER, SELFPAY | PROVIDERS: Emergency Provider Emergency Medicine; Visit Provider Internal Medicine Cardiovascular Disease | DX: R07.9 Chest pain, unspecified (principal) | CPT/HCPCS: 93010 ==

== ENCOUNTER 2024-04-28 16:18 | Emergency (ER) | payer OTHER, SELFPAY ==
--- NOTE | 2024-04-28 | ECG_ITS ---
Test Reason : cp Blood Pressure : / mmHG Vent. Rate : 093 BPM Atrial Rate : 093 BPM P-R Int : 130 ms QRS Dur : 068 ms QT Int : 360 ms P-R-T Axes : 037 011 018 degrees QTc Int : 447 ms Normal sinus rhythm Normal ECG When compared with ECG of 15-APR-2024 16:03, No significant change was found Referred By: Generic ED Physician Electronically Signed By:Harry Suárez
--- NOTE | ~2024-04-28 | XR_ITS ---
EXAMINATION: XR chest 2V CLINICAL INFORMATION: chest pain COMPARISON: Chest radiograph 03/30/2024 TECHNIQUE: 2 views of the chest FINDINGS: Clear lungs. No pneumothorax. No pleural effusion. Normal cardiomediastinal silhouette. XR/XR chest 2V IMPRESSION: No acute cardiopulmonary findings. Electronically signed by: Diamond Dumont MD 04/28/2024 06:16 PM [facility]
[2024-04-28 16:34] VITALS: BP 155/89; PULSE 94; RESP 20; TEMP 36.1; O2SAT 97; BMI 26.6
--- NOTE | 2024-04-28 16:38 | ED_ITS ---
HPI - Chest Pain General Chief Complaint: Chest Pain Stated Complaint: Chest Pain Source: patient Mode of arrival: ambulatory Limitations: no limitations History of Present Illness ED Provider: Belle Mckeon PA-C HPI narrative: Patient is a 53 year old assigned female at with a history of fibromyalgia, JOHN, migraines, and asthma-COPD, presenting to the emergency department today with chest pain. Patient states that she was recently treated for bronchitis but she is continuing to have chest pain, nausea, headache, and dizziness. Patient denies any lightheadedness, abdominal pain, vomiting, fever, chills, blurry vision, double vision, loss of vision, chest pain, difficulty breathing, shortness of breath, back pain, night sweats, pain with urination, increased urinary frequency, increased urinary urgency, blood in her urine or stool, syncope or a near syncopal episode, recent trauma or falls, bowel incontinence, bladder incontinence, or any other complaints at this time. Associated symptoms: nausea Related Data Previous Rx's ?Medication ?Instructions ?Recorded blood pressure monitor (Blood #1 ea 09/06/22 Pressure Kit) cane #1 ea 09/06/22 acetaminophen 500 mg tablet 1,000 mg (2 x 500 mg) PO TID PRN 10/07/22 pain #20 tabs underpads (Bed Underpads) #100 ea 03/28/23 walker #1 ea 03/28/23 galcanezumab-gnlm 120 mg/mL 120 mg subcut ONCE 30 days #1 mL 04/20/23 subcutaneous pen injector (Emgality Pen) fluticasone furoate 50 1 inh inhalation DAILY 30 days #30 06/22/23 mcg/actuation blister powder for ea inhalation (Arnuity Ellipta) ipratropium 20 mcg-albuterol 100 1 puff PO QID 30 days #25 mL 10/18/23 mcg/actuation mist for inhalation (Combivent Respimat) fenofibrate 54 mg tablet 54 mg PO DAILY 90 days #90 tabs 10/24/23 albuterol sulfate 2.5 mg/0.5 mL 5 mg inhalation Q4H PRN shortness 11/12/23 solution for nebulization of breath or wheezing #30 ea albuterol sulfate 90 mcg/actuation 2 puff inhalation Q4-6H PRN 11/12/23 aerosol inhaler shortness of breath or wheezing #6.7 grams meclizine 12.5 mg tablet 12.5 mg PO TID PRN dizziness #14 11/21/23 tabs loratadine 10 mg tablet 10 mg PO DAILY PRN for allergies 12/01/23 30 days #30 tabs clobetasol 0.05 % topical cream 1 appl topical BID 2 weeks #30 01/03/24 grams cyclobenzaprine 10 mg tablet 10 mg PO TID PRN muscle spasm #15 01/05/24 tabs lidocaine 5 % topical patch 1 patch topical DAILY #30 ea 01/05/24 (Lidoderm) naloxone 10 mg/0.4 mL 2 mg (0.08 mL) subcut Q3M 30 days 01/09/24 injection,auto-injector #4 mL clonazepam 0.5 mg tablet 0.5 mg PO BEDTIME PRN anxiety 30 01/21/24 days #60 tabs atorvastatin 20 mg tablet 20 mg PO BEDTIME 90 days #90 tabs 02/11/24 venlafaxine 37.5 mg 37.5 mg PO BEDTIME 90 days #90 caps 02/11/24 capsule,extended release 24 hr tramadol 50 mg tablet 50 mg PO BID PRN severe pain 02/19/24 (scale score 7-10) 30 days #60 tabs fluticasone propionate 50 2 spray intranasal Q12H 30 days 02/27/24 mcg/actuation nasal #16 grams spray,suspension (Flonase Allergy Relief) hydroxyzine HCl 10 mg tablet 10 mg PO QID PRN itching #10 tabs 02/27/24 albuterol sulfate 2.5 mg/3 mL 2.5 mg (3 mL) inhalation Q6H PRN 04/03/24 (0.083 %) solution for nebulization bronchospasm 30 days #360 mL fluocinolone acetonide oil 0.01 % 5 drp otic (ears) BID 7 days #20 mL 04/03/24 ear drops (DermOtic Oil) nebulizers (AeroEclipse II #1 ea 04/03/24 Nebulizer) magnesium oxide 400 mg (241.3 mg 400 mg PO BEDTIME 30 days #30 tabs 04/16/24 magnesium) tablet riboflavin (vitamin B2) 400 mg 400 mg PO DAILY 30 days #30 tabs 04/16/24 tablet galcanezumab-gnlm 120 mg/mL 240 mg (2 mL) subcut ONCE 30 days 04/21/24 subcutaneous pen injector #2 mL (Emgality Pen) ondansetron 4 mg disintegrating 4 mg PO Q6H PRN nausea and 04/21/24 tablet vomiting #20 tabs rimegepant 75 mg disintegrating 75 mg PO ONCE PRN migraine 04/21/24 tablet (Nurtec ODT) headache 30 days #16 tabs azithromycin 500 mg tablet 500 mg PO DAILY 5 days #5 tabs 04/22/24 budesonide-formoterol HFA 160 2 puff inhalation BID 30 days 04/22/24 mcg-4.5 mcg/actuation aerosol #10.2 grams inhaler (Symbicort) montelukast 10 mg tablet 10 mg PO BEDTIME 30 days #30 tabs 04/22/24 (Singulair) varenicline 0.5 mg (11)-1 mg (42) See Rx Instructions PO PER PKG DIR 04/22/24 tablets in a dose pack (Chantix #42 ea Starting Month Box) cholecalciferol (vitamin D3) 50 50 mcg PO DAILY 90 days #90 tabs 04/24/24 mcg (2,000 unit) tablet Allergies Allergy/AdvReac Type Severity Reaction Status Date / Time amitriptyline Allergy Intermediate headache Verified 04/28/24 16:37 ibuprofen [From Motrin] Allergy Intermediate ITCHY RASH Verified 04/28/24 16:37 gabapentin AdvReac Intermediate vomiting Verified 04/28/24 16:37 Review of Systems 2 Constitutional: Constitutional: Reports no additional constitutional complaints, Denies chills, Denies fever(s), Reports headache(s) and Denies night sweats Eyes: Eyes: Reports no additional eye complaints, Denies blurry vision, Denies change in vision, Denies diplopia, Denies eye discharge, Denies loss of vision and Denies eye pain ENT: Reports dizziness and Reports headache(s) Cardiovascular: Cardiovascular: Reports no additional cardiovascular complaints, Denies chest pain, Denies lightheadedness, Denies Loss of Consciousness and Denies dyspnea Respiratory: Respiratory: Reports no additional respiratory complaints and Denies dyspnea Gastrointestinal: Gastrointestinal: Reports no additional gastrointestinal complaints, Denies abdominal pain, Denies melena, Denies hematochezia, Denies change in bowel habits, Denies change in stool character and Reports nausea Genitourinary: Genitourinary: Denies hematuria, Denies urinary frequency, Denies dysuria, Denies urinary incontinence, Denies urinary hesitancy and Denies urinary urgency Musculoskeletal: Musculoskeletal: Reports no additional musculoskeletal complaints, Denies numbness and Denies tingling Neurologic: Reports dizziness, Reports headache(s), Denies loss of vision, Denies numbness and Denies tingling Psychiatric: Psychiatric: Reports no additional psychiatric complaints Endocrine: Endocrine: Reports no additional endocrine complaints Hematologic/Lymphatic: Hematologic/Lymphatic: Reports no additional hematologic/lymphatic complaints Allergic/Immunologic: Allergic/Immunologic: Reports no additional allergic/immunologic complaints [facility] Past Medical History Attestation statement: The following information was validated with the patient. Source: old records reviewed and nursing notes reviewed Medical History Asthma-COPD overlap syndrome Acute maxillary sinusitis Otitis externa Hospital discharge follow-up Microscopic hematuria Physical exam Goiter Blurry vision Tobacco dependence Has daytime drowsiness Pulmonary nodules Moderate recurrent major depression Dyspnea Hand pain Skin lesion Leg pain, bilateral Dyslipidemia Epigastric pain Essential hypertension Cervical cancer screening GERD (gastroesophageal reflux disease) HTN (hypertension) Migraine Anxiety Depression Right lower quadrant pain Fibromyalgia Surgical History Previous section History of breast lump/mass excision History of lithotripsy H/O LEEP H/O tubal ligation Family History Family History Father Myocardial infarction Mother Lung cancer Brother Liver cancer Maternal Grandfather Stomach cancer Maternal Grandmother No problems noted. Social History Social History Housing: Apartment Alcohol intake: never Patient Tobacco Use Status: Current someday Tobacco user Tobacco use type: Cigarette Cigarettes Per Day: 3 e-Cigarette/Vaping Use: Never Used Second Hand Smoke Exposure: No service: No Current occupational status: disabled Gender identity: Female Cognitive needs: No Hearing needs: No Vision needs: No Physical Exam 2 Vital Signs: Vital Signs: Last Vital Signs Temp 96.9 F 04/28/24 16:34 Pulse 94 04/28/24 16:34 Resp 20 04/28/24 16:34 BP 155/89 H 04/28/24 16:34 Pulse Ox 97 04/28/24 16:34 O2 Del Method Room Air 04/28/24 16:34 BMI result Body Mass Index 26.6 Const: General: cooperative, no acute distress, alert and awake Nutritional Appearance: well nourished Orientation/consciousness: patient oriented x3 Limitations: no limitations HEENT: Head: Yes normal to inspection and Yes atraumatic Ears: hearing grossly normal bilaterally and external ears normal General nose exam: Normal external nose present, no nasal discharge noted and no epistaxis Face and sinus: Yes normal facial exam, No abrasion and No laceration Mouth: Normal oral and palatal mucosa present, no drooling and no muffled voice Eyes: General: appearance normal, both eyes and all related structures P eriorbital: periorbital findings normal Eyelids: Yes eyelids normal C onjunctivae: conjunctivae normal Pupils: Equal, round and reactive pupils present EOM: EOMs intact bilaterally Neck: Neck: Yes normal visual inspection, Yes full ROM and Yes no lymphadenopathy Chest: Chest palpation & inspection: normal inspection of the chest Resp: Effort & Inspection: normal respiratory effort and able to speak in complete sentences GI: Inspection: Yes normal to inspection Neuro: General: patient oriented x3 and moves all extremities Cranial nerves: Yes Equal, round and reactive pupils present Cognition (Neuro): n ormal cognition Extrem: General: Yes normal to inspection, Yes full ROM and Yes capillary refill normal Psych: Appearance: grossly normal Mental Status: mental status grossly normal Affect: normal affect Attitude: cooperative Thought process: N ormal thought process present Thought content: Normal thought content present Insight: Good insight present (Psych) Course Course Course Narrative: RME performed by Belle Mckeon PA-C. Patient is a 53 year old assigned female at presenting to the emergency department with chest pain after recently finishing her treatment regimen for bronchitis. Detailed physical exam and review of systems are deferred to the rn clinician. EKG, labs, imaging, and swabs ordered. Patient placed back in the waiting room pending room availability and results. Medical Decision Making Medical Decision Making MDM Narrative: Patient is a 53 year old assigned female at with a history of fibromyalgia, JOHN, migraines, and asthma-COPD, presenting to the emergency department today with chest pain. Patient's limited physical exam performed in triage was unremarkable. Patient's blood work was unremarkable. Patient's EKG was unremarkable. Patient's chest x-ray showed no acute process. Patient left the department without completing treatment. Patient left the department before myself or any of the other emergency department clinicians could explain to or review with the patient; physical exam findings, test results, need or lack there of for additional testing, need or lack there of for a procedure to be performed, need or lack there of for hospital admission / transfer, need or lack there of for prescription medication, treatment options, or a treatment plan. Differential Diagnosis Differential Diagnoses: The differential diagnosis associated with the presentation includes Atypical chest pain Viral illness Admission/Observation Consideration of admission/observation: Escalation of care including admission/observation considered Patient would have been admitted to the hospital had she completed her work up and it had any findings where hospital admission was appropriate, her clinical presentation warranted hospital admission, had myself or any other emergency transit department clerk had the ability to discuss need or lack there of for hospital admission, and the patient hadn't left the department without completing treatment. Lab Data [facility] Lab Attestation statement: I reviewed the patient's lab results. My interpretation of these results are in the MDM Rationale portion of this note. 04/28/24 17:10 04/28/24 17:10 Labs: Lab Results 04/28/24 Range/Units 17:10 WBC 7.7 (4.8-10.8) X10*3/uL RBC 4.57 (4.20-5.50) X10*6/uL Hgb 12.4 (12.0-16.0) g/dl Hct 37.0 (37.0-47.0) % MCV 81.0 (80.0-98.0) fL MCH 27.1 (27.0-33.0) pg MCHC 33.5 (31.0-35.0) g/dl RDW 13.7 (11.0-16.0) % Plt Count 300 (160-400) X10*3/uL MPV 10.3 (9.4-12.3) fL Immature Gran % (Auto) 0.3 (0.0-0.4) % Neut % (Auto) 64.3 (45-73) % Lymph % (Auto) 27.6 (20-40) % Oliver % (Auto) 5.7 (2-11) % Eos % (Auto) 1.3 (0-4) % Baso % (Auto) 0.8 (0-2) % Lymph # (Auto) 2.1 (1.2-4.9) X10*3/uL Oliver # (Auto) 0.4 (0.1-1.2) X10*3/uL Eos # (Auto) 0.1 (0.0-0.4) X10*3/uL Baso # (Auto) 0.1 (0.0-0.2) X10*3/uL Abs Immat Gran (auto) 0.02 (0.00-0.03) X10*3/uL Absolute Neuts (auto) 5.0 (2.0-8.3) x10*3/uL Absolute Nucleated RBC 0.000 (0.0-0.012) X10*3/uL Nucleated RBC % (auto) 0.0 (0.0-0.2) /100WBC Sodium 140 (135-145) mmol/L Potassium 3.6 (3.3-5.1) mmol/L Chloride 104 (96-108) mmol/L Carbon Dioxide 26 (22-29) mmol/L Anion Gap 14 (12-20) BUN 14 (9-16) mg/dL Creatinine 0.89 (0.5-1.4) mg/dL Estim Creat Clear Calc 73.9 Estimated GFR > 60 Random Glucose 118 H (60-115) mg/dL Calcium 10.0 (8.4-10.2) mg/dL Magnesium 1.7 (1.6-2.6) mg/dL Total Bilirubin 0.4 (0.0-1.0) mg/dL AST 25 (5-31) U/L ALT 20 (0-31) U/L Alkaline Phosphatase 115 (39-117) U/L Troponin I High Sens < 2.7 (<3.5-17.0) ng/L Total Protein 8.2 H (6.5-8.0) g/dL Albumin 4.4 (3.5-5.0) g/dL Influenza Type A (PCR) NEGATIVE (Negative) Influenza Type B (PCR) NEGATIVE (Negative) RSV RNA Qual (PCR) NEGATIVE (Negative) SARS-CoV-2 RNA (RT-PCR) NEGATIVE (Negative) Independent Interpretation I performed an independent interpretation of an: EKG and Plain X-Ray Interpretation: My interpretation is in agreement with the radiologist's impression of this imaging study. L EXAMINATION: XR chest 2V CLINICAL INFORMATION: chest pain COMPARISON: Chest radiograph 03/30/2024 TECHNIQUE: 2 views of the chest FINDINGS: Clear lungs. No pneumothorax. No pleural effusion. Normal cardiomediastinal silhouette. XR/XR chest 2V IMPRESSION: No acute cardiopulmonary findings. Electronically signed by: Diamond Dumont MD 04/28/2024 06:16 PM EST Dictated By: Diamond Dumont MD Signed By: Electronically signed by Diamond Dumont MD 04/28/24 1816 Vent. Rate: 093 BPM Atrial Rate: 093 BPM P-R Int: 130 ms QRS Dur: 068 ms QT Int: 360 ms P-R-T Axes: 037 011 018 degrees QTc Int: 447 ms Normal sinus rhythm Normal ECG When compared with ECG of 15-APR-2024 16:03, No significant change was found Referred By: Generic ED Physician Electronically Signed By:Harry Suárez Dictated By: Harry Suárez MD Signed By: Electronically signed by Harry Suárez MD 04/29/24 1516 Radiology Impression Discussion of test interpretation with radiology: I have reviewed the radiologist's reading. Discharge Plan Discharge Clinical Impression: Chest pain Patient Disposition: Left W/O Completing Treatment Prescriptions: No Action (DME) blood pressure monitor [Blood Pressure Kit] Kit See Rx Instructions .ROUTE .MEDSUPPLY Qty: 1 0RF Rx Instructions: As directed (DME) cane Device See Rx Instructions .Route Qty: 1 0RF Rx Instructions: As directed (DME) walker Misc See Rx Instructions .Route Qty: 1 0RF Rx Instructions: To be use lifetime (DME) underpads [Bed Underpads] Pad See Rx Instructions .Route Qty: 100 0RF Rx Instructions: As directed Arnuity Ellipta 50 mcg/actuation blister with device 1 inh inhalation DAILY 30 Days Qty: 30 6RF Combivent Respimat 20-100 mcg/actuation mist 1 puff PO QID 30 Days Qty: 25 1RF Patient Comments: Pulmo given fenofibrate 54 mg tablet 54 mg PO DAILY 90 Days Qty: 90 1RF loratadine 10 mg tablet 10 mg PO DAILY PRN (Reason: for allergies) 30 Days Qty: 30 1RF naloxone 10 mg/0.4 mL auto-injector 2 mg subcut Q3M 30 Days Qty: 4 0RF Rx Instructions: until desired response clonazepam 0.5 mg tablet 0.5 mg PO BEDTIME PRN (Reason: anxiety) 30 Days Qty: 60 1RF atorvastatin 20 mg tablet 20 mg PO BEDTIME 90 Days Qty: 90 1RF venlafaxine 37.5 mg capsule,extended release 24hr 37.5 mg PO BEDTIME 90 Days Qty: 90 1RF tramadol 50 mg tablet 50 mg PO BID PRN (Reason: severe pain (scale score 7-10)) 30 Days Qty: 60 0RF magnesium oxide 400 mg (241.3 mg magnesium) tablet 400 mg PO BEDTIME 30 Days Qty: 30 6RF Rx Instructions: may hold for loose stools riboflavin (vitamin B2) 400 mg tablet 400 mg PO DAILY 30 Days Qty: 30 6RF cholecalciferol (vitamin D3) 50 mcg (2,000 unit) tablet 50 mcg PO DAILY 90 Days Qty: 90 1RF acetaminophen 500 mg tablet 1,000 mg PO TID PRN (Reason: pain) Qty: 20 0RF lidocaine [Lidoderm] 5 % adhesive patch,medicated 1 patch topical DAILY Qty: 30 0RF Rx Instructions: leave on most painful area for up to 12 hrs cyclobenzaprine 10 mg tablet 10 mg PO TID PRN (Reason: muscle spasm) Qty: 15 0RF albuterol sulfate 90 mcg/actuation HFA aerosol inhaler 2 puff inhalation Q4-6H PRN (Reason: shortness of breath or wheezing) Qty: 6.7 0RF albuterol sulfate 2.5 mg/0.5 mL solution for nebulization 5 mg inhalation Q4H PRN (Reason: shortness of breath or wheezing) Qty: 30 0RF meclizine 12.5 mg tablet 12.5 mg PO TID PRN (Reason: dizziness) Qty: 14 0RF clobetasol 0.05 % cream 1 appl topical BID 14 Days Qty: 30 0RF hydroxyzine HCl 10 mg tablet 10 mg PO QID PRN (Reason: itching) Qty: 10 0RF fluticasone propionate [Flonase Allergy Relief] 50 mcg/actuation spray,suspension 2 spray intranasal Q12H 30 Days Qty: 16 0RF Rx Instructions: administer into each nostril Emgality Pen 120 mg/mL pen injector 120 mg subcut ONCE 30 Days Qty: 1 6RF Nurtec ODT 75 mg tablet,disintegrating 75 mg PO ONCE MDD 1 tab PRN (Reason: migraine headache) 30 Days Qty: 16 3RF Emgality Pen 120 mg/mL pen injector 240 mg subcut ONCE 30 Days Qty: 2 0RF Rx Instructions: Loading dose: 120 mg subcu injection x2 in alternate sites (total 240 mg). To be followed by maintenance dose of 120 mg subcu q.month. ondansetron 4 mg tablet,disintegrating 4 mg PO Q6H PRN (Reason: nausea and vomiting) Qty: 20 6RF budesonide-formoterol [Symbicort] 160-4.5 mcg/actuation HFA aerosol inhaler 2 puff inhalation BID 30 Days Qty: 10.2 11RF montelukast [Singulair] 10 mg tablet 10 mg PO BEDTIME 30 Days Qty: 30 11RF varenicline [Chantix Starting Month Box] 0.5 mg (11)- 1 mg (42) tablets,dose pack See Rx Instructions PO PER PKG DIR Qty: 42 0RF Rx Instructions: PO PER PKG DIR azithromycin 500 mg tablet 500 mg PO DAILY 5 Days Qty: 5 0RF fluocinolone acetonide oil [DermOtic Oil] 0.01 % drops 5 drp otic (ears) BID 7 Days Qty: 20 0RF (DME) nebulizers [AeroEclipse II Nebulizer] Misc See Rx Instructions .Route Qty: 1 0RF Rx Instructions: As directed albuterol sulfate 2.5 mg /3 mL (0.083 %) solution for nebulization 2.5 mg inhalation Q6H PRN (Reason: bronchospasm) 30 Days Qty: 360 0RF Discharge Date/Time: 04/28/24 22:34
[2024-04-28 17:13] LABS: MANUAL DIFF FLAG NO
[2024-04-28 17:32] LABS: Alanine Aminotransferase 20 U/L (0-31); Albumin Level 4.4 g/dL (3.5-5.0); Alkaline Phosphatase 115 U/L (39-117); Anion Gap 14 (12-20); Aspartate Amino Transferase 25 U/L (5-31); Basophils Absolute Auto 0.1 X10*3/uL (0.0-0.2); Basophils Percent Auto 0.8 % (0-2); Bilirubin Total 0.4 mg/dL (0.0-1.0); Blood Urea Nitrogen 14 mg/dL (9-16); Carbon Dioxide 26 mmol/L (22-29); Chloride 104 mmol/L (96-108); Creatinine Clr Calc Pharmacy 73.9; Eosinophils Absolute Auto 0.1 X10*3/uL (0.0-0.4); Eosinophils Percent Auto 1.3 % (0-4); Estimated Glomerular Filt Rate > 60; Glucose Random 118 mg/dL (60-115); Hemoglobin 12.4 g/dl (12.0-16.0); Imm Gran Abs Auto 0.02 X10*3/uL (0.00-0.03); Imm Gran Pct Auto 0.3 % (0.0-0.4); Lymphocytes Absolute Auto 2.1 X10*3/uL (1.2-4.9); Lymphocytes Percent Auto 27.6 % (20-40); Magnesium 1.7 mg/dL (1.6-2.6); Mean Corpuscular HGB Conc 33.5 g/dl (31.0-35.0); Mean Corpuscular Hemoglobin 27.1 pg (27.0-33.0); Mean Platelet Volume 10.3 fL (9.4-12.3); Monocytes Absolute Auto 0.4 X10*3/uL (0.1-1.2); Monocytes Percent Auto 5.7 % (2-11); Neutrophils Percent Auto 64.3 % (45-73); Platelet Count 300 X10*3/uL (160-400); Potassium 3.6 mmol/L (3.3-5.1); Red Blood Count 4.57 X10*6/uL (4.20-5.50); Red Cell Distribution Width 13.7 % (11.0-16.0); Sodium 140 mmol/L (135-145); Total Protein 8.2 g/dL (6.5-8.0); White Blood Count 7.7 X10*3/uL (4.8-10.8)
[2024-04-28 17:40] LABS: Troponin-I High Sensitivity < 2.7 ng/L (<3.5-17.0)
[2024-04-28 18:01] LABS: Influenza A PCR NEGATIVE (Negative); Influenza B PCR NEGATIVE (Negative); Resp Syncy Virus RNA Qual PCR NEGATIVE (Negative); SARS COV2 PCR INHOUSE NEGATIVE (Negative)
--- NOTE | 2024-04-28 22:29 | PC.NURSE ---
Pt no answer when called for reassessment.
== END 2024-04-28 22:34 | disposition left against medical advice (07) ==
PROVIDERS: Physician Assistant Medical; Emergency Provider Emergency Medicine
DX: R07.89 Other chest pain (principal); Z79.899 Other long term (current) drug therapy; Z03.818 Encounter for observation for suspected exposure to other biological agents ruled out; F17.210 Nicotine dependence, cigarettes, uncomplicated
CPT/HCPCS: 0241U; 71046; 80053; 83735; 84484; 85025; 93005; 99283

== ENCOUNTER 2024-04-29 13:58 | Outpatient (REF) | payer OTHER, SELFPAY ==
--- NOTE | ~2024-04-29 | XR_ITS ---
EXAMINATION: XR CERVICAL SPINE CLINICAL INFORMATION: M54.2 - Cervicalgia COMPARISON: Neck pain TECHNIQUE: 6 views of the cervical spine, inclusive of flexion and extension views, were obtained. FINDINGS: The vertebral soft tissues are normal. Vertebral body heights and disc spaces do appear preserved and there is no fracture or destructive process. The lateral masses of C1 and odontoid are intact. Flexion and extension views are obtained which show no evidence for instability or subluxation. XR/XR cervical spine w flex/ext IMPRESSION: Unremarkable examination. Electronically signed by: Charbel Barnes MD 05/07/2024 03:28 PM [facility]
== END 2024-04-29 13:59 | disposition home or self-care (01) ==
LOC: HO.XRAY 13:58
PROVIDERS: PCP Internal Medicine; Visit Provider Nurse Practitioner Family
DX: M54.2 Cervicalgia (principal)
CPT/HCPCS: 72052

== ENCOUNTER 2024-04-30 18:15 | Emergency (ER) | payer OTHER, SELFPAY ==
--- NOTE | ~2024-04-30 | CT_ITS ---
EXAMINATION: CT HEAD WITHOUT CONTRAST CLINICAL INFORMATION: Headache. Dizziness. COMPARISON: 05/02/2023 TECHNIQUE: Contiguous axial imaging was performed from the skull base to vertex without intravenous administration of contrast. This CT examination was performed using dose optimization techniques as appropriate, variously including the following: *Automated exposure control *Adjustment of mA and/or kV according to patient size (this includes techniques or standardized protocols for targeted exams where dose is matched to indication/reason for exam; i.e. extremities or head) *Use of iterative reconstruction technique Dose: 640 mGy-cm FINDINGS: There is no evidence of acute intracranial hemorrhage or territorial infarction. No abnormal mass-effect or midline shift is seen. Barnett to white matter differentiation is well preserved. No extra axial fluid collections. The ventricles are normal in size and configuration. There is no abnormal attenuation within the brain parenchyma. The soft tissues and osseous structures are normal. The sinuses and mastoid air cells are clear. CT/CT head/brain wo IV con IMPRESSION: No acute intracranial pathology. Electronically signed by: Spencer Santizo MD 04/30/2024 10:32 PM [facility]
[2024-04-30 18:28] VITALS: BP 138/85; PULSE 83; RESP 18; TEMP 37; O2SAT 98; BMI 28.5
--- NOTE | 2024-04-30 18:42 | ECG_ITS ---
Test Reason : MIGRAINE Blood Pressure : / mmHG Vent. Rate : 069 BPM Atrial Rate : 069 BPM P-R Int : 148 ms QRS Dur : 074 ms QT Int : 400 ms P-R-T Axes : 030 008 004 degrees QTc Int : 428 ms Normal sinus rhythm Minimal voltage criteria for LVH, may be normal variant ( R in aVL ) Borderline ECG When compared with ECG of 28-APR-2024 16:17, No significant change was found Referred By: Miller Villalta Electronically Signed By:Harry Suárez
--- NOTE | 2024-04-30 19:19 | ED_ITS ---
HPI - General Adult General Chief complaint: Headache Stated complaint: migraine Time Seen by Provider: 04/30/24 21:49 Source: patient Mode of arrival: ambulatory Limitations: language barrier (Patient's 1st language is [place]an, speaks some [place], [facility] [place] interpreter used) History of Present Illness ED Provider: Dr. Celso Muro HPI narrative: 53-year-old female with a history of asthma, depression, anxiety, dyslipidemia, hypertension, GERD, migraines, fibromyalgia who presents emergency department for evaluation of headache x3 days. The patient states that she has a headache on the right side of her head and the back of her neck. She states that the headache was initially intermittent but over the last 24 hours has been constant. She states that it is a pressure-like sensation which is 10/10 at its worst. The pain is associated with nausea and blurred vision but no vomiting. She states that she has had no sleep over the last 3 days. She states that her body is weak and she often gets shaking. She states she wakes up from sleep and often has significant anxiety in his scared. Patient states that she does have a neurologist who was diagnosed with migraines but she states the medication that was prescribed is not relieving her headaches therefore she came to the emergency department for evaluation. Patient did have an MRI here in June of 2023 which revealed mild chronic white matter microangiopathy otherwise an unremarkable study. Related Data Previous Rx's ?Medication ?Instructions ?Recorded blood pressure monitor (Blood #1 ea 09/06/22 Pressure Kit) cane #1 ea 09/06/22 acetaminophen 500 mg tablet 1,000 mg (2 x 500 mg) PO TID PRN 10/07/22 pain #20 tabs underpads (Bed Underpads) #100 ea 03/28/23 walker #1 ea 03/28/23 galcanezumab-gnlm 120 mg/mL 120 mg subcut ONCE 30 days #1 mL 04/20/23 subcutaneous pen injector (Emgality Pen) fluticasone furoate 50 1 inh inhalation DAILY 30 days #30 06/22/23 mcg/actuation blister powder for ea inhalation (Arnuity Ellipta) ipratropium 20 mcg-albuterol 100 1 puff PO QID 30 days #25 mL 10/18/23 mcg/actuation mist for inhalation (Combivent Respimat) fenofibrate 54 mg tablet 54 mg PO DAILY 90 days #90 tabs 10/24/23 albuterol sulfate 2.5 mg/0.5 mL 5 mg inhalation Q4H PRN shortness 11/12/23 solution for nebulization of breath or wheezing #30 ea albuterol sulfate 90 mcg/actuation 2 puff inhalation Q4-6H PRN 11/12/23 aerosol inhaler shortness of breath or wheezing #6.7 grams meclizine 12.5 mg tablet 12.5 mg PO TID PRN dizziness #14 11/21/23 tabs loratadine 10 mg tablet 10 mg PO DAILY PRN for allergies 12/01/23 30 days #30 tabs clobetasol 0.05 % topical cream 1 appl topical BID 2 weeks #30 01/03/24 grams cyclobenzaprine 10 mg tablet 10 mg PO TID PRN muscle spasm #15 01/05/24 tabs lidocaine 5 % topical patch 1 patch topical DAILY #30 ea 01/05/24 (Lidoderm) naloxone 10 mg/0.4 mL 2 mg (0.08 mL) subcut Q3M 30 days 01/09/24 injection,auto-injector #4 mL clonazepam 0.5 mg tablet 0.5 mg PO BEDTIME PRN anxiety 30 01/21/24 days #60 tabs atorvastatin 20 mg tablet 20 mg PO BEDTIME 90 days #90 tabs 02/11/24 venlafaxine 37.5 mg 37.5 mg PO BEDTIME 90 days #90 caps 02/11/24 capsule,extended release 24 hr tramadol 50 mg tablet 50 mg PO BID PRN severe pain 02/19/24 (scale score 7-10) 30 days #60 tabs fluticasone propionate 50 2 spray intranasal Q12H 30 days 02/27/24 mcg/actuation nasal #16 grams spray,suspension (Flonase Allergy Relief) hydroxyzine HCl 10 mg tablet 10 mg PO QID PRN itching #10 tabs 02/27/24 albuterol sulfate 2.5 mg/3 mL 2.5 mg (3 mL) inhalation Q6H PRN 04/03/24 (0.083 %) solution for nebulization bronchospasm 30 days #360 mL fluocinolone acetonide oil 0.01 % 5 drp otic (ears) BID 7 days #20 mL 04/03/24 ear drops (DermOtic Oil) nebulizers (AeroEclipse II #1 ea 04/03/24 Nebulizer) magnesium oxide 400 mg (241.3 mg 400 mg PO BEDTIME 30 days #30 tabs 04/16/24 magnesium) tablet riboflavin (vitamin B2) 400 mg 400 mg PO DAILY 30 days #30 tabs 04/16/24 tablet galcanezumab-gnlm 120 mg/mL 240 mg (2 mL) subcut ONCE 30 days 04/21/24 subcutaneous pen injector #2 mL (Emgality Pen) ondansetron 4 mg disintegrating 4 mg PO Q6H PRN nausea and 04/21/24 tablet vomiting #20 tabs rimegepant 75 mg disintegrating 75 mg PO ONCE PRN migraine 04/21/24 tablet (Nurtec ODT) headache 30 days #16 tabs azithromycin 500 mg tablet 500 mg PO DAILY 5 days #5 tabs 04/22/24 budesonide-formoterol HFA 160 2 puff inhalation BID 30 days 04/22/24 mcg-4.5 mcg/actuation aerosol #10.2 grams inhaler (Symbicort) montelukast 10 mg tablet 10 mg PO BEDTIME 30 days #30 tabs 04/22/24 (Singulair) varenicline 0.5 mg (11)-1 mg (42) See Rx Instructions PO PER PKG DIR 04/22/24 tablets in a dose pack (Chantix #42 ea Starting Month Box) cholecalciferol (vitamin D3) 50 50 mcg PO DAILY 90 days #90 tabs 04/24/24 mcg (2,000 unit) tablet metoclopramide HCl 10 mg tablet 10 mg PO Q6H PRN nausea and 04/30/24 (Reglan) vomiting #14 tabs Allergies Allergy/AdvReac Type Severity Reaction Status Date / Time amitriptyline Allergy Intermediate headache Verified 04/30/24 18:33 ibuprofen [From Motrin] Allergy Intermediate ITCHY RASH Verified 04/30/24 18:33 gabapentin AdvReac Intermediate vomiting Verified 04/30/24 18:33 Review of Systems 2 Review of Systems: Yes all other systems are reviewed and are negative PMFSH Past Medical History Medical History Asthma-COPD overlap syndrome Acute maxillary sinusitis Otitis externa Hospital discharge follow-up Microscopic hematuria Physical exam Goiter Blurry vision Tobacco dependence Has daytime drowsiness Pulmonary nodules Moderate recurrent major depression Dyspnea Hand pain Skin lesion Leg pain, bilateral Dyslipidemia Epigastric pain Essential hypertension Cervical cancer screening GERD (gastroesophageal reflux disease) HTN (hypertension) Migraine Anxiety Depression Right lower quadrant pain Fibromyalgia Surgical History Previous section History of breast lump/mass excision History of lithotripsy H/O LEEP H/O tubal ligation Family History Family History Father Myocardial infarction Mother Lung cancer Brother Liver cancer Maternal Grandfather Stomach cancer Maternal Grandmother No problems noted. Social History Social History Housing: Apartment Alcohol intake: never Patient Tobacco Use Status: Current someday Tobacco user Tobacco use type: Cigarette Cigarettes Per Day: 3 Smoked in Last 30 Days: Yes e-Cigarette/Vaping Use: Never Used Second Hand Smoke Exposure: No Use of substances other than those prescribed or required for medical reasons: No Advance Directives: No Advance Directives Information Provided: No Do you have a plan to hurt others: No Plan Patient : No service: No Current occupational status: disabled Gender identity: Female Cognitive needs: No Hearing needs: No Vision needs: No Physical Exam ED Vital Signs: Vital Signs - 24 hr 04/30/24 18:28 04/30/24 22:53 04/30/24 23:54 Temperature 98.6 F 98.1 F 98.1 F Pulse Rate 83 72 72 Respiratory Rate 18 16 16 Blood Pressure 138/85 150/83 H 150/83 H Pulse Oximetry 98 98 98 Oxygen Delivery Method Room Air Room Air Room Air BMI result Body Mass Index 28.5 Vital signs were normal Exam: General: Awake, alert in no distress Head: Normocephalic, atraumatic, tenderness palpation over the temporal regions bilaterally as well as tenderness palpation over the patient's occipital scalp and neck EENT: PERRL, Lids normal, sclera normal, conjunctiva normal, nose normal , ears normal, throat without erythema or exudates Neck: Supple, no adenopathy, bilateral trapezius muscle tenderness with no spasm Lung: breath sounds symmetric, no wheezing, rales or rhonchi Chest: symmetric movement, nontender Heart: regular rate and rhythm, normal S1, S2 no murmurs or rubs Abdomen: soft, non-tender, nondistended, normal bowel sounds Back: no vertebral tenderness, no CVAT Extremities: no deformities, moves all extremities symmetrically Neuro: Awake, alert, oriented, normal speech, cranial nerves intact, moves all extremities symmetrically, cerebellar exam revealed good [id number]-finger, normal rapid finger movement, normal heel to sanchez Psych: Pleasant, cooperative Course Course Course Narrative: RME: 53 yold female with pmh of migraines presents to the ED For headache and dizziness described as the room spinning. NIH score 0. Patient states some nausea. Labs EKG head CT scan ordered Medications Administered Discontinued Medications Generic Name Dose Route Start Last Admin Trade Name Freq PRN Reason Stop Dose Admin Diphenhydramine HCl 50 mg 04/30/24 22:21 04/30/24 22:47 Diphenhydramine Hcl 50 Mg/Ml Vial IVPUSH 04/30/24 22:22 50 mg ONCE STA Administration Lorazepam 1 mg 04/30/24 22:23 04/30/24 22:47 Lorazepam 2 Mg/Ml Vial IVPUSH 04/30/24 22:24 1 mg STAT STA Administration Metoclopramide HCl 10 mg 04/30/24 22:21 04/30/24 22:47 Metoclopramide Hcl 10 Mg/2 Ml Vial IVPUSH 04/30/24 22:22 10 mg ONCE STA Administration Medical Decision Making Medical Decision Making [facility] Narrative: 53-year-old female with a history of asthma, depression, anxiety, dyslipidemia, hypertension, GERD, migraines, fibromyalgia who presents emergency department for evaluation of right sided, posterior occipital headache x3 days, worse in the last 24 hours, associated with blurred vision, nausea, insomnia and anxiety. Headache was 10/10 on time of presentation. Patient has had similar headaches in the past and has been diagnosed with migraines. She had a negative MRI 07/07/2023 and does see a neurologist. Physical examination did reveal tenderness palpation over the temporal areas bilaterally as well as tenderness over the posterior occiput and trapezius muscles bilaterally. Differential diagnosis: ?Includes but is not limited to intracranial bleed, mass effect, migraine headache nonspecific headache myocardial infarction, myocardial ischemia, giant cell arteritis electrolyte abnormalities, anemia Course: 23:48 My interpretation patient's laboratory evaluation as follows: CBC was normal. CMP was normal. Troponin was below detectable limits. ESR and CRP were only mildly elevated suggesting that she was not have giant cell arteritis as the cause her symptoms Patient was 12 EKG was unremarkable. Patient's presentation is consistent with migraine headache and anxiety. Patient was treated with Reglan 10 mg IV, Benadryl 50 mg IV and Ativan 2 mg IV. Her headache significantly improved in his now 07/28. Patient was discharged home with the following migraine regimen: Reglan 10 mg, Benadryl 50 mg, Excedrin migraine 2 tablets every 6 hours as needed for headaches. She was given printed and verbal instructions and discharged home. Admission/Observation Consideration of admission/observation: Escalation of care including admission/observation considered (Yes) Lab Data MDM Lab Attestation statement: I reviewed the patient's lab results. 04/30/24 20:15 04/30/24 20:15 Labs: Lab Results 04/30/24 Range/Units 20:15 WBC 7.8 (4.8-10.8) X10*3/uL RBC 4.45 (4.20-5.50) X10*6/uL Hgb 11.8 L (12.0-16.0) g/dl Hct 36.5 L (37.0-47.0) % MCV 82.0 (80.0-98.0) fL MCH 26.5 L (27.0-33.0) pg MCHC 32.3 (31.0-35.0) g/dl RDW 13.7 (11.0-16.0) % Plt Count 270 (160-400) X10*3/uL MPV 10.2 (9.4-12.3) fL Immature Gran % (Auto) 0.1 (0.0-0.4) % Neut % (Auto) 58.1 (45-73) % Lymph % (Auto) 34.9 (20-40) % [place] % (Auto) 5.1 (2-11) % Eos % (Auto) 1.3 (0-4) % Baso % (Auto) 0.5 (0-2) % Lymph # (Auto) 2.7 (1.2-4.9) X10*3/uL [place] # (Auto) 0.4 (0.1-1.2) X10*3/uL Eos # (Auto) 0.1 (0.0-0.4) X10*3/uL Baso # (Auto) 0.0 (0.0-0.2) X10*3/uL Abs Immat Gran (auto) 0.01 (0.00-0.03) X10*3/uL Absolute Neuts (auto) 4.5 (2.0-8.3) x10*3/uL Absolute Nucleated RBC 0.000 (0.0-0.012) X10*3/uL Nucleated RBC % (auto) 0.0 (0.0-0.2) /100WBC ESR 23 H (0-20) MM/HR PT 12.2 (10.9-12.4) SEC INR 1.0 (0.9-1.1) APTT 37.7 H (26.0-36.8) SEC Sodium 143 (135-145) mmol/L Potassium 3.5 (3.3-5.1) mmol/L Chloride 105 (96-108) mmol/L Carbon Dioxide 27 (22-29) mmol/L Anion Gap 15 (12-20) BUN 16 (9-16) mg/dL Creatinine 0.90 (0.5-1.4) mg/dL Estim Creat Clear Calc 62.5 Estimated GFR > 60 Random Glucose 107 (60-115) mg/dL Calcium 9.3 D (8.4-10.2) mg/dL Total Bilirubin 0.4 (0.0-1.0) mg/dL AST 23 (5-31) U/L ALT 21 (0-31) U/L Alkaline Phosphatase 111 (39-117) U/L Troponin I High Sens < 2.7 (<3.5-17.0) ng/L C-Reactive Protein 1.20 H (< or = 0.50) mg/dL Total Protein 7.6 (6.5-8.0) g/dL Albumin 4.3 (3.5-5.0) g/dL Beta HCG, Quant 7 mIU/mL Independent Interpretation I performed an independent interpretation of an: EKG Interpretation: My interpretation patient's 12 EKG done at 20:12 hours is as follows: Normal sinus rhythm rate of 69, normal [place] interval, QRS duration QTC interval, no ST segment elevation, no ST segment depression, no significant T-wave abnormalities, no PACs, no PVCs Radiology Impression Discussion of test interpretation with radiology: I have reviewed the radiologist's reading. Radiologist Impression: CT head/brain wo IV con IMPRESSION: No acute intracranial pathology. Electronically signed by: Spencer Santizo MD 04/30/2024 10:32 PM [facility] [place] Dictated By: Spencer Santizo MD Independent Historian Clinical information obtained from an independent historian. History obtained from or confirmed by: Spouse Prescription Management I considered prescription management with: Other (Migraine medication: Reglan) Chronic Conditions Patient?s care impacted by: Other (Fibromyalgia, anxiety, migraines) Discharge Plan Discharge Clinical Impression: Acute migraine Chest pain Qualifiers: Chest pain type: unspecified Qualified Code(s): R07.9 - Chest pain, unspecified Patient Disposition: Home, Self-Care Additional Instructions: Your blood work was unremarkable. The CT scan of your head was also normal which is reassuring. The MRI that you had in June of 2023 was also normal which is also reassuring. Your symptoms are consistent with a migraine.I want you to take the following 3 medications together every 6 hours as needed for headache, nausea or vomiting. Reglan (metoclopramide) in 10 mg, 1 pill Benadry (diphenhydramine) l 25 mg, 2 pills Excedrin migraine (acetaminophen, aspirin, caffeine), 2 pills. After you take these medications, lie down in a dark quiet room and try to fall asleep. ?These medications will make you sleepy, do not drive or work after taking these medications. Follow-up with your doctor in 2 days. Please return to the emergency department if your symptoms get worse or if you develop any symptoms that are concerning to you. Prescriptions: New metoclopramide HCl [Reglan] 10 mg tablet 10 mg PO Q6H PRN (Reason: nausea and vomiting) Qty: 14 0RF No Action (DME) blood pressure monitor [Blood Pressure Kit] Kit See Rx Instructions .ROUTE .MEDSUPPLY Qty: 1 0RF Rx Instructions: As directed (DME) cane Device See Rx Instructions .Route Qty: 1 0RF Rx Instructions: As directed (DME) walker Misc See Rx Instructions .Route Qty: 1 0RF Rx Instructions: To be use lifetime (DME) underpads [Bed Underpads] Pad See Rx Instructions .Route Qty: 100 0RF Rx Instructions: As directed Arnuity Ellipta 50 mcg/actuation blister with device 1 inh inhalation DAILY 30 Days Qty: 30 6RF Combivent Respimat 20-100 mcg/actuation mist 1 puff PO QID 30 Days Qty: 25 1RF Patient Comments: Pulmo given fenofibrate 54 mg tablet 54 mg PO DAILY 90 Days Qty: 90 1RF loratadine 10 mg tablet 10 mg PO DAILY PRN (Reason: for allergies) 30 Days Qty: 30 1RF naloxone 10 mg/0.4 mL auto-injector 2 mg subcut Q3M 30 Days Qty: 4 0RF Rx Instructions: until desired response clonazepam 0.5 mg tablet 0.5 mg PO BEDTIME PRN (Reason: anxiety) 30 Days Qty: 60 1RF atorvastatin 20 mg tablet 20 mg PO BEDTIME 90 Days Qty: 90 1RF venlafaxine 37.5 mg capsule,extended release 24hr 37.5 mg PO BEDTIME 90 Days Qty: 90 1RF tramadol 50 mg tablet 50 mg PO BID PRN (Reason: severe pain (scale score 7-10)) 30 Days Qty: 60 0RF magnesium oxide 400 mg (241.3 mg magnesium) tablet 400 mg PO BEDTIME 30 Days Qty: 30 6RF Rx Instructions: may hold for loose stools riboflavin (vitamin B2) 400 mg tablet 400 mg PO DAILY 30 Days Qty: 30 6RF cholecalciferol (vitamin D3) 50 mcg (2,000 unit) tablet 50 mcg PO DAILY 90 Days Qty: 90 1RF acetaminophen 500 mg tablet 1,000 mg PO TID PRN (Reason: pain) Qty: 20 0RF lidocaine [Lidoderm] 5 % adhesive patch,medicated 1 patch topical DAILY Qty: 30 0RF Rx Instructions: leave on most painful area for up to 12 hrs cyclobenzaprine 10 mg tablet 10 mg PO TID PRN (Reason: muscle spasm) Qty: 15 0RF albuterol sulfate 90 mcg/actuation HFA aerosol inhaler 2 puff inhalation Q4-6H PRN (Reason: shortness of breath or wheezing) Qty: 6.7 0RF albuterol sulfate 2.5 mg/0.5 mL solution for nebulization 5 mg inhalation Q4H PRN (Reason: shortness of breath or wheezing) Qty: 30 0RF meclizine 12.5 mg tablet 12.5 mg PO TID PRN (Reason: dizziness) Qty: 14 0RF clobetasol 0.05 % cream 1 appl topical BID 14 Days Qty: 30 0RF hydroxyzine HCl 10 mg tablet 10 mg PO QID PRN (Reason: itching) Qty: 10 0RF fluticasone propionate [Flonase Allergy Relief] 50 mcg/actuation spray,suspension 2 spray intranasal Q12H 30 Days Qty: 16 0RF Rx Instructions: administer into each nostril Emgality Pen 120 mg/mL pen injector 120 mg subcut ONCE 30 Days Qty: 1 6RF Nurtec ODT 75 mg tablet,disintegrating 75 mg PO ONCE MDD 1 tab PRN (Reason: migraine headache) 30 Days Qty: 16 3RF Emgality Pen 120 mg/mL pen injector 240 mg subcut ONCE 30 Days Qty: 2 0RF Rx Instructions: Loading dose: 120 mg subcu injection x2 in alternate sites (total 240 mg). To be followed by maintenance dose of 120 mg subcu q.month. ondansetron 4 mg tablet,disintegrating 4 mg PO Q6H PRN (Reason: nausea and vomiting) Qty: 20 6RF budesonide-formoterol [Symbicort] 160-4.5 mcg/actuation HFA aerosol inhaler 2 puff inhalation BID 30 Days Qty: 10.2 11RF montelukast [Singulair] 10 mg tablet 10 mg PO BEDTIME 30 Days Qty: 30 11RF varenicline [Chantix Starting Month Box] 0.5 mg (11)- 1 mg (42) tablets,dose pack See Rx Instructions PO PER PKG DIR Qty: 42 0RF Rx Instructions: PO PER PKG DIR azithromycin 500 mg tablet 500 mg PO DAILY 5 Days Qty: 5 0RF fluocinolone acetonide oil [DermOtic Oil] 0.01 % drops 5 drp otic (ears) BID 7 Days Qty: 20 0RF (DME) nebulizers [AeroEclipse II Nebulizer] Misc See Rx Instructions .Route Qty: 1 0RF Rx Instructions: As directed albuterol sulfate 2.5 mg /3 mL (0.083 %) solution for nebulization 2.5 mg inhalation Q6H PRN (Reason: bronchospasm) 30 Days Qty: 360 0RF Interventions: ED Discharge Assessment Last Done: 04/30/24 23:54 Discharge Date/Time: 04/30/24 23:54 Print Language: [place]an
[2024-04-30 20:29] LABS: MANUAL DIFF FLAG NO
[2024-04-30 20:30] LABS: Basophils Percent Auto 0.5 % (0-2); Eosinophils Absolute Auto 0.1 X10*3/uL (0.0-0.4); Eosinophils Percent Auto 1.3 % (0-4); Hematocrit 36.5 % (37.0-47.0); Hemoglobin 11.8 g/dl (12.0-16.0); Imm Gran Abs Auto 0.01 X10*3/uL (0.00-0.03); Imm Gran Pct Auto 0.1 % (0.0-0.4); Lymphocytes Absolute Auto 2.7 X10*3/uL (1.2-4.9); Lymphocytes Percent Auto 34.9 % (20-40); Mean Corpuscular HGB Conc 32.3 g/dl (31.0-35.0); Mean Corpuscular Hemoglobin 26.5 pg (27.0-33.0); Mean Platelet Volume 10.2 fL (9.4-12.3); Monocytes Absolute Auto 0.4 X10*3/uL (0.1-1.2); Monocytes Percent Auto 5.1 % (2-11); Neutrophils Absolute Auto 4.5 x10*3/uL (2.0-8.3); Neutrophils Percent Auto 58.1 % (45-73); Platelet Count 270 X10*3/uL (160-400); Red Blood Count 4.45 X10*6/uL (4.20-5.50); Red Cell Distribution Width 13.7 % (11.0-16.0); White Blood Count 7.8 X10*3/uL (4.8-10.8)
[2024-04-30 20:46] LABS: Prothrombin Time 12.2 SEC (10.9-12.4)
[2024-04-30 20:48] LABS: Alanine Aminotransferase 21 U/L (0-31); Albumin Level 4.3 g/dL (3.5-5.0); Alkaline Phosphatase 111 U/L (39-117); Anion Gap 15 (12-20); Aspartate Amino Transferase 23 U/L (5-31); Bilirubin Total 0.4 mg/dL (0.0-1.0); Blood Urea Nitrogen 16 mg/dL (9-16); Calcium 9.3 mg/dL (8.4-10.2); Carbon Dioxide 27 mmol/L (22-29); Chloride 105 mmol/L (96-108); Creatinine Clr Calc Pharmacy 62.5; Estimated Glomerular Filt Rate > 60; Glucose Random 107 mg/dL (60-115); Potassium 3.5 mmol/L (3.3-5.1); Sodium 143 mmol/L (135-145); Total Protein 7.6 g/dL (6.5-8.0)
[2024-04-30 20:49] LABS: Partial Thromboplastin Time 37.7 SEC (26.0-36.8)
[2024-04-30 20:55] LABS: HCG Quantitative 7 mIU/mL
[2024-04-30 20:56] LABS: Troponin-I High Sensitivity < 2.7 ng/L (<3.5-17.0)
[2024-04-30] MEDS: Metoclopramide HCl 10 MG/2 ML VIAL IVPUSH (22:47)
[2024-04-30] MEDS: diphenhydrAMINE HCL 50 MG/ML VIAL IVPUSH (22:47)
[2024-04-30] MEDS: LORazepam 2 MG/ML VIAL 1 MG IVPUSH (22:47)
[2024-04-30 22:53] VITALS: BP 150/83; PULSE 72; RESP 16; TEMP 36.7; O2SAT 98
[2024-04-30 23:34] LABS: Erythrocyte Sedimentation Rate 23 MM/HR (0-20)
[2024-04-30 23:54] VITALS: BP 150/83; PULSE 72; RESP 16; TEMP 36.7; O2SAT 98
== END 2024-04-30 23:54 | disposition home or self-care (01) ==
PROVIDERS: Physician Assistant; Emergency Provider Emergency Medicine Emergency Medical Services; PCP Internal Medicine
DX: G43.909 Migraine, unspecified, not intractable, without status migrainosus (principal); R94.31 Abnormal electrocardiogram [ECG] [EKG]; Z79.899 Other long term (current) drug therapy
CPT/HCPCS: 36415; 70450; 80053; 84484; 84702; 85025; 85610; 85652; 85730; 86140; 93005; 96374; 96375; 99284; 99285; J1200; J2060; J2765

== ENCOUNTER → 2024-04-30 18:42 | Outpatient (BNV) | payer OTHER, SELFPAY | PROVIDERS: Emergency Provider Emergency Medicine Emergency Medical Services; PCP Internal Medicine; Visit Provider Internal Medicine Cardiovascular Disease | DX: G43.909 Migraine, unspecified, not intractable, without status migrainosus (principal) | CPT/HCPCS: 93010 ==

== ENCOUNTER 2024-05-04 02:15 | Emergency (ER) | payer OTHER, SELFPAY ==
--- NOTE | ~2024-05-04 | XR_ITS ---
EXAMINATION: XR CHEST CLINICAL INFORMATION: Chest pain. COMPARISON: Chest 04/28/2024 chest radiograph 09/01/2021 TECHNIQUE: Frontal view of the chest was obtained. FINDINGS: Multiple external artifacts overlie the thorax. Normal appearance of the cardiomediastinal structures. Mild calcific atherosclerotic plaque noted in the transverse aorta. Pleura no focal pulmonary consolidation. Normal pattern of pulmonary vasculature. A 3 mm well-circumscribed nodule in the peripheral right upper lung zone is unchanged compared to 09/01/2021. XR/XR chest 1V IMPRESSION: *No acute cardiopulmonary abnormalities. Lungs clear. *Single benign-appearing 3 mm nodule within the peripheral right upper lung zone unchanged compared with 09/01/2021. This finding may represent a calcified pulmonary granuloma. No additional follow-up imaging warranted on the basis of this examination. Electronically signed by: Tato Luis MD 05/04/2024 03:15 AM [facility]
[2024-05-04 02:22] VITALS: BP 150/83; BP 156/84; PULSE 112; PULSE 77; RESP 18; TEMP 36.6; O2SAT 96; O2SAT 99; BMI 28.6
--- NOTE | 2024-05-04 02:23 | ECG_ITS ---
Test Reason : CHEST PAIN Blood Pressure : / mmHG Vent. Rate : 072 BPM Atrial Rate : 072 BPM P-R Int : 154 ms QRS Dur : 078 ms QT Int : 406 ms P-R-T Axes : 051 013 013 degrees QTc Int : 444 ms Normal sinus rhythm Normal ECG When compared with ECG of 30-APR-2024 20:12, No significant change was found Referred By: Generic ED Physician Electronically Signed By:Harry Suárez
[2024-05-04 02:37] VITALS: PULSE 70
[2024-05-04 02:50] LABS: MANUAL DIFF FLAG NO
[2024-05-04 03:04] LABS: Basophils Absolute Auto 0.1 X10*3/uL (0.0-0.2); Basophils Percent Auto 0.7 % (0-2); Eosinophils Absolute Auto 0.1 X10*3/uL (0.0-0.4); Eosinophils Percent Auto 1.6 % (0-4); Hematocrit 35.1 % (37.0-47.0); Hemoglobin 11.4 g/dl (12.0-16.0); Imm Gran Abs Auto 0.02 X10*3/uL (0.00-0.03); Imm Gran Pct Auto 0.3 % (0.0-0.4); Lymphocytes Absolute Auto 3.1 X10*3/uL (1.2-4.9); Lymphocytes Percent Auto 41.7 % (20-40); Mean Corpuscular HGB Conc 32.5 g/dl (31.0-35.0); Mean Corpuscular Hemoglobin 26.6 pg (27.0-33.0); Mean Corpuscular Volume 81.8 fL (80.0-98.0); Mean Platelet Volume 10.4 fL (9.4-12.3); Monocytes Absolute Auto 0.5 X10*3/uL (0.1-1.2); Monocytes Percent Auto 6.7 % (2-11); Neutrophils Absolute Auto 3.6 x10*3/uL (2.0-8.3); Platelet Count 264 X10*3/uL (160-400); Red Blood Count 4.29 X10*6/uL (4.20-5.50); Red Cell Distribution Width 13.7 % (11.0-16.0); White Blood Count 7.3 X10*3/uL (4.8-10.8)
[2024-05-04 03:21] LABS: Alanine Aminotransferase 20 U/L (0-31); Alkaline Phosphatase 110 U/L (39-117); Anion Gap 17 (12-20); Aspartate Amino Transferase 30 U/L (5-31); Bilirubin Total 0.3 mg/dL (0.0-1.0); Blood Urea Nitrogen 12 mg/dL (9-16); Calcium 9.6 mg/dL (8.4-10.2); Carbon Dioxide 22 mmol/L (22-29); Chloride 109 mmol/L (96-108); Creatinine Clr Calc Pharmacy 71.3; Estimated Glomerular Filt Rate > 60; Glucose Random 91 mg/dL (60-115); Sodium 144 mmol/L (135-145); Total Protein 7.4 g/dL (6.5-8.0)
[2024-05-04 03:27] LABS: Troponin-I High Sensitivity < 2.7 ng/L (<3.5-17.0)
[2024-05-04 03:44] LABS: Influenza A PCR NEGATIVE (Negative); Influenza B PCR NEGATIVE (Negative); Resp Syncy Virus RNA Qual PCR NEGATIVE (Negative); SARS COV2 PCR INHOUSE NEGATIVE (Negative)
[2024-05-04 04:37] VITALS: BP 129/71; PULSE 66; RESP 15; TEMP 36.6; O2SAT 96
--- NOTE | 2024-05-04 05:22 | ED.CHESTPAIN ---
HPI - Chest Pain General Chief Complaint: Chest Pain Stated Complaint: CP/Headache Time Seen by Provider: 05/04/24 05:14 Source: patient and EMS Mode of arrival: EMS Limitations: no limitations History of Present Illness ED Provider: Dr. Veronika Shoemaker HPI narrative: Patient comes to the emergency room complaining of anxiety, bilateral chest pain, headache. Patient states that earlier today, patient was complaining of the above symptoms and having anxiety. Patient states that a few days ago her neighbor and they were close friends. Since then patient has had recurrent symptoms accompanied with anxiety. Patient states that earlier today before coming in she thought she was going to , had a panic attack and therefore called an ambulance and came to the ED. Prior to EMS arriving, patient took clonazepam and now states that she feels better. Related Data Previous Rx's ?Medication ?Instructions ?Recorded blood pressure monitor (Blood #1 ea 09/06/22 Pressure Kit) cane #1 ea 09/06/22 acetaminophen 500 mg tablet 1,000 mg (2 x 500 mg) PO TID PRN 10/07/22 pain #20 tabs underpads (Bed Underpads) #100 ea 03/28/23 walker #1 ea 03/28/23 galcanezumab-gnlm 120 mg/mL 120 mg subcut ONCE 30 days #1 mL 04/20/23 subcutaneous pen injector (Emgality Pen) fluticasone furoate 50 1 inh inhalation DAILY 30 days #30 06/22/23 mcg/actuation blister powder for ea inhalation (Arnuity Ellipta) ipratropium 20 mcg-albuterol 100 1 puff PO QID 30 days #25 mL 10/18/23 mcg/actuation mist for inhalation (Combivent Respimat) fenofibrate 54 mg tablet 54 mg PO DAILY 90 days #90 tabs 10/24/23 albuterol sulfate 2.5 mg/0.5 mL 5 mg inhalation Q4H PRN shortness 11/12/23 solution for nebulization of breath or wheezing #30 ea albuterol sulfate 90 mcg/actuation 2 puff inhalation Q4-6H PRN 11/12/23 aerosol inhaler shortness of breath or wheezing #6.7 grams meclizine 12.5 mg tablet 12.5 mg PO TID PRN dizziness #14 11/21/23 tabs loratadine 10 mg tablet 10 mg PO DAILY PRN for allergies 12/01/23 30 days #30 tabs clobetasol 0.05 % topical cream 1 appl topical BID 2 weeks #30 01/03/24 grams cyclobenzaprine 10 mg tablet 10 mg PO TID PRN muscle spasm #15 01/05/24 tabs lidocaine 5 % topical patch 1 patch topical DAILY #30 ea 01/05/24 (Lidoderm) naloxone 10 mg/0.4 mL 2 mg (0.08 mL) subcut Q3M 30 days 01/09/24 injection,auto-injector #4 mL clonazepam 0.5 mg tablet 0.5 mg PO BEDTIME PRN anxiety 30 01/21/24 days #60 tabs atorvastatin 20 mg tablet 20 mg PO BEDTIME 90 days #90 tabs 02/11/24 venlafaxine 37.5 mg 37.5 mg PO BEDTIME 90 days #90 caps 02/11/24 capsule,extended release 24 hr tramadol 50 mg tablet 50 mg PO BID PRN severe pain 02/19/24 (scale score 7-10) 30 days #60 tabs fluticasone propionate 50 2 spray intranasal Q12H 30 days 02/27/24 mcg/actuation nasal #16 grams spray,suspension (Flonase Allergy Relief) hydroxyzine HCl 10 mg tablet 10 mg PO QID PRN itching #10 tabs 02/27/24 albuterol sulfate 2.5 mg/3 mL 2.5 mg (3 mL) inhalation Q6H PRN 04/03/24 (0.083 %) solution for nebulization bronchospasm 30 days #360 mL fluocinolone acetonide oil 0.01 % 5 drp otic (ears) BID 7 days #20 mL 04/03/24 ear drops (DermOtic Oil) nebulizers (AeroEclipse II #1 ea 04/03/24 Nebulizer) magnesium oxide 400 mg (241.3 mg 400 mg PO BEDTIME 30 days #30 tabs 04/16/24 magnesium) tablet riboflavin (vitamin B2) 400 mg 400 mg PO DAILY 30 days #30 tabs 04/16/24 tablet galcanezumab-gnlm 120 mg/mL 240 mg (2 mL) subcut ONCE 30 days 04/21/24 subcutaneous pen injector #2 mL (Emgality Pen) ondansetron 4 mg disintegrating 4 mg PO Q6H PRN nausea and 04/21/24 tablet vomiting #20 tabs rimegepant 75 mg disintegrating 75 mg PO ONCE PRN migraine 04/21/24 tablet (Nurtec ODT) headache 30 days #16 tabs azithromycin 500 mg tablet 500 mg PO DAILY 5 days #5 tabs 04/22/24 budesonide-formoterol HFA 160 2 puff inhalation BID 30 days 04/22/24 mcg-4.5 mcg/actuation aerosol #10.2 grams inhaler (Symbicort) montelukast 10 mg tablet 10 mg PO BEDTIME 30 days #30 tabs 04/22/24 (Singulair) varenicline 0.5 mg (11)-1 mg (42) See Rx Instructions PO PER PKG DIR 04/22/24 tablets in a dose pack (Chantix #42 ea Starting Month Box) cholecalciferol (vitamin D3) 50 50 mcg PO DAILY 90 days #90 tabs 04/24/24 mcg (2,000 unit) tablet metoclopramide HCl 10 mg tablet 10 mg PO Q6H PRN nausea and 04/30/24 (Reglan) vomiting #14 tabs hydrochlorothiazide 25 mg tablet 25 mg PO DAILY #20 tabs 05/04/24 Allergies Allergy/AdvReac Type Severity Reaction Status Date / Time amitriptyline Allergy Intermediate headache Verified 05/04/24 02:25 ibuprofen [From Motrin] Allergy Intermediate ITCHY RASH Verified 05/04/24 02:25 gabapentin AdvReac Intermediate vomiting Verified 05/04/24 02:25 Review of Systems Review of Systems: Constitutional : No Weight loss, No Fever, No Chills, No Night Sweats, No Fatigue, No Malaise ENT/Mouth : No Hearing loss, No Ear Pain, No Nasal Congestion, No Sinus Pain, No Hoarseness, No sore throat, No Rhinorrhea, No Swallowing Difficulty Eyes: No Eye Pain, No Swelling, No Redness, No Foreign Body, No Discharge, No Vision Changes Cardiovascular : Complaining of bilateral chest pain accompanied by anxiety No SOB, No Dyspnea on Exertion, No Orthopnea, No Edema, No Palpitations Respiratory : No Cough, No Sputum, No Wheezing, No Smoke Exposure, No Dyspnea Gastrointestinal : No Nausea, No Vomiting, No Diarrhea, No Constipation, No abdominal Pain, No Hematochezia, No Melena Genitourinary : no irregular bleeding, No Dysuria, No Urinary Frequency, No Hematuria, No Urinary Incontinence, No Urgency, No Flank Pain, No Urinary Flow Changes, No Hesitancy Musculoskeletal : No joint pain, No Myalgias, No Joint Swelling Skin : No Skin Lesions, No rash Neuro : No Weakness, No Numbness, No Paresthesias, No Loss of Consciousness, No Dizziness, No Headache Psych : Complaining of anxiety No Depression, No SI/HI/AH/VH, No Social Issues, Heme/Lymph: No Bruising, No Bleeding,No Lymphadenopathy Endocrine : No Polyuria, No Polydipsia, No Temperature Intolerance [facility] Past Medical History Medical History Asthma-COPD overlap syndrome Acute maxillary sinusitis Otitis externa Hospital discharge follow-up Microscopic hematuria Physical exam Goiter Blurry vision Tobacco dependence Has daytime drowsiness Pulmonary nodules Moderate recurrent major depression Dyspnea Hand pain Skin lesion Leg pain, bilateral Dyslipidemia Epigastric pain Essential hypertension Cervical cancer screening GERD (gastroesophageal reflux disease) HTN (hypertension) Migraine Anxiety Depression Right lower quadrant pain Fibromyalgia Surgical History Previous section History of breast lump/mass excision History of lithotripsy H/O LEEP H/O tubal ligation Family History Family History Father Myocardial infarction Mother Lung cancer Brother Liver cancer Maternal Grandfather Stomach cancer Maternal Grandmother No problems noted. Social History Social History Housing: Apartment Alcohol intake: never Patient Tobacco Use Status: Current someday Tobacco user Tobacco use type: Cigarette Cigarettes Per Day: 3 Smoked in Last 30 Days: Yes e-Cigarette/Vaping Use: Never Used Second Hand Smoke Exposure: No Use of substances other than those prescribed or required for medical reasons: No Advance Directives: No Advance Directives Information Provided: No Do you have a plan to hurt others: No Plan Patient : No service: No Current occupational status: disabled Gender identity: Female Cognitive needs: No Hearing needs: No Vision needs: No Physical Exam Vital Signs: Vital Signs: Last Vital Signs Temp 97.8 F 05/04/24 04:37 Pulse 66 05/04/24 04:37 Resp 15 05/04/24 04:37 BP 129/71 05/04/24 04:37 Pulse Ox 96 05/04/24 04:37 O2 Del Method Room Air 05/04/24 04:37 BMI result Body Mass Index 28.6 Const: Other: Appearance: Alert. Oriented X3. No acute distress. Eyes: Pupils equal, round and reactive to light. ENT: Pharynx normal. Neck: Normal inspection. Neck supple. No lymph nodes noted. No crepitus CVS: Normal heart rate and rhythm. Pulses normal. Normal S1 and S2. Reproducible chest pain to palpation bilaterally and over the sternum. Respiratory: No respiratory distress. Breath sounds normal. No Wheezing. No rales Abdomen: Soft and nontender. No rigidity. No distention. Skin: Skin warm and dry. Normal skin color. Normal skin turgor. Extremities: No lower extremity edema. No Lacerations. No Rash Neuro: Oriented X 3. No motor deficit. No sensory deficit. Moving all extremities. No slurred speech. CN 2 through 12 grossly intact Psych: calm, cooperative, normal affect Medical Decision Making Medical Decision Making [facility] Narrative: My interpretation of EKG: Normal sinus rhythm, heart rate 72, no ST segment depression or elevation, nonspecific T-wave inversion in lead 3, QTC 444 -my interpretation of labs: Patient's hematology and chemistry within normal limits -chest x-ray does not show any acute abnormality On physical exam, patient has clear lungs, normal heart rate, reproducible chest pain to palpation. -I discussed with the patient that likely she has chest pain secondary to musculoskeletal pain/stress/anxiety. -I discussed with the patient that eventually she continues having symptoms, she may be a good candidate for a cardiac stress test. Patient agrees with plan. -patient states that she has not been taking her blood pressure medication, ran out of meds, refill pending. Patient requesting a small prescription for hydrochlorothiazide which she takes daily. -patient was given the 1st dose of hydrochlorothiazide here in the emergency room. Differential Diagnosis Differential Diagnoses: The differential diagnosis associated with the presentation includes (As above) Admission/Observation Consideration of admission/observation: Escalation of care including admission/observation considered (Given patient's presentation and symptoms, observation was considered) Lab Data [facility] Lab Attestation statement: I reviewed the patient's lab results. 05/04/24 02:45 05/04/24 02:45 Labs: Lab Results 05/04/24 Range/Units 02:45 WBC 7.3 (4.8-10.8) X10*3/uL RBC 4.29 (4.20-5.50) X10*6/uL Hgb 11.4 L (12.0-16.0) g/dl Hct 35.1 L (37.0-47.0) % MCV 81.8 (80.0-98.0) fL MCH 26.6 L (27.0-33.0) pg MCHC 32.5 (31.0-35.0) g/dl RDW 13.7 (11.0-16.0) % Plt Count 264 (160-400) X10*3/uL MPV 10.4 (9.4-12.3) fL Immature Gran % (Auto) 0.3 (0.0-0.4) % Neut % (Auto) 49.0 (45-73) % Lymph % (Auto) 41.7 H (20-40) % Harris % (Auto) 6.7 (2-11) % Eos % (Auto) 1.6 (0-4) % Baso % (Auto) 0.7 (0-2) % Lymph # (Auto) 3.1 (1.2-4.9) X10*3/uL Harris # (Auto) 0.5 (0.1-1.2) X10*3/uL Eos # (Auto) 0.1 (0.0-0.4) X10*3/uL Baso # (Auto) 0.1 (0.0-0.2) X10*3/uL Abs Immat Gran (auto) 0.02 (0.00-0.03) X10*3/uL Absolute Neuts (auto) 3.6 (2.0-8.3) x10*3/uL Absolute Nucleated RBC 0.000 (0.0-0.012) X10*3/uL Nucleated RBC % (auto) 0.0 (0.0-0.2) /100WBC Sodium 144 (135-145) mmol/L Potassium 4.0 (3.3-5.1) mmol/L Chloride 109 H (96-108) mmol/L Carbon Dioxide 22 (22-29) mmol/L Anion Gap 17 (12-20) BUN 12 (9-16) mg/dL Creatinine 0.79 (0.5-1.4) mg/dL Estim Creat Clear Calc 71.3 Estimated GFR > 60 Random Glucose 91 (60-115) mg/dL Calcium 9.6 (8.4-10.2) mg/dL Total Bilirubin 0.3 (0.0-1.0) mg/dL AST 30 (5-31) U/L ALT 20 (0-31) U/L Alkaline Phosphatase 110 (39-117) U/L Troponin I High Sens < 2.7 (<3.5-17.0) ng/L Total Protein 7.4 (6.5-8.0) g/dL Albumin 4.0 (3.5-5.0) g/dL Influenza Type A (PCR) NEGATIVE (Negative) Influenza Type B (PCR) NEGATIVE (Negative) RSV RNA Qual (PCR) NEGATIVE (Negative) SARS-CoV-2 RNA (RT-PCR) NEGATIVE (Negative) Independent Interpretation I performed an independent interpretation of an: EKG and Plain X-Ray Radiology Impression Radiologist Impression: *No acute cardiopulmonary abnormalities. Lungs clear. *Single benign-appearing 3 mm nodule within the peripheral right upper lung zone unchanged compared with 09/01/2021. This finding may represent a calcified pulmonary granuloma. No additional follow-up imaging warranted on the basis of this examination. Discharge Plan Discharge Clinical Impression: Anxiety, Atypical chest pain, Medication refill Patient Disposition: Home, Self-Care Instructions: Anxiety (ED), Chest Wall Pain (ED), Medicine Refill (ED) Additional Instructions: Please follow-up with your primary care physician tomorrow. If you have any worsening or new symptoms, please return to the emergency room or call 911 Prescriptions: New hydrochlorothiazide 25 mg tablet 25 mg PO DAILY Qty: 20 0RF No Action (DME) blood pressure monitor [Blood Pressure Kit] Kit See Rx Instructions .ROUTE .MEDSUPPLY Qty: 1 0RF Rx Instructions: As directed (DME) cane Device See Rx Instructions .Route Qty: 1 0RF Rx Instructions: As directed (DME) walker Misc See Rx Instructions .Route Qty: 1 0RF Rx Instructions: To be use lifetime (DME) underpads [Bed Underpads] Pad See Rx Instructions .Route Qty: 100 0RF Rx Instructions: As directed Arnuity Ellipta 50 mcg/actuation blister with device 1 inh inhalation DAILY 30 Days Qty: 30 6RF Combivent Respimat 20-100 mcg/actuation mist 1 puff PO QID 30 Days Qty: 25 1RF Patient Comments: Pulmo given fenofibrate 54 mg tablet 54 mg PO DAILY 90 Days Qty: 90 1RF loratadine 10 mg tablet 10 mg PO DAILY PRN (Reason: for allergies) 30 Days Qty: 30 1RF naloxone 10 mg/0.4 mL auto-injector 2 mg subcut Q3M 30 Days Qty: 4 0RF Rx Instructions: until desired response clonazepam 0.5 mg tablet 0.5 mg PO BEDTIME PRN (Reason: anxiety) 30 Days Qty: 60 1RF atorvastatin 20 mg tablet 20 mg PO BEDTIME 90 Days Qty: 90 1RF venlafaxine 37.5 mg capsule,extended release 24hr 37.5 mg PO BEDTIME 90 Days Qty: 90 1RF tramadol 50 mg tablet 50 mg PO BID PRN (Reason: severe pain (scale score 7-10)) 30 Days Qty: 60 0RF magnesium oxide 400 mg (241.3 mg magnesium) tablet 400 mg PO BEDTIME 30 Days Qty: 30 6RF Rx Instructions: may hold for loose stools riboflavin (vitamin B2) 400 mg tablet 400 mg PO DAILY 30 Days Qty: 30 6RF cholecalciferol (vitamin D3) 50 mcg (2,000 unit) tablet 50 mcg PO DAILY 90 Days Qty: 90 1RF acetaminophen 500 mg tablet 1,000 mg PO TID PRN (Reason: pain) Qty: 20 0RF lidocaine [Lidoderm] 5 % adhesive patch,medicated 1 patch topical DAILY Qty: 30 0RF Rx Instructions: leave on most painful area for up to 12 hrs cyclobenzaprine 10 mg tablet 10 mg PO TID PRN (Reason: muscle spasm) Qty: 15 0RF albuterol sulfate 90 mcg/actuation HFA aerosol inhaler 2 puff inhalation Q4-6H PRN (Reason: shortness of breath or wheezing) Qty: 6.7 0RF albuterol sulfate 2.5 mg/0.5 mL solution for nebulization 5 mg inhalation Q4H PRN (Reason: shortness of breath or wheezing) Qty: 30 0RF meclizine 12.5 mg tablet 12.5 mg PO TID PRN (Reason: dizziness) Qty: 14 0RF metoclopramide HCl [Reglan] 10 mg tablet 10 mg PO Q6H PRN (Reason: nausea and vomiting) Qty: 14 0RF clobetasol 0.05 % cream 1 appl topical BID 14 Days Qty: 30 0RF hydroxyzine HCl 10 mg tablet 10 mg PO QID PRN (Reason: itching) Qty: 10 0RF fluticasone propionate [Flonase Allergy Relief] 50 mcg/actuation spray,suspension 2 spray intranasal Q12H 30 Days Qty: 16 0RF Rx Instructions: administer into each nostril Emgality Pen 120 mg/mL pen injector 120 mg subcut ONCE 30 Days Qty: 1 6RF Nurtec ODT 75 mg tablet,disintegrating 75 mg PO ONCE MDD 1 tab PRN (Reason: migraine headache) 30 Days Qty: 16 3RF Emgality Pen 120 mg/mL pen injector 240 mg subcut ONCE 30 Days Qty: 2 0RF Rx Instructions: Loading dose: 120 mg subcu injection x2 in alternate sites (total 240 mg). To be followed by maintenance dose of 120 mg subcu q.month. ondansetron 4 mg tablet,disintegrating 4 mg PO Q6H PRN (Reason: nausea and vomiting) Qty: 20 6RF budesonide-formoterol [Symbicort] 160-4.5 mcg/actuation HFA aerosol inhaler 2 puff inhalation BID 30 Days Qty: 10.2 11RF montelukast [Singulair] 10 mg tablet 10 mg PO BEDTIME 30 Days Qty: 30 11RF varenicline [Chantix Starting Month Box] 0.5 mg (11)- 1 mg (42) tablets,dose pack See Rx Instructions PO PER PKG DIR Qty: 42 0RF Rx Instructions: PO PER PKG DIR azithromycin 500 mg tablet 500 mg PO DAILY 5 Days Qty: 5 0RF fluocinolone acetonide oil [DermOtic Oil] 0.01 % drops 5 drp otic (ears) BID 7 Days Qty: 20 0RF (DME) nebulizers [AeroEclipse II Nebulizer] Misc See Rx Instructions .Route Qty: 1 0RF Rx Instructions: As directed albuterol sulfate 2.5 mg /3 mL (0.083 %) solution for nebulization 2.5 mg inhalation Q6H PRN (Reason: bronchospasm) 30 Days Qty: 360 0RF Print Language: Bulgarian
[2024-05-04 05:31] VITALS: BP 131/74
[2024-05-04] MEDS: hydroCHLOROthiazide 25 MG TABLET PO (05:31)
[2024-05-04 05:48] VITALS: BP 131/74; PULSE 79; RESP 16; TEMP 36.8; O2SAT 98
== END 2024-05-04 05:49 | disposition home or self-care (01) ==
PROVIDERS: Emergency Provider Emergency Medicine; PCP Internal Medicine
DX: R07.89 Other chest pain (principal); R51.9 Headache, unspecified; F41.9 Anxiety disorder, unspecified; F17.210 Nicotine dependence, cigarettes, uncomplicated; Z76.0 Encounter for issue of repeat prescription; Z79.899 Other long term (current) drug therapy; Z03.818 Encounter for observation for suspected exposure to other biological agents ruled out
CPT/HCPCS: 0241U; 36415; 71045; 80053; 84484; 85025; 93005; 99284; 99285

== ENCOUNTER → 2024-05-04 02:23 | Outpatient (BNV) | payer OTHER, SELFPAY | PROVIDERS: Emergency Provider Emergency Medicine; PCP Internal Medicine; Visit Provider Internal Medicine Cardiovascular Disease | DX: R07.9 Chest pain, unspecified (principal) | CPT/HCPCS: 93010 ==

== ENCOUNTER 2024-05-07 07:43 | Outpatient (AMB) | payer OTHER, SELFPAY ==
--- NOTE | 2024-05-07 07:54 | MHC.PC.OV ---
Vital Signs 05/07/24 07:55 Height 5 ft 1 in Weight 147 lb BMI 27.8 BP 120/82 Blood Pressure Location Lt brachial Position Sitting Intake Visit Reasons: [facility] [place] 05/03 headaches/dizziness/nauseous Disability Services Coordinator Required: No Accompanied by: Self / Same As Patient Allergies amitriptyline Allergy (Intermediate, Verified 05/07/24 08:16) headache ibuprofen [From Motrin] Allergy (Intermediate, Verified 05/07/24 08:16) ITCHY RASH gabapentin Adverse Reaction (Intermediate, Verified 05/07/24 08:16) vomiting Medication List - Last Reconciled 05/07/24 by Neyda Peres MD acetaminophen 1,000 mg (2 x 500 mg) PO TID PRN albuterol sulfate 90 mcg/actuation 2 puffs inhalation Q4-6H PRN albuterol sulfate 5 mg inhalation Q4H PRN albuterol sulfate 2.5 mg (3 mL) inhalation Q6H PRN 30 days atorvastatin 20 mg PO BEDTIME 90 days blood pressure monitor (Blood Pressure Kit) As directed budesonide-formoterol 160-4.5 mcg/actuation (Symbicort) 2 puffs inhalation BID 30 days cane As directed cholecalciferol (vitamin D3) 50 mcg PO DAILY 90 days clobetasol 0.05% 1 appl topical BID 2 weeks clonazepam 0.5 mg PO BEDTIME PRN 30 days cyclobenzaprine 10 mg PO TID PRN fenofibrate 54 mg PO DAILY 90 days fluocinolone acetonide oil 0.01% (DermOtic Oil) 5 drps otic (ears) BID 7 days fluticasone furoate 50 mcg/actuation (Arnuity Ellipta) 1 inh inhalation DAILY 30 days fluticasone propionate 50 mcg/actuation (Flonase Allergy Relief) 2 sprays intranasal Q12H 30 days galcanezumab-gnlm (Emgality Pen) 240 mg (2 mL) subcut ONCE 30 days hydrochlorothiazide 25 mg PO DAILY ipratropium-albuterol 20-100 mcg/actuation (Combivent Respimat) 1 puff PO QID 30 days lidocaine 5% (Lidoderm) 1 patch topical DAILY loratadine 10 mg PO DAILY PRN 30 days magnesium oxide 400 mg PO BEDTIME 30 days meclizine 12.5 mg PO TID PRN metoclopramide HCl (Reglan) 10 mg PO Q6H PRN montelukast (Singulair) 10 mg PO BEDTIME 30 days naloxone 2 mg (0.08 mL) subcut Q3M 30 days nebulizers (AeroEclipse II Nebulizer) As directed ondansetron 4 mg PO Q6H PRN riboflavin (vitamin B2) 400 mg PO DAILY 30 days rimegepant (Nurtec ODT) 75 mg PO ONCE PRN 30 days MDD 1 tab tramadol 50 mg PO BID PRN 30 days underpads (Bed Underpads) As directed varenicline (Chantix Starting Month Box) PO PER PKG DIR venlafaxine ER 37.5 mg PO BEDTIME 90 days walker To be use lifetime Tobacco use date assessed: 02/19/24 Dental Screening Dental Screen Date: 05/07/24 Did you have a dental visit in the last 12 months?: No Did you have a dental problem in the last 6 months where you did not have access to dental care?: No Was dental information given to patient?: Patient has dentist HPI HPI Comments History of Present Illness Details The patient is a 53-year-old female presenting with anxiety and panic attacks. Patient reports an increased frequency of panic attacks, particularly at night, with accompanying nervousness, tremors, sweating, and palpitations that sometimes lead to emergency interventions. Despite using clonazepam, these incidents have not fully resolved, indicating potential treatment inefficacy. Additionally, the patient presents with ongoing concerns of blood in urine, a condition persisting without concurrent symptoms of urinary tract infections. Follow-up was recommended as urine tests reveal hematuria without signs of infection. The patient has a history of hypertension, adequately controlled, and a decrease in hemoglobin levels that will be reassessed. Treatment for hyperlipidemia is ongoing, with noticeable decreases in cholesterol but elevated triglycerides, for which fenofibrate treatment is being restarted. Nausea and headache exacerbate prior medication use of gabapentin and amitriptyline, necessitating cautious management. [facility] Medical History (Updated 05/07/24 @ 12:23 by Neyda Peres MD) Asthma-COPD overlap syndrome Acute maxillary sinusitis Otitis externa Hospital discharge follow-up Microscopic hematuria Physical exam Goiter Blurry vision Tobacco dependence Has daytime drowsiness Pulmonary nodules Moderate recurrent major depression Dyspnea Hand pain Skin lesion Leg pain, bilateral Dyslipidemia Epigastric pain Essential hypertension Cervical cancer screening GERD (gastroesophageal reflux disease) HTN (hypertension) Migraine Anxiety Depression Right lower quadrant pain Fibromyalgia Surgical History Previous section History of breast lump/mass excision History of lithotripsy H/O LEEP H/O tubal ligation Family History Father Myocardial infarction Mother Lung cancer Brother Liver cancer Maternal Grandfather Stomach cancer Maternal Grandmother No problems noted. Social History Housing: Apartment Alcohol intake: never Patient Tobacco Use Status: Current someday Tobacco user Tobacco use type: Cigarette Cigarettes Per Day: 3 e-Cigarette/Vaping Use: Never Used Second Hand Smoke Exposure: No service: No Current occupational status: disabled Gender identity: Female Cognitive needs: No Hearing needs: No Vision needs: No Female Reproductive History Menstrual Age of Menarche: 9 Questionnaire Thrive Questionnaire Date Thrive assessed: 02/19/24 JOHN-7 AMB Questionnaire JOHN-7 Date JOHN - 7 assessed: 02/19/24 Source: Developed by Drs. Sylvester Merlos, Eve Mcclelland, Joby King and colleagues, with an educational pili from [employer]. Review of Systems Const All systems reviewed & are unremarkable except as noted in HPI and below Reports headache(s) ENT Reports headache(s) Card Denies chest pain at rest, Denies chest pain with activity, Denies edema, Denies irregular heart rhythm, Denies claudication, Denies dyspnea, Denies dyspnea on exertion, Denies orthopnea, Denies paroxysmal nocturnal dyspnea and Denies slow heart rate Resp Denies cough, Denies dyspnea and Denies dyspnea on exertion Musc Reports back pain and Reports arthralgias Neuro Reports headache(s) Physical exam (Primary Care) Vital Signs: Last Vital Signs BP 120/82 05/07/24 07:55 BMI result Body Mass Index 27.8 BMI Assessment/Plan discussion: High BMI High, discussed plan: lifestyle, weight reduction, dietary and physical activity Tobacco/Smoking Status: Tobacco use Status Tobacco use date assessed 02/19/24 05/07/24 08:00 Patient Tobacco Use Status Current someday Tobacco 05/07/24 08:00 Tobacco use type Cigarette 11/20/24 08:00 e-Cigarette/Vaping Use Never Used 05/07/24 08:00 Are you ready to quit: Yes Tobacco cessation counseling provided: Yes Items discussed: Nicotine replacement and QuitWorks Relapse Prevention: discussed the importance of a supportive environment, discussed extending NRT, discussed negative mood or depression after quitting, weight gain after smoking is common and discussed dietary, exercise and/or lifestyle changes Number of minutes spent counselin CPT code: 92613 - 4-10 Minutes Thrive Assessment: Date of Thrive Assessment Date Thrive assessed 02/19/24 05/07/24 08:00 Resp Effort & Inspection: normal respiratory effort Auscultation: clear to auscultation bilaterally Cardio Jugular venous distension: no JVD Rate: regular rate Rhythm: regular rhythm Heart sounds: S1 normal heart sound present and S2 normal heart sound present Extrem General: Yes full ROM Coding Level of Care Code Est Pt Level 4 (03067) Complex EM visit Add On G2211 Diagnoses Mixed hyperlipidemia E78.2 Anxiety F41.9 Microscopic hematuria R31.29 Anemia D64.9 Palpitations R00.2 Additional Codes Vital Signs *Quality* - CPT code: 08062 - 4-10 Minutes ([id number]) Time Spent (min) 25 Assessment & Plan Assessment & Plan (1) Mixed hyperlipidemia: Code(s): E78.2 - Mixed hyperlipidemia Category: Medical (2) Anxiety: Code(s): F41.9 - Anxiety disorder, unspecified Category: Medical (3) Microscopic hematuria: Code(s): R31.29 - Other microscopic hematuria Category: Medical (4) Anemia: Code(s): D64.9 - Anemia, unspecified Category: Medical (5) Palpitations: Code(s): R00.2 - Palpitations Category: Medical Plan - Anxiety Disorder and Panic Disorder: Referral to psychiatric outpatient services for medication adjustment. - Hypertension: Continue monitoring; no current changes in medication. - Hyperlipidemia and Triglyceridemia: Restart fenofibrate for triglyceride management; continue atorvastatin for cholesterol. - Blood in Urine: Refer to urology for further assessment. - Allergic Reactions: Avoid amitriptyline, ibuprofen, and gabapentin due to adverse reactions. - Smoking Cessation: Refer to resources like [employer] for assistance. - Sleep Disturbance: Discuss sleep hygiene practices; adjust medications as needed through psychiatric services. Patient was informed and verbally consented to the use of an ambient scribe for clinic note documentation during this visit. I discussed with the patient the management plans for her anxiety disorder and panic attacks, including the referral to psychiatric outpatient services for specialized evaluation and potential adjustment of psychiatric medications. We reviewed the need to monitor her hemoglobin levels and blood pressure, particularly in light of the identified hematuria which requires further urological investigation. I emphasized the continuation of atorvastatin for cholesterol and resumption of fenofibrate for triglycerides to achieve better lipid control. I also highlighted the importance of stopping medications she has reacted to, such as amitriptyline, ibuprofen, and gabapentin. The risks and benefits of these actions were considered, with a reminder to avoid unnecessary diuretics like hydrochlorothiazide that could cause dehydration. Support for smoking cessation was encouraged, recognizing it may help reduce anxiety levels. Orders: Orders ECG holter monitor 24 hour Today R00.2 - Palpitations Complete Blood Count Auto Diff 1 Month D64.9 - Anemia, unspecified IRON PROFILE 1 Month D64.9 - Anemia, unspecified Comprehensive Met. Panel 1 Month E87.6 - Hypokalemia Referrals Psychiatry Outpatient Consultation Service F32.1 - Major depressive disorder, single episode, moderate, F41.9 - Anxiety disorder, unspecified Medications: Refilled fenofibrate 54 mg PO DAILY 90 days 90 tabs 1RF E78.2 - Mixed hyperlipidemia Discontinued hydrochlorothiazide Discontinued Reason: Order 25 mg PO DAILY 20 tabs 0RF Patient Instructions: - Follow up in one month for repeat laboratory tests, including hemoglobin and potassium. - Consult with the psychiatric outpatient service as referred. - Continue current medications for blood pressure and cholesterol. - Ensure fenofibrate is used for elevated triglycerides. - Avoid using medications with adverse reactions. - Refrain from using hydrochlorothiazide. Seek medical care if experiencing significant anxiety or panic attacks. - Utilize smoking cessation resources such as [employer] if desired. - Maintain a low-fat diet to support cholesterol and triglyceride management.
[2024-05-07 07:55] VITALS: BP 120/82; BMI 27.8
== END 2024-05-07 08:32 | disposition home or self-care (01) ==
PROVIDERS: PCP Internal Medicine; Visit Provider Internal Medicine
DX: E78.2 Mixed hyperlipidemia (principal); F41.9 Anxiety disorder, unspecified; R31.29 Other microscopic hematuria; D64.9 Anemia, unspecified; R00.2 Palpitations

== ENCOUNTER → 2024-05-07 07:43 | Outpatient (BNVA) | payer OTHER, SELFPAY | PROVIDERS: PCP Internal Medicine; Visit Provider Internal Medicine | DX: E78.2 Mixed hyperlipidemia (principal); F41.9 Anxiety disorder, unspecified; R31.29 Other microscopic hematuria; R00.2 Palpitations; D64.9 Anemia, unspecified | CPT/HCPCS: 99212 ==

== ENCOUNTER 2024-05-22 14:32 | Emergency (ER) | payer OTHER, SELFPAY ==
--- NOTE | ~2024-05-22 | XR_ITS ---
EXAMINATION: XR CHEST CLINICAL INFORMATION: chest pain, recent travel COMPARISON: Chest x-ray on 05/04/2024 TECHNIQUE: 2 views of the chest were obtained. FINDINGS: No significant abnormality is noted involving the heart, lungs, mediastinum, bony thorax or soft tissues. XR/XR chest 2V IMPRESSION: Unremarkable examination. Electronically signed by: Jaki Lopez MD 05/22/2024 04:28 PM [facility]
--- NOTE | ~2024-05-22 | CT_ITS ---
EXAMINATION: CT HEAD WITHOUT CONTRAST CLINICAL INFORMATION: Headache COMPARISON: Head CT on 04/30/2024 TECHNIQUE: Contiguous axial imaging was performed from the skull base to vertex without intravenous administration of contrast. This CT examination was performed using dose optimization techniques as appropriate, variously including the following: *Automated exposure control *Adjustment of mA and/or kV according to patient size (this includes techniques or standardized protocols for targeted exams where dose is matched to indication/reason for exam; i.e. extremities or head) *Use of iterative reconstruction technique DLP: 623 mGy-cm RESULTS: There is no evidence of acute intracranial hemorrhage, acute large vessel infarct, midline shift or mass effect. The andres-white differentiation is preserved. The ventricles and sulci are within normal limits in size and configuration. There is no evidence of hydrocephalus. There are no extraaxial collections. Osseous structures are intact. Paranasal sinuses and mastoid air cells are well aerated. CT/CT head/brain wo IV con IMPRESSION: Unremarkable non-contrast CT of the brain. Electronically signed by: Jaki Lopez MD 05/22/2024 04:28 PM SAAD
--- NOTE | 2024-05-22 14:35 | ECG_ITS ---
Test Reason : CHEST PAIN Blood Pressure : / mmHG Vent. Rate : 079 BPM Atrial Rate : 079 BPM P-R Int : 138 ms QRS Dur : 072 ms QT Int : 370 ms P-R-T Axes : 040 002 014 degrees QTc Int : 424 ms Normal sinus rhythm Minimal voltage criteria for LVH, may be normal variant ( R in aVL ) Borderline ECG When compared with ECG of 04-MAY-2024 02:33, No significant change was found Referred By: Generic ED Physician Electronically Signed By:Harry Suárez
[2024-05-22 14:44] VITALS: BP 145/91; PULSE 75; RESP 18; TEMP 37; O2SAT 98; BMI 28.3
--- NOTE | 2024-05-22 14:48 | ED.GENADULT ---
HPI - General Adult General Chief complaint: General Medical Stated complaint: Chest pain, headache Related Data Previous Rx's ?Medication ?Instructions ?Recorded blood pressure monitor (Blood #1 ea 09/06/22 Pressure Kit) cane #1 ea 09/06/22 acetaminophen 500 mg tablet 1,000 mg (2 x 500 mg) PO TID PRN 10/07/22 pain #20 tabs underpads (Bed Underpads) #100 ea 03/28/23 walker #1 ea 03/28/23 fluticasone furoate 50 1 inh inhalation DAILY 30 days #30 06/22/23 mcg/actuation blister powder for ea inhalation (Arnuity Ellipta) ipratropium 20 mcg-albuterol 100 1 puff PO QID 30 days #25 mL 10/18/23 mcg/actuation mist for inhalation (Combivent Respimat) albuterol sulfate 2.5 mg/0.5 mL 5 mg inhalation Q4H PRN shortness 11/12/23 solution for nebulization of breath or wheezing #30 ea albuterol sulfate 90 mcg/actuation 2 puff inhalation Q4-6H PRN 11/12/23 aerosol inhaler shortness of breath or wheezing #6.7 grams meclizine 12.5 mg tablet 12.5 mg PO TID PRN dizziness #14 11/21/23 tabs loratadine 10 mg tablet 10 mg PO DAILY PRN for allergies 12/01/23 30 days #30 tabs clobetasol 0.05 % topical cream 1 appl topical BID 2 weeks #30 01/03/24 grams cyclobenzaprine 10 mg tablet 10 mg PO TID PRN muscle spasm #15 01/05/24 tabs lidocaine 5 % topical patch 1 patch topical DAILY #30 ea 01/05/24 (Lidoderm) naloxone 10 mg/0.4 mL 2 mg (0.08 mL) subcut Q3M 30 days 01/09/24 injection,auto-injector #4 mL clonazepam 0.5 mg tablet 0.5 mg PO BEDTIME PRN anxiety 30 01/21/24 days #60 tabs atorvastatin 20 mg tablet 20 mg PO BEDTIME 90 days #90 tabs 02/11/24 venlafaxine 37.5 mg 37.5 mg PO BEDTIME 90 days #90 caps 02/11/24 capsule,extended release 24 hr tramadol 50 mg tablet 50 mg PO BID PRN severe pain 02/19/24 (scale score 7-10) 30 days #60 tabs fluticasone propionate 50 2 spray intranasal Q12H 30 days 02/27/24 mcg/actuation nasal #16 grams spray,suspension (Flonase Allergy Relief) albuterol sulfate 2.5 mg/3 mL 2.5 mg (3 mL) inhalation Q6H PRN 04/03/24 (0.083 %) solution for nebulization bronchospasm 30 days #360 mL fluocinolone acetonide oil 0.01 % 5 drp otic (ears) BID 7 days #20 mL 04/03/24 ear drops (DermOtic Oil) nebulizers (AeroEGradient Xe II #1 ea 04/03/24 Nebulizer) magnesium oxide 400 mg (241.3 mg 400 mg PO BEDTIME 30 days #30 tabs 04/16/24 magnesium) tablet riboflavin (vitamin B2) 400 mg 400 mg PO DAILY 30 days #30 tabs 04/16/24 tablet galcanezumab-gnlm 120 mg/mL 240 mg (2 mL) subcut ONCE 30 days 04/21/24 subcutaneous pen injector #2 mL (Emgality Pen) ondansetron 4 mg disintegrating 4 mg PO Q6H PRN nausea and 04/21/24 tablet vomiting #20 tabs rimegepant 75 mg disintegrating 75 mg PO ONCE PRN migraine 04/21/24 tablet (Nurtec ODT) headache 30 days #16 tabs budesonide-formoterol HFA 160 2 puff inhalation BID 30 days 04/22/24 mcg-4.5 mcg/actuation aerosol #10.2 grams inhaler (Symbicort) montelukast 10 mg tablet 10 mg PO BEDTIME 30 days #30 tabs 04/22/24 (Singulair) varenicline 0.5 mg (11)-1 mg (42) See Rx Instructions PO PER PKG DIR 04/22/24 tablets in a dose pack (Chantix #42 ea Starting Month Box) cholecalciferol (vitamin D3) 50 50 mcg PO DAILY 90 days #90 tabs 04/24/24 mcg (2,000 unit) tablet metoclopramide HCl 10 mg tablet 10 mg PO Q6H PRN nausea and 04/30/24 (Reglan) vomiting #14 tabs fenofibrate 54 mg tablet 54 mg PO DAILY 90 days #90 tabs 05/07/24 Allergies Allergy/AdvReac Type Severity Reaction Status Date / Time amitriptyline Allergy Intermediate headache Verified 05/22/24 14:45 ibuprofen [From Motrin] Allergy Intermediate ITCHY RASH Verified 05/22/24 14:45 gabapentin AdvReac Intermediate vomiting Verified 05/22/24 14:45 PMFSH Past Medical History Medical History Asthma-COPD overlap syndrome Acute maxillary sinusitis Otitis externa Hospital discharge follow-up Microscopic hematuria Physical exam Goiter Blurry vision Tobacco dependence Has daytime drowsiness Pulmonary nodules Moderate recurrent major depression Dyspnea Hand pain Skin lesion Leg pain, bilateral Dyslipidemia Epigastric pain Essential hypertension Cervical cancer screening GERD (gastroesophageal reflux disease) HTN (hypertension) Migraine Anxiety Depression Right lower quadrant pain Fibromyalgia Surgical History Previous section History of breast lump/mass excision History of lithotripsy H/O LEEP H/O tubal ligation Family History Family History Father Myocardial infarction Mother Lung cancer Brother Liver cancer Maternal Grandfather Stomach cancer Maternal Grandmother No problems noted. Social History Social History Housing: Apartment Alcohol intake: never Patient Tobacco Use Status: Current someday Tobacco user Tobacco use type: Cigarette Cigarettes Per Day: 3 e-Cigarette/Vaping Use: Never Used Second Hand Smoke Exposure: No Advance Directives: No Advance Directives Information Provided: No Do you have a plan to hurt others: No Plan service: No Current occupational status: disabled Gender identity: Female Cognitive needs: No Hearing needs: No Vision needs: No Physical Exam ED Vital Signs: Vital Signs - 24 hr 05/22/24 14:44 Temperature 98.6 F Pulse Rate 75 Respiratory Rate 18 Blood Pressure 145/91 H Pulse Oximetry 98 Oxygen Delivery Method Room Air BMI result Body Mass Index 28.3 Course Course Course Narrative: This is a Rapid Medical Examination (RME) performed by R. Raimonde PA-C in triage. Full HPI, ROS, assessment and treatment plan per primary provider in the Main ED. 53 yo female hx of anemia, asthma/ copd, migraines, anxidty, depression, HDL, HTN, GERD, fibromyalgia here for eval of headache and chest pain x10 days. also endorses feeling light headed with nausea, no vomiting. symptoms began in [place] 10 days ago. she was evaluated there w/ negative work up. she was told her pain was musculoskeletal and was discharged home with muscle relaxer withotu improvemetn. 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 NIH 0 - no focal deficits. cerebellum intact. ambulating with steady gait. Plan: labs, viral swabs, ekg, CT head Reevaluation(s) Reevaluation #1: Patient left the emergency department before myself or any of the other clinicians could review or explain physical exam findings, test results, need or lack there of for additional testing, treatment options, or a treatment plan. Medical Decision Making Lab Data 05/22/24 14:55 05/22/24 14:55 Labs: Lab Results 05/22/24 Range/Units 14:55 WBC 7.2 (4.8-10.8) X10*3/uL RBC 4.36 (4.20-5.50) X10*6/uL Hgb 11.4 L (12.0-16.0) g/dl Hct 35.9 L (37.0-47.0) % MCV 82.3 (80.0-98.0) fL MCH 26.1 L (27.0-33.0) pg MCHC 31.8 (31.0-35.0) g/dl RDW 14.5 (11.0-16.0) % Plt Count 288 (160-400) X10*3/uL MPV 10.0 (9.4-12.3) fL Immature Gran % (Auto) 0.1 (0.0-0.4) % Neut % (Auto) 55.0 (45-73) % Lymph % (Auto) 36.2 (20-40) % [place] % (Auto) 6.6 (2-11) % Eos % (Auto) 1.4 (0-4) % Baso % (Auto) 0.7 (0-2) % Lymph # (Auto) 2.6 (1.2-4.9) X10*3/uL [place] # (Auto) 0.5 (0.1-1.2) X10*3/uL Eos # (Auto) 0.1 (0.0-0.4) X10*3/uL Baso # (Auto) 0.1 (0.0-0.2) X10*3/uL Abs Immat Gran (auto) 0.01 (0.00-0.03) X10*3/uL Absolute Neuts (auto) 4.0 (2.0-8.3) x10*3/uL Absolute Nucleated RBC 0.000 (0.0-0.012) X10*3/uL Nucleated RBC % (auto) 0.0 (0.0-0.2) /100WBC Sodium 144 (135-145) mmol/L Potassium 3.5 (3.3-5.1) mmol/L Chloride 112 H (96-108) mmol/L Carbon Dioxide 27 (22-29) mmol/L Anion Gap 9 L (12-20) BUN 19 H (9-16) mg/dL Creatinine 0.97 (0.5-1.4) mg/dL Estim Creat Clear Calc 57.7 Estimated GFR 60 Random Glucose 92 (60-115) mg/dL Calcium 9.2 (8.4-10.2) mg/dL Magnesium 1.8 (1.6-2.6) mg/dL Total Bilirubin 0.4 (0.0-1.0) mg/dL AST 24 (5-31) U/L ALT 19 (0-31) U/L Alkaline Phosphatase 97 (39-117) U/L Troponin I High Sens < 2.7 (<3.5-17.0) ng/L Total Protein 7.3 (6.5-8.0) g/dL Albumin 4.1 (3.5-5.0) g/dL Lipase 21 (8-78) U/L Influenza Type A (PCR) NEGATIVE (Negative) Influenza Type B (PCR) NEGATIVE (Negative) RSV RNA Qual (PCR) NEGATIVE (Negative) SARS-CoV-2 RNA (RT-PCR) NEGATIVE (Negative) Discharge Plan Discharge Clinical Impression: Headache Patient Disposition: Left W/O Completing Treatment Prescriptions: No Action (DME) blood pressure monitor [Blood Pressure Kit] Kit See Rx Instructions .ROUTE .MEDSUPPLY Qty: 1 0RF Rx Instructions: As directed (DME) cane Device See Rx Instructions .Route Qty: 1 0RF Rx Instructions: As directed (DME) walker Misc See Rx Instructions .Route Qty: 1 0RF Rx Instructions: To be use lifetime (DME) underpads [Bed Underpads] Pad See Rx Instructions .Route Qty: 100 0RF Rx Instructions: As directed Arnuity Ellipta 50 mcg/actuation blister with device 1 inh inhalation DAILY 30 Days Qty: 30 6RF Combivent Respimat 20-100 mcg/actuation mist 1 puff PO QID 30 Days Qty: 25 1RF Patient Comments: Pulmo given loratadine 10 mg tablet 10 mg PO DAILY PRN (Reason: for allergies) 30 Days Qty: 30 1RF naloxone 10 mg/0.4 mL auto-injector 2 mg subcut Q3M 30 Days Qty: 4 0RF Rx Instructions: until desired response clonazepam 0.5 mg tablet 0.5 mg PO BEDTIME PRN (Reason: anxiety) 30 Days Qty: 60 1RF atorvastatin 20 mg tablet 20 mg PO BEDTIME 90 Days Qty: 90 1RF venlafaxine 37.5 mg capsule,extended release 24hr 37.5 mg PO BEDTIME 90 Days Qty: 90 1RF tramadol 50 mg tablet 50 mg PO BID PRN (Reason: severe pain (scale score 7-10)) 30 Days Qty: 60 0RF magnesium oxide 400 mg (241.3 mg magnesium) tablet 400 mg PO BEDTIME 30 Days Qty: 30 6RF Rx Instructions: may hold for loose stools riboflavin (vitamin B2) 400 mg tablet 400 mg PO DAILY 30 Days Qty: 30 6RF cholecalciferol (vitamin D3) 50 mcg (2,000 unit) tablet 50 mcg PO DAILY 90 Days Qty: 90 1RF acetaminophen 500 mg tablet 1,000 mg PO TID PRN (Reason: pain) Qty: 20 0RF lidocaine [Lidoderm] 5 % adhesive patch,medicated 1 patch topical DAILY Qty: 30 0RF Rx Instructions: leave on most painful area for up to 12 hrs cyclobenzaprine 10 mg tablet 10 mg PO TID PRN (Reason: muscle spasm) Qty: 15 0RF albuterol sulfate 90 mcg/actuation HFA aerosol inhaler 2 puff inhalation Q4-6H PRN (Reason: shortness of breath or wheezing) Qty: 6.7 0RF albuterol sulfate 2.5 mg/0.5 mL solution for nebulization 5 mg inhalation Q4H PRN (Reason: shortness of breath or wheezing) Qty: 30 0RF meclizine 12.5 mg tablet 12.5 mg PO TID PRN (Reason: dizziness) Qty: 14 0RF metoclopramide HCl [Reglan] 10 mg tablet 10 mg PO Q6H PRN (Reason: nausea and vomiting) Qty: 14 0RF clobetasol 0.05 % cream 1 appl topical BID 14 Days Qty: 30 0RF fluticasone propionate [Flonase Allergy Relief] 50 mcg/actuation spray,suspension 2 spray intranasal Q12H 30 Days Qty: 16 0RF Rx Instructions: administer into each nostril Nurtec ODT 75 mg tablet,disintegrating 75 mg PO ONCE MDD 1 tab PRN (Reason: migraine headache) 30 Days Qty: 16 3RF Emgality Pen 120 mg/mL pen injector 240 mg subcut ONCE 30 Days Qty: 2 0RF Rx Instructions: Loading dose: 120 mg subcu injection x2 in alternate sites (total 240 mg). To be followed by maintenance dose of 120 mg subcu q.month. ondansetron 4 mg tablet,disintegrating 4 mg PO Q6H PRN (Reason: nausea and vomiting) Qty: 20 6RF budesonide-formoterol [Symbicort] 160-4.5 mcg/actuation HFA aerosol inhaler 2 puff inhalation BID 30 Days Qty: 10.2 11RF montelukast [Singulair] 10 mg tablet 10 mg PO BEDTIME 30 Days Qty: 30 11RF varenicline [Chantix Starting Month Box] 0.5 mg (11)- 1 mg (42) tablets,dose pack See Rx Instructions PO PER PKG DIR Qty: 42 0RF Rx Instructions: PO PER PKG DIR fluocinolone acetonide oil [DermOtic Oil] 0.01 % drops 5 drp otic (ears) BID 7 Days Qty: 20 0RF (DME) nebulizers [AeroEclipse II Nebulizer] Misc See Rx Instructions .Route Qty: 1 0RF Rx Instructions: As directed albuterol sulfate 2.5 mg /3 mL (0.083 %) solution for nebulization 2.5 mg inhalation Q6H PRN (Reason: bronchospasm) 30 Days Qty: 360 0RF fenofibrate 54 mg tablet 54 mg PO DAILY 90 Days Qty: 90 1RF Discharge Date/Time: 05/22/24 18:08
[2024-05-22 15:00] LABS: MANUAL DIFF FLAG NO
[2024-05-22 15:03] LABS: Basophils Absolute Auto 0.1 X10*3/uL (0.0-0.2); Basophils Percent Auto 0.7 % (0-2); Eosinophils Absolute Auto 0.1 X10*3/uL (0.0-0.4); Eosinophils Percent Auto 1.4 % (0-4); Hematocrit 35.9 % (37.0-47.0); Hemoglobin 11.4 g/dl (12.0-16.0); Imm Gran Abs Auto 0.01 X10*3/uL (0.00-0.03); Imm Gran Pct Auto 0.1 % (0.0-0.4); Lymphocytes Absolute Auto 2.6 X10*3/uL (1.2-4.9); Lymphocytes Percent Auto 36.2 % (20-40); Mean Corpuscular HGB Conc 31.8 g/dl (31.0-35.0); Mean Corpuscular Hemoglobin 26.1 pg (27.0-33.0); Mean Corpuscular Volume 82.3 fL (80.0-98.0); Monocytes Absolute Auto 0.5 X10*3/uL (0.1-1.2); Monocytes Percent Auto 6.6 % (2-11); Platelet Count 288 X10*3/uL (160-400); Red Blood Count 4.36 X10*6/uL (4.20-5.50); Red Cell Distribution Width 14.5 % (11.0-16.0); White Blood Count 7.2 X10*3/uL (4.8-10.8)
[2024-05-22 15:17] LABS: Alanine Aminotransferase 19 U/L (0-31); Albumin Level 4.1 g/dL (3.5-5.0); Alkaline Phosphatase 97 U/L (39-117); Anion Gap 9 (12-20); Aspartate Amino Transferase 24 U/L (5-31); Bilirubin Total 0.4 mg/dL (0.0-1.0); Blood Urea Nitrogen 19 mg/dL (9-16); Calcium 9.2 mg/dL (8.4-10.2); Carbon Dioxide 27 mmol/L (22-29); Chloride 112 mmol/L (96-108); Creatinine Clr Calc Pharmacy 57.7; Estimated Glomerular Filt Rate 60; Glucose Random 92 mg/dL (60-115); Lipase 21 U/L (8-78); Magnesium 1.8 mg/dL (1.6-2.6); Potassium 3.5 mmol/L (3.3-5.1); Sodium 144 mmol/L (135-145); Total Protein 7.3 g/dL (6.5-8.0)
[2024-05-22 15:25] LABS: Troponin-I High Sensitivity < 2.7 ng/L (<3.5-17.0)
[2024-05-22 15:42] LABS: Influenza A PCR NEGATIVE (Negative); Influenza B PCR NEGATIVE (Negative); Resp Syncy Virus RNA Qual PCR NEGATIVE (Negative); SARS COV2 PCR INHOUSE NEGATIVE (Negative)
== END 2024-05-22 18:08 | disposition left against medical advice (07) ==
PROVIDERS: Physician Assistant Medical; Emergency Provider Emergency Medicine; PCP Internal Medicine
DX: R07.89 Other chest pain (principal); R51.9 Headache, unspecified; F17.210 Nicotine dependence, cigarettes, uncomplicated; Z03.818 Encounter for observation for suspected exposure to other biological agents ruled out; Z79.899 Other long term (current) drug therapy
CPT/HCPCS: 0241U; 70450; 71046; 80053; 83690; 83735; 84484; 85025; 93005; 99283; 99284

== ENCOUNTER → 2024-05-22 14:35 | Outpatient (BNV) | payer OTHER, SELFPAY | PROVIDERS: Emergency Provider Emergency Medicine; PCP Internal Medicine; Visit Provider Internal Medicine Cardiovascular Disease | DX: R07.9 Chest pain, unspecified (principal) | CPT/HCPCS: 93010 ==

== ENCOUNTER → 2024-05-26 13:24 | Outpatient (REF) | payer OTHER, SELFPAY | LOC: HO.CARD 13:24 | PROVIDERS: PCP Internal Medicine; Visit Provider Internal Medicine | DX: R00.2 Palpitations (principal) | CPT/HCPCS: 93225 ==

== ENCOUNTER → 2024-05-26 13:28 | Outpatient (BNV) | payer OTHER, SELFPAY | PROVIDERS: PCP Internal Medicine; Visit Provider Internal Medicine | DX: I47.10 Supraventricular tachycardia, unspecified (principal) | CPT/HCPCS: 93227 ==

== ENCOUNTER 2024-06-12 00:09 | Emergency (ER) | payer OTHER, SELFPAY ==
--- NOTE | 2024-06-12 00:13 | ECG_ITS ---
Test Reason : CHEST PAIN Blood Pressure : / mmHG Vent. Rate : 087 BPM Atrial Rate : 087 BPM P-R Int : 150 ms QRS Dur : 074 ms QT Int : 380 ms P-R-T Axes : 045 008 007 degrees QTc Int : 457 ms Normal sinus rhythm Minimal voltage criteria for LVH, may be normal variant ( R in aVL ) Borderline ECG When compared with ECG of 22-MAY-2024 14:33, No significant change was found Referred By: Generic ED Physician Electronically Signed By:Harry Suárez
[2024-06-12 00:15] VITALS: BP 161/92; PULSE 81; RESP 18; TEMP 36.8; O2SAT 98; BMI 28.7
--- NOTE | 2024-06-12 01:55 | ED_ITS ---
HPI - URI/Sore Throat General Chief Complaint: Upper Respiratory Symptoms Stated Complaint: Chest Pain Time Seen by Provider: 06/12/24 01:20 Source: patient Mode of arrival: ambulatory Limitations: no limitations History of Present Illness ED Provider: HPI Narrative: Patient with COPD/asthma overlap syndrome taking budesonide inhaler and albuterol comes here for over a month cough and congestion got worse in last 4 days patient was treated by photographic double with Zithromax last month but according to patient never cleared up in last 5 days she been more congested. Her grandkids were sick also 5 days ago no fever no chills has mucopurulent phlegm Related Data Previous Rx's ?Medication ?Instructions ?Recorded blood pressure monitor (Blood #1 ea 09/06/22 Pressure Kit) cane #1 ea 09/06/22 acetaminophen 500 mg tablet 1,000 mg (2 x 500 mg) PO TID PRN 10/07/22 pain #20 tabs underpads (Bed Underpads) #100 ea 03/28/23 walker #1 ea 03/28/23 fluticasone furoate 50 1 inh inhalation DAILY 30 days #30 06/22/23 mcg/actuation blister powder for ea inhalation (Arnuity Ellipta) ipratropium 20 mcg-albuterol 100 1 puff PO QID 30 days #25 mL 10/18/23 mcg/actuation mist for inhalation (Combivent Respimat) albuterol sulfate 2.5 mg/0.5 mL 5 mg inhalation Q4H PRN shortness 11/12/23 solution for nebulization of breath or wheezing #30 ea albuterol sulfate 90 mcg/actuation 2 puff inhalation Q4-6H PRN 11/12/23 aerosol inhaler shortness of breath or wheezing #6.7 grams meclizine 12.5 mg tablet 12.5 mg PO TID PRN dizziness #14 11/21/23 tabs loratadine 10 mg tablet 10 mg PO DAILY PRN for allergies 12/01/23 30 days #30 tabs clobetasol 0.05 % topical cream 1 appl topical BID 2 weeks #30 01/03/24 grams cyclobenzaprine 10 mg tablet 10 mg PO TID PRN muscle spasm #15 01/05/24 tabs lidocaine 5 % topical patch 1 patch topical DAILY #30 ea 01/05/24 (Lidoderm) naloxone 10 mg/0.4 mL 2 mg (0.08 mL) subcut Q3M 30 days 01/09/24 injection,auto-injector #4 mL clonazepam 0.5 mg tablet 0.5 mg PO BEDTIME PRN anxiety 30 01/21/24 days #60 tabs atorvastatin 20 mg tablet 20 mg PO BEDTIME 90 days #90 tabs 02/11/24 venlafaxine 37.5 mg 37.5 mg PO BEDTIME 90 days #90 caps 02/11/24 capsule,extended release 24 hr fluticasone propionate 50 2 spray intranasal Q12H 30 days 02/27/24 mcg/actuation nasal #16 grams spray,suspension (Flonase Allergy Relief) albuterol sulfate 2.5 mg/3 mL 2.5 mg (3 mL) inhalation Q6H PRN 04/03/24 (0.083 %) solution for nebulization bronchospasm 30 days #360 mL fluocinolone acetonide oil 0.01 % 5 drp otic (ears) BID 7 days #20 mL 04/03/24 ear drops (DermOtic Oil) nebulizers (AeroEclipse II #1 ea 04/03/24 Nebulizer) magnesium oxide 400 mg (241.3 mg 400 mg PO BEDTIME 30 days #30 tabs 04/16/24 magnesium) tablet riboflavin (vitamin B2) 400 mg 400 mg PO DAILY 30 days #30 tabs 04/16/24 tablet galcanezumab-gnlm 120 mg/mL 240 mg (2 mL) subcut ONCE 30 days 04/21/24 subcutaneous pen injector #2 mL (Emgality Pen) ondansetron 4 mg disintegrating 4 mg PO Q6H PRN nausea and 04/21/24 tablet vomiting #20 tabs rimegepant 75 mg disintegrating 75 mg PO ONCE PRN migraine 04/21/24 tablet (Nurtec ODT) headache 30 days #16 tabs budesonide-formoterol HFA 160 2 puff inhalation BID 30 days 04/22/24 mcg-4.5 mcg/actuation aerosol #10.2 grams inhaler (Symbicort) montelukast 10 mg tablet 10 mg PO BEDTIME 30 days #30 tabs 04/22/24 (Singulair) varenicline 0.5 mg (11)-1 mg (42) See Rx Instructions PO PER PKG DIR 04/22/24 tablets in a dose pack (Chantix #42 ea Starting Month Box) cholecalciferol (vitamin D3) 50 50 mcg PO DAILY 90 days #90 tabs 04/24/24 mcg (2,000 unit) tablet metoclopramide HCl 10 mg tablet 10 mg PO Q6H PRN nausea and 04/30/24 (Reglan) vomiting #14 tabs fenofibrate 54 mg tablet 54 mg PO DAILY 90 days #90 tabs 05/07/24 tramadol 50 mg tablet 50 mg PO BID PRN severe pain 05/27/24 (scale score 7-10) 30 days #60 tabs benzonatate 200 mg capsule 200 mg PO TID PRN cough #20 caps 06/12/24 doxycycline hyclate 100 mg tablet 100 mg PO BID #20 tabs 06/12/24 prednisone 20 mg tablet 40 mg (2 x 20 mg) PO DAILY #10 tabs 06/12/24 Allergies Allergy/AdvReac Type Severity Reaction Status Date / Time amitriptyline Allergy Intermediate headache Verified 06/12/24 00:21 ibuprofen [From Motrin] Allergy Intermediate ITCHY RASH Verified 06/12/24 00:21 gabapentin AdvReac Intermediate vomiting Verified 06/12/24 00:21 Review of Systems Review of Systems: Yes all other systems are reviewed and are negative [facility] Past Medical History Medical History Asthma-COPD overlap syndrome Acute maxillary sinusitis Otitis externa Hospital discharge follow-up Microscopic hematuria Physical exam Goiter Blurry vision Tobacco dependence Has daytime drowsiness Pulmonary nodules Moderate recurrent major depression Dyspnea Hand pain Skin lesion Leg pain, bilateral Dyslipidemia Epigastric pain Essential hypertension Cervical cancer screening GERD (gastroesophageal reflux disease) HTN (hypertension) Migraine Anxiety Depression Right lower quadrant pain Fibromyalgia Surgical History Previous section History of breast lump/mass excision History of lithotripsy H/O LEEP H/O tubal ligation Family History Family History Father Myocardial infarction Mother Lung cancer Brother Liver cancer Maternal Grandfather Stomach cancer Maternal Grandmother No problems noted. Social History Social History Housing: Apartment Alcohol intake: never Patient Tobacco Use Status: Current someday Tobacco user Tobacco use type: Cigarette Cigarettes Per Day: 3 Smoked in Last 30 Days: Yes e-Cigarette/Vaping Use: Never Used Second Hand Smoke Exposure: No Use of substances other than those prescribed or required for medical reasons: No Any prior treatment program specific to substance use: No Advance Directives: No Advance Directives Information Provided: Yes Do you have a plan to hurt others: No Plan Patient : No service: No Current occupational status: disabled Gender identity: Female Cognitive needs: No Hearing needs: No Vision needs: No Physical Exam Vital Signs: Vital Signs: Last Vital Signs Temp 97.8 F 06/12/24 02:00 Pulse 73 06/12/24 02:00 Resp 16 06/12/24 02:00 BP 166/94 H 06/12/24 02:00 Pulse Ox 99 06/12/24 02:00 O2 Del Method Room Air 06/12/24 02:00 BMI result Body Mass Index 28.7 Appearance: Alert. Oriented X3. No acute distress. Eyes: No pallor ENT: Pharynx normal. Oral Mucosa moist inflamed nasal turbinate Neck: Normal inspection. Neck supple. CVS: Normal heart rate and rhythm. Pulses normal. Respiratory: No respiratory distress. Equal air entry bilateral, bilateral prolonged expiration Abdomen: Soft and nontender. Bowel sounds are present, no mass palpable, no CVA tenderness Skin: Skin warm and dry. Normal skin color. Normal skin turgor. Extremities: No lower extremity edema. No calf tenderness Neuro: Oriented X 3. No motor deficit. No sensory deficit.No cerebellar signs , cranial nerves II-XII intact Medical Decision Making Lab Data MDM Lab Attestation statement: I reviewed the patient's lab results. Labs: Lab Results 06/12/24 06/12/24 Range/Units 02:01 02:43 Influenza Type A (PCR) NEGATIVE (Negative) Influenza Type B (PCR) NEGATIVE (Negative) RSV RNA Qual (PCR) NEGATIVE (Negative) SARS-CoV-2 RNA (RT-PCR) NEGATIVE (Negative) S. pyogenes GrpA DANTE Negative (Negative) Discharge Plan Discharge Clinical Impression: Bronchitis Patient Disposition: Home, Self-Care Instructions: Acute Bronchitis (ED) Additional Instructions: Take antibiotic as prescribed Cough drops as prescribed Take prednisone for 5 days as prescribed Follow up with your PCP/pulmonology Prescriptions: New benzonatate 200 mg capsule 200 mg PO TID PRN (Reason: cough) Qty: 20 0RF prednisone 20 mg tablet 40 mg PO DAILY Qty: 10 0RF doxycycline hyclate 100 mg tablet 100 mg PO BID Qty: 20 0RF No Action (DME) blood pressure monitor [Blood Pressure Kit] Kit See Rx Instructions .ROUTE .MEDSUPPLY Qty: 1 0RF Rx Instructions: As directed (DME) cane Device See Rx Instructions .Route Qty: 1 0RF Rx Instructions: As directed (DME) walker Misc See Rx Instructions .Route Qty: 1 0RF Rx Instructions: To be use lifetime (DME) underpads [Bed Underpads] Pad See Rx Instructions .Route Qty: 100 0RF Rx Instructions: As directed Arnuity Ellipta 50 mcg/actuation blister with device 1 inh inhalation DAILY 30 Days Qty: 30 6RF Combivent Respimat 20-100 mcg/actuation mist 1 puff PO QID 30 Days Qty: 25 1RF Patient Comments: Pulmo given loratadine 10 mg tablet 10 mg PO DAILY PRN (Reason: for allergies) 30 Days Qty: 30 1RF naloxone 10 mg/0.4 mL auto-injector 2 mg subcut Q3M 30 Days Qty: 4 0RF Rx Instructions: until desired response clonazepam 0.5 mg tablet 0.5 mg PO BEDTIME PRN (Reason: anxiety) 30 Days Qty: 60 1RF atorvastatin 20 mg tablet 20 mg PO BEDTIME 90 Days Qty: 90 1RF venlafaxine 37.5 mg capsule,extended release 24hr 37.5 mg PO BEDTIME 90 Days Qty: 90 1RF magnesium oxide 400 mg (241.3 mg magnesium) tablet 400 mg PO BEDTIME 30 Days Qty: 30 6RF Rx Instructions: may hold for loose stools riboflavin (vitamin B2) 400 mg tablet 400 mg PO DAILY 30 Days Qty: 30 6RF cholecalciferol (vitamin D3) 50 mcg (2,000 unit) tablet 50 mcg PO DAILY 90 Days Qty: 90 1RF tramadol 50 mg tablet 50 mg PO BID PRN (Reason: severe pain (scale score 7-10)) 30 Days Qty: 60 0RF acetaminophen 500 mg tablet 1,000 mg PO TID PRN (Reason: pain) Qty: 20 0RF lidocaine [Lidoderm] 5 % adhesive patch,medicated 1 patch topical DAILY Qty: 30 0RF Rx Instructions: leave on most painful area for up to 12 hrs cyclobenzaprine 10 mg tablet 10 mg PO TID PRN (Reason: muscle spasm) Qty: 15 0RF albuterol sulfate 90 mcg/actuation HFA aerosol inhaler 2 puff inhalation Q4-6H PRN (Reason: shortness of breath or wheezing) Qty: 6.7 0RF albuterol sulfate 2.5 mg/0.5 mL solution for nebulization 5 mg inhalation Q4H PRN (Reason: shortness of breath or wheezing) Qty: 30 0RF meclizine 12.5 mg tablet 12.5 mg PO TID PRN (Reason: dizziness) Qty: 14 0RF metoclopramide HCl [Reglan] 10 mg tablet 10 mg PO Q6H PRN (Reason: nausea and vomiting) Qty: 14 0RF clobetasol 0.05 % cream 1 appl topical BID 14 Days Qty: 30 0RF fluticasone propionate [Flonase Allergy Relief] 50 mcg/actuation spray,s uspension 2 spray intranasal Q12H 30 Days Qty: 16 0RF Rx Instructions: administer into each nostril Nurtec ODT 75 mg tablet,disintegrating 75 mg PO ONCE MDD 1 tab PRN (Reason: migraine headache) 30 Days Qty: 16 3RF Emgality Pen 120 mg/mL pen injector 240 mg subcut ONCE 30 Days Qty: 2 0RF Rx Instructions: Loading dose: 120 mg subcu injection x2 in alternate sites (total 240 mg). To be followed by maintenance dose of 120 mg subcu q.month. ondansetron 4 mg tablet,disintegrating 4 mg PO Q6H PRN (Reason: nausea and vomiting) Qty: 20 6RF budesonide-formoterol [Symbicort] 160-4.5 mcg/actuation HFA aerosol inhaler 2 puff inhalation BID 30 Days Qty: 10.2 11RF montelukast [Singulair] 10 mg tablet 10 mg PO BEDTIME 30 Days Qty: 30 11RF varenicline [Chantix Starting Month Box] 0.5 mg (11)- 1 mg (42) tablets,dose pack See Rx Instructions PO PER PKG DIR Qty: 42 0RF Rx Instructions: PO PER PKG DIR fluocinolone acetonide oil [DermOtic Oil] 0.01 % drops 5 drp otic (ears) BID 7 Days Qty: 20 0RF (DME) nebulizers [AeroEclipse II Nebulizer] Misc See Rx Instructions .Route Qty: 1 0RF Rx Instructions: As directed albuterol sulfate 2.5 mg /3 mL (0.083 %) solution for nebulization 2.5 mg inhalation Q6H PRN (Reason: bronchospasm) 30 Days Qty: 360 0RF fenofibrate 54 mg tablet 54 mg PO DAILY 90 Days Qty: 90 1RF Print Language: Ghanaian
[2024-06-12 02:00] VITALS: BP 166/94; PULSE 73; RESP 16; TEMP 36.6; O2SAT 99
--- NOTE | 2024-06-12 02:14 | PC.NURSE ---
ekg is a duplicate order verified with provider and no need for 2nd ekg.
[2024-06-12 02:42] LABS: Influenza A PCR NEGATIVE (Negative); Influenza B PCR NEGATIVE (Negative); Resp Syncy Virus RNA Qual PCR NEGATIVE (Negative); SARS COV2 PCR INHOUSE NEGATIVE (Negative)
[2024-06-12 02:55] LABS: IDNOW Serial# 58CA691E; Strep A Nucleic Acid Negative (Negative)
[2024-06-12] MEDS: predniSONE 20 MG TABLET 40 MG PO (03:55)
[2024-06-12] MEDS: Doxycycline Monohydrate 100 MG CAPSULE PO (03:55)
[2024-06-12 04:04] VITALS: BP 166/94; PULSE 73; RESP 16; TEMP 36.6; O2SAT 99
== END 2024-06-12 04:07 | disposition home or self-care (01) ==
PROVIDERS: Emergency Provider Internal Medicine; PCP Internal Medicine
DX: J40 Bronchitis, not specified as acute or chronic (principal); Z03.818 Encounter for observation for suspected exposure to other biological agents ruled out; R05.9 Cough, unspecified; F17.210 Nicotine dependence, cigarettes, uncomplicated
CPT/HCPCS: 0241U; 87651; 93005; 99283; 99285

== ENCOUNTER → 2024-06-12 00:13 | Outpatient (BNV) | payer OTHER, SELFPAY | PROVIDERS: Emergency Provider Internal Medicine; PCP Internal Medicine; Visit Provider Internal Medicine Cardiovascular Disease | DX: R07.9 Chest pain, unspecified (principal) | CPT/HCPCS: 93010 ==

== ENCOUNTER 2024-06-16 03:06 | Emergency (ER) | payer OTHER, SELFPAY ==
[2024-06-16 03:10] VITALS: BP 154/86; PULSE 84; RESP 16; TEMP 36.9; O2SAT 94; BMI 27.7
[2024-06-16 03:29] LABS: MANUAL DIFF FLAG NO
[2024-06-16 03:30] LABS: Basophils Percent Auto 0.2 % (0-2); Hematocrit 37.2 % (37.0-47.0); Hemoglobin 12.3 g/dl (12.0-16.0); Imm Gran Abs Auto 0.08 X10*3/uL (0.00-0.03); Imm Gran Pct Auto 0.6 % (0.0-0.4); Lymphocytes Absolute Auto 1.5 X10*3/uL (1.2-4.9); Lymphocytes Percent Auto 11.9 % (20-40); Mean Corpuscular HGB Conc 33.1 g/dl (31.0-35.0); Mean Corpuscular Hemoglobin 26.4 pg (27.0-33.0); Mean Corpuscular Volume 79.8 fL (80.0-98.0); Mean Platelet Volume 10.5 fL (9.4-12.3); Monocytes Absolute Auto 0.4 X10*3/uL (0.1-1.2); Monocytes Percent Auto 2.8 % (2-11); Neutrophils Absolute Auto 10.6 x10*3/uL (2.0-8.3); Neutrophils Percent Auto 84.5 % (45-73); Platelet Count 294 X10*3/uL (160-400); Red Blood Count 4.66 X10*6/uL (4.20-5.50); Red Cell Distribution Width 14.1 % (11.0-16.0); White Blood Count 12.5 X10*3/uL (4.8-10.8)
== END 2024-06-16 06:33 | disposition left against medical advice (07) ==
PROVIDERS: Emergency Provider Emergency Medicine; PCP Internal Medicine
DX: R51.9 Headache, unspecified (principal); R10.9 Unspecified abdominal pain; R11.0 Nausea; Z53.21 Procedure and treatment not carried out due to patient leaving prior to being seen by health care provider; J44.89 Other specified chronic obstructive pulmonary disease; R91.8 Other nonspecific abnormal finding of lung field; R40.0 Somnolence; R06.00 Dyspnea, unspecified; R06.02 Shortness of breath; F17.200 Nicotine dependence, unspecified, uncomplicated; F17.210 Nicotine dependence, cigarettes, uncomplicated
CPT/HCPCS: 36415; 85025; 99212; 99281

== ENCOUNTER 2024-06-16 14:40 | Outpatient (AMB) | payer OTHER, SELFPAY ==
[2024-06-16 14:54] VITALS: BP 128/88; PULSE 86; O2SAT 97; BMI 27.4
--- NOTE | 2024-06-16 14:54 | MHC.OFFVIS ---
Vital Signs 06/16/24 14:54 Height 5 ft 1 in Weight 145 lb BMI 27.4 BP 128/88 Blood Pressure Location Lt brachial Position Sitting Pulse 86 Pulse Source Pulse Oximeter Pulse Oximetry (%) 97 Oxygen Delivery Method Room Air Intake Visit Reasons: Asthma-COPD overlap Allergies amitriptyline Allergy (Intermediate, Verified 06/16/24 14:56) headache ibuprofen [From Motrin] Allergy (Intermediate, Verified 06/16/24 14:56) ITCHY RASH gabapentin Adverse Reaction (Intermediate, Verified 06/16/24 14:56) vomiting HPI Comments Details: The patient is a 53-year-old woman with a known history of obstructive airway disease in addition to history of pulmonary nodules. Apparently she was in her usual state health until back in the spring of 2020 when she developed COVID. She started developing worsening respiratory symptoms along with dyspnea on exertion. She does use her rescue inhaler and also has a Combivent inhaler that she also finds helpful. She did not require hospitalization for the COVID. Ultimately she did undergo a CT scan of the abdomen over the summer because of worsening abdominal discomfort. We could review the CT scan images. She has multiple pulmonary nodules subcentimeter in size at least at a could see within the lung windows of the CT scan of the abdomen. Some of the nodules were calcified and some of them were noncalcified. She does smoke cigarettes, therefore she is high risk for cancer. The patient should have a formal CT scan of the chest to address the whole lung tissue. In addition to that she does describe significant daytime drowsiness. The patient has issues with headaches in the morning. She does have an elevated Start score 11/24. His hard time completing her activities of daily living due to her significant fatigue. She also carries a diagnosis of fibromyalgia. Based on her significant symptoms and cardiovascular risk factors the patient should have a home sleep study at this time. 04/22/2024 the patient is here for a pulmonary follow-up visit. The patient has multiple complaints. She has not been seen in some time. She has been complaining significant sinus congestion and chronic rhinitis. She does have significant allergies. She has also noticed that she has been coughing more with some chest congestion as well. She has been having to use her respiratory inhalers on a regular basis on a daily basis due to significant shortness of breath and cough and shortness of breath. The patient needs to quit smoking. She is willing to try Chantix at this time. On exam she does have significant chronic rhinitis and she does have some wheezing on examination. Therefore, will optimize her allergy therapy and also optimize her respiratory inhaler therapy. I am hopeful that she can quit with Chantix and hopefully improve her respiratory status. She does complaint of the coughing the shortness of breath. Previous CT scan demonstrated pulmonary nodules. Will go ahead and repeat a CT scan at this time. If the CT scan stable we can get her involved in the lung cancer screening program to get her further situated with with cancer screening. 06/16/2024 the patient is here for a pulmonary follow-up visit. She has been sick now for several months. She has required urgent care evaluations. Required 2 courses of prednisone and also 2 courses of antibiotics. She also was recently seen at the ER at [place] because of elevated blood pressure. She became very concerned. She went home she did take hydrochlorothiazide that she had available that she had taken in the past but then it was stopped because of some issues with electrolytes. The patient has been still smoking. She is working on quitting. She would be a great candidate for the lung cancer screening program. [facility] Medical History (Updated 06/16/24 @ 15:22 by Donato Marinelli MD) Smoking 1/2 pack a day or less Asthma-COPD overlap syndrome Acute maxillary sinusitis Otitis externa Hospital discharge follow-up Microscopic hematuria Physical exam Goiter Blurry vision Tobacco dependence Has daytime drowsiness Pulmonary nodules Moderate recurrent major depression Dyspnea Hand pain Skin lesion Leg pain, bilateral Dyslipidemia Epigastric pain Essential hypertension Cervical cancer screening GERD (gastroesophageal reflux disease) HTN (hypertension) Migraine Anxiety Depression Right lower quadrant pain Fibromyalgia Surgical History Previous section History of breast lump/mass excision History of lithotripsy H/O LEEP H/O tubal ligation Family History Father Myocardial infarction Mother Lung cancer Brother Liver cancer Maternal Grandfather Stomach cancer Maternal Grandmother No problems noted. Social History Housing: Apartment Alcohol intake: never Patient Tobacco Use Status: Current someday Tobacco user Tobacco use type: Cigarette Cigarettes Per Day: 3 e-Cigarette/Vaping Use: Never Used Second Hand Smoke Exposure: No service: No Current occupational status: disabled Gender identity: Female Cognitive needs: No Hearing needs: No Vision needs: No Female Reproductive History Menstrual Age of Menarche: 9 Review of Systems Const Reports daytime sleepiness and Reports headache(s) Eyes Reports no additional complaints, Denies change in vision and Denies other visual disturbances ENT Reports headache(s) Card Denies chest pain at rest, Denies chest pain with activity, Denies edema, Denies irregular heart rhythm, Denies claudication, Reports dyspnea, Denies dyspnea on exertion, Denies orthopnea, Denies paroxysmal nocturnal dyspnea and Denies slow heart rate Resp Reports cough, Reports dyspnea and Denies dyspnea on exertion GI Denies abdominal pain, Denies change in bowel habits, Denies excessive flatus, Reports dyspepsia, Reports heartburn, Denies nausea and Denies vomiting Denies urinary incontinence, Denies urinary hesitancy and Denies urinary urgency Musc Denies abnormal gait, Denies atrophy, Denies deformity, Reports arthralgias and Denies limited range of motion Skin/Breast Denies bleeding lesions, Denies changing lesions and Denies rash Neuro Denies abnormal gait, Denies confusion and Reports headache(s) Psych Reports anxiety, Denies confusion and Reports depression Physical Exam Vital Signs: Last Vital Signs Pulse 86 06/16/24 14:54 BP 128/88 06/16/24 14:54 Pulse Ox 97 06/16/24 14:54 Oxygen Delivery Method Room Air 06/16/24 14:54 BMI result Body Mass Index 27.4 Const General: No confusion Orientation/consciousness: No confusion HEENT General nose exam: Abnormal external nose present and Nasal discharge present Chest Chest palpation & inspection: normal inspection of the chest Resp Auscultation: wheezes and diminished lung sounds Cardio Rate: regular rate Rhythm: regular rhythm Heart sounds: S1 normal heart sound present and S2 normal heart sound present GI Palpation (GI): Soft to palpation and nontender Auscultation: normal bowel sounds Skin General skin exam: rashes and/or lesions noted Neuro General: No confusion Quality Reporting (2019) Adult ([facility] 138/2/) Smoking risk assessment performed?: Yes Patient Tobacco Use Status: Current someday Tobacco user Assessment & Plan Assessment & Plan (1) Asthma-COPD overlap syndrome: Code(s): J44.89 - Other specified chronic obstructive pulmonary disease Category: Medical (2) Pulmonary nodules: Code(s): R91.8 - Other nonspecific abnormal finding of lung field Category: Medical (3) Has daytime drowsiness: Code(s): R40.0 - Somnolence Category: Social Hx (4) Dyspnea: Code(s): R06.00 - Dyspnea, unspecified Category: Medical Qualifiers: Dyspnea type: shortness of breath Qualified Code(s): R06.02 - Shortness of breath (5) Tobacco dependence: Code(s): F17.200 - Nicotine dependence, unspecified, uncomplicated Category: Medical (6) Smoking 1/2 pack a day or less: Code(s): F17.210 - Nicotine dependence, cigarettes, uncomplicated Category: Social Hx Plan Symbicort start medrol pk continue Doxycycline restart Singulair Continue combivent STEPHANY as needed referral to LDCT program Tobacco dependedncy, consider Chantix. Will monitor for depressive symptoms F/U 4-6 months Orders: Referrals Lung Cancer Screening Referral F17.210 - Nicotine dependence, cigarettes, uncomplicated Medications: New montelukast 10 mg PO DAILY 30 tabs 11RF 30 days J45.909 - Unspecified asthma, uncomplicated methylprednisolone (Medrol (Pantera)) PO PER PKG DIR 21 ea 0RF 6 days Coding Level of Care Code Est Pt Level 4 (06740) Diagnoses Asthma-COPD overlap syndrome J44.89 Pulmonary nodules R91.8 Has daytime drowsiness R40.0 Shortness of breath R06.02 Dyspnea type: shortness of breath Tobacco dependence F17.200 Smoking 1/2 pack a day or less F17.210 Time Spent (min) 16
== END 2024-06-16 15:25 | disposition home or self-care (01) ==
PROVIDERS: PCP Internal Medicine; Visit Provider Hospitalist
DX: J44.89 Other specified chronic obstructive pulmonary disease (principal); R91.8 Other nonspecific abnormal finding of lung field; R40.0 Somnolence; R06.02 Shortness of breath; F17.200 Nicotine dependence, unspecified, uncomplicated; F17.210 Nicotine dependence, cigarettes, uncomplicated
CPT/HCPCS: 99214

== ENCOUNTER 2024-06-17 18:50 | Emergency (ER) | payer OTHER, SELFPAY ==
--- NOTE | ~2024-06-17 | XR_ITS ---
CLINICAL HISTORY: chest pain, dyspnea 2 view chest x-ray. Comparison: 05/22/2024 Findings: Lungs are clear without acute infiltrates. Scattered calcified granulomas. No pneumothorax. Heart size normal. No acute bony abnormalities. Impression: No acute processes This document has been electronically signed by: Cornelio Thomas MD on 06/17/2024 20:02:21
[2024-06-17 19:02] VITALS: BP 141/87; PULSE 81; RESP 18; TEMP 36.7; O2SAT 99; BMI 27.5
--- NOTE | 2024-06-17 19:02 | ED.GENADULT ---
HPI - General Adult General Chief complaint: Chest Pain Stated complaint: Dizziness/Body aches Related Data Previous Rx's ?Medication ?Instructions ?Recorded blood pressure monitor (Blood #1 ea 09/06/22 Pressure Kit) cane #1 ea 09/06/22 acetaminophen 500 mg tablet 1,000 mg (2 x 500 mg) PO TID PRN 10/07/22 pain #20 tabs underpads (Bed Underpads) #100 ea 03/28/23 walker #1 ea 03/28/23 ipratropium 20 mcg-albuterol 100 1 puff PO QID 30 days #25 mL 10/18/23 mcg/actuation mist for inhalation (Combivent Respimat) albuterol sulfate 2.5 mg/0.5 mL 5 mg inhalation Q4H PRN shortness 11/12/23 solution for nebulization of breath or wheezing #30 ea albuterol sulfate 90 mcg/actuation 2 puff inhalation Q4-6H PRN 11/12/23 aerosol inhaler shortness of breath or wheezing #6.7 grams meclizine 12.5 mg tablet 12.5 mg PO TID PRN dizziness #14 11/21/23 tabs loratadine 10 mg tablet 10 mg PO DAILY PRN for allergies 12/01/23 30 days #30 tabs clobetasol 0.05 % topical cream 1 appl topical BID 2 weeks #30 01/03/24 grams cyclobenzaprine 10 mg tablet 10 mg PO TID PRN muscle spasm #15 01/05/24 tabs lidocaine 5 % topical patch 1 patch topical DAILY #30 ea 01/05/24 (Lidoderm) naloxone 10 mg/0.4 mL 2 mg (0.08 mL) subcut Q3M 30 days 01/09/24 injection,auto-injector #4 mL clonazepam 0.5 mg tablet 0.5 mg PO BEDTIME PRN anxiety 30 01/21/24 days #60 tabs atorvastatin 20 mg tablet 20 mg PO BEDTIME 90 days #90 tabs 02/11/24 venlafaxine 37.5 mg 37.5 mg PO BEDTIME 90 days #90 caps 02/11/24 capsule,extended release 24 hr fluticasone propionate 50 2 spray intranasal Q12H 30 days 02/27/24 mcg/actuation nasal #16 grams spray,suspension (Flonase Allergy Relief) albuterol sulfate 2.5 mg/3 mL 2.5 mg (3 mL) inhalation Q6H PRN 04/03/24 (0.083 %) solution for nebulization bronchospasm 30 days #360 mL fluocinolone acetonide oil 0.01 % 5 drp otic (ears) BID 7 days #20 mL 04/03/24 ear drops (DermOtic Oil) nebulizers (AeroEclipse II #1 ea 04/03/24 Nebulizer) magnesium oxide 400 mg (241.3 mg 400 mg PO BEDTIME 30 days #30 tabs 04/16/24 magnesium) tablet riboflavin (vitamin B2) 400 mg 400 mg PO DAILY 30 days #30 tabs 04/16/24 tablet galcanezumab-gnlm 120 mg/mL 240 mg (2 mL) subcut ONCE 30 days 04/21/24 subcutaneous pen injector #2 mL (Emgality Pen) ondansetron 4 mg disintegrating 4 mg PO Q6H PRN nausea and 04/21/24 tablet vomiting #20 tabs rimegepant 75 mg disintegrating 75 mg PO ONCE PRN migraine 04/21/24 tablet (Nurtec ODT) headache 30 days #16 tabs montelukast 10 mg tablet 10 mg PO BEDTIME 30 days #30 tabs 04/22/24 (Singulair) varenicline 0.5 mg (11)-1 mg (42) See Rx Instructions PO PER PKG DIR 04/22/24 tablets in a dose pack (Chantix #42 ea Starting Month Box) cholecalciferol (vitamin D3) 50 50 mcg PO DAILY 90 days #90 tabs 04/24/24 mcg (2,000 unit) tablet metoclopramide HCl 10 mg tablet 10 mg PO Q6H PRN nausea and 04/30/24 (Reglan) vomiting #14 tabs fenofibrate 54 mg tablet 54 mg PO DAILY 90 days #90 tabs 05/07/24 tramadol 50 mg tablet 50 mg PO BID PRN severe pain 05/27/24 (scale score 7-10) 30 days #60 tabs benzonatate 200 mg capsule 200 mg PO TID PRN cough #20 caps 06/12/24 doxycycline hyclate 100 mg tablet 100 mg PO BID #20 tabs 06/12/24 prednisone 20 mg tablet 40 mg (2 x 20 mg) PO DAILY #10 tabs 06/12/24 methylprednisolone 4 mg tablets in See Rx Instructions PO PER PKG DIR 06/16/24 a dose pack (Medrol (Pantera)) 6 days #21 ea montelukast 10 mg tablet 10 mg PO DAILY 30 days #30 tabs 06/16/24 benzonatate 100 mg capsule 100 mg PO TID PRN cough #14 caps 06/19/24 Allergies Allergy/AdvReac Type Severity Reaction Status Date / Time amitriptyline Allergy Intermediate headache Verified 06/19/24 16:45 ibuprofen [From Motrin] Allergy Intermediate ITCHY RASH Verified 06/19/24 16:45 gabapentin AdvReac Intermediate vomiting Verified 06/19/24 16:45 PMFSH Past Medical History Medical History Smoking 1/2 pack a day or less Asthma-COPD overlap syndrome Acute maxillary sinusitis Otitis externa Hospital discharge follow-up Microscopic hematuria Physical exam Goiter Blurry vision Tobacco dependence Has daytime drowsiness Pulmonary nodules Moderate recurrent major depression Dyspnea Hand pain Skin lesion Leg pain, bilateral Dyslipidemia Epigastric pain Essential hypertension Cervical cancer screening GERD (gastroesophageal reflux disease) HTN (hypertension) Migraine Anxiety Depression Right lower quadrant pain Fibromyalgia Surgical History Previous section History of breast lump/mass excision History of lithotripsy H/O LEEP H/O tubal ligation Family History Family History Father Myocardial infarction Mother Lung cancer Brother Liver cancer Maternal Grandfather Stomach cancer Maternal Grandmother No problems noted. Social History Social History Housing: Apartment Alcohol intake: never Patient Tobacco Use Status: Current someday Tobacco user Tobacco use type: Cigarette Cigarettes Per Day: 3 Smoked in Last 30 Days: Yes e-Cigarette/Vaping Use: Never Used Second Hand Smoke Exposure: No Use of substances other than those prescribed or required for medical reasons: No Advance Directives: No Advance Directives Information Provided: No Do you have a plan to hurt others: No Plan service: No Current occupational status: disabled Gender identity: Female Cognitive needs: No Hearing needs: No Vision needs: No Physical Exam ED Vital Signs: BMI result Body Mass Index 27.5 Course Course Course Narrative: This is a rapid medical exam performed by Clementina Bowens NP: Additional HPI, ROS, PE not included below will be deferred to primary provider. Patient is a 53-year-old Frisian speaking female presenting with complaint of headache, shortness of breath, and constant chest pain. Feels shaky, dizzy/lightheaded. Recently treated for bronchitis, family member just tested positive for Covid. Plan: viral serology, EKG, labs Medical Decision Making Lab Data 06/17/24 19:17 06/17/24 19:17 Labs: Lab Results 06/17/24 Range/Units 19:17 WBC 8.6 (4.8-10.8) X10*3/uL RBC 4.90 (4.20-5.50) X10*6/uL Hgb 13.2 (12.0-16.0) g/dl Hct 38.9 (37.0-47.0) % MCV 79.4 L (80.0-98.0) fL MCH 26.9 L (27.0-33.0) pg MCHC 33.9 (31.0-35.0) g/dl RDW 14.1 (11.0-16.0) % Plt Count 286 (160-400) X10*3/uL MPV 10.6 (9.4-12.3) fL Immature Gran % (Auto) 0.5 H (0.0-0.4) % Neut % (Auto) 52.9 (45-73) % Lymph % (Auto) 34.0 (20-40) % [place] % (Auto) 8.8 (2-11) % Eos % (Auto) 3.0 (0-4) % Baso % (Auto) 0.8 (0-2) % Lymph # (Auto) 2.9 (1.2-4.9) X10*3/uL [place] # (Auto) 0.8 (0.1-1.2) X10*3/uL Eos # (Auto) 0.3 (0.0-0.4) X10*3/uL Baso # (Auto) 0.1 (0.0-0.2) X10*3/uL Abs Immat Gran (auto) 0.04 H (0.00-0.03) X10*3/uL Absolute Neuts (auto) 4.6 (2.0-8.3) x10*3/uL Absolute Nucleated RBC 0.000 (0.0-0.012) X10*3/uL Nucleated RBC % (auto) 0.0 (0.0-0.2) /100WBC PT 11.9 (10.9-12.4) SEC INR 1.0 (0.9-1.1) Sodium 140 (135-145) mmol/L Potassium 3.0 L (3.3-5.1) mmol/L Chloride 103 (96-108) mmol/L Carbon Dioxide 24 (22-29) mmol/L Anion Gap 16 (12-20) BUN 23 H (9-16) mg/dL Creatinine 0.97 (0.5-1.4) mg/dL Estim Creat Clear Calc 57.0 Estimated GFR 60 Random Glucose 94 (60-115) mg/dL Calcium 9.6 (8.4-10.2) mg/dL Magnesium 1.6 (1.6-2.6) mg/dL Total Bilirubin 0.5 (0.0-1.0) mg/dL AST 31 (5-31) U/L ALT 42 H (0-31) U/L Alkaline Phosphatase 120 H (39-117) U/L Troponin I High Sens < 2.7 (<3.5-17.0) ng/L Total Protein 7.8 (6.5-8.0) g/dL Albumin 4.2 (3.5-5.0) g/dL Influenza Type A (PCR) NEGATIVE (Negative) Influenza Type B (PCR) NEGATIVE (Negative) RSV RNA Qual (PCR) POSITIVE A (Negative) SARS-CoV-2 RNA (RT-PCR) NEGATIVE (Negative) Discharge Plan Discharge Clinical Impression: Eloped from emergency department Patient Disposition: Left W/O Completing Treatment Prescriptions: No Action (DME) blood pressure monitor [Blood Pressure Kit] Kit See Rx Instructions .ROUTE .MEDSUPPLY Qty: 1 0RF Rx Instructions: As directed (DME) cane Device See Rx Instructions .Route Qty: 1 0RF Rx Instructions: As directed (DME) walker Misc See Rx Instructions .Route Qty: 1 0RF Rx Instructions: To be use lifetime (DME) underpads [Bed Underpads] Pad See Rx Instructions .Route Qty: 100 0RF Rx Instructions: As directed Combivent Respimat 20-100 mcg/actuation mist 1 puff PO QID 30 Days Qty: 25 1RF Patient Comments: Pulmo given loratadine 10 mg tablet 10 mg PO DAILY PRN (Reason: for allergies) 30 Days Qty: 30 1RF naloxone 10 mg/0.4 mL auto-injector 2 mg subcut Q3M 30 Days Qty: 4 0RF Rx Instructions: until desired response clonazepam 0.5 mg tablet 0.5 mg PO BEDTIME PRN (Reason: anxiety) 30 Days Qty: 60 1RF atorvastatin 20 mg tablet 20 mg PO BEDTIME 90 Days Qty: 90 1RF venlafaxine 37.5 mg capsule,extended release 24hr 37.5 mg PO BEDTIME 90 Days Qty: 90 1RF magnesium oxide 400 mg (241.3 mg magnesium) tablet 400 mg PO BEDTIME 30 Days Qty: 30 6RF Rx Instructions: may hold for loose stools riboflavin (vitamin B2) 400 mg tablet 400 mg PO DAILY 30 Days Qty: 30 6RF cholecalciferol (vitamin D3) 50 mcg (2,000 unit) tablet 50 mcg PO DAILY 90 Days Qty: 90 1RF tramadol 50 mg tablet 50 mg PO BID PRN (Reason: severe pain (scale score 7-10)) 30 Days Qty: 60 0RF acetaminophen 500 mg tablet 1,000 mg PO TID PRN (Reason: pain) Qty: 20 0RF lidocaine [Lidoderm] 5 % adhesive patch,medicated 1 patch topical DAILY Qty: 30 0RF Rx Instructions: leave on most painful area for up to 12 hrs cyclobenzaprine 10 mg tablet 10 mg PO TID PRN (Reason: muscle spasm) Qty: 15 0RF albuterol sulfate 90 mcg/actuation HFA aerosol inhaler 2 puff inhalation Q4-6H PRN (Reason: shortness of breath or wheezing) Qty: 6.7 0RF albuterol sulfate 2.5 mg/0.5 mL solution for nebulization 5 mg inhalation Q4H PRN (Reason: shortness of breath or wheezing) Qty: 30 0RF meclizine 12.5 mg tablet 12.5 mg PO TID PRN (Reason: dizziness) Qty: 14 0RF metoclopramide HCl [Reglan] 10 mg tablet 10 mg PO Q6H PRN (Reason: nausea and vomiting) Qty: 14 0RF benzonatate 200 mg capsule 200 mg PO TID PRN (Reason: cough) Qty: 20 0RF prednisone 20 mg tablet 40 mg PO DAILY Qty: 10 0RF doxycycline hyclate 100 mg tablet 100 mg PO BID Qty: 20 0RF benzonatate 100 mg capsule 100 mg PO TID PRN (Reason: cough) Qty: 14 0RF clobetasol 0.05 % cream 1 appl topical BID 14 Days Qty: 30 0RF fluticasone propionate [Flonase Allergy Relief] 50 mcg/actuation spray,suspension 2 spray intranasal Q12H 30 Days Qty: 16 0RF Rx Instructions: administer into each nostril Nurtec ODT 75 mg tablet,disintegrating 75 mg PO ONCE MDD 1 tab PRN (Reason: migraine headache) 30 Days Qty: 16 3RF Emgality Pen 120 mg/mL pen injector 240 mg subcut ONCE 30 Days Qty: 2 0RF Rx Instructions: Loading dose: 120 mg subcu injection x2 in alternate sites (total 240 mg). To be followed by maintenance dose of 120 mg subcu q.month. ondansetron 4 mg tablet,disintegrating 4 mg PO Q6H PRN (Reason: nausea and vomiting) Qty: 20 6RF montelukast 10 mg tablet 10 mg PO DAILY 30 Days Qty: 30 11RF methylprednisolone [Medrol (Pantera)] 4 mg tablets,dose pack See Rx Instructions PO PER PKG DIR 6 Days Qty: 21 0RF Rx Instructions: PO PER PKG DIR montelukast [Singulair] 10 mg tablet 10 mg PO BEDTIME 30 Days Qty: 30 11RF varenicline [Chantix Starting Month Box] 0.5 mg (11)- 1 mg (42) tablets,dose pack See Rx Instructions PO PER PKG DIR Qty: 42 0RF Rx Instructions: PO PER PKG DIR fluocinolone acetonide oil [DermOtic Oil] 0.01 % drops 5 drp otic (ears) BID 7 Days Qty: 20 0RF (DME) nebulizers [AeroEclipse II Nebulizer] Misc See Rx Instructions .Route Qty: 1 0RF Rx Instructions: As directed albuterol sulfate 2.5 mg /3 mL (0.083 %) solution for nebulization 2.5 mg inhalation Q6H PRN (Reason: bronchospasm) 30 Days Qty: 360 0RF fenofibrate 54 mg tablet 54 mg PO DAILY 90 Days Qty: 90 1RF Discharge Date/Time: 06/17/24 21:31
--- NOTE | 2024-06-17 19:03 | ECG_ITS ---
Test Reason : CHESTPAIN Blood Pressure : / mmHG Vent. Rate : 082 BPM Atrial Rate : 082 BPM P-R Int : 146 ms QRS Dur : 070 ms QT Int : 372 ms P-R-T Axes : 059 014 002 degrees QTc Int : 434 ms Normal sinus rhythm Normal ECG When compared with ECG of 12-JUN-2024 00:16, No significant change was found Referred By: Yessenia Bowens Electronically Signed By:MARILU MANN MD
[2024-06-17 19:21] LABS: MANUAL DIFF FLAG NO
[2024-06-17 19:25] LABS: Basophils Absolute Auto 0.1 X10*3/uL (0.0-0.2); Basophils Percent Auto 0.8 % (0-2); Eosinophils Absolute Auto 0.3 X10*3/uL (0.0-0.4); Hematocrit 38.9 % (37.0-47.0); Hemoglobin 13.2 g/dl (12.0-16.0); Imm Gran Abs Auto 0.04 X10*3/uL (0.00-0.03); Imm Gran Pct Auto 0.5 % (0.0-0.4); Lymphocytes Absolute Auto 2.9 X10*3/uL (1.2-4.9); Mean Corpuscular HGB Conc 33.9 g/dl (31.0-35.0); Mean Corpuscular Hemoglobin 26.9 pg (27.0-33.0); Mean Corpuscular Volume 79.4 fL (80.0-98.0); Mean Platelet Volume 10.6 fL (9.4-12.3); Monocytes Absolute Auto 0.8 X10*3/uL (0.1-1.2); Monocytes Percent Auto 8.8 % (2-11); Neutrophils Absolute Auto 4.6 x10*3/uL (2.0-8.3); Neutrophils Percent Auto 52.9 % (45-73); Platelet Count 286 X10*3/uL (160-400); Red Cell Distribution Width 14.1 % (11.0-16.0); White Blood Count 8.6 X10*3/uL (4.8-10.8)
[2024-06-17 19:36] LABS: Alanine Aminotransferase 42 U/L (0-31); Albumin Level 4.2 g/dL (3.5-5.0); Alkaline Phosphatase 120 U/L (39-117); Anion Gap 16 (12-20); Aspartate Amino Transferase 31 U/L (5-31); Bilirubin Total 0.5 mg/dL (0.0-1.0); Blood Urea Nitrogen 23 mg/dL (9-16); Calcium 9.6 mg/dL (8.4-10.2); Carbon Dioxide 24 mmol/L (22-29); Chloride 103 mmol/L (96-108); Estimated Glomerular Filt Rate 60; Glucose Random 94 mg/dL (60-115); Magnesium 1.6 mg/dL (1.6-2.6); Sodium 140 mmol/L (135-145); Total Protein 7.8 g/dL (6.5-8.0)
[2024-06-17 19:43] LABS: Prothrombin Time 11.9 SEC (10.9-12.4)
[2024-06-17 19:47] LABS: Troponin-I High Sensitivity < 2.7 ng/L (<3.5-17.0)
[2024-06-17 20:09] LABS: Influenza A PCR NEGATIVE (Negative); Influenza B PCR NEGATIVE (Negative); Resp Syncy Virus RNA Qual PCR POSITIVE (Negative); SARS COV2 PCR INHOUSE NEGATIVE (Negative)
== END 2024-06-17 21:31 | disposition left against medical advice (07) ==
LOC: HO.ED 21:28
PROVIDERS: Registered Nurse Emergency; Emergency Provider Emergency Medicine; PCP Internal Medicine
DX: R07.89 Other chest pain (principal); R42 Dizziness and giddiness; M79.10 Myalgia, unspecified site; F17.210 Nicotine dependence, cigarettes, uncomplicated; Z79.899 Other long term (current) drug therapy; Z03.818 Encounter for observation for suspected exposure to other biological agents ruled out
CPT/HCPCS: 0241U; 36415; 71046; 80053; 83735; 84484; 85025; 85610; 93005; 99283

== ENCOUNTER → 2024-06-17 19:03 | Outpatient (BNV) | payer OTHER, SELFPAY | PROVIDERS: Emergency Provider Emergency Medicine; PCP Internal Medicine; Visit Provider Internal Medicine Cardiovascular Disease | DX: R07.9 Chest pain, unspecified (principal) | CPT/HCPCS: 93010 ==

== ENCOUNTER → 2024-06-17 19:03 | Outpatient (BNV) | payer OTHER, SELFPAY | PROVIDERS: PCP Internal Medicine; Visit Provider Radiology Diagnostic Radiology | DX: R07.9 Chest pain, unspecified (principal); R06.00 Dyspnea, unspecified | CPT/HCPCS: 71046 ==

== ENCOUNTER 2024-06-19 16:26 | Emergency (ER) | payer OTHER, SELFPAY ==
--- NOTE | ~2024-06-19 | XR_ITS ---
CLINICAL HISTORY: pneumonia? 1 view chest x-ray Comparison: CR - XR CHEST 2V - 06/17/24 19:27 EST Findings: No consolidation, pleural effusion or pneumothorax. Again seen are several small scattered pulmonary granulomas. Heart size is normal. No acute fracture. IMPRESSION: 1. No acute findings. This document has been electronically signed by: Bita Berry DO on 06/19/2024 18:26:48
--- NOTE | 2024-06-19 16:29 | ECG_ITS ---
Test Reason : CP Blood Pressure : / mmHG Vent. Rate : 087 BPM Atrial Rate : 087 BPM P-R Int : 124 ms QRS Dur : 076 ms QT Int : 348 ms P-R-T Axes : 039 013 008 degrees QTc Int : 418 ms Normal sinus rhythm Minimal voltage criteria for LVH, may be normal variant ( R in aVL ) Nonspecific ST abnormality Abnormal ECG When compared with ECG of 17-JUN-2024 19:12, No significant change was found Referred By: Miller Villalta Electronically Signed By:MARILU MANN MD
[2024-06-19 16:42] VITALS: BP 149/82; PULSE 82; RESP 19; TEMP 36.5; O2SAT 98; BMI 27.8
--- NOTE | 2024-06-19 16:51 | ED_ITS ---
HPI - General Adult General Chief complaint: Psychiatric Symptoms Stated complaint: chest pain,sob asthma Time Seen by Provider: 06/19/24 19:12 Source: patient Mode of arrival: ambulatory Limitations: no limitations History of Present Illness ED Provider: Dr. Veronika Shoemaker HPI narrative: Patient comes to emergency room complaining of cough, congestion for about a week. Patient states that she also feels depressed, mentioned suicidal ideation in triage with no plan. Related Data Previous Rx's ?Medication ?Instructions ?Recorded blood pressure monitor (Blood #1 ea 09/06/22 Pressure Kit) cane #1 ea 09/06/22 acetaminophen 500 mg tablet 1,000 mg (2 x 500 mg) PO TID PRN 10/07/22 pain #20 tabs underpads (Bed Underpads) #100 ea 03/28/23 walker #1 ea 03/28/23 ipratropium 20 mcg-albuterol 100 1 puff PO QID 30 days #25 mL 10/18/23 mcg/actuation mist for inhalation (Combivent Respimat) albuterol sulfate 2.5 mg/0.5 mL 5 mg inhalation Q4H PRN shortness 11/12/23 solution for nebulization of breath or wheezing #30 ea albuterol sulfate 90 mcg/actuation 2 puff inhalation Q4-6H PRN 11/12/23 aerosol inhaler shortness of breath or wheezing #6.7 grams meclizine 12.5 mg tablet 12.5 mg PO TID PRN dizziness #14 11/21/23 tabs loratadine 10 mg tablet 10 mg PO DAILY PRN for allergies 12/01/23 30 days #30 tabs clobetasol 0.05 % topical cream 1 appl topical BID 2 weeks #30 01/03/24 grams cyclobenzaprine 10 mg tablet 10 mg PO TID PRN muscle spasm #15 01/05/24 tabs lidocaine 5 % topical patch 1 patch topical DAILY #30 ea 01/05/24 (Lidoderm) naloxone 10 mg/0.4 mL 2 mg (0.08 mL) subcut Q3M 30 days 01/09/24 injection,auto-injector #4 mL clonazepam 0.5 mg tablet 0.5 mg PO BEDTIME PRN anxiety 30 01/21/24 days #60 tabs atorvastatin 20 mg tablet 20 mg PO BEDTIME 90 days #90 tabs 02/11/24 venlafaxine 37.5 mg 37.5 mg PO BEDTIME 90 days #90 caps 02/11/24 capsule,extended release 24 hr fluticasone propionate 50 2 spray intranasal Q12H 30 days 02/27/24 mcg/actuation nasal #16 grams spray,suspension (Flonase Allergy Relief) albuterol sulfate 2.5 mg/3 mL 2.5 mg (3 mL) inhalation Q6H PRN 04/03/24 (0.083 %) solution for nebulization bronchospasm 30 days #360 mL fluocinolone acetonide oil 0.01 % 5 drp otic (ears) BID 7 days #20 mL 04/03/24 ear drops (DermOtic Oil) nebulizers ([employer] II #1 ea 04/03/24 Nebulizer) magnesium oxide 400 mg (241.3 mg 400 mg PO BEDTIME 30 days #30 tabs 04/16/24 magnesium) tablet riboflavin (vitamin B2) 400 mg 400 mg PO DAILY 30 days #30 tabs 04/16/24 tablet galcanezumab-gnlm 120 mg/mL 240 mg (2 mL) subcut ONCE 30 days 04/21/24 subcutaneous pen injector #2 mL (Emgality Pen) ondansetron 4 mg disintegrating 4 mg PO Q6H PRN nausea and 04/21/24 tablet vomiting #20 tabs rimegepant 75 mg disintegrating 75 mg PO ONCE PRN migraine 04/21/24 tablet (Nurtec ODT) headache 30 days #16 tabs montelukast 10 mg tablet 10 mg PO BEDTIME 30 days #30 tabs 04/22/24 (Singulair) varenicline 0.5 mg (11)-1 mg (42) See Rx Instructions PO PER PKG DIR 04/22/24 tablets in a dose pack (Chantix #42 ea Starting Month Box) cholecalciferol (vitamin D3) 50 50 mcg PO DAILY 90 days #90 tabs 04/24/24 mcg (2,000 unit) tablet metoclopramide HCl 10 mg tablet 10 mg PO Q6H PRN nausea and 04/30/24 (Reglan) vomiting #14 tabs fenofibrate 54 mg tablet 54 mg PO DAILY 90 days #90 tabs 05/07/24 tramadol 50 mg tablet 50 mg PO BID PRN severe pain 05/27/24 (scale score 7-10) 30 days #60 tabs benzonatate 200 mg capsule 200 mg PO TID PRN cough #20 caps 06/12/24 doxycycline hyclate 100 mg tablet 100 mg PO BID #20 tabs 06/12/24 prednisone 20 mg tablet 40 mg (2 x 20 mg) PO DAILY #10 tabs 06/12/24 methylprednisolone 4 mg tablets in See Rx Instructions PO PER PKG DIR 06/16/24 a dose pack (Medrol (Pantera)) 6 days #21 ea montelukast 10 mg tablet 10 mg PO DAILY 30 days #30 tabs 06/16/24 benzonatate 100 mg capsule 100 mg PO TID PRN cough #14 caps 06/19/24 Allergies Allergy/AdvReac Type Severity Reaction Status Date / Time amitriptyline Allergy Intermediate headache Verified 06/19/24 16:45 ibuprofen [From Motrin] Allergy Intermediate ITCHY RASH Verified 06/19/24 16:45 gabapentin AdvReac Intermediate vomiting Verified 06/19/24 16:45 Review of Systems 2 Review of Systems: Constitutional : No Weight loss, No Fever, No Chills, No Night Sweats, No Fatigue, No Malaise ENT/Mouth : No Hearing loss, No Ear Pain, complaining of nasal congestion, sinus pressure, sore throat Eyes: No Eye Pain, No Swelling, No Redness, No Foreign Body, No Discharge, No Vision Changes Cardiovascular : No Chest Pain, No SOB, No Dyspnea on Exertion, No Orthopnea, No Edema, No Palpitations Respiratory : No Cough, No Sputum, No Wheezing, No Smoke Exposure, No Dyspnea Gastrointestinal : No Nausea, No Vomiting, No Diarrhea, No Constipation, No abdominal Pain, No Hematochezia, No Melena Genitourinary : no irregular bleeding, No Dysuria, No Urinary Frequency, No Hematuria, No Urinary Incontinence, No Urgency, No Flank Pain, No Urinary Flow Changes, No Hesitancy Musculoskeletal : No joint pain, No Myalgias, No Joint Swelling Skin : No Skin Lesions, No rash Neuro : No Weakness, No Numbness, No Paresthesias, No Loss of Consciousness, No Dizziness, No Headache Psych : No Anxiety/Panic, No Depression, complaining of mild SI,, No Social Issues, Heme/Lymph: No Bruising, No Bleeding,No Lymphadenopathy Endocrine : No Polyuria, No Polydipsia, No Temperature Intolerance [facility] Past Medical History Medical History Smoking 1/2 pack a day or less Asthma-COPD overlap syndrome Acute maxillary sinusitis Otitis externa Hospital discharge follow-up Microscopic hematuria Physical exam Goiter Blurry vision Tobacco dependence Has daytime drowsiness Pulmonary nodules Moderate recurrent major depression Dyspnea Hand pain Skin lesion Leg pain, bilateral Dyslipidemia Epigastric pain Essential hypertension Cervical cancer screening GERD (gastroesophageal reflux disease) HTN (hypertension) Migraine Anxiety Depression Right lower quadrant pain Fibromyalgia Surgical History Previous section History of breast lump/mass excision History of lithotripsy H/O LEEP H/O tubal ligation Family History Family History Father Myocardial infarction Mother Lung cancer Brother Liver cancer Maternal Grandfather Stomach cancer Maternal Grandmother No problems noted. Social History Social History Housing: Apartment Alcohol intake: never Patient Tobacco Use Status: Current someday Tobacco user Tobacco use type: Cigarette Cigarettes Per Day: 3 Smoked in Last 30 Days: Yes e-Cigarette/Vaping Use: Never Used Second Hand Smoke Exposure: No Use of substances other than those prescribed or required for medical reasons: No Advance Directives: No Advance Directives Information Provided: No Do you have a plan to hurt others: No Plan service: No Current occupational status: disabled Gender identity: Female Cognitive needs: No Hearing needs: No Vision needs: No Physical Exam ED Vital Signs: Vital Signs - 24 hr 06/19/24 16:42 06/19/24 17:54 06/19/24 18:16 Temperature 97.7 F 98.4 F Pulse Rate 82 82 82 Respiratory Rate 19 19 16 Blood Pressure 149/82 H 132/80 Pulse Oximetry 98 99 Oxygen Delivery Method Room Air Room Air 06/19/24 19:57 06/19/24 20:18 Temperature 97.8 F 97.8 F Pulse Rate 97 97 Respiratory Rate 16 16 Blood Pressure 121/79 121/79 Pulse Oximetry 99 99 Oxygen Delivery Method Room Air Room Air BMI result Body Mass Index 27.8 Const Other: Appearance: Alert. Oriented X3. No acute distress. Eyes: Pupils equal, round and reactive to light. ENT: Pharynx normal. Neck: Normal inspection. Neck supple. No lymph nodes noted. No crepitus CVS: Normal heart rate and rhythm. Pulses normal. Normal S1 and S2 Respiratory: No respiratory distress. Breath sounds normal. No Wheezing. No rales Abdomen: Soft and nontender. No rigidity. No distention. Skin: Skin warm and dry. Normal skin color. Normal skin turgor. Extremities: No lower extremity edema. No Lacerations. No Rash Neuro: Oriented X 3. No motor deficit. No sensory deficit. Moving all extremities. No slurred speech. CN 2 through 12 grossly intact Psych: calm, cooperative, normal affect Course Course Course Narrative: RME: 53-year-old female presents to ED for 1 week of chest tightness with chest congestion and shortness of breath. Patient has secondary complaint is having suicidal thoughts with no plan. Launch positive for wheezing. Labs EKG chest x-ray ordered. Care team consulting placed. Patient to be reading to the ED immediately Medications Administered Discontinued Medications Generic Name Dose Route Start Last Admin Trade Name Freq PRN Reason Stop Dose Admin Albuterol Sulfate 5 mg/ 0 mg 06/19/24 17:53 06/19/24 17:56 Albuterol/Ipratropium 3 ml INHALE 06/19/24 17:54 1 each ONCE ONE Administration Medical Decision Making Medical Decision Making [facility] Narrative: My interpretation of labs: Patient's white blood cell count 14.2, likely reactive leukocytosis chemistry no abnormality, troponin negative, BNP negative, serology positive for RSV Chest x-ray does not show any acute abnormality, no infiltrate The care team evaluated the patient, patient is not SI, not HI. Patient is safe to be discharged home Lab Data [facility] Lab Attestation statement: I reviewed the patient's lab results. 06/19/24 17:41 06/19/24 17:41 Labs: Lab Results 06/19/24 Range/Units 17:41 WBC 14.2 H (4.8-10.8) X10*3/uL RBC 4.97 (4.20-5.50) X10*6/uL Hgb 13.1 (12.0-16.0) g/dl Hct 39.7 (37.0-47.0) % MCV 79.9 L (80.0-98.0) fL MCH 26.4 L (27.0-33.0) pg MCHC 33.0 (31.0-35.0) g/dl RDW 14.0 (11.0-16.0) % Plt Count 322 (160-400) X10*3/uL MPV 10.9 (9.4-12.3) fL Immature Gran % (Auto) 0.6 H (0.0-0.4) % Neut % (Auto) 74.0 H (45-73) % Lymph % (Auto) 19.6 L (20-40) % [place] % (Auto) 5.5 (2-11) % Eos % (Auto) 0.1 (0-4) % Baso % (Auto) 0.2 (0-2) % Lymph # (Auto) 2.8 (1.2-4.9) X10*3/uL [place] # (Auto) 0.8 (0.1-1.2) X10*3/uL Eos # (Auto) 0.0 (0.0-0.4) X10*3/uL Baso # (Auto) 0.0 (0.0-0.2) X10*3/uL Abs Immat Gran (auto) 0.09 H (0.00-0.03) X10*3/uL Absolute Neuts (auto) 10.5 H (2.0-8.3) x10*3/uL Absolute Nucleated RBC 0.000 (0.0-0.012) X10*3/uL Nucleated RBC % (auto) 0.0 (0.0-0.2) /100WBC Sodium 140 (135-145) mmol/L Potassium 3.3 (3.3-5.1) mmol/L Chloride 101 (96-108) mmol/L Carbon Dioxide 28 (22-29) mmol/L Anion Gap 14 (12-20) BUN 25 H (9-16) mg/dL Creatinine 1.06 (0.5-1.4) mg/dL Estim Creat Clear Calc 52.4 Estimated GFR 54 Random Glucose 117 H (60-115) mg/dL Calcium 9.8 (8.4-10.2) mg/dL Total Bilirubin 0.3 (0.0-1.0) mg/dL AST 17 (5-31) U/L ALT 28 (0-31) U/L Alkaline Phosphatase 114 (39-117) U/L Troponin I High Sens < 2.7 (<3.5-17.0) ng/L B-Natriuretic Peptide < 10 (<100) pg/mL Total Protein 7.7 (6.5-8.0) g/dL Albumin 4.4 (3.5-5.0) g/dL Influenza Type A (PCR) NEGATIVE (Negative) Influenza Type B (PCR) NEGATIVE (Negative) RSV RNA Qual (PCR) POSITIVE A (Negative) SARS-CoV-2 RNA (RT-PCR) NEGATIVE (Negative) Independent Interpretation I performed an independent interpretation of an: Plain X-Ray Radiology Impression Discussion of test interpretation with radiology: I have reviewed the radiologist's reading. Radiologist Impression: No consolidation, pleural effusion or pneumothorax. Again seen are several small scattered pulmonary granulomas. Heart size is normal. No acute fracture. IMPRESSION: 1. No acute findings. Discharge Plan Discharge Clinical Impression: Acute viral bronchitis, Depression Patient Disposition: Home, Self-Care Instructions: Respiratory Syncytial Virus (ED), Depression (ED), Acute Bronchitis (ED) Additional Instructions: Please follow-up with your primary care physician tomorrow. If you have any worsening or new symptoms, please return to the emergency room or call 911 Prescriptions: New benzonatate 100 mg capsule 100 mg PO TID PRN (Reason: cough) Qty: 14 0RF No Action (DME) blood pressure monitor [Blood Pressure Kit] Kit See Rx Instructions .ROUTE .MEDSUPPLY Qty: 1 0RF Rx Instructions: As directed (DME) cane Device See Rx Instructions .Route Qty: 1 0RF Rx Instructions: As directed (DME) walker Misc See Rx Instructions .Route Qty: 1 0RF Rx Instructions: To be use lifetime (DME) underpads [Bed Underpads] Pad See Rx Instructions .Route Qty: 100 0RF Rx Instructions: As directed Combivent Respimat 20-100 mcg/actuation mist 1 puff PO QID 30 Days Qty: 25 1RF Patient Comments: Pulmo given loratadine 10 mg tablet 10 mg PO DAILY PRN (Reason: for allergies) 30 Days Qty: 30 1RF naloxone 10 mg/0.4 mL auto-injector 2 mg subcut Q3M 30 Days Qty: 4 0RF Rx Instructions: until desired response clonazepam 0.5 mg tablet 0.5 mg PO BEDTIME PRN (Reason: anxiety) 30 Days Qty: 60 1RF atorvastatin 20 mg tablet 20 mg PO BEDTIME 90 Days Qty: 90 1RF venlafaxine 37.5 mg capsule,extended release 24hr 37.5 mg PO BEDTIME 90 Days Qty: 90 1RF magnesium oxide 400 mg (241.3 mg magnesium) tablet 400 mg PO BEDTIME 30 Days Qty: 30 6RF Rx Instructions: may hold for loose stools riboflavin (vitamin B2) 400 mg tablet 400 mg PO DAILY 30 Days Qty: 30 6RF cholecalciferol (vitamin D3) 50 mcg (2,000 unit) tablet 50 mcg PO DAILY 90 Days Qty: 90 1RF tramadol 50 mg tablet 50 mg PO BID PRN (Reason: severe pain (scale score 7-10)) 30 Days Qty: 60 0RF acetaminophen 500 mg tablet 1,000 mg PO TID PRN (Reason: pain) Qty: 20 0RF lidocaine [Lidoderm] 5 % adhesive patch,medicated 1 patch topical DAILY Qty: 30 0RF Rx Instructions: leave on most painful area for up to 12 hrs cyclobenzaprine 10 mg tablet 10 mg PO TID PRN (Reason: muscle spasm) Qty: 15 0RF albuterol sulfate 90 mcg/actuation HFA aerosol inhaler 2 puff inhalation Q4-6H PRN (Reason: shortness of breath or wheezing) Qty: 6.7 0RF albuterol sulfate 2.5 mg/0.5 mL solution for nebulization 5 mg inhalation Q4H PRN (Reason: shortness of breath or wheezing) Qty: 30 0RF meclizine 12.5 mg tablet 12.5 mg PO TID PRN (Reason: dizziness) Qty: 14 0RF metoclopramide HCl [Reglan] 10 mg tablet 10 mg PO Q6H PRN (Reason: nausea and vomiting) Qty: 14 0RF benzonatate 200 mg capsule 200 mg PO TID PRN (Reason: cough) Qty: 20 0RF prednisone 20 mg tablet 40 mg PO DAILY Qty: 10 0RF doxycycline hyclate 100 mg tablet 100 mg PO BID Qty: 20 0RF clobetasol 0.05 % cream 1 appl topical BID 14 Days Qty: 30 0RF fluticasone propionate [Flonase Allergy Relief] 50 mcg/actuation spray,suspension 2 spray intranasal Q12H 30 Days Qty: 16 0RF Rx Instructions: administer into each nostril Nurtec ODT 75 mg tablet,disintegrating 75 mg PO ONCE MDD 1 tab PRN (Reason: migraine headache) 30 Days Qty: 16 3RF Emgality Pen 120 mg/mL pen injector 240 mg subcut ONCE 30 Days Qty: 2 0RF Rx Instructions: Loading dose: 120 mg subcu injection x2 in alternate sites (total 240 mg). To be followed by maintenance dose of 120 mg subcu q.month. ondansetron 4 mg tablet,disintegrating 4 mg PO Q6H PRN (Reason: nausea and vomiting) Qty: 20 6RF montelukast 10 mg tablet 10 mg PO DAILY 30 Days Qty: 30 11RF methylprednisolone [Medrol (Pantera)] 4 mg tablets,dose pack See Rx Instructions PO PER PKG DIR 6 Days Qty: 21 0RF Rx Instructions: PO PER PKG DIR montelukast [Singulair] 10 mg tablet 10 mg PO BEDTIME 30 Days Qty: 30 11RF varenicline [Chantix Starting Month Box] 0.5 mg (11)- 1 mg (42) tablets,dose pack See Rx Instructions PO PER PKG DIR Qty: 42 0RF Rx Instructions: PO PER PKG DIR fluocinolone acetonide oil [DermOtic Oil] 0.01 % drops 5 drp otic (ears) BID 7 Days Qty: 20 0RF (DME) nebulizers [AeroEclipse II Nebulizer] [facility] See Rx Instructions .Route Qty: 1 0RF Rx Instructions: As directed albuterol sulfate 2.5 mg /3 mL (0.083 %) solution for nebulization 2.5 mg inhalation Q6H PRN (Reason: bronchospasm) 30 Days Qty: 360 0RF fenofibrate 54 mg tablet 54 mg PO DAILY 90 Days Qty: 90 1RF Interventions: [place]-Suicide Risk Severity Scale Last Done: 06/19/24 20:17 ED Discharge Assessment Last Done: 06/19/24 20:18 Discharge Date/Time: 06/19/24 20:43 Print Language: Korean
--- NOTE | 2024-06-19 17:31 | PC.NURSE ---
Patient changed over into hospital chet dent secured in specimen cup. Security to bedside to search personal items/secure. 1:1 sitter felicitas at bedside will draw patient.
[2024-06-19 17:50] LABS: MANUAL DIFF FLAG NO
[2024-06-19 17:54] VITALS: PULSE 82; RESP 19; O2SAT 97
[2024-06-19] MEDS: Albuterol Sulfate 5 MG, Albuterol/Iprat 2.5/0.5MG 3 ML 3 ML INHALE (17:56)
[2024-06-19 18:06] LABS: Basophils Percent Auto 0.2 % (0-2); Eosinophils Percent Auto 0.1 % (0-4); Hematocrit 39.7 % (37.0-47.0); Hemoglobin 13.1 g/dl (12.0-16.0); Imm Gran Abs Auto 0.09 X10*3/uL (0.00-0.03); Imm Gran Pct Auto 0.6 % (0.0-0.4); Lymphocytes Absolute Auto 2.8 X10*3/uL (1.2-4.9); Lymphocytes Percent Auto 19.6 % (20-40); Mean Corpuscular Hemoglobin 26.4 pg (27.0-33.0); Mean Corpuscular Volume 79.9 fL (80.0-98.0); Mean Platelet Volume 10.9 fL (9.4-12.3); Monocytes Absolute Auto 0.8 X10*3/uL (0.1-1.2); Monocytes Percent Auto 5.5 % (2-11); Neutrophils Absolute Auto 10.5 x10*3/uL (2.0-8.3); Platelet Count 322 X10*3/uL (160-400); Red Blood Count 4.97 X10*6/uL (4.20-5.50); White Blood Count 14.2 X10*3/uL (4.8-10.8)
[2024-06-19 18:13] LABS: Alanine Aminotransferase 28 U/L (0-31); Albumin Level 4.4 g/dL (3.5-5.0); Alkaline Phosphatase 114 U/L (39-117); Anion Gap 14 (12-20); Aspartate Amino Transferase 17 U/L (5-31); Bilirubin Total 0.3 mg/dL (0.0-1.0); Blood Urea Nitrogen 25 mg/dL (9-16); Calcium 9.8 mg/dL (8.4-10.2); Carbon Dioxide 28 mmol/L (22-29); Chloride 101 mmol/L (96-108); Creatinine Clr Calc Pharmacy 52.4; Estimated Glomerular Filt Rate 54; Glucose Random 117 mg/dL (60-115); Potassium 3.3 mmol/L (3.3-5.1); Sodium 140 mmol/L (135-145); Total Protein 7.7 g/dL (6.5-8.0)
[2024-06-19 18:16] VITALS: BP 132/80; PULSE 82; RESP 16; TEMP 36.9; O2SAT 99
[2024-06-19 18:16] LABS: B Type Natriuretic Peptide < 10 pg/mL (<100)
[2024-06-19 18:22] LABS: Troponin-I High Sensitivity < 2.7 ng/L (<3.5-17.0)
[2024-06-19 18:34] LABS: Influenza A PCR NEGATIVE (Negative); Influenza B PCR NEGATIVE (Negative); Resp Syncy Virus RNA Qual PCR POSITIVE (Negative); SARS COV2 PCR INHOUSE NEGATIVE (Negative)
[2024-06-19 19:57] VITALS: BP 121/79; PULSE 97; RESP 16; TEMP 36.6; O2SAT 99
[2024-06-19 20:18] VITALS: BP 121/79; PULSE 97; RESP 16; TEMP 36.6; O2SAT 99
== END 2024-06-19 20:43 | disposition home or self-care (01) ==
PROVIDERS: Physician Assistant; Emergency Provider Emergency Medicine; PCP Internal Medicine
DX: J20.8 Acute bronchitis due to other specified organisms (principal); F33.1 Major depressive disorder, recurrent, moderate; R07.89 Other chest pain; R06.02 Shortness of breath; J45.909 Unspecified asthma, uncomplicated; R05.9 Cough, unspecified; R45.851 Suicidal ideations; F17.210 Nicotine dependence, cigarettes, uncomplicated; Z03.818 Encounter for observation for suspected exposure to other biological agents ruled out; Z79.899 Other long term (current) drug therapy
CPT/HCPCS: 0241U; 71045; 80053; 83880; 84484; 85025; 93005; 94640; 99284; 99285; S9485

== ENCOUNTER → 2024-06-19 16:29 | Outpatient (BNV) | payer OTHER, SELFPAY | PROVIDERS: Emergency Provider Emergency Medicine; PCP Internal Medicine; Visit Provider Internal Medicine Cardiovascular Disease | DX: R94.31 Abnormal electrocardiogram [ECG] [EKG] (principal) | CPT/HCPCS: 93010 ==

== ENCOUNTER → 2024-06-19 16:49 | Outpatient (BNV) | payer OTHER, SELFPAY | PROVIDERS: PCP Internal Medicine; Visit Provider Radiology Diagnostic Radiology | DX: R06.02 Shortness of breath (principal) | CPT/HCPCS: 71045 ==

== ENCOUNTER 2024-06-26 12:50 | Outpatient (AMB) | payer OTHER, SELFPAY ==
--- NOTE | 2024-06-26 13:29 | MHC.OFFVIS ---
Vital Signs 06/26/24 13:30 Height 5 ft 1 in Weight 144 lb BMI 27.2 BP 130/90 H Blood Pressure Location Lt brachial Position Sitting Pulse 85 Pulse Source Pulse Oximeter Pulse Oximetry (%) 96 Oxygen Delivery Method Room Air Intake Visit Reasons: Follow up Vocational Instructor Required: Yes Vocational Instructor Services: Vocational Instructor Offered & Declined (Miya Abarca) Accompanied by: Self / Same As Patient Allergies amitriptyline Allergy (Intermediate, Verified 06/26/24 13:33) headache ibuprofen [From Motrin] Allergy (Intermediate, Verified 06/26/24 13:33) ITCHY RASH gabapentin Adverse Reaction (Intermediate, Verified 06/26/24 13:33) vomiting Medication List - Last Reconciled 06/26/24 by MESSI Montilla acetaminophen 1,000 mg (2 x 500 mg) PO TID PRN albuterol sulfate 90 mcg/actuation 2 puffs inhalation Q4-6H PRN albuterol sulfate 5 mg inhalation Q4H PRN albuterol sulfate 2.5 mg (3 mL) inhalation Q6H PRN 30 days atorvastatin 20 mg PO BEDTIME 90 days benzonatate 200 mg PO TID PRN benzonatate 100 mg PO TID PRN blood pressure monitor (Blood Pressure Kit) As directed cane As directed cholecalciferol (vitamin D3) 50 mcg PO DAILY 90 days clobetasol 0.05% 1 appl topical BID 2 weeks clonazepam 0.5 mg PO BEDTIME PRN 30 days cyclobenzaprine 10 mg PO TID PRN doxycycline hyclate 100 mg PO BID fenofibrate 54 mg PO DAILY 90 days fluocinolone acetonide oil 0.01% (DermOtic Oil) 5 drps otic (ears) BID 7 days fluticasone propionate 50 mcg/actuation (Flonase Allergy Relief) 2 sprays intranasal Q12H 30 days galcanezumab-gnlm (Emgality Pen) 240 mg (2 mL) subcut ONCE 30 days ipratropium-albuterol 20-100 mcg/actuation (Combivent Respimat) 1 puff PO QID 30 days lidocaine 5% (Lidoderm) 1 patch topical DAILY loratadine 10 mg PO DAILY PRN 30 days magnesium oxide 400 mg PO BEDTIME 30 days meclizine 12.5 mg PO TID PRN methylprednisolone (Medrol (Pantera)) PO PER PKG DIR 6 days metoclopramide HCl (Reglan) 10 mg PO Q6H PRN montelukast 10 mg PO DAILY 30 days montelukast (Singulair) 10 mg PO BEDTIME 30 days naloxone 2 mg (0.08 mL) subcut Q3M 30 days nebulizers (AeroEclipse II Nebulizer) As directed ondansetron 4 mg PO Q6H PRN prednisone 40 mg (2 x 20 mg) PO DAILY riboflavin (vitamin B2) 400 mg PO DAILY 30 days rimegepant (Nurtec ODT) 75 mg PO ONCE PRN 30 days MDD 1 tab tramadol 50 mg PO BID PRN 30 days underpads (Bed Underpads) As directed varenicline (Chantix Starting Month Box) PO PER PKG DIR venlafaxine ER 37.5 mg PO BEDTIME 90 days walker To be use lifetime HPI Comments Details: 52-yr-old female presents for f/u of headache disorder. She states she has an appointment at her PCP office this afternoon, for chest pain, as well as occipital headache, not sleeping. Pt reports her HCTZ was stopped in Apr d/t hypokalemia. She asked if she should still be taking the potassium supplement. States she plans to have her labs rechecked tomorrow. Last BMP on 06/19/2024 showed potassium 3.3 NL. Pt reports she has had recent [facility] ER eval/s for RSV and bronchitis and asthma exacerbation , and thus she has not been sleeping as well. Was treated with doxycycline, prednisone burst, benzonatate. She asked if she should take Singulair. She has been having increasing throbbing occipital region headache since being sick. When the headache is worse, she feels more dizzy and off-balance. She continues to have neck pain and tightness. Her recent C-spine XR with flexion-extension was normal. She has not started Emgality or p.r.n. Nurtec. She states [facility] has not given them to her. She has insurance authorization for Emgality through July 2024, and Nurtec through October 2024. Patient continues to have migraine as well. Baseline migraine characteristics: Initially right-sided, but over time became left sided or holocranial and face pain. Headaches are a/w blurry vision, Ear pain, skull bone pain, allodynia, running numbness/tinging over frontal/top of head, Nausea, Light Sensitivity, Sound Sensitivity, Dizziness, Difficulty Concentrating and Swollen Eye, activity intolerance. [facility] Medical History Smoking 1/2 pack a day or less Asthma-COPD overlap syndrome Acute maxillary sinusitis Otitis externa Hospital discharge follow-up Microscopic hematuria Physical exam Goiter Blurry vision Tobacco dependence Has daytime drowsiness Pulmonary nodules Moderate recurrent major depression Dyspnea Hand pain Skin lesion Leg pain, bilateral Dyslipidemia Epigastric pain Essential hypertension Cervical cancer screening GERD (gastroesophageal reflux disease) HTN (hypertension) Migraine Anxiety Depression Right lower quadrant pain Fibromyalgia Surgical History Previous section History of breast lump/mass excision History of lithotripsy H/O LEEP H/O tubal ligation Family History Father Myocardial infarction Mother Lung cancer Brother Liver cancer Maternal Grandfather Stomach cancer Maternal Grandmother No problems noted. Social History Housing: Apartment Alcohol intake: never Patient Tobacco Use Status: Current someday Tobacco user Tobacco use type: Cigarette Cigarettes Per Day: 3 e-Cigarette/Vaping Use: Never Used Second Hand Smoke Exposure: No service: No Current occupational status: disabled Gender identity: Female Cognitive needs: No Hearing needs: No Vision needs: No Female Reproductive History Menstrual Age of Menarche: 9 Physical Exam Vital Signs: Last Vital Signs Pulse 85 06/26/24 13:30 BP 130/90 H 06/26/24 13:30 Pulse Ox 96 06/26/24 13:30 Oxygen Delivery Method Room Air 06/26/24 13:30 BMI result Body Mass Index 27.2 Const General: cooperative and no acute distress Orientation/consciousness: patient oriented x3 Resp Effort & Inspection: normal respiratory effort and able to speak in complete sentences Neuro General: patient oriented x3 and moves all extremities Cognition (Neuro): normal cognition Psych Appearance: grossly normal Mental Status: mental status grossly normal Speech and movement: Normal speech and movement present Affect: normal affect Attitude: cooperative Quality Reporting (2019) Adult ([facility] 138/2//69) Smoking risk assessment performed?: Yes Patient Tobacco Use Status: Current someday Tobacco user Assessment & Plan Assessment & Plan (1) Chronic migraine without aura: Code(s): G43.709 - Chronic migraine without aura, not intractable, without status migrainosus Category: Medical Qualifiers: Status migrainosus presence: without status migrainosus Intractability: not intractable Qualified Code(s): G43.709 - Chronic migraine without aura, not intractable, without status migrainosus (2) Cervicalgia: Code(s): M54.2 - Cervicalgia Category: Medical (3) Cranial pain: Code(s): R51.9 - Headache, unspecified Category: Medical (4) Hypokalemia: Code(s): E87.6 - Hypokalemia Category: Medical Plan Advised that she should take Singulair for management of her asthma per pulmonology, Dr. Marinelli. Post ER PCP follow-up as scheduled. Advise patient to discuss her hypertension management and need for potassium replacement with PCP. For overall headache management: Try to optimize good self-care, including but not limited to maintaining a healthy diet, adequate fluid intake, adequate sleep, and engaging in regular physical activity. Track headaches. Future considerations: HST For acute headache treatment: Again trial Rimegepant ODT (Nurtec ODT) 75mg, 1 tab at onset of headache.. Max of 1 tabs (75mg) per 24 hours. May adjunct with OTC Tylenol 650-1000mg q 4-6 hours prn. Do not take w/ Butalbital (Fioricet or Fiorinal). Potential adverse effects, include but are not limited to fatigue, nausea, dry mouth, constipation. May trial Benadryl 25-50 mg q.d. for sleep, may help headache as well. Previous acute migraine medication trials: Sumatriptan not tolerated- nausea. Naratriptan- ineffective and caused nausea. Fioricet can help- but will interact w/ oral gepant. Acute migraine medication contraindications: NSAIDs d/t ibuprofen allergy. ? For headache prevention medication: Continue Riboflavin 400mg qam Continue Magnesium 400mg qhs Again start Emgality 240mg sc x's 1 then 120mg sc q month. Pt will need RN injection training. Reviewed potential adverse effects of Emgality, including but not limited to injection site reactions. Previous migraine prevention medication trials: Amitriptyline- not tolerated, Gabapentin- not tolerated, Cymbalta ineffective > 2 months. Migraine prevention medication contraindications: Beta=blockers s d/t asthma dx ? For skull pain and scalp paresthesias: Reviewed XR c-spine w/ flex/ext- normal. Reviewed again that most recent head CT was unremarkable for osseous process. Likely treating migraine will tx or minimize these s/s. If these s/s persist, will refer to pain management for NB. ? Will follow-up upon review of above and patient to follow-up in clinic in 3-6 months or sooner prn. Medications: New diphenhydramine HCl (Benadryl Allergy) may repeat once in 30-60 minutes if not effective 25 mg PO BEDTIME 15 days PRN 30 tabs 0RF sleep Refilled rimegepant (Nurtec ODT) 75 mg PO ONCE 30 days PRN 16 tabs 6RF migraine headache MDD 1 tab galcanezumab-gnlm (Emgality Pen) Loading dose: 120 mg subcu injection x2 in alternate sites (total 240 mg). To be followed by maintenance dose of 120 mg subcu q.month. 240 mg (2 mL) subcut ONCE 30 days 2 mL 0RF Coding Level of Care Code Est Pt Level 4 (41152) Diagnoses Chronic migraine without aura without status migrainosus, not intractable G43.709 Status migrainosus presence: without status migrainosus Intractability: not intractable Cervicalgia M54.2 Cranial pain R51.9 Hypokalemia E87.6
[2024-06-26 13:30] VITALS: BP 130/90; PULSE 85; O2SAT 96; BMI 27.2
== END 2024-06-26 14:22 | disposition home or self-care (01) ==
PROVIDERS: PCP Internal Medicine; Visit Provider Nurse Practitioner Family
DX: G43.709 Chronic migraine without aura, not intractable, without status migrainosus (principal); M54.2 Cervicalgia; R51.9 Headache, unspecified; E87.6 Hypokalemia
CPT/HCPCS: 99214

== ENCOUNTER → 2024-06-26 12:50 | Outpatient (BNVA) | payer OTHER, SELFPAY | PROVIDERS: PCP Internal Medicine; Visit Provider Nurse Practitioner Family | DX: G43.709 Chronic migraine without aura, not intractable, without status migrainosus (principal); M54.2 Cervicalgia; E87.6 Hypokalemia; J44.89 Other specified chronic obstructive pulmonary disease; J40 Bronchitis, not specified as acute or chronic; F11.10 Opioid abuse, uncomplicated; G43.909 Migraine, unspecified, not intractable, without status migrainosus; E66.3 Overweight; F41.1 Generalized anxiety disorder; F32.1 Major depressive disorder, single episode, moderate; I10 Essential (primary) hypertension; G47.00 Insomnia, unspecified; Z79.899 Other long term (current) drug therapy | CPT/HCPCS: 99212 ==

== ENCOUNTER 2024-06-26 15:16 | Outpatient (AMB) | payer OTHER, SELFPAY ==
--- NOTE | 2024-06-26 15:30 | A.OFFPC_ITS ---
Vital Signs 06/26/24 15:31 Height 5 ft 1 in Weight 146 lb BMI 27.6 BP 130/80 Blood Pressure Location Lt brachial Position Sitting Pulse 102 H Pulse Source Pulse Oximeter Pulse Oximetry (%) 96 Oxygen Delivery Method Room Air Intake Visit Reasons: [facility] [place] 06/11 Chest pain Intake Note: Patient is here to follow-up after a visit the emergency department at [facility] on 06/11/24. Quarter Seamer Required: No Metallographer: Not Required per policy Accompanied by: Self / Same As Patient Allergies amitriptyline Allergy (Intermediate, Verified 06/26/24 16:05) headache ibuprofen [From Motrin] Allergy (Intermediate, Verified 06/26/24 16:05) ITCHY RASH gabapentin Adverse Reaction (Intermediate, Verified 06/26/24 16:05) vomiting Medication List - Last Reconciled 06/26/24 by Stephanie Stevenson PA-C acetaminophen 1,000 mg (2 x 500 mg) PO TID PRN albuterol sulfate 90 mcg/actuation 2 puffs inhalation Q4-6H PRN albuterol sulfate 5 mg inhalation Q4H PRN albuterol sulfate 2.5 mg (3 mL) inhalation Q6H PRN 30 days amoxicillin-pot clavulanate 875-125 mg 1 tab PO BID 10 days atorvastatin 20 mg PO BEDTIME 90 days azithromycin For 250 mg dose pack: take 500 mg today (day 1), then 250 mg for 4 days (days 2-5) PO benzonatate 200 mg PO TID PRN benzonatate 100 mg PO TID PRN blood pressure monitor (Blood Pressure Kit) As directed cane As directed cholecalciferol (vitamin D3) 50 mcg PO DAILY 90 days clobetasol 0.05% 1 appl topical BID 2 weeks clonazepam 0.5 mg PO BEDTIME PRN 30 days cyclobenzaprine 10 mg PO TID PRN diphenhydramine HCl (Benadryl Allergy) 25 mg PO BEDTIME PRN 15 days fenofibrate 54 mg PO DAILY 90 days fluocinolone acetonide oil 0.01% (DermOtic Oil) 5 drps otic (ears) BID 7 days fluticasone propionate 50 mcg/actuation (Flonase Allergy Relief) 2 sprays intra nasal Q12H 30 days galcanezumab-gnlm (Emgality Pen) 240 mg (2 mL) subcut ONCE 30 days ipratropium-albuterol 20-100 mcg/actuation (Combivent Respimat) 1 puff PO QID 30 days lidocaine 5% (Lidoderm) 1 patch topical DAILY loratadine 10 mg PO DAILY PRN 30 days magnesium oxide 400 mg PO BEDTIME 30 days meclizine 12.5 mg PO TID PRN melatonin 10 mg PO BEDTIME PRN methylprednisolone (Medrol (Pantera)) PO PER PKG DIR 6 days metoclopramide HCl (Reglan) 10 mg PO Q6H PRN montelukast 10 mg PO DAILY 30 days montelukast (Singulair) 10 mg PO BEDTIME 30 days naloxone 2 mg (0.08 mL) subcut Q3M 30 days nebulizers (AeroEclipse II Nebulizer) As directed ondansetron 4 mg PO Q6H PRN prednisone 40 mg (2 x 20 mg) PO DAILY 5 days riboflavin (vitamin B2) 400 mg PO DAILY 30 days rimegepant (Nurtec ODT) 75 mg PO ONCE PRN 30 days MDD 1 tab tramadol 50 mg PO BID PRN 30 days underpads (Bed Underpads) As directed varenicline (Chantix Starting Month Box) PO PER PKG DIR venlafaxine ER 37.5 mg PO BEDTIME 90 days walker To be use lifetime Tobacco use date assessed: 06/26/24 Dental Screening Dental Screen Date: 06/26/24 Did you have a dental visit in the last 12 months?: Yes Did you have a dental problem in the last 6 months where you did not have access to dental care?: No Was dental information given to patient?: Patient has dentist [facility] Medical History Smoking 1/2 pack a day or less Asthma-COPD overlap syndrome Acute maxillary sinusitis Otitis externa Hospital discharge follow-up Microscopic hematuria Physical exam Goiter Blurry vision Tobacco dependence Has daytime drowsiness Pulmonary nodules Moderate recurrent major depression Dyspnea Hand pain Skin lesion Leg pain, bilateral Dyslipidemia Epigastric pain Essential hypertension Cervical cancer screening GERD (gastroesophageal reflux disease) HTN (hypertension) Migraine Anxiety Depression Right lower quadrant pain Fibromyalgia Surgical History Previous section History of breast lump/mass excision History of lithotripsy H/O LEEP H/O tubal ligation Family History Father Myocardial infarction Mother Lung cancer Brother Liver cancer Maternal Grandfather Stomach cancer Maternal Grandmother No problems noted. Social History Housing: Apartment Alcohol intake: never Patient Tobacco Use Status: Current someday Tobacco user Tobacco use type: Cigarette Cigarette Packs Per Day: 0.25 Cigarettes Per Day: 3 e-Cigarette/Vaping Use: Never Used Second Hand Smoke Exposure: Yes service: No Current occupational status: disabled Gender identity: Female Cognitive needs: No Hearing needs: No Vision needs: No Female Reproductive History Menstrual Age of Menarche: 9 Questionnaire PHQ-9 Over the last 2 weeks, how often have you been bothered by any of the following problems? 1. Little interest or pleasure in doing things: not at all 2. Feeling down, depressed, or hopeless: not at all 3. Trouble falling or staying asleep, or sleeping too much: not at all 4. Feeling tired or having little energy: not at all 5. Poor appetite or overeating: not at all 6. Feeling bad about yourself - or that you are a failure or have let yourself or your family down: not at all 7. Trouble concentrating on things, such as reading the newspaper or watching television: not at all 8. Moving or speaking so slowly that other people could have noticed. Or the opposite - being so fidgety or restless that you have been moving around a lot more than usual: not at all 9. Thoughts that you would be better off or of hurting yourself in some way: not at all Total score: 0 Depression Screening Interpretation: Negative Depression Screening Done: Yes Source: Developed by Drs. Sylvester Merlos, Eve Mcclelland, Joby King and colleagues, with an educational pili from [employer]. Thrive Questionnaire Date Thrive assessed: 06/26/24 I am a: Patient What is your living situation today?: I have a steady place to live Within the past 12 months, did the food you bought not last and you didn't have the money to get more?: Never true Within the past 12 months, did you worry whether your food would run out before you got money to buy more?: Never true Do you have trouble paying for medicines?: No Do you have trouble getting transportation to medical appointments?: No Do you have trouble paying your heating and electricity bill?: No Do you have trouble taking care of your child, family member or friend?: No Do you have trouble with day-to-day activities such as bathing, preparing meals, shopping, managing finances, etc.?: No Are you currently unemployed and looking for a job?: No Are you interested in more education?: No Please select the resources that you would like help with: None Currently or been in a relationship where the following occur: No concerns reported THRIVE Score: 0 AUDIT C Alcohol Use Questionnaire (AUDIT-C) 1. How often do you have a drink containing alcohol?: Monthly or less 2. How many drinks containing alcohol do you have on a typical day when you are drinking?: 1 or 2 Total Score: 1 JOHN-7 AMB Questionnaire JOHN-7 Date JOHN - 7 assessed: 06/26/24 Feeling nervous, anxious, or on edge: 0 = Not at all Not being able to stop or control worryin = Not at all Worrying too much about different things: 0 = Not at all Trouble relaxin = Not at all Being so restless that it is hard to sit still: 0 = Not at all Becoming easily annoyed or irritable: 0 = Not at all Feeling afraid as if something awful might happen: 0 = Not at all Total JOHN-7 score (0-4 normal; 5-9 mild; 10-14 moderate; 15-21 severe): 0 Source: Developed by Drs. Sylvester Merlos, Eve Mcclelland, Joby King and colleagues, with an educational pili from [employer]. Physical exam (Primary Care) Vital Signs: Last Vital Signs Pulse 102 H 06/26/24 15:31 BP 130/80 06/26/24 15:31 Pulse Ox 96 06/26/24 15:31 Oxygen Delivery Method Room Air 06/26/24 15:31 Care Plan Goal for BP management: BP today at 130/80 at goal no interventions BMI result Body Mass Index 27.6 BMI Assessment/Plan discussion: High BMI High, discussed plan: lifestyle, weight reduction, dietary and physical activity Tobacco/Smoking Status: Tobacco use Status Tobacco use date assessed 06/26/24 06/26/24 15:38 Patient Tobacco Use Status Current someday Tobacco 06/26/24 15:38 Tobacco use type Cigarette 06/26/24 15:38 e-Cigarette/Vaping Use Never Used 06/26/24 15:38 PHQ-9: PHQ-9 Score PHQ-9: Total score 0 06/26/24 16:07 Depression Screening Interpretation: Negative Thrive Assessment: Date of Thrive Assessment Date Thrive assessed 06/26/24 06/26/24 15:38 Currently or been in a relationship where the following occur: No concerns reported Coding Level of Care Code Est Pt Level 4 (40009) Complex EM visit Add On G2211 Diagnoses Asthma-COPD overlap syndrome J44.89 Bronchitis J40 Mild tramadol use disorder F11.10 Migraine G43.909 Migraine type: ophthalmoplegic Overweight (BMI 25.0-29.9) E66.3 Generalized anxiety disorder F41.1 Moderate major depression F32.1 Essential hypertension I10 Insomnia G47.00 Assessment & Plan Assessment & Plan (1) Asthma-COPD overlap syndrome: Code(s): J44.89 - Other specified chronic obstructive pulmonary disease Category: Medical Plan: This condition is chronic. Patient does have mild wheezing on exam reports chest tightness and intermittent cough. Patient will be started on short course of steroids prednisone x5 days, Augmentin and Z-Pantera. Instructed to take her neb ulizer as needed. I offered chest x-ray although patient has had multiple x- rays in the past 2-3 weeks in the emergency department which were negative for any acute processes Will continue to monitor. (2) Bronchitis: Code(s): J40 - Bronchitis, not specified as acute or chronic Category: Medical Plan: Patient will be treated with Augmentin, Z-Pantera and a course of steroids. Condition is stable. Will continue to monitor. Patient had recent negative chest x-ray (3) Mild tramadol use disorder: Comment: Pain management contract signed 01/03/2024 and urine toxicology done. Code(s): F11.10 - Opioid abuse, uncomplicated Category: Medical Plan: Patient has chronic pain currently on tramadol taking as prescribed. Condition is chronic will continue to monitor. (4) Migraine: Code(s): G43.909 - Migraine, unspecified, not intractable, without status migrainosus Category: Medical Qualifiers: Migraine type: ophthalmoplegic Plan: This condition is chronic. Patient is being followed by Neurology and is on multiple oral medications and is pins start injectables. Will continue to monitor. (5) Overweight (BMI 25.0-29.9): Code(s): E66.3 - Overweight Category: Medical Plan: Patient has been losing weight her BMI has decreased. Instructed patient to continue her diet and exercise regimen. Will continue to monitor this is stable. (6) Generalized anxiety disorder: Comment: has counselling Code(s): F41.1 - Generalized anxiety disorder Category: Medical Plan: Patient currently on clonazepam 0.5 mg at bedtime p.r.n. taking as prescribed. This condition is chronic and stable will continue to monitor. (7) Moderate major depression: Code(s): F32.1 - Major depressive disorder, single episode, moderate Category: Medical Plan: Patient currently on clonazepam 0.5 mg at bedtime p.r.n. taking as prescribed. This condition is chronic and stable will continue to monitor. (8) Essential hypertension: Code(s): I10 - Essential (primary) hypertension Category: Medical Plan: Patient's blood pressure is stable at this time at 130/80. Patient is not on any antihypertensive. Will continue to monitor and not start patient on any antihypertensive at this time. (9) Insomnia: Code(s): G47.00 - Insomnia, unspecified Category: Medical Plan: Patient reporting insomnia is currently on clonazepam 0.5 mg. Will add melatonin to her regimen and patient instructed to take Benadryl if needed. We discussed increasing her clonazepam although that can cause memory loss or dementia therefore deferred at this time increasing that dose. Patient understands. Condition is chronic and stable. Will continue to monitor Plan Plan - Continue management for asthma with currently prescribed medication, as previous prednisone seemed effective. - Neurology follow-up for chronic migraine management with intent to start injectable treatment. - Monitor for any cardiac symptoms considering family history, despite normal echocardiography. - Patient instructed to go to the ER whenever she has chest pain. - Consider exploring other therapeutic options for anxiety to possibly alleviate migraine exacerbations. Such as therapy referral. - Instructions to follow up with neurology for further guidance on migraines and injectables. Medications: New prednisone 40 mg (2 x 20 mg) PO DAILY 10 tabs 0RF 5 days azithromycin For 250 mg dose pack: take 500 mg today (day 1), then 250 mg for 4 days (days 2-5) PO 6 tabs 0RF amoxicillin-pot clavulanate 875-125 mg 1 tab PO BID 20 tabs 0RF 10 days melatonin 10 mg PO BEDTIME PRN 90 caps 1RF sleep Patient Instructions: Patient Instructions - Follow up with your neurologist regarding injectable treatments for migraines. - Complete all prescribed medications for your respiratory condition. - Monitor your respiratory symptoms closely and visit the emergency department if chest pain persists or worsens. - Engage in relaxation techniques to help manage anxiety. - Revisit your potassium supplement use based on blood tests results. - Maintain regular medical appointments for ongoing assessment. Scribe Plan - Not visible on output: History of Present Illness The patient is a 53-year-old female presenting with chronic migraines and respiratory issues. She reports persistent migraines poorly controlled by prev ious treatments including amitriptyline, gabapentin, Cymbalta, and beta blockers. She indicated that no medication has been effective in alleviating her migraine symptoms. Recently, she has consulted with a neurologist who recommended starting injectable treatments. Additionally, the patient has been experiencing respiratory issues, reportedly contracted after her grandson was diagnosed with RSV over the period, leading to bronchitis, ongoing asthma symptoms, and intermittent chest and back pain. Previous interventions for asthma include prednisone which the patient completed, although she continues to experience discomfort, shortness of breath and chest tightness. She reports she is using her nebulizers at home. She denies any sputum production, dyspnea on exertion orthopnea or any leg swelling She returned from an emergency visit where she was provided with unspecified antibiotics and prednisone for bronchitis, with some relief noted. The patient also reports a recent echocardiogram and cardiac screening that were reportedly normal, despite a family history of cardiac disease. Other recent tests include normal pulmonary imaging. Social History - Lives alone but has family nearby who are supportive - Reports frequent family gatherings - Recently visited [place] on vacation - Seems to suffer from health-related anxiety Review of Systems - Cardiovascular: Reports episodes of palpitations - Neurological: Reports migraines unresponsive to medications - Musculoskeletal: Reports pain in the face and upper body - Respiratory: Reports chest and back pain, exacerbated asthma symptoms - General: Reports dizziness intermittently - Psychiatric: Reports anxiety, does not sleep well Physical Exam Appearance: Alert. Oriented X3. No acute distress. Head: Normal external exam. Normocephalic. Atraumatic. Eyes: Pupils are equal, round, and reactive to light. Extraocular movements intact. Conjunctiva and sclera normal. Eyelids normal. Ears: External auditory canal normal. Tympanic membranes normal. Throat: Pharynx normal. Uvula midline. Moist mucous membranes. Neck: Normal inspection. Neck supple. Full range of motion. No adenopathy. Thyroid Normal. No meningeal signs. No neck mass noted. Cardiovascular: Normal heart rate and rhythm. Heart sound normal. No murmurs noted. Pulses normal throughout. Respiratory: No respiratory distress. Painless inspiration. Breath sounds normal. No wheezes/rales/rhonchi noted. Chest nontender. No accessory muscle usage noted or decreased air movement noted. Abdomen: Soft and nontender. Bowel sounds normal in all 4 quadrants. No distention noted. No organomegaly noted. No visible injury noted. Back: No costovertebral angle tenderness. Full range of motion noted. Skin: Skin warm and dry. Normal skin color. Normal skin turgor. No rashes/lesions/lacerations noted. Extremities: No lower extremity edema. Extremities exhibit normal range of motion. Extremities nontender. Neuro: Oriented X 3. No motor deficit. No sensory deficit. Reflexes normal. Results - Labs: Normal potassium levels noted - Imaging: Normal pulmonary imaging during two emergency visits Plan - Continue management for asthma with currently prescribed medication, as previous prednisone seemed effective. - Neurology follow-up for chronic migraine management with intent to start injectable treatment. - Monitor for any cardiac symptoms considering family history, despite normal echocardiography. - Patient instructed to go to the ER whenever she has chest pain. - Consider exploring other therapeutic options for anxiety to possibly alleviate migraine exacerbations. Such as therapy referral. - Instructions to follow up with neurology for further guidance on migraines and injectables. Patient was informed and verbally consented to the use of an ambient scribe for clinic note documentation during this visit. Discussion Notes I discussed with the patient that her current migraines seem to require a more targeted therapy, and I emphasized the importance of following up with neurology who can manage her need for injectable treatments. For her bronchitis and asthma, I advised completing the current course of medications and monitoring her symptoms closely, particularly any persistent chest pain or respiratory distress. I explained the importance of recognizing how anxiety might exacerbate her symptoms and encouraged her to continue engaging with routine health monitoring. I reassured her about cardiac health as current diagnostics show no abnormalities, but acknowledged the importance of family history in clinical decision-making. Follow-ups with her neurologist, as well as compliance with respiratory management, are crucial and were emphasized. Patient Instructions - Follow up with your neurologist regarding injectable treatments for migraines. - Complete all prescribed medications for your respiratory condition. - Monitor your respiratory symptoms closely and visit the emergency department if chest pain persists or worsens. - Engage in relaxation techniques to help manage anxiety. - Revisit your potassium supplement use based on blood tests results. - Maintain regular medical appointments for ongoing assessment.
[2024-06-26 15:31] VITALS: BP 130/80; PULSE 102; O2SAT 96; BMI 27.6
== END 2024-06-26 17:17 | disposition home or self-care (01) ==
PROVIDERS: PCP Internal Medicine; Visit Provider Internal Medicine
DX: J44.89 Other specified chronic obstructive pulmonary disease (principal); F11.10 Opioid abuse, uncomplicated; F32.1 Major depressive disorder, single episode, moderate; J40 Bronchitis, not specified as acute or chronic; G43.909 Migraine, unspecified, not intractable, without status migrainosus; E66.3 Overweight; F41.1 Generalized anxiety disorder; I10 Essential (primary) hypertension; G47.00 Insomnia, unspecified

== ENCOUNTER 2024-07-15 14:40 | Emergency (ER) | payer OTHER, SELFPAY | END 2024-07-15 17:15 | disposition left against medical advice (07) | LOC: HO.ED 17:17 | PROVIDERS: Emergency Provider Emergency Medicine; PCP Internal Medicine | DX: R42 Dizziness and giddiness (principal); R51.9 Headache, unspecified; R11.0 Nausea; Z53.21 Procedure and treatment not carried out due to patient leaving prior to being seen by health care provider ==

== ENCOUNTER 2024-08-11 13:58 | Outpatient (AMB) | payer OTHER, SELFPAY ==
--- NOTE | 2024-08-11 14:26 | MHC.OFFWIV ---
Intake Vital Signs 08/11/24 14:34 Height 5 ft 1 in BP 130/82 Blood Pressure Location Rt brachial Position Sitting Pulse 81 Pulse Source Pulse Oximeter Temp 98.6 F Temp Source Oral Pulse Oximetry (%) 99 Intake Visit Reasons: EP itching under eyes,allergies? Patient Tobacco Use Status: Current someday Tobacco user Allergies amitriptyline Allergy (Intermediate, Verified 08/11/24 14:35) headache ibuprofen [From Motrin] Allergy (Intermediate, Verified 08/11/24 14:35) ITCHY RASH gabapentin Adverse Reaction (Intermediate, Verified 08/11/24 14:35) vomiting Do you need a note to return to daycare/school/sports/work: No HPI HPI Comments History of Present Illness Details History of Present Illness The patient is a 53-year-old female presenting with acute allergic manifestation secondary to feline exposure. The symptoms emerged three to four days ago, resulting in severe itching and urticaria, particularly affecting her face and scalp, and leading to sleep disruptions. Despite using Benadryl and Claritin, relief was limited. She denied any significant respiratory distress but mentioned occasional mild throat discomfort. No recent changes in medication or diet were reported. She expressed that exposure to her boyfriend?s new cat last week might coincide with the onset of symptoms. The patient confirmed usage of an asthma inhaler, although she has experienced significant nocturnal discomfort due to pruritus. No significant facial swelling was observed during the visit. Physical Exam General: Cooperative, healthy appearing, comfortable, no acute distress and well developed Orientation: Patient oriented x3 Limitations: No limitations Head: Normal to inspection Ears: Hearing grossly normal bilaterally Nose: Normal external nose present Mouth: posterior oropharynx with some erythema but no edema Face and sinus: Normal facial exam, with some areas of dry skin around bilateral hairline/hoahaoism area Eyes: Appearance normal, both eyes and all related structures, Neck: Normal visual inspection and Yes full ROM Respiratory: Normal respiratory effort and able to speak in complete sentences. Clear to auscultation bilaterally Cardiovascular: Regular rate and rhythm. Normal S1 and S2 Skin: as above Neuro: Patient oriented x3 Extremities: Normal to inspection [facility] Medical History Smoking 1/2 pack a day or less Asthma-COPD overlap syndrome Acute maxillary sinusitis Otitis externa Hospital discharge follow-up Microscopic hematuria Physical exam Goiter Blurry vision Tobacco dependence Has daytime drowsiness Pulmonary nodules Moderate recurrent major depression Dyspnea Hand pain Skin lesion Leg pain, bilateral Dyslipidemia Epigastric pain Essential hypertension Cervical cancer screening GERD (gastroesophageal reflux disease) HTN (hypertension) Migraine Anxiety Depression Right lower quadrant pain Fibromyalgia Surgical History Previous section History of breast lump/mass excision History of lithotripsy H/O LEEP H/O tubal ligation Family History Father Myocardial infarction Mother Lung cancer Brother Liver cancer Maternal Grandfather Stomach cancer Maternal Grandmother No problems noted. Social History Housing: Apartment Alcohol intake: never Patient Tobacco Use Status: Current someday Tobacco user Tobacco use type: Cigarette Cigarette Packs Per Day: 0.25 Cigarettes Per Day: 3 e-Cigarette/Vaping Use: Never Used Second Hand Smoke Exposure: Yes service: No Current occupational status: disabled Gender identity: Female Cognitive needs: No Hearing needs: No Vision needs: No Female Reproductive History Menstrual Age of Menarche: 9 Review of Systems Const All systems reviewed & are unremarkable except as noted in HPI and below Physical Exam Vital Signs: Last Vital Signs Temp 98.6 F 08/11/24 14:34 Pulse 81 08/11/24 14:34 BP 130/82 08/11/24 14:34 Pulse Ox 99 08/11/24 14:34 Assessment & Plan Assessment & Plan (1) Allergic contact dermatitis due to animal (cat) (dog) dander: Code(s): L23.81 - Allergic contact dermatitis due to animal (cat) (dog) dander Plan: The patient has been identified as experiencing an acute allergic response potentially due to cat exposure. Management will include prescribing an EpiPen (educated on when and how to use and to always call 911 after using) for emergency cases of severe allergic reaction, hydroxyzine as an antihistamine with warnings about its sedative properties, and Pataday eye drops for ocular allergy relief. A topical hydrocortisone cream will be sent for dermatitis relief, mindful to apply it judiciously and not near her eyes. Environmental control measures are advised, especially in removing cat dander from the living space to alleviate and prevent exacerbations. Oral antihistamines are to be continued in concert with hydroxyzine. Referral or consultation with an aerodynamicist is advised to explore further preventative strategies as well as following up with her PCP. Patient was informed and verbally consented to the use of an ambient scribe for clinic note documentation during this visit. Medications: New hydrocortisone 2.5% 1 appl topical BID PRN 30 grams 0RF Skin Irritation olopatadine 0.7% (Pataday Once Daily Relief) 1 drp ophthalmic (eye) Q24H PRN 5 mL 0RF itching epinephrine (EpiPen 2-Pantera) for 3 doses 0.3 mg (0.3 mL) IM Q10M PRN 2 ea 0RF anaphylaxis hydroxyzine HCl 25 mg PO Q8H PRN 14 tabs 0RF itching Discontinued clobetasol 0.05% Discontinued Reason: Doctor's Order 1 appl topical BID 2 weeks 30 grams 0RF Coding Level of Care Code Est Pt Level 4 (22712) Diagnoses Allergic contact dermatitis due to animal (cat) (dog) dander L23.81
[2024-08-11 14:34] VITALS: BP 130/82; PULSE 81; TEMP 37; O2SAT 99
== END 2024-08-11 14:56 | disposition home or self-care (01) ==
PROVIDERS: PCP Internal Medicine; Visit Provider Physician Assistant
DX: L23.81 Allergic contact dermatitis due to animal (cat) (dog) dander (principal)

== ENCOUNTER → 2024-08-11 13:58 | Outpatient (BNVA) | payer OTHER, SELFPAY | PROVIDERS: PCP Internal Medicine | DX: L23.81 Allergic contact dermatitis due to animal (cat) (dog) dander (principal) | CPT/HCPCS: 99212 ==

== ENCOUNTER 2024-08-11 19:27 | Emergency (ER) | payer OTHER, SELFPAY ==
--- NOTE | 2024-08-11 19:30 | ECG_ITS ---
Test Reason : chest pain Blood Pressure : */* mmHG Vent. Rate : 106 BPM Atrial Rate : 106 BPM P-R Int : 120 ms QRS Dur : 66 ms QT Int : 342 ms P-R-T Axes : 44 24 41 degrees QTcB Int : 454 ms Sinus tachycardia Otherwise normal ECG When compared with ECG of 19-Jun-2024 16:33, T wave inversion no longer evident in Inferior leads Referred By: Generic ED Physician Electronically Signed By: DAVON REVELES
[2024-08-11 19:42] VITALS: BP 148/99; PULSE 96; RESP 20; TEMP 36.1; O2SAT 98; BMI 28.3
--- NOTE | 2024-08-11 19:43 | ED_ITS ---
HPI - Chest Pain General Chief Complaint: Chest Pain Stated Complaint: chest pain,rapid HR/ new allergy meds Related Data Previous Rx's ?Medication ?Instructions ?Recorded blood pressure monitor (Blood #1 ea 09/06/22 Pressure Kit) cane #1 ea 09/06/22 acetaminophen 500 mg tablet 1,000 mg (2 x 500 mg) PO TID PRN 10/07/22 pain #20 tabs underpads (Bed Underpads) #100 ea 03/28/23 walker #1 ea 03/28/23 ipratropium 20 mcg-albuterol 100 1 puff PO QID 30 days #25 mL 10/18/23 mcg/actuation mist for inhalation (Combivent Respimat) albuterol sulfate 2.5 mg/0.5 mL 5 mg inhalation Q4H PRN shortness 11/12/23 solution for nebulization of breath or wheezing #30 ea meclizine 12.5 mg tablet 12.5 mg PO TID PRN dizziness #14 11/21/23 tabs loratadine 10 mg tablet 10 mg PO DAILY PRN for allergies 12/01/23 30 days #30 tabs lidocaine 5 % topical patch 1 patch topical DAILY #30 ea 01/05/24 (Lidoderm) naloxone 10 mg/0.4 mL 2 mg (0.08 mL) subcut Q3M 30 days 01/09/24 injection,auto-injector #4 mL atorvastatin 20 mg tablet 20 mg PO BEDTIME 90 days #90 tabs 02/11/24 fluticasone propionate 50 2 spray intranasal Q12H 30 days 02/27/24 mcg/actuation nasal #16 grams spray,suspension (Flonase Allergy Relief) albuterol sulfate 2.5 mg/3 mL 2.5 mg (3 mL) inhalation Q6H PRN 04/03/24 (0.083 %) solution for nebulization bronchospasm 30 days #360 mL fluocinolone acetonide oil 0.01 % 5 drp otic (ears) BID 7 days #20 mL 04/03/24 ear drops (DermOtic Oil) nebulizers (AeroEclipse II #1 ea 04/03/24 Nebulizer) magnesium oxide 400 mg (241.3 mg 400 mg PO BEDTIME 30 days #30 tabs 04/16/24 magnesium) tablet riboflavin (vitamin B2) 400 mg 400 mg PO DAILY 30 days #30 tabs 04/16/24 tablet ondansetron 4 mg disintegrating 4 mg PO Q6H PRN nausea and 04/21/24 tablet vomiting #20 tabs montelukast 10 mg tablet 10 mg PO BEDTIME 30 days #30 tabs 04/22/24 (Singulair) varenicline tartrate 0.5 mg (11)-1 See Rx Instructions PO PER PKG DIR 04/22/24 mg (42) tablets in a dose pack #42 ea (Chantix Starting Month Box) cholecalciferol (vitamin D3) 50 50 mcg PO DAILY 90 days #90 tabs 04/24/24 mcg (2,000 unit) tablet metoclopramide HCl 10 mg tablet 10 mg PO Q6H PRN nausea and 04/30/24 (Reglan) vomiting #14 tabs fenofibrate 54 mg tablet 54 mg PO DAILY 90 days #90 tabs 05/07/24 montelukast 10 mg tablet 10 mg PO DAILY 30 days #30 tabs 06/16/24 diphenhydramine HCl 25 mg tablet 25 mg PO BEDTIME PRN sleep 15 days 06/26/24 (Benadryl Allergy) #30 tabs galcanezumab-gnlm 120 mg/mL 240 mg (2 mL) subcut ONCE 30 days 06/26/24 subcutaneous pen injector #2 mL (Emgality Pen) melatonin 10 mg capsule 10 mg PO BEDTIME PRN sleep #90 caps 06/26/24 rimegepant 75 mg disintegrating 75 mg PO ONCE PRN migraine 06/26/24 tablet (Nurtec ODT) headache 30 days #16 tabs clonazepam 0.5 mg tablet 0.5 mg PO BEDTIME PRN anxiety 30 07/09/24 days #60 tabs albuterol sulfate 90 mcg/actuation 2 puff inhalation Q4-6H PRN 07/16/24 aerosol inhaler shortness of breath or wheezing #6.7 grams tramadol 50 mg tablet 50 mg PO BID PRN severe pain 07/17/24 (scale score 7-10) 30 days #60 tabs venlafaxine 37.5 mg 37.5 mg PO BEDTIME 90 days #90 caps 08/06/24 capsule,extended release 24 hr epinephrine 0.3 mg/0.3 mL 0.3 mg (0.3 mL) IM Q10M PRN 08/11/24 injection, auto-injector (EpiPen anaphylaxis #2 ea 2-Pantera) hydrocortisone 2.5 % topical cream 1 appl topical BID PRN Skin 08/11/24 Irritation #30 grams hydroxyzine HCl 25 mg tablet 25 mg PO Q8H PRN itching #14 tabs 08/11/24 olopatadine 0.7 % eye drops 1 drp ophthalmic (eye) Q24H PRN 08/11/24 (Pataday Once Daily Relief) itching #5 mL Allergies Allergy/AdvReac Type Severity Reaction Status Date / Time amitriptyline Allergy Intermediate headache Verified 08/11/24 19:44 ibuprofen [From Motrin] Allergy Intermediate ITCHY RASH Verified 08/11/24 19:44 gabapentin AdvReac Intermediate vomiting Verified 08/11/24 19:44 PMFSH Past Medical History Medical History Smoking 1/2 pack a day or less Asthma-COPD overlap syndrome Acute maxillary sinusitis Otitis externa Hospital discharge follow-up Microscopic hematuria Physical exam Goiter Blurry vision Tobacco dependence Has daytime drowsiness Pulmonary nodules Moderate recurrent major depression Dyspnea Hand pain Skin lesion Leg pain, bilateral Dyslipidemia Epigastric pain Essential hypertension Cervical cancer screening GERD (gastroesophageal reflux disease) HTN (hypertension) Migraine Anxiety Depression Right lower quadrant pain Fibromyalgia Surgical History Previous section History of breast lump/mass excision History of lithotripsy H/O LEEP H/O tubal ligation Family History Family History Father Myocardial infarction Mother Lung cancer Brother Liver cancer Maternal Grandfather Stomach cancer Maternal Grandmother No problems noted. Social History Social History Housing: Apartment Alcohol intake: never Patient Tobacco Use Status: Current someday Tobacco user Tobacco use type: Cigarette Cigarette Packs Per Day: 0.25 Cigarettes Per Day: 3 e-Cigarette/Vaping Use: Never Used Second Hand Smoke Exposure: Yes Advance Directives: No Advance Directives Information Provided: No Do you have a plan to hurt others: No Plan service: No Current occupational status: disabled Gender identity: Female Cognitive needs: No Hearing needs: No Vision needs: No Physical Exam Vital Signs: Vital Signs: Last Vital Signs Temp 97.0 F 08/11/24 19:42 Pulse 96 08/11/24 19:42 Resp 20 08/11/24 19:42 BP 148/99 H 08/11/24 19:42 Pulse Ox 98 08/11/24 19:42 O2 Del Method Room Air 08/11/24 19:42 BMI result Body Mass Index 28.3 Course Course Course Narrative: This is a Rapid Medical Examination (RME) performed by Mayda Sen PA-C in triage. Full HPI, ROS, assessment and treatment plan per primary provider in the Main ED. 53 yo female here for eval of chest tightness and palpitations that began after taking a dose of hydroxyzine. She was seen at [facility] today for 4 days of allergic reaction, prescribed hydroxyzine for this. She reports taking 1 dose and began to develop chest tightness and palpitations. Plan: labs, ekg Reevaluation(s) Reevaluation #1: Patient left the emergency department before myself or any of the other clinicians could review or explain physical exam findings, test results, need or lack there of for additional testing, treatment options, or a treatment plan. Discharge Plan Discharge Clinical Impression: Tachycardia Patient Disposition: Left W/O Completing Treatment Prescriptions: No Action (DME) blood pressure monitor [Blood Pressure Kit] Kit See Rx Instructions .ROUTE .MEDSUPPLY Qty: 1 0RF Rx Instructions: As directed (DME) cane Device See Rx Instructions .Route Qty: 1 0RF Rx Instructions: As directed (DME) walker Misc See Rx Instructions .Route Qty: 1 0RF Rx Instructions: To be use lifetime (DME) underpads [Bed Underpads] Pad See Rx Instructions .Route Qty: 100 0RF Rx Instructions: As directed Combivent Respimat 20-100 mcg/actuation mist 1 puff PO QID 30 Days Qty: 25 1RF Patient Comments: Pulmo given loratadine 10 mg tablet 10 mg PO DAILY PRN (Reason: for allergies) 30 Days Qty: 30 1RF naloxone 10 mg/0.4 mL auto-injector 2 mg subcut Q3M 30 Days Qty: 4 0RF Rx Instructions: until desired response atorvastatin 20 mg tablet 20 mg PO BEDTIME 90 Days Qty: 90 1RF magnesium oxide 400 mg (241.3 mg magnesium) tablet 400 mg PO BEDTIME 30 Days Qty: 30 6RF Rx Instructions: may hold for loose stools riboflavin (vitamin B2) 400 mg tablet 400 mg PO DAILY 30 Days Qty: 30 6RF cholecalciferol (vitamin D3) 50 mcg (2,000 unit) tablet 50 mcg PO DAILY 90 Days Qty: 90 1RF clonazepam 0.5 mg tablet 0.5 mg PO BEDTIME PRN (Reason: anxiety) 30 Days Qty: 60 1RF albuterol sulfate 90 mcg/actuation HFA aerosol inhaler 2 puff inhalation Q4-6H PRN (Reason: shortness of breath or wheezing) Qty: 6.7 6RF tramadol 50 mg tablet 50 mg PO BID PRN (Reason: severe pain (scale score 7-10)) 30 Days Qty: 60 0RF venlafaxine 37.5 mg capsule,extended release 24hr 37.5 mg PO BEDTIME 90 Days Qty: 90 1RF acetaminophen 500 mg tablet 1,000 mg PO TID PRN (Reason: pain) Qty: 20 0RF lidocaine [Lidoderm] 5 % adhesive patch,medicated 1 patch topical DAILY Qty: 30 0RF Rx Instructions: leave on most painful area for up to 12 hrs albuterol sulfate 2.5 mg/0.5 mL solution for nebulization 5 mg inhalation Q4H PRN (Reason: shortness of breath or wheezing) Qty: 30 0RF meclizine 12.5 mg tablet 12.5 mg PO TID PRN (Reason: dizziness) Qty: 14 0RF metoclopramide HCl [Reglan] 10 mg tablet 10 mg PO Q6H PRN (Reason: nausea and vomiting) Qty: 14 0RF fluticasone propionate [Flonase Allergy Relief] 50 mcg/actuation spray,suspension 2 spray intranasal Q12H 30 Days Qty: 16 0RF Rx Instructions: administer into each nostril ondansetron 4 mg tablet,disintegrating 4 mg PO Q6H PRN (Reason: nausea and vomiting) Qty: 20 6RF montelukast 10 mg tablet 10 mg PO DAILY 30 Days Qty: 30 11RF melatonin 10 mg capsule 10 mg PO BEDTIME PRN (Reason: sleep) Qty: 90 1RF Emgality Pen 120 mg/mL pen injector 240 mg subcut ONCE 30 Days Qty: 2 0RF Rx Instructions: Loading dose: 120 mg subcu injection x2 in alternate sites (total 240 mg). To be followed by maintenance dose of 120 mg subcu q.month. Nurtec ODT 75 mg tablet,disintegrating 75 mg PO ONCE MDD 1 tab PRN (Reason: migraine headache) 30 Days Qty: 16 6RF diphenhydramine HCl [Benadryl Allergy] 25 mg tablet 25 mg PO BEDTIME PRN (Reason: sleep) 15 Days Qty: 30 0RF Rx Instructions: may repeat once in 30-60 minutes if not effective montelukast [Singulair] 10 mg tablet 10 mg PO BEDTIME 30 Days Qty: 30 11RF varenicline tartrate [Chantix Starting Month Box] 0.5 mg (11)- 1 mg (42) tablets,dose pack See Rx Instructions PO PER PKG DIR Qty: 42 0RF Rx Instructions: PO PER PKG DIR fluocinolone acetonide oil [DermOtic Oil] 0.01 % drops 5 drp otic (ears) BID 7 Days Qty: 20 0RF (DME) nebulizers [AeroEclipse II Nebulizer] Misc See Rx Instructions .Route Qty: 1 0RF Rx Instructions: As directed albuterol sulfate 2.5 mg /3 mL (0.083 %) solution for nebulization 2.5 mg inhalation Q6H PRN (Reason: bronchospasm) 30 Days Qty: 360 0RF fenofibrate 54 mg tablet 54 mg PO DAILY 90 Days Qty: 90 1RF epinephrine [EpiPen 2-Pantera] 0.3 mg/0.3 mL auto-injector 0.3 mg IM Q10M PRN (Reason: anaphylaxis) Qty: 2 0RF Rx Instructions: for 3 doses hydroxyzine HCl 25 mg tablet 25 mg PO Q8H PRN (Reason: itching) Qty: 14 0RF hydrocortisone 2.5 % cream 1 appl topical BID PRN (Reason: Skin Irritation) Qty: 30 0RF Pataday Once Daily Relief 0.7 % drops 1 drp ophthalmic (eye) Q24H PRN (Reason: itching) Qty: 5 0RF Discharge Date/Time: 08/11/24 22:37
== END 2024-08-11 22:37 | disposition left against medical advice (07) ==
PROVIDERS: Emergency Provider Internal Medicine; PCP Internal Medicine
DX: R07.9 Chest pain, unspecified (principal); R00.0 Tachycardia, unspecified
CPT/HCPCS: 93005; 99283

== ENCOUNTER → 2024-08-11 19:30 | Outpatient (BNV) | payer OTHER, SELFPAY | PROVIDERS: Emergency Provider Internal Medicine; PCP Internal Medicine; Visit Provider Internal Medicine | DX: R00.0 Tachycardia, unspecified (principal) | CPT/HCPCS: 93010 ==

== ENCOUNTER 2024-09-04 02:48 | Emergency (ER) | payer OTHER, SELFPAY ==
[2024-09-04 02:51] VITALS: BP 152/87; PULSE 85; RESP 18; TEMP 36.6; O2SAT 96; BMI 27.8
--- NOTE | 2024-09-04 03:13 | PC.NURSE ---
Pt brought to [facility] for treatment assumed care of pt at this time. A&Ox3 skin pwd respirations even unlabored, endorsing headache, congestion, slight cough and body aches beginning yesterday. Denies sick contacts. Viral swab pending, awaiting primary provider eval, aware of plan of care.
--- NOTE | 2024-09-04 03:34 | PC.NURSE ---
Provider to bedside for primary eval.
[2024-09-04 03:37] LABS: Influenza A PCR NEGATIVE (Negative); Influenza B PCR NEGATIVE (Negative); Resp Syncy Virus RNA Qual PCR NEGATIVE (Negative); SARS COV2 PCR INHOUSE NEGATIVE (Negative)
--- NOTE | 2024-09-04 03:42 | ED.GENADULT ---
HPI - General Adult General Chief complaint: General Medical Stated complaint: feeling like I can't breath right & Headache Time Seen by Provider: 09/04/24 03:41 Source: patient and aerial photograph interpreter Mode of arrival: ambulatory Limitations: no limitations History of Present Illness ED Provider: DR. Acosta HPI narrative: 53-year-old female came in for evaluation of sore throat, cough, ear pain, headache, nausea. Patient with history of asthma and COPD feels wheezing improved with inhaler. No sick contacts, no recent travel. Related Data Previous Rx's ?Medication ?Instructions ?Recorded blood pressure monitor (Blood #1 ea 09/06/22 Pressure Kit) cane #1 ea 09/06/22 acetaminophen 500 mg tablet 1,000 mg (2 x 500 mg) PO TID PRN 10/07/22 pain #20 tabs underpads (Bed Underpads) #100 ea 03/28/23 walker #1 ea 03/28/23 ipratropium 20 mcg-albuterol 100 1 puff PO QID 30 days #25 mL 10/18/23 mcg/actuation mist for inhalation (Combivent Respimat) albuterol sulfate 2.5 mg/0.5 mL 5 mg inhalation Q4H PRN shortness 11/12/23 solution for nebulization of breath or wheezing #30 ea meclizine 12.5 mg tablet 12.5 mg PO TID PRN dizziness #14 11/21/23 tabs loratadine 10 mg tablet 10 mg PO DAILY PRN for allergies 12/01/23 30 days #30 tabs lidocaine 5 % topical patch 1 patch topical DAILY #30 ea 01/05/24 (Lidoderm) naloxone 10 mg/0.4 mL 2 mg (0.08 mL) subcut Q3M 30 days 01/09/24 injection,auto-injector #4 mL atorvastatin 20 mg tablet 20 mg PO BEDTIME 90 days #90 tabs 02/11/24 fluticasone propionate 50 2 spray intranasal Q12H 30 days 02/27/24 mcg/actuation nasal #16 grams spray,suspension (Flonase Allergy Relief) albuterol sulfate 2.5 mg/3 mL 2.5 mg (3 mL) inhalation Q6H PRN 04/03/24 (0.083 %) solution for nebulization bronchospasm 30 days #360 mL fluocinolone acetonide oil 0.01 % 5 drp otic (ears) BID 7 days #20 mL 04/03/24 ear drops (DermOtic Oil) nebulizers (AeroEclipse II #1 ea 04/03/24 Nebulizer) magnesium oxide 400 mg (241.3 mg 400 mg PO BEDTIME 30 days #30 tabs 04/16/24 magnesium) tablet riboflavin (vitamin B2) 400 mg 400 mg PO DAILY 30 days #30 tabs 04/16/24 tablet ondansetron 4 mg disintegrating 4 mg PO Q6H PRN nausea and 04/21/24 tablet vomiting #20 tabs montelukast 10 mg tablet 10 mg PO BEDTIME 30 days #30 tabs 04/22/24 (Singulair) varenicline tartrate 0.5 mg (11)-1 See Rx Instructions PO PER PKG DIR 04/22/24 mg (42) tablets in a dose pack #42 ea (Chantix Starting Month Box) cholecalciferol (vitamin D3) 50 50 mcg PO DAILY 90 days #90 tabs 04/24/24 mcg (2,000 unit) tablet metoclopramide HCl 10 mg tablet 10 mg PO Q6H PRN nausea and 04/30/24 (Reglan) vomiting #14 tabs fenofibrate 54 mg tablet 54 mg PO DAILY 90 days #90 tabs 05/07/24 montelukast 10 mg tablet 10 mg PO DAILY 30 days #30 tabs 06/16/24 diphenhydramine HCl 25 mg tablet 25 mg PO BEDTIME PRN sleep 15 days 06/26/24 (Benadryl Allergy) #30 tabs galcanezumab-gnlm 120 mg/mL 240 mg (2 mL) subcut ONCE 30 days 06/26/24 subcutaneous pen injector #2 mL (Emgality Pen) melatonin 10 mg capsule 10 mg PO BEDTIME PRN sleep #90 caps 06/26/24 rimegepant 75 mg disintegrating 75 mg PO ONCE PRN migraine 06/26/24 tablet (Nurtec ODT) headache 30 days #16 tabs clonazepam 0.5 mg tablet 0.5 mg PO BEDTIME PRN anxiety 30 07/09/24 days #60 tabs albuterol sulfate 90 mcg/actuation 2 puff inhalation Q4-6H PRN 07/16/24 aerosol inhaler shortness of breath or wheezing #6.7 grams venlafaxine 37.5 mg 37.5 mg PO BEDTIME 90 days #90 caps 08/06/24 capsule,extended release 24 hr epinephrine 0.3 mg/0.3 mL 0.3 mg (0.3 mL) IM Q10M PRN 08/11/24 injection, auto-injector (EpiPen anaphylaxis #2 ea 2-Pantera) hydrocortisone 2.5 % topical cream 1 appl topical BID PRN Skin 08/11/24 Irritation #30 grams hydroxyzine HCl 25 mg tablet 25 mg PO Q8H PRN itching #14 tabs 08/11/24 olopatadine 0.7 % eye drops 1 drp ophthalmic (eye) Q24H PRN 08/11/24 (Pataday Once Daily Relief) itching #5 mL tramadol 50 mg tablet 50 mg PO BID PRN severe pain 08/19/24 (scale score 7-10) 30 days #60 tabs Allergies Allergy/AdvReac Type Severity Reaction Status Date / Time amitriptyline Allergy Intermediate headache Verified 09/04/24 02:51 ibuprofen [From Motrin] Allergy Intermediate ITCHY RASH Verified 09/04/24 02:51 gabapentin AdvReac Intermediate vomiting Verified 09/04/24 02:51 Review of Systems Review of Systems: All other systems are reviewed and are negative Constitutional: Reports as per HPI and Reports no additional constitutional complaints Eyes: Reports as per HPI and Reports no additional eye complaints Reports system reviewed and no additional complaints, except as documented Cardiovascular: Reports as per HPI and Reports no additional cardiovascular complaints Respiratory: Reports as per HPI and Reports no additional respiratory complaints Gastrointestinal: Reports as per HPI and Reports no additional gastrointestinal complaints Genitourinary: Reports no additional female genitourinary complaints Musculoskeletal: Reports no additional musculoskeletal complaints Skin/Breast: Reports system reviewed and no additional complaints, except as docu Psychiatric: Reports no additional psychiatric complaints Endocrine: Reports no additional endocrine complaints Hematologic/Lymphatic: Reports no additional hematologic/lymphatic complaints Allergic/Immunologic: Reports no additional allergic/immunologic complaints Reports system reviewed and no additional complaints, except as documented and Reports Abnormal speech present FOR[facility] Past Medical History Medical History Smoking 1/2 pack a day or less Asthma-COPD overlap syndrome Acute maxillary sinusitis Otitis externa Hospital discharge follow-up Microscopic hematuria Physical exam Goiter Blurry vision Tobacco dependence Has daytime drowsiness Pulmonary nodules Moderate recurrent major depression Dyspnea Hand pain Skin lesion Leg pain, bilateral Dyslipidemia Epigastric pain Essential hypertension Cervical cancer screening GERD (gastroesophageal reflux disease) HTN (hypertension) Migraine Anxiety Depression Right lower quadrant pain Fibromyalgia Surgical History Previous section History of breast lump/mass excision History of lithotripsy H/O LEEP H/O tubal ligation Family History Family History Father Myocardial infarction Mother Lung cancer Brother Liver cancer Maternal Grandfather Stomach cancer Maternal Grandmother No problems noted. Social History Social History Housing: Apartment Alcohol intake: never Patient Tobacco Use Status: Current someday Tobacco user Tobacco use type: Cigarette Cigarette Packs Per Day: 0.25 Cigarettes Per Day: 3 Smoked in Last 30 Days: No e-Cigarette/Vaping Use: Never Used Second Hand Smoke Exposure: Yes Use of substances other than those prescribed or required for medical reasons: No Advance Directives: No Advance Directives Information Provided: Yes Do you have a plan to hurt others: No Plan Patient : No service: No Current occupational status: disabled Gender identity: Female Cognitive needs: No Hearing needs: No Vision needs: No Physical Exam ED Vital Signs: Vital Signs - 24 hr 09/04/24 02:51 Temperature 97.9 F Pulse Rate 85 Respiratory Rate 18 Blood Pressure 152/87 H Pulse Oximetry 96 Oxygen Delivery Method Room Air BMI result Body Mass Index 27.8 Vital signs have been reviewed and appear to be correct. Blood pressure elevated. Heart rate normal. Respiratory rate normal. Temperature normal. Oxygen saturation normal. Appearance: Alert. Oriented X3. No acute distress. Head: Normal external exam. Normocephalic. Atraumatic. No Goodrich signs noted. No raccoon eyes noted Eyes: PERRLA. EOMI. Conjunctiva and sclera normal. Eyelids normal. ENT: TM's Normal. Pharynx normal. Uvula midline. Moist mucous membranes. No trismus noted. No drooling noted. No muffled voice noted. Neck: Normal inspection. Neck supple. FROM. No adenopathy. Thyroid Normal. No meningeal signs. No neck mass noted. CVS: Normal heart rate and rhythm. Heart sound normal. No murmurs noted. Pulses normal throughout. Respiratory: No respiratory distress. Painless inspiration. Breath sounds normal. No wheezes/rales/rhonchi noted. Chest nontender. No accessory muscle usage noted or decreased air movement noted. Abdomen: Soft and nontender. Bowel sounds normal in all 4 quadrants. No distention noted. No organomegaly noted. No visible injury noted. Back: No CVA tenderness. Full range of motion noted. Skin: Skin warm and dry. Normal skin color. Normal skin turgor. No rashes/lesions/lacerations noted. Extremities: No lower extremity edema. Extremities exhibit normal range of motion. Extremities nontender. Neuro: Oriented X 3. Cranial nerve exam: II-XII are grossly intact No motor deficit. No sensory deficit. Reflexes normal. Course Reevaluation(s) Reevaluation #1: 53-year-old female came with flu-like symptoms, patient is negative for flu, COVID-19 a, and RSV. Rapid strep is negative, patient had patent airway, instructed to use Tylenol/ibuprofen to control her pain. Time: 04:57 Medications Administered Discontinued Medications Generic Name Dose Route Start Last Admin Trade Name Freq PRN Reason Stop Dose Admin Acetaminophen 975 mg 09/04/24 03:42 09/04/24 03:53 Acetaminophen 325 Mg Tablet PO 09/04/24 03:43 975 mg ONCE ONE Administration Medical Decision Making Differential Diagnosis Differential Diagnoses: The differential diagnosis associated with the presentation includes (Viral pharyngitis, bacterial pharyngitis, patent airway.) Admission/Observation Consideration of admission/observation: Escalation of care including admission/observation considered Lab Data Labs: Lab Results 09/04/24 09/04/24 Range/Units 02:55 03:47 Influenza Type A (PCR) NEGATIVE (Negative) Influenza Type B (PCR) NEGATIVE (Negative) RSV RNA Qual (PCR) NEGATIVE (Negative) SARS-CoV-2 RNA (RT-PCR) NEGATIVE (Negative) S. pyogenes GrpA DANTE Negative (Negative) Discharge Plan Discharge Clinical Impression: Acute viral syndrome Patient Disposition: Home, Self-Care Instructions: Viral Syndrome (ED) Prescriptions: No Action (DME) blood pressure monitor [Blood Pressure Kit] Kit See Rx Instructions .ROUTE .MEDSUPPLY Qty: 1 0RF Rx Instructions: As directed (DME) cane Device See Rx Instructions .Route Qty: 1 0RF Rx Instructions: As directed (DME) walker Misc See Rx Instructions .Route Qty: 1 0RF Rx Instructions: To be use lifetime (DME) underpads [Bed Underpads] Pad See Rx Instructions .Route Qty: 100 0RF Rx Instructions: As directed Combivent Respimat 20-100 mcg/actuation mist 1 puff PO QID 30 Days Qty: 25 1RF Patient Comments: Pulmo given loratadine 10 mg tablet 10 mg PO DAILY PRN (Reason: for allergies) 30 Days Qty: 30 1RF naloxone 10 mg/0.4 mL auto-injector 2 mg subcut Q3M 30 Days Qty: 4 0RF Rx Instructions: until desired response atorvastatin 20 mg tablet 20 mg PO BEDTIME 90 Days Qty: 90 1RF magnesium oxide 400 mg (241.3 mg magnesium) tablet 400 mg PO BEDTIME 30 Days Qty: 30 6RF Rx Instructions: may hold for loose stools riboflavin (vitamin B2) 400 mg tablet 400 mg PO DAILY 30 Days Qty: 30 6RF cholecalciferol (vitamin D3) 50 mcg (2,000 unit) tablet 50 mcg PO DAILY 90 Days Qty: 90 1RF clonazepam 0.5 mg tablet 0.5 mg PO BEDTIME PRN (Reason: anxiety) 30 Days Qty: 60 1RF albuterol sulfate 90 mcg/actuation HFA aerosol inhaler 2 puff inhalation Q4-6H PRN (Reason: shortness of breath or wheezing) Qty: 6.7 6RF venlafaxine 37.5 mg capsule,extended release 24hr 37.5 mg PO BEDTIME 90 Days Qty: 90 1RF tramadol 50 mg tablet 50 mg PO BID PRN (Reason: severe pain (scale score 7-10)) 30 Days Qty: 60 0RF acetaminophen 500 mg tablet 1,000 mg PO TID PRN (Reason: pain) Qty: 20 0RF lidocaine [Lidoderm] 5 % adhesive patch,medicated 1 patch topical DAILY Qty: 30 0RF Rx Instructions: leave on most painful area for up to 12 hrs albuterol sulfate 2.5 mg/0.5 mL solution for nebulization 5 mg inhalation Q4H PRN (Reason: shortness of breath or wheezing) Qty: 30 0RF meclizine 12.5 mg tablet 12.5 mg PO TID PRN (Reason: dizziness) Qty: 14 0RF metoclopramide HCl [Reglan] 10 mg tablet 10 mg PO Q6H PRN (Reason: nausea and vomiting) Qty: 14 0RF fluticasone propionate [Flonase Allergy Relief] 50 mcg/actuation spray,suspension 2 spray intranasal Q12H 30 Days Qty: 16 0RF Rx Instructions: administer into each nostril ondansetron 4 mg tablet,disintegrating 4 mg PO Q6H PRN (Reason: nausea and vomiting) Qty: 20 6RF montelukast 10 mg tablet 10 mg PO DAILY 30 Days Qty: 30 11RF melatonin 10 mg capsule 10 mg PO BEDTIME PRN (Reason: sleep) Qty: 90 1RF Emgality Pen 120 mg/mL pen injector 240 mg subcut ONCE 30 Days Qty: 2 0RF Rx Instructions: Loading dose: 120 mg subcu injection x2 in alternate sites (total 240 mg). To be followed by maintenance dose of 120 mg subcu q.month. Nurtec ODT 75 mg tablet,disintegrating 75 mg PO ONCE MDD 1 tab PRN (Reason: migraine headache) 30 Days Qty: 16 6RF diphenhydramine HCl [Benadryl Allergy] 25 mg tablet 25 mg PO BEDTIME PRN (Reason: sleep) 15 Days Qty: 30 0RF Rx Instructions: may repeat once in 30-60 minutes if not effective montelukast [Singulair] 10 mg tablet 10 mg PO BEDTIME 30 Days Qty: 30 11RF varenicline tartrate [Chantix Starting Month Box] 0.5 mg (11)- 1 mg (42) tablets,dose pack See Rx Instructions PO PER PKG DIR Qty: 42 0RF Rx Instructions: PO PER PKG DIR fluocinolone acetonide oil [DermOtic Oil] 0.01 % drops 5 drp otic (ears) BID 7 Days Qty: 20 0RF (DME) nebulizers [AeroEclipse II Nebulizer] Misc See Rx Instructions .Route Qty: 1 0RF Rx Instructions: As directed albuterol sulfate 2.5 mg /3 mL (0.083 %) solution for nebulization 2.5 mg inhalation Q6H PRN (Reason: bronchospasm) 30 Days Qty: 360 0RF fenofibrate 54 mg tablet 54 mg PO DAILY 90 Days Qty: 90 1RF epinephrine [EpiPen 2-Pantera] 0.3 mg/0.3 mL auto-injector 0.3 mg IM Q10M PRN (Reason: anaphylaxis) Qty: 2 0RF Rx Instructions: for 3 doses hydroxyzine HCl 25 mg tablet 25 mg PO Q8H PRN (Reason: itching) Qty: 14 0RF hydrocortisone 2.5 % cream 1 appl topical BID PRN (Reason: Skin Irritation) Qty: 30 0RF Pataday Once Daily Relief 0.7 % drops 1 drp ophthalmic (eye) Q24H PRN (Reason: itching) Qty: 5 0RF Referrals: Neyda Foster MD [Primary Care Provider] - Print Language: Danish
[2024-09-04] MEDS: Acetaminophen 325 MG TABLET 975 MG PO (03:53)
[2024-09-04 04:07] LABS: IDNOW Serial# 58CA691E; Strep A Nucleic Acid Negative (Negative)
[2024-09-04 05:08] VITALS: BP 152/87; PULSE 85; RESP 18; TEMP 36.6; O2SAT 96
== END 2024-09-04 05:08 | disposition home or self-care (01) ==
PROVIDERS: Emergency Provider Emergency Medicine; PCP Internal Medicine
DX: B34.9 Viral infection, unspecified (principal); J02.9 Acute pharyngitis, unspecified; R05.9 Cough, unspecified; Z03.818 Encounter for observation for suspected exposure to other biological agents ruled out; Z79.899 Other long term (current) drug therapy
CPT/HCPCS: 0241U; 87651; 99283; 99284

== ENCOUNTER 2024-09-17 17:46 | Emergency (ER) | payer OTHER, SELFPAY ==
--- NOTE | ~2024-09-17 | CT_ITS ---
CLINICAL HISTORY: SY CT head without contrast Comparison: CT/[place]/SR - CT HEAD/BRAIN WO IV CON - 04/30/24 19:31 EST Findings: No intra-axial mass, midline shift, hydrocephalus, or acute hemorrhage. No significant atrophy-like change or white matter disease. There is no sinus or mastoid fluid. The orbits are within normal limits. There is no acute fracture. IMPRESSION: 1. No acute intracranial findings. This document has been electronically signed by: Sofia Lundy MD on 09/17/2024 19:05:20
--- NOTE | ~2024-09-17 | XR_ITS ---
CLINICAL HISTORY: SOB 2 view chest x-ray Comparison: CR - XR CHEST 1V - 06/19/24 17:43 EST Findings: The lungs are clear. Calcified granuloma of the right upper lung. Heart size is normal. No acute fracture. IMPRESSION: 1. No acute findings. This document has been electronically signed by: Sofia Lundy MD on 09/17/2024 18:36:18
[2024-09-17 17:58] VITALS: BP 163/99; PULSE 95; RESP 16; TEMP 36.3; O2SAT 97; BMI 31.5
--- NOTE | 2024-09-17 17:59 | ED_ITS ---
HPI - General Adult General Chief complaint: General Medical Stated complaint: migraine Time Seen by Provider: 09/18/24 00:30 Source: patient Mode of arrival: ambulatory Limitations: language barrier History of Present Illness ED Provider: Dr. Celso Muro HPI narrative: 53-year-old female with a history of HTN, HLD, asthma, COPD, who presents to the emergency department for evaluation of headache, neck pain, chest pain, numbness in her hands and feet. Patient states she has a history of migraines but he was not had a migraine in many years. She states for the last 6 days she was had a constant, pressure, throbbing like headache located on the right side of her head. She states the pain is greater than 10/10. She had associated nausea and 1 episode of vomiting. Patient was also complaining of chest pain. She states she does have fibromyalgia and she believes he was left with pain in the center of her chest may be caused by her fibromyalgia. The pain is a constant pain that started at 17:00 hours and was present at the time my evaluation. The patient denied fever. She states she was had occasional chills. Related Data Previous Rx's ?Medication ?Instructions ?Recorded blood pressure monitor (Blood #1 ea 09/06/22 Pressure Kit) cane #1 ea 09/06/22 acetaminophen 500 mg tablet 1,000 mg (2 x 500 mg) PO TID PRN 10/07/22 pain #20 tabs underpads (Bed Underpads) #100 ea 03/28/23 walker #1 ea 03/28/23 ipratropium 20 mcg-albuterol 100 1 puff PO QID 30 days #25 mL 10/18/23 mcg/actuation mist for inhalation (Combivent Respimat) albuterol sulfate 2.5 mg/0.5 mL 5 mg inhalation Q4H PRN shortness 11/12/23 solution for nebulization of breath or wheezing #30 ea meclizine 12.5 mg tablet 12.5 mg PO TID PRN dizziness #14 11/21/23 tabs loratadine 10 mg tablet 10 mg PO DAILY PRN for allergies 12/01/23 30 days #30 tabs lidocaine 5 % topical patch 1 patch topical DAILY #30 ea 01/05/24 (Lidoderm) naloxone 10 mg/0.4 mL 2 mg (0.08 mL) subcut Q3M 30 days 01/09/24 injection,auto-injector #4 mL atorvastatin 20 mg tablet 20 mg PO BEDTIME 90 days #90 tabs 02/11/24 fluticasone propionate 50 2 spray intranasal Q12H 30 days 02/27/24 mcg/actuation nasal #16 grams spray,suspension (Flonase Allergy Relief) albuterol sulfate 2.5 mg/3 mL 2.5 mg (3 mL) inhalation Q6H PRN 04/03/24 (0.083 %) solution for nebulization bronchospasm 30 days #360 mL fluocinolone acetonide oil 0.01 % 5 drp otic (ears) BID 7 days #20 mL 04/03/24 ear drops (DermOtic Oil) nebulizers (AeroEclipse II #1 ea 04/03/24 Nebulizer) magnesium oxide 400 mg (241.3 mg 400 mg PO BEDTIME 30 days #30 tabs 04/16/24 magnesium) tablet riboflavin (vitamin B2) 400 mg 400 mg PO DAILY 30 days #30 tabs 04/16/24 tablet ondansetron 4 mg disintegrating 4 mg PO Q6H PRN nausea and 04/21/24 tablet vomiting #20 tabs montelukast 10 mg tablet 10 mg PO BEDTIME 30 days #30 tabs 04/22/24 (Singulair) varenicline tartrate 0.5 mg (11)-1 See Rx Instructions PO PER PKG DIR 04/22/24 mg (42) tablets in a dose pack #42 ea (Chantix Starting Month Box) cholecalciferol (vitamin D3) 50 50 mcg PO DAILY 90 days #90 tabs 04/24/24 mcg (2,000 unit) tablet metoclopramide HCl 10 mg tablet 10 mg PO Q6H PRN nausea and 04/30/24 (Reglan) vomiting #14 tabs fenofibrate 54 mg tablet 54 mg PO DAILY 90 days #90 tabs 05/07/24 montelukast 10 mg tablet 10 mg PO DAILY 30 days #30 tabs 06/16/24 diphenhydramine HCl 25 mg tablet 25 mg PO BEDTIME PRN sleep 15 days 06/26/24 (Benadryl Allergy) #30 tabs galcanezumab-gnlm 120 mg/mL 240 mg (2 mL) subcut ONCE 30 days 06/26/24 subcutaneous pen injector #2 mL (Emgality Pen) melatonin 10 mg capsule 10 mg PO BEDTIME PRN sleep #90 caps 06/26/24 rimegepant 75 mg disintegrating 75 mg PO ONCE PRN migraine 06/26/24 tablet (Nurtec ODT) headache 30 days #16 tabs clonazepam 0.5 mg tablet 0.5 mg PO BEDTIME PRN anxiety 30 07/09/24 days #60 tabs albuterol sulfate 90 mcg/actuation 2 puff inhalation Q4-6H PRN 07/16/24 aerosol inhaler shortness of breath or wheezing #6.7 grams venlafaxine 37.5 mg 37.5 mg PO BEDTIME 90 days #90 caps 08/06/24 capsule,extended release 24 hr epinephrine 0.3 mg/0.3 mL 0.3 mg (0.3 mL) IM Q10M PRN 08/11/24 injection, auto-injector (EpiPen anaphylaxis #2 ea 2-Pantera) hydrocortisone 2.5 % topical cream 1 appl topical BID PRN Skin 08/11/24 Irritation #30 grams hydroxyzine HCl 25 mg tablet 25 mg PO Q8H PRN itching #14 tabs 08/11/24 olopatadine 0.7 % eye drops 1 drp ophthalmic (eye) Q24H PRN 08/11/24 (Pataday Once Daily Relief) itching #5 mL tramadol 50 mg tablet 50 mg PO BID PRN severe pain 08/19/24 (scale score 7-10) 30 days #60 tabs tuaunkl-jfgwtlfyvgcmo-lturneao 250 2 tab PO Q6H PRN headache #20 tabs 09/18/24 mg-250 mg-65 mg tablet (Excedrin Extra Strength) diphenhydramine HCl 25 mg capsule 50 mg (2 x 25 mg) PO Q6H PRN 09/18/24 headache, nausea, vomiting #20 caps metoclopramide HCl 10 mg tablet 10 mg PO Q6H PRN nausea and 09/18/24 (Reglan) vomiting #14 tabs Allergies Allergy/AdvReac Type Severity Reaction Status Date / Time amitriptyline Allergy Intermediate headache Verified 09/17/24 18:01 ibuprofen [From Motrin] Allergy Intermediate ITCHY RASH Verified 09/17/24 18:01 gabapentin AdvReac Intermediate vomiting Verified 09/17/24 18:01 Review of Systems 2 Review of Systems: Yes all other systems are reviewed and are negative [facility] Past Medical History [facility] Narrative: Social history: She does smoke cigarettes. She denies tobacco and alcohol use. Medical History Smoking 1/2 pack a day or less Asthma-COPD overlap syndrome Acute maxillary sinusitis Otitis externa Hospital discharge follow-up Microscopic hematuria Physical exam Goiter Blurry vision Tobacco dependence Has daytime drowsiness Pulmonary nodules Moderate recurrent major depression Dyspnea Hand pain Skin lesion Leg pain, bilateral Dyslipidemia Epigastric pain Essential hypertension Cervical cancer screening GERD (gastroesophageal reflux disease) HTN (hypertension) Migraine Anxiety Depression Right lower quadrant pain Fibromyalgia Surgical History Previous section History of breast lump/mass excision History of lithotripsy H/O LEEP H/O tubal ligation Family History Family History Father Myocardial infarction Mother Lung cancer Brother Liver cancer Maternal Grandfather Stomach cancer Maternal Grandmother No problems noted. Social History Social History Housing: Apartment Alcohol intake: never Patient Tobacco Use Status: Current someday Tobacco user Tobacco use type: Cigarette Cigarette Packs Per Day: 0.25 Cigarettes Per Day: 3 Smoked in Last 30 Days: No e-Cigarette/Vaping Use: Never Used Second Hand Smoke Exposure: Yes Advance Directives: No Advance Directives Information Provided: Yes Patient : No service: No Current occupational status: disabled Gender identity: Female Cognitive needs: No Hearing needs: No Vision needs: No Physical Exam ED Vital Signs: Vital Signs - 24 hr 09/17/24 17:58 09/17/24 21:40 Temperature 97.3 F Pulse Rate 95 84 Respiratory Rate 16 15 Blood Pressure 163/99 H 138/72 Pulse Oximetry 97 97 Oxygen Delivery Method Room Air Room Air BMI result Body Mass Index 31.5 Vital signs revealed an elevated blood pressure of 163/93 otherwise unremarkable Exam: General: Awake, alert in no distress Head: Normocephalic, atraumatic EENT: PERRL, Lids normal, sclera normal, conjunctiva normal, nose normal , ears normal, throat without erythema or exudates Neck: Supple, no adenopathy Lung: breath sounds symmetric, no wheezing, rales or rhonchi Chest: symmetric movement, moderate to severe tenderness palpation over the sternum and costochondral joints bilaterally Heart: regular rate and rhythm, normal S1, S2 no murmurs or rubs Abdomen: soft, non-tender, nondistended, normal bowel sounds Back: no vertebral tenderness, no CVAT Extremities: no deformities, moves all extremities symmetrically Neuro: Awake, alert, oriented, normal speech, cranial nerves intact, moves all extremities symmetrically Psych: Pleasant, cooperative Course Course Course Narrative: This is an RME: Additional HPI, ROS, PE not included below will be deferred to primary provider. RME assessment and note performed by: Rosa M Zaidi PA-C This is a [id number], with hunter hx of HTN, HLD, asthma, COPD, who presents to the ER with complaints of facial pain, headache, chest pain, SOB for several days. Reports that chest pain radiates into her neck. Reports that her symptoms started 4 days ago and worsened today. She states that she has a history of migraines however she states that she has not had a migraine in many years. States that the worst symptoms she was having his migraine. NIH 0. She is not on AC Plan: Labs, EKG, viral swabs, CT head Medical Decision Making Medical Decision Making MDM Narrative: 53-year-old female with a history of HTN, HLD, asthma, COPD, who presents to the emergency department for evaluation of headache, neck pain, chest pain, numbness in her hands and feet. Patient was headache has been a constant, pressure, throbbing like pain x6 days which is greater than 10/2. Patient was chest pain started at 17:00 hours and has been constant in his present at the time my evaluation located in the sternal and anterior chest area. Vital signs revealed an elevated blood pressure. Physical examination did reveal significant sternal and costochondral tenderness. Neurologic exam was nonfocal Differential diagnosis: ?Includes but is not limited to migraine headache, headache, myocardial infarction, myocardial ischemia, costochondritis, fibromyalgia flare-up, anemia, electrolyte abnormalities Course: 00:35 My independent interpretation of the patient's laboratory evaluation is as follows: Normocytic anemia with an H&H of 11.9 and 35.8. CMP was normal. Initial troponin was below detectable limits. Repeat troponin was 15.6. I will obtain a 3rd troponin now to see if the troponin is trending upward. COVID-19, influenza and RSV tests were negative. This time I believe that the patient's headache is consistent with a migraine syndrome. Patient was treated with a Reglan 10 mg IV, Benadryl 50 mg IV and morphine 4 mg IV. Patient's chest pain is consistent with costochondritis and may be consistent with a flare-up of her fibromyalgia. 01:41 The patient did not want to he IV medications and requested oral medications. Therefore the patient was given Reglan 10 mg orally, Benadryl 50 mg orally and morphine 15 mg orally. The patient does not want a repeat troponin and just wants to go home. At this time I think that myocardial injury is very unlikely he was the cause for chest pain especially given the significant chest wall tenderness that she had on her exam. Patient was prescribed Reglan 10 mg, Benadryl 50 mg and Excedrin migraine 2 tablets every 6 hours as needed for headaches. Patient was given printed and verbal instructions and discharged home. Admission/Observation Consideration of admission/observation: Escalation of care including admission/observation considered (Yes) Lab Data MDM Lab Attestation statement: I reviewed the patient's lab results. 09/17/24 18:26 09/17/24 18:26 Labs: Lab Results 09/17/24 09/17/24 Range/Units 18:26 20:19 WBC 7.1 (4.8-10.8) X10*3/uL RBC 4.43 (4.20-5.50) X10*6/uL Hgb 11.9 L (12.0-16.0) g/dl Hct 35.8 L (37.0-47.0) % MCV 80.8 (80.0-98.0) fL MCH 26.9 L (27.0-33.0) pg MCHC 33.2 (31.0-35.0) g/dl RDW 14.3 (11.0-16.0) % Plt Count 290 (160-400) X10*3/uL MPV 10.9 (9.4-12.3) fL Immature Gran % (Auto) 0.3 (0.0-0.4) % Neut % (Auto) 58.3 (45-73) % Lymph % (Auto) 32.0 (20-40) % Logan % (Auto) 6.1 (2-11) % Eos % (Auto) 2.5 (0-4) % Baso % (Auto) 0.8 (0-2) % Lymph # (Auto) 2.3 (1.2-4.9) X10*3/uL Logan # (Auto) 0.4 (0.1-1.2) X10*3/uL Eos # (Auto) 0.2 (0.0-0.4) X10*3/uL Baso # (Auto) 0.1 (0.0-0.2) X10*3/uL Abs Immat Gran (auto) 0.02 (0.00-0.03) X10*3/uL Absolute Neuts (auto) 4.1 (2.0-8.3) x10*3/uL Absolute Nucleated RBC 0.000 (0.0-0.012) X10*3/uL Nucleated RBC % (auto) 0.0 (0.0-0.2) /100WBC Sodium 140 (135-145) mmol/L Potassium 3.8 (3.3-5.1) mmol/L Chloride 108 (96-108) mmol/L Carbon Dioxide 22 (22-29) mmol/L Anion Gap 14 (12-20) BUN 10 (9-16) mg/dL Creatinine 0.77 (0.5-1.4) mg/dL Estim Creat Clear Calc 65.6 Estimated GFR > 60 Random Glucose 91 (60-115) mg/dL Calcium 9.4 (8.4-10.2) mg/dL Magnesium 1.9 (1.6-2.6) mg/dL Total Bilirubin 0.4 (0.0-1.0) mg/dL Direct Bilirubin 0.1 (0.0-0.5) mg/dL AST 26 (5-31) U/L ALT 12 (0-31) U/L Alkaline Phosphatase 114 (39-117) U/L Troponin I High Sens < 2.7 15.6 D (<3.5-17.0) ng/L Total Protein 7.5 (6.5-8.0) g/dL Albumin 4.2 (3.5-5.0) g/dL Influenza Type A (PCR) NEGATIVE (Negative) Influenza Type B (PCR) NEGATIVE (Negative) RSV RNA Qual (PCR) NEGATIVE (Negative) SARS-CoV-2 RNA (RT-PCR) NEGATIVE (Negative) Independent Interpretation I performed an independent interpretation of an: EKG Interpretation: Independent interpretation patient's 12 EKG done on 09/17/2024 at 18:19 hours is as follows: Normal sinus rhythm with a rate of 83, normal OH interval, QRS duration QTC interval, no ST segment elevation, no ST segment depression, no PACs, no PVCs. Compared to EKG dated 08/11/2024 at 19:33 hours, patient was tachycardic with a heart rate of 106 otherwise there is no other significant change. Radiology Impression Discussion of test interpretation with radiology: I have reviewed the radiologist's reading. Radiologist Impression: CT head without contrast Comparison: CT/[place]/SR - CT HEAD/BRAIN WO IV CON - 04/30/24 19:31 EST Findings: No intra-axial mass, midline shift, hydrocephalus, or acute hemorrhage. No significant atrophy-like change or white matter disease. There is no sinus or mastoid fluid. The orbits are within normal limits. There is no acute fracture. IMPRESSION: 1. No acute intracranial findings. This document has been electronically signed by: Sofia Lundy MD on 09/17/2024 19:05:20 2 view chest x-ray Comparison: CR - XR CHEST 1V - 06/19/24 17:43 EST Findings: The lungs are clear. Calcified granuloma of the right upper lung. Heart size is normal. No acute fracture. IMPRESSION: 1. No acute findings. This document has been electronically signed by: Sofia Lundy MD on 09/17/2024 18:36:18 Prescription Management I considered prescription management with: Pain Medication (Excedrin migraine) and Other (Migraine regimen: Reglan 10 mg and Benadryl 50 mg) Chronic Conditions Patient?s care impacted by: Other (Migraine headaches, fibromyalgia) Discharge Plan Discharge Clinical Impression: Migraine syndrome, Acute costochondritis Patient Disposition: Home, Self-Care Additional Instructions: Your chest pain is consistent with inflammation of the joints of your chest this is called costochondritis. Your headache symptoms are consistent with a migraine.I want you to take the following 3 medications together every 6 hours as needed for headache, nausea or vomiting. ?Reglan (metoclopramide) in 10 mg, 1 pill Benadry (diphenhydramine) l 25 mg, 2 pills Excedrin migraine (acetaminophen, aspirin, caffeine), 2 pills. After you take these medications, lie down in a dark quiet room and try to fall asleep. ?These medications will make you sleepy, do not drive or work after taking these medications. Follow-up with your doctor in 2 days. Please return to the emergency department if your symptoms get worse or if you develop any symptoms that are concerning to you. Prescriptions: New diphenhydramine HCl 25 mg capsule 50 mg PO Q6H PRN (Reason: headache, nausea, vomiting) Qty: 20 0RF metoclopramide HCl [Reglan] 10 mg tablet 10 mg PO Q6H PRN (Reason: nausea and vomiting) Qty: 14 0RF Excedrin Extra Strength 250-250-65 mg tablet 2 tab PO Q6H PRN (Reason: headache) Qty: 20 0RF No Action (DME) blood pressure monitor [Blood Pressure Kit] Kit See Rx Instructions .ROUTE .MEDSUPPLY Qty: 1 0RF Rx Instructions: As directed (DME) cane Device See Rx Instructions .Route Qty: 1 0RF Rx Instructions: As directed (DME) walker Misc See Rx Instructions .Route Qty: 1 0RF Rx Instructions: To be use lifetime (DME) underpads [Bed Underpads] Pad See Rx Instructions .Route Qty: 100 0RF Rx Instructions: As directed Combivent Respimat 20-100 mcg/actuation mist 1 puff PO QID 30 Days Qty: 25 1RF Patient Comments: Pulmo given loratadine 10 mg tablet 10 mg PO DAILY PRN (Reason: for allergies) 30 Days Qty: 30 1RF naloxone 10 mg/0.4 mL auto-injector 2 mg subcut Q3M 30 Days Qty: 4 0RF Rx Instructions: until desired response atorvastatin 20 mg tablet 20 mg PO BEDTIME 90 Days Qty: 90 1RF magnesium oxide 400 mg (241.3 mg magnesium) tablet 400 mg PO BEDTIME 30 Days Qty: 30 6RF Rx Instructions: may hold for loose stools riboflavin (vitamin B2) 400 mg tablet 400 mg PO DAILY 30 Days Qty: 30 6RF cholecalciferol (vitamin D3) 50 mcg (2,000 unit) tablet 50 mcg PO DAILY 90 Days Qty: 90 1RF clonazepam 0.5 mg tablet 0.5 mg PO BEDTIME PRN (Reason: anxiety) 30 Days Qty: 60 1RF albuterol sulfate 90 mcg/actuation HFA aerosol inhaler 2 puff inhalation Q4-6H PRN (Reason: shortness of breath or wheezing) Qty: 6.7 6RF venlafaxine 37.5 mg capsule,extended release 24hr 37.5 mg PO BEDTIME 90 Days Qty: 90 1RF tramadol 50 mg tablet 50 mg PO BID PRN (Reason: severe pain (scale score 7-10)) 30 Days Qty: 60 0RF acetaminophen 500 mg tablet 1,000 mg PO TID PRN (Reason: pain) Qty: 20 0RF lidocaine [Lidoderm] 5 % adhesive patch,medicated 1 patch topical DAILY Qty: 30 0RF Rx Instructions: leave on most painful area for up to 12 hrs albuterol sulfate 2.5 mg/0.5 mL solution for nebulization 5 mg inhalation Q4H PRN (Reason: shortness of breath or wheezing) Qty: 30 0RF meclizine 12.5 mg tablet 12.5 mg PO TID PRN (Reason: dizziness) Qty: 14 0RF metoclopramide HCl [Reglan] 10 mg tablet 10 mg PO Q6H PRN (Reason: nausea and vomiting) Qty: 14 0RF fluticasone propionate [Flonase Allergy Relief] 50 mcg/actuation spray,suspension 2 spray intranasal Q12H 30 Days Qty: 16 0RF Rx Instructions: administer into each nostril ondansetron 4 mg tablet,disintegrating 4 mg PO Q6H PRN (Reason: nausea and vomiting) Qty: 20 6RF montelukast 10 mg tablet 10 mg PO DAILY 30 Days Qty: 30 11RF melatonin 10 mg capsule 10 mg PO BEDTIME PRN (Reason: sleep) Qty: 90 1RF Emgality Pen 120 mg/mL pen injector 240 mg subcut ONCE 30 Days Qty: 2 0RF Rx Instructions: Loading dose: 120 mg subcu injection x2 in alternate sites (total 240 mg). To be followed by maintenance dose of 120 mg subcu q.month. Nurtec ODT 75 mg tablet,disintegrating 75 mg PO ONCE MDD 1 tab PRN (Reason: migraine headache) 30 Days Qty: 16 6RF diphenhydramine HCl [Benadryl Allergy] 25 mg tablet 25 mg PO BEDTIME PRN (Reason: sleep) 15 Days Qty: 30 0RF Rx Instructions: may repeat once in 30-60 minutes if not effective montelukast [Singulair] 10 mg tablet 10 mg PO BEDTIME 30 Days Qty: 30 11RF varenicline tartrate [Chantix Starting Month Box] 0.5 mg (11)- 1 mg (42) tablets,dose pack See Rx Instructions PO PER PKG DIR Qty: 42 0RF Rx Instructions: PO PER PKG DIR fluocinolone acetonide oil [DermOtic Oil] 0.01 % drops 5 drp otic (ears) BID 7 Days Qty: 20 0RF (DME) nebulizers [AeroEclipse II Nebulizer] Misc See Rx Instructions .Route Qty: 1 0RF Rx Instructions: As directed albuterol sulfate 2.5 mg /3 mL (0.083 %) solution for nebulization 2.5 mg inhalation Q6H PRN (Reason: bronchospasm) 30 Days Qty: 360 0RF fenofibrate 54 mg tablet 54 mg PO DAILY 90 Days Qty: 90 1RF epinephrine [EpiPen 2-Pantera] 0.3 mg/0.3 mL auto-injector 0.3 mg IM Q10M PRN (Reason: anaphylaxis) Qty: 2 0RF Rx Instructions: for 3 doses hydroxyzine HCl 25 mg tablet 25 mg PO Q8H PRN (Reason: itching) Qty: 14 0RF hydrocortisone 2.5 % cream 1 appl topical BID PRN (Reason: Skin Irritation) Qty: 30 0RF Pataday Once Daily Relief 0.7 % drops 1 drp ophthalmic (eye) Q24H PRN (Reason: itching) Qty: 5 0RF Print Language: Macanese
--- NOTE | 2024-09-17 18:02 | ECG_ITS ---
Test Reason : CHEST PAIN Blood Pressure : */* mmHG Vent. Rate : 83 BPM Atrial Rate : 83 BPM P-R Int : 140 ms QRS Dur : 70 ms QT Int : 362 ms P-R-T Axes : 36 12 12 degrees QTcB Int : 425 ms Normal sinus rhythm Normal ECG When compared with ECG of 11-Aug-2024 19:33, No significant change was found Referred By: Rosa M Roberts Electronically Signed By: DAVON REVELES
[2024-09-17 18:34] LABS: MANUAL DIFF FLAG NO
[2024-09-17 18:49] LABS: Alanine Aminotransferase 12 U/L (0-31); Albumin Level 4.2 g/dL (3.5-5.0); Alkaline Phosphatase 114 U/L (39-117); Anion Gap 14 (12-20); Aspartate Amino Transferase 26 U/L (5-31); Bilirubin Direct 0.1 mg/dL (0.0-0.5); Bilirubin Total 0.4 mg/dL (0.0-1.0); Blood Urea Nitrogen 10 mg/dL (9-16); Calcium 9.4 mg/dL (8.4-10.2); Carbon Dioxide 22 mmol/L (22-29); Chloride 108 mmol/L (96-108); Creatinine Clr Calc Pharmacy 65.6; Estimated Glomerular Filt Rate > 60; Glucose Random 91 mg/dL (60-115); Magnesium 1.9 mg/dL (1.6-2.6); Potassium 3.8 mmol/L (3.3-5.1); Sodium 140 mmol/L (135-145); Total Protein 7.5 g/dL (6.5-8.0)
[2024-09-17 18:58] LABS: Troponin-I High Sensitivity < 2.7 ng/L (<3.5-17.0)
[2024-09-17 19:11] LABS: Influenza A PCR NEGATIVE (Negative); Influenza B PCR NEGATIVE (Negative); Resp Syncy Virus RNA Qual PCR NEGATIVE (Negative); SARS COV2 PCR INHOUSE NEGATIVE (Negative)
[2024-09-17 19:32] LABS: Basophils Absolute Auto 0.1 X10*3/uL (0.0-0.2); Basophils Percent Auto 0.8 % (0-2); Eosinophils Absolute Auto 0.2 X10*3/uL (0.0-0.4); Eosinophils Percent Auto 2.5 % (0-4); Hematocrit 35.8 % (37.0-47.0); Hemoglobin 11.9 g/dl (12.0-16.0); Imm Gran Abs Auto 0.02 X10*3/uL (0.00-0.03); Imm Gran Pct Auto 0.3 % (0.0-0.4); Lymphocytes Absolute Auto 2.3 X10*3/uL (1.2-4.9); Mean Corpuscular HGB Conc 33.2 g/dl (31.0-35.0); Mean Corpuscular Hemoglobin 26.9 pg (27.0-33.0); Mean Corpuscular Volume 80.8 fL (80.0-98.0); Mean Platelet Volume 10.9 fL (9.4-12.3); Monocytes Absolute Auto 0.4 X10*3/uL (0.1-1.2); Monocytes Percent Auto 6.1 % (2-11); Neutrophils Absolute Auto 4.1 x10*3/uL (2.0-8.3); Neutrophils Percent Auto 58.3 % (45-73); Platelet Count 290 X10*3/uL (160-400); Red Blood Count 4.43 X10*6/uL (4.20-5.50); Red Cell Distribution Width 14.3 % (11.0-16.0); White Blood Count 7.1 X10*3/uL (4.8-10.8)
[2024-09-17 20:49] LABS: Troponin-I High Sensitivity 15.6 ng/L (<3.5-17.0)
[2024-09-17 21:40] VITALS: BP 138/72; PULSE 84; RESP 15; O2SAT 97
--- NOTE | 2024-09-18 01:17 | MHC.EDTECH ---
at this time this tech entered the pt room in order to receive lab work, RN came to bedside to tell me that the pt was in need of an IV, when the RN entered the room the pt stated jenni she is going home because she has waiting 5 hours and was agitated that she hasn't gotten any medication. RN attempted to educate the pt that she will be receiving medication for her pain and nausea to which the pt stated that she would take the medication for nausea but she will be leaving afterwords. and RN aware.
--- NOTE | 2024-09-18 01:29 | PC.NURSE ---
Pt refusing treatment, provider Sciaruto at bedside.
[2024-09-18] MEDS: Metoclopramide HCl 10 MG TABLET PO (01:41)
[2024-09-18] MEDS: Morphine Sulfate Immed Release 15 MG TABLET PO (01:41)
[2024-09-18 01:54] VITALS: BP 00/00; PULSE 0; RESP 0; TEMP -17.7; TEMP 0; O2SAT 0
== END 2024-09-18 01:55 | disposition home or self-care (01) ==
PROVIDERS: Physician Assistant Medical; Emergency Provider Emergency Medicine Emergency Medical Services; PCP Internal Medicine
DX: G43.909 Migraine, unspecified, not intractable, without status migrainosus (principal); M94.0 Chondrocostal junction syndrome [Tietze]; R07.89 Other chest pain; F17.210 Nicotine dependence, cigarettes, uncomplicated; Z03.818 Encounter for observation for suspected exposure to other biological agents ruled out; Z79.899 Other long term (current) drug therapy
CPT/HCPCS: 0241U; 36415; 70450; 71046; 80048; 80076; 83735; 84484; 85025; 93005; 99284

== ENCOUNTER → 2024-09-17 18:02 | Outpatient (BNV) | payer OTHER, SELFPAY | PROVIDERS: PCP Internal Medicine; Visit Provider Nuclear Medicine | DX: R51.9 Headache, unspecified (principal); R06.02 Shortness of breath | CPT/HCPCS: 70450; 71046 ==

== ENCOUNTER → 2024-09-17 18:02 | Outpatient (BNV) | payer OTHER, SELFPAY | PROVIDERS: Emergency Provider Emergency Medicine Emergency Medical Services; PCP Internal Medicine; Visit Provider Internal Medicine | DX: R07.9 Chest pain, unspecified (principal) | CPT/HCPCS: 93010 ==

== ENCOUNTER 2024-09-21 15:24 | Emergency (ER) | payer OTHER, SELFPAY ==
--- NOTE | 2024-09-21 | ECG_ITS ---
Test Reason : cp Blood Pressure : */* mmHG Vent. Rate : 99 BPM Atrial Rate : 99 BPM P-R Int : 120 ms QRS Dur : 72 ms QT Int : 348 ms P-R-T Axes : 42 19 -10 degrees QTcB Int : 446 ms Normal sinus rhythm Nonspecific ST and T wave abnormality Abnormal ECG When compared with ECG of 17-Sep-2024 18:19, Nonspecific T wave abnormality now evident in Lateral leads Referred By: Generic ED Physician Electronically Signed By: Harry Suárez
--- NOTE | ~2024-09-21 | XR_ITS ---
CLINICAL HISTORY: SOB 2 view chest x-ray Comparison: CR - XR CHEST 2V - 09/17/24 18:11 EDT Findings: Calcified granuloma within the right upper lobe. Lung parenchyma otherwise clear. No consolidation or pleural effusion. Heart size is normal. No acute fracture. IMPRESSION: 1. No acute findings. This document has been electronically signed by: Sondra Adam MD on 09/21/2024 16:51:23
[2024-09-21 15:30] VITALS: BP 106/76; PULSE 98; RESP 18; TEMP 36.9; O2SAT 97; BMI 27.7
[2024-09-21 15:51] LABS: MANUAL DIFF FLAG NO
--- NOTE | 2024-09-21 15:52 | ED.GENADULT ---
HPI - General Adult General Chief complaint: General Medical Stated complaint: SOB/ dizzy Time Seen by Provider: 09/21/24 18:30 Source: patient Limitations: language barrier and other (Poor historian) History of Present Illness ED Provider: Blaire Epperson PA-C HPI narrative: 53-year-old female with a history of chronic sinus congestion, asthma/COPD overlap, allergic sinusitis, hypertension, hyperlipidemia, chronic pain, chronic migraine, fibromyalgia, anxiety with depression who presents with multiple complaints. Patient states her sinuses are congested and she has developed bilateral ear pain since yesterday. The right ear is more painful versus the left. Patient states she has concurrently dizzy with a headache. Denies fever. In addition, patient states she had an episode of left anterior chest discomfort, unable to describe the nature of her symptoms, however they were brief. Denies shortness of breath, diaphoresis, nausea, vomiting. Related Data Previous Rx's ?Medication ?Instructions ?Recorded blood pressure monitor (Blood #1 ea 09/06/22 Pressure Kit) cane #1 ea 09/06/22 acetaminophen 500 mg tablet 1,000 mg (2 x 500 mg) PO TID PRN 10/07/22 pain #20 tabs underpads (Bed Underpads) #100 ea 03/28/23 walker #1 ea 03/28/23 ipratropium 20 mcg-albuterol 100 1 puff PO QID 30 days #25 mL 10/18/23 mcg/actuation mist for inhalation (Combivent Respimat) albuterol sulfate 2.5 mg/0.5 mL 5 mg inhalation Q4H PRN shortness 11/12/23 solution for nebulization of breath or wheezing #30 ea meclizine 12.5 mg tablet 12.5 mg PO TID PRN dizziness #14 11/21/23 tabs loratadine 10 mg tablet 10 mg PO DAILY PRN for allergies 12/01/23 30 days #30 tabs lidocaine 5 % topical patch 1 patch topical DAILY #30 ea 01/05/24 (Lidoderm) naloxone 10 mg/0.4 mL 2 mg (0.08 mL) subcut Q3M 30 days 01/09/24 injection,auto-injector #4 mL atorvastatin 20 mg tablet 20 mg PO BEDTIME 90 days #90 tabs 02/11/24 fluticasone propionate 50 2 spray intranasal Q12H 30 days 02/27/24 mcg/actuation nasal #16 grams spray,suspension (Flonase Allergy Relief) albuterol sulfate 2.5 mg/3 mL 2.5 mg (3 mL) inhalation Q6H PRN 04/03/24 (0.083 %) solution for nebulization bronchospasm 30 days #360 mL fluocinolone acetonide oil 0.01 % 5 drp otic (ears) BID 7 days #20 mL 04/03/24 ear drops (DermOtic Oil) nebulizers (AeroEclipse II #1 ea 04/03/24 Nebulizer) magnesium oxide 400 mg (241.3 mg 400 mg PO BEDTIME 30 days #30 tabs 04/16/24 magnesium) tablet riboflavin (vitamin B2) 400 mg 400 mg PO DAILY 30 days #30 tabs 04/16/24 tablet ondansetron 4 mg disintegrating 4 mg PO Q6H PRN nausea and 04/21/24 tablet vomiting #20 tabs montelukast 10 mg tablet 10 mg PO BEDTIME 30 days #30 tabs 04/22/24 (Singulair) varenicline tartrate 0.5 mg (11)-1 See Rx Instructions PO PER PKG DIR 04/22/24 mg (42) tablets in a dose pack #42 ea (Chantix Starting Month Box) cholecalciferol (vitamin D3) 50 50 mcg PO DAILY 90 days #90 tabs 04/24/24 mcg (2,000 unit) tablet metoclopramide HCl 10 mg tablet 10 mg PO Q6H PRN nausea and 04/30/24 (Reglan) vomiting #14 tabs fenofibrate 54 mg tablet 54 mg PO DAILY 90 days #90 tabs 05/07/24 montelukast 10 mg tablet 10 mg PO DAILY 30 days #30 tabs 06/16/24 diphenhydramine HCl 25 mg tablet 25 mg PO BEDTIME PRN sleep 15 days 06/26/24 (Benadryl Allergy) #30 tabs galcanezumab-gnlm 120 mg/mL 240 mg (2 mL) subcut ONCE 30 days 06/26/24 subcutaneous pen injector #2 mL (Emgality Pen) melatonin 10 mg capsule 10 mg PO BEDTIME PRN sleep #90 caps 06/26/24 rimegepant 75 mg disintegrating 75 mg PO ONCE PRN migraine 06/26/24 tablet (Nurtec ODT) headache 30 days #16 tabs clonazepam 0.5 mg tablet 0.5 mg PO BEDTIME PRN anxiety 30 07/09/24 days #60 tabs albuterol sulfate 90 mcg/actuation 2 puff inhalation Q4-6H PRN 07/16/24 aerosol inhaler shortness of breath or wheezing #6.7 grams venlafaxine 37.5 mg 37.5 mg PO BEDTIME 90 days #90 caps 08/06/24 capsule,extended release 24 hr epinephrine 0.3 mg/0.3 mL 0.3 mg (0.3 mL) IM Q10M PRN 08/11/24 injection, auto-injector (EpiPen anaphylaxis #2 ea 2-Pantera) hydrocortisone 2.5 % topical cream 1 appl topical BID PRN Skin 08/11/24 Irritation #30 grams hydroxyzine HCl 25 mg tablet 25 mg PO Q8H PRN itching #14 tabs 08/11/24 olopatadine 0.7 % eye drops 1 drp ophthalmic (eye) Q24H PRN 08/11/24 (Pataday Once Daily Relief) itching #5 mL tramadol 50 mg tablet 50 mg PO BID PRN severe pain 08/19/24 (scale score 7-10) 30 days #60 tabs guiccaz-oxffpcitfjkcw-urhnwivx 250 2 tab PO Q6H PRN headache #20 tabs 09/18/24 mg-250 mg-65 mg tablet (Excedrin Extra Strength) diphenhydramine HCl 25 mg capsule 50 mg (2 x 25 mg) PO Q6H PRN 09/18/24 headache, nausea, vomiting #20 caps metoclopramide HCl 10 mg tablet 10 mg PO Q6H PRN nausea and 09/18/24 (Reglan) vomiting #14 tabs amoxicillin 500 mg tablet 500 mg PO Q12H #19 tabs 09/21/24 fluticasone propionate 50 1 spray intranasal BID PRN nasal 09/21/24 mcg/actuation nasal congestion #16 grams spray,suspension (Flonase Allergy Relief) Allergies Allergy/AdvReac Type Severity Reaction Status Date / Time amitriptyline Allergy Intermediate headache Verified 09/21/24 15:34 ibuprofen [From Motrin] Allergy Intermediate ITCHY RASH Verified 09/21/24 15:34 gabapentin AdvReac Intermediate vomiting Verified 09/21/24 15:34 Review of Systems Review of Systems: Yes all other systems are reviewed and are negative Constitutional: Constitutional: Denies fatigue, Denies fever(s) and Reports headache(s) ENT: Reports dizziness, Reports otalgia, Reports headache(s), Reports nasal congestion, Reports sinus pain and Reports sinus pressure Cardiovascular: Cardiovascular: Reports chest pain and Denies dyspnea Respiratory: Respiratory: Denies cough and Denies dyspnea Gastrointestinal: Gastrointestinal: Denies nausea and Denies vomiting Neurologic: Reports dizziness and Reports headache(s) Endocrine: Endocrine: Denies fatigue [facility] Past Medical History Attestation statement: The following information was validated with the patient. Medical History Smoking 1/2 pack a day or less Asthma-COPD overlap syndrome Acute maxillary sinusitis Otitis externa Hospital discharge follow-up Microscopic hematuria Physical exam Goiter Blurry vision Tobacco dependence Has daytime drowsiness Pulmonary nodules Moderate recurrent major depression Dyspnea Hand pain Skin lesion Leg pain, bilateral Dyslipidemia Epigastric pain Essential hypertension Cervical cancer screening GERD (gastroesophageal reflux disease) HTN (hypertension) Migraine Anxiety Depression Right lower quadrant pain Fibromyalgia Surgical History Previous section History of breast lump/mass excision History of lithotripsy H/O LEEP H/O tubal ligation Family History Family History Father Myocardial infarction Mother Lung cancer Brother Liver cancer Maternal Grandfather Stomach cancer Maternal Grandmother No problems noted. Social History Social History Housing: Apartment Alcohol intake: never Patient Tobacco Use Status: Current someday Tobacco user Tobacco use type: Cigarette Cigarette Packs Per Day: 0.25 Cigarettes Per Day: 3 Smoked in Last 30 Days: Yes e-Cigarette/Vaping Use: Never Used Second Hand Smoke Exposure: Yes Use of substances other than those prescribed or required for medical reasons: No Advance Directives: No Advance Directives Information Provided: No Do you have a plan to hurt others: No Plan service: No Current occupational status: disabled Gender identity: Female Cognitive needs: No Hearing needs: No Vision needs: No Physical Exam ED Vital Signs: Vital Signs - 24 hr 09/21/24 15:30 09/21/24 16:00 09/21/24 18:00 Temperature 98.4 F 97.8 F 97.3 F Pulse Rate 98 100 86 Respiratory Rate 18 16 16 Blood Pressure 106/76 114/82 122/79 Pulse Oximetry 97 98 Oxygen Delivery Method Room Air Room Air BMI result Body Mass Index 27.7 Const Other: Alert well-appearing Orientation/consciousness: patient oriented x3 HENMT Other: Bilateral TMs are opaque and dull, right tragal tenderness noted, overlying erythema over the right TM Resp Effort & Inspection: normal respiratory effort Cardio Other: Normal peripheral perfusion Skin Other: Warm dry no rash Neuro General: patient oriented x3, gait normal, no focal motor deficits and CN's II-XI intact bilaterally Psych Other: Cooperative Course Course Course Narrative: RME performed by Belle Mckeon PA-C. Patient is a 53 year old assigned female at presenting to the emergency department with dizziness, nausea, SOB, chest pain, and concerns of a sinus infection. Detailed physical exam and review of systems are deferred to the lasting machine operator hand method. EKG, labs, imaging and swabs ordered. Patient placed back in the waiting room pending room availability and results. Medical Decision Making Medical Decision Making MDM Narrative: 53-year-old female with a history of chronic sinus congestion, asthma/COPD overlap, allergic sinusitis, hypertension, hyperlipidemia, chronic pain, chronic migraine, fibromyalgia, anxiety with depression who presents with multiple complaints. Patient states her sinuses are congested and she has developed bilateral ear pain since yesterday. The right ear is more painful versus the left. Patient states she has concurrently dizzy with a headache. Denies fever. In addition, patient states she had an episode of left anterior chest discomfort, unable to describe the nature of her symptoms, however they were brief. Denies shortness of breath, diaphoresis, nausea, vomiting. Problem: Chronic pain, allergies, hypertension hyperlipidemia History: Per patient I have considered the following differential diagnoses: ACS, intracranial hemorrhage, sinus headache, sinusitis, labyrinthitis, CVA, serous otitis, otitis media, otitis externa Plan: In regard to the patient's congestion related complaint, she has chronic sinusitis that is allergy induced. Today, she is congested, there was evidence of otitis media on the right. We will treat with the amoxicillin. We will send with Flonase for her ongoing nasal and sinus congestion. On regard to the dizziness, this is likely induced by the fluid within the inner ear. She is neurologically intact she is not ataxic to suggest a posterior circulation CVA, she does not require a stroke workup. Patient had a brief episode of chest discomfort, sounds highly atypical, however she does have some risk factors for coronary artery disease. Screening labs including troponin EKG and chest x-ray were obtained. I have independently reviewed the following tests: Labs: No leukocytosis, not anemic, no electrolyte abnormality, troponin negative, viral panel negative EKG: Normal sinus rhythm, rate of 99, no active ischemic changes no ectopy Chest x-ray: IMPRESSION: 1. No acute findings. Lab Data 09/21/24 15:45 09/21/24 15:45 Labs: Lab Results 09/21/24 Range/Units 15:45 WBC 6.3 (4.8-10.8) X10*3/uL RBC 4.69 (4.20-5.50) X10*6/uL Hgb 12.6 (12.0-16.0) g/dl Hct 37.2 (37.0-47.0) % MCV 79.3 L (80.0-98.0) fL MCH 26.9 L (27.0-33.0) pg MCHC 33.9 (31.0-35.0) g/dl RDW 14.2 (11.0-16.0) % Plt Count 271 (160-400) X10*3/uL MPV 10.4 (9.4-12.3) fL Immature Gran % (Auto) 0.2 (0.0-0.4) % Neut % (Auto) 54.3 (45-73) % Lymph % (Auto) 35.0 (20-40) % [place] % (Auto) 6.8 (2-11) % Eos % (Auto) 2.7 (0-4) % Baso % (Auto) 1.0 (0-2) % Lymph # (Auto) 2.2 (1.2-4.9) X10*3/uL [place] # (Auto) 0.4 (0.1-1.2) X10*3/uL Eos # (Auto) 0.2 (0.0-0.4) X10*3/uL Baso # (Auto) 0.1 (0.0-0.2) X10*3/uL Abs Immat Gran (auto) 0.01 (0.00-0.03) X10*3/uL Absolute Neuts (auto) 3.4 (2.0-8.3) x10*3/uL Absolute Nucleated RBC 0.000 (0.0-0.012) X10*3/uL Nucleated RBC % (auto) 0.0 (0.0-0.2) /100WBC Sodium 143 (135-145) mmol/L Potassium 3.6 (3.3-5.1) mmol/L Chloride 108 (96-108) mmol/L Carbon Dioxide 24 (22-29) mmol/L Anion Gap 15 (12-20) BUN 18 H (9-16) mg/dL Creatinine 0.82 (0.5-1.4) mg/dL Estim Creat Clear Calc 67.6 Estimated GFR > 60 Random Glucose 126 H (60-115) mg/dL Calcium 9.3 (8.4-10.2) mg/dL Troponin I High Sens < 2.7 D (<3.5-17.0) ng/L Influenza Type A (PCR) NEGATIVE (Negative) Influenza Type B (PCR) NEGATIVE (Negative) RSV RNA Qual (PCR) NEGATIVE (Negative) SARS-CoV-2 RNA (RT-PCR) NEGATIVE (Negative) Discharge Plan Discharge Clinical Impression: Otitis media, right, Sinus congestion Patient Disposition: Home, Self-Care Instructions: Ear Infection (ED), Upper Respiratory Infection (ED) Additional Instructions: All of your screening labs including a cardiac enzymes were normal. The EKG did not reveal any concerning changes, the chest x-ray is clear. You were found to have a right-sided ear infection, with associated fluid in both ears, with sinus congestion. Take the amoxicillin as directed. Use the Flonase as needed for nasal and sinus congestion. You can also use [id number] Zyrtec daily for a month, to help further alleviate your sinus congestion. Follow up with primary care as needed. Prescriptions: New amoxicillin 500 mg tablet 500 mg PO Q12H Qty: 19 0RF fluticasone propionate [Flonase Allergy Relief] 50 mcg/actuation spray,suspension 1 spray intranasal BID PRN (Reason: nasal congestion) Qty: 16 0RF Rx Instructions: administer into each nostril No Action (DME) blood pressure monitor [Blood Pressure Kit] Kit See Rx Instructions .ROUTE .MEDSUPPLY Qty: 1 0RF Rx Instructions: As directed (DME) cane Device See Rx Instructions .Route Qty: 1 0RF Rx Instructions: As directed (DME) walker Misc See Rx Instructions .Route Qty: 1 0RF Rx Instructions: To be use lifetime (DME) underpads [Bed Underpads] Pad See Rx Instructions .Route Qty: 100 0RF Rx Instructions: As directed Combivent Respimat 20-100 mcg/actuation mist 1 puff PO QID 30 Days Qty: 25 1RF Patient Comments: Pulmo given loratadine 10 mg tablet 10 mg PO DAILY PRN (Reason: for allergies) 30 Days Qty: 30 1RF naloxone 10 mg/0.4 mL auto-injector 2 mg subcut Q3M 30 Days Qty: 4 0RF Rx Instructions: until desired response atorvastatin 20 mg tablet 20 mg PO BEDTIME 90 Days Qty: 90 1RF magnesium oxide 400 mg (241.3 mg magnesium) tablet 400 mg PO BEDTIME 30 Days Qty: 30 6RF Rx Instructions: may hold for loose stools riboflavin (vitamin B2) 400 mg tablet 400 mg PO DAILY 30 Days Qty: 30 6RF cholecalciferol (vitamin D3) 50 mcg (2,000 unit) tablet 50 mcg PO DAILY 90 Days Qty: 90 1RF clonazepam 0.5 mg tablet 0.5 mg PO BEDTIME PRN (Reason: anxiety) 30 Days Qty: 60 1RF albuterol sulfate 90 mcg/actuation HFA aerosol inhaler 2 puff inhalation Q4-6H PRN (Reason: shortness of breath or wheezing) Qty: 6.7 6RF venlafaxine 37.5 mg capsule,extended release 24hr 37.5 mg PO BEDTIME 90 Days Qty: 90 1RF tramadol 50 mg tablet 50 mg PO BID PRN (Reason: severe pain (scale score 7-10)) 30 Days Qty: 60 0RF acetaminophen 500 mg tablet 1,000 mg PO TID PRN (Reason: pain) Qty: 20 0RF lidocaine [Lidoderm] 5 % adhesive patch,medicated 1 patch topical DAILY Qty: 30 0RF Rx Instructions: leave on most painful area for up to 12 hrs diphenhydramine HCl 25 mg capsule 50 mg PO Q6H PRN (Reason: headache, nausea, vomiting) Qty: 20 0RF metoclopramide HCl [Reglan] 10 mg tablet 10 mg PO Q6H PRN (Reason: nausea and vomiting) Qty: 14 0RF Excedrin Extra Strength 250-250-65 mg tablet 2 tab PO Q6H PRN (Reason: headache) Qty: 20 0RF albuterol sulfate 2.5 mg/0.5 mL solution for nebulization 5 mg inhalation Q4H PRN (Reason: shortness of breath or wheezing) Qty: 30 0RF meclizine 12.5 mg tablet 12.5 mg PO TID PRN (Reason: dizziness) Qty: 14 0RF metoclopramide HCl [Reglan] 10 mg tablet 10 mg PO Q6H PRN (Reason: nausea and vomiting) Qty: 14 0RF fluticasone propionate [Flonase Allergy Relief] 50 mcg/actuation spray,suspension 2 spray intranasal Q12H 30 Days Qty: 16 0RF Rx Instructions: administer into each nostril ondansetron 4 mg tablet,disintegrating 4 mg PO Q6H PRN (Reason: nausea and vomiting) Qty: 20 6RF montelukast 10 mg tablet 10 mg PO DAILY 30 Days Qty: 30 11RF melatonin 10 mg capsule 10 mg PO BEDTIME PRN (Reason: sleep) Qty: 90 1RF Emgality Pen 120 mg/mL pen injector 240 mg subcut ONCE 30 Days Qty: 2 0RF Rx Instructions: Loading dose: 120 mg subcu injection x2 in alternate sites (total 240 mg). To be followed by maintenance dose of 120 mg subcu q.month. Nurtec ODT 75 mg tablet,disintegrating 75 mg PO ONCE MDD 1 tab PRN (Reason: migraine headache) 30 Days Qty: 16 6RF diphenhydramine HCl [Benadryl Allergy] 25 mg tablet 25 mg PO BEDTIME PRN (Reason: sleep) 15 Days Qty: 30 0RF Rx Instructions: may repeat once in 30-60 minutes if not effective montelukast [Singulair] 10 mg tablet 10 mg PO BEDTIME 30 Days Qty: 30 11RF varenicline tartrate [Chantix Starting Month Box] 0.5 mg (11)- 1 mg (42) tablets,dose pack See Rx Instructions PO PER PKG DIR Qty: 42 0RF Rx Instructions: PO PER PKG DIR fluocinolone acetonide oil [DermOtic Oil] 0.01 % drops 5 drp otic (ears) BID 7 Days Qty: 20 0RF (DME) nebulizers [AeroEclipse II Nebulizer] Misc See Rx Instructions .Route Qty: 1 0RF Rx Instructions: As directed albuterol sulfate 2.5 mg /3 mL (0.083 %) solution for nebulization 2.5 mg inhalation Q6H PRN (Reason: bronchospasm) 30 Days Qty: 360 0RF fenofibrate 54 mg tablet 54 mg PO DAILY 90 Days Qty: 90 1RF epinephrine [EpiPen 2-Pantera] 0.3 mg/0.3 mL auto-injector 0.3 mg IM Q10M PRN (Reason: anaphylaxis) Qty: 2 0RF Rx Instructions: for 3 doses hydroxyzine HCl 25 mg tablet 25 mg PO Q8H PRN (Reason: itching) Qty: 14 0RF hydrocortisone 2.5 % cream 1 appl topical BID PRN (Reason: Skin Irritation) Qty: 30 0RF Pataday Once Daily Relief 0.7 % drops 1 drp ophthalmic (eye) Q24H PRN (Reason: itching) Qty: 5 0RF Print Language: Romansh
[2024-09-21 15:53] LABS: Basophils Absolute Auto 0.1 X10*3/uL (0.0-0.2); Eosinophils Absolute Auto 0.2 X10*3/uL (0.0-0.4); Eosinophils Percent Auto 2.7 % (0-4); Hematocrit 37.2 % (37.0-47.0); Hemoglobin 12.6 g/dl (12.0-16.0); Imm Gran Abs Auto 0.01 X10*3/uL (0.00-0.03); Imm Gran Pct Auto 0.2 % (0.0-0.4); Lymphocytes Absolute Auto 2.2 X10*3/uL (1.2-4.9); Mean Corpuscular HGB Conc 33.9 g/dl (31.0-35.0); Mean Corpuscular Hemoglobin 26.9 pg (27.0-33.0); Mean Corpuscular Volume 79.3 fL (80.0-98.0); Mean Platelet Volume 10.4 fL (9.4-12.3); Monocytes Absolute Auto 0.4 X10*3/uL (0.1-1.2); Monocytes Percent Auto 6.8 % (2-11); Neutrophils Absolute Auto 3.4 x10*3/uL (2.0-8.3); Neutrophils Percent Auto 54.3 % (45-73); Platelet Count 271 X10*3/uL (160-400); Red Blood Count 4.69 X10*6/uL (4.20-5.50); Red Cell Distribution Width 14.2 % (11.0-16.0); White Blood Count 6.3 X10*3/uL (4.8-10.8)
[2024-09-21 16:00] VITALS: BP 114/82; PULSE 100; RESP 16; TEMP 36.6; O2SAT 98
[2024-09-21 16:19] LABS: Anion Gap 15 (12-20); Blood Urea Nitrogen 18 mg/dL (9-16); Calcium 9.3 mg/dL (8.4-10.2); Carbon Dioxide 24 mmol/L (22-29); Chloride 108 mmol/L (96-108); Creatinine Clr Calc Pharmacy 67.6; Estimated Glomerular Filt Rate > 60; Glucose Random 126 mg/dL (60-115); Potassium 3.6 mmol/L (3.3-5.1); Sodium 143 mmol/L (135-145)
[2024-09-21 16:31] LABS: Troponin-I High Sensitivity < 2.7 ng/L (<3.5-17.0)
[2024-09-21 16:32] LABS: Influenza A PCR NEGATIVE (Negative); Influenza B PCR NEGATIVE (Negative); Resp Syncy Virus RNA Qual PCR NEGATIVE (Negative); SARS COV2 PCR INHOUSE NEGATIVE (Negative)
[2024-09-21 18:00] VITALS: BP 122/79; PULSE 86; RESP 16; TEMP 36.3
[2024-09-21 19:24] VITALS: BP 156/89; PULSE 88; RESP 16; TEMP 36.6; O2SAT 97
[2024-09-21] MEDS: Amoxicillin 500 MG CAPSULE PO (19:32)
== END 2024-09-21 19:37 | disposition home or self-care (01) ==
PROVIDERS: Emergency Provider Internal Medicine; PCP Internal Medicine
DX: H66.91 Otitis media, unspecified, right ear (principal); R09.81 Nasal congestion; R51.9 Headache, unspecified; H92.03 Otalgia, bilateral; Z03.818 Encounter for observation for suspected exposure to other biological agents ruled out; I10 Essential (primary) hypertension; E78.5 Hyperlipidemia, unspecified; J45.909 Unspecified asthma, uncomplicated; Z79.82 Long term (current) use of aspirin; Z79.899 Other long term (current) drug therapy
CPT/HCPCS: 0241U; 36415; 71046; 80048; 84484; 85025; 93005; 99283; 99284

== ENCOUNTER → 2024-09-21 15:38 | Outpatient (BNV) | payer OTHER, SELFPAY | PROVIDERS: Emergency Provider Internal Medicine; PCP Internal Medicine; Visit Provider Internal Medicine Cardiovascular Disease | DX: R94.31 Abnormal electrocardiogram [ECG] [EKG] (principal); R07.9 Chest pain, unspecified | CPT/HCPCS: 93010 ==

== ENCOUNTER → 2024-09-21 15:52 | Outpatient (BNV) | payer OTHER, SELFPAY | PROVIDERS: PCP Internal Medicine; Visit Provider Radiology Diagnostic Radiology | DX: R06.02 Shortness of breath (principal) | CPT/HCPCS: 71046 ==

== ENCOUNTER 2024-09-29 17:00 | Outpatient (AMB) | payer OTHER, SELFPAY ==
[2024-09-29 17:09] VITALS: BP 130/80; BMI 27.6
--- NOTE | 2024-09-29 17:09 | A.OFFPC_ITS ---
Vital Signs 09/29/24 17:09 Height 5 ft 1 in Weight 146 lb BMI 27.6 BP 130/80 Blood Pressure Location Lt brachial Position Sitting Intake Visit Reasons: PE Intake Note: Patient here for a physical exam Registered Pharmacy Technician Required: No Accompanied by: Self / Same As Patient Allergies amitriptyline Allergy (Intermediate, Verified 09/29/24 17:17) headache ibuprofen [From Motrin] Allergy (Intermediate, Verified 09/29/24 17:17) ITCHY RASH gabapentin Adverse Reaction (Intermediate, Verified 09/29/24 17:17) vomiting Medication List - Last Reconciled 09/29/24 by Neyda Peres MD acetaminophen 1,000 mg (2 x 500 mg) PO TID PRN albuterol sulfate 5 mg inhalation Q4H PRN albuterol sulfate 90 mcg/actuation 2 puffs inhalation Q4-6H PRN albuterol sulfate 2.5 mg (3 mL) inhalation Q6H PRN 30 days amoxicillin 500 mg PO Q12H [id number] 250-250-65 mg (Excedrin Extra Strength) 2 tabs PO Q6H PRN atorvastatin 20 mg PO BEDTIME 90 days blood pressure monitor (Blood Pressure Kit) As directed cane As directed cholecalciferol (vitamin D3) 50 mcg PO DAILY 90 days clonazepam 0.5 mg PO BEDTIME PRN 30 days diphenhydramine HCl 50 mg (2 x 25 mg) PO Q6H PRN diphenhydramine HCl (Benadryl Allergy) 25 mg PO BEDTIME PRN 15 days epinephrine (EpiPen 2-Pantera) 0.3 mg (0.3 mL) IM Q10M PRN fenofibrate 54 mg PO DAILY 90 days fluocinolone acetonide oil 0.01% (DermOtic Oil) 5 drps otic (ears) BID 7 days fluticasone propionate 50 mcg/actuation (Flonase Allergy Relief) 1 spray intranasal BID PRN fluticasone propionate 50 mcg/actuation (Flonase Allergy Relief) 2 sprays intranasal Q12H 30 days galcanezumab-gnlm (Emgality Pen) 240 mg (2 mL) subcut ONCE 30 days hydrocortisone 2.5% 1 appl topical BID PRN hydroxyzine HCl 25 mg PO Q8H PRN ipratropium-albuterol 20-100 mcg/actuation (Combivent Respimat) 1 puff PO QID 30 days lidocaine 5% (Lidoderm) 1 patch topical DAILY loratadine 10 mg PO DAILY PRN 30 days magnesium oxide 400 mg PO BEDTIME 30 days meclizine 12.5 mg PO TID PRN melatonin 10 mg PO BEDTIME PRN metoclopramide HCl (Reglan) 10 mg PO Q6H PRN metoclopramide HCl (Reglan) 10 mg PO Q6H PRN montelukast 10 mg PO DAILY 30 days montelukast (Singulair) 10 mg PO BEDTIME 30 days naloxone 2 mg (0.08 mL) subcut Q3M 30 days nebulizers (AeroEclipse II Nebulizer) As directed olopatadine 0.7% (Pataday Once Daily Relief) 1 drp ophthalmic (eye) Q24H PRN ondansetron 4 mg PO Q6H PRN riboflavin (vitamin B2) 400 mg PO DAILY 30 days rimegepant (Nurtec ODT) 75 mg PO ONCE PRN 30 days MDD 1 tab tramadol 50 mg PO BID PRN 30 days underpads (Bed Underpads) As directed varenicline tartrate (Chantix Starting Month Box) PO PER PKG DIR venlafaxine ER 37.5 mg PO BEDTIME 90 days walker To be use lifetime Tobacco use date assessed: 06/26/24 Dental Screening Dental Screen Date: 06/26/24 HPI HPI Comments History of Present Illness Details The patient is a 53-year-old female presenting for an annual physical examination and discussing several health issues. Notably, there is a left breast mass that has not been previously assessed. She is managing anxiety without current therapy, but reports feeling unwell due to anxiety recently. Her lipid management includes fenofibrate for dyslipidemia, with a lack of recent cholesterol evaluations. In terms of migraine management, the patient was initially unable to administer Engality properly due to work constraints but has since received guidance in its administration. The patient reports discontinuation of melatonin use for insomnia due to dissatisfaction with its effects. She has experienced vertigo symptoms during a recent sinus infection, treated with amoxicillin, which resolved with medication. Additionally, the patient notes melasma and follows skin protection advice, while also highlighting nicotine use with smoking cessation as a future goal. - Upcoming mammography scheduled - Pap smear completed last year with nor mal results - Encouraged sun protection to manage me lasma - Recommended colonoscopy for colorectal cancer screening - Advised smoking cessation [facility] Medical History (Updated 09/29/24 @ 17:35 by Neyda Peres MD) Smoking 1/2 pack a day or less Asthma-COPD overlap syndrome Acute maxillary sinusitis Otitis externa Hospital discharge follow-up Microscopic hematuria Physical exam Goiter Blurry vision Tobacco dependence Has daytime drowsiness Pulmonary nodules Moderate recurrent major depression Dyspnea Hand pain Skin lesion Leg pain, bilateral Dyslipidemia Epigastric pain Essential hypertension Cervical cancer screening GERD (gastroesophageal reflux disease) HTN (hypertension) Migraine Anxiety Depression Right lower quadrant pain Fibromyalgia Surgical History Previous section History of breast lump/mass excision History of lithotripsy H/O LEEP H/O tubal ligation Family History Father Myocardial infarction Mother Lung cancer Brother Liver cancer Maternal Grandfather Stomach cancer Maternal Grandmother No problems noted. Social History Housing: Apartment Alcohol intake: never Patient Tobacco Use Status: Current someday Tobacco user Tobacco use type: Cigarette Cigarette Packs Per Day: 0.25 Cigarettes Per Day: 3 e-Cigarette/Vaping Use: Never Used Second Hand Smoke Exposure: Yes service: No Current occupational status: disabled Gender identity: Female Cognitive needs: No Hearing needs: No Vision needs: No Female Reproductive History Menstrual Age of Menarche: 9 Questionnaire Thrive Questionnaire Date Thrive assessed: 06/26/24 JOHN-7 AMB Questionnaire JOHN-7 Date JOHN - 7 assessed: 06/26/24 Source: Developed by Drs. Sylvester Merlos, Eve Mcclelland, Joby King and colleagues, with an educational pili from [employer]. Review of Systems Const All systems reviewed & are unremarkable except as noted in HPI and below Card Denies chest pain at rest, Denies chest pain with activity, Denies edema, Denies irregular heart rhythm, Denies claudication, Denies dyspnea, Denies dyspnea on exertion, Denies orthopnea, Denies paroxysmal nocturnal dyspnea and Denies slow heart rate Resp Denies cough, Denies dyspnea and Denies dyspnea on exertion GI Denies abdominal pain, Denies change in bowel habits, Denies excessive flatus, Denies nausea and Denies vomiting Denies urinary incontinence, Denies urinary hesitancy and Denies urinary urgency Musc Denies abnormal gait, Denies atrophy, Denies deformity and Denies limited range of motion Skin/Breast Denies bleeding lesions, Denies changing lesions and Denies rash Neuro Denies abnormal gait and Denies lack of coordination Physical exam (Primary Care) Vital Signs: Last Vital Signs BP 130/80 09/29/24 17:09 BMI result Body Mass Index 27.6 Tobacco/Smoking Status: Tobacco use Status Tobacco use date assessed 06/26/24 09/29/24 17:09 Patient Tobacco Use Status Current someday Tobacco 09/29/24 17:09 Tobacco use type Cigarette 09/29/24 17:09 e-Cigarette/Vaping Use Never Used 09/29/24 17:09 Thrive Assessment: Date of Thrive Assessment Date Thrive assessed 06/26/24 09/29/24 17:09 HENTX Head: Yes normal to inspection, Yes normocephalic and Yes atraumatic Ears: external ears normal Eyes General: appearance normal, both eyes and all related structures Eyelids: Yes eyelids normal Conjunctivae: conjunctivae normal Neck Neck: Yes normal visual inspection and Yes supple Resp Effort & Inspection: normal respiratory effort Auscultation: clear to auscultation bilaterally Cardio Jugular venous distension: no JVD Rate: regular rate Rhythm: regular rhythm Heart sounds: S1 normal heart sound present and S2 normal heart sound present GI Inspection: Yes normal to inspection Palpation (GI): Soft to palpation and nontender Auscultation: normal bowel sounds Skin General skin exam: no rashes or lesions noted Neuro General: no focal motor deficits Extrem General: Yes full ROM Psych Appearance: grossly normal Coding Level of Care Code Est Pt Level 4 (29002) Est Pt Prev Care 40-64y(42715) Diagnoses Physical exam Z00.00 Skin lesion L98.9 Insomnia G47.00 Generalized abdominal pain R10.84 Abdominal location: generalized Mild tramadol use disorder F11.10 Time Spent (min) 39 Assessment & Plan Assessment & Plan (1) Physical exam: Code(s): Z00.00 - Encounter for general adult medical examination without abnormal findings Category: Medical (2) Skin lesion: Code(s): L98.9 - Disorder of the skin and subcutaneous tissue, unspecified Category: Medical (3) Insomnia: Code(s): G47.00 - Insomnia, unspecified Category: Medical (4) Abdominal pain: Code(s): R10.9 - Unspecified abdominal pain Category: Medical Qualifiers: Abdominal location: generalized Qualified Code(s): R10.84 - Generalized abdominal pain (5) Mild tramadol use disorder: Comment: Pain management contract signed 01/03/2024 and urine toxicology done. Code(s): F11.10 - Opioid abuse, uncomplicated Category: Medical Plan I will schedule a mammogram to evaluate the left breast mass further. The patient will be encouraged to commence therapy to help manage anxiety. It's imperative to perform lipid profile tests soon to reassess her dyslipidemia status. The patient's migraines seem to be better controlled with Engality injections, and we will continue this treatment while also assessing electrolyte levels if dizziness persists. As melatonin has been ineffective, I will explore other sleep aids. The previous diagnosis of vertigo requires no active intervention currently as it correlates with resolved sinus infection. She is advised to continue sun protection for melasma and ponder a smoking cessation strategy. Patient was informed and verbally consented to the use of an ambient scribe for clinic note documentation during this visit. I discussed the need for a mammogram to investigate the left breast mass. I advised considering psychotherapy to help alleviate anxiety symptoms. We went over the importance of following up on cholesterol levels in light of her hist ory of dyslipidemia and discussed proper usage instructions for Engality injections to manage migraines. For insomnia, we talked about alternatives to melatonin. I explained how her symptoms are consistent with benign positional vertigo resolving with sinus infection, emphasizing the importance of completing her prescription of amoxicillin. I elaborated the necessity of continual sun protection for melasma and the importance of screening colonoscopy. Orders: Orders Lipid Panel Today E78.5 - Hyperlipidemia, unspecified IRON PROFILE Today D64.9 - Anemia, unspecified Vitamin B12 and Folate Today E53.8 - Deficiency of other specified B group vitamins MM tomosynthesis screening BI Today Z12.31 - Encounter for screening mammogram for malignant neoplasm of breast US abdomen garcia w elastography Today R10.9 - Unspecified abdominal pain Complete Blood Count Auto Diff Today D64.9 - Anemia, unspecified Vitamin D 25-OH Total Today E55.9 - Vitamin D deficiency, unspecified Comprehensive [place]. Panel Fast Today J44.89 - Other specified chronic obstructive pulmonary disease Referrals Gastroenterology Referral R10.9 - Unspecified abdominal pain Ear/Nose/Throat Referral H92.09 - Otalgia, unspecified ear Dermatology Referral L98.9 - Disorder of the skin and subcutaneous tissue, unspecified Ophthalmology Referral H53.8 - Other visual disturbances Patient Instructions: - Obtain mammogram as scheduled - Engage in therapy sessions to manage anxiety - Follow dietary advice to manage cholesterol, plan upcoming lab work - Continue with Engality injections for migraines - Consider alternative sleep aides; discontinue melatonin - Complete the course of amoxicillin for sinus infection - Employ sun protection for skin health - Work towards smoking cessation - Attend screening colonoscopy appointment
== END 2024-09-29 17:33 | disposition home or self-care (01) ==
LOC: HO.HMCH 17:00
PROVIDERS: PCP Internal Medicine; Visit Provider Internal Medicine
DX: Z00.00 Encounter for general adult medical examination without abnormal findings (principal); G47.00 Insomnia, unspecified; F11.10 Opioid abuse, uncomplicated; L98.9 Disorder of the skin and subcutaneous tissue, unspecified; R10.84 Generalized abdominal pain

== ENCOUNTER → 2024-09-29 17:00 | Outpatient (BNVA) | payer OTHER, SELFPAY | PROVIDERS: PCP Internal Medicine; Visit Provider Internal Medicine | DX: Z00.01 Encounter for general adult medical examination with abnormal findings (principal); L98.9 Disorder of the skin and subcutaneous tissue, unspecified; G47.00 Insomnia, unspecified; R10.84 Generalized abdominal pain; F11.10 Opioid abuse, uncomplicated; E78.5 Hyperlipidemia, unspecified; I10 Essential (primary) hypertension; F17.200 Nicotine dependence, unspecified, uncomplicated; Z71.6 Tobacco abuse counseling | CPT/HCPCS: 99212; 99396 ==

== ENCOUNTER 2024-10-03 05:37 | Emergency (ER) | payer OTHER, SELFPAY ==
--- NOTE | ~2024-10-03 | XR_ITS ---
EXAMINATION: XR CHEST 2 VIEWS HISTORY: cp, sob COMPARISON: Comparison is made with the prior examination dated 09/21/2024. FINDINGS: PA and lateral views of the chest are submitted. Again seen is a calcified granuloma in the right upper lobe. The lungs are otherwise clear. There is no pleural effusion, pneumothorax, or pulmonary vascular congestion. The heart is normal in size. The bones are intact. XR/XR chest 2V IMPRESSION: No acute cardiopulmonary abnormality. Electronically signed by: Sylvester Cavanaugh MD 10/03/2024 10:06 AM EDT
[2024-10-03 05:39] VITALS: BP 175/97; PULSE 81; RESP 16; TEMP 36.5; O2SAT 100; BMI 27.8
[2024-10-03 07:14] LABS: Influenza A PCR NEGATIVE (Negative); Influenza B PCR NEGATIVE (Negative); Resp Syncy Virus RNA Qual PCR NEGATIVE (Negative); SARS COV2 PCR INHOUSE NEGATIVE (Negative)
--- NOTE | 2024-10-03 08:41 | ECG_ITS ---
Test Reason : headache Blood Pressure : */* mmHG Vent. Rate : 77 BPM Atrial Rate : 77 BPM P-R Int : 172 ms QRS Dur : 76 ms QT Int : 410 ms P-R-T Axes : 49 16 2 degrees QTcB Int : 463 ms Normal sinus rhythm Normal ECG When compared with ECG of 21-Sep-2024 15:38, Nonspecific T wave abnormality no longer evident in Lateral leads Referred By: Crissy Yang Electronically Signed By: MARILU MANN MD
[2024-10-03 08:58] VITALS: PULSE 81; RESP 16; O2SAT 99
[2024-10-03] MEDS: Albuterol Sulfate 2.5 MG, Albuterol/Iprat 2.5/0.5MG 3 ML 3 ML INHALE (08:58)
[2024-10-03 09:16] LABS: MANUAL DIFF FLAG NO
[2024-10-03] MEDS: 0.9 % Sodium Chloride 1,000 ML 999 ML IV (09:16)
[2024-10-03 09:18] LABS: Basophils Absolute Auto 0.1 X10*3/uL (0.0-0.2); Basophils Percent Auto 0.7 % (0-2); Eosinophils Absolute Auto 0.2 X10*3/uL (0.0-0.4); Eosinophils Percent Auto 2.6 % (0-4); Hematocrit 35.8 % (37.0-47.0); Hemoglobin 11.8 g/dl (12.0-16.0); Imm Gran Abs Auto 0.01 X10*3/uL (0.00-0.03); Imm Gran Pct Auto 0.1 % (0.0-0.4); Lymphocytes Absolute Auto 2.9 X10*3/uL (1.2-4.9); Lymphocytes Percent Auto 42.5 % (20-40); Mean Corpuscular Hemoglobin 26.9 pg (27.0-33.0); Mean Corpuscular Volume 81.7 fL (80.0-98.0); Mean Platelet Volume 10.4 fL (9.4-12.3); Monocytes Absolute Auto 0.5 X10*3/uL (0.1-1.2); Monocytes Percent Auto 6.6 % (2-11); Neutrophils Absolute Auto 3.3 x10*3/uL (2.0-8.3); Neutrophils Percent Auto 47.5 % (45-73); Platelet Count 256 X10*3/uL (160-400); Red Blood Count 4.38 X10*6/uL (4.20-5.50); Red Cell Distribution Width 13.5 % (11.0-16.0); White Blood Count 6.9 X10*3/uL (4.8-10.8)
[2024-10-03 09:40] LABS: Alanine Aminotransferase 17 U/L (0-31); Albumin Level 3.9 g/dL (3.5-5.0); Alkaline Phosphatase 110 U/L (39-117); Anion Gap 13 (12-20); Aspartate Amino Transferase 22 U/L (5-31); Bilirubin Direct 0.1 mg/dL (0.0-0.5); Bilirubin Total 0.4 mg/dL (0.0-1.0); Blood Urea Nitrogen 15 mg/dL (9-16); Calcium 9.1 mg/dL (8.4-10.2); Carbon Dioxide 28 mmol/L (22-29); Chloride 105 mmol/L (96-108); Creatinine Clr Calc Pharmacy 75.1; Estimated Glomerular Filt Rate > 60; Glucose Random 105 mg/dL (60-115); Lipase 26 U/L (8-78); Magnesium 1.8 mg/dL (1.6-2.6); Potassium 3.2 mmol/L (3.3-5.1); Sodium 143 mmol/L (135-145)
[2024-10-03 09:42] LABS: Troponin-I High Sensitivity < 2.7 ng/L (<3.5-17.0)
--- NOTE | 2024-10-03 09:43 | ED.GENADULT ---
HPI - General Adult General Chief complaint: General Medical Stated complaint: headache , right ear pain Time Seen by Provider: 10/03/24 08:02 Source: patient, RN notes reviewed and old records reviewed Mode of arrival: ambulatory History of Present Illness ED Provider: Crissy Yang PA-C HPI narrative: 53-year-old female with a past medical history of asthma/COPD overlap syndrome, HLD, HTN, GERD, anxiety, depression, fibromyalgia, presenting to the ED complaining of headache, right ear pain, lightheadedness, nausea, SOB, chest pain x last night. Admits to taking Tylenol at 04:30AM without relief. Reports history of chronic headaches, states this one is stronger than typical, not maximal at onset. Also reports chills. Denies fever, cough, abdominal pain, vomiting, diarrhea, pedal edema, travel, sick contacts, vision change or loss Related Data Previous Rx's ?Medication ?Instructions ?Recorded blood pressure monitor (Blood #1 ea 09/06/22 Pressure Kit) cane #1 ea 09/06/22 acetaminophen 500 mg tablet 1,000 mg (2 x 500 mg) PO TID PRN 10/07/22 pain #20 tabs underpads (Bed Underpads) #100 ea 03/28/23 walker #1 ea 03/28/23 ipratropium 20 mcg-albuterol 100 1 puff PO QID 30 days #25 mL 10/18/23 mcg/actuation mist for inhalation (Combivent Respimat) albuterol sulfate 2.5 mg/0.5 mL 5 mg inhalation Q4H PRN shortness 11/12/23 solution for nebulization of breath or wheezing #30 ea meclizine 12.5 mg tablet 12.5 mg PO TID PRN dizziness #14 11/21/23 tabs loratadine 10 mg tablet 10 mg PO DAILY PRN for allergies 12/01/23 30 days #30 tabs lidocaine 5 % topical patch 1 patch topical DAILY #30 ea 01/05/24 (Lidoderm) naloxone 10 mg/0.4 mL 2 mg (0.08 mL) subcut Q3M 30 days 01/09/24 injection,auto-injector #4 mL fluticasone propionate 50 2 spray intranasal Q12H 30 days 02/27/24 mcg/actuation nasal #16 grams spray,suspension (Flonase Allergy Relief) albuterol sulfate 2.5 mg/3 mL 2.5 mg (3 mL) inhalation Q6H PRN 04/03/24 (0.083 %) solution for nebulization bronchospasm 30 days #360 mL fluocinolone acetonide oil 0.01 % 5 drp otic (ears) BID 7 days #20 mL 04/03/24 ear drops (DermOtic Oil) nebulizers (AeroEclipse II #1 ea 04/03/24 Nebulizer) magnesium oxide 400 mg (241.3 mg 400 mg PO BEDTIME 30 days #30 tabs 04/16/24 magnesium) tablet riboflavin (vitamin B2) 400 mg 400 mg PO DAILY 30 days #30 tabs 04/16/24 tablet ondansetron 4 mg disintegrating 4 mg PO Q6H PRN nausea and 04/21/24 tablet vomiting #20 tabs montelukast 10 mg tablet 10 mg PO BEDTIME 30 days #30 tabs 04/22/24 (Singulair) varenicline tartrate 0.5 mg (11)-1 See Rx Instructions PO PER PKG DIR 04/22/24 mg (42) tablets in a dose pack #42 ea (Chantix Starting Month Box) cholecalciferol (vitamin D3) 50 50 mcg PO DAILY 90 days #90 tabs 04/24/24 mcg (2,000 unit) tablet metoclopramide HCl 10 mg tablet 10 mg PO Q6H PRN nausea and 04/30/24 (Reglan) vomiting #14 tabs fenofibrate 54 mg tablet 54 mg PO DAILY 90 days #90 tabs 05/07/24 montelukast 10 mg tablet 10 mg PO DAILY 30 days #30 tabs 06/16/24 diphenhydramine HCl 25 mg tablet 25 mg PO BEDTIME PRN sleep 15 days 06/26/24 (Benadryl Allergy) #30 tabs galcanezumab-gnlm 120 mg/mL 240 mg (2 mL) subcut ONCE 30 days 06/26/24 subcutaneous pen injector #2 mL (Emgality Pen) melatonin 10 mg capsule 10 mg PO BEDTIME PRN sleep #90 caps 06/26/24 rimegepant 75 mg disintegrating 75 mg PO ONCE PRN migraine 06/26/24 tablet (Nurtec ODT) headache 30 days #16 tabs clonazepam 0.5 mg tablet 0.5 mg PO BEDTIME PRN anxiety 30 07/09/24 days #60 tabs albuterol sulfate 90 mcg/actuation 2 puff inhalation Q4-6H PRN 07/16/24 aerosol inhaler shortness of breath or wheezing #6.7 grams venlafaxine 37.5 mg 37.5 mg PO BEDTIME 90 days #90 caps 08/06/24 capsule,extended release 24 hr epinephrine 0.3 mg/0.3 mL 0.3 mg (0.3 mL) IM Q10M PRN 08/11/24 injection, auto-injector (EpiPen anaphylaxis #2 ea 2-Pantera) hydrocortisone 2.5 % topical cream 1 appl topical BID PRN Skin 08/11/24 Irritation #30 grams hydroxyzine HCl 25 mg tablet 25 mg PO Q8H PRN itching #14 tabs 08/11/24 olopatadine 0.7 % eye drops 1 drp ophthalmic (eye) Q24H PRN 08/11/24 (Pataday Once Daily Relief) itching #5 mL mmecayc-racmbemrmszjk-mnfwkpfx 250 2 tab PO Q6H PRN headache #20 tabs 09/18/24 mg-250 mg-65 mg tablet (Excedrin Extra Strength) diphenhydramine HCl 25 mg capsule 50 mg (2 x 25 mg) PO Q6H PRN 09/18/24 headache, nausea, vomiting #20 caps metoclopramide HCl 10 mg tablet 10 mg PO Q6H PRN nausea and 09/18/24 (Reglan) vomiting #14 tabs amoxicillin 500 mg tablet 500 mg PO Q12H #19 tabs 09/21/24 fluticasone propionate 50 1 spray intranasal BID PRN nasal 09/21/24 mcg/actuation nasal congestion #16 grams spray,suspension (Flonase Allergy Relief) atorvastatin 20 mg tablet 20 mg PO BEDTIME 90 days #90 tabs 09/22/24 tramadol 50 mg tablet 50 mg PO BID PRN severe pain 09/26/24 (scale score 7-10) 30 days #60 tabs albuterol sulfate 90 mcg/actuation 2 puff inhalation Q4-6H PRN 10/03/24 aerosol inhaler shortness of breath or wheezing #6.7 grams vlsbqxhwjh-ribkypljbwgik-ytsvmckq 1 cap PO Q4-6H PRN headache #14 10/03/24 50 mg-300 mg-40 mg capsule caps (Fioricet) Allergies Allergy/AdvReac Type Severity Reaction Status Date / Time amitriptyline Allergy Intermediate headache Verified 10/03/24 05:43 ibuprofen [From Motrin] Allergy Intermediate ITCHY RASH Verified 10/03/24 05:43 gabapentin AdvReac Intermediate vomiting Verified 10/03/24 05:43 Review of Systems Review of Systems: Yes all other systems are reviewed and are negative Constitutional: Constitutional: Reports as per HPI Neurologic: Denies Abnormal speech present [facility] Past Medical History Attestation statement: The following information was validated with the patient. Source: old records reviewed Medical History Smoking 1/2 pack a day or less Asthma-COPD overlap syndrome Acute maxillary sinusitis Otitis externa Hospital discharge follow-up Microscopic hematuria Physical exam Goiter Blurry vision Tobacco dependence Has daytime drowsiness Pulmonary nodules Moderate recurrent major depression Dyspnea Hand pain Skin lesion Leg pain, bilateral Dyslipidemia Epigastric pain Essential hypertension Cervical cancer screening GERD (gastroesophageal reflux disease) HTN (hypertension) Migraine Anxiety Depression Right lower quadrant pain Fibromyalgia Surgical History Previous section History of breast lump/mass excision History of lithotripsy H/O LEEP H/O tubal ligation Family History Family History Father Myocardial infarction Mother Lung cancer Brother Liver cancer Maternal Grandfather Stomach cancer Maternal Grandmother No problems noted. Social History Social History Housing: Apartment Alcohol intake: never Patient Tobacco Use Status: Current someday Tobacco user Tobacco use type: Cigarette Cigarette Packs Per Day: 0.25 Cigarettes Per Day: 3 e-Cigarette/Vaping Use: Never Used Second Hand Smoke Exposure: Yes service: No Current occupational status: disabled Gender identity: Female Cognitive needs: No Hearing needs: No Vision needs: No Physical Exam ED Vital Signs: Vital Signs - 24 hr 10/03/24 05:39 10/03/24 08:58 10/03/24 12:26 Temperature 97.7 F 97.2 F Pulse Rate 81 81 72 Respiratory Rate 16 16 16 Blood Pressure 175/97 H 133/86 Pulse Oximetry 100 100 Oxygen Delivery Method Room Air Room Air BMI result Body Mass Index 27.8 Const General: cooperative, healthy appearing and no acute distress Orientation/consciousness: patient oriented x3 Limitations: no limitations HENMT Head: Yes normal to inspection and Yes atraumatic Ears: hearing grossly normal bilaterally, external ears normal, TM's normal bilaterally and mastoids normal General nose exam: Normal external nose present Face and sinus: Yes normal facial exam Mouth: Normal oral and palatal mucosa present and no drooling Throat: Yes posterior oropharynx normal, Yes tonsils normal, Yes uvula midline, No peritonsillar mass, No uvula laterally displaced and No uvular edema Eyes General: appearance normal, both eyes and all related structures Pupils: Equal, round and reactive pupils present EOM: EOMs intact bilaterally Neck Neck: Yes normal visual inspection and Yes no meningeal signs Chest Other: + anterior chest wall reproducible tenderness. No rash/erythema or ecchymosis Chest palpation & inspection: normal inspection of the chest and no crepitus Resp Effort & Inspection: normal respiratory effort and no respiratory distress Auscultation: wheezes expiratory wheezes and throughout Cardio Rate: regular rate Heart sounds: S1 normal heart sound present and S2 normal heart sound present GI Inspection: Yes normal to inspection Palpation (GI): Soft to palpation, nontender, no guarding and not rigid General: Yes no CVA tenderness Back/Spine/Pelvis Back: no CVA tenderness Skin Rashes: no rashes Wounds: no wounds Neuro General: patient oriented x3, tone normal, moves all extremities, no meningeal signs, no focal motor deficits and CN's II-XI intact bilaterally Cranial nerves: Yes CN's II-XII intact bilaterally, Yes Equal, round and reactive pupils present and Yes Bilaterally intact EOM present Cognition (Neuro): normal cognition Speech: No Abnormal speech present Gait exam (Neuro): Normal gait present Motor exam (neuro): 5/5 motor strength present throughout and no tremor noted Extrem General: Yes normal to inspection Course Course Course Narrative: -[id number]--potassium mildly low at 3.2 > p.o. repletion ordered. Labs otherwise reassuring, troponin negative -viral testing negative -UA negative XR chest 2V IMPRESSION: No acute cardiopulmonary abnormality. > on re-eval lungs CTA. Results discussed with patient including worrisome signs and symptoms and strict return precautions, and when to return to the emergency department. They verbalized understanding and feel safe for discharge at this time. Medications Administered Discontinued Medications Generic Name Dose Route Start Last Admin Trade Name Horacio PRN Reason Stop Dose Admin Acetaminophen/Butalbital/Caffeine 1 tab 10/03/24 09:46 10/03/24 10:23 Butalb/Acetamin/Caff 50/325/40 Tablet PO 10/03/24 09:47 1 tab ONCE ONE Administration Albuterol Sulfate 2.5 mg/ 0 mg 10/03/24 08:52 10/03/24 08:58 Albuterol/Ipratropium 3 ml INHALE 10/03/24 08:53 1 dose ONCE ONE Administration Sodium Chloride 1,000 mls @ 999 mls/hr 10/03/24 08:45 10/03/24 11:27 Ns IV 10/03/24 09:45 Infused .Q1H1M ANDREW Infusion Potassium Chloride 40 meq 10/03/24 09:52 10/03/24 10:23 Potassium Chloride Packet 20 Meq Packet PO 10/03/24 09:53 40 meq ONCE ONE Administration Medical Decision Making Medical Decision Making MDM Narrative: 53-year-old female with a past medical history of asthma/COPD overlap syndrome, HLD, HTN, GERD, anxiety, depression, fibromyalgia, presenting to the ED complaining of headache, right ear pain, lightheadedness, nausea, SOB, chest pain x last night. Admits to taking Tylenol at 04:30AM without relief. On exam vital signs stable, NAD, nontoxic appearing, no focal neuro deficits, expiratory wheeze appreciated, reproducible chest wall tenderness noted. TMs WNL, mastoids WNL. Concern for viral illness vs migraine headache vs asthma/COPD exacerbation. Rule out pneumonia/bronchitis. Lower suspicion for acute ACS with chest pain being reproducible. Unlikely dissection, PE/DVT. Low suspicion for meningitis/encephalitis or ICH Plan: EKG, labs, UA, CXR, viral testing, pain management, re-evaluate Please refer to course for remaining clinical decision making, interpretation of labs/imaging results, and discussions with consultants and/or family members. Differential Diagnosis Differential Diagnoses: The differential diagnosis associated with the presentation includes As above Admission/Observation Consideration of admission/observation: Escalation of care including admission/observation considered Lab Data MDM Lab Attestation statement: I reviewed the patient's lab results. 10/03/24 09:12 10/03/24 09:12 Labs: Lab Results 10/03/24 10/03/24 10/03/24 Range/Units 06:27 09:12 11:05 WBC 6.9 (4.8-10.8) X10*3/uL RBC 4.38 (4.20-5.50) X10*6/uL Hgb 11.8 L (12.0-16.0) g/dl Hct 35.8 L (37.0-47.0) % MCV 81.7 (80.0-98.0) fL MCH 26.9 L (27.0-33.0) pg MCHC 33.0 (31.0-35.0) g/dl RDW 13.5 (11.0-16.0) % Plt Count 256 (160-400) X10*3/uL MPV 10.4 (9.4-12.3) fL Immature Gran % (Auto) 0.1 (0.0-0.4) % Neut % (Auto) 47.5 (45-73) % Lymph % (Auto) 42.5 H (20-40) % Armstrong % (Auto) 6.6 (2-11) % Eos % (Auto) 2.6 (0-4) % Baso % (Auto) 0.7 (0-2) % Lymph # (Auto) 2.9 (1.2-4.9) X10*3/uL Armstrong # (Auto) 0.5 (0.1-1.2) X10*3/uL Eos # (Auto) 0.2 (0.0-0.4) X10*3/uL Baso # (Auto) 0.1 (0.0-0.2) X10*3/uL Abs Immat Gran (auto) 0.01 (0.00-0.03) X10*3/uL Absolute Neuts (auto) 3.3 (2.0-8.3) x10*3/uL Absolute Nucleated RBC 0.000 (0.0-0.012) X10*3/uL Nucleated RBC % (auto) 0.0 (0.0-0.2) /100WBC Sodium 143 (135-145) mmol/L Potassium 3.2 L (3.3-5.1) mmol/L Chloride 105 (96-108) mmol/L Carbon Dioxide 28 (22-29) mmol/L Anion Gap 13 (12-20) BUN 15 (9-16) mg/dL Creatinine 0.74 (0.5-1.4) mg/dL Estim Creat Clear Calc 75.1 Estimated GFR > 60 Random Glucose 105 (60-115) mg/dL Calcium 9.1 (8.4-10.2) mg/dL Magnesium 1.8 (1.6-2.6) mg/dL Total Bilirubin 0.4 (0.0-1.0) mg/dL Direct Bilirubin 0.1 (0.0-0.5) mg/dL AST 22 (5-31) U/L ALT 17 (0-31) U/L Alkaline Phosphatase 110 (39-117) U/L Troponin I High Sens < 2.7 (<3.5-17.0) ng/L Total Protein 7.0 (6.5-8.0) g/dL Albumin 3.9 (3.5-5.0) g/dL Lipase 26 (8-78) U/L Urine Color Yellow Urine Appearance Clear Urine pH 7.0 (5.0-9.0) Ur Specific Koppel 1.010 (1.005-1.025) Urine Protein Negative (Neg-Trace) mg/dL Urine Glucose (UA) Negative (Negative) mg/dL Urine Ketones Negative (Negative) mg/dL Urine Blood Trace H (Negative) Urine Nitrite Negative (Negative) Ur Leukocyte Esterase Negative (Negative) Urine RBC 0-2 (0-2) /HPF Urine WBC 0-5 (0-5) /HPF Ur Squamous Epith Cells 3-5 (0-2) /HPF Urine Bacteria None Seen (None Seen) Hyaline Casts 0-2 (0-2) /LPF Influenza Type A (PCR) NEGATIVE (Negative) Influenza Type B (PCR) NEGATIVE (Negative) RSV RNA Qual (PCR) NEGATIVE (Negative) SARS-CoV-2 RNA (RT-PCR) NEGATIVE (Negative) Independent Interpretation I performed an independent interpretation of an: EKG and Plain X-Ray Radiology Impression Discussion of test interpretation with radiology: I have reviewed the radiologist's reading. External Record Review External record reviewed: Inpatient record, Office record, Outpatient record, Prior outpatient labs, Prior outpatient radiology, Primary care record and Outside ED record Tests considered The following testing was considered but not selected: As above Prescription Management I considered prescription management with: Pain Medication and Other Chronic Conditions Patient?s care impacted by: Other Social Determinants Patient?s care significantly limited by Social Determinants of Health including: Other Social Determinant of Health Discharge Plan Discharge Clinical Impression: Acute viral syndrome, Headache Patient Disposition: Home, Self-Care Instructions: Acute Headache (DC), Viral Syndrome (ED) Additional Instructions: Your blood work today is reassuring You tested negative for COVID, flu, RSV your x-rays unremarkable Fioricet is for headaches, take as needed. Be aware this has Tylenol mixed in, do not exceed 4 g of Tylenol in 1 day Rest. Stay hydrated follow up with your primary care doctor if your symptoms persist or worsen return to the ED Prescriptions: New albuterol sulfate 90 mcg/actuation HFA aerosol inhaler 2 puff inhalation Q4-6H PRN (Reason: shortness of breath or wheezing) Qty: 6.7 0RF qvqjdgvxcl-kivkpjzhysthd-ohtv [Fioricet] 50-300-40 mg capsule 1 cap PO Q4-6H PRN (Reason: headache) Qty: 14 0RF No Action (DME) blood pressure monitor [Blood Pressure Kit] Kit See Rx Instructions .ROUTE .MEDSUPPLY Qty: 1 0RF Rx Instructions: As directed (DME) cane Device See Rx Instructions .Route Qty: 1 0RF Rx Instructions: As directed (DME) walker Misc See Rx Instructions .Route Qty: 1 0RF Rx Instructions: To be use lifetime (DME) underpads [Bed Underpads] Pad See Rx Instructions .Route Qty: 100 0RF Rx Instructions: As directed Combivent Respimat 20-100 mcg/actuation mist 1 puff PO QID 30 Days Qty: 25 1RF Patient Comments: Pulmo given loratadine 10 mg tablet 10 mg PO DAILY PRN (Reason: for allergies) 30 Days Qty: 30 1RF naloxone 10 mg/0.4 mL auto-injector 2 mg subcut Q3M 30 Days Qty: 4 0RF Rx Instructions: until desired response magnesium oxide 400 mg (241.3 mg magnesium) tablet 400 mg PO BEDTIME 30 Days Qty: 30 6RF Rx Instructions: may hold for loose stools riboflavin (vitamin B2) 400 mg tablet 400 mg PO DAILY 30 Days Qty: 30 6RF cholecalciferol (vitamin D3) 50 mcg (2,000 unit) tablet 50 mcg PO DAILY 90 Days Qty: 90 1RF clonazepam 0.5 mg tablet 0.5 mg PO BEDTIME PRN (Reason: anxiety) 30 Days Qty: 60 1RF albuterol sulfate 90 mcg/actuation HFA aerosol inhaler 2 puff inhalation Q4-6H PRN (Reason: shortness of breath or wheezing) Qty: 6.7 6RF venlafaxine 37.5 mg capsule,extended release 24hr 37.5 mg PO BEDTIME 90 Days Qty: 90 1RF atorvastatin 20 mg tablet 20 mg PO BEDTIME 90 Days Qty: 90 1RF tramadol 50 mg tablet 50 mg PO BID PRN (Reason: severe pain (scale score 7-10)) 30 Days Qty: 60 0RF acetaminophen 500 mg tablet 1,000 mg PO TID PRN (Reason: pain) Qty: 20 0RF lidocaine [Lidoderm] 5 % adhesive patch,medicated 1 patch topical DAILY Qty: 30 0RF Rx Instructions: leave on most painful area for up to 12 hrs diphenhydramine HCl 25 mg capsule 50 mg PO Q6H PRN (Reason: headache, nausea, vomiting) Qty: 20 0RF metoclopramide HCl [Reglan] 10 mg tablet 10 mg PO Q6H PRN (Reason: nausea and vomiting) Qty: 14 0RF Excedrin Extra Strength 250-250-65 mg tablet 2 tab PO Q6H PRN (Reason: headache) Qty: 20 0RF amoxicillin 500 mg tablet 500 mg PO Q12H Qty: 19 0RF fluticasone propionate [Flonase Allergy Relief] 50 mcg/actuation spray,suspension 1 spray intranasal BID PRN (Reason: nasal congestion) Qty: 16 0RF Rx Instructions: administer into each nostril albuterol sulfate 2.5 mg/0.5 mL solution for nebulization 5 mg inhalation Q4H PRN (Reason: shortness of breath or wheezing) Qty: 30 0RF meclizine 12.5 mg tablet 12.5 mg PO TID PRN (Reason: dizziness) Qty: 14 0RF metoclopramide HCl [Reglan] 10 mg tablet 10 mg PO Q6H PRN (Reason: nausea and vomiting) Qty: 14 0RF fluticasone propionate [Flonase Allergy Relief] 50 mcg/actuation spray,suspension 2 spray intranasal Q12H 30 Days Qty: 16 0RF Rx Instructions: administer into each nostril ondansetron 4 mg tablet,disintegrating 4 mg PO Q6H PRN (Reason: nausea and vomiting) Qty: 20 6RF montelukast 10 mg tablet 10 mg PO DAILY 30 Days Qty: 30 11RF melatonin 10 mg capsule 10 mg PO BEDTIME PRN (Reason: sleep) Qty: 90 1RF Emgality Pen 120 mg/mL pen injector 240 mg subcut ONCE 30 Days Qty: 2 0RF Rx Instructions: Loading dose: 120 mg subcu injection x2 in alternate sites (total 240 mg). To be followed by maintenance dose of 120 mg subcu q.month. Nurtec ODT 75 mg tablet,disintegrating 75 mg PO ONCE MDD 1 tab PRN (Reason: migraine headache) 30 Days Qty: 16 6RF diphenhydramine HCl [Benadryl Allergy] 25 mg tablet 25 mg PO BEDTIME PRN (Reason: sleep) 15 Days Qty: 30 0RF Rx Instructions: may repeat once in 30-60 minutes if not effective montelukast [Singulair] 10 mg tablet 10 mg PO BEDTIME 30 Days Qty: 30 11RF varenicline tartrate [Chantix Starting Month Box] 0.5 mg (11)- 1 mg (42) tablets,dose pack See Rx Instructions PO PER PKG DIR Qty: 42 0RF Rx Instructions: PO PER PKG DIR fluocinolone acetonide oil [DermOtic Oil] 0.01 % drops 5 drp otic (ears) BID 7 Days Qty: 20 0RF (DME) nebulizers [AeroEclipse II Nebulizer] Misc See Rx Instructions .Route Qty: 1 0RF Rx Instructions: As directed albuterol sulfate 2.5 mg /3 mL (0.083 %) solution for nebulization 2.5 mg inhalation Q6H PRN (Reason: bronchospasm) 30 Days Qty: 360 0RF fenofibrate 54 mg tablet 54 mg PO DAILY 90 Days Qty: 90 1RF epinephrine [EpiPen 2-Pantera] 0.3 mg/0.3 mL auto-injector 0.3 mg IM Q10M PRN (Reason: anaphylaxis) Qty: 2 0RF Rx Instructions: for 3 doses hydroxyzine HCl 25 mg tablet 25 mg PO Q8H PRN (Reason: itching) Qty: 14 0RF hydrocortisone 2.5 % cream 1 appl topical BID PRN (Reason: Skin Irritation) Qty: 30 0RF Pataday Once Daily Relief 0.7 % drops 1 drp ophthalmic (eye) Q24H PRN (Reason: itching) Qty: 5 0RF Referrals: [facility] [Provider Group] - 1 week Neyda Foster MD [Primary Care Provider] - 5 days Discharge Date/Time: 10/03/24 12:27 Print Language: Syriac
[2024-10-03] MEDS: Butalb/Acetamin/Caff 50/325/40 TABLET 1 TAB PO (10:23)
[2024-10-03] MEDS: Potassium Chloride Packet 20 MEQ PACKET 40 MEQ PO (10:23)
[2024-10-03 11:12] LABS: Appearance Urine Clear; Color Urine Yellow; Glucose Urine UA Negative (Negative); Leukocyte Esterase Urine Negative (Negative); Nitrite Urine Negative (Negative); UMIC TRIGGER UACC YES; Urine Blood Trace (Negative); Urine Ketones Negative (Negative); Urine Protein Negative (Neg-Trace)
[2024-10-03 11:17] LABS: Bacteria Urine None Seen (None Seen); Hyaline Casts Urine 0-2 /LPF (0-2); RBC Urine 0-2 /HPF (0-2); WBC Urine 0-5 /HPF (0-5)
[2024-10-03 12:26] VITALS: BP 133/86; PULSE 72; RESP 16; TEMP 36.2; O2SAT 100
== END 2024-10-03 12:27 | disposition home or self-care (01) ==
PROVIDERS: Physician Assistant; Emergency Provider Emergency Medicine Emergency Medical Services; PCP Internal Medicine
DX: B34.9 Viral infection, unspecified (principal); R51.9 Headache, unspecified; H92.01 Otalgia, right ear; R11.0 Nausea; R06.02 Shortness of breath; R07.89 Other chest pain; Z03.818 Encounter for observation for suspected exposure to other biological agents ruled out; Z79.899 Other long term (current) drug therapy
CPT/HCPCS: 0241U; 36415; 71046; 80048; 80076; 81001; 83690; 83735; 84484; 85025; 93005; 94640; 96360; 96361; 99284; 99285

== ENCOUNTER → 2024-10-03 08:41 | Outpatient (BNV) | payer OTHER, SELFPAY | PROVIDERS: Emergency Provider Emergency Medicine Emergency Medical Services; PCP Internal Medicine; Visit Provider Internal Medicine Cardiovascular Disease | DX: R51.9 Headache, unspecified (principal) | CPT/HCPCS: 93010 ==

== ENCOUNTER → 2024-10-03 08:42 | Outpatient (BNV) | payer OTHER, SELFPAY | PROVIDERS: Emergency Provider Emergency Medicine Emergency Medical Services; PCP Internal Medicine; Visit Provider Radiology Diagnostic Radiology | DX: R07.9 Chest pain, unspecified (principal) | CPT/HCPCS: 71046 ==

== ENCOUNTER 2024-10-06 14:16 | Emergency (ER) | payer OTHER, SELFPAY | END 2024-10-06 15:16 | disposition left against medical advice (07) | PROVIDERS: Emergency Provider Emergency Medicine; PCP Internal Medicine | DX: T78.40XA Allergy, unspecified, initial encounter (principal); X58.XXXA Exposure to other specified factors, initial encounter | CPT/HCPCS: 99212 ==

== ENCOUNTER 2024-10-06 14:48 | Outpatient (AMB) | payer OTHER, SELFPAY ==
--- NOTE | 2024-10-06 14:55 | AM.OFFWIN_ITS ---
Intake Vital Signs 10/06/24 14:56 Weight 148 lb BP 134/86 Blood Pressure Location Lt brachial Position Sitting Pulse 76 Pulse Source Pulse Oximeter Temp 98.3 F Temp Source Oral Pulse Oximetry (%) 96 Oxygen Delivery Method Room Air Intake Visit Reasons: EP-vomiting, body hives from eating sea food Intake Note: Patient here for itchy face, head, nose, back, legs and arms that started yesterday after consuming sea food. Patient Tobacco Use Status: Current someday Tobacco user Allergies amitriptyline Allergy (Intermediate, Verified 10/06/24 14:58) headache ibuprofen [From Motrin] Allergy (Intermediate, Verified 10/06/24 14:58) ITCHY RASH gabapentin Adverse Reaction (Intermediate, Verified 10/06/24 14:58) vomiting Do you need a note to return to daycare/school/sports/work: No HPI HPI Comments History of Present Illness Details 53 y/o Female patient who presents to [facility] [place] [facility] clinic with c/o itchy face, head, nose, back, legs and arms that started yesterday after consuming sea food. Reports Ate Shrimp and Amadeo Fish Fish yesterday for Dinner. Denies Facial Edema, Tongue swelling, SOB or Chest tightness. Pt has an Epi Pen and was instructed to use it if these symptoms present. It is not clear if she is allergic to Seafood - but does endorse Itching in the past after she consumed Shrimp. [facility] Medical History (Updated 10/06/24 @ 15:25 by Maxine Saeed NP) Generalized pruritus Smoking 1/2 pack a day or less Asthma-COPD overlap syndrome Acute maxillary sinusitis Otitis externa Hospital discharge follow-up Microscopic hematuria Physical exam Goiter Blurry vision Tobacco dependence Has daytime drowsiness Pulmonary nodules Moderate recurrent major depression Dyspnea Hand pain Skin lesion Leg pain, bilateral Dyslipidemia Epigastric pain Essential hypertension Cervical cancer screening GERD (gastroesophageal reflux disease) HTN (hypertension) Migraine Anxiety Depression Right lower quadrant pain Fibromyalgia Surgical History Previous section History of breast lump/mass excision History of lithotripsy H/O LEEP H/O tubal ligation Family History Father Myocardial infarction Mother Lung cancer Brother Liver cancer Maternal Grandfather Stomach cancer Maternal Grandmother No problems noted. Social History Housing: Apartment Alcohol intake: never Patient Tobacco Use Status: Current someday Tobacco user Tobacco use type: Cigarette Cigarette Packs Per Day: 0.25 Cigarettes Per Day: 3 e-Cigarette/Vaping Use: Never Used Second Hand Smoke Exposure: Yes Advance Directives: No Advance Directives Information Provided: No service: No Current occupational status: disabled Gender identity: Female Cognitive needs: No Hearing needs: No Vision needs: No Female Reproductive History Menstrual Age of Menarche: 9 Review of Systems Const All systems reviewed & are unremarkable except as noted in HPI and below Physical Exam Vital Signs: Last Vital Signs Temp 98.3 F 10/06/24 14:56 Pulse 76 10/06/24 14:56 BP 134/86 10/06/24 14:56 Pulse Ox 96 10/06/24 14:56 Oxygen Delivery Method Room Air 10/06/24 14:56 Const General: no acute distress; No comfortable Nutritional Appearance: overweight Orientation/consciousness: patient oriented x3 HEENT General nose exam: Normal external nose present Face and sinus: Yes normal facial exam and Yes sinuses nontender Mouth: moist mucous membranes Throat: Yes uvula midline Resp Effort & Inspection: normal respiratory effort and able to speak in complete sentences Auscultation: clear to auscultation bilaterally Cardio Rhythm: regular rhythm Heart sounds: S1 normal heart sound present and S2 normal heart sound present Skin Other: No visible Rash or hives present General skin exam: dry skin, no erythema and lichenification Lesions: no lesions Rashes: no rashes Neuro General: patient oriented x3 Psych Speech and movement: Normal speech and movement present Assessment & Plan Assessment & Plan (1) Generalized pruritus: Code(s): L29.9 - Pruritus, unspecified Plan: Ordered Epi Pen and educated Patient on the to use it. Ordered Prednisone x 10 days and added Eucerine Itch Lotion Continue taking Benadrly and Claritin. Medications: New prednisone 20 mg PO DAILY 10 tabs 0RF L29.9 - Pruritus, unspecified menthol 0.1% (Eucerin Itch Relief) 1 ea topical BID 14 days 250 mL 0RF L29.9 - Pruritus, unspecified Refilled diphenhydramine HCl 50 mg (2 x 25 mg) PO Q6H PRN 20 caps 0RF allergic reaction L29.9 - Pruritus, unspecified epinephrine (EpiPen 2-Pantera) for 3 doses 0.3 mg (0.3 mL) IM Q10M PRN 2 ea 0RF anaphylaxis L29.9 - Pruritus, unspecified Discontinued amoxicillin Discontinued Reason: Patient Completed Course 500 mg PO Q12H 19 tabs 0RF albuterol sulfate Discontinued Reason: Patient Completed Course 5 mg inhalation Q4H PRN 30 ea 0RF shortness of breath or wheezing bgibpvx-wpmuofyediyow-fyvhbqvw 250-250-65 mg (Excedrin Extra Strength) Discontinued Reason: Patient Completed Course 2 tabs PO Q6H PRN 20 tabs 0RF headache fluticasone propionate 50 mcg/actuation (Flonase Allergy Relief) administer into each nostril Discontinued Reason: Patient Completed Course 2 sprays intranasal Q12H 30 days 16 grams 0RF R09.81 - Nasal congestion albuterol sulfate 90 mcg/actuation Discontinued Reason: Duplicate 2 puffs inhalation Q4-6H PRN 6.7 grams 6RF shortness of breath or wheezing hydrocortisone 2.5% Discontinued Reason: Patient Completed Course 1 appl topical BID PRN 30 grams 0RF Skin Irritation albuterol sulfate Discontinued Reason: Patient Completed Course 2.5 mg (3 mL) inhalation Q6H 30 days PRN 360 mL 0RF bronchospasm ondansetron Discontinued Reason: Patient Refused 4 mg PO Q6H PRN 20 tabs 6RF nausea and vomiting diphenhydramine HCl (Benadryl Allergy) may repeat once in 30-60 minutes if not effective Discontinued Reason: Patient Completed Course 25 mg PO BEDTIME 15 days PRN 30 tabs 0RF sleep hydroxyzine HCl Discontinued Reason: Patient Completed Course 25 mg PO Q8H PRN 14 tabs 0RF itching Coding Level of Care Code Est Pt Level 4 (88464) Diagnoses Generalized pruritus L29.9 Time Spent (min) 20
[2024-10-06 14:56] VITALS: BP 134/86; PULSE 76; TEMP 36.8; O2SAT 96
== END 2024-10-06 15:27 | disposition home or self-care (01) ==
PROVIDERS: PCP Internal Medicine; Visit Provider Nurse Practitioner Family
DX: L29.9 Pruritus, unspecified (principal)

== ENCOUNTER 2024-10-09 12:58 | Outpatient (AMB) | payer OTHER, SELFPAY ==
--- NOTE | 2024-10-09 13:12 | MHC.PC.OV ---
Vital Signs 10/09/24 13:14 Height 5 ft 1 in Weight 146 lb 8 oz BMI 27.7 BP 122/70 Blood Pressure Location Lt brachial Position Sitting Pulse 109 H Pulse Source Pulse Oximeter Temp 97.3 F Temp Source Temporal Artery Scan Pulse Oximetry (%) 95 Oxygen Delivery Method Room Air Intake Visit Reasons: LT lower abd pain towards back Intake Note: Patient is here to follow up on Lt lower abdomen pain radiate to back. Residential Aide Required: Yes Residential Aide Language: German Information Interpreted: non-clinical & clinical Human Resources Intern: Not Required per policy Accompanied by: Self / Same As Patient Allergies amitriptyline Allergy (Intermediate, Verified 10/09/24 13:26) headache ibuprofen [From Motrin] Allergy (Intermediate, Verified 10/09/24 13:26) ITCHY RASH gabapentin Adverse Reaction (Intermediate, Verified 10/09/24 13:26) vomiting Medication List - Last Reconciled 10/09/24 by Stephanie Stevenson PA-C acetaminophen 1,000 mg (2 x 500 mg) PO TID PRN albuterol sulfate 90 mcg/actuation 2 puffs inhalation Q4-6H PRN atorvastatin 20 mg PO BEDTIME 90 days blood pressure monitor (Blood Pressure Kit) As directed cdejxgveay-fxwjltswtbztm-dugf 50-300-40 mg (Fioricet) 1 cap PO Q4-6H PRN cane As directed cholecalciferol (vitamin D3) 50 mcg PO DAILY 90 days clonazepam 0.5 mg PO BEDTIME PRN 30 days diphenhydramine HCl 50 mg (2 x 25 mg) PO Q6H PRN epinephrine (EpiPen 2-Pantera) 0.3 mg (0.3 mL) IM Q10M PRN fenofibrate 54 mg PO DAILY 90 days fluocinolone acetonide oil 0.01% (DermOtic Oil) 5 drps otic (ears) BID 7 days fluticasone propionate 50 mcg/actuation (Flonase Allergy Relief) 1 spray intranasal BID PRN galcanezumab-gnlm (Emgality Pen) 240 mg (2 mL) subcut ONCE 30 days ipratropium-albuterol 20-100 mcg/actuation (Combivent Respimat) 1 puff PO QID 30 days lidocaine 5% (Lidoderm) 1 patch topical DAILY loratadine 10 mg PO DAILY PRN 30 days magnesium oxide 400 mg PO BEDTIME 30 days meclizine 12.5 mg PO TID PRN melatonin 10 mg PO BEDTIME PRN menthol 0.1% (Eucerin Itch Relief) 1 ea topical BID 14 days metoclopramide HCl (Reglan) 10 mg PO Q6H PRN montelukast (Singulair) 10 mg PO BEDTIME 30 days naloxone 2 mg (0.08 mL) subcut Q3M 30 days nebulizers (AeroEclipse II Nebulizer) As directed olopatadine 0.7% (Pataday Once Daily Relief) 1 drp ophthalmic (eye) Q24H PRN prednisone 20 mg PO DAILY riboflavin (vitamin B2) 400 mg PO DAILY 30 days rimegepant (Nurtec ODT) 75 mg PO ONCE PRN 30 days MDD 1 tab tramadol 50 mg PO BID PRN 30 days underpads (Bed Underpads) As directed varenicline tartrate (Chantix Starting Month Box) PO PER PKG DIR venlafaxine ER 37.5 mg PO BEDTIME 90 days walker To be use lifetime Tobacco use date assessed: 10/09/24 Dental Screening Dental Screen Date: 06/26/24 Did you have a dental visit in the last 12 months?: Yes Did you have a dental problem in the last 6 months where you did not have access to dental care?: No Was dental information given to patient?: Patient has dentist HPI LT lower abd pain towards back HPI Details The patient is a 53-year-old female presenting with complaints of persistent left side abdominal pain and a facial rash. She has experienced left-sided abdominal pain for about a year, which has progressively worsened. The pain, primarily in the left abdomen and radiating to the back, is severe enough to affect her mobility at times. She reports in the past she was told she had stones she believes it might have been gallstones. She denies a history of kidney stones that she is aware of. The patient also reports a facial rash, which flared after a buffet and has persisted despite treatment. She links this rash to a possible seafood allergy. She denies any trouble swallowing, breathing, swelling of the lips, wheezing, nausea or vomiting, chest pain, black or bloody stools, dysuria hematuria, abnormal vaginal discharge, rashes, recent travel or sick contacts, others with similar symptoms, possible bad food exposure or any other symptoms complaints or concerns at this time. Social History - History of dietary changes to include increased water intake, avoiding soda for kidney stone prevention - Attended a family buffet, which might have led to an allergic reaction - Requires assistance from a cane due to abdominal pain impacting mobility [facility] Medical History Left sided abdominal pain Generalized pruritus Smoking 1/2 pack a day or less Asthma-COPD overlap syndrome Acute maxillary sinusitis Otitis externa Hospital discharge follow-up Microscopic hematuria Physical exam Goiter Blurry vision Tobacco dependence Has daytime drowsiness Pulmonary nodules Moderate recurrent major depression Dyspnea Hand pain Skin lesion Leg pain, bilateral Dyslipidemia Epigastric pain Essential hypertension Cervical cancer screening GERD (gastroesophageal reflux disease) HTN (hypertension) Migraine Anxiety Depression Right lower quadrant pain Fibromyalgia Surgical History Previous section History of breast lump/mass excision History of lithotripsy H/O LEEP H/O tubal ligation Family History Father Myocardial infarction Mother Lung cancer Brother Liver cancer Maternal Grandfather Stomach cancer Maternal Grandmother No problems noted. Social History Housing: Apartment Alcohol intake: never Patient Tobacco Use Status: Current someday Tobacco user Tobacco use type: Cigarette Cigarette Packs Per Day: 0.25 Cigarettes Per Day: 3 e-Cigarette/Vaping Use: Never Used Second Hand Smoke Exposure: Yes service: No Current occupational status: disabled Gender identity: Female Cognitive needs: No Hearing needs: No Vision needs: No Female Reproductive History Menstrual Age of Menarche: 9 Questionnaire Thrive Questionnaire Date Thrive assessed: 06/26/24 JOHN-7 AMB Questionnaire JOHN-7 Date JOHN - 7 assessed: 06/26/24 Source: Developed by Drs. Sylvester Merlos, Eve Mcclelland, Joby King and colleagues, with an educational pili from [employer] Review of Systems Const Details: - Gastrointestinal: Reports abdominal pain, distension - Dermatological: Reports facial rash, itching, redness - Genitourinary: Denies current urinary symptoms, history of kidney stones Physical exam (Primary Care) Vital Signs: Last Vital Signs Temp 97.3 F 10/09/24 13:14 Pulse 109 H 10/09/24 13:14 BP 122/70 10/09/24 13:14 Pulse Ox 95 10/09/24 13:14 Oxygen Delivery Method Room Air 10/09/24 13:14 Care Plan Goal for BP management: <130/90 at Goal BMI result Body Mass Index 27.7 Tobacco/Smoking Status: Tobacco use Status Tobacco use date assessed 10/09/24 10/09/24 13:18 Patient Tobacco Use Status Current someday Tobacco 10/09/24 13:18 Tobacco use type Cigarette 10/09/24 13:18 e-Cigarette/Vaping Use Never Used 10/09/24 13:18 Thrive Assessment: Date of Thrive Assessment Date Thrive assessed 06/26/24 10/09/24 13:18 Const Other: Appearance: Alert. Oriented X3. No acute distress. Head: Normal external exam. Normocephalic. Atraumatic. Eyes: Pupils are equal, round, and reactive to light. Extraocular movements intact. Conjunctiva and sclera normal. Eyelids normal. Throat: Pharynx normal. Uvula midline. Moist mucous membranes. Neck: Normal inspection. Neck supple. Full range of motion. Cardiovascular: Normal heart rate and rhythm. Respiratory: No respiratory distress. Painless inspiration. Abdomen: Soft and mild tenderness to palpation to the left side of the abdomen. There is no rebound tenderness. Negative psoas sign, negative Rovsing sign, negative obturator sign, negative Mcguire signs. Bowel sounds normal in all 4 quadrants. No distention noted. No organomegaly noted. No visible injury noted. Back: No costovertebral angle tenderness. Full range of motion noted. Skin: Skin warm and dry. Normal skin color. Normal skin turgor. Rash noted on the face, described as red and itchy. There is no angioedema noted or signs of infection. Extremities: Extremities exhibit normal range of motion. Neuro: Oriented X 3. No motor deficit. No sensory deficit. Reflexes normal. Coding Level of Care Code Est Pt Level 4 (51064) Diagnoses Left sided abdominal pain R10.9 Allergy T78.40XA Assessment & Plan Assessment & Plan (1) Left sided abdominal pain: Code(s): R10.9 - Unspecified abdominal pain Category: Medical Plan: The patient will undergo a CT scan to further explore causes such as potential gallstones, kidney stones, diverticulitis, diverticulosis, constipation. H and P not consistent with acute abdomen, sepsis, pyelonephritis or appendicitis or acute cholecystitis. She was advised on monitoring pain severity and patterns, with a focus on reporting any changes. Will continue to monitor and patient instructed to go to the emergency department symptoms worsen. (2) Allergy: Code(s): T78.40XA - Allergy, unspecified, initial encounter Category: Medical Plan: Prescription treatment for the rash and itching was provided, considering a possible allergy connection. She was instructed to avoid allergens and monitor for improvement with the medications. Condition is chronic and stable continue to monitor. Plan Plan Patient was informed and verbally consented to the use of an ambient scribe for clinic note documentation during this visit. 1. Abdominal Pain The patient will undergo a CT scan to further explore causes such as potential gallstones. She was advised on monitoring pain severity and patterns, with a focus on reporting any changes. 2. Rash Prescription treatment for the rash and itching was provided, considering a possible allergy connection. She was instructed to avoid allergens and monitor for improvement with the medications. During the visit, we discussed the complexity and potential causes of the abdominal pain, noting its longevity and impact on daily life. I emphasized the importance of the upcoming CT scan in determining the presence of any abnormalities and how this would direct further management. The patient was informed about ongoing self-monitoring, dietary management, and the potential need for surgical intervention if stones were confirmed. For the facial rash, I discussed likely allergenic triggers and recommended medications to alleviate symptoms while preventing exposure. The treatment plan aims to target her immediate symptoms while enabling evaluation of underlying conditions. Orders: Orders Comprehensive Met. Panel Today Z00.00 - Encounter for general adult medical examination without abnormal findings Magnesium Today Z00.00 - Encounter for general adult medical examination without abnormal findings Liver Panel Today Z00.00 - Encounter for general adult medical examination without abnormal findings UA CC w/rflx Micro + Cult Today R10.9 - Unspecified abdominal pain CT abdomen pelvis w IV con Today R10.9 - Unspecified abdominal pain Complete Blood Count Auto Diff Today Z00.00 - Encounter for general adult medical examination without abnormal findings Hemoglobin A1c Today Z00.00 - Encounter for general adult medical examination without abnormal findings C Reactive Protein Today Z00.00 - Encounter for general adult medical examination without abnormal findings Referrals Allergy & Immunology Referral T78.40XA - Allergy, unspecified, initial encounter Medications: New hydrocortisone 2.5% 1 appl topical BID-TID PRN 454 grams 1RF itching hydroxyzine HCl 50 mg PO Q8H PRN 90 tabs 1RF nausea and vomiting fexofenadine (Gemini Allergy) 180 mg PO DAILY 90 tabs 1RF Discontinued loratadine Discontinued Reason: Doctor's Order 10 mg PO DAILY 30 days PRN 30 tabs 1RF for allergies Patient Instructions: - Follow new medication regimen aimed at controlling rash symptoms and itching. - Avoid consuming known allergens, especially seafood, to prevent rash recurrence. - Await scheduling and completion of the abdominal CT scan; I will follow up regarding results. - Observe and record any changes or worsening of abdominal pain. - Maintain hydration and dietary adjustments previously advised.
[2024-10-09 13:14] VITALS: BP 122/70; PULSE 109; TEMP 36.3; O2SAT 95; BMI 27.7
== END 2024-10-09 16:19 | disposition home or self-care (01) ==
LOC: HO.HMCH 12:59
PROVIDERS: PCP Internal Medicine; Visit Provider Physician Assistant Medical
DX: R10.9 Unspecified abdominal pain (principal); T78.40XA Allergy, unspecified, initial encounter

== ENCOUNTER → 2024-10-09 12:58 | Outpatient (BNVA) | payer OTHER, SELFPAY | PROVIDERS: PCP Internal Medicine; Visit Provider Physician Assistant Medical | DX: R10.9 Unspecified abdominal pain (principal); T78.40XA Allergy, unspecified, initial encounter | CPT/HCPCS: 99212 ==

== ENCOUNTER 2024-10-16 14:08 | Outpatient (AMB) | payer OTHER, SELFPAY ==
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
== END 2024-10-16 14:41 | disposition home or self-care (01) ==
LOC: HO.HOP 14:08
PROVIDERS: PCP Internal Medicine; Visit Provider Clinical Nurse Specialist Psychiatric/Mental Health
DX: F41.1 Generalized anxiety disorder (principal); F33.1 Major depressive disorder, recurrent, moderate
CPT/HCPCS: 90792

== ENCOUNTER → 2024-10-16 14:08 | Outpatient (BNVA) | payer OTHER, SELFPAY | PROVIDERS: PCP Internal Medicine; Visit Provider Clinical Nurse Specialist Psychiatric/Mental Health | DX: F41.1 Generalized anxiety disorder (principal); F33.1 Major depressive disorder, recurrent, moderate | CPT/HCPCS: 90792 ==

== ENCOUNTER 2024-10-23 22:24 | Emergency (ER) | payer OTHER, SELFPAY ==
--- NOTE | 2024-10-23 | ECG_ITS ---
Test Reason : CP Blood Pressure : */* mmHG Vent. Rate : 107 BPM Atrial Rate : 107 BPM P-R Int : 142 ms QRS Dur : 72 ms QT Int : 340 ms P-R-T Axes : 49 16 8 degrees QTcB Int : 453 ms Sinus tachycardia Otherwise normal ECG When compared with ECG of 03-Oct-2024 10:53, No significant change was found Referred By: Generic ED Physician Electronically Signed By: DAVON REVELES
--- NOTE | ~2024-10-23 | XR_ITS ---
CLINICAL HISTORY: chest pain 2 view chest x-ray Comparison: CR/SR - XR CHEST 2V - 10/03/24 10:01 EDT Findings: Mild left lower lobe atelectasis. No significant pleural effusion or pneumothorax. Presumed calcified bilateral granulomas. Similar prominent/enlarged cardiac silhouette. No acute fracture. IMPRESSION: Mild left lower lobe atelectasis. This document has been electronically signed by: Kal Mtz MD on 10/23/2024 23:16:33
[2024-10-23 22:28] VITALS: BP 147/91; PULSE 109; RESP 20; TEMP 36.6; O2SAT 98; BMI 27.8
[2024-10-23 22:50] LABS: MANUAL DIFF FLAG NO
[2024-10-23 22:52] LABS: Basophils Absolute Auto 0.1 X10*3/uL (0.0-0.2); Basophils Percent Auto 0.6 % (0-2); Eosinophils Absolute Auto 0.1 X10*3/uL (0.0-0.4); Eosinophils Percent Auto 1.6 % (0-4); Hematocrit 35.7 % (37.0-47.0); Hemoglobin 12.1 g/dl (12.0-16.0); Imm Gran Abs Auto 0.02 X10*3/uL (0.00-0.03); Imm Gran Pct Auto 0.2 % (0.0-0.4); Lymphocytes Absolute Auto 3.2 X10*3/uL (1.2-4.9); Lymphocytes Percent Auto 36.7 % (20-40); Mean Corpuscular HGB Conc 33.9 g/dl (31.0-35.0); Mean Corpuscular Volume 79.7 fL (80.0-98.0); Mean Platelet Volume 10.2 fL (9.4-12.3); Monocytes Absolute Auto 0.5 X10*3/uL (0.1-1.2); Monocytes Percent Auto 5.8 % (2-11); Neutrophils Absolute Auto 4.7 x10*3/uL (2.0-8.3); Neutrophils Percent Auto 55.1 % (45-73); Platelet Count 291 X10*3/uL (160-400); Red Blood Count 4.48 X10*6/uL (4.20-5.50); Red Cell Distribution Width 13.8 % (11.0-16.0); White Blood Count 8.6 X10*3/uL (4.8-10.8)
[2024-10-23 23:08] LABS: Alanine Aminotransferase 17 U/L (0-31); Albumin Level 4.3 g/dL (3.5-5.0); Alkaline Phosphatase 111 U/L (39-117); Anion Gap 16 (12-20); Aspartate Amino Transferase 21 U/L (5-31); Bilirubin Total 0.3 mg/dL (0.0-1.0); Blood Urea Nitrogen 14 mg/dL (9-16); Calcium 9.8 mg/dL (8.4-10.2); Carbon Dioxide 24 mmol/L (22-29); Chloride 106 mmol/L (96-108); Creatinine Clr Calc Pharmacy 68.5; Estimated Glomerular Filt Rate > 60; Glucose Random 117 mg/dL (60-115); Potassium 3.3 mmol/L (3.3-5.1); Sodium 143 mmol/L (135-145); Total Protein 7.6 g/dL (6.5-8.0)
[2024-10-23 23:18] LABS: Troponin-I High Sensitivity < 2.7 ng/L (<3.5-17.0)
--- NOTE | 2024-10-24 00:31 | ED.GENADULT ---
HPI - General Adult General Chief complaint: General Medical Stated complaint: headache Time Seen by Provider: 10/24/24 00:31 Source: patient Mode of arrival: ambulatory Limitations: no limitations History of Present Illness ED Provider: HPI narrative: patient's will history of anxiety depression fibromyalgia comes here with multiple complaints complaining of pain in the left shoulder upper back left chest since yesterday Related Data Previous Rx's ?Medication ?Instructions ?Recorded blood pressure monitor (Blood #1 ea 09/06/22 Pressure Kit) cane #1 ea 09/06/22 acetaminophen 500 mg tablet 1,000 mg (2 x 500 mg) PO TID PRN 10/07/22 pain #20 tabs underpads (Bed Underpads) #100 ea 03/28/23 walker #1 ea 03/28/23 meclizine 12.5 mg tablet 12.5 mg PO TID PRN dizziness #14 11/21/23 tabs lidocaine 5 % topical patch 1 patch topical DAILY #30 ea 01/05/24 (Lidoderm) naloxone 10 mg/0.4 mL 2 mg (0.08 mL) subcut Q3M 30 days 01/09/24 injection,auto-injector #4 mL fluocinolone acetonide oil 0.01 % 5 drp otic (ears) BID 7 days #20 mL 04/03/24 ear drops (DermOtic Oil) nebulizers (AeroEclipse II #1 ea 04/03/24 Nebulizer) magnesium oxide 400 mg (241.3 mg 400 mg PO BEDTIME 30 days #30 tabs 04/16/24 magnesium) tablet riboflavin (vitamin B2) 400 mg 400 mg PO DAILY 30 days #30 tabs 04/16/24 tablet montelukast 10 mg tablet 10 mg PO BEDTIME 30 days #30 tabs 04/22/24 (Singulair) varenicline tartrate 0.5 mg (11)-1 See Rx Instructions PO PER PKG DIR 04/22/24 mg (42) tablets in a dose pack #42 ea (Chantix Starting Month Box) cholecalciferol (vitamin D3) 50 50 mcg PO DAILY 90 days #90 tabs 04/24/24 mcg (2,000 unit) tablet fenofibrate 54 mg tablet 54 mg PO DAILY 90 days #90 tabs 05/07/24 olopatadine 0.7 % eye drops 1 drp ophthalmic (eye) Q24H PRN 08/11/24 (Pataday Once Daily Relief) itching #5 mL fluticasone propionate 50 1 spray intranasal BID PRN nasal 09/21/24 mcg/actuation nasal congestion #16 grams spray,suspension (Flonase Allergy Relief) atorvastatin 20 mg tablet 20 mg PO BEDTIME 90 days #90 tabs 09/22/24 tramadol 50 mg tablet 50 mg PO BID PRN severe pain 09/26/24 (scale score 7-10) 30 days #60 tabs albuterol sulfate 90 mcg/actuation 2 puff inhalation Q4-6H PRN 10/03/24 aerosol inhaler shortness of breath or wheezing #6.7 grams diphenhydramine HCl 25 mg capsule 50 mg (2 x 25 mg) PO Q6H PRN 10/06/24 allergic reaction #20 caps epinephrine 0.3 mg/0.3 mL 0.3 mg (0.3 mL) IM Q10M PRN 10/06/24 injection, auto-injector (EpiPen anaphylaxis #2 ea 2-Pantera) menthol 0.1 % lotion (Eucerin Itch 1 ea topical BID 14 days #250 mL 10/06/24 Relief) prednisone 20 mg tablet 20 mg PO DAILY #10 tabs 10/06/24 fexofenadine 180 mg tablet 180 mg PO DAILY #90 tabs 10/09/24 (Gemini Allergy) hydrocortisone 2.5 % topical 1 appl topical BID-TID PRN itching 10/09/24 ointment #454 grams hydroxyzine HCl 50 mg tablet 50 mg PO Q8H PRN nausea and 10/09/24 vomiting #90 tabs bupropion HCl 150 mg 24 hr tablet, 150 mg PO QAM #30 tabs 10/16/24 extended release (Wellbutrin XL) clonazepam 0.5 mg tablet 0.5 mg PO BID PRN anxiety 30 days 10/16/24 #60 tabs zolpidem 5 mg tablet (Ambien) 5 mg PO BEDTIME #30 tabs 10/16/24 ipratropium 20 mcg-albuterol 100 1 puff PO QID 30 days #25 mL 10/21/24 mcg/actuation mist for inhalation (Combivent Respimat) galcanezumab-gnlm 120 mg/mL 240 mg (2 mL) subcut ONCE 30 days 10/24/24 subcutaneous pen injector #2 mL (Emgality Pen) rimegepant 75 mg disintegrating 75 mg PO ONCE PRN migraine 10/24/24 tablet (Nurtec ODT) headache 30 days #15 tabs Allergies Allergy/AdvReac Type Severity Reaction Status Date / Time amitriptyline Allergy Intermediate headache Verified 10/23/24 22:29 ibuprofen [From Motrin] Allergy Intermediate ITCHY RASH Verified 10/23/24 22:29 gabapentin AdvReac Intermediate vomiting Verified 10/23/24 22:29 Review of Systems Review of Systems: Yes all other systems are reviewed and are negative [facility] Past Medical History Medical History Moderate recurrent major depression Left sided abdominal pain Generalized pruritus Smoking 1/2 pack a day or less Asthma-COPD overlap syndrome Acute maxillary sinusitis Otitis externa Hospital discharge follow-up Microscopic hematuria Physical exam Goiter Blurry vision Tobacco dependence Has daytime drowsiness Pulmonary nodules Dyspnea Hand pain Skin lesion Leg pain, bilateral Dyslipidemia Epigastric pain Essential hypertension Cervical cancer screening GERD (gastroesophageal reflux disease) HTN (hypertension) Migraine Anxiety Depression Right lower quadrant pain Fibromyalgia Surgical History Previous section History of breast lump/mass excision History of lithotripsy H/O LEEP H/O tubal ligation Family History Family History Father Myocardial infarction Mother Lung cancer Brother Liver cancer Maternal Grandfather Stomach cancer Maternal Grandmother No problems noted. Social History Social History Housing: Apartment Alcohol intake: never Patient Tobacco Use Status: Current someday Tobacco user Tobacco use type: Cigarette Cigarette Packs Per Day: 0.25 Cigarettes Per Day: 3 e-Cigarette/Vaping Use: Never Used Second Hand Smoke Exposure: Yes service: No Current occupational status: disabled Gender identity: Female Cognitive needs: No Hearing needs: No Vision needs: No Physical Exam ED Vital Signs: Vital Signs - 24 hr 10/23/24 22:28 10/24/24 00:44 10/24/24 00:45 Temperature 97.9 F Pulse Rate 109 H 79 80 Respiratory Rate 20 Blood Pressure 147/91 H 138/54 L 146/91 H Pulse Oximetry 98 Oxygen Delivery Method Room Air 10/24/24 00:46 10/24/24 00:48 Temperature 98.2 F Pulse Rate 77 80 Respiratory Rate 18 Blood Pressure 159/93 H 146/91 H Pulse Oximetry 99 Oxygen Delivery Method Room Air BMI result Body Mass Index 27.8 Appearance: Alert. Oriented X3. No acute distress. And feels Eyes: No pallor or icterus ENT: Pharynx normal. Oral Mucosa moist Neck: Normal inspection. Neck supple. Tender trapezius area CVS: Normal heart rate and rhythm. Pulses normal. Respiratory: No respiratory distress. Equal air entry bilateral, no wheezing/rales/rhonchi diffuse upper tenderness Abdomen: Soft and nontender. Bowel sounds are present, no mass palpable, no CVA tenderness Skin: Skin warm and dry. Normal skin color. Normal skin turgor. Extremities: No lower extremity edema. No calf tenderness Neuro: Oriented X 3. No motor deficit. No sensory deficit.No cerebellar signs , cranial nerves II-XII intact Medical Decision Making Medical Decision Making [facility] Narrative: Your symptoms with anxiety possible fibromyalgia as the cause of pain workup is negative for acute EKG negative for acute changes cardiac enzymes Lab Data [facility] Lab Attestation statement: I reviewed the patient's lab results. 10/23/24 22:46 10/23/24 22:46 Labs: Lab Results 10/23/24 Range/Units 22:46 WBC 8.6 (4.8-10.8) X10*3/uL RBC 4.48 (4.20-5.50) X10*6/uL Hgb 12.1 (12.0-16.0) g/dl Hct 35.7 L (37.0-47.0) % MCV 79.7 L (80.0-98.0) fL MCH 27.0 (27.0-33.0) pg MCHC 33.9 (31.0-35.0) g/dl RDW 13.8 (11.0-16.0) % Plt Count 291 (160-400) X10*3/uL MPV 10.2 (9.4-12.3) fL Immature Gran % (Auto) 0.2 (0.0-0.4) % Neut % (Auto) 55.1 (45-73) % Lymph % (Auto) 36.7 (20-40) % Cotton % (Auto) 5.8 (2-11) % Eos % (Auto) 1.6 (0-4) % Baso % (Auto) 0.6 (0-2) % Lymph # (Auto) 3.2 (1.2-4.9) X10*3/uL Cotton # (Auto) 0.5 (0.1-1.2) X10*3/uL Eos # (Auto) 0.1 (0.0-0.4) X10*3/uL Baso # (Auto) 0.1 (0.0-0.2) X10*3/uL Abs Immat Gran (auto) 0.02 (0.00-0.03) X10*3/uL Absolute Neuts (auto) 4.7 (2.0-8.3) x10*3/uL Absolute Nucleated RBC 0.000 (0.0-0.012) X10*3/uL Nucleated RBC % (auto) 0.0 (0.0-0.2) /100WBC Sodium 143 (135-145) mmol/L Potassium 3.3 (3.3-5.1) mmol/L Chloride 106 (96-108) mmol/L Carbon Dioxide 24 (22-29) mmol/L Anion Gap 16 (12-20) BUN 14 (9-16) mg/dL Creatinine 0.81 (0.5-1.4) mg/dL Estim Creat Clear Calc 68.5 Estimated GFR > 60 Random Glucose 117 H (60-115) mg/dL Calcium 9.8 D (8.4-10.2) mg/dL Total Bilirubin 0.3 (0.0-1.0) mg/dL AST 21 (5-31) U/L ALT 17 (0-31) U/L Alkaline Phosphatase 111 (39-117) U/L Troponin I High Sens < 2.7 (<3.5-17.0) ng/L Total Protein 7.6 (6.5-8.0) g/dL Albumin 4.3 (3.5-5.0) g/dL Independent Interpretation I performed an independent interpretation of an: EKG Interpretation: Sinus tachycardia heart rate 107 beats per minute normal intervals normal axis no acute STT wave changes no acute ischemia Discharge Plan Discharge Clinical Impression: Fibromyalgia, Anxiety Patient Disposition: Home, Self-Care Instructions: Fibromyalgia (ED), Anxiety (ED) Additional Instructions: continue to take your medications for anxiety and fibromyalgia and follow up with your PCP Prescriptions: No Action (DME) blood pressure monitor [Blood Pressure Kit] Kit See Rx Instructions .ROUTE .MEDSUPPLY Qty: 1 0RF Rx Instructions: As directed (DME) cane Device See Rx Instructions .Route Qty: 1 0RF Rx Instructions: As directed (DME) walker Misc See Rx Instructions .Route Qty: 1 0RF Rx Instructions: To be use lifetime (DME) underpads [Bed Underpads] Pad See Rx Instructions .Route Qty: 100 0RF Rx Instructions: As directed naloxone 10 mg/0.4 mL auto-injector 2 mg subcut Q3M 30 Days Qty: 4 0RF Rx Instructions: until desired response magnesium oxide 400 mg (241.3 mg magnesium) tablet 400 mg PO BEDTIME 30 Days Qty: 30 6RF Rx Instructions: may hold for loose stools riboflavin (vitamin B2) 400 mg tablet 400 mg PO DAILY 30 Days Qty: 30 6RF cholecalciferol (vitamin D3) 50 mcg (2,000 unit) tablet 50 mcg PO DAILY 90 Days Qty: 90 1RF atorvastatin 20 mg tablet 20 mg PO BEDTIME 90 Days Qty: 90 1RF tramadol 50 mg tablet 50 mg PO BID PRN (Reason: severe pain (scale score 7-10)) 30 Days Qty: 60 0RF Combivent Respimat 20-100 mcg/actuation mist 1 puff PO QID 30 Days Qty: 25 11RF Patient Comments: Pulmo given Emgality Pen 120 mg/mL pen injector 240 mg subcut ONCE 30 Days Qty: 2 0RF Rx Instructions: Loading dose: 120 mg subcu injection x2 in alternate sites (total 240 mg). To be followed by maintenance dose of 120 mg subcu q.month. Nurtec ODT 75 mg tablet,disintegrating 75 mg PO ONCE MDD 1 tab PRN (Reason: migraine headache) 30 Days Qty: 15 6RF Rx Instructions: Prior authorization approved through 04/22/2025 acetaminophen 500 mg tablet 1,000 mg PO TID PRN (Reason: pain) Qty: 20 0RF lidocaine [Lidoderm] 5 % adhesive patch,medicated 1 patch topical DAILY Qty: 30 0RF Rx Instructions: leave on most painful area for up to 12 hrs fluticasone propionate [Flonase Allergy Relief] 50 mcg/actuation spray,suspension 1 spray intranasal BID PRN (Reason: nasal congestion) Qty: 16 0RF Rx Instructions: administer into each nostril meclizine 12.5 mg tablet 12.5 mg PO TID PRN (Reason: dizziness) Qty: 14 0RF albuterol sulfate 90 mcg/actuation HFA aerosol inhaler 2 puff inhalation Q4-6H PRN (Reason: shortness of breath or wheezing) Qty: 6.7 0RF diphenhydramine HCl 25 mg capsule 50 mg PO Q6H PRN (Reason: allergic reaction) Qty: 20 0RF epinephrine [EpiPen 2-Pantera] 0.3 mg/0.3 mL auto-injector 0.3 mg IM Q10M PRN (Reason: anaphylaxis) Qty: 2 0RF Rx Instructions: for 3 doses prednisone 20 mg tablet 20 mg PO DAILY Qty: 10 0RF Eucerin Itch Relief 0.1 % lotion 1 ea topical BID 14 Days Qty: 250 0RF hydroxyzine HCl 50 mg tablet 50 mg PO Q8H PRN (Reason: nausea and vomiting) Qty: 90 1RF hydrocortisone 2.5 % ointment 1 appl topical BID-TID PRN (Reason: itching) Qty: 454 1RF fexofenadine [Gemini Allergy] 180 mg tablet 180 mg PO DAILY Qty: 90 1RF montelukast [Singulair] 10 mg tablet 10 mg PO BEDTIME 30 Days Qty: 30 11RF varenicline tartrate [Chantix Starting Month Box] 0.5 mg (11)- 1 mg (42) tablets,dose pack See Rx Instructions PO PER PKG DIR Qty: 42 0RF Rx Instructions: PO PER PKG DIR fluocinolone acetonide oil [DermOtic Oil] 0.01 % drops 5 drp otic (ears) BID 7 Days Qty: 20 0RF (DME) nebulizers [AeroEclipse II Nebulizer] Misc See Rx Instructions .Route Qty: 1 0RF Rx Instructions: As directed fenofibrate 54 mg tablet 54 mg PO DAILY 90 Days Qty: 90 1RF Pataday Once Daily Relief 0.7 % drops 1 drp ophthalmic (eye) Q24H PRN (Reason: itching) Qty: 5 0RF clonazepam 0.5 mg tablet 0.5 mg PO BID PRN (Reason: anxiety) 30 Days Qty: 60 1RF bupropion HCl [Wellbutrin XL] 150 mg tablet extended release 24 hr 150 mg PO QAM Qty: 30 1RF zolpidem [Ambien] 5 mg tablet 5 mg PO BEDTIME Qty: 30 1RF Interventions: ED Discharge Assessment Last Done: 10/24/24 01:22 Discharge Date/Time: 10/24/24 01:31 Print Language: Korean
[2024-10-24 00:44] VITALS: BP 138/54; PULSE 79
[2024-10-24 00:45] VITALS: BP 146/91; PULSE 80
[2024-10-24 00:46] VITALS: BP 159/93; PULSE 77
[2024-10-24 00:48] VITALS: BP 146/91; PULSE 80; RESP 18; TEMP 36.8; O2SAT 99
[2024-10-24 01:22] VITALS: BP 146/91; PULSE 80; RESP 18; TEMP 36.8; O2SAT 99
== END 2024-10-24 01:31 | disposition home or self-care (01) ==
PROVIDERS: Emergency Provider Internal Medicine
DX: M79.7 Fibromyalgia (principal); F41.9 Anxiety disorder, unspecified; R00.0 Tachycardia, unspecified; M25.512 Pain in left shoulder; I10 Essential (primary) hypertension; E78.5 Hyperlipidemia, unspecified; F17.210 Nicotine dependence, cigarettes, uncomplicated; Z79.899 Other long term (current) drug therapy
CPT/HCPCS: 36415; 71046; 80053; 84484; 85025; 93005; 99283; 99284

== ENCOUNTER → 2024-10-23 22:30 | Outpatient (BNV) | payer OTHER, SELFPAY | PROVIDERS: Emergency Provider Internal Medicine; Visit Provider Radiology Diagnostic Radiology | DX: R07.9 Chest pain, unspecified (principal) | CPT/HCPCS: 71046 ==

== ENCOUNTER → 2024-10-23 22:39 | Outpatient (BNV) | payer OTHER, SELFPAY | PROVIDERS: Emergency Provider Internal Medicine; Visit Provider Internal Medicine | DX: R00.0 Tachycardia, unspecified (principal) | CPT/HCPCS: 93010 ==

== ENCOUNTER 2024-10-28 16:46 | Outpatient (AMB) | payer OTHER, SELFPAY ==
--- NOTE | 2024-10-28 16:53 | MHC.PC.OV ---
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 Accompanied by: Self / Same As Patient Allergies amitriptyline Allergy (Intermediate, Verified 10/28/24 17:17) headache ibuprofen [From Motrin] Allergy (Intermediate, Verified 10/28/24 17:17) ITCHY RASH gabapentin Adverse Reaction (Intermediate, Verified 10/28/24 17:17) vomiting Medication List - Last Reconciled 10/28/24 by Neyda Peres MD acetaminophen 1,000 mg (2 x 500 mg) PO TID PRN albuterol sulfate 90 mcg/actuation 2 puffs inhalation Q4-6H PRN atorvastatin 20 mg PO BEDTIME 90 days blood pressure monitor (Blood Pressure Kit) As directed bupropion HCl XL (Wellbutrin XL) 150 mg PO QAM cane As directed cholecalciferol (vitamin D3) 50 mcg PO DAILY 90 days clonazepam 0.5 mg PO BID PRN 30 days diphenhydramine HCl 50 mg (2 x 25 mg) PO Q6H PRN epinephrine (EpiPen 2-Pantera) 0.3 mg (0.3 mL) IM Q10M PRN fenofibrate 54 mg PO DAILY 90 days fexofenadine (Gemini Allergy) 180 mg PO DAILY fluocinolone acetonide oil 0.01% (DermOtic Oil) 5 drps otic (ears) BID 7 days fluticasone propionate 50 mcg/actuation (Flonase Allergy Relief) 1 spray intranasal BID PRN galcanezumab-gnlm (Emgality Pen) 240 mg (2 mL) subcut ONCE 30 days hydrocortisone 2.5% 1 appl topical BID-TID PRN hydroxyzine HCl 50 mg PO Q8H PRN ipratropium-albuterol 20-100 mcg/actuation (Combivent Respimat) 1 puff PO QID 30 days lidocaine 5% (Lidoderm) 1 patch topical DAILY magnesium oxide 400 mg PO BEDTIME 30 days meclizine 12.5 mg PO TID PRN menthol 0.1% (Eucerin Itch Relief) 1 ea topical BID 14 days montelukast (Singulair) 10 mg PO BEDTIME 30 days naloxone 2 mg (0.08 mL) subcut Q3M 30 days nebulizers (AeroEclipse II Nebulizer) As directed olopatadine 0.7% (Pataday Once Daily Relief) 1 drp ophthalmic (eye) Q24H PRN riboflavin (vitamin B2) 400 mg PO DAILY 30 days rimegepant (Nurtec ODT) 75 mg PO ONCE PRN 30 days MDD 1 tab tramadol 50 mg PO BID PRN 30 days underpads (Bed Underpads) As directed varenicline tartrate (Chantix Starting Month Box) PO PER PKG DIR walker To be use lifetime zolpidem (Ambien) 5 mg PO BEDTIME Tobacco use date assessed: 10/09/24 Dental Screening Dental Screen Date: 06/26/24 HPI HPI Comments History of Present Illness Details The patient is a 53-year-old female presenting with anxiety and panic symptoms. She experiences significant anxiety-related episodes, exacerbated by living alone, alongside insomnia. Symptoms escalated following an instance of perceived life-threatening panic attack previously requiring emergency intervention. The patient encounters hypokalemia intermittently, which necessitates potassium supplementation after previous fluctuations in levels. She describes medication-related side effects including allergies to amitriptyline, ibuprofen, and pregabalin. Persistent hematuria is of concern but yet to be evaluated by urology due to familial commitments precluding prior appointments. Regular use of tramadol is indicated for fibromyalgia-associated pain despite contributory anxiety symptoms. Planned evaluations include CT imaging and mammography for ongoing monitoring and potential symptom correlation with incidental breast findings and pulmonary calcifications. [facility] Medical History (Updated 10/28/24 @ 17:25 by Neyda Peres MD) Moderate recurrent major depression Left sided abdominal pain Generalized pruritus Smoking 1/2 pack a day or less Asthma-COPD overlap syndrome Acute maxillary sinusitis Otitis externa Hospital discharge follow-up Microscopic hematuria Physical exam Goiter Blurry vision Tobacco dependence Has daytime drowsiness Pulmonary nodules Dyspnea Hand pain Skin lesion Leg pain, bilateral Dyslipidemia Epigastric pain Essential hypertension Cervical cancer screening GERD (gastroesophageal reflux disease) HTN (hypertension) Migraine Anxiety Depression Right lower quadrant pain Fibromyalgia Surgical History Previous section History of breast lump/mass excision History of lithotripsy H/O LEEP H/O tubal ligation Family History Father Myocardial infarction Mother Lung cancer Brother Liver cancer Maternal Grandfather Stomach cancer Maternal Grandmother No problems noted. Social History Housing: Apartment Alcohol intake: never Patient Tobacco Use Status: Current someday Tobacco user Tobacco use type: Cigarette Cigarette Packs Per Day: 0.25 Cigarettes Per Day: 3 e-Cigarette/Vaping Use: Never Used Second Hand Smoke Exposure: Yes service: No Current occupational status: disabled Gender identity: Female Cognitive needs: No Hearing needs: No Vision needs: No Female Reproductive History Menstrual Age of Menarche: 9 Questionnaire PHQ-9 Over the last 2 weeks, how often have you been bothered by any of the following problems? 1. Little interest or pleasure in doing things: several days 2. Feeling down, depressed, or hopeless: several days 3. Trouble falling or staying asleep, or sleeping too much: several days 4. Feeling tired or having little energy: more than half the days 5. Poor appetite or overeating: several days 6. Feeling bad about yourself - or that you are a failure or have let yourself or your family down: several days 7. Trouble concentrating on things, such as reading the newspaper or watching television: several days 8. Moving or speaking so slowly that other people could have noticed. Or the opposite - being so fidgety or restless that you have been moving around a lot more than usual: several days 9. Thoughts that you would be better off or of hurting yourself in some way: not at all Total score: 9 Depression Screening Interpretation: Positive Depression Screening Follow-up: Existing condition and Follow-up Visit Requested Depression Screening Done: Yes 93234 - PHQ-9 Billing: Yes Source: Developed by Drs. Sylvester Merlos, Eve Mcclelland, Joby King and colleagues, with an educational pili from [employer]. Thrive Questionnaire Date Thrive assessed: 10/28/24 I am a: Patient What is your living situation today?: I choose not to answer this question Within the past 12 months, did the food you bought not last and you didn't have the money to get more?: Sometimes True Within the past 12 months, did you worry whether your food would run out before you got money to buy more?: Sometimes True Do you have trouble paying for medicines?: No Do you have trouble getting transportation to medical appointments?: Yes Do you have trouble paying your heating and electricity bill?: No Do you have trouble taking care of your child, family member or friend?: No Do you have trouble with day-to-day activities such as bathing, preparing meals, shopping, managing finances, etc.?: Yes Are you currently unemployed and looking for a job?: No Are you interested in more education?: No Please select the resources that you would like help with: Food and Transportation Currently or been in a relationship where the following occur: No concerns reported THRIVE Score: 3 AUDIT C Alcohol Use Questionnaire (AUDIT-C) 1. How often do you have a drink containing alcohol?: Never Total Score: 0 JOHN-7 AMB Questionnaire JOHN-7 Date JOHN - 7 assessed: 10/28/24 Feeling nervous, anxious, or on edge: 2 = More than half the days Not being able to stop or control worryin = Several days Worrying too much about different things: 1 = Several days Trouble relaxin = More than half the days Being so restless that it is hard to sit still: 2 = More than half the days Becoming easily annoyed or irritable: 2 = More than half the days Feeling afraid as if something awful might happen: 2 = More than half the days Total JOHN-7 score (0-4 normal; 5-9 mild; 10-14 moderate; 15-21 severe): 12 Source: Developed by Drs. Sylvester Merlos, Eve Mcclelland, Joby King and colleagues, with an educational pili from [employer]. JOHN-7 Assessment Billing JOHN-7 Assessment Tool: JOHN-7 Assessment 28965 Review of Systems Const All systems reviewed & are unremarkable except as noted in HPI and below Card Denies chest pain at rest, Denies chest pain with activity, Denies edema, Denies irregular heart rhythm, Denies claudication, Denies dyspnea, Denies dyspnea on exertion, Denies orthopnea, Denies paroxysmal nocturnal dyspnea and Denies slow heart rate Resp Denies cough, Denies dyspnea and Denies dyspnea on exertion Physical exam (Primary Care) Vital Signs: Last Vital Signs BP 130/80 10/28/24 16:55 BMI result Body Mass Index 27.6 Tobacco/Smoking Status: Tobacco use Status Tobacco use date assessed 10/09/24 10/28/24 17:06 Patient Tobacco Use Status Current someday Tobacco 10/28/24 17:06 Tobacco use type Cigarette 10/28/24 17:06 e-Cigarette/Vaping Use Never Used 10/28/24 17:06 PHQ-9: PHQ-9 Score PHQ-9: Total score 9 10/28/24 17:35 Depression Screening Interpretation: Positive Depression Screening Follow-up: Existing condition and Follow-up Visit Requested Thrive Assessment: Date of Thrive Assessment Date Thrive assessed 10/28/24 10/28/24 17:06 Currently or been in a relationship where the following occur: No concerns reported Resp Effort & Inspection: normal respiratory effort Auscultation: clear to auscultation bilaterally Cardio Jugular venous distension: no JVD Rate: regular rate Rhythm: regular rhythm Heart sounds: S1 normal heart sound present and S2 normal heart sound present Extrem General: Yes full ROM Results AMB Urinalysis, Automated UA Leukoctes 0 Megan/uL Last Edit by Kamaljit Evans [facility] on 10/28/24 17:36 UA Nitrite Negative Last Edit by Kamaljit Evans [facility] on 10/28/24 17:36 UA Urobilinogen 0 mg/dL Last Edit by Kamaljit Evans [facility] on 10/28/24 17:36 UA Protein 0 mg/dL Last Edit by Kamaljit Evans [facility] on 10/28/24 17:36 UA pH 6.0 Last Edit by Kamaljit Evans [facility] on 10/28/24 17:36 UA Blood 0 Adrián/uL Last Edit by Kamaljit Evans [facility] on 10/28/24 17:36 UA Specific Greenback 1.025 Last Edit by Kamaljit Evans Rosanne on 10/28/24 17:36 UA Ketone Negative Last Edit by Kamaljit Evans Rosanne on 10/28/24 17:36 UA Bilirubin 0 mg/dL Last Edit by Kamaljit Evans A on 10/28/24 17:36 UA Glucose 0 mg/dL Last Edit by LENKA Valderrama on 10/28/24 17:36 Results Reviewed Results Reviewed: Laboratory Last Values Urine pH (Auto) 6.0 10/28/24 17:34 Specific Greenback (Auto) 1.025 10/28/24 17:34 Urine Protein (Auto) 0 mg/dL 10/28/24 17:34 Glucose (UA)(Auto) 0 mg/dL 10/28/24 17:34 Urine Ketones (Auto) Negative 10/28/24 17:34 Urine Blood (Auto) 0 Adrián/uL 10/28/24 17:34 Urine Nitrite (Auto) Negative 10/28/24 17:34 Urine Bilirubin (Auto) 0 mg/dL 10/28/24 17:34 Urine Urobilinogen (Auto) 0 mg/dL 10/28/24 17:34 Leukocyte Esterase (Auto) 0 Megan/uL 10/28/24 17:34 Coding Level of Care Code Est Pt Level 4 (53223) Complex EM visit Add On G2211 Diagnoses Microscopic hematuria R31.29 Moderate recurrent major depression F33.1 Insomnia G47.00 Hypokalemia E87.6 Fibromyalgia M79.7 Additional Codes JOHN-7 Assessment Billing - JOHN-7 Assessment Tool: JOHN-7 Assessment 70793 ([id number]) PHQ-9 - 88345 - PHQ-9 Billing: Yes ([id number]) Time Spent (min) 24 Assessment & Plan Assessment & Plan (1) Microscopic hematuria: Code(s): R31.29 - Other microscopic hematuria Category: Medical (2) Moderate recurrent major depression: Code(s): F33.1 - Major depressive disorder, recurrent, moderate Category: Medical (3) Insomnia: Code(s): G47.00 - Insomnia, unspecified Category: Medical (4) Hypokalemia: Code(s): E87.6 - Hypokalemia Category: Medical (5) Fibromyalgia: Code(s): M79.7 - Fibromyalgia Category: Medical Plan The patient will continue psychiatric care for anxiety and panic disorder, with medications monitored and adjusted as needed. Scheduled imaging will provide further evaluation of lung calcifications and breast nodules. Potassium and vitamin D supplementation is emphasized due to prior hypokalemia. Fibromyalgia management involves careful use of tramadol to minimize adverse symptoms. The patient should reschedule her missed urology appointment to address chronic hematuria. Future visits should assess overall response to current management plan while facilitating ongoing care coordination. Patient was informed and verbally consented to the use of an ambient scribe for clinic note documentation during this visit. During the visit, we reviewed the presenting anxiety and panic symptoms, especially noting the impact of living arrangements on her condition. We discussed the prescribed medications for anxiety and insomnia, emphasizing adherence and potential side effects. Imaging studies, including CT scan and mammography, were reviewed as necessary in ongoing symptom evaluation. We reinforced the importance of potassium supplementation to prevent potential complications from hypokalemia. Fibromyalgia pain management considerations encouraged judicious tramadol use. We have planned further evaluations to address persistent hematuria with a necessary urology consult. The importance of rescheduling previously missed appointments and adhering to follow-ups was communicated to ensure comprehensive care. Orders: Orders AMB Urinalysis Automated Today R30.0 - Dysuria Referrals Urology Referral R31.29 - Other microscopic hematuria Medications: Refilled magnesium oxide may hold for loose stools 400 mg PO BEDTIME 30 tabs 6RF 30 days Discontinued bupropion HCl XL (Wellbutrin XL) Discontinued Reason: Patient Completed Course 150 mg PO QAM 30 tabs 1RF Patient Instructions: - Continue taking prescribed medications as directed for anxiety, insomnia, and fibromyalgia. - Take potassium supplements daily as advised. - Attend scheduled CT, mammography, and follow-up psychiatric appointments. - Monitor for any side effects from medications and report them. - Schedule an appointment with urology for hematuria evaluation. - Limit the use of tramadol to manage fibromyalgia pain without exacerbating anxiety. - Stay engaged socially and reach out for support to help manage anxiety symptoms. - Follow up with scheduled visits to review management and discuss any issues.
[2024-10-28 16:55] VITALS: BP 130/80; BMI 27.6
== END 2024-10-28 17:45 | disposition home or self-care (01) ==
LOC: HO.HMCH 16:47
PROVIDERS: Visit Provider Internal Medicine
DX: R31.29 Other microscopic hematuria (principal); F33.1 Major depressive disorder, recurrent, moderate; G47.00 Insomnia, unspecified; E87.6 Hypokalemia; M79.7 Fibromyalgia; R30.0 Dysuria

== ENCOUNTER → 2024-10-28 16:46 | Outpatient (BNVA) | payer OTHER, SELFPAY | PROVIDERS: Visit Provider Internal Medicine | DX: R31.29 Other microscopic hematuria (principal); F33.1 Major depressive disorder, recurrent, moderate; G47.00 Insomnia, unspecified; E87.6 Hypokalemia; M79.7 Fibromyalgia | CPT/HCPCS: 81003; 96127; 99212 ==

== ENCOUNTER 2024-11-06 13:47 | Outpatient (REF) | payer OTHER, SELFPAY | END 2024-11-06 13:48 | disposition home or self-care (01) | LOC: HO.CT 13:47 | PROVIDERS: PCP Internal Medicine; Visit Provider Physician Assistant Medical | DX: Z13.89 Encounter for screening for other disorder (principal) ==

== ENCOUNTER 2024-11-11 14:06 | Outpatient (AMB) | payer OTHER, SELFPAY ==
--- NOTE | 2024-11-11 15:08 | A.OFFPSYCH_ITS ---
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 Required: Yes Provided:: Language: (Kyrgyz) and Field Logistics Coordinator (Shaniqua [phone]) Type:: Employee Allergies amitriptyline Allergy (Intermediate, Verified 12/06/24 14:11) headache ibuprofen (From Motrin) Allergy (Intermediate, Verified 12/06/24 14:11) ITCHY RASH shrimp Allergy (Mild, Verified 12/06/24 14:11) Unknown seafood Allergy (Verified 12/06/24 14:11) Unknown gabapentin Adverse Reaction (Intermediate, Verified 12/06/24 14:11) vomiting Medication List - Last Reconciled 11/11/24 by Vangie Blanchard, [employer] SET UP OPERATOR acetaminophen 1,000 mg (2 x 500 mg) PO TID PRN albuterol sulfate 90 mcg/actuation 2 puffs inhalation Q4-6H PRN atorvastatin 20 mg PO BEDTIME 90 days blood pressure monitor (Blood Pressure Kit) As directed cane As directed cholecalciferol (vitamin D3) 50 mcg PO DAILY 90 days clonazepam 0.5 mg PO BID PRN 30 days diphenhydramine HCl 50 mg (2 x 25 mg) PO Q6H PRN epinephrine (EpiPen 2-Pantera) 0.3 mg (0.3 mL) IM Q10M PRN fenofibrate 54 mg PO DAILY 90 days fexofenadine (Gemini Allergy) 180 mg PO DAILY fluocinolone acetonide oil 0.01% (DermOtic Oil) 5 drps otic (ears) BID 7 days fluticasone propionate 50 mcg/actuation (Flonase Allergy Relief) 1 spray intranasal BID PRN galcanezumab-gnlm (Emgality Pen) 120 mg subcut ONCE 30 days hydrocortisone 2.5% 1 appl topical BID-TID PRN hydroxyzine HCl 50 mg PO Q8H PRN ipratropium-albuterol 20-100 mcg/actuation (Combivent Respimat) 1 puff PO QID 30 days lidocaine 5% (Lidoderm) 1 patch topical DAILY magnesium oxide 400 mg PO BEDTIME 30 days meclizine 12.5 mg PO TID PRN menthol 0.1% (Eucerin Itch Relief) 1 ea topical BID 14 days montelukast (Singulair) 10 mg PO BEDTIME 30 days naloxone 2 mg (0.08 mL) subcut Q3M 30 days nebulizers (AeroEclipse II Nebulizer) As directed olopatadine 0.7% (Pataday Once Daily Relief) 1 drp ophthalmic (eye) Q24H PRN riboflavin (vitamin B2) 400 mg PO DAILY 30 days rimegepant (Nurtec ODT) 75 mg PO ONCE PRN 30 days MDD 1 tab tramadol 50 mg PO BID PRN 30 days underpads (Bed Underpads) As directed varenicline tartrate (Chantix Starting Month Box) PO PER PKG DIR walker To be use lifetime zolpidem (Ambien) 5 mg PO BEDTIME HPI- Psychiatric Chief Complaint: follow up HPI Narrative: Pt is here for follow up fro depression and anxiety. she reports continued symptoms. no change. she did not take the wellbutrin because she said she read it wasn't for depression. she takes the clonazepam prn but only after pnic symptoms start. she says the ambien did not help at all; she continues to go to the ED for panic attacks. she is having a work up for lung nodules and questionable mammogram results. she says she did not follow directions for the CT scan so the y had to cancel it and she has not followed up, she says she continues to have panic symptoms; she has quit smoking but says she feels miserale without the cigarettes; she is wating for a therapist. PHQ9=8 and GAD7=8 Past Psychiatric History: many years of depression and anxiety used to go to [facility] for psychiatry and therapy Subjective Subjective Subjective Medication Compliance: No Side effects from medications: No Review of Systems Medical Review of Systems: unchanged Mental Status Exam Mental Status Exam Patient Appearance: Well Grooomed Patient Orientation: Person, Place, Time and Situation Level of Consciousness: Awake Patient Behavior: Appropriate Mood Description: Anxious Affect Description: Anxious Patient Cognition Impaired: No Ability to Follow Directions: Fair Speech Pattern: Clear Memory Description: Intact Hallucinations: None Delusions: Not Present Thought Process: Intact and Distracted Thought Content: positive for Intact and positive for Loose Associations Judgement: Fair Assessment and Plan Assessment & Plan (1) Moderate recurrent major depression: Status: Acute Code(s): F33.1 - Major depressive disorder, recurrent, moderate (2) Generalized anxiety disorder: Status: Acute Code(s): F41.1 - Generalized anxiety disorder (3) Panic disorder: Status: Acute Code(s): F41.0 - Panic disorder [episodic paroxysmal anxiety] Plan trial of paroxetine 10 mg daily clonazepam 0.5 mg BID Counseling and coordination of Care Pt. Self Management counseling: Maintenance-social rhythm, Mindfulness, Mod caffeine/ETOH intake, Sleep hygiene and General coping skills Medication management counseling: Effectiveness, Side effects, Dosing range, Duration and Drug interaction Diagnosis and Prognosis Counseling: Accuracy of diagnosis, Prognosis over time, Impact of diagnosis on life functions, Problematic behaviors secondary to diagnosis and Adequacy of current interventions Details: I spent [] minutes reviewing the record, seeing the patient and documenting in the medical record. Counseling provided to the patient/caregiver as outlined below. Addressed patient/caregiver concerns regarding current medication regime including effective adherence. Addressed patient/caregiver concerns regarding diagnosis and prognosis including accuracy of diagnosis, prognosis over time, impact of diagnosis. Addressed patient/caregiver concerns regarding impact of recent stressors. [facility] Medical History Moderate recurrent major depression Left sided abdominal pain Generalized pruritus Smoking 1/2 pack a day or less Asthma-COPD overlap syndrome Acute maxillary sinusitis Otitis externa Hospital discharge follow-up Microscopic hematuria Physical exam Goiter Blurry vision Tobacco dependence Has daytime drowsiness Pulmonary nodules Dyspnea Hand pain Skin lesion Leg pain, bilateral Dyslipidemia Epigastric pain Essential hypertension Cervical cancer screening GERD (gastroesophageal reflux disease) HTN (hypertension) Migraine Anxiety Depression Right lower quadrant pain Fibromyalgia Surgical History Previous section History of breast lump/mass excision History of lithotripsy H/O LEEP H/O tubal ligation Family History Father Myocardial infarction Mother Lung cancer Brother Liver cancer Maternal Grandfather Stomach cancer Maternal Grandmother No problems noted. Social History Housing: Apartment Alcohol intake: never Patient Tobacco Use Status: Current someday Tobacco user Tobacco use type: Cigarette Cigarette Packs Per Day: 0.25 Cigarettes Per Day: 3 e-Cigarette/Vaping Use: Never Used Second Hand Smoke Exposure: Yes service: No Current occupational status: disabled Gender identity: Female Cognitive needs: No Hearing needs: No Vision needs: No Social History: lives alone; has BF of 25 yrs but conflicted relationship; has adult children who try to be supportive Substance History: none Trauma History: yes Coding Level of Care Code Est Pt Level 4 (96698) Diagnoses Moderate recurrent major depression F33.1 Generalized anxiety disorder F41.1 Panic disorder F41.0
== END 2024-11-11 15:14 | disposition home or self-care (01) ==
LOC: HO.HOP 14:06
PROVIDERS: PCP Internal Medicine; Visit Provider Clinical Nurse Specialist Psychiatric/Mental Health
DX: F33.1 Major depressive disorder, recurrent, moderate (principal); F41.1 Generalized anxiety disorder; F41.0 Panic disorder [episodic paroxysmal anxiety]
CPT/HCPCS: 99214

== ENCOUNTER 2024-11-11 14:06 | Outpatient (REF) | payer OTHER, SELFPAY ==
[2024-11-11 15:03] LABS: MANUAL DIFF FLAG NO
[2024-11-11 15:36] LABS: Basophils Absolute Auto 0.1 X10*3/uL (0.0-0.2); Basophils Percent Auto 0.6 % (0-2); Eosinophils Absolute Auto 0.1 X10*3/uL (0.0-0.4); Eosinophils Percent Auto 0.9 % (0-4); Hematocrit 37.2 % (37.0-47.0); Hemoglobin 12.1 g/dl (12.0-16.0); Imm Gran Abs Auto 0.04 X10*3/uL (0.00-0.03); Imm Gran Pct Auto 0.4 % (0.0-0.4); Lymphocytes Percent Auto 38.5 % (20-40); Mean Corpuscular HGB Conc 32.5 g/dl (31.0-35.0); Mean Corpuscular Hemoglobin 26.5 pg (27.0-33.0); Mean Corpuscular Volume 81.6 fL (80.0-98.0); Mean Platelet Volume 10.4 fL (9.4-12.3); Monocytes Absolute Auto 0.7 X10*3/uL (0.1-1.2); Monocytes Percent Auto 6.8 % (2-11); Neutrophils Absolute Auto 5.5 x10*3/uL (2.0-8.3); Neutrophils Percent Auto 52.8 % (45-73); Platelet Count 312 X10*3/uL (160-400); Red Blood Count 4.56 X10*6/uL (4.20-5.50); Red Cell Distribution Width 14.1 % (11.0-16.0); White Blood Count 10.3 X10*3/uL (4.8-10.8)
[2024-11-11 15:49] LABS: Estimated Average Glucose 108 mg/dL; Hemoglobin A1c % 5.4 % (<6.0)
[2024-11-11 15:55] LABS: Appearance Urine Cloudy; Color Urine Yellow; Glucose Urine UA Negative (Negative); Leukocyte Esterase Urine Negative (Negative); Nitrite Urine Negative (Negative); PH 5.5 (5.0-9.0); Specific Gravity - Urine 1.025 (1.005-1.025); UMIC TRIGGER UACC YES; Urine Blood Trace (Negative); Urine Ketones Trace mg/dL (Negative); Urine Protein Negative (Neg-Trace)
[2024-11-11 16:10] LABS: Bacteria Urine None Seen (None Seen); Calcium Oxalate Crystals Urine Present; Hyaline Casts Urine 0-2 /LPF (0-2); WBC Urine 0-5 /HPF (0-5)
[2024-11-11 16:21] LABS: Alanine Aminotransferase 15 U/L (0-31); Albumin Level 4.4 g/dL (3.5-5.0); Alkaline Phosphatase 105 U/L (39-117); Anion Gap 13 (12-20); Aspartate Amino Transferase 16 U/L (5-31); Bilirubin Direct 0.1 mg/dL (0.0-0.5); Bilirubin Total 0.4 mg/dL (0.0-1.0); Blood Urea Nitrogen 24 mg/dL (9-16); C Reactive Protein 0.37 mg/dL (< or = 0.50); Calcium 9.5 mg/dL (8.4-10.2); Carbon Dioxide 29 mmol/L (22-29); Chloride 106 mmol/L (96-108); Cholesterol 154 mg/dL (<200); Estimated Glomerular Filt Rate 58; Glucose Fasting 69 mg/dL (60-99); Glucose Random 68 mg/dL (60-115); HDL Cholesterol 44 mg/dL (>40); Iron 63 mcg/dL (30-160); LDL Cholesterol Calculated 64 mg/dL (<100); Percent Iron Saturation 24 % (15-50); Potassium 3.2 mmol/L (3.3-5.1); Sodium 145 mmol/L (135-145); Total Iron Binding Capacity 262 mcg/dL (228-428); Total Protein 7.3 g/dL (6.5-8.0); Triglycerides 232 mg/dL (<150); Unsaturated Iron Binding 199 ug/dL
[2024-11-11 16:36] LABS: Vitamin D 25-OH Total 41.1 ng/mL (>30)
[2024-11-11 16:51] LABS: Vitamin B12 407 pg/mL (200-900)
== END 2024-11-11 14:07 | disposition home or self-care (01) ==
LOC: HO.LAB 14:06
PROVIDERS: PCP Internal Medicine; Visit Provider Physician Assistant Medical
DX: Z00.00 Encounter for general adult medical examination without abnormal findings (principal); E53.8 Deficiency of other specified B group vitamins; D64.9 Anemia, unspecified; E78.5 Hyperlipidemia, unspecified; E55.9 Vitamin D deficiency, unspecified; J44.89 Other specified chronic obstructive pulmonary disease
CPT/HCPCS: 36415; 80053; 80061; 81001; 82248; 82306; 82607; 82746; 83036; 83540; 83735; 85025; 86140

== ENCOUNTER 2024-11-22 01:48 | Emergency (ER) | payer OTHER, SELFPAY ==
[2024-11-22 01:52] VITALS: BP 148/82; PULSE 86; RESP 16; TEMP 36.8; O2SAT 99; BMI 27.7
== END 2024-11-22 05:01 | disposition left against medical advice (07) ==
PROVIDERS: Emergency Provider Emergency Medicine; PCP Internal Medicine
DX: Z53.21 Procedure and treatment not carried out due to patient leaving prior to being seen by health care provider (principal); R51.9 Headache, unspecified; R11.0 Nausea
CPT/HCPCS: 99281

== ENCOUNTER 2024-11-23 15:43 | Emergency (ER) | payer OTHER, SELFPAY ==
--- NOTE | ~2024-11-23 | XR_ITS ---
CLINICAL HISTORY: cp Single view of the chest. COMPARISON: XR chest dated 10/23/24 at 22:39 EDT FINDINGS: Normal heart and mediastinal contours. No consolidation. Calcified granuloma in the right midlung, stable. No pleural effusion or pneumothorax. No fracture identified. IMPRESSION: 1. No consolidation. This document has been electronically signed by: Paul Ruby MD on 11/23/2024 16:46:24
--- NOTE | 2024-11-23 15:46 | ECG_ITS ---
Test Reason : cp Blood Pressure : */* mmHG Vent. Rate : 96 BPM Atrial Rate : 96 BPM P-R Int : 124 ms QRS Dur : 74 ms QT Int : 350 ms P-R-T Axes : 24 44 48 degrees QTcB Int : 442 ms Normal sinus rhythm Nonspecific ST abnormality Abnormal ECG When compared with ECG of 23-Oct-2024 22:39, Nonspecific T wave abnormality no longer evident in Inferior leads Referred By: Crissy Yang Electronically Signed By: MARILU MANN MD
[2024-11-23 16:06] VITALS: BP 120/89; PULSE 93; RESP 18; TEMP 36.6; O2SAT 98; BMI 27.6
--- NOTE | 2024-11-23 16:07 | ED.CHESTPAIN ---
HPI - Chest Pain General Stated Complaint: headache, neck pain, dizzy, chest pain Related Data Previous Rx's ?Medication ?Instructions ?Recorded cane #1 ea 09/06/22 acetaminophen 500 mg tablet 1,000 mg (2 x 500 mg) PO TID PRN 10/07/22 pain #20 tabs underpads (Bed Underpads) #100 ea 03/28/23 walker #1 ea 03/28/23 meclizine 12.5 mg tablet 12.5 mg PO TID PRN dizziness #14 11/21/23 tabs lidocaine 5 % topical patch 1 patch topical DAILY #30 ea 01/05/24 (Lidoderm) naloxone 10 mg/0.4 mL 2 mg (0.08 mL) subcut Q3M 30 days 01/09/24 injection,auto-injector #4 mL fluocinolone acetonide oil 0.01 % 5 drp otic (ears) BID 7 days #20 mL 04/03/24 ear drops (DermOtic Oil) nebulizers (AeroEclipse II #1 ea 04/03/24 Nebulizer) riboflavin (vitamin B2) 400 mg 400 mg PO DAILY 30 days #30 tabs 04/16/24 tablet montelukast 10 mg tablet 10 mg PO BEDTIME 30 days #30 tabs 04/22/24 (Singulair) varenicline tartrate 0.5 mg (11)-1 See Rx Instructions PO PER PKG DIR 04/22/24 mg (42) tablets in a dose pack #42 ea (Chantix Starting Month Box) cholecalciferol (vitamin D3) 50 50 mcg PO DAILY 90 days #90 tabs 04/24/24 mcg (2,000 unit) tablet olopatadine 0.7 % eye drops 1 drp ophthalmic (eye) Q24H PRN 08/11/24 (Pataday Once Daily Relief) itching #5 mL fluticasone propionate 50 1 spray intranasal BID PRN nasal 09/21/24 mcg/actuation nasal congestion #16 grams spray,suspension (Flonase Allergy Relief) atorvastatin 20 mg tablet 20 mg PO BEDTIME 90 days #90 tabs 09/22/24 albuterol sulfate 90 mcg/actuation 2 puff inhalation Q4-6H PRN 10/03/24 aerosol inhaler shortness of breath or wheezing #6.7 grams diphenhydramine HCl 25 mg capsule 50 mg (2 x 25 mg) PO Q6H PRN 10/06/24 allergic reaction #20 caps epinephrine 0.3 mg/0.3 mL 0.3 mg (0.3 mL) IM Q10M PRN 10/06/24 injection, auto-injector (EpiPen anaphylaxis #2 ea 2-Pantera) menthol 0.1 % lotion (Eucerin Itch 1 ea topical BID 14 days #250 mL 10/06/24 Relief) fexofenadine 180 mg tablet 180 mg PO DAILY #90 tabs 10/09/24 (Gemini Allergy) hydrocortisone 2.5 % topical 1 appl topical BID-TID PRN itching 10/09/24 ointment #454 grams hydroxyzine HCl 50 mg tablet 50 mg PO Q8H PRN nausea and 10/09/24 vomiting #90 tabs clonazepam 0.5 mg tablet 0.5 mg PO BID PRN anxiety 30 days 10/16/24 #60 tabs zolpidem 5 mg tablet (Ambien) 5 mg PO BEDTIME #30 tabs 10/16/24 ipratropium 20 mcg-albuterol 100 1 puff PO QID 30 days #25 mL 10/21/24 mcg/actuation mist for inhalation (Combivent Respimat) rimegepant 75 mg disintegrating 75 mg PO ONCE PRN migraine 10/24/24 tablet (Nurtec ODT) headache 30 days #15 tabs magnesium oxide 400 mg (241.3 mg 400 mg PO BEDTIME 30 days #30 tabs 10/28/24 magnesium) tablet tramadol 50 mg tablet 50 mg PO BID PRN severe pain 11/03/24 (scale score 7-10) 30 days #60 tabs fenofibrate 54 mg tablet 54 mg PO DAILY 90 days #90 tabs 11/06/24 potassium chloride 20 mEq oral 20 meq PO DAILY 2 days #2 ea 11/11/24 packet blood pressure monitor (Blood #1 ea 11/21/24 Pressure Kit) galcanezumab-gnlm 120 mg/mL 120 mg subcut ONCE 30 days #1 mL 11/23/24 subcutaneous pen injector (Emgality Pen) Allergies Allergy/AdvReac Type Severity Reaction Status Date / Time amitriptyline Allergy Intermediate headache Verified 11/23/24 16:09 ibuprofen [From Motrin] Allergy Intermediate ITCHY RASH Verified 11/23/24 16:09 seafood Allergy Unknown Verified 11/23/24 16:09 gabapentin AdvReac Intermediate vomiting Verified 11/23/24 16:09 PMFSH Past Medical History Medical History Moderate recurrent major depression Left sided abdominal pain Generalized pruritus Smoking 1/2 pack a day or less Asthma-COPD overlap syndrome Acute maxillary sinusitis Otitis externa Hospital discharge follow-up Microscopic hematuria Physical exam Goiter Blurry vision Tobacco dependence Has daytime drowsiness Pulmonary nodules Dyspnea Hand pain Skin lesion Leg pain, bilateral Dyslipidemia Epigastric pain Essential hypertension Cervical cancer screening GERD (gastroesophageal reflux disease) HTN (hypertension) Migraine Anxiety Depression Right lower quadrant pain Fibromyalgia Surgical History Previous section History of breast lump/mass excision History of lithotripsy H/O LEEP H/O tubal ligation Family History Family History Father Myocardial infarction Mother Lung cancer Brother Liver cancer Maternal Grandfather Stomach cancer Maternal Grandmother No problems noted. Social History Social History Housing: Apartment Alcohol intake: never Patient Tobacco Use Status: Current someday Tobacco user Tobacco use type: Cigarette Cigarette Packs Per Day: 0.25 Cigarettes Per Day: 3 e-Cigarette/Vaping Use: Never Used Second Hand Smoke Exposure: Yes service: No Current occupational status: disabled Gender identity: Female Cognitive needs: No Hearing needs: No Vision needs: No Course Course Course Narrative: This is a Rapid Medical Exam performed in triage by Crissy Yang PA-C. Full HPI, ROS and PE to be performed by primary ED provider. 53 yo F w/PMHx anemia, asthma/COPD, migraine, anxiety, polyarthralgia, HLD, presenting to the ED c/o SY, chest pain, dizziness x 2 days. PE: NAD, nontoxic appearing, no respiratory distress, talking in complete sentences Plan: EKG, labs, CXR, orthostatics Discharge Plan Discharge Prescriptions: No Action (DME) cane Device See Rx Instructions .Route Qty: 1 0RF Rx Instructions: As directed (DME) walker Misc See Rx Instructions .Route Qty: 1 0RF Rx Instructions: To be use lifetime (DME) underpads [Bed Underpads] Pad See Rx Instructions .Route Qty: 100 0RF Rx Instructions: As directed naloxone 10 mg/0.4 mL auto-injector 2 mg subcut Q3M 30 Days Qty: 4 0RF Rx Instructions: until desired response riboflavin (vitamin B2) 400 mg tablet 400 mg PO DAILY 30 Days Qty: 30 6RF cholecalciferol (vitamin D3) 50 mcg (2,000 unit) tablet 50 mcg PO DAILY 90 Days Qty: 90 1RF atorvastatin 20 mg tablet 20 mg PO BEDTIME 90 Days Qty: 90 1RF Combivent Respimat 20-100 mcg/actuation mist 1 puff PO QID 30 Days Qty: 25 11RF Patient Comments: Pulmo given Nurtec ODT 75 mg tablet,disintegrating 75 mg PO ONCE MDD 1 tab PRN (Reason: migraine headache) 30 Days Qty: 15 6RF Rx Instructions: Prior authorization approved through 04/22/2025 tramadol 50 mg tablet 50 mg PO BID PRN (Reason: severe pain (scale score 7-10)) 30 Days Qty: 60 0RF fenofibrate 54 mg tablet 54 mg PO DAILY 90 Days Qty: 90 1RF potassium chloride 20 mEq packet 20 meq PO DAILY 2 Days Qty: 2 0RF (DME) blood pressure monitor [Blood Pressure Kit] Kit See Rx Instructions .ROUTE .MEDSUPPLY Qty: 1 0RF Rx Instructions: As directed Emgality Pen 120 mg/mL pen injector 120 mg subcut ONCE 30 Days Qty: 1 6RF Rx Instructions: Maintenance dose of 120 mg subcu q.month. acetaminophen 500 mg tablet 1,000 mg PO TID PRN (Reason: pain) Qty: 20 0RF lidocaine [Lidoderm] 5 % adhesive patch,medicated 1 patch topical DAILY Qty: 30 0RF Rx Instructions: leave on most painful area for up to 12 hrs fluticasone propionate [Flonase Allergy Relief] 50 mcg/actuation spray,suspension 1 spray intranasal BID PRN (Reason: nasal congestion) Qty: 16 0RF Rx Instructions: administer into each nostril meclizine 12.5 mg tablet 12.5 mg PO TID PRN (Reason: dizziness) Qty: 14 0RF albuterol sulfate 90 mcg/actuation HFA aerosol inhaler 2 puff inhalation Q4-6H PRN (Reason: shortness of breath or wheezing) Qty: 6.7 0RF diphenhydramine HCl 25 mg capsule 50 mg PO Q6H PRN (Reason: allergic reaction) Qty: 20 0RF epinephrine [EpiPen 2-Pantera] 0.3 mg/0.3 mL auto-injector 0.3 mg IM Q10M PRN (Reason: anaphylaxis) Qty: 2 0RF Rx Instructions: for 3 doses Eucerin Itch Relief 0.1 % lotion 1 ea topical BID 14 Days Qty: 250 0RF hydroxyzine HCl 50 mg tablet 50 mg PO Q8H PRN (Reason: nausea and vomiting) Qty: 90 1RF hydrocortisone 2.5 % ointment 1 appl topical BID-TID PRN (Reason: itching) Qty: 454 1RF fexofenadine [Gemini Allergy] 180 mg tablet 180 mg PO DAILY Qty: 90 1RF magnesium oxide 400 mg (241.3 mg magnesium) tablet 400 mg PO BEDTIME 30 Days Qty: 30 6RF Rx Instructions: may hold for loose stools montelukast [Singulair] 10 mg tablet 10 mg PO BEDTIME 30 Days Qty: 30 11RF varenicline tartrate [Chantix Starting Month Box] 0.5 mg (11)- 1 mg (42) tablets,dose pack See Rx Instructions PO PER PKG DIR Qty: 42 0RF Rx Instructions: PO PER PKG DIR fluocinolone acetonide oil [DermOtic Oil] 0.01 % drops 5 drp otic (ears) BID 7 Days Qty: 20 0RF (DME) nebulizers [AeroEclipse II Nebulizer] Misc See Rx Instructions .Route Qty: 1 0RF Rx Instructions: As directed Pataday Once Daily Relief 0.7 % drops 1 drp ophthalmic (eye) Q24H PRN (Reason: itching) Qty: 5 0RF clonazepam 0.5 mg tablet 0.5 mg PO BID PRN (Reason: anxiety) 30 Days Qty: 60 1RF zolpidem [Ambien] 5 mg tablet 5 mg PO BEDTIME Qty: 30 1RF Print Language: Arabic
[2024-11-23 16:25] LABS: MANUAL DIFF FLAG NO
[2024-11-23 16:36] LABS: Basophils Absolute Auto 0.1 X10*3/uL (0.0-0.2); Basophils Percent Auto 0.7 % (0-2); Eosinophils Absolute Auto 0.1 X10*3/uL (0.0-0.4); Eosinophils Percent Auto 1.7 % (0-4); Hematocrit 38.4 % (37.0-47.0); Hemoglobin 12.5 g/dl (12.0-16.0); Imm Gran Abs Auto 0.02 X10*3/uL (0.00-0.03); Imm Gran Pct Auto 0.2 % (0.0-0.4); Lymphocytes Absolute Auto 2.1 X10*3/uL (1.2-4.9); Lymphocytes Percent Auto 26.1 % (20-40); Mean Corpuscular HGB Conc 32.6 g/dl (31.0-35.0); Mean Corpuscular Hemoglobin 26.4 pg (27.0-33.0); Mean Corpuscular Volume 81.2 fL (80.0-98.0); Mean Platelet Volume 10.2 fL (9.4-12.3); Monocytes Absolute Auto 0.5 X10*3/uL (0.1-1.2); Monocytes Percent Auto 5.9 % (2-11); Neutrophils Absolute Auto 5.3 x10*3/uL (2.0-8.3); Neutrophils Percent Auto 65.4 % (45-73); Platelet Count 295 X10*3/uL (160-400); Red Blood Count 4.73 X10*6/uL (4.20-5.50); Red Cell Distribution Width 14.2 % (11.0-16.0); White Blood Count 8.2 X10*3/uL (4.8-10.8)
[2024-11-23 16:46] LABS: Alanine Aminotransferase 16 U/L (0-31); Albumin Level 4.4 g/dL (3.5-5.0); Alkaline Phosphatase 108 U/L (39-117); Anion Gap 12 (12-20); Aspartate Amino Transferase 21 U/L (5-31); Bilirubin Direct 0.1 mg/dL (0.0-0.5); Bilirubin Total 0.4 mg/dL (0.0-1.0); Blood Urea Nitrogen 18 mg/dL (9-16); Calcium 9.5 mg/dL (8.4-10.2); Carbon Dioxide 27 mmol/L (22-29); Chloride 107 mmol/L (96-108); Creatinine Clr Calc Pharmacy 56.4; Estimated Glomerular Filt Rate 59; Glucose Random 89 mg/dL (60-115); Magnesium 1.7 mg/dL (1.6-2.6); Potassium 3.5 mmol/L (3.3-5.1); Sodium 142 mmol/L (135-145); Total Protein 7.4 g/dL (6.5-8.0)
[2024-11-23 16:54] VITALS: BP 123/79; PULSE 79; RESP 18; TEMP 36.9; O2SAT 97
[2024-11-23 16:54] LABS: Troponin-I High Sensitivity < 2.7 ng/L (<3.5-17.0)
[2024-11-23 17:08] VITALS: BP 132/86; PULSE 81
[2024-11-23 17:09] VITALS: BP 140/91; PULSE 81
[2024-11-23 17:09] LABS: Influenza A PCR NEGATIVE (Negative); Influenza B PCR NEGATIVE (Negative); Resp Syncy Virus RNA Qual PCR NEGATIVE (Negative); SARS COV2 PCR INHOUSE NEGATIVE (Negative)
[2024-11-23 17:10] VITALS: BP 128/94; PULSE 90
--- NOTE | 2024-11-23 17:16 | PC.NURSE ---
Patient A&O x 3. Patient bermudian speaking but can speak some salvadorean. PMH anemia, COPD, migraine, anxiety, and polyarthralgia. Patient presents to ED c/o right sided chest pain rated 7/10 and headache rated 10/10, c/p pain radiates down left arm, headache focuses on occipital lobe toward the right. Pain started two days ago and pain hasnt subsided. C/o nausea no vomiting, dizziness, denies LOC, denies injury. CXR performed no consolidation noted. VSS and up to date. Plan of care on going
[2024-11-23 18:32] VITALS: BP 135/89; PULSE 81; RESP 18; TEMP 36.7; O2SAT 97
[2024-11-23 18:41] LABS: Appearance Urine Clear; Color Urine Yellow; Glucose Urine UA Negative (Negative); Leukocyte Esterase Urine Negative (Negative); Nitrite Urine Negative (Negative); UMIC TRIGGER UACC YES; Urine Blood Trace (Negative); Urine Ketones Negative (Negative); Urine Protein Negative (Neg-Trace)
[2024-11-23 18:46] LABS: Bacteria Urine None Seen (None Seen); Hyaline Casts Urine 0-2 /LPF (0-2); WBC Urine 0-5 /HPF (0-5)
--- NOTE | 2024-11-23 19:26 | PC.NURSE ---
family at bedside. patient expresses waiting too long and wanting to go to [facility]. dizziness resolved, still with migraine. pt getting dressed when this nurse entered room, ambulates herself steadily, no c/o other symptoms at this time.
--- NOTE | 2024-11-23 20:10 | PC.NURSE ---
pt left from ED room 5 at 19:30 stating she does not wish to wait any longer to be seen by ED provider. LWCT. primary RN renato was made aware.
== END 2024-11-23 19:30 | disposition left against medical advice (07) ==
PROVIDERS: Physician Assistant; Emergency Provider Emergency Medicine; PCP Internal Medicine
DX: R51.9 Headache, unspecified (principal); M54.2 Cervicalgia; R42 Dizziness and giddiness; R07.9 Chest pain, unspecified; Z03.818 Encounter for observation for suspected exposure to other biological agents ruled out; Z53.21 Procedure and treatment not carried out due to patient leaving prior to being seen by health care provider; I10 Essential (primary) hypertension; E78.5 Hyperlipidemia, unspecified; F17.210 Nicotine dependence, cigarettes, uncomplicated; Z79.02 Long term (current) use of antithrombotics/antiplatelets; Z79.899 Other long term (current) drug therapy
CPT/HCPCS: 0241U; 36415; 71045; 80048; 80076; 81001; 83735; 84484; 85025; 93005; 99281; 99285

== ENCOUNTER → 2024-11-23 15:46 | Outpatient (BNV) | payer OTHER, SELFPAY | PROVIDERS: Emergency Provider Emergency Medicine; PCP Internal Medicine; Visit Provider Internal Medicine Cardiovascular Disease | DX: R94.31 Abnormal electrocardiogram [ECG] [EKG] (principal); R07.9 Chest pain, unspecified | CPT/HCPCS: 93010 ==

== ENCOUNTER → 2024-11-23 16:10 | Outpatient (BNV) | payer OTHER, SELFPAY | PROVIDERS: PCP Internal Medicine; Visit Provider Radiology Diagnostic Radiology | DX: R07.9 Chest pain, unspecified (principal) | CPT/HCPCS: 71045 ==

== ENCOUNTER 2024-11-26 13:31 | Outpatient (AMB) | payer OTHER, SELFPAY ==
--- NOTE | 2024-11-26 13:45 | A.OFFVIS_ITS ---
Vital Signs 11/26/24 13:54 BP 130/78 Pulse 83 Pulse Source Pulse Oximeter Pulse Oximetry (%) 99 Oxygen Delivery Method Room Air Intake Visit Reasons: 6 mo follow up Intake Note: Patient presents follow up for chronic migraine. Clerk Specialist Required: No Clerk Specialist Name: Daughter Interpreted Accompanied by: Daughter Allergies amitriptyline Allergy (Intermediate, Verified 11/26/24 13:48) headache ibuprofen [From Motrin] Allergy (Intermediate, Verified 11/26/24 13:48) ITCHY RASH shrimp Allergy (Mild, Verified 11/26/24 13:53) Unknown seafood Allergy (Verified 11/26/24 13:48) Unknown gabapentin Adverse Reaction (Intermediate, Verified 11/26/24 13:48) vomiting Medication List - Last Reconciled 11/26/24 by MESSI Montilla acetaminophen 1,000 mg (2 x 500 mg) PO TID PRN albuterol sulfate 90 mcg/actuation 2 puffs inhalation Q4-6H PRN atorvastatin 20 mg PO BEDTIME 90 days blood pressure monitor (Blood Pressure Kit) As directed cane As directed cholecalciferol (vitamin D3) 50 mcg PO DAILY 90 days clonazepam 0.5 mg PO BID PRN 30 days diphenhydramine HCl 50 mg (2 x 25 mg) PO Q6H PRN epinephrine (EpiPen 2-Pantera) 0.3 mg (0.3 mL) IM Q10M PRN fenofibrate 54 mg PO DAILY 90 days fexofenadine (Gemini Allergy) 180 mg PO DAILY fluocinolone acetonide oil 0.01% (DermOtic Oil) 5 drps otic (ears) BID 7 days fluticasone propionate 50 mcg/actuation (Flonase Allergy Relief) 1 spray intranasal BID PRN galcanezumab-gnlm (Emgality Pen) 120 mg subcut ONCE 30 days hydrocortisone 2.5% 1 appl topical BID-TID PRN hydroxyzine HCl 50 mg PO Q8H PRN ipratropium-albuterol 20-100 mcg/actuation (Combivent Respimat) 1 puff PO QID 30 days lidocaine 5% (Lidoderm) 1 patch topical DAILY lidocaine HCl 2% (Lidocaine Viscous) 1 appl topical QID PRN 30 days magnesium oxide 400 mg PO BEDTIME 30 days meclizine 12.5 mg PO TID PRN menthol 0.1% (Eucerin Itch Relief) 1 ea topical BID 14 days montelukast (Singulair) 10 mg PO BEDTIME 30 days naloxone 2 mg (0.08 mL) subcut Q3M 30 days nebulizers (AeroEclipse II Nebulizer) As directed olopatadine 0.7% (Pataday Once Daily Relief) 1 drp ophthalmic (eye) Q24H PRN potassium chloride 20 mEq PO DAILY 2 days riboflavin (vitamin B2) 400 mg PO DAILY 30 days rimegepant (Nurtec ODT) 75 mg PO ONCE PRN 30 days MDD 1 tab tramadol 50 mg PO BID PRN 30 days underpads (Bed Underpads) As directed varenicline tartrate (Chantix Starting Month Box) PO PER PKG DIR walker To be use lifetime zolpidem (Ambien) 5 mg PO BEDTIME HPI Comments Details: 52-yr-old female presents for f/u of headache disorder. Patient is accompanied by her daughter. Patient reports she has had multiple ER visits in the last 6 months- at both [facility] and [facility], often for worsening occipital region headaches, which are associated with neck pain, neck tightness, dizziness, off-balance sensation, nausea, anorexia. Notes when the headaches are worse, she is not eating or drinking very well. She notes she is having almost daily migraine attacks. Recent head CT- remarkable Previous C-spine XR with flexion-extension was normal. Interval labs show intermittent mild hypokalemia. She has started Nurtec, which does not help the occipital headache, but is helpful for the migraine. She has not started Emgality- however she has received it. She had come into the office several months ago for injection training, but she had symptoms of a URI/COVID, and we ask patient to hold starting Emgality until her respiratory symptoms resolved. She has been picking up her Emgality and storing in the Fridge since. Baseline migraine characteristics: Initially right-sided, but over time became left sided or holocranial and face pain. Headaches are a/w blurry vision, Ear pain, skull bone pain, allodynia, running numbness/tinging over frontal/top of head, Nausea, Light Sensitivity, Sound Sensitivity, Dizziness, Difficulty Concentrating and Swollen Eye, activity intolerance. [facility] Medical History Moderate recurrent major depression Left sided abdominal pain Generalized pruritus Smoking 1/2 pack a day or less Asthma-COPD overlap syndrome Acute maxillary sinusitis Otitis externa Hospital discharge follow-up Microscopic hematuria Physical exam Goiter Blurry vision Tobacco dependence Has daytime drowsiness Pulmonary nodules Dyspnea Hand pain Skin lesion Leg pain, bilateral Dyslipidemia Epigastric pain Essential hypertension Cervical cancer screening GERD (gastroesophageal reflux disease) HTN (hypertension) Migraine Anxiety Depression Right lower quadrant pain Fibromyalgia Surgical History (Reviewed 11/26/24 @ 13:49 by Romy Driscoll [facility]) Previous section History of breast lump/mass excision History of lithotripsy H/O LEEP H/O tubal ligation Family History Father Myocardial infarction Mother Lung cancer Brother Liver cancer Maternal Grandfather Stomach cancer Maternal Grandmother No problems noted. Social History Housing: Apartment Alcohol intake: never Patient Tobacco Use Status: Current someday Tobacco user Tobacco use type: Cigarette Cigarette Packs Per Day: 0.25 Cigarettes Per Day: 3 e-Cigarette/Vaping Use: Never Used Second Hand Smoke Exposure: Yes service: No Current occupational status: disabled Gender identity: Female Cognitive needs: No Hearing needs: No Vision needs: No Female Reproductive History Menstrual Age of Menarche: 9 Physical Exam Vital Signs: Last Vital Signs Pulse 83 11/26/24 13:54 BP 130/78 11/26/24 13:54 Pulse Ox 99 11/26/24 13:54 Oxygen Delivery Method Room Air 11/26/24 13:54 Const General: cooperative and no acute distress Orientation/consciousness: patient oriented x3 Resp Effort & Inspection: normal respiratory effort and able to speak in complete sentences Neuro Other: Photophobic Palpable tenderness along the occipital nerve distribution. General: patient oriented x3 and moves all extremities Cognition (Neuro): normal cognition Psych Appearance: grossly normal Mental Status: mental status grossly normal Speech and movement: Normal speech and movement present Affect: normal affect Attitude: cooperative Assessment & Plan Assessment & Plan (1) Chronic migraine without aura: Code(s): G43.709 - Chronic migraine without aura, not intractable, without status migrainosus Category: Medical Qualifiers: Intractability: not intractable Status migrainosus presence: without status migrainosus Qualified Code(s): G43.709 - Chronic migraine without aura, not intractable, without status migrainosus (2) Occipital headache: Code(s): R51.9 - Headache, unspecified Category: Medical (3) Cervicalgia: Code(s): M54.2 - Cervicalgia Category: Medical (4) Cranial pain: Code(s): R51.9 - Headache, unspecified Category: Medical (5) Hypokalemia: Code(s): E87.6 - Hypokalemia Category: Medical Plan Discussed that patient seems to be experiencing chronification of her migraine symptoms, however there are also indications of an overlapping occipital neuralgia. Thus, we will request PT eval and treat and pain management consult for possible occipital nerve block-which patient is in agreement with. In the meantime, patient can try applying small amount of topical viscous lidocaine 2% to occipital region. We will also recheck CBC and CMP today. For overall headache management: Try to optimize good self-care, including but not limited to maintaining a healthy diet, adequate fluid intake, adequate sleep, and engaging in regular physical activity. Patient encouraged to increase p.o. intake, even if several small meals throughout the day. Try adding high potassium foods such as bananas, avocados, sweet potatoes at least once a day. Track headaches. Future considerations: HST For acute headache treatment: Continue Rimegepant ODT (Nurtec ODT) 75mg, 1 tab at onset of migraine headache.. Max of 1 tabs (75mg) per 24 hours. May adjunct with OTC Tylenol 650-1000mg q 4-6 hours prn. Do not take w/ Butalbital (Fioricet or Fiorinal). Potential adverse effects, include but are not limited to fatigue, nausea, dry mouth, constipation. May trial Benadryl 25-50 mg q.d. for sleep, may help headache as well. Previous acute migraine medication trials: Sumatriptan not tolerated- nausea. Naratriptan- ineffective and caused nausea. Fioricet can help- but will interact w/ oral gepant. Acute migraine medication contraindications: NSAIDs d/t ibuprofen allergy. ? For headache prevention medication: Continue Riboflavin 400mg qam Continue Magnesium 400mg qhs Again start Emgality 240mg sc x's 1 then 120mg sc q month. * Reviewed potential adverse effects of Emgality, including but not limited to injection site reactions. * RN injection training provided today using Emgality demo pen to patient and daughter- daughter will administer for patient in the home setting. * Reviewed the usual prior authorization requirements and processes related to Emgality. Previous migraine prevention medication trials: Amitriptyline- not tolerated, Gabapentin- not tolerated, Cymbalta ineffective > 2 months. Migraine prevention medication contraindications: Beta=blockers s d/t asthma dx Will follow-up upon review of above and patient to follow-up in clinic in 3-6 months or sooner prn. Orders: Orders Comprehensive Met. Panel 11/26/24 D64.9 - Anemia, unspecified, E87.6 - Hypokalemia PT Evaluation and Treatment 11/26/24 G43.709 - Chronic migraine without aura, not intractable, without status migrainosus, R51.9 - Headache, unspecified Complete Blood Count Auto Diff 11/26/24 D64.9 - Anemia, unspecified, E87.6 - Hypokalemia Referrals Pain Management Referral R51.9 - Headache, unspecified Medications: New lidocaine HCl 2% (Lidocaine Viscous) 1 appl topical QID PRN 100 mL 1RF head pain 30 days Coding Level of Care Code Est Pt Level 4 (10550) Diagnoses Chronic migraine without aura without status migrainosus, not intractable G43.709 Intractability: not intractable Status migrainosus presence: without status migrainosus Occipital headache R51.9 Cervicalgia M54.2 Cranial pain R51.9 Hypokalemia E87.6
[2024-11-26 13:54] VITALS: BP 130/78; PULSE 83; O2SAT 99
== END 2024-11-26 15:10 | disposition home or self-care (01) ==
LOC: HO.HSMS 13:32
PROVIDERS: PCP Internal Medicine; Visit Provider Nurse Practitioner Family
DX: G43.709 Chronic migraine without aura, not intractable, without status migrainosus (principal); R51.9 Headache, unspecified; M54.2 Cervicalgia; E87.6 Hypokalemia
CPT/HCPCS: 99214

== ENCOUNTER → 2024-11-26 13:31 | Outpatient (BNVA) | payer OTHER, SELFPAY | PROVIDERS: PCP Internal Medicine; Visit Provider Nurse Practitioner Family | DX: G43.709 Chronic migraine without aura, not intractable, without status migrainosus (principal); M54.2 Cervicalgia; E87.6 Hypokalemia | CPT/HCPCS: 99212 ==

== ENCOUNTER 2024-12-02 13:11 | Outpatient (AMB) | payer OTHER, SELFPAY ==
[2024-12-02 13:19] VITALS: BP 110/62; PULSE 97; BMI 28.2
--- NOTE | 2024-12-02 13:19 | A.OFFVIS_ITS ---
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: Yes Md Senior Research Scientist Language: Grounds Crew Supervisor Name: [email or web address] Accompanied by: Self / Same As Patient Allergies amitriptyline Allergy (Intermediate, Verified 11/26/24 13:48) headache ibuprofen [From Motrin] Allergy (Intermediate, Verified 11/26/24 13:48) ITCHY RASH shrimp Allergy (Mild, Verified 11/26/24 13:53) Unknown seafood Allergy (Verified 11/26/24 13:48) Unknown gabapentin Adverse Reaction (Intermediate, Verified 11/26/24 13:48) vomiting Medication List - Last Reconciled 12/02/24 by Kye Quintanilla MD acetaminophen 1,000 mg (2 x 500 mg) PO TID PRN albuterol sulfate 90 mcg/actuation 2 puffs inhalation Q4-6H PRN blood pressure monitor (Blood Pressure Kit) As directed cane As directed cholecalciferol (vitamin D3) 50 mcg PO DAILY 90 days clonazepam 0.5 mg PO BID PRN 30 days diphenhydramine HCl 50 mg (2 x 25 mg) PO Q6H PRN epinephrine (EpiPen 2-Pantera) 0.3 mg (0.3 mL) IM Q10M PRN fenofibrate 54 mg PO DAILY 90 days fexofenadine (Gemini Allergy) 180 mg PO DAILY fluocinolone acetonide oil 0.01% (DermOtic Oil) 5 drps otic (ears) BID 7 days fluticasone propionate 50 mcg/actuation (Flonase Allergy Relief) 1 spray intranasal BID PRN galcanezumab-gnlm (Emgality Pen) 120 mg subcut ONCE 30 days hydrocortisone 2.5% 1 appl topical BID-TID PRN hydroxyzine HCl 50 mg PO Q8H PRN ipratropium-albuterol 20-100 mcg/actuation (Combivent Respimat) 1 puff PO QID 30 days lidocaine 5% (Lidoderm) 1 patch topical DAILY lidocaine HCl 2% (Lidocaine Viscous) 1 appl topical QID PRN 30 days magnesium oxide 400 mg PO BEDTIME 30 days meclizine 12.5 mg PO TID PRN menthol 0.1% (Eucerin Itch Relief) 1 ea topical BID 14 days montelukast (Singulair) 10 mg PO BEDTIME 30 days naloxone 2 mg (0.08 mL) subcut Q3M 30 days nebulizers (AeroEclipse II Nebulizer) As directed olopatadine 0.7% (Pataday Once Daily Relief) 1 drp ophthalmic (eye) Q24H PRN potassium chloride 20 mEq PO DAILY 2 days riboflavin (vitamin B2) 400 mg PO DAILY 30 days rimegepant (Nurtec ODT) 75 mg PO ONCE PRN 30 days MDD 1 tab tramadol 50 mg PO BID PRN 30 days underpads (Bed Underpads) As directed varenicline tartrate (Chantix Starting Month Box) PO PER PKG DIR walker To be use lifetime zolpidem (Ambien) 5 mg PO BEDTIME HPI Comments Details: The patient is a 53-year-old female presenting with chest pain. The patient reports intermittent pressure in the chest, associated arm numbness, and palpitations. No prior heart problems have been diagnosed. She experiences dyspnea on exertion and fatigue when walking. ER visits have occurred for chest pain. A history of anaphylaxis exists, but the EpiPen has not been used. It seems that the chest pain issue is longstanding with many evaluations and several high sensitivity troponin checks which were all within normal limits. No previously diagnosed coronary disease or myocardial infarction or cardiomyopathy. [facility] Medical History Moderate recurrent major depression Left sided abdominal pain Generalized pruritus Smoking 1/2 pack a day or less Asthma-COPD overlap syndrome Acute maxillary sinusitis Otitis externa Hospital discharge follow-up Microscopic hematuria Physical exam Goiter Blurry vision Tobacco dependence Has daytime drowsiness Pulmonary nodules Dyspnea Hand pain Skin lesion Leg pain, bilateral Dyslipidemia Epigastric pain Essential hypertension Cervical cancer screening GERD (gastroesophageal reflux disease) HTN (hypertension) Migraine Anxiety Depression Right lower quadrant pain Fibromyalgia Surgical History Previous section History of breast lump/mass excision History of lithotripsy H/O LEEP H/O tubal ligation Family History Father Myocardial infarction Mother Lung cancer Brother Liver cancer Maternal Grandfather Stomach cancer Maternal Grandmother No problems noted. Social History Housing: Apartment Alcohol intake: never Patient Tobacco Use Status: Current someday Tobacco user Tobacco use type: Cigarette Cigarette Packs Per Day: 0.25 Cigarettes Per Day: 3 e-Cigarette/Vaping Use: Never Used Second Hand Smoke Exposure: Yes service: No Current occupational status: disabled Gender identity: Female Cognitive needs: No Hearing needs: No Vision needs: No Female Reproductive History Menstrual Age of Menarche: 9 Review of Systems Const Denies chills, Denies fatigue, Denies fever(s), Denies frequent falls, Denies weakness, Denies weight gain and Denies weight loss ENT Denies dizziness Card Reports chest pain, Reports rapid heart rate, Denies leg edema, Denies lightheadedness, Reports palpitations, Reports dyspnea, Reports dyspnea on exertion and Reports orthopnea Resp Denies cough, Reports dyspnea and Reports dyspnea on exertion GI Denies bloating and Denies change in bowel habits Musc Denies muscle weakness, Reports numbness and Denies tingling Neuro Denies dizziness, Denies frequent falls, Reports numbness, Denies tingling and Denies weakness Endo Denies fatigue and Reports palpitations Physical Exam Vital Signs: Last Vital Signs Pulse 97 12/02/24 13:19 BP 110/62 12/02/24 13:19 BMI result Body Mass Index 28.2 Const General: comfortable and no acute distress Orientation/consciousness: patient oriented x3 HEENT Other: Unremarkable Head: Yes normal to inspection Neck Neck: Yes normal visual inspection Chest Chest palpation & inspection: normal inspection of the chest Resp Auscultation: clear to auscultation bilaterally Cardio Palpation: normal PMI Heart sounds: S1 normal heart sound present, S2 normal heart sound present, no gallops, no murmurs and no rubs GI Palpation (GI): Soft to palpation Back/Spine/Pelvis Other: unremarkable Skin General skin exam: no rashes or lesions noted Neuro General: patient oriented x3 Extrem General: Yes normal to inspection Psych Mental Status: mental status grossly normal Office Procedures EKG Details: EKG with underlying sinus rhythm at 97/Min; nonspecific [place]; [place] [address]-[id number], Complete Assessment & Plan Assessment & Plan (1) Chest pain: Code(s): R07.9 - Chest pain, unspecified Category: Medical Qualifiers: Chest pain type: unspecified Qualified Code(s): R07.9 - Chest pain, unspecified Plan Atypical symptoms. Baseline EKG has nonspecific ST-T changes. Numerous high sensitivity troponins have been checked over the last few years and they are all within normal limits. We will plan on an echocardiogram and stress test for further evaluation. If these are within normal limits, then reassurance only. Orders: Orders CA echo stress exercise Today R07.9 - Chest pain, unspecified CA echo transthoracic complete Today R07.9 - Chest pain, unspecified Coding Level of Care Code New Pt Level 4 (77673) Complex EM visit Add On G2211 Diagnoses Chest pain, unspecified type R07.9 Chest pain type: unspecified CPT Codes EKG - CPT: 46102-[id number], Complete ([id number])
== END 2024-12-02 13:46 | disposition home or self-care (01) ==
PROVIDERS: PCP Internal Medicine; Visit Provider Internal Medicine
DX: R07.9 Chest pain, unspecified (principal); R94.31 Abnormal electrocardiogram [ECG] [EKG]
CPT/HCPCS: 93010; 99214; G2211

== ENCOUNTER → 2024-12-02 13:11 | Outpatient (BNVA) | payer OTHER, SELFPAY | PROVIDERS: PCP Internal Medicine; Visit Provider Internal Medicine | DX: R00.2 Palpitations (principal); R07.9 Chest pain, unspecified; R20.2 Paresthesia of skin | CPT/HCPCS: 93005; 99212 ==

== ENCOUNTER 2024-12-03 14:39 | Outpatient (AMB) | payer OTHER, SELFPAY ==
--- NOTE | 2024-12-03 14:47 | AM.OFFWIN_ITS ---
Intake Vital Signs 12/03/24 14:48 Height 5 ft 1 in Weight 147 lb 6 oz BMI 27.8 BP 122/80 Blood Pressure Location Lt brachial Position Sitting Pulse 96 Pulse Source Pulse Oximeter Temp 98.5 F Temp Source Oral Pulse Oximetry (%) 99 Oxygen Delivery Method Room Air Intake Visit Reasons: EP-dizziness, neck pressure, rt ear pain Intake Note: Patient presents pain in the back of her neck and head times 4 days Patient Tobacco Use Status: Current someday Tobacco user Allergies amitriptyline Allergy (Intermediate, Verified 12/03/24 14:54) headache ibuprofen (From Motrin) Allergy (Intermediate, Verified 12/03/24 14:54) ITCHY RASH shrimp Allergy (Mild, Verified 12/03/24 14:54) Unknown seafood Allergy (Verified 12/03/24 14:54) Unknown gabapentin Adverse Reaction (Intermediate, Verified 12/03/24 14:54) vomiting Do you need a note to return to daycare/school/sports/work: No HPI HPI Comments History of Present Illness Details 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 History - The patient is a 53-year-old female pr esenting with sinusitis, dizziness, and facial swelling. - Reports pressure and pain behind the e ars for several days, worsening today, with associated facial swelling and difficulty eating and sleeping. - Experiences dizziness and loss of angela nce when walking. - Mild earache present, denies nasal con gestion or runny nose. - Tried Tylenol and oxycodone without re lief, has a history of using nasal spray for sinusitis but not recently. Physical Exam General: Cooperative, healthy appearing, comfortable and no acute distress Orientation/consciousness: Patient oriented x3 Limitations: No limitations Head: Normal to inspection, but reports pressure behind ears and facial swelling Ears: Hearing grossly normal bilaterally, external ears normal, TM's with fluid bilaterally, no infection Nose: Normal external nose present, Normal nares present and No nasal discharge present Face and sinus: Normal facial exam, Yes sinuses tender Mouth: Normal oral and palatal mucosa present and moist mucous membranes Throat: Yes tonsils normal, Yes uvula midline. Posterior oropharynx erythema, no exudates Eyes: Appearance normal, both eyes and all related structures Neck: Normal visual inspection, full ROM Respiratory: Normal respiratory effort, able to speak in complete sentences, no respiratory distress, not tachypneic, no tripod positioning and no use of accessory muscles Skin: No rashes or lesions noted Neuro: Patient oriented x3, normal gait Extremities: Normal to inspection and Yes no clubbing, cyanosis or edema PFSH Medical History Moderate recurrent major depression Left sided abdominal pain Generalized pruritus Smoking 1/2 pack a day or less Asthma-COPD overlap syndrome Acute maxillary sinusitis Otitis externa Hospital discharge follow-up Microscopic hematuria Physical exam Goiter Blurry vision Tobacco dependence Has daytime drowsiness Pulmonary nodules Dyspnea Hand pain Skin lesion Leg pain, bilateral Dyslipidemia Epigastric pain Essential hypertension Cervical cancer screening GERD (gastroesophageal reflux disease) HTN (hypertension) Migraine Anxiety Depression Right lower quadrant pain Fibromyalgia Surgical History Previous section History of breast lump/mass excision History of lithotripsy H/O LEEP H/O tubal ligation Family History Father Myocardial infarction Mother Lung cancer Brother Liver cancer Maternal Grandfather Stomach cancer Maternal Grandmother No problems noted. Social History Housing: Apartment Alcohol intake: never Patient Tobacco Use Status: Current someday Tobacco user Tobacco use type: Cigarette Cigarette Packs Per Day: 0.25 Cigarettes Per Day: 3 e-Cigarette/Vaping Use: Never Used Second Hand Smoke Exposure: Yes service: No Current occupational status: disabled Gender identity: Female Cognitive needs: No Hearing needs: No Vision needs: No Female Reproductive History Menstrual Age of Menarche: 9 Review of Systems Const All systems reviewed & are unremarkable except as noted in HPI and below Physical Exam Vital Signs: Last Vital Signs Temp 98.5 F 12/03/24 14:48 Pulse 96 12/03/24 14:48 BP 122/80 12/03/24 14:48 Pulse Ox 99 12/03/24 14:48 Oxygen Delivery Method Room Air 12/03/24 14:48 BMI result Body Mass Index 27.8 Assessment & Plan Assessment & Plan (1) Acute maxillary sinusitis: Code(s): J01.00 - Acute maxillary sinusitis, unspecified Qualifiers: Recurrence: non-recurrent Qualified Code(s): J01.00 - Acute maxillary sinusitis, unspecified Plan: Plan - Prescribed Flonase nasal spray to be used twice daily to reduce sinus con gestion. - Recommended Benadryl at night to help with fluid in the ears and dizziness. - Advised against taking hydroxyzine if using Benadryl to avoid double dosing. - Prescribed a short course of prednisone to alleviate pressure symptoms, to be taken in the morning for five days. Patient was informed and verbally consented to the use of an ambient scribe for clinic note documentation during this visit Medications: New prednisone 20 mg PO QAM 5 tabs 0RF Coding Level of Care Code Est Pt Level 3 (10433) Diagnoses Acute non-recurrent maxillary sinusitis J01.00 Recurrence: non-recurrent
[2024-12-03 14:48] VITALS: BP 122/80; PULSE 96; TEMP 36.9; O2SAT 99; BMI 27.8
== END 2024-12-03 15:55 | disposition home or self-care (01) ==
PROVIDERS: PCP Internal Medicine; Visit Provider Physician Assistant
DX: J01.00 Acute maxillary sinusitis, unspecified (principal)

== ENCOUNTER → 2024-12-03 14:39 | Outpatient (BNVA) | payer OTHER, SELFPAY | PROVIDERS: PCP Internal Medicine; Visit Provider Physician Assistant | DX: J01.00 Acute maxillary sinusitis, unspecified (principal) | CPT/HCPCS: 99212 ==

== ENCOUNTER 2024-12-03 17:25 | Emergency (ER) | payer OTHER, SELFPAY ==
[2024-12-03 17:31] VITALS: BP 155/93; PULSE 84; RESP 18; TEMP 36.4; O2SAT 96; BMI 27.8
--- NOTE | 2024-12-03 17:34 | ED.GENADULT ---
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 Patient reports that she went to her primary doctor 1 week ago and was told she had fluid in her ears She was given prednisone with no improvement in his symptoms and now she feels as though the right side of her face is swollen, she has facial pressure but, bilateral ear pain, and dizziness. Denies any cough, sore throat, chest pain Denies any fevers or chills. No other complaints or concerns at this time Related Data Previous Rx's ?Medication ?Instructions ?Recorded cane #1 ea 09/06/22 acetaminophen 500 mg tablet 1,000 mg (2 x 500 mg) PO TID PRN 10/07/22 pain #20 tabs underpads (Bed Underpads) #100 ea 03/28/23 walker #1 ea 03/28/23 meclizine 12.5 mg tablet 12.5 mg PO TID PRN dizziness #14 11/21/23 tabs lidocaine 5 % topical patch 1 patch topical DAILY #30 ea 01/05/24 (Lidoderm) naloxone 10 mg/0.4 mL 2 mg (0.08 mL) subcut Q3M 30 days 01/09/24 injection,auto-injector #4 mL fluocinolone acetonide oil 0.01 % 5 drp otic (ears) BID 7 days #20 mL 04/03/24 ear drops (DermOtic Oil) nebulizers (AeroEclipse II #1 ea 04/03/24 Nebulizer) riboflavin (vitamin B2) 400 mg 400 mg PO DAILY 30 days #30 tabs 04/16/24 tablet montelukast 10 mg tablet 10 mg PO BEDTIME 30 days #30 tabs 04/22/24 (Singulair) varenicline tartrate 0.5 mg (11)-1 See Rx Instructions PO PER PKG DIR 04/22/24 mg (42) tablets in a dose pack #42 ea (Chantix Starting Month Box) cholecalciferol (vitamin D3) 50 50 mcg PO DAILY 90 days #90 tabs 04/24/24 mcg (2,000 unit) tablet olopatadine 0.7 % eye drops 1 drp ophthalmic (eye) Q24H PRN 08/11/24 (Pataday Once Daily Relief) itching #5 mL fluticasone propionate 50 1 spray intranasal BID PRN nasal 09/21/24 mcg/actuation nasal congestion #16 grams spray,suspension (Flonase Allergy Relief) albuterol sulfate 90 mcg/actuation 2 puff inhalation Q4-6H PRN 10/03/24 aerosol inhaler shortness of breath or wheezing #6.7 grams diphenhydramine HCl 25 mg capsule 50 mg (2 x 25 mg) PO Q6H PRN 10/06/24 allergic reaction #20 caps epinephrine 0.3 mg/0.3 mL 0.3 mg (0.3 mL) IM Q10M PRN 10/06/24 injection, auto-injector (EpiPen anaphylaxis #2 ea 2-Pantera) menthol 0.1 % lotion (Eucerin Itch 1 ea topical BID 14 days #250 mL 10/06/24 Relief) fexofenadine 180 mg tablet 180 mg PO DAILY #90 tabs 10/09/24 (Gemini Allergy) hydrocortisone 2.5 % topical 1 appl topical BID-TID PRN itching 10/09/24 ointment #454 grams clonazepam 0.5 mg tablet 0.5 mg PO BID PRN anxiety 30 days 10/16/24 #60 tabs zolpidem 5 mg tablet (Ambien) 5 mg PO BEDTIME #30 tabs 10/16/24 ipratropium 20 mcg-albuterol 100 1 puff PO QID 30 days #25 mL 10/21/24 mcg/actuation mist for inhalation (Combivent Respimat) rimegepant 75 mg disintegrating 75 mg PO ONCE PRN migraine 10/24/24 tablet (Nurtec ODT) headache 30 days #15 tabs magnesium oxide 400 mg (241.3 mg 400 mg PO BEDTIME 30 days #30 tabs 10/28/24 magnesium) tablet tramadol 50 mg tablet 50 mg PO BID PRN severe pain 11/03/24 (scale score 7-10) 30 days #60 tabs fenofibrate 54 mg tablet 54 mg PO DAILY 90 days #90 tabs 11/06/24 potassium chloride 20 mEq oral 20 meq PO DAILY 2 days #2 ea 11/11/24 packet blood pressure monitor (Blood #1 ea 11/21/24 Pressure Kit) galcanezumab-gnlm 120 mg/mL 120 mg subcut ONCE 30 days #1 mL 11/23/24 subcutaneous pen injector (Emgality Pen) lidocaine HCl 2 % mucosal solution 1 appl topical QID PRN head pain 11/26/24 (Lidocaine Viscous) 30 days #100 mL amoxicillin 875 mg-potassium 1 tab PO Q12H #20 tabs 12/03/24 clavulanate 125 mg tablet hydroxyzine HCl 50 mg tablet 50 mg PO Q8H PRN nausea and 12/03/24 vomiting #90 tabs meclizine 25 mg tablet 25 mg PO TID #20 tabs 12/03/24 prednisone 20 mg tablet 20 mg PO QAM #5 tabs 12/03/24 Allergies Allergy/AdvReac Type Severity Reaction Status Date / Time amitriptyline Allergy Intermediate headache Verified 12/03/24 17:33 ibuprofen (From Motrin) Allergy Intermediate ITCHY RASH Verified 12/03/24 17:33 shrimp Allergy Mild Unknown Verified 12/03/24 17:33 seafood Allergy Unknown Verified 12/03/24 17:33 gabapentin AdvReac Intermediate vomiting Verified 12/03/24 17:33 Review of Systems Constitutional: Constitutional: Denies body ache(s), Denies chills, Denies fever(s) and Reports headache(s) ENT: Reports dizziness, Denies ear discharge, Reports otalgia, Reports facial pain, Reports headache(s), Denies nasal congestion, Denies nasal discharge, Denies neck pain, Reports sinus pain, Denies throat swelling and Denies tongue swelling Musculoskeletal: Musculoskeletal: Denies neck pain Neurologic: Reports dizziness and Reports headache(s) Allergic/Immunologic: Allergic/Immunologic: Denies throat swelling and Denies tongue swelling PMFSH Past Medical History Medical History Moderate recurrent major depression Left sided abdominal pain Generalized pruritus Smoking 1/2 pack a day or less Asthma-COPD overlap syndrome Acute maxillary sinusitis Otitis externa Hospital discharge follow-up Microscopic hematuria Physical exam Goiter Blurry vision Tobacco dependence Has daytime drowsiness Pulmonary nodules Dyspnea Hand pain Skin lesion Leg pain, bilateral Dyslipidemia Epigastric pain Essential hypertension Cervical cancer screening GERD (gastroesophageal reflux disease) HTN (hypertension) Migraine Anxiety Depression Right lower quadrant pain Fibromyalgia Surgical History Previous section History of breast lump/mass excision History of lithotripsy H/O LEEP H/O tubal ligation Family History Family History Father Myocardial infarction Mother Lung cancer Brother Liver cancer Maternal Grandfather Stomach cancer Maternal Grandmother No problems noted. Social History Social History Housing: Apartment Alcohol intake: never Patient Tobacco Use Status: Current someday Tobacco user Tobacco use type: Cigarette Cigarette Packs Per Day: 0.25 Cigarettes Per Day: 3 e-Cigarette/Vaping Use: Never Used Second Hand Smoke Exposure: Yes Advance Directives: No Advance Directives Information Provided: Yes service: No Current occupational status: disabled Gender identity: Female Cognitive needs: No Hearing needs: No Vision needs: No Physical Exam ED Vital Signs: Vital Signs - 24 hr 12/03/24 17:31 12/03/24 20:08 Temperature 97.5 F 97.5 F Pulse Rate 84 84 Respiratory Rate 18 18 Blood Pressure 155/93 H 155/93 H Pulse Oximetry 96 96 Oxygen Delivery Method Room Air Room Air BMI result Body Mass Index 27.8 Const General: healthy appearing, comfortable, no acute distress, alert and awake Nutritional Appearance: well nourished Orientation/consciousness: patient oriented x3 HENMT Head: Yes normocephalic and Yes atraumatic Ears: TM's normal bilaterally, EAC's normal, mastoids normal and no periauricular adenopathy Face and sinus: No sinuses nontender, Yes face symmetric, No crepitus, No scar and Yes sinus tenderness Eyes Eyelids: Yes eyelids normal Conjunctivae: conjunctivae normal Sclerae: sclerae normal Corneas: corneas normal Pupils: Equal, round and reactive pupils present EOM: EOMs intact bilaterally Neck Neck: Yes full ROM Resp Effort & Inspection: normal respiratory effort, able to speak in complete sentences, no audible wheezes and not labored Auscultation: clear to auscultation bilaterally Cardio Rate: regular rate Rhythm: regular rhythm GI Inspection: No distended Palpation (GI): Soft to palpation, not firm, nontender, no guarding and not rigid Skin General skin exam: elasticity normal Neuro General: patient oriented x3 Cranial nerves: Yes CN's II-XII intact bilaterally, Yes Equal, round and reactive pupils present and Yes Bilaterally intact EOM present Cognition (Neuro): normal cognition Extrem Other: Moving all extremities well without any obvious deformities Course Course Course Narrative: RME, this is a rapid medical exam performed by Mohsen Azevedo please refer to primary provider for complete H&P- 53-year-old female presents for evaluation of facial pain, bilateral ear pain and dizziness for the last week. She has tried a course of prednisone without improvement Medical Decision Making Medical Decision Making MDM Narrative: 53-year-old female presents for evaluation of facial pain, ear pain. There was no evidence of otitis media, otitis externa or mastoiditis on exam. She does have mild facial tenderness but no objective facial edema or asymmetry. Given that she has had symptoms for 1 week, she would likely developed a sinusitis which is likely contributing to her vertigo. She has no meningeal signs, she is ambulating independently, lungs are clear to auscultation. We will treat her for an acute sinusitis Differential Diagnosis Differential Diagnoses: The differential diagnosis associated with the presentation includes (Acute sinusitisVertigo Upper respiratory infection Mastoiditis viral syndrome) Lab Data Labs: Lab Results 12/03/24 Range/Units 17:41 Influenza Type A (PCR) NEGATIVE (Negative) Influenza Type B (PCR) NEGATIVE (Negative) RSV RNA Qual (PCR) NEGATIVE (Negative) SARS-CoV-2 RNA (RT-PCR) NEGATIVE (Negative) Discharge Plan Discharge Clinical Impression: Sinusitis Patient Disposition: Home, Self-Care Instructions: Sinusitis (ED) Additional Instructions: Your viral tests were negative. Take the antibiotic twice daily for 10 days for sinusitis. You may use meclizine as needed for dizziness. There was no evidence of ear infection, but fluid behind the ear can cause dizziness Follow-up with your primary doctor, return for new or worsening symptoms Prescriptions: New amoxicillin-pot clavulanate 875-125 mg tablet 1 tab PO Q12H Qty: 20 0RF meclizine 25 mg tablet 25 mg PO TID Qty: 20 0RF No Action (DME) cane Device See Rx Instructions .Route Qty: 1 0RF Rx Instructions: As directed (DME) walker Misc See Rx Instructions .Route Qty: 1 0RF Rx Instructions: To be use lifetime (DME) underpads [Bed Underpads] Pad See Rx Instructions .Route Qty: 100 0RF Rx Instructions: As directed naloxone 10 mg/0.4 mL auto-injector 2 mg subcut Q3M 30 Days Qty: 4 0RF Rx Instructions: until desired response riboflavin (vitamin B2) 400 mg tablet 400 mg PO DAILY 30 Days Qty: 30 6RF cholecalciferol (vitamin D3) 50 mcg (2,000 unit) tablet 50 mcg PO DAILY 90 Days Qty: 90 1RF Combivent Respimat 20-100 mcg/actuation mist 1 puff PO QID 30 Days Qty: 25 11RF Patient Comments: Pulmo given Nurtec ODT 75 mg tablet,disintegrating 75 mg PO ONCE MDD 1 tab PRN (Reason: migraine headache) 30 Days Qty: 15 6RF Rx Instructions: Prior authorization approved through 04/22/2025 tramadol 50 mg tablet 50 mg PO BID PRN (Reason: severe pain (scale score 7-10)) 30 Days Qty: 60 0RF fenofibrate 54 mg tablet 54 mg PO DAILY 90 Days Qty: 90 1RF potassium chloride 20 mEq packet 20 meq PO DAILY 2 Days Qty: 2 0RF (DME) blood pressure monitor [Blood Pressure Kit] Kit See Rx Instructions .ROUTE .MEDSUPPLY Qty: 1 0RF Rx Instructions: As directed Emgality Pen 120 mg/mL pen injector 120 mg subcut ONCE 30 Days Qty: 1 6RF Rx Instructions: Maintenance dose of 120 mg subcu q.month. hydroxyzine HCl 50 mg tablet 50 mg PO Q8H PRN (Reason: nausea and vomiting) Qty: 90 1RF acetaminophen 500 mg tablet 1,000 mg PO TID PRN (Reason: pain) Qty: 20 0RF lidocaine [Lidoderm] 5 % adhesive patch,medicated 1 patch topical DAILY Qty: 30 0RF Rx Instructions: leave on most painful area for up to 12 hrs fluticasone propionate [Flonase Allergy Relief] 50 mcg/actuation spray,suspension 1 spray intranasal BID PRN (Reason: nasal congestion) Qty: 16 0RF Rx Instructions: administer into each nostril meclizine 12.5 mg tablet 12.5 mg PO TID PRN (Reason: dizziness) Qty: 14 0RF albuterol sulfate 90 mcg/actuation HFA aerosol inhaler 2 puff inhalation Q4-6H PRN (Reason: shortness of breath or wheezing) Qty: 6.7 0RF lidocaine HCl [Lidocaine Viscous] 2 % solution 1 appl topical QID PRN (Reason: head pain) 30 Days Qty: 100 1RF diphenhydramine HCl 25 mg capsule 50 mg PO Q6H PRN (Reason: allergic reaction) Qty: 20 0RF epinephrine [EpiPen 2-Pantera] 0.3 mg/0.3 mL auto-injector 0.3 mg IM Q10M PRN (Reason: anaphylaxis) Qty: 2 0RF Rx Instructions: for 3 doses Eucerin Itch Relief 0.1 % lotion 1 ea topical BID 14 Days Qty: 250 0RF hydrocortisone 2.5 % ointment 1 appl topical BID-TID PRN (Reason: itching) Qty: 454 1RF fexofenadine [Gemini Allergy] 180 mg tablet 180 mg PO DAILY Qty: 90 1RF magnesium oxide 400 mg (241.3 mg magnesium) tablet 400 mg PO BEDTIME 30 Days Qty: 30 6RF Rx Instructions: may hold for loose stools montelukast [Singulair] 10 mg tablet 10 mg PO BEDTIME 30 Days Qty: 30 11RF varenicline tartrate [Chantix Starting Month Box] 0.5 mg (11)- 1 mg (42) tablets,dose pack See Rx Instructions PO PER PKG DIR Qty: 42 0RF Rx Instructions: PO PER PKG DIR fluocinolone acetonide oil [DermOtic Oil] 0.01 % drops 5 drp otic (ears) BID 7 Days Qty: 20 0RF (DME) nebulizers [AeroEclipse II Nebulizer] Misc See Rx Instructions .Route Qty: 1 0RF Rx Instructions: As directed Pataday Once Daily Relief 0.7 % drops 1 drp ophthalmic (eye) Q24H PRN (Reason: itching) Qty: 5 0RF clonazepam 0.5 mg tablet 0.5 mg PO BID PRN (Reason: anxiety) 30 Days Qty: 60 1RF zolpidem [Ambien] 5 mg tablet 5 mg PO BEDTIME Qty: 30 1RF prednisone 20 mg tablet 20 mg PO QAM Qty: 5 0RF Interventions: ED Discharge Assessment Last Done: 12/03/24 20:08 Discharge Date/Time: 12/03/24 20:08 Print Language: Finnish
[2024-12-03 18:22] LABS: Influenza A PCR NEGATIVE (Negative); Influenza B PCR NEGATIVE (Negative); Resp Syncy Virus RNA Qual PCR NEGATIVE (Negative); SARS COV2 PCR INHOUSE NEGATIVE (Negative)
--- NOTE | 2024-12-03 20:07 | PC.NURSE ---
This nurse only reviewed discharge instructions with pt. pt verbalized understanding.
[2024-12-03 20:08] VITALS: BP 155/93; PULSE 84; RESP 18; TEMP 36.4; O2SAT 96
== END 2024-12-03 20:08 | disposition home or self-care (01) ==
PROVIDERS: Physician Assistant; Emergency Provider Emergency Medicine; PCP Internal Medicine
DX: J01.90 Acute sinusitis, unspecified (principal); H92.03 Otalgia, bilateral; Z03.818 Encounter for observation for suspected exposure to other biological agents ruled out; I10 Essential (primary) hypertension; F17.210 Nicotine dependence, cigarettes, uncomplicated; Z79.899 Other long term (current) drug therapy
CPT/HCPCS: 0241U; 99282; 99283

== ENCOUNTER 2024-12-06 14:00 | Emergency (ER) | payer OTHER, SELFPAY ==
[2024-12-06] VITALS (7 sets, daily range): BP systolic 126–146; BP diastolic 80–83; PULSE 67–84; RESP 14–19; TEMP 36.4–36.6; O2SAT 95–100; BMI 27.5
--- NOTE | ~2024-12-06 | CT_ITS ---
CLINICAL HISTORY: flank pain bilateral ? stone CT ABDOMEN AND PELVIS WITHOUT CONTRAST Comparison: None provided Findings: Mild bibasilar atelectasis. No consolidation or pleural effusion. Multiple scattered small calcified pulmonary granulomas. There is mild left hydronephrosis. There is no obstructing calculus. There are no acute abnormalities in the remaining unenhanced solid organs. There is a 3 cm cyst in the right kidney. The gallbladder is contracted. No AAA. No bowel obstruction, pneumoperitoneum, or pneumatosis. No ascites. No significant mesenteric or paracolic edema. Mild colonic diverticulosis. [id number] colonic stool burden. The appendix is identified. No acute appendicitis. CT appearances of the uterus and ovaries unremarkable. Mild diffuse urinary bladder wall thickening. The bones are intact. IMPRESSION: 1. Mild left hydronephrosis. No obstructing calculus identified. Recently passed stone versus infection. 2. Mild urinary bladder wall thickening raises the possibility of cystitis in the appropriate clinical setting. 3. No obstructive or acute inflammatory changes in the gastrointestinal tract. This document has been electronically signed by: Bita Berry DO on 12/06/2024 16:46:46
--- NOTE | ~2024-12-06 | CT_ITS ---
CLINICAL HISTORY: hunter CT HEAD WITHOUT CONTRAST Comparison: CT/SR - CT HEAD/BRAIN WO IV CON - 09/17/24 18:15 EDT Findings: No acute intracranial hemorrhage, extra-axial fluid collection, hydrocephalus or midline shift. No significant atrophy-like change. No significant white matter disease. There is no sinus or mastoid fluid. There is a small retention cyst in the left maxillary sinus. Visualized orbits: No acute abnormalities. There is no acute fracture. IMPRESSION: 1. No acute intracranial process. This document has been electronically signed by: Bita Berry DO on 12/06/2024 16:46:55
--- NOTE | 2024-12-06 14:13 | ED.GENADULT ---
HPI - General Adult General Chief complaint: General Medical Stated complaint: back pain Time Seen by Provider: 12/06/24 14:28 Related Data Previous Rx's ?Medication ?Instructions ?Recorded cane #1 ea 09/06/22 acetaminophen 500 mg tablet 1,000 mg (2 x 500 mg) PO TID PRN 10/07/22 pain #20 tabs underpads (Bed Underpads) #100 ea 03/28/23 walker #1 ea 03/28/23 meclizine 12.5 mg tablet 12.5 mg PO TID PRN dizziness #14 11/21/23 tabs lidocaine 5 % topical patch 1 patch topical DAILY #30 ea 01/05/24 (Lidoderm) naloxone 10 mg/0.4 mL 2 mg (0.08 mL) subcut Q3M 30 days 01/09/24 injection,auto-injector #4 mL fluocinolone acetonide oil 0.01 % 5 drp otic (ears) BID 7 days #20 mL 04/03/24 ear drops (DermOtic Oil) nebulizers (AeroEclipse II #1 ea 04/03/24 Nebulizer) riboflavin (vitamin B2) 400 mg 400 mg PO DAILY 30 days #30 tabs 04/16/24 tablet montelukast 10 mg tablet 10 mg PO BEDTIME 30 days #30 tabs 04/22/24 (Singulair) varenicline tartrate 0.5 mg (11)-1 See Rx Instructions PO PER PKG DIR 04/22/24 mg (42) tablets in a dose pack #42 ea (Chantix Starting Month Box) cholecalciferol (vitamin D3) 50 50 mcg PO DAILY 90 days #90 tabs 04/24/24 mcg (2,000 unit) tablet olopatadine 0.7 % eye drops 1 drp ophthalmic (eye) Q24H PRN 08/11/24 (Pataday Once Daily Relief) itching #5 mL fluticasone propionate 50 1 spray intranasal BID PRN nasal 09/21/24 mcg/actuation nasal congestion #16 grams spray,suspension (Flonase Allergy Relief) albuterol sulfate 90 mcg/actuation 2 puff inhalation Q4-6H PRN 10/03/24 aerosol inhaler shortness of breath or wheezing #6.7 grams diphenhydramine HCl 25 mg capsule 50 mg (2 x 25 mg) PO Q6H PRN 10/06/24 allergic reaction #20 caps epinephrine 0.3 mg/0.3 mL 0.3 mg (0.3 mL) IM Q10M PRN 10/06/24 injection, auto-injector (EpiPen anaphylaxis #2 ea 2-Pantera) menthol 0.1 % lotion (Eucerin Itch 1 ea topical BID 14 days #250 mL 10/06/24 Relief) fexofenadine 180 mg tablet 180 mg PO DAILY #90 tabs 10/09/24 (Gemini Allergy) hydrocortisone 2.5 % topical 1 appl topical BID-TID PRN itching 10/09/24 ointment #454 grams clonazepam 0.5 mg tablet 0.5 mg PO BID PRN anxiety 30 days 10/16/24 #60 tabs zolpidem 5 mg tablet (Ambien) 5 mg PO BEDTIME #30 tabs 10/16/24 ipratropium 20 mcg-albuterol 100 1 puff PO QID 30 days #25 mL 10/21/24 mcg/actuation mist for inhalation (Combivent Respimat) rimegepant 75 mg disintegrating 75 mg PO ONCE PRN migraine 10/24/24 tablet (Nurtec ODT) headache 30 days #15 tabs magnesium oxide 400 mg (241.3 mg 400 mg PO BEDTIME 30 days #30 tabs 10/28/24 magnesium) tablet fenofibrate 54 mg tablet 54 mg PO DAILY 90 days #90 tabs 11/06/24 potassium chloride 20 mEq oral 20 meq PO DAILY 2 days #2 ea 11/11/24 packet blood pressure monitor (Blood #1 ea 11/21/24 Pressure Kit) lidocaine HCl 2 % mucosal solution 1 appl topical QID PRN head pain 11/26/24 (Lidocaine Viscous) 30 days #100 mL amoxicillin 875 mg-potassium 1 tab PO Q12H #20 tabs 12/03/24 clavulanate 125 mg tablet hydroxyzine HCl 50 mg tablet 50 mg PO Q8H PRN nausea and 12/03/24 vomiting #90 tabs meclizine 25 mg tablet 25 mg PO TID #20 tabs 12/03/24 prednisone 20 mg tablet 20 mg PO QAM #5 tabs 12/03/24 tramadol 50 mg tablet 50 mg PO BID PRN severe pain 12/03/24 (scale score 7-10) 30 days #60 tabs galcanezumab-gnlm 120 mg/mL 120 mg subcut Q30D 30 days #1 mL 12/05/24 subcutaneous pen injector (Emgality Pen) Allergies Allergy/AdvReac Type Severity Reaction Status Date / Time amitriptyline Allergy Intermediate headache Verified 12/06/24 14:11 ibuprofen (From Motrin) Allergy Intermediate ITCHY RASH Verified 12/06/24 14:11 shrimp Allergy Mild Unknown Verified 12/06/24 14:11 seafood Allergy Unknown Verified 12/06/24 14:11 gabapentin AdvReac Intermediate vomiting Verified 12/06/24 14:11 PMFSH Past Medical History Medical History Moderate recurrent major depression Left sided abdominal pain Generalized pruritus Smoking 1/2 pack a day or less Asthma-COPD overlap syndrome Acute maxillary sinusitis Otitis externa Hospital discharge follow-up Microscopic hematuria Physical exam Goiter Blurry vision Tobacco dependence Has daytime drowsiness Pulmonary nodules Dyspnea Hand pain Skin lesion Leg pain, bilateral Dyslipidemia Epigastric pain Essential hypertension Cervical cancer screening GERD (gastroesophageal reflux disease) HTN (hypertension) Migraine Anxiety Depression Right lower quadrant pain Fibromyalgia Surgical History Previous section History of breast lump/mass excision History of lithotripsy H/O LEEP H/O tubal ligation Family History Family History Father Myocardial infarction Mother Lung cancer Brother Liver cancer Maternal Grandfather Stomach cancer Maternal Grandmother No problems noted. Social History Social History Housing: Apartment Alcohol intake: never Patient Tobacco Use Status: Current someday Tobacco user Tobacco use type: Cigarette Cigarette Packs Per Day: 0.25 Cigarettes Per Day: 3 Smoked in Last 30 Days: Yes e-Cigarette/Vaping Use: Never Used Second Hand Smoke Exposure: Yes Use of substances other than those prescribed or required for medical reasons: No Advance Directives: No Advance Directives Information Provided: No Do you have a plan to hurt others: No Plan Patient : No service: No Current occupational status: disabled Gender identity: Female Cognitive needs: No Hearing needs: No Vision needs: No Physical Exam ED Vital Signs: Vital Signs - 24 hr 12/06/24 14:09 12/06/24 14:51 12/06/24 15:01 Temperature 97.8 F 97.5 F Pulse Rate 84 78 79 Respiratory Rate 16 14 Blood Pressure 145/81 H 137/81 128/80 Pulse Oximetry 95 98 Oxygen Delivery Method Room Air Room Air 12/06/24 15:02 12/06/24 15:03 Temperature Pulse Rate 79 79 Respiratory Rate Blood Pressure 137/81 126/81 Pulse Oximetry Oxygen Delivery Method BMI result Body Mass Index 27.5 Course Course Course Narrative: This is an RME: Additional HPI, ROS, PE not included below will be deferred to primary provider. RME assessment and note performed by: Rosa M Roberts PA-C This is a [id number] who presents to the ER with multiple complaints. Reports that she has had pain in the back of her head and is feeling dizzy. Reporting that she is having some pain throughout her entire low back. Reports that she is having urinary frequency. Reporting dizziness is intermittent. Reports that she was dizzy all night. When she woke up this morning and was not dizzy but when she stood up to go outside she felt dizzy. Recently seen and diagnosed with sinusitis. Neurologically intact Plan: Labs, EKG, UA, further ER eval needed Medications Administered Discontinued Medications Generic Name Dose Route Start Last Admin Trade Name Braxtonq PRN Reason Stop Dose Admin Acetaminophen 975 mg 12/06/24 15:01 12/06/24 15:18 Acetaminophen 325 Mg Tablet PO 12/06/24 15:02 975 mg ONCE ONE Administration Sodium Chloride 1,000 mls @ 999 mls/hr 12/06/24 15:15 12/06/24 16:19 Ns IV 12/06/24 16:15 Infused .Q1H1M ANDREW Infusion Medical Decision Making Lab Data 12/06/24 15:08 12/06/24 15:08 Labs: Lab Results 12/06/24 12/06/24 12/06/24 Range/Units 14:48 14:50 15:08 WBC 8.3 (4.8-10.8) X10*3/uL RBC 4.35 (4.20-5.50) X10*6/uL Hgb 11.5 L (12.0-16.0) g/dl Hct 35.2 L (37.0-47.0) % MCV 80.9 (80.0-98.0) fL MCH 26.4 L (27.0-33.0) pg MCHC 32.7 (31.0-35.0) g/dl RDW 15.0 (11.0-16.0) % Plt Count 262 (160-400) X10*3/uL MPV 9.8 (9.4-12.3) fL Immature Gran % (Auto) 0.7 H (0.0-0.4) % Neut % (Auto) 77.2 H (45-73) % Lymph % (Auto) 17.2 L (20-40) % Vernon % (Auto) 3.9 (2-11) % Eos % (Auto) 0.4 (0-4) % Baso % (Auto) 0.6 (0-2) % Lymph # (Auto) 1.4 (1.2-4.9) X10*3/uL Vernon # (Auto) 0.3 (0.1-1.2) X10*3/uL Eos # (Auto) 0.0 (0.0-0.4) X10*3/uL Baso # (Auto) 0.1 (0.0-0.2) X10*3/uL Abs Immat Gran (auto) 0.06 H (0.00-0.03) X10*3/uL Absolute Neuts (auto) 6.4 (2.0-8.3) x10*3/uL Absolute Nucleated RBC 0.000 (0.0-0.012) X10*3/uL Nucleated RBC % (auto) 0.0 (0.0-0.2) /100WBC Sodium 144 (135-145) mmol/L Potassium 3.6 (3.3-5.1) mmol/L Chloride 111 H (96-108) mmol/L Carbon Dioxide 24 (22-29) mmol/L Anion Gap 13 (12-20) BUN 17 H (9-16) mg/dL Creatinine 0.81 (0.5-1.4) mg/dL Estim Creat Clear Calc 79.4 Estimated GFR > 60 Random Glucose 141 H (60-115) mg/dL Calcium 9.3 (8.4-10.2) mg/dL Magnesium 1.9 (1.6-2.6) mg/dL Total Bilirubin 0.4 (0.0-1.0) mg/dL Direct Bilirubin 0.1 (0.0-0.5) mg/dL AST 16 (5-31) U/L ALT 14 (0-31) U/L Alkaline Phosphatase 108 (39-117) U/L Troponin I High Sens < 2.7 (<3.5-17.0) ng/L Total Protein 6.9 (6.5-8.0) g/dL Albumin 4.2 (3.5-5.0) g/dL Urine Color Yellow Urine Appearance Clear Urine pH 6.5 (5.0-9.0) Ur Specific Donaldson 1.015 (1.005-1.025) Urine Protein Negative (Neg-Trace) mg/dL Urine Glucose (UA) Negative (Negative) mg/dL Urine Ketones Negative (Negative) mg/dL Urine Blood Small (1+) H (Negative) Urine Nitrite Negative (Negative) Ur Leukocyte Esterase Negative (Negative) Urine RBC 6-10 H (0-2) /HPF Urine WBC 0-5 (0-5) /HPF Ur Squamous Epith Cells 3-5 (0-2) /HPF Urine Bacteria None Seen (None Seen) Hyaline Casts 0-2 (0-2) /LPF Influenza Type A (PCR) NEGATIVE (Negative) Influenza Type B (PCR) NEGATIVE (Negative) RSV RNA Qual (PCR) NEGATIVE (Negative) SARS-CoV-2 RNA (RT-PCR) NEGATIVE (Negative) Discharge Plan Discharge Clinical Impression: Headache, Hydronephrosis Patient Disposition: Home, Self-Care Instructions: Acute Headache (DC), Hydronephrosis (ED) Prescriptions: No Action (DME) cane Device See Rx Instructions .Route Qty: 1 0RF Rx Instructions: As directed (DME) walker Misc See Rx Instructions .Route Qty: 1 0RF Rx Instructions: To be use lifetime (DME) underpads [Bed Underpads] Pad See Rx Instructions .Route Qty: 100 0RF Rx Instructions: As directed naloxone 10 mg/0.4 mL auto-injector 2 mg subcut Q3M 30 Days Qty: 4 0RF Rx Instructions: until desired response riboflavin (vitamin B2) 400 mg tablet 400 mg PO DAILY 30 Days Qty: 30 6RF cholecalciferol (vitamin D3) 50 mcg (2,000 unit) tablet 50 mcg PO DAILY 90 Days Qty: 90 1RF Combivent Respimat 20-100 mcg/actuation mist 1 puff PO QID 30 Days Qty: 25 11RF Patient Comments: Pulmo given Nurtec ODT 75 mg tablet,disintegrating 75 mg PO ONCE MDD 1 tab PRN (Reason: migraine headache) 30 Days Qty: 15 6RF Rx Instructions: Prior authorization approved through 04/22/2025 fenofibrate 54 mg tablet 54 mg PO DAILY 90 Days Qty: 90 1RF potassium chloride 20 mEq packet 20 meq PO DAILY 2 Days Qty: 2 0RF (DME) blood pressure monitor [Blood Pressure Kit] Kit See Rx Instructions .ROUTE .MEDSUPPLY Qty: 1 0RF Rx Instructions: As directed hydroxyzine HCl 50 mg tablet 50 mg PO Q8H PRN (Reason: nausea and vomiting) Qty: 90 1RF tramadol 50 mg tablet 50 mg PO BID PRN (Reason: severe pain (scale score 7-10)) 30 Days Qty: 60 0RF Emgality Pen 120 mg/mL pen injector 120 mg subcut Q30D 30 Days Qty: 1 6RF Rx Instructions: Maintenance dose of 120 mg subcu q.month. [place] APPROVED 12/04/24-06/05/25 acetaminophen 500 mg tablet 1,000 mg PO TID PRN (Reason: pain) Qty: 20 0RF lidocaine [Lidoderm] 5 % adhesive patch,medicated 1 patch topical DAILY Qty: 30 0RF Rx Instructions: leave on most painful area for up to 12 hrs fluticasone propionate [Flonase Allergy Relief] 50 mcg/actuation spray,suspension 1 spray intranasal BID PRN (Reason: nasal congestion) Qty: 16 0RF Rx Instructions: administer into each nostril meclizine 12.5 mg tablet 12.5 mg PO TID PRN (Reason: dizziness) Qty: 14 0RF albuterol sulfate 90 mcg/actuation HFA aerosol inhaler 2 puff inhalation Q4-6H PRN (Reason: shortness of breath or wheezing) Qty: 6.7 0RF amoxicillin-pot clavulanate 875-125 mg tablet 1 tab PO Q12H Qty: 20 0RF meclizine 25 mg tablet 25 mg PO TID Qty: 20 0RF lidocaine HCl [Lidocaine Viscous] 2 % solution 1 appl topical QID PRN (Reason: head pain) 30 Days Qty: 100 1RF diphenhydramine HCl 25 mg capsule 50 mg PO Q6H PRN (Reason: allergic reaction) Qty: 20 0RF epinephrine [EpiPen 2-Pantera] 0.3 mg/0.3 mL auto-injector 0.3 mg IM Q10M PRN (Reason: anaphylaxis) Qty: 2 0RF Rx Instructions: for 3 doses Eucerin Itch Relief 0.1 % lotion 1 ea topical BID 14 Days Qty: 250 0RF hydrocortisone 2.5 % ointment 1 appl topical BID-TID PRN (Reason: itching) Qty: 454 1RF fexofenadine [Gemini Allergy] 180 mg tablet 180 mg PO DAILY Qty: 90 1RF magnesium oxide 400 mg (241.3 mg magnesium) tablet 400 mg PO BEDTIME 30 Days Qty: 30 6RF Rx Instructions: may hold for loose stools montelukast [Singulair] 10 mg tablet 10 mg PO BEDTIME 30 Days Qty: 30 11RF varenicline tartrate [Chantix Starting Month Box] 0.5 mg (11)- 1 mg (42) tablets,dose pack See Rx Instructions PO PER PKG DIR Qty: 42 0RF Rx Instructions: PO PER PKG DIR fluocinolone acetonide oil [DermOtic Oil] 0.01 % drops 5 drp otic (ears) BID 7 Days Qty: 20 0RF (DME) nebulizers [AeroEclipse II Nebulizer] Misc See Rx Instructions .Route Qty: 1 0RF Rx Instructions: As directed Pataday Once Daily Relief 0.7 % drops 1 drp ophthalmic (eye) Q24H PRN (Reason: itching) Qty: 5 0RF clonazepam 0.5 mg tablet 0.5 mg PO BID PRN (Reason: anxiety) 30 Days Qty: 60 1RF zolpidem [Ambien] 5 mg tablet 5 mg PO BEDTIME Qty: 30 1RF prednisone 20 mg tablet 20 mg PO QAM Qty: 5 0RF Referrals: Ron Waldron MD [Physician, Urology] - 3 days Print Language: Slovenian
--- NOTE | 2024-12-06 14:19 | ECG_ITS ---
Test Reason : DIZINESS Blood Pressure : */* mmHG Vent. Rate : 78 BPM Atrial Rate : 78 BPM P-R Int : 134 ms QRS Dur : 80 ms QT Int : 376 ms P-R-T Axes : 59 20 13 degrees QTcB Int : 428 ms Normal sinus rhythm Normal ECG When compared with ECG of 23-Nov-2024 15:52, No significant change was found Referred By: Rosa M Roberts Electronically Signed By: Harry Suárez
--- NOTE | 2024-12-06 14:54 | PC.NURSE ---
[place] Speaking. Patient presents to Ed c/o lower back pain, states spine pain w/ throbbing . increased frequency w/ urination and states dark urine. also reports headache with intermittent dizziness for days.
--- NOTE | 2024-12-06 14:55 | PC.NURSE ---
[place] speaking. Patient presents to ED c/o back pain rated 5/10 non radiating. Denies SOB, Denies injury. Patient c/o dizziness, orthos negative at this time. VSS and up to date. Plan of care on going
[2024-12-06 15:00] LABS: Appearance Urine Clear; Color Urine Yellow; Glucose Urine UA Negative (Negative); Leukocyte Esterase Urine Negative (Negative); Nitrite Urine Negative (Negative); PH 6.5 (5.0-9.0); Specific Gravity - Urine 1.015 (1.005-1.025); UMIC TRIGGER UACC YES; Urine Blood Small (1+) (Negative); Urine Ketones Negative (Negative); Urine Protein Negative (Neg-Trace)
--- NOTE | 2024-12-06 15:00 | ED.GENADULT ---
HPI - General Adult General Chief complaint: General Medical Stated complaint: back pain Time Seen by Provider: 12/06/24 14:28 History of Present Illness HPI narrative: Patient is a 53-year-old female presents today with having headache that is been ongoing for months. Also having back pain that is been ongoing for the last few days. Along with having pain on urination. Generalized malaise weakness. Patient from home. No coughing or congestion or upper respiratory symptoms. No bloody stool. No diaphoresis. From home. No focal weakness. No neck pain. No chest pain. Related Data Previous Rx's ?Medication ?Instructions ?Recorded cane #1 ea 09/06/22 acetaminophen 500 mg tablet 1,000 mg (2 x 500 mg) PO TID PRN 10/07/22 pain #20 tabs underpads (Bed Underpads) #100 ea 03/28/23 walker #1 ea 03/28/23 meclizine 12.5 mg tablet 12.5 mg PO TID PRN dizziness #14 11/21/23 tabs lidocaine 5 % topical patch 1 patch topical DAILY #30 ea 01/05/24 (Lidoderm) naloxone 10 mg/0.4 mL 2 mg (0.08 mL) subcut Q3M 30 days 01/09/24 injection,auto-injector #4 mL fluocinolone acetonide oil 0.01 % 5 drp otic (ears) BID 7 days #20 mL 04/03/24 ear drops (DermOtic Oil) nebulizers (AeroEclipse II #1 ea 04/03/24 Nebulizer) riboflavin (vitamin B2) 400 mg 400 mg PO DAILY 30 days #30 tabs 04/16/24 tablet montelukast 10 mg tablet 10 mg PO BEDTIME 30 days #30 tabs 04/22/24 (Singulair) varenicline tartrate 0.5 mg (11)-1 See Rx Instructions PO PER PKG DIR 04/22/24 mg (42) tablets in a dose pack #42 ea (Chantix Starting Month Box) cholecalciferol (vitamin D3) 50 50 mcg PO DAILY 90 days #90 tabs 04/24/24 mcg (2,000 unit) tablet olopatadine 0.7 % eye drops 1 drp ophthalmic (eye) Q24H PRN 08/11/24 (Pataday Once Daily Relief) itching #5 mL fluticasone propionate 50 1 spray intranasal BID PRN nasal 09/21/24 mcg/actuation nasal congestion #16 grams spray,suspension (Flonase Allergy Relief) albuterol sulfate 90 mcg/actuation 2 puff inhalation Q4-6H PRN 10/03/24 aerosol inhaler shortness of breath or wheezing #6.7 grams diphenhydramine HCl 25 mg capsule 50 mg (2 x 25 mg) PO Q6H PRN 10/06/24 allergic reaction #20 caps epinephrine 0.3 mg/0.3 mL 0.3 mg (0.3 mL) IM Q10M PRN 10/06/24 injection, auto-injector (EpiPen anaphylaxis #2 ea 2-Pantera) menthol 0.1 % lotion (Eucerin Itch 1 ea topical BID 14 days #250 mL 10/06/24 Relief) fexofenadine 180 mg tablet 180 mg PO DAILY #90 tabs 10/09/24 (Gemini Allergy) hydrocortisone 2.5 % topical 1 appl topical BID-TID PRN itching 10/09/24 ointment #454 grams clonazepam 0.5 mg tablet 0.5 mg PO BID PRN anxiety 30 days 10/16/24 #60 tabs zolpidem 5 mg tablet (Ambien) 5 mg PO BEDTIME #30 tabs 10/16/24 ipratropium 20 mcg-albuterol 100 1 puff PO QID 30 days #25 mL 10/21/24 mcg/actuation mist for inhalation (Combivent Respimat) rimegepant 75 mg disintegrating 75 mg PO ONCE PRN migraine 10/24/24 tablet (Nurtec ODT) headache 30 days #15 tabs magnesium oxide 400 mg (241.3 mg 400 mg PO BEDTIME 30 days #30 tabs 10/28/24 magnesium) tablet fenofibrate 54 mg tablet 54 mg PO DAILY 90 days #90 tabs 11/06/24 potassium chloride 20 mEq oral 20 meq PO DAILY 2 days #2 ea 11/11/24 packet blood pressure monitor (Blood #1 ea 11/21/24 Pressure Kit) lidocaine HCl 2 % mucosal solution 1 appl topical QID PRN head pain 11/26/24 (Lidocaine Viscous) 30 days #100 mL amoxicillin 875 mg-potassium 1 tab PO Q12H #20 tabs 12/03/24 clavulanate 125 mg tablet hydroxyzine HCl 50 mg tablet 50 mg PO Q8H PRN nausea and 12/03/24 vomiting #90 tabs meclizine 25 mg tablet 25 mg PO TID #20 tabs 12/03/24 prednisone 20 mg tablet 20 mg PO QAM #5 tabs 12/03/24 tramadol 50 mg tablet 50 mg PO BID PRN severe pain 12/03/24 (scale score 7-10) 30 days #60 tabs galcanezumab-gnlm 120 mg/mL 120 mg subcut Q30D 30 days #1 mL 12/05/24 subcutaneous pen injector (Emgality Pen) Allergies Allergy/AdvReac Type Severity Reaction Status Date / Time amitriptyline Allergy Intermediate headache Verified 12/06/24 14:11 ibuprofen (From Motrin) Allergy Intermediate ITCHY RASH Verified 12/06/24 14:11 shrimp Allergy Mild Unknown Verified 12/06/24 14:11 seafood Allergy Unknown Verified 12/06/24 14:11 gabapentin AdvReac Intermediate vomiting Verified 12/06/24 14:11 Review of Systems Review of Systems: Positive generalized malaise Yes all other systems are reviewed and are negative PMFSH Past Medical History Attestation statement: The following information was validated with the patient. Medical History Moderate recurrent major depression Left sided abdominal pain Generalized pruritus Smoking 1/2 pack a day or less Asthma-COPD overlap syndrome Acute maxillary sinusitis Otitis externa Hospital discharge follow-up Microscopic hematuria Physical exam Goiter Blurry vision Tobacco dependence Has daytime drowsiness Pulmonary nodules Dyspnea Hand pain Skin lesion Leg pain, bilateral Dyslipidemia Epigastric pain Essential hypertension Cervical cancer screening GERD (gastroesophageal reflux disease) HTN (hypertension) Migraine Anxiety Depression Right lower quadrant pain Fibromyalgia Surgical History Previous section History of breast lump/mass excision History of lithotripsy H/O LEEP H/O tubal ligation Family History Family History Father Myocardial infarction Mother Lung cancer Brother Liver cancer Maternal Grandfather Stomach cancer Maternal Grandmother No problems noted. Social History Social History Housing: Apartment Alcohol intake: never Patient Tobacco Use Status: Current someday Tobacco user Tobacco use type: Cigarette Cigarette Packs Per Day: 0.25 Cigarettes Per Day: 3 Smoked in Last 30 Days: Yes e-Cigarette/Vaping Use: Never Used Second Hand Smoke Exposure: Yes Use of substances other than those prescribed or required for medical reasons: No Advance Directives: No Advance Directives Information Provided: No Do you have a plan to hurt others: No Plan Patient : No service: No Current occupational status: disabled Gender identity: Female Cognitive needs: No Hearing needs: No Vision needs: No Physical Exam ED Vital Signs: Vital Signs - 24 hr 12/06/24 14:09 12/06/24 14:51 12/06/24 15:01 Temperature 97.8 F 97.5 F Pulse Rate 84 78 79 Respiratory Rate 16 14 Blood Pressure 145/81 H 137/81 128/80 Pulse Oximetry 95 98 Oxygen Delivery Method Room Air Room Air 12/06/24 15:02 12/06/24 15:03 Temperature Pulse Rate 79 79 Respiratory Rate Blood Pressure 137/81 126/81 Pulse Oximetry Oxygen Delivery Method BMI result Body Mass Index 27.5 Appearance: Alert. Oriented X3. No acute distress. Eyes: Pupils equal, round and reactive to light. ENT: Pharynx normal. Neck: Normal inspection. Neck supple. No lymph nodes noted. No crepitus CVS: Normal heart rate and rhythm. Pulses normal. Normal S1 and S2 Respiratory: No respiratory distress. Breath sounds normal. No Wheezing. No rales Abdomen: Soft and nontender. No rigidity. No distention. good BS x4 Skin: Skin warm and dry. Normal skin color. Normal skin turgor. Extremities: No lower extremity edema. Neurovascular intact to all extremities. No Lacerations. No Rash Neuro: Oriented X 3. No motor deficit. No sensory deficit. Moving all extermities. No slurred speech Medications Administered Discontinued Medications Generic Name Dose Route Start Last Admin Trade Name Freq PRN Reason Stop Dose Admin Acetaminophen 975 mg 12/06/24 15:01 12/06/24 15:18 Acetaminophen 325 Mg Tablet PO 12/06/24 15:02 975 mg ONCE ONE Administration Sodium Chloride 1,000 mls @ 999 mls/hr 12/06/24 15:15 12/06/24 16:19 Ns IV 12/06/24 16:15 Infused .Q1H1M ANDREW Infusion Medical Decision Making Medical Decision Making [facility] Narrative: Patient 53 years old presents today with generalized malaise weakness. Had a nonspecific headache also have back pain had frequency on urination patient's urine did not look infected. CT scan of the abdomen showed no acute evidence of kidney stone. It did show left-sided hydro question passed stone. Urine noninfected. No evidence for pyelo no evidence for cystitis. Will have patient follow-up on an outpatient basis with Urology. Patient's CT head also negative. No evidence of bleeding. Patient's sed rate is normal no evidence for temporal arteritis. Currently well-appearing no acute distress. Neurologically intact. Patient has an allergy to ibuprofen will ask patient take Tylenol drink a lot of fluid Differential Diagnosis Differential Diagnoses: The differential diagnosis associated with the presentation includes Headache, flank pain, hydronephrosis Admission/Observation Consideration of admission/observation: Escalation of care including admission/observation considered Lab Data [facility] Lab Attestation statement: I reviewed the patient's lab results. 12/06/24 15:08 12/06/24 15:08 Labs: Lab Results 12/06/24 12/06/24 12/06/24 Range/Units 14:48 14:50 15:08 WBC 8.3 (4.8-10.8) X10*3/uL RBC 4.35 (4.20-5.50) X10*6/uL Hgb 11.5 L (12.0-16.0) g/dl Hct 35.2 L (37.0-47.0) % MCV 80.9 (80.0-98.0) fL MCH 26.4 L (27.0-33.0) pg MCHC 32.7 (31.0-35.0) g/dl RDW 15.0 (11.0-16.0) % Plt Count 262 (160-400) X10*3/uL MPV 9.8 (9.4-12.3) fL Immature Gran % (Auto) 0.7 H (0.0-0.4) % Neut % (Auto) 77.2 H (45-73) % Lymph % (Auto) 17.2 L (20-40) % [place] % (Auto) 3.9 (2-11) % Eos % (Auto) 0.4 (0-4) % Baso % (Auto) 0.6 (0-2) % Lymph # (Auto) 1.4 (1.2-4.9) X10*3/uL [place] # (Auto) 0.3 (0.1-1.2) X10*3/uL Eos # (Auto) 0.0 (0.0-0.4) X10*3/uL Baso # (Auto) 0.1 (0.0-0.2) X10*3/uL Abs Immat Gran (auto) 0.06 H (0.00-0.03) X10*3/uL Absolute Neuts (auto) 6.4 (2.0-8.3) x10*3/uL Absolute Nucleated RBC 0.000 (0.0-0.012) X10*3/uL Nucleated RBC % (auto) 0.0 (0.0-0.2) /100WBC Sodium 144 (135-145) mmol/L Potassium 3.6 (3.3-5.1) mmol/L Chloride 111 H (96-108) mmol/L Carbon Dioxide 24 (22-29) mmol/L Anion Gap 13 (12-20) BUN 17 H (9-16) mg/dL Creatinine 0.81 (0.5-1.4) mg/dL Estim Creat Clear Calc 79.4 Estimated GFR > 60 Random Glucose 141 H (60-115) mg/dL Calcium 9.3 (8.4-10.2) mg/dL Magnesium 1.9 (1.6-2.6) mg/dL Total Bilirubin 0.4 (0.0-1.0) mg/dL Direct Bilirubin 0.1 (0.0-0.5) mg/dL AST 16 (5-31) U/L ALT 14 (0-31) U/L Alkaline Phosphatase 108 (39-117) U/L Troponin I High Sens < 2.7 (<3.5-17.0) ng/L Total Protein 6.9 (6.5-8.0) g/dL Albumin 4.2 (3.5-5.0) g/dL Urine Color Yellow Urine Appearance Clear Urine pH 6.5 (5.0-9.0) Ur Specific [place] 1.015 (1.005-1.025) Urine Protein Negative (Neg-Trace) mg/dL Urine Glucose (UA) Negative (Negative) mg/dL Urine Ketones Negative (Negative) mg/dL Urine Blood Small (1+) H (Negative) Urine Nitrite Negative (Negative) Ur Leukocyte Esterase Negative (Negative) Urine RBC 6-10 H (0-2) /HPF Urine WBC 0-5 (0-5) /HPF Ur Squamous Epith Cells 3-5 (0-2) /HPF Urine Bacteria None Seen (None Seen) Hyaline Casts 0-2 (0-2) /LPF Influenza Type A (PCR) NEGATIVE (Negative) Influenza Type B (PCR) NEGATIVE (Negative) RSV RNA Qual (PCR) NEGATIVE (Negative) SARS-CoV-2 RNA (RT-PCR) NEGATIVE (Negative) Independent Interpretation I performed an independent interpretation of an: EKG (Sinus heart rate is 80 [place] QRS QTC normal no acute ST segment elevation.) and CT Scan (CT head grossly negative for any acute evidence of bleeding. CTA abdomen pelvis showed no gross obstruction.) Radiology Impression Discussion of test interpretation with radiology: I have reviewed the radiologist's reading. External Record Review External record reviewed: Office record Chronic Conditions Fibromyalgia Social Determinants Patient?s care significantly limited by Social Determinants of Health including: Problems related to primary support group Discharge Plan Discharge Clinical Impression: Headache, Hydronephrosis Patient Disposition: Home, Self-Care Instructions: Acute Headache (DC), Hydronephrosis (ED) Prescriptions: No Action (DME) cane Device See Rx Instructions .Route Qty: 1 0RF Rx Instructions: As directed (DME) walker Misc See Rx Instructions .Route Qty: 1 0RF Rx Instructions: To be use lifetime (DME) underpads [Bed Underpads] Pad See Rx Instructions .Route Qty: 100 0RF Rx Instructions: As directed naloxone 10 mg/0.4 mL auto-injector 2 mg subcut Q3M 30 Days Qty: 4 0RF Rx Instructions: until desired response riboflavin (vitamin B2) 400 mg tablet 400 mg PO DAILY 30 Days Qty: 30 6RF cholecalciferol (vitamin D3) 50 mcg (2,000 unit) tablet 50 mcg PO DAILY 90 Days Qty: 90 1RF Combivent Respimat 20-100 mcg/actuation mist 1 puff PO QID 30 Days Qty: 25 11RF Patient Comments: Pulmo given Nurtec ODT 75 mg tablet,disintegrating 75 mg PO ONCE MDD 1 tab PRN (Reason: migraine headache) 30 Days Qty: 15 6RF Rx Instructions: Prior authorization approved through 04/22/2025 fenofibrate 54 mg tablet 54 mg PO DAILY 90 Days Qty: 90 1RF potassium chloride 20 mEq packet 20 meq PO DAILY 2 Days Qty: 2 0RF (DME) blood pressure monitor [Blood Pressure Kit] Kit See Rx Instructions .ROUTE .MEDSUPPLY Qty: 1 0RF Rx Instructions: As directed hydroxyzine HCl 50 mg tablet 50 mg PO Q8H PRN (Reason: nausea and vomiting) Qty: 90 1RF tramadol 50 mg tablet 50 mg PO BID PRN (Reason: severe pain (scale score 7-10)) 30 Days Qty: 60 0RF Emgality Pen 120 mg/mL pen injector 120 mg subcut Q30D 30 Days Qty: 1 6RF Rx Instructions: Maintenance dose of 120 mg subcu q.month. [place] APPROVED 12/04/24-06/05/25 acetaminophen 500 mg tablet 1,000 mg PO TID PRN (Reason: pain) Qty: 20 0RF lidocaine [Lidoderm] 5 % adhesive patch,medicated 1 patch topical DAILY Qty: 30 0RF Rx Instructions: leave on most painful area for up to 12 hrs fluticasone propionate [Flonase Allergy Relief] 50 mcg/actuation spray,suspension 1 spray intranasal BID PRN (Reason: nasal congestion) Qty: 16 0RF Rx Instructions: administer into each nostril meclizine 12.5 mg tablet 12.5 mg PO TID PRN (Reason: dizziness) Qty: 14 0RF albuterol sulfate 90 mcg/actuation HFA aerosol inhaler 2 puff inhalation Q4-6H PRN (Reason: shortness of breath or wheezing) Qty: 6.7 0RF amoxicillin-pot clavulanate 875-125 mg tablet 1 tab PO Q12H Qty: 20 0RF meclizine 25 mg tablet 25 mg PO TID Qty: 20 0RF lidocaine HCl [Lidocaine Viscous] 2 % solution 1 appl topical QID PRN (Reason: head pain) 30 Days Qty: 100 1RF diphenhydramine HCl 25 mg capsule 50 mg PO Q6H PRN (Reason: allergic reaction) Qty: 20 0RF epinephrine [EpiPen 2-Pantera] 0.3 mg/0.3 mL auto-injector 0.3 mg IM Q10M PRN (Reason: anaphylaxis) Qty: 2 0RF Rx Instructions: for 3 doses Eucerin Itch Relief 0.1 % lotion 1 ea topical BID 14 Days Qty: 250 0RF hydrocortisone 2.5 % ointment 1 appl topical BID-TID PRN (Reason: itching) Qty: 454 1RF fexofenadine [Gemini Allergy] 180 mg tablet 180 mg PO DAILY Qty: 90 1RF magnesium oxide 400 mg (241.3 mg magnesium) tablet 400 mg PO BEDTIME 30 Days Qty: 30 6RF Rx Instructions: may hold for loose stools montelukast [Singulair] 10 mg tablet 10 mg PO BEDTIME 30 Days Qty: 30 11RF varenicline tartrate [Chantix Starting Month Box] 0.5 mg (11)- 1 mg (42) tablets,dose pack See Rx Instructions PO PER PKG DIR Qty: 42 0RF Rx Instructions: PO PER PKG DIR fluocinolone acetonide oil [DermOtic Oil] 0.01 % drops 5 drp otic (ears) BID 7 Days Qty: 20 0RF (DME) nebulizers [AeroEclipse II Nebulizer] Misc See Rx Instructions .Route Qty: 1 0RF Rx Instructions: As directed Pataday Once Daily Relief 0.7 % drops 1 drp ophthalmic (eye) Q24H PRN (Reason: itching) Qty: 5 0RF clonazepam 0.5 mg tablet 0.5 mg PO BID PRN (Reason: anxiety) 30 Days Qty: 60 1RF zolpidem [Ambien] 5 mg tablet 5 mg PO BEDTIME Qty: 30 1RF prednisone 20 mg tablet 20 mg PO QAM Qty: 5 0RF Referrals: Ron Waldron MD [Physician, Urology] - 3 days Print Language: Tajik
[2024-12-06 15:05] LABS: Bacteria Urine None Seen (None Seen); Hyaline Casts Urine 0-2 /LPF (0-2); WBC Urine 0-5 /HPF (0-5)
[2024-12-06 15:13] LABS: MANUAL DIFF FLAG NO
[2024-12-06 15:15] LABS: Basophils Absolute Auto 0.1 X10*3/uL (0.0-0.2); Basophils Percent Auto 0.6 % (0-2); Eosinophils Percent Auto 0.4 % (0-4); Hematocrit 35.2 % (37.0-47.0); Hemoglobin 11.5 g/dl (12.0-16.0); Imm Gran Abs Auto 0.06 X10*3/uL (0.00-0.03); Imm Gran Pct Auto 0.7 % (0.0-0.4); Lymphocytes Absolute Auto 1.4 X10*3/uL (1.2-4.9); Lymphocytes Percent Auto 17.2 % (20-40); Mean Corpuscular HGB Conc 32.7 g/dl (31.0-35.0); Mean Corpuscular Hemoglobin 26.4 pg (27.0-33.0); Mean Corpuscular Volume 80.9 fL (80.0-98.0); Mean Platelet Volume 9.8 fL (9.4-12.3); Monocytes Absolute Auto 0.3 X10*3/uL (0.1-1.2); Monocytes Percent Auto 3.9 % (2-11); Neutrophils Absolute Auto 6.4 x10*3/uL (2.0-8.3); Neutrophils Percent Auto 77.2 % (45-73); Platelet Count 262 X10*3/uL (160-400); Red Blood Count 4.35 X10*6/uL (4.20-5.50); White Blood Count 8.3 X10*3/uL (4.8-10.8)
[2024-12-06] MEDS: Acetaminophen 325 MG TABLET 975 MG PO (15:18)
[2024-12-06] MEDS: 0.9 % Sodium Chloride 1,000 ML 999 ML IV (15:19)
[2024-12-06 15:32] LABS: Alanine Aminotransferase 14 U/L (0-31); Albumin Level 4.2 g/dL (3.5-5.0); Alkaline Phosphatase 108 U/L (39-117); Anion Gap 13 (12-20); Aspartate Amino Transferase 16 U/L (5-31); Bilirubin Direct 0.1 mg/dL (0.0-0.5); Bilirubin Total 0.4 mg/dL (0.0-1.0); Blood Urea Nitrogen 17 mg/dL (9-16); Calcium 9.3 mg/dL (8.4-10.2); Carbon Dioxide 24 mmol/L (22-29); Chloride 111 mmol/L (96-108); Creatinine Clr Calc Pharmacy 79.4; Estimated Glomerular Filt Rate > 60; Glucose Random 141 mg/dL (60-115); Magnesium 1.9 mg/dL (1.6-2.6); Potassium 3.6 mmol/L (3.3-5.1); Sodium 144 mmol/L (135-145); Total Protein 6.9 g/dL (6.5-8.0)
[2024-12-06 15:37] LABS: Influenza A PCR NEGATIVE (Negative); Influenza B PCR NEGATIVE (Negative); Resp Syncy Virus RNA Qual PCR NEGATIVE (Negative); SARS COV2 PCR INHOUSE NEGATIVE (Negative)
[2024-12-06 15:40] LABS: Troponin-I High Sensitivity < 2.7 ng/L (<3.5-17.0)
== END 2024-12-06 17:42 | disposition home or self-care (01) ==
PROVIDERS: Physician Assistant Medical; Emergency Provider Emergency Medicine Emergency Medical Services; PCP Internal Medicine
DX: R51.9 Headache, unspecified (principal); N13.30 Unspecified hydronephrosis; Z03.818 Encounter for observation for suspected exposure to other biological agents ruled out; N32.89 Other specified disorders of bladder; I10 Essential (primary) hypertension; E78.5 Hyperlipidemia, unspecified; F17.210 Nicotine dependence, cigarettes, uncomplicated; Z79.899 Other long term (current) drug therapy
CPT/HCPCS: 0241U; 36415; 70450; 74176; 80048; 80076; 81001; 81003; 83735; 84484; 85025; 93005; 96361; 96374; 96375; 99284; 99285

== ENCOUNTER → 2024-12-06 14:19 | Outpatient (BNV) | payer OTHER, SELFPAY | PROVIDERS: Emergency Provider Emergency Medicine Emergency Medical Services; PCP Internal Medicine; Visit Provider Internal Medicine Cardiovascular Disease | DX: R42 Dizziness and giddiness (principal) | CPT/HCPCS: 93010 ==

== ENCOUNTER → 2024-12-06 14:59 | Outpatient (BNV) | payer OTHER, SELFPAY | PROVIDERS: Emergency Provider Emergency Medicine Emergency Medical Services; PCP Internal Medicine; Visit Provider Radiology Diagnostic Radiology | DX: N28.1 Cyst of kidney, acquired (principal); R51.9 Headache, unspecified | CPT/HCPCS: 70450; 74176 ==

== ENCOUNTER 2024-12-22 15:55 | Emergency (ER) | payer OTHER, SELFPAY ==
--- NOTE | ~2024-12-22 | CT_ITS ---
CLINICAL HISTORY: headache, dizziness CT head without contrast Comparison: CT/SR - CT HEAD/BRAIN WO IV CON - 12/06/24 15:50 EDT Findings: No intra-axial mass, midline shift, hydrocephalus, or acute hemorrhage. No significant atrophy-like change or white matter disease. There is no sinus or mastoid fluid. The orbits are unremarkable. There is no acute fracture. IMPRESSION: 1. No acute intracranial findings. This document has been electronically signed by: Diane Castillo MD on 12/22/2024 21:35:07
[2024-12-22 16:21] VITALS: BP 201/90; PULSE 89; RESP 16; TEMP 36.4; O2SAT 98; BMI 31.4
--- NOTE | 2024-12-22 16:24 | ED.GENADULT ---
HPI - General Adult General Chief complaint: Headache Stated complaint: Dental pain/Face swelling Time Seen by Provider: 12/22/24 23:38 Related Data Previous Rx's ?Medication ?Instructions ?Recorded cane #1 ea 09/06/22 acetaminophen 500 mg tablet 1,000 mg (2 x 500 mg) PO TID PRN 10/07/22 pain #20 tabs underpads (Bed Underpads) #100 ea 03/28/23 walker #1 ea 03/28/23 meclizine 12.5 mg tablet 12.5 mg PO TID PRN dizziness #14 11/21/23 tabs lidocaine 5 % topical patch 1 patch topical DAILY #30 ea 01/05/24 (Lidoderm) naloxone 10 mg/0.4 mL 2 mg (0.08 mL) subcut Q3M 30 days 01/09/24 injection,auto-injector #4 mL fluocinolone acetonide oil 0.01 % 5 drp otic (ears) BID 7 days #20 mL 04/03/24 ear drops (DermOtic Oil) nebulizers (AeroEclipse II #1 ea 04/03/24 Nebulizer) riboflavin (vitamin B2) 400 mg 400 mg PO DAILY 30 days #30 tabs 04/16/24 tablet montelukast 10 mg tablet 10 mg PO BEDTIME 30 days #30 tabs 04/22/24 (Singulair) varenicline tartrate 0.5 mg (11)-1 See Rx Instructions PO PER PKG DIR 04/22/24 mg (42) tablets in a dose pack #42 ea (Chantix Starting Month Box) cholecalciferol (vitamin D3) 50 50 mcg PO DAILY 90 days #90 tabs 04/24/24 mcg (2,000 unit) tablet olopatadine 0.7 % eye drops 1 drp ophthalmic (eye) Q24H PRN 08/11/24 (Pataday Once Daily Relief) itching #5 mL fluticasone propionate 50 1 spray intranasal BID PRN nasal 09/21/24 mcg/actuation nasal congestion #16 grams spray,suspension (Flonase Allergy Relief) albuterol sulfate 90 mcg/actuation 2 puff inhalation Q4-6H PRN 10/03/24 aerosol inhaler shortness of breath or wheezing #6.7 grams diphenhydramine HCl 25 mg capsule 50 mg (2 x 25 mg) PO Q6H PRN 10/06/24 allergic reaction #20 caps epinephrine 0.3 mg/0.3 mL 0.3 mg (0.3 mL) IM Q10M PRN 10/06/24 injection, auto-injector (EpiPen anaphylaxis #2 ea 2-Pantera) menthol 0.1 % lotion (Eucerin Itch 1 ea topical BID 14 days #250 mL 10/06/24 Relief) fexofenadine 180 mg tablet 180 mg PO DAILY #90 tabs 10/09/24 (Gemini Allergy) hydrocortisone 2.5 % topical 1 appl topical BID-TID PRN itching 10/09/24 ointment #454 grams clonazepam 0.5 mg tablet 0.5 mg PO BID PRN anxiety 30 days 10/16/24 #60 tabs zolpidem 5 mg tablet (Ambien) 5 mg PO BEDTIME #30 tabs 10/16/24 rimegepant 75 mg disintegrating 75 mg PO ONCE PRN migraine 10/24/24 tablet (Nurtec ODT) headache 30 days #15 tabs magnesium oxide 400 mg (241.3 mg 400 mg PO BEDTIME 30 days #30 tabs 10/28/24 magnesium) tablet fenofibrate 54 mg tablet 54 mg PO DAILY 90 days #90 tabs 11/06/24 potassium chloride 20 mEq oral 20 meq PO DAILY 2 days #2 ea 11/11/24 packet blood pressure monitor (Blood #1 ea 11/21/24 Pressure Kit) lidocaine HCl 2 % mucosal solution 1 appl topical QID PRN head pain 11/26/24 (Lidocaine Viscous) 30 days #100 mL amoxicillin 875 mg-potassium 1 tab PO Q12H #20 tabs 12/03/24 clavulanate 125 mg tablet hydroxyzine HCl 50 mg tablet 50 mg PO Q8H PRN nausea and 12/03/24 vomiting #90 tabs meclizine 25 mg tablet 25 mg PO TID #20 tabs 12/03/24 prednisone 20 mg tablet 20 mg PO QAM #5 tabs 12/03/24 tramadol 50 mg tablet 50 mg PO BID PRN severe pain 12/03/24 (scale score 7-10) 30 days #60 tabs galcanezumab-gnlm 120 mg/mL 120 mg subcut Q30D 30 days #1 mL 12/05/24 subcutaneous pen injector (Emgality Pen) ipratropium 20 mcg-albuterol 100 1 puff PO QID 30 days #25 mL 12/10/24 mcg/actuation mist for inhalation (Combivent Respimat) paroxetine HCl 10 mg tablet 10 mg PO DAILY #30 tabs 12/18/24 Allergies Allergy/AdvReac Type Severity Reaction Status Date / Time amitriptyline Allergy Intermediate headache Verified 12/22/24 16:24 ibuprofen (From Motrin) Allergy Intermediate ITCHY RASH Verified 12/22/24 16:24 shrimp Allergy Mild Unknown Verified 12/22/24 16:24 seafood Allergy Unknown Verified 12/22/24 16:24 gabapentin AdvReac Intermediate vomiting Verified 12/22/24 16:24 PMFSH Past Medical History Medical History Moderate recurrent major depression Left sided abdominal pain Generalized pruritus Smoking 1/2 pack a day or less Asthma-COPD overlap syndrome Acute maxillary sinusitis Otitis externa Hospital discharge follow-up Microscopic hematuria Physical exam Goiter Blurry vision Tobacco dependence Has daytime drowsiness Pulmonary nodules Dyspnea Hand pain Skin lesion Leg pain, bilateral Dyslipidemia Epigastric pain Essential hypertension Cervical cancer screening GERD (gastroesophageal reflux disease) HTN (hypertension) Migraine Anxiety Depression Right lower quadrant pain Fibromyalgia Surgical History Previous section History of breast lump/mass excision History of lithotripsy H/O LEEP H/O tubal ligation Family History Family History Father Myocardial infarction Mother Lung cancer Brother Liver cancer Maternal Grandfather Stomach cancer Maternal Grandmother No problems noted. Social History Social History Housing: Apartment Alcohol intake: never Patient Tobacco Use Status: Current someday Tobacco user Tobacco use type: Cigarette Cigarette Packs Per Day: 0.25 Cigarettes Per Day: 3 e-Cigarette/Vaping Use: Never Used Second Hand Smoke Exposure: Yes Advance Directives: No Advance Directives Information Provided: Yes Do you have a plan to hurt others: No Plan service: No Current occupational status: disabled Gender identity: Female Cognitive needs: No Hearing needs: No Vision needs: No Physical Exam ED Vital Signs: Vital Signs - 24 hr 12/22/24 16:21 12/22/24 23:45 Temperature 97.5 F 98.6 F Pulse Rate 89 77 Respiratory Rate 16 Blood Pressure 201/90 H 125/70 Pulse Oximetry 98 99 Oxygen Delivery Method Room Air BMI result Body Mass Index 31.4 Course Course Course Narrative: This is an RME performed by Darrick Yoo CNP: Additional HPI, ROS, PE not included below will be deferred to primary provider. Patient is a 54-year-old female who presents emergency department for evaluation. She reports since 12/20/2024, 3 days ago she has been experiencing a posterior headache, dizziness where she feels off balance swinging side to side while walking and while sitting feels as though she is being pulled forward. She has subjective swelling in the fullness sensation diffusely throughout her face. Denies having any overt dental pain but she did try to go to the dentist today for evaluation they were however closed. Has been off her antihypertensive medications over the past 2 weeks; hydrochlorothiazide; hypertensive in triage 201/90. NIH stroke score 0 Plan; head CT, serum labs, ECG Reevaluation(s) Reevaluation #1: The volume and acuity were high overnight, I went to assess the patient, she had left without completing treatment Medical Decision Making Lab Data 12/22/24 18:50 12/22/24 18:50 Labs: Lab Results 12/22/24 Range/Units 18:50 WBC 7.3 (4.8-10.8) X10*3/uL RBC 4.38 (4.20-5.50) X10*6/uL Hgb 11.7 L (12.0-16.0) g/dl Hct 35.6 L (37.0-47.0) % MCV 81.3 (80.0-98.0) fL MCH 26.7 L (27.0-33.0) pg MCHC 32.9 (31.0-35.0) g/dl RDW 15.0 (11.0-16.0) % Plt Count 294 (160-400) X10*3/uL MPV 9.6 (9.4-12.3) fL Immature Gran % (Auto) 0.3 (0.0-0.4) % Neut % (Auto) 63.8 (45-73) % Lymph % (Auto) 26.8 (20-40) % Braxton % (Auto) 6.7 (2-11) % Eos % (Auto) 1.9 (0-4) % Baso % (Auto) 0.5 (0-2) % Lymph # (Auto) 2.0 (1.2-4.9) X10*3/uL Braxton # (Auto) 0.5 (0.1-1.2) X10*3/uL Eos # (Auto) 0.1 (0.0-0.4) X10*3/uL Baso # (Auto) 0.0 (0.0-0.2) X10*3/uL Abs Immat Gran (auto) 0.02 (0.00-0.03) X10*3/uL Absolute Neuts (auto) 4.7 (2.0-8.3) x10*3/uL Absolute Nucleated RBC 0.000 (0.0-0.012) X10*3/uL Nucleated RBC % (auto) 0.0 (0.0-0.2) /100WBC Sodium 144 (135-145) mmol/L Potassium 3.8 (3.3-5.1) mmol/L Chloride 110 H (96-108) mmol/L Carbon Dioxide 26 (22-29) mmol/L Anion Gap 12 (12-20) BUN 13 (9-16) mg/dL Creatinine 0.86 (0.5-1.4) mg/dL Estim Creat Clear Calc 58.0 Estimated GFR > 60 Random Glucose 97 (60-115) mg/dL Calcium 8.8 (8.4-10.2) mg/dL Total Bilirubin 0.4 (0.0-1.0) mg/dL AST 19 (5-31) U/L ALT 16 (0-31) U/L Alkaline Phosphatase 108 (39-117) U/L Troponin I High Sens < 2.7 (<3.5-17.0) ng/L Total Protein 7.1 (6.5-8.0) g/dL Albumin 4.0 (3.5-5.0) g/dL Discharge Plan Discharge Clinical Impression: Headache Patient Disposition: Left W/O Completing Treatment Prescriptions: No Action (DME) cane Device See Rx Instructions .Route Qty: 1 0RF Rx Instructions: As directed (DME) walker Misc See Rx Instructions .Route Qty: 1 0RF Rx Instructions: To be use lifetime (DME) underpads [Bed Underpads] Pad See Rx Instructions .Route Qty: 100 0RF Rx Instructions: As directed naloxone 10 mg/0.4 mL auto-injector 2 mg subcut Q3M 30 Days Qty: 4 0RF Rx Instructions: until desired response riboflavin (vitamin B2) 400 mg tablet 400 mg PO DAILY 30 Days Qty: 30 6RF cholecalciferol (vitamin D3) 50 mcg (2,000 unit) tablet 50 mcg PO DAILY 90 Days Qty: 90 1RF Nurtec ODT 75 mg tablet,disintegrating 75 mg PO ONCE MDD 1 tab PRN (Reason: migraine headache) 30 Days Qty: 15 6RF Rx Instructions: Prior authorization approved through 04/22/2025 fenofibrate 54 mg tablet 54 mg PO DAILY 90 Days Qty: 90 1RF potassium chloride 20 mEq packet 20 meq PO DAILY 2 Days Qty: 2 0RF (DME) blood pressure monitor [Blood Pressure Kit] Kit See Rx Instructions .ROUTE .MEDSUPPLY Qty: 1 0RF Rx Instructions: As directed hydroxyzine HCl 50 mg tablet 50 mg PO Q8H PRN (Reason: nausea and vomiting) Qty: 90 1RF tramadol 50 mg tablet 50 mg PO BID PRN (Reason: severe pain (scale score 7-10)) 30 Days Qty: 60 0RF Emgality Pen 120 mg/mL pen injector 120 mg subcut Q30D 30 Days Qty: 1 6RF Rx Instructions: Maintenance dose of 120 mg subcu q.month. [place] APPROVED 12/04/24-06/05/25 Combivent Respimat 20-100 mcg/actuation mist 1 puff PO QID 30 Days Qty: 25 11RF Patient Comments: Pulmo given acetaminophen 500 mg tablet 1,000 mg PO TID PRN (Reason: pain) Qty: 20 0RF lidocaine [Lidoderm] 5 % adhesive patch,medicated 1 patch topical DAILY Qty: 30 0RF Rx Instructions: leave on most painful area for up to 12 hrs fluticasone propionate [Flonase Allergy Relief] 50 mcg/actuation spray,suspension 1 spray intranasal BID PRN (Reason: nasal congestion) Qty: 16 0RF Rx Instructions: administer into each nostril meclizine 12.5 mg tablet 12.5 mg PO TID PRN (Reason: dizziness) Qty: 14 0RF albuterol sulfate 90 mcg/actuation HFA aerosol inhaler 2 puff inhalation Q4-6H PRN (Reason: shortness of breath or wheezing) Qty: 6.7 0RF amoxicillin-pot clavulanate 875-125 mg tablet 1 tab PO Q12H Qty: 20 0RF meclizine 25 mg tablet 25 mg PO TID Qty: 20 0RF lidocaine HCl [Lidocaine Viscous] 2 % solution 1 appl topical QID PRN (Reason: head pain) 30 Days Qty: 100 1RF diphenhydramine HCl 25 mg capsule 50 mg PO Q6H PRN (Reason: allergic reaction) Qty: 20 0RF epinephrine [EpiPen 2-Pantera] 0.3 mg/0.3 mL auto-injector 0.3 mg IM Q10M PRN (Reason: anaphylaxis) Qty: 2 0RF Rx Instructions: for 3 doses Eucerin Itch Relief 0.1 % lotion 1 ea topical BID 14 Days Qty: 250 0RF hydrocortisone 2.5 % ointment 1 appl topical BID-TID PRN (Reason: itching) Qty: 454 1RF fexofenadine [Gemini Allergy] 180 mg tablet 180 mg PO DAILY Qty: 90 1RF magnesium oxide 400 mg (241.3 mg magnesium) tablet 400 mg PO BEDTIME 30 Days Qty: 30 6RF Rx Instructions: may hold for loose stools montelukast [Singulair] 10 mg tablet 10 mg PO BEDTIME 30 Days Qty: 30 11RF varenicline tartrate [Chantix Starting Month Box] 0.5 mg (11)- 1 mg (42) tablets,dose pack See Rx Instructions PO PER PKG DIR Qty: 42 0RF Rx Instructions: PO PER PKG DIR fluocinolone acetonide oil [DermOtic Oil] 0.01 % drops 5 drp otic (ears) BID 7 Days Qty: 20 0RF (DME) nebulizers [AeroEclipse II Nebulizer] Misc See Rx Instructions .Route Qty: 1 0RF Rx Instructions: As directed Pataday Once Daily Relief 0.7 % drops 1 drp ophthalmic (eye) Q24H PRN (Reason: itching) Qty: 5 0RF clonazepam 0.5 mg tablet 0.5 mg PO BID PRN (Reason: anxiety) 30 Days Qty: 60 1RF zolpidem [Ambien] 5 mg tablet 5 mg PO BEDTIME Qty: 30 1RF paroxetine HCl 10 mg tablet 10 mg PO DAILY Qty: 30 2RF prednisone 20 mg tablet 20 mg PO QAM Qty: 5 0RF Discharge Date/Time: 12/23/24 01:12
--- NOTE | 2024-12-22 18:25 | ECG_ITS ---
Test Reason : dizzy Blood Pressure : */* mmHG Vent. Rate : 75 BPM Atrial Rate : 75 BPM P-R Int : 132 ms QRS Dur : 74 ms QT Int : 378 ms P-R-T Axes : 39 7 3 degrees QTcB Int : 422 ms Normal sinus rhythm Minimal voltage criteria for LVH, may be normal variant ( R in aVL ) Borderline ECG When compared with ECG of 06-Dec-2024 14:32, No significant change was found Referred By: Anisa Yoo Electronically Signed By: Harry Suárez
[2024-12-22 18:54] LABS: MANUAL DIFF FLAG NO
[2024-12-22 18:58] LABS: Hematocrit 35.6 % (37.0-47.0); Hemoglobin 11.7 g/dl (12.0-16.0); Imm Gran Abs Auto 0.02 X10*3/uL (0.00-0.03); Imm Gran Pct Auto 0.3 % (0.0-0.4); Lymphocytes Absolute Auto 2.0 X10*3/uL (1.2-4.9); Mean Corpuscular HGB Conc 32.9 g/dl (31.0-35.0); Mean Corpuscular Hemoglobin 26.7 pg (27.0-33.0); Mean Corpuscular Volume 81.3 fL (80.0-98.0); NRBC Abs Auto 0.000 X10*3/uL (0.0-0.012); NRBC Pct Auto 0.0 /100WBC (0.0-0.2); Platelet Count 294 X10*3/uL (160-400); Red Blood Count 4.38 X10*6/uL (4.20-5.50); White Blood Count 7.3 X10*3/uL (4.8-10.8)
[2024-12-22 19:14] LABS: Alanine Aminotransferase 16 U/L (0-31); Albumin Level 4.0 g/dL (3.5-5.0); Alkaline Phosphatase 108 U/L (39-117); Anion Gap 12 (12-20); Aspartate Amino Transferase 19 U/L (5-31); Blood Urea Nitrogen 13 mg/dL (9-16); Calcium 8.8 mg/dL (8.4-10.2); Carbon Dioxide 26 mmol/L (22-29); Chloride 110 mmol/L (96-108); Creatinine Clr Calc Pharmacy 58.0; Estimated Glomerular Filt Rate > 60; Potassium 3.8 mmol/L (3.3-5.1); Sodium 144 mmol/L (135-145); Total Protein 7.1 g/dL (6.5-8.0)
[2024-12-22 19:25] LABS: Troponin-I High Sensitivity < 2.7 ng/L (<3.5-17.0)
[2024-12-22 23:45] VITALS: BP 125/70; PULSE 77; TEMP 37; O2SAT 99
== END 2024-12-23 01:12 | disposition left against medical advice (07) ==
PROVIDERS: Nurse Practitioner Family; Emergency Provider Emergency Medicine; PCP Internal Medicine
DX: R51.9 Headache, unspecified (principal); K08.89 Other specified disorders of teeth and supporting structures; R42 Dizziness and giddiness; R94.31 Abnormal electrocardiogram [ECG] [EKG]; F17.210 Nicotine dependence, cigarettes, uncomplicated
CPT/HCPCS: 36415; 70450; 80053; 84484; 85025; 93005; 99283; 99284

== ENCOUNTER → 2024-12-22 18:25 | Outpatient (BNV) | payer OTHER, SELFPAY | PROVIDERS: PCP Internal Medicine; Visit Provider Student in an Organized Health Care Education/Training Program | DX: R51.9 Headache, unspecified (principal); R42 Dizziness and giddiness | CPT/HCPCS: 70450 ==

== ENCOUNTER → 2024-12-22 18:25 | Outpatient (BNV) | payer OTHER, SELFPAY | PROVIDERS: Emergency Provider Emergency Medicine; PCP Internal Medicine; Visit Provider Internal Medicine Cardiovascular Disease | DX: R42 Dizziness and giddiness (principal) | CPT/HCPCS: 93010 ==

== ENCOUNTER 2024-12-23 14:47 | Outpatient (AMB) | payer OTHER, SELFPAY ==
--- NOTE | 2024-12-23 14:57 | AM.OFFWIN_ITS ---
Intake Vital Signs 12/23/24 14:58 Height 4 ft 9.87 in Weight 149 lb BMI 31.3 BP 120/68 Blood Pressure Location Lt brachial Position Sitting Pulse 67 Pulse Source Pulse Oximeter Temp 98.1 F Temp Source Oral Pulse Oximetry (%) 96 Oxygen Delivery Method Room Air Intake Visit Reasons: EP swollen & rash on face Intake Note: presents with right side of face swelling, itchy face, bruising under eyes, headache, bilateral ear pressure/vibration for 3 days Patient Tobacco Use Status: Current someday Tobacco user Allergies amitriptyline Allergy (Intermediate, Verified 12/23/24 15:03) headache ibuprofen (From Motrin) Allergy (Intermediate, Verified 12/23/24 15:03) ITCHY RASH shrimp Allergy (Mild, Verified 12/23/24 15:03) Unknown seafood Allergy (Verified 12/23/24 15:03) Unknown gabapentin Adverse Reaction (Intermediate, Verified 12/23/24 15:03) vomiting Do you need a note to return to daycare/school/sports/work: No HPI HPI Comments History of Present Illness Details Japanese video official court interpreter used for this visit. History - The patient is a 54-year-old female pr esenting with facial swelling and pain. - The swelling began after the , with the patient noting pain and a sensation of fluid under the eyes. - The swelling has decreased since onset , but the patient reports persistent facial pain, particularly in the bones, ears, and eyes. - The patient denies any known allergic reactions to food or substances used on the 19 of December. - The patient has a history of asthma, e xperiencing difficulty breathing, especially in the morning, and uses an inhaler and breathing exercises for management. - The patient reports having an EpiPen a nd Benadryl but has not used them recently due to side effects from Benadryl. - The patient experiences dizziness and imbalance, particularly when walking, and reports right ear pain and itching. Denies fevers Physical Exam General: Cooperative, healthy appearing, comfortable and no acute distress Orientation/consciousness: Patient oriented x3 Limitations: No limitations Head: Normal to inspection Ears: Hearing grossly normal bilaterally, external ears normal, right TM with purulent effusion Nose: Normal external nose present, Normal nares present and No nasal discharge present Face and sinus: Swollen face, tender sinuses Mouth: Normal oral and palatal mucosa present and moist mucous membranes Throat: Yes tonsils normal, Yes uvula midline. Posterior oropharynx erythema, no exudates Eyes: Appearance normal, both eyes and all related structures Neck: Normal visual inspection, full ROM Respiratory: Normal respiratory effort, able to speak in complete sentences, no respiratory distress, not tachypneic, no tripod positioning and no use of accessory muscles Skin: No rashes or lesions noted Neuro: Patient oriented x3 Extremities: Normal to inspection and Yes no clubbing, cyanosis or edema PFSH Medical History Moderate recurrent major depression Left sided abdominal pain Generalized pruritus Smoking 1/2 pack a day or less Asthma-COPD overlap syndrome Acute maxillary sinusitis Otitis externa Hospital discharge follow-up Microscopic hematuria Physical exam Goiter Blurry vision Tobacco dependence Has daytime drowsiness Pulmonary nodules Dyspnea Hand pain Skin lesion Leg pain, bilateral Dyslipidemia Epigastric pain Essential hypertension Cervical cancer screening GERD (gastroesophageal reflux disease) HTN (hypertension) Migraine Anxiety Depression Right lower quadrant pain Fibromyalgia Surgical History Previous section History of breast lump/mass excision History of lithotripsy H/O LEEP H/O tubal ligation Family History Father Myocardial infarction Mother Lung cancer Brother Liver cancer Maternal Grandfather Stomach cancer Maternal Grandmother No problems noted. Social History Housing: Apartment Alcohol intake: never Patient Tobacco Use Status: Current someday Tobacco user Tobacco use type: Cigarette Cigarette Packs Per Day: 0.25 Cigarettes Per Day: 3 e-Cigarette/Vaping Use: Never Used Second Hand Smoke Exposure: Yes service: No Current occupational status: disabled Gender identity: Female Cognitive needs: No Hearing needs: No Vision needs: No Female Reproductive History Menstrual Age of Menarche: 9 Review of Systems Const All systems reviewed & are unremarkable except as noted in HPI and below Physical Exam Vital Signs: Last Vital Signs Temp 98.1 F 12/23/24 14:58 Pulse 67 12/23/24 14:58 BP 120/68 12/23/24 14:58 Pulse Ox 96 12/23/24 14:58 Oxygen Delivery Method Room Air 12/23/24 14:58 BMI result Body Mass Index 31.3 Assessment & Plan Assessment & Plan (1) Otitis media, right: Code(s): H66.91 - Otitis media, unspecified, right ear Qualifiers: Otitis media type: suppurative Chronicity: acute Recurrence: non- recurrent Spontaneous tympanic membrane rupture: without spontaneous rupture Qualified Code(s): H66.001 - Acute suppurative otitis media without spontaneous rupture of ear drum, right ear Plan: Plan - Prescribe prednisone for five days to reduce facial swelling. - Prescribe amoxicillin for seven days to treat right ear infection, advising to take with food to minimize gastrointestinal upset. - Advise the patient to continue using the inhaler and breathing exercises for asthma management. - Instruct the patient to monitor for any signs of severe allergic reactions and use the EpiPen if necessary. Patient was informed and verbally consented to the use of an ambient scribe for clinic note documentation during this visit (2) Sinusitis, acute: Code(s): J01.90 - Acute sinusitis, unspecified Qualifiers: Sinusitis location: maxillary Recurrence: non-recurrent Qualified Code(s): J01.00 - Acute maxillary sinusitis, unspecified Plan: see above Medications: New prednisone 50 mg PO QAM 5 tabs 0RF amoxicillin-pot clavulanate 875-125 mg 1 tab PO Q12H 14 tabs 0RF Coding Level of Care Code Est Pt Level 3 (54736) Diagnoses Non-recurrent acute suppurative otitis media of right ear without spontaneous rupture of tympanic membrane H66.001 Otitis media type: suppurative Chronicity: acute Recurrence: non-recurrent Spontaneous tympanic membrane rupture: without spontaneous rupture Acute non-recurrent maxillary sinusitis J01.00 Sinusitis location: maxillary Recurrence: non-recurrent
[2024-12-23 14:58] VITALS: BP 120/68; PULSE 67; TEMP 36.7; O2SAT 96; BMI 31.3
== END 2024-12-23 15:45 | disposition home or self-care (01) ==
PROVIDERS: PCP Internal Medicine; Visit Provider Physician Assistant
DX: H66.001 Acute suppurative otitis media without spontaneous rupture of ear drum, right ear (principal); J01.00 Acute maxillary sinusitis, unspecified

== ENCOUNTER → 2024-12-23 14:47 | Outpatient (BNVA) | payer OTHER, SELFPAY | PROVIDERS: PCP Internal Medicine; Visit Provider Physician Assistant | DX: H66.001 Acute suppurative otitis media without spontaneous rupture of ear drum, right ear (principal); J01.00 Acute maxillary sinusitis, unspecified | CPT/HCPCS: 99212 ==

== ENCOUNTER 2024-12-27 20:55 | Emergency (ER) | payer OTHER, SELFPAY ==
--- NOTE | ~2024-12-27 | XR_ITS ---
CLINICAL HISTORY: cp 1 view chest x-ray Comparison: CR - XR CHEST 1V - 11/23/24 16:31 EDT Findings: Calcified pulmonary granuloma noted in the periphery of the right upper lung No consolidation or infiltrate Normal size heart. No acute fracture. IMPRESSION: 1. No acute findings. This document has been electronically signed by: Nicolas Koenig MD, PHD on 12/27/2024 23:04:27
--- NOTE | 2024-12-27 21:06 | ECG_ITS ---
Test Reason : CP Blood Pressure : */* mmHG Vent. Rate : 107 BPM Atrial Rate : 107 BPM P-R Int : 134 ms QRS Dur : 68 ms QT Int : 326 ms P-R-T Axes : 42 16 20 degrees QTcB Int : 435 ms Sinus tachycardia Possible Left atrial enlargement Borderline ECG When compared with ECG of 22-Dec-2024 18:44, No significant change was found Referred By: Generic ED Physician Electronically Signed By: Harry Suárez
[2024-12-27 21:14] VITALS: BP 111/76; PULSE 107; RESP 16; TEMP 36.8; O2SAT 98; BMI 27.6
[2024-12-27 21:48] LABS: MANUAL DIFF FLAG NO
[2024-12-27 21:50] LABS: Hematocrit 37.4 % (37.0-47.0); Hemoglobin 12.7 g/dl (12.0-16.0); Imm Gran Abs Auto 0.06 X10*3/uL (0.00-0.03); Imm Gran Pct Auto 0.5 % (0.0-0.4); Lymphocytes Absolute Auto 1.6 X10*3/uL (1.2-4.9); Mean Corpuscular HGB Conc 34.0 g/dl (31.0-35.0); Mean Corpuscular Hemoglobin 27.0 pg (27.0-33.0); Mean Corpuscular Volume 79.4 fL (80.0-98.0); NRBC Abs Auto 0.000 X10*3/uL (0.0-0.012); NRBC Pct Auto 0.0 /100WBC (0.0-0.2); Platelet Count 306 X10*3/uL (160-400); Red Blood Count 4.71 X10*6/uL (4.20-5.50); White Blood Count 11.6 X10*3/uL (4.8-10.8)
[2024-12-27 22:00] VITALS: BP 121/72; PULSE 86; RESP 16; TEMP 36.4; O2SAT 98
[2024-12-27 22:06] LABS: Alanine Aminotransferase 25 U/L (0-31); Albumin Level 4.5 g/dL (3.5-5.0); Alkaline Phosphatase 126 U/L (39-117); Anion Gap 15 (12-20); Aspartate Amino Transferase 22 U/L (5-31); Blood Urea Nitrogen 21 mg/dL (9-16); Calcium 9.5 mg/dL (8.4-10.2); Carbon Dioxide 22 mmol/L (22-29); Chloride 105 mmol/L (96-108); Creatinine Clr Calc Pharmacy 48.8; Estimated Glomerular Filt Rate 50; Potassium 4.0 mmol/L (3.3-5.1); Sodium 138 mmol/L (135-145); Total Protein 7.6 g/dL (6.5-8.0)
[2024-12-27 22:15] LABS: Troponin-I High Sensitivity < 2.7 ng/L (<3.5-17.0)
[2024-12-27 22:25] LABS: Resp Syncy Virus RNA Qual PCR NEGATIVE (Negative); SARS COV2 PCR INHOUSE NEGATIVE (Negative)
--- NOTE | 2024-12-27 23:04 | ED.GENADULT ---
HPI - General Adult General Chief complaint: General Medical Stated complaint: chest pain/headache Time Seen by Provider: 12/27/24 22:21 Source: patient Limitations: language barrier History of Present Illness ED Provider: Ana Epperson PA-C HPI narrative: 54-year-old female with a history of hypertension, hyperlipidemia, anxiety with panic attack, depression, seasonal allergies, anemia, asthma/COPD overlap, migraine, obesity, polyarthralgia, who presents with numerous complaints. Patient states she has been having sinus pain and pressure and right-sided ear pain for 1 week. She was seen at her clinic, she was found to have an ear infection, she was placed on antibiotics and given pain medication. Patient states she is not treating the antibiotic that it upsets her stomach. She complains of ongoing nasal congestion. Patient also complains of intermittent chest discomfort of unclear duration. The pain is central, unable to describe the nature of her pain, she is currently symptom free. Pain worse with palpation of chest wall. Denies fever. Denies shortness of breath. Related Data Previous Rx's ?Medication ?Instructions ?Recorded cane #1 ea 09/06/22 acetaminophen 500 mg tablet 1,000 mg (2 x 500 mg) PO TID PRN 10/07/22 pain #20 tabs underpads (Bed Underpads) #100 ea 03/28/23 walker #1 ea 03/28/23 lidocaine 5 % topical patch 1 patch topical DAILY #30 ea 01/05/24 (Lidoderm) naloxone 10 mg/0.4 mL 2 mg (0.08 mL) subcut Q3M 30 days 01/09/24 injection,auto-injector #4 mL nebulizers (AeroEclipse II #1 ea 04/03/24 Nebulizer) riboflavin (vitamin B2) 400 mg 400 mg PO DAILY 30 days #30 tabs 04/16/24 tablet montelukast 10 mg tablet 10 mg PO BEDTIME 30 days #30 tabs 04/22/24 (Singulair) varenicline tartrate 0.5 mg (11)-1 See Rx Instructions PO PER PKG DIR 04/22/24 mg (42) tablets in a dose pack #42 ea (Chantix Starting Month Box) cholecalciferol (vitamin D3) 50 50 mcg PO DAILY 90 days #90 tabs 04/24/24 mcg (2,000 unit) tablet olopatadine 0.7 % eye drops 1 drp ophthalmic (eye) Q24H PRN 08/11/24 (Pataday Once Daily Relief) itching #5 mL fluticasone propionate 50 1 spray intranasal BID PRN nasal 09/21/24 mcg/actuation nasal congestion #16 grams spray,suspension (Flonase Allergy Relief) albuterol sulfate 90 mcg/actuation 2 puff inhalation Q4-6H PRN 10/03/24 aerosol inhaler shortness of breath or wheezing #6.7 grams diphenhydramine HCl 25 mg capsule 50 mg (2 x 25 mg) PO Q6H PRN 10/06/24 allergic reaction #20 caps epinephrine 0.3 mg/0.3 mL 0.3 mg (0.3 mL) IM Q10M PRN 10/06/24 injection, auto-injector (EpiPen anaphylaxis #2 ea 2-Pantera) menthol 0.1 % lotion (Eucerin Itch 1 ea topical BID 14 days #250 mL 10/06/24 Relief) fexofenadine 180 mg tablet 180 mg PO DAILY #90 tabs 10/09/24 (Gemini Allergy) hydrocortisone 2.5 % topical 1 appl topical BID-TID PRN itching 10/09/24 ointment #454 grams clonazepam 0.5 mg tablet 0.5 mg PO BID PRN anxiety 30 days 10/16/24 #60 tabs zolpidem 5 mg tablet (Ambien) 5 mg PO BEDTIME #30 tabs 10/16/24 rimegepant 75 mg disintegrating 75 mg PO ONCE PRN migraine 10/24/24 tablet (Nurtec ODT) headache 30 days #15 tabs magnesium oxide 400 mg (241.3 mg 400 mg PO BEDTIME 30 days #30 tabs 10/28/24 magnesium) tablet fenofibrate 54 mg tablet 54 mg PO DAILY 90 days #90 tabs 11/06/24 potassium chloride 20 mEq oral 20 meq PO DAILY 2 days #2 ea 11/11/24 packet blood pressure monitor (Blood #1 ea 11/21/24 Pressure Kit) lidocaine HCl 2 % mucosal solution 1 appl topical QID PRN head pain 11/26/24 (Lidocaine Viscous) 30 days #100 mL hydroxyzine HCl 50 mg tablet 50 mg PO Q8H PRN nausea and 12/03/24 vomiting #90 tabs meclizine 25 mg tablet 25 mg PO TID #20 tabs 12/03/24 tramadol 50 mg tablet 50 mg PO BID PRN severe pain 12/03/24 (scale score 7-10) 30 days #60 tabs galcanezumab-gnlm 120 mg/mL 120 mg subcut Q30D 30 days #1 mL 12/05/24 subcutaneous pen injector (Emgality Pen) paroxetine HCl 10 mg tablet 10 mg PO DAILY #30 tabs 12/18/24 amoxicillin 875 mg-potassium 1 tab PO Q12H #14 tabs 12/23/24 clavulanate 125 mg tablet hydrochlorothiazide 12.5 mg tablet 12.5 mg PO DAILY 90 days #90 tabs 12/23/24 prednisone 50 mg tablet 50 mg PO QAM #5 tabs 12/23/24 azithromycin 250 mg tablet 250 mg PO DAILY 4 days #4 tabs 12/27/24 fluticasone propionate 50 2 spray intranasal DAILY PRN nasal 12/27/24 mcg/actuation nasal congestion #16 grams spray,suspension (Flonase Allergy Relief) Allergies Allergy/AdvReac Type Severity Reaction Status Date / Time amitriptyline Allergy Intermediate headache Verified 12/27/24 21:14 ibuprofen (From Motrin) Allergy Intermediate ITCHY RASH Verified 12/27/24 21:14 shrimp Allergy Mild Unknown Verified 12/27/24 21:14 seafood Allergy Unknown Verified 12/27/24 21:14 gabapentin AdvReac Intermediate vomiting Verified 12/27/24 21:14 Review of Systems Review of Systems: Yes all other systems are reviewed and are negative Constitutional: Constitutional: Denies fever(s) ENT: Reports otalgia, Reports facial pain, Reports nasal congestion, Reports sinus pain and Reports sinus pressure Cardiovascular: Cardiovascular: Reports chest pain and Denies dyspnea Respiratory: Respiratory: Denies chest congestion, Reports cough, Denies dyspnea and Denies wheezing Gastrointestinal: Gastrointestinal: Denies abdominal pain, Denies nausea and Denies vomiting Allergic/Immunologic: Allergic/Immunologic: Denies wheezing PMFSH Past Medical History Attestation statement: The following information was validated with the patient. Medical History Moderate recurrent major depression Left sided abdominal pain Generalized pruritus Smoking 1/2 pack a day or less Asthma-COPD overlap syndrome Acute maxillary sinusitis Otitis externa Hospital discharge follow-up Microscopic hematuria Physical exam Goiter Blurry vision Tobacco dependence Has daytime drowsiness Pulmonary nodules Dyspnea Hand pain Skin lesion Leg pain, bilateral Dyslipidemia Epigastric pain Essential hypertension Cervical cancer screening GERD (gastroesophageal reflux disease) HTN (hypertension) Migraine Anxiety Depression Right lower quadrant pain Fibromyalgia Surgical History Previous section History of breast lump/mass excision History of lithotripsy H/O LEEP H/O tubal ligation Family History Family History Father Myocardial infarction Mother Lung cancer Brother Liver cancer Maternal Grandfather Stomach cancer Maternal Grandmother No problems noted. Social History Social History Housing: Apartment Alcohol intake: never Patient Tobacco Use Status: Current someday Tobacco user Tobacco use type: Cigarette Cigarette Packs Per Day: 0.25 Cigarettes Per Day: 3 e-Cigarette/Vaping Use: Never Used Second Hand Smoke Exposure: Yes Advance Directives: No Advance Directives Information Provided: No service: No Current occupational status: disabled Gender identity: Female Cognitive needs: No Hearing needs: No Vision needs: No Physical Exam ED Vital Signs: Vital Signs - 24 hr 12/27/24 21:14 12/27/24 22:00 Temperature 98.2 F 97.6 F Pulse Rate 107 H 86 Respiratory Rate 16 16 Blood Pressure 111/76 121/72 Pulse Oximetry 98 98 Oxygen Delivery Method Room Air Room Air BMI result Body Mass Index 27.6 Const Other: Alert well-appearing Orientation/consciousness: patient oriented x3 HENMT Other: Right tragal tenderness noted, the right TM is opaque, with fluid, overlying erythema, external ear canal is normal Resp Effort & Inspection: normal respiratory effort Cardio Other: Normal peripheral perfusion Skin Other: Warm dry no rash Neuro General: patient oriented x3, gait normal, no focal motor deficits and CN's II-XI intact bilaterally Psych Other: Cooperative Medical Decision Making Medical Decision Making MDM Narrative: 54-year-old female with a history of hypertension, hyperlipidemia, anxiety with panic attack, depression, seasonal allergies, anemia, asthma/COPD overlap, migraine, obesity, polyarthralgia, who presents with numerous complaints. Patient states she has been having sinus pain and pressure and right-sided ear pain for 1 week. She was seen at her clinic, she was found to have an ear infection, she was placed on antibiotics and given pain medication. Patient states she is not treating the antibiotic that it upsets her stomach. She complains of ongoing nasal congestion. Patient also complains of intermittent chest discomfort of unclear duration. The pain is central, unable to describe the nature of her pain, she is currently symptom free. Pain worse with palpation of chest wall. Denies fever. Denies shortness of breath. Problem: Anxiety, asthma, seasonal allergies History: Per patient I have considered the following differential diagnoses: Sinusitis, om, OE, ACS, costochondritis, pneumonia Plan: Patient here with numerous complaints. She has a underlying otitis media, we will change the antibiotic to a Z-Pantera. In regard to her chest discomfort it seems most consistent with costochondritis, in the setting that she likely has underlying viral syndrome. Chest x-ray is clear from pneumonia. ACS was considered, the patient does have risk factors for coronary artery disease, in addition to screening labs, cardiac enzyme and EKG were obtained. Viral panel obtained. In regard to her ongoing nasal congestion, I explained to the patient that bacterial sinusitis is not even considered unless she has had symptoms for 2 weeks. We will send her with Flonase. I have independently reviewed the following tests: Labs: Slight leukocytosis, not anemic, no electrolyte abnormality, troponin negative, viral panel negative EKG: Sinus tachycardia, rate of 107, no ischemic changes no ectopy QTC 435 Chest x-ray:Findings: Calcified pulmonary granuloma noted in the periphery of the right upper lung No consolidation or infiltrate Normal size heart. No acute fracture. IMPRESSION: 1. No acute findings. Lab Data 12/27/24 21:44 12/27/24 21:44 Labs: Lab Results 12/27/24 Range/Units 21:44 WBC 11.6 H (4.8-10.8) X10*3/uL RBC 4.71 (4.20-5.50) X10*6/uL Hgb 12.7 (12.0-16.0) g/dl Hct 37.4 (37.0-47.0) % MCV 79.4 L (80.0-98.0) fL MCH 27.0 (27.0-33.0) pg MCHC 34.0 (31.0-35.0) g/dl RDW 15.1 (11.0-16.0) % Plt Count 306 (160-400) X10*3/uL MPV 9.6 (9.4-12.3) fL Immature Gran % (Auto) 0.5 H (0.0-0.4) % Neut % (Auto) 83.0 H (45-73) % Lymph % (Auto) 14.1 L (20-40) % [place] % (Auto) 1.8 L (2-11) % Eos % (Auto) 0.2 (0-4) % Baso % (Auto) 0.4 (0-2) % Lymph # (Auto) 1.6 (1.2-4.9) X10*3/uL [place] # (Auto) 0.2 (0.1-1.2) X10*3/uL Eos # (Auto) 0.0 (0.0-0.4) X10*3/uL Baso # (Auto) 0.1 (0.0-0.2) X10*3/uL Abs Immat Gran (auto) 0.06 H (0.00-0.03) X10*3/uL Absolute Neuts (auto) 9.6 H (2.0-8.3) x10*3/uL Absolute Nucleated RBC 0.000 (0.0-0.012) X10*3/uL Nucleated RBC % (auto) 0.0 (0.0-0.2) /100WBC Sodium 138 (135-145) mmol/L Potassium 4.0 (3.3-5.1) mmol/L Chloride 105 (96-108) mmol/L Carbon Dioxide 22 (22-29) mmol/L Anion Gap 15 (12-20) BUN 21 H (9-16) mg/dL Creatinine 1.12 (0.5-1.4) mg/dL Estim Creat Clear Calc 48.8 Estimated GFR 50 Random Glucose 150 H (60-115) mg/dL Calcium 9.5 D (8.4-10.2) mg/dL Total Bilirubin 0.3 (0.0-1.0) mg/dL AST 22 (5-31) U/L ALT 25 (0-31) U/L Alkaline Phosphatase 126 H (39-117) U/L Troponin I High Sens < 2.7 (<3.5-17.0) ng/L Total Protein 7.6 (6.5-8.0) g/dL Albumin 4.5 (3.5-5.0) g/dL Influenza Type A (PCR) NEGATIVE (Negative) Influenza Type B (PCR) NEGATIVE (Negative) RSV RNA Qual (PCR) NEGATIVE (Negative) SARS-CoV-2 RNA (RT-PCR) NEGATIVE (Negative) Discharge Plan Discharge Clinical Impression: Acute viral syndrome, Chest pain, Acute otitis media, right, Congestion of nasal sinus Patient Disposition: Home, Self-Care Instructions: Ear Infection (ED), Viral Syndrome (ED), Cold Symptoms (ED), Noncardiac Chest Pain (ED), Chest Wall Pain (ED) Additional Instructions: In regard to your chest pain, this is likely viral related, there were no concerning changes on the EKG in your cardiac enzyme is negative. The chest x-ray is also clear. You are being treated for your inner ear infection, we are change in the antibiotic to a Z-Pantera. Take it as directed. For your nasal congestion, use the Flonase. Follow up with primary care as needed. Prescriptions: New azithromycin 250 mg tablet 250 mg PO DAILY 4 Days Qty: 4 0RF Rx Instructions: start on day 2 of therapy fluticasone propionate [Flonase Allergy Relief] 50 mcg/actuation spray,suspension 2 spray intranasal DAILY PRN (Reason: nasal congestion) Qty: 16 0RF Rx Instructions: administer into each nostril No Action (DME) cane Device See Rx Instructions .Route Qty: 1 0RF Rx Instructions: As directed (DME) walker Misc See Rx Instructions .Route Qty: 1 0RF Rx Instructions: To be use lifetime (DME) underpads [Bed Underpads] Pad See Rx Instructions .Route Qty: 100 0RF Rx Instructions: As directed naloxone 10 mg/0.4 mL auto-injector 2 mg subcut Q3M 30 Days Qty: 4 0RF Rx Instructions: until desired response riboflavin (vitamin B2) 400 mg tablet 400 mg PO DAILY 30 Days Qty: 30 6RF cholecalciferol (vitamin D3) 50 mcg (2,000 unit) tablet 50 mcg PO DAILY 90 Days Qty: 90 1RF Nurtec ODT 75 mg tablet,disintegrating 75 mg PO ONCE MDD 1 tab PRN (Reason: migraine headache) 30 Days Qty: 15 6RF Rx Instructions: Prior authorization approved through 04/22/2025 fenofibrate 54 mg tablet 54 mg PO DAILY 90 Days Qty: 90 1RF potassium chloride 20 mEq packet 20 meq PO DAILY 2 Days Qty: 2 0RF (DME) blood pressure monitor [Blood Pressure Kit] Kit See Rx Instructions .ROUTE .MEDSUPPLY Qty: 1 0RF Rx Instructions: As directed hydroxyzine HCl 50 mg tablet 50 mg PO Q8H PRN (Reason: nausea and vomiting) Qty: 90 1RF tramadol 50 mg tablet 50 mg PO BID PRN (Reason: severe pain (scale score 7-10)) 30 Days Qty: 60 0RF Emgality Pen 120 mg/mL pen injector 120 mg subcut Q30D 30 Days Qty: 1 6RF Rx Instructions: Maintenance dose of 120 mg subcu q.month. [place] APPROVED 12/04/24-06/05/25 hydrochlorothiazide 12.5 mg tablet 12.5 mg PO DAILY 90 Days Qty: 90 3RF acetaminophen 500 mg tablet 1,000 mg PO TID PRN (Reason: pain) Qty: 20 0RF lidocaine [Lidoderm] 5 % adhesive patch,medicated 1 patch topical DAILY Qty: 30 0RF Rx Instructions: leave on most painful area for up to 12 hrs fluticasone propionate [Flonase Allergy Relief] 50 mcg/actuation spray,suspension 1 spray intranasal BID PRN (Reason: nasal congestion) Qty: 16 0RF Rx Instructions: administer into each nostril albuterol sulfate 90 mcg/actuation HFA aerosol inhaler 2 puff inhalation Q4-6H PRN (Reason: shortness of breath or wheezing) Qty: 6.7 0RF meclizine 25 mg tablet 25 mg PO TID Qty: 20 0RF lidocaine HCl [Lidocaine Viscous] 2 % solution 1 appl topical QID PRN (Reason: head pain) 30 Days Qty: 100 1RF diphenhydramine HCl 25 mg capsule 50 mg PO Q6H PRN (Reason: allergic reaction) Qty: 20 0RF epinephrine [EpiPen 2-Pantera] 0.3 mg/0.3 mL auto-injector 0.3 mg IM Q10M PRN (Reason: anaphylaxis) Qty: 2 0RF Rx Instructions: for 3 doses Eucerin Itch Relief 0.1 % lotion 1 ea topical BID 14 Days Qty: 250 0RF hydrocortisone 2.5 % ointment 1 appl topical BID-TID PRN (Reason: itching) Qty: 454 1RF fexofenadine [Gemini Allergy] 180 mg tablet 180 mg PO DAILY Qty: 90 1RF magnesium oxide 400 mg (241.3 mg magnesium) tablet 400 mg PO BEDTIME 30 Days Qty: 30 6RF Rx Instructions: may hold for loose stools montelukast [Singulair] 10 mg tablet 10 mg PO BEDTIME 30 Days Qty: 30 11RF varenicline tartrate [Chantix Starting Month Box] 0.5 mg (11)- 1 mg (42) tablets,dose pack See Rx Instructions PO PER PKG DIR Qty: 42 0RF Rx Instructions: PO PER PKG DIR (DME) nebulizers [AeroEclipse II Nebulizer] Misc See Rx Instructions .Route Qty: 1 0RF Rx Instructions: As directed Pataday Once Daily Relief 0.7 % drops 1 drp ophthalmic (eye) Q24H PRN (Reason: itching) Qty: 5 0RF clonazepam 0.5 mg tablet 0.5 mg PO BID PRN (Reason: anxiety) 30 Days Qty: 60 1RF zolpidem [Ambien] 5 mg tablet 5 mg PO BEDTIME Qty: 30 1RF paroxetine HCl 10 mg tablet 10 mg PO DAILY Qty: 30 2RF prednisone 50 mg tablet 50 mg PO QAM Qty: 5 0RF amoxicillin-pot clavulanate 875-125 mg tablet 1 tab PO Q12H Qty: 14 0RF Print Language: Upper Sorbian
[2024-12-27 23:27] VITALS: BP 121/72; PULSE 86; RESP 16; TEMP 36.4; O2SAT 98
== END 2024-12-27 23:27 | disposition home or self-care (01) ==
PROVIDERS: Emergency Provider Emergency Medicine; PCP Internal Medicine
DX: R09.81 Nasal congestion (principal); H66.91 Otitis media, unspecified, right ear; B34.9 Viral infection, unspecified; R07.9 Chest pain, unspecified; I10 Essential (primary) hypertension; E78.5 Hyperlipidemia, unspecified; H92.01 Otalgia, right ear
CPT/HCPCS: 36415; 71045; 80053; 84484; 85025; 87637; 93005; 99283; 99284

== ENCOUNTER → 2024-12-27 21:06 | Outpatient (BNV) | payer OTHER, SELFPAY | PROVIDERS: Emergency Provider Emergency Medicine; PCP Internal Medicine; Visit Provider Internal Medicine Cardiovascular Disease | DX: R00.0 Tachycardia, unspecified (principal) | CPT/HCPCS: 93010 ==

== ENCOUNTER → 2024-12-27 21:48 | Outpatient (BNV) | payer OTHER, SELFPAY | PROVIDERS: Emergency Provider Emergency Medicine; PCP Internal Medicine; Visit Provider General Practice | DX: R07.9 Chest pain, unspecified (principal) | CPT/HCPCS: 71045 ==

== ENCOUNTER 2025-01-06 14:11 | Outpatient (REF) | payer OTHER, SELFPAY ==
[2025-01-06 15:08] LABS: MANUAL DIFF FLAG NO
[2025-01-06 15:30] LABS: Hematocrit 38.2 % (37.0-47.0); Hemoglobin 12.1 g/dl (12.0-16.0); Imm Gran Abs Auto 0.07 X10*3/uL (0.00-0.03); Imm Gran Pct Auto 0.6 % (0.0-0.4); Lymphocytes Absolute Auto 2.4 X10*3/uL (1.2-4.9); Mean Corpuscular HGB Conc 31.7 g/dl (31.0-35.0); Mean Corpuscular Hemoglobin 26.0 pg (27.0-33.0); Mean Corpuscular Volume 82.0 fL (80.0-98.0); NRBC Abs Auto 0.000 X10*3/uL (0.0-0.012); NRBC Pct Auto 0.0 /100WBC (0.0-0.2); Platelet Count 303 X10*3/uL (160-400); Red Blood Count 4.66 X10*6/uL (4.20-5.50); White Blood Count 12.1 X10*3/uL (4.8-10.8)
[2025-01-06 15:54] LABS: Alanine Aminotransferase 31 U/L (0-31); Anion Gap 12 (12-20); Aspartate Amino Transferase 19 U/L (5-31); Blood Urea Nitrogen 14 mg/dL (9-16); Calcium 9.3 mg/dL (8.4-10.2); Carbon Dioxide 27 mmol/L (22-29); Chloride 109 mmol/L (96-108); Estimated Glomerular Filt Rate > 60; Iron 61 mcg/dL (30-160); Magnesium 1.9 mg/dL (1.6-2.6); Percent Iron Saturation 24 % (15-50); Potassium 3.9 mmol/L (3.3-5.1); Sodium 144 mmol/L (135-145); Total Iron Binding Capacity 259 mcg/dL (228-428); Unsaturated Iron Binding 198 ug/dL
[2025-01-06 15:55] LABS: Albumin Level 4.4 g/dL (3.5-5.0); Alkaline Phosphatase 117 U/L (39-117); Cholesterol 235 mg/dL (<200); HDL Cholesterol 47 mg/dL (>40); Total Protein 7.1 g/dL (6.5-8.0); Triglycerides 411 mg/dL (<150)
[2025-01-06 16:22] LABS: Folate 5.8 ng/mL (> or = 4.0); Vitamin B12 311 pg/mL (200-900)
== END 2025-01-06 14:12 | disposition home or self-care (01) ==
LOC: HO.LAB 14:11
PROVIDERS: Nurse Practitioner Family; PCP Internal Medicine; Visit Provider Clinical Nurse Specialist Psychiatric/Mental Health
DX: F33.1 Major depressive disorder, recurrent, moderate (principal); F41.1 Generalized anxiety disorder; F41.0 Panic disorder [episodic paroxysmal anxiety]; E78.5 Hyperlipidemia, unspecified; D64.9 Anemia, unspecified; E87.6 Hypokalemia
CPT/HCPCS: 36415; 80053; 80061; 82306; 82607; 82746; 83540; 83735; 84443; 85025; 99212

== ENCOUNTER 2025-01-06 14:11 | Outpatient (AMB) | payer OTHER, SELFPAY ==
--- NOTE | 2025-01-06 14:06 | A.OFFPSYCH_ITS ---
Intake Intake Visit Reasons: f/u consultation Digital Marketing Apprentice Required: Yes Provided:: Language: (Paraguayan) Language Interpreted:: [place]ayan and Digital Marketing Apprentice Type:: Employee Allergies amitriptyline Allergy (Intermediate, Verified 02/08/25 19:59) headache ibuprofen (From Motrin) Allergy (Intermediate, Verified 02/08/25 19:59) ITCHY RASH shrimp Allergy (Mild, Verified 02/08/25 19:59) Unknown seafood Allergy (Verified 02/08/25 19:59) Unknown gabapentin Adverse Reaction (Intermediate, Verified 02/08/25 19:59) vomiting Medication List - Last Reconciled 01/06/25 by Vangie Blanchard, ALTERNATIVE EDUCATION TEACHER acetaminophen 1,000 mg (2 x 500 mg) PO TID PRN albuterol sulfate 90 mcg/actuation 2 puffs inhalation Q4-6H PRN amoxicillin-pot clavulanate 875-125 mg 1 tab PO Q12H azithromycin 250 mg PO DAILY 4 days blood pressure monitor (Blood Pressure Kit) As directed cane As directed cholecalciferol (vitamin D3) 50 mcg PO DAILY 90 days clonazepam 0.5 mg PO BID PRN 30 days diphenhydramine HCl 50 mg (2 x 25 mg) PO Q6H PRN epinephrine (EpiPen 2-Pantera) 0.3 mg (0.3 mL) IM Q10M PRN fenofibrate 54 mg PO DAILY 90 days fexofenadine (Gemini Allergy) 180 mg PO DAILY fluticasone propionate 50 mcg/actuation (Flonase Allergy Relief) 1 spray intranasal BID PRN fluticasone propionate 50 mcg/actuation (Flonase Allergy Relief) 2 sprays intranasal DAILY PRN galcanezumab-gnlm (Emgality Pen) 120 mg subcut Q30D 30 days hydrochlorothiazide 12.5 mg PO DAILY 90 days hydrocortisone 2.5% 1 appl topical BID-TID PRN hydroxyzine HCl 50 mg PO Q8H PRN lidocaine 5% (Lidoderm) 1 patch topical DAILY lidocaine HCl 2% (Lidocaine Viscous) 1 appl topical QID PRN 30 days magnesium oxide 400 mg PO BEDTIME 30 days meclizine 25 mg PO TID menthol 0.1% (Eucerin Itch Relief) 1 ea topical BID 14 days montelukast (Singulair) 10 mg PO BEDTIME 30 days naloxone 2 mg (0.08 mL) subcut Q3M 30 days nebulizers (AeroEclipse II Nebulizer) As directed olopatadine 0.7% (Pataday Once Daily Relief) 1 drp ophthalmic (eye) Q24H PRN paroxetine HCl 10 mg PO DAILY potassium chloride 20 mEq PO DAILY 2 days prednisone 50 mg PO QAM riboflavin (vitamin B2) 400 mg PO DAILY 30 days rimegepant (Nurtec ODT) 75 mg PO ONCE PRN 30 days MDD 1 tab tramadol 50 mg PO BID PRN 30 days underpads (Bed Underpads) As directed varenicline tartrate (Chantix Starting Month Box) PO PER PKG DIR walker To be use lifetime zolpidem (Ambien) 5 mg PO BEDTIME HPI- Psychiatric Chief Complaint: f/u consultation HPI Narrative: Pt is here for follow up fro depression and anxiety. she reports improvement; tolerating the paroxteine and clonazepam.she takes the clonazepam prn but only after panic symptoms start. she says the ambien did not help at all; she continues to go to the ED for panic attacks. she is having a work up for lung nodules and questionable mammogram results. she says she did not follow directions for the CT scan so the y had to cancel it and she has not followed up, she says she continues to have panic symptoms; she has quit smoking but says she feels miserable without the cigarettes; she is wating for a therapist. PHQ9=8 and GAD7=8 Past Psychiatric History: many years of depression and anxiety used to go to [facility] for psychiatry and therapy Subjective Subjective Subjective Medication Compliance: No Mental Status Exam Mental Status Exam Patient Appearance: Well Grooomed Patient Orientation: Person, Place, Time and Situation Level of Consciousness: Awake Patient Behavior: Appropriate Mood Description: Anxious Affect Description: Anxious Patient Cognition Impaired: No Ability to Follow Directions: Fair Speech Pattern: Clear Memory Description: Intact Hallucinations: None Delusions: Not Present Thought Process: Intact and Distracted Thought Content: positive for Intact and positive for Loose Associations Judgement: Fair Assessment and Plan Assessment & Plan (1) Moderate recurrent major depression: Status: Acute Code(s): F33.1 - Major depressive disorder, recurrent, moderate (2) Generalized anxiety disorder: Status: Acute Code(s): F41.1 - Generalized anxiety disorder (3) Panic disorder: Status: Acute Code(s): F41.0 - Panic disorder [episodic paroxysmal anxiety] Plan trial of paroxetine 10 mg daily clonazepam 0.5 mg BID Orders: Orders Magnesium 01/06/25 F33.1 - Major depressive disorder, recurrent, moderate TSH reflex Free T4 01/06/25 F41.1 - Generalized anxiety disorder, F33.1 - Major depressive disorder, recurrent, moderate Vitamin B12 and Folate 01/06/25 F33.1 - Major depressive disorder, recurrent, moderate Comprehensive Met. Panel 01/06/25 F41.1 - Generalized anxiety disorder, F33.1 - Major depressive disorder, recurrent, moderate Vitamin D 25-OH Total 01/06/25 F41.1 - Generalized anxiety disorder, F33.1 - Major depressive disorder, recurrent, moderate Counseling and coordination of Care Pt. Self Management counseling: Maintenance-social rhythm, Mindfulness, Mod caffeine/ETOH intake, Sleep hygiene and General coping skills Medication management counseling: Effectiveness, Side effects, Dosing range, Duration and Drug interaction Diagnosis and Prognosis Counseling: Accuracy of diagnosis, Prognosis over time, Impact of diagnosis on life functions, Problematic behaviors secondary to diagnosis and Adequacy of current interventions Details: I spent 40 minutes reviewing the record, seeing the patient and documenting in the medical record. Counseling provided to the patient/caregiver as outlined below. Addressed patient/caregiver concerns regarding current medication regime including effective adherence. Addressed patient/caregiver concerns regarding diagnosis and prognosis including accuracy of diagnosis, prognosis over time, impact of diagnosis. Addressed patient/caregiver concerns regarding impact of recent stressors. [facility] Medical History Dysphagia Moderate recurrent major depression Left sided abdominal pain Generalized pruritus Smoking 1/2 pack a day or less Asthma-COPD overlap syndrome Acute maxillary sinusitis Otitis externa Hospital discharge follow-up Microscopic hematuria Physical exam Goiter Blurry vision Tobacco dependence Has daytime drowsiness Pulmonary nodules Dyspnea Hand pain Skin lesion Leg pain, bilateral Dyslipidemia Epigastric pain Essential hypertension Cervical cancer screening GERD (gastroesophageal reflux disease) HTN (hypertension) Migraine Anxiety Depression Right lower quadrant pain Fibromyalgia Surgical History Previous section History of breast lump/mass excision History of lithotripsy H/O LEEP H/O tubal ligation Family History Father Myocardial infarction Mother Lung cancer Brother Liver cancer Maternal Grandfather Stomach cancer Maternal Grandmother No problems noted. Social History Housing: Apartment Alcohol intake: never Patient Tobacco Use Status: Current someday Tobacco user Tobacco use type: Cigarette Cigarette Packs Per Day: 0.25 Cigarettes Per Day: 3 Smoked in Last 30 Days: Yes e-Cigarette/Vaping Use: Never Used Second Hand Smoke Exposure: Yes Use of substances other than those prescribed or required for medical reasons: No Advance Directives: No Advance Directives Information Provided: No Do you have a plan to hurt others: No Plan service: No Current occupational status: disabled Gender identity: Female Cognitive needs: No Hearing needs: No Vision needs: No Social History: lives alone; has BF of 25 yrs but conflicted relationship; has adult children who try to be supportive Substance History: none Trauma History: yes Coding Level of Care Code Est Pt Level 4 (76440) Diagnoses Moderate recurrent major depression F33.1 Generalized anxiety disorder F41.1 Panic disorder F41.0
== END 2025-01-06 15:10 | disposition home or self-care (01) ==
LOC: HO.HOP 14:11
PROVIDERS: PCP Internal Medicine; Visit Provider Clinical Nurse Specialist Psychiatric/Mental Health
DX: F33.1 Major depressive disorder, recurrent, moderate (principal); F41.1 Generalized anxiety disorder; F41.0 Panic disorder [episodic paroxysmal anxiety]
CPT/HCPCS: 99214

== ENCOUNTER 2025-01-08 14:48 | Outpatient (AMB) | payer OTHER, SELFPAY ==
--- NOTE | 2025-01-08 15:29 | MHC.OFFVIS ---
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 Required: Yes Cantilever Crane Operator Name: [id number] Information Interpreted: non-clinical & clinical Allergies amitriptyline Allergy (Intermediate, Verified 01/08/25 15:30) headache ibuprofen (From Motrin) Allergy (Intermediate, Verified 01/08/25 15:30) ITCHY RASH shrimp Allergy (Mild, Verified 01/08/25 15:30) Unknown seafood Allergy (Verified 01/08/25 15:30) Unknown gabapentin Adverse Reaction (Intermediate, Verified 01/08/25 15:30) vomiting Medication List - Last Reconciled 01/08/25 by Daisy Redding MD acetaminophen 1,000 mg (2 x 500 mg) PO TID PRN albuterol sulfate 90 mcg/actuation 2 puffs inhalation Q4-6H PRN azithromycin 250 mg PO DAILY 4 days blood pressure monitor (Blood Pressure Kit) As directed cane As directed cholecalciferol (vitamin D3) 50 mcg PO DAILY 90 days clonazepam 0.5 mg PO BID PRN 30 days diphenhydramine HCl 50 mg (2 x 25 mg) PO Q6H PRN epinephrine (EpiPen 2-Pantera) 0.3 mg (0.3 mL) IM Q10M PRN fenofibrate 54 mg PO DAILY 90 days fexofenadine (Gemini Allergy) 180 mg PO DAILY fluticasone propionate 50 mcg/actuation (Flonase Allergy Relief) 1 spray intranasal BID PRN fluticasone propionate 50 mcg/actuation (Flonase Allergy Relief) 2 sprays intranasal DAILY PRN galcanezumab-gnlm (Emgality Pen) 120 mg subcut Q30D 30 days hydrochlorothiazide 12.5 mg PO DAILY 90 days hydrocortisone 2.5% 1 appl topical BID-TID PRN hydroxyzine HCl 50 mg PO Q8H PRN lidocaine 5% (Lidoderm) 1 patch topical DAILY lidocaine HCl 2% (Lidocaine Viscous) 1 appl topical QID PRN 30 days magnesium oxide 400 mg PO BEDTIME 30 days meclizine 25 mg PO TID menthol 0.1% (Eucerin Itch Relief) 1 ea topical BID 14 days montelukast (Singulair) 10 mg PO BEDTIME 30 days naloxone 2 mg (0.08 mL) subcut Q3M 30 days nebulizers (AeroEclipse II Nebulizer) As directed olopatadine 0.7% (Pataday Once Daily Relief) 1 drp ophthalmic (eye) Q24H PRN paroxetine HCl 10 mg PO DAILY potassium chloride 20 mEq PO DAILY 2 days prednisone 50 mg PO QAM riboflavin (vitamin B2) 400 mg PO DAILY 30 days rimegepant (Nurtec ODT) 75 mg PO ONCE PRN 30 days MDD 1 tab tramadol 50 mg PO BID PRN 30 days underpads (Bed Underpads) As directed varenicline tartrate (Chantix Starting Month Box) PO PER PKG DIR walker To be use lifetime zolpidem (Ambien) 5 mg PO BEDTIME HPI Comments Details: Peace is a 54-year-old female who is here for evaluation for microscopic hematuria. Will send urine for cytology. Pt left without being seen by MD. [facility] Medical History Moderate recurrent major depression Left sided abdominal pain Generalized pruritus Smoking 1/2 pack a day or less Asthma-COPD overlap syndrome Acute maxillary sinusitis Otitis externa Hospital discharge follow-up Microscopic hematuria Physical exam Goiter Blurry vision Tobacco dependence Has daytime drowsiness Pulmonary nodules Dyspnea Hand pain Skin lesion Leg pain, bilateral Dyslipidemia Epigastric pain Essential hypertension Cervical cancer screening GERD (gastroesophageal reflux disease) HTN (hypertension) Migraine Anxiety Depression Right lower quadrant pain Fibromyalgia Surgical History Previous section History of breast lump/mass excision History of lithotripsy H/O LEEP H/O tubal ligation Family History Father Myocardial infarction Mother Lung cancer Brother Liver cancer Maternal Grandfather Stomach cancer Maternal Grandmother No problems noted. Social History Housing: Apartment Alcohol intake: never Patient Tobacco Use Status: Current someday Tobacco user Tobacco use type: Cigarette Cigarette Packs Per Day: 0.25 Cigarettes Per Day: 3 e-Cigarette/Vaping Use: Never Used Second Hand Smoke Exposure: Yes service: No Current occupational status: disabled Gender identity: Female Cognitive needs: No Hearing needs: No Vision needs: No Female Reproductive History Menstrual Age of Menarche: 9 Results AMB Urinalysis, Automated UA Leukoctes 0 Megan/uL Last Edit by Re Meltontiz on 01/08/25 16:36 UA Nitrite Negative Last Edit by Crystal Grubbs on 01/08/25 16:36 UA Urobilinogen 3.5 mg/dL Last Edit by Crystal Grubbs on 01/08/25 16:36 UA Protein 0 mg/dL Last Edit by Crystal Grubbs on 01/08/25 16:36 UA pH 6.0 Last Edit by Crystal Grubbs on 01/08/25 16:36 UA Blood 10 Adrián/uL Last Edit by Crystal Grubbs on 01/08/25 16:36 UA Specific [place] 1.010 Last Edit by Crystal Grubbs on 01/08/25 16:36 UA Ketone Negative Last Edit by Re Grubbs on 01/08/25 16:36 UA Bilirubin 0 mg/dL Last Edit by Crystal Grubbs on 01/08/25 16:36 UA Glucose 0 mg/dL Last Edit by Crystal Grubbs on 01/08/25 16:36 Results Reviewed Results Reviewed: Date of Service: 12/06/24 Procedure(s): CT abdomen pelvis wo IV con Accession Number(s): [id number] cc: Ramya Jones MD; Neyda Foster MD~ Report Number: [id number]: Total DLP = 600.00 mGy-cm CLINICAL HISTORY: flank pain bilateral ? stone CT ABDOMEN AND PELVIS WITHOUT CONTRAST Comparison: None provided Findings: Mild bibasilar atelectasis. No consolidation or pleural effusion. Multiple scattered small calcified pulmonary granulomas. There is mild left hydronephrosis. There is no obstructing calculus. There are no acute abnormalities in the remaining unenhanced solid organs. There is a 3 cm cyst in the right kidney. The gallbladder is contracted. No AAA. No bowel obstruction, pneumoperitoneum, or pneumatosis. No ascites. No significant mesenteric or paracolic edema. Mild colonic diverticulosis. [id number]-ecehq colonic stool burden. The appendix is identified. No acute appendicitis. CT appearances of the uterus and ovaries unremarkable. Mild diffuse urinary bladder wall thickening. The bones are intact. IMPRESSION: 1. Mild left hydronephrosis. No obstructing calculus identified. Recently passed stone versus infection. 2. Mild urinary bladder wall thickening raises the possibility of cystitis in the appropriate clinical setting. 3. No obstructive or acute inflammatory changes in the gastrointestinal tract. Assessment & Plan Assessment & Plan (1) Hematuria: Code(s): R31.9 - Hematuria, unspecified Category: Medical (2) Bladder wall thickening: Code(s): N32.89 - Other specified disorders of bladder Category: Medical (3) Hydronephrosis, left: Code(s): N13.30 - Unspecified hydronephrosis Category: Medical Plan Will send urine for cytology. Recommend further evaluation with renal US and fu office cystoscopy Pt left without being seen by MD. Orders: Orders Urine Cytology Today R31.29 - Other microscopic hematuria, R32 - Unspecified urinary incontinence, R35.0 - Frequency of micturition AMB Urinalysis Automated Today R31.29 - Other microscopic hematuria, R32 - Unspecified urinary incontinence, R39.15 - Urgency of urination Coding Level of Care Code Left Without Being Seen Diagnoses Hematuria R31.9 Bladder wall thickening N32.89 Hydronephrosis, left N13.30
== END 2025-01-08 16:15 | disposition left against medical advice (07) ==
LOC: HO.HUSH 14:49
PROVIDERS: Visit Provider Urology
DX: R32 Unspecified urinary incontinence (principal); R39.15 Urgency of urination; R31.29 Other microscopic hematuria

== ENCOUNTER 2025-01-08 14:48 | Outpatient (REF) | payer OTHER, SELFPAY ==
[2025-01-08 16:22] LABS: Appearance Urine Clear; Glucose Urine UA Negative (Negative); PH 6.5 (5.0-9.0); Specific Gravity - Urine 1.015 (1.005-1.025)
== END 2025-01-08 14:49 | disposition home or self-care (01) ==
LOC: HO.LNP 14:48
PROVIDERS: Physician Assistant Medical; Visit Provider Urology
DX: R10.9 Unspecified abdominal pain (principal)
CPT/HCPCS: 81003

== ENCOUNTER 2025-01-08 16:19 | Outpatient (REF) | payer OTHER, SELFPAY | END 2025-01-08 16:20 | disposition home or self-care (01) | LOC: HO.LAB 16:19 | PROVIDERS: Visit Provider Urology | DX: R35.0 Frequency of micturition (principal); R32 Unspecified urinary incontinence; R31.29 Other microscopic hematuria; R39.15 Urgency of urination | CPT/HCPCS: 88112 ==

== ENCOUNTER 2025-01-12 14:53 | Outpatient (AMB) | payer OTHER, SELFPAY ==
--- NOTE | 2025-01-12 14:53 | A.OFFVIS_ITS ---
Intake Visit Reasons: Procedure disscussion Intake Note: Patient presents today for procedure disscussion Urology Medication:None Blood Thinner:None Antibiotic Allergies:None Rehabilitation Aide/Scheduler Required: Yes Rehabilitation Aide/Scheduler Name: [id number] Information Interpreted: non-clinical & clinical Allergies amitriptyline Allergy (Intermediate, Verified 02/11/25 19:41) headache ibuprofen (From Motrin) Allergy (Intermediate, Verified 02/11/25 19:41) ITCHY RASH shrimp Allergy (Mild, Verified 02/11/25 19:41) Unknown seafood Allergy (Verified 02/11/25 19:41) Unknown gabapentin Adverse Reaction (Intermediate, Verified 02/11/25 19:41) vomiting HPI Comments Details: 01/12/25--Telehealth visit--Peace is a Yoruba-speaking female 54-year-old who had a CT scan December 06 2024 that noted left hydronephrosis with bladder wall thickening suggestive of cystitis. There were no renal calculi noted. I have discussed further evaluation with office cystoscopy and repeat renal ultrasound. History of Present Illness - The patient is a 54-year-old female presenting with bladder wall thickening and left hydronephrosis. - A CT scan performed in November showed bladder wall thickening and left hydronephrosis, suggestive of cystitis. - No renal calculi were noted on the CT scan. - The patient has been advised to undergo further evaluation with office cystoscopy and repeat renal ultrasound. Results -[facility] - 12/06/24--1. Mild left hydronephrosis. No obstructing calculus identified. Recently passed stone versus infection. 2. Mild urinary bladder wall thickening raises the possibility of cystitis Plan - Schedule an office cystoscopy to evaluate the bladder wall thickening. - renal ultrasound to reassess the kidneys. [facility] Medical History Dysphagia Moderate recurrent major depression Left sided abdominal pain Generalized pruritus Smoking 1/2 pack a day or less Asthma-COPD overlap syndrome Acute maxillary sinusitis Otitis externa Hospital discharge follow-up Microscopic hematuria Physical exam Goiter Blurry vision Tobacco dependence Has daytime drowsiness Pulmonary nodules Dyspnea Hand pain Skin lesion Leg pain, bilateral Dyslipidemia Epigastric pain Essential hypertension Cervical cancer screening GERD (gastroesophageal reflux disease) HTN (hypertension) Migraine Anxiety Depression Right lower quadrant pain Fibromyalgia Surgical History Previous section History of breast lump/mass excision History of lithotripsy H/O LEEP H/O tubal ligation Family History Father Myocardial infarction Mother Lung cancer Brother Liver cancer Maternal Grandfather Stomach cancer Maternal Grandmother No problems noted. Social History Housing: Apartment Alcohol intake: never Patient Tobacco Use Status: Current someday Tobacco user Tobacco use type: Cigarette Cigarette Packs Per Day: 0.25 Cigarettes Per Day: 3 e-Cigarette/Vaping Use: Never Used Second Hand Smoke Exposure: Yes service: No Current occupational status: disabled Gender identity: Female Cognitive needs: No Hearing needs: No Vision needs: No Female Reproductive History Menstrual Age of Menarche: 9 Review of Systems Const All systems reviewed & are unremarkable except as noted in HPI and below Reports no additional complaints Eyes Reports no additional complaints ENT Reports no additional complaints Card Reports no additional complaints Resp Reports no additional complaints GI Reports no additional complaints Reports as per HPI Musc Reports no additional complaints Skin/Breast Reports system reviewed and no additional complaints, except as documented Neuro Reports no additional complaints Psych Reports no additional complaints Endo Reports no additional complaints Antonio/Lymph Reports no additional complaints Aller/Immun Reports no additional complaints Telehealth Telehealth Telehealth Platform: Telephone Location of provider rendering services: practice address Location of patient: address on file Patient Identification confirmed using: Name, : Yes Telehealth method: voice only Patient verbally consented to treatment: Yes Patient verbally consented to billing insurance company: Yes Patient informed of any privacy concerns related to visit: Yes Minutes spent on Phone/Video with Pt.: 16 Results Reviewed Results Reviewed: Date of Service: 12/06/24 CT ABDOMEN AND PELVIS WITHOUT CONTRAST Comparison: None provided Findings: Mild bibasilar atelectasis. No consolidation or pleural effusion. Multiple scattered small calcified pulmonary granulomas. There is mild left hydronephrosis. There is no obstructing calculus. There are no acute abnormalities in the remaining unenhanced solid organs. There is a 3 cm cyst in the right kidney. The gallbladder is contracted. No AAA. No bowel obstruction, pneumoperitoneum, or pneumatosis. No ascites. No significant mesenteric or paracolic edema. Mild colonic diverticulosis. Wcosmoys-ls-pcowy colonic stool burden. The appendix is identified. No acute appendicitis. CT appearances of the uterus and ovaries unremarkable. Mild diffuse urinary bladder wall thickening. The bones are intact. IMPRESSION: 1. Mild left hydronephrosis. No obstructing calculus identified. Recently passed stone versus infection. 2. Mild urinary bladder wall thickening raises the possibility of cystitis in the appropriate clinical setting. 3. No obstructive or acute inflammatory changes in the gastrointestinal tract. Assessment & Plan Assessment & Plan (1) Bladder wall thickening: Code(s): N32.89 - Other specified disorders of bladder Category: Medical (2) Cystitis with hematuria: Code(s): N30.91 - Cystitis, unspecified with hematuria Category: Medical Plan Plan - Schedule an office cystoscopy to evaluate the bladder wall thickening. - renal ultrasound to reassess the kidneys. Patient Instructions: The patient had an opportunity to ask questions regarding treatment plan. The patient expressed understanding and agreement with the above treatment plan. The patient is aware they should contact our office by phone for worsening of their current condition or the appearance of new symptoms. Compliance is encouraged with any medications and followup testing that is ordered. It is a privilege to be allowed the opportunity to participate in the urologic care of your patient. If you have any questions or concerns regarding treatment for the above conditions please do not hesitate to contact me. The office telephone contact is [phone]. This note is constructed in part using voice recognition software. While every effort has been made to ensure accuracy lace burn out tender errors may have been included. Yours sincerely, Daisy Redding MD Scribe Plan - Not visible on output: Patient was informed and verbally consented to the use of an ambient scribe for clinic note documentation during this visit. Coding Level of Care Code Tele Est Pt Level 4 (51352) Diagnoses Bladder wall thickening N32.89 Cystitis with hematuria N30.91
== END 2025-01-12 15:07 | disposition home or self-care (01) ==
LOC: HO.HUSH 14:53
PROVIDERS: PCP Internal Medicine; Visit Provider Urology
DX: N32.89 Other specified disorders of bladder (principal); N30.91 Cystitis, unspecified with hematuria
CPT/HCPCS: 99214

== ENCOUNTER 2025-01-20 13:32 | Emergency (ER) | payer OTHER, SELFPAY ==
--- NOTE | ~2025-01-20 | XR_ITS ---
EXAMINATION: XR ABDOMEN KUB CLINICAL INDICATION: constipation COMPARISON: None available. TECHNIQUE: AP view of the abdomen. FINDINGS: Bowel gas pattern is normal/nonspecific. There is no focally dilated loop of bowel. There is moderate fecal residue seen throughout the colon and rectum in keeping with constipation. There is no organomegaly. There are no abnormal soft tissue calcifications. The lung bases are clear. There is no suspicious bone lesion. XR/XR KUB IMPRESSION: Moderate constipation. No bowel obstruction. Electronically signed by: Spencer Bradley MD 01/20/2025 02:47 PM EDT
[2025-01-20 13:51] VITALS: BP 147/67; PULSE 81; RESP 16; TEMP 36.8; O2SAT 99; BMI 29.2
--- NOTE | 2025-01-20 13:52 | ED.ABDPAIN ---
HPI - Abdominal Pain General Chief Complaint: Abdominal Pain Stated Complaint: Constipation, nausea, headache Time Seen by Provider: 01/20/25 18:39 Source: patient Limitations: no limitations History of Present Illness ED Provider: HPI narrative: Patient's been constipated for last few weeks tried Colace without much relief feel bloated No nausea no vomiting history of same in the past Related Data Previous Rx's ?Medication ?Instructions ?Recorded cane #1 ea 09/06/22 acetaminophen 500 mg tablet 1,000 mg (2 x 500 mg) PO TID PRN 10/07/22 pain #20 tabs underpads (Bed Underpads) #100 ea 03/28/23 walker #1 ea 03/28/23 lidocaine 5 % topical patch 1 patch topical DAILY #30 ea 01/05/24 (Lidoderm) naloxone 10 mg/0.4 mL 2 mg (0.08 mL) subcut Q3M 30 days 01/09/24 injection,auto-injector #4 mL nebulizers (AeroEclipse II #1 ea 04/03/24 Nebulizer) riboflavin (vitamin B2) 400 mg 400 mg PO DAILY 30 days #30 tabs 04/16/24 tablet montelukast 10 mg tablet 10 mg PO BEDTIME 30 days #30 tabs 04/22/24 (Singulair) varenicline tartrate 0.5 mg (11)-1 See Rx Instructions PO PER PKG DIR 04/22/24 mg (42) tablets in a dose pack #42 ea (Chantix Starting Month Box) cholecalciferol (vitamin D3) 50 50 mcg PO DAILY 90 days #90 tabs 04/24/24 mcg (2,000 unit) tablet olopatadine 0.7 % eye drops 1 drp ophthalmic (eye) Q24H PRN 08/11/24 (Pataday Once Daily Relief) itching #5 mL fluticasone propionate 50 1 spray intranasal BID PRN nasal 09/21/24 mcg/actuation nasal congestion #16 grams spray,suspension (Flonase Allergy Relief) albuterol sulfate 90 mcg/actuation 2 puff inhalation Q4-6H PRN 10/03/24 aerosol inhaler shortness of breath or wheezing #6.7 grams diphenhydramine HCl 25 mg capsule 50 mg (2 x 25 mg) PO Q6H PRN 10/06/24 allergic reaction #20 caps epinephrine 0.3 mg/0.3 mL 0.3 mg (0.3 mL) IM Q10M PRN 10/06/24 injection, auto-injector (EpiPen anaphylaxis #2 ea 2-Pantera) menthol 0.1 % lotion (Eucerin Itch 1 ea topical BID 14 days #250 mL 10/06/24 Relief) fexofenadine 180 mg tablet 180 mg PO DAILY #90 tabs 10/09/24 (Gemini Allergy) hydrocortisone 2.5 % topical 1 appl topical BID-TID PRN itching 10/09/24 ointment #454 grams clonazepam 0.5 mg tablet 0.5 mg PO BID PRN anxiety 30 days 10/16/24 #60 tabs zolpidem 5 mg tablet (Ambien) 5 mg PO BEDTIME #30 tabs 10/16/24 rimegepant 75 mg disintegrating 75 mg PO ONCE PRN migraine 10/24/24 tablet (Nurtec ODT) headache 30 days #15 tabs magnesium oxide 400 mg (241.3 mg 400 mg PO BEDTIME 30 days #30 tabs 10/28/24 magnesium) tablet fenofibrate 54 mg tablet 54 mg PO DAILY 90 days #90 tabs 11/06/24 blood pressure monitor (Blood #1 ea 11/21/24 Pressure Kit) lidocaine HCl 2 % mucosal solution 1 appl topical QID PRN head pain 11/26/24 (Lidocaine Viscous) 30 days #100 mL hydroxyzine HCl 50 mg tablet 50 mg PO Q8H PRN nausea and 12/03/24 vomiting #90 tabs meclizine 25 mg tablet 25 mg PO TID #20 tabs 12/03/24 galcanezumab-gnlm 120 mg/mL 120 mg subcut Q30D 30 days #1 mL 12/05/24 subcutaneous pen injector (Emgality Pen) paroxetine HCl 10 mg tablet 10 mg PO DAILY #30 tabs 12/18/24 hydrochlorothiazide 12.5 mg tablet 12.5 mg PO DAILY 90 days #90 tabs 12/23/24 azithromycin 250 mg tablet 250 mg PO DAILY 4 days #4 tabs 12/27/24 fluticasone propionate 50 2 spray intranasal DAILY PRN nasal 12/27/24 mcg/actuation nasal congestion #16 grams spray,suspension (Flonase Allergy Relief) tramadol 50 mg tablet 50 mg PO BID PRN severe pain 01/02/25 (scale score 7-10) 30 days #60 tabs polyethylene glycol 3350 17 17 g PO DAILY PRN constipation 01/20/25 gram/dose oral powder (Miralax) #510 grams sennosides 8.6 mg tablet (Senna 8.6 mg PO BEDTIME PRN constipation 01/20/25 Laxative) #30 tabs Allergies Allergy/AdvReac Type Severity Reaction Status Date / Time amitriptyline Allergy Intermediate headache Verified 01/20/25 13:53 ibuprofen (From Motrin) Allergy Intermediate ITCHY RASH Verified 01/20/25 13:53 shrimp Allergy Mild Unknown Verified 01/20/25 13:53 seafood Allergy Unknown Verified 01/20/25 13:53 gabapentin AdvReac Intermediate vomiting Verified 01/20/25 13:53 Review of Systems Review of Systems Yes all other systems are reviewed and are negative PMFSH Past Medical History Medical History Moderate recurrent major depression Left sided abdominal pain Generalized pruritus Smoking 1/2 pack a day or less Asthma-COPD overlap syndrome Acute maxillary sinusitis Otitis externa Hospital discharge follow-up Microscopic hematuria Physical exam Goiter Blurry vision Tobacco dependence Has daytime drowsiness Pulmonary nodules Dyspnea Hand pain Skin lesion Leg pain, bilateral Dyslipidemia Epigastric pain Essential hypertension Cervical cancer screening GERD (gastroesophageal reflux disease) HTN (hypertension) Migraine Anxiety Depression Right lower quadrant pain Fibromyalgia Surgical History Previous section History of breast lump/mass excision History of lithotripsy H/O LEEP H/O tubal ligation Family History Family History Father Myocardial infarction Mother Lung cancer Brother Liver cancer Maternal Grandfather Stomach cancer Maternal Grandmother No problems noted. Social History Social History Housing: Apartment Alcohol intake: never Patient Tobacco Use Status: Current someday Tobacco user Tobacco use type: Cigarette Cigarette Packs Per Day: 0.25 Cigarettes Per Day: 3 e-Cigarette/Vaping Use: Never Used Second Hand Smoke Exposure: Yes Advance Directives: No Advance Directives Information Provided: No service: No Current occupational status: disabled Gender identity: Female Cognitive needs: No Hearing needs: No Vision needs: No Physical Exam ED Vital Signs: Vital Signs - 24 hr 01/20/25 13:51 Temperature 98.2 F Pulse Rate 81 Respiratory Rate 16 Blood Pressure 147/67 H Pulse Oximetry 99 Oxygen Delivery Method Room Air BMI result Body Mass Index 29.2 Appearance: Alert. Oriented X3. No acute distress. Eyes: no pallor or icterus ENT: Pharynx normal Oral Mucosa moist tympanic membrane intact no erythema, Neck: Normal inspection. Neck supple. CVS: Normal heart rate and rhythm. Pulses normal. Respiratory: No respiratory distress. Equal air entry bilateral, no wheezing/rales/rhonchi Abd: soft, not tender diffuse fullness no rebound tenderness or guarding rectal soft stool Skin: Skin warm and dry. Normal skin color. Normal skin turgor. Extremities: No lower extremity edema, no calf tenderness Neuro: Oriented X 3. Course Course Course Narrative: This is a Rapid Medical Examination (RME) performed by Babita Dasilva PA-C in triage. Full HPI, ROS, assessment and treatment plan per primary provider in the Main ED. 54 yo female presents to the ER for evaluation of 2 weeks of constipation along w/ nausea and headache. she has had intermittent cramping abd pains. no vomiting. she is passing flatus. abd is soft and mild diffuse tenderness, normal active bowel sounds in triage. Plan: labs and KUB Medical Decision Making Medical Decision Making [facility] Narrative: Patient with constipation without fecal impaction no signs of small-bowel obstruction x-ray negative except for the stool patient was given Mag citrate advised to follow up with outpatient Lab Data [facility] Lab Attestation statement: I reviewed the patient's lab results. 01/20/25 14:22 01/20/25 14:22 Labs: Lab Results 01/20/25 Range/Units 14:22 WBC 7.3 (4.8-10.8) X10*3/uL RBC 4.42 (4.20-5.50) X10*6/uL Hgb 11.6 L (12.0-16.0) g/dl Hct 37.0 (37.0-47.0) % MCV 83.7 (80.0-98.0) fL MCH 26.2 L (27.0-33.0) pg MCHC 31.4 (31.0-35.0) g/dl RDW 15.8 (11.0-16.0) % Plt Count 270 (160-400) X10*3/uL MPV 10.1 (9.4-12.3) fL Immature Gran % (Auto) 0.4 (0.0-0.4) % Neut % (Auto) 48.5 (45-73) % Lymph % (Auto) 40.2 H (20-40) % Union % (Auto) 8.0 (2-11) % Eos % (Auto) 2.1 (0-4) % Baso % (Auto) 0.8 (0-2) % Lymph # (Auto) 2.9 (1.2-4.9) X10*3/uL Union # (Auto) 0.6 (0.1-1.2) X10*3/uL Eos # (Auto) 0.2 (0.0-0.4) X10*3/uL Baso # (Auto) 0.1 (0.0-0.2) X10*3/uL Abs Immat Gran (auto) 0.03 (0.00-0.03) X10*3/uL Absolute Neuts (auto) 3.5 (2.0-8.3) x10*3/uL Absolute Nucleated RBC 0.000 (0.0-0.012) X10*3/uL Nucleated RBC % (auto) 0.0 (0.0-0.2) /100WBC Sodium 144 (135-145) mmol/L Potassium 3.8 (3.3-5.1) mmol/L Chloride 109 H (96-108) mmol/L Carbon Dioxide 30 H (22-29) mmol/L Anion Gap 9 L (12-20) BUN 16 (9-16) mg/dL Creatinine 0.91 (0.5-1.4) mg/dL Estim Creat Clear Calc 66.8 Estimated GFR > 60 Random Glucose 80 (60-115) mg/dL Calcium 8.7 D (8.4-10.2) mg/dL Magnesium 1.9 (1.6-2.6) mg/dL Total Bilirubin 0.2 (0.0-1.0) mg/dL Direct Bilirubin < 0.2 (0.0-0.5) mg/dL AST 18 (5-31) U/L ALT 15 (0-31) U/L Alkaline Phosphatase 104 (39-117) U/L Total Protein 6.7 (6.5-8.0) g/dL Albumin 4.0 (3.5-5.0) g/dL Independent Interpretation I performed an independent interpretation of an: Plain X-Ray Radiology Impression Discussion of test interpretation with radiology: I have reviewed the radiologist's reading. Discharge Plan Discharge Clinical Impression: Constipation Patient Disposition: Home, Self-Care Instructions: Constipation (DC) Additional Instructions: Drink lots of fluids Have lot of fiber in the food MiraLax and senna daily for constipation Prescriptions: New polyethylene glycol 3350 [Miralax] 17 gram/dose powder 17 g PO DAILY PRN (Reason: constipation) Qty: 510 0RF sennosides [Senna Laxative] 8.6 mg tablet 8.6 mg PO BEDTIME PRN (Reason: constipation) Qty: 30 0RF No Action (DME) cane Device See Rx Instructions .Route Qty: 1 0RF Rx Instructions: As directed (DME) walker Misc See Rx Instructions .Route Qty: 1 0RF Rx Instructions: To be use lifetime (DME) underpads [Bed Underpads] Pad See Rx Instructions .Route Qty: 100 0RF Rx Instructions: As directed naloxone 10 mg/0.4 mL auto-injector 2 mg subcut Q3M 30 Days Qty: 4 0RF Rx Instructions: until desired response riboflavin (vitamin B2) 400 mg tablet 400 mg PO DAILY 30 Days Qty: 30 6RF cholecalciferol (vitamin D3) 50 mcg (2,000 unit) tablet 50 mcg PO DAILY 90 Days Qty: 90 1RF Nurtec ODT 75 mg tablet,disintegrating 75 mg PO ONCE MDD 1 tab PRN (Reason: migraine headache) 30 Days Qty: 15 6RF Rx Instructions: Prior authorization approved through 04/22/2025 fenofibrate 54 mg tablet 54 mg PO DAILY 90 Days Qty: 90 1RF (DME) blood pressure monitor [Blood Pressure Kit] Kit See Rx Instructions .ROUTE .MEDSUPPLY Qty: 1 0RF Rx Instructions: As directed hydroxyzine HCl 50 mg tablet 50 mg PO Q8H PRN (Reason: nausea and vomiting) Qty: 90 1RF Emgality Pen 120 mg/mL pen injector 120 mg subcut Q30D 30 Days Qty: 1 6RF Rx Instructions: Maintenance dose of 120 mg subcu q.month. [place] APPROVED 12/04/24-06/05/25 hydrochlorothiazide 12.5 mg tablet 12.5 mg PO DAILY 90 Days Qty: 90 3RF tramadol 50 mg tablet 50 mg PO BID PRN (Reason: severe pain (scale score 7-10)) 30 Days Qty: 60 0RF acetaminophen 500 mg tablet 1,000 mg PO TID PRN (Reason: pain) Qty: 20 0RF lidocaine [Lidoderm] 5 % adhesive patch,medicated 1 patch topical DAILY Qty: 30 0RF Rx Instructions: leave on most painful area for up to 12 hrs fluticasone propionate [Flonase Allergy Relief] 50 mcg/actuation spray,suspension 1 spray intranasal BID PRN (Reason: nasal congestion) Qty: 16 0RF Rx Instructions: administer into each nostril albuterol sulfate 90 mcg/actuation HFA aerosol inhaler 2 puff inhalation Q4-6H PRN (Reason: shortness of breath or wheezing) Qty: 6.7 0RF meclizine 25 mg tablet 25 mg PO TID Qty: 20 0RF azithromycin 250 mg tablet 250 mg PO DAILY 4 Days Qty: 4 0RF Rx Instructions: start on day 2 of therapy fluticasone propionate [Flonase Allergy Relief] 50 mcg/actuation spray,suspension 2 spray intranasal DAILY PRN (Reason: nasal congestion) Qty: 16 0RF Rx Instructions: administer into each nostril lidocaine HCl [Lidocaine Viscous] 2 % solution 1 appl topical QID PRN (Reason: head pain) 30 Days Qty: 100 1RF diphenhydramine HCl 25 mg capsule 50 mg PO Q6H PRN (Reason: allergic reaction) Qty: 20 0RF epinephrine [EpiPen 2-Pantera] 0.3 mg/0.3 mL auto-injector 0.3 mg IM Q10M PRN (Reason: anaphylaxis) Qty: 2 0RF Rx Instructions: for 3 doses Eucerin Itch Relief 0.1 % lotion 1 ea topical BID 14 Days Qty: 250 0RF hydrocortisone 2.5 % ointment 1 appl topical BID-TID PRN (Reason: itching) Qty: 454 1RF fexofenadine [Gemini Allergy] 180 mg tablet 180 mg PO DAILY Qty: 90 1RF magnesium oxide 400 mg (241.3 mg magnesium) tablet 400 mg PO BEDTIME 30 Days Qty: 30 6RF Rx Instructions: may hold for loose stools montelukast [Singulair] 10 mg tablet 10 mg PO BEDTIME 30 Days Qty: 30 11RF varenicline tartrate [Chantix Starting Month Box] 0.5 mg (11)- 1 mg (42) tablets,dose pack See Rx Instructions PO PER PKG DIR Qty: 42 0RF Rx Instructions: PO PER PKG DIR (DME) nebulizers [AeroEclipse II Nebulizer] Misc See Rx Instructions .Route Qty: 1 0RF Rx Instructions: As directed Pataday Once Daily Relief 0.7 % drops 1 drp ophthalmic (eye) Q24H PRN (Reason: itching) Qty: 5 0RF clonazepam 0.5 mg tablet 0.5 mg PO BID PRN (Reason: anxiety) 30 Days Qty: 60 1RF zolpidem [Ambien] 5 mg tablet 5 mg PO BEDTIME Qty: 30 1RF paroxetine HCl 10 mg tablet 10 mg PO DAILY Qty: 30 2RF Print Language: Mongolian
[2025-01-20 14:27] LABS: MANUAL DIFF FLAG NO
[2025-01-20 14:29] LABS: Hematocrit 37.0 % (37.0-47.0); Hemoglobin 11.6 g/dl (12.0-16.0); Imm Gran Abs Auto 0.03 X10*3/uL (0.00-0.03); Imm Gran Pct Auto 0.4 % (0.0-0.4); Lymphocytes Absolute Auto 2.9 X10*3/uL (1.2-4.9); Mean Corpuscular HGB Conc 31.4 g/dl (31.0-35.0); Mean Corpuscular Hemoglobin 26.2 pg (27.0-33.0); Mean Corpuscular Volume 83.7 fL (80.0-98.0); NRBC Abs Auto 0.000 X10*3/uL (0.0-0.012); NRBC Pct Auto 0.0 /100WBC (0.0-0.2); Platelet Count 270 X10*3/uL (160-400); Red Blood Count 4.42 X10*6/uL (4.20-5.50); White Blood Count 7.3 X10*3/uL (4.8-10.8)
[2025-01-20 14:46] LABS: Alanine Aminotransferase 15 U/L (0-31); Albumin Level 4.0 g/dL (3.5-5.0); Alkaline Phosphatase 104 U/L (39-117); Anion Gap 9 (12-20); Aspartate Amino Transferase 18 U/L (5-31); Blood Urea Nitrogen 16 mg/dL (9-16); Calcium 8.7 mg/dL (8.4-10.2); Carbon Dioxide 30 mmol/L (22-29); Chloride 109 mmol/L (96-108); Creatinine Clr Calc Pharmacy 66.8; Estimated Glomerular Filt Rate > 60; Magnesium 1.9 mg/dL (1.6-2.6); Potassium 3.8 mmol/L (3.3-5.1); Sodium 144 mmol/L (135-145); Total Protein 6.7 g/dL (6.5-8.0)
[2025-01-20 19:06] VITALS: BP 113/78; PULSE 74; RESP 16; TEMP 36.9; O2SAT 99
[2025-01-20 19:28] VITALS: BP 113/78; PULSE 74; RESP 16; TEMP 36.9; O2SAT 99
== END 2025-01-20 19:30 | disposition home or self-care (01) ==
PROVIDERS: Physician Assistant; Emergency Provider Internal Medicine; PCP Internal Medicine
DX: K59.00 Constipation, unspecified (principal)
CPT/HCPCS: 36415; 74018; 80048; 80076; 83735; 85025; 99283

== ENCOUNTER → 2025-01-20 13:54 | Outpatient (BNV) | payer OTHER, SELFPAY | PROVIDERS: PCP Internal Medicine; Visit Provider Radiology Diagnostic Radiology | DX: K59.00 Constipation, unspecified (principal) | CPT/HCPCS: 74018 ==

== ENCOUNTER 2025-01-23 15:15 | Emergency (ER) | payer OTHER, SELFPAY ==
[2025-01-23 15:34] VITALS: BP 130/71; PULSE 75; RESP 16; TEMP 36.8; O2SAT 96; BMI 29.0
--- NOTE | 2025-01-23 15:39 | ED.GENADULT ---
HPI - General Adult General Chief complaint: Abdominal Pain Stated complaint: headache, n/v, constipation Time Seen by Provider: 01/24/25 00:02 Source: patient Mode of arrival: ambulatory Limitations: no limitations History of Present Illness ED Provider: Spencer MENDIOLA HPI narrative: The patient is a 54-year-old female with a extensive past medical history presenting to the ED for evaluation of ongoing constipation for the past 2 weeks. Patient reports she has not had a successful bowel movement for the past 2 weeks, was seen in this ED 2 days ago and KUB showed significant stool burden, patient has been attempting Colace without relief, patient was treated with magnesium citrate as well as MiraLax and discharged to follow up outpatient with PCP. The patient reports no relief from constipation despite the interventions from previous visit. Patient returns for re-evaluation reporting increasing pain diffusely but localizing in the left upper quadrant. The patient denies associated fever/chills, nausea, vomiting, hematochezia, melena, or other acute somatic complaint. Related Data Previous Rx's ?Medication ?Instructions ?Recorded cane #1 ea 09/06/22 acetaminophen 500 mg tablet 1,000 mg (2 x 500 mg) PO TID PRN 10/07/22 pain #20 tabs underpads (Bed Underpads) #100 ea 03/28/23 walker #1 ea 03/28/23 lidocaine 5 % topical patch 1 patch topical DAILY #30 ea 01/05/24 (Lidoderm) naloxone 10 mg/0.4 mL 2 mg (0.08 mL) subcut Q3M 30 days 01/09/24 injection,auto-injector #4 mL nebulizers (AeroEclipse II #1 ea 04/03/24 Nebulizer) riboflavin (vitamin B2) 400 mg 400 mg PO DAILY 30 days #30 tabs 04/16/24 tablet montelukast 10 mg tablet 10 mg PO BEDTIME 30 days #30 tabs 04/22/24 (Singulair) varenicline tartrate 0.5 mg (11)-1 See Rx Instructions PO PER PKG DIR 04/22/24 mg (42) tablets in a dose pack #42 ea (Chantix Starting Month Box) cholecalciferol (vitamin D3) 50 50 mcg PO DAILY 90 days #90 tabs 04/24/24 mcg (2,000 unit) tablet olopatadine 0.7 % eye drops 1 drp ophthalmic (eye) Q24H PRN 08/11/24 (Pataday Once Daily Relief) itching #5 mL fluticasone propionate 50 1 spray intranasal BID PRN nasal 09/21/24 mcg/actuation nasal congestion #16 grams spray,suspension (Flonase Allergy Relief) albuterol sulfate 90 mcg/actuation 2 puff inhalation Q4-6H PRN 10/03/24 aerosol inhaler shortness of breath or wheezing #6.7 grams diphenhydramine HCl 25 mg capsule 50 mg (2 x 25 mg) PO Q6H PRN 10/06/24 allergic reaction #20 caps epinephrine 0.3 mg/0.3 mL 0.3 mg (0.3 mL) IM Q10M PRN 10/06/24 injection, auto-injector (EpiPen anaphylaxis #2 ea 2-Pantera) menthol 0.1 % lotion (Eucerin Itch 1 ea topical BID 14 days #250 mL 10/06/24 Relief) fexofenadine 180 mg tablet 180 mg PO DAILY #90 tabs 10/09/24 (Gemini Allergy) hydrocortisone 2.5 % topical 1 appl topical BID-TID PRN itching 10/09/24 ointment #454 grams clonazepam 0.5 mg tablet 0.5 mg PO BID PRN anxiety 30 days 10/16/24 #60 tabs zolpidem 5 mg tablet (Ambien) 5 mg PO BEDTIME #30 tabs 10/16/24 rimegepant 75 mg disintegrating 75 mg PO ONCE PRN migraine 10/24/24 tablet (Nurtec ODT) headache 30 days #15 tabs magnesium oxide 400 mg (241.3 mg 400 mg PO BEDTIME 30 days #30 tabs 10/28/24 magnesium) tablet fenofibrate 54 mg tablet 54 mg PO DAILY 90 days #90 tabs 11/06/24 blood pressure monitor (Blood #1 ea 11/21/24 Pressure Kit) lidocaine HCl 2 % mucosal solution 1 appl topical QID PRN head pain 11/26/24 (Lidocaine Viscous) 30 days #100 mL hydroxyzine HCl 50 mg tablet 50 mg PO Q8H PRN nausea and 12/03/24 vomiting #90 tabs meclizine 25 mg tablet 25 mg PO TID #20 tabs 12/03/24 galcanezumab-gnlm 120 mg/mL 120 mg subcut Q30D 30 days #1 mL 12/05/24 subcutaneous pen injector (Emgality Pen) paroxetine HCl 10 mg tablet 10 mg PO DAILY #30 tabs 12/18/24 hydrochlorothiazide 12.5 mg tablet 12.5 mg PO DAILY 90 days #90 tabs 12/23/24 azithromycin 250 mg tablet 250 mg PO DAILY 4 days #4 tabs 12/27/24 fluticasone propionate 50 2 spray intranasal DAILY PRN nasal 12/27/24 mcg/actuation nasal congestion #16 grams spray,suspension (Flonase Allergy Relief) tramadol 50 mg tablet 50 mg PO BID PRN severe pain 01/02/25 (scale score 7-10) 30 days #60 tabs polyethylene glycol 3350 17 17 g PO DAILY PRN constipation 01/20/25 gram/dose oral powder (Miralax) #510 grams sennosides 8.6 mg tablet (Senna 8.6 mg PO BEDTIME PRN constipation 01/20/25 Laxative) #30 tabs Allergies Allergy/AdvReac Type Severity Reaction Status Date / Time amitriptyline Allergy Intermediate headache Verified 01/23/25 15:36 ibuprofen (From Motrin) Allergy Intermediate ITCHY RASH Verified 01/23/25 15:36 shrimp Allergy Mild Unknown Verified 01/23/25 15:36 seafood Allergy Unknown Verified 01/23/25 15:36 gabapentin AdvReac Intermediate vomiting Verified 01/23/25 15:36 Review of Systems Review of Systems: Yes all other systems are reviewed and are negative PMFSH Past Medical History Medical History Moderate recurrent major depression Left sided abdominal pain Generalized pruritus Smoking 1/2 pack a day or less Asthma-COPD overlap syndrome Acute maxillary sinusitis Otitis externa Hospital discharge follow-up Microscopic hematuria Physical exam Goiter Blurry vision Tobacco dependence Has daytime drowsiness Pulmonary nodules Dyspnea Hand pain Skin lesion Leg pain, bilateral Dyslipidemia Epigastric pain Essential hypertension Cervical cancer screening GERD (gastroesophageal reflux disease) HTN (hypertension) Migraine Anxiety Depression Right lower quadrant pain Fibromyalgia Surgical History Previous section History of breast lump/mass excision History of lithotripsy H/O LEEP H/O tubal ligation Family History Family History Father Myocardial infarction Mother Lung cancer Brother Liver cancer Maternal Grandfather Stomach cancer Maternal Grandmother No problems noted. Social History Social History Housing: Apartment Alcohol intake: never Patient Tobacco Use Status: Current someday Tobacco user Tobacco use type: Cigarette Cigarette Packs Per Day: 0.25 Cigarettes Per Day: 3 e-Cigarette/Vaping Use: Never Used Second Hand Smoke Exposure: Yes Advance Directives: No Advance Directives Information Provided: Yes service: No Current occupational status: disabled Gender identity: Female Cognitive needs: No Hearing needs: No Vision needs: No Physical Exam ED Vital Signs: Vital Signs - 24 hr 01/23/25 15:34 01/23/25 19:00 01/23/25 23:24 Temperature 98.2 F 97.7 F 98.7 F Pulse Rate 75 80 79 Respiratory Rate 16 20 16 Blood Pressure 130/71 123/77 131/66 Pulse Oximetry 96 98 97 Oxygen Delivery Method Room Air Room Air Room Air BMI result Body Mass Index 29.0 CONSTITUTIONAL: The patient appears non-toxic, well nourished and in no acute distress. Vital signs as documented. HEAD: Atraumatic, normocephalic. EYES: EOMs grossly intact, pupils equal, conjunctiva clear, no exudate. ENT: Nares patent, no discharge. Airway patent, no audible stridor, visible mucosa is pink and moist without noted lesions. NECK: Trachea is midline, no obvious masses or gross abnormalities. CHEST: Symmetric movement, normal appearance. LUNGS: LS present and CTAB, no w/r/r. Non-labored work of breathing. CARDIAC: Regular Rhythm, S1/S2 appreciated, no murmurs, rubs or gallops. ABDOMEN: Abdomen soft x4 quadrants, qgay-wo-ifgedwiu tenderness diffusely, no focal tenderness, no rebound or guarding, no palpable masses or organomegaly. : Deferred. EXTREMITIES: Normal tone, moves all extremities spontaneously without reported pain. No obvious acute injury or deformity noted. NEURO: Alert and oriented x3, CN II-XII appear grossly intact. Cerebellar Functioning grossly intact. No obvious sensory or motor deficits. Speech clear and appropriate. PSYCH: normal affect, appropriate eye contact, fluid speech, with appropriate response to questioning. No reported suicidality or homicidality. SKIN: Warm, dry, color appropriate, normal turgor. No rashes noted. Course Course Course Narrative: RME performed by Belle Mckeon PA-C. Patient is a 54 year old assigned female at presenting to the emergency department with abdominal pain and constipation. Patient states she has not had a bowel movement for over 2 weeks and was seen here 2 days ago for this without relief. Detailed physical exam and review of systems are deferred to the orthotic/prosthetic clinician. Labs ordered. Patient placed back in the waiting room pending room availability and results. Medications Administered Discontinued Medications Generic Name Dose Route Start Last Admin Trade Name Freq PRN Reason Stop Dose Admin Sodium Biphosphate/Sodium Phosphate 133 ml 01/24/25 00:17 01/24/25 00:30 Sodium Phosphate,[place]-Dibasic 133 Ml Enema MO 01/24/25 00:18 133 ml ONCE ONE Administration Medical Decision Making Medical Decision Making [facility] Narrative: 12:10 AM 01/24/2025 (Mayda MENDIOLA): The patient is a 54-year-old female presenting to the ED for evaluation of persistent constipation despite attempts with Colace, MiraLax, and magnesium citrate. The patient in the ED is in no acute distress, laboratory evaluation is reassuring. The patient will be treated with enema and re-evaluated. 2:29 AM 01/24/2025 (Mayda MENDIOLA): The patient reports moving a moderate amount of stool after the enema, patient reports feeling improvement in her symptoms following the intervention, patient will be discharged with instructions to continue MiraLax and Colace. Admission/Observation Consideration of admission/observation: Escalation of care including admission/observation considered Lab Data [facility] Lab Attestation statement: I reviewed the patient's lab results. 01/23/25 15:46 01/23/25 15:46 Labs: Lab Results 01/23/25 Range/Units 15:46 WBC 8.7 (4.8-10.8) X10*3/uL RBC 4.62 (4.20-5.50) X10*6/uL Hgb 12.3 (12.0-16.0) g/dl Hct 37.9 (37.0-47.0) % MCV 82.0 (80.0-98.0) fL MCH 26.6 L (27.0-33.0) pg MCHC 32.5 (31.0-35.0) g/dl RDW 15.8 (11.0-16.0) % Plt Count 286 (160-400) X10*3/uL MPV 9.4 (9.4-12.3) fL Immature Gran % (Auto) 0.3 (0.0-0.4) % Neut % (Auto) 48.1 (45-73) % Lymph % (Auto) 42.0 H (20-40) % [place] % (Auto) 7.2 (2-11) % Eos % (Auto) 1.8 (0-4) % Baso % (Auto) 0.6 (0-2) % Lymph # (Auto) 3.7 (1.2-4.9) X10*3/uL [place] # (Auto) 0.6 (0.1-1.2) X10*3/uL Eos # (Auto) 0.2 (0.0-0.4) X10*3/uL Baso # (Auto) 0.1 (0.0-0.2) X10*3/uL Abs Immat Gran (auto) 0.03 (0.00-0.03) X10*3/uL Absolute Neuts (auto) 4.2 (2.0-8.3) x10*3/uL Absolute Nucleated RBC 0.000 (0.0-0.012) X10*3/uL Nucleated RBC % (auto) 0.0 (0.0-0.2) /100WBC Sodium 144 (135-145) mmol/L Potassium 3.6 (3.3-5.1) mmol/L Chloride 104 (96-108) mmol/L Carbon Dioxide 33 H (22-29) mmol/L Anion Gap 11 L (12-20) BUN 18 H (9-16) mg/dL Creatinine 0.98 (0.5-1.4) mg/dL Estim Creat Clear Calc 57.2 Estimated GFR 59 Random Glucose 73 (60-115) mg/dL Calcium 9.4 D (8.4-10.2) mg/dL Total Bilirubin 0.4 (0.0-1.0) mg/dL AST 18 (5-31) U/L ALT 15 (0-31) U/L Alkaline Phosphatase 115 (39-117) U/L Total Protein 7.3 (6.5-8.0) g/dL Albumin 4.4 (3.5-5.0) g/dL External Record Review External record reviewed: Outpatient record and Prior outpatient radiology Discharge Plan Discharge Clinical Impression: Constipation Patient Disposition: Home, Self-Care Instructions: Constipation (ED) Additional Instructions: Thank you for choosing [facility]'s Emergency Department for your care today. At this time there is no indication for admission to the hospital or continued ED observation, and it is safe to discharge you home. Please continue taking Colace and MiraLax as needed for additional constipation symptoms. You may take alternating (staggered) doses of ibuprofen 600mg and Tylenol 1000mg every 4 hours as needed for any additional pain. Please stay well hydrated and get plenty of rest. Please follow up with your primary care physician for re-evaluation, additional management of your symptoms, and continued preventative care. If you do not have a primary care physician, please call the [facility] at [phone] to establish a new primary care physician. While waiting to establish your new primary care physician, you can call our [facility] at [phone] for non-emergency needs. Please return to the emergency department if you develop a severe or sudden change in your symptoms, a fever over 100.4 that does not improve with Tylenol or Ibuprofen, recurrent vomiting, or any other new or worsening symptoms or concerns. Prescriptions: No Action (DME) cane Device See Rx Instructions .Route Qty: 1 0RF Rx Instructions: As directed (DME) walker Misc See Rx Instructions .Route Qty: 1 0RF Rx Instructions: To be use lifetime (DME) underpads [Bed Underpads] Pad See Rx Instructions .Route Qty: 100 0RF Rx Instructions: As directed naloxone 10 mg/0.4 mL auto-injector 2 mg subcut Q3M 30 Days Qty: 4 0RF Rx Instructions: until desired response riboflavin (vitamin B2) 400 mg tablet 400 mg PO DAILY 30 Days Qty: 30 6RF cholecalciferol (vitamin D3) 50 mcg (2,000 unit) tablet 50 mcg PO DAILY 90 Days Qty: 90 1RF Nurtec ODT 75 mg tablet,disintegrating 75 mg PO ONCE MDD 1 tab PRN (Reason: migraine headache) 30 Days Qty: 15 6RF Rx Instructions: Prior authorization approved through 04/22/2025 fenofibrate 54 mg tablet 54 mg PO DAILY 90 Days Qty: 90 1RF (DME) blood pressure monitor [Blood Pressure Kit] Kit See Rx Instructions .ROUTE .MEDSUPPLY Qty: 1 0RF Rx Instructions: As directed hydroxyzine HCl 50 mg tablet 50 mg PO Q8H PRN (Reason: nausea and vomiting) Qty: 90 1RF Emgality Pen 120 mg/mL pen injector 120 mg subcut Q30D 30 Days Qty: 1 6RF Rx Instructions: Maintenance dose of 120 mg subcu q.month. [place] APPROVED 12/04/24-06/05/25 hydrochlorothiazide 12.5 mg tablet 12.5 mg PO DAILY 90 Days Qty: 90 3RF tramadol 50 mg tablet 50 mg PO BID PRN (Reason: severe pain (scale score 7-10)) 30 Days Qty: 60 0RF acetaminophen 500 mg tablet 1,000 mg PO TID PRN (Reason: pain) Qty: 20 0RF lidocaine [Lidoderm] 5 % adhesive patch,medicated 1 patch topical DAILY Qty: 30 0RF Rx Instructions: leave on most painful area for up to 12 hrs fluticasone propionate [Flonase Allergy Relief] 50 mcg/actuation spray,suspension 1 spray intranasal BID PRN (Reason: nasal congestion) Qty: 16 0RF Rx Instructions: administer into each nostril polyethylene glycol 3350 [Miralax] 17 gram/dose powder 17 g PO DAILY PRN (Reason: constipation) Qty: 510 0RF sennosides [Senna Laxative] 8.6 mg tablet 8.6 mg PO BEDTIME PRN (Reason: constipation) Qty: 30 0RF albuterol sulfate 90 mcg/actuation HFA aerosol inhaler 2 puff inhalation Q4-6H PRN (Reason: shortness of breath or wheezing) Qty: 6.7 0RF meclizine 25 mg tablet 25 mg PO TID Qty: 20 0RF azithromycin 250 mg tablet 250 mg PO DAILY 4 Days Qty: 4 0RF Rx Instructions: start on day 2 of therapy fluticasone propionate [Flonase Allergy Relief] 50 mcg/actuation spray,suspension 2 spray intranasal DAILY PRN (Reason: nasal congestion) Qty: 16 0RF Rx Instructions: administer into each nostril lidocaine HCl [Lidocaine Viscous] 2 % solution 1 appl topical QID PRN (Reason: head pain) 30 Days Qty: 100 1RF diphenhydramine HCl 25 mg capsule 50 mg PO Q6H PRN (Reason: allergic reaction) Qty: 20 0RF epinephrine [EpiPen 2-Pantera] 0.3 mg/0.3 mL auto-injector 0.3 mg IM Q10M PRN (Reason: anaphylaxis) Qty: 2 0RF Rx Instructions: for 3 doses Eucerin Itch Relief 0.1 % lotion 1 ea topical BID 14 Days Qty: 250 0RF hydrocortisone 2.5 % ointment 1 appl topical BID-TID PRN (Reason: itching) Qty: 454 1RF fexofenadine [Gemini Allergy] 180 mg tablet 180 mg PO DAILY Qty: 90 1RF magnesium oxide 400 mg (241.3 mg magnesium) tablet 400 mg PO BEDTIME 30 Days Qty: 30 6RF Rx Instructions: may hold for loose stools montelukast [Singulair] 10 mg tablet 10 mg PO BEDTIME 30 Days Qty: 30 11RF varenicline tartrate [Chantix Starting Month Box] 0.5 mg (11)- 1 mg (42) tablets,dose pack See Rx Instructions PO PER PKG DIR Qty: 42 0RF Rx Instructions: PO PER PKG DIR (DME) nebulizers [AeroEclipse II Nebulizer] [facility] See Rx Instructions .Route Qty: 1 0RF Rx Instructions: As directed Pataday Once Daily Relief 0.7 % drops 1 drp ophthalmic (eye) Q24H PRN (Reason: itching) Qty: 5 0RF clonazepam 0.5 mg tablet 0.5 mg PO BID PRN (Reason: anxiety) 30 Days Qty: 60 1RF zolpidem [Ambien] 5 mg tablet 5 mg PO BEDTIME Qty: 30 1RF paroxetine HCl 10 mg tablet 10 mg PO DAILY Qty: 30 2RF Referrals: Neyda Foster MD [Primary Care Provider, Internal Medicine] Clinical Impression: Constipation Print Language: Urdu
[2025-01-23 15:50] LABS: MANUAL DIFF FLAG NO
[2025-01-23 15:51] LABS: Hematocrit 37.9 % (37.0-47.0); Hemoglobin 12.3 g/dl (12.0-16.0); Imm Gran Abs Auto 0.03 X10*3/uL (0.00-0.03); Imm Gran Pct Auto 0.3 % (0.0-0.4); Lymphocytes Absolute Auto 3.7 X10*3/uL (1.2-4.9); Mean Corpuscular HGB Conc 32.5 g/dl (31.0-35.0); Mean Corpuscular Hemoglobin 26.6 pg (27.0-33.0); Mean Corpuscular Volume 82.0 fL (80.0-98.0); NRBC Abs Auto 0.000 X10*3/uL (0.0-0.012); NRBC Pct Auto 0.0 /100WBC (0.0-0.2); Platelet Count 286 X10*3/uL (160-400); Red Blood Count 4.62 X10*6/uL (4.20-5.50); White Blood Count 8.7 X10*3/uL (4.8-10.8)
[2025-01-23 16:06] LABS: Alanine Aminotransferase 15 U/L (0-31); Albumin Level 4.4 g/dL (3.5-5.0); Alkaline Phosphatase 115 U/L (39-117); Anion Gap 11 (12-20); Aspartate Amino Transferase 18 U/L (5-31); Blood Urea Nitrogen 18 mg/dL (9-16); Calcium 9.4 mg/dL (8.4-10.2); Carbon Dioxide 33 mmol/L (22-29); Chloride 104 mmol/L (96-108); Creatinine Clr Calc Pharmacy 57.2; Estimated Glomerular Filt Rate 59; Potassium 3.6 mmol/L (3.3-5.1); Sodium 144 mmol/L (135-145); Total Protein 7.3 g/dL (6.5-8.0)
[2025-01-23 19:00] VITALS: BP 123/77; PULSE 80; RESP 20; TEMP 36.5; O2SAT 98
[2025-01-23 23:24] VITALS: BP 131/66; PULSE 79; RESP 16; TEMP 37.1; O2SAT 97
--- NOTE | 2025-01-24 00:48 | PC.NURSE ---
ambulated to bathroom without assistance. output of mild-moderate volume formed stool. pt states she feels alittle better.
[2025-01-24 02:27] VITALS: BP 134/81; PULSE 71; RESP 16; TEMP 36.5; O2SAT 100
[2025-01-24 02:35] VITALS: BP 134/81; PULSE 71; RESP 16; TEMP 36.5; O2SAT 100
== END 2025-01-24 02:35 | disposition home or self-care (01) ==
PROVIDERS: Physician Assistant Medical; Emergency Provider Emergency Medicine; PCP Internal Medicine
DX: K59.00 Constipation, unspecified (principal)
CPT/HCPCS: 36415; 80053; 85025; 99283; 99284

== ENCOUNTER 2025-01-25 02:04 | Emergency (ER) | payer OTHER, SELFPAY ==
--- NOTE | 2025-01-25 | ECG_ITS ---
Test Reason : CP Blood Pressure : */* mmHG Vent. Rate : 80 BPM Atrial Rate : 80 BPM P-R Int : 140 ms QRS Dur : 82 ms QT Int : 384 ms P-R-T Axes : 43 11 12 degrees QTcB Int : 442 ms Normal sinus rhythm Minimal voltage criteria for LVH, may be normal variant ( R in aVL ) Borderline ECG When compared with ECG of 27-Dec-2024 21:05, No significant change was found Referred By: Generic ED Physician Electronically Signed By: DAVON REVELES
[2025-01-25 02:07] VITALS: BP 110/76; PULSE 82; RESP 16; TEMP 36.9; O2SAT 988; BMI 27.6
[2025-01-25 02:41] LABS: MANUAL DIFF FLAG NO
[2025-01-25 02:44] LABS: Hematocrit 35.5 % (37.0-47.0); Hemoglobin 11.7 g/dl (12.0-16.0); Imm Gran Abs Auto 0.02 X10*3/uL (0.00-0.03); Imm Gran Pct Auto 0.3 % (0.0-0.4); Lymphocytes Absolute Auto 1.6 X10*3/uL (1.2-4.9); Mean Corpuscular HGB Conc 33.0 g/dl (31.0-35.0); Mean Corpuscular Hemoglobin 26.7 pg (27.0-33.0); Mean Corpuscular Volume 80.9 fL (80.0-98.0); NRBC Abs Auto 0.000 X10*3/uL (0.0-0.012); NRBC Pct Auto 0.0 /100WBC (0.0-0.2); Platelet Count 279 X10*3/uL (160-400); Red Blood Count 4.39 X10*6/uL (4.20-5.50); White Blood Count 7.9 X10*3/uL (4.8-10.8)
[2025-01-25 03:00] LABS: Alanine Aminotransferase 18 U/L (0-31); Albumin Level 4.2 g/dL (3.5-5.0); Alkaline Phosphatase 111 U/L (39-117); Anion Gap 13 (12-20); Aspartate Amino Transferase 22 U/L (5-31); Blood Urea Nitrogen 18 mg/dL (9-16); Calcium 9.3 mg/dL (8.4-10.2); Carbon Dioxide 25 mmol/L (22-29); Chloride 108 mmol/L (96-108); Creatinine Clr Calc Pharmacy 65.9; Estimated Glomerular Filt Rate > 60; Lipase 25 U/L (8-78); Potassium 4.1 mmol/L (3.3-5.1); Sodium 142 mmol/L (135-145); Total Protein 7.1 g/dL (6.5-8.0)
--- NOTE | 2025-01-25 03:31 | ED.ABDPAIN ---
HPI - Abdominal Pain General Chief Complaint: Headache Stated Complaint: n/v, headache Time Seen by Provider: 01/25/25 03:16 Source: patient Mode of arrival: ambulatory Limitations: no limitations History of Present Illness ED Provider: Dr. Veronika Shoemaker HPI narrative: Patient comes to the emergency room complaining of a headache. Patient states that she is prone to having migraine headaches. Today, the posterior aspect of her head hurts. Patient states that usually, she takes Fioricet but she ran out of them. Patient states that what she was getting dressed to come to the emergency room, at home she was feeling a bit lightheaded. Patient states that she has had vertigo symptoms in the past for which she takes meclizine but she did not have meclizine at home either. Denies nausea vomiting or diarrhea, patient denies chest pain or shortness of breath. Patient states that she was here a few days ago for constipation, patient states that she feels better. Related Data Previous Rx's ?Medication ?Instructions ?Recorded cane #1 ea 09/06/22 acetaminophen 500 mg tablet 1,000 mg (2 x 500 mg) PO TID PRN 10/07/22 pain #20 tabs underpads (Bed Underpads) #100 ea 03/28/23 walker #1 ea 03/28/23 lidocaine 5 % topical patch 1 patch topical DAILY #30 ea 01/05/24 (Lidoderm) naloxone 10 mg/0.4 mL 2 mg (0.08 mL) subcut Q3M 30 days 01/09/24 injection,auto-injector #4 mL nebulizers (AeroEclipse II #1 ea 04/03/24 Nebulizer) riboflavin (vitamin B2) 400 mg 400 mg PO DAILY 30 days #30 tabs 04/16/24 tablet montelukast 10 mg tablet 10 mg PO BEDTIME 30 days #30 tabs 04/22/24 (Singulair) varenicline tartrate 0.5 mg (11)-1 See Rx Instructions PO PER PKG DIR 04/22/24 mg (42) tablets in a dose pack #42 ea (Chantix Starting Month Box) cholecalciferol (vitamin D3) 50 50 mcg PO DAILY 90 days #90 tabs 04/24/24 mcg (2,000 unit) tablet olopatadine 0.7 % eye drops 1 drp ophthalmic (eye) Q24H PRN 08/11/24 (Pataday Once Daily Relief) itching #5 mL fluticasone propionate 50 1 spray intranasal BID PRN nasal 09/21/24 mcg/actuation nasal congestion #16 grams spray,suspension (Flonase Allergy Relief) albuterol sulfate 90 mcg/actuation 2 puff inhalation Q4-6H PRN 10/03/24 aerosol inhaler shortness of breath or wheezing #6.7 grams diphenhydramine HCl 25 mg capsule 50 mg (2 x 25 mg) PO Q6H PRN 10/06/24 allergic reaction #20 caps epinephrine 0.3 mg/0.3 mL 0.3 mg (0.3 mL) IM Q10M PRN 10/06/24 injection, auto-injector (EpiPen anaphylaxis #2 ea 2-Pantera) menthol 0.1 % lotion (Eucerin Itch 1 ea topical BID 14 days #250 mL 10/06/24 Relief) fexofenadine 180 mg tablet 180 mg PO DAILY #90 tabs 10/09/24 (Gemini Allergy) hydrocortisone 2.5 % topical 1 appl topical BID-TID PRN itching 10/09/24 ointment #454 grams clonazepam 0.5 mg tablet 0.5 mg PO BID PRN anxiety 30 days 10/16/24 #60 tabs zolpidem 5 mg tablet (Ambien) 5 mg PO BEDTIME #30 tabs 10/16/24 rimegepant 75 mg disintegrating 75 mg PO ONCE PRN migraine 10/24/24 tablet (Nurtec ODT) headache 30 days #15 tabs magnesium oxide 400 mg (241.3 mg 400 mg PO BEDTIME 30 days #30 tabs 10/28/24 magnesium) tablet fenofibrate 54 mg tablet 54 mg PO DAILY 90 days #90 tabs 11/06/24 blood pressure monitor (Blood #1 ea 11/21/24 Pressure Kit) lidocaine HCl 2 % mucosal solution 1 appl topical QID PRN head pain 11/26/24 (Lidocaine Viscous) 30 days #100 mL hydroxyzine HCl 50 mg tablet 50 mg PO Q8H PRN nausea and 12/03/24 vomiting #90 tabs meclizine 25 mg tablet 25 mg PO TID #20 tabs 12/03/24 galcanezumab-gnlm 120 mg/mL 120 mg subcut Q30D 30 days #1 mL 12/05/24 subcutaneous pen injector (Emgality Pen) paroxetine HCl 10 mg tablet 10 mg PO DAILY #30 tabs 12/18/24 hydrochlorothiazide 12.5 mg tablet 12.5 mg PO DAILY 90 days #90 tabs 12/23/24 azithromycin 250 mg tablet 250 mg PO DAILY 4 days #4 tabs 12/27/24 fluticasone propionate 50 2 spray intranasal DAILY PRN nasal 12/27/24 mcg/actuation nasal congestion #16 grams spray,suspension (Flonase Allergy Relief) tramadol 50 mg tablet 50 mg PO BID PRN severe pain 01/02/25 (scale score 7-10) 30 days #60 tabs polyethylene glycol 3350 17 17 g PO DAILY PRN constipation 01/20/25 gram/dose oral powder (Miralax) #510 grams sennosides 8.6 mg tablet (Senna 8.6 mg PO BEDTIME PRN constipation 01/20/25 Laxative) #30 tabs [id number] 1 cap PO Q8H PRN migraine headache 01/25/25 50 mg-300 mg-40 mg capsule #10 caps (Fioricet) meclizine 25 mg tablet 25 mg PO TID PRN dizziness #14 tabs 01/25/25 Allergies Allergy/AdvReac Type Severity Reaction Status Date / Time amitriptyline Allergy Intermediate headache Verified 01/25/25 02:07 ibuprofen (From Motrin) Allergy Intermediate ITCHY RASH Verified 01/25/25 02:07 shrimp Allergy Mild Unknown Verified 01/25/25 02:07 seafood Allergy Unknown Verified 01/25/25 02:07 gabapentin AdvReac Intermediate vomiting Verified 01/25/25 02:07 Review of Systems Review of Systems Constitutional : No Weight loss, No Fever, No Chills, No Night Sweats, No Fatigue, No Malaise ENT/Mouth : No Hearing loss, No Ear Pain, No Nasal Congestion, No Sinus Pain, No Hoarseness, No sore throat, No Rhinorrhea, No Swallowing Difficulty Eyes: No Eye Pain, No Swelling, No Redness, No Foreign Body, No Discharge, No Vision Changes Cardiovascular : No Chest Pain, No SOB, No Dyspnea on Exertion, No Orthopnea, No Edema, No Palpitations Respiratory : No Cough, No Sputum, No Wheezing, No Smoke Exposure, No Dyspnea Gastrointestinal : No Nausea, No Vomiting, No Diarrhea, reports improvement of Constipation, No abdominal Pain, No Hematochezia, No Melena Genitourinary : no irregular bleeding, No Dysuria, No Urinary Frequency, No Hematuria, No Urinary Incontinence, No Urgency, No Flank Pain, No Urinary Flow Changes, No Hesitancy Musculoskeletal : No joint pain, No Myalgias, No Joint Swelling Skin : No Skin Lesions, No rash Neuro : No Weakness, No Numbness, No Paresthesias, No Loss of Consciousness, reports that episode of dizziness today with self-resolved,, complaining of migraine headache Psych : No Anxiety/Panic, No Depression, No SI/HI/AH/VH, No Social Issues, Heme/Lymph: No Bruising, No Bleeding,No Lymphadenopathy Endocrine : No Polyuria, No Polydipsia, No Temperature Intolerance [facility] Past Medical History Medical History Moderate recurrent major depression Left sided abdominal pain Generalized pruritus Smoking 1/2 pack a day or less Asthma-COPD overlap syndrome Acute maxillary sinusitis Otitis externa Hospital discharge follow-up Microscopic hematuria Physical exam Goiter Blurry vision Tobacco dependence Has daytime drowsiness Pulmonary nodules Dyspnea Hand pain Skin lesion Leg pain, bilateral Dyslipidemia Epigastric pain Essential hypertension Cervical cancer screening GERD (gastroesophageal reflux disease) HTN (hypertension) Migraine Anxiety Depression Right lower quadrant pain Fibromyalgia Surgical History Previous section History of breast lump/mass excision History of lithotripsy H/O LEEP H/O tubal ligation Family History Family History Father Myocardial infarction Mother Lung cancer Brother Liver cancer Maternal Grandfather Stomach cancer Maternal Grandmother No problems noted. Social History Social History Housing: Apartment Alcohol intake: never Patient Tobacco Use Status: Current someday Tobacco user Tobacco use type: Cigarette Cigarette Packs Per Day: 0.25 Cigarettes Per Day: 3 e-Cigarette/Vaping Use: Never Used Second Hand Smoke Exposure: Yes Use of substances other than those prescribed or required for medical reasons: No Advance Directives: No Advance Directives Information Provided: Yes service: No Current occupational status: disabled Gender identity: Female Cognitive needs: No Hearing needs: No Vision needs: No Physical Exam ED Exam Exam: Appearance: Alert. Oriented X3. No acute distress. Eyes: Pupils equal, round and reactive to light. Patient has photophobia, no nystagmus ENT: Pharynx normal. Neck: Normal inspection. Neck supple. No lymph nodes noted. No crepitus CVS: Normal heart rate and rhythm. Pulses normal. Normal S1 and S2 Respiratory: No respiratory distress. Breath sounds normal. No Wheezing. No rales Abdomen: Soft and nontender. No rigidity. No distention. Skin: Skin warm and dry. Normal skin color. Normal skin turgor. Extremities: No lower extremity edema. No Lacerations. No Rash Neuro: Oriented X 3. No motor deficit. No sensory deficit. Moving all extremities. No slurred speech. CN 2 through 12 grossly intact Psych: calm, cooperative, normal affect Vital Signs: Vital Signs - 24 hr 01/25/25 02:07 Temperature 98.4 F Pulse Rate 82 Respiratory Rate 16 Blood Pressure 110/76 Pulse Oximetry 988 H BMI result Body Mass Index 27.6 Course Course Course Narrative: Patient reports a migraine and vertigo. Patient ran out of Fioricet and meclizine at home Patient receiving IV fluids, IV diphenhydramine, ketorolac, Reglan and p.o. meclizine Patient's vitals stable Medical Decision Making Medical Decision Making [facility] Narrative: After the above-mentioned treatment, patient states that it hurt headache nearly resolved and she is no longer having dizziness/vertigo Patient requesting a prescription for Fioricet which works well for her and meclizine. Patient has normal steady gait, posterior CVA not suspected Differential Diagnosis Differential Diagnoses: The differential diagnosis associated with the presentation includes (Tension headache, migraine headache, vertigo) Admission/Observation Consideration of admission/observation: Escalation of care including admission/observation considered (Given patient's symptoms and severity, observation was considered) Lab Data [facility] Lab Attestation statement: I reviewed the patient's lab results. 01/25/25 02:35 01/25/25 02:35 Labs: Lab Results 01/25/25 Range/Units 02:35 WBC 7.9 (4.8-10.8) X10*3/uL RBC 4.39 (4.20-5.50) X10*6/uL Hgb 11.7 L (12.0-16.0) g/dl Hct 35.5 L (37.0-47.0) % MCV 80.9 (80.0-98.0) fL MCH 26.7 L (27.0-33.0) pg MCHC 33.0 (31.0-35.0) g/dl RDW 15.1 (11.0-16.0) % Plt Count 279 (160-400) X10*3/uL MPV 9.7 (9.4-12.3) fL Immature Gran % (Auto) 0.3 (0.0-0.4) % Neut % (Auto) 73.5 H (45-73) % Lymph % (Auto) 20.6 (20-40) % Loup % (Auto) 5.2 (2-11) % Eos % (Auto) 0.1 (0-4) % Baso % (Auto) 0.3 (0-2) % Lymph # (Auto) 1.6 (1.2-4.9) X10*3/uL Loup # (Auto) 0.4 (0.1-1.2) X10*3/uL Eos # (Auto) 0.0 (0.0-0.4) X10*3/uL Baso # (Auto) 0.0 (0.0-0.2) X10*3/uL Abs Immat Gran (auto) 0.02 (0.00-0.03) X10*3/uL Absolute Neuts (auto) 5.8 (2.0-8.3) x10*3/uL Absolute Nucleated RBC 0.000 (0.0-0.012) X10*3/uL Nucleated RBC % (auto) 0.0 (0.0-0.2) /100WBC Sodium 142 (135-145) mmol/L Potassium 4.1 (3.3-5.1) mmol/L Chloride 108 (96-108) mmol/L Carbon Dioxide 25 (22-29) mmol/L Anion Gap 13 (12-20) BUN 18 H (9-16) mg/dL Creatinine 0.83 (0.5-1.4) mg/dL Estim Creat Clear Calc 65.9 Estimated GFR > 60 Random Glucose 92 (60-115) mg/dL Calcium 9.3 (8.4-10.2) mg/dL Total Bilirubin 0.3 (0.0-1.0) mg/dL AST 22 (5-31) U/L ALT 18 (0-31) U/L Alkaline Phosphatase 111 (39-117) U/L Total Protein 7.1 (6.5-8.0) g/dL Albumin 4.2 (3.5-5.0) g/dL Lipase 25 (8-78) U/L Medications Administered Discontinued Medications Generic Name Dose Route Start Last Admin Trade Name Freq PRN Reason Stop Dose Admin Diphenhydramine HCl 25 mg 01/25/25 03:28 01/25/25 03:46 Diphenhydramine Hcl 50 Mg/Ml Vial IVPUSH 01/25/25 03:29 25 mg ONCE ONE Administration Sodium Chloride 1,000 mls @ 999 mls/hr 01/25/25 03:28 01/25/25 03:46 Ns IVCONT 01/25/25 04:28 999 mls/hr .Q1H1M ONE Administration Ketorolac Tromethamine 30 mg 01/25/25 03:28 01/25/25 03:46 Ketorolac Tromethamine 30 Mg/Ml Vial IVPUSH 01/25/25 03:29 30 mg ONCE ONE Administration Meclizine HCl 25 mg 01/25/25 03:28 01/25/25 03:54 Meclizine Hcl 25 Mg Tablet PO 01/25/25 03:29 25 mg ONCE ONE Administration Metoclopramide HCl 10 mg 01/25/25 03:28 01/25/25 03:47 Metoclopramide Hcl 10 Mg/2 Ml Vial IVPUSH 01/25/25 03:29 10 mg ONCE ONE Administration Critical Care Time Critical Care Time Critical Care Time: Yes Total Critical Care Time: 40 Attestation: I have personally provided critical care time. Time includes review of lab data, radiology results, discussion with consultants, and monitoring for potential decompensation. Intervention performed as documented. Discharge Plan Discharge Clinical Impression: Headache, migraine, Vertigo Patient Disposition: Home, Self-Care Instructions: Migraine Headache (ED), Dizziness (ED) Additional Instructions: Please follow-up with your primary care physician tomorrow. If you have any worsening or new symptoms, please return to the emergency room or call 911 Prescriptions: New meclizine 25 mg tablet 25 mg PO TID PRN (Reason: dizziness) Qty: 14 0RF [id number] [Fioricet] 50-300-40 mg capsule 1 cap PO Q8H PRN (Reason: migraine headache) Qty: 10 0RF No Action (DME) cane Device See Rx Instructions .Route Qty: 1 0RF Rx Instructions: As directed (DME) walker Misc See Rx Instructions .Route Qty: 1 0RF Rx Instructions: To be use lifetime (DME) underpads [Bed Underpads] Pad See Rx Instructions .Route Qty: 100 0RF Rx Instructions: As directed naloxone 10 mg/0.4 mL auto-injector 2 mg subcut Q3M 30 Days Qty: 4 0RF Rx Instructions: until desired response riboflavin (vitamin B2) 400 mg tablet 400 mg PO DAILY 30 Days Qty: 30 6RF cholecalciferol (vitamin D3) 50 mcg (2,000 unit) tablet 50 mcg PO DAILY 90 Days Qty: 90 1RF Nurtec ODT 75 mg tablet,disintegrating 75 mg PO ONCE MDD 1 tab PRN (Reason: migraine headache) 30 Days Qty: 15 6RF Rx Instructions: Prior authorization approved through 04/22/2025 fenofibrate 54 mg tablet 54 mg PO DAILY 90 Days Qty: 90 1RF (DME) blood pressure monitor [Blood Pressure Kit] Kit See Rx Instructions .ROUTE .MEDSUPPLY Qty: 1 0RF Rx Instructions: As directed hydroxyzine HCl 50 mg tablet 50 mg PO Q8H PRN (Reason: nausea and vomiting) Qty: 90 1RF Emgality Pen 120 mg/mL pen injector 120 mg subcut Q30D 30 Days Qty: 1 6RF Rx Instructions: Maintenance dose of 120 mg subcu q.month. [place] APPROVED 12/04/24-06/05/25 hydrochlorothiazide 12.5 mg tablet 12.5 mg PO DAILY 90 Days Qty: 90 3RF tramadol 50 mg tablet 50 mg PO BID PRN (Reason: severe pain (scale score 7-10)) 30 Days Qty: 60 0RF acetaminophen 500 mg tablet 1,000 mg PO TID PRN (Reason: pain) Qty: 20 0RF lidocaine [Lidoderm] 5 % adhesive patch,medicated 1 patch topical DAILY Qty: 30 0RF Rx Instructions: leave on most painful area for up to 12 hrs fluticasone propionate [Flonase Allergy Relief] 50 mcg/actuation spray,suspension 1 spray intranasal BID PRN (Reason: nasal congestion) Qty: 16 0RF Rx Instructions: administer into each nostril polyethylene glycol 3350 [Miralax] 17 gram/dose powder 17 g PO DAILY PRN (Reason: constipation) Qty: 510 0RF sennosides [Senna Laxative] 8.6 mg tablet 8.6 mg PO BEDTIME PRN (Reason: constipation) Qty: 30 0RF albuterol sulfate 90 mcg/actuation HFA aerosol inhaler 2 puff inhalation Q4-6H PRN (Reason: shortness of breath or wheezing) Qty: 6.7 0RF meclizine 25 mg tablet 25 mg PO TID Qty: 20 0RF azithromycin 250 mg tablet 250 mg PO DAILY 4 Days Qty: 4 0RF Rx Instructions: start on day 2 of therapy fluticasone propionate [Flonase Allergy Relief] 50 mcg/actuation spray,suspension 2 spray intranasal DAILY PRN (Reason: nasal congestion) Qty: 16 0RF Rx Instructions: administer into each nostril lidocaine HCl [Lidocaine Viscous] 2 % solution 1 appl topical QID PRN (Reason: head pain) 30 Days Qty: 100 1RF diphenhydramine HCl 25 mg capsule 50 mg PO Q6H PRN (Reason: allergic reaction) Qty: 20 0RF epinephrine [EpiPen 2-Pantera] 0.3 mg/0.3 mL auto-injector 0.3 mg IM Q10M PRN (Reason: anaphylaxis) Qty: 2 0RF Rx Instructions: for 3 doses Eucerin Itch Relief 0.1 % lotion 1 ea topical BID 14 Days Qty: 250 0RF hydrocortisone 2.5 % ointment 1 appl topical BID-TID PRN (Reason: itching) Qty: 454 1RF fexofenadine [Gemini Allergy] 180 mg tablet 180 mg PO DAILY Qty: 90 1RF magnesium oxide 400 mg (241.3 mg magnesium) tablet 400 mg PO BEDTIME 30 Days Qty: 30 6RF Rx Instructions: may hold for loose stools montelukast [Singulair] 10 mg tablet 10 mg PO BEDTIME 30 Days Qty: 30 11RF varenicline tartrate [Chantix Starting Month Box] 0.5 mg (11)- 1 mg (42) tablets,dose pack See Rx Instructions PO PER PKG DIR Qty: 42 0RF Rx Instructions: PO PER PKG DIR (DME) nebulizers [AeroEclipse II Nebulizer] Misc See Rx Instructions .Route Qty: 1 0RF Rx Instructions: As directed Pataday Once Daily Relief 0.7 % drops 1 drp ophthalmic (eye) Q24H PRN (Reason: itching) Qty: 5 0RF clonazepam 0.5 mg tablet 0.5 mg PO BID PRN (Reason: anxiety) 30 Days Qty: 60 1RF zolpidem [Ambien] 5 mg tablet 5 mg PO BEDTIME Qty: 30 1RF paroxetine HCl 10 mg tablet 10 mg PO DAILY Qty: 30 2RF Print Language: Georgian
[2025-01-25 05:01] VITALS: BP 125/67; PULSE 70; RESP 18; TEMP 36.3; O2SAT 99
[2025-01-25 05:11] VITALS: BP 125/67; PULSE 70; RESP 18; TEMP 36.3; O2SAT 99
== END 2025-01-25 05:07 | disposition home or self-care (01) ==
PROVIDERS: Emergency Provider Emergency Medicine
DX: G43.909 Migraine, unspecified, not intractable, without status migrainosus (principal); R42 Dizziness and giddiness; R07.89 Other chest pain; R11.2 Nausea with vomiting, unspecified; F17.210 Nicotine dependence, cigarettes, uncomplicated; Z79.899 Other long term (current) drug therapy
CPT/HCPCS: 36415; 80053; 83690; 85025; 93005; 96361; 96374; 96375; 99284; 99285; J1200; J1885; J2765

== ENCOUNTER → 2025-01-25 02:57 | Outpatient (BNV) | payer OTHER, SELFPAY | PROVIDERS: Emergency Provider Emergency Medicine; Visit Provider Internal Medicine | DX: R07.9 Chest pain, unspecified (principal) | CPT/HCPCS: 93010 ==

== ENCOUNTER 2025-01-28 13:51 | Outpatient (AMB) | payer OTHER, SELFPAY ==
--- NOTE | 2025-01-28 13:55 | MHC.OFFVIS ---
Vital Signs 01/28/25 13:57 01/28/25 14:39 Height 5 ft 1 in Weight 145 lb 153 lb 6 oz BMI 27.4 BP 113/69 Blood Pressure Location Lt brachial Position Sitting Pulse 83 Pulse Oximetry (%) 96 Oxygen Delivery Method Room Air Comment wt obtained on in office scale Intake Visit Reasons: Abdominal pain Intake Note: Patient new consult for 1st pre Colonoscopy screening. Patient cc: Nauseas, abdominal pain with bloating, GERD, swallowing difficulties on and off/chocking sensation with solid food, constipation with hard stool/not been able to do any BM x 4 days after patient went to the [facility] ED last week due her constipation/2 weeks with out any BM, she had an enemma. Sports Complex Attendant Required: Yes Sports Complex Attendant Name: Usama [id number] Accompanied by: Self / Same As Patient Allergies amitriptyline Allergy (Intermediate, Verified 01/28/25 13:55) headache ibuprofen (From Motrin) Allergy (Intermediate, Verified 01/28/25 13:55) ITCHY RASH shrimp Allergy (Mild, Verified 01/28/25 13:55) Unknown seafood Allergy (Verified 01/28/25 13:55) Unknown gabapentin Adverse Reaction (Intermediate, Verified 01/28/25 13:55) vomiting Medication List - Last Reconciled 01/28/25 by Milena Hankins CNP acetaminophen 1,000 mg (2 x 500 mg) PO TID PRN albuterol sulfate 90 mcg/actuation 2 puffs inhalation Q4-6H PRN blood pressure monitor (Blood Pressure Kit) As directed yevifdmutq-zirylubkcyhov-laft 50-300-40 mg (Fioricet) 1 cap PO Q8H PRN cane As directed cholecalciferol (vitamin D3) 50 mcg PO DAILY 90 days clonazepam 0.5 mg PO BID PRN 30 days diphenhydramine HCl 50 mg (2 x 25 mg) PO Q6H PRN epinephrine (EpiPen 2-Pantera) 0.3 mg (0.3 mL) IM Q10M PRN fenofibrate 54 mg PO DAILY 90 days fexofenadine (Gemini Allergy) 180 mg PO DAILY fluticasone propionate 50 mcg/actuation (Flonase Allergy Relief) 2 sprays intranasal DAILY PRN galcanezumab-gnlm (Emgality Pen) 120 mg subcut Q30D 30 days hydrochlorothiazide 12.5 mg PO DAILY 90 days hydrocortisone 2.5% 1 appl topical BID-TID PRN hydroxyzine HCl 50 mg PO Q8H PRN magnesium oxide 400 mg PO BEDTIME 30 days meclizine 25 mg PO TID menthol 0.1% (Eucerin Itch Relief) 1 ea topical BID 14 days naloxone 2 mg (0.08 mL) subcut Q3M 30 days nebulizers (AeroEclipse II Nebulizer) As directed olopatadine 0.7% (Pataday Once Daily Relief) 1 drp ophthalmic (eye) Q24H PRN paroxetine HCl 10 mg PO DAILY polyethylene glycol 3350 (Miralax) 17 grams PO DAILY PRN riboflavin (vitamin B2) 400 mg PO DAILY 30 days rimegepant (Nurtec ODT) 75 mg PO ONCE PRN 30 days MDD 1 tab sennosides (Senna Laxative) 8.6 mg PO BEDTIME PRN tramadol 50 mg PO BID PRN 30 days underpads (Bed Underpads) As directed varenicline tartrate (Chantix Starting Month Box) PO PER PKG DIR walker To be use lifetime zolpidem (Ambien) 5 mg PO BEDTIME HPI HPI Abdominal pain: Details: Patient is a 54-year-old female with PMH of nicotine dependence, asthma COPD overlap, depression, fibromyalgia, hypertension and dyslipidemia. Referred by PCP for further evaluation of abdominal pain. Patient presents with a one-month history of constipation accompanied by abdominal pain and bloating. Prior to the onset, stools were reported as type 6 on [place] Stool Chart, occurring every two days. Over the last three to four weeks, stools transitioned to type 1, consistent with severe constipation. Abdominal bloating is felt in the upper quadrants, and associated pain radiates to the right-sided back. Patient reports periodic nausea and vomiting, with the most recent episode occurring during an ER visit on January 23, 2025. Past ER visits included unsuccessful treatment with laxatives and stool softeners like Miralax, magnesium citrate and Colace, with temporary improvement following an enema administered five days ago. Patient denies blood in stools but endorses a history of occasional heartburn, relieved by using Pepto Bismol. Notably, patient reports weight loss over the last month, attributed to dietary changes. Concerns about ongoing pain and constipation's connection to dietary fiber are expressed. Back pain management includes infrequent use of tramadol, which patient acknowledges might be contributing to constipation. Relevant medical history includes a previous trial with a headache treatment (Emgality injections), discontinued due to dissatisfaction and residual abdominal pain near the injection site. A family history of stomach cancer (maternal grandfather) is noted, eliciting significant anxiety. Patient denies: fever/chills, appetite changes, unintentional wt loss or melena/hematochezia. Social hx: -Previously high intake of green plantains (fried or boiled); recent reduction of unhealthy foods, including soda. Increased water intake. -denies ETOH use -denies recreational drug use - some of day cig smoker [facility] Medical History Moderate recurrent major depression Left sided abdominal pain Generalized pruritus Smoking 1/2 pack a day or less Asthma-COPD overlap syndrome Acute maxillary sinusitis Otitis externa Hospital discharge follow-up Microscopic hematuria Physical exam Goiter Blurry vision Tobacco dependence Has daytime drowsiness Pulmonary nodules Dyspnea Hand pain Skin lesion Leg pain, bilateral Dyslipidemia Epigastric pain Essential hypertension Cervical cancer screening GERD (gastroesophageal reflux disease) HTN (hypertension) Migraine Anxiety Depression Right lower quadrant pain Fibromyalgia Surgical History Previous section History of breast lump/mass excision History of lithotripsy H/O LEEP H/O tubal ligation Family History Father Myocardial infarction Mother Lung cancer Brother Liver cancer Maternal Grandfather Stomach cancer Maternal Grandmother No problems noted. Social History Housing: Apartment Alcohol intake: never Patient Tobacco Use Status: Current someday Tobacco user Tobacco use type: Cigarette Cigarette Packs Per Day: 0.25 Cigarettes Per Day: 3 e-Cigarette/Vaping Use: Never Used Second Hand Smoke Exposure: Yes service: No Current occupational status: disabled Gender identity: Female Cognitive needs: No Hearing needs: No Vision needs: No Female Reproductive History Menstrual Age of Menarche: 9 Review of Systems Const Reports as per HPI ENT Reports as per HPI Card Reports as per HPI Resp Reports as per HPI GI Reports as per HPI Reports as per HPI Physical Exam Vital Signs: Last Vital Signs Pulse 83 01/28/25 13:57 BP 113/69 01/28/25 13:57 Pulse Ox 96 01/28/25 13:57 Oxygen Delivery Method Room Air 01/28/25 13:57 BMI result Body Mass Index 27.4 Const General: healthy appearing, no acute distress and well developed Nutritional Appearance: average body habitus Orientation/consciousness: patient oriented x3 HEENT Head: Yes normal to inspection, Yes normocephalic and Yes atraumatic Face and sinus: Yes normal facial exam Eyes General: appearance normal, both eyes and all related structures Neck Neck: Yes normal visual inspection Resp Effort & Inspection: normal respiratory effort, able to speak in complete sentences, no tracheal deviation and symmetric chest movement Auscultation: clear to auscultation bilaterally Cardio Jugular venous distension: no JVD Rate: regular rate Rhythm: regular rhythm Heart sounds: S1 normal heart sound present, S2 normal heart sound present, no gallops and no murmurs GI Inspection: Yes normal to inspection, No distended, Yes obesity and Yes striae Palpation (GI): Soft to palpation, not firm, nontender and No hepatosplenomegaly present Auscultation: normal bowel sounds Neuro General: patient oriented x3 Gait exam (Neuro): Normal gait present Psych Appearance: grossly normal Mental Status: mental status grossly normal Speech and movement: Normal speech and movement present Affect: normal affect Attitude: cooperative Thought process: Normal thought process present Thought content: Normal thought content present Insight: Good insight present (Psych) Judgement: Good judgement present (Psych) Results Reviewed Results Reviewed: Date of Service: 01/20/25 Procedure(s): XR KUB Accession Number(s): [id number] cc: Guera Dasilva; Neyda Foster MD~ EXAMINATION: XR ABDOMEN KUB CLINICAL INDICATION: constipation COMPARISON: None available. TECHNIQUE: AP view of the abdomen. FINDINGS: Bowel gas pattern is normal/nonspecific. There is no focally dilated loop of bowel. There is moderate fecal residue seen throughout the colon and rectum in keeping with constipation. There is no organomegaly. There are no abnormal soft tissue calcifications. The lung bases are clear. There is no suspicious bone lesion. XR/XR KUB IMPRESSION: Moderate constipation. No bowel obstruction. Assessment & Plan Assessment & Plan (1) Constipation: Code(s): K59.00 - Constipation, unspecified Category: Medical Qualifiers: Constipation type: unspecified constipation type Qualified Code(s): K59.00 - Constipation, unspecified Plan: History of type 1 stools, bloating, and ineffective laxative/stool softener use over the last month. Differential Diagnoses: Functional constipation, irritable bowel syndrome (IBS), gastrointestinal motility disorder, malignancy due to family history, medication-related side effects (tramadol). Additional Testing: Consider colonoscopy and possible upper endoscopy to exclude structural or malignant causes given family history and prolongation of symptoms. We will review at next visit. Medication Management: -Start Lactulose solution (15?30 mL daily). -Initiate combination senna laxative and docusate stool softener tablets (take 2 tablets at bedtime). -Discontinue previous regimen (Miralax, Colace, OTC laxatives). Lifestyle Recommendations: -Provide fiber-rich diet handout to improve stool consistency. -Continue increased water intake. Follow-Up: Reassessment in two months for symptom progress or sooner if symptoms worsen. (2) GERD (gastroesophageal reflux disease): Code(s): K21.9 - Gastro-esophageal reflux disease without esophagitis Category: Medical Qualifiers: Esophagitis presence: esophagitis presence not specified Qualified Code(s): K21.9 - Gastro-esophageal reflux disease without esophagitis Plan: Reports of heartburn and difficulty swallowing solids, albeit intermittent. Additional Testing: Barium swallow study to further investigate dysphagia. Medication Management: Replace Pepto Bismol with Famotidine 20 mg PRN Lifestyle Recommendations: Evaluate impact of dietary triggers and advise against overeating. Follow-Up: Monitor for worsening esophageal symptoms, including regurgitation or persistent difficulty swallowing. Plan Follow-up in 2 months or sooner as needed Time: I spent a total of 50 minutes on the date of encounter which includes: Preparing to see the patient (reviewed previous documentation, test results and medical history) Performing a medically appropriate exam and/or evaluation Ordering medications, tests, and procedures Documenting clinical information in the health record Orders: Orders FL barium swallow Today K21.9 - Gastro-esophageal reflux disease without esophagitis, R13.10 - Dysphagia, unspecified Medications: New famotidine Take one tablet as needed for acid reflux 20 mg PO DAILY PRN 90 tabs 0RF GERD lactulose Take 15-30mL daily for constipation. 3,785 mL 0RF constipation sennosides-docusate sodium 8.6-50 mg (Senna Plus) Take two tablets at bedtime 2 tab-caps (2 x 8.6-50 mg) PO BEDTIME 180 caps 1RF Discontinued polyethylene glycol 3350 (Miralax) Discontinued Reason: Doctor's Order 17 grams PO DAILY PRN 510 grams 0RF constipation sennosides (Senna Laxative) Discontinued Reason: Duplicate 8.6 mg PO BEDTIME PRN 30 tabs 0RF constipation Coding Level of Care Code New Pt New Pt Level 5 (12167) Patient Type New Diagnoses Constipation, unspecified constipation type K59.00 Constipation type: unspecified constipation type Gastroesophageal reflux disease, unspecified whether esophagitis present K21.9 Esophagitis presence: esophagitis presence not specified
[2025-01-28 13:57] VITALS: BP 113/69; PULSE 83; O2SAT 96; BMI 27.4
== END 2025-01-28 15:05 | disposition home or self-care (01) ==
LOC: HO.HGI 13:52
PROVIDERS: PCP Internal Medicine; Visit Provider Nurse Practitioner Family
DX: K59.00 Constipation, unspecified (principal); K21.9 Gastro-esophageal reflux disease without esophagitis
CPT/HCPCS: 99205

== ENCOUNTER → 2025-01-28 13:51 | Outpatient (BNVA) | payer OTHER, SELFPAY | PROVIDERS: PCP Internal Medicine; Visit Provider Nurse Practitioner Family | DX: Z01.818 Encounter for other preprocedural examination (principal); K59.00 Constipation, unspecified; K21.9 Gastro-esophageal reflux disease without esophagitis; R13.10 Dysphagia, unspecified | CPT/HCPCS: 99202 ==

== ENCOUNTER 2025-01-29 00:47 | Emergency (ER) | payer OTHER, SELFPAY ==
[2025-01-29 00:54] VITALS: BP 135/79; PULSE 87; RESP 16; TEMP 36.8; O2SAT 99; BMI 27.8
[2025-01-29 01:12] LABS: MANUAL DIFF FLAG NO
[2025-01-29 01:13] LABS: Hematocrit 38.0 % (37.0-47.0); Hemoglobin 12.2 g/dl (12.0-16.0); Imm Gran Abs Auto 0.04 X10*3/uL (0.00-0.03); Imm Gran Pct Auto 0.4 % (0.0-0.4); Lymphocytes Absolute Auto 3.0 X10*3/uL (1.2-4.9); Mean Corpuscular HGB Conc 32.1 g/dl (31.0-35.0); Mean Corpuscular Hemoglobin 26.3 pg (27.0-33.0); Mean Corpuscular Volume 82.1 fL (80.0-98.0); NRBC Abs Auto 0.000 X10*3/uL (0.0-0.012); NRBC Pct Auto 0.0 /100WBC (0.0-0.2); Platelet Count 301 X10*3/uL (160-400); Red Blood Count 4.63 X10*6/uL (4.20-5.50); White Blood Count 9.6 X10*3/uL (4.8-10.8)
[2025-01-29 01:27] LABS: Alanine Aminotransferase 20 U/L (0-31); Albumin Level 4.4 g/dL (3.5-5.0); Alkaline Phosphatase 115 U/L (39-117); Anion Gap 16 (12-20); Aspartate Amino Transferase 19 U/L (5-31); Blood Urea Nitrogen 24 mg/dL (9-16); Calcium 9.5 mg/dL (8.4-10.2); Carbon Dioxide 26 mmol/L (22-29); Chloride 106 mmol/L (96-108); Creatinine Clr Calc Pharmacy 58.3; Estimated Glomerular Filt Rate > 60; Lipase 34 U/L (8-78); Potassium 3.2 mmol/L (3.3-5.1); Sodium 145 mmol/L (135-145); Total Protein 7.5 g/dL (6.5-8.0)
== END 2025-01-29 03:45 | disposition left against medical advice (07) ==
PROVIDERS: Emergency Provider Emergency Medicine; PCP Internal Medicine
DX: K59.00 Constipation, unspecified (principal); R51.9 Headache, unspecified; Z53.21 Procedure and treatment not carried out due to patient leaving prior to being seen by health care provider
CPT/HCPCS: 36415; 80053; 83690; 85025; 99281

== ENCOUNTER 2025-01-29 13:48 | Emergency (ER) | payer OTHER, SELFPAY ==
--- NOTE | ~2025-01-29 | XR_ITS ---
EXAMINATION: XR ABDOMEN 1 VIEW (KUB) HISTORY: abd pain, constipation COMPARISON: Comparison is made with the prior examination dated 01/20/2025. FINDINGS: Two supine views of the abdomen are submitted. The bowel gas pattern is unremarkable, without evidence of mechanical obstruction. There is a moderate to large amount of stool throughout the colon. A calcification in the right upper quadrant is seen to represent a calcified granuloma in the right lower lobe of the lung on chest CT. There is a phlebolith in the right hemipelvis. There are no abnormal soft tissue masses. The bones are intact. XR/XR KUB IMPRESSION: Moderate to large amount of stool throughout the colon. Electronically signed by: Sylvester Cavanaugh MD 01/29/2025 02:54 PM EDT
[2025-01-29 14:28] VITALS: BP 132/83; PULSE 83; RESP 20; TEMP 36.8; O2SAT 100; BMI 28.9
--- NOTE | 2025-01-29 14:30 | ED.GENADULT ---
HPI - General Adult General Chief complaint: Upper Respiratory Symptoms Stated complaint: Back pain, headache Related Data Previous Rx's ?Medication ?Instructions ?Recorded cane #1 ea 09/06/22 acetaminophen 500 mg tablet 1,000 mg (2 x 500 mg) PO TID PRN 10/07/22 pain #20 tabs underpads (Bed Underpads) #100 ea 03/28/23 walker #1 ea 03/28/23 naloxone 10 mg/0.4 mL 2 mg (0.08 mL) subcut Q3M 30 days 01/09/24 injection,auto-injector #4 mL nebulizers (AeroEclipse II #1 ea 04/03/24 Nebulizer) riboflavin (vitamin B2) 400 mg 400 mg PO DAILY 30 days #30 tabs 04/16/24 tablet varenicline tartrate 0.5 mg (11)-1 See Rx Instructions PO PER PKG DIR 04/22/24 mg (42) tablets in a dose pack #42 ea (Chantix Starting Month Box) cholecalciferol (vitamin D3) 50 50 mcg PO DAILY 90 days #90 tabs 04/24/24 mcg (2,000 unit) tablet olopatadine 0.7 % eye drops 1 drp ophthalmic (eye) Q24H PRN 08/11/24 (Pataday Once Daily Relief) itching #5 mL albuterol sulfate 90 mcg/actuation 2 puff inhalation Q4-6H PRN 10/03/24 aerosol inhaler shortness of breath or wheezing #6.7 grams diphenhydramine HCl 25 mg capsule 50 mg (2 x 25 mg) PO Q6H PRN 10/06/24 allergic reaction #20 caps epinephrine 0.3 mg/0.3 mL 0.3 mg (0.3 mL) IM Q10M PRN 10/06/24 injection, auto-injector (EpiPen anaphylaxis #2 ea 2-Pantera) menthol 0.1 % lotion (Eucerin Itch 1 ea topical BID 14 days #250 mL 10/06/24 Relief) fexofenadine 180 mg tablet 180 mg PO DAILY #90 tabs 10/09/24 (Gemini Allergy) hydrocortisone 2.5 % topical 1 appl topical BID-TID PRN itching 10/09/24 ointment #454 grams zolpidem 5 mg tablet (Ambien) 5 mg PO BEDTIME #30 tabs 10/16/24 rimegepant 75 mg disintegrating 75 mg PO ONCE PRN migraine 10/24/24 tablet (Nurtec ODT) headache 30 days #15 tabs magnesium oxide 400 mg (241.3 mg 400 mg PO BEDTIME 30 days #30 tabs 10/28/24 magnesium) tablet fenofibrate 54 mg tablet 54 mg PO DAILY 90 days #90 tabs 11/06/24 blood pressure monitor (Blood #1 ea 11/21/24 Pressure Kit) hydroxyzine HCl 50 mg tablet 50 mg PO Q8H PRN nausea and 12/03/24 vomiting #90 tabs meclizine 25 mg tablet 25 mg PO TID #20 tabs 12/03/24 galcanezumab-gnlm 120 mg/mL 120 mg subcut Q30D 30 days #1 mL 12/05/24 subcutaneous pen injector (Emgality Pen) paroxetine HCl 10 mg tablet 10 mg PO DAILY #30 tabs 12/18/24 hydrochlorothiazide 12.5 mg tablet 12.5 mg PO DAILY 90 days #90 tabs 12/23/24 fluticasone propionate 50 2 spray intranasal DAILY PRN nasal 12/27/24 mcg/actuation nasal congestion #16 grams spray,suspension (Flonase Allergy Relief) tramadol 50 mg tablet 50 mg PO BID PRN severe pain 01/02/25 (scale score 7-10) 30 days #60 tabs spzpdnaioy-elyidwvtwppjm-exdbrbij 1 cap PO Q8H PRN migraine headache 01/25/25 50 mg-300 mg-40 mg capsule #10 caps (Fioricet) famotidine 20 mg tablet 20 mg PO DAILY PRN GERD #90 tabs 01/28/25 lactulose 10 gram/15 mL oral 10 g (15 mL) PO .COMPLEX 01/28/25 solution constipation #3,785 mL sennosides 8.6 mg-docusate sodium 2 tab-cap (2 x 8.6-50 mg) PO 01/28/25 50 mg capsule (Senna Plus) BEDTIME #180 caps clonazepam 0.5 mg tablet 0.5 mg PO BID PRN anxiety 30 days 01/29/25 #60 tabs Allergies Allergy/AdvReac Type Severity Reaction Status Date / Time amitriptyline Allergy Intermediate headache Verified 01/29/25 14:31 ibuprofen (From Motrin) Allergy Intermediate ITCHY RASH Verified 01/29/25 14:31 shrimp Allergy Mild Unknown Verified 01/29/25 14:31 seafood Allergy Unknown Verified 01/29/25 14:31 gabapentin AdvReac Intermediate vomiting Verified 01/29/25 14:31 [facility] Past Medical History Medical History (Updated 01/30/25 @ 15:59 by MARLENA Willis) Dysphagia Moderate recurrent major depression Left sided abdominal pain Generalized pruritus Smoking 1/2 pack a day or less Asthma-COPD overlap syndrome Acute maxillary sinusitis Otitis externa Hospital discharge follow-up Microscopic hematuria Physical exam Goiter Blurry vision Tobacco dependence Has daytime drowsiness Pulmonary nodules Dyspnea Hand pain Skin lesion Leg pain, bilateral Dyslipidemia Epigastric pain Essential hypertension Cervical cancer screening GERD (gastroesophageal reflux disease) HTN (hypertension) Migraine Anxiety Depression Right lower quadrant pain Fibromyalgia Surgical History Previous section History of breast lump/mass excision History of lithotripsy H/O LEEP H/O tubal ligation Family History Family History Father Myocardial infarction Mother Lung cancer Brother Liver cancer Maternal Grandfather Stomach cancer Maternal Grandmother No problems noted. Social History Social History Housing: Apartment Alcohol intake: never Patient Tobacco Use Status: Current someday Tobacco user Tobacco use type: Cigarette Cigarette Packs Per Day: 0.25 Cigarettes Per Day: 3 e-Cigarette/Vaping Use: Never Used Second Hand Smoke Exposure: Yes Advance Directives: No Advance Directives Information Provided: Yes Do you have a plan to hurt others: No Plan service: No Current occupational status: disabled Gender identity: Female Cognitive needs: No Hearing needs: No Vision needs: No Physical Exam ED Vital Signs: Vital Signs - 24 hr 01/29/25 20:31 Pulse Rate 69 Respiratory Rate 16 Blood Pressure 133/78 Pulse Oximetry 97 Oxygen Delivery Method Room Air BMI result Body Mass Index 28.9 Course Course Course Narrative: This is an RME: Additional HPI, ROS, PE not included below will be deferred to primary provider. RME assessment and note performed by: Rosa M Roberts PA-C This is a 29-hjpi-utu-female, with a hx of HTN, HLD, who presents to the ER with complaints of headache, body aches, constipation, sore throat and ear pain. Endorsing nausea and vomiting. Was seen here 4 days ago with similar symptoms. Recent exposure to COVID. States that she has not had a bowel movement in several days. Plan:Labs, viral swabs, kub Reevaluation(s) Reevaluation #1: Patient left without completing treatment. Medical Decision Making Lab Data Labs: Lab Results 01/29/25 Range/Units 15:45 Influenza Type A (PCR) NEGATIVE (Negative) Influenza Type B (PCR) NEGATIVE (Negative) RSV RNA Qual (PCR) NEGATIVE (Negative) SARS-CoV-2 RNA (RT-PCR) NEGATIVE (Negative) Discharge Plan Discharge Clinical Impression: Diagnosis unknown Patient Disposition: Left W/O Completing Treatment Prescriptions: No Action (DME) cane Device See Rx Instructions .Route Qty: 1 0RF Rx Instructions: As directed (DME) walker Misc See Rx Instructions .Route Qty: 1 0RF Rx Instructions: To be use lifetime (DME) underpads [Bed Underpads] Pad See Rx Instructions .Route Qty: 100 0RF Rx Instructions: As directed naloxone 10 mg/0.4 mL auto-injector 2 mg subcut Q3M 30 Days Qty: 4 0RF Rx Instructions: until desired response riboflavin (vitamin B2) 400 mg tablet 400 mg PO DAILY 30 Days Qty: 30 6RF cholecalciferol (vitamin D3) 50 mcg (2,000 unit) tablet 50 mcg PO DAILY 90 Days Qty: 90 1RF Nurtec ODT 75 mg tablet,disintegrating 75 mg PO ONCE MDD 1 tab PRN (Reason: migraine headache) 30 Days Qty: 15 6RF Rx Instructions: Prior authorization approved through 04/22/2025 fenofibrate 54 mg tablet 54 mg PO DAILY 90 Days Qty: 90 1RF (DME) blood pressure monitor [Blood Pressure Kit] Kit See Rx Instructions .ROUTE .MEDSUPPLY Qty: 1 0RF Rx Instructions: As directed hydroxyzine HCl 50 mg tablet 50 mg PO Q8H PRN (Reason: nausea and vomiting) Qty: 90 1RF Emgality Pen 120 mg/mL pen injector 120 mg subcut Q30D 30 Days Qty: 1 6RF Rx Instructions: Maintenance dose of 120 mg subcu q.month. [place] APPROVED 12/04/24-06/05/25 hydrochlorothiazide 12.5 mg tablet 12.5 mg PO DAILY 90 Days Qty: 90 3RF tramadol 50 mg tablet 50 mg PO BID PRN (Reason: severe pain (scale score 7-10)) 30 Days Qty: 60 0RF clonazepam 0.5 mg tablet 0.5 mg PO BID PRN (Reason: anxiety) 30 Days Qty: 60 1RF acetaminophen 500 mg tablet 1,000 mg PO TID PRN (Reason: pain) Qty: 20 0RF cjkhxylgan-lqtnvzenghnnq-chmo [Fioricet] 50-300-40 mg capsule 1 cap PO Q8H PRN (Reason: migraine headache) Qty: 10 0RF albuterol sulfate 90 mcg/actuation HFA aerosol inhaler 2 puff inhalation Q4-6H PRN (Reason: shortness of breath or wheezing) Qty: 6.7 0RF meclizine 25 mg tablet 25 mg PO TID Qty: 20 0RF fluticasone propionate [Flonase Allergy Relief] 50 mcg/actuation spray,suspension 2 spray intranasal DAILY PRN (Reason: nasal congestion) Qty: 16 0RF Rx Instructions: administer into each nostril diphenhydramine HCl 25 mg capsule 50 mg PO Q6H PRN (Reason: allergic reaction) Qty: 20 0RF epinephrine [EpiPen 2-Pantera] 0.3 mg/0.3 mL auto-injector 0.3 mg IM Q10M PRN (Reason: anaphylaxis) Qty: 2 0RF Rx Instructions: for 3 doses Eucerin Itch Relief 0.1 % lotion 1 ea topical BID 14 Days Qty: 250 0RF hydrocortisone 2.5 % ointment 1 appl topical BID-TID PRN (Reason: itching) Qty: 454 1RF fexofenadine [Gemini Allergy] 180 mg tablet 180 mg PO DAILY Qty: 90 1RF magnesium oxide 400 mg (241.3 mg magnesium) tablet 400 mg PO BEDTIME 30 Days Qty: 30 6RF Rx Instructions: may hold for loose stools varenicline tartrate [Chantix Starting Month Box] 0.5 mg (11)- 1 mg (42) tablets,dose pack See Rx Instructions PO PER PKG DIR Qty: 42 0RF Rx Instructions: PO PER PKG DIR (DME) nebulizers [AeroEclipse II Nebulizer] Misc See Rx Instructions .Route Qty: 1 0RF Rx Instructions: As directed Pataday Once Daily Relief 0.7 % drops 1 drp ophthalmic (eye) Q24H PRN (Reason: itching) Qty: 5 0RF zolpidem [Ambien] 5 mg tablet 5 mg PO BEDTIME Qty: 30 1RF paroxetine HCl 10 mg tablet 10 mg PO DAILY Qty: 30 2RF lactulose 10 gram/15 mL solution 10 g PO .COMPLEX Qty: 3785 0RF Rx Instructions: Take 15-30mL daily for constipation. Senna Plus 8.6-50 mg capsule 2 tab-cap PO BEDTIME Qty: 180 1RF Rx Instructions: Take two tablets at bedtime famotidine 20 mg tablet 20 mg PO DAILY PRN (Reason: GERD) Qty: 90 0RF Rx Instructions: Take one tablet as needed for acid reflux Discharge Date/Time: 01/29/25 22:48
--- NOTE | 2025-01-29 15:49 | MHC.EDTECH ---
patient statesshe will like to not get blood work done at this time because she already had blood work done this morning , she states if there are any add on order then she will do them .
[2025-01-29 17:06] LABS: Resp Syncy Virus RNA Qual PCR NEGATIVE (Negative); SARS COV2 PCR INHOUSE NEGATIVE (Negative)
--- OUTSIDE RECORDS SUMMARY | 2025-01-29 20:24 | XMS_ITS | Patient Health Record ---
Author Organization [facility] Address [address] [place] [address] Care Team Providers Care Baker Head Name Role Phone Neyda Foster Primary Care Provider Floyd Moreno Jr Unavailable [phone] Allergies Allergen (clinical drug ingredient) Drug/Non Drug Allergy documented on EMR Reaction Allergy Type Onset Date Status Motrin Unknown Drug Allergy Active Reason For Referral No Information Medications Medication SIG (Take, Route, Frequency, Duration) Notes Start Date End Date Status ProAir HFA 108 (90 Base) MCG/ACT INHALE DANDO DOS SOPLIDOS CADA CUATRO HORAS CUANDO SEA NECESARIO Inhalation for 25 Active hydroCHLOROthiazide 25 MG TOME MADAN TABLE TA POR VIA ORAL TODOS [place] MARTINE[place] Oral for 30 Active clonazePAM 0.5 MG (Schedule IV Drug) TOME AMDAN TABLETA POR VIA ORAL DOS VECES [place] Oral for 30 Active Combivent Respimat 20-100 MCG/ACT TAKE 1 PUFF 4 TIMES A DAY Inhalation for 30 Active traMADol HCl 50 MG (Schedule IV Drug) TOME MADAN TABLETA CADA SEIS HORAS CUANDO SEA NECESARIO 28 DAYS Oral for 28 Active Ranitidine HCl 150 MG 1 tablet Orally Tw ice a day for 30 day(s) 03/22/2016 Active Vitamin D3 96932 UNIT TAKE 1 CAPSULE BY MOUTH ONCE WEEKLY Oral for 30 Active Problems Problem Type SNOMED Code ICD Code Onset Dates Problem Status W/U Status Risk Notes Problem [id number] Left upper quadrant pain (R10.12) Active confirmed Plan Of Treatment Future Test Test Name Order Date UPPER GI ENDOSCOPY 03/22/2016 Insurance Providers Payer Name Payer Address Payer Phone Subscriber Number Group Number Insured Name Patient Relationship to Insured Coverage Start Date Coverage End Date [employer] [address] [place] [id number] ROLLY HDEZ Self - patient is the insured Medical (General) History Medical History History ICD Code anxiety/depression asthma hypertension discussed disease
[2025-01-29 20:31] VITALS: BP 133/78; PULSE 69; RESP 16; O2SAT 97
--- NOTE | 2025-01-29 20:32 | MHC.EDTECH ---
Pt is refusing blood work says she was here last night.
== END 2025-01-29 22:48 | disposition left against medical advice (07) ==
PROVIDERS: Physician Assistant Medical; Emergency Provider Emergency Medicine; PCP Internal Medicine
DX: R51.9 Headache, unspecified (principal); K59.00 Constipation, unspecified; I10 Essential (primary) hypertension; E78.5 Hyperlipidemia, unspecified; J02.9 Acute pharyngitis, unspecified; H92.09 Otalgia, unspecified ear; R11.2 Nausea with vomiting, unspecified; Z03.818 Encounter for observation for suspected exposure to other biological agents ruled out
CPT/HCPCS: 74018; 87637; 99283

== ENCOUNTER → 2025-01-29 14:32 | Outpatient (BNV) | payer OTHER, SELFPAY | PROVIDERS: PCP Internal Medicine; Visit Provider Radiology Diagnostic Radiology | DX: R10.9 Unspecified abdominal pain (principal); K59.00 Constipation, unspecified | CPT/HCPCS: 74018 ==

== ENCOUNTER 2025-02-03 13:50 | Outpatient (AMB) | payer OTHER, SELFPAY ==
[2025-02-03 13:54] VITALS: BP 100/60; PULSE 96; O2SAT 96; BMI 29.2
--- NOTE | 2025-02-03 13:54 | MHC.OFFVIS ---
Vital Signs 02/03/25 13:54 Height 5 ft 1 in Weight 154 lb 5.177 oz BMI 29.2 BP 100/60 Blood Pressure Location Lt brachial Position Sitting Pulse 96 Pulse Source Pulse Oximeter Pulse Oximetry (%) 96 Oxygen Delivery Method Room Air Intake Visit Reasons: Asthma/COPD Accompanied by: Self / Same As Patient Allergies amitriptyline Allergy (Intermediate, Verified 02/03/25 13:59) headache ibuprofen (From Motrin) Allergy (Intermediate, Verified 02/03/25 13:59) ITCHY RASH shrimp Allergy (Mild, Verified 02/03/25 13:59) Unknown seafood Allergy (Verified 02/03/25 13:59) Unknown gabapentin Adverse Reaction (Intermediate, Verified 02/03/25 13:59) vomiting HPI Comments Details: The patient is a 54-year-old woman with a known history of obstructive airway disease in addition to history of pulmonary nodules. Apparently she was in her usual state health until back in the spring of 2020 when she developed COVID. She started developing worsening respiratory symptoms along with dyspnea on exertion. She does use her rescue inhaler and also has a Combivent inhaler that she also finds helpful. She did not require hospitalization for the COVID. Ultimately she did undergo a CT scan of the abdomen over the summer because of worsening abdominal discomfort. We could review the CT scan images. She has multiple pulmonary nodules subcentimeter in size at least at a could see within the lung windows of the CT scan of the abdomen. Some of the nodules were calcified and some of them were noncalcified. She does smoke cigarettes, therefore she is high risk for cancer. The patient should have a formal CT scan of the chest to address the whole lung tissue. In addition to that she does describe significant daytime drowsiness. The patient has issues with headaches in the morning. She does have an elevated Beaufort score 1124. His hard time completing her activities of daily living due to her significant fatigue. She also carries a diagnosis of fibromyalgia. Based on her significant symptoms and cardiovascular risk factors the patient should have a home sleep study at this time. 04/22/2024 the patient is here for a pulmonary follow-up visit. The patient has multiple complaints. She has not been seen in some time. She has been complaining significant sinus congestion and chronic rhinitis. She does have significant allergies. She has also noticed that she has been coughing more with some chest congestion as well. She has been having to use her respiratory inhalers on a regular basis on a daily basis due to significant shortness of breath and cough and shortness of breath. The patient needs to quit smoking. She is willing to try Chantix at this time. On exam she does have significant chronic rhinitis and she does have some wheezing on examination. Therefore, will optimize her allergy therapy and also optimize her respiratory inhaler therapy. I am hopeful that she can quit with Chantix and hopefully improve her respiratory status. She does complaint of the coughing the shortness of breath. Previous CT scan demonstrated pulmonary nodules. Will go ahead and repeat a CT scan at this time. If the CT scan stable we can get her involved in the lung cancer screening program to get her further situated with with cancer screening. 06/16/2024 the patient is here for a pulmonary follow-up visit. She has been sick now for several months. She has required urgent care evaluations. Required 2 courses of prednisone and also 2 courses of antibiotics. She also was recently seen at the ER at [place] because of elevated blood pressure. She became very concerned. She went home she did take hydrochlorothiazide that she had available that she had taken in the past but then it was stopped because of some issues with electrolytes. The patient has been still smoking. She is working on quitting. She would be a great candidate for the lung cancer screening program. 02/03/2025 the patient is here for pulmonary follow-up visit. She continues to have some difficulty with her breathing. Complaining of cough and chest tightness. She also had abdominal discomfort went to the ER. She did have a CT scan of the abdomen demonstrating multiple pulmonary nodules. Unfortunately she continues to smoke cigarettes. She was referred to the lung cancer screening program but she did not qualify. At some point she will need to get a repeat CAT scan to follow-up with the pulmonary nodules. The patient has multiple inhalers. Although she continues to have chest tightness and cough. Will go ahead and optimize her therapy by switching over to Trelegy. [facility] Medical History (Updated 01/31/25 @ 00:01 by Background Daemon) Dysphagia Moderate recurrent major depression Left sided abdominal pain Generalized pruritus Smoking 1/2 pack a day or less Asthma-COPD overlap syndrome Acute maxillary sinusitis Otitis externa Hospital discharge follow-up Microscopic hematuria Physical exam Goiter Blurry vision Tobacco dependence Has daytime drowsiness Pulmonary nodules Dyspnea Hand pain Skin lesion Leg pain, bilateral Dyslipidemia Epigastric pain Essential hypertension Cervical cancer screening GERD (gastroesophageal reflux disease) HTN (hypertension) Migraine Anxiety Depression Right lower quadrant pain Fibromyalgia Surgical History Previous section History of breast lump/mass excision History of lithotripsy H/O LEEP H/O tubal ligation Family History Father Myocardial infarction Mother Lung cancer Brother Liver cancer Maternal Grandfather Stomach cancer Maternal Grandmother No problems noted. Social History Housing: Apartment Alcohol intake: never Patient Tobacco Use Status: Current someday Tobacco user Tobacco use type: Cigarette Cigarette Packs Per Day: 0.25 Cigarettes Per Day: 3 e-Cigarette/Vaping Use: Never Used Second Hand Smoke Exposure: Yes service: No Current occupational status: disabled Gender identity: Female Cognitive needs: No Hearing needs: No Vision needs: No Female Reproductive History Menstrual Age of Menarche: 9 Review of Systems Const Reports daytime sleepiness and Reports headache(s) Eyes Reports no additional complaints, Denies change in vision and Denies other visual disturbances ENT Reports headache(s) Card Denies chest pain at rest, Denies chest pain with activity, Denies edema, Denies irregular heart rhythm, Denies claudication, Reports dyspnea, Denies dyspnea on exertion, Denies orthopnea, Denies paroxysmal nocturnal dyspnea and Denies slow heart rate Resp Reports cough, Reports dyspnea and Denies dyspnea on exertion GI Denies abdominal pain, Denies change in bowel habits, Denies excessive flatus, Reports dyspepsia, Reports heartburn, Denies nausea and Denies vomiting Denies urinary incontinence, Denies urinary hesitancy and Denies urinary urgency Musc Denies abnormal gait, Denies atrophy, Denies deformity, Reports arthralgias and Denies limited range of motion Skin/Breast Denies bleeding lesions, Denies changing lesions and Denies rash Neuro Denies abnormal gait, Denies confusion and Reports headache(s) Psych Reports anxiety, Denies confusion and Reports depression Physical Exam Vital Signs: Last Vital Signs Pulse 96 02/03/25 13:54 BP 100/60 02/03/25 13:54 Pulse Ox 96 02/03/25 13:54 Oxygen Delivery Method Room Air 02/03/25 13:54 BMI result Body Mass Index 29.2 Const General: No confusion Orientation/consciousness: No confusion HEENT General nose exam: Abnormal external nose present and Nasal discharge present Neck Neck: Yes supple Chest Chest palpation & inspection: normal inspection of the chest Resp Auscultation: wheezes and diminished lung sounds Cardio Rate: regular rate Rhythm: regular rhythm Heart sounds: S1 normal heart sound present and S2 normal heart sound present GI Palpation (GI): Soft to palpation and nontender Auscultation: normal bowel sounds Skin General skin exam: rashes and/or lesions noted Neuro General: No confusion Assessment & Plan Assessment & Plan (1) Asthma-COPD overlap syndrome: Code(s): J44.89 - Other specified chronic obstructive pulmonary disease Category: Medical (2) Pulmonary nodules: Code(s): R91.8 - Other nonspecific abnormal finding of lung field Category: Medical (3) Has daytime drowsiness: Code(s): R40.0 - Somnolence Category: Social Hx (4) Dyspnea: Code(s): R06.00 - Dyspnea, unspecified Category: Medical Qualifiers: Dyspnea type: shortness of breath Qualified Code(s): R06.02 - Shortness of breath (5) Tobacco dependence: Code(s): F17.200 - Nicotine dependence, unspecified, uncomplicated Category: Medical (6) Smoking 1/2 pack a day or less: Code(s): F17.210 - Nicotine dependence, cigarettes, uncomplicated Category: Social Hx Plan stop Symbicort start Trelegy 200 start Azithromycin Singulair Continue combivent STEPHANY as needed referral to LDCT program Tobacco dependedncy, consider Chantix. Will monitor for depressive symptoms F/U 4-6 months Medications: New eclrxjahcqu-xregucdio-logebyhv 200-62.5-25 mcg (Trelegy Ellipta) 1 inh inhalation DAILY 60 ea 12RF 30 days loratadine (Claritin) 10 mg PO DAILY 30 tabs 11RF 30 days J30.2 - Other seasonal allergic rhinitis, J45.909 - Unspecified asthma, uncomplicated azithromycin 500 mg PO DAILY 5 tabs 0RF 5 days Coding Level of Care Code Est Pt Level 4 (53997) Diagnoses Asthma-COPD overlap syndrome J44.89 Pulmonary nodules R91.8 Has daytime drowsiness R40.0 Shortness of breath R06.02 Dyspnea type: shortness of breath Tobacco dependence F17.200 Smoking 1/2 pack a day or less F17.210 Time Spent (min) 16
== END 2025-02-03 15:35 | disposition home or self-care (01) ==
LOC: HO.HPS 13:51
PROVIDERS: PCP Internal Medicine; Visit Provider Hospitalist
DX: J44.89 Other specified chronic obstructive pulmonary disease (principal); R91.8 Other nonspecific abnormal finding of lung field; R40.0 Somnolence; R06.02 Shortness of breath; F17.200 Nicotine dependence, unspecified, uncomplicated; F17.210 Nicotine dependence, cigarettes, uncomplicated
CPT/HCPCS: 99214

== ENCOUNTER → 2025-02-03 13:50 | Outpatient (BNVA) | payer OTHER, SELFPAY | PROVIDERS: PCP Internal Medicine; Visit Provider Hospitalist | DX: J44.89 Other specified chronic obstructive pulmonary disease (principal); R91.8 Other nonspecific abnormal finding of lung field; R40.0 Somnolence; R06.02 Shortness of breath; F17.210 Nicotine dependence, cigarettes, uncomplicated | CPT/HCPCS: 99212 ==

== ENCOUNTER 2025-02-05 21:23 | Emergency (ER) | payer OTHER, SELFPAY ==
--- NOTE | 2025-02-05 21:42 | ECG_ITS ---
Test Reason : SOB CHEST TIGHTNESS Blood Pressure : */* mmHG Vent. Rate : 84 BPM Atrial Rate : 84 BPM P-R Int : 152 ms QRS Dur : 74 ms QT Int : 382 ms P-R-T Axes : 58 16 15 degrees QTcB Int : 451 ms Normal sinus rhythm Nonspecific ST abnormality Abnormal ECG When compared with ECG of 25-Jan-2025 02:57, No significant change was found Referred By: Lucie House Electronically Signed By: MARILU MANN MD
[2025-02-05 21:46] VITALS: BP 164/95; PULSE 92; RESP 16; TEMP 36.5; O2SAT 96; BMI 25.7
[2025-02-05 22:03] VITALS: PULSE 92; O2SAT 97
[2025-02-05 22:09] LABS: MANUAL DIFF FLAG NO
[2025-02-05 22:10] LABS: Hematocrit 36.3 % (37.0-47.0); Hemoglobin 11.8 g/dl (12.0-16.0); Imm Gran Abs Auto 0.01 X10*3/uL (0.00-0.03); Imm Gran Pct Auto 0.2 % (0.0-0.4); Lymphocytes Absolute Auto 2.0 X10*3/uL (1.2-4.9); Mean Corpuscular HGB Conc 32.5 g/dl (31.0-35.0); Mean Corpuscular Hemoglobin 26.8 pg (27.0-33.0); Mean Corpuscular Volume 82.3 fL (80.0-98.0); NRBC Abs Auto 0.000 X10*3/uL (0.0-0.012); NRBC Pct Auto 0.0 /100WBC (0.0-0.2); Platelet Count 285 X10*3/uL (160-400); Red Blood Count 4.41 X10*6/uL (4.20-5.50); White Blood Count 6.2 X10*3/uL (4.8-10.8)
[2025-02-05 22:18] LABS: IDNOW Serial# 6674DD1D; Strep A Nucleic Acid Negative (Negative)
--- NOTE | 2025-02-05 22:41 | ED.URI ---
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 She feels some chest tightness, her face is tingling she feels it is swollen with a rash. She states she has taken this medication before without issue. Her boyfriend with sick with URI last week. No recent travel or procedures. She tried a klonopin but it did not help. MD elicited complaint: sore throat and other Onset (ago): day(s) (few) Consistency: constant Severity: moderate Able to tolerate fluids by mouth: Yes Exacerbating factors: swallowing Relieving factors: nothing Context: sick contacts Associated symptoms: headache, sore throat, chest pain and rash Treatments prior to arrival: antibiotics Related Data Previous Rx's ?Medication ?Instructions ?Recorded cane #1 ea 09/06/22 acetaminophen 500 mg tablet 1,000 mg (2 x 500 mg) PO TID PRN 10/07/22 pain #20 tabs underpads (Bed Underpads) #100 ea 03/28/23 walker #1 ea 03/28/23 naloxone 10 mg/0.4 mL 2 mg (0.08 mL) subcut Q3M 30 days 01/09/24 injection,auto-injector #4 mL nebulizers (AeroEclipse II #1 ea 04/03/24 Nebulizer) riboflavin (vitamin B2) 400 mg 400 mg PO DAILY 30 days #30 tabs 04/16/24 tablet cholecalciferol (vitamin D3) 50 50 mcg PO DAILY 90 days #90 tabs 04/24/24 mcg (2,000 unit) tablet olopatadine 0.7 % eye drops 1 drp ophthalmic (eye) Q24H PRN 08/11/24 (Pataday Once Daily Relief) itching #5 mL albuterol sulfate 90 mcg/actuation 2 puff inhalation Q4-6H PRN 10/03/24 aerosol inhaler shortness of breath or wheezing #6.7 grams diphenhydramine HCl 25 mg capsule 50 mg (2 x 25 mg) PO Q6H PRN 10/06/24 allergic reaction #20 caps epinephrine 0.3 mg/0.3 mL 0.3 mg (0.3 mL) IM Q10M PRN 10/06/24 injection, auto-injector (EpiPen anaphylaxis #2 ea 2-Pantera) menthol 0.1 % lotion (Eucerin Itch 1 ea topical BID 14 days #250 mL 10/06/24 Relief) fexofenadine 180 mg tablet 180 mg PO DAILY #90 tabs 10/09/24 (Gemini Allergy) hydrocortisone 2.5 % topical 1 appl topical BID-TID PRN itching 10/09/24 ointment #454 grams zolpidem 5 mg tablet (Ambien) 5 mg PO BEDTIME #30 tabs 10/16/24 rimegepant 75 mg disintegrating 75 mg PO ONCE PRN migraine 10/24/24 tablet (Nurtec ODT) headache 30 days #15 tabs magnesium oxide 400 mg (241.3 mg 400 mg PO BEDTIME 30 days #30 tabs 10/28/24 magnesium) tablet fenofibrate 54 mg tablet 54 mg PO DAILY 90 days #90 tabs 11/06/24 blood pressure monitor (Blood #1 ea 11/21/24 Pressure Kit) hydroxyzine HCl 50 mg tablet 50 mg PO Q8H PRN nausea and 12/03/24 vomiting #90 tabs meclizine 25 mg tablet 25 mg PO TID #20 tabs 12/03/24 galcanezumab-gnlm 120 mg/mL 120 mg subcut Q30D 30 days #1 mL 12/05/24 subcutaneous pen injector (Emgality Pen) paroxetine HCl 10 mg tablet 10 mg PO DAILY #30 tabs 12/18/24 hydrochlorothiazide 12.5 mg tablet 12.5 mg PO DAILY 90 days #90 tabs 12/23/24 fluticasone propionate 50 2 spray intranasal DAILY PRN nasal 12/27/24 mcg/actuation nasal congestion #16 grams spray,suspension (Flonase Allergy Relief) ozjhbndpul-mpxiqxehvqfye-jpirdznd 1 cap PO Q8H PRN migraine headache 01/25/25 50 mg-300 mg-40 mg capsule #10 caps (Fioricet) famotidine 20 mg tablet 20 mg PO DAILY PRN GERD #90 tabs 01/28/25 lactulose 10 gram/15 mL oral 10 g (15 mL) PO .COMPLEX 01/28/25 solution constipation #3,785 mL sennosides 8.6 mg-docusate sodium 2 tab-cap (2 x 8.6-50 mg) PO 01/28/25 50 mg capsule (Senna Plus) BEDTIME #180 caps clonazepam 0.5 mg tablet 0.5 mg PO BID PRN anxiety 30 days 01/29/25 #60 tabs tramadol 50 mg tablet 50 mg PO BID PRN severe pain 02/02/25 (scale score 7-10) 30 days #60 tabs azithromycin 500 mg tablet 500 mg PO DAILY 5 days #5 tabs 02/03/25 fluticasone fur. 200 mcg-umeclid 1 inh inhalation DAILY 30 days #60 02/03/25 62.5 mcg-vilant 25 mcg ea inhalat.powder (Trelegy Ellipta) loratadine 10 mg tablet (Claritin) 10 mg PO DAILY 30 days #30 tabs 02/03/25 fluticasone furoate 200 1 inh inhalation DAILY 30 days #60 02/04/25 mcg-vilanterol 25 mcg/dose ea inhalation powder (Breo Ellipta) umeclidinium 62.5 mcg/actuation 1 inh inhalation DAILY 30 days #30 02/04/25 blister powder for inhalation ea (Incruse Ellipta) prednisone 20 mg tablet 40 mg (2 x 20 mg) PO DAILY 4 days 02/05/25 #8 tabs Allergies Allergy/AdvReac Type Severity Reaction Status Date / Time amitriptyline Allergy Intermediate headache Verified 02/05/25 21:50 ibuprofen (From Motrin) Allergy Intermediate ITCHY RASH Verified 02/05/25 21:50 shrimp Allergy Mild Unknown Verified 02/05/25 21:50 seafood Allergy Unknown Verified 02/05/25 21:50 gabapentin AdvReac Intermediate vomiting Verified 02/05/25 21:50 Review of Systems Review of Systems: Constitutional : No Fever, No Chills, pos Fatigue ENT/Mouth : pos sore throat, No Rhinorrhea Eyes: No Eye Pain, No Swelling, No Redness Cardiovascular : pos Chest Pain, No SOB Respiratory : No Cough, No Sputum Gastrointestinal : No Nausea, No Vomiting, No Diarrhea, No abdominal Pain Genitourinary : No Dysuria, No Urinary Frequency, No Hematuria, Musculoskeletal : No joint pain, No Myalgias, No Joint Swelling Skin : No Skin Lesions, No rash Neuro : No Weakness, No Numbness, No Dizziness, positive Headache Psych : pos Anxiety/Panic, No Depression All other systems reviewed and are negative [facility] Past Medical History Attestation statement: The following information was validated with the patient. Source: old records reviewed Medical History Dysphagia Moderate recurrent major depression Left sided abdominal pain Generalized pruritus Smoking 1/2 pack a day or less Asthma-COPD overlap syndrome Acute maxillary sinusitis Otitis externa Hospital discharge follow-up Microscopic hematuria Physical exam Goiter Blurry vision Tobacco dependence Has daytime drowsiness Pulmonary nodules Dyspnea Hand pain Skin lesion Leg pain, bilateral Dyslipidemia Epigastric pain Essential hypertension Cervical cancer screening GERD (gastroesophageal reflux disease) HTN (hypertension) Migraine Anxiety Depression Right lower quadrant pain Fibromyalgia Surgical History Previous section History of breast lump/mass excision History of lithotripsy H/O LEEP H/O tubal ligation Family History Family History Father Myocardial infarction Mother Lung cancer Brother Liver cancer Maternal Grandfather Stomach cancer Maternal Grandmother No problems noted. Social History Social History Housing: Apartment Alcohol intake: never Patient Tobacco Use Status: Current someday Tobacco user Tobacco use type: Cigarette Cigarette Packs Per Day: 0.25 Cigarettes Per Day: 3 Smoked in Last 30 Days: No e-Cigarette/Vaping Use: Never Used Second Hand Smoke Exposure: Yes Use of substances other than those prescribed or required for medical reasons: No Advance Directives: No Patient : No service: No Current occupational status: disabled Gender identity: Female Cognitive needs: No Hearing needs: No Vision needs: No Physical Exam Vital Signs: Vital Signs: Last Vital Signs Temp 97.7 F 02/05/25 21:46 Pulse 92 02/05/25 21:46 Resp 16 02/05/25 21:46 BP 164/95 H 02/05/25 21:46 Pulse Ox 97 02/05/25 22:03 O2 Del Method Room Air 02/05/25 22:03 BMI result Body Mass Index 25.7 Appearance: Alert. Oriented X3. No acute distress. Eyes: Pupils equal, round and reactive to light. ENT: Pharynx normal. no angioedema, no swelling, no redness, no exudates, normal voice, tolerating saliva, both AOM normal no signs of infection, some splotchy red patches on forehead but not raised, no preauricular swelling, no overlying rash, no sublingual or submandibular swelling, no parotid gland ttp Neck: Normal inspection. Neck supple. CVS: Normal heart rate and rhythm. Pulses normal. Respiratory: No respiratory distress. Breath sounds normal. Abdomen: Soft and nontender. Skin: Skin warm and dry. Normal skin color. Extremities: No lower extremity edema. Neuro: Oriented X 3. No motor deficit. No sensory deficit. CN2-12 intact Medications Administered Discontinued Medications Generic Name Dose Route Start Last Admin Trade Name Freq PRN Reason Stop Dose Admin Famotidine 20 mg 02/05/25 21:41 02/05/25 22:10 Famotidine 20 Mg Tablet PO 02/05/25 21:42 20 mg ONCE ONE Administration Prednisone 40 mg 02/05/25 21:41 02/05/25 22:10 Prednisone 20 Mg Tablet PO 02/05/25 21:42 40 mg ONCE ONE Administration Medical Decision Making Medical Decision Making MDM Narrative: 54 yo female with PMH of GERD, headaches, depression/anxiety, asthma-COPD overlap syndrome now here with c/o sore throat, facial rash and feeling face swollen on exam she has normal oropharynx and no signs of angio edema. She c/o heart racing at this time her symptoms have been going on for a few days will obtain EKG, basic labs, viral panel, trop x 1. Her wells score for PE is negative. Her ear exam is benign I think reading the notes she was started on zpak for URI type symptoms. I would hold it and start her on prednisone. Differential Diagnosis Differential Diagnoses: The differential diagnosis associated with the presentation includes URI, viral syndrome, COVID, anxiety, med reaction symptoms atypical for ACS and wells score neg for PE Admission/Observation Consideration of admission/observation: Escalation of care including admission/observation considered negative work up stable for DC has R chronic TMJ PO pain meds ordered plan to start on prednisone and continue claritin hold zpak told to seek help for fevers/sputum Lab Data MDM Lab Attestation statement: I reviewed the patient's lab results. 02/05/25 21:55 02/05/25 21:55 Labs: Lab Results 02/05/25 Range/Units 21:55 WBC 6.2 (4.8-10.8) X10*3/uL RBC 4.41 (4.20-5.50) X10*6/uL Hgb 11.8 L (12.0-16.0) g/dl Hct 36.3 L (37.0-47.0) % MCV 82.3 (80.0-98.0) fL MCH 26.8 L (27.0-33.0) pg MCHC 32.5 (31.0-35.0) g/dl RDW 14.6 (11.0-16.0) % Plt Count 285 (160-400) X10*3/uL MPV 10.6 (9.4-12.3) fL Immature Gran % (Auto) 0.2 (0.0-0.4) % Neut % (Auto) 55.3 (45-73) % Lymph % (Auto) 32.8 (20-40) % Barry % (Auto) 7.8 (2-11) % Eos % (Auto) 3.1 (0-4) % Baso % (Auto) 0.8 (0-2) % Lymph # (Auto) 2.0 (1.2-4.9) X10*3/uL Barry # (Auto) 0.5 (0.1-1.2) X10*3/uL Eos # (Auto) 0.2 (0.0-0.4) X10*3/uL Baso # (Auto) 0.1 (0.0-0.2) X10*3/uL Abs Immat Gran (auto) 0.01 (0.00-0.03) X10*3/uL Absolute Neuts (auto) 3.4 (2.0-8.3) x10*3/uL Absolute Nucleated RBC 0.000 (0.0-0.012) X10*3/uL Nucleated RBC % (auto) 0.0 (0.0-0.2) /100WBC Sodium 141 (135-145) mmol/L Potassium 4.2 D (3.3-5.1) mmol/L Chloride 106 (96-108) mmol/L Carbon Dioxide 21 L (22-29) mmol/L Anion Gap 18 (12-20) BUN 12 (9-16) mg/dL Creatinine 0.88 (0.5-1.4) mg/dL Estim Creat Clear Calc 70.0 Estimated GFR > 60 Random Glucose 81 (60-115) mg/dL Calcium 9.0 (8.4-10.2) mg/dL Magnesium 1.8 (1.6-2.6) mg/dL Total Bilirubin 0.4 (0.0-1.0) mg/dL Direct Bilirubin < 0.1 (0.0-0.5) mg/dL AST 43 H (5-31) U/L ALT 18 (0-31) U/L Alkaline Phosphatase 110 (39-117) U/L Troponin I High Sens < 2.7 (<3.5-17.0) ng/L Total Protein 8.2 H (6.5-8.0) g/dL Albumin 4.4 (3.5-5.0) g/dL Influenza Type A (PCR) NEGATIVE (Negative) Influenza Type B (PCR) NEGATIVE (Negative) RSV RNA Qual (PCR) NEGATIVE (Negative) SARS-CoV-2 RNA (RT-PCR) NEGATIVE (Negative) S. pyogenes GrpA DANTE Negative (Negative) Independent Interpretation I performed an independent interpretation of an: EKG Interpretation: Rate: 84 Rhythm: NSR [place]: normal Normal P waves. Normal ALLAN. Normal QRS complex. ST T wave : no TING, inverted t wave V1 qTC: 451 prior studies: no TING The study has been interpreted contemporaneously by me. . External Record Review External record reviewed: Outpatient record Prescription Management I considered prescription management with: Antibiotic and Other Discharge Plan Discharge Clinical Impression: Acute viral syndrome, History of TMJ syndrome Patient Disposition: Home, Self-Care Instructions: Viral Syndrome (ED) Additional Instructions: stop taking the azithromycin seek help for return of swelling, fevers over 100.4, confusion, worsening pain, yellow or green sputum production or any other concerns Prescriptions: New prednisone 20 mg tablet 40 mg PO DAILY 4 Days Qty: 8 0RF No Action (DME) cane Device See Rx Instructions .Route Qty: 1 0RF Rx Instructions: As directed (DME) walker Misc See Rx Instructions .Route Qty: 1 0RF Rx Instructions: To be use lifetime (DME) underpads [Bed Underpads] Pad See Rx Instructions .Route Qty: 100 0RF Rx Instructions: As directed naloxone 10 mg/0.4 mL auto-injector 2 mg subcut Q3M 30 Days Qty: 4 0RF Rx Instructions: until desired response riboflavin (vitamin B2) 400 mg tablet 400 mg PO DAILY 30 Days Qty: 30 6RF cholecalciferol (vitamin D3) 50 mcg (2,000 unit) tablet 50 mcg PO DAILY 90 Days Qty: 90 1RF Nurtec ODT 75 mg tablet,disintegrating 75 mg PO ONCE MDD 1 tab PRN (Reason: migraine headache) 30 Days Qty: 15 6RF Rx Instructions: Prior authorization approved through 04/22/2025 fenofibrate 54 mg tablet 54 mg PO DAILY 90 Days Qty: 90 1RF (DME) blood pressure monitor [Blood Pressure Kit] Kit See Rx Instructions .ROUTE .MEDSUPPLY Qty: 1 0RF Rx Instructions: As directed hydroxyzine HCl 50 mg tablet 50 mg PO Q8H PRN (Reason: nausea and vomiting) Qty: 90 1RF Emgality Pen 120 mg/mL pen injector 120 mg subcut Q30D 30 Days Qty: 1 6RF Rx Instructions: Maintenance dose of 120 mg subcu q.month. [place] APPROVED 12/04/24-06/05/25 hydrochlorothiazide 12.5 mg tablet 12.5 mg PO DAILY 90 Days Qty: 90 3RF clonazepam 0.5 mg tablet 0.5 mg PO BID PRN (Reason: anxiety) 30 Days Qty: 60 1RF tramadol 50 mg tablet 50 mg PO BID PRN (Reason: severe pain (scale score 7-10)) 30 Days Qty: 60 0RF Incruse Ellipta 62.5 mcg/actuation blister with device 1 inh inhalation DAILY 30 Days Qty: 30 11RF fluticasone furoate-vilanterol [Breo Ellipta] 200-25 mcg/dose blister with device 1 inh inhalation DAILY 30 Days Qty: 60 11RF acetaminophen 500 mg tablet 1,000 mg PO TID PRN (Reason: pain) Qty: 20 0RF xpzbzzowxj-fibtsegxlpihe-hugv [Fioricet] 50-300-40 mg capsule 1 cap PO Q8H PRN (Reason: migraine headache) Qty: 10 0RF albuterol sulfate 90 mcg/actuation HFA aerosol inhaler 2 puff inhalation Q4-6H PRN (Reason: shortness of breath or wheezing) Qty: 6.7 0RF meclizine 25 mg tablet 25 mg PO TID Qty: 20 0RF fluticasone propionate [Flonase Allergy Relief] 50 mcg/actuation spray,suspension 2 spray intranasal DAILY PRN (Reason: nasal congestion) Qty: 16 0RF Rx Instructions: administer into each nostril diphenhydramine HCl 25 mg capsule 50 mg PO Q6H PRN (Reason: allergic reaction) Qty: 20 0RF epinephrine [EpiPen 2-Pantera] 0.3 mg/0.3 mL auto-injector 0.3 mg IM Q10M PRN (Reason: anaphylaxis) Qty: 2 0RF Rx Instructions: for 3 doses Eucerin Itch Relief 0.1 % lotion 1 ea topical BID 14 Days Qty: 250 0RF hydrocortisone 2.5 % ointment 1 appl topical BID-TID PRN (Reason: itching) Qty: 454 1RF fexofenadine [Gemini Allergy] 180 mg tablet 180 mg PO DAILY Qty: 90 1RF magnesium oxide 400 mg (241.3 mg magnesium) tablet 400 mg PO BEDTIME 30 Days Qty: 30 6RF Rx Instructions: may hold for loose stools (DME) nebulizers [AeroEclipse II Nebulizer] [facility] See Rx Instructions .Route Qty: 1 0RF Rx Instructions: As directed Pataday Once Daily Relief 0.7 % drops 1 drp ophthalmic (eye) Q24H PRN (Reason: itching) Qty: 5 0RF zolpidem [Ambien] 5 mg tablet 5 mg PO BEDTIME Qty: 30 1RF paroxetine HCl 10 mg tablet 10 mg PO DAILY Qty: 30 2RF loratadine [Claritin] 10 mg tablet 10 mg PO DAILY 30 Days Qty: 30 11RF Trelegy Ellipta 200-62.5-25 mcg blister with device 1 inh inhalation DAILY 30 Days Qty: 60 12RF azithromycin 500 mg tablet 500 mg PO DAILY 5 Days Qty: 5 0RF lactulose 10 gram/15 mL solution 10 g PO .COMPLEX Qty: 3785 0RF Rx Instructions: Take 15-30mL daily for constipation. Senna Plus 8.6-50 mg capsule 2 tab-cap PO BEDTIME Qty: 180 1RF Rx Instructions: Take two tablets at bedtime famotidine 20 mg tablet 20 mg PO DAILY PRN (Reason: GERD) Qty: 90 0RF Rx Instructions: Take one tablet as needed for acid reflux Print Language: Ken[place]
[2025-02-05 22:47] LABS: Alanine Aminotransferase 18 U/L (0-31); Albumin Level 4.4 g/dL (3.5-5.0); Alkaline Phosphatase 110 U/L (39-117); Anion Gap 18 (12-20); Aspartate Amino Transferase 43 U/L (5-31); Blood Urea Nitrogen 12 mg/dL (9-16); Calcium 9.0 mg/dL (8.4-10.2); Carbon Dioxide 21 mmol/L (22-29); Chloride 106 mmol/L (96-108); Creatinine Clr Calc Pharmacy 70.0; Estimated Glomerular Filt Rate > 60; Magnesium 1.8 mg/dL (1.6-2.6); Potassium 4.2 mmol/L (3.3-5.1); Resp Syncy Virus RNA Qual PCR NEGATIVE (Negative); SARS COV2 PCR INHOUSE NEGATIVE (Negative); Sodium 141 mmol/L (135-145); Total Protein 8.2 g/dL (6.5-8.0); Troponin-I High Sensitivity < 2.7 ng/L (<3.5-17.0)
[2025-02-06] MEDS: oxyCODONE HCl Immed Release 5 MG TABLET PO (00:07)
[2025-02-06 00:11] VITALS: BP 158/89; PULSE 87; RESP 18; TEMP 37.1; O2SAT 97
== END 2025-02-06 00:12 | disposition home or self-care (01) ==
PROVIDERS: Emergency Provider Emergency Medicine; PCP Internal Medicine
DX: B34.9 Viral infection, unspecified (principal); R51.9 Headache, unspecified; R07.89 Other chest pain; R21 Rash and other nonspecific skin eruption; H92.03 Otalgia, bilateral; Z03.818 Encounter for observation for suspected exposure to other biological agents ruled out; Z79.899 Other long term (current) drug therapy; F17.210 Nicotine dependence, cigarettes, uncomplicated
CPT/HCPCS: 36415; 80048; 80076; 83735; 84484; 85025; 87637; 87651; 93005; 99283; 99285

== ENCOUNTER → 2025-02-05 21:42 | Outpatient (BNV) | payer OTHER, SELFPAY | PROVIDERS: Emergency Provider Emergency Medicine; PCP Internal Medicine; Visit Provider Internal Medicine Cardiovascular Disease | DX: R94.31 Abnormal electrocardiogram [ECG] [EKG] (principal); R06.02 Shortness of breath; R07.89 Other chest pain | CPT/HCPCS: 93010 ==

== ENCOUNTER 2025-02-08 19:53 | Emergency (ER) | payer OTHER, SELFPAY ==
--- NOTE | ~2025-02-08 | XR_ITS ---
CLINICAL HISTORY: cough 2 view chest x-ray Comparison: CR - XR CHEST 1V - 12/27/24 22:02 EDT Findings: No consolidation or effusion. Normal size heart. No acute fracture. IMPRESSION: 1. No acute findings. This document has been electronically signed by: Oscar Raygoza MD on 02/08/2025 20:56:17
[2025-02-08 19:55] VITALS: BP 174/77; PULSE 98; RESP 20; TEMP 35.9; O2SAT 97; BMI 28.8
--- NOTE | 2025-02-08 20:03 | ED_ITS ---
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 The patient denies phlegm production fever hemoptysis or history of DVT or PE nor any acute or unilateral leg swelling pleuritic pain or anginal-type chest pain. No abdominal pain nausea vomiting. Related Data Previous Rx's ?Medication ?Instructions ?Recorded cane #1 ea 09/06/22 acetaminophen 500 mg tablet 1,000 mg (2 x 500 mg) PO T ID PRN 10/07/22 pain #20 tabs underpads (Bed Underpads) #100 ea 03/28/23 walker #1 ea 03/28/23 naloxone 10 mg/0.4 mL 2 mg (0.08 mL) subcut Q3M 30 days 01/09/24 injection,auto-injector #4 mL nebulizers (AeroEclipse II #1 ea 04/03/24 Nebulizer) riboflavin (vitamin B2) 400 mg 400 mg PO DAILY 30 days #30 tabs 04/16/24 tablet cholecalciferol (vitamin D3) 50 50 mcg PO DAILY 90 day s #90 tabs 04/24/24 mcg (2,000 unit) tablet olopatadine 0.7 % eye drops 1 drp ophthalmic (eye) Q24 H PRN 08/11/24 (Pataday Once Daily Relief) itching #5 mL albuterol sulfate 90 mcg/actuation 2 puff inhalation Q 4-6H PRN 10/03/24 aerosol inhaler shortness of breath or wheez ing #6.7 grams diphenhydramine HCl 25 mg capsule 50 mg (2 x 25 mg) PO Q6H PRN 10/06/24 allergic reaction #20 caps epinephrine 0.3 mg/0.3 mL 0.3 mg (0.3 mL) IM Q10M PRN 10/06/24 injection, auto-injector (EpiPen anaphylaxis #2 ea 2-Pantera) menthol 0.1 % lotion (Eucerin Itch 1 ea topical BID 14 days #250 mL 10/06/24 Relief) fexofenadine 180 mg tablet 180 mg PO DAILY #90 tabs (Gemini Allergy) hydrocortisone 2.5 % topical 1 appl topical BID-TID NM N itching 10/09/24 ointment #454 grams zolpidem 5 mg tablet (Ambien) 5 mg PO BEDTIME #30 tabs 10/16/24 rimegepant 75 mg disintegrating 75 mg PO ONCE PRN migr danie 10/24/24 tablet (Nurtec ODT) headache 30 days #15 tabs magnesium oxide 400 mg (241.3 mg 400 mg PO BEDTIME 30 days #30 tabs 10/28/24 magnesium) tablet fenofibrate 54 mg tablet 54 mg PO DAILY 90 days #90 t abs 11/06/24 blood pressure monitor (Blood #1 ea 11/21/24 Pressure Kit) hydroxyzine HCl 50 mg tablet 50 mg PO Q8H PRN nausea a nd 12/03/24 vomiting #90 tabs meclizine 25 mg tablet 25 mg PO TID #20 tabs galcanezumab-gnlm 120 mg/mL 120 mg subcut Q30D 30 days #1 mL 12/05/24 subcutaneous pen injector (Emgality Pen) paroxetine HCl 10 mg tablet 10 mg PO DAILY #30 tabs hydrochlorothiazide 12.5 mg tablet 12.5 mg PO DAILY 90 days #90 tabs 12/23/24 fluticasone propionate 50 2 spray intranasal DAILY PRN nasal 12/27/24 mcg/actuation nasal congestion #16 grams spray,suspension (Flonase Allergy Relief) oroqjaemxq-ppumkcjzrgyfx-glsdorpx 1 cap PO Q8H PRN eber ana headache 01/25/25 50 mg-300 mg-40 mg capsule #10 caps (Fioricet) famotidine 20 mg tablet 20 mg PO DAILY PRN GERD #90 tabs 01/28/25 lactulose 10 gram/15 mL oral 10 g (15 mL) PO .COMPLEX 01/28/25 solution constipation #3,785 mL sennosides 8.6 mg-docusate sodium 2 tab-cap (2 x 8.6-5 0 mg) PO 01/28/25 50 mg capsule (Senna Plus) BEDTIME #180 caps clonazepam 0.5 mg tablet 0.5 mg PO BID PRN anxiety 30 days 01/29/25 #60 tabs tramadol 50 mg tablet 50 mg PO BID PRN severe pain 02/02/25 (scale score 7-10) 30 days #60 tabs azithromycin 500 mg tablet 500 mg PO DAILY 5 days #5 t abs 02/03/25 fluticasone fur. 200 mcg-umeclid 1 inh inhalation RACHEL Y 30 days #60 02/03/25 62.5 mcg-vilant 25 mcg ea inhalat.powder (Trelegy Ellipta) loratadine 10 mg tablet (Claritin) 10 mg PO DAILY 30 d ays #30 tabs 02/03/25 fluticasone furoate 200 1 inh inhalation DAILY 30 da ys #60 02/04/25 mcg-vilanterol 25 mcg/dose ea inhalation powder (Breo Ellipta) umeclidinium 62.5 mcg/actuation 1 inh inhalation DAILY 30 days #30 02/04/25 blister powder for inhalation ea (Incruse Ellipta) prednisone 20 mg tablet 40 mg (2 x 20 mg) PO DAILY 4 days 02/05/25 #8 tabs prednisone 20 mg tablet 60 mg (3 x 20 mg) PO DAILY 3 days 02/08/25 #9 tabs Allergies Allergy/AdvReac Type Severity Reaction Status Date / Time amitriptyline Allergy Intermediate headache Verified 02/08/25 19:59 ibuprofen (From Motrin) Allergy Intermediate ITCHY RASH Verified 02/08/25 19:59 shrimp Allergy Mild Unknown Verified 02/08/25 19:59 seafood Allergy Unknown Verified 02/08/25 19:59 gabapentin AdvReac Intermediate vomiting Verified 02/08/25 19:59 [facility] Past Medical History Medical History Dysphagia Moderate recurrent major depression Left sided abdominal pain Generalized pruritus Smoking 1/2 pack a day or less Asthma-COPD overlap syndrome Acute maxillary sinusitis Otitis externa Hospital discharge follow-up Microscopic hematuria Physical exam Goiter Blurry vision Tobacco dependence Has daytime drowsiness Pulmonary nodules Dyspnea Hand pain Skin lesion Leg pain, bilateral Dyslipidemia Epigastric pain Essential hypertension Cervical cancer screening GERD (gastroesophageal reflux disease) HTN (hypertension) Migraine Anxiety Depression Right lower quadrant pain Fibromyalgia Surgical History Previous section History of breast lump/mass excision History of lithotripsy H/O LEEP H/O tubal ligation Family History Family History Father Myocardial infarction Mother Lung cancer Brother Liver cancer Maternal Grandfather Stomach cancer Maternal Grandmother No problems noted. Social History Social History Housing: Apartment Alcohol intake: never Patient Tobacco Use Status: Current someday Tobacco user Tobacco use type: Cigarette Cigarette Packs Per Day: 0.25 Cigarettes Per Day: 3 Smoked in Last 30 Days: Yes e-Cigarette/Vaping Use: Never Used Second Hand Smoke Exposure: Yes Use of substances other than those prescribed or required for medical reasons: No Advance Directives: No Advance Directives Information Provided: No Do you have a plan to hurt others: No Plan service: No Current occupational status: disabled Gender identity: Female Cognitive needs: No Hearing needs: No Vision needs: No Physical Exam ED Vital Signs: Vital Signs - 24 hr 02/08/25 19:55 02/08/25 22:13 02/08/25 23:25 Temperature 96.7 F L 98.5 F Pulse Rate 98 74 78 Respiratory Rate 20 18 16 Blood Pressure 174/77 H 145/80 H 129/77 Pulse Oximetry 97 99 99 Oxygen Delivery Method Room Air Room Air Room Air 02/08/25 23:49 02/09/25 00:17 Temperature 97.8 F Pulse Rate 80 80 Respiratory Rate 18 18 Blood Pressure 129/64 Pulse Oximetry 98 Oxygen Delivery Method Room Air BMI result Body Mass Index 28.8 Course Course Course Narrative: RME, this is a rapid medical exam performed by Mohsen Azevedo please refer to primary provider for complete H&P- 54-year-old female past medical history significant for asthma presents for evaluation of cough, shortness of breath and chest tightness. She was seen here 3 days ago for similar complaints was given nebulizers and prednisone reports no improvement. Plan for x-ray, repeat labs, EKG Medications Administered Discontinued Medications Generic Name Dose Route Start Last Admin Trade Name Freq PRN Reason Stop Dose Admin Albuterol/Ipratropium 3 ml 02/08/25 23:37 02/08/25 23:49 Albuterol/Iprat 2.5/0.5mg 3 Ml Ampul.Neb INHALE 02/08/25 23:38 3 ml ONCE ONE Administration Guaifenesin 1,200 mg 02/08/25 23:37 02/09/25 00:14 Guaifenesin La 600 Mg Tab.Er.12h PO 02/08/25 23:38 1,200 mg ONCE ONE Administration Prednisone 60 mg 02/08/25 23:37 02/09/25 00:14 Prednisone 20 Mg Tablet PO 02/08/25 23:38 60 mg ONCE ONE Administration Medical Decision Making Medical Decision Making MDM Narrative: Medical Decision Makin-year-old female with intermittent tobacco smoking history with wheeze ongoing 4-5 days. 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 She has got very mild scant bilateral wheeze expiratory phase only. No respiratory distress or hypoxia. No focal infiltrate. Reassuring lab work. Plan for DuoNeb, increased prednisone dosing close follow up with pulmonology. Preliminary Favored Differential Diagnosis: Reactive airway disease, bronchitis, inflammatory or allergic bronchitis, pneumonia among additional considered etiologies Testing Interpreted Independently: ?See below for details Radiology or Lab testing Results Reviewed: ?See below for details Consults: ?See below for details Independent Historians/External Chart Reviews: ?See below for details Social Determinants of Health Impacting MDM/Planning: ?See below for details Differential Diagnosis Preliminary Favored Differential Diagnosis: Reactive airway disease, bronchitis, inflammatory or allergic bronchitis, pneumonia among additional considered etiologies Admission/Observation Consideration of admission/observation: Escalation of care including admission/observation considered Consult Healthcare Provider Management of the patient was discussed with: Product Operations Associate (Respiratory therapy) Lab Data [facility] Lab Attestation statement: I reviewed the patient's lab results. 02/08/25 20:22 02/08/25 20:22 Labs: Lab Results 02/08/25 02/08/25 Range/Units 20:22 23:29 WBC 10.8 (4.8-10.8) X10*3/uL RBC 4.24 (4.20-5.50) X10*6/uL Hgb 11.5 L (12.0-16.0) g/dl Hct 34.3 L (37.0-47.0) % MCV 80.9 (80.0-98.0) fL MCH 27.1 (27.0-33.0) pg MCHC 33.5 (31.0-35.0) g/dl RDW 15.4 (11.0-16.0) % Plt Count 303 (160-400) X10*3/uL MPV 10.1 (9.4-12.3) fL Immature Gran % (Auto) 0.6 H (0.0-0.4) % Neut % (Auto) 84.6 H (45-73) % Lymph % (Auto) 11.7 L (20-40) % [place] % (Auto) 2.6 (2-11) % Eos % (Auto) 0.1 (0-4) % Baso % (Auto) 0.4 (0-2) % Lymph # (Auto) 1.3 (1.2-4.9) X10*3/uL [place] # (Auto) 0.3 (0.1-1.2) X10*3/uL Eos # (Auto) 0.0 (0.0-0.4) X10*3/uL Baso # (Auto) 0.0 (0.0-0.2) X10*3/uL Abs Immat Gran (auto) 0.07 H (0.00-0.03) X10*3/uL Absolute Neuts (auto) 9.1 H (2.0-8.3) x10*3/uL Absolute Nucleated RBC 0.000 (0.0-0.012) X10*3/uL Nucleated RBC % (auto) 0.0 (0.0-0.2) /100WBC Sodium 141 (135-145) mmol/L Potassium 3.7 (3.3-5.1) mmol/L Chloride 107 (96-108) mmol/L Carbon Dioxide 23 (22-29) mmol/L Anion Gap 15 (12-20) BUN 23 H (9-16) mg/dL Creatinine 1.24 (0.5-1.4) mg/dL Estim Creat Clear Calc 45.1 Estimated GFR 45 Random Glucose 130 H (60-115) mg/dL Calcium 9.7 D (8.4-10.2) mg/dL Total Bilirubin 0.3 (0.0-1.0) mg/dL AST 27 (5-31) U/L ALT 21 (0-31) U/L Alkaline Phosphatase 108 (39-117) U/L Troponin I High Sens < 2.7 (<3.5-17.0) ng/L Total Protein 7.6 (6.5-8.0) g/dL Albumin 4.6 (3.5-5.0) g/dL Lipase 18 (8-78) U/L Urine Color Yellow Urine Appearance Clear Urine pH 6.0 (5.0-9.0) Ur Specific [place] 1.015 (1.005-1.025) Urine Protein Negative (Neg-Trace) mg/dL Urine Glucose (UA) Negative (Negative) mg/dL Urine Ketones Negative (Negative) mg/dL Urine Blood Trace H (Negative) Urine Nitrite Negative (Negative) Ur Leukocyte Esterase Negative (Negative) Urine RBC 6-10 H (0-2) /HPF Urine WBC 0-5 (0-5) /HPF Ur Squamous Epith Cells 3-5 (0-2) /HPF Urine Bacteria None Seen (None Seen) Hyaline Casts 0-2 (0-2) /LPF Independent Interpretation I performed an independent interpretation of an: Plain X-Ray (No infiltrate) Radiology Impression Discussion of test interpretation with radiology: I have reviewed the radiologist's reading. External Record Review External record reviewed: Other I reviewed Dr. Marinelli's pulmonology note from February 03. History and diagnoses listed there suggest asthma/COPD, pulmonary nodules, at that time there plan was stop Symbicort, start Trelegy, start Z-Pantera, Singulair, Combivent, prn Angelina. What the patient thought was steroid at 10 mg daily appears to be Claritin per pulmonology note Discharge Plan Discharge Clinical Impression: Wheezing Patient Disposition: Home, Self-Care Instructions: Wheezing (ED) Additional Instructions: _ DISCHARGE DIAGNOSES: Wheezing - unclear cause possibly bronchitis or reactive airway disease or related to smoking history HISTORY OF PRESENTATION: ?Cough and wheezing difficulty breathing on even minimal exertion EMERGENCY DEPARTMENT COURSE,TESTS, TREATMENTS: While in the ED today you had an x-ray of your chest without signs of pneumonia or other abnormality. You had lab work which was reassuring. You received steroid 60 mg prednisone, cough medicine and albuterol/ipratropium respiratory treatment DISCHARGE MEDICATIONS: ?We have increased the dose of prednisone you should take only what we have prescribed you 60 mg for the next 3 days prednisone and continue with the inhaler as needed FOLLOW-UP: ?Call your primary or general physician soon as possible to discuss your symptoms, your ED visit and to discuss follow up plans Call your lining layer for follow up INSTRUCTIONS ?& RETURN PRECAUTIONS: If any symptoms change first call your primary physician, if it is after-hours your primary doctors office should have a provider international trade analyst you can speak with. If the symptoms are severe or very concerning to you then call 911 or return to the ED. [07] Angelito Pink MD Emergency Physician [facility] Prescriptions: New prednisone 20 mg tablet 60 mg PO DAILY 3 Days Qty: 9 0RF No Action (DME) cane Device See Rx Instructions .Route Qty: 1 0RF Rx Instructions: As directed (DME) walker Misc See Rx Instructions .Route Qty: 1 0RF Rx Instructions: To be use lifetime (DME) underpads [Bed Underpads] Pad See Rx Instructions .Route Qty: 100 0RF Rx Instructions: As directed naloxone 10 mg/0.4 mL auto-injector 2 mg subcut Q3M 30 Days Qty: 4 0RF Rx Instructions: until desired response riboflavin (vitamin B2) 400 mg tablet 400 mg PO DAILY 30 Days Qty: 30 6RF cholecalciferol (vitamin D3) 50 mcg (2,000 unit) tablet 50 mcg PO DAILY 90 Days Qty: 90 1RF Nurtec ODT 75 mg tablet,disintegrating 75 mg PO ONCE MDD 1 tab PRN (Reason: migraine headache) 30 Days Qty: 15 6RF Rx Instructions: Prior authorization approved through 04/22/2025 fenofibrate 54 mg tablet 54 mg PO DAILY 90 Days Qty: 90 1RF (DME) blood pressure monitor [Blood Pressure Kit] Kit See Rx Instructions .ROUTE .MEDSUPPLY Qty: 1 0RF Rx Instructions: As directed hydroxyzine HCl 50 mg tablet 50 mg PO Q8H PRN (Reason: nausea and vomiting) Qty: 90 1RF Emgality Pen 120 mg/mL pen injector 120 mg subcut Q30D 30 Days Qty: 1 6RF Rx Instructions: Maintenance dose of 120 mg subcu q.month. [place] APPROVED 12/04/24-06/05/25 hydrochlorothiazide 12.5 mg tablet 12.5 mg PO DAILY 90 Days Qty: 90 3RF clonazepam 0.5 mg tablet 0.5 mg PO BID PRN (Reason: anxiety) 30 Days Qty: 60 1RF tramadol 50 mg tablet 50 mg PO BID PRN (Reason: severe pain (scale score 7-10)) 30 Days Qty: 60 0RF Incruse Ellipta 62.5 mcg/actuation blister with device 1 inh inhalation DAILY 30 Days Qty: 30 11RF fluticasone furoate-vilanterol [Breo Ellipta] 200-25 mcg/dose blister with device 1 inh inhalation DAILY 30 Days Qty: 60 11RF acetaminophen 500 mg tablet 1,000 mg PO TID PRN (Reason: pain) Qty: 20 0RF tqszhzvsee-csqhldloptjny-xepd [Fioricet] 50-300-40 mg capsule 1 cap PO Q8H PRN (Reason: migraine headache) Qty: 10 0RF prednisone 20 mg tablet 40 mg PO DAILY 4 Days Qty: 8 0RF albuterol sulfate 90 mcg/actuation HFA aerosol inhaler 2 puff inhalation Q4-6H PRN (Reason: shortness of breath or wheezing) Qty: 6.7 0RF meclizine 25 mg tablet 25 mg PO TID Qty: 20 0RF fluticasone propionate [Flonase Allergy Relief] 50 mcg/actuation spray,suspension 2 spray intranasal DAILY PRN (Reason: nasal congestion) Qty: 16 0RF Rx Instructions: administer into each nostril diphenhydramine HCl 25 mg capsule 50 mg PO Q6H PRN (Reason: allergic reaction) Qty: 20 0RF epinephrine [EpiPen 2-Pantera] 0.3 mg/0.3 mL auto-injector 0.3 mg IM Q10M PRN (Reason: anaphylaxis) Qty: 2 0RF Rx Instructions: for 3 doses Eucerin Itch Relief 0.1 % lotion 1 ea topical BID 14 Days Qty: 250 0RF hydrocortisone 2.5 % ointment 1 appl topical BID-TID PRN (Reason: itching) Qty: 454 1RF fexofenadine [Gemini Allergy] 180 mg tablet 180 mg PO DAILY Qty: 90 1RF magnesium oxide 400 mg (241.3 mg magnesium) tablet 400 mg PO BEDTIME 30 Days Qty: 30 6RF Rx Instructions: may hold for loose stools (DME) nebulizers [AeroEclipse II Nebulizer] Misc See Rx Instructions .Route Qty: 1 0RF Rx Instructions: As directed Pataday Once Daily Relief 0.7 % drops 1 drp ophthalmic (eye) Q24H PRN (Reason: itching) Qty: 5 0RF zolpidem [Ambien] 5 mg tablet 5 mg PO BEDTIME Qty: 30 1RF paroxetine HCl 10 mg tablet 10 mg PO DAILY Qty: 30 2RF loratadine [Claritin] 10 mg tablet 10 mg PO DAILY 30 Days Qty: 30 11RF Trelegy Ellipta 200-62.5-25 mcg blister with device 1 inh inhalation DAILY 30 Days Qty: 60 12RF azithromycin 500 mg tablet 500 mg PO DAILY 5 Days Qty: 5 0RF lactulose 10 gram/15 mL solution 10 g PO .COMPLEX Qty: 3785 0RF Rx Instructions: Take 15-30mL daily for constipation. Senna Plus 8.6-50 mg capsule 2 tab-cap PO BEDTIME Qty: 180 1RF Rx Instructions: Take two tablets at bedtime famotidine 20 mg tablet 20 mg PO DAILY PRN (Reason: GERD) Qty: 90 0RF Rx Instructions: Take one tablet as needed for acid reflux Interventions: ED Discharge Assessment Last Done: 02/09/25 00:17 Discharge Date/Time: 02/09/25 00:30 Print Language: Thai
[2025-02-08 20:32] LABS: MANUAL DIFF FLAG NO
[2025-02-08 20:33] LABS: Hematocrit 34.3 % (37.0-47.0); Hemoglobin 11.5 g/dl (12.0-16.0); Imm Gran Abs Auto 0.07 X10*3/uL (0.00-0.03); Imm Gran Pct Auto 0.6 % (0.0-0.4); Lymphocytes Absolute Auto 1.3 X10*3/uL (1.2-4.9); Mean Corpuscular HGB Conc 33.5 g/dl (31.0-35.0); Mean Corpuscular Hemoglobin 27.1 pg (27.0-33.0); Mean Corpuscular Volume 80.9 fL (80.0-98.0); NRBC Abs Auto 0.000 X10*3/uL (0.0-0.012); NRBC Pct Auto 0.0 /100WBC (0.0-0.2); Platelet Count 303 X10*3/uL (160-400); Red Blood Count 4.24 X10*6/uL (4.20-5.50); White Blood Count 10.8 X10*3/uL (4.8-10.8)
[2025-02-08 20:50] LABS: Alanine Aminotransferase 21 U/L (0-31); Albumin Level 4.6 g/dL (3.5-5.0); Alkaline Phosphatase 108 U/L (39-117); Anion Gap 15 (12-20); Aspartate Amino Transferase 27 U/L (5-31); Blood Urea Nitrogen 23 mg/dL (9-16); Calcium 9.7 mg/dL (8.4-10.2); Carbon Dioxide 23 mmol/L (22-29); Chloride 107 mmol/L (96-108); Creatinine Clr Calc Pharmacy 45.1; Estimated Glomerular Filt Rate 45; Lipase 18 U/L (8-78); Potassium 3.7 mmol/L (3.3-5.1); Sodium 141 mmol/L (135-145); Total Protein 7.6 g/dL (6.5-8.0)
[2025-02-08 20:58] LABS: Troponin-I High Sensitivity < 2.7 ng/L (<3.5-17.0)
[2025-02-08 22:13] VITALS: BP 145/80; PULSE 74; RESP 18; TEMP 36.9; O2SAT 99
[2025-02-08 23:25] VITALS: BP 129/77; PULSE 78; RESP 16; O2SAT 99
[2025-02-08 23:41] LABS: Appearance Urine Clear; Glucose Urine UA Negative (Negative); PH 6.0 (5.0-9.0); Specific Gravity - Urine 1.015 (1.005-1.025); UMIC TRIGGER UACC YES
[2025-02-08 23:49] VITALS: PULSE 80; RESP 18; O2SAT 98
[2025-02-08] MEDS: Albuterol/Iprat 2.5/0.5MG 3 ML AMPUL.NEB INHALE (23:49)
[2025-02-09] MEDS: guaiFENesin LA 600 MG TAB.ER.12H 1200 MG PO (00:14)
[2025-02-09 00:17] VITALS: BP 129/64; PULSE 80; RESP 18; TEMP 36.6; O2SAT 98
== END 2025-02-09 00:30 | disposition home or self-care (01) ==
PROVIDERS: Physician Assistant; Emergency Provider Emergency Medicine
DX: R06.2 Wheezing (principal); R06.00 Dyspnea, unspecified; Z87.891 Personal history of nicotine dependence; Z79.899 Other long term (current) drug therapy; R05.9 Cough, unspecified
CPT/HCPCS: 36415; 71046; 80053; 81001; 83690; 84484; 85025; 94640; 99284

== ENCOUNTER → 2025-02-08 20:03 | Outpatient (BNV) | payer OTHER, SELFPAY | PROVIDERS: Visit Provider Student in an Organized Health Care Education/Training Program | DX: R05.9 Cough, unspecified (principal) | CPT/HCPCS: 71046 ==

== ENCOUNTER 2025-02-11 19:29 | Emergency (ER) | payer OTHER, SELFPAY ==
--- NOTE | ~2025-02-11 | XR_ITS ---
CLINICAL HISTORY: SOB 2 view chest x-ray Comparison: CR - XR CHEST 2V - 02/08/25 20:33 EDT Findings: The lungs are clear. Stable right upper lobe granuloma. Heart size is normal. No acute fracture. IMPRESSION: 1. No acute findings. This document has been electronically signed by: Oscar Raygoza MD on 02/12/2025 01:43:34
--- NOTE | 2025-02-11 19:33 | ED_ITS ---
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 Acosta HPI narrative: [age] year female history of asthma-COPD overlap syndrome, depression/anxiety, headache patient presented today for evaluation of a right facial pain, right ear pain, wheezing, today is the 3rd visit this week for same symptoms. Patient today is complaining of right-sided frontal pain, right maxillary pain, right ear pain, shortness of breath. No CP. Related Data Previous Rx's ?Medication ?Instructions ?Recorded cane #1 ea 09/06/22 acetaminophen 500 mg tablet 1,000 mg (2 x 500 mg) PO T ID PRN 10/07/22 pain #20 tabs underpads (Bed Underpads) #100 ea 03/28/23 walker #1 ea 03/28/23 naloxone 10 mg/0.4 mL 2 mg (0.08 mL) subcut Q3M 30 days 01/09/24 injection,auto-injector #4 mL nebulizers (AeroEclipse II #1 ea 04/03/24 Nebulizer) riboflavin (vitamin B2) 400 mg 400 mg PO DAILY 30 days #30 tabs 04/16/24 tablet cholecalciferol (vitamin D3) 50 50 mcg PO DAILY 90 day s #90 tabs 04/24/24 mcg (2,000 unit) tablet olopatadine 0.7 % eye drops 1 drp ophthalmic (eye) Q24 H PRN 08/11/24 (Pataday Once Daily Relief) itching #5 mL albuterol sulfate 90 mcg/actuation 2 puff inhalation Q 4-6H PRN 10/03/24 aerosol inhaler shortness of breath or wheez ing #6.7 grams diphenhydramine HCl 25 mg capsule 50 mg (2 x 25 mg) PO Q6H PRN 10/06/24 allergic reaction #20 caps epinephrine 0.3 mg/0.3 mL 0.3 mg (0.3 mL) IM Q10M PRN 10/06/24 injection, auto-injector (EpiPen anaphylaxis #2 ea 2-Pantera) menthol 0.1 % lotion (Eucerin Itch 1 ea topical BID 14 days #250 mL 10/06/24 Relief) fexofenadine 180 mg tablet 180 mg PO DAILY #90 tabs (Gemini Allergy) hydrocortisone 2.5 % topical 1 appl topical BID-TID AL N itching 10/09/24 ointment #454 grams rimegepant 75 mg disintegrating 75 mg PO ONCE PRN migr danie 10/24/24 tablet (Nurtec ODT) headache 30 days #15 tabs magnesium oxide 400 mg (241.3 mg 400 mg PO BEDTIME 30 days #30 tabs 10/28/24 magnesium) tablet fenofibrate 54 mg tablet 54 mg PO DAILY 90 days #90 t abs 11/06/24 blood pressure monitor (Blood #1 ea 11/21/24 Pressure Kit) hydroxyzine HCl 50 mg tablet 50 mg PO Q8H PRN nausea a nd 12/03/24 vomiting #90 tabs meclizine 25 mg tablet 25 mg PO TID #20 tabs galcanezumab-gnlm 120 mg/mL 120 mg subcut Q30D 30 days #1 mL 12/05/24 subcutaneous pen injector (Emgality Pen) paroxetine HCl 10 mg tablet 10 mg PO DAILY #30 tabs hydrochlorothiazide 12.5 mg tablet 12.5 mg PO DAILY 90 days #90 tabs 12/23/24 fluticasone propionate 50 2 spray intranasal DAILY PRN nasal 12/27/24 mcg/actuation nasal congestion #16 grams spray,suspension (Flonase Allergy Relief) cikmiqnvyd-jxucvznafgmzw-ehyygkrz 1 cap PO Q8H PRN eber ana headache 01/25/25 50 mg-300 mg-40 mg capsule #10 caps (Fioricet) famotidine 20 mg tablet 20 mg PO DAILY PRN GERD #90 tabs 01/28/25 lactulose 10 gram/15 mL oral 10 g (15 mL) PO .COMPLEX 01/28/25 solution constipation #3,785 mL sennosides 8.6 mg-docusate sodium 2 tab-cap (2 x 8.6-5 0 mg) PO 01/28/25 50 mg capsule (Senna Plus) BEDTIME #180 caps clonazepam 0.5 mg tablet 0.5 mg PO BID PRN anxiety 30 days 08/14/25 #60 tabs tramadol 50 mg tablet 50 mg PO BID PRN severe pain 02/02/25 (scale score 7-10) 30 days #60 tabs azithromycin 500 mg tablet 500 mg PO DAILY 5 days #5 t abs 02/03/25 fluticasone fur. 200 mcg-umeclid 1 inh inhalation RACHEL Y 30 days #60 02/03/25 62.5 mcg-vilant 25 mcg ea inhalat.powder (Trelegy Ellipta) loratadine 10 mg tablet (Claritin) 10 mg PO DAILY 30 d ays #30 tabs 02/03/25 fluticasone furoate 200 1 inh inhalation DAILY 30 da ys #60 02/04/25 mcg-vilanterol 25 mcg/dose ea inhalation powder (Breo Ellipta) umeclidinium 62.5 mcg/actuation 1 inh inhalation DAILY 30 days #30 02/04/25 blister powder for inhalation ea (Incruse Ellipta) prednisone 20 mg tablet 40 mg (2 x 20 mg) PO DAILY 4 days 02/05/25 #8 tabs prednisone 20 mg tablet 60 mg (3 x 20 mg) PO DAILY 3 days 02/08/25 #9 tabs zolpidem 5 mg tablet (Ambien) 5 mg PO BEDTIME #30 tabs 02/10/25 albuterol sulfate 2.5 mg/3 mL 2.5 mg (3 mL) inhalation Q4-6H PRN 02/12/25 (0.083 %) solution for nebulization bronchospasm #75 m L azithromycin 250 mg tablet See Rx Instructions PO .COM PLEX #6 02/12/25 (Zithromax Z-Pantera) tabs Allergies Allergy/AdvReac Type Severity Reaction Status Date / Time amitriptyline Allergy Intermediate headache Verified 02/11/25 19:41 ibuprofen (From Motrin) Allergy Intermediate ITCHY RASH Verified 02/11/25 19:41 shrimp Allergy Mild Unknown Verified 02/11/25 19:41 seafood Allergy Unknown Verified 02/11/25 19:41 gabapentin AdvReac Intermediate vomiting Verified 02/11/25 19:41 Review of Systems 2 Review of Systems: All other systems are reviewed and are negative Constitutional: Reports as per HPI and Reports no additional constitutional complaints Eyes: Reports as per HPI and Reports no additional eye complaints Reports system reviewed and no additional complaints, except as documented Cardiovascular: Reports as per HPI and Reports no additional cardiovascular complaints Respiratory: Reports as per HPI and Reports no additional respiratory complaints Gastrointestinal: Reports as per HPI and Reports no additional gastrointestinal complaints Genitourinary: Reports no additional female genitourinary complaints Musculoskeletal: Reports no additional musculoskeletal complaints Skin/Breast: Reports system reviewed and no additional complaints, except as docu Psychiatric: Reports no additional psychiatric complaints Endocrine: Reports no additional endocrine complaints Hematologic/Lymphatic: Reports no additional hematologic/lymphatic complaints Allergic/Immunologic: Reports no additional allergic/immunologic complaints Reports system reviewed and no additional complaints, except as documented and Reports Abnormal speech present [facility] Past Medical History Medical History Dysphagia Moderate recurrent major depression Left sided abdominal pain Generalized pruritus Smoking 1/2 pack a day or less Asthma-COPD overlap syndrome Acute maxillary sinusitis Otitis externa Hospital discharge follow-up Microscopic hematuria Physical exam Goiter Blurry vision Tobacco dependence Has daytime drowsiness Pulmonary nodules Dyspnea Hand pain Skin lesion Leg pain, bilateral Dyslipidemia Epigastric pain Essential hypertension Cervical cancer screening GERD (gastroesophageal reflux disease) HTN (hypertension) Migraine Anxiety Depression Right lower quadrant pain Fibromyalgia Surgical History Previous section History of breast lump/mass excision History of lithotripsy H/O LEEP H/O tubal ligation Family History Family History Father Myocardial infarction Mother Lung cancer Brother Liver cancer Maternal Grandfather Stomach cancer Maternal Grandmother No problems noted. Social History Social History Housing: Apartment Alcohol intake: never Patient Tobacco Use Status: Current someday Tobacco user Tobacco use type: Cigarette Cigarette Packs Per Day: 0.25 Cigarettes Per Day: 3 Smoked in Last 30 Days: Yes e-Cigarette/Vaping Use: Never Used Second Hand Smoke Exposure: Yes Use of substances other than those prescribed or required for medical reasons: No Advance Directives: No Advance Directives Information Provided: Yes service: No Current occupational status: disabled Gender identity: Female Cognitive needs: No Hearing needs: No Vision needs: No Physical Exam ED Vital Signs: Vital Signs - 24 hr 02/11/25 19:34 Temperature 98.1 F Pulse Rate 88 Respiratory Rate 20 Blood Pressure 152/73 H Pulse Oximetry 96 Oxygen Delivery Method Room Air BMI result Body Mass Index 29.5 Vital signs have been reviewed and appear to be correct. Blood pressure elevated. Heart rate normal. Respiratory rate normal. Temperature normal. Oxygen saturation normal. Appearance: Alert. Oriented X3. No acute distress. Head: Normal external exam. Normocephalic. Atraumatic. No Goodrich signs noted. No raccoon eyes noted Eyes: PERRLA. EOMI. Conjunctiva and sclera normal. Eyelids normal. ENT: Right TM erythema, right frontal/maxillary sinus tenderness with percussion. Pharynx normal. Uvula midline. Moist mucous membranes. No trismus noted. No drooling noted. No muffled voice noted. Neck: Normal inspection. Neck supple. FROM. No adenopathy. Thyroid Normal. No meningeal signs. No neck mass noted. CVS: Normal heart rate and rhythm. Heart sound normal. No murmurs noted. Pulses normal throughout. Respiratory: No respiratory distress. Painless inspiration. Breath sounds normal. No wheezes/rales/rhonchi noted. Chest nontender. No accessory muscle usage noted or decreased air movement noted. Abdomen: Soft and nontender. Bowel sounds normal in all 4 quadrants. No distention noted. No organomegaly noted. No visible injury noted. Back: No CVA tenderness. Full range of motion noted. Skin: Skin warm and dry. Normal skin color. Normal skin turgor. No rashes/lesions/lacerations noted. Extremities: No lower extremity edema. Extremities exhibit normal range of motion. Extremities nontender. Neuro: Oriented X 3. Cranial nerve exam: II-XII are grossly intact No motor deficit. No sensory deficit. Reflexes normal. Course Course Course Narrative: This is an RME: Additional HPI, ROS, PE not included below will be deferred to primary provider. RME assessment and note performed by: Rosa M Roberts PA-C This is a [id number], with a hx of migraines, GERD, depression/anxiety, asthma-COPD overlap syndrome who presents to the ER with complaints of wheezing. Was seen here on 02/08 and was placed on prednisone Every 4 hours she is dependent on albuterol/pump. Plan: Xrays, labs Reevaluation(s) Reevaluation #1: Right otitis media, right maxillary sinusitis, right frontal sinusitis will start the patient on Augmentin. 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 Will prescribe bronchodilator. VSS, O2 sat 96% on room air with RR 20/minute, no respiratory distress patient talks in the full sentence, leukocytosis secondary to prednisone. Time: 01:11 Reevaluation #2: Patient is asking to switch Augmentin to Z-Pantera because it worked better in the past. Time: 02:05 Medications Administered Discontinued Medications Generic Name Dose Route Start Last Admin Trade Name Freq PRN Reason Stop Dose Admin Amoxicillin/Clavulanate Potassium 875 mg 02/12/25 01:02 02/12/25 01:15 Amoxicillin/Potassium Clav 875 Mg Tablet PO 02/12/25 01:03 875 mg ONCE ONE Administration Medical Decision Making Differential Diagnosis Differential Diagnoses: The differential diagnosis associated with the presentation includes (Acute sinus infection, acute otitis media, pneumonia, pneumothorax, pleural effusion.) Admission/Observation Consideration of admission/observation: Escalation of care including admission/observation considered Lab Data MDM Lab Attestation statement: I reviewed the patient's lab results. 02/11/25 19:54 02/11/25 19:54 Labs: Lab Results 02/11/25 Range/Units 19:54 WBC 13.6 H (4.8-10.8) X10*3/uL RBC 4.69 (4.20-5.50) X10*6/uL Hgb 12.6 (12.0-16.0) g/dl Hct 39.0 (37.0-47.0) % MCV 83.2 (80.0-98.0) fL MCH 26.9 L (27.0-33.0) pg MCHC 32.3 (31.0-35.0) g/dl RDW 15.3 (11.0-16.0) % Plt Count 343 (160-400) X10*3/uL MPV 10.3 (9.4-12.3) fL Immature Gran % (Auto) 0.9 H (0.0-0.4) % Neut % (Auto) 83.1 H (45-73) % Lymph % (Auto) 11.7 L (20-40) % Vance % (Auto) 3.7 (2-11) % Eos % (Auto) 0.1 (0-4) % Baso % (Auto) 0.5 (0-2) % Lymph # (Auto) 1.6 (1.2-4.9) X10*3/uL Vance # (Auto) 0.5 (0.1-1.2) X10*3/uL Eos # (Auto) 0.0 (0.0-0.4) X10*3/uL Baso # (Auto) 0.1 (0.0-0.2) X10*3/uL Abs Immat Gran (auto) 0.12 H (0.00-0.03) X10*3/uL Absolute Neuts (auto) 11.3 H (2.0-8.3) x10*3/uL Absolute Nucleated RBC 0.000 (0.0-0.012) X10*3/uL Nucleated RBC % (auto) 0.0 (0.0-0.2) /100WBC Sodium 140 (135-145) mmol/L Potassium 4.0 (3.3-5.1) mmol/L Chloride 105 (96-108) mmol/L Carbon Dioxide 21 L (22-29) mmol/L Anion Gap 18 (12-20) BUN 31 H (9-16) mg/dL Creatinine 1.38 (0.5-1.4) mg/dL Estim Creat Clear Calc 40.9 Estimated GFR 40 Random Glucose 146 H (60-115) mg/dL Calcium 9.7 (8.4-10.2) mg/dL Magnesium 2.0 (1.6-2.6) mg/dL Total Bilirubin 0.3 (0.0-1.0) mg/dL Direct Bilirubin < 0.1 (0.0-0.5) mg/dL AST 27 (5-31) U/L ALT 26 (0-31) U/L Alkaline Phosphatase 111 (39-117) U/L Troponin I High Sens < 2.7 (<3.5-17.0) ng/L Total Protein 7.7 (6.5-8.0) g/dL Albumin 4.5 (3.5-5.0) g/dL COVID-19 (EDWAR) Negative (Negative) COVID-19 Clin Com See Note Influenza Type A (DANTE) Negative (Negative) Influenza Type B (DANTE) Negative (Negative) Influenza A & B Note See Note Independent Interpretation I performed an independent interpretation of an: Plain X-Ray (Chest: No acute intrathoracic pathology.) Radiology Impression Discussion of test interpretation with radiology: I have reviewed the radiologist's reading. Discharge Plan Discharge Clinical Impression: Acute right otitis media, Acute frontal sinusitis, Right maxillary sinusitis, Acute asthma exacerbation Patient Disposition: Home, Self-Care Instructions: Asthma (ED), Sinusitis (ED), Ear Infection (ED) Prescriptions: New albuterol sulfate 2.5 mg /3 mL (0.083 %) solution for nebulization 2.5 mg inhalation Q4-6H PRN (Reason: bronchospasm) Qty: 75 0RF azithromycin [Zithromax Z-Pantera] 250 mg tablet See Rx Instructions .ROUTE .COMPLEX Qty: 6 0RF Rx Instructions: For 250 mg dose pack: take 500 mg today (day 1), then 250 mg for 4 days (days 2-5) No Action (DME) cane Device See Rx Instructions .Route Qty: 1 0RF Rx Instructions: As directed (DME) walker Misc See Rx Instructions .Route Qty: 1 0RF Rx Instructions: To be use lifetime (DME) underpads [Bed Underpads] Pad See Rx Instructions .Route Qty: 100 0RF Rx Instructions: As directed naloxone 10 mg/0.4 mL auto-injector 2 mg subcut Q3M 30 Days Qty: 4 0RF Rx Instructions: until desired response riboflavin (vitamin B2) 400 mg tablet 400 mg PO DAILY 30 Days Qty: 30 6RF cholecalciferol (vitamin D3) 50 mcg (2,000 unit) tablet 50 mcg PO DAILY 90 Days Qty: 90 1RF Nurtec ODT 75 mg tablet,disintegrating 75 mg PO ONCE MDD 1 tab PRN (Reason: migraine headache) 30 Days Qty: 15 6RF Rx Instructions: Prior authorization approved through 04/22/2025 fenofibrate 54 mg tablet 54 mg PO DAILY 90 Days Qty: 90 1RF (DME) blood pressure monitor [Blood Pressure Kit] Kit See Rx Instructions .ROUTE .MEDSUPPLY Qty: 1 0RF Rx Instructions: As directed hydroxyzine HCl 50 mg tablet 50 mg PO Q8H PRN (Reason: nausea and vomiting) Qty: 90 1RF Emgality Pen 120 mg/mL pen injector 120 mg subcut Q30D 30 Days Qty: 1 6RF Rx Instructions: Maintenance dose of 120 mg subcu q.month. [place] APPROVED 12/04/24-06/05/25 hydrochlorothiazide 12.5 mg tablet 12.5 mg PO DAILY 90 Days Qty: 90 3RF clonazepam 0.5 mg tablet 0.5 mg PO BID PRN (Reason: anxiety) 30 Days Qty: 60 1RF tramadol 50 mg tablet 50 mg PO BID PRN (Reason: severe pain (scale score 7-10)) 30 Days Qty: 60 0RF Incruse Ellipta 62.5 mcg/actuation blister with device 1 inh inhalation DAILY 30 Days Qty: 30 11RF fluticasone furoate-vilanterol [Breo Ellipta] 200-25 mcg/dose blister with device 1 inh inhalation DAILY 30 Days Qty: 60 11RF acetaminophen 500 mg tablet 1,000 mg PO TID PRN (Reason: pain) Qty: 20 0RF vgtmrojdls-mpzlrhfospmdd-ctvq [Fioricet] 50-300-40 mg capsule 1 cap PO Q8H PRN (Reason: migraine headache) Qty: 10 0RF prednisone 20 mg tablet 40 mg PO DAILY 4 Days Qty: 8 0RF prednisone 20 mg tablet 60 mg PO DAILY 3 Days Qty: 9 0RF albuterol sulfate 90 mcg/actuation HFA aerosol inhaler 2 puff inhalation Q4-6H PRN (Reason: shortness of breath or wheezing) Qty: 6.7 0RF meclizine 25 mg tablet 25 mg PO TID Qty: 20 0RF fluticasone propionate [Flonase Allergy Relief] 50 mcg/actuation spray,suspension 2 spray intranasal DAILY PRN (Reason: nasal congestion) Qty: 16 0RF Rx Instructions: administer into each nostril diphenhydramine HCl 25 mg capsule 50 mg PO Q6H PRN (Reason: allergic reaction) Qty: 20 0RF epinephrine [EpiPen 2-Pantera] 0.3 mg/0.3 mL auto-injector 0.3 mg IM Q10M PRN (Reason: anaphylaxis) Qty: 2 0RF Rx Instructions: for 3 doses Eucerin Itch Relief 0.1 % lotion 1 ea topical BID 14 Days Qty: 250 0RF hydrocortisone 2.5 % ointment 1 appl topical BID-TID PRN (Reason: itching) Qty: 454 1RF fexofenadine [Gemini Allergy] 180 mg tablet 180 mg PO DAILY Qty: 90 1RF magnesium oxide 400 mg (241.3 mg magnesium) tablet 400 mg PO BEDTIME 30 Days Qty: 30 6RF Rx Instructions: may hold for loose stools (DME) nebulizers [AeroEclipse II Nebulizer] Misc See Rx Instructions .Route Qty: 1 0RF Rx Instructions: As directed Pataday Once Daily Relief 0.7 % drops 1 drp ophthalmic (eye) Q24H PRN (Reason: itching) Qty: 5 0RF paroxetine HCl 10 mg tablet 10 mg PO DAILY Qty: 30 2RF loratadine [Claritin] 10 mg tablet 10 mg PO DAILY 30 Days Qty: 30 11RF Trelegy Ellipta 200-62.5-25 mcg blister with device 1 inh inhalation DAILY 30 Days Qty: 60 12RF azithromycin 500 mg tablet 500 mg PO DAILY 5 Days Qty: 5 0RF lactulose 10 gram/15 mL solution 10 g PO .COMPLEX Qty: 3785 0RF Rx Instructions: Take 15-30mL daily for constipation. Senna Plus 8.6-50 mg capsule 2 tab-cap PO BEDTIME Qty: 180 1RF Rx Instructions: Take two tablets at bedtime famotidine 20 mg tablet 20 mg PO DAILY PRN (Reason: GERD) Qty: 90 0RF Rx Instructions: Take one tablet as needed for acid reflux zolpidem [Ambien] 5 mg tablet 5 mg PO BEDTIME Qty: 30 1RF Referrals: Neyda Foster MD [Primary Care Provider, Internal Medicine] Print Language: Tajik
[2025-02-11 19:34] VITALS: BP 152/73; PULSE 88; RESP 20; TEMP 36.7; O2SAT 96; BMI 29.5
--- NOTE | 2025-02-11 19:38 | ECG_ITS ---
Test Reason : DYSPNEA Blood Pressure : */* mmHG Vent. Rate : 82 BPM Atrial Rate : 82 BPM P-R Int : 116 ms QRS Dur : 74 ms QT Int : 376 ms P-R-T Axes : 40 10 11 degrees QTcB Int : 439 ms Normal sinus rhythm Minimal voltage criteria for LVH, may be normal variant ( R in aVL ) Borderline ECG When compared with ECG of 05-Feb-2025 22:07, No significant change was found Referred By: Rosa M Roberts Electronically Signed By: DAVON REVELES
[2025-02-11 20:00] LABS: MANUAL DIFF FLAG NO
[2025-02-11 20:07] LABS: Hematocrit 39.0 % (37.0-47.0); Hemoglobin 12.6 g/dl (12.0-16.0); Imm Gran Abs Auto 0.12 X10*3/uL (0.00-0.03); Imm Gran Pct Auto 0.9 % (0.0-0.4); Lymphocytes Absolute Auto 1.6 X10*3/uL (1.2-4.9); Mean Corpuscular HGB Conc 32.3 g/dl (31.0-35.0); Mean Corpuscular Hemoglobin 26.9 pg (27.0-33.0); Mean Corpuscular Volume 83.2 fL (80.0-98.0); NRBC Abs Auto 0.000 X10*3/uL (0.0-0.012); NRBC Pct Auto 0.0 /100WBC (0.0-0.2); Platelet Count 343 X10*3/uL (160-400); Red Blood Count 4.69 X10*6/uL (4.20-5.50); White Blood Count 13.6 X10*3/uL (4.8-10.8)
[2025-02-11 20:18] LABS: COVID-19 Test Negative (Negative); IDNOW Serial# 08D9AD1C; IDNOW Serial# 6674DD1D; Influenza B2 Negative (Negative)
[2025-02-11 20:24] LABS: Alanine Aminotransferase 26 U/L (0-31); Albumin Level 4.5 g/dL (3.5-5.0); Alkaline Phosphatase 111 U/L (39-117); Anion Gap 18 (12-20); Aspartate Amino Transferase 27 U/L (5-31); Blood Urea Nitrogen 31 mg/dL (9-16); Calcium 9.7 mg/dL (8.4-10.2); Carbon Dioxide 21 mmol/L (22-29); Chloride 105 mmol/L (96-108); Creatinine Clr Calc Pharmacy 40.9; Estimated Glomerular Filt Rate 40; Magnesium 2.0 mg/dL (1.6-2.6); Potassium 4.0 mmol/L (3.3-5.1); Sodium 140 mmol/L (135-145); Total Protein 7.7 g/dL (6.5-8.0)
[2025-02-11 20:31] LABS: Troponin-I High Sensitivity < 2.7 ng/L (<3.5-17.0)
[2025-02-12 02:16] VITALS: BP 152/73; PULSE 88; RESP 20; TEMP 36.7; O2SAT 96
== END 2025-02-12 02:16 | disposition home or self-care (01) ==
PROVIDERS: Physician Assistant Medical; Emergency Provider Emergency Medicine; PCP Internal Medicine
DX: J45.901 Unspecified asthma with (acute) exacerbation (principal); H66.91 Otitis media, unspecified, right ear; J01.10 Acute frontal sinusitis, unspecified; J01.00 Acute maxillary sinusitis, unspecified; I10 Essential (primary) hypertension
CPT/HCPCS: 36415; 71046; 80048; 80076; 83735; 84484; 85025; 87502; 87635; 93005; 99283; 99284

== ENCOUNTER → 2025-02-11 19:38 | Outpatient (BNV) | payer OTHER, SELFPAY | PROVIDERS: Emergency Provider Emergency Medicine; PCP Internal Medicine; Visit Provider Internal Medicine | DX: R06.00 Dyspnea, unspecified (principal) | CPT/HCPCS: 93010 ==

== ENCOUNTER → 2025-02-12 00:50 | Outpatient (BNV) | payer OTHER, SELFPAY | PROVIDERS: Emergency Provider Emergency Medicine; PCP Internal Medicine; Visit Provider Student in an Organized Health Care Education/Training Program | DX: R06.02 Shortness of breath (principal) | CPT/HCPCS: 71046 ==

== ENCOUNTER 2025-03-03 20:18 | Emergency (ER) | payer OTHER, SELFPAY ==
[2025-03-03 20:20] VITALS: BP 159/88; PULSE 111; RESP 16; TEMP 36.8; O2SAT 97; BMI 29.4
[2025-03-03 21:06] LABS: MANUAL DIFF FLAG NO
[2025-03-03 21:07] LABS: Hematocrit 36.0 % (37.0-47.0); Hemoglobin 12.2 g/dl (12.0-16.0); Imm Gran Abs Auto 0.03 X10*3/uL (0.00-0.03); Imm Gran Pct Auto 0.2 % (0.0-0.4); Lymphocytes Absolute Auto 3.8 X10*3/uL (1.2-4.9); Mean Corpuscular HGB Conc 33.9 g/dl (31.0-35.0); Mean Corpuscular Hemoglobin 27.4 pg (27.0-33.0); Mean Corpuscular Volume 80.7 fL (80.0-98.0); NRBC Abs Auto 0.000 X10*3/uL (0.0-0.012); NRBC Pct Auto 0.0 /100WBC (0.0-0.2); Platelet Count 302 X10*3/uL (160-400); Red Blood Count 4.46 X10*6/uL (4.20-5.50); White Blood Count 12.4 X10*3/uL (4.8-10.8)
[2025-03-03 21:19] LABS: Anion Gap 13 (12-20); Blood Urea Nitrogen 16 mg/dL (9-16); Calcium 9.4 mg/dL (8.4-10.2); Carbon Dioxide 29 mmol/L (22-29); Chloride 106 mmol/L (96-108); Creatinine Clr Calc Pharmacy 51.8; Estimated Glomerular Filt Rate 52; Potassium 3.3 mmol/L (3.3-5.1); Sodium 145 mmol/L (135-145)
[2025-03-03] MEDS: Lactated Ringers 1,000 ML 999 ML IV (22:28)
[2025-03-03 22:43] LABS: Appearance Urine Clear; Glucose Urine UA Negative (Negative); PH 5.5 (5.0-9.0); Specific Gravity - Urine 1.025 (1.005-1.025)
[2025-03-03 23:27] VITALS: BP 140/83; PULSE 80; RESP 20; TEMP 36.4; O2SAT 99
--- NOTE | 2025-03-03 23:51 | ED.ABDPAIN ---
HPI - Abdominal Pain General Chief Complaint: Abdominal Pain Stated Complaint: Nausea/back pain Time Seen by Provider: 03/03/25 21:39 Source: patient Mode of arrival: ambulatory History of Present Illness ED Provider: Dr. Marilou Martinez HPI narrative: 54-year-old female with history of asthma, chronic abdominal pain, fibromyalgia and hypertension presenting with left flank pain radiating into the left upper abdomen ongoing for the last 2 days. Describes nausea but no vomiting. Also describes urinary frequency. Was seen by the urologist about a month ago and told she had ?inflammation of her kidneys?. Was never diagnosed with a kidney stone though. Denies recent fevers or chills, cough or cold-type symptoms, chest pain, difficulty breathing, vaginal bleeding, hematochezia or melena. Has an appointment with her primary care doctor this week. Does admit to some constipation. Last bowel movement was about a week ago. Related Data Previous Rx's ?Medication ?Instructions ?Recorded cane #1 ea 09/06/22 acetaminophen 500 mg tablet 1,000 mg (2 x 500 mg) PO TID PRN 10/07/22 pain #20 tabs underpads (Bed Underpads) #100 ea 03/28/23 walker #1 ea 03/28/23 naloxone 10 mg/0.4 mL 2 mg (0.08 mL) subcut Q3M 30 days 01/09/24 injection,auto-injector #4 mL nebulizers (AeroEclipse II #1 ea 04/03/24 Nebulizer) riboflavin (vitamin B2) 400 mg 400 mg PO DAILY 30 days #30 tabs 04/16/24 tablet cholecalciferol (vitamin D3) 50 50 mcg PO DAILY 90 days #90 tabs 04/24/24 mcg (2,000 unit) tablet olopatadine 0.7 % eye drops 1 drp ophthalmic (eye) Q24H PRN 08/11/24 (Pataday Once Daily Relief) itching #5 mL albuterol sulfate 90 mcg/actuation 2 puff inhalation Q4-6H PRN 10/03/24 aerosol inhaler shortness of breath or wheezing #6.7 grams diphenhydramine HCl 25 mg capsule 50 mg (2 x 25 mg) PO Q6H PRN 10/06/24 allergic reaction #20 caps epinephrine 0.3 mg/0.3 mL 0.3 mg (0.3 mL) IM Q10M PRN 10/06/24 injection, auto-injector (EpiPen anaphylaxis #2 ea 2-Pantera) menthol 0.1 % lotion (Eucerin Itch 1 ea topical BID 14 days #250 mL 10/06/24 Relief) fexofenadine 180 mg tablet 180 mg PO DAILY #90 tabs 10/09/24 (Gemini Allergy) hydrocortisone 2.5 % topical 1 appl topical BID-TID PRN itching 10/09/24 ointment #454 grams rimegepant 75 mg disintegrating 75 mg PO ONCE PRN migraine 10/24/24 tablet (Nurtec ODT) headache 30 days #15 tabs magnesium oxide 400 mg (241.3 mg 400 mg PO BEDTIME 30 days #30 tabs 10/28/24 magnesium) tablet blood pressure monitor (Blood #1 ea 11/21/24 Pressure Kit) meclizine 25 mg tablet 25 mg PO TID #20 tabs 12/03/24 paroxetine HCl 10 mg tablet 10 mg PO DAILY #30 tabs 12/18/24 fluticasone propionate 50 2 spray intranasal DAILY PRN nasal 12/27/24 mcg/actuation nasal congestion #16 grams spray,suspension (Flonase Allergy Relief) ghawihkbiu-yyvhfylmecjcj-bzxorkij 1 cap PO Q8H PRN migraine headache 01/25/25 50 mg-300 mg-40 mg capsule #10 caps (Fioricet) famotidine 20 mg tablet 20 mg PO DAILY PRN GERD #90 tabs 01/28/25 lactulose 10 gram/15 mL oral 10 g (15 mL) PO .COMPLEX 01/28/25 solution constipation #3,785 mL sennosides 8.6 mg-docusate sodium 2 tab-cap (2 x 8.6-50 mg) PO 01/28/25 50 mg capsule (Senna Plus) BEDTIME #180 caps clonazepam 0.5 mg tablet 0.5 mg PO BID PRN anxiety 30 days 01/29/25 #60 tabs azithromycin 500 mg tablet 500 mg PO DAILY 5 days #5 tabs 02/03/25 fluticasone fur. 200 mcg-umeclid 1 inh inhalation DAILY 30 days #60 02/03/25 62.5 mcg-vilant 25 mcg ea inhalat.powder (Trelegy Ellipta) loratadine 10 mg tablet (Claritin) 10 mg PO DAILY 30 days #30 tabs 02/03/25 fluticasone furoate 200 1 inh inhalation DAILY 30 days #60 02/04/25 mcg-vilanterol 25 mcg/dose ea inhalation powder (Breo Ellipta) umeclidinium 62.5 mcg/actuation 1 inh inhalation DAILY 30 days #30 02/04/25 blister powder for inhalation ea (Incruse Ellipta) prednisone 20 mg tablet 40 mg (2 x 20 mg) PO DAILY 4 days 02/05/25 #8 tabs prednisone 20 mg tablet 60 mg (3 x 20 mg) PO DAILY 3 days 02/08/25 #9 tabs zolpidem 5 mg tablet (Ambien) 5 mg PO BEDTIME #30 tabs 02/10/25 albuterol sulfate 2.5 mg/3 mL 2.5 mg (3 mL) inhalation Q4-6H PRN 02/12/25 (0.083 %) solution for nebulization bronchospasm #75 mL galcanezumab-gnlm 120 mg/mL 120 mg subcut Q30D 30 days #1 mL 02/13/25 subcutaneous pen injector (Emgality Pen) dicyclomine 20 mg tablet 20 mg PO TID #10 tabs 03/03/25 ondansetron 4 mg disintegrating 4 mg PO Q8H PRN nausea and 03/03/25 tablet vomiting #10 tabs hydrochlorothiazide 25 mg tablet 25 mg PO DAILY 90 days #90 tabs 03/05/25 hydroxyzine HCl 50 mg tablet 50 mg PO Q8H PRN nausea and 03/05/25 vomiting #90 tabs tramadol 50 mg tablet 50 mg PO BID PRN severe pain 03/06/25 (scale score 7-10) 3 days #6 tabs Allergies Allergy/AdvReac Type Severity Reaction Status Date / Time amitriptyline Allergy Intermediate headache Verified 03/05/25 14:02 ibuprofen (From Motrin) Allergy Intermediate ITCHY RASH Verified 03/05/25 14:02 shrimp Allergy Mild Unknown Verified 03/05/25 14:02 cat dander (cats) Allergy Rash Verified 03/05/25 14:02 seafood Allergy Unknown Verified 03/05/25 14:02 gabapentin AdvReac Intermediate vomiting Verified 09/18/25 14:02 Review of Systems Review of Systems As per HPI, full review of systems performed and negative but for the above mentioned pertinent positives and negatives. [facility] Past Medical History Medical History Dysphagia Moderate recurrent major depression Left sided abdominal pain Generalized pruritus Smoking 1/2 pack a day or less Asthma-COPD overlap syndrome Acute maxillary sinusitis Otitis externa Hospital discharge follow-up Microscopic hematuria Physical exam Goiter Blurry vision Tobacco dependence Has daytime drowsiness Pulmonary nodules Dyspnea Hand pain Skin lesion Leg pain, bilateral Dyslipidemia Epigastric pain Essential hypertension Cervical cancer screening GERD (gastroesophageal reflux disease) HTN (hypertension) Migraine Anxiety Depression Right lower quadrant pain Fibromyalgia Surgical History Previous section History of breast lump/mass excision History of lithotripsy H/O LEEP H/O tubal ligation Family History Family History Father Myocardial infarction Mother Lung cancer Brother Liver cancer Maternal Grandfather Stomach cancer Maternal Grandmother No problems noted. Social History Social History Housing: Apartment Alcohol intake: never Patient Tobacco Use Status: Current someday Tobacco user Tobacco use type: Cigarette Cigarette Packs Per Day: 0.25 Cigarettes Per Day: 3 e-Cigarette/Vaping Use: Never Used Second Hand Smoke Exposure: Yes service: No Current occupational status: disabled Gender identity: Female Cognitive needs: No Hearing needs: No Vision needs: No Physical Exam ED Exam Exam: GENERAL: Chronically ill-appearing, conversant, no acute distress. SKIN: Normal skin color for ethnicity, warm, dry, no rashes noted. HEENT: Normocephalic, atraumatic, no stridor, posterior oropharynx nonerythematous, EOMI. NECK: Soft, supple, full ROM, midline structures nontender, no step-offs, no deformities, no lymphadenopathy. CHEST: Heart regular rate and rhythm, no murmurs, symmetric chest rise and fall. PULMONARY: Clear to auscultation bilaterally, no labored breathing, no wheezes/rhales/ rhonchi. ABDOMINAL: Soft, nondistended, nontender, positive bowel sounds in all quadrants. : Deferred. MUSCULOSKELETAL: Normal tone, full range of motion, no deformities, no peripheral edema. NEURO: Alert and oriented to person, CN II through XII intact, no focal neurologic deficits. PSYCHIATRIC: Flat affect, fluid speech, appropriate demeanor. Vital Signs: Vital Signs - 24 hr 03/03/25 20:20 03/03/25 23:27 Temperature 98.2 F 97.6 F Pulse Rate 111 H 80 Respiratory Rate 16 20 Blood Pressure 159/88 H 140/83 H Pulse Oximetry 97 99 Oxygen Delivery Method Room Air Room Air BMI result Body Mass Index 29.4 Medical Decision Making Medical Decision Making [facility] Narrative: Patient presented today with a chief complaint of flank pain. Differential diagnosis is certainly broad and includes but is not limited to kidney stone, infection such as pyelonephritis, vascular pathology, among many others. Workup today is reassuring. No evidence of kidney stones or UTI. She does have some substantial constipation. We will treat with laxative and prescribe medications for home. She is feeling significantly improved. Discharged in stable condition. Differential Diagnosis Differential Diagnoses: The differential diagnosis associated with the presentation includes (As above) Admission/Observation Consideration of admission/observation: Escalation of care including admission/observation considered Lab Data [facility] Lab Attestation statement: I reviewed the patient's lab results. 03/03/25 20:54 03/03/25 20:54 Labs: Lab Results 03/03/25 03/03/25 Range/Units 20:54 22:36 WBC 12.4 H (4.8-10.8) X10*3/uL RBC 4.46 (4.20-5.50) X10*6/uL Hgb 12.2 (12.0-16.0) g/dl Hct 36.0 L (37.0-47.0) % MCV 80.7 (80.0-98.0) fL MCH 27.4 (27.0-33.0) pg MCHC 33.9 (31.0-35.0) g/dl RDW 14.8 (11.0-16.0) % Plt Count 302 (160-400) X10*3/uL MPV 9.8 (9.4-12.3) fL Immature Gran % (Auto) 0.2 (0.0-0.4) % Neut % (Auto) 61.1 (45-73) % Lymph % (Auto) 30.7 (20-40) % [place] % (Auto) 6.4 (2-11) % Eos % (Auto) 1.0 (0-4) % Baso % (Auto) 0.6 (0-2) % Lymph # (Auto) 3.8 (1.2-4.9) X10*3/uL [place] # (Auto) 0.8 (0.1-1.2) X10*3/uL Eos # (Auto) 0.1 (0.0-0.4) X10*3/uL Baso # (Auto) 0.1 (0.0-0.2) X10*3/uL Abs Immat Gran (auto) 0.03 (0.00-0.03) X10*3/uL Absolute Neuts (auto) 7.6 (2.0-8.3) x10*3/uL Absolute Nucleated RBC 0.000 (0.0-0.012) X10*3/uL Nucleated RBC % (auto) 0.0 (0.0-0.2) /100WBC Sodium 145 (135-145) mmol/L Potassium 3.3 (3.3-5.1) mmol/L Chloride 106 (96-108) mmol/L Carbon Dioxide 29 (22-29) mmol/L Anion Gap 13 (12-20) BUN 16 (9-16) mg/dL Creatinine 1.09 (0.5-1.4) mg/dL Estim Creat Clear Calc 51.8 Estimated GFR 52 Random Glucose 117 H (60-115) mg/dL Calcium 9.4 (8.4-10.2) mg/dL Urine Color Dark Yellow Urine Appearance Clear Urine pH 5.5 (5.0-9.0) Ur Specific [place] 1.025 (1.005-1.025) Urine Protein Negative (Neg-Trace) mg/dL Urine Glucose (UA) Negative (Negative) mg/dL Urine Ketones Negative (Negative) mg/dL Urine Blood Negative (Negative) Urine Nitrite Negative (Negative) Ur Leukocyte Esterase Negative (Negative) External Record Review External record reviewed: Inpatient record Prescription Management I considered prescription management with: Pain Medication and Other (Antiemetics) Chronic Conditions Patient?s care impacted by: Hypertension and Other (Fibromyalgia) Medications Administered Discontinued Medications Generic Name Dose Route Start Last Admin Trade Name Horacio PRN Reason Stop Dose Admin Lactated Ringer's 1,000 mls @ 999 mls/hr 03/03/25 22:15 03/03/25 23:33 Lr IV 03/03/25 23:15 Infused .Q1H1M ONE Infusion Acetaminophen 1,000 mg in 100 mls @ 400 mls/hr 03/03/25 22:15 03/03/25 23:33 Ofirmev IV 03/03/25 22:29 Infused ONCE ONE Infusion Metoclopramide HCl 10 mg 03/03/25 22:15 03/03/25 22:32 Metoclopramide Hcl 10 Mg/2 Ml Vial IVPUSH 03/03/25 22:16 10 mg ONCE ONE Administration Discharge Plan Discharge Clinical Impression: Left sided abdominal pain, Constipation Patient Disposition: Home, Self-Care Additional Instructions: Follow up with your primary care doctor as scheduled. Return to the hospital with any fevers, worsening pain or inability to tolerate food or drink. Constipation Remedy 1 Lb prunes 1 Lb pitless dates 1 Lb raisins 16 teabags Smooth Move tea brewed in 2 cups water 1 Cup brown sugar 1 Cup lemon juice Mix in a blender operator Put in freezer (never completely freezes) Can be used as a spread on crackers, toast, etc. (about 1-2 tablespoons per dose) Prescriptions: New dicyclomine 20 mg tablet 20 mg PO TID Qty: 10 0RF ondansetron 4 mg tablet,disintegrating 4 mg PO Q8H PRN (Reason: nausea and vomiting) Qty: 10 0RF No Action (DME) cane Device See Rx Instructions .Route Qty: 1 0RF Rx Instructions: As directed (DME) walker Misc See Rx Instructions .Route Qty: 1 0RF Rx Instructions: To be use lifetime (DME) underpads [Bed Underpads] Pad See Rx Instructions .Route Qty: 100 0RF Rx Instructions: As directed naloxone 10 mg/0.4 mL auto-injector 2 mg subcut Q3M 30 Days Qty: 4 0RF Rx Instructions: until desired response riboflavin (vitamin B2) 400 mg tablet 400 mg PO DAILY 30 Days Qty: 30 6RF cholecalciferol (vitamin D3) 50 mcg (2,000 unit) tablet 50 mcg PO DAILY 90 Days Qty: 90 1RF Nurtec ODT 75 mg tablet,disintegrating 75 mg PO ONCE MDD 1 tab PRN (Reason: migraine headache) 30 Days Qty: 15 6RF Rx Instructions: Prior authorization approved through 04/22/2025 ([facility] [place]) blood pressure monitor [Blood Pressure Kit] Kit See Rx Instructions .ROUTE .MEDSUPPLY Qty: 1 0RF Rx Instructions: As directed clonazepam 0.5 mg tablet 0.5 mg PO BID PRN (Reason: anxiety) 30 Days Qty: 60 1RF Incruse Ellipta 62.5 mcg/actuation blister with device 1 inh inhalation DAILY 30 Days Qty: 30 11RF fluticasone furoate-vilanterol [Breo Ellipta] 200-25 mcg/dose blister with device 1 inh inhalation DAILY 30 Days Qty: 60 11RF Emgality Pen 120 mg/mL pen injector 120 mg subcut Q30D 30 Days Qty: 1 6RF Rx Instructions: Maintenance dose of 120 mg subcu q.month. [place] APPROVED 12/04/24-06/05/25 hydroxyzine HCl 50 mg tablet 50 mg PO Q8H PRN (Reason: nausea and vomiting) Qty: 90 1RF tramadol 50 mg tablet 50 mg PO BID PRN (Reason: severe pain (scale score 7-10)) 3 Days Qty: 6 0RF acetaminophen 500 mg tablet 1,000 mg PO TID PRN (Reason: pain) Qty: 20 0RF csrgnuakhl-ufxciqtsxlcke-atzm [Fioricet] 50-300-40 mg capsule 1 cap PO Q8H PRN (Reason: migraine headache) Qty: 10 0RF prednisone 20 mg tablet 40 mg PO DAILY 4 Days Qty: 8 0RF prednisone 20 mg tablet 60 mg PO DAILY 3 Days Qty: 9 0RF albuterol sulfate 90 mcg/actuation HFA aerosol inhaler 2 puff inhalation Q4-6H PRN (Reason: shortness of breath or wheezing) Qty: 6.7 0RF meclizine 25 mg tablet 25 mg PO TID Qty: 20 0RF fluticasone propionate [Flonase Allergy Relief] 50 mcg/actuation spray,suspension 2 spray intranasal DAILY PRN (Reason: nasal congestion) Qty: 16 0RF Rx Instructions: administer into each nostril albuterol sulfate 2.5 mg /3 mL (0.083 %) solution for nebulization 2.5 mg inhalation Q4-6H PRN (Reason: bronchospasm) Qty: 75 0RF diphenhydramine HCl 25 mg capsule 50 mg PO Q6H PRN (Reason: allergic reaction) Qty: 20 0RF epinephrine [EpiPen 2-Pantera] 0.3 mg/0.3 mL auto-injector 0.3 mg IM Q10M PRN (Reason: anaphylaxis) Qty: 2 0RF Rx Instructions: for 3 doses Eucerin Itch Relief 0.1 % lotion 1 ea topical BID 14 Days Qty: 250 0RF hydrocortisone 2.5 % ointment 1 appl topical BID-TID PRN (Reason: itching) Qty: 454 1RF fexofenadine [Gemini Allergy] 180 mg tablet 180 mg PO DAILY Qty: 90 1RF magnesium oxide 400 mg (241.3 mg magnesium) tablet 400 mg PO BEDTIME 30 Days Qty: 30 6RF Rx Instructions: may hold for loose stools hydrochlorothiazide 25 mg tablet 25 mg PO DAILY 90 Days Qty: 90 1RF (DME) nebulizers [AeroEclipse II Nebulizer] Misc See Rx Instructions .Route Qty: 1 0RF Rx Instructions: As directed Pataday Once Daily Relief 0.7 % drops 1 drp ophthalmic (eye) Q24H PRN (Reason: itching) Qty: 5 0RF paroxetine HCl 10 mg tablet 10 mg PO DAILY Qty: 30 2RF loratadine [Claritin] 10 mg tablet 10 mg PO DAILY 30 Days Qty: 30 11RF Trelegy Ellipta 200-62.5-25 mcg blister with device 1 inh inhalation DAILY 30 Days Qty: 60 12RF azithromycin 500 mg tablet 500 mg PO DAILY 5 Days Qty: 5 0RF lactulose 10 gram/15 mL solution 10 g PO .COMPLEX Qty: 3785 0RF Rx Instructions: Take 15-30mL daily for constipation. Senna Plus 8.6-50 mg capsule 2 tab-cap PO BEDTIME Qty: 180 1RF Rx Instructions: Take two tablets at bedtime famotidine 20 mg tablet 20 mg PO DAILY PRN (Reason: GERD) Qty: 90 0RF Rx Instructions: Take one tablet as needed for acid reflux zolpidem [Ambien] 5 mg tablet 5 mg PO BEDTIME Qty: 30 1RF Interventions: ED Discharge Assessment Last Done: 03/04/25 00:03 Discharge Date/Time: 03/04/25 00:05 Print Language: Kazakh
[2025-03-04 00:03] VITALS: BP 140/83; PULSE 80; RESP 20; TEMP 36.4; O2SAT 99
== END 2025-03-04 00:05 | disposition home or self-care (01) ==
PROVIDERS: Emergency Provider Emergency Medicine; PCP Internal Medicine
DX: K59.00 Constipation, unspecified (principal); R10.12 Left upper quadrant pain; R11.0 Nausea; R35.0 Frequency of micturition
CPT/HCPCS: 36415; 80048; 81003; 85025; 96361; 96374; 96375; 99284; 99285; J0131; J2765; J7120

== ENCOUNTER 2025-03-05 13:25 | Outpatient (AMB) | payer OTHER, SELFPAY ==
[2025-03-05 13:30] VITALS: BP 150/86; PULSE 90; RESP 18; TEMP 36.2; O2SAT 98; BMI 29.7
--- NOTE | 2025-03-05 13:30 | MHC.PC.OV ---
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: No Accompanied by: Self / Same As Patient Allergies amitriptyline Allergy (Intermediate, Verified 03/05/25 14:02) headache ibuprofen (From Motrin) Allergy (Intermediate, Verified 03/05/25 14:02) ITCHY RASH shrimp Allergy (Mild, Verified 03/05/25 14:02) Unknown cat dander (cats) Allergy (Verified 03/05/25 14:02) Rash seafood Allergy (Verified 03/05/25 14:02) Unknown gabapentin Adverse Reaction (Intermediate, Verified 03/05/25 14:02) vomiting Medication List - Last Reconciled 03/05/25 by Neyda Peres MD acetaminophen 1,000 mg (2 x 500 mg) PO TID PRN albuterol sulfate 90 mcg/actuation 2 puffs inhalation Q4-6H PRN albuterol sulfate 2.5 mg (3 mL) inhalation Q4-6H PRN azithromycin 500 mg PO DAILY 5 days blood pressure monitor (Blood Pressure Kit) As directed hbibbqubtb-ygbmhmgumgfou-arfw 50-300-40 mg (Fioricet) 1 cap PO Q8H PRN cane As directed cholecalciferol (vitamin D3) 50 mcg PO DAILY 90 days clonazepam 0.5 mg PO BID PRN 30 days dicyclomine 20 mg PO TID diphenhydramine HCl 50 mg (2 x 25 mg) PO Q6H PRN epinephrine (EpiPen 2-Pantera) 0.3 mg (0.3 mL) IM Q10M PRN famotidine 20 mg PO DAILY PRN fenofibrate 54 mg PO DAILY 90 days fexofenadine (Gemini Allergy) 180 mg PO DAILY fluticasone furoate-vilanterol 200-25 mcg/dose (Breo Ellipta) 1 inh inhalation DAILY 30 days fluticasone propionate 50 mcg/actuation (Flonase Allergy Relief) 2 sprays intranasal DAILY PRN ophnnpkyiqr-popelwepz-xihvdlgk 200-62.5-25 mcg (Trelegy Ellipta) 1 inh inhalation DAILY 30 days galcanezumab-gnlm (Emgality Pen) 120 mg subcut Q30D 30 days hydrochlorothiazide 12.5 mg PO DAILY 90 days hydrocortisone 2.5% 1 appl topical BID-TID PRN hydroxyzine HCl 50 mg PO Q8H PRN lactulose Take 15-30mL daily for constipation. loratadine (Claritin) 10 mg PO DAILY 30 days magnesium oxide 400 mg PO BEDTIME 30 days meclizine 25 mg PO TID menthol 0.1% (Eucerin Itch Relief) 1 ea topical BID 14 days naloxone 2 mg (0.08 mL) subcut Q3M 30 days nebulizers (Aero[employer]se II Nebulizer) As directed olopatadine 0.7% (Pataday Once Daily Relief) 1 drp ophthalmic (eye) Q24H PRN ondansetron 4 mg PO Q8H PRN paroxetine HCl 10 mg PO DAILY prednisone 40 mg (2 x 20 mg) PO DAILY 4 days prednisone 60 mg (3 x 20 mg) PO DAILY 3 days riboflavin (vitamin B2) 400 mg PO DAILY 30 days rimegepant (Nurtec ODT) 75 mg PO ONCE PRN 30 days MDD 1 tab sennosides-docusate sodium 8.6-50 mg (Senna Plus) 2 tab-caps (2 x 8.6-50 mg) PO BEDTIME tramadol 50 mg PO BID PRN 30 days umeclidinium 62.5 mcg/actuation (Incruse Ellipta) 1 inh inhalation DAILY 30 days underpads (Bed Underpads) As directed walker To be use lifetime zolpidem (Ambien) 5 mg PO BEDTIME Tobacco use date assessed: 03/05/25 Dental Screening Dental Screen Date: 03/05/25 Did you have a dental visit in the last 12 months?: Yes Did you have a dental problem in the last 6 months where you did not have access to dental care?: No Was dental information given to patient?: Patient has dentist HPI HPI Comments History of Present Illness Details This is a 54-year-old female with moderate recurrent major depression, anxiety, hypertension and mild tramadol use disorder that comes today for follow-up on her conditions. Depression with anxiety is follow by psych outpatient and has been stable. Blood pressure elevated and I will increase hydrochlorothiazide and blood pressure will be recheck by nurse navigator in 3 weeks. On tramadol for her chronic pain and fibromyalgia. Signed pain management contract today. [facility]LY [facility] Medical History (Updated 03/05/25 @ 14:28 by Neyda Peres MD) Dysphagia Moderate recurrent major depression Left sided abdominal pain Generalized pruritus Smoking 1/2 pack a day or less Asthma-COPD overlap syndrome Acute maxillary sinusitis Otitis externa Hospital discharge follow-up Microscopic hematuria Physical exam Goiter Blurry vision Tobacco dependence Has daytime drowsiness Pulmonary nodules Dyspnea Hand pain Skin lesion Leg pain, bilateral Dyslipidemia Epigastric pain Essential hypertension Cervical cancer screening GERD (gastroesophageal reflux disease) HTN (hypertension) Migraine Anxiety Depression Right lower quadrant pain Fibromyalgia Surgical History Previous section History of breast lump/mass excision History of lithotripsy H/O LEEP H/O tubal ligation Family History Father Myocardial infarction Mother Lung cancer Brother Liver cancer Maternal Grandfather Stomach cancer Maternal Grandmother No problems noted. Social History Housing: Apartment Alcohol intake: never Patient Tobacco Use Status: Current someday Tobacco user Tobacco use type: Cigarette Cigarette Packs Per Day: 0.25 Cigarettes Per Day: 3 e-Cigarette/Vaping Use: Never Used Second Hand Smoke Exposure: Yes service: No Current occupational status: disabled Gender identity: Female Cognitive needs: No Hearing needs: No Vision needs: No Female Reproductive History Menstrual Age of Menarche: 9 Questionnaire PHQ-9 Over the last 2 weeks, how often have you been bothered by any of the following problems? 1. Little interest or pleasure in doing things: several days 2. Feeling down, depressed, or hopeless: several days 3. Trouble falling or staying asleep, or sleeping too much: several days 4. Feeling tired or having little energy: more than half the days 5. Poor appetite or overeating: several days 6. Feeling bad about yourself - or that you are a failure or have let yourself or your family down: several days 7. Trouble concentrating on things, such as reading the newspaper or watching television: several days 8. Moving or speaking so slowly that other people could have noticed. Or the opposite - being so fidgety or restless that you have been moving around a lot more than usual: several days 9. Thoughts that you would be better off or of hurting yourself in some way: not at all Total score: 9 Depression Screening Interpretation: Positive Depression Screening Follow-up: Existing condition and Follow-up Visit Requested Depression Screening Done: Yes 51483 - PHQ-9 Billing: Yes Source: Developed by Drs. Sylvester Merlos, Eve Mcclelland, Joby King and colleagues, with an educational pili from [facility]. Thrive Questionnaire Date Thrive assessed: 10/28/24 I am a: Patient What is your living situation today?: I choose not to answer this question Within the past 12 months, did the food you bought not last and you didn't have the money to get more?: Sometimes True Within the past 12 months, did you worry whether your food would run out before you got money to buy more?: Sometimes True Do you have trouble paying for medicines?: No Do you have trouble getting transportation to medical appointments?: Yes Do you have trouble paying your heating and electricity bill?: No Do you have trouble taking care of your child, family member or friend?: No Do you have trouble with day-to-day activities such as bathing, preparing meals, shopping, managing finances, etc.?: Yes Are you currently unemployed and looking for a job?: No Are you interested in more education?: No Currently or been in a relationship where the following occur: No concerns reported THRIVE Score: 3 AUDIT C Alcohol Use Questionnaire (AUDIT-C) 1. How often do you have a drink containing alcohol?: Never Total Score: 0 Score Reviewed/Action Taken: No JOHN-7 AMB Questionnaire JOHN-7 Date JOHN - 7 assessed: 10/28/24 Feeling nervous, anxious, or on edge: 2 = More than half the days Not being able to stop or control worryin = Several days Worrying too much about different things: 1 = Several days Trouble relaxin = More than half the days Being so restless that it is hard to sit still: 2 = More than half the days Becoming easily annoyed or irritable: 2 = More than half the days Feeling afraid as if something awful might happen: 2 = More than half the days Total JOHN-7 score (0-4 normal; 5-9 mild; 10-14 moderate; 15-21 severe): 12 Source: Developed by Drs. Sylvester Merlos, Eve Mcclelland, Joby King and colleagues, with an educational pili from [facility]. JOHN-7 Assessment Billing JOHN-7 Assessment Tool: JOHN-7 Assessment 12222 Physical exam (Primary Care) Vital Signs: Last Vital Signs Temp 97.1 F 03/05/25 13:30 Pulse 90 03/05/25 13:30 Resp 18 03/05/25 13:30 BP 150/86 H 03/05/25 13:30 Pulse Ox 98 03/05/25 13:30 Oxygen Delivery Method Room Air 03/05/25 13:30 BMI result Body Mass Index 29.7 Tobacco/Smoking Status: Tobacco use Status Tobacco use date assessed 03/05/25 03/05/25 13:49 Patient Tobacco Use Status Current someday Tobacco 03/05/25 13:49 Tobacco use type Cigarette 03/05/25 13:49 e-Cigarette/Vaping Use Never Used 03/05/25 13:49 PHQ-9: PHQ-9 Score PHQ-9: Total score 9 03/05/25 14:03 Depression Screening Interpretation: Positive Depression Screening Follow-up: Existing condition and Follow-up Visit Requested Thrive Assessment: Date of Thrive Assessment Date Thrive assessed 10/28/24 03/05/25 13:49 Currently or been in a relationship where the following occur: No concerns reported Coding Level of Care Code Est Pt Level 4 (43606) Complex EM visit Add On G2211 Diagnoses Moderate recurrent major depression F33.1 Generalized anxiety disorder F41.1 Mild tramadol use disorder F11.10 Essential hypertension I10 Additional Codes JOHN-7 Assessment Billing - JOHN-7 Assessment Tool: JOHN-7 Assessment 43052 ([id number]) PHQ-9 - 01217 - PHQ-9 Billing: Yes ([id number]) Time Spent (min) 24 Assessment & Plan Assessment & Plan (1) Moderate recurrent major depression: Code(s): F33.1 - Major depressive disorder, recurrent, moderate Category: Medical (2) Generalized anxiety disorder: Comment: has counselling Code(s): F41.1 - Generalized anxiety disorder Category: Medical (3) Mild tramadol use disorder: Comment: Pain management contract signed 01/03/2024 and urine toxicology done. Code(s): F11.10 - Opioid abuse, uncomplicated Category: Medical (4) Essential hypertension: Code(s): I10 - Essential (primary) hypertension Category: Medical Plan Increase hydrochlorothiazide to 25 mg once a day. Continue tramadol for mild tramadol use disorder. She follows with psych outpatient for her for her depression with anxiety. She was advised to go to ER only if she has an emergency. Orders: Orders Comprehensive [place]. Panel Fast Today F32.1 - Major depressive disorder, single episode, moderate Lipid Panel Today E78.5 - Hyperlipidemia, unspecified Complete Blood Count Auto Diff Today D64.9 - Anemia, unspecified Thyroid Stimulating Hormone Today R63.5 - Abnormal weight gain Medications: New hydrochlorothiazide 25 mg PO DAILY 90 tabs 1RF 90 days Refilled tramadol 50 mg PO BID PRN 60 tabs 0RF severe pain (scale score 7-10) 30 days Discontinued hydrochlorothiazide Discontinued Reason: Patient Completed Course 12.5 mg PO DAILY 90 days 90 tabs 3RF fenofibrate Discontinued Reason: Patient Completed Course 54 mg PO DAILY 90 days 90 tabs 1RF E78.2 - Mixed hyperlipidemia
== END 2025-03-05 14:40 | disposition home or self-care (01) ==
LOC: HO.HMCH 13:26
PROVIDERS: PCP Internal Medicine; Visit Provider Internal Medicine
DX: F33.1 Major depressive disorder, recurrent, moderate (principal); F41.1 Generalized anxiety disorder; F11.10 Opioid abuse, uncomplicated; I10 Essential (primary) hypertension

== ENCOUNTER → 2025-03-05 13:25 | Outpatient (BNVA) | payer OTHER, SELFPAY | PROVIDERS: PCP Internal Medicine; Visit Provider Internal Medicine | DX: I10 Essential (primary) hypertension (principal); F33.1 Major depressive disorder, recurrent, moderate; F41.1 Generalized anxiety disorder; F11.10 Opioid abuse, uncomplicated; D64.9 Anemia, unspecified; E78.2 Mixed hyperlipidemia | CPT/HCPCS: 96127; 99212 ==

== ENCOUNTER 2025-03-23 13:26 | Outpatient (AMB) | payer OTHER, SELFPAY ==
[2025-03-23 13:36] VITALS: BP 124/98; PULSE 99; O2SAT 98; BMI 29.3
--- NOTE | 2025-03-23 13:36 | MHC.PC.OV ---
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 Public Required: No Accompanied by: Self / Same As Patient Allergies amitriptyline Allergy (Intermediate, Verified 03/23/25 13:46) headache ibuprofen (From Motrin) Allergy (Intermediate, Verified 03/23/25 13:46) ITCHY RASH shrimp Allergy (Mild, Verified 03/23/25 13:46) Unknown cat dander (cats) Allergy (Verified 03/23/25 13:46) Rash seafood Allergy (Verified 03/23/25 13:46) Unknown gabapentin Adverse Reaction (Intermediate, Verified 03/23/25 13:46) vomiting Medication List - Last Reconciled 03/23/25 by Neyda Peres MD acetaminophen 1,000 mg (2 x 500 mg) PO TID PRN albuterol sulfate 90 mcg/actuation 2 puffs inhalation Q4-6H PRN albuterol sulfate 2.5 mg (3 mL) inhalation Q4-6H PRN azithromycin 500 mg PO DAILY 5 days blood pressure monitor (Blood Pressure Kit) As directed fhtuwwupfi-arcomjnknesiy-ssmm 50-300-40 mg (Fioricet) 1 cap PO Q8H PRN cane As directed cholecalciferol (vitamin D3) 50 mcg PO DAILY 90 days clonazepam 0.5 mg PO BID PRN 30 days dicyclomine 20 mg PO TID diphenhydramine HCl 50 mg (2 x 25 mg) PO Q6H PRN epinephrine (EpiPen 2-Pantera) 0.3 mg (0.3 mL) IM Q10M PRN famotidine 20 mg PO DAILY PRN fexofenadine (Gemini Allergy) 180 mg PO DAILY fluticasone furoate-vilanterol 200-25 mcg/dose (Breo Ellipta) 1 inh inhalation DAILY 30 days fluticasone propionate 50 mcg/actuation (Flonase Allergy Relief) 2 sprays intranasal DAILY PRN aqeescdgoll-vkucwpfxi-gefidkty 200-62.5-25 mcg (Trelegy Ellipta) 1 inh inhalation DAILY 30 days galcanezumab-gnlm (Emgality Pen) 120 mg subcut Q30D 30 days hydrochlorothiazide 25 mg PO DAILY 90 days hydrocortisone 2.5% 1 appl topical BID-TID PRN hydroxyzine HCl 50 mg PO Q8H PRN lactulose Take 15-30mL daily for constipation. loratadine (Claritin) 10 mg PO DAILY 30 days magnesium oxide 400 mg PO BEDTIME 30 days meclizine 25 mg PO TID menthol 0.1% (Eucerin Itch Relief) 1 ea topical BID 14 days naloxone 2 mg (0.08 mL) subcut Q3M 30 days nebulizers (AeroEclipse II Nebulizer) As directed olopatadine 0.7% (Pataday Once Daily Relief) 1 drp ophthalmic (eye) Q24H PRN ondansetron 4 mg PO Q8H PRN paroxetine HCl 10 mg PO DAILY prednisone 40 mg (2 x 20 mg) PO DAILY 4 days prednisone 60 mg (3 x 20 mg) PO DAILY 3 days riboflavin (vitamin B2) 400 mg PO DAILY 30 days rimegepant (Nurtec ODT) 75 mg PO ONCE PRN 30 days MDD 1 tab sennosides-docusate sodium 8.6-50 mg (Senna Plus) 2 tab-caps (2 x 8.6-50 mg) PO BEDTIME tramadol 50 mg PO BID PRN 30 days umeclidinium 62.5 mcg/actuation (Incruse Ellipta) 1 inh inhalation DAILY 30 days underpads (Bed Underpads) As directed walker To be use lifetime zolpidem (Ambien) 5 mg PO BEDTIME Tobacco use date assessed: 03/23/25 Dental Screening Dental Screen Date: 03/23/25 Did you have a dental visit in the last 12 months?: Yes Did you have a dental problem in the last 6 months where you did not have access to dental care?: No Was dental information given to patient?: Patient has dentist HPI HPI Comments History of Present Illness Details The patient is a 54-year-old female presenting for management of multiple chronic conditions including hypertension, migraines, and fibromyalgia. The patient reports a history of allergic reactions to amitriptyline, ibuprofen, gabapentin, and seafood, which manifest as headaches, rashes, and vomiting. She uses Tylenol without adverse effects and has been prescribed clonazepam, diciclomine, and famotidine for various conditions. The patient has been experiencing migraines, for which she was prescribed injections by a neurologist, but discontinued due to abdominal pain. She is currently using Nurtec for migraine management, which she finds effective. Hypertension is managed with hydrochlorothiazide, which has been effective in controlling her blood pressure, although it lowers her potassium levels. She has stopped potassium supplements as recent tests showed normal levels, but plans to repeat the test due to previous fluctuations. The patient reports constipation, which she manages with dietary changes and occasional enemas. She underwent a biopsy in December, which was negative for malignancy, and an ultrasound showed kidney inflammation. Her depression is stable with paroxetine, and insomnia is controlled with Ambien as needed. She uses tramadol for fibromyalgia-related pain. ON LICENSE OF [facility] Medical History Dysphagia Moderate recurrent major depression Left sided abdominal pain Generalized pruritus Smoking 1/2 pack a day or less Asthma-COPD overlap syndrome Acute maxillary sinusitis Otitis externa Hospital discharge follow-up Microscopic hematuria Physical exam Goiter Blurry vision Tobacco dependence Has daytime drowsiness Pulmonary nodules Dyspnea Hand pain Skin lesion Leg pain, bilateral Dyslipidemia Epigastric pain Essential hypertension Cervical cancer screening GERD (gastroesophageal reflux disease) HTN (hypertension) Migraine Anxiety Depression Right lower quadrant pain Fibromyalgia Surgical History Previous section History of breast lump/mass excision History of lithotripsy H/O LEEP H/O tubal ligation Family History Father Myocardial infarction Mother Lung cancer Brother Liver cancer Maternal Grandfather Stomach cancer Maternal Grandmother No problems noted. Social History Housing: Apartment Alcohol intake: never Patient Tobacco Use Status: Current someday Tobacco user Tobacco use type: Cigarette Cigarette Packs Per Day: 0.25 Cigarettes Per Day: 3 e-Cigarette/Vaping Use: Never Used Second Hand Smoke Exposure: Yes service: No Current occupational status: disabled Gender identity: Female Cognitive needs: No Hearing needs: No Vision needs: No Female Reproductive History Menstrual Age of Menarche: 9 Questionnaire Thrive Questionnaire Date Thrive assessed: 10/28/24 I am a: Patient What is your living situation today?: I choose not to answer this question Within the past 12 months, did the food you bought not last and you didn't have the money to get more?: Sometimes True Within the past 12 months, did you worry whether your food would run out before you got money to buy more?: Sometimes True Do you have trouble paying for medicines?: No Do you have trouble getting transportation to medical appointments?: Yes Do you have trouble paying your heating and electricity bill?: No Do you have trouble taking care of your child, family member or friend?: No Do you have trouble with day-to-day activities such as bathing, preparing meals, shopping, managing finances, etc.?: Yes Are you currently unemployed and looking for a job?: No Are you interested in more education?: No Currently or been in a relationship where the following occur: No concerns reported THRIVE Score: 3 AUDIT C Alcohol Use Questionnaire (AUDIT-C) 1. How often do you have a drink containing alcohol?: Never 3. How often do you have six or more drinks on one occasion?: Never Total Score: 0 Score Reviewed/Action Taken: No JOHN-7 AMB Questionnaire JOHN-7 Date JOHN - 7 assessed: 10/28/24 Source: Developed by Drs. Sylvester Merlos, Eve Mcclelland, Joby King and colleagues, with an educational pili from [employer]. Review of Systems Const All systems reviewed & are unremarkable except as noted in HPI and below Card Denies chest pain at rest, Denies chest pain with activity, Denies edema, Denies irregular heart rhythm, Denies claudication, Denies dyspnea, Denies dyspnea on exertion, Denies orthopnea, Denies paroxysmal nocturnal dyspnea and Denies slow heart rate Resp Denies cough, Denies dyspnea and Denies dyspnea on exertion Physical exam (Primary Care) Vital Signs: Last Vital Signs Pulse 99 03/23/25 13:36 BP 124/98 H 03/23/25 13:36 Pulse Ox 98 03/23/25 13:36 Oxygen Delivery Method Room Air 03/23/25 13:36 BMI result Body Mass Index 29.3 Tobacco/Smoking Status: Tobacco use Status Tobacco use date assessed 03/23/25 03/23/25 13:41 Patient Tobacco Use Status Current someday Tobacco 03/23/25 13:41 Tobacco use type Cigarette 03/23/25 13:41 e-Cigarette/Vaping Use Never Used 03/23/25 13:41 Thrive Assessment: Date of Thrive Assessment Date Thrive assessed 10/28/24 03/23/25 13:41 Currently or been in a relationship where the following occur: No concerns reported Resp Effort & Inspection: normal respiratory effort Auscultation: clear to auscultation bilaterally Cardio Jugular venous distension: no JVD Rate: regular rate Rhythm: regular rhythm Heart sounds: S1 normal heart sound present and S2 normal heart sound present Extrem General: Yes full ROM Coding Level of Care Code Est Pt Level 4 (76296) Complex EM visit Add On G2211 Diagnoses Moderate recurrent major depression F33.1 Generalized anxiety disorder F41.1 Essential hypertension I10 Fibromyalgia M79.7 Chronic migraine without aura without status migrainosus, not intractable G43.709 Status migrainosus presence: without status migrainosus Intractability: not intractable Asthma-COPD overlap syndrome J44.89 Time Spent (min) 20 Assessment & Plan Assessment & Plan (1) Moderate recurrent major depression: Code(s): F33.1 - Major depressive disorder, recurrent, moderate Category: Medical (2) Generalized anxiety disorder: Comment: has counselling Code(s): F41.1 - Generalized anxiety disorder Category: Medical (3) Essential hypertension: Code(s): I10 - Essential (primary) hypertension Category: Medical (4) Fibromyalgia: Code(s): M79.7 - Fibromyalgia Category: Medical (5) Chronic migraine without aura: Code(s): G43.709 - Chronic migraine without aura, not intractable, without status migrainosus Category: Medical Qualifiers: Status migrainosus presence: without status migrainosus Intractability: not intractable Qualified Code(s): G43.709 - Chronic migraine without aura, not intractable, without status migrainosus (6) Asthma-COPD overlap syndrome: Code(s): J44.89 - Other specified chronic obstructive pulmonary disease Category: Medical Plan Plan Patient was informed and verbally consented to the use of an ambient scribe for clinic note documentation during this visit. 1. Hypertension Hypertension is managed with hydrochlorothiazide, which effectively controls blood pressure but may lower potassium levels. The patient will continue monitoring potassium levels and adjust supplements as needed. 2. Migraine The patient discontinued migraine injections due to abdominal pain and is currently using Nurtec, which she finds effective. 3. Constipation Constipation is managed with dietary changes and occasional enemas. 4. Depression Depression is stable with paroxetine, and insomnia is managed with Ambien as needed. 5. Fibromyalgia Fibromyalgia-related pain is managed with tramadol as needed. Orders: Orders Potassium Today I10 - Essential (primary) hypertension Complete Blood Count Auto Diff Today D64.9 - Anemia, unspecified
== END 2025-03-23 14:04 | disposition home or self-care (01) ==
LOC: HO.HMCH 13:27
PROVIDERS: PCP Internal Medicine; Visit Provider Internal Medicine
DX: J44.89 Other specified chronic obstructive pulmonary disease (principal); F33.1 Major depressive disorder, recurrent, moderate; F41.1 Generalized anxiety disorder; I10 Essential (primary) hypertension; M79.7 Fibromyalgia; G43.709 Chronic migraine without aura, not intractable, without status migrainosus

== ENCOUNTER → 2025-03-23 13:26 | Outpatient (BNVA) | payer OTHER, SELFPAY | PROVIDERS: PCP Internal Medicine; Visit Provider Internal Medicine | DX: N30.91 Cystitis, unspecified with hematuria (principal); R10.9 Unspecified abdominal pain; N32.89 Other specified disorders of bladder; I10 Essential (primary) hypertension; G43.909 Migraine, unspecified, not intractable, without status migrainosus; M79.7 Fibromyalgia; F33.1 Major depressive disorder, recurrent, moderate; F41.1 Generalized anxiety disorder; G43.709 Chronic migraine without aura, not intractable, without status migrainosus; J44.89 Other specified chronic obstructive pulmonary disease; K59.00 Constipation, unspecified | CPT/HCPCS: 52000; 81003; 99212 ==

== ENCOUNTER 2025-03-23 14:14 | Outpatient (AMB) | payer OTHER, SELFPAY ==
--- NOTE | 2025-03-23 14:22 | MHC.OFFVIS ---
Intake Visit Reasons: Cysto/CT Intake Note: pt here today for: Cysto blood thinner: Speech Language Pathologist Travel Required: Yes Speech Language Pathologist Travel Language: Communications Engineering Technician Name: Trvaon [id number] Information Interpreted: non-clinical & clinical Allergies amitriptyline Allergy (Intermediate, Verified 03/23/25 15:05) headache ibuprofen (From Motrin) Allergy (Intermediate, Verified 03/23/25 15:05) ITCHY RASH shrimp Allergy (Mild, Verified 03/23/25 15:05) Unknown cat dander (cats) Allergy (Verified 03/23/25 15:05) Rash seafood Allergy (Verified 03/23/25 15:05) Unknown gabapentin Adverse Reaction (Intermediate, Verified 03/23/25 15:05) vomiting Medication List - Last Reconciled 03/23/25 by Daisy Redding MD acetaminophen 1,000 mg (2 x 500 mg) PO TID PRN albuterol sulfate 90 mcg/actuation 2 puffs inhalation Q4-6H PRN albuterol sulfate 2.5 mg (3 mL) inhalation Q4-6H PRN azithromycin 500 mg PO DAILY 5 days blood pressure monitor (Blood Pressure Kit) As directed nvqmeonspy-hejippzxuhwkf-yuyt 50-300-40 mg (Fioricet) 1 cap PO Q8H PRN cane As directed cholecalciferol (vitamin D3) 50 mcg PO DAILY 90 days clonazepam 0.5 mg PO BID PRN 30 days dicyclomine 20 mg PO TID diphenhydramine HCl 50 mg (2 x 25 mg) PO Q6H PRN epinephrine (EpiPen 2-Pantera) 0.3 mg (0.3 mL) IM Q10M PRN famotidine 20 mg PO DAILY PRN fexofenadine (Gemini Allergy) 180 mg PO DAILY fluticasone furoate-vilanterol 200-25 mcg/dose (Breo Ellipta) 1 inh inhalation DAILY 30 days fluticasone propionate 50 mcg/actuation (Flonase Allergy Relief) 2 sprays intranasal DAILY PRN cnuvrzzxyko-xbwdfgbzf-vhhatktk 200-62.5-25 mcg (Trelegy Ellipta) 1 inh inhalation DAILY 30 days galcanezumab-gnlm (Emgality Pen) 120 mg subcut Q30D 30 days hydrochlorothiazide 25 mg PO DAILY 90 days hydrocortisone 2.5% 1 appl topical BID-TID PRN hydroxyzine HCl 50 mg PO Q8H PRN lactulose Take 15-30mL daily for constipation. loratadine (Claritin) 10 mg PO DAILY 30 days magnesium oxide 400 mg PO BEDTIME 30 days meclizine 25 mg PO TID menthol 0.1% (Eucerin Itch Relief) 1 ea topical BID 14 days naloxone 2 mg (0.08 mL) subcut Q3M 30 days nebulizers (AeroEclipse II Nebulizer) As directed olopatadine 0.7% (Pataday Once Daily Relief) 1 drp ophthalmic (eye) Q24H PRN ondansetron 4 mg PO Q8H PRN paroxetine HCl 10 mg PO DAILY prednisone 40 mg (2 x 20 mg) PO DAILY 4 days prednisone 60 mg (3 x 20 mg) PO DAILY 3 days riboflavin (vitamin B2) 400 mg PO DAILY 30 days rimegepant (Nurtec ODT) 75 mg PO ONCE PRN 30 days MDD 1 tab sennosides-docusate sodium 8.6-50 mg (Senna Plus) 2 tab-caps (2 x 8.6-50 mg) PO BEDTIME tramadol 50 mg PO BID PRN 30 days umeclidinium 62.5 mcg/actuation (Incruse Ellipta) 1 inh inhalation DAILY 30 days underpads (Bed Underpads) As directed walker To be use lifetime zolpidem (Ambien) 5 mg PO BEDTIME HPI Comments Details: 03/23/25--Peace is here for office cystoscopy. She was initially evaluated 01/12/2025 for microscopic hematuria. At that time I reviewed CT imaging performed on 12/06/2024 which noted mild left hydronephrosis with bladder wall thickening. At that time I discussed follow-up renal ultrasound to re-evaluate kidneys to confirm hydronephrosis has resolved. Renal ultrasound is still pending. Urinalysis today, persistent microscopic hematuria 1+ blood no signs of infection. Urine cytology - 01/12/25- negative for malignant cells. History of Present Illness The patient is a 54-year-old female presenting with microscopic hematuria. She was initially evaluated on January 12, 2025, for this condition. uring the initial evaluation, a CT scan performed on December 06, 2024, revealed mild left hydronephrosis and bladder wall thickening. A follow-up renal ultrasound was discussed to confirm if the hydronephrosis had resolved, but this is still pending. The patient continues to have persistent microscopic hematuria, as indicated by today's urinalysis showing 1+ blood with no signs of infection. She also reports pain along her left side, extending from the back towards the bladder. 20 minutes spent in review of records pertaining to this visit and including qgvx-fj-grrc discussion with the patient and documentation of this visit. Results - CT scan (12/06/24): Mild left hydronephrosis, bladder wall thickening - Urinalysis: Persistent microscopic hematuria, 1+ blood, no signs of infection Plan 1. Microscopic Hematuria - Continue monitoring with follow-up renal ultrasound to assess hydronephrosis resolution. - Prescribe estrogen cream to improve vaginal tissue health, which may help with urinary symptoms. 2. Mild Left Hydronephrosis - Follow-up renal ultrasound pending to confirm resolution of hydronephrosis. 3. Left sided back pain--- Advised patient to seek emergency care if pain worsens for quicker imaging and evaluation. 4. Bladder Wall Thickening - Cystoscopy performed; mild bladder wall thickening, no suspicious bladder lesions. 01/12/25--Telehealth visit--Peace is a Danish-speaking female 54-year-old who had a CT scan December 06 2024 that noted left hydronephrosis with bladder wall thickening suggestive of cystitis. There were no renal calculi noted. I have discussed further evaluation with office cystoscopy and repeat renal ultrasound. History of Present Illness - The patient is a 54-year-old female presenting with bladder wall thickening and left hydronephrosis. - A CT scan performed in November showed bladder wall thickening and left hydronephrosis, suggestive of cystitis. - No renal calculi were noted on the CT scan. - The patient has been advised to undergo further evaluation with office cystoscopy and repeat renal ultrasound. Results -CTAP - 12/06/24--1. Mild left hydronephrosis. No obstructing calculus identified. Recently passed stone versus infection. 2. Mild urinary bladder wall thickening raises the possibility of cystitis Plan - Schedule an office cystoscopy to evaluate the bladder wall thickening. - renal ultrasound to reassess the kidneys. [facility] Medical History Dysphagia Moderate recurrent major depression Left sided abdominal pain Generalized pruritus Smoking 1/2 pack a day or less Asthma-COPD overlap syndrome Acute maxillary sinusitis Otitis externa Hospital discharge follow-up Microscopic hematuria Physical exam Goiter Blurry vision Tobacco dependence Has daytime drowsiness Pulmonary nodules Dyspnea Hand pain Skin lesion Leg pain, bilateral Dyslipidemia Epigastric pain Essential hypertension Cervical cancer screening GERD (gastroesophageal reflux disease) HTN (hypertension) Migraine Anxiety Depression Right lower quadrant pain Fibromyalgia Surgical History Previous section History of breast lump/mass excision History of lithotripsy H/O LEEP H/O tubal ligation Family History Father Myocardial infarction Mother Lung cancer Brother Liver cancer Maternal Grandfather Stomach cancer Maternal Grandmother No problems noted. Social History Housing: Apartment Alcohol intake: never Patient Tobacco Use Status: Current someday Tobacco user Tobacco use type: Cigarette Cigarette Packs Per Day: 0.25 Cigarettes Per Day: 3 e-Cigarette/Vaping Use: Never Used Second Hand Smoke Exposure: Yes service: No Current occupational status: disabled Gender identity: Female Cognitive needs: No Hearing needs: No Vision needs: No Female Reproductive History Menstrual Age of Menarche: 9 Review of Systems Const All systems reviewed & are unremarkable except as noted in HPI and below Reports no additional complaints Eyes Reports no additional complaints ENT Reports no additional complaints Card Reports no additional complaints Resp Reports no additional complaints GI Reports no additional complaints Reports as per HPI Musc Reports no additional complaints Skin/Breast Reports system reviewed and no additional complaints, except as documented Neuro Reports no additional complaints Psych Reports no additional complaints Endo Reports no additional complaints Antonio/Lymph Reports no additional complaints Aller/Immun Reports no additional complaints Office Procedures Cystoscopy Consent Discussed risk and benefit or proposed procedure with the patient. Information consent for procedure given to the patient. Discussed technical aspects, risks, benefits and alternatives in full. Addressed all of the patient's questions and concerns regarding the procedure. The patient demonstrated knowledge and understanding. They wish to proceed with this procedure. Preparation The patient was prepped in the usual manner. A recreation attendant was present and in the room. Genitalia was prepped with betadine solution in a sterile manner. Lidocaine Jelly 2% was placed into the urethra and 16Fr flexible Olympus cystoscope was inserted into the meatus after adequate lubrication. Time out per protocol performed. Speculum used as indicated for adequate visualization of urethra, the flexible cystoscope is passed transurethrally: The bladder was inspected in its entirety with utilization retroflexion displaying: Tumor(s): no suspicious bladder lesions visualized Trabeculation: Mild i Mucosal Erthema: Orifices: normal shape and position Urethra: normal Cystoscopy findings: Bladder wall thickening, no suspicious bladder lesions visualized [id number] DISPOSABLE SCOPE URO-G FLEXIBLE SCOPE Procedure code (CPT) selection complete Office Meds lidocaine HCl 2 % mucosal jelly in applicator Performing Provider: Daisy Redding MD Per[facility] [place] [facility] Administered by: Blaire Yan RN on 03/23/25 15:20 Dose Route Admin Location Dispensed Lot Number Expiration Date NDC Thermostatic Controls Supervisor 10 mL intra-urethral 20 mL ciprofloxacin HCl 500 mg tablet Performing Provider: Daisy Redding MD Performing Location: [facility] [place] [facility] Administered by: Blaire Yan RN on 03/23/25 15:20 Dose Route Admin Location Dispensed Lot Number Expiration Date NDC Thermostatic Controls Supervisor 500 mg PO 1 tab phenazopyridine 200 mg tablet Performing Provider: Daisy Redding MD Performing Location: [facility] [place] [facility] Administered by: Blaire Yan RN on 03/23/25 15:20 Dose Route Admin Location Dispensed Lot Number Expiration Date NDC Thermostatic Controls Supervisor 200 mg PO 1 tab Results AMB Urinalysis, Automated UA Leukoctes 0 Megan/uL Last Edit by Neyda Molina on 03/23/25 15:12 UA Nitrite Negative Last Edit by Neyda Arceoidor on 03/23/25 15:12 UA Urobilinogen 1 mg/dL Last Edit by Neyda Yoonr on 03/23/25 15:12 UA Protein 15 mg/dL Last Edit by Neyda Yoonr on 03/23/25 15:12 UA pH 6.5 Last Edit by Neyda Yoonr on 03/23/25 15:12 UA Blood 25 Adrián/uL Last Edit by Neyda Molina on 03/23/25 15:12 UA Specific [place] 1.010 Last Edit by Neyda Arceoidor on 03/23/25 15:12 UA Ketone Negative Last Edit by Neyda Arceoidor on 03/23/25 15:12 UA Bilirubin 0 mg/dL Last Edit by Neyda Arceoidor on 03/23/25 15:12 UA Glucose 0 mg/dL Last Edit by Neyda Arceoidor on 03/23/25 15:12 Results Reviewed Results Reviewed: Laboratory Last Values Urine pH (Auto) 6.5 03/23/25 15:07 Specific [place] (Auto) 1.010 03/23/25 15:07 Urine Protein (Auto) 15 mg/dL 03/23/25 15:07 Glucose (UA)(Auto) 0 mg/dL 03/23/25 15:07 Urine Ketones (Auto) Negative 03/23/25 15:07 Urine Blood (Auto) 25 Adrián/uL 03/23/25 15:07 Urine Nitrite (Auto) Negative 03/23/25 15:07 Urine Bilirubin (Auto) 0 mg/dL 03/23/25 15:07 Urine Urobilinogen (Auto) 1 mg/dL 03/23/25 15:07 Leukocyte Esterase (Auto) 0 Megan/uL 03/23/25 15:07 Collected: 01/08/25 Location: .LAB Received: 01/09/25 Diagnosis Urine: Negative for high-grade urothelial carcinoma. See comment. COMMENT: Cellular specimen consisting of few single urothelial cells, squamous cells, red blood cells and mixed inflammatory cells. Clinical History Increased frequency of urination, urinary incontinence, microscopic hematuria Material Received Urine Gross Description Received is 40 cc of clear yellow fluid from which a ThinPrep slide is prepared. Date of Service: 12/06/24 CT ABDOMEN AND PELVIS WITHOUT CONTRAST Comparison: None provided Findings: Mild bibasilar atelectasis. No consolidation or pleural effusion. Multiple scattered small calcified pulmonary granulomas. There is mild left hydronephrosis. There is no obstructing calculus. There are no acute abnormalities in the remaining unenhanced solid organs. There is a 3 cm cyst in the right kidney. The gallbladder is contracted. No AAA. No bowel obstruction, pneumoperitoneum, or pneumatosis. No ascites. No significant mesenteric or paracolic edema. Mild colonic diverticulosis. Fzkfoynp-iz-votfs colonic stool burden. The appendix is identified. No acute appendicitis. CT appearances of the uterus and ovaries unremarkable. Mild diffuse urinary bladder wall thickening. The bones are intact. IMPRESSION: 1. Mild left hydronephrosis. No obstructing calculus identified. Recently passed stone versus infection. 2. Mild urinary bladder wall thickening raises the possibility of cystitis in the appropriate clinical setting. 3. No obstructive or acute inflammatory changes in the gastrointestinal tract. Assessment & Plan Assessment & Plan (1) Bladder wall thickening: Code(s): N32.89 - Other specified disorders of bladder Category: Medical (2) Cystitis with hematuria: Code(s): N30.91 - Cystitis, unspecified with hematuria Category: Medical (3) Left flank pain: Code(s): R10.9 - Unspecified abdominal pain Category: Medical Plan Plan 1. Microscopic Hematuria - Continue monitoring with follow-up renal ultrasound to assess hydronephrosis resolution. - Prescribe estrogen cream to improve vaginal tissue health, which may help with urinary symptoms. 2. Mild Left Hydronephrosis - Follow-up renal ultrasound pending to confirm resolution of hydronephrosis. 3. Left sided back pain--- Advised patient to seek emergency care if pain worsens for quicker imaging and evaluation. 4. Bladder Wall Thickening - Cystoscopy performed; mild bladder wall thickening, no suspicious bladder lesions. Orders: Orders AMB Cystoscopy Today R31.29 - Other microscopic hematuria AMB Urinalysis Automated Today Z13.9 - Encounter for screening, unspecified Medications: New estradiol 0.01%(0.1mg/gram) (Estrace) use pea sized amount to fingertip and apply vaginally daily; 42.5 grams 1RF Patient Instructions: The patient had an opportunity to ask questions regarding treatment plan. The patient expressed understanding and agreement with the above treatment plan. The patient is aware they should contact our office by phone for worsening of their current condition or the appearance of new symptoms. Compliance is encouraged with any medications and followup testing that is ordered. It is a privilege to be allowed the opportunity to participate in the urologic care of your patient. If you have any questions or concerns regarding treatment for the above conditions please do not hesitate to contact me. The office telephone contact is [phone]. This note is constructed in part using voice recognition software. While every effort has been made to ensure accuracy business team leader errors may have been included. Yours sincerely, Daisy Redding MD Scribe Plan - Not visible on output: Patient was informed and verbally consented to the use of an ambient scribe for clinic note documentation during this visit. Coding Level of Care Code Est Pt Level 3 (16560) Diagnoses Bladder wall thickening N32.89 Cystitis with hematuria N30.91 Left flank pain R10.9 CPT Codes Cystoscopy - CPT: [id number] ([id number])
== END 2025-03-23 15:47 | disposition home or self-care (01) ==
LOC: HO.HUSH 14:15
PROVIDERS: PCP Internal Medicine; Visit Provider Urology
DX: N32.89 Other specified disorders of bladder (principal); N30.91 Cystitis, unspecified with hematuria; R10.9 Unspecified abdominal pain; R31.29 Other microscopic hematuria; Z13.9 Encounter for screening, unspecified
CPT/HCPCS: 52000

== ENCOUNTER 2025-04-14 12:31 | Outpatient (REF) | payer OTHER, SELFPAY ==
[2025-04-14 12:49] LABS: MANUAL DIFF FLAG NO
[2025-04-14 14:22] LABS: Hematocrit 37.3 % (37.0-47.0); Hemoglobin 11.7 g/dl (12.0-16.0); Imm Gran Abs Auto 0.06 X10*3/uL (0.00-0.03); Imm Gran Pct Auto 0.5 % (0.0-0.4); Lymphocytes Absolute Auto 2.8 X10*3/uL (1.2-4.9); Mean Corpuscular HGB Conc 31.4 g/dl (31.0-35.0); Mean Corpuscular Hemoglobin 26.4 pg (27.0-33.0); Mean Corpuscular Volume 84.0 fL (80.0-98.0); NRBC Abs Auto 0.000 X10*3/uL (0.0-0.012); NRBC Pct Auto 0.0 /100WBC (0.0-0.2); Platelet Count 305 X10*3/uL (160-400); Red Blood Count 4.44 X10*6/uL (4.20-5.50); White Blood Count 11.1 X10*3/uL (4.8-10.8)
[2025-04-14 14:56] LABS: Alanine Aminotransferase 16 U/L (0-31); Albumin Level 4.4 g/dL (3.5-5.0); Alkaline Phosphatase 96 U/L (39-117); Anion Gap 12 (12-20); Aspartate Amino Transferase 16 U/L (5-31); Blood Urea Nitrogen 23 mg/dL (9-16); Calcium 9.2 mg/dL (8.4-10.2); Carbon Dioxide 28 mmol/L (22-29); Chloride 109 mmol/L (96-108); Cholesterol 170 mg/dL (<200); Estimated Glomerular Filt Rate > 60; HDL Cholesterol 46 mg/dL (>40); Potassium 3.7 mmol/L (3.3-5.1); Sodium 145 mmol/L (135-145); Total Protein 7.0 g/dL (6.5-8.0); Triglycerides 195 mg/dL (<150)
[2025-04-14 15:07] LABS: Thyroid Stimulating Hormone 0.66 uIU/mL (0.32-4.0)
== END 2025-04-14 12:32 | disposition home or self-care (01) ==
LOC: HO.LAB 12:31
PROVIDERS: PCP Internal Medicine; Visit Provider Internal Medicine
DX: J44.89 Other specified chronic obstructive pulmonary disease (principal); R06.02 Shortness of breath; R91.8 Other nonspecific abnormal finding of lung field; R40.0 Somnolence; F17.210 Nicotine dependence, cigarettes, uncomplicated
CPT/HCPCS: 36415; 80053; 80061; 84443; 85025; 99212

== ENCOUNTER 2025-04-14 13:03 | Outpatient (AMB) | payer OTHER, SELFPAY ==
[2025-04-14 13:05] VITALS: BP 150/84; PULSE 75; O2SAT 98; BMI 29.6
--- NOTE | 2025-04-14 13:05 | MHC.OFFVIS ---
Vital Signs 04/14/25 13:05 Height 5 ft 1 in Weight 156 lb 8.451 oz BMI 29.6 BP 150/84 H Blood Pressure Location Lt brachial Position Sitting Pulse 75 Pulse Source Pulse Oximeter Pulse Oximetry (%) 98 Oxygen Delivery Method Room Air Intake Visit Reasons: Asthma Product Safety Consultant Required: Yes Product Safety Consultant Services: Product Safety Consultant Offered & Declined Product Safety Consultant Name: MD speaks turkish Accompanied by: Self / Same As Patient Allergies amitriptyline Allergy (Intermediate, Verified 04/14/25 13:10) headache ibuprofen (From Motrin) Allergy (Intermediate, Verified 04/14/25 13:10) ITCHY RASH shrimp Allergy (Mild, Verified 04/14/25 13:10) Unknown cat dander (cats) Allergy (Verified 04/14/25 13:10) Rash seafood Allergy (Verified 04/14/25 13:10) Unknown gabapentin Adverse Reaction (Intermediate, Verified 04/14/25 13:10) vomiting HPI Comments Details: The patient is a 54-year-old woman with a known history of obstructive airway disease in addition to history of pulmonary nodules. Apparently she was in her usual state health until back in the spring of 2020 when she developed COVID. She started developing worsening respiratory symptoms along with dyspnea on exertion. She does use her rescue inhaler and also has a Combivent inhaler that she also finds helpful. She did not require hospitalization for the COVID. Ultimately she did undergo a CT scan of the abdomen over the summer because of worsening abdominal discomfort. We could review the CT scan images. She has multiple pulmonary nodules subcentimeter in size at least at a could see within the lung windows of the CT scan of the abdomen. Some of the nodules were calcified and some of them were noncalcified. She does smoke cigarettes, therefore she is high risk for cancer. The patient should have a formal CT scan of the chest to address the whole lung tissue. In addition to that she does describe significant daytime drowsiness. The patient has issues with headaches in the morning. She does have an elevated [place] score 11/24. His hard time completing her activities of daily living due to her significant fatigue. She also carries a diagnosis of fibromyalgia. Based on her significant symptoms and cardiovascular risk factors the patient should have a home sleep study at this time. 04/22/2024 the patient is here for a pulmonary follow-up visit. The patient has multiple complaints. She has not been seen in some time. She has been complaining significant sinus congestion and chronic rhinitis. She does have significant allergies. She has also noticed that she has been coughing more with some chest congestion as well. She has been having to use her respiratory inhalers on a regular basis on a daily basis due to significant shortness of breath and cough and shortness of breath. The patient needs to quit smoking. She is willing to try Chantix at this time. On exam she does have significant chronic rhinitis and she does have some wheezing on examination. Therefore, will optimize her allergy therapy and also optimize her respiratory inhaler therapy. I am hopeful that she can quit with Chantix and hopefully improve her respiratory status. She does complaint of the coughing the shortness of breath. Previous CT scan demonstrated pulmonary nodules. Will go ahead and repeat a CT scan at this time. If the CT scan stable we can get her involved in the lung cancer screening program to get her further situated with with cancer screening. 06/16/2024 the patient is here for a pulmonary follow-up visit. She has been sick now for several months. She has required urgent care evaluations. Required 2 courses of prednisone and also 2 courses of antibiotics. She also was recently seen at the ER at [facility] because of elevated blood pressure. She became very concerned. She went home she did take hydrochlorothiazide that she had available that she had taken in the past but then it was stopped because of some issues with electrolytes. The patient has been still smoking. She is working on quitting. She would be a great candidate for the lung cancer screening program. 02/03/2025 the patient is here for pulmonary follow-up visit. She continues to have some difficulty with her breathing. Complaining of cough and chest tightness. She also had abdominal discomfort went to the ER. She did have a CT scan of the abdomen demonstrating multiple pulmonary nodules. Unfortunately she continues to smoke cigarettes. She was referred to the lung cancer screening program but she did not qualify. At some point she will need to get a repeat CAT scan to follow-up with the pulmonary nodules. The patient has multiple inhalers. Although she continues to have chest tightness and cough. Will go ahead and optimize her therapy by switching over to Trelegy. 04/14/2025 the patient is here for pulmonary follow-up visit. She continues to complain about chest tightness and wheezing. She did try the Trelegy but she did not tolerate the powder. She continues with the Combivent inhaler that seems very effective for her. The patient also has Ventolin. Will go ahead and send her Dulera this time twice a day. She does have wheezing on exam. Therefore, if her symptoms are better she can start prednisone taper and also consider using a nebulizer. Will have her get pulmonary function studies today. Unfortunately she continues to smoke cigarettes. The patient will be referred to the lung cancer screening program at this time. She needs to cut down the smoking. As it is already she is already cutting down significantly. Will follow-up in 4-6 months she will continue with the current respiratory therapy. She will follow-up with the lung cancer screening program and undergo her formal LDCT. [facility] Medical History Dysphagia Moderate recurrent major depression Left sided abdominal pain Generalized pruritus Smoking 1/2 pack a day or less Asthma-COPD overlap syndrome Acute maxillary sinusitis Otitis externa Hospital discharge follow-up Microscopic hematuria Physical exam Goiter Blurry vision Tobacco dependence Has daytime drowsiness Pulmonary nodules Dyspnea Hand pain Skin lesion Leg pain, bilateral Dyslipidemia Epigastric pain Essential hypertension Cervical cancer screening GERD (gastroesophageal reflux disease) HTN (hypertension) Migraine Anxiety Depression Right lower quadrant pain Fibromyalgia Surgical History Previous section History of breast lump/mass excision History of lithotripsy H/O LEEP H/O tubal ligation Family History Father Myocardial infarction Mother Lung cancer Brother Liver cancer Maternal Grandfather Stomach cancer Maternal Grandmother No problems noted. Social History Housing: Apartment Alcohol intake: never Patient Tobacco Use Status: Current someday Tobacco user Tobacco use type: Cigarette Cigarette Packs Per Day: 0.25 Cigarettes Per Day: 3 e-Cigarette/Vaping Use: Never Used Second Hand Smoke Exposure: Yes service: No Current occupational status: disabled Gender identity: Female Cognitive needs: No Hearing needs: No Vision needs: No Female Reproductive History Menstrual Age of Menarche: 9 Review of Systems Const Reports daytime sleepiness and Reports headache(s) Eyes Reports no additional complaints, Denies change in vision and Denies other visual disturbances ENT Reports headache(s) Card Denies chest pain at rest, Denies chest pain with activity, Denies edema, Denies irregular heart rhythm, Denies claudication, Reports dyspnea, Denies dyspnea on exertion, Denies orthopnea, Denies paroxysmal nocturnal dyspnea and Denies slow heart rate Resp Reports cough, Reports dyspnea and Denies dyspnea on exertion GI Denies abdominal pain, Denies change in bowel habits, Denies excessive flatus, Reports dyspepsia, Reports heartburn, Denies nausea and Denies vomiting Denies urinary incontinence, Denies urinary hesitancy and Denies urinary urgency Musc Denies abnormal gait, Denies atrophy, Denies deformity, Reports arthralgias and Denies limited range of motion Skin/Breast Denies bleeding lesions, Denies changing lesions and Denies rash Neuro Denies abnormal gait, Denies confusion and Reports headache(s) Psych Reports anxiety, Denies confusion and Reports depression Physical Exam Vital Signs: Last Vital Signs Pulse 75 04/14/25 13:05 BP 150/84 H 04/14/25 13:05 Pulse Ox 98 04/14/25 13:05 Oxygen Delivery Method Room Air 04/14/25 13:05 BMI result Body Mass Index 29.6 Const General: No confusion Orientation/consciousness: No confusion HEENT General nose exam: Abnormal external nose present and Nasal discharge present Neck Neck: Yes supple Chest Chest palpation & inspection: normal inspection of the chest Resp Auscultation: wheezes and diminished lung sounds Cardio Rate: regular rate Rhythm: regular rhythm Heart sounds: S1 normal heart sound present and S2 normal heart sound present GI Palpation (GI): Soft to palpation and nontender Auscultation: normal bowel sounds Skin General skin exam: rashes and/or lesions noted Neuro General: No confusion Assessment & Plan Assessment & Plan (1) Asthma-COPD overlap syndrome: Code(s): J44.89 - Other specified chronic obstructive pulmonary disease Category: Medical (2) Pulmonary nodules: Code(s): R91.8 - Other nonspecific abnormal finding of lung field Category: Medical (3) Has daytime drowsiness: Code(s): R40.0 - Somnolence Category: Social Hx (4) Dyspnea: Code(s): R06.00 - Dyspnea, unspecified Category: Medical Qualifiers: Dyspnea type: shortness of breath Qualified Code(s): R06.02 - Shortness of breath (5) Tobacco dependence: Code(s): F17.200 - Nicotine dependence, unspecified, uncomplicated Category: Medical (6) Smoking 1/2 pack a day or less: Code(s): F17.210 - Nicotine dependence, cigarettes, uncomplicated Category: Social Hx Plan start Dulera Singulair Continue combivent STEPHANY as needed referral to LDCT program Tobacco dependedncy, consider Chantix. Will monitor for depressive symptoms PFTs Prednisone taper if worsen Zapck if worsen F/U 4-6 months Orders: Orders PFT pulmonary function test Today J44.89 - Other specified chronic obstructive pulmonary disease Referrals Lung Cancer Screening Referral F17.200 - Nicotine dependence, unspecified, uncomplicated Medications: New mometasone-formoterol 200-5 mcg/actuation (Dulera) 2 puffs inhalation Q12H 13 grams 11RF 30 days prednisone PO daily; Take 2 tabs daily x 5 days, then 1 tablet daily x 5 days 15 tabs 0RF 10 days azithromycin 500 mg PO DAILY 5 tabs 0RF 5 days Coding Level of Care Code Est Pt Level 4 (66570) Complex EM visit Add On G2211 Diagnoses Asthma-COPD overlap syndrome J44.89 Pulmonary nodules R91.8 Has daytime drowsiness R40.0 Shortness of breath R06.02 Dyspnea type: shortness of breath Tobacco dependence F17.200 Smoking 1/2 pack a day or less F17.210 Time Spent (min) 17
== END 2025-04-14 13:33 | disposition home or self-care (01) ==
LOC: HO.HPS 13:04
PROVIDERS: PCP Internal Medicine; Visit Provider Hospitalist
DX: J44.89 Other specified chronic obstructive pulmonary disease (principal); R91.8 Other nonspecific abnormal finding of lung field; R40.0 Somnolence; R06.02 Shortness of breath; F17.200 Nicotine dependence, unspecified, uncomplicated; F17.210 Nicotine dependence, cigarettes, uncomplicated
CPT/HCPCS: 99214

== ENCOUNTER 2025-04-30 14:22 | Outpatient (AMB) | payer OTHER, SELFPAY ==
--- NOTE | 2025-04-30 14:33 | MHC.OFFVISPS ---
Intake Intake Visit Reasons: f/u consultation [employer] Assistant Required: No Allergies amitriptyline Allergy (Intermediate, Verified 05/13/25 14:16) headache ibuprofen (From Motrin) Allergy (Intermediate, Verified 05/13/25 14:16) ITCHY RASH shrimp Allergy (Mild, Verified 05/13/25 14:16) Unknown cat dander (cats) Allergy (Verified 05/13/25 14:16) Rash seafood Allergy (Verified 05/13/25 14:16) Unknown gabapentin Adverse Reaction (Intermediate, Verified 05/13/25 14:16) vomiting Medication List - Last Reconciled 04/30/25 by Vangie Blanchard, TELEHEALTH NURSE EDUCATOR acetaminophen 1,000 mg (2 x 500 mg) PO TID PRN albuterol sulfate 90 mcg/actuation 2 puffs inhalation Q4-6H PRN albuterol sulfate 2.5 mg (3 mL) inhalation Q4-6H PRN azithromycin 500 mg PO DAILY 5 days azithromycin 500 mg PO DAILY 5 days blood pressure monitor (Blood Pressure Kit) As directed cane As directed cholecalciferol (vitamin D3) 50 mcg PO DAILY 90 days clonazepam 0.5 mg PO BID PRN 30 days dicyclomine 20 mg PO TID diphenhydramine HCl 50 mg (2 x 25 mg) PO Q6H PRN epinephrine (EpiPen 2-Pantera) 0.3 mg (0.3 mL) IM Q10M PRN estradiol 0.01%(0.1mg/gram) (Estrace) use pea sized amount to fingertip and apply vaginally daily; famotidine 20 mg PO DAILY PRN fexofenadine (Gemini Allergy) 180 mg PO DAILY fluticasone furoate-vilanterol 200-25 mcg/dose (Breo Ellipta) 1 inh inhalation DAILY 30 days fluticasone propionate 50 mcg/actuation (Flonase Allergy Relief) 2 sprays intranasal DAILY PRN fquvjsuavgg-vingjokeh-ifdmabsn 200-62.5-25 mcg (Trelegy Ellipta) 1 inh inhalation DAILY 30 days galcanezumab-gnlm (Emgality Pen) 120 mg subcut Q30D 30 days hydrochlorothiazide 25 mg PO DAILY 90 days hydrocortisone 2.5% 1 appl topical BID-TID PRN hydroxyzine HCl 50 mg PO Q8H PRN lactulose Take 15-30mL daily for constipation. loratadine (Claritin) 10 mg PO DAILY 30 days magnesium oxide 400 mg PO BEDTIME 30 days meclizine 25 mg PO TID menthol 0.1% (Eucerin Itch Relief) 1 ea topical BID 14 days mometasone-formoterol 200-5 mcg/actuation (Dulera) 2 puffs inhalation Q12H 30 days naloxone 2 mg (0.08 mL) subcut Q3M 30 days nebulizers (AeroEclipse II Nebulizer) As directed olopatadine 0.7% (Pataday Once Daily Relief) 1 drp ophthalmic (eye) Q24H PRN ondansetron 4 mg PO Q8H PRN paroxetine HCl 10 mg PO DAILY prednisone PO daily; Take 2 tabs daily x 5 days, then 1 tablet daily x 5 days 10 days riboflavin (vitamin B2) 400 mg PO DAILY 30 days rimegepant (Nurtec ODT) 75 mg PO ONCE PRN 30 days MDD 1 tab sennosides-docusate sodium 8.6-50 mg (Senna Plus) 2 tab-caps (2 x 8.6-50 mg) PO BEDTIME tramadol 50 mg PO BID PRN 30 days umeclidinium 62.5 mcg/actuation (Incruse Ellipta) 1 inh inhalation DAILY 30 days underpads (Bed Underpads) As directed walker To be use lifetime zolpidem (Ambien) 5 mg PO BEDTIME HPI- Psychiatric Chief Complaint: f/u consultation HPI Narrative: Pt is here for follow up fro depression and anxiety. she reports improvement; tolerating the paroxteine and clonazepam.she takes the clonazepam prn but only after panic symptoms start. she says the ambien did not help at all; she continues to go to the ED for panic attacks. she is having a work up for lung nodules and questionable mammogram results. she says she did not follow directions for the CT scan so the y had to cancel it and she has not followed up, she says she continues to have panic symptoms; she has quit smoking but says she feels miserable without the cigarettes; she is wating for a therapist. PHQ9=8 and GAD7=8 Past Psychiatric History: many years of depression and anxiety used to go to [facility] for psychiatry and therapy Subjective Subjective Medication Compliance: No Mental Status Exam Mental Status Exam Patient Appearance: Well Grooomed Patient Orientation: Person, Place, Time and Situation Level of Consciousness: Awake Patient Behavior: Appropriate Mood Description: Anxious Affect Description: Anxious Patient Cognition Impaired: No Ability to Follow Directions: Fair Speech Pattern: Clear Memory Description: Intact Hallucinations: None Delusions: Not Present Thought Process: Intact and Distracted Thought Content: positive for Intact and positive for Loose Associations Judgement: Fair Assessment and Plan Assessment & Plan (1) Moderate recurrent major depression: Status: Acute Code(s): F33.1 - Major depressive disorder, recurrent, moderate (2) Generalized anxiety disorder: Status: Acute Code(s): F41.1 - Generalized anxiety disorder (3) Panic disorder: Status: Acute Code(s): F41.0 - Panic disorder [episodic paroxysmal anxiety] Plan paroxetine 10 mg daily clonazepam 0.5 mg BID Counseling and coordination of Care Pt. Self Management counseling: Maintenance-social rhythm, Mindfulness, Mod caffeine/ETOH intake, Sleep hygiene and General coping skills Medication management counseling: Effectiveness, Side effects, Dosing range, Duration and Drug interaction Diagnosis and Prognosis Counseling: Accuracy of diagnosis, Prognosis over time, Impact of diagnosis on life functions, Problematic behaviors secondary to diagnosis and Adequacy of current interventions Details: I spent 30 minutes reviewing the record, seeing the patient and documenting in the medical record. Counseling provided to the patient/caregiver as outlined below. Addressed patient/caregiver concerns regarding current medication regime including effective adherence. Addressed patient/caregiver concerns regarding diagnosis and prognosis including accuracy of diagnosis, prognosis over time, impact of diagnosis. Addressed patient/caregiver concerns regarding impact of recent stressors. [facility] Medical History Dysphagia Moderate recurrent major depression Left sided abdominal pain Generalized pruritus Smoking 1/2 pack a day or less Asthma-COPD overlap syndrome Acute maxillary sinusitis Otitis externa Hospital discharge follow-up Microscopic hematuria Physical exam Goiter Blurry vision Tobacco dependence Has daytime drowsiness Pulmonary nodules Dyspnea Hand pain Skin lesion Leg pain, bilateral Dyslipidemia Epigastric pain Essential hypertension Cervical cancer screening GERD (gastroesophageal reflux disease) HTN (hypertension) Migraine Anxiety Depression Right lower quadrant pain Fibromyalgia Surgical History Previous section History of breast lump/mass excision History of lithotripsy H/O LEEP H/O tubal ligation Family History Father Myocardial infarction Mother Lung cancer Brother Liver cancer Maternal Grandfather Stomach cancer Maternal Grandmother No problems noted. Social History Housing: Apartment Alcohol intake: never Patient Tobacco Use Status: Current someday Tobacco user Tobacco use type: Cigarette Cigarette Packs Per Day: 0.25 Cigarettes Per Day: 3 e-Cigarette/Vaping Use: Never Used Second Hand Smoke Exposure: Yes service: No Current occupational status: disabled Gender identity: Female Cognitive needs: No Hearing needs: No Vision needs: No Social History: lives alone; has BF of 25 yrs but conflicted relationship; has adult children who try to be supportive Substance History: none Trauma History: yes Coding Level of Care Code Est Pt Level 4 (46086) Diagnoses Moderate recurrent major depression F33.1 Generalized anxiety disorder F41.1 Panic disorder F41.0
== END 2025-04-30 14:59 | disposition home or self-care (01) ==
LOC: HO.HOP 14:22
PROVIDERS: PCP Internal Medicine; Visit Provider Clinical Nurse Specialist Psychiatric/Mental Health
DX: F33.1 Major depressive disorder, recurrent, moderate (principal); F41.1 Generalized anxiety disorder; F41.0 Panic disorder [episodic paroxysmal anxiety]
CPT/HCPCS: 99214

== ENCOUNTER → 2025-04-30 14:22 | Outpatient (BNVA) | payer OTHER, SELFPAY | PROVIDERS: PCP Internal Medicine; Visit Provider Clinical Nurse Specialist Psychiatric/Mental Health | DX: F33.1 Major depressive disorder, recurrent, moderate (principal); F41.1 Generalized anxiety disorder; F41.0 Panic disorder [episodic paroxysmal anxiety] | CPT/HCPCS: 99212 ==

== ENCOUNTER 2025-05-13 14:11 | Outpatient (AMB) | payer OTHER, SELFPAY ==
--- NOTE | 2025-05-13 14:16 | A.OFFPC_ITS ---
Vital Signs 05/13/25 14:17 Height 5 ft 1 in Weight 152 lb 4 oz BMI 28.8 BP 110/70 Blood Pressure Location Lt brachial Position Sitting Pulse 91 Pulse Source Pulse Oximeter Temp 97.1 F Temp Source Temporal Artery Scan Pulse Oximetry (%) 98 Oxygen Delivery Method Room Air Intake Visit Reasons: headache, pain on neck and shoulders Intake Note: Patient is here to follow up on Headache, pain on neck and shoulders. 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 per policy Accompanied by: Self / Same As Patient Allergies amitriptyline Allergy (Intermediate, Verified 05/13/25 14:16) headache ibuprofen (From Motrin) Allergy (Intermediate, Verified 05/13/25 14:16) ITCHY RASH shrimp Allergy (Mild, Verified 05/13/25 14:16) Unknown cat dander (cats) Allergy (Verified 05/13/25 14:16) Rash seafood Allergy (Verified 05/13/25 14:16) Unknown gabapentin Adverse Reaction (Intermediate, Verified 05/13/25 14:16) vomiting Tobacco use date assessed: 05/13/25 Dental Screening Dental Screen Date: 03/23/25 HPI HPI Comments History of Present Illness Details History of Present Illness - The patient is a 54 year old individua l presenting with headache, neck pain, and shoulder pain, which started two weeks ago. - The pain is worse when sleeping and is also exacerbated by cold weather. - The patient has tried Tylenol and Tram adol; these medications help with back and general body pain but do not alleviate the head, neck, and shoulder pain. - The patient also reports feeling depre ssed this month and is not sleeping well due to the pain. - Recent blood tests from April 14 w ere reviewed and noted to be normal, with good thyroid function. Social History - Employment: The patient is not current ly working, or works only sometimes. Results - Labs: Blood tests from April 14 we re normal, including thyroid function. [facility] Medical History Dysphagia Moderate recurrent major depression Left sided abdominal pain Generalized pruritus Smoking 1/2 pack a day or less Asthma-COPD overlap syndrome Acute maxillary sinusitis Otitis externa Hospital discharge follow-up Microscopic hematuria Physical exam Goiter Blurry vision Tobacco dependence Has daytime drowsiness Pulmonary nodules Dyspnea Hand pain Skin lesion Leg pain, bilateral Dyslipidemia Epigastric pain Essential hypertension Cervical cancer screening GERD (gastroesophageal reflux disease) HTN (hypertension) Migraine Anxiety Depression Right lower quadrant pain Fibromyalgia Surgical History Previous section History of breast lump/mass excision History of lithotripsy H/O LEEP H/O tubal ligation Family History Father Myocardial infarction Mother Lung cancer Brother Liver cancer Maternal Grandfather Stomach cancer Maternal Grandmother No problems noted. Social History Housing: Apartment Alcohol intake: never Patient Tobacco Use Status: Current someday Tobacco user Tobacco use type: Cigarette Cigarette Packs Per Day: 0.25 Cigarettes Per Day: 3 e-Cigarette/Vaping Use: Never Used Second Hand Smoke Exposure: Yes service: No Current occupational status: disabled Gender identity: Female Cognitive needs: No Hearing needs: No Vision needs: No Female Reproductive History Menstrual Age of Menarche: 9 Questionnaire Thrive Questionnaire Date Thrive assessed: 10/28/24 I am a: Patient What is your living situation today?: I choose not to answer this question Within the past 12 months, did the food you bought not last and you didn't have the money to get more?: Sometimes True Within the past 12 months, did you worry whether your food would run out before you got money to buy more?: Sometimes True Do you have trouble paying for medicines?: No Do you have trouble getting transportation to medical appointments?: Yes Do you have trouble paying your heating and electricity bill?: No Do you have trouble taking care of your child, family member or friend?: No Do you have trouble with day-to-day activities such as bathing, preparing meals, shopping, managing finances, etc.?: Yes Are you currently unemployed and looking for a job?: No Are you interested in more education?: No Currently or been in a relationship where the following occur: No concerns reported THRIVE Score: 3 JOHN-7 AMB Questionnaire JOHN-7 Date JOHN - 7 assessed: 10/28/24 Source: Developed by Drs. Sylvester Merlos, Eve Mcclelland, Joby King and colleagues, with an educational pili from [employer]. Review of Systems Narrative Review of Systems - Musculoskeletal: Reports pain in the head, neck, shoulders, and back. - Neurological: Reports headaches. - Psychiatric: Reports feeling depressed. - Constitutional: Reports poor sleep. - Integumentary: Denies pain associated with a skin lesion. Physical exam (Primary Care) Vital Signs: Last Vital Signs Temp 97.1 F 05/13/25 14:17 Pulse 91 05/13/25 14:17 BP 110/70 05/13/25 14:17 Pulse Ox 98 05/13/25 14:17 Oxygen Delivery Method Room Air 05/13/25 14:17 BMI result Body Mass Index 28.8 Tobacco/Smoking Status: Tobacco use Status Tobacco use date assessed 05/13/25 05/13/25 14:21 Patient Tobacco Use Status Current someday Tobacco 05/13/25 14:21 Tobacco use type Cigarette 05/13/25 14:21 e-Cigarette/Vaping Use Never Used 05/13/25 14:21 Thrive Assessment: Date of Thrive Assessment Date Thrive assessed 10/28/24 05/13/25 14:21 Currently or been in a relationship where the following occur: No concerns reported Narrative Physical Exam General: Appearance normal, both eyes and all related structures Nutritional Appearance: Well nourished Orientation/consciousness: Patient oriented x3 Limitations: No limitations Head: Pain in the head Neck: Pain in the neck Chest: Normal palpation of entire chest wall Respiratory: Normal respiratory effort Neurology: Patient oriented x3 Coding Level of Care Code Est Pt Level 4 (18322) Complex visit Add On G2211 Diagnoses Cervicalgia M54.2 Assessment & Plan Assessment & Plan (1) Cervicalgia: Code(s): M54.2 - Cervicalgia Category: Medical Plan: Cyclobenzaprine added to the regimen. Follow up here Plan Plan - The patient's pain is assessed to be muscular in origin. - A prescription for a muscle relaxant will be sent to the pharmacy. - The patient is advised to follow up with the patient's regular doctor, Dr. Marquez. Discussion Notes I reviewed the patient's recent blood work from April 14 and noted that the results, including thyroid function, are normal. I explained that the pain in the head, neck, and shoulders is likely muscular. A skin finding was identified as a sebaceous cyst, and I reassured the patient that it is not concerning. I am sending a prescription for a muscle relaxant to the patient's pharmacy. I advised the patient to try the medication and to follow up with Dr. Marquez. Patient Instructions - Your pain appears to be coming from your muscles. - A prescription for a muscle relaxant will be sent to your pharmacy. - The bump on your skin is a harmless sebaceous cyst. - Please follow up with your regular doctor, Dr. Marquez, after trying the new medication.
[2025-05-13 14:17] VITALS: BP 110/70; PULSE 91; TEMP 36.2; O2SAT 98; BMI 28.8
== END 2025-05-13 14:41 | disposition home or self-care (01) ==
LOC: HO.HMCH 14:12
PROVIDERS: PCP Internal Medicine; Visit Provider Internal Medicine
DX: M54.2 Cervicalgia (principal)

== ENCOUNTER → 2025-05-13 14:11 | Outpatient (BNVA) | payer OTHER, SELFPAY | PROVIDERS: PCP Internal Medicine; Visit Provider Internal Medicine | DX: M54.2 Cervicalgia (principal) | CPT/HCPCS: 99212 ==

== ENCOUNTER 2025-05-29 11:40 | Emergency (ER) | payer OTHER, SELFPAY ==
--- NOTE | ~2025-05-29 | CT_ITS ---
CLINICAL HISTORY: diffuse headache, non focal CT head without contrast Comparison: CT/SR - CT HEAD/BRAIN WO IV CON - 12/22/24 20:35 EDT Findings: No intra-axial mass, midline shift, hydrocephalus, or acute hemorrhage. No significant atrophy-like change or white matter disease. The visualized paranasal sinuses and mastoid air cells are normal. The orbits are unremarkable. No skull fracture. IMPRESSION: 1. No acute intracranial findings. This document has been electronically signed by: Kendrick Salcido MD on 05/29/2025 20:13:11
--- NOTE | 2025-05-29 12:29 | ED.GENADULT ---
HPI - General Adult General Chief complaint: General Medical Stated complaint: headache body aches Time Seen by Provider: 05/29/25 18:09 History of Present Illness ED Provider: Angelito Pink MD HPI narrative: 54-year-old female with previously diagnosed migraine chronic headaches for many years comes for worsening and slightly different character headache over the past several weeks. She tells me she has previously seen her physician about this who sent her to a neurologist in [place] he tried some what she describes as injections once a week for 6 weeks in the abdomen that did not help much. She now feels as if she has diffuse scalp right greater than left pain sometimes throbbing discomfort throughout the face including what she describes as the bones of my face. Mostly in the as zygomatic region. No vision symptoms focal neurologic deficits. She feels depressed in his tear fall but does not endorse suicidal thoughts. Related Data Previous Rx's ?Medication ?Instructions ?Recorded cane #1 ea 09/06/22 acetaminophen 500 mg tablet 1,000 mg (2 x 500 mg) PO TID PRN 10/07/22 pain #20 tabs underpads (Bed Underpads) #100 ea 03/28/23 walker #1 ea 03/28/23 naloxone 10 mg/0.4 mL 2 mg (0.08 mL) subcut Q3M 30 days 01/09/24 injection,auto-injector #4 mL nebulizers (AeroEclipse II #1 ea 04/03/24 Nebulizer) riboflavin (vitamin B2) 400 mg 400 mg PO DAILY 30 days #30 tabs 04/16/24 tablet cholecalciferol (vitamin D3) 50 50 mcg PO DAILY 90 days #90 tabs 04/24/24 mcg (2,000 unit) tablet olopatadine 0.7 % eye drops 1 drp ophthalmic (eye) Q24H PRN 08/11/24 (Pataday Once Daily Relief) itching #5 mL albuterol sulfate 90 mcg/actuation 2 puff inhalation Q4-6H PRN 10/03/24 aerosol inhaler shortness of breath or wheezing #6.7 grams diphenhydramine HCl 25 mg capsule 50 mg (2 x 25 mg) PO Q6H PRN 10/06/24 allergic reaction #20 caps epinephrine 0.3 mg/0.3 mL 0.3 mg (0.3 mL) IM Q10M PRN 10/06/24 injection, auto-injector (EpiPen anaphylaxis #2 ea 2-Pantera) menthol 0.1 % lotion (Eucerin Itch 1 ea topical BID 14 days #250 mL 10/06/24 Relief) fexofenadine 180 mg tablet 180 mg PO DAILY #90 tabs 10/09/24 (Gemini Allergy) hydrocortisone 2.5 % topical 1 appl topical BID-TID PRN itching 10/09/24 ointment #454 grams rimegepant 75 mg disintegrating 75 mg PO ONCE PRN migraine 10/24/24 tablet (Nurtec ODT) headache 30 days #15 tabs magnesium oxide 400 mg (241.3 mg 400 mg PO BEDTIME 30 days #30 tabs 10/28/24 magnesium) tablet blood pressure monitor (Blood #1 ea 11/21/24 Pressure Kit) meclizine 25 mg tablet 25 mg PO TID #20 tabs 12/03/24 paroxetine HCl 10 mg tablet 10 mg PO DAILY #30 tabs 12/18/24 fluticasone propionate 50 2 spray intranasal DAILY PRN nasal 12/27/24 mcg/actuation nasal congestion #16 grams spray,suspension (Flonase Allergy Relief) lactulose 10 gram/15 mL oral 10 g (15 mL) PO .COMPLEX 01/28/25 solution constipation #3,785 mL sennosides 8.6 mg-docusate sodium 2 tab-cap (2 x 8.6-50 mg) PO 01/28/25 50 mg capsule (Senna Plus) BEDTIME #180 caps fluticasone fur. 200 mcg-umeclid 1 inh inhalation DAILY 30 days #60 02/03/25 62.5 mcg-vilant 25 mcg ea inhalat.powder (Trelegy Ellipta) loratadine 10 mg tablet (Claritin) 10 mg PO DAILY 30 days #30 tabs 02/03/25 fluticasone furoate 200 1 inh inhalation DAILY 30 days #60 02/04/25 mcg-vilanterol 25 mcg/dose ea inhalation powder (Breo Ellipta) umeclidinium 62.5 mcg/actuation 1 inh inhalation DAILY 30 days #30 02/04/25 blister powder for inhalation ea (Incruse Ellipta) zolpidem 5 mg tablet (Ambien) 5 mg PO BEDTIME #30 tabs 02/10/25 albuterol sulfate 2.5 mg/3 mL 2.5 mg (3 mL) inhalation Q4-6H PRN 02/12/25 (0.083 %) solution for nebulization bronchospasm #75 mL galcanezumab-gnlm 120 mg/mL 120 mg subcut Q30D 30 days #1 mL 02/13/25 subcutaneous pen injector (Emgality Pen) dicyclomine 20 mg tablet 20 mg PO TID #10 tabs 03/03/25 ondansetron 4 mg disintegrating 4 mg PO Q8H PRN nausea and 03/03/25 tablet vomiting #10 tabs hydrochlorothiazide 25 mg tablet 25 mg PO DAILY 90 days #90 tabs 03/05/25 hydroxyzine HCl 50 mg tablet 50 mg PO Q8H PRN nausea and 03/05/25 vomiting #90 tabs estradiol 0.01% (0.1 mg/gram) See Rx Instructions vaginal DAILY 03/23/25 vaginal cream (Estrace) #42.5 grams mometasone-formoterol HFA 200 2 puff inhalation Q12H 30 days #13 04/14/25 mcg-5 mcg/actuation aerosol grams inhaler (Dulera) clonazepam 0.5 mg tablet 0.5 mg PO BID PRN anxiety 30 days 04/20/25 #60 tabs famotidine 20 mg tablet 20 mg PO DAILY PRN GERD #90 tabs 04/28/25 tramadol 50 mg tablet 100 mg (2 x 50 mg) PO BID PRN 05/05/25 severe pain (scale score 7-10) 30 days #120 tabs cyclobenzaprine 10 mg tablet 10 mg PO BEDTIME #14 tabs 05/13/25 metoclopramide HCl 10 mg tablet 10 mg PO Q6H PRN nausea and 05/29/25 vomiting #7 tabs Allergies Allergy/AdvReac Type Severity Reaction Status Date / Time amitriptyline Allergy Intermediate headache Verified 05/29/25 12:33 ibuprofen (From Motrin) Allergy Intermediate ITCHY RASH Verified 05/29/25 12:33 shrimp Allergy Mild Unknown Verified 05/29/25 12:33 cat dander (cats) Allergy Rash Verified 05/29/25 12:33 seafood Allergy Unknown Verified 05/29/25 12:33 gabapentin AdvReac Intermediate vomiting Verified 05/29/25 12:33 [facility] Past Medical History Medical History Dysphagia Moderate recurrent major depression Left sided abdominal pain Generalized pruritus Smoking 1/2 pack a day or less Asthma-COPD overlap syndrome Acute maxillary sinusitis Otitis externa Hospital discharge follow-up Microscopic hematuria Physical exam Goiter Blurry vision Tobacco dependence Has daytime drowsiness Pulmonary nodules Dyspnea Hand pain Skin lesion Leg pain, bilateral Dyslipidemia Epigastric pain Essential hypertension Cervical cancer screening GERD (gastroesophageal reflux disease) HTN (hypertension) Migraine Anxiety Depression Right lower quadrant pain Fibromyalgia Surgical History Previous section History of breast lump/mass excision History of lithotripsy H/O LEEP H/O tubal ligation Family History Family History Father Myocardial infarction Mother Lung cancer Brother Liver cancer Maternal Grandfather Stomach cancer Maternal Grandmother No problems noted. Social History Social History Housing: Apartment Alcohol intake: never Patient Tobacco Use Status: Current someday Tobacco user Tobacco use type: Cigarette Cigarette Packs Per Day: 0.25 Cigarettes Per Day: 3 e-Cigarette/Vaping Use: Never Used Second Hand Smoke Exposure: Yes Advance Directives: No Advance Directives Information Provided: Yes service: No Current occupational status: disabled Gender identity: Female Cognitive needs: No Hearing needs: No Vision needs: No Physical Exam ED Exam Exam: GENERAL: Well appearing. No apparent distress. Alert. Tearful occasionally HEAD/NECK: Normal to inspection. Neck supple. No cervical lymphadenopathy. EYES: Normal to inspection. Sclera non-icteric. ENMT: External nose normal. RESPIRATORY: Respiratory effort normal. Lungs clear to auscultation bilaterally. CARDIOVASCULAR: Regular rate. Normal rhythm. No murmur. No rubs. GI: Soft, non-tender, non-distended. No rebound or guarding. No masses palpable. No hepatosplenomegaly. SKIN: No jaundice. NEUROLOGICAL: Alert. PSYCHIATRIC: Alert. Appearance appropriate for situation. Attitude cooperative. OTHER: Comprehensive Neuro exam: Face symmetric, tongue midline, strong symmetric eye closure, pupils symmetric and reactive to light, intact sensation to the face throughout, intact strong face deviation and shoulder shrug. Sensation intact to light touch throughout 5 out of 5 strength in bilateral upper extremities, 5 and 5 strength in lower extremities Vital Signs: Vital Signs - 24 hr 05/29/25 12:30 05/29/25 17:18 05/29/25 18:23 Temperature 98.5 F 98.7 F 97.1 F Pulse Rate 83 87 75 Respiratory Rate 18 18 19 Blood Pressure 165/126 H 170/70 H 149/87 H Pulse Oximetry 97 95 98 Oxygen Delivery Method Room Air Room Air Room Air BMI result Body Mass Index 28.4 Course Course Course Narrative: Rapid medical examination performed in triage by Blele Mckeon PA-C: Patient is a 54 year old assigned female at presenting to the emergency department with a headache and facial swelling. Detailed physical exam and review of systems are deferred to the elevator constructor hydraulic. Labs and swabs ordered. Patient placed back in the waiting room pending room availability and results. Medications Administered Discontinued Medications Generic Name Dose Route Start Last Admin Trade Name Horacio PRN Reason Stop Dose Admin Acetaminophen 975 mg 05/29/25 19:01 05/29/25 19:18 Acetaminophen 325 Mg Tablet PO 05/29/25 19:02 975 mg ONCE ONE Administration Dexamethasone 10 mg 05/29/25 18:59 05/29/25 19:19 Dexamethasone 2 Mg Tablet PO 05/29/25 19:00 10 mg ONCE ONE Administration Lidocaine/Epinephrine 10 ml 05/29/25 18:59 05/29/25 19:29 Lidocaine Hcl 1%/Epi 1:100,000 20 Ml Vial INFILTRATI 05/29/25 19:00 10 ml ONCE ONE Administration Metoclopramide HCl 10 mg 05/29/25 18:59 05/29/25 19:19 Metoclopramide Hcl 10 Mg Tablet PO 05/29/25 19:00 10 mg ONCE ONE Administration Medical Decision Making Medical Decision Making MDM Narrative: Medical Decision Making: [age] female with generalized headache possible prior history of chronic migraines. Last brain imaging was noncontrast head CT September 2024 which was normal. She has a nonfocal neuro exam she is depressed I think this is probably from her chronic headaches and her anxiety and concerned about this being something serious or life-threatening. Plan for plain brain CT occipital nerve block, multimodal oral analgesia She certainly has no deficits nor any suggestion of MATHEMATICS ACADEMIC CHAIR infection Preliminary Favored Differential Diagnosis: Migraine, tension, occipital neuralgia, depression, sinusitis among additional considered etiologies Testing Interpreted Independently: ?See below for details Radiology or Lab testing Results Reviewed: ?See below for details Consults: ?See below for details Independent Historians/External Chart Reviews: ?See below for details Social Determinants of Health Impacting MDM/Planning: ?See below for details Lab Data 05/29/25 12:55 05/29/25 12:55 Labs: Lab Results 05/29/25 Range/Units 12:55 WBC 10.1 (4.8-10.8) X10*3/uL RBC 5.11 (4.20-5.50) X10*6/uL Hgb 13.4 (12.0-16.0) g/dl Hct 41.9 (37.0-47.0) % MCV 82.0 (80.0-98.0) fL MCH 26.2 L (27.0-33.0) pg MCHC 32.0 (31.0-35.0) g/dl RDW 13.7 (11.0-16.0) % Plt Count 288 (160-400) X10*3/uL MPV 10.1 (9.4-12.3) fL Immature Gran % (Auto) 0.3 (0.0-0.4) % Neut % (Auto) 59.0 (45-73) % Lymph % (Auto) 31.4 (20-40) % [place] % (Auto) 7.7 (2-11) % Eos % (Auto) 1.0 (0-4) % Baso % (Auto) 0.6 (0-2) % Lymph # (Auto) 3.2 (1.2-4.9) X10*3/uL [place] # (Auto) 0.8 (0.1-1.2) X10*3/uL Eos # (Auto) 0.1 (0.0-0.4) X10*3/uL Baso # (Auto) 0.1 (0.0-0.2) X10*3/uL Abs Immat Gran (auto) 0.03 (0.00-0.03) X10*3/uL Absolute Neuts (auto) 5.9 (2.0-8.3) x10*3/uL Absolute Nucleated RBC 0.000 (0.0-0.012) X10*3/uL Nucleated RBC % (auto) 0.0 (0.0-0.2) /100WBC Sodium 143 (135-145) mmol/L Potassium 3.4 (3.3-5.1) mmol/L Chloride 104 (96-108) mmol/L Carbon Dioxide 30 H (22-29) mmol/L Anion Gap 12 (12-20) BUN 18 H (9-16) mg/dL Creatinine 1.02 (0.5-1.4) mg/dL Estim Creat Clear Calc 54.4 Estimated GFR 56 Random Glucose 66 (60-115) mg/dL Calcium 10.3 H D (8.4-10.2) mg/dL Total Bilirubin 0.5 (0.0-1.0) mg/dL AST 20 (5-31) U/L ALT 24 (0-31) U/L Alkaline Phosphatase 97 (39-117) U/L Total Protein 7.4 (6.5-8.0) g/dL Albumin 4.5 (3.5-5.0) g/dL Influenza Type A (PCR) NEGATIVE (Negative) Influenza Type B (PCR) NEGATIVE (Negative) RSV RNA Qual (PCR) NEGATIVE (Negative) SARS-CoV-2 RNA (RT-PCR) NEGATIVE (Negative) Discharge Plan Discharge Clinical Impression: Persistent headaches Patient Disposition: Home, Self-Care Instructions: Acute Headache (DC) Additional Instructions: You were evaluated for headache, received an OCCIPITAL NERVE BLOCK with 1% lidocaine (6ml). on the RIGHT side. You also received steroid and metoclopramide. Prescriptions: New metoclopramide HCl 10 mg tablet 10 mg PO Q6H PRN (Reason: nausea and vomiting) Qty: 7 0RF No Action (DME) cane Device See Rx Instructions .Route Qty: 1 0RF Rx Instructions: As directed (DME) walker Misc See Rx Instructions .Route Qty: 1 0RF Rx Instructions: To be use lifetime (DME) underpads [Bed Underpads] Pad See Rx Instructions .Route Qty: 100 0RF Rx Instructions: As directed naloxone 10 mg/0.4 mL auto-injector 2 mg subcut Q3M 30 Days Qty: 4 0RF Rx Instructions: until desired response riboflavin (vitamin B2) 400 mg tablet 400 mg PO DAILY 30 Days Qty: 30 6RF cholecalciferol (vitamin D3) 50 mcg (2,000 unit) tablet 50 mcg PO DAILY 90 Days Qty: 90 1RF Nurtec ODT 75 mg tablet,disintegrating 75 mg PO ONCE MDD 1 tab PRN (Reason: migraine headache) 30 Days Qty: 15 6RF Rx Instructions: Prior authorization approved through 04/22/2025 ([facility] [place]) blood pressure monitor [Blood Pressure Kit] Kit See Rx Instructions .ROUTE .MEDSUPPLY Qty: 1 0RF Rx Instructions: As directed Incruse Ellipta 62.5 mcg/actuation blister with device 1 inh inhalation DAILY 30 Days Qty: 30 11RF fluticasone furoate-vilanterol [Breo Ellipta] 200-25 mcg/dose blister with device 1 inh inhalation DAILY 30 Days Qty: 60 11RF Emgality Pen 120 mg/mL pen injector 120 mg subcut Q30D 30 Days Qty: 1 6RF Rx Instructions: Maintenance dose of 120 mg subcu q.month. [place] APPROVED 12/04/24-06/05/25 hydroxyzine HCl 50 mg tablet 50 mg PO Q8H PRN (Reason: nausea and vomiting) Qty: 90 1RF clonazepam 0.5 mg tablet 0.5 mg PO BID PRN (Reason: anxiety) 30 Days Qty: 60 1RF famotidine 20 mg tablet 20 mg PO DAILY PRN (Reason: GERD) Qty: 90 2RF Rx Instructions: Take one tablet as needed for acid reflux tramadol 50 mg tablet 100 mg PO BID PRN (Reason: severe pain (scale score 7-10)) 30 Days Qty: 120 0RF acetaminophen 500 mg tablet 1,000 mg PO TID PRN (Reason: pain) Qty: 20 0RF albuterol sulfate 90 mcg/actuation HFA aerosol inhaler 2 puff inhalation Q4-6H PRN (Reason: shortness of breath or wheezing) Qty: 6.7 0RF meclizine 25 mg tablet 25 mg PO TID Qty: 20 0RF fluticasone propionate [Flonase Allergy Relief] 50 mcg/actuation spray,suspension 2 spray intranasal DAILY PRN (Reason: nasal congestion) Qty: 16 0RF Rx Instructions: administer into each nostril albuterol sulfate 2.5 mg /3 mL (0.083 %) solution for nebulization 2.5 mg inhalation Q4-6H PRN (Reason: bronchospasm) Qty: 75 0RF dicyclomine 20 mg tablet 20 mg PO TID Qty: 10 0RF ondansetron 4 mg tablet,disintegrating 4 mg PO Q8H PRN (Reason: nausea and vomiting) Qty: 10 0RF diphenhydramine HCl 25 mg capsule 50 mg PO Q6H PRN (Reason: allergic reaction) Qty: 20 0RF epinephrine [EpiPen 2-Pantera] 0.3 mg/0.3 mL auto-injector 0.3 mg IM Q10M PRN (Reason: anaphylaxis) Qty: 2 0RF Rx Instructions: for 3 doses Eucerin Itch Relief 0.1 % lotion 1 ea topical BID 14 Days Qty: 250 0RF hydrocortisone 2.5 % ointment 1 appl topical BID-TID PRN (Reason: itching) Qty: 454 1RF fexofenadine [Gemini Allergy] 180 mg tablet 180 mg PO DAILY Qty: 90 1RF magnesium oxide 400 mg (241.3 mg magnesium) tablet 400 mg PO BEDTIME 30 Days Qty: 30 6RF Rx Instructions: may hold for loose stools hydrochlorothiazide 25 mg tablet 25 mg PO DAILY 90 Days Qty: 90 1RF Dulera 200-5 mcg/actuation HFA aerosol inhaler 2 puff inhalation Q12H 30 Days Qty: 13 11RF cyclobenzaprine 10 mg tablet 10 mg PO BEDTIME Qty: 14 0RF (DME) nebulizers [AeroEclipse II Nebulizer] [facility] See Rx Instructions .Route Qty: 1 0RF Rx Instructions: As directed Pataday Once Daily Relief 0.7 % drops 1 drp ophthalmic (eye) Q24H PRN (Reason: itching) Qty: 5 0RF paroxetine HCl 10 mg tablet 10 mg PO DAILY Qty: 30 2RF loratadine [Claritin] 10 mg tablet 10 mg PO DAILY 30 Days Qty: 30 11RF Trelegy Ellipta 200-62.5-25 mcg blister with device 1 inh inhalation DAILY 30 Days Qty: 60 12RF lactulose 10 gram/15 mL solution 10 g PO .COMPLEX Qty: 3785 0RF Rx Instructions: Take 15-30mL daily for constipation. Senna Plus 8.6-50 mg capsule 2 tab-cap PO BEDTIME Qty: 180 1RF Rx Instructions: Take two tablets at bedtime zolpidem [Ambien] 5 mg tablet 5 mg PO BEDTIME Qty: 30 1RF estradiol [Estrace] 0.01 % (0.1 mg/gram) cream See Rx Instructions vaginal DAILY Qty: 42.5 1RF Rx Instructions: use pea sized amount to fingertip and apply vaginally daily; Print Language: [place] Zealander
[2025-05-29 12:30] VITALS: BP 165/126; PULSE 83; RESP 18; TEMP 36.9; O2SAT 97; BMI 28.4
[2025-05-29 13:08] LABS: MANUAL DIFF FLAG NO
[2025-05-29 13:09] LABS: Hematocrit 41.9 % (37.0-47.0); Hemoglobin 13.4 g/dl (12.0-16.0); Imm Gran Abs Auto 0.03 X10*3/uL (0.00-0.03); Imm Gran Pct Auto 0.3 % (0.0-0.4); Lymphocytes Absolute Auto 3.2 X10*3/uL (1.2-4.9); Mean Corpuscular HGB Conc 32.0 g/dl (31.0-35.0); Mean Corpuscular Hemoglobin 26.2 pg (27.0-33.0); Mean Corpuscular Volume 82.0 fL (80.0-98.0); NRBC Abs Auto 0.000 X10*3/uL (0.0-0.012); NRBC Pct Auto 0.0 /100WBC (0.0-0.2); Platelet Count 288 X10*3/uL (160-400); Red Blood Count 5.11 X10*6/uL (4.20-5.50); White Blood Count 10.1 X10*3/uL (4.8-10.8)
[2025-05-29 13:27] LABS: Alanine Aminotransferase 24 U/L (0-31); Albumin Level 4.5 g/dL (3.5-5.0); Alkaline Phosphatase 97 U/L (39-117); Anion Gap 12 (12-20); Aspartate Amino Transferase 20 U/L (5-31); Blood Urea Nitrogen 18 mg/dL (9-16); Calcium 10.3 mg/dL (8.4-10.2); Carbon Dioxide 30 mmol/L (22-29); Chloride 104 mmol/L (96-108); Creatinine Clr Calc Pharmacy 54.4; Estimated Glomerular Filt Rate 56; Potassium 3.4 mmol/L (3.3-5.1); Sodium 143 mmol/L (135-145); Total Protein 7.4 g/dL (6.5-8.0)
[2025-05-29 14:09] LABS: Resp Syncy Virus RNA Qual PCR NEGATIVE (Negative); SARS COV2 PCR INHOUSE NEGATIVE (Negative)
[2025-05-29 17:18] VITALS: BP 170/70; PULSE 87; RESP 18; TEMP 37.1; O2SAT 95
--- NOTE | 2025-05-29 17:19 | PC.NURSE ---
plans on taking prescribed HTN med in [place].
[2025-05-29 18:23] VITALS: BP 149/87; PULSE 75; RESP 19; TEMP 36.2; O2SAT 98
[2025-05-29] MEDS: Lidocaine HCl 1%/Epi 1:100,000 20 ML VIAL 10 ML INFILTRATI (19:29)
[2025-05-29 21:06] VITALS: BP 138/80; PULSE 75; RESP 18; TEMP 36.5; O2SAT 96
[2025-05-29 21:22] VITALS: BP 138/80; PULSE 75; RESP 18; TEMP 36.5; O2SAT 96
== END 2025-05-29 23:17 | disposition home or self-care (01) ==
PROVIDERS: Physician Assistant Medical; Emergency Provider Emergency Medicine; PCP Internal Medicine
DX: R51.9 Headache, unspecified (principal); F17.210 Nicotine dependence, cigarettes, uncomplicated; Z03.818 Encounter for observation for suspected exposure to other biological agents ruled out; J45.909 Unspecified asthma, uncomplicated
CPT/HCPCS: 70450; 80053; 85025; 87637; 99283; J2004; J8540

== ENCOUNTER → 2025-05-29 19:01 | Outpatient (BNV) | payer OTHER, SELFPAY | PROVIDERS: Emergency Provider Emergency Medicine; PCP Internal Medicine; Visit Provider Radiology Diagnostic Radiology | DX: R51.9 Headache, unspecified (principal) | CPT/HCPCS: 70450 ==

== ENCOUNTER 2025-06-02 16:25 | Outpatient (AMB) | payer OTHER, SELFPAY ==
--- NOTE | 2025-06-02 16:32 | MHC.PC.OV ---
Vital Signs 06/02/25 16:33 Height 5 ft 1 in Weight 150 lb 8 oz BMI 28.4 BP 150/80 H Blood Pressure Location Lt brachial Position Sitting Pulse 117 H Pulse Source Pulse Oximeter Temp 97.1 F Temp Source Temporal Artery Scan Pulse Oximetry (%) 96 Oxygen Delivery Method Room Air Intake Visit Reasons: Migraine Intake Note: Patient is here to follow up on Migraine. 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: Not Required per policy Accompanied by: Self / Same As Patient Allergies amitriptyline Allergy (Intermediate, Verified 06/02/25 17:02) headache ibuprofen (From Motrin) Allergy (Intermediate, Verified 06/02/25 17:02) ITCHY RASH shrimp Allergy (Mild, Verified 06/02/25 17:02) Unknown cat dander (cats) Allergy (Verified 06/02/25 17:02) Rash seafood Allergy (Verified 06/02/25 17:02) Unknown gabapentin Adverse Reaction (Intermediate, Verified 06/02/25 17:02) vomiting Medication List - Last Reconciled 06/02/25 by Neyda Peres MD acetaminophen 1,000 mg (2 x 500 mg) PO TID PRN albuterol sulfate 90 mcg/actuation 2 puffs inhalation Q4-6H PRN albuterol sulfate 2.5 mg (3 mL) inhalation Q4-6H PRN blood pressure monitor (Blood Pressure Kit) As directed cane As directed cholecalciferol (vitamin D3) 50 mcg PO DAILY 90 days clonazepam 0.5 mg PO BID PRN 30 days cyclobenzaprine 10 mg PO BEDTIME dicyclomine 20 mg PO TID diphenhydramine HCl 50 mg (2 x 25 mg) PO Q6H PRN epinephrine (EpiPen 2-Pantera) 0.3 mg (0.3 mL) IM Q10M PRN estradiol 0.01%(0.1mg/gram) (Estrace) use pea sized amount to fingertip and apply vaginally daily; famotidine 20 mg PO DAILY PRN fexofenadine (Gemini Allergy) 180 mg PO DAILY fluticasone furoate-vilanterol 200-25 mcg/dose (Breo Ellipta) 1 inh inhalation DAILY 30 days fluticasone propionate 50 mcg/actuation (Flonase Allergy Relief) 2 sprays intranasal DAILY PRN cpunmxnnywm-xtojtflbl-iierkopi 200-62.5-25 mcg (Trelegy Ellipta) 1 inh inhalation DAILY 30 days galcanezumab-gnlm (Emgality Pen) 120 mg subcut Q30D 30 days hydrochlorothiazide 25 mg PO DAILY 90 days hydrocortisone 2.5% 1 appl topical BID-TID PRN hydroxyzine HCl 50 mg PO Q8H PRN lactulose Take 15-30mL daily for constipation. loratadine (Claritin) 10 mg PO DAILY 30 days magnesium oxide 400 mg PO BEDTIME 30 days meclizine 25 mg PO TID menthol 0.1% (Eucerin Itch Relief) 1 ea topical BID 14 days metoclopramide HCl 10 mg PO Q6H PRN mometasone-formoterol 200-5 mcg/actuation (Dulera) 2 puffs inhalation Q12H 30 days naloxone 2 mg (0.08 mL) subcut Q3M 30 days nebulizers (AeroEInception Sciencesipse II Nebulizer) As directed olopatadine 0.7% (Pataday Once Daily Relief) 1 drp ophthalmic (eye) Q24H PRN ondansetron 4 mg PO Q8H PRN paroxetine HCl 10 mg PO DAILY riboflavin (vitamin B2) 400 mg PO DAILY 30 days rimegepant (Nurtec ODT) 75 mg PO ONCE PRN 30 days MDD 1 tab sennosides-docusate sodium 8.6-50 mg (Senna Plus) 2 tab-caps (2 x 8.6-50 mg) PO BEDTIME tramadol 100 mg (2 x 50 mg) PO BID PRN 30 days umeclidinium 62.5 mcg/actuation (Incruse Ellipta) 1 inh inhalation DAILY 30 days underpads (Bed Underpads) As directed walker To be use lifetime zolpidem (Ambien) 5 mg PO BEDTIME Tobacco use date assessed: 06/02/25 Dental Screening Dental Screen Date: 03/23/25 HPI HPI Comments History of Present Illness Details The patient is a 54 year old female presenting for follow-up after recent emergency room visits. She has visited the emergency room three times recently due to feeling unwell. Her symptoms included difficulty breathing, migraine, and elevated blood pressure. She has a history of multiple medication intolerances, including nausea and vomiting with gabapentin, rash with ibuprofen, and headaches with amitriptyline. Emgality for migraines caused abdominal issues. She reports currently using an inhaler (Brio or Trelegy), vitamin D, clonazepam, Flexeril, dicyclomine, paroxetine, hydrochlorothiazide, Claritin, meclizine, and metoclopramide. She stopped taking a magnesium supplement after being told she needed a specific type, magnesium glycinate. During a recent emergency visit, she underwent a head CT scan, which was normal, and lab work showed normal potassium levels. A previous head CT in September was also normal. She reports feeling depressed and weak. BP elevated and I will change hydrochlorothiazide to amlodipine. [facility] Medical History Dysphagia Moderate recurrent major depression Left sided abdominal pain Generalized pruritus Smoking 1/2 pack a day or less Asthma-COPD overlap syndrome Acute maxillary sinusitis Otitis externa Hospital discharge follow-up Microscopic hematuria Physical exam Goiter Blurry vision Tobacco dependence Has daytime drowsiness Pulmonary nodules Dyspnea Hand pain Skin lesion Leg pain, bilateral Dyslipidemia Epigastric pain Essential hypertension Cervical cancer screening GERD (gastroesophageal reflux disease) HTN (hypertension) Migraine Anxiety Depression Right lower quadrant pain Fibromyalgia Surgical History Previous section History of breast lump/mass excision History of lithotripsy H/O LEEP H/O tubal ligation Family History Father Myocardial infarction Mother Lung cancer Brother Liver cancer Maternal Grandfather Stomach cancer Maternal Grandmother No problems noted. Social History Housing: Apartment Alcohol intake: never Patient Tobacco Use Status: Current someday Tobacco user Tobacco use type: Cigarette Cigarette Packs Per Day: 0.25 Cigarettes Per Day: 3 e-Cigarette/Vaping Use: Never Used Second Hand Smoke Exposure: Yes service: No Current occupational status: disabled Gender identity: Female Cognitive needs: No Hearing needs: No Vision needs: No Female Reproductive History Menstrual Age of Menarche: 9 Questionnaire Thrive Questionnaire Date Thrive assessed: 10/28/24 I am a: Patient What is your living situation today?: I choose not to answer this question Within the past 12 months, did the food you bought not last and you didn't have the money to get more?: Sometimes True Within the past 12 months, did you worry whether your food would run out before you got money to buy more?: Sometimes True Do you have trouble paying for medicines?: No Do you have trouble getting transportation to medical appointments?: Yes Do you have trouble paying your heating and electricity bill?: No Do you have trouble taking care of your child, family member or friend?: No Do you have trouble with day-to-day activities such as bathing, preparing meals, shopping, managing finances, etc.?: Yes Are you currently unemployed and looking for a job?: No Are you interested in more education?: No Currently or been in a relationship where the following occur: No concerns reported THRIVE Score: 3 JOHN-7 AMB Questionnaire JOHN-7 Date JOHN - 7 assessed: 10/28/24 Source: Developed by Drs. Sylvester Merlos, Eve Mcclelland, Joby King and colleagues, with an educational pili from [employer]. Review of Systems Const All systems reviewed & are unremarkable except as noted in HPI and below Card Denies chest pain at rest, Denies chest pain with activity, Denies edema, Denies irregular heart rhythm, Denies claudication, Denies dyspnea, Denies dyspnea on exertion, Denies orthopnea, Denies paroxysmal nocturnal dyspnea and Denies slow heart rate Resp Denies cough, Denies dyspnea and Denies dyspnea on exertion GI Denies abdominal pain, Denies change in bowel habits, Denies excessive flatus, Denies nausea and Denies vomiting Physical exam (Primary Care) Vital Signs: Last Vital Signs Temp 97.1 F 06/02/25 16:33 Pulse 117 H 06/02/25 16:33 BP 150/80 H 06/02/25 16:33 Pulse Ox 96 06/02/25 16:33 Oxygen Delivery Method Room Air 06/02/25 16:33 BMI result Body Mass Index 28.4 Tobacco/Smoking Status: Tobacco use Status Tobacco use date assessed 06/02/25 06/02/25 16:38 Patient Tobacco Use Status Current someday Tobacco 06/02/25 16:38 Tobacco use type Cigarette 06/02/25 16:38 e-Cigarette/Vaping Use Never Used 06/02/25 16:38 Thrive Assessment: Date of Thrive Assessment Date Thrive assessed 10/28/24 06/02/25 16:38 Currently or been in a relationship where the following occur: No concerns reported Resp Effort & Inspection: normal respiratory effort Auscultation: clear to auscultation bilaterally Cardio Jugular venous distension: no JVD Rate: regular rate Rhythm: regular rhythm Heart sounds: S1 normal heart sound present and S2 normal heart sound present Extrem General: Yes full ROM Coding Level of Care Code Add On Preventative Visit Only Diagnoses Moderate recurrent major depression F33.1 Anxiety F41.9 Essential hypertension I10 Migraine G43.909 Migraine type: ophthalmoplegic Time Spent (min) 25 Assessment & Plan Assessment & Plan (1) Moderate recurrent major depression: Code(s): F33.1 - Major depressive disorder, recurrent, moderate Category: Medical (2) Anxiety: Code(s): F41.9 - Anxiety disorder, unspecified Category: Medical (3) Essential hypertension: Code(s): I10 - Essential (primary) hypertension Category: Medical (4) Migraine: Code(s): G43.909 - Migraine, unspecified, not intractable, without status migrainosus Category: Medical Qualifiers: Migraine type: ophthalmoplegic Plan Plan 1. Migraines She was advised to take magnesium glycinate 300 mg at night. It was noted that finding pure magnesium glycinate can be difficult, as many products are magnesium complexes. 2. Hypertension Her blood pressure medication regimen will be reviewed. She takes hydrochlorothiazide for her blood pressure. Her blood pressure will be rechecked at the conclusion of the visit. 3. Depression with Anxiety Continue Paroxetine and benzodiazepines. 4. Acute Respiratory Symptoms For the patient's respiratory symptoms, a course of amoxicillin and prednisone will be prescribed to see if she feels better. Medications: New amoxicillin-pot clavulanate 875-125 mg 1 tab PO BID 14 tabs 0RF 7 days magnesium glycinate 300 mg (3 x 100 mg magnesium) PO BEDTIME 270 caps 1RF 90 days prednisone Take 4 tabs for 2 days, then 3 tabs for 2 days, then 2 tabs for 2 days, then 1 tab for 2 days 10 mg PO DIRECTED 20 tabs 0RF 8 days amlodipine 2.5 mg PO DAILY 90 tabs 1RF 90 days I10 - Essential (primary) hypertension Refilled clonazepam 0.5 mg PO BID PRN 60 tabs 1RF anxiety 30 days Discontinued magnesium oxide may hold for loose stools Discontinued Reason: Patient Completed Course 400 mg PO BEDTIME 30 days 30 tabs 6RF hydrochlorothiazide Discontinued Reason: Patient Completed Course 25 mg PO DAILY 90 days 90 tabs 1RF
[2025-06-02 16:33] VITALS: BP 150/80; PULSE 117; TEMP 36.2; O2SAT 96; BMI 28.4
== END 2025-06-02 17:24 | disposition home or self-care (01) ==
LOC: HO.HMCH 16:25
PROVIDERS: PCP Internal Medicine; Visit Provider Internal Medicine
DX: F33.1 Major depressive disorder, recurrent, moderate (principal); F41.9 Anxiety disorder, unspecified; I10 Essential (primary) hypertension; G43.909 Migraine, unspecified, not intractable, without status migrainosus

== ENCOUNTER → 2025-06-02 16:25 | Outpatient (BNVA) | payer OTHER, SELFPAY | PROVIDERS: PCP Internal Medicine; Visit Provider Internal Medicine | DX: Z51.89 Encounter for other specified aftercare (principal); G43.B0 Ophthalmoplegic migraine, not intractable; I10 Essential (primary) hypertension; F41.9 Anxiety disorder, unspecified; F33.1 Major depressive disorder, recurrent, moderate; F17.210 Nicotine dependence, cigarettes, uncomplicated | CPT/HCPCS: 99212 ==

== ENCOUNTER 2025-06-03 21:13 | Emergency (ER) | payer OTHER, SELFPAY ==
--- NOTE | ~2025-06-03 | XR_ITS ---
CLINICAL HISTORY: cp sob cough 1 view chest x-ray Comparison: CR - XR CHEST 2V - 02/12/25 01:09 EDT CR - XR CHEST 1V - 12/27/24 22:02 EDT Findings: Right upper peripheral lung calcified granuloma unchanged. No consolidation or effusion. Normal size heart. No acute fracture. IMPRESSION: 1. No acute findings. This document has been electronically signed by: Radha Emery MD on 06/03/2025 23:29:10
--- NOTE | 2025-06-03 21:14 | ECG_ITS ---
Test Reason : CP Blood Pressure : */* mmHG Vent. Rate : 99 BPM Atrial Rate : 99 BPM P-R Int : 134 ms QRS Dur : 68 ms QT Int : 344 ms P-R-T Axes : 48 13 14 degrees QTcB Int : 441 ms Normal sinus rhythm Possible Left atrial enlargement Borderline ECG When compared with ECG of 11-Feb-2025 19:52, No significant change was found Referred By: Generic ED Physician Electronically Signed By: Harry Suárez
[2025-06-03 21:18] VITALS: BP 151/94; PULSE 106; RESP 16; TEMP 36.6; O2SAT 97; BMI 28.7
[2025-06-03 21:40] LABS: MANUAL DIFF FLAG NO
[2025-06-03 21:53] LABS: Hematocrit 41.2 % (37.0-47.0); Hemoglobin 13.6 g/dl (12.0-16.0); Imm Gran Abs Auto 0.06 X10*3/uL (0.00-0.03); Imm Gran Pct Auto 0.5 % (0.0-0.4); Lymphocytes Absolute Auto 1.9 X10*3/uL (1.2-4.9); Mean Corpuscular HGB Conc 33.0 g/dl (31.0-35.0); Mean Corpuscular Hemoglobin 26.7 pg (27.0-33.0); Mean Corpuscular Volume 80.9 fL (80.0-98.0); NRBC Abs Auto 0.000 X10*3/uL (0.0-0.012); NRBC Pct Auto 0.0 /100WBC (0.0-0.2); Platelet Count 331 X10*3/uL (160-400); Red Blood Count 5.09 X10*6/uL (4.20-5.50); White Blood Count 11.2 X10*3/uL (4.8-10.8)
[2025-06-03 21:56] LABS: Alanine Aminotransferase 27 U/L (0-31); Albumin Level 4.6 g/dL (3.5-5.0); Alkaline Phosphatase 105 U/L (39-117); Anion Gap 15 (12-20); Aspartate Amino Transferase 21 U/L (5-31); Blood Urea Nitrogen 25 mg/dL (9-16); Calcium 9.8 mg/dL (8.4-10.2); Carbon Dioxide 23 mmol/L (22-29); Chloride 105 mmol/L (96-108); Creatinine Clr Calc Pharmacy 55.2; Estimated Glomerular Filt Rate 57; Magnesium 1.9 mg/dL (1.6-2.6); Potassium 3.6 mmol/L (3.3-5.1); Sodium 139 mmol/L (135-145); Total Protein 7.6 g/dL (6.5-8.0)
[2025-06-03 22:04] LABS: Troponin-I High Sensitivity < 2.7 ng/L (<3.5-17.0)
[2025-06-03 22:18] LABS: Resp Syncy Virus RNA Qual PCR NEGATIVE (Negative); SARS COV2 PCR INHOUSE NEGATIVE (Negative)
[2025-06-03 22:35] VITALS: PULSE 80
[2025-06-03 23:28] VITALS: BP 136/91; PULSE 72; RESP 17; TEMP 36.7; O2SAT 97
--- NOTE | 2025-06-03 23:58 | ED.CHESTPAIN ---
HPI - Chest Pain General Chief Complaint: Chest Pain Stated Complaint: cp Time Seen by Provider: 06/03/25 23:49 Source: patient Mode of arrival: ambulatory Limitations: no limitations History of Present Illness ED Provider: Dr. Londono HPI narrative: 54-year-old female history of hyperlipidemia, hypertension presented hospital today for evaluation of chest pain for the past 5 days. She states she has been having episode of tachycardia and shortness of breath and between. She describes a chest tightness. Patient's currently complaining of slight chest pain at this time. No cough no fever. Related Data Previous Rx's ?Medication ?Instructions ?Recorded cane #1 ea 09/06/22 acetaminophen 500 mg tablet 1,000 mg (2 x 500 mg) PO TID PRN 10/07/22 pain #20 tabs underpads (Bed Underpads) #100 ea 03/28/23 walker #1 ea 03/28/23 naloxone 10 mg/0.4 mL 2 mg (0.08 mL) subcut Q3M 30 days 01/09/24 injection,auto-injector #4 mL nebulizers (AeroEclipse II #1 ea 04/03/24 Nebulizer) riboflavin (vitamin B2) 400 mg 400 mg PO DAILY 30 days #30 tabs 04/16/24 tablet cholecalciferol (vitamin D3) 50 50 mcg PO DAILY 90 days #90 tabs 04/24/24 mcg (2,000 unit) tablet olopatadine 0.7 % eye drops 1 drp ophthalmic (eye) Q24H PRN 08/11/24 (Pataday Once Daily Relief) itching #5 mL albuterol sulfate 90 mcg/actuation 2 puff inhalation Q4-6H PRN 10/03/24 aerosol inhaler shortness of breath or wheezing #6.7 grams diphenhydramine HCl 25 mg capsule 50 mg (2 x 25 mg) PO Q6H PRN 10/06/24 allergic reaction #20 caps epinephrine 0.3 mg/0.3 mL 0.3 mg (0.3 mL) IM Q10M PRN 10/06/24 injection, auto-injector (EpiPen anaphylaxis #2 ea 2-Pantera) menthol 0.1 % lotion (Eucerin Itch 1 ea topical BID 14 days #250 mL 10/06/24 Relief) fexofenadine 180 mg tablet 180 mg PO DAILY #90 tabs 10/09/24 (Gemini Allergy) hydrocortisone 2.5 % topical 1 appl topical BID-TID PRN itching 10/09/24 ointment #454 grams rimegepant 75 mg disintegrating 75 mg PO ONCE PRN migraine 10/24/24 tablet (Nurtec ODT) headache 30 days #15 tabs blood pressure monitor (Blood #1 ea 11/21/24 Pressure Kit) meclizine 25 mg tablet 25 mg PO TID #20 tabs 12/03/24 paroxetine HCl 10 mg tablet 10 mg PO DAILY #30 tabs 12/18/24 fluticasone propionate 50 2 spray intranasal DAILY PRN nasal 12/27/24 mcg/actuation nasal congestion #16 grams spray,suspension (Flonase Allergy Relief) lactulose 10 gram/15 mL oral 10 g (15 mL) PO .COMPLEX 01/28/25 solution constipation #3,785 mL sennosides 8.6 mg-docusate sodium 2 tab-cap (2 x 8.6-50 mg) PO 01/28/25 50 mg capsule (Senna Plus) BEDTIME #180 caps fluticasone fur. 200 mcg-umeclid 1 inh inhalation DAILY 30 days #60 02/03/25 62.5 mcg-vilant 25 mcg ea inhalat.powder (Trelegy Ellipta) loratadine 10 mg tablet (Claritin) 10 mg PO DAILY 30 days #30 tabs 02/03/25 fluticasone furoate 200 1 inh inhalation DAILY 30 days #60 02/04/25 mcg-vilanterol 25 mcg/dose ea inhalation powder (Breo Ellipta) umeclidinium 62.5 mcg/actuation 1 inh inhalation DAILY 30 days #30 02/04/25 blister powder for inhalation ea (Incruse Ellipta) zolpidem 5 mg tablet (Ambien) 5 mg PO BEDTIME #30 tabs 02/10/25 albuterol sulfate 2.5 mg/3 mL 2.5 mg (3 mL) inhalation Q4-6H PRN 02/12/25 (0.083 %) solution for nebulization bronchospasm #75 mL galcanezumab-gnlm 120 mg/mL 120 mg subcut Q30D 30 days #1 mL 02/13/25 subcutaneous pen injector (Emgality Pen) dicyclomine 20 mg tablet 20 mg PO TID #10 tabs 03/03/25 ondansetron 4 mg disintegrating 4 mg PO Q8H PRN nausea and 03/03/25 tablet vomiting #10 tabs hydroxyzine HCl 50 mg tablet 50 mg PO Q8H PRN nausea and 03/05/25 vomiting #90 tabs estradiol 0.01% (0.1 mg/gram) See Rx Instructions vaginal DAILY 03/23/25 vaginal cream (Estrace) #42.5 grams mometasone-formoterol HFA 200 2 puff inhalation Q12H 30 days #13 04/14/25 mcg-5 mcg/actuation aerosol grams inhaler (Dulera) famotidine 20 mg tablet 20 mg PO DAILY PRN GERD #90 tabs 04/28/25 tramadol 50 mg tablet 100 mg (2 x 50 mg) PO BID PRN 05/05/25 severe pain (scale score 7-10) 30 days #120 tabs cyclobenzaprine 10 mg tablet 10 mg PO BEDTIME #14 tabs 05/13/25 metoclopramide HCl 10 mg tablet 10 mg PO Q6H PRN nausea and 05/29/25 vomiting #7 tabs amlodipine 2.5 mg tablet 2.5 mg PO DAILY 90 days #90 tabs 06/02/25 amoxicillin 875 mg-potassium 1 tab PO BID 7 days #14 tabs 06/02/25 clavulanate 125 mg tablet clonazepam 0.5 mg tablet 0.5 mg PO BID PRN anxiety 30 days 06/02/25 #60 tabs magnesium glycinate 300 mg (3 x 100 mg magnesium) PO 06/02/25 BEDTIME 90 days #270 caps prednisone 10 mg tablet 10 mg PO DIRECTED 8 days #20 06/02/25 tabs lorazepam 0.5 mg tablet (Ativan) 0.5 mg PO BEDTIME PRN sleep #10 06/04/25 tabs Allergies Allergy/AdvReac Type Severity Reaction Status Date / Time amitriptyline Allergy Intermediate headache Verified 06/03/25 21:20 ibuprofen (From Motrin) Allergy Intermediate ITCHY RASH Verified 06/03/25 21:20 shrimp Allergy Mild Unknown Verified 06/03/25 21:20 cat dander (cats) Allergy Rash Verified 06/03/25 21:20 seafood Allergy Unknown Verified 06/03/25 21:20 gabapentin AdvReac Intermediate vomiting Verified 06/03/25 21:20 Review of Systems Review of Systems: Pertinent review of systems as mentioned in [facility]. All other system otherwise negative. [facility] Past Medical History [facility] Narrative: Medical history as mentioned in [facility] Medical History Dysphagia Moderate recurrent major depression Left sided abdominal pain Generalized pruritus Smoking 1/2 pack a day or less Asthma-COPD overlap syndrome Acute maxillary sinusitis Otitis externa Hospital discharge follow-up Microscopic hematuria Physical exam Goiter Blurry vision Tobacco dependence Has daytime drowsiness Pulmonary nodules Dyspnea Hand pain Skin lesion Leg pain, bilateral Dyslipidemia Epigastric pain Essential hypertension Cervical cancer screening GERD (gastroesophageal reflux disease) HTN (hypertension) Migraine Anxiety Depression Right lower quadrant pain Fibromyalgia Surgical History Previous section History of breast lump/mass excision History of lithotripsy H/O LEEP H/O tubal ligation Family History Family History Father Myocardial infarction Mother Lung cancer Brother Liver cancer Maternal Grandfather Stomach cancer Maternal Grandmother No problems noted. Social History Social History Housing: Apartment Alcohol intake: never Patient Tobacco Use Status: Current someday Tobacco user Tobacco use type: Cigarette Cigarette Packs Per Day: 0.25 Cigarettes Per Day: 3 Smoked in Last 30 Days: Yes e-Cigarette/Vaping Use: Never Used Second Hand Smoke Exposure: Yes Use of substances other than those prescribed or required for medical reasons: No Advance Directives: No Advance Directives Information Provided: Yes service: No Current occupational status: disabled Gender identity: Female Cognitive needs: No Hearing needs: No Vision needs: No Physical Exam Exam: Exam: General: Pleasant, no distress, interacting appropriately Head: Normacephalic, atraumatic ENT: oral mucosa moist, neck supple, no tracheal deviation Cardiovascular: regular rate, regular rhythm, no murmurs, rubbing, gallops Respiratory: CTAB, no wheeze, rales, rhonchi Neurological: Awake and alert, no facial droop noted Skin: Warm and dry Psychiatric: Appropriate mood and thoughts Vital Signs: Vital Signs: Last Vital Signs Temp 98.1 F 06/03/25 23:28 Pulse 72 06/03/25 23:28 Resp 17 06/03/25 23:28 BP 136/91 H 06/03/25 23:28 Pulse Ox 97 06/03/25 23:28 O2 Del Method Room Air 06/03/25 23:28 BMI result Body Mass Index 28.7 Medical Decision Making Medical Decision Making [facility] Narrative: 54-year-old female presented hospital today for evaluation of chest tightness tachycardia and shortness of breath. Patient's chest x-ray shows right-sided granuloma this was discussed with the patient. She is aware of it she has been following Dr. Marinelli for this. Troponin is negative EKG is unremarkable. Patient has a heart score of 3. Low risk chest pain. Patient will be discharged. Encouraged the patient to follow up with For a stress test or Holter monitor. Patient states she has not been sleeping well. She has not slept much in the past 5 days. She has been extra anxious as well. None of the medicines she has been taking has been helping. She has been taking Benadryl and melatonin with no alleviation. Differential Diagnosis Differential Diagnoses: The differential diagnosis associated with the presentation includes ACS, STEMI, cardiac arrhythmia, anxiety Lab Data [facility] Lab Attestation statement: I reviewed the patient's lab results. 06/03/25 21:35 06/03/25 21:35 Labs: Lab Results 06/03/25 Range/Units 21:35 WBC 11.2 H (4.8-10.8) X10*3/uL RBC 5.09 (4.20-5.50) X10*6/uL Hgb 13.6 (12.0-16.0) g/dl Hct 41.2 (37.0-47.0) % MCV 80.9 (80.0-98.0) fL MCH 26.7 L (27.0-33.0) pg MCHC 33.0 (31.0-35.0) g/dl RDW 14.0 (11.0-16.0) % Plt Count 331 (160-400) X10*3/uL MPV 10.4 (9.4-12.3) fL Immature Gran % (Auto) 0.5 H (0.0-0.4) % Neut % (Auto) 78.1 H (45-73) % Lymph % (Auto) 17.1 L (20-40) % [place] % (Auto) 3.8 (2-11) % Eos % (Auto) 0.2 (0-4) % Baso % (Auto) 0.3 (0-2) % Lymph # (Auto) 1.9 (1.2-4.9) X10*3/uL [place] # (Auto) 0.4 (0.1-1.2) X10*3/uL Eos # (Auto) 0.0 (0.0-0.4) X10*3/uL Baso # (Auto) 0.0 (0.0-0.2) X10*3/uL Abs Immat Gran (auto) 0.06 H (0.00-0.03) X10*3/uL Absolute Neuts (auto) 8.8 H (2.0-8.3) x10*3/uL Absolute Nucleated RBC 0.000 (0.0-0.012) X10*3/uL Nucleated RBC % (auto) 0.0 (0.0-0.2) /100WBC Sodium 139 (135-145) mmol/L Potassium 3.6 (3.3-5.1) mmol/L Chloride 105 (96-108) mmol/L Carbon Dioxide 23 (22-29) mmol/L Anion Gap 15 (12-20) BUN 25 H (9-16) mg/dL Creatinine 1.01 (0.5-1.4) mg/dL Estim Creat Clear Calc 55.2 Estimated GFR 57 Random Glucose 115 (60-115) mg/dL Calcium 9.8 (8.4-10.2) mg/dL Magnesium 1.9 (1.6-2.6) mg/dL Total Bilirubin 0.5 (0.0-1.0) mg/dL AST 21 (5-31) U/L ALT 27 (0-31) U/L Alkaline Phosphatase 105 (39-117) U/L Troponin I High Sens < 2.7 (<3.5-17.0) ng/L Total Protein 7.6 (6.5-8.0) g/dL Albumin 4.6 (3.5-5.0) g/dL Influenza Type A (PCR) NEGATIVE (Negative) Influenza Type B (PCR) NEGATIVE (Negative) RSV RNA Qual (PCR) NEGATIVE (Negative) SARS-CoV-2 RNA (RT-PCR) NEGATIVE (Negative) Independent Interpretation I performed an independent interpretation of an: EKG and Plain X-Ray Radiology Impression Discussion of test interpretation with radiology: I have reviewed the radiologist's reading. Scores Heart Score History: -0- slightly suspicious ECG: -0- normal Age: -1- >45 - <65 Risk factory: -2- 3 or more risk factors or treated atherosclerosis Troponin: -0- < or = normal limit Score: 3 Risk: 1.7% Discharge Plan Discharge Clinical Impression: Atypical chest pain Patient Disposition: Home, Self-Care Instructions: Panic Attack (ED) Additional Instructions: Discussed with your doctor about a stress test or holter monitor. Prescriptions: New lorazepam [Ativan] 0.5 mg tablet 0.5 mg PO BEDTIME PRN (Reason: sleep) Qty: 10 0RF No Action (DME) cane Device See Rx Instructions .Route Qty: 1 0RF Rx Instructions: As directed (DME) walker Misc See Rx Instructions .Route Qty: 1 0RF Rx Instructions: To be use lifetime (DME) underpads [Bed Underpads] Pad See Rx Instructions .Route Qty: 100 0RF Rx Instructions: As directed naloxone 10 mg/0.4 mL auto-injector 2 mg subcut Q3M 30 Days Qty: 4 0RF Rx Instructions: until desired response riboflavin (vitamin B2) 400 mg tablet 400 mg PO DAILY 30 Days Qty: 30 6RF cholecalciferol (vitamin D3) 50 mcg (2,000 unit) tablet 50 mcg PO DAILY 90 Days Qty: 90 1RF Nurtec ODT 75 mg tablet,disintegrating 75 mg PO ONCE MDD 1 tab PRN (Reason: migraine headache) 30 Days Qty: 15 6RF Rx Instructions: Prior authorization approved through 04/22/2025 (DME) blood pressure monitor [Blood Pressure Kit] Kit See Rx Instructions .ROUTE .MEDSUPPLY Qty: 1 0RF Rx Instructions: As directed Incruse Ellipta 62.5 mcg/actuation blister with device 1 inh inhalation DAILY 30 Days Qty: 30 11RF fluticasone furoate-vilanterol [Breo Ellipta] 200-25 mcg/dose blister with device 1 inh inhalation DAILY 30 Days Qty: 60 11RF Emgality Pen 120 mg/mL pen injector 120 mg subcut Q30D 30 Days Qty: 1 6RF Rx Instructions: Maintenance dose of 120 mg subcu q.month. [place] APPROVED 12/04/24-06/05/25 hydroxyzine HCl 50 mg tablet 50 mg PO Q8H PRN (Reason: nausea and vomiting) Qty: 90 1RF famotidine 20 mg tablet 20 mg PO DAILY PRN (Reason: GERD) Qty: 90 2RF Rx Instructions: Take one tablet as needed for acid reflux tramadol 50 mg tablet 100 mg PO BID PRN (Reason: severe pain (scale score 7-10)) 30 Days Qty: 120 0RF acetaminophen 500 mg tablet 1,000 mg PO TID PRN (Reason: pain) Qty: 20 0RF metoclopramide HCl 10 mg tablet 10 mg PO Q6H PRN (Reason: nausea and vomiting) Qty: 7 0RF albuterol sulfate 90 mcg/actuation HFA aerosol inhaler 2 puff inhalation Q4-6H PRN (Reason: shortness of breath or wheezing) Qty: 6.7 0RF meclizine 25 mg tablet 25 mg PO TID Qty: 20 0RF fluticasone propionate [Flonase Allergy Relief] 50 mcg/actuation spray,suspension 2 spray intranasal DAILY PRN (Reason: nasal congestion) Qty: 16 0RF Rx Instructions: administer into each nostril albuterol sulfate 2.5 mg /3 mL (0.083 %) solution for nebulization 2.5 mg inhalation Q4-6H PRN (Reason: bronchospasm) Qty: 75 0RF dicyclomine 20 mg tablet 20 mg PO TID Qty: 10 0RF ondansetron 4 mg tablet,disintegrating 4 mg PO Q8H PRN (Reason: nausea and vomiting) Qty: 10 0RF diphenhydramine HCl 25 mg capsule 50 mg PO Q6H PRN (Reason: allergic reaction) Qty: 20 0RF epinephrine [EpiPen 2-Pantera] 0.3 mg/0.3 mL auto-injector 0.3 mg IM Q10M PRN (Reason: anaphylaxis) Qty: 2 0RF Rx Instructions: for 3 doses Eucerin Itch Relief 0.1 % lotion 1 ea topical BID 14 Days Qty: 250 0RF hydrocortisone 2.5 % ointment 1 appl topical BID-TID PRN (Reason: itching) Qty: 454 1RF fexofenadine [Gemini Allergy] 180 mg tablet 180 mg PO DAILY Qty: 90 1RF Dulera 200-5 mcg/actuation HFA aerosol inhaler 2 puff inhalation Q12H 30 Days Qty: 13 11RF cyclobenzaprine 10 mg tablet 10 mg PO BEDTIME Qty: 14 0RF magnesium glycinate 100 mg magnesium capsule 300 mg PO BEDTIME 90 Days Qty: 270 1RF prednisone 10 mg tablet 10 mg PO DIRECTED 8 Days Qty: 20 0RF Rx Instructions: Take 4 tabs for 2 days, then 3 tabs for 2 days, then 2 tabs for 2 days, then 1 tab for 2 days amoxicillin-pot clavulanate 875-125 mg tablet 1 tab PO BID 7 Days Qty: 14 0RF amlodipine 2.5 mg tablet 2.5 mg PO DAILY 90 Days Qty: 90 1RF clonazepam 0.5 mg tablet 0.5 mg PO BID PRN (Reason: anxiety) 30 Days Qty: 60 1RF (DME) nebulizers [AeroEclipse II Nebulizer] Misc See Rx Instructions .Route Qty: 1 0RF Rx Instructions: As directed Pataday Once Daily Relief 0.7 % drops 1 drp ophthalmic (eye) Q24H PRN (Reason: itching) Qty: 5 0RF paroxetine HCl 10 mg tablet 10 mg PO DAILY Qty: 30 2RF loratadine [Claritin] 10 mg tablet 10 mg PO DAILY 30 Days Qty: 30 11RF Trelegy Ellipta 200-62.5-25 mcg blister with device 1 inh inhalation DAILY 30 Days Qty: 60 12RF lactulose 10 gram/15 mL solution 10 g PO .COMPLEX Qty: 3785 0RF Rx Instructions: Take 15-30mL daily for constipation. Senna Plus 8.6-50 mg capsule 2 tab-cap PO BEDTIME Qty: 180 1RF Rx Instructions: Take two tablets at bedtime zolpidem [Ambien] 5 mg tablet 5 mg PO BEDTIME Qty: 30 1RF estradiol [Estrace] 0.01 % (0.1 mg/gram) cream See Rx Instructions vaginal DAILY Qty: 42.5 1RF Rx Instructions: use pea sized amount to fingertip and apply vaginally daily; Print Language: Yakut
== END 2025-06-04 04:25 | disposition home or self-care (01) ==
PROVIDERS: Emergency Provider Student in an Organized Health Care Education/Training Program
DX: R07.89 Other chest pain (principal); I10 Essential (primary) hypertension; R06.02 Shortness of breath; R05.9 Cough, unspecified; Z03.818 Encounter for observation for suspected exposure to other biological agents ruled out
CPT/HCPCS: 36415; 71045; 80053; 83735; 84484; 85025; 87637; 93005; 99283; 99285

== ENCOUNTER → 2025-06-03 21:14 | Outpatient (BNV) | payer OTHER, SELFPAY | PROVIDERS: Emergency Provider Student in an Organized Health Care Education/Training Program; Visit Provider Internal Medicine Cardiovascular Disease | DX: R07.9 Chest pain, unspecified (principal) | CPT/HCPCS: 93010 ==

== ENCOUNTER → 2025-06-03 22:44 | Outpatient (BNV) | payer OTHER, SELFPAY | PROVIDERS: Emergency Provider Student in an Organized Health Care Education/Training Program; Visit Provider Radiology Diagnostic Radiology | DX: R07.9 Chest pain, unspecified (principal); R05.9 Cough, unspecified; R06.02 Shortness of breath | CPT/HCPCS: 71045 ==